=== PATIENT | female | born 1960 ===

== ENCOUNTER 2016-11-28 02:03 | Observation (INO) | payer BC ==
[2016-11-28 02:10] VITALS: BMI 22.6
[2016-11-28] MEDS ORDERED: Morphine 2 mg/ml ISec IVP STA ×2 (02:29→10:58)
[2016-11-28] MEDS ORDERED: Insulin Regular 1 UNITS/0.01 ML ML IVP STA ×2 (02:29→04:30)
[2016-11-28] MEDS ORDERED: Sodium Chloride 0.9% 1,000 ML IV SCH ×2 (02:30→15:00)
--- NOTE | 2016-11-28 02:46 | ED PDOC ---
Arrival/HPI - General Chief Complaint: High Blood Sugar Time Seen by Provider: 11/28/16 02:04 Historian: Patient - History of Present Illness Narrative History of Present Illness (Text): 11/28/16 02:47 A 55 year old female, whose past medical history includes diabetes and gastroparesis, brought in by EMS for abdominal pain with vomiting for one day. Patient also reports high blood sugar level. Patient notes epigastric pain but denies any other complaints at this time. Symptom Onset: Sudden Symptom Course: Unchanged Activities at Onset: Rest Context: Home Past Medical History - Provider Review Nursing Documentation Reviewed: Yes - Infectious Disease Hx of Infectious Diseases: None - Cardiac Hx Hypertension: Yes - Pulmonary Hx Respiratory Disorders: No - Neurological HX Cerebrovascular Accident: Yes (TIA) - HEENT Hx HEENT Disorder: (reading glasses) Hx Cataracts: Yes (bilateral sx) - Renal Hx Renal Disorder: No - Endocrine/Metabolic Hx Diabetes Mellitus Type 1: Yes - Hematological/Oncological Hx Blood Transfusions: Yes Hx Blood Transfusion Reaction: No - Integumentary Other/Comment: 10 wilbert to back of head - Musculoskeletal/Rheumatological Hx Musculoskeletal Disorders: Yes - Gastrointestinal Hx Gastroesophageal Reflux: Yes (had endo; lesions in the esophagus) Other/Comment: Diabetic Gastroparesis - Genitourinary/Gynecological Hx Genitourinary Disorders: No - Psychiatric Hx Psychophysiologic Disorder: Yes Hx Depression: Yes Hx Substance Use: No - Surgical History Other/Comment: Amputation of half the Rt. foot. - Anesthesia Hx Anesthesia: Yes Hx Anesthesia Reactions: No Hx Malignant Hyperthermia: No - Suicidal Assessment Feels Threatened In Home Enviroment: No Family/Social History - Physician Review Nursing Documentation Reviewed: Yes Family/Social History: No Known Family HX Smoking Status: Never Smoked Hx Alcohol Use: No Hx Substance Use: No Allergies/Home Meds Allergies/Adverse Reactions: Allergies No Known Allergies Allergy (Verified 07/13/16 08:06) Home Medications: Home Meds Medication Instructions Recorded Confirmed Lisinopril [Prinivil] 10 mg PO DAILY 09/23/15 11/28/16 Metoclopramide [Reglan] 5 mg PO BID 09/23/15 11/28/16 DULoxetine [Cymbalta] 60 mg PO DAILY 07/13/16 11/28/16 Insulin Lispro [humALOG] 0 units SC AC 07/13/16 11/28/16 Omeprazole 40 mg PO DAILY 07/13/16 11/28/16 chlordiazePOXIDE-Clinidium [Librax 1 cap PO BID 07/13/16 11/28/16 5 MG-2.5 MG] Amitriptyline [Elavil] 1 tab PO DAILY 11/28/16 11/28/16 Atorvastatin [Lipitor] 40 mg PO DAILY 11/28/16 11/28/16 Clopidogrel [Plavix] 75 mg PO DAILY 11/28/16 11/28/16 Furosemide [Lasix] 1 tab PO DAILY 11/28/16 11/28/16 Gabapentin [Neurontin] 100 mg PO TID 11/28/16 11/28/16 Isosorbide Mononitrate [Isosorbide 1 tab PO DAILY 11/28/16 11/28/16 Mononitrate ER] Labetalol [Trandate] 1 tab PO BID 11/28/16 11/28/16 Magnesium Oxide [Magox 400] 400 mg PO DAILY 11/28/16 11/28/16 Midodrine [Proamatine] 2.5 mg PO TID 11/28/16 11/28/16 Potassium Chloride [Klor-Con M10] 10 meq PO DAILY 11/28/16 11/28/16 traMADol [Ultram] 50 mg PO Q6H PRN 11/28/16 11/28/16 Review of Systems - Physician Review All systems were reviewed & negative as marked: Yes - Review of Systems Constitutional: Other (high blood sugar ) Respiratory: absent: SOB Gastrointestinal: Abdominal Pain, Vomiting Physical Exam Vital Signs Reviewed: Yes Vital Signs Temp Pulse Resp BP Pulse Ox 11/28/16 09:08 87 18 151/87 H 97 11/28/16 07:24 99 H 18 181/92 H 97 11/28/16 05:33 99 H 20 111/62 100 11/28/16 04:50 89 18 136/66 94 L 11/28/16 02:14 98.1 F 95 H 18 112/65 100 Temperature: Afebrile Blood Pressure: Normal Pulse: Regular Respiratory Rate: Normal Appearance: Positive for: Well-Appearing, Non-Toxic, Comfortable Pain Distress: None Mental Status: Positive for: Alert and Oriented X 3 Finger Stick Blood Glucose: 500 - Systems Exam Head: Present: Atraumatic, Normocephalic Pupils: Present: PERRL Extroacular Muscles: Present: EOMI Conjunctiva: Present: Normal Mouth: Present: Moist Mucous Membranes Neck: Present: Normal Range of Motion Respiratory/Chest: Present: Clear to Auscultation, Good Air Exchange. No: Respiratory Distress, Accessory Muscle Use Cardiovascular: Present: Regular Rate and Rhythm, Normal S1, S2. No: Murmurs Abdomen: Present: Normal Bowel Sounds. No: Tenderness, Distention, Peritoneal Signs Back: Present: Normal Inspection Upper Extremity: Present: Normal Inspection. No: Cyanosis, Edema Lower Extremity: Present: Normal Inspection. No: Edema Neurological: Present: GCS=15, CN II-XII Intact, Speech Normal Skin: Present: Warm, Dry, Normal Color. No: Rashes Psychiatric: Present: Alert, Oriented x 3, Normal Insight, Normal Concentration Medical Decision Making ED Course and Treatment: 11/28/16 02:42 Impression: A 55 year old female with abdominal pain and vomiting. Differential Diagnosis included but are not limited to: Plan: -- EKG -- chest xray -- labs -- Urinalysis -- Morphine, Protonix, Zofran, IV fluids, Humulin -- Reassess and disposition Prior Visits: Notes and results from previous visits were reviewed. Patient last reported to the emergency department on 08/03/16 for evaluation of possible stroke. Patient admitted to ICU under Dr. Gomez's service. Patient was discharged 08/05/16. Progress Notes:pt still complaining of if pain , medication administered pt became unresponsive , given narcan with improvement =case d/ w dr serna will admit to tele for intractable vomiting uncontrolled dm 12/02/16 20:15 - Lab Interpretations Microbiology Results: Microbiology Results 11/28/16 03:30 Blood-Venous Blood Culture - Preliminary NO GROWTH AFTER 4 DAYS 11/28/16 02:30 Blood-Venous Blood Culture - Preliminary NO GROWTH AFTER 4 DAYS Lab Results: 11/28/16 06:05 11/28/16 06:05 Lab Results 11/28/16 06:05: Sodium 136, Potassium 3.4 L, Chloride 93 L, Carbon Dioxide 29, Anion Gap 17, BUN 37 H, Creatinine 1.1, Est GFR ( Amer) > 60, Est GFR ( Non-Af Amer) 52, Random Glucose 411 H* D, Calcium 9.4 11/28/16 06:05: WBC 16.6 H, RBC 5.31, Hgb 13.9, Hct 40.3, MCV 75.9 L, MCH 26.2, MCHC 34.5, RDW 14.1, Plt Count 228, MPV 10.6, Gran % 85.2 H, Lymph % (Auto) 7.2 L, Ward % (Auto) 7.5 H, Eos % (Auto) 0.0 L, Baso % (Auto) 0.1, Gran # 14.11 H, Lymph # 1.2, Ward # 1.2 H, Eos # 0.0, Baso # 0.01 11/28/16 06:00: Serum Osmolality 330 H 11/28/16 06:00: Procalcitonin 0.17 L 11/28/16 05:40: POC Glucose (mg/dL) 394 H 11/28/16 05:28: pCO2 33 L, pO2 100.0, HCO3 30.2 H, ABG pH 7.57 H, ABG Total CO2 31.2 H, ABG O2 Saturation 95.6, ABG Base Excess 8.0 H, Glucose 410 H*, Lactate 1.6, Chloride 101.0 11/28/16 03:42: POC Glucose (mg/dL) 432 H* 11/28/16 02:55: Sodium 136, Potassium 3.5 L, Chloride 85 L, Carbon Dioxide 31, Anion Gap 24 H, BUN 36 H, Creatinine 1.0, Est GFR ( Amer) > 60, Est GFR ( Non-Af Amer) 58, Random Glucose 600 H*, Calcium 10.4, Total Bilirubin 0.7, AST 23, ALT 25, Alkaline Phosphatase 117, Troponin I 0.02 D, Total Protein 7.6, Albumin 4.6, Globulin 3.1, Albumin/Globulin Ratio 1.5, Lipase 47 11/28/16 02:55: WBC 15.1 H D, RBC 5.57, Hgb 15.3, Hct 43.1, MCV 77.4 L, MCH 27.5 , MCHC 35.5, RDW 13.9, Plt Count 254, MPV 10.5, Gran % 88.9 H, Lymph % (Auto) 7.4 L, Ward % (Auto) 3.6, Eos % (Auto) 0.0 L, Baso % (Auto) 0.1, Gran # 13.44 H , Lymph # 1.1 L, Ward # 0.5, Eos # 0.0, Baso # 0.01 11/28/16 02:06: POC Glucose (mg/dL) > 500 H* I have reviewed the lab results: Yes - RAD Interpretation Radiology Orders: 11/28/16 02:28 CHEST PORTABLE [RAD] Stat - EKG Interpretation Interpreted by ED Physician: Yes Type: 12 lead EKG - Medication Orders Current Medication Orders: Discontinued Medications Amitriptyline HCl (Elavil) 10 mg PO DAILY [facility] Last Admin: 11/28/16 11:26 Dose: Amitriptyline HCl (Elavil) 50 mg PO HS [facility] Last Admin: 11/28/16 22:52 Dose: 50 mg Dicyclomine HCl (Bentyl) 10 mg PO QID [facility] Last Admin: 11/29/16 14:12 Dose: 10 mg Gabapentin (Neurontin) 100 mg PO TID [facility] PRN Reason: Protocol Last Admin: 11/29/16 14:12 Dose: 100 mg Heparin Sodium (Porcine) (Heparin) 5,000 units SC Q8 [facility] PRN Reason: Protocol Last Admin: 11/29/16 14:12 Dose: 5,000 units Hydromorphone HCl (Dilaudid) 2 mg IVP STAT STA Stop: 11/28/16 04:23 Last Admin: 11/28/16 04:38 Dose: 2 mg Sodium Chloride (Sodium Chloride 0.9%) 1,000 mls @ 150 mls/hr IV .Q6H40M [facility] Last Admin: 11/28/16 02:43 Dose: 150 mls/hr Potassium Chloride (Potassium Chloride 20 Meq/100 Ml) 20 meq in 100 mls @ 50 mls/hr IVPB ONCE ONE Stop: 11/28/16 06:41 Last Admin: 11/28/16 06:02 Dose: 50 mls/hr Potassium Chloride 20 meq/ (Lactated Ringer's) 1,010 mls @ 200 mls/hr IV .Q5H3M [facility] Last Admin: 11/28/16 09:12 Dose: 200 mls/hr Sodium Chloride (Sodium Chloride 0.9%) 1,000 mls @ 125 mls/hr IV .Q8H [facility] Last Admin: 11/29/16 00:39 Dose: 125 mls/hr Ceftriaxone Sodium (Rocephin 1 Gram Ivpb) 1 gm in 100 mls @ 200 mls/hr IVPB STAT STA PRN Reason: Protocol Stop: 11/28/16 22:43 Last Admin: 11/29/16 00:39 Dose: 200 mls/hr Metronidazole (Flagyl) 500 mg in 100 mls @ 100 mls/hr IVPB STAT STA PRN Reason: Protocol Stop: 11/28/16 23:14 Last Admin: 11/28/16 22:51 Dose: 100 mls/hr Sodium Chloride (Sodium Chloride 0.9%) 1,000 mls @ 100 mls/hr IV .Q10H [facility] Last Admin: 11/29/16 09:28 Dose: 100 mls/hr Insulin Detemir (Levemir) [address] [facility] Last Admin: 11/29/16 00:34 Dose: Not Given Non-Admin Reason: Blood Sugar Parameter Insulin Human Lispro (Humalog Med) Confirm Administered Dose 3 units SC .STK- MED ONE Stop: 11/28/16 13:11 Insulin Human Lispro (Humalog Med) 0 units SC [facility] Last Admin: 11/29/16 12:31 Dose: 3 units Insulin Human Regular (Humulin R) 8 units IVP STAT STA Stop: 11/28/16 02:30 Last Admin: 11/28/16 02:41 Dose: 8 units Insulin Human Regular (Humulin R) 10 units IVP STAT STA Stop: 11/28/16 04:31 Last Admin: 11/28/16 04:59 Dose: 10 units Iohexol (Omnipaque 350 100 Ml) Confirm Administered Dose 350 mg .ROUTE .STK-MED ONE Stop: 11/28/16 07:32 Isosorbide Mononitrate (Imdur) 30 mg PO DAILY [facility] Last Admin: 11/29/16 09:27 Dose: 30 mg Metoclopramide HCl (Reglan) 5 mg PO BID [facility] Last Admin: 11/28/16 09:51 Dose: 5 mg Metoclopramide HCl (Reglan) 10 mg IVP ACHS [facility] Last Admin: 11/29/16 12:31 Dose: 10 mg Morphine Sulfate (Morphine) 2 mg IVP STAT STA Stop: 11/28/16 02:30 Last Admin: 11/28/16 02:42 Dose: 2 mg Morphine Sulfate (Morphine) 2 mg IM STAT STA Stop: 11/28/16 10:59 Morphine Sulfate (Morphine) 2 mg IVP Q4H PRN PRN Reason: moderate pain Last Admin: 11/29/16 06:10 Dose: 2 mg Morphine Sulfate (Morphine) 2 mg IVP STAT STA Stop: 11/28/16 10:59 Last Admin: 11/28/16 11:24 Dose: 2 mg Morphine Sulfate (Morphine) 1 mg IVP Q4H PRN PRN Reason: severe pain Last Admin: 11/29/16 12:31 Dose: 1 mg Re-Assess: [facility] Pain Assessment Document 11/29/16 13:31 MICHELLE (Rec: 11/29/16 14:05 MICHELLE [id number]) Pain Reassessment Is this a pain reassessment? Yes Sleep Is patient sleeping during reassessment? Yes Naloxone HCl (Narcan) Confirm Administered Dose 2 mg .ROUTE .STK-MED ONE Stop: 11/28/16 04:38 Last Admin: 11/28/16 04:59 Dose: 2 mg Naloxone HCl (Narcan) 0.4 mg IVP STAT STA Stop: 11/28/16 04:40 Last Admin: 11/28/16 04:59 Dose: Ondansetron HCl (Zofran Inj) 4 mg IVP STAT STA Stop: 11/28/16 02:29 Last Admin: 11/28/16 02:42 Dose: 4 mg Ondansetron HCl (Zofran Inj) 4 mg IVP STAT STA Stop: 11/28/16 04:23 Last Admin: 11/28/16 04:38 Dose: 4 mg Pantoprazole Sodium (Protonix Inj) 40 mg IVP ONCE STA Stop: 11/28/16 02:29 Last Admin: 11/28/16 02:41 Dose: 40 mg Pantoprazole Sodium (Protonix Inj) 40 mg IVP DAILY [facility] Last Admin: 11/29/16 11:11 Dose: 40 mg Tramadol HCl (Ultram) Confirm Administered Dose 50 mg .ROUTE .STK-MED ONE Stop: 11/28/16 18:43 Tramadol HCl (Ultram) 50 mg PO Q6H PRN PRN Reason: moderate pain Last Admin: 11/29/16 09:28 Dose: 50 mg Re-Assess: [facility] Pain Assessment Document 11/29/16 10:28 MICHELLE (Rec: 11/29/16 11:11 MICHELLE [id number]) Pain Reassessment Is this a pain reassessment? Yes Sleep Is patient sleeping during reassessment? Yes - Scribe Statement The provider has reviewed the documentation as recorded by the Scribe Charlene Khan Provider Scribe Attestation: All medical record entries made by the Scribe were at my direction and personally dictated by me. I have reviewed the chart and agree that the record accurately reflects my personal performance of the history, physical exam, medical decision making, and the department course for this patient. I have also personally directed, reviewed, and agree with the discharge instructions and disposition. Disposition/Present on Arrival - Present on Arrival Any Indicators Present on Arrival: No History of DVT/PE: No History of Uncontrolled Diabetes: No Urinary Catheter: No History of Decub. Ulcer: No History Surgical Site Infection Following: None - Disposition Have Diagnosis and Disposition been Completed?: Yes Diagnosis: Gastroparesis, Diabetes Disposition: HOSPITALIZED Disposition Time: 06:30 Condition: GOOD
[2016-11-28 03:19] LABS: BASO # 0.01 K/mm3 (0.0-2.0); BASO % 0.1 % (0.0-3.0); GRAN # 13.44 (1.4-6.5); GRAN % 88.9 % (50.0-68.0); HEMOGLOBIN 15.3 gm/dL (12.0-16.0); LYMPH # 1.1 (1.2-3.4); LYMPH % 7.4 % (22.0-35.0); MEAN CELL VOLUME 77.4 fL (80.0-105.0); MEAN CORPUSCULAR HEMOGLOBIN 27.5 pg (25.0-35.0); MEAN CORPUSCULAR HGB CONC 35.5 g/dl (31.0-37.0); MEAN PLATELET VOLUME 10.5 fl (7.0-11.0); MONO # 0.5 (0.1-0.6); MONO % 3.6 % (1.0-6.0); PLATELET COUNT 254 10^3/uL (120.0-450.0); RBC 5.57 10^6/uL (3.5-6.1); RED CELL DISTRIBUTION WIDTH 13.9 % (11.5-14.5); WHITE BLOOD COUNT 15.1 10^3/ul (4.5-11.0)
[2016-11-28 03:31] LABS: ALB/GLOB RATIO 1.5 (1.1-1.8); ALBUMIN 4.6 g/dL (3.0-4.8); ALT/SGPT 25 U/L (7-56); AST/SGOT 23 U/L (15-39); BLOOD UREA NITROGEN 36 mg/dL (7-21); CALCIUM 10.4 mg/dL (8.4-10.5); GFR AFRICAN-AMERICAN > 60; GFR NON-AFRICAN AMERICAN 58; LIPASE 47 U/L (23-300)
[2016-11-28 03:42] LABS: TROPONIN I 0.02 ng/mL
[2016-11-28] MEDS ORDERED: HYDROmorphone 2 mg/ml ISec IVP STA (04:22)
[2016-11-28] MEDS ORDERED: Naloxone 0.4 mg/ml Inj (Adult) ONE (04:37)
[2016-11-28] MEDS ORDERED: Naloxone 0.4 mg/ml Inj (Adult) IVP STA (04:39)
[2016-11-28 06:16] LABS: BASO # 0.01 K/mm3 (0.0-2.0); BASO % 0.1 % (0.0-3.0); GRAN # 14.11 (1.4-6.5); GRAN % 85.2 % (50.0-68.0); HEMOGLOBIN 13.9 gm/dL (12.0-16.0); LYMPH # 1.2 (1.2-3.4); LYMPH % 7.2 % (22.0-35.0); MEAN CELL VOLUME 75.9 fL (80.0-105.0); MEAN CORPUSCULAR HEMOGLOBIN 26.2 pg (25.0-35.0); MEAN CORPUSCULAR HGB CONC 34.5 g/dl (31.0-37.0); MEAN PLATELET VOLUME 10.6 fl (7.0-11.0); MONO # 1.2 (0.1-0.6); MONO % 7.5 % (1.0-6.0); PLATELET COUNT 228 10^3/uL (120.0-450.0); RBC 5.31 10^6/uL (3.5-6.1); RED CELL DISTRIBUTION WIDTH 14.1 % (11.5-14.5); WHITE BLOOD COUNT 16.6 10^3/ul (4.5-11.0)
[2016-11-28 06:24] LABS: BLOOD UREA NITROGEN 37 mg/dL (7-21); CALCIUM 9.4 mg/dL (8.4-10.5); GFR AFRICAN-AMERICAN > 60; GFR NON-AFRICAN AMERICAN 52
[2016-11-28] MEDS ORDERED: Lactated Ringer's 1,000 ML IV SCH (06:33)
[2016-11-28] MEDS ORDERED: Potassium Chloride 20 MEQ in Lactated Ringer's 1,000 ML IV SCH ×2 (06:43→07:15)
[2016-11-28] MEDS ORDERED: Iohexol 350 MG/100 ML VIAL ONE (07:31)
--- NOTE | 2016-11-28 08:02 | CP.PCM.PN ---
Subjective - Date & Time of Evaluation Date of Evaluation: 11/28/16 Time of Evaluation: 06:00 - Subjective Subjective: Assessment * Hyperglycemia * Contraction alkalosis, dehydration from hyperglycemia and possibly lasix, questionable syncope at home * h/o vomiting x1 day, with h/o gastroperisis * Chronic abd pain without acute worsening * Patient not tolerating high doses of opiods as needed in nor[place] in ER to reverse 2mg of iv dilaudid. * Prolong qtc from above Plan * IVF with potassium chloride currently LR with 20 of kcl, after initial bolus of 2 lit of NS and kcl 20meq * Continue levimir, received last dose around midnight * Q4 hr humolog coverage keep npo mean while for 12-24hrs * CT abd/pelvis * Repeat labs at noon. * GI/DVT prophylaxis * See orders for detail. Objective - Vital Signs/Intake and Output Vital Signs (last 24 hours): Temp Pulse Resp BP Pulse Ox 98.1 F 99 H 18 181/92 H 97 11/28/16 02:14 11/28/16 07:24 11/28/16 07:24 11/28/16 07:24 11/28/16 07:24 - Medications Medications: Current Medications Amitriptyline HCl (Elavil) 10 mg PO DAILY [facility] Gabapentin (Neurontin) 100 mg PO TID [facility] PRN Reason: Protocol Heparin Sodium (Porcine) (Heparin) 5,000 units SC Q8 [facility] PRN Reason: Protocol Potassium Chloride 20 meq/ (Lactated Ringer's) 1,010 mls @ 200 mls/hr IV .Q5H3M [facility] Insulin Detemir (Levemir) 32 unit SC HS [facility] Isosorbide Mononitrate (Imdur) 30 mg PO DAILY [facility] Metoclopramide HCl (Reglan) 5 mg PO BID [facility] Pantoprazole Sodium (Protonix Inj) 40 mg IVP DAILY [facility]
[2016-11-28 08:31] LABS: ARTERIAL BLOOD GAS HCO3 30.2 mmol/L (21-28); ARTERIAL BLOOD GAS O2 SAT 95.6 % (95-98); ARTERIAL BLOOD GAS PCO2 33 mm/Hg (35-45); ARTERIAL BLOOD GAS PH 7.57 (7.35-7.45); ARTERIAL BLOOD GAS TCO2 31.2 mmol.L (22-28)
--- NOTE | 2016-11-28 09:59 | CP.PCM.PN ---
Subjective - Date & Time of Evaluation Date of Evaluation: 11/28/16 Time of Evaluation: 08:30 - Subjective Subjective: Patient was in Cat scan,the corn lab technician called me to reinsert an iv line,as her line in the arm was infiltrated.She also had a hep lock in her neck which, according to the tech was not working. Pt was there to undergo a cat scan of the abdomen and pelvis with iv contrast. Objective - Vital Signs/Intake and Output Vital Signs (last 24 hours): Temp Pulse Resp BP Pulse Ox 98.1 F 87 18 151/87 H 97 11/28/16 02:14 11/28/16 09:08 11/28/16 09:08 11/28/16 09:08 11/28/16 09:08 - Medications Medications: Current Medications Amitriptyline HCl (Elavil) 10 mg PO DAILY [facility] Gabapentin (Neurontin) 100 mg PO TID [facility] PRN Reason: Protocol Heparin Sodium (Porcine) (Heparin) 5,000 units SC Q8 [facility] PRN Reason: Protocol Potassium Chloride 20 meq/ (Lactated Ringer's) 1,010 mls @ 200 mls/hr IV .Q5H3M [facility] Last Admin: 11/28/16 09:12 Dose: 200 mls/hr Insulin Detemir (Levemir) 32 unit SC HS [facility] Isosorbide Mononitrate (Imdur) 30 mg PO DAILY [facility] Metoclopramide HCl (Reglan) 5 mg PO BID [facility] Pantoprazole Sodium (Protonix Inj) 40 mg IVP DAILY [facility] - Constitutional Appears: No Acute Distress Assessment and Plan - Assessment and Plan (Free Text) Assessment: Poor venous access Plan: Two attempts made to insert hep lock in a peripheral vein were not successful. The line in her neck was checked,noted to be kinked.It was readjusted and found to be working Patient got her iv dye followed by Cat scan.
[2016-11-28] MEDS ORDERED: Morphine 2 mg/ml ISec IM STA (10:58)
--- NOTE | 2016-11-28 11:18 | RAD ---
HISTORY: hyperglycemia COMPARISON: 08/03/2016 FINDINGS: LUNGS: No active pulmonary disease. PLEURA: No significant pleural effusion identified, no pneumothorax apparent. CARDIOVASCULAR: Normal. OSSEOUS STRUCTURES: No significant abnormalities. VISUALIZED UPPER ABDOMEN: Normal. OTHER FINDINGS: None. IMPRESSION: No active disease. No significant interval change compared to the prior examination(s).
[2016-11-28 11:31] LABS: VENOUS BLOOD GAS BASE EXCESS 7.3 mmol/L (0.0-2.0); VENOUS BLOOD GAS PO2 43 mm/Hg (30-55); VENOUS BLOOD PH 7.38 (7.32-7.43)
[2016-11-28 11:34] LABS: ALB/GLOB RATIO 1.2 (1.1-1.8); ALBUMIN 3.6 g/dL (3.0-4.8); ALT/SGPT 26 U/L (7-56); AST/SGOT 20 U/L (15-39); BLOOD UREA NITROGEN 31 mg/dL (7-21); GFR AFRICAN-AMERICAN > 60; GFR NON-AFRICAN AMERICAN > 60; MAGNESIUM 1.5 mg/dL (1.7-2.2)
--- NOTE | 2016-11-28 11:37 | CT ---
PROCEDURE: CT Abdomen and Pelvis with contrast HISTORY: vomiting, hyperglycemia COMPARISON: 03/14/2016. CT abdomen and pelvis. TECHNIQUE: Contrast dose: 100 cc Omnipaque 350 Radiation dose: Total exam DLP = 343.02 mGy-cm. This CT exam was performed using one or more of the following dose reduction techniques: Automated exposure control, adjustment of the mA and/or kV according to patient size, and/or use of iterative reconstruction technique. FINDINGS: LOWER THORAX: Resolved infiltrates and atelectasis identified previously. Persistent distal esophageal thickening/ small hiatal hernia. LIVER: Unremarkable. No gross lesion or ductal dilatation. GALLBLADDER AND BILE DUCTS: Status post cholecystectomy. No abnormality is seen in the gallbladder fossa. L PANCREAS: Unremarkable. No gross lesion or ductal dilatation. SPLEEN: Unremarkable. ADRENALS: Unremarkable. No mass. KIDNEYS AND URETERS: Unremarkable. No hydronephrosis. No solid mass. Incidental finding(s): Bilateral renal cysts larger and more numerous cysts identified in the left kidney. VASCULATURE: Unremarkable. No aortic aneurysm. BOWEL: Findings consistent with partial colectomy. Remaining left hemicolon is within normal limits. No evidence of obstruction or free air. APPENDIX: Prior colonic resection includes appendectomy. PERITONEUM: Unremarkable. No free fluid. No free air. LYMPH NODES: Unremarkable. No enlarged lymph nodes. BLADDER: Unremarkable. REPRODUCTIVE: Unremarkable. BONES: No acute fracture. OTHER FINDINGS: None. IMPRESSION: No acute findings related to/accounting for the clinical presentation.
[2016-11-28 11:45] LABS: TROPONIN I 0.03 ng/mL
[2016-11-28] MEDS ORDERED: Insulin Lispro (humaLOG) MEDIUM Coverage SC ONE (13:10)
--- NOTE | 2016-11-28 20:15 | CARD ---
APPROVED REPORT EKG Measurement Heart [id number] <Conclusion> Sinus tachycardia Possible Left atrial enlargement Nonspecific ST and T wave abnormality Abnormal ECG
[2016-11-28] MEDS ORDERED: Insulin Detemir 100 units/ml Vial (Levemir) SC SCH (22:00)
[2016-11-28] MEDS ORDERED: cefTRIAXone 1 gm 1 GM/100 ML BAG IVPB STA (22:14)
[2016-11-28] MEDS ORDERED: metroNIDAZOLE IV 500 mg/100 ml 500 MG/100 ML BAG IVPB STA (22:15)
[2016-11-28] MEDS: Morphine 2 mg/ml ISec IVP PRN (22:52)
[2016-11-29] MEDS: Insulin Lispro (humaLOG) MEDIUM Coverage SC SCH ×3 (00:34→12:31)
[2016-11-29] MEDS: Morphine 2 mg/ml ISec IVP PRN (06:10)
[2016-11-29 06:51] VITALS: O2SAT 96
[2016-11-29 07:14] LABS: BASO # 0.01 K/mm3 (0.0-2.0); BASO % 0.1 % (0.0-3.0); EOS % 0.1 % (1.5-5.0); GRAN % 76.7 % (50.0-68.0); HEMOGLOBIN 11.7 gm/dL (12.0-16.0); LYMPH # 1.9 (1.2-3.4); LYMPH % 19.4 % (22.0-35.0); MEAN CELL VOLUME 79.1 fL (80.0-105.0); MEAN CORPUSCULAR HEMOGLOBIN 26.1 pg (25.0-35.0); MEAN PLATELET VOLUME 9.9 fl (7.0-11.0); MONO # 0.4 (0.1-0.6); MONO % 3.7 % (1.0-6.0); PLATELET COUNT 192 10^3/uL (120.0-450.0); RBC 4.49 10^6/uL (3.5-6.1); RED CELL DISTRIBUTION WIDTH 14.5 % (11.5-14.5); WHITE BLOOD COUNT 9.5 10^3/ul (4.5-11.0)
[2016-11-29] MEDS ORDERED: Morphine 2 mg/ml ISec IVP PRN (07:44)
[2016-11-29] MEDS ORDERED: Sodium Chloride 0.9% 1,000 ML IV SCH (09:06)
--- NOTE | 2016-11-29 11:57 | CP.PCM.CON ---
History of Present Illness - History of Present Illness History of Present Illness: Surgery for Dr. Blandon A 55 year old female, whose past medical history includes diabetes and gastroparesis, chronic abd pain brought in by EMS for abdominal pain with vomiting for since Wednesday. Patient also reports high blood sugar level. Glucose level at home was 500. It was 600 at the hospital. Pt reports that she is compliant with diabetic medications. Patient notes epigastric pain but denies any other complaints at this time. CT of abd shows bladder distension and ventral hernia. The patient denies F/C/CP, SOB, headache, or vision changes. PMH: HTN, DM, gastroparesis, orthostatic hypotension, esophageal ulcers PSH: R mid foot amputation in 2015, hysterectomy, L knee arthroscopy, , appendectomy and cholecystectomy Home meds: Gabapentin 100mg BID and 2 capsules at bedtime, Zofran 4mg PO QID, Bentyl 10mg a8h prn, Lisinopril 10mg BID, Cymbalta 60mg qd, Librax 5-25mg, Reglan 10mg TID before meals and prn at bedtime, Omeprazole 40mg daily, Arthrotec 50-0.2mg BID, Insulin sliding scale and Levemir 32U at bedtime. All: NKDA SH: Denies EtOH, drug or tobacco use, lives with family FH: Brother from [facility] PMD: Dr. Burnett in [place] GI: Dr. Brayan Andersen at [facility] Review of Systems - Review of Systems Review of Systems: See HPI Past Patient History - Infectious Disease Hx of Infectious Diseases: None - Past Social History Smoking Status: Never Smoked - CARDIAC Hx Hypertension: Yes - PULMONARY Hx Respiratory Disorders: No - NEUROLOGICAL HX Cerebrovascular Accident: Yes (TIA) - HEENT Hx HEENT Problems: (reading glasses) Hx Cataracts: Yes (bilateral sx) - RENAL Hx Chronic Kidney Disease: No - ENDOCRINE/METABOLIC Hx Diabetes Mellitus Type 1: Yes - HEMATOLOGICAL/ONCOLOGICAL Hx Blood Transfusions: Yes Hx Blood Transfusion Reaction: No - INTEGUMENTARY Other/Comment: 10 wilbert to back of head - MUSCULOSKELETAL/RHEUMATOLOGICAL Hx Musculoskeletal Disorders: Yes - GASTROINTESTINAL Hx Gastroesophageal Reflux: Yes (had endo; lesions in the esophagus) Other/Comment: Diabetic Gastroparesis - GENITOURINARY/GYNECOLOGICAL Hx Genitourinary Disorders: No - PSYCHIATRIC Hx Psychophysiologic Disorder: Yes Hx Depression: Yes Hx Substance Use: No - SURGICAL HISTORY Other/Comment: Amputation of half the Rt. foot. - ANESTHESIA Hx Anesthesia: Yes Hx Anesthesia Reactions: No Hx Malignant Hyperthermia: No Meds Allergies/Adverse Reactions: Allergies Allergy/AdvReac Type Severity Reaction Status Date / Time No Known Allergies Allergy Verified 07/13/16 08:06 - Medications Medications: Current Medications Amitriptyline HCl (Elavil) 50 mg PO [facility] Last Admin: 11/28/16 22:52 Dose: 50 mg Dicyclomine HCl (Bentyl) 10 mg PO QID [facility] Last Admin: 11/29/16 09:28 Dose: 10 mg Gabapentin (Neurontin) 100 mg PO TID [facility] PRN Reason: Protocol Last Admin: 11/29/16 09:27 Dose: 100 mg Heparin Sodium (Porcine) (Heparin) 5,000 units SC Q8 [facility] PRN Reason: Protocol Last Admin: 11/29/16 06:01 Dose: 5,000 units Sodium Chloride (Sodium Chloride 0.9%) 1,000 mls @ 100 mls/hr IV .Q10H [facility] Last Admin: 11/29/16 09:28 Dose: 100 mls/hr Insulin Detemir (Levemir) 32 unit SC [facility] Last Admin: 11/29/16 00:34 Dose: Not Given Insulin Human Lispro (Humalog Med) 0 units SC [facility] Last Admin: 11/29/16 09:30 Dose: Not Given Isosorbide Mononitrate (Imdur) 30 mg PO DAILY [facility] Last Admin: 11/29/16 09:27 Dose: 30 mg Metoclopramide HCl (Reglan) 10 mg IVP [facility] Last Admin: 11/29/16 09:30 Dose: 10 mg Morphine Sulfate (Morphine) 1 mg IVP Q4H PRN PRN Reason: severe pain Pantoprazole Sodium (Protonix Inj) 40 mg IVP DAILY [facility] Last Admin: 11/29/16 11:11 Dose: 40 mg Tramadol HCl (Ultram) 50 mg PO Q6H PRN PRN Reason: moderate pain Last Admin: 11/29/16 09:28 Dose: 50 mg Physical Exam - Constitutional Appears: Non-toxic, No Acute Distress - Head Exam Head Exam: ATRAUMATIC, NORMAL INSPECTION, NORMOCEPHALIC - Eye Exam Eye Exam: EOMI, Normal appearance, PERRL Pupil Exam: NORMAL ACCOMODATION, PERRL - ENT Exam ENT Exam: Mucous Membranes Moist, Normal Exam - Neck Exam Neck exam: Positive for: Normal Inspection - Respiratory Exam Respiratory Exam: Clear to Auscultation Bilateral, NORMAL BREATHING PATTERN - Cardiovascular Exam Cardiovascular Exam: REGULAR RHYTHM - GI/Abdominal Exam GI & Abdominal Exam: Normal Bowel Sounds, Soft, Tenderness. absent: Distended, Firm, Guarding, Rebound, Rigid Additional comments: Epigastric TTP - Exam Exam: NORMAL INSPECTION - Extremities Exam Extremities exam: Positive for: full ROM, normal inspection - Back Exam Back exam: NORMAL INSPECTION - Neurological Exam Neurological exam: Alert, CN II-XII Intact, Normal Gait, Oriented x3, Reflexes Normal - Psychiatric Exam Psychiatric exam: Normal Affect, Normal Mood - Skin Skin Exam: Dry, Intact, Normal Color, Warm Results - Vital Signs Recent Vital Signs: Last Vital Signs Temp 98.7 F 11/29/16 06:00 Pulse 80 11/29/16 06:00 Resp 20 11/29/16 06:00 BP 127/74 11/29/16 06:00 Pulse Ox 96 11/29/16 06:00 - Labs Result Diagrams: 11/29/16 06:30 11/28/16 11:15 Labs: Laboratory Results - last 24 hr 11/29/16 06:30 WBC 9.5 D RBC 4.49 Hgb 11.7 L Hct 35.5 L MCV 79.1 L MCH 26.1 MCHC 33.0 RDW 14.5 Plt Count 192 MPV 9.9 Gran % 76.7 H Lymph % (Auto) 19.[address] [place] % (Auto) 3.7 Eos % (Auto) 0.1 L Baso % (Auto) 0.1 Gran # 7.30 H Lymph # 1.9 [place] # 0.4 Eos # 0.0 Baso # 0.01 ESR 30 H Assessment & Plan - Assessment and Plan (Free Text) Assessment: Epigastric abd pain 2/[address] abd: bladder distension, ventral hernia -GI following -Nausea control: Zofran, Reglan, Bentyl -We will closely follow -Pain control: avoid opiats -Medical management : Glucose control -f/u Bladder scan: Savage Blandon
[2016-11-29 12:23] VITALS: BP 161/94; PULSE 98; RESP 18; TEMP 98.9
[2016-11-29 12:49] LABS: PH,URINE 6.5 (4.7-8.0); URINE BILIRUBIN NEGATIVE (NEGATIVE); URINE BLOOD SMALL (NEGATIVE); URINE GLUCOSE (UA) >=1000 mg/dL (NEGATIVE); URINE LEUKOCYTE ESTERASE NEGATIVE Leu/uL (NEGATIVE); URINE NITRATE NEGATIVE (NEGATIVE); URINE PROTEIN 100 mg/dL (<30 mg/dL); URINE UROBILINOGEN 0.2 E.U./dL (<1 E.U./dL)
[2016-11-29 12:52] LABS: URINE APPEARANCE CLEAR (CLEAR); URINE COLOR YELLOW (YELLOW)
[2016-11-29 12:53] LABS: URINE AMORPHOUS SEDIMENT TRACE
--- NOTE | 2016-11-29 15:13 | CP.PCM.DIS ---
<LiedaAl - Last Filed: 11/29/16 15:06> Provider - Provider Date of Admission: 11/28/16 06:28 Attending physician: Ani Gomez MD Primary care physician: Harry Burnett MD Consults: Dr. Burrows - GI Dr. Blandon - surgery Time Spent in preparation of Discharge (in minutes): 35 Diagnosis - Discharge Diagnosis (1) Diabetes Status: Chronic (2) Gastroparesis Status: Chronic Hospital Course - Lab Results Lab Results: Most Recent Lab Values WBC 9.5 10^3/ul (4.5-11.0) D 11/29/16 06:30 RBC 4.49 10^6/uL (3.5-6.1) 11/29/16 06:30 Hgb 11.7 gm/dL (12.0-16.0) L 11/29/16 06:30 Hct 35.5 % (36.0-48.0) L 11/29/16 06:30 MCV 79.1 fL (80.0-105.0) L 11/29/16 06:30 MCH 26.1 pg (25.0-35.0) 11/29/16 06:30 MCHC 33.0 g/dl (31.0-37.0) 11/29/16 06:30 RDW 14.5 % (11.5-14.5) 11/29/16 06:30 Plt Count 192 10^3/uL (120.0-450.0) 11/29/16 06:30 MPV 9.9 fl (7.0-11.0) 11/29/16 06:30 Gran % 76.7 % (50.0-68.0) H 11/29/16 06:30 Lymph % (Auto) 19.4 % (22.0-35.0) L 11/29/16 06:30 [place] % (Auto) 3.7 % (1.0-6.0) 11/29/16 06:30 Eos % (Auto) 0.1 % (1.5-5.0) L 11/29/16 06:30 Baso % (Auto) 0.1 % (0.0-3.0) 11/29/16 06:30 Gran # 7.30 (1.4-6.5) H 11/29/16 06:30 Lymph # 1.9 (1.2-3.4) 11/29/16 06:30 [place] # 0.4 (0.1-0.6) 11/29/16 06:30 Eos # 0.0 (0.0-0.7) 11/29/16 06:30 Baso # 0.01 K/mm3 (0.0-2.0) 11/29/16 06:30 ESR 30 mm/hr (0.0-20.0) H 11/29/16 06:30 pCO2 33 mm/Hg (35-45) L 11/28/16 05:28 pO2 43 mm/Hg (30-55) 11/28/16 11:20 HCO3 30.2 mmol/L (21-28) H 11/28/16 05:28 ABG pH 7.57 (7.35-7.45) H 11/28/16 05:28 ABG Total CO2 31.2 mmol.L (22-28) H 11/28/16 05:28 ABG O2 Saturation 95.6 % (95-98) 11/28/16 05:28 ABG Base Excess 8.0 mmol/L (-2.0-3.0) H 11/28/16 05:28 VBG pH 7.38 (7.32-7.43) 11/28/16 11:20 VBG pCO2 58.0 (40-60) 11/28/16 11:20 VBG HCO3 34.3 mmol/l (21-28) H 11/28/16 11:20 VBG Total CO2 36.1 mmol.L (22-28) H 11/28/16 11:20 VBG O2 Sat (Calc) 80.0 % (40-65) H 11/28/16 11:20 VBG Base Excess 7.3 mmol/L (0.0-2.0) H 11/28/16 11:20 VBG Potassium 4.0 mmol/L (3.6-5.2) 11/28/16 11:20 Sodium 137.0 mmol/L (132-148) 11/28/16 11:20 Chloride 98.0 mmol/L (98-107) 11/28/16 11:20 Glucose 273 mg/dl (65-105) H 11/28/16 11:20 Lactate 1.6 mmol/L (0.7-2.1) 11/28/16 11:20 FiO2 21.0 % 11/28/16 11:20 Sodium 136 mmol/L (132-148) 11/28/16 11:15 Potassium 4.0 mmol/L (3.6-5.0) 11/28/16 11:15 Chloride 95 mmol/L (98-107) L 11/28/16 11:15 Carbon Dioxide 31 mmol/L (21-33) 11/28/16 11:15 Anion Gap 14 (10-20) 11/28/16 11:15 BUN 31 mg/dL (7-21) H 11/28/16 11:15 Creatinine 0.9 mg/dL (0.5-1.4) 11/28/16 11:15 Est GFR ( Amer) > 60 11/28/16 11:15 Est GFR (Non-Af Amer) > 60 11/28/16 11:15 POC Glucose (mg/dL) 341 mg/dL (65-110) H 11/28/16 07:14 Random Glucose 261 mg/dL (70-110) H 11/28/16 11:15 Serum Osmolality 330 mosm/kg (271-296) H 11/28/16 06:00 Calcium 9.0 mg/dL (8.4-10.5) 11/28/16 11:15 Phosphorus 3.3 mg/dL (2.5-4.5) 11/28/16 11:15 Magnesium 1.5 mg/dL (1.7-2.2) L 11/28/16 11:15 Total Bilirubin 0.4 mg/dL (0.2-1.3) 11/28/16 11:15 AST 20 U/L (15-39) 11/28/16 11:15 ALT 26 U/L (7-56) 11/28/16 11:15 Alkaline Phosphatase 88 U/L (38-133) 11/28/16 11:15 Troponin I 0.03 ng/mL D 11/28/16 11:15 Total Protein 6.5 g/dL (5.8-8.3) 11/28/16 11:15 Albumin 3.6 g/dL (3.0-4.8) 11/28/16 11:15 Globulin 2.9 gm/dL 11/28/16 11:15 Albumin/Globulin Ratio 1.2 (1.1-1.8) 11/28/16 11:15 Lipase 47 U/L (23-300) 11/28/16 02:55 Procalcitonin 0.17 NG/ML (0.19-0.49) L 11/28/16 06:00 Venous Blood Potassium 4.0 mmol/L (3.6-5.2) 11/28/16 11:20 Urine Color Yellow (YELLOW) 11/29/16 12:40 Urine Appearance Clear (CLEAR) 11/29/16 12:40 Urine pH 6.5 (4.7-8.0) 11/29/16 12:40 Ur Specific [place] 1.020 (1.005-1.035) 11/29/16 12:40 Urine Protein 100 mg/dL (<30 mg/dL) H 11/29/16 12:40 Urine Glucose (UA) >=1000 mg/dL (NEGATIVE) 11/29/16 12:40 Urine Ketones Trace mg/dL (NEGATIVE) H 11/29/16 12:40 Urine Blood Small (NEGATIVE) H 11/29/16 12:40 Urine Nitrate Negative (NEGATIVE) 11/29/16 12:40 Urine Bilirubin Negative (NEGATIVE) 11/29/16 12:40 Urine Urobilinogen 0.2 E.U./dL (<1 E.U./dL) 11/29/16 12:40 Ur Leukocyte Esterase Negative Jennifer/uL (NEGATIVE) 11/29/16 12:40 Urine RBC 10 - 15 /hpf (0-2) 11/29/16 12:40 Urine WBC 5 - 10 /hpf (0-6) 11/29/16 12:40 Ur Epithelial Cells 10 - 12 /hpf (0-5) 11/29/16 12:40 Amorphous Sediment Trace 11/29/16 12:40 - Hospital Course Hospital Course: This is a 55 y/o female presenting with nausea and vomiting. Patient had elevated blood sugar on arrival - >500 with a small anion gap which improved with IVF. This was determined to be due to HHS which resolved. The patient has a history of diabetic gastroparesis with chronic abdominal pain. The patient was evaluated by GI who determined this was not an acute condition. CT abd did not reveal acute findings. Surgery evaluated the patient and determined the patient's presentation to be due to chronic gastroparesis. Patient's pain was controlled. She tolerated a soft diet. She is instructed that she will need to eat small meals. We attempted to reach her GI doctor - Dr. Andersen and spoke with a covering physician who will convey to Dr. Andersen that Ms. Monaco was seen here as an inpatient. She is instructed to see Dr. Andersen within 3 to 4 days of discharge. We will continue Bentyl, Reglan. Patient will go home with a rx for ciprofloxacin and flagyl. Discharge Exam - Head Exam Head Exam: ATRAUMATIC, NORMAL INSPECTION, NORMOCEPHALIC - Eye Exam Eye Exam: EOMI, PERRL - ENT Exam ENT Exam: Mucous Membranes Moist - Respiratory Exam Respiratory Exam: Clear to PA & Lateral. absent: Rales, Rhonchi, Wheezes - GI/Abdominal Exam GI & Abdominal Exam: absent: Distended, Firm, Guarding, Tenderness - Extremities Exam Extremities exam: full ROM, pedal pulses present - Neurological Exam Neurological exam: Alert, Oriented x3 - Psychiatric Exam Psychiatric exam: Normal Affect, Normal Mood - Skin Skin Exam: Dry, Warm Discharge Plan - Discharge Medications Prescriptions: Ciprofloxacin [Cipro] 500 mg PO BID #7 tab Dicyclomine [Bentyl] 10 mg PO QID #30 cap metroNIDAZOLE [Flagyl] 500 mg PO TID #10 tab - Follow Up Plan Condition: GOOD Disposition: HOME/ ROUTINE Instructions: Diabetic Gastroparesis (GEN), Diabetes Mellitus Type 2 in Adults (GEN) Additional Instructions: Please see Dr. Andersen on Wednesday. Please see your primary care physician within one week for further management of your chronic health problems. You will be discharged on two antibiotics. Please take these as prescribed for a total of 3 days. Referrals: Harry Burnett MD [Primary Care Provider] - <Marily Proctor - Last Filed: 11/29/16 18:39> Provider - Provider Date of Admission: 11/28/16 06:28 Attending physician: Ani Gomez MD Primary care physician: Harry Burnett MD Hospital Course - Lab Results Lab Results: Most Recent Lab Values WBC 9.5 10^3/ul (4.5-11.0) D 11/29/16 06:30 RBC 4.49 10^6/uL (3.5-6.1) 11/29/16 06:30 Hgb 11.7 gm/dL (12.0-16.0) L 11/29/16 06:30 Hct 35.5 % (36.0-48.0) L 11/29/16 06:30 MCV 79.1 fL (80.0-105.0) L 11/29/16 06:30 MCH 26.1 pg (25.0-35.0) 11/29/16 06:30 MCHC 33.0 g/dl (31.0-37.0) 11/29/16 06:30 RDW 14.5 % (11.5-14.5) 11/29/16 06:30 Plt Count 192 10^3/uL (120.0-450.0) 11/29/16 06:30 MPV 9.9 fl (7.0-11.0) 11/29/16 06:30 Gran % 76.7 % (50.0-68.0) H 11/29/16 06:30 Lymph % (Auto) 19.4 % (22.0-35.0) L 11/29/16 06:30 [place] % (Auto) 3.7 % (1.0-6.0) 11/29/16 06:30 Eos % (Auto) 0.1 % (1.5-5.0) L 11/29/16 06:30 Baso % (Auto) 0.1 % (0.0-3.0) 11/29/16 06:30 Gran # 7.30 (1.4-6.5) H 11/29/16 06:30 Lymph # 1.9 (1.2-3.4) 11/29/16 06:30 [place] # 0.4 (0.1-0.6) 11/29/16 06:30 Eos # 0.0 (0.0-0.7) 11/29/16 06:30 Baso # 0.01 K/mm3 (0.0-2.0) 11/29/16 06:30 ESR 30 mm/hr (0.0-20.0) H 11/29/16 06:30 pCO2 33 mm/Hg (35-45) L 11/28/16 05:28 pO2 43 mm/Hg (30-55) 11/28/16 11:20 HCO3 30.2 mmol/L (21-28) H 11/28/16 05:28 ABG pH 7.57 (7.35-7.45) H 11/28/16 05:28 ABG Total CO2 31.2 mmol.L (22-28) H 11/28/16 05:28 ABG O2 Saturation 95.6 % (95-98) 11/28/16 05:28 ABG Base Excess 8.0 mmol/L (-2.0-3.0) H 11/28/16 05:28 VBG pH 7.38 (7.32-7.43) 11/28/16 11:20 VBG pCO2 58.0 (40-60) 11/28/16 11:20 VBG HCO3 34.3 mmol/l (21-28) H 11/28/16 11:20 VBG Total CO2 36.1 mmol.L (22-28) H 11/28/16 11:20 VBG O2 Sat (Calc) 80.0 % (40-65) H 11/28/16 11:20 VBG Base Excess 7.3 mmol/L (0.0-2.0) H 11/28/16 11:20 VBG Potassium 4.0 mmol/L (3.6-5.2) 11/28/16 11:20 Sodium 137.0 mmol/L (132-148) 11/28/16 11:20 Chloride 98.0 mmol/L (98-107) 11/28/16 11:20 Glucose 273 mg/dl (65-105) H 11/28/16 11:20 Lactate 1.6 mmol/L (0.7-2.1) 11/28/16 11:20 FiO2 21.0 % 11/28/16 11:20 Sodium 136 mmol/L (132-148) 11/28/16 11:15 Potassium 4.0 mmol/L (3.6-5.0) 11/28/16 11:15 Chloride 95 mmol/L (98-107) L 11/28/16 11:15 Carbon Dioxide 31 mmol/L (21-33) 11/28/16 11:15 Anion Gap 14 (10-20) 11/28/16 11:15 BUN 31 mg/dL (7-21) H 11/28/16 11:15 Creatinine 0.9 mg/dL (0.5-1.4) 11/28/16 11:15 Est GFR ( Amer) > 60 11/28/16 11:15 Est GFR (Non-Af Amer) > 60 11/28/16 11:15 POC Glucose (mg/dL) 341 mg/dL (65-110) H 11/28/16 07:14 Random Glucose 261 mg/dL (70-110) H 11/28/16 11:15 Serum Osmolality 330 mosm/kg (271-296) H 11/28/16 06:00 Calcium 9.0 mg/dL (8.4-10.5) 11/28/16 11:15 Phosphorus 3.3 mg/dL (2.5-4.5) 11/28/16 11:15 Magnesium 1.5 mg/dL (1.7-2.2) L 11/28/16 11:15 Total Bilirubin 0.4 mg/dL (0.2-1.3) 11/28/16 11:15 AST 20 U/L (15-39) 11/28/16 11:15 ALT 26 U/L (7-56) 11/28/16 11:15 Alkaline Phosphatase 88 U/L (38-133) 11/28/16 11:15 Troponin I 0.03 ng/mL D 11/28/16 11:15 Total Protein 6.5 g/dL (5.8-8.3) 11/28/16 11:15 Albumin 3.6 g/dL (3.0-4.8) 11/28/16 11:15 Globulin 2.9 gm/dL 11/28/16 11:15 Albumin/Globulin Ratio 1.2 (1.1-1.8) 11/28/16 11:15 Lipase 47 U/L (23-300) 11/28/16 02:55 Procalcitonin 0.17 NG/ML (0.19-0.49) L 11/28/16 06:00 Venous Blood Potassium 4.0 mmol/L (3.6-5.2) 11/28/16 11:20 Urine Color Yellow (YELLOW) 11/29/16 12:40 Urine Appearance Clear (CLEAR) 11/29/16 12:40 Urine pH 6.5 (4.7-8.0) 11/29/16 12:40 Ur Specific [place] 1.020 (1.005-1.035) 11/29/16 12:40 Urine Protein 100 mg/dL (<30 mg/dL) H 11/29/16 12:40 Urine Glucose (UA) >=1000 mg/dL (NEGATIVE) 11/29/16 12:40 Urine Ketones Trace mg/dL (NEGATIVE) H 11/29/16 12:40 Urine Blood Small (NEGATIVE) H 11/29/16 12:40 Urine Nitrate Negative (NEGATIVE) 11/29/16 12:40 Urine Bilirubin Negative (NEGATIVE) 11/29/16 12:40 Urine Urobilinogen 0.2 E.U./dL (<1 E.U./dL) 11/29/16 12:40 Ur Leukocyte Esterase Negative Jennifer/uL (NEGATIVE) 11/29/16 12:40 Urine RBC 10 - 15 /hpf (0-2) 11/29/16 12:40 Urine WBC 5 - 10 /hpf (0-6) 11/29/16 12:40 Ur Epithelial Cells 10 - 12 /hpf (0-5) 11/29/16 12:40 Amorphous Sediment Trace 11/29/16 12:40 Attending/Attestation - Attestation I have personally seen and examined this patient.: Yes I have fully participated in the care of the patient.: Yes I have reviewed all pertinent clinical information, including history, physical exam and plan: Yes Notes (Text): 11/29/16 18:37 patient seen and examined at bedside. vitals, labs and overnight issues reviewed. She feels significantly better and reports improvement in her abdominal symptoms and nausea. Surgery and GI notes reviewed. Medications titrated to PO and diet advanced as tolerated. Agree with the remainder of the discharge plan outlined by the resident and explained to the patient in detail.
--- NOTE | 2016-12-01 22:59 | CP.PCM.HP ---
<MercedesShashi ordonez - Last Filed: 12/02/16 00:52> History of Present Illness - History of Present Illness History of Present Illness: H&P note for the date of 11/28/16 cc: Intractable nausea/vomiting HPI: Patient is a 55yo female with past medical history of IDDM, gastroparesis, esophageal ulcers and orthostatic hypotension that presents c/o nausea and vomiting for the past 2 days. Patient reported that she had been feeling unwell for approximately 3 days prior to presentation and had been unable to tolerate oral intake. She had been nauseous and experiencing nonbilious, nonbloody vomiting for 2 days associated with epigastric abdominal pain. She reported that the abdominal pain was exacerbated by the vomiting. Patient stated that she had not been entirely complaint with her diabetes medications, often missing doses. She denied chest pain, palpitations, SOB, focal weakness, numbness, tingling. 12point ROS as per HPI above, otherwise negative PMHx: HTN, DM, gastroparesis, orthostatic hypotension, esophageal ulcers PSHx: R mid foot amputation in 2014, hysterectomy, L knee arthroscopy, C- section and cholecystectomy Allergies: NKDA Social Hx: Denies alcohol, tobacco and illicit drug use; lives with her family who were present at bedside Family Hx: Brother from [place] Present on Admission - Present on Admission Any Indicators Present on Admission: Yes History of Uncontrolled Diabetes: Yes Past Patient History - Infectious Disease Hx of Infectious Diseases: None - Past Social History Smoking Status: Never Smoked - CARDIAC Hx Hypertension: Yes - PULMONARY Hx Respiratory Disorders: No - NEUROLOGICAL HX Cerebrovascular Accident: Yes (TIA) - HEENT Hx HEENT Problems: (reading glasses) Hx Cataracts: Yes (bilateral sx) - RENAL Hx Chronic Kidney Disease: No - ENDOCRINE/METABOLIC Hx Diabetes Mellitus Type 1: Yes - HEMATOLOGICAL/ONCOLOGICAL Hx Blood Transfusions: Yes Hx Blood Transfusion Reaction: No - INTEGUMENTARY Other/Comment: 10 wilbert to back of head - MUSCULOSKELETAL/RHEUMATOLOGICAL Hx Musculoskeletal Disorders: Yes - GASTROINTESTINAL Hx Gastroesophageal Reflux: Yes (had endo; lesions in the esophagus) Other/Comment: Diabetic Gastroparesis - GENITOURINARY/GYNECOLOGICAL Hx Genitourinary Disorders: No - PSYCHIATRIC Hx Psychophysiologic Disorder: Yes Hx Depression: Yes Hx Substance Use: No - SURGICAL HISTORY Other/Comment: Amputation of half the Rt. foot. - ANESTHESIA Hx Anesthesia: Yes Hx Anesthesia Reactions: No Hx Malignant Hyperthermia: No Meds Home Medications: Home Medication List Medication Instructions Recorded Confirmed Type Ciprofloxacin [Cipro] 500 mg PO BID #7 tab 11/29/16 Rx Dicyclomine [Bentyl] 10 mg PO QID #30 cap 11/29/16 Rx metroNIDAZOLE [Flagyl] 500 mg PO TID #10 tab 11/29/16 Rx traMADol [Ultram] 50 mg PO Q6H PRN tab 11/29/16 Rx Allergies/Adverse Reactions: Allergies Allergy/AdvReac Type Severity Reaction Status Date / Time No Known Allergies Allergy Verified 07/13/16 08:06 Physical Exam - Constitutional Appears: Non-toxic, No Acute Distress - Head Exam Head Exam: ATRAUMATIC, NORMAL INSPECTION, NORMOCEPHALIC - Eye Exam Eye Exam: EOMI, PERRL - ENT Exam ENT Exam: Mucous Membranes Dry - Neck Exam Neck exam: Positive for: Normal Inspection. Negative for: Lymphadenopathy, Thyromegaly - Respiratory Exam Respiratory Exam: Clear to Auscultation Bilateral. absent: Rales, Rhonchi, Wheezes - Cardiovascular Exam Cardiovascular Exam: +S1, +S2. absent: Gallop, Rubs, Systolic Murmur - GI/Abdominal Exam GI & Abdominal Exam: Soft, Tenderness. absent: Distended, Firm, Guarding, Rigid - Neurological Exam Neurological exam: Alert, Oriented x3 - Psychiatric Exam Psychiatric exam: Normal Affect, Normal Mood - Skin Skin Exam: Dry, Intact, Normal Color, Warm Results - Vital Signs Recent Vital Signs: Last Vital Signs Temp 98.9 F 11/29/16 12:00 Pulse 98 H 11/29/16 14:00 Resp 18 11/29/16 12:00 BP 161/94 H 11/29/16 12:00 Pulse Ox 96 11/29/16 06:00 - Labs Result Diagrams: 11/29/16 06:30 11/28/16 11:15 Assessment & Plan - Assessment and Plan (Free Text) Plan: 55yo female with history of IDDM, gastroparesis admitted for hyperosmolar hyperglycemic state 1. Hyperosmolar hyperglycemic state -Glucose of 600 on presentation with normal bicarb and anion gap of 20 -Contraction alkalosis with pH of 7.57 and serum osmolarity of 330 secondary to intravascular volume depletion -Patient vigorously hydrated with IVF with potassium repletion -Given 18u of insulin in the ED -Continue levemir 32u HS followed by addition of sliding scale when patient able to tolerate PO intake -Fingersticks q4h -Telemetry monitoring -Monitor and replete electrolytes as needed -CT abd/pelvis revealed no acute findings (see full report) -NPO 2. Gastroparesis -Continue home reglan -Zofran PRN for nausea/vomiting 3. Orthostatic hypotension -Continue home midodrine 4. GI/DVT Prophylaxis -Protonix/heparin SC Patient seen and case discussed with attending, Dr. Gonzalez - Date & Time Date: 11/28/16 Time: 06:00 <Anson Gonzalez P - Last Filed: 12/03/16 06:40> Results - Vital Signs Recent Vital Signs: Last Vital Signs Temp 98.9 F 11/29/16 12:00 Pulse 98 H 11/29/16 14:00 Resp 18 11/29/16 12:00 BP 161/94 H 11/29/16 12:00 Pulse Ox 96 11/29/16 06:00 - Labs Result Diagrams: 11/29/16 06:30 11/28/16 11:15 Attending/Attestation - Attestation I have personally seen and examined this patient.: Yes I have fully participated in the care of the patient.: Yes I have reviewed all pertinent clinical information: Yes
== END 2016-11-29 16:08 | disposition home or self-care (01) ==
LOC: ED 02:03 → ERH 06:28 → INTOOBSV 06:28 → ERH 06:58 → 2RNO 09:23
PROVIDERS: ADMIT Internal Medicine; ATTEND Internal Medicine
DX: E10.43 Type 1 diabetes mellitus with diabetic autonomic (poly)neuropathy (principal); E87.3 Alkalosis; E10.65 Type 1 diabetes mellitus with hyperglycemia; K31.84 Gastroparesis; E86.0 Dehydration; G89.29 Other chronic pain; R10.9 Unspecified abdominal pain; I10 Essential (primary) hypertension; K21.9 Gastro-esophageal reflux disease without esophagitis; K43.9 Ventral hernia without obstruction or gangrene; Z79.02 Long term (current) use of antithrombotics/antiplatelets; Z79.4 Long term (current) use of insulin; Z79.899 Other long term (current) drug therapy; Z82.3 Family history of stroke; Z86.73 Personal history of transient ischemic attack (TIA), and cerebral infarction without residual deficits; Z87.19 Personal history of other diseases of the digestive system; F32.89 Other specified depressive episodes; Z98.42 Cataract extraction status, left eye; Z98.41 Cataract extraction status, right eye; I95.1 Orthostatic hypotension
CPT/HCPCS: 36415; 71010; 74177; 80053; 81001; 82803; 82948; 83690; 83735; 83930; 84100; 84145; 84484; 85025; 85651; 87040; 87086; 93005; 96365; 96367; 96372; 96375; 96376; 99285; C9113; G0378; J0696; J1170; J1644; J2270; J2310; J2405; J2765; J3480; J7040; J7120; Q9967

== ENCOUNTER 2016-12-31 14:42 | Observation (INO) | payer BC ==
[2016-12-31 14:45] VITALS: BMI 27.4
--- NOTE | 2016-12-31 14:50 | ED PDOC ---
Arrival/HPI - General Time Seen by Provider: 12/31/16 14:44 Historian: Patient - Critical Care Critical Care Minutes: 30 minutes - History of Present Illness Narrative History of Present Illness (Text): 12/31/16 14:44 Ting Monaco is a 56 year old female brought in by EMS, whose past medical history includes multiple CVAs and TIAs, hypertension, diabetes, and partial right leg amputation, who presents to the Emergency department complaining of stroke with symptoms beginning around 14:20. Patient's daughter states that patient began to have AMS, slight left-sided facial droop and left arm weakness. Upon arrival, EMS confirmed symptoms and found patient's glucose level to be 180's.. Patient's daughters states that family gave patient glucose this morning after checking glucose levels. In Emergency department, EMS notes that patient is more alert and cooperative during exam in the ER. Patient's family also notes that patient had a TPA in [facility] last month. No other complaints were presented at this time. Time/Duration: Prior to Arrival Symptom Onset: Sudden Symptom Course: Unchanged Activities at Onset: Rest Context: Home Past Medical History - Provider Review Nursing Documentation Reviewed: Yes - Infectious Disease Hx of Infectious Diseases: None - Cardiac Hx Hypertension: Yes - Pulmonary Hx Respiratory Disorders: No - Neurological HX Cerebrovascular Accident: Yes (TIA) - HEENT Hx HEENT Disorder: (reading glasses) Hx Cataracts: Yes (bilateral sx) - Renal Hx Renal Disorder: No - Endocrine/Metabolic Hx Diabetes Mellitus Type 1: Yes - Hematological/Oncological Hx Blood Transfusions: Yes Hx Blood Transfusion Reaction: No - Integumentary Other/Comment: 10 wilbert to back of head - Musculoskeletal/Rheumatological Hx Musculoskeletal Disorders: Yes - Gastrointestinal Hx Gastroesophageal Reflux: Yes (had endo; lesions in the esophagus) Other/Comment: Diabetic Gastroparesis - Genitourinary/Gynecological Hx Genitourinary Disorders: No - Psychiatric Hx Psychophysiologic Disorder: Yes Hx Depression: Yes Hx Substance Use: No - Surgical History Other/Comment: Amputation of half the Rt. foot. - Anesthesia Hx Anesthesia: Yes Hx Anesthesia Reactions: No Hx Malignant Hyperthermia: No - Suicidal Assessment Feels Threatened In Home Enviroment: No Family/Social History - Physician Review Nursing Documentation Reviewed: Yes Family/Social History: No Known Family HX Smoking Status: Never Smoked Hx Alcohol Use: No Hx Substance Use: No Allergies/Home Meds Allergies/Adverse Reactions: Allergies No Known Allergies Allergy (Verified 12/31/16 15:14) Home Medications: Home Meds Medication Instructions Recorded Confirmed Lisinopril [Prinivil] 10 mg PO DAILY 09/23/15 11/28/16 Metoclopramide [Reglan] 5 mg PO BID 09/23/15 11/28/16 DULoxetine [Cymbalta] 60 mg PO DAILY 07/13/16 11/28/16 Insulin Lispro [humALOG] 0 units SC AC 07/13/16 11/28/16 Omeprazole 40 mg PO DAILY 07/13/16 11/28/16 chlordiazePOXIDE-Clinidium [Librax 1 cap PO BID 07/13/16 11/28/16 5 MG-2.5 MG] Amitriptyline [Elavil] 1 tab PO DAILY 11/28/16 11/28/16 Atorvastatin [Lipitor] 40 mg PO DAILY 11/28/16 11/28/16 Clopidogrel [Plavix] 75 mg PO DAILY 11/28/16 11/28/16 Furosemide [Lasix] 1 tab PO DAILY 11/28/16 11/28/16 Gabapentin [Neurontin] 100 mg PO TID 11/28/16 11/28/16 Isosorbide Mononitrate [Isosorbide 1 tab PO DAILY 11/28/16 11/28/16 Mononitrate ER] Labetalol [Trandate] 1 tab PO BID 11/28/16 11/28/16 Magnesium Oxide [Magox 400] 400 mg PO DAILY 11/28/16 11/28/16 Midodrine [Proamatine] 2.5 mg PO TID 11/28/16 11/28/16 Potassium Chloride [Klor-Con M10] 10 meq PO DAILY 11/28/16 11/28/16 traMADol [Ultram] 50 mg PO Q6H PRN 11/28/16 11/28/16 Review of Systems - Review of Systems Constitutional: Normal Eyes: Normal ENT: Normal Respiratory: Normal Cardiovascular: Normal Gastrointestinal: Normal Genitourinary Female: Normal Musculoskeletal: Normal Skin: Normal Neurological: Focal Weakness, Facial Droop Endocrine: Normal Hemo/Lymphatic: Normal Psychiatric: Normal Physical Exam Vital Signs Reviewed: Yes Vital Signs Temp Pulse Resp BP Pulse Ox 12/31/16 15:09 97.1 F L 97 H 16 154/89 H 99 12/31/16 14:50 97.7 F 90 18 154/89 H 98 Temperature: Afebrile Blood Pressure: Hypertensive Pulse: Regular Respiratory Rate: Normal Appearance: Positive for: Well-Appearing, Non-Toxic, Comfortable Pain Distress: None Mental Status: Positive for: Alert and Oriented X 3 - Systems Exam Head: Present: Other (Left-sided facial droop) Pupils: Present: PERRL Extroacular Muscles: Present: EOMI Conjunctiva: Present: Normal Mouth: Present: Moist Mucous Membranes Neck: Present: Normal Range of Motion Respiratory/Chest: Present: Clear to Auscultation, Good Air Exchange. No: Respiratory Distress, Accessory Muscle Use Cardiovascular: Present: Regular Rate and Rhythm, Normal S1, S2. No: Murmurs Abdomen: Present: Normal Bowel Sounds. No: Tenderness, Distention, Peritoneal Signs Back: Present: Normal Inspection Upper Extremity: Present: Other (Left arm weakness, left arm drift) Lower Extremity: Present: Normal Inspection. No: Edema Neurological: Present: GCS=15, CN II-XII Intact, Speech Normal, Other (Left arm weakness, left arm drift) Skin: Present: Warm, Dry, Normal Color. No: Rashes Psychiatric: Present: Alert, Normal Insight, Normal Concentration. No: Oriented x 3 (confused) Medical Decision Making ED Course and Treatment: 12/31/16 14:44 Impression: 56 year old female complaining of a stroke with symptoms beginning around 14:20. Differential Diagnosis included but are not limited to: r/o CVA Plan: -- EKG -- Chest X-ray -- CT Head and Neck -- Head CT w/o contrast -- Type and Screen -- Labs -- Reassess and disposition Prior Visits: Notes and results from previous visits were reviewed. Patient last seen in the ED on 11/28/16 for abdominal pain with associated vomiting for one day. Progress Notes: EKG: Ordered, reviewed, and independently interpreted the EKG. Rate : 95 BPM Rhythm : NSR Interpretation : ST changes. Inferior lateral leads. T wave inversions Comparison : T wave inversions changes from 11/28/16 12/31/16 14:44 Code Stroke called on patient. 12/31/16 14:[address] Knight, who is aware and states to conduct STAT CTA head and neck. Notes that creatinine levels were normal when patient was here in November. 12/31/16 15:33 Patient's symptoms completely resolved. Case discussed with Dr. Knight after CT results. NIHSS now zero. He agrees that there is no indication for TPA at this time due to spontaneous quick resolution of symptoms. Will admit for TIA. Dr. Rodney nor Dr. Chisholm will accept this case. Case will go to Hospitalist. In reviewing the chart, Dr. Knight and I agreed that patient needs a Psych consult as well. I placed a consult r/o Kelli[facility]. - Critical Care Critical Care Minutes: 30 minutes - Lab Interpretations Lab Results: 12/31/16 15:26 12/31/16 15:26 Lab Results 12/31/16 15:26: Sodium 137, Potassium 3.8, Chloride 93 L, Carbon Dioxide 36 H, Anion Gap 12, BUN 16, Creatinine 0.8, Est GFR ( Amer) > 60, Est GFR (Non- Af Amer) > 60, Random Glucose 109, Calcium 9.3, Total Bilirubin 0.5, AST 22, ALT 25, Alkaline Phosphatase 99, Troponin I < 0.01 D, Total Protein 6.4, Albumin 3.4, Globulin 3.0, Albumin/Globulin Ratio 1.1, Triglycerides 110, Cholesterol 207 H, LDL Cholesterol Direct 132 H, HDL Cholesterol 54 12/31/16 15:26: PT 10.8, INR 1.00, APTT 24.5 12/31/16 15:26: WBC 7.9, RBC 4.71, Hgb 12.9, Hct 37.0, MCV 78.6 L, MCH 27.4, MCHC 34.9, RDW 14.1, Plt Count 292, MPV 9.1, Gran % 75.5 H, Lymph % (Auto) 16.8 L, Jerome % (Auto) 5.6, Eos % (Auto) 1.8, Baso % (Auto) 0.3, Gran # 5.96, Lymph # 1.3, Jerome # 0.4, Eos # 0.1, Baso # 0.02 I have reviewed the lab results: Yes - RAD Interpretation Radiology Orders: 12/31/16 14:45 HEAD W/O (CODE STROKE) [CT] Stat 12/31/16 14:49 CTA HEAD & NECK BUNDLE [CT] Stat 12/31/16 14:50 CHEST PORTABLE [RAD] Stat - Medication Orders Current Medication Orders: Discontinued Medications Aspirin (Aspirin) 325 mg PO STAT STA Stop: 12/31/16 15:33 Last Admin: 12/31/16 15:42 Dose: 325 mg Iodixanol (Visipaque) Confirm Administered Dose 150 ml IV .STK-MED ONE Stop: 12/31/16 14:56 NIHSS Scale ([place]) Time Performed: 15:01 - How Severe is the Stoke Baseline Level of Consciousness: 0=Alert LOC to Questions: 0=Both comments correct LOC to commands: 0=Obeys both correctly Best Gaze: 0=Normal Visual: 1=Partial hemianopia Facial: 0=Normal Motor Arm - Left: 1=Drift noted before 10 sec Motor Arm - Right: 0=No drift Motor Leg - Left: 0=No drift Motor Leg - Right: 0=No drift Limb Ataxia: 1=Present Upper or Lower Sensory: 0=Normal Best Language: 0=No aphasia Dysarthia: 0=Normal articulation Extinction & Inattention (Neglect): 0=Normal, no object Score: 3 Risk Level: Minor Stroke Risk NIHSS Scale([place]) 2 Time Performed: 15:20 - How Severe is the Stoke Baseline Level of Consciousness: 0=Alert LOC to Questions: 0=Both comments correct LOC to commands: 0=Obeys both correctly Best Gaze: 0=Normal Visual: 0=No visual loss Facial: 0=Normal Motor Arm - Left: 0=No drift Motor Arm - Right: 0=No drift Motor Leg - Left: 0=No drift Motor Leg - Right: 0=No drift Limb Ataxia: 0=Absent Sensory: 0=Normal Best Language: 0=No aphasia Dysarthia: 0=Normal articulation Extinction & Inattention (Neglect): 0=Normal, no object Score: 0 Risk Level: No Stroke Risk - Scribe Statement The provider has reviewed the documentation as recorded by the Naa Olivas Provider Scribe Attestation: All medical record entries made by the Scribe were at my direction and personally dictated by me. I have reviewed the chart and agree that the record accurately reflects my personal performance of the history, physical exam, medical decision making, and the department course for this patient. I have also personally directed, reviewed, and agree with the discharge instructions and disposition. Disposition/Present on Arrival - Present on Arrival Any Indicators Present on Arrival: No History of DVT/PE: No History of Uncontrolled Diabetes: No Urinary Catheter: No History Surgical Site Infection Following: None - Disposition Have Diagnosis and Disposition been Completed?: Yes Diagnosis: TIA (transient ischemic attack) Disposition: HOSPITALIZED Disposition Time: 15:35 Patient Plan: Observation Patient Problems: Current Active Problems Problem Status Onset TIA (transient ischemic attack) Acute Condition: GUARDED
[2016-12-31] MEDS ORDERED: Iodixanol 320 mg/ml 150 ml Bottle IV ONE (14:55)
--- NOTE | 2016-12-31 15:00 | CT ---
PROCEDURE: CT HEAD WITHOUT CONTRAST. HISTORY: r/o cva COMPARISON: None available. TECHNIQUE: Axial computed tomography images were obtained through the head/brain without intravenous contrast. Radiation dose: Total exam DLP = 677.45 mGy-cm. This CT exam was performed using one or more of the following dose reduction techniques: Automated exposure control, adjustment of the mA and/or kV according to patient size, and/or use of iterative reconstruction technique. FINDINGS: HEMORRHAGE: No intracranial hemorrhage. BRAIN: No mass effect or edema. No atrophy or chronic microvascular ischemic changes. VENTRICLES: Unremarkable. No hydrocephalus. CALVARIUM: Unremarkable. PARANASAL SINUSES: Unremarkable as visualized. No significant inflammatory changes. MASTOID AIR CELLS: Unremarkable as visualized. No inflammatory changes. OTHER FINDINGS: None. IMPRESSION: Normal CT of the Head. No evidence of acute infarct. No intracranial mass or hemorrhage. These findings were discussed by telephone with Dr. Dean at 2:58 p.m. on 12/31/2016.
[2016-12-31 15:14] VITALS: TEMP 97.1
[2016-12-31 15:36] LABS: BASO # 0.02 K/mm3 (0.0-2.0); BASO % 0.3 % (0.0-3.0); EOS # 0.1 (0.0-0.7); EOS % 1.8 % (1.5-5.0); GRAN # 5.96 (1.4-6.5); GRAN % 75.5 % (50.0-68.0); HEMOGLOBIN 12.9 gm/dL (12.0-16.0); LYMPH # 1.3 (1.2-3.4); LYMPH % 16.8 % (22.0-35.0); MEAN CELL VOLUME 78.6 fL (80.0-105.0); MEAN CORPUSCULAR HEMOGLOBIN 27.4 pg (25.0-35.0); MEAN CORPUSCULAR HGB CONC 34.9 g/dl (31.0-37.0); MEAN PLATELET VOLUME 9.1 fl (7.0-11.0); MONO # 0.4 (0.1-0.6); MONO % 5.6 % (1.0-6.0); PLATELET COUNT 292 10^3/uL (120.0-450.0); RBC 4.71 10^6/uL (3.5-6.1); RED CELL DISTRIBUTION WIDTH 14.1 % (11.5-14.5); WHITE BLOOD COUNT 7.9 10^3/ul (4.5-11.0)
[2016-12-31 15:45] LABS: PARTIAL THROMBOPLASTIN TIME 24.5 Seconds (23.7-30.8); PROTHROMBIN TIME 10.8 Seconds (9.9-11.8)
[2016-12-31 15:54] LABS: ALB/GLOB RATIO 1.1 (1.1-1.8); ALBUMIN 3.4 g/dL (3.0-4.8); ALT/SGPT 25 U/L (7-56); AST/SGOT 22 U/L (15-39); BLOOD UREA NITROGEN 16 mg/dL (7-21); CALCIUM 9.3 mg/dL (8.4-10.5); GFR AFRICAN-AMERICAN > 60; GFR NON-AFRICAN AMERICAN > 60; HDL CHOLESTEROL 54 mg/dL (29-60)
[2016-12-31 16:05] LABS: LDL CHOLESTEROL 132 mg/dL (0-129)
[2016-12-31 16:11] LABS: TROPONIN I < 0.01 ng/mL
--- NOTE | 2016-12-31 16:30 | CT ---
PROCEDURE: CT Angiography of the Brain. HISTORY: r/o cva COMPARISON: None available. TECHNIQUE: CT angiography of the intracranial arteries was performed. Coronal and sagittal maximum intensity projection reformated images were generated. This CT exam was performed using one or more of the following dose reduction techniques: Automated exposure control, adjustment of the mA and/or kV according to patient size, and/or use of iterative reconstruction technique. FINDINGS: INTERNAL CEREBRAL ARTERIES: Unremarkable. The skull base, petrous, cavernous and supraclinoid segments are bilaterally widely patient. ANTERIOR CEREBRAL ARTERIES: Unremarkable. A1 and A2 segments are widely patent. Smaller distal branches unremarkable, as visualized. MIDDLE CEREBRAL ARTERIES: Unremarkable. M1 and M2 segments are widely patent. Perisylvian branches grossly symmetric. POSTERIOR CIRCULATION: Basilar Artery: Unremarkable. Distal Vertebral Arteries: Unremarkable. Posterior Cerebral Arteries: Unremarkable. Posterior Inferior Cerebellar Arteries: Unremarkable. ANEURYSM/ VASCULAR MALFORMATIONS: None. OTHER FINDINGS: None. IMPRESSION: Unremarkable CT Angiography of the Brain. PROCEDURE: CT Angiography of the neck with contrast HISTORY: r/o cva COMPARISON: None available. TECHNIQUE: Contiguous axial images of the neck were obtained from the level of the skull-base to the superior mediastinum in the arteriographic phase of enhancement. Coronal and sagittal reformats or also generated. IV contrast dose: 150 cc of Visipaque Radiation Dose - DLP: 492 mGy-cm This CT exam was performed using one or more of the following dose reduction techniques: Automated exposure control, adjustment of the mA and/or kV according to patient size, and/or use of iterative reconstruction technique. FINDINGS: RIGHT CAROTID ARTERIES: Common Carotid Artery: Normal. Carotid Bifurcation: Normal. Internal Carotid Artery:Normal. External Carotid Artery (proximal branches): Normal. LEFT CAROTID ARTERIES: Common Carotid Artery: Normal. Carotid Bifurcation: Normal. Internal Carotid Artery:Normal. External Carotid Artery (proximal branches): Normal. VERTEBRAL ARTERIES: Right Vertebral Artery: Normal. Left Vertebral Artery: Normal. OTHER FINDINGS: The findings were discussed with Dr. Dean at 4:20 p.m. IMPRESSION: Normal CT Angiography of the neck.
--- NOTE | 2016-12-31 16:43 | RAD ---
HISTORY: cva COMPARISON: 11/28/2016 FINDINGS: LUNGS: No active pulmonary disease. PLEURA: No significant pleural effusion identified, no pneumothorax apparent. CARDIOVASCULAR: Normal. OSSEOUS STRUCTURES: No significant abnormalities. VISUALIZED UPPER ABDOMEN: Normal. OTHER FINDINGS: None. IMPRESSION: No active disease.
[2016-12-31 18:16] VITALS: RESP 18; O2SAT 95
[2016-12-31 19:21] LABS: HEMOGLOBIN 12.7 gm/dL (12.0-16.0); MEAN CELL VOLUME 78.7 fL (80.0-105.0); MEAN CORPUSCULAR HEMOGLOBIN 27.4 pg (25.0-35.0); MEAN CORPUSCULAR HGB CONC 34.8 g/dl (31.0-37.0); RBC 4.64 10^6/uL (3.5-6.1); RED CELL DISTRIBUTION WIDTH 14.1 % (11.5-14.5); WHITE BLOOD COUNT 9.4 10^3/ul (4.5-11.0)
[2016-12-31 19:38] LABS: MAGNESIUM 1.6 mg/dL (1.7-2.2)
[2016-12-31 19:57] VITALS: BP 145/86
--- NOTE | 2016-12-31 21:48 | CP.PCM.HP ---
<Hemant Abarca - Last Filed: 12/31/16 21:49> History of Present Illness - History of Present Illness History of Present Illness: 56 F with past medical history includes multiple CVAs and TIAs (TPA 2-3 weeks ago) , hypertension, diabetes, and partial right leg amputation, who presents to the ED complaining of L sided facial droop and L sided weakness. Pt states that her symptoms began 2-3 hours prior to arrival. Patient's daughter at bedside states that She right away called the EMS. Upon arrival of the EMS pt became completely altered and unresponsive. Upon arrival, EMS confirmed symptoms and found patient's glucose level to be 180's. In the ED the pt symptoms have currently fully resolved. No weakness of ext or facial droop. No other complaints were presented at this time. Denies any mars, dizziness, f/c, sob, cp, abd pain, n/v/d. PMHx: DM, HTN,gastroparesis, orthostatic hypotn, esophageal ulcers PSHx: R mid foot amputation (2014) , hysterectomy, L knee arthroscopy, C- section and cholecystectomy Allergies: NKDA Social Hx: Denies alcohol, smoking and illicit drug use+ Family Hx: Brother from CVA Present on Admission - Present on Admission Any Indicators Present on Admission: No Review of Systems - Review of Systems All systems: reviewed and no additional remarkable complaints except (HPI) Past Patient History - Infectious Disease Hx of Infectious Diseases: None - Past Social History Smoking Status: Never Smoked - CARDIAC Hx Hypertension: Yes - PULMONARY Hx Respiratory Disorders: No - NEUROLOGICAL HX Cerebrovascular Accident: Yes (TIA) - HEENT Hx HEENT Problems: (reading glasses) Hx Cataracts: Yes (bilateral sx) - RENAL Hx Chronic Kidney Disease: No - ENDOCRINE/METABOLIC Hx Diabetes Mellitus Type 1: Yes - HEMATOLOGICAL/ONCOLOGICAL Hx Blood Transfusions: Yes Hx Blood Transfusion Reaction: No - INTEGUMENTARY Other/Comment: 10 wilbert to back of head - MUSCULOSKELETAL/RHEUMATOLOGICAL Hx Musculoskeletal Disorders: Yes - GASTROINTESTINAL Hx Gastroesophageal Reflux: Yes (had endo; lesions in the esophagus) Other/Comment: Diabetic Gastroparesis - GENITOURINARY/GYNECOLOGICAL Hx Genitourinary Disorders: No - PSYCHIATRIC Hx Psychophysiologic Disorder: Yes Hx Depression: Yes Hx Substance Use: No - SURGICAL HISTORY Other/Comment: Amputation of half the Rt. foot. - ANESTHESIA Hx Anesthesia: Yes Hx Anesthesia Reactions: No Hx Malignant Hyperthermia: No Meds Allergies/Adverse Reactions: Allergies Allergy/AdvReac Type Severity Reaction Status Date / Time No Known Allergies Allergy Verified 12/31/16 15:14 Physical Exam - Constitutional Appears: No Acute Distress - Head Exam Head Exam: ATRAUMATIC, NORMAL INSPECTION, NORMOCEPHALIC - Eye Exam Eye Exam: EOMI, Normal appearance, PERRL Pupil Exam: NORMAL ACCOMODATION, PERRL - ENT Exam ENT Exam: Mucous Membranes Moist, Normal Exam - Neck Exam Neck exam: Positive for: Normal Inspection - Respiratory Exam Respiratory Exam: Clear to Auscultation Bilateral, NORMAL BREATHING PATTERN. absent: Rales, Wheezes - Cardiovascular Exam Cardiovascular Exam: REGULAR RHYTHM, RRR, +S1, +S2 - GI/Abdominal Exam GI & Abdominal Exam: Normal Bowel Sounds, Soft. absent: Tenderness - Extremities Exam Extremities exam: Positive for: normal inspection. Negative for: calf tenderness - Back Exam Back exam: NORMAL INSPECTION - Neurological Exam Neurological exam: Alert, CN II-XII Intact, Oriented x3 - Psychiatric Exam Psychiatric exam: Normal Affect, Normal Mood - Skin Skin Exam: Dry, Intact, Normal Color, Warm Results - Vital Signs Recent Vital Signs: Last Vital Signs Temp 97.1 F L 12/31/16 15:09 Pulse 96 H 12/31/16 19:50 Resp 18 12/31/16 16:42 BP 145/86 12/31/16 19:50 Pulse Ox 95 12/31/16 16:42 - Labs Result Diagrams: 12/31/16 19:18 12/31/16 15:26 Labs: Laboratory Results - last 24 hr 12/31/16 12/31/16 12/31/16 19:18 19:18 19:18 WBC 9.4 RBC 4.64 Hgb 12.7 Hct 36.5 MCV 78.7 L MCH 27.4 MCHC 34.8 RDW 14.1 Plt Count 274 MPV 9.0 Phosphorus 4.1 Magnesium 1.6 L TSH 3rd Generation 0.38 L Assessment & Plan - Assessment and Plan (Free Text) Assessment: 56 F with past medical history includes multiple CVAs and TIAs (TPA 2-3 weeks ago) , hypertension, diabetes, and partial right leg amputation, who presents to the ED complaining of L sided facial droop and L sided weakness. 1. TIA - Head CT and CTA unremarkable for any acute intracranial abnormality - Aspirin 325mg stat given in the ED - Neurology consulted for recs - Aspirin 81mg daily - Lipitor 40 daily - F/u Carotid and vert a US - Daily labs 2. DM: - Cont home Levemir - ISS Humulin as protocol - ACHS 3. HTN - Cont lisinopril 4. Neuropathy - Cont home Neurontin 5. Psych hx - Cont Amitriptyline - psych consulted for recs 6. GI/DVT ppx - Protonix and SCds - Passed bedside swallow eval - HHD Case and plan was reviewed and discussed in detail with Dr Gordillo. <Jose Guadalupe Gordillo - Last Filed: 01/01/17 07:46> Results - Vital Signs Recent Vital Signs: Last Vital Signs Temp 97.1 F L 12/31/16 22:10 Pulse 79 01/01/17 06:00 Resp 18 12/31/16 22:10 BP 145/86 12/31/16 22:10 Pulse Ox 95 12/31/16 16:42 - Labs Result Diagrams: 12/31/16 19:18 12/31/16 15:26 Labs: Laboratory Results - last 24 hr 12/31/16 12/31/16 12/31/16 19:18 19:18 19:18 WBC 9.4 RBC 4.64 Hgb 12.7 Hct 36.5 MCV 78.7 L MCH 27.4 MCHC 34.8 RDW 14.1 Plt Count 274 MPV 9.0 POC Glucose (mg/dL) Phosphorus 4.1 Magnesium 1.6 L TSH 3rd Generation 0.38 L 12/31/16 21:38 WBC RBC Hgb Hct MCV MCH MCHC RDW Plt Count MPV POC Glucose (mg/dL) 152 H Phosphorus Magnesium TSH 3rd Generation Attending/Attestation - Attestation I have personally seen and examined this patient.: Yes I have fully participated in the care of the patient.: Yes I have reviewed all pertinent clinical information: Yes Notes (Text): 12/31/16 56 year old female with past medical history of TIA/CVA, hypertension, diabetes , and gastroparesis who presented with complaint of left sides facial droop and left sided weakness which have resolved. CT head and CT head and neck were negative for acute findings. She is on aspirin and statin. Neurology evaluation and PT evaluation were requested. Psychiatry evaluation is also requested. Continue with home medications for hypertension and diabetes. She reports chronic epigastric pain which she attributes to gastroparesis. Continue with diet as tolerated. Continue with protonix. Serial cardiac enzymes are ordered. Jose Guadalupe Gordillo MD Hospitalist.
[2016-12-31] MEDS: Insulin Reg-LOW-Coverage SC SCH (21:56)
[2016-12-31] MEDS ORDERED: Insulin Detemir 100 units/ml Vial (Levemir) SC SCH (22:00)
[2016-12-31] MEDS ORDERED: Pneumococcal 23-Valent Vaccine IM ONE (22:21)
--- NOTE | 2017-01-01 00:44 | CON ---
DATE: 12/31/2016 HISTORY OF PRESENT ILLNESS: This is a 56-year-old female who had a past medical history of hypertension, diabetes, partial right foot amputation and multiple CVAs. Came to the hospital with unable to move left upper extremity and left facial droop. On arrival, her glucose was found to be more than 180. Patient's daughter is at beside and called to evaluate the patient. PAST MEDICAL HISTORY: Multiple CVA, hypertension, diabetes, right foot amputation. ALLERGIES: No known drug allergies. HOME MEDICATIONS: Lisinopril, metoclopramide, Cymbalta, insulin, omeprazole, amitriptyline, atorvastatin, Plavix, Lasix, Neurontin. REVIEW OF SYSTEMS: 10-point review of system was negative. PHYSICAL EXAMINATION VITAL SIGNS: Blood pressure 154/89. HEENT: Normocephalic, atraumatic. NECK: Supple. NEURO EXAM: Alert, awake, oriented x3. Cranial nerves II through XII were tested. Pupils reactive. EOM intact. Visual field full. No facial asymmetry. Tongue midline. Motor examination; moves all the extremities equally. Tone normal. Deep tendon reflexes 1+. Both plantars are downgoing. Sensory appears intact. Gait deferred. IMPRESSION: This is a 56-year-old female with transient ischemic attacks. CAT scan of the head was negative and we will do carotid Dopplers, start aspirin. We will follow up. Juan Manuel Knight MD
[2017-01-01 07:19] VITALS: PULSE 79
[2017-01-01] MEDS ORDERED: Pantoprazole 40 mg EC Tab PO SCH (07:30)
[2017-01-01] MEDS: Insulin Reg-LOW-Coverage SC SCH ×3 (07:50→17:18)
[2017-01-01 08:18] LABS: BASO # 0.01 K/mm3 (0.0-2.0); BASO % 0.1 % (0.0-3.0); EOS # 0.1 (0.0-0.7); EOS % 1.3 % (1.5-5.0); GRAN # 4.98 (1.4-6.5); GRAN % 72.9 % (50.0-68.0); HEMOGLOBIN 13.2 gm/dL (12.0-16.0); LYMPH # 1.4 (1.2-3.4); LYMPH % 20.3 % (22.0-35.0); MEAN CELL VOLUME 79.6 fL (80.0-105.0); MEAN CORPUSCULAR HEMOGLOBIN 27.2 pg (25.0-35.0); MEAN CORPUSCULAR HGB CONC 34.1 g/dl (31.0-37.0); MEAN PLATELET VOLUME 9.1 fl (7.0-11.0); MONO # 0.4 (0.1-0.6); MONO % 5.4 % (1.0-6.0); PLATELET COUNT 271 10^3/uL (120.0-450.0); RBC 4.86 10^6/uL (3.5-6.1); RED CELL DISTRIBUTION WIDTH 14.3 % (11.5-14.5); WHITE BLOOD COUNT 6.8 10^3/ul (4.5-11.0)
[2017-01-01 08:27] LABS: ALB/GLOB RATIO 1.4 (1.1-1.8); ALBUMIN 3.6 g/dL (3.0-4.8); ALT/SGPT 28 U/L (7-56); AST/SGOT 21 U/L (15-39); BLOOD UREA NITROGEN 21 mg/dL (7-21); CALCIUM 9.3 mg/dL (8.4-10.5); GFR AFRICAN-AMERICAN > 60; GFR NON-AFRICAN AMERICAN 51
[2017-01-01 08:43] LABS: FREE T4 1.59 ng/dL (0.78-2.19)
--- NOTE | 2017-01-01 09:03 | CARD ---
APPROVED REPORT EKG Measurement Heart [id number] <Conclusion> Sinus rhythm with premature atrial complexes Possible Left atrial enlargement ST & T wave abnormality, consider inferolateral ischemia, increased since ECG 11/28/16 Prolonged QT
[2017-01-01] MEDS ORDERED: Magnesium Oxide 400 mg Tab UD PO SCH (10:00)
--- NOTE | 2017-01-01 10:33 | CP.PCM.PN ---
<Max Bach - Last Filed: 01/01/17 17:53> Subjective - Date & Time of Evaluation Date of Evaluation: 01/01/17 Time of Evaluation: 10:31 - Subjective Subjective: Neurology Progress Note Pt seen and examined at bedside. Pt doing well overnight with no acute events. Pt currently has no complaints, states all her symptoms from previous day are gone. Denies CP, SOB, N/V/D, fever, dizziness, headache, weakness. Objective - Vital Signs/Intake and Output Vital Signs (last 24 hours): Temp Pulse Resp BP Pulse Ox 97.1 F L 79 18 145/86 95 12/31/16 22:10 01/01/17 06:00 12/31/16 22:10 12/31/16 22:10 12/31/16 16:42 Intake and Output: 01/01/17 01/01/17 06:59 18:59 Intake Total 0 Balance 0 - Medications Medications: Current Medications Amitriptyline HCl (Elavil) 10 mg PO DAILY [facility] Last Admin: 01/01/17 09:55 Dose: 10 mg Aspirin (Aspirin Chewable) 81 mg PO DAILY [facility] Last Admin: 01/01/17 09:55 Dose: 81 mg Atorvastatin Calcium (Lipitor) 40 mg PO DAILY [facility] Last Admin: 01/01/17 09:54 Dose: 40 mg Gabapentin (Neurontin) 100 mg PO TID [facility] PRN Reason: Protocol Last Admin: 01/01/17 09:55 Dose: 100 mg Insulin Detemir (Levemir) 32 unit SC HS [facility] Last Admin: 12/31/16 22:00 Dose: 32 unit Insulin Human Regular (Humulin R Low) 0 units SC ACHS [facility] PRN Reason: Protocol Last Admin: 01/01/17 07:50 Dose: Not Given Magnesium Oxide (Mag-Ox) 400 mg PO DAILY [facility] Last Admin: 01/01/17 09:55 Dose: 400 mg Pantoprazole Sodium (Protonix Ec Tab) 40 mg PO ACB [facility] Last Admin: 01/01/17 08:10 Dose: 40 mg Tramadol HCl (Ultram) 50 mg PO Q6H PRN PRN Reason: Pain, Mild (1-3) Last Admin: 12/31/16 20:43 Dose: 50 mg - Labs Labs: 01/01/17 07:45 01/01/17 07:45 PT 10.8 Seconds (9.9-11.8) 12/31/16 15:26 INR 1.00 (0.93-1.08) 12/31/16 15:26 APTT 24.5 Seconds (23.7-30.8) 12/31/16 15:26 - Constitutional Appears: Well, No Acute Distress - Head Exam Head Exam: ATRAUMATIC, NORMAL INSPECTION, NORMOCEPHALIC - ENT Exam ENT Exam: Mucous Membranes Moist - Respiratory Exam Respiratory Exam: Clear to Ausculation Bilateral, NORMAL BREATHING PATTERN. absent: Rales, Rhonchi - Cardiovascular Exam Cardiovascular Exam: RRR, +S1, +S2 - GI/Abdominal Exam GI & Abdominal Exam: Soft, Normal Bowel Sounds. absent: Tenderness - Neurological Exam Neurological Exam: Alert, Awake, CN II-XII Intact, Oriented x3. absent: Motor Sensory Deficit Neuro motor strength exam: Left Upper Extremity: 5, Right Upper Extremity: 5, Left Lower Extremity: 5, Right Lower Extremity: 5 Additional comments: No facial droop - Psychiatric Exam Psychiatric exam: Normal Affect, Normal Mood - Skin Skin Exam: Intact, Normal Color, Warm Assessment and Plan - Assessment and Plan (Free Text) Plan: 56 y/o F with PMH of multiple CVAs and TIAs (TPA 2-3 weeks ago),DM, HTN, and partial right leg amputation presented initially with TIA. Pt now asymptomatic with complete resolution of symptoms. Previous HgA1c is 10.2, indicating poor control of diabetes. Pt will continue current medical mangement along with ASA and Lipitor for further stroke prevention. Pt will have carotid dopplers and Brain MRI ordered. Plan: - Carotid Dopplers and Brain MRI pending - Continue ASA and Lipitor - Strict glucose control, goal glucose between 140-180 Isreal, PGY-2 <Jose Knight - Last Filed: 01/02/17 11:39> Objective - Vital Signs/Intake and Output Vital Signs (last 24 hours): Temp Pulse Resp BP Pulse Ox 97.1 F L 79 18 145/86 95 12/31/16 22:10 01/01/17 06:00 12/31/16 22:10 12/31/16 22:10 12/31/16 16:42 - Labs Labs: 01/01/17 07:45 01/01/17 07:45 PT 10.8 Seconds (9.9-11.8) 12/31/16 15:26 INR 1.00 (0.93-1.08) 12/31/16 15:26 APTT 24.5 Seconds (23.7-30.8) 12/31/16 15:26 Attending/Attestation - Attestation I have personally seen and examined this patient.: Yes I have fully participated in the care of the patient.: Yes I have reviewed all pertinent clinical information, including history, physical exam and plan: Yes
[2017-01-01] MEDS ORDERED: Insulin Detemir 100 units/ml Vial (Levemir) SC SCH (10:57)
[2017-01-01] MEDS ORDERED: Potassium Chloride 20 mEq ER Tab PO STA (10:58)
--- NOTE | 2017-01-01 11:21 | MRI ---
PROCEDURE: MRI BRAIN WITHOUT CONTRAST HISTORY: tia COMPARISON: 08/04/2016 TECHNIQUE: Multiplanar, multisequence MR images of the brain were obtained without intravenous contrast enhancement. FINDINGS: HEMORRHAGE: None DWI: No evidence of an acute or early subacute infarction. BRAIN PARENCHYMA: No mass effect or edema. No atrophy or chronic microvascular ischemic changes. VENTRICLES: Unremarkable. No hydrocephalus. CRANIUM: Unremarkable. ORBITS: Grossly unremarkable. PARANASAL SINUSES/MASTOIDS: Clear VASCULAR SYSTEM: Skull base flow voids intact. OTHER FINDINGS: None. IMPRESSION: Unremarkable non contrast enhanced MRI of the brain.
[2017-01-01 12:37] LABS: TROPONIN I < 0.01 ng/mL
--- NOTE | 2017-01-01 13:58 | US ---
PROCEDURE: Bilateral carotid artery duplex ultrasound HISTORY: Carotid stenosis PHYSICIAN(S): Carter Cobian MD. TECHNIQUE: Duplex sonography and color-flow Doppler were used to evaluate the carotid bifurcations and limited segments of the vertebral arteries bilaterally. FINDINGS: There is mild smooth heterogeneous plaque noted at the carotid bifurcations bilaterally. The peak systolic velocity in the proximal right internal carotid artery is 79 cm/sec. This corresponds to a 20 to 39% proximal right ICA stenosis. Normal systolic velocities are noted in the proximal right external carotid artery. There is antegrade flow in the right vertebral artery. The peak systolic velocity in the proximal left internal carotid artery is 74 cm/sec. This corresponds to a 20 to 39% proximal left ICA stenosis. Normal systolic velocities are noted in the proximal left external carotid artery. There is antegrade flow in the left vertebral artery. IMPRESSION: 1. Bilateral 20-39% proximal ICA stenoses. 2. Antegrade flow in both vertebral arteries.
[2017-01-01 14:23] LABS: TROPONIN I < 0.01 ng/mL
--- NOTE | 2017-01-01 15:20 | CP.PCM.PCO ---
Physician Communication Note - Physician Communication Note Physician Communication Note: mri brain negative> TIA? c/w asa/plavix/diabetic mx. thx sign off
--- NOTE | 2017-01-01 16:02 | CP.PCM.DIS ---
<Mitch Mooney - Last Filed: 01/01/17 16:01> Provider - Provider Date of Admission: 12/31/16 16:42 Attending physician: Jose Guadalupe Gordillo MD Consults: Psych Dr. Napier Neurology Dr. Knight Time Spent in preparation of Discharge (in minutes): 39 Hospital Course - Lab Results Lab Results: Most Recent Lab Values WBC 6.8 10^3/ul (4.5-11.0) D 01/01/17 07:45 RBC 4.86 10^6/uL (3.5-6.1) 01/01/17 07:45 Hgb 13.2 gm/dL (12.0-16.0) 01/01/17 07:45 Hct 38.7 % (36.0-48.0) 01/01/17 07:45 MCV 79.6 fL (80.0-105.0) L 01/01/17 07:45 MCH 27.2 pg (25.0-35.0) 01/01/17 07:45 MCHC 34.1 g/dl (31.0-37.0) 01/01/17 07:45 RDW 14.3 % (11.5-14.5) 01/01/17 07:45 Plt Count 271 10^3/uL (120.0-450.0) 01/01/17 07:45 MPV 9.1 fl (7.0-11.0) 01/01/17 07:45 Gran % 72.9 % (50.0-68.0) H 01/01/17 07:45 Lymph % (Auto) 20.3 % (22.0-35.0) L 01/01/17 07:45 [place] % (Auto) 5.4 % (1.0-6.0) 01/01/17 07:45 Eos % (Auto) 1.3 % (1.5-5.0) L 01/01/17 07:45 Baso % (Auto) 0.1 % (0.0-3.0) 01/01/17 07:45 Gran # 4.98 (1.4-6.5) 01/01/17 07:45 Lymph # 1.4 (1.2-3.4) 01/01/17 07:45 [place] # 0.4 (0.1-0.6) 01/01/17 07:45 Eos # 0.1 (0.0-0.7) 01/01/17 07:45 Baso # 0.01 K/mm3 (0.0-2.0) 01/01/17 07:45 PT 10.8 Seconds (9.9-11.8) 12/31/16 15:26 INR 1.00 (0.93-1.08) 12/31/16 15:26 APTT 24.5 Seconds (23.7-30.8) 12/31/16 15:26 Sodium 141 mmol/L (132-148) 01/01/17 07:45 Potassium 3.3 mmol/L (3.6-5.0) L 01/01/17 07:45 Chloride 94 mmol/L (98-107) L 01/01/17 07:45 Carbon Dioxide 36 mmol/L (21-33) H 01/01/17 07:45 Anion Gap 14 (10-20) 01/01/17 07:45 BUN 21 mg/dL (7-21) 01/01/17 07:45 Creatinine 1.1 mg/dL (0.5-1.4) 01/01/17 07:45 Est GFR ( Amer) > 60 01/01/17 07:45 Est GFR (Non-Af Amer) 51 01/01/17 07:45 POC Glucose (mg/dL) 285 mg/dL (65-110) H 01/01/17 11:30 Random Glucose 53 mg/dL (70-110) L 01/01/17 07:45 Hemoglobin A1c 10.2 % (4.2-6.5) H 12/31/16 15:28 Calcium 9.3 mg/dL (8.4-10.5) 01/01/17 07:45 Phosphorus 4.1 mg/dL (2.5-4.5) 12/31/16 19:18 Magnesium 1.6 mg/dL (1.7-2.2) L 12/31/16 19:18 Total Bilirubin 0.5 mg/dL (0.2-1.3) 01/01/17 07:45 AST 21 U/L (15-39) 01/01/17 07:45 ALT 28 U/L (7-56) 01/01/17 07:45 Alkaline Phosphatase 89 U/L (38-133) 01/01/17 07:45 Lactate Dehydrogenase 553 U/L (333-699) 01/01/17 11:45 Total Creatine Kinase 31 U/L (35-230) L 01/01/17 11:45 Troponin I < 0.01 ng/mL 01/01/17 11:45 Total Protein 6.2 g/dL (5.8-8.3) 01/01/17 07:45 Albumin 3.6 g/dL (3.0-4.8) 01/01/17 07:45 Globulin 2.6 gm/dL 01/01/17 07:45 Albumin/Globulin Ratio 1.4 (1.1-1.8) 01/01/17 07:45 Triglycerides 110 mg/dL (35-160) 12/31/16 15:26 Cholesterol 207 mg/dL (130-200) H 12/31/16 15:26 LDL Cholesterol Direct 132 mg/dL (0-129) H 12/31/16 15:26 HDL Cholesterol 54 mg/dL (29-60) 12/31/16 15:26 Free T4 1.59 ng/dL (0.78-2.19) 01/01/17 07:45 TSH 3rd Generation 0.23 mIU/mL (0.46-4.68) L 01/01/17 07:45 Blood Type B POSITIVE 01/01/17 11:45 Antibody Screen Negative 01/01/17 11:45 BBK History Checked Patient has bt 01/01/17 11:45 - Hospital Course Hospital Course: Spent at least 15 minutes just in patient education and going over how the patient will be taking her glucometer readings Discharge Exam - Head Exam Head Exam: ATRAUMATIC, NORMAL INSPECTION, NORMOCEPHALIC Discharge Plan - Discharge Medications Prescriptions: Duloxetine HCl 20 mg PO 1600 #30 capsule. Gabapentin 300 mg PO TID #90 capsule - Follow Up Plan Condition: GUARDED Disposition: HOME/ ROUTINE Instructions: Transient Ischemic Attack (DC), Diabetes Mellitus Type 2 in Adults (DC) Additional Instructions: 1. Take new duloxetine at 4pm as written per psychiatry and also start new dose of gabapentin now at 300mg po TID. 2. Decrease levemir night time dosing from 32 units to 26 units. Take glucose readings 3 times a day before meals and titrate as needed. 3. Follow up with primary within 1 week. 4. Maintain hydration. 5. Maintain carbohydrate consistent diet and exercise. Referrals: Jose Knight MD [Staff Provider] - <Jose Guadalupe Gordillo - Last Filed: 01/04/17 08:28> Provider - Provider Date of Admission: 12/31/16 16:42 Attending physician: Jose Guadalupe Gordillo MD Hospital Course - Lab Results Lab Results: Most Recent Lab Values WBC 6.8 10^3/ul (4.5-11.0) D 01/01/17 07:45 RBC 4.86 10^6/uL (3.5-6.1) 01/01/17 07:45 Hgb 13.2 gm/dL (12.0-16.0) 01/01/17 07:45 Hct 38.7 % (36.0-48.0) 01/01/17 07:45 MCV 79.6 fL (80.0-105.0) L 01/01/17 07:45 MCH 27.2 pg (25.0-35.0) 01/01/17 07:45 MCHC 34.1 g/dl (31.0-37.0) 01/01/17 07:45 RDW 14.3 % (11.5-14.5) 01/01/17 07:45 Plt Count 271 10^3/uL (120.0-450.0) 01/01/17 07:45 MPV 9.1 fl (7.0-11.0) 01/01/17 07:45 Gran % 72.9 % (50.0-68.0) H 01/01/17 07:45 Lymph % (Auto) 20.3 % (22.0-35.0) L 01/01/17 07:45 [place] % (Auto) 5.4 % (1.0-6.0) 01/01/17 07:45 Eos % (Auto) 1.3 % (1.5-5.0) L 01/01/17 07:45 Baso % (Auto) 0.1 % (0.0-3.0) 01/01/17 07:45 Gran # 4.98 (1.4-6.5) 01/01/17 07:45 Lymph # 1.4 (1.2-3.4) 01/01/17 07:45 [place] # 0.4 (0.1-0.6) 01/01/17 07:45 Eos # 0.1 (0.0-0.7) 01/01/17 07:45 Baso # 0.01 K/mm3 (0.0-2.0) 01/01/17 07:45 PT 10.8 Seconds (9.9-11.8) 12/31/16 15:26 INR 1.00 (0.93-1.08) 12/31/16 15:26 APTT 24.5 Seconds (23.7-30.8) 12/31/16 15:26 Sodium 141 mmol/L (132-148) 01/01/17 07:45 Potassium 3.3 mmol/L (3.6-5.0) L 01/01/17 07:45 Chloride 94 mmol/L (98-107) L 01/01/17 07:45 Carbon Dioxide 36 mmol/L (21-33) H 01/01/17 07:45 Anion Gap 14 (10-20) 01/01/17 07:45 BUN 21 mg/dL (7-21) 01/01/17 07:45 Creatinine 1.1 mg/dL (0.5-1.4) 01/01/17 07:45 Est GFR ( Amer) > 60 01/01/17 07:45 Est GFR (Non-Af Amer) 51 01/01/17 07:45 POC Glucose (mg/dL) 130 mg/dL (65-110) H 01/01/17 16:20 Random Glucose 53 mg/dL (70-110) L 01/01/17 07:45 Hemoglobin A1c 10.2 % (4.2-6.5) H 12/31/16 15:28 Calcium 9.3 mg/dL (8.4-10.5) 01/01/17 07:45 Phosphorus 4.1 mg/dL (2.5-4.5) 12/31/16 19:18 Magnesium 1.6 mg/dL (1.7-2.2) L 12/31/16 19:18 Total Bilirubin 0.5 mg/dL (0.2-1.3) 01/01/17 07:45 AST 21 U/L (15-39) 01/01/17 07:45 ALT 28 U/L (7-56) 01/01/17 07:45 Alkaline Phosphatase 89 U/L (38-133) 01/01/17 07:45 Lactate Dehydrogenase 553 U/L (333-699) 01/01/17 11:45 Total Creatine Kinase 31 U/L (35-230) L 01/01/17 11:45 Troponin I < 0.01 ng/mL 01/01/17 11:45 Total Protein 6.2 g/dL (5.8-8.3) 01/01/17 07:45 Albumin 3.6 g/dL (3.0-4.8) 01/01/17 07:45 Globulin 2.6 gm/dL 01/01/17 07:45 Albumin/Globulin Ratio 1.4 (1.1-1.8) 01/01/17 07:45 Triglycerides 110 mg/dL (35-160) 12/31/16 15:26 Cholesterol 207 mg/dL (130-200) H 12/31/16 15:26 LDL Cholesterol Direct 132 mg/dL (0-129) H 12/31/16 15:26 HDL Cholesterol 54 mg/dL (29-60) 12/31/16 15:26 Free T4 1.59 ng/dL (0.78-2.19) 01/01/17 07:45 TSH 3rd Generation 0.23 mIU/mL (0.46-4.68) L 01/01/17 07:45 Blood Type B POSITIVE 01/01/17 11:45 Antibody Screen Negative 01/01/17 11:45 BBK History Checked Patient has bt 01/01/17 11:45 Discharge Exam - Head Exam Head Exam: NORMAL INSPECTION, NORMOCEPHALIC - Eye Exam Eye Exam: EOMI - ENT Exam ENT Exam: Normal Exam - Neck Exam Neck exam: Full Rom - Respiratory Exam Respiratory Exam: Clear to PA & Lateral. absent: Rhonchi, Wheezes - Cardiovascular Exam Cardiovascular Exam: REGULAR RHYTHM, +S1, +S2 - GI/Abdominal Exam GI & Abdominal Exam: Normal Bowel Sounds, Soft. absent: Organomegaly, Tenderness - Extremities Exam Extremities exam: normal inspection - Neurological Exam Neurological exam: Alert, Oriented x3 - Psychiatric Exam Psychiatric exam: Normal Affect, Normal Mood Discharge Plan - Follow Up Plan Patient education suggested?: Yes Attending/Attestation - Attestation I have personally seen and examined this patient.: Yes I have fully participated in the care of the patient.: Yes I have reviewed all pertinent clinical information, including history, physical exam and plan: Yes Notes (Text): 01/04/17 08:25 D/C Summary for 01/01/17 56 year old female with past medical history of TIA/CVA, hypertension, diabetes , and gastroparesis who presented with complaint of left sides facial droop and left sided weakness which have resolved. CT head and CT head and neck were negative for acute findings. MRI brain was also negative. She was seen by neurology who recommended to continue with aspirin, plavix and statin for possible TIA. Today her symptoms have completely resolved. She was seen by PT. She is ambulating without complaints. She was also seen by psychiatrist who has adjusted her medications. She was hypoglycemic this morning and we have recommended to decrease her levemir dose at night. Her abdominal pain has resolved and she is tolerating diet. Patient is discharged home to follow up with her pmd. Follow up with psychiatrist or with [facility] clinic. Jose Guadalupe Gordillo MD Hospitalist.
--- NOTE | 2017-01-02 00:34 | CON ---
HISTORY OF PRESENT ILLNESS: The patient is a 56-year-old female, multiple medical problems including CVA, TIAs, hypertension, diabetes, partial leg amputation. The patient also has history of depression and anxiety, that is why this service writer was involved into the patient's care. The patient also has multiple psychosomatic complaints, stomach pain, nonspecific chest pain, also generalized pain. This service writer is very familiar with this patient from the previous admission to the medical side and this service writer saw the patient as a application consultant. The patient was evaluated, discussed with the nursing staff, collateral information was obtained from the patient's daughter who is next to her. The patient gave permission to do so. The patient presented to be alert and oriented, pleasant and cooperative. The patient said that she is not feeling good. The patient says that her stomach is bothering her and even though that she had multiple passes, nothing was found for her. The patient also reported that she has pins and needles in her arms and legs. The patient has generalized pain all over her body. The patient reported that she is on Cymbalta and Neurontin as well as amitriptyline. The patient is on Elavil 10 mg daily. The patient reported that she is compliant with the medications, denies side effects. The patient reported that she stopped seeing her outpatient psychiatrist because she cannot keep her appointment because that psychiatrist is practicing far away. The patient was willing to start seeing psychiatrist in the community. The patient lives in [place]. The patient was willing to see Dr. Orlando at [place], information was provided. The patient reported that she has transient feeling of hopelessness, but denied feeling any helplessness. The patient denied thought of harming herself or others,denied intent or plan. The patient has future oriented plans to start feeling better and be independent again. The patient also denied hearing voices, denied seeing things, denied paranoid ideation. The patient does not present to be psychotic. The patient reported that she feels anxious about her health, about future, about financial situation. The patient reported that her family is very supportive and denies any abuse. PHYSICAL EXAMINATION: VITAL SIGNS: This service writer reviewed the vital signs. Vital signs seem to be stable, temperature 97.1, pulse is 79, respiration 18, and blood pressure 145/86. MEDICATIONS: Reviewed. The patient is on Elavil 10 mg daily, aspirin, Lipitor, Neurontin will be increased to 300 mg 3 times a day, Levemir, Humalog, magnesium oxide, Protonix, and Ultram 50 mg p.o. q. 6 hours as needed. LABORATORY DATA: Labs are reviewed, seem to be normal. Chemistry is reviewed. TSH is low. Potassium is low. PAST PSYCHIATRIC HISTORY: The patient denied history of being admitted to the psychiatric and patient denies history of suicidal attempts in the past. MENTAL STATUS EXAMINATION: The patient appears to be alert and oriented, pleasant,cooperative, fair eye contact. Speech was normal rate, tone, quality, and quantity. Thought process was coherent and goal directed. Mood described, "I have my moments, but I am feeling better now." Affect was constricted but reactive. Mood congruent. Thought content, the patient denied visual, auditory, or tactile hallucinations. Denied paranoid ideation. The patient does not present to be psychotic. The patient adamantly denied thoughts of harming herself or others,denied intent or plan. Insight and judgement are fair. Impulses are well controlled. IMPRESSION: Rule out mood disorder and anxiety disorder due to general medical condition. Rule out major depressive disorder. Rule out generalized anxiety disorder. Rule out adjustment disorder. The patient has multiple medical issues. Please see medical team notes for more detailed information. PLAN: Continue current management. Cymbalta was increased from 60 mg daily to 80 daily and split the dose to 60 mg in the morning time and 20 mg at afternoon. Neurontin could be increased to 300 mg 3 times a day. Also, amitriptyline will be continued. This service writer provided information about outpatient clinic at [facility], [facility], [facility] as well as Dr. Jj Orlando at [facility]. The patient was appreciative. The patient posed no threat to self or others, seems to be at her baseline of functioning. Discussed with nursing staff as well as with the patient's daughter as well as Dr. Gordillo. This service writer will sign off. Should you have any questions, give me a call back. Thank you very much for letting me participate in the care of your patient. Lidia Napier MD
== END 2017-01-01 17:39 | disposition home or self-care (01) ==
LOC: ED 14:42 → ERH 16:42 → 3RSO 18:35
PROVIDERS: ADMIT Internal Medicine; ATTEND Internal Medicine
DX: G45.9 Transient cerebral ischemic attack, unspecified (principal); E10.43 Type 1 diabetes mellitus with diabetic autonomic (poly)neuropathy; I10 Essential (primary) hypertension; K21.9 Gastro-esophageal reflux disease without esophagitis; K31.84 Gastroparesis; Z79.02 Long term (current) use of antithrombotics/antiplatelets; Z79.899 Other long term (current) drug therapy; Z82.3 Family history of stroke; Z86.73 Personal history of transient ischemic attack (TIA), and cerebral infarction without residual deficits; Z87.19 Personal history of other diseases of the digestive system; Z98.42 Cataract extraction status, left eye; Z98.41 Cataract extraction status, right eye; Z89.431 Acquired absence of right foot; R40.2412 Glasgow coma scale score 13-15, at arrival to emergency department; F39 Unspecified mood [affective] disorder; F43.20 Adjustment disorder, unspecified; F32.9 Major depressive disorder, single episode, unspecified; F41.1 Generalized anxiety disorder
CPT/HCPCS: 36415; 70450; 70496; 70498; 70551; 71010; 80053; 80061; 82550; 82948; 83036; 83615; 83735; 84100; 84439; 84443; 84484; 85025; 85027; 85610; 85730; 86850; 86900; 93005; 93880; 97110; 97116; 97162; 97530; 99285; G0378; G8978; G8979

== ENCOUNTER 2017-01-27 18:20 | Inpatient (IN) | payer BC ==
[2017-01-27] MEDS ORDERED: Sodium Chloride 0.9% 1,000 ML IV STA ×3 (18:40→20:38)
--- NOTE | 2017-01-27 18:47 | ED PDOC ---
Arrival/HPI - General Chief Complaint: High Blood Sugar Time Seen by Provider: 01/27/17 18:28 Historian: Patient, Family (Daughter), EMS - History of Present Illness Narrative History of Present Illness (Text): 01/27/17 18:35 A 56 year old female, whose past medical history includes diabetes, CVA, was brought into the emergency department by EMS after being found unresponsive. Daughter reports while at home there was a foul odor, when she went to check on her mother she found her unresponsive. Patient experienced bowel incontinence and some slurring of speech. Daughter reports patient was unable to move any of her extremities and she called EMS. As per EMS, patients blood sugar was over 500 and blood pressure was 70/40, IV fluids were started. On evaluation, patient is alert and oriented, she states she does not recall any details from event. Patient denies any fever, chills, nausea, vomiting, abdominal pain, chest pain, shortness of breath, cough, headache, dizziness, vision changes or any other complaints. Time/Duration: Prior to Arrival Context: Home Past Medical History - Provider Review Nursing Documentation Reviewed: Yes - Infectious Disease Hx of Infectious Diseases: None - Cardiac Hx Hypertension: Yes - Pulmonary Hx Respiratory Disorders: No - Neurological HX Cerebrovascular Accident: Yes (TIA) - HEENT Hx HEENT Disorder: (reading glasses) Hx Cataracts: Yes (bilateral sx) - Renal Hx Renal Disorder: No - Endocrine/Metabolic Hx Diabetes Mellitus Type 1: Yes - Hematological/Oncological Hx Blood Transfusions: Yes Hx Blood Transfusion Reaction: No - Integumentary Other/Comment: 10 wilbert to back of head - Musculoskeletal/Rheumatological Hx Falls: Yes (past) - Gastrointestinal Hx Gastroesophageal Reflux: Yes (had endo; lesions in the esophagus) Other/Comment: Diabetic Gastroparesis - Genitourinary/Gynecological Hx Genitourinary Disorders: No - Psychiatric Hx Psychophysiologic Disorder: Yes Hx Depression: Yes Hx Substance Use: No - Surgical History Other/Comment: Amputation of half the Rt. foot. - Anesthesia Hx Anesthesia: Yes Hx Anesthesia Reactions: No Hx Malignant Hyperthermia: No - Suicidal Assessment Feels Threatened In Home Enviroment: No Family/Social History - Physician Review Nursing Documentation Reviewed: Yes Family/Social History: No Known Family HX Smoking Status: Never Smoked Hx Alcohol Use: No Hx Substance Use: No Allergies/Home Meds Allergies/Adverse Reactions: Allergies No Known Allergies Allergy (Verified 01/27/17 18:33) Home Medications: Home Meds Medication Instructions Recorded Confirmed Lisinopril [Prinivil] 10 mg PO DAILY 09/23/15 01/27/17 Metoclopramide [Reglan] 5 mg PO BID 09/23/15 01/27/17 DULoxetine [Cymbalta] 60 mg PO DAILY 07/13/16 01/27/17 Insulin Lispro [humALOG] 0 units SC AC 07/13/16 01/27/17 Omeprazole 40 mg PO DAILY 07/13/16 01/27/17 Furosemide [Lasix] 20 tab PO DAILY 11/28/16 01/27/17 Isosorbide Mononitrate [Isosorbide 30 mg PO DAILY 11/28/16 01/27/17 Mononitrate ER] Labetalol [Trandate] 200 mg PO BID 11/28/16 01/27/17 Midodrine [Proamatine] 2.5 mg PO DAILY 11/28/16 01/27/17 Amitriptyline [Elavil] 10 mg PO DAILY 01/27/17 01/27/17 Gabapentin 100 mg PO TID 01/27/17 01/27/17 Insulin Detemir [Levemir] 32 units SUBCUT HS 01/27/17 01/27/17 chlordiazePOXIDE-Clinidium [Librax 1 tab PO BID 01/27/17 01/27/17 5 MG-2.5 MG] Review of Systems - Physician Review All systems were reviewed & negative as marked: Yes - Review of Systems Constitutional: Normal. absent: Fevers, Night Sweats Eyes: absent: Vision Changes Respiratory: absent: SOB, Cough Cardiovascular: absent: Chest Pain Gastrointestinal: absent: Abdominal Pain, Nausea, Vomiting Neurological: absent: Headache, Dizziness Physical Exam Vital Signs Reviewed: Yes Vital Signs Temp Pulse Resp BP Pulse Ox 01/27/17 21:37 92 H 12 132/66 99 01/27/17 21:30 97.8 F 01/27/17 21:00 90 15 97 01/27/17 20:51 92 H 20 102/59 L 98 01/27/17 20:36 89 14 117/56 L 97 01/27/17 20:20 89 14 91/39 L 96 01/27/17 20:07 89 16 103/64 97 01/27/17 20:04 89 14 102/75 97 01/27/17 19:51 83 20 103/43 L 95 01/27/17 19:36 91 H 14 99/55 L 94 L 01/27/17 19:15 90 14 85/38 L 96 01/27/17 19:11 92 H 25 H 85/32 L 95 01/27/17 18:35 95 H 19 94/59 L 94 L Temperature: Afebrile Blood Pressure: Hypotensive Pulse: Tachycardic Respiratory Rate: Normal Appearance: Positive for: Non-Toxic, Comfortable, Ill-Appearing Pain Distress: None Mental Status: Positive for: Alert and Oriented X 3 Finger Stick Blood Glucose: 488 - Systems Exam Head: Present: Atraumatic, Normocephalic Pupils: Present: PERRL Extroacular Muscles: Present: EOMI Conjunctiva: Present: Normal Mouth: Present: Dry Pharnyx: No: ERYTHEMA, EXUDATE, TONSILS ENLARGED Neck: Present: Normal Range of Motion Respiratory/Chest: Present: Clear to Auscultation, Good Air Exchange. No: Respiratory Distress, Accessory Muscle Use Cardiovascular: Present: Regular Rate and Rhythm, Normal S1, S2. No: Murmurs Abdomen: Present: Normal Bowel Sounds, Scars (mulitple abdominal scars). No: Tenderness, Distention, Peritoneal Signs Back: Present: Normal Inspection Upper Extremity: Present: Normal Inspection. No: Cyanosis, Edema Lower Extremity: Present: Normal Inspection, Other (Right transmetatarsal amputationof the right foot). No: Edema Neurological: Present: GCS=15, CN II-XII Intact, Speech Normal, Motor Func Grossly Intact, Normal Sensory Function, Normal Cerebellar Funct, Gait Normal, Memory Normal Skin: Present: Warm, Dry, Normal Color. No: Rashes Psychiatric: Present: Alert, Oriented x 3, Normal Insight, Normal Concentration Medical Decision Making ED Course and Treatment: 01/27/17 18:35 Impression: A 56 year old female brought in after being found unresponsive. In emergency room patient is alert and oriented with unremarkable neuro exam but noted to be hypotensive with elevated glucose. Plan: -- Head CT -- Chest xray -- EKG -- Labs -- Blood and Urine culture -- Urinalysis -- IV fluids -- Reassess and disposition Progress Notes: Report Date: 01/27/17 19:53 EXAM: CT Head Without Intravenous Contrast Dictated and Authenticated by: Lilian Barrera MD IMPRESSION: No acute findings seen within the brain. 01/27/17 22:19 Patient with noted history. Brain CT with no acute findings. Initial BP low, responding to IVF. Labs showing leukocytosis with lactic acid of 6.1 and hyperglycemia (w/ AG) - code sepsis called at 7:34 pm; case was discussed with Dr. Kirby. Patient received 2 liters of NS and broad spectrum iv abx coverage. Patient will possible DKA, though AG is just barely elevated at 17 but with ketones in urine. Bp has responded better to IVF - she has been accepted by ICU for admission. Case also discussed with Dr. Dent for admission to his service. - Critical Care Critical Care Minutes: 45 minutes - Lab Interpretations Lab Results: 01/27/17 18:34 01/27/17 18:34 Lab Results 01/27/17 19:13: POC Glucose (mg/dL) 442 H* 01/27/17 18:58: pO2 45, VBG pH 7.37, VBG pCO2 52.0, VBG HCO3 30.1 H, VBG Total CO2 31.7 H, VBG O2 Sat (Calc) 83.0 H, VBG Base Excess 3.6 H, VBG Potassium 3.9, Glucose 502 H* D, Lactate 6.1 H*, FiO2 21.0, Sodium 135.0, Chloride 89.0 L, Venous Blood Potassium 3.9 01/27/17 18:34: Serum Osmolality 313 H 01/27/17 18:34: Sodium 132, Potassium 3.9, Chloride 88 L, Carbon Dioxide 27, Anion Gap 21 H, BUN 30 H, Creatinine 0.9, Est GFR ( Amer) > 60, Est GFR ( Non-Af Amer) > 60, Random Glucose 513 H* D, Calcium 9.4, Phosphorus 5.1 H, Magnesium 1.7, Total Bilirubin 0.5, AST 31, ALT 27, Alkaline Phosphatase 100, Total Protein 6.5, Albumin 3.9, Globulin 2.6, Albumin/Globulin Ratio 1.5, Lipase 38 01/27/17 18:34: PT 10.7, INR 0.99, APTT 24.7 01/27/17 18:34: WBC 18.2 H D, RBC 4.65, Hgb 13.1, Hct 36.7, MCV 78.9 L, MCH 28.2 , MCHC 35.7, RDW 13.3, Plt Count 252, MPV 10.4, Gran % 90.2 H, Lymph % (Auto) 4.7 L, Parmer % (Auto) 5.0, Eos % (Auto) 0.0 L, Baso % (Auto) 0.1, Gran # 16.38 H , Lymph # 0.9 L, Parmer # 0.9 H, Eos # 0.0, Baso # 0.02, Neutrophils % (Manual) 88 H, Lymphocytes % (Manual) 7 L, Monocytes % (Manual) 5, Toxic Granulation 2+, Platelet Evaluation Normal, Hypochromasia 1+, Rouleaux 2+ 01/27/17 18:30: Lactate Dehydrogenase 631, Total Creatine Kinase 47, Troponin I 0.01 01/27/17 18:27: POC Glucose (mg/dL) 488 H* I have reviewed the lab results: Yes - RAD Interpretation Radiology Orders: 01/27/17 18:37 CHEST ONE VIEW [RAD] Stat 01/27/17 18:40 Brain [HEAD W/O CONTRAST] [CT] Stat - EKG Interpretation EKG Interpretation (Text): 01/27/17 22:26 NSR @ [address]/T changes; normal axis and QTc is 517; other intervals normal; unchanged from previous. - Medication Orders Current Medication Orders: Aspirin (Ecotrin) 81 mg PO DAILY PATTI Duloxetine HCl (Cymbalta) 60 mg PO DAILY [facility] Ceftriaxone Sodium (Rocephin 1 Gram Ivpb) 1 gm in 100 mls @ 100 mls/hr IVPB DAILY PATTI PRN Reason: Protocol Potassium Chloride 30 meq/ (Dextrose/Sodium Chloride) 1,015 mls @ 120 mls/hr IV .Q8H28M PATTI Insulin Human Regular 100 (units/ Sodium Chloride) 100 mls @ 5 mls/hr IV .Q20H PRN; Protocol; 5 UNITS/HR PRN Reason: TITRATE PER MD ORDER Piperacillin Sod/Tazobactam Sod (Zosyn 3.375 In Ns 100ml) 100 mls @ 200 mls/hr IVPB ONCE ONE PRN Reason: Protocol Stop: 01/28/17 04:29 Metoclopramide HCl (Reglan) 5 mg PO BID PATTI Pantoprazole Sodium (Protonix Ec Tab) 40 mg PO ACB PATTI Discontinued Medications Furosemide (Lasix) 20 mg PO DAILY PATTI Sodium Chloride (Sodium Chloride 0.9%) 1,000 mls @ 999 mls/hr IV .Q1H1M STA Stop: 01/27/17 19:40 Last Admin: 01/27/17 18:45 Dose: 999 mls/hr Sodium Chloride (Sodium Chloride 0.9%) 1,000 mls @ 999 mls/hr IV .Q1H1M STA Stop: 01/27/17 20:23 Last Admin: 01/27/17 19:54 Dose: 999 mls/hr Vancomycin HCl 1 gm/ Sodium (Chloride) 250 mls @ 133.333 mls/hr IV STAT STA PRN Reason: Protocol Stop: 01/27/17 21:28 Last Admin: 01/27/17 20:34 Dose: 133.333 mls/hr Piperacillin Sod/Tazobactam Sod (Zosyn 3.375 In Ns 100ml) 100 mls @ 200 mls/hr IVPB STAT STA PRN Reason: Protocol Stop: 01/27/17 20:06 Last Admin: 01/27/17 19:53 Dose: 200 mls/hr Isosorbide Mononitrate (Imdur) 30 mg PO DAILY PATTI Labetalol HCl (Trandate) 200 mg PO BID PATTI Lisinopril (Zestril) 10 mg PO DAILY [facility]TI Pantoprazole Sodium (Protonix Inj) 40 mg IVP DAILY PATTI - Scribe Statement The provider has reviewed the documentation as recorded by the Naa Goetz Provider Scribe Attestation: All medical record entries made by the Scribe were at my direction and personally dictated by me. I have reviewed the chart and agree that the record accurately reflects my personal performance of the history, physical exam, medical decision making, and the department course for this patient. I have also personally directed, reviewed, and agree with the discharge instructions and disposition. Disposition/Present on Arrival - Present on Arrival Any Indicators Present on Arrival: No History of DVT/PE: No History of Uncontrolled Diabetes: No Urinary Catheter: No History of Decub. Ulcer: No History Surgical Site Infection Following: None - Disposition Have Diagnosis and Disposition been Completed?: Yes Diagnosis: Sepsis, Uncontrolled diabetes mellitus Disposition: HOSPITALIZED Disposition Time: 19:40 Patient Plan: Admission, ICU Condition: CRITICAL
[2017-01-27 19:00] LABS: BASO # 0.02 K/mm3 (0.0-2.0); BASO % 0.1 % (0.0-3.0); GRAN # 16.38 (1.4-6.5); GRAN % 90.2 % (50.0-68.0); HEMATOCRIT 36.7 % (36.0-48.0); LYMPH # 0.9 (1.2-3.4); LYMPH % 4.7 % (22.0-35.0); MEAN CELL VOLUME 78.9 fl (80.0-105.0); MEAN CORPUSCULAR HEMOGLOBIN 28.2 pg (25.0-35.0); MEAN CORPUSCULAR HGB CONC 35.7 g/dl (31.0-37.0); MEAN PLATELET VOLUME 10.4 fl (7.0-11.0); MONO # 0.9 (0.1-0.6); PLATELET COUNT 252 10^3/uL (120.0-450.0); RED CELL DISTRIBUTION WIDTH 13.3 % (11.5-14.5); WHITE BLOOD COUNT 18.2 10^3/ul (4.5-11.0)
[2017-01-27 19:02] LABS: ALB/GLOB RATIO 1.5 (1.1-1.8); ALKALINE PHOSPHATASE 100 U/L (38-133); ALT/SGPT 27 U/L (7-56); AST/SGOT 31 U/L (15-39); BILIRUBIN,TOTAL 0.5 mg/dL (0.2-1.3); BLOOD UREA NITROGEN 30 mg/dL (7-21); CALCIUM 9.4 mg/dL (8.4-10.5); CARBON DIOXIDE 27 mmol/L (21-33); CHLORIDE 88 mmol/L (98-107); GFR AFRICAN-AMERICAN > 60; LIPASE 38 U/L (23-300); MAGNESIUM 1.7 mg/dL (1.7-2.2); PHOSPHOROUS 5.1 mg/dL (2.5-4.5); POTASSIUM 3.9 mmol/L (3.6-5.0); SODIUM 132 mmol/L (132-148); TOTAL PROTEIN 6.5 g/dL (5.8-8.3)
[2017-01-27 19:03] LABS: INR 0.99 (0.93-1.08); PARTIAL THROMBOPLASTIN TIME 24.7 Seconds (23.7-30.8)
[2017-01-27 19:32] LABS: VENOUS BLOOD GAS BASE EXCESS 3.6 mmol/L (0.0-2.0); VENOUS BLOOD PH 7.37 (7.32-7.43)
[2017-01-27] MEDS ORDERED: Piperacillin/Tazobact 3.375 gm 100 ML IVPB STA (19:37)
[2017-01-27 19:43] LABS: GLUCOSE,RANDOM 513 mg/dL (70-110)
--- NOTE | 2017-01-27 19:52 | PCM.SEPTIC ---
Sepsis Progress Note - Reassessment Type Date of Evaluation: 01/27/17 Time of Evaluation: 19:44 Reassessment Type: Non-invasive reassessment - Non Invasive Reassessment Were the most recent vital sign reviewed: Yes Vital Sign (Latest): Temp Pulse Resp BP Pulse Ox 95 H 19 94/59 L 94 L 01/27/17 18:35 01/27/17 18:35 01/27/17 18:35 01/27/17 18:35 Cardiovascular: Yes: Other (sinus arrhtymia 85 with QTc 518) Respiratory: Yes: Normal Breath Sounds Capillary Refill: Normal (Less than 2 sec) Pulses: Normal Radial, Normal Posterior Tibialis Skin: Dry, Other (Cool) <Katherine Prasad - Last Filed: 01/27/17 19:44> - Non Invasive Reassessment Vital Sign (Latest): Temp Pulse Resp BP Pulse Ox 97 F L 87 12 187/104 H 100 01/28/17 20:00 01/28/17 22:56 01/28/17 20:30 01/28/17 22:56 01/28/17 20:40 <Shady Lindo - Last Filed: 01/29/17 00:28> Attending/Attestation - Attestation I have personally seen and examined this patient.: Yes I have fully participated in the care of the patient.: Yes I have reviewed all pertinent clinical information, including history, physical exam and plan: Yes Notes (Text): 01/29/17 00:28 Agree with resident. <Shady Lindo - Last Filed: 01/29/17 00:28>
--- NOTE | 2017-01-27 19:53 | CT ---
EXAM: CT Head Without Intravenous Contrast EXAM DATE/TIME: 01/27/2017 6:57 PM CLINICAL HISTORY: 56 years old, female; Signs and symptoms; Altered mental status/memory loss; TECHNIQUE: Axial computed tomography images of the head/brain without intravenous contrast. All CT scans at this facility use one or more dose reduction techniques, viz.: automated exposure control; ma/kV adjustment per patient size (including targeted exams where dose is matched to indication; i.e. head); or iterative reconstruction technique. COMPARISON: Report from a prior study of 12/31/2016. The prior study itself is currently unavailable. FINDINGS: BRAIN: Diffuse, mild, age-related cortical atrophy and ventriculomegaly. No significant acute abnormality identified. No acute hemorrhage seen within the brain. No acute extra-axial fluid collections visualized. No evidence of significant mass effect within the brain. VENTRICLES: No evidence of significant hydrocephalus. BONES/JOINTS: No acute fractures or other acute bony abnormality noted. SOFT TISSUES: No acute abnormality of the visualized soft tissues is seen. SINUSES: Visualized paranasal sinuses appear clear. MASTOID AIR CELLS: Mastoid air cells appear clear. IMPRESSION: - No acute findings seen within the brain. - See above for remaining findings.
[2017-01-27 20:31] LABS: NEUTROPHIL 88 % (50.0-70.0)
[2017-01-27 20:32] LABS: HYPOCHROMIA 1+; PLATELET ESTIMATE NORMAL (NORMAL); TOXIC GRANULATION 2+
[2017-01-27] MEDS ORDERED: Insulin Regular 100 UNITS in Sodium Chloride 0.9% 99 ML IV PRN ×2 (20:45→21:57)
[2017-01-27 21:05] LABS: PH,URINE 6.5 (4.7-8.0); URINE BILIRUBIN NEGATIVE (NEGATIVE); URINE BLOOD MODERATE (NEGATIVE); URINE GLUCOSE (UA) >=1000 mg/dL (NEGATIVE); URINE KETONE 40 mg/dL (NEGATIVE); URINE LEUKOCYTE ESTERASE NEGATIVE Leu/uL (NEGATIVE); URINE PROTEIN >=300 mg/dL (<30 mg/dL); URINE UROBILINOGEN 0.2 E.U./dL (<1 E.U./dL)
[2017-01-27 21:08] LABS: URINE COLOR YELLOW (YELLOW)
[2017-01-27 21:09] LABS: URINE AMORPHOUS SEDIMENT TRACE; URINE APPEARANCE CLEAR (CLEAR); URINE BACTERIA TRACE (NEG); URINE RBC 15 - 20 /hpf (0-2)
[2017-01-27] MEDS ORDERED: Potassium Chloride 30 MEQ in Dextrose 5%/0.45% NS 1,000 ML IV SCH (21:30)
[2017-01-27 21:56] LABS: TROPONIN I 0.01 ng/mL
[2017-01-27] MEDS ORDERED: Insulin Reg-HIGH-Coverage SC SCH (22:00)
[2017-01-27] MEDS ORDERED: Insulin Detemir 100 units/ml Vial (Levemir) SC SCH (22:00)
--- NOTE | 2017-01-27 22:25 | CP.PCM.CON ---
<MARIA DOLORES DIAZ - Last Filed: 01/28/17 05:21> History of Present Illness - History of Present Illness History of Present Illness: Maria Dolores Diaz, PGY1, Consult Note for Dr. Kirby: CC: AMS/unresponsive HPI: 56F with PMH IDDM, TIA, gastroparesis, orthostatic hypotension, presents for AMS x 3 hours [employer]. Pt's daughter reports that she smelled a foul odor and found pt in bed, with fecal incontinence, unreponsive to touch/sensory and voice commands. No jerky body movements, urinary incontinence, tongue/lip biting noted by daughter. Pt only recalls being in bed and then waking up in ambulance, confused and disoriented. Pt has been having some constipation for the past 2-3 days, with epigastric pain, decreased appetite and intake, polyuria , polydipsia. Pt denies headache, neck pain, hematemesis, generalized or focal weakness, new numbness, tingling, urinary complaints, blurry vision, cp, sob, palpitations, diaphoresis, melena, hematochezia, leg swelling. Pt had 1 episode of nonbloody, nonbilious vomiting this AM, also c/o some dry cough. En route to ED, EMS noticed BS>500, BP 70/40, received IVF, still confused and drowsy. In ED , pt afebrile, hypotensive 94/59, leukocytosis 18.2, HCO2 27, elevated bun 30, cr 0.9, BS 513, lipase nrml, lactate 6.1, pH 7.37, Sosm 313, UA shows mod blood and ketones 40, neg for infxn. ICU consulted for management of DKA and AMS. 10 point ROS obtained and neg except as noted in HPI. PMHx: DM, TIA/CVA, HTN, gastroparesis, orthostatic hypotn, esophageal ulcers PSHx: R mid foot amputation (2015) , hysterectomy, L knee arthroscopy, C- section and cholecystectomy Allergies: NKDA Social Hx: Denies alcohol, smoking and illicit drug use. Lives with daughter at home, uses walker, needs assistance to bathe. Denies sick contacts, recent travel. Family Hx: Brother from [place] Review of Systems - Review of Systems All systems: reviewed and no additional remarkable complaints except Review of Systems: as per hpi Past Patient History - Infectious Disease Hx of Infectious Diseases: None - Past Social History Smoking Status: Never Smoked - CARDIAC Hx Hypertension: Yes - PULMONARY Hx Respiratory Disorders: No - NEUROLOGICAL HX Cerebrovascular Accident: Yes (TIA) - HEENT Hx HEENT Problems: (reading glasses) Hx Cataracts: Yes (bilateral sx) - RENAL Hx Chronic Kidney Disease: No - ENDOCRINE/METABOLIC Hx Diabetes Mellitus Type 1: Yes - HEMATOLOGICAL/ONCOLOGICAL Hx Blood Transfusions: Yes Hx Blood Transfusion Reaction: No - INTEGUMENTARY Other/Comment: 10 wilbert to back of head - MUSCULOSKELETAL/RHEUMATOLOGICAL Hx Falls: Yes (past) - GASTROINTESTINAL Hx Gastroesophageal Reflux: Yes (had endo; lesions in the esophagus) Other/Comment: Diabetic Gastroparesis - GENITOURINARY/GYNECOLOGICAL Hx Genitourinary Disorders: No - PSYCHIATRIC Hx Psychophysiologic Disorder: Yes Hx Depression: Yes Hx Substance Use: No - SURGICAL HISTORY Other/Comment: Amputation of half the Rt. foot. - ANESTHESIA Hx Anesthesia: Yes Hx Anesthesia Reactions: No Hx Malignant Hyperthermia: No Meds Allergies/Adverse Reactions: Allergies Allergy/AdvReac Type Severity Reaction Status Date / Time No Known Allergies Allergy Verified 01/27/17 18:33 - Medications Medications: Current Medications Aspirin (Ecotrin) 81 mg PO DAILY [facility] Duloxetine HCl (Cymbalta) 60 mg PO DAILY [facility] Ceftriaxone Sodium (Rocephin 1 Gram Ivpb) 1 gm in 100 mls @ 100 mls/hr IVPB DAILY [facility] PRN Reason: Protocol Potassium Chloride 30 meq/ (Dextrose/Sodium Chloride) 1,015 mls @ 120 mls/hr IV .Q8H28M [facility] Insulin Human Regular 100 (units/ Sodium Chloride) 100 mls @ 5 mls/hr IV .Q20H PRN; Protocol; 5 UNITS/HR PRN Reason: TITRATE PER MD ORDER Piperacillin Sod/Tazobactam Sod (Zosyn 3.375 In Ns 100ml) 100 mls @ 200 mls/hr IVPB ONCE ONE PRN Reason: Protocol Stop: 01/28/17 04:29 Metoclopramide HCl (Reglan) 5 mg PO BID [facility] Pantoprazole Sodium (Protonix Ec Tab) 40 mg PO ACB [facility] Physical Exam - Constitutional Appears: Non-toxic, Older Than Stated Age, Agitated, Chronically Ill - Head Exam Head Exam: ATRAUMATIC, NORMOCEPHALIC - Eye Exam Eye Exam: EOMI, PERRL. absent: Conjunctival injection, Scleral icterus Pupil Exam: NORMAL ACCOMODATION, PERRL. absent: Irregular, Unequal - ENT Exam ENT Exam: Mucous Membranes Dry - Respiratory Exam Respiratory Exam: Clear to Auscultation Bilateral, NORMAL BREATHING PATTERN. absent: Accessory Muscle Use, Chest Wall Tenderness, Rales, Rhonchi, Wheezes - Cardiovascular Exam Cardiovascular Exam: RRR, +S1, +S2. absent: Bradycardia, Tachycardia, Systolic Murmur - GI/Abdominal Exam GI & Abdominal Exam: Normal Bowel Sounds, Soft. absent: Distended, Firm, Guarding, Rebound, Rigid, Tenderness - Extremities Exam Extremities exam: Positive for: pedal pulses present. Negative for: calf tenderness, pedal edema Additional comments: R mid foot amputation. No ulcers or open lesions noted. + peripheral neuropathy/ unable to feel sensation ob b/l lower legs - Neurological Exam Neurological exam: Alert, CN II-XII Intact, Motor Sensory Deficit, Oriented x3, Reflexes Normal Additional comments: Dull/Sharp sensation intact except for b/l hands, lower extermity below knee ( pt states its from chronic DM neuropathy), unchanged from her baseline. Motor sensation 4/5 b/l. B/l hand tremors noted at rest. - Psychiatric Exam Psychiatric exam: Anxious, Normal Affect - Skin Skin Exam: Dry, Normal Color, Warm Results - Vital Signs Recent Vital Signs: Last Vital Signs Temp 97.8 F 01/27/17 21:30 Pulse 92 H 01/27/17 21:37 Resp 12 01/27/17 21:37 BP 132/66 01/27/17 21:37 Pulse Ox 99 01/27/17 21:37 - Labs Result Diagrams: 01/27/17 18:34 01/28/17 00:45 Labs: Laboratory Results - last 24 hr 01/27/17 01/27/17 01/27/17 18:27 18:30 18:34 WBC 18.2 H D RBC 4.65 Hgb 13.1 Hct 36.7 MCV 78.9 L MCH 28.2 MCHC 35.7 RDW 13.3 Plt Count 252 MPV 10.4 Gran % 90.2 H Lymph % (Auto) 4.7 L [place] % (Auto) 5.0 Eos % (Auto) 0.0 L Baso % (Auto) 0.1 Gran # 16.38 H Lymph # 0.9 L [place] # 0.9 H Eos # 0.0 Baso # 0.02 Neutrophils % (Manual) 88 H Lymphocytes % (Manual) 7 L Monocytes % (Manual) 5 Toxic Granulation 2+ Platelet Evaluation Normal Hypochromasia 1+ Rouleaux 2+ PT INR APTT pO2 VBG pH VBG pCO2 VBG HCO3 VBG Total CO2 VBG O2 Sat (Calc) VBG Base Excess VBG Potassium Glucose Lactate FiO2 Sodium Potassium Chloride Carbon Dioxide Anion Gap BUN Creatinine Est GFR ( Amer) Est GFR (Non-Af Amer) POC Glucose (mg/dL) 488 H* Random Glucose Serum Osmolality Calcium Phosphorus Magnesium Total Bilirubin AST ALT Alkaline Phosphatase Lactate Dehydrogenase 631 Total Creatine Kinase 47 Troponin I 0.01 Total Protein Albumin Globulin Albumin/Globulin Ratio Lipase Venous Blood Potassium Urine Color Urine Appearance Urine pH Ur Specific [place] Urine Protein Urine Glucose (UA) Urine Ketones Urine Blood Urine Nitrate Urine Bilirubin Urine Urobilinogen Ur Leukocyte Esterase Urine RBC Urine WBC Ur Epithelial Cells Amorphous Sediment Urine Bacteria Urine Osmolality Ur Random Creatinine Ur Random Sodium Ur Random Potassium Urine HCG, Qual Urine Opiates Screen Urine Methadone Screen Ur Barbiturates Screen Ur Phencyclidine Scrn Ur Amphetamines Screen U Benzodiazepines Scrn U Oth Cocaine Metabols U Cannabinoids Screen 01/27/17 01/27/17 01/27/17 18:34 18:34 18:34 WBC RBC Hgb Hct MCV MCH MCHC RDW Plt Count MPV Gran % Lymph % (Auto) [place] % (Auto) Eos % (Auto) Baso % (Auto) Gran # Lymph # [place] # Eos # Baso # Neutrophils % (Manual) Lymphocytes % (Manual) Monocytes % (Manual) Toxic Granulation Platelet Evaluation Hypochromasia Rouleaux PT 10.7 INR 0.99 APTT 24.7 pO2 VBG pH VBG pCO2 VBG HCO3 VBG Total CO2 VBG O2 Sat (Calc) VBG Base Excess VBG Potassium Glucose Lactate FiO2 Sodium 132 Potassium 3.9 Chloride 88 L Carbon Dioxide 27 Anion Gap 21 H BUN 30 H Creatinine 0.9 Est GFR ( Amer) > 60 Est GFR (Non-Af Amer) > 60 POC Glucose (mg/dL) Random Glucose 513 H* D Serum Osmolality 313 H Calcium 9.4 Phosphorus 5.1 H Magnesium 1.7 Total Bilirubin 0.5 AST 31 ALT 27 Alkaline Phosphatase 100 Lactate Dehydrogenase Total Creatine Kinase Troponin I Total Protein 6.5 Albumin 3.9 Globulin 2.6 Albumin/Globulin Ratio 1.5 Lipase 38 Venous Blood Potassium Urine Color Urine Appearance Urine pH Ur Specific [place] Urine Protein Urine Glucose (UA) Urine Ketones Urine Blood Urine Nitrate Urine Bilirubin Urine Urobilinogen Ur Leukocyte Esterase Urine RBC Urine WBC Ur Epithelial Cells Amorphous Sediment Urine Bacteria Urine Osmolality Ur Random Creatinine Ur Random Sodium Ur Random Potassium Urine HCG, Qual Urine Opiates Screen Urine Methadone Screen Ur Barbiturates Screen Ur Phencyclidine Scrn Ur Amphetamines Screen U Benzodiazepines Scrn U Oth Cocaine Metabols U Cannabinoids Screen 01/27/17 01/27/17 01/27/17 18:58 19:13 20:40 WBC RBC Hgb Hct MCV MCH MCHC RDW Plt Count MPV Gran % Lymph % (Auto) [place] % (Auto) Eos % (Auto) Baso % (Auto) Gran # Lymph # [place] # Eos # Baso # Neutrophils % (Manual) Lymphocytes % (Manual) Monocytes % (Manual) Toxic Granulation Platelet Evaluation Hypochromasia Rouleaux PT INR APTT pO2 45 VBG pH 7.37 VBG pCO2 52.0 VBG HCO3 30.1 H VBG Total CO2 31.7 H VBG O2 Sat (Calc) 83.0 H VBG Base Excess 3.6 H VBG Potassium 3.9 Glucose 502 H* D Lactate 6.1 H* FiO2 21.0 Sodium 135.0 Potassium Chloride 89.0 L Carbon Dioxide Anion Gap BUN Creatinine Est GFR ( Amer) Est GFR (Non-Af Amer) POC Glucose (mg/dL) 442 H* Random Glucose Serum Osmolality Calcium Phosphorus Magnesium Total Bilirubin AST ALT Alkaline Phosphatase Lactate Dehydrogenase Total Creatine Kinase Troponin I Total Protein Albumin Globulin Albumin/Globulin Ratio Lipase Venous Blood Potassium 3.9 Urine Color Yellow Urine Appearance Clear Urine pH 6.5 Ur Specific [place] 1.020 Urine Protein >=300 H Urine Glucose (UA) >=1000 Urine Ketones 40 H Urine Blood Moderate H Urine Nitrate Negative Urine Bilirubin Negative Urine Urobilinogen 0.2 Ur Leukocyte Esterase Negative Urine RBC 15 - 20 Urine WBC 2 - 5 Ur Epithelial Cells 6 - 8 Amorphous Sediment Trace Urine Bacteria Trace Urine Osmolality Ur Random Creatinine Ur Random Sodium Ur Random Potassium Urine HCG, Qual Negative Urine Opiates Screen Urine Methadone Screen Ur Barbiturates Screen Ur Phencyclidine Scrn Ur Amphetamines Screen U Benzodiazepines Scrn U Oth Cocaine Metabols U Cannabinoids Screen 01/27/17 01/27/17 01/27/17 20:40 20:40 21:22 WBC RBC Hgb Hct MCV MCH MCHC RDW Plt Count MPV Gran % Lymph % (Auto) [place] % (Auto) Eos % (Auto) Baso % (Auto) Gran # Lymph # [place] # Eos # Baso # Neutrophils % (Manual) Lymphocytes % (Manual) Monocytes % (Manual) Toxic Granulation Platelet Evaluation Hypochromasia Rouleaux PT INR APTT pO2 VBG pH VBG pCO2 VBG HCO3 VBG Total CO2 VBG O2 Sat (Calc) VBG Base Excess VBG Potassium Glucose Lactate FiO2 Sodium Potassium Chloride Carbon Dioxide Anion Gap BUN Creatinine Est GFR ( Amer) Est GFR (Non-Af Amer) POC Glucose (mg/dL) 295 H Random Glucose Serum Osmolality Calcium Phosphorus Magnesium Total Bilirubin AST ALT Alkaline Phosphatase Lactate Dehydrogenase Total Creatine Kinase Troponin I Total Protein Albumin Globulin Albumin/Globulin Ratio Lipase Venous Blood Potassium Urine Color Urine Appearance Urine pH Ur Specific [place] Urine Protein Urine Glucose (UA) Urine Ketones Urine Blood Urine Nitrate Urine Bilirubin Urine Urobilinogen Ur Leukocyte Esterase Urine RBC Urine WBC Ur Epithelial Cells Amorphous Sediment Urine Bacteria Urine Osmolality 597 Ur Random Creatinine 25 Ur Random Sodium 56 Ur Random Potassium 27.3 Urine HCG, Qual Urine Opiates Screen Negative Urine Methadone Screen Negative Ur Barbiturates Screen Negative Ur Phencyclidine Scrn Negative Ur Amphetamines Screen Negative U Benzodiazepines Scrn Positive H U Oth Cocaine Metabols Negative U Cannabinoids Screen Negative Assessment & Plan - Assessment and Plan (Free Text) Assessment: 56F with PMH significant for IDDM, TIA, HTN, orthostatic hypotension, gastroparesis, admitted to ICU for DKA management and workup for AMS. Plan: AMS likely 2/2 DKA vs sepsis (less likely) vs seizures vs home med benzo use: - IVF + 30mEQ Kcl @150/h, Regular insulin drip (DKA protocol) Algorithm 1 at 5 units/hr - BS q1h, neuro check q1h, bmp, mg and phosph q4h. - received 2l NS and 1 dose Vanc and Zosyn in ED (concern for meningitis - initial complaint of neck pain?) - Will give 1 additional dose of Zosyn. F/u ID c/s - Lactate elevated 6.1. Will trend. - CXR neg for infiltrates, UA neg for nitrite and leuk bebe, + 40 ketones, moderate blood, glucose >1000, protein 300 - Head CT neg for acute findings/edema. Consider repeat head CT in AM. - NPO with ice chips - f/u hgb a1c and stool c diff. High AG MA: - Likely 2/2 DKA vs uremia (less likely) - BUN 30, Cr 0.9, likely dehydrated - On admission, Agap 17. - Will follow DKA protocol, until agap closes. Lactic acidosis: - 2/2 likely DKA vs metformin usage vs infx etiology vs tissue hypoxia - f/u procal - Tx DKA - Hold metformin HTN: - BP on low side 94/59. hold home anti-HTN med. Hx of orthostatic hypotension: - C/w home med midodrine Hx of gastroparesis, peripheral neuropathy, chronic pain: - Hold home med tramadol, librax, Gabapentin due to recent AMS changes Prolonged QTc on EKG: - EKG showed HR 85, prolonged QTC 518 ms on home med Amitriptyline. will hold currently inpatient. cont to monitor QTc. Avoid QTc prolonging drugs. - pt on home med amitriptline. Will hold inpatient. Discussed with Dr. Kirby. Maria Dolores Diaz, PGY1 - Date & Time Date: 01/28/17 Time: 01:00 <Mirta KIMBALL,Noel - Last Filed: 01/28/17 10:21> Meds - Medications Medications: Current Medications Acetaminophen (Tylenol 325mg Tab) 650 mg PO Q6H PRN PRN Reason: Pain, moderate (4-7) Last Admin: 01/28/17 07:53 Dose: 650 mg Aspirin (Ecotrin) 81 mg PO DAILY [facility] Last Admin: 01/28/17 09:20 Dose: 81 mg Duloxetine HCl (Cymbalta) 60 mg PO DAILY [facility] Last Admin: 01/28/17 09:17 Dose: 60 mg Ceftriaxone Sodium (Rocephin 1 Gram Ivpb) 1 gm in 100 mls @ 100 mls/hr IVPB DAILY [facility] PRN Reason: Protocol Last Admin: 01/28/17 09:20 Dose: 100 mls/hr Potassium Chloride/Dextrose/Sod Cl (Potassium Chl 30 Meq In D5-1/2ns) 1,000 mls @ 200 mls/hr IV .Q5H [facility] Last Admin: 01/28/17 06:24 Dose: 200 mls/hr Vancomycin HCl (Vancomycin 1gm) 1 gm in 250 mls @ 167 mls/hr IVPB Q12H [facility] PRN Reason: Protocol Last Admin: 01/28/17 07:39 Dose: 167 mls/hr Insulin Detemir (Levemir) 10 unit SC Q12 [facility] Last Admin: 01/28/17 09:21 Dose: Not Given Insulin Human Regular (Humulin R Low) 0 units SC ACHS [facility] PRN Reason: Protocol Last Admin: 01/28/17 07:36 Dose: Not Given Metoclopramide HCl (Reglan) 5 mg PO BID [facility] Last Admin: 01/28/17 09:20 Dose: 5 mg Midodrine (Proamatine) 2.5 mg PO DAILY [facility] Last Admin: 01/28/17 09:17 Dose: 2.5 mg Pantoprazole Sodium (Protonix Ec Tab) 40 mg PO ACB [facility] Last Admin: 01/28/17 07:39 Dose: 40 mg Results - Vital Signs Recent Vital Signs: Last Vital Signs Temp 97.6 F 01/28/17 04:00 Pulse 92 H 01/28/17 08:40 Resp 20 01/28/17 08:40 BP 176/100 H 01/28/17 08:15 Pulse Ox 100 01/28/17 08:40 - Labs Result Diagrams: 01/28/17 06:05 01/28/17 09:30 Labs: Laboratory Results - last 24 hr 01/27/17 01/27/17 01/27/17 20:40 20:40 20:40 WBC RBC Hgb Hct MCV MCH MCHC RDW Plt Count MPV pO2 VBG pH VBG pCO2 VBG HCO3 VBG Total CO2 VBG O2 Sat (Calc) VBG Base Excess VBG Potassium Sodium Chloride Glucose Lactate FiO2 Potassium Carbon Dioxide Anion Gap BUN Creatinine Est GFR ( Amer) Est GFR (Non-Af Amer) POC Glucose (mg/dL) Random Glucose Calcium Phosphorus Magnesium Total Bilirubin AST ALT Alkaline Phosphatase Total Creatine Kinase Total Protein Albumin Globulin Albumin/Globulin Ratio Venous Blood Potassium Urine Color Yellow Urine Appearance Clear Urine pH 6.5 Ur Specific [place] 1.020 Urine Protein >=300 H Urine Glucose (UA) >=1000 Urine Ketones 40 H Urine Blood Moderate H Urine Nitrate Negative Urine Bilirubin Negative Urine Urobilinogen 0.2 Ur Leukocyte Esterase Negative Urine RBC 15 - 20 Urine WBC 2 - 5 Ur Epithelial Cells 6 - 8 Amorphous Sediment Trace Urine Bacteria Trace Urine Osmolality 597 Ur Random Creatinine 25 Ur Random Sodium 56 Ur Random Potassium 27.3 Urine HCG, Qual Negative Urine Opiates Screen Negative Urine Methadone Screen Negative Ur Barbiturates Screen Negative Ur Phencyclidine Scrn Negative Ur Amphetamines Screen Negative U Benzodiazepines Scrn Positive H U Oth Cocaine Metabols Negative U Cannabinoids Screen Negative 01/27/17 01/27/17 01/27/17 21:22 22:24 22:59 WBC RBC Hgb Hct MCV MCH MCHC RDW Plt Count MPV pO2 47 VBG pH 7.38 VBG pCO2 54.0 VBG HCO3 31.9 H VBG Total CO2 33.6 H VBG O2 Sat (Calc) 84.4 H VBG Base Excess 5.3 H VBG Potassium 3.5 L Sodium 138.0 Chloride 98.0 Glucose 248 H Lactate 3.9 H FiO2 21.0 Potassium Carbon Dioxide Anion Gap BUN Creatinine Est GFR ( Amer) Est GFR (Non-Af Amer) POC Glucose (mg/dL) 295 H 243 H Random Glucose Calcium Phosphorus Magnesium Total Bilirubin AST ALT Alkaline Phosphatase Total Creatine Kinase Total Protein Albumin Globulin Albumin/Globulin Ratio Venous Blood Potassium 3.5 L Urine Color Urine Appearance Urine pH Ur Specific [place] Urine Protein Urine Glucose (UA) Urine Ketones Urine Blood Urine Nitrate Urine Bilirubin Urine Urobilinogen Ur Leukocyte Esterase Urine RBC Urine WBC Ur Epithelial Cells Amorphous Sediment Urine Bacteria Urine Osmolality Ur Random Creatinine Ur Random Sodium Ur Random Potassium Urine HCG, Qual Urine Opiates Screen Urine Methadone Screen Ur Barbiturates Screen Ur Phencyclidine Scrn Ur Amphetamines Screen U Benzodiazepines Scrn U Oth Cocaine Metabols U Cannabinoids Screen 01/28/17 01/28/17 01/28/17 00:02 00:45 00:45 WBC RBC Hgb Hct MCV MCH MCHC RDW Plt Count MPV pO2 29 L VBG pH 7.35 VBG pCO2 61.0 H VBG HCO3 33.7 H VBG Total CO2 35.6 H VBG O2 Sat (Calc) 59.9 VBG Base Excess 6.1 H VBG Potassium 3.5 L Sodium 137 138.0 Chloride 94 L 98.0 Glucose 199 H Lactate 3.1 H FiO2 21.0 Potassium 3.6 Carbon Dioxide 32 Anion Gap 15 BUN 30 H Creatinine 1.0 Est GFR ( Amer) > 60 Est GFR (Non-Af Amer) 57 POC Glucose (mg/dL) 241 H Random Glucose 196 H Calcium 8.6 Phosphorus 3.7 Magnesium 1.5 L Total Bilirubin AST ALT Alkaline Phosphatase Total Creatine Kinase Total Protein Albumin Globulin Albumin/Globulin Ratio Venous Blood Potassium 3.5 L Urine Color Urine Appearance Urine pH Ur Specific [place] Urine Protein Urine Glucose (UA) Urine Ketones Urine Blood Urine Nitrate Urine Bilirubin Urine Urobilinogen Ur Leukocyte Esterase Urine RBC Urine WBC Ur Epithelial Cells Amorphous Sediment Urine Bacteria Urine Osmolality Ur Random Creatinine Ur Random Sodium Ur Random Potassium Urine HCG, Qual Urine Opiates Screen Urine Methadone Screen Ur Barbiturates Screen Ur Phencyclidine Scrn Ur Amphetamines Screen U Benzodiazepines Scrn U Oth Cocaine Metabols U Cannabinoids Screen 01/28/17 01/28/17 01/28/17 01:16 01:55 03:05 WBC RBC Hgb Hct MCV MCH MCHC RDW Plt Count MPV pO2 VBG pH VBG pCO2 VBG HCO3 VBG Total CO2 VBG O2 Sat (Calc) VBG Base Excess VBG Potassium Sodium Chloride Glucose Lactate FiO2 Potassium Carbon Dioxide Anion Gap BUN Creatinine Est GFR ( Amer) Est GFR (Non-Af Amer) POC Glucose (mg/dL) 171 H 137 H 94 Random Glucose Calcium Phosphorus Magnesium Total Bilirubin AST ALT Alkaline Phosphatase Total Creatine Kinase Total Protein Albumin Globulin Albumin/Globulin Ratio Venous Blood Potassium Urine Color Urine Appearance Urine pH Ur Specific [place] Urine Protein Urine Glucose (UA) Urine Ketones Urine Blood Urine Nitrate Urine Bilirubin Urine Urobilinogen Ur Leukocyte Esterase Urine RBC Urine WBC Ur Epithelial Cells Amorphous Sediment Urine Bacteria Urine Osmolality Ur Random Creatinine Ur Random Sodium Ur Random Potassium Urine HCG, Qual Urine Opiates Screen Urine Methadone Screen Ur Barbiturates Screen Ur Phencyclidine Scrn Ur Amphetamines Screen U Benzodiazepines Scrn U Oth Cocaine Metabols U Cannabinoids Screen 01/28/17 01/28/17 01/28/17 04:02 05:08 06:01 WBC RBC Hgb Hct MCV MCH MCHC RDW Plt Count MPV pO2 VBG pH VBG pCO2 VBG HCO3 VBG Total CO2 VBG O2 Sat (Calc) VBG Base Excess VBG Potassium Sodium Chloride Glucose Lactate FiO2 Potassium Carbon Dioxide Anion Gap BUN Creatinine Est GFR ( Amer) Est GFR (Non-Af Amer) POC Glucose (mg/dL) 107 114 H 127 H Random Glucose Calcium Phosphorus Magnesium Total Bilirubin AST ALT Alkaline Phosphatase Total Creatine Kinase Total Protein Albumin Globulin Albumin/Globulin Ratio Venous Blood Potassium Urine Color Urine Appearance Urine pH Ur Specific [place] Urine Protein Urine Glucose (UA) Urine Ketones Urine Blood Urine Nitrate Urine Bilirubin Urine Urobilinogen Ur Leukocyte Esterase Urine RBC Urine WBC Ur Epithelial Cells Amorphous Sediment Urine Bacteria Urine Osmolality Ur Random Creatinine Ur Random Sodium Ur Random Potassium Urine HCG, Qual Urine Opiates Screen Urine Methadone Screen Ur Barbiturates Screen Ur Phencyclidine Scrn Ur Amphetamines Screen U Benzodiazepines Scrn U Oth Cocaine Metabols U Cannabinoids Screen 01/28/17 01/28/17 01/28/17 06:05 06:05 06:05 WBC 13.2 H D RBC 4.22 Hgb 11.6 L Hct 33.8 L MCV 80.1 MCH 27.5 MCHC 34.3 RDW 13.7 Plt Count 249 MPV 10.1 pO2 94 H VBG pH 7.30 L VBG pCO2 66.0 H* VBG HCO3 32.5 H VBG Total CO2 34.5 H VBG O2 Sat (Calc) 95.6 H VBG Base Excess 4.3 H VBG Potassium 3.8 Sodium 139 138.0 Chloride 100 101.0 Glucose 106 H Lactate 2.2 H FiO2 21.0 Potassium 3.8 Carbon Dioxide 29 Anion Gap 14 BUN 31 H Creatinine 1.0 Est GFR ( Amer) > 60 Est GFR (Non-Af Amer) 57 POC Glucose (mg/dL) Random Glucose 103 Calcium 8.4 Phosphorus 3.6 Magnesium 1.8 Total Bilirubin 0.3 AST 26 ALT 24 Alkaline Phosphatase 84 Total Creatine Kinase 43 Total Protein 5.7 L Albumin 3.2 Globulin 2.5 Albumin/Globulin Ratio 1.3 Venous Blood Potassium 3.8 Urine Color Urine Appearance Urine pH Ur Specific [place] Urine Protein Urine Glucose (UA) Urine Ketones Urine Blood Urine Nitrate Urine Bilirubin Urine Urobilinogen Ur Leukocyte Esterase Urine RBC Urine WBC Ur Epithelial Cells Amorphous Sediment Urine Bacteria Urine Osmolality Ur Random Creatinine Ur Random Sodium Ur Random Potassium Urine HCG, Qual Urine Opiates Screen Urine Methadone Screen Ur Barbiturates Screen Ur Phencyclidine Scrn Ur Amphetamines Screen U Benzodiazepines Scrn U Oth Cocaine Metabols U Cannabinoids Screen 01/28/17 01/28/17 06:57 09:30 WBC RBC Hgb Hct MCV MCH MCHC RDW Plt Count MPV pO2 VBG pH VBG pCO2 VBG HCO3 VBG Total CO2 VBG O2 Sat (Calc) VBG Base Excess VBG Potassium Sodium 139 Chloride 101 Glucose Lactate FiO2 Potassium 4.0 Carbon Dioxide 29 Anion Gap 13 BUN 25 H Creatinine 0.9 Est GFR ( Amer) > 60 Est GFR (Non-Af Amer) > 60 POC Glucose (mg/dL) 111 H Random Glucose 98 Calcium 8.7 Phosphorus 3.1 Magnesium 1.8 Total Bilirubin AST ALT Alkaline Phosphatase Total Creatine Kinase Total Protein Albumin Globulin Albumin/Globulin Ratio Venous Blood Potassium Urine Color Urine Appearance Urine pH Ur Specific [place] Urine Protein Urine Glucose (UA) Urine Ketones Urine Blood Urine Nitrate Urine Bilirubin Urine Urobilinogen Ur Leukocyte Esterase Urine RBC Urine WBC Ur Epithelial Cells Amorphous Sediment Urine Bacteria Urine Osmolality Ur Random Creatinine Ur Random Sodium Ur Random Potassium Urine HCG, Qual Urine Opiates Screen Urine Methadone Screen Ur Barbiturates Screen Ur Phencyclidine Scrn Ur Amphetamines Screen U Benzodiazepines Scrn U Oth Cocaine Metabols U Cannabinoids Screen Attending/Attestation - Attestation I have personally seen and examined this patient.: Yes I have fully participated in the care of the patient.: Yes I have reviewed all pertinent clinical information: Yes Notes (Text): 01/28/17 10:11 -I agree with the above ICU consult H&P competed by the resident physician with the following additions and/or changes: The patient is a 56 year old woman with a history of CVA (s/p t-PA in 2017) and poorly controlled IDDM (with associated gastroparesis, orthostatic hypotension, right mid-foot amputation and neuropathy), who was found with altered mental status and fecal incontinence in her bed, approx 3 hrs prior to ED arrival. She is being admitted to the ICU for a likely mixed acid-base disorder due to DKA( vs HHS) and sepsis. She will be started on Insulin drip with aggressive hydration. She has been afebrile and has no signs or symptoms of meningitis. The ddx for her brief AMS includes: DKA vs Sepsis vs Syncope vs Seizure vs Medication side effects). She has been started on empiric IV antibiotics and an ID consult placed. Also, a neurology consult has been placed and serial neuro checks will be monitored. Because her ED EKG showed slight QTc prolongation, all of her home meds which can potentially prolong QTc (i.e- Amitrypline) will be held for now. If overnight, the pt develops fevers, worsening leukocytosis or deteriorating mentation, then ONLY will consider meningitis as possible etiology (but suspicion currently low given lack of characteristic physical exam findings and fevers).
[2017-01-27 22:48] LABS: VENOUS BLOOD GAS BASE EXCESS 5.3 mmol/L (0.0-2.0); VENOUS BLOOD PH 7.38 (7.32-7.43)
[2017-01-27] MEDS ORDERED: Morphine 2 mg/ml ISec IVP STA (23:35)
[2017-01-28 01:04] LABS: VENOUS BLOOD GAS BASE EXCESS 6.1 mmol/L (0.0-2.0); VENOUS BLOOD PH 7.35 (7.32-7.43)
[2017-01-28 01:11] LABS: BLOOD UREA NITROGEN 30 mg/dL (7-21); CALCIUM 8.6 mg/dL (8.4-10.5); CARBON DIOXIDE 32 mmol/L (21-33); CHLORIDE 94 mmol/L (95-110); GFR AFRICAN-AMERICAN > 60; GLUCOSE,RANDOM 196 mg/dL (70-110); MAGNESIUM 1.5 mg/dL (1.7-2.2); PHOSPHOROUS 3.7 mg/dL (2.5-4.5); POTASSIUM 3.6 mmol/L (3.6-5.0); SODIUM 137 mmol/L (132-148)
[2017-01-28] MEDS ORDERED: Sodium Chloride 0.9% 1,000 ML IV STA (01:55)
--- NOTE | 2017-01-28 02:10 | HP ---
HISTORY OF PRESENT ILLNESS: I was called down to the emergency room because someone called to the ER about the patient. She comes in with a very high blood sugar. She was also unresponsive. She is now responsive and talking. The daughter reports finding a foul odor from her and not doing well. She has slurred speech. She was unable to move her extremities; now, in the ER, she is doing much better. Her blood sugar was over 500 in the ER with a 70/40 blood pressure. PAST MEDICAL HISTORY: Hypertension, CVA, diabetes, TIA, bilateral cataracts, 10 wilbert on the back of her head from fall. 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 She has depression. 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 FAMILY HISTORY: Hypertension and diabetes in the family. SOCIAL HISTORY: Never smoked. No drugs. No alcohol. ALLERGIES: NO KNOWN DRUG ALLERGIES. MEDICATIONS: She takes Prinivil, Reglan, Cymbalta, Humalog, omeprazole, Lasix, Imdur, Trandate, ProAmatine, Elavil, gabapentin, Levemir and Librax. REVIEW OF SYSTEMS: She is definitely off a little bit. No acute vision changes or hearing changes, but she was unresponsive for a while. No chest pain or shortness of breath at this time. No abdominal pain. No nausea, vomiting or diarrhea. She was hypotensive when she came in. There was no headache or dizziness. No sweating. No anxiety or depression. PHYSICAL EXAMINATION VITAL SIGNS: She has 95 pulse, 19 respiratory rate, 94/59 blood pressure and 94% O2 sat. Temperature is not recorded yet. GENERAL: At this time, she is comfortable, nontoxic, coming out of the unresponsiveness. She is alert and oriented x3. Not sure what happened. Blood sugar is between 500 and 488. HEENT: Head is atraumatic and normocephalic, although there were 10 wilbert on the back of her head. Extraocular muscles are intact. Pupils are equal and reactive to light and accommodation. Throat is dry. NECK: Supple. HEART: Regular rate. Normal S1 and S2. LUNGS: Decreased breath sounds, but clear. ABDOMEN: Soft, nontender and positive bowel sounds. Multiple abdominal scars. EXTREMITIES: No edema of the extremities. NEUROLOGIC: GCS is 15. Cranial nerves II through XII grossly intact. Speech is normal at this time. She is weak. Alert and oriented x3. NODES: Thyroid midline. No palpable or appreciable lymphadenopathy. LABORATORY DATA: She had multiple tests. She has 132 sodium, potassium 3.9; BUN 30; creatinine 0.9; GFR is greater than 60; sugar are 448, 442, it was over 500 in the field; calcium 9.4; phosphorus 5.1; magnesium 1.7; total bili is 0.5; AST is 31; ALT is 27; alk phos is 100; total protein is 6.5; albumin is 3.9; globulin 2.6; lipase 38. INR 0.99. She has 18,200 white count, very elevated; hemoglobin 13.1; hematocrit 36.7; platelets are 252. She had a CAT scan of the head and chest x-ray which are pending. She might be going to the intensive care unit. She came in unresponsive with very low blood pressure. She is on IV fluids. She will have consults with cardiology, endocrinology and infectious disease. Given IV antibiotics. Possibly will go to the intensive care unit. She is quite sick. Josafat Dent DO
--- NOTE | 2017-01-28 02:15 | PCM.SEPTIC ---
<Katherine Prasad - Last Filed: 01/28/17 05:50> Sepsis Progress Note - Reassessment Type Date of Evaluation: 01/28/17 Time of Evaluation: 02:14 Reassessment Type: Non-invasive reassessment - Non Invasive Reassessment Were the most recent vital sign reviewed: Yes Vital Sign (Latest): Temp Pulse Resp BP Pulse Ox 97.8 F 90 16 134/70 99 01/27/17 21:30 01/27/17 22:20 01/27/17 22:20 01/27/17 22:20 01/27/17 22:20 Cardiovascular: Yes: Regular Rate, Rhythm Respiratory: Yes: Normal Breath Sounds Capillary Refill: Normal (Less than 2 sec) Pulses: Normal Radial, Normal Posterior Tibialis Skin: Normal Color, Warm, Dry (lactate trending down to 3.1) <Noel Kirby MD - Last Filed: 01/28/17 10:22> Sepsis Progress Note - Non Invasive Reassessment Vital Sign (Latest): Temp Pulse Resp BP Pulse Ox 97.6 F 92 H 20 176/100 H 100 01/28/17 04:00 01/28/17 08:40 01/28/17 08:40 01/28/17 08:15 01/28/17 08:40 Attending/Attestation - Attestation I have personally seen and examined this patient.: Yes I have fully participated in the care of the patient.: Yes I have reviewed all pertinent clinical information, including history, physical exam and plan: Yes Notes (Text): 01/28/17 10:22 -I agree with the above Sepsis note completed by the resident physician.
[2017-01-28] MEDS ORDERED: Piperacillin/Tazobact 3.375 gm 100 ML IVPB ONE (04:00)
[2017-01-28] MEDS ORDERED: Magnesium Sulfate 1 gm in D5W 1 GM/100 ML BAG IVPB ONE (04:25)
[2017-01-28] MEDS: Potassium Chl 30 mEq in D5-1/2 1,000 ML IV SCH ×3 (04:45→11:43)
[2017-01-28] MEDS ORDERED: Insulin Detemir 100 units/ml Vial (Levemir) SC SCH (05:15)
[2017-01-28] MEDS ORDERED: Insulin Detemir 100 units/ml Vial (Levemir) SC ONE (05:45)
[2017-01-28 06:02] VITALS: BMI 22.3
[2017-01-28 06:50] LABS: HEMATOCRIT 33.8 % (36.0-48.0); MEAN CELL VOLUME 80.1 fl (80.0-105.0); MEAN CORPUSCULAR HEMOGLOBIN 27.5 pg (25.0-35.0); MEAN CORPUSCULAR HGB CONC 34.3 g/dl (31.0-37.0); MEAN PLATELET VOLUME 10.1 fl (7.0-11.0); RED CELL DISTRIBUTION WIDTH 13.7 % (11.5-14.5); WHITE BLOOD COUNT 13.2 10^3/ul (4.5-11.0)
[2017-01-28 06:51] LABS: VENOUS BLOOD GAS BASE EXCESS 4.3 mmol/L (0.0-2.0)
[2017-01-28] MEDS ORDERED: Vancomycin 1gm in NS 250ml 1 GM/250 ML BAG IVPB SCH (07:00)
[2017-01-28 07:15] LABS: ALB/GLOB RATIO 1.3 (1.1-1.8); ALKALINE PHOSPHATASE 84 U/L (38-133); ALT/SGPT 24 U/L (7-56); AST/SGOT 26 U/L (15-39); BILIRUBIN,TOTAL 0.3 mg/dL (0.2-1.3); BLOOD UREA NITROGEN 31 mg/dL (7-21); CALCIUM 8.4 mg/dL (8.4-10.5); CARBON DIOXIDE 29 mmol/L (21-33); CHLORIDE 100 mmol/L (98-107); GFR AFRICAN-AMERICAN > 60; GLUCOSE,RANDOM 103 mg/dL (70-110); MAGNESIUM 1.8 mg/dL (1.7-2.2); PHOSPHOROUS 3.6 mg/dL (2.5-4.5); POTASSIUM 3.8 mmol/L (3.6-5.0); SODIUM 139 mmol/L (132-148); TOTAL PROTEIN 5.7 g/dL (5.8-8.3)
[2017-01-28] MEDS ORDERED: Pantoprazole 40 mg EC Tab PO SCH (07:30)
[2017-01-28] MEDS: Insulin Reg-LOW-Coverage SC SCH ×4 (07:36→22:50)
--- NOTE | 2017-01-28 08:38 | RAD ---
PROCEDURE: CHEST RADIOGRAPH, 1 VIEW HISTORY: Sepsis Patient COMPARISON: 12/31/2016 FINDINGS: LUNGS: Clear. PLEURA: No pneumothorax or pleural fluid seen. CARDIOVASCULAR: Normal. OSSEOUS STRUCTURES: No significant abnormalities. VISUALIZED UPPER ABDOMEN: Normal. OTHER FINDINGS: None. IMPRESSION: No active disease.
[2017-01-28] MEDS: Insulin Detemir 100 units/ml Vial (Levemir) SC SCH ×2 (09:21→22:57)
[2017-01-28 09:45] LABS: BLOOD UREA NITROGEN 25 mg/dL (7-21); CALCIUM 8.7 mg/dL (8.4-10.5); CARBON DIOXIDE 29 mmol/L (21-33); CHLORIDE 101 mmol/L (98-107); GFR AFRICAN-AMERICAN > 60; GLUCOSE,RANDOM 98 mg/dL (70-110); MAGNESIUM 1.8 mg/dL (1.7-2.2); PHOSPHOROUS 3.1 mg/dL (2.5-4.5); SODIUM 139 mmol/L (132-148)
[2017-01-28] MEDS ORDERED: Morphine 2 mg/ml ISec IVP STA (09:46)
--- NOTE | 2017-01-28 09:46 | CARD ---
APPROVED REPORT EKG Measurement Heart [id number] <Conclusion> Normal sinus rhythm with sinus arrhythmia Prolonged QT Abnormal ECG
--- NOTE | 2017-01-28 09:47 | CARD ---
APPROVED REPORT EKG Measurement Heart [id number] <Conclusion> Normal sinus rhythm with sinus arrhythmia Nonspecific ST abnormality Prolonged QT Abnormal ECG
[2017-01-28] MEDS ORDERED: CLIDINIUM PO SCH (10:00)
[2017-01-28] MEDS ORDERED: Non Formulary Medication (Omeprazole [Omeprazole] 40 MG) PO SCH (10:00)
[2017-01-28] MEDS ORDERED: CHLORDIAZEPOXIDE PO SCH (10:00)
[2017-01-28] MEDS ORDERED: cefTRIAXone 1 gm 1 GM/100 ML BAG IVPB SCH (10:00)
--- NOTE | 2017-01-28 10:57 | CARD ---
APPROVED REPORT EKG Measurement Heart [id number] <Conclusion> Sinus rhythm with marked sinus arrhythmia T wave abnormality, consider inferior ischemia Prolonged QT Abnormal ECG
[2017-01-28 11:04] LABS: ARTERIAL BLOOD GAS HCO3 26.5 mmol/L (21-28)
--- NOTE | 2017-01-28 12:26 | CP.PCM.CON ---
History of Present Illness - History of Present Illness History of Present Illness: 56 year old female with PMH of HTN, DM, gastroparesis, history of TIA, history of esophageal ulcers, S/P cholecystectomy, S/P , S/P hysterectomy, S/P right foot partial amputation was brought in to [facility] after she was noted by daughter to be unresponsive, with associated fecal incontinence. She was brought in to the ED hypotensive and lethargic but improved significantly with aggressive fluid resuscitation. Prior to the episode , she was having increased epigastric pain, with associated nausea and anorexia , polyuria, polydipsia. She denies fever or chills, no headache, no blurring of vision, no diarrhea, no dysuria, no flank pain. In the ED, she was also noted to have leukocytosis. Infectious diseases consult is requested to further evaluate and manage. Review of Systems - Review of Systems All systems: reviewed and no additional remarkable complaints except (as per HPI ) Past Patient History - Infectious Disease Hx of Infectious Diseases: None - Past Social History Smoking Status: Never Smoked - CARDIAC Hx Hypertension: Yes - PULMONARY Hx Respiratory Disorders: No - NEUROLOGICAL HX Cerebrovascular Accident: Yes (TIA) - HEENT Hx HEENT Problems: (reading glasses) Hx Cataracts: Yes (bilateral sx) - RENAL Hx Chronic Kidney Disease: No - ENDOCRINE/METABOLIC Hx Diabetes Mellitus Type 1: Yes - HEMATOLOGICAL/ONCOLOGICAL Hx Blood Transfusions: Yes Hx Blood Transfusion Reaction: No - INTEGUMENTARY Other/Comment: 10 wilbert to back of head - MUSCULOSKELETAL/RHEUMATOLOGICAL Hx Falls: Yes (past) - GASTROINTESTINAL Hx Gastroesophageal Reflux: Yes (had endo; lesions in the esophagus) Other/Comment: Diabetic Gastroparesis - GENITOURINARY/GYNECOLOGICAL Hx Genitourinary Disorders: No - PSYCHIATRIC Hx Psychophysiologic Disorder: Yes Hx Depression: Yes Hx Substance Use: No - SURGICAL HISTORY Other/Comment: Amputation of half the Rt. foot. - ANESTHESIA Hx Anesthesia: Yes Hx Anesthesia Reactions: No Hx Malignant Hyperthermia: No Meds Allergies/Adverse Reactions: Allergies Allergy/AdvReac Type Severity Reaction Status Date / Time No Known Allergies Allergy Verified 01/27/17 18:33 - Medications Medications: Current Medications Aspirin (Ecotrin) 81 mg PO DAILY PATTI Duloxetine HCl (Cymbalta) 60 mg PO DAILY PATTI Ceftriaxone Sodium (Rocephin 1 Gram Ivpb) 1 gm in 100 mls @ 100 mls/hr IVPB DAILY PATTI PRN Reason: Protocol Potassium Chloride 30 meq/ (Dextrose/Sodium Chloride) 1,015 mls @ 120 mls/hr IV .Q8H28M PATTI Insulin Human Regular 100 (units/ Sodium Chloride) 100 mls @ 5 mls/hr IV .Q20H PRN; Protocol; 5 UNITS/HR PRN Reason: TITRATE PER MD ORDER Piperacillin Sod/Tazobactam Sod (Zosyn 3.375 In Ns 100ml) 100 mls @ 200 mls/hr IVPB ONCE ONE PRN Reason: Protocol Stop: 01/28/17 04:29 Metoclopramide HCl (Reglan) 5 mg PO BID PATTI Pantoprazole Sodium (Protonix Ec Tab) 40 mg PO ACB PATTI Physical Exam - Constitutional Appears: Other (complaining of epigastric pain) - Head Exam Head Exam: NORMAL INSPECTION - ENT Exam ENT Exam: Mucous Membranes Moist - Neck Exam Neck exam: Negative for: Lymphadenopathy, Meningismus - Respiratory Exam Respiratory Exam: Decreased Breath Sounds - Cardiovascular Exam Cardiovascular Exam: +S1, +S2 - GI/Abdominal Exam GI & Abdominal Exam: Soft. absent: Tenderness Results - Vital Signs Recent Vital Signs: Last Vital Signs Temp 97.8 F 01/27/17 21:30 Pulse 90 01/27/17 22:20 Resp 16 01/27/17 22:20 BP 134/70 01/27/17 22:20 Pulse Ox 99 01/27/17 22:20 - Labs Result Diagrams: 01/28/17 06:05 01/28/17 09:30 Labs: Laboratory Results - last 24 hr 01/27/17 01/27/17 01/27/17 20:40 20:40 20:40 pO2 VBG pH VBG pCO2 VBG HCO3 VBG Total CO2 VBG O2 Sat (Calc) VBG Base Excess VBG Potassium Sodium Chloride Glucose Lactate FiO2 POC Glucose (mg/dL) Venous Blood Potassium Urine Color Yellow Urine Appearance Clear Urine pH 6.5 Ur Specific [place] 1.020 Urine Protein >=300 H Urine Glucose (UA) >=1000 Urine Ketones 40 H Urine Blood Moderate H Urine Nitrate Negative Urine Bilirubin Negative Urine Urobilinogen 0.2 Ur Leukocyte Esterase Negative Urine RBC 15 - 20 Urine WBC 2 - 5 Ur Epithelial Cells 6 - 8 Amorphous Sediment Trace Urine Bacteria Trace Urine Osmolality 597 Ur Random Creatinine 25 Ur Random Sodium 56 Ur Random Potassium 27.3 Urine HCG, Qual Negative Urine Opiates Screen Negative Urine Methadone Screen Negative Ur Barbiturates Screen Negative Ur Phencyclidine Scrn Negative Ur Amphetamines Screen Negative U Benzodiazepines Scrn Positive H U Oth Cocaine Metabols Negative U Cannabinoids Screen Negative 01/27/17 01/27/17 01/27/17 21:22 22:24 22:59 pO2 47 VBG pH 7.38 VBG pCO2 54.0 VBG HCO3 31.9 H VBG Total CO2 33.6 H VBG O2 Sat (Calc) 84.4 H VBG Base Excess 5.3 H VBG Potassium 3.5 L Sodium 138.0 Chloride 98.0 Glucose 248 H Lactate 3.9 H FiO2 21.0 POC Glucose (mg/dL) 295 H 243 H Venous Blood Potassium 3.5 L Urine Color Urine Appearance Urine pH Ur Specific [place] Urine Protein Urine Glucose (UA) Urine Ketones Urine Blood Urine Nitrate Urine Bilirubin Urine Urobilinogen Ur Leukocyte Esterase Urine RBC Urine WBC Ur Epithelial Cells Amorphous Sediment Urine Bacteria Urine Osmolality Ur Random Creatinine Ur Random Sodium Ur Random Potassium Urine HCG, Qual Urine Opiates Screen Urine Methadone Screen Ur Barbiturates Screen Ur Phencyclidine Scrn Ur Amphetamines Screen U Benzodiazepines Scrn U Oth Cocaine Metabols U Cannabinoids Screen Assessment & Plan - Assessment and Plan (Free Text) Plan: Assessment Systemic Inflammatory Response Syndrome, consider due to hyperosmolar, hyperglycemic state, so far no evidence of sepsis identified Gastroparesis with continued abdominal pain - needs further investigation HTN DM gastroparesis history of TIA history of esophageal ulcers S/P cholecystectomy S/P S/P hysterectomy S/P right foot partial amputation Plan Patient has been given a dose of IV Vancomycin, Zosyn and has been started on Rocephin - patient does not have urinary symptoms, CXR is negative - will monitor off antibiotics and follow up blood and urine cx, PCT; will also recommend CT scan of the abdomen and pelvis and GI evaluation will monitor clinically
--- NOTE | 2017-01-28 12:40 | CP.CCUPN ---
<MEG DELGADO - Last Filed: 01/28/17 12:34> CCU Subjective - Physician Review Subjective (Free Text): 01/28/17 12:35 Patient seen and assessed at bedside. Patient continues to complain of intractable epigastric abdominal pain that she reports is chronic and is well known to her PCP. Patient does report that she hasn't had any diarrhea or vomiting since her admission. Patient denies fever, chills, headache, changes in her vision, neck pain, dysphagia, chest pain, palpitations, shortness of breath, pleurisy, nausea, vomiting, diarrhea, constipation, or any burning/pain with urination. CCU Objective - Vital Signs / Intake & Output Vital Signs (Last 4 hours): Vital Signs Temp Pulse Resp BP Pulse Ox 01/28/17 12:20 86 7 L 99 01/28/17 12:10 85 19 100 01/28/17 12:00 98.3 F 85 20 167/91 H 100 01/28/17 11:50 87 20 100 01/28/17 11:40 92 H 19 100 01/28/17 11:30 88 41 H 100 01/28/17 11:20 90 14 100 01/28/17 11:10 88 12 100 01/28/17 11:00 90 21 171/104 H 100 01/28/17 10:50 90 100 01/28/17 10:40 92 H 97 H 100 01/28/17 10:30 92 H 99 01/28/17 10:20 92 H 18 100 01/28/17 10:10 98 H 53 H 100 01/28/17 10:00 92 H 17 177/90 H 100 01/28/17 09:50 93 H 61 H 100 01/28/17 09:40 93 H 35 H 100 01/28/17 09:30 94 H 20 100 01/28/17 09:20 96 H 100 01/28/17 09:10 96 H 43 H 100 01/28/17 09:01 90 68 H 173/77 H 100 01/28/17 09:00 90 15 99 01/28/17 08:50 91 H 15 99 01/28/17 08:40 92 H 20 100 Intake and Output (Last 8hrs): Intake & Output 01/27/17 01/28/17 01/28/17 22:59 06:59 14:59 Intake Total 2168 Output Total 350 700 Balance -350 1468 Weight 138 lb 3.2 oz 138 lb Intake: IV 1968 0.9NS IV Bolus 1000 Insulin 9 Right Antecubital 950 Oral 0 Tube Feeding 0 TPN/PPN 0 Blood Product 0 Lipid 0 Albumin 0 Other 200 Output: Urine 350 700 Urethral (Wan) 350 700 Stool 0 Urine/Stool Mix 0 Emesis 0 Oral Regurgitation 0 Other 0 Other: Voiding Method Indwelling Catheter Indwelling Catheter # Bowel Movements 0 - Physical Exam Head: Positive for: Atraumatic, Normocephalic Pupils: Positive for: PERRL Extroacular Muscles: Positive for: EOMI Conjunctiva: Positive for: Normal Mouth: Positive for: Dry Pharnyx: Negative for: ERYTHEMA, EXUDATE, TONSILS ENLARGED Neck: Positive for: Normal Range of Motion. Negative for: Meningeal Signs, Paraspinal Tenderness, JVD, Lymphadenopathy Respiratory/Chest: Positive for: Clear to Auscultation, Good Air Exchange. Negative for: Respiratory Distress, Accessory Muscle Use, Wheezes, Rales, Rhonchi, Tachypneic Cardiovascular: Positive for: Regular Rate and Rhythm, Normal S1, S2. Negative for: Murmurs, Irregular Rhythm, Tachycardic Abdomen: Positive for: Tenderness, Scars (mulitple abdominal scars), Other ( Decreased bowel sounds; epigastric tenderness). Negative for: Distention, Normal Bowel Sounds, Peritoneal Signs, Rebound, Guarding, McBurney's Point Tender Back: Positive for: Paraspinal Tenderness Upper Extremity: Positive for: Normal Inspection. 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 Negative for: Edema Neurological: Positive for: GCS=15, CN II-XII Intact, Speech Normal, Motor Func Grossly Intact Skin: Positive for: Warm, Dry, Normal Color. Negative for: Rashes Lymphatic: Negative for: Cervical Adenopathy Psychiatric: Positive for: Alert, Oriented x 3, Normal Insight, Normal Concentration - Medications Active Medications: Active Medications Generic Name Dose Route Start Last Admin Trade Name Freq PRN Reason Stop Dose Admin Acetaminophen 650 mg 01/28/17 07:46 01/28/17 07:53 Tylenol 325mg Tab PO 650 mg Q6H PRN Administration Pain, moderate (4-7) Aspirin 81 mg 01/28/17 10:00 01/28/17 09:20 Ecotrin PO 81 mg DAILY PATTI Administration Duloxetine HCl 60 mg 01/28/17 10:00 01/28/17 09:17 Cymbalta PO 60 mg DAILY PATTI Administration Potassium Chloride/Dextrose/Sod Cl 1,000 mls @ 200 mls/hr 01/28/17 04:25 11:43 Potassium Chl 30 Meq In D5-1/2ns IV 200 mls/hr .Q5H PATTI Administration Insulin Detemir 10 unit 01/28/17 05:23 01/28/17 09:21 Levemir SC Not Given Q12 PATTI Insulin Human Regular 0 units 01/28/17 07:30 01/28/17 11:46 Humulin R Low SC Not Given ACHS [facility] Protocol Lisinopril 5 mg 01/28/17 10:45 01/28/17 11:11 Zestril PO 5 mg DAILY PATTI Administration Metoclopramide HCl 5 mg 01/28/17 10:00 01/28/17 09:20 Reglan PO 5 mg BID PATTI Administration Pantoprazole Sodium 40 mg 01/28/17 11:00 01/28/17 11:12 Protonix Inj IVP 40 mg Q12 PATTI Administration Tramadol HCl 100 mg 01/28/17 11:17 01/28/17 11:44 Ultram PO 100 mg Q6H PRN Administration pain - Patient Studies Lab Studies: Lab Studies 01/28/17 01/28/17 01/28/17 Range/Units 10:58 09:30 06:57 WBC (4.5-11.0) 10^3/ul RBC (3.5-6.1) 10^6/uL Hgb (12.0-16.0) g/dL Hct (36.0-48.0) % MCV (80.0-105.0) fl MCH (25.0-35.0) pg MCHC (31.0-37.0) g/dl RDW (11.5-14.5) % Plt Count (120.0-450.0) 10^3/uL MPV (7.0-11.0) fl pCO2 34 L (35-45) mm/Hg pO2 128.0 H (30-55) mm/Hg HCO3 26.5 (21-28) mmol/L ABG pH 7.50 H (7.35-7.45) ABG Total CO2 27.5 (22-28) mmol.L ABG O2 Saturation 96.6 (95-98) % ABG Base Excess 3.6 H (-2.0-3.0) mmol/L ABG Potassium 3.7 (3.6-5.2) mmol/L VBG pH (7.32-7.43) VBG pCO2 (40-60) VBG HCO3 (21-28) mmol/l VBG Total CO2 (22-28) mmol.L VBG O2 Sat (Calc) (40-65) % VBG Base Excess (0.0-2.0) mmol/L VBG Potassium (3.6-5.2) mmol/L Sodium 138.0 139 (132-148) mmol/L Chloride 105.0 101 (98-107) mmol/L Glucose 91 (65-105) mg/dl Lactate 1.1 (0.7-2.1) mmol/L FiO2 28.0 % Potassium 4.0 (3.6-5.0) mmol/L Carbon Dioxide 29 (21-33) mmol/L Anion Gap 13 (10-20) BUN 25 H (7-21) mg/dL Creatinine 0.9 (0.5-1.4) mg/dL Est GFR ( Amer) > 60 Est GFR (Non-Af Amer) > 60 POC Glucose (mg/dL) 111 H (65-110) mg/dL Random Glucose 98 (70-110) mg/dL Hemoglobin A1c (4.2-6.5) % Calcium 8.7 (8.4-10.5) mg/dL Phosphorus 3.1 (2.5-4.5) mg/dL Magnesium 1.8 (1.7-2.2) mg/dL Total Bilirubin (0.2-1.3) mg/dL AST (15-39) U/L ALT (7-56) U/L Alkaline Phosphatase (38-133) U/L Total Creatine Kinase (35-230) U/L Total Protein (5.8-8.3) g/dL Albumin (3.0-4.8) g/dL Globulin gm/dL Albumin/Globulin Ratio (1.1-1.8) Arterial Blood Potassium 3.7 (3.6-5.2) mmol/L Venous Blood Potassium (3.6-5.2) mmol/L Urine Color (YELLOW) Urine Appearance (CLEAR) Urine pH (4.7-8.0) Ur Specific [place] (1.005-1.035) Urine Protein (<30 mg/dL) mg/dL Urine Glucose (UA) (NEGATIVE) mg/dL Urine Ketones (NEGATIVE) mg/dL Urine Blood (NEGATIVE) Urine Nitrate (NEGATIVE) Urine Bilirubin (NEGATIVE) Urine Urobilinogen (<1 E.U./dL) E.U./dL Ur Leukocyte Esterase (NEGATIVE) Jennfier/uL Urine RBC (0-2) /hpf Urine WBC (0-6) /hpf Ur Epithelial Cells (0-5) /hpf Amorphous Sediment Urine Bacteria (NEG) Urine Osmolality (50-645) mosm/kg Ur Random Creatinine mg/dL Ur Random Sodium meq/L Ur Random Potassium meq/L Urine HCG, Qual (NEGATIVE) Urine Opiates Screen (NEGATIVE) Urine Methadone Screen (NEGATIVE) Ur Barbiturates Screen (NEGATIVE) Ur Phencyclidine Scrn (NEGATIVE) Ur Amphetamines Screen (NEGATIVE) U Benzodiazepines Scrn (NEGATIVE) U Oth Cocaine Metabols (NEGATIVE) U Cannabinoids Screen (NEGATIVE) 01/28/17 01/28/17 01/28/17 Range/Units 06:05 06:05 06:05 WBC 13.2 H D (4.5-11.0) 10^3/ul RBC 4.22 (3.5-6.1) 10^6/uL Hgb 11.6 L (12.0-16.0) g/dL Hct 33.8 L (36.0-48.0) % MCV 80.1 (80.0-105.0) fl MCH 27.5 (25.0-35.0) pg MCHC 34.3 (31.0-37.0) g/dl RDW 13.7 (11.5-14.5) % Plt Count 249 (120.0-450.0) 10^3/uL MPV 10.1 (7.0-11.0) fl pCO2 (35-45) mm/Hg pO2 94 H (30-55) mm/Hg HCO3 (21-28) mmol/L ABG pH (7.35-7.45) ABG Total CO2 (22-28) mmol.L ABG O2 Saturation (95-98) % ABG Base Excess (-2.0-3.0) mmol/L ABG Potassium (3.6-5.2) mmol/L VBG pH 7.30 L (7.32-7.43) VBG pCO2 66.0 H* (40-60) VBG HCO3 32.5 H (21-28) mmol/l VBG Total CO2 34.5 H (22-28) mmol.L VBG O2 Sat (Calc) 95.6 H (40-65) % VBG Base Excess 4.3 H (0.0-2.0) mmol/L VBG Potassium 3.8 (3.6-5.2) mmol/L Sodium 138.0 (132-148) mmol/L Chloride 101.0 (98-107) mmol/L Glucose 106 H (65-105) mg/dl Lactate 2.2 H (0.7-2.1) mmol/L FiO2 21.0 % Potassium (3.6-5.0) mmol/L Carbon Dioxide (21-33) mmol/L Anion Gap (10-20) BUN (7-21) mg/dL Creatinine (0.5-1.4) mg/dL Est GFR ( Amer) Est GFR (Non-Af Amer) POC Glucose (mg/dL) (65-110) mg/dL Random Glucose (70-110) mg/dL Hemoglobin A1c 10.7 H (4.2-6.5) % Calcium (8.4-10.5) mg/dL Phosphorus (2.5-4.5) mg/dL Magnesium (1.7-2.2) mg/dL Total Bilirubin (0.2-1.3) mg/dL AST (15-39) U/L ALT (7-56) U/L Alkaline Phosphatase (38-133) U/L Total Creatine Kinase (35-230) U/L Total Protein (5.8-8.3) g/dL Albumin (3.0-4.8) g/dL Globulin gm/dL Albumin/Globulin Ratio (1.1-1.8) Arterial Blood Potassium (3.6-5.2) mmol/L Venous Blood Potassium 3.8 (3.6-5.2) mmol/L Urine Color (YELLOW) Urine Appearance (CLEAR) Urine pH (4.7-8.0) Ur Specific [place] (1.005-1.035) Urine Protein (<30 mg/dL) mg/dL Urine Glucose (UA) (NEGATIVE) mg/dL Urine Ketones (NEGATIVE) mg/dL Urine Blood (NEGATIVE) Urine Nitrate (NEGATIVE) Urine Bilirubin (NEGATIVE) Urine Urobilinogen (<1 E.U./dL) E.U./dL Ur Leukocyte Esterase (NEGATIVE) Jennifer/uL Urine RBC (0-2) /hpf Urine WBC (0-6) /hpf Ur Epithelial Cells (0-5) /hpf Amorphous Sediment Urine Bacteria (NEG) Urine Osmolality (50-645) mosm/kg Ur Random Creatinine mg/dL Ur Random Sodium meq/L Ur Random Potassium meq/L Urine HCG, Qual (NEGATIVE) Urine Opiates Screen (NEGATIVE) Urine Methadone Screen (NEGATIVE) Ur Barbiturates Screen (NEGATIVE) Ur Phencyclidine Scrn (NEGATIVE) Ur Amphetamines Screen (NEGATIVE) U Benzodiazepines Scrn (NEGATIVE) U Oth Cocaine Metabols (NEGATIVE) U Cannabinoids Screen (NEGATIVE) 01/28/17 01/28/17 01/28/17 Range/Units 06:05 06:01 05:08 WBC (4.5-11.0) 10^3/ul RBC (3.5-6.1) 10^6/uL Hgb (12.0-16.0) g/dL Hct (36.0-48.0) % MCV (80.0-105.0) fl MCH (25.0-35.0) pg MCHC (31.0-37.0) g/dl RDW (11.5-14.5) % Plt Count (120.0-450.0) 10^3/uL MPV (7.0-11.0) fl pCO2 (35-45) mm/Hg pO2 (30-55) mm/Hg HCO3 (21-28) mmol/L ABG pH (7.35-7.45) ABG Total CO2 (22-28) mmol.L ABG O2 Saturation (95-98) % ABG Base Excess (-2.0-3.0) mmol/L ABG Potassium (3.6-5.2) mmol/L VBG pH (7.32-7.43) VBG pCO2 (40-60) VBG HCO3 (21-28) mmol/l VBG Total CO2 (22-28) mmol.L VBG O2 Sat (Calc) (40-65) % VBG Base Excess (0.0-2.0) mmol/L VBG Potassium (3.6-5.2) mmol/L Sodium 139 (132-148) mmol/L Chloride 100 (98-107) mmol/L Glucose (65-105) mg/dl Lactate (0.7-2.1) mmol/L FiO2 % Potassium 3.8 (3.6-5.0) mmol/L Carbon Dioxide 29 (21-33) mmol/L Anion Gap 14 (10-20) BUN 31 H (7-21) mg/dL Creatinine 1.0 (0.5-1.4) mg/dL Est GFR ( Amer) > 60 Est GFR (Non-Af Amer) 57 POC Glucose (mg/dL) 127 H 114 H (65-110) mg/dL Random Glucose 103 (70-110) mg/dL Hemoglobin A1c (4.2-6.5) % Calcium 8.4 (8.4-10.5) mg/dL Phosphorus 3.6 (2.5-4.5) mg/dL Magnesium 1.8 (1.7-2.2) mg/dL Total Bilirubin 0.3 (0.2-1.3) mg/dL AST 26 (15-39) U/L ALT 24 (7-56) U/L Alkaline Phosphatase 84 (38-133) U/L Total Creatine Kinase 43 (35-230) U/L Total Protein 5.7 L (5.8-8.3) g/dL Albumin 3.2 (3.0-4.8) g/dL Globulin 2.5 gm/dL Albumin/Globulin Ratio 1.3 (1.1-1.8) Arterial Blood Potassium (3.6-5.2) mmol/L Venous Blood Potassium (3.6-5.2) mmol/L Urine Color (YELLOW) Urine Appearance (CLEAR) Urine pH (4.7-8.0) Ur Specific [place] (1.005-1.035) Urine Protein (<30 mg/dL) mg/dL Urine Glucose (UA) (NEGATIVE) mg/dL Urine Ketones (NEGATIVE) mg/dL Urine Blood (NEGATIVE) Urine Nitrate (NEGATIVE) Urine Bilirubin (NEGATIVE) Urine Urobilinogen (<1 E.U./dL) E.U./dL Ur Leukocyte Esterase (NEGATIVE) Jennifer/uL Urine RBC (0-2) /hpf Urine WBC (0-6) /hpf Ur Epithelial Cells (0-5) /hpf Amorphous Sediment Urine Bacteria (NEG) Urine Osmolality (50-645) mosm/kg Ur Random Creatinine mg/dL Ur Random Sodium meq/L Ur Random Potassium meq/L Urine HCG, Qual (NEGATIVE) Urine Opiates Screen (NEGATIVE) Urine Methadone Screen (NEGATIVE) Ur Barbiturates Screen (NEGATIVE) Ur Phencyclidine Scrn (NEGATIVE) Ur Amphetamines Screen (NEGATIVE) U Benzodiazepines Scrn (NEGATIVE) U Oth Cocaine Metabols (NEGATIVE) U Cannabinoids Screen (NEGATIVE) 01/28/17 01/28/17 01/28/17 Range/Units 04:02 03:05 01:55 WBC (4.5-11.0) 10^3/ul RBC (3.5-6.1) 10^6/uL Hgb (12.0-16.0) g/dL Hct (36.0-48.0) % MCV (80.0-105.0) fl MCH (25.0-35.0) pg MCHC (31.0-37.0) g/dl RDW (11.5-14.5) % Plt Count (120.0-450.0) 10^3/uL MPV (7.0-11.0) fl pCO2 (35-45) mm/Hg pO2 (30-55) mm/Hg HCO3 (21-28) mmol/L ABG pH (7.35-7.45) ABG Total CO2 (22-28) mmol.L ABG O2 Saturation (95-98) % ABG Base Excess (-2.0-3.0) mmol/L ABG Potassium (3.6-5.2) mmol/L VBG pH (7.32-7.43) VBG pCO2 (40-60) VBG HCO3 (21-28) mmol/l VBG Total CO2 (22-28) mmol.L VBG O2 Sat (Calc) (40-65) % VBG Base Excess (0.0-2.0) mmol/L VBG Potassium (3.6-5.2) mmol/L Sodium (132-148) mmol/L Chloride (98-107) mmol/L Glucose (65-105) mg/dl Lactate (0.7-2.1) mmol/L FiO2 % Potassium (3.6-5.0) mmol/L Carbon Dioxide (21-33) mmol/L Anion Gap (10-20) BUN (7-21) mg/dL Creatinine (0.5-1.4) mg/dL Est GFR ( Amer) Est GFR (Non-Af Amer) POC Glucose (mg/dL) 107 94 137 H (65-110) mg/dL Random Glucose (70-110) mg/dL Hemoglobin A1c (4.2-6.5) % Calcium (8.4-10.5) mg/dL Phosphorus (2.5-4.5) mg/dL Magnesium (1.7-2.2) mg/dL Total Bilirubin (0.2-1.3) mg/dL AST (15-39) U/L ALT (7-56) U/L Alkaline Phosphatase (38-133) U/L Total Creatine Kinase (35-230) U/L Total Protein (5.8-8.3) g/dL Albumin (3.0-4.8) g/dL Globulin gm/dL Albumin/Globulin Ratio (1.1-1.8) Arterial Blood Potassium (3.6-5.2) mmol/L Venous Blood Potassium (3.6-5.2) mmol/L Urine Color (YELLOW) Urine Appearance (CLEAR) Urine pH (4.7-8.0) Ur Specific [place] (1.005-1.035) Urine Protein (<30 mg/dL) mg/dL Urine Glucose (UA) (NEGATIVE) mg/dL Urine Ketones (NEGATIVE) mg/dL Urine Blood (NEGATIVE) Urine Nitrate (NEGATIVE) Urine Bilirubin (NEGATIVE) Urine Urobilinogen (<1 E.U./dL) E.U./dL Ur Leukocyte Esterase (NEGATIVE) Jennifer/uL Urine RBC (0-2) /hpf Urine WBC (0-6) /hpf Ur Epithelial Cells (0-5) /hpf Amorphous Sediment Urine Bacteria (NEG) Urine Osmolality (50-645) mosm/kg Ur Random Creatinine mg/dL Ur Random Sodium meq/L Ur Random Potassium meq/L Urine HCG, Qual (NEGATIVE) Urine Opiates Screen (NEGATIVE) Urine Methadone Screen (NEGATIVE) Ur Barbiturates Screen (NEGATIVE) Ur Phencyclidine Scrn (NEGATIVE) Ur Amphetamines Screen (NEGATIVE) U Benzodiazepines Scrn (NEGATIVE) U Oth Cocaine Metabols (NEGATIVE) U Cannabinoids Screen (NEGATIVE) 01/28/17 01/28/17 01/28/17 Range/Units 01:16 00:45 00:45 WBC (4.5-11.0) 10^3/ul RBC (3.5-6.1) 10^6/uL Hgb (12.0-16.0) g/dL Hct (36.0-48.0) % MCV (80.0-105.0) fl MCH (25.0-35.0) pg MCHC (31.0-37.0) g/dl RDW (11.5-14.5) % Plt Count (120.0-450.0) 10^3/uL MPV (7.0-11.0) fl pCO2 (35-45) mm/Hg pO2 29 L (30-55) mm/Hg HCO3 (21-28) mmol/L ABG pH (7.35-7.45) ABG Total CO2 (22-28) mmol.L ABG O2 Saturation (95-98) % ABG Base Excess (-2.0-3.0) mmol/L ABG Potassium (3.6-5.2) mmol/L VBG pH 7.35 (7.32-7.43) VBG pCO2 61.0 H (40-60) VBG HCO3 33.7 H (21-28) mmol/l VBG Total CO2 35.6 H (22-28) mmol.L VBG O2 Sat (Calc) 59.9 (40-65) % VBG Base Excess 6.1 H (0.0-2.0) mmol/L VBG Potassium 3.5 L (3.6-5.2) mmol/L Sodium 138.0 137 (132-148) mmol/L Chloride 98.0 94 L (98-107) mmol/L Glucose 199 H (65-105) mg/dl Lactate 3.1 H (0.7-2.1) mmol/L FiO2 21.0 % Potassium 3.6 (3.6-5.0) mmol/L Carbon Dioxide 32 (21-33) mmol/L Anion Gap 15 (10-20) BUN 30 H (7-21) mg/dL Creatinine 1.0 (0.5-1.4) mg/dL Est GFR ( Amer) > 60 Est GFR (Non-Af Amer) 57 POC Glucose (mg/dL) 171 H (65-110) mg/dL Random Glucose 196 H (70-110) mg/dL Hemoglobin A1c (4.2-6.5) % Calcium 8.6 (8.4-10.5) mg/dL Phosphorus 3.7 (2.5-4.5) mg/dL Magnesium 1.5 L (1.7-2.2) mg/dL Total Bilirubin (0.2-1.3) mg/dL AST (15-39) U/L ALT (7-56) U/L Alkaline Phosphatase (38-133) U/L Total Creatine Kinase (35-230) U/L Total Protein (5.8-8.3) g/dL Albumin (3.0-4.8) g/dL Globulin gm/dL Albumin/Globulin Ratio (1.1-1.8) Arterial Blood Potassium (3.6-5.2) mmol/L Venous Blood Potassium 3.5 L (3.6-5.2) mmol/L Urine Color (YELLOW) Urine Appearance (CLEAR) Urine pH (4.7-8.0) Ur Specific [place] (1.005-1.035) Urine Protein (<30 mg/dL) mg/dL Urine Glucose (UA) (NEGATIVE) mg/dL Urine Ketones (NEGATIVE) mg/dL Urine Blood (NEGATIVE) Urine Nitrate (NEGATIVE) Urine Bilirubin (NEGATIVE) Urine Urobilinogen (<1 E.U./dL) E.U./dL Ur Leukocyte Esterase (NEGATIVE) Jennifer/uL Urine RBC (0-2) /hpf Urine WBC (0-6) /hpf Ur Epithelial Cells (0-5) /hpf Amorphous Sediment Urine Bacteria (NEG) Urine Osmolality (50-645) mosm/kg Ur Random Creatinine mg/dL Ur Random Sodium meq/L Ur Random Potassium meq/L Urine HCG, Qual (NEGATIVE) Urine Opiates Screen (NEGATIVE) Urine Methadone Screen (NEGATIVE) Ur Barbiturates Screen (NEGATIVE) Ur Phencyclidine Scrn (NEGATIVE) Ur Amphetamines Screen (NEGATIVE) U Benzodiazepines Scrn (NEGATIVE) U Oth Cocaine Metabols (NEGATIVE) U Cannabinoids Screen (NEGATIVE) 01/28/17 01/27/17 01/27/17 Range/Units 00:02 22:59 22:24 WBC (4.5-11.0) 10^3/ul RBC (3.5-6.1) 10^6/uL Hgb (12.0-16.0) g/dL Hct (36.0-48.0) % MCV (80.0-105.0) fl MCH (25.0-35.0) pg MCHC (31.0-37.0) g/dl RDW (11.5-14.5) % Plt Count (120.0-450.0) 10^3/uL MPV (7.0-11.0) fl pCO2 (35-45) mm/Hg pO2 47 (30-55) mm/Hg HCO3 (21-28) mmol/L ABG pH (7.35-7.45) ABG Total CO2 (22-28) mmol.L ABG O2 Saturation (95-98) % ABG Base Excess (-2.0-3.0) mmol/L ABG Potassium (3.6-5.2) mmol/L VBG pH 7.38 (7.32-7.43) VBG pCO2 54.0 (40-60) VBG HCO3 31.9 H (21-28) mmol/l VBG Total CO2 33.6 H (22-28) mmol.L VBG O2 Sat (Calc) 84.4 H (40-65) % VBG Base Excess 5.3 H (0.0-2.0) mmol/L VBG Potassium 3.5 L (3.6-5.2) mmol/L Sodium 138.0 (132-148) mmol/L Chloride 98.0 (98-107) mmol/L Glucose 248 H (65-105) mg/dl Lactate 3.9 H (0.7-2.1) mmol/L FiO2 21.0 % Potassium (3.6-5.0) mmol/L Carbon Dioxide (21-33) mmol/L Anion Gap (10-20) BUN (7-21) mg/dL Creatinine (0.5-1.4) mg/dL Est GFR ( Amer) Est GFR (Non-Af Amer) POC Glucose (mg/dL) 241 H 243 H (65-110) mg/dL Random Glucose (70-110) mg/dL Hemoglobin A1c (4.2-6.5) % Calcium (8.4-10.5) mg/dL Phosphorus (2.5-4.5) mg/dL Magnesium (1.7-2.2) mg/dL Total Bilirubin (0.2-1.3) mg/dL AST (15-39) U/L ALT (7-56) U/L Alkaline Phosphatase (38-133) U/L Total Creatine Kinase (35-230) U/L Total Protein (5.8-8.3) g/dL Albumin (3.0-4.8) g/dL Globulin gm/dL Albumin/Globulin Ratio (1.1-1.8) Arterial Blood Potassium (3.6-5.2) mmol/L Venous Blood Potassium 3.5 L (3.6-5.2) mmol/L Urine Color (YELLOW) Urine Appearance (CLEAR) Urine pH (4.7-8.0) Ur Specific [place] (1.005-1.035) Urine Protein (<30 mg/dL) mg/dL Urine Glucose (UA) (NEGATIVE) mg/dL Urine Ketones (NEGATIVE) mg/dL Urine Blood (NEGATIVE) Urine Nitrate (NEGATIVE) Urine Bilirubin (NEGATIVE) Urine Urobilinogen (<1 E.U./dL) E.U./dL Ur Leukocyte Esterase (NEGATIVE) Jennifer/uL Urine RBC (0-2) /hpf Urine WBC (0-6) /hpf Ur Epithelial Cells (0-5) /hpf Amorphous Sediment Urine Bacteria (NEG) Urine Osmolality (50-645) mosm/kg Ur Random Creatinine mg/dL Ur Random Sodium meq/L Ur Random Potassium meq/L Urine HCG, Qual (NEGATIVE) Urine Opiates Screen (NEGATIVE) Urine Methadone Screen (NEGATIVE) Ur Barbiturates Screen (NEGATIVE) Ur Phencyclidine Scrn (NEGATIVE) Ur Amphetamines Screen (NEGATIVE) U Benzodiazepines Scrn (NEGATIVE) U Oth Cocaine Metabols (NEGATIVE) U Cannabinoids Screen (NEGATIVE) 01/27/17 01/27/17 01/27/17 Range/Units 21:22 20:40 20:40 WBC (4.5-11.0) 10^3/ul RBC (3.5-6.1) 10^6/uL Hgb (12.0-16.0) g/dL Hct (36.0-48.0) % MCV (80.0-105.0) fl MCH (25.0-35.0) pg MCHC (31.0-37.0) g/dl RDW (11.5-14.5) % Plt Count (120.0-450.0) 10^3/uL MPV (7.0-11.0) fl pCO2 (35-45) mm/Hg pO2 (30-55) mm/Hg HCO3 (21-28) mmol/L ABG pH (7.35-7.45) ABG Total CO2 (22-28) mmol.L ABG O2 Saturation (95-98) % ABG Base Excess (-2.0-3.0) mmol/L ABG Potassium (3.6-5.2) mmol/L VBG pH (7.32-7.43) VBG pCO2 (40-60) VBG HCO3 (21-28) mmol/l VBG Total CO2 (22-28) mmol.L VBG O2 Sat (Calc) (40-65) % VBG Base Excess (0.0-2.0) mmol/L VBG Potassium (3.6-5.2) mmol/L Sodium (132-148) mmol/L Chloride (98-107) mmol/L Glucose (65-105) mg/dl Lactate (0.7-2.1) mmol/L FiO2 % Potassium (3.6-5.0) mmol/L Carbon Dioxide (21-33) mmol/L Anion Gap (10-20) BUN (7-21) mg/dL Creatinine (0.5-1.4) mg/dL Est GFR ( Amer) Est GFR (Non-Af Amer) POC Glucose (mg/dL) 295 H (65-110) mg/dL Random Glucose (70-110) mg/dL Hemoglobin A1c (4.2-6.5) % Calcium (8.4-10.5) mg/dL Phosphorus (2.5-4.5) mg/dL Magnesium (1.7-2.2) mg/dL Total Bilirubin (0.2-1.3) mg/dL AST (15-39) U/L ALT (7-56) U/L Alkaline Phosphatase (38-133) U/L Total Creatine Kinase (35-230) U/L Total Protein (5.8-8.3) g/dL Albumin (3.0-4.8) g/dL Globulin gm/dL Albumin/Globulin Ratio (1.1-1.8) Arterial Blood Potassium (3.6-5.2) mmol/L Venous Blood Potassium (3.6-5.2) mmol/L Urine Color (YELLOW) Urine Appearance (CLEAR) Urine pH (4.7-8.0) Ur Specific [place] (1.005-1.035) Urine Protein (<30 mg/dL) mg/dL Urine Glucose (UA) (NEGATIVE) mg/dL Urine Ketones (NEGATIVE) mg/dL Urine Blood (NEGATIVE) Urine Nitrate (NEGATIVE) Urine Bilirubin (NEGATIVE) Urine Urobilinogen (<1 E.U./dL) E.U./dL Ur Leukocyte Esterase (NEGATIVE) Jennifer/uL Urine RBC (0-2) /hpf Urine WBC (0-6) /hpf Ur Epithelial Cells (0-5) /hpf Amorphous Sediment Urine Bacteria (NEG) Urine Osmolality 597 (50-645) mosm/kg Ur Random Creatinine 25 mg/dL Ur Random Sodium 56 meq/L Ur Random Potassium 27.3 meq/L Urine HCG, Qual (NEGATIVE) Urine Opiates Screen Negative (NEGATIVE) Urine Methadone Screen Negative (NEGATIVE) Ur Barbiturates Screen Negative (NEGATIVE) Ur Phencyclidine Scrn Negative (NEGATIVE) Ur Amphetamines Screen Negative (NEGATIVE) U Benzodiazepines Scrn Positive H (NEGATIVE) U Oth Cocaine Metabols Negative (NEGATIVE) U Cannabinoids Screen Negative (NEGATIVE) 01/27/17 Range/Units 20:40 WBC (4.5-11.0) 10^3/ul RBC (3.5-6.1) 10^6/uL Hgb (12.0-16.0) g/dL Hct (36.0-48.0) % MCV (80.0-105.0) fl MCH (25.0-35.0) pg MCHC (31.0-37.0) g/dl RDW (11.5-14.5) % Plt Count (120.0-450.0) 10^3/uL MPV (7.0-11.0) fl pCO2 (35-45) mm/Hg pO2 (30-55) mm/Hg HCO3 (21-28) mmol/L ABG pH (7.35-7.45) ABG Total CO2 (22-28) mmol.L ABG O2 Saturation (95-98) % ABG Base Excess (-2.0-3.0) mmol/L ABG Potassium (3.6-5.2) mmol/L VBG pH (7.32-7.43) VBG pCO2 (40-60) VBG HCO3 (21-28) mmol/l VBG Total CO2 (22-28) mmol.L VBG O2 Sat (Calc) (40-65) % VBG Base Excess (0.0-2.0) mmol/L VBG Potassium (3.6-5.2) mmol/L Sodium (132-148) mmol/L Chloride (98-107) mmol/L Glucose (65-105) mg/dl Lactate (0.7-2.1) mmol/L FiO2 % Potassium (3.6-5.0) mmol/L Carbon Dioxide (21-33) mmol/L Anion Gap (10-20) BUN (7-21) mg/dL Creatinine (0.5-1.4) mg/dL Est GFR ( Amer) Est GFR (Non-Af Amer) POC Glucose (mg/dL) (65-110) mg/dL Random Glucose (70-110) mg/dL Hemoglobin A1c (4.2-6.5) % Calcium (8.4-10.5) mg/dL Phosphorus (2.5-4.5) mg/dL Magnesium (1.7-2.2) mg/dL Total Bilirubin (0.2-1.3) mg/dL AST (15-39) U/L ALT (7-56) U/L Alkaline Phosphatase (38-133) U/L Total Creatine Kinase (35-230) U/L Total Protein (5.8-8.3) g/dL Albumin (3.0-4.8) g/dL Globulin gm/dL Albumin/Globulin Ratio (1.1-1.8) Arterial Blood Potassium (3.6-5.2) mmol/L Venous Blood Potassium (3.6-5.2) mmol/L Urine Color Yellow (YELLOW) Urine Appearance Clear (CLEAR) Urine pH 6.5 (4.7-8.0) Ur Specific [place] 1.020 (1.005-1.035) Urine Protein >=300 H (<30 mg/dL) mg/dL Urine Glucose (UA) >=1000 (NEGATIVE) mg/dL Urine Ketones 40 H (NEGATIVE) mg/dL Urine Blood Moderate H (NEGATIVE) Urine Nitrate Negative (NEGATIVE) Urine Bilirubin Negative (NEGATIVE) Urine Urobilinogen 0.2 (<1 E.U./dL) E.U./dL Ur Leukocyte Esterase Negative (NEGATIVE) Jennifer/uL Urine RBC 15 - 20 (0-2) /hpf Urine WBC 2 - 5 (0-6) /hpf Ur Epithelial Cells 6 - 8 (0-5) /hpf Amorphous Sediment Trace Urine Bacteria Trace (NEG) Urine Osmolality (50-645) mosm/kg Ur Random Creatinine mg/dL Ur Random Sodium meq/L Ur Random Potassium meq/L Urine HCG, Qual Negative (NEGATIVE) Urine Opiates Screen (NEGATIVE) Urine Methadone Screen (NEGATIVE) Ur Barbiturates Screen (NEGATIVE) Ur Phencyclidine Scrn (NEGATIVE) Ur Amphetamines Screen (NEGATIVE) U Benzodiazepines Scrn (NEGATIVE) U Oth Cocaine Metabols (NEGATIVE) U Cannabinoids Screen (NEGATIVE) Laboratory Results - last 24 hr 01/27/17 01/27/17 01/27/17 20:40 20:40 20:40 WBC RBC Hgb Hct MCV MCH MCHC RDW Plt Count MPV pCO2 pO2 HCO3 ABG pH ABG Total CO2 ABG O2 Saturation ABG Base Excess ABG Potassium VBG pH VBG pCO2 VBG HCO3 VBG Total CO2 VBG O2 Sat (Calc) VBG Base Excess VBG Potassium Sodium Chloride Glucose Lactate FiO2 Potassium Carbon Dioxide Anion Gap BUN Creatinine Est GFR ( Amer) Est GFR (Non-Af Amer) POC Glucose (mg/dL) Random Glucose Hemoglobin A1c Calcium Phosphorus Magnesium Total Bilirubin AST ALT Alkaline Phosphatase Total Creatine Kinase Total Protein Albumin Globulin Albumin/Globulin Ratio Arterial Blood Potassium Venous Blood Potassium Urine Color Yellow Urine Appearance Clear Urine pH 6.5 Ur Specific [place] 1.020 Urine Protein >=300 H Urine Glucose (UA) >=1000 Urine Ketones 40 H Urine Blood Moderate H Urine Nitrate Negative Urine Bilirubin Negative Urine Urobilinogen 0.2 Ur Leukocyte Esterase Negative Urine RBC 15 - 20 Urine WBC 2 - 5 Ur Epithelial Cells 6 - 8 Amorphous Sediment Trace Urine Bacteria Trace Urine Osmolality 597 Ur Random Creatinine 25 Ur Random Sodium 56 Ur Random Potassium 27.3 Urine HCG, Qual Negative Urine Opiates Screen Negative Urine Methadone Screen Negative Ur Barbiturates Screen Negative Ur Phencyclidine Scrn Negative Ur Amphetamines Screen Negative U Benzodiazepines Scrn Positive H U Oth Cocaine Metabols Negative U Cannabinoids Screen Negative 01/27/17 01/27/17 01/27/17 21:22 22:24 22:59 WBC RBC Hgb Hct MCV MCH MCHC RDW Plt Count MPV pCO2 pO2 47 HCO3 ABG pH ABG Total CO2 ABG O2 Saturation ABG Base Excess ABG Potassium VBG pH 7.38 VBG pCO2 54.0 VBG HCO3 31.9 H VBG Total CO2 33.6 H VBG O2 Sat (Calc) 84.4 H VBG Base Excess 5.3 H VBG Potassium 3.5 L Sodium 138.0 Chloride 98.0 Glucose 248 H Lactate 3.9 H FiO2 21.0 Potassium Carbon Dioxide Anion Gap BUN Creatinine Est GFR ( Amer) Est GFR (Non-Af Amer) POC Glucose (mg/dL) 295 H 243 H Random Glucose Hemoglobin A1c Calcium Phosphorus Magnesium Total Bilirubin AST ALT Alkaline Phosphatase Total Creatine Kinase Total Protein Albumin Globulin Albumin/Globulin Ratio Arterial Blood Potassium Venous Blood Potassium 3.5 L Urine Color Urine Appearance Urine pH Ur Specific [place] Urine Protein Urine Glucose (UA) Urine Ketones Urine Blood Urine Nitrate Urine Bilirubin Urine Urobilinogen Ur Leukocyte Esterase Urine RBC Urine WBC Ur Epithelial Cells Amorphous Sediment Urine Bacteria Urine Osmolality Ur Random Creatinine Ur Random Sodium Ur Random Potassium Urine HCG, Qual Urine Opiates Screen Urine Methadone Screen Ur Barbiturates Screen Ur Phencyclidine Scrn Ur Amphetamines Screen U Benzodiazepines Scrn U Oth Cocaine Metabols U Cannabinoids Screen 01/28/17 01/28/17 01/28/17 00:02 00:45 00:45 WBC RBC Hgb Hct MCV MCH MCHC RDW Plt Count MPV pCO2 pO2 29 L HCO3 ABG pH ABG Total CO2 ABG O2 Saturation ABG Base Excess ABG Potassium VBG pH 7.35 VBG pCO2 61.0 H VBG HCO3 33.7 H VBG Total CO2 35.6 H VBG O2 Sat (Calc) 59.9 VBG Base Excess 6.1 H VBG Potassium 3.5 L Sodium 137 138.0 Chloride 94 L 98.0 Glucose 199 H Lactate 3.1 H FiO2 21.0 Potassium 3.6 Carbon Dioxide 32 Anion Gap 15 BUN 30 H Creatinine 1.0 Est GFR ( Amer) > 60 Est GFR (Non-Af Amer) 57 POC Glucose (mg/dL) 241 H Random Glucose 196 H Hemoglobin A1c Calcium 8.6 Phosphorus 3.7 Magnesium 1.5 L Total Bilirubin AST ALT Alkaline Phosphatase Total Creatine Kinase Total Protein Albumin Globulin Albumin/Globulin Ratio Arterial Blood Potassium Venous Blood Potassium 3.5 L Urine Color Urine Appearance Urine pH Ur Specific [place] Urine Protein Urine Glucose (UA) Urine Ketones Urine Blood Urine Nitrate Urine Bilirubin Urine Urobilinogen Ur Leukocyte Esterase Urine RBC Urine WBC Ur Epithelial Cells Amorphous Sediment Urine Bacteria Urine Osmolality Ur Random Creatinine Ur Random Sodium Ur Random Potassium Urine HCG, Qual Urine Opiates Screen Urine Methadone Screen Ur Barbiturates Screen Ur Phencyclidine Scrn Ur Amphetamines Screen U Benzodiazepines Scrn U Oth Cocaine Metabols U Cannabinoids Screen 01/28/17 01/28/17 01/28/17 01:16 01:55 03:05 WBC RBC Hgb Hct MCV MCH MCHC RDW Plt Count MPV pCO2 pO2 HCO3 ABG pH ABG Total CO2 ABG O2 Saturation ABG Base Excess ABG Potassium VBG pH VBG pCO2 VBG HCO3 VBG Total CO2 VBG O2 Sat (Calc) VBG Base Excess VBG Potassium Sodium Chloride Glucose Lactate FiO2 Potassium Carbon Dioxide Anion Gap BUN Creatinine Est GFR ( Amer) Est GFR (Non-Af Amer) POC Glucose (mg/dL) 171 H 137 H 94 Random Glucose Hemoglobin A1c Calcium Phosphorus Magnesium Total Bilirubin AST ALT Alkaline Phosphatase Total Creatine Kinase Total Protein Albumin Globulin Albumin/Globulin Ratio Arterial Blood Potassium Venous Blood Potassium Urine Color Urine Appearance Urine pH Ur Specific [place] Urine Protein Urine Glucose (UA) Urine Ketones Urine Blood Urine Nitrate Urine Bilirubin Urine Urobilinogen Ur Leukocyte Esterase Urine RBC Urine WBC Ur Epithelial Cells Amorphous Sediment Urine Bacteria Urine Osmolality Ur Random Creatinine Ur Random Sodium Ur Random Potassium Urine HCG, Qual Urine Opiates Screen Urine Methadone Screen Ur Barbiturates Screen Ur Phencyclidine Scrn Ur Amphetamines Screen U Benzodiazepines Scrn U Oth Cocaine Metabols U Cannabinoids Screen 01/28/17 01/28/17 01/28/17 04:02 05:08 06:01 WBC RBC Hgb Hct MCV MCH MCHC RDW Plt Count MPV pCO2 pO2 HCO3 ABG pH ABG Total CO2 ABG O2 Saturation ABG Base Excess ABG Potassium VBG pH VBG pCO2 VBG HCO3 VBG Total CO2 VBG O2 Sat (Calc) VBG Base Excess VBG Potassium Sodium Chloride Glucose Lactate FiO2 Potassium Carbon Dioxide Anion Gap BUN Creatinine Est GFR ( Amer) Est GFR (Non-Af Amer) POC Glucose (mg/dL) 107 114 H 127 H Random Glucose Hemoglobin A1c Calcium Phosphorus Magnesium Total Bilirubin AST ALT Alkaline Phosphatase Total Creatine Kinase Total Protein Albumin Globulin Albumin/Globulin Ratio Arterial Blood Potassium Venous Blood Potassium Urine Color Urine Appearance Urine pH Ur Specific [place] Urine Protein Urine Glucose (UA) Urine Ketones Urine Blood Urine Nitrate Urine Bilirubin Urine Urobilinogen Ur Leukocyte Esterase Urine RBC Urine WBC Ur Epithelial Cells Amorphous Sediment Urine Bacteria Urine Osmolality Ur Random Creatinine Ur Random Sodium Ur Random Potassium Urine HCG, Qual Urine Opiates Screen Urine Methadone Screen Ur Barbiturates Screen Ur Phencyclidine Scrn Ur Amphetamines Screen U Benzodiazepines Scrn U Oth Cocaine Metabols U Cannabinoids Screen 01/28/17 01/28/17 01/28/17 06:05 06:05 06:05 WBC 13.2 H D RBC 4.22 Hgb 11.6 L Hct 33.8 L MCV 80.1 MCH 27.5 MCHC 34.3 RDW 13.7 Plt Count 249 MPV 10.1 pCO2 pO2 HCO3 ABG pH ABG Total CO2 ABG O2 Saturation ABG Base Excess ABG Potassium VBG pH VBG pCO2 VBG HCO3 VBG Total CO2 VBG O2 Sat (Calc) VBG Base Excess VBG Potassium Sodium 139 Chloride 100 Glucose Lactate FiO2 Potassium 3.8 Carbon Dioxide 29 Anion Gap 14 BUN 31 H Creatinine 1.0 Est GFR ( Amer) > 60 Est GFR (Non-Af Amer) 57 POC Glucose (mg/dL) Random Glucose 103 Hemoglobin A1c 10.7 H Calcium 8.4 Phosphorus 3.6 Magnesium 1.8 Total Bilirubin 0.3 AST 26 ALT 24 Alkaline Phosphatase 84 Total Creatine Kinase 43 Total Protein 5.7 L Albumin 3.2 Globulin 2.5 Albumin/Globulin Ratio 1.3 Arterial Blood Potassium Venous Blood Potassium Urine Color Urine Appearance Urine pH Ur Specific [place] Urine Protein Urine Glucose (UA) Urine Ketones Urine Blood Urine Nitrate Urine Bilirubin Urine Urobilinogen Ur Leukocyte Esterase Urine RBC Urine WBC Ur Epithelial Cells Amorphous Sediment Urine Bacteria Urine Osmolality Ur Random Creatinine Ur Random Sodium Ur Random Potassium Urine HCG, Qual Urine Opiates Screen Urine Methadone Screen Ur Barbiturates Screen Ur Phencyclidine Scrn Ur Amphetamines Screen U Benzodiazepines Scrn U Oth Cocaine Metabols U Cannabinoids Screen 01/28/17 01/28/17 01/28/17 06:05 06:57 09:30 WBC RBC Hgb Hct MCV MCH MCHC RDW Plt Count MPV pCO2 pO2 94 H HCO3 ABG pH ABG Total CO2 ABG O2 Saturation ABG Base Excess ABG Potassium VBG pH 7.30 L VBG pCO2 66.0 H* VBG HCO3 32.5 H VBG Total CO2 34.5 H VBG O2 Sat (Calc) 95.6 H VBG Base Excess 4.3 H VBG Potassium 3.8 Sodium 138.0 139 Chloride 101.0 101 Glucose 106 H Lactate 2.2 H FiO2 21.0 Potassium 4.0 Carbon Dioxide 29 Anion Gap 13 BUN 25 H Creatinine 0.9 Est GFR ( Amer) > 60 Est GFR (Non-Af Amer) > 60 POC Glucose (mg/dL) 111 H Random Glucose 98 Hemoglobin A1c Calcium 8.7 Phosphorus 3.1 Magnesium 1.8 Total Bilirubin AST ALT Alkaline Phosphatase Total Creatine Kinase Total Protein Albumin Globulin Albumin/Globulin Ratio Arterial Blood Potassium Venous Blood Potassium 3.8 Urine Color Urine Appearance Urine pH Ur Specific [place] Urine Protein Urine Glucose (UA) Urine Ketones Urine Blood Urine Nitrate Urine Bilirubin Urine Urobilinogen Ur Leukocyte Esterase Urine RBC Urine WBC Ur Epithelial Cells Amorphous Sediment Urine Bacteria Urine Osmolality Ur Random Creatinine Ur Random Sodium Ur Random Potassium Urine HCG, Qual Urine Opiates Screen Urine Methadone Screen Ur Barbiturates Screen Ur Phencyclidine Scrn Ur Amphetamines Screen U Benzodiazepines Scrn U Oth Cocaine Metabols U Cannabinoids Screen 01/28/17 10:58 WBC RBC Hgb Hct MCV MCH MCHC RDW Plt Count MPV pCO2 34 L pO2 128.0 H HCO3 26.5 ABG pH 7.50 H ABG Total CO2 27.5 ABG O2 Saturation 96.6 ABG Base Excess 3.6 H ABG Potassium 3.7 VBG pH VBG pCO2 VBG HCO3 VBG Total CO2 VBG O2 Sat (Calc) VBG Base Excess VBG Potassium Sodium 138.0 Chloride 105.0 Glucose 91 Lactate 1.1 FiO2 28.0 Potassium Carbon Dioxide Anion Gap BUN Creatinine Est GFR ( Amer) Est GFR (Non-Af Amer) POC Glucose (mg/dL) Random Glucose Hemoglobin A1c Calcium Phosphorus Magnesium Total Bilirubin AST ALT Alkaline Phosphatase Total Creatine Kinase Total Protein Albumin Globulin Albumin/Globulin Ratio Arterial Blood Potassium 3.7 Venous Blood Potassium Urine Color Urine Appearance Urine pH Ur Specific [place] Urine Protein Urine Glucose (UA) Urine Ketones Urine Blood Urine Nitrate Urine Bilirubin Urine Urobilinogen Ur Leukocyte Esterase Urine RBC Urine WBC Ur Epithelial Cells Amorphous Sediment Urine Bacteria Urine Osmolality Ur Random Creatinine Ur Random Sodium Ur Random Potassium Urine HCG, Qual Urine Opiates Screen Urine Methadone Screen Ur Barbiturates Screen Ur Phencyclidine Scrn Ur Amphetamines Screen U Benzodiazepines Scrn U Oth Cocaine Metabols U Cannabinoids Screen EKG/Cardiology Studies: Cardiology / EKG Studies 01/27/17 19:50 EKG [ELECTROCARDIOGRAM] Stat Comment: Reason For Exam: AMS 01/28/17 09:44 ELECTROCARDIOGRAM Routine Reason For Exam: AMS Fingerstick Blood Sugar Results: 79 Review of Systems - Review of Systems Review of Systems: Please refer to HPI Critical Care Progress Note - Ventilator Checklist PUD Prophalyxis: Yes DVT Prophylaxis: Yes - Nutrition Nutrition: Nutrition Category Date Time Status NPO Diet [DIET] Diets 01/27/17 Breakfast Ordered Assessment/Plan - Assessment and Plan (Free Text) Assessment: 56 year old woman with a history of CVA (s/p t-PA in 2017) and poorly controlled IDDM (with associated gastroparesis, orthostatic hypotension, right mid-foot amputation and neuropathy), who was found with altered mental status and fecal incontinence in her bed, approximately 3 hrs prior to ED arrival. She was admitted to the ICU for a likely mixed acid-base disorder due to DKA and sepsis. Plan: Neuro: -Patient with history of TIA/CVA and subjective tremor -CT head on 01/28 showed no acute findings -Continue ASA -Neurochecks Q1H -Neurology consulted, all recommendations appreciated Cardiology: -EKG on 01/28 showed sinus rhythm with marked sinus arrhythmia, T-wave abnormality (consider inferior ischemia), and a prolonged QT interval of 467 -Troponin was negative at 0.01 -Start Lisinopril 5mg PO daily -Orthostatic vital signs pending -Cardiology consulted, all recommendations appreciated GI: -Continue Reglan 5mg PO BID and Ultram 100mg Q6H PRN for abdominal pain -CT abdomen and pelvis pending -NPO diet -GI consulted, all recommendations appreciated Endocrine: -AG metabolic acidosis resolved, with metabolic alkalosis (urine chloride pending) -Continue Regular SSI-Low and Levemir 10u Q12H -Fingerstick blood glucose measurements Q1H -Continue potassium supplementation with KCl 30meq in 1L of NS running at 200mls /hr -Endocrinology consulted, all recommendations appreciated ID: -Code sepsis called in ED -Leukocytosis improving to 13.2 from 18.2, afebrile since admission, currently normotensive and with no tachycardia -Chest X-Ray showed no active disease and UA negative for LE, nitrates or bacteria with 2-5 WBC -Vanc and Rocephin discontinued -Blood, Urine and MRSA cultures negative -ID consulted, all recommendations appreciated GI Prophylaxis: Protonix DVT Prophylaxis: SCD's Disposition: Patient to be transferred to telemetry. Patient seen and case discussed with attending, Dr. Esqueda. - Date & Time Date: 01/28/17 Time: 12:46 <Delfin Esqueda - Last Filed: 01/28/17 15:04> CCU Objective - Vital Signs / Intake & Output Vital Signs (Last 4 hours): Vital Signs Temp Pulse Resp BP Pulse Ox 01/28/17 12:20 86 7 L 99 01/28/17 12:10 85 19 100 01/28/17 12:00 98.3 F 85 20 167/91 H 100 01/28/17 11:50 87 20 100 01/28/17 11:40 92 H 19 100 01/28/17 11:30 88 41 H 100 01/28/17 11:20 90 14 100 01/28/17 11:10 88 12 100 01/28/17 11:00 88 21 171/104 H 100 Intake and Output (Last 8hrs): Intake & Output 01/27/17 01/28/17 01/28/17 22:59 06:59 14:59 Intake Total 2168 Output Total 350 700 Balance -350 1468 Weight 138 lb 3.2 oz 138 lb Intake: IV 1968 0.9NS IV Bolus 1000 Insulin 9 Right Antecubital 950 Oral 0 Tube Feeding 0 TPN/PPN 0 Blood Product 0 Lipid 0 Albumin 0 Other 200 Output: Urine 350 700 Urethral (Wan) 350 700 Stool 0 Urine/Stool Mix 0 Emesis 0 Oral Regurgitation 0 Other 0 Other: Voiding Method Indwelling Catheter Indwelling Catheter # Bowel Movements 0 - Medications Active Medications: Active Medications Generic Name Dose Route Start Last Admin Trade Name Freq PRN Reason Stop Dose Admin Acetaminophen 650 mg 01/28/17 07:46 01/28/17 07:53 Tylenol 325mg Tab PO 650 mg Q6H PRN Administration Pain, moderate (4-7) Aspirin 81 mg 01/28/17 10:00 01/28/17 09:20 Ecotrin PO 81 mg DAILY PATTI Administration Duloxetine HCl 60 mg 01/28/17 10:00 01/28/17 09:17 Cymbalta PO 60 mg DAILY PATTI Administration Potassium Chloride/Dextrose/Sod Cl 1,000 mls @ 200 mls/hr 01/28/17 04:25 11:43 Potassium Chl 30 Meq In D5-1/2ns IV 200 mls/hr .Q5H PATTI Administration Insulin Detemir 10 unit 01/28/17 05:23 01/28/17 09:21 Levemir SC Not Given Q12 PATTI Insulin Human Regular 0 units 01/28/17 07:30 01/28/17 11:46 Humulin R Low SC Not Given ACHS [facility] Protocol Lisinopril 5 mg 01/28/17 10:45 01/28/17 11:11 Zestril PO 5 mg DAILY PATTI Administration Metoclopramide HCl 5 mg 01/28/17 10:00 01/28/17 09:20 Reglan PO 5 mg BID PATTI Administration Pantoprazole Sodium 40 mg 01/28/17 11:00 01/28/17 11:12 Protonix Inj IVP 40 mg Q12 PATTI Administration Tramadol HCl 100 mg 01/28/17 11:17 01/28/17 11:44 Ultram PO 100 mg Q6H PRN Administration pain - Patient Studies Lab Studies: Lab Studies 01/28/17 01/28/17 01/28/17 Range/Units 14:05 10:58 09:30 WBC (4.5-11.0) 10^3/ul RBC (3.5-6.1) 10^6/uL Hgb (12.0-16.0) g/dL Hct (36.0-48.0) % MCV (80.0-105.0) fl MCH (25.0-35.0) pg MCHC (31.0-37.0) g/dl RDW (11.5-14.5) % Plt Count (120.0-450.0) 10^3/uL MPV (7.0-11.0) fl pCO2 34 L (35-45) mm/Hg pO2 128.0 H (30-55) mm/Hg HCO3 26.5 (21-28) mmol/L ABG pH 7.50 H (7.35-7.45) ABG Total CO2 27.5 (22-28) mmol.L ABG O2 Saturation 96.6 (95-98) % ABG Base Excess 3.6 H (-2.0-3.0) mmol/L ABG Potassium 3.7 (3.6-5.2) mmol/L VBG pH (7.32-7.43) VBG pCO2 (40-60) VBG HCO3 (21-28) mmol/l VBG Total CO2 (22-28) mmol.L VBG O2 Sat (Calc) (40-65) % VBG Base Excess (0.0-2.0) mmol/L VBG Potassium (3.6-5.2) mmol/L Sodium 138 138.0 139 (132-148) mmol/L Chloride 103 105.0 101 (98-107) mmol/L Glucose 91 (65-105) mg/dl Lactate 1.1 (0.7-2.1) mmol/L FiO2 28.0 % Potassium 3.9 4.0 (3.6-5.0) mmol/L Carbon Dioxide 27 29 (21-33) mmol/L Anion Gap 12 13 (10-20) BUN 18 25 H (7-21) mg/dL Creatinine 0.7 0.9 (0.5-1.4) mg/dL Est GFR ( Amer) > 60 > 60 Est GFR (Non-Af Amer) > 60 > 60 POC Glucose (mg/dL) (65-110) mg/dL Random Glucose 91 98 (70-110) mg/dL Hemoglobin A1c (4.2-6.5) % Calcium 8.7 8.7 (8.4-10.5) mg/dL Phosphorus 2.5 3.1 (2.5-4.5) mg/dL Magnesium 1.8 1.8 (1.7-2.2) mg/dL Total Bilirubin (0.2-1.3) mg/dL AST (15-39) U/L ALT (7-56) U/L Alkaline Phosphatase (38-133) U/L Total Creatine Kinase (35-230) U/L Total Protein (5.8-8.3) g/dL Albumin (3.0-4.8) g/dL Globulin gm/dL Albumin/Globulin Ratio (1.1-1.8) Arterial Blood Potassium 3.7 (3.6-5.2) mmol/L Venous Blood Potassium (3.6-5.2) mmol/L Urine Color (YELLOW) Urine Appearance (CLEAR) Urine pH (4.7-8.0) Ur Specific [place] (1.005-1.035) Urine Protein (<30 mg/dL) mg/dL Urine Glucose (UA) (NEGATIVE) mg/dL Urine Ketones (NEGATIVE) mg/dL Urine Blood (NEGATIVE) Urine Nitrate (NEGATIVE) Urine Bilirubin (NEGATIVE) Urine Urobilinogen (<1 E.U./dL) E.U./dL Ur Leukocyte Esterase (NEGATIVE) Jennifer/uL Urine RBC (0-2) /hpf Urine WBC (0-6) /hpf Ur Epithelial Cells (0-5) /hpf Amorphous Sediment Urine Bacteria (NEG) Urine Osmolality (50-645) mosm/kg Ur Random Creatinine mg/dL Ur Random Sodium meq/L Ur Random Potassium meq/L Urine HCG, Qual (NEGATIVE) Urine Opiates Screen (NEGATIVE) Urine Methadone Screen (NEGATIVE) Ur Barbiturates Screen (NEGATIVE) Ur Phencyclidine Scrn (NEGATIVE) Ur Amphetamines Screen (NEGATIVE) U Benzodiazepines Scrn (NEGATIVE) U Oth Cocaine Metabols (NEGATIVE) U Cannabinoids Screen (NEGATIVE) 01/28/17 01/28/17 01/28/17 Range/Units 06:57 06:05 06:05 WBC (4.5-11.0) 10^3/ul RBC (3.5-6.1) 10^6/uL Hgb (12.0-16.0) g/dL Hct (36.0-48.0) % MCV (80.0-105.0) fl MCH (25.0-35.0) pg MCHC (31.0-37.0) g/dl RDW (11.5-14.5) % Plt Count (120.0-450.0) 10^3/uL MPV (7.0-11.0) fl pCO2 (35-45) mm/Hg pO2 94 H (30-55) mm/Hg HCO3 (21-28) mmol/L ABG pH (7.35-7.45) ABG Total CO2 (22-28) mmol.L ABG O2 Saturation (95-98) % ABG Base Excess (-2.0-3.0) mmol/L ABG Potassium (3.6-5.2) mmol/L VBG pH 7.30 L (7.32-7.43) VBG pCO2 66.0 H* (40-60) VBG HCO3 32.5 H (21-28) mmol/l VBG Total CO2 34.5 H (22-28) mmol.L VBG O2 Sat (Calc) 95.6 H (40-65) % VBG Base Excess 4.3 H (0.0-2.0) mmol/L VBG Potassium 3.8 (3.6-5.2) mmol/L Sodium 138.0 (132-148) mmol/L Chloride 101.0 (98-107) mmol/L Glucose 106 H (65-105) mg/dl Lactate 2.2 H (0.7-2.1) mmol/L FiO2 21.0 % Potassium (3.6-5.0) mmol/L Carbon Dioxide (21-33) mmol/L Anion Gap (10-20) BUN (7-21) mg/dL Creatinine (0.5-1.4) mg/dL Est GFR ( Amer) Est GFR (Non-Af Amer) POC Glucose (mg/dL) 111 H (65-110) mg/dL Random Glucose (70-110) mg/dL Hemoglobin A1c 10.7 H (4.2-6.5) % Calcium (8.4-10.5) mg/dL Phosphorus (2.5-4.5) mg/dL Magnesium (1.7-2.2) mg/dL Total Bilirubin (0.2-1.3) mg/dL AST (15-39) U/L ALT (7-56) U/L Alkaline Phosphatase (38-133) U/L Total Creatine Kinase (35-230) U/L Total Protein (5.8-8.3) g/dL Albumin (3.0-4.8) g/dL Globulin gm/dL Albumin/Globulin Ratio (1.1-1.8) Arterial Blood Potassium (3.6-5.2) mmol/L Venous Blood Potassium 3.8 (3.6-5.2) mmol/L Urine Color (YELLOW) Urine Appearance (CLEAR) Urine pH (4.7-8.0) Ur Specific [place] (1.005-1.035) Urine Protein (<30 mg/dL) mg/dL Urine Glucose (UA) (NEGATIVE) mg/dL Urine Ketones (NEGATIVE) mg/dL Urine Blood (NEGATIVE) Urine Nitrate (NEGATIVE) Urine Bilirubin (NEGATIVE) Urine Urobilinogen (<1 E.U./dL) E.U./dL Ur Leukocyte Esterase (NEGATIVE) Jennifer/uL Urine RBC (0-2) /hpf Urine WBC (0-6) /hpf Ur Epithelial Cells (0-5) /hpf Amorphous Sediment Urine Bacteria (NEG) Urine Osmolality (50-645) mosm/kg Ur Random Creatinine mg/dL Ur Random Sodium meq/L Ur Random Potassium meq/L Urine HCG, Qual (NEGATIVE) Urine Opiates Screen (NEGATIVE) Urine Methadone Screen (NEGATIVE) Ur Barbiturates Screen (NEGATIVE) Ur Phencyclidine Scrn (NEGATIVE) Ur Amphetamines Screen (NEGATIVE) U Benzodiazepines Scrn (NEGATIVE) U Oth Cocaine Metabols (NEGATIVE) U Cannabinoids Screen (NEGATIVE) 01/28/17 01/28/17 01/28/17 Range/Units 06:05 06:05 06:01 WBC 13.2 H D (4.5-11.0) 10^3/ul RBC 4.22 (3.5-6.1) 10^6/uL Hgb 11.6 L (12.0-16.0) g/dL Hct 33.8 L (36.0-48.0) % MCV 80.1 (80.0-105.0) fl MCH 27.5 (25.0-35.0) pg MCHC 34.3 (31.0-37.0) g/dl RDW 13.7 (11.5-14.5) % Plt Count 249 (120.0-450.0) 10^3/uL MPV 10.1 (7.0-11.0) fl pCO2 (35-45) mm/Hg pO2 (30-55) mm/Hg HCO3 (21-28) mmol/L ABG pH (7.35-7.45) ABG Total CO2 (22-28) mmol.L ABG O2 Saturation (95-98) % ABG Base Excess (-2.0-3.0) mmol/L ABG Potassium (3.6-5.2) mmol/L VBG pH (7.32-7.43) VBG pCO2 (40-60) VBG HCO3 (21-28) mmol/l VBG Total CO2 (22-28) mmol.L VBG O2 Sat (Calc) (40-65) % VBG Base Excess (0.0-2.0) mmol/L VBG Potassium (3.6-5.2) mmol/L Sodium 139 (132-148) mmol/L Chloride 100 (98-107) mmol/L Glucose (65-105) mg/dl Lactate (0.7-2.1) mmol/L FiO2 % Potassium 3.8 (3.6-5.0) mmol/L Carbon Dioxide 29 (21-33) mmol/L Anion Gap 14 (10-20) BUN 31 H (7-21) mg/dL Creatinine 1.0 (0.5-1.4) mg/dL Est GFR ( Amer) > 60 Est GFR (Non-Af Amer) 57 POC Glucose (mg/dL) 127 H (65-110) mg/dL Random Glucose 103 (70-110) mg/dL Hemoglobin A1c (4.2-6.5) % Calcium 8.4 (8.4-10.5) mg/dL Phosphorus 3.6 (2.5-4.5) mg/dL Magnesium 1.8 (1.7-2.2) mg/dL Total Bilirubin 0.3 (0.2-1.3) mg/dL AST 26 (15-39) U/L ALT 24 (7-56) U/L Alkaline Phosphatase 84 (38-133) U/L Total Creatine Kinase 43 (35-230) U/L Total Protein 5.7 L (5.8-8.3) g/dL Albumin 3.2 (3.0-4.8) g/dL Globulin 2.5 gm/dL Albumin/Globulin Ratio 1.3 (1.1-1.8) Arterial Blood Potassium (3.6-5.2) mmol/L Venous Blood Potassium (3.6-5.2) mmol/L Urine Color (YELLOW) Urine Appearance (CLEAR) Urine pH (4.7-8.0) Ur Specific [place] (1.005-1.035) Urine Protein (<30 mg/dL) mg/dL Urine Glucose (UA) (NEGATIVE) mg/dL Urine Ketones (NEGATIVE) mg/dL Urine Blood (NEGATIVE) Urine Nitrate (NEGATIVE) Urine Bilirubin (NEGATIVE) Urine Urobilinogen (<1 E.U./dL) E.U./dL Ur Leukocyte Esterase (NEGATIVE) Jennifer/uL Urine RBC (0-2) /hpf Urine WBC (0-6) /hpf Ur Epithelial Cells (0-5) /hpf Amorphous Sediment Urine Bacteria (NEG) Urine Osmolality (50-645) mosm/kg Ur Random Creatinine mg/dL Ur Random Sodium meq/L Ur Random Potassium meq/L Urine HCG, Qual (NEGATIVE) Urine Opiates Screen (NEGATIVE) Urine Methadone Screen (NEGATIVE) Ur Barbiturates Screen (NEGATIVE) Ur Phencyclidine Scrn (NEGATIVE) Ur Amphetamines Screen (NEGATIVE) U Benzodiazepines Scrn (NEGATIVE) U Oth Cocaine Metabols (NEGATIVE) U Cannabinoids Screen (NEGATIVE) 01/28/17 01/28/17 01/28/17 Range/Units 05:08 04:02 03:05 WBC (4.5-11.0) 10^3/ul RBC (3.5-6.1) 10^6/uL Hgb (12.0-16.0) g/dL Hct (36.0-48.0) % MCV (80.0-105.0) fl MCH (25.0-35.0) pg MCHC (31.0-37.0) g/dl RDW (11.5-14.5) % Plt Count (120.0-450.0) 10^3/uL MPV (7.0-11.0) fl pCO2 (35-45) mm/Hg pO2 (30-55) mm/Hg HCO3 (21-28) mmol/L ABG pH (7.35-7.45) ABG Total CO2 (22-28) mmol.L ABG O2 Saturation (95-98) % ABG Base Excess (-2.0-3.0) mmol/L ABG Potassium (3.6-5.2) mmol/L VBG pH (7.32-7.43) VBG pCO2 (40-60) VBG HCO3 (21-28) mmol/l VBG Total CO2 (22-28) mmol.L VBG O2 Sat (Calc) (40-65) % VBG Base Excess (0.0-2.0) mmol/L VBG Potassium (3.6-5.2) mmol/L Sodium (132-148) mmol/L Chloride (98-107) mmol/L Glucose (65-105) mg/dl Lactate (0.7-2.1) mmol/L FiO2 % Potassium (3.6-5.0) mmol/L Carbon Dioxide (21-33) mmol/L Anion Gap (10-20) BUN (7-21) mg/dL Creatinine (0.5-1.4) mg/dL Est GFR ( Amer) Est GFR (Non-Af Amer) POC Glucose (mg/dL) 114 H 107 94 (65-110) mg/dL Random Glucose (70-110) mg/dL Hemoglobin A1c (4.2-6.5) % Calcium (8.4-10.5) mg/dL Phosphorus (2.5-4.5) mg/dL Magnesium (1.7-2.2) mg/dL Total Bilirubin (0.2-1.3) mg/dL AST (15-39) U/L ALT (7-56) U/L Alkaline Phosphatase (38-133) U/L Total Creatine Kinase (35-230) U/L Total Protein (5.8-8.3) g/dL Albumin (3.0-4.8) g/dL Globulin gm/dL Albumin/Globulin Ratio (1.1-1.8) Arterial Blood Potassium (3.6-5.2) mmol/L Venous Blood Potassium (3.6-5.2) mmol/L Urine Color (YELLOW) Urine Appearance (CLEAR) Urine pH (4.7-8.0) Ur Specific [place] (1.005-1.035) Urine Protein (<30 mg/dL) mg/dL Urine Glucose (UA) (NEGATIVE) mg/dL Urine Ketones (NEGATIVE) mg/dL Urine Blood (NEGATIVE) Urine Nitrate (NEGATIVE) Urine Bilirubin (NEGATIVE) Urine Urobilinogen (<1 E.U./dL) E.U./dL Ur Leukocyte Esterase (NEGATIVE) Jennifer/uL Urine RBC (0-2) /hpf Urine WBC (0-6) /hpf Ur Epithelial Cells (0-5) /hpf Amorphous Sediment Urine Bacteria (NEG) Urine Osmolality (50-645) mosm/kg Ur Random Creatinine mg/dL Ur Random Sodium meq/L Ur Random Potassium meq/L Urine HCG, Qual (NEGATIVE) Urine Opiates Screen (NEGATIVE) Urine Methadone Screen (NEGATIVE) Ur Barbiturates Screen (NEGATIVE) Ur Phencyclidine Scrn (NEGATIVE) Ur Amphetamines Screen (NEGATIVE) U Benzodiazepines Scrn (NEGATIVE) U Oth Cocaine Metabols (NEGATIVE) U Cannabinoids Screen (NEGATIVE) 01/28/17 01/28/17 01/28/17 Range/Units 01:55 01:16 00:45 WBC (4.5-11.0) 10^3/ul RBC (3.5-6.1) 10^6/uL Hgb (12.0-16.0) g/dL Hct (36.0-48.0) % MCV (80.0-105.0) fl MCH (25.0-35.0) pg MCHC (31.0-37.0) g/dl RDW (11.5-14.5) % Plt Count (120.0-450.0) 10^3/uL MPV (7.0-11.0) fl pCO2 (35-45) mm/Hg pO2 29 L (30-55) mm/Hg HCO3 (21-28) mmol/L ABG pH (7.35-7.45) ABG Total CO2 (22-28) mmol.L ABG O2 Saturation (95-98) % ABG Base Excess (-2.0-3.0) mmol/L ABG Potassium (3.6-5.2) mmol/L VBG pH 7.35 (7.32-7.43) VBG pCO2 61.0 H (40-60) VBG HCO3 33.7 H (21-28) mmol/l VBG Total CO2 35.6 H (22-28) mmol.L VBG O2 Sat (Calc) 59.9 (40-65) % VBG Base Excess 6.1 H (0.0-2.0) mmol/L VBG Potassium 3.5 L (3.6-5.2) mmol/L Sodium 138.0 (132-148) mmol/L Chloride 98.0 (98-107) mmol/L Glucose 199 H (65-105) mg/dl Lactate 3.1 H (0.7-2.1) mmol/L FiO2 21.0 % Potassium (3.6-5.0) mmol/L Carbon Dioxide (21-33) mmol/L Anion Gap (10-20) BUN (7-21) mg/dL Creatinine (0.5-1.4) mg/dL Est GFR ( Amer) Est GFR (Non-Af Amer) POC Glucose (mg/dL) 137 H 171 H (65-110) mg/dL Random Glucose (70-110) mg/dL Hemoglobin A1c (4.2-6.5) % Calcium (8.4-10.5) mg/dL Phosphorus (2.5-4.5) mg/dL Magnesium (1.7-2.2) mg/dL Total Bilirubin (0.2-1.3) mg/dL AST (15-39) U/L ALT (7-56) U/L Alkaline Phosphatase (38-133) U/L Total Creatine Kinase (35-230) U/L Total Protein (5.8-8.3) g/dL Albumin (3.0-4.8) g/dL Globulin gm/dL Albumin/Globulin Ratio (1.1-1.8) Arterial Blood Potassium (3.6-5.2) mmol/L Venous Blood Potassium 3.5 L (3.6-5.2) mmol/L Urine Color (YELLOW) Urine Appearance (CLEAR) Urine pH (4.7-8.0) Ur Specific [place] (1.005-1.035) Urine Protein (<30 mg/dL) mg/dL Urine Glucose (UA) (NEGATIVE) mg/dL Urine Ketones (NEGATIVE) mg/dL Urine Blood (NEGATIVE) Urine Nitrate (NEGATIVE) Urine Bilirubin (NEGATIVE) Urine Urobilinogen (<1 E.U./dL) E.U./dL Ur Leukocyte Esterase (NEGATIVE) Jennifer/uL Urine RBC (0-2) /hpf Urine WBC (0-6) /hpf Ur Epithelial Cells (0-5) /hpf Amorphous Sediment Urine Bacteria (NEG) Urine Osmolality (50-645) mosm/kg Ur Random Creatinine mg/dL Ur Random Sodium meq/L Ur Random Potassium meq/L Urine HCG, Qual (NEGATIVE) Urine Opiates Screen (NEGATIVE) Urine Methadone Screen (NEGATIVE) Ur Barbiturates Screen (NEGATIVE) Ur Phencyclidine Scrn (NEGATIVE) Ur Amphetamines Screen (NEGATIVE) U Benzodiazepines Scrn (NEGATIVE) U Oth Cocaine Metabols (NEGATIVE) U Cannabinoids Screen (NEGATIVE) 01/28/17 01/28/17 01/27/17 Range/Units 00:45 00:02 22:59 WBC (4.5-11.0) 10^3/ul RBC (3.5-6.1) 10^6/uL Hgb (12.0-16.0) g/dL Hct (36.0-48.0) % MCV (80.0-105.0) fl MCH (25.0-35.0) pg MCHC (31.0-37.0) g/dl RDW (11.5-14.5) % Plt Count (120.0-450.0) 10^3/uL MPV (7.0-11.0) fl pCO2 (35-45) mm/Hg pO2 (30-55) mm/Hg HCO3 (21-28) mmol/L ABG pH (7.35-7.45) ABG Total CO2 (22-28) mmol.L ABG O2 Saturation (95-98) % ABG Base Excess (-2.0-3.0) mmol/L ABG Potassium (3.6-5.2) mmol/L VBG pH (7.32-7.43) VBG pCO2 (40-60) VBG HCO3 (21-28) mmol/l VBG Total CO2 (22-28) mmol.L VBG O2 Sat (Calc) (40-65) % VBG Base Excess (0.0-2.0) mmol/L VBG Potassium (3.6-5.2) mmol/L Sodium 137 (132-148) mmol/L Chloride 94 L (98-107) mmol/L Glucose (65-105) mg/dl Lactate (0.7-2.1) mmol/L FiO2 % Potassium 3.6 (3.6-5.0) mmol/L Carbon Dioxide 32 (21-33) mmol/L Anion Gap 15 (10-20) BUN 30 H (7-21) mg/dL Creatinine 1.0 (0.5-1.4) mg/dL Est GFR ( Amer) > 60 Est GFR (Non-Af Amer) 57 POC Glucose (mg/dL) 241 H 243 H (65-110) mg/dL Random Glucose 196 H (70-110) mg/dL Hemoglobin A1c (4.2-6.5) % Calcium 8.6 (8.4-10.5) mg/dL Phosphorus 3.7 (2.5-4.5) mg/dL Magnesium 1.5 L (1.7-2.2) mg/dL Total Bilirubin (0.2-1.3) mg/dL AST (15-39) U/L ALT (7-56) U/L Alkaline Phosphatase (38-133) U/L Total Creatine Kinase (35-230) U/L Total Protein (5.8-8.3) g/dL Albumin (3.0-4.8) g/dL Globulin gm/dL Albumin/Globulin Ratio (1.1-1.8) Arterial Blood Potassium (3.6-5.2) mmol/L Venous Blood Potassium (3.6-5.2) mmol/L Urine Color (YELLOW) Urine Appearance (CLEAR) Urine pH (4.7-8.0) Ur Specific [place] (1.005-1.035) Urine Protein (<30 mg/dL) mg/dL Urine Glucose (UA) (NEGATIVE) mg/dL Urine Ketones (NEGATIVE) mg/dL Urine Blood (NEGATIVE) Urine Nitrate (NEGATIVE) Urine Bilirubin (NEGATIVE) Urine Urobilinogen (<1 E.U./dL) E.U./dL Ur Leukocyte Esterase (NEGATIVE) Jennifer/uL Urine RBC (0-2) /hpf Urine WBC (0-6) /hpf Ur Epithelial Cells (0-5) /hpf Amorphous Sediment Urine Bacteria (NEG) Urine Osmolality (50-645) mosm/kg Ur Random Creatinine mg/dL Ur Random Sodium meq/L Ur Random Potassium meq/L Urine HCG, Qual (NEGATIVE) Urine Opiates Screen (NEGATIVE) Urine Methadone Screen (NEGATIVE) Ur Barbiturates Screen (NEGATIVE) Ur Phencyclidine Scrn (NEGATIVE) Ur Amphetamines Screen (NEGATIVE) U Benzodiazepines Scrn (NEGATIVE) U Oth Cocaine Metabols (NEGATIVE) U Cannabinoids Screen (NEGATIVE) 01/27/17 01/27/17 01/27/17 Range/Units 22:24 21:22 20:40 WBC (4.5-11.0) 10^3/ul RBC (3.5-6.1) 10^6/uL Hgb (12.0-16.0) g/dL Hct (36.0-48.0) % MCV (80.0-105.0) fl MCH (25.0-35.0) pg MCHC (31.0-37.0) g/dl RDW (11.5-14.5) % Plt Count (120.0-450.0) 10^3/uL MPV (7.0-11.0) fl pCO2 (35-45) mm/Hg pO2 47 (30-55) mm/Hg HCO3 (21-28) mmol/L ABG pH (7.35-7.45) ABG Total CO2 (22-28) mmol.L ABG O2 Saturation (95-98) % ABG Base Excess (-2.0-3.0) mmol/L ABG Potassium (3.6-5.2) mmol/L VBG pH 7.38 (7.32-7.43) VBG pCO2 54.0 (40-60) VBG HCO3 31.9 H (21-28) mmol/l VBG Total CO2 33.6 H (22-28) mmol.L VBG O2 Sat (Calc) 84.4 H (40-65) % VBG Base Excess 5.3 H (0.0-2.0) mmol/L VBG Potassium 3.5 L (3.6-5.2) mmol/L Sodium 138.0 (132-148) mmol/L Chloride 98.0 (98-107) mmol/L Glucose 248 H (65-105) mg/dl Lactate 3.9 H (0.7-2.1) mmol/L FiO2 21.0 % Potassium (3.6-5.0) mmol/L Carbon Dioxide (21-33) mmol/L Anion Gap (10-20) BUN (7-21) mg/dL Creatinine (0.5-1.4) mg/dL Est GFR ( Amer) Est GFR (Non-Af Amer) POC Glucose (mg/dL) 295 H (65-110) mg/dL Random Glucose (70-110) mg/dL Hemoglobin A1c (4.2-6.5) % Calcium (8.4-10.5) mg/dL Phosphorus (2.5-4.5) mg/dL Magnesium (1.7-2.2) mg/dL Total Bilirubin (0.2-1.3) mg/dL AST (15-39) U/L ALT (7-56) U/L Alkaline Phosphatase (38-133) U/L Total Creatine Kinase (35-230) U/L Total Protein (5.8-8.3) g/dL Albumin (3.0-4.8) g/dL Globulin gm/dL Albumin/Globulin Ratio (1.1-1.8) Arterial Blood Potassium (3.6-5.2) mmol/L Venous Blood Potassium 3.5 L (3.6-5.2) mmol/L Urine Color (YELLOW) Urine Appearance (CLEAR) Urine pH (4.7-8.0) Ur Specific [place] (1.005-1.035) Urine Protein (<30 mg/dL) mg/dL Urine Glucose (UA) (NEGATIVE) mg/dL Urine Ketones (NEGATIVE) mg/dL Urine Blood (NEGATIVE) Urine Nitrate (NEGATIVE) Urine Bilirubin (NEGATIVE) Urine Urobilinogen (<1 E.U./dL) E.U./dL Ur Leukocyte Esterase (NEGATIVE) Jennifer/uL Urine RBC (0-2) /hpf Urine WBC (0-6) /hpf Ur Epithelial Cells (0-5) /hpf Amorphous Sediment Urine Bacteria (NEG) Urine Osmolality (50-645) mosm/kg Ur Random Creatinine 25 mg/dL Ur Random Sodium 56 meq/L Ur Random Potassium 27.3 meq/L Urine HCG, Qual (NEGATIVE) Urine Opiates Screen (NEGATIVE) Urine Methadone Screen (NEGATIVE) Ur Barbiturates Screen (NEGATIVE) Ur Phencyclidine Scrn (NEGATIVE) Ur Amphetamines Screen (NEGATIVE) U Benzodiazepines Scrn (NEGATIVE) U Oth Cocaine Metabols (NEGATIVE) U Cannabinoids Screen (NEGATIVE) 01/27/17 01/27/17 Range/Units 20:40 20:40 WBC (4.5-11.0) 10^3/ul RBC (3.5-6.1) 10^6/uL Hgb (12.0-16.0) g/dL Hct (36.0-48.0) % MCV (80.0-105.0) fl MCH (25.0-35.0) pg MCHC (31.0-37.0) g/dl RDW (11.5-14.5) % Plt Count (120.0-450.0) 10^3/uL MPV (7.0-11.0) fl pCO2 (35-45) mm/Hg pO2 (30-55) mm/Hg HCO3 (21-28) mmol/L ABG pH (7.35-7.45) ABG Total CO2 (22-28) mmol.L ABG O2 Saturation (95-98) % ABG Base Excess (-2.0-3.0) mmol/L ABG Potassium (3.6-5.2) mmol/L VBG pH (7.32-7.43) VBG pCO2 (40-60) VBG HCO3 (21-28) mmol/l VBG Total CO2 (22-28) mmol.L VBG O2 Sat (Calc) (40-65) % VBG Base Excess (0.0-2.0) mmol/L VBG Potassium (3.6-5.2) mmol/L Sodium (132-148) mmol/L Chloride (98-107) mmol/L Glucose (65-105) mg/dl Lactate (0.7-2.1) mmol/L FiO2 % Potassium (3.6-5.0) mmol/L Carbon Dioxide (21-33) mmol/L Anion Gap (10-20) BUN (7-21) mg/dL Creatinine (0.5-1.4) mg/dL Est GFR ( Amer) Est GFR (Non-Af Amer) POC Glucose (mg/dL) (65-110) mg/dL Random Glucose (70-110) mg/dL Hemoglobin A1c (4.2-6.5) % Calcium (8.4-10.5) mg/dL Phosphorus (2.5-4.5) mg/dL Magnesium (1.7-2.2) mg/dL Total Bilirubin (0.2-1.3) mg/dL AST (15-39) U/L ALT (7-56) U/L Alkaline Phosphatase (38-133) U/L Total Creatine Kinase (35-230) U/L Total Protein (5.8-8.3) g/dL Albumin (3.0-4.8) g/dL Globulin gm/dL Albumin/Globulin Ratio (1.1-1.8) Arterial Blood Potassium (3.6-5.2) mmol/L Venous Blood Potassium (3.6-5.2) mmol/L Urine Color Yellow (YELLOW) Urine Appearance Clear (CLEAR) Urine pH 6.5 (4.7-8.0) Ur Specific [place] 1.020 (1.005-1.035) Urine Protein >=300 H (<30 mg/dL) mg/dL Urine Glucose (UA) >=1000 (NEGATIVE) mg/dL Urine Ketones 40 H (NEGATIVE) mg/dL Urine Blood Moderate H (NEGATIVE) Urine Nitrate Negative (NEGATIVE) Urine Bilirubin Negative (NEGATIVE) Urine Urobilinogen 0.2 (<1 E.U./dL) E.U./dL Ur Leukocyte Esterase Negative (NEGATIVE) Jennifer/uL Urine RBC 15 - 20 (0-2) /hpf Urine WBC 2 - 5 (0-6) /hpf Ur Epithelial Cells 6 - 8 (0-5) /hpf Amorphous Sediment Trace Urine Bacteria Trace (NEG) Urine Osmolality 597 (50-645) mosm/kg Ur Random Creatinine mg/dL Ur Random Sodium meq/L Ur Random Potassium meq/L Urine HCG, Qual Negative (NEGATIVE) Urine Opiates Screen Negative (NEGATIVE) Urine Methadone Screen Negative (NEGATIVE) Ur Barbiturates Screen Negative (NEGATIVE) Ur Phencyclidine Scrn Negative (NEGATIVE) Ur Amphetamines Screen Negative (NEGATIVE) U Benzodiazepines Scrn Positive H (NEGATIVE) U Oth Cocaine Metabols Negative (NEGATIVE) U Cannabinoids Screen Negative (NEGATIVE) Laboratory Results - last 24 hr 01/27/17 01/27/1701/27/17 20:40 20:40 20:40 WBC RBC Hgb Hct MCV MCH MCHC RDW Plt Count MPV pCO2 pO2 HCO3 ABG pH ABG Total CO2 ABG O2 Saturation ABG Base Excess ABG Potassium VBG pH VBG pCO2 VBG HCO3 VBG Total CO2 VBG O2 Sat (Calc) VBG Base Excess VBG Potassium Sodium Chloride Glucose Lactate FiO2 Potassium Carbon Dioxide Anion Gap BUN Creatinine Est GFR ( Amer) Est GFR (Non-Af Amer) POC Glucose (mg/dL) Random Glucose Hemoglobin A1c Calcium Phosphorus Magnesium Total Bilirubin AST ALT Alkaline Phosphatase Total Creatine Kinase Total Protein Albumin Globulin Albumin/Globulin Ratio Arterial Blood Potassium Venous Blood Potassium Urine Color Yellow Urine Appearance Clear Urine pH 6.5 Ur Specific [place] 1.020 Urine Protein >=300 H Urine Glucose (UA) >=1000 Urine Ketones 40 H Urine Blood Moderate H Urine Nitrate Negative Urine Bilirubin Negative Urine Urobilinogen 0.2 Ur Leukocyte Esterase Negative Urine RBC 15 - 20 Urine WBC 2 - 5 Ur Epithelial Cells 6 - 8 Amorphous Sediment Trace Urine Bacteria Trace Urine Osmolality 597 Ur Random Creatinine 25 Ur Random Sodium 56 Ur Random Potassium 27.3 Urine HCG, Qual Negative Urine Opiates Screen Negative Urine Methadone Screen Negative Ur Barbiturates Screen Negative Ur Phencyclidine Scrn Negative Ur Amphetamines Screen Negative U Benzodiazepines Scrn Positive H U Oth Cocaine Metabols Negative U Cannabinoids Screen Negative 01/27/17 01/27/17 01/27/17 21:22 22:24 22:59 WBC RBC Hgb Hct MCV MCH MCHC RDW Plt Count MPV pCO2 pO2 47 HCO3 ABG pH ABG Total CO2 ABG O2 Saturation ABG Base Excess ABG Potassium VBG pH 7.38 VBG pCO2 54.0 VBG HCO3 31.9 H VBG Total CO2 33.6 H VBG O2 Sat (Calc) 84.4 H VBG Base Excess 5.3 H VBG Potassium 3.5 L Sodium 138.0 Chloride 98.0 Glucose 248 H Lactate 3.9 H FiO2 21.0 Potassium Carbon Dioxide Anion Gap BUN Creatinine Est GFR ( Amer) Est GFR (Non-Af Amer) POC Glucose (mg/dL) 295 H 243 H Random Glucose Hemoglobin A1c Calcium Phosphorus Magnesium Total Bilirubin AST ALT Alkaline Phosphatase Total Creatine Kinase Total Protein Albumin Globulin Albumin/Globulin Ratio Arterial Blood Potassium Venous Blood Potassium 3.5 L Urine Color Urine Appearance Urine pH Ur Specific [place] Urine Protein Urine Glucose (UA) Urine Ketones Urine Blood Urine Nitrate Urine Bilirubin Urine Urobilinogen Ur Leukocyte Esterase Urine RBC Urine WBC Ur Epithelial Cells Amorphous Sediment Urine Bacteria Urine Osmolality Ur Random Creatinine Ur Random Sodium Ur Random Potassium Urine HCG, Qual Urine Opiates Screen Urine Methadone Screen Ur Barbiturates Screen Ur Phencyclidine Scrn Ur Amphetamines Screen U Benzodiazepines Scrn U Oth Cocaine Metabols U Cannabinoids Screen 01/28/17 01/28/17 01/28/17 00:02 00:45 00:45 WBC RBC Hgb Hct MCV MCH MCHC RDW Plt Count MPV pCO2 pO2 29 L HCO3 ABG pH ABG Total CO2 ABG O2 Saturation ABG Base Excess ABG Potassium VBG pH 7.35 VBG pCO2 61.0 H VBG HCO3 33.7 H VBG Total CO2 35.6 H VBG O2 Sat (Calc) 59.9 VBG Base Excess 6.1 H VBG Potassium 3.5 L Sodium 137 138.0 Chloride 94 L 98.0 Glucose 199 H Lactate 3.1 H FiO2 21.0 Potassium 3.6 Carbon Dioxide 32 Anion Gap 15 BUN 30 H Creatinine 1.0 Est GFR ( Amer) > 60 Est GFR (Non-Af Amer) 57 POC Glucose (mg/dL) 241 H Random Glucose 196 H Hemoglobin A1c Calcium 8.6 Phosphorus 3.7 Magnesium 1.5 L Total Bilirubin AST ALT Alkaline Phosphatase Total Creatine Kinase Total Protein Albumin Globulin Albumin/Globulin Ratio Arterial Blood Potassium Venous Blood Potassium 3.5 L Urine Color Urine Appearance Urine pH Ur Specific [place] Urine Protein Urine Glucose (UA) Urine Ketones Urine Blood Urine Nitrate Urine Bilirubin Urine Urobilinogen Ur Leukocyte Esterase Urine RBC Urine WBC Ur Epithelial Cells Amorphous Sediment Urine Bacteria Urine Osmolality Ur Random Creatinine Ur Random Sodium Ur Random Potassium Urine HCG, Qual Urine Opiates Screen Urine Methadone Screen Ur Barbiturates Screen Ur Phencyclidine Scrn Ur Amphetamines Screen U Benzodiazepines Scrn U Oth Cocaine Metabols U Cannabinoids Screen 01/28/17 01/28/17 01/28/17 01:16 01:55 03:05 WBC RBC Hgb Hct MCV MCH MCHC RDW Plt Count MPV pCO2 pO2 HCO3 ABG pH ABG Total CO2 ABG O2 Saturation ABG Base Excess ABG Potassium VBG pH VBG pCO2 VBG HCO3 VBG Total CO2 VBG O2 Sat (Calc) VBG Base Excess VBG Potassium Sodium Chloride Glucose Lactate FiO2 Potassium Carbon Dioxide Anion Gap BUN Creatinine Est GFR ( Amer) Est GFR (Non-Af Amer) POC Glucose (mg/dL) 171 H 137 H 94 Random Glucose Hemoglobin A1c Calcium Phosphorus Magnesium Total Bilirubin AST ALT Alkaline Phosphatase Total Creatine Kinase Total Protein Albumin Globulin Albumin/Globulin Ratio Arterial Blood Potassium Venous Blood Potassium Urine Color Urine Appearance Urine pH Ur Specific [place] Urine Protein Urine Glucose (UA) Urine Ketones Urine Blood Urine Nitrate Urine Bilirubin Urine Urobilinogen Ur Leukocyte Esterase Urine RBC Urine WBC Ur Epithelial Cells Amorphous Sediment Urine Bacteria Urine Osmolality Ur Random Creatinine Ur Random Sodium Ur Random Potassium Urine HCG, Qual Urine Opiates Screen Urine Methadone Screen Ur Barbiturates Screen Ur Phencyclidine Scrn Ur Amphetamines Screen U Benzodiazepines Scrn U Oth Cocaine Metabols U Cannabinoids Screen 01/28/17 01/28/17 01/28/17 04:02 05:08 06:01 WBC RBC Hgb Hct MCV MCH MCHC RDW Plt Count MPV pCO2 pO2 HCO3 ABG pH ABG Total CO2 ABG O2 Saturation ABG Base Excess ABG Potassium VBG pH VBG pCO2 VBG HCO3 VBG Total CO2 VBG O2 Sat (Calc) VBG Base Excess VBG Potassium Sodium Chloride Glucose Lactate FiO2 Potassium Carbon Dioxide Anion Gap BUN Creatinine Est GFR ( Amer) Est GFR (Non-Af Amer) POC Glucose (mg/dL) 107 114 H 127 H Random Glucose Hemoglobin A1c Calcium Phosphorus Magnesium Total Bilirubin AST ALT Alkaline Phosphatase Total Creatine Kinase Total Protein Albumin Globulin Albumin/Globulin Ratio Arterial Blood Potassium Venous Blood Potassium Urine Color Urine Appearance Urine pH Ur Specific [place] Urine Protein Urine Glucose (UA) Urine Ketones Urine Blood Urine Nitrate Urine Bilirubin Urine Urobilinogen Ur Leukocyte Esterase Urine RBC Urine WBC Ur Epithelial Cells Amorphous Sediment Urine Bacteria Urine Osmolality Ur Random Creatinine Ur Random Sodium Ur Random Potassium Urine HCG, Qual Urine Opiates Screen Urine Methadone Screen Ur Barbiturates Screen Ur Phencyclidine Scrn Ur Amphetamines Screen U Benzodiazepines Scrn U Oth Cocaine Metabols U Cannabinoids Screen 01/28/17 01/28/17 01/28/17 06:05 06:05 06:05 WBC 13.2 H D RBC 4.22 Hgb 11.6 L Hct 33.8 L MCV 80.1 MCH 27.5 MCHC 34.3 RDW 13.7 Plt Count 249 MPV 10.1 pCO2 pO2 HCO3 ABG pH ABG Total CO2 ABG O2 Saturation ABG Base Excess ABG Potassium VBG pH VBG pCO2 VBG HCO3 VBG Total CO2 VBG O2 Sat (Calc) VBG Base Excess VBG Potassium Sodium 139 Chloride 100 Glucose Lactate FiO2 Potassium 3.8 Carbon Dioxide 29 Anion Gap 14 BUN 31 H Creatinine 1.0 Est GFR ( Amer) > 60 Est GFR (Non-Af Amer) 57 POC Glucose (mg/dL) Random Glucose 103 Hemoglobin A1c 10.7 H Calcium 8.4 Phosphorus 3.6 Magnesium 1.8 Total Bilirubin 0.3 AST 26 ALT 24 Alkaline Phosphatase 84 Total Creatine Kinase 43 Total Protein 5.7 L Albumin 3.2 Globulin 2.5 Albumin/Globulin Ratio 1.3 Arterial Blood Potassium Venous Blood Potassium Urine Color Urine Appearance Urine pH Ur Specific [place] Urine Protein Urine Glucose (UA) Urine Ketones Urine Blood Urine Nitrate Urine Bilirubin Urine Urobilinogen Ur Leukocyte Esterase Urine RBC Urine WBC Ur Epithelial Cells Amorphous Sediment Urine Bacteria Urine Osmolality Ur Random Creatinine Ur Random Sodium Ur Random Potassium Urine HCG, Qual Urine Opiates Screen Urine Methadone Screen Ur Barbiturates Screen Ur Phencyclidine Scrn Ur Amphetamines Screen U Benzodiazepines Scrn U Oth Cocaine Metabols U Cannabinoids Screen 01/28/17 01/28/17 01/28/17 06:05 06:57 09:30 WBC RBC Hgb Hct MCV MCH MCHC RDW Plt Count MPV pCO2 pO2 94 H HCO3 ABG pH ABG Total CO2 ABG O2 Saturation ABG Base Excess ABG Potassium VBG pH 7.30 L VBG pCO2 66.0 H* VBG HCO3 32.5 H VBG Total CO2 34.5 H VBG O2 Sat (Calc) 95.6 H VBG Base Excess 4.3 H VBG Potassium 3.8 Sodium 138.0 139 Chloride 101.0 101 Glucose 106 H Lactate 2.2 H FiO2 21.0 Potassium 4.0 Carbon Dioxide 29 Anion Gap 13 BUN 25 H Creatinine 0.9 Est GFR ( Amer) > 60 Est GFR (Non-Af Amer) > 60 POC Glucose (mg/dL) 111 H Random Glucose 98 Hemoglobin A1c Calcium 8.7 Phosphorus 3.1 Magnesium 1.8 Total Bilirubin AST ALT Alkaline Phosphatase Total Creatine Kinase Total Protein Albumin Globulin Albumin/Globulin Ratio Arterial Blood Potassium Venous Blood Potassium 3.8 Urine Color Urine Appearance Urine pH Ur Specific [place] Urine Protein Urine Glucose (UA) Urine Ketones Urine Blood Urine Nitrate Urine Bilirubin Urine Urobilinogen Ur Leukocyte Esterase Urine RBC Urine WBC Ur Epithelial Cells Amorphous Sediment Urine Bacteria Urine Osmolality Ur Random Creatinine Ur Random Sodium Ur Random Potassium Urine HCG, Qual Urine Opiates Screen Urine Methadone Screen Ur Barbiturates Screen Ur Phencyclidine Scrn Ur Amphetamines Screen U Benzodiazepines Scrn U Oth Cocaine Metabols U Cannabinoids Screen 01/28/17 01/28/17 10:58 14:05 WBC RBC Hgb Hct MCV MCH MCHC RDW Plt Count MPV pCO2 34 L pO2 128.0 H HCO3 26.5 ABG pH 7.50 H ABG Total CO2 27.5 ABG O2 Saturation 96.6 ABG Base Excess 3.6 H ABG Potassium 3.7 VBG pH VBG pCO2 VBG HCO3 VBG Total CO2 VBG O2 Sat (Calc) VBG Base Excess VBG Potassium Sodium 138.0 138 Chloride 105.0 103 Glucose 91 Lactate 1.1 FiO2 28.0 Potassium 3.9 Carbon Dioxide 27 Anion Gap 12 BUN 18 Creatinine 0.7 Est GFR ( Amer) > 60 Est GFR (Non-Af Amer) > 60 POC Glucose (mg/dL) Random Glucose 91 Hemoglobin A1c Calcium 8.7 Phosphorus 2.5 Magnesium 1.8 Total Bilirubin AST ALT Alkaline Phosphatase Total Creatine Kinase Total Protein Albumin Globulin Albumin/Globulin Ratio Arterial Blood Potassium 3.7 Venous Blood Potassium Urine Color Urine Appearance Urine pH Ur Specific [place] Urine Protein Urine Glucose (UA) Urine Ketones Urine Blood Urine Nitrate Urine Bilirubin Urine Urobilinogen Ur Leukocyte Esterase Urine RBC Urine WBC Ur Epithelial Cells Amorphous Sediment Urine Bacteria Urine Osmolality Ur Random Creatinine Ur Random Sodium Ur Random Potassium Urine HCG, Qual Urine Opiates Screen Urine Methadone Screen Ur Barbiturates Screen Ur Phencyclidine Scrn Ur Amphetamines Screen U Benzodiazepines Scrn U Oth Cocaine Metabols U Cannabinoids Screen EKG/Cardiology Studies: Cardiology / EKG Studies 01/27/17 19:50 EKG [ELECTROCARDIOGRAM] Stat Comment: Reason For Exam: AMS 01/28/17 09:44 ELECTROCARDIOGRAM Routine Reason For Exam: [facility] Critical Care Progress Note - Nutrition Nutrition: Nutrition Category Date Time Status NPO Diet [DIET] Diets 01/27/17 Breakfast Ordered Attending/Attestation - Attestation I have personally seen and examined this patient.: Yes I have fully participated in the care of the patient.: Yes I have reviewed all pertinent clinical information: Yes Notes (Text): 01/28/17 14:57 56 yo female with long standing and poorly controlled DM and DM-neuropathy, PVD , gastroparesis, now admitted for DKA. As patient has chronic abdominal pain, she is on chronic ultram, which may or may not contributed to acute respiratory acidosis, which later today spontaneously resolved. AG closed, BG controlled, insulin drip overlapped and then switched to s/c longer acting insulin. QTc slightly prolonged will hold Reglan, Cimbalta. Will start Po nutrition and hydration. BPAP at night and as needed. Afebrile, leukocytosis improved. if septic workup wont reveal any etiology, will stop Abx in 24 hrs. ccm time 40 min
--- NOTE | 2017-01-28 13:04 | CP.PCM.CON ---
History of Present Illness - History of Present Illness History of Present Illness: GI Consult Note: 56F with pmh of noncompliance, IDDM, gastroparesis, multiple TIAs orthostatic hypotension, esophagitis presents to the ED for AMS. Pt daughter at bedside states that yesterday the pt was feeling weak and went to rest - few hours later she was found in bed by her daughter with fecal incontinence, unable to move b/l lower ext, and unresponsive. We are consulted for pt having severe epigastric abdominal pain that first started 2 years ago. Pt currently complains of epigastric abd pain that radiates to the back and is 9/10 in severity. She did have 4 episodes of nausea and NBNB vomiting yesterday morning. She also complains of constipation moving her bowels every 2-3 days. Pt underwent endoscopy last year which showed retained food products suspicious for gastroparesis.. Pt denies headache, dizziness, hematemesis, generalized or focal weakness, urinary complaints, cp, sob, palpitations, melena, and hematochezia. 12 point ROS obtained and neg except as noted above. PMHx: DM, TIA/CVA, gastroparesis, HTN, orthostatic hypotn, esophagitis PSHx: R mid foot amputation (2014) , hysterectomy, and cholecystectomy Allergies: NKA Social Hx: Denies alcohol, smoking and illicit drug use. Lives with daughter at home, uses walker to ambulate Family Hx: mother with stomach ca, Daughter with crohns Endo Hx: Endoscopy last year showed esophagitis and gastroparesis; Colonoscopy last year was negative Review of Systems - Review of Systems All systems: reviewed and no additional remarkable complaints except (HPI) Past Patient History - Infectious Disease Hx of Infectious Diseases: None - Past Social History Smoking Status: Never Smoked - CARDIAC Hx Hypertension: Yes - PULMONARY Hx Respiratory Disorders: No - NEUROLOGICAL HX Cerebrovascular Accident: Yes (TIA) - HEENT Hx HEENT Problems: (reading glasses) Hx Cataracts: Yes (bilateral sx) - RENAL Hx Chronic Kidney Disease: No - ENDOCRINE/METABOLIC Hx Diabetes Mellitus Type 1: Yes - HEMATOLOGICAL/ONCOLOGICAL Hx Blood Transfusions: Yes Hx Blood Transfusion Reaction: No - INTEGUMENTARY Other/Comment: 10 wilbert to back of head - MUSCULOSKELETAL/RHEUMATOLOGICAL Hx Falls: Yes (past) - GASTROINTESTINAL Hx Gastroesophageal Reflux: Yes (had endo; lesions in the esophagus) Other/Comment: Diabetic Gastroparesis - GENITOURINARY/GYNECOLOGICAL Hx Genitourinary Disorders: No - PSYCHIATRIC Hx Psychophysiologic Disorder: Yes Hx Depression: Yes Hx Substance Use: No - SURGICAL HISTORY Other/Comment: Amputation of half the Rt. foot. - ANESTHESIA Hx Anesthesia: Yes Hx Anesthesia Reactions: No Hx Malignant Hyperthermia: No Meds Allergies/Adverse Reactions: Allergies Allergy/AdvReac Type Severity Reaction Status Date / Time No Known Allergies Allergy Verified 01/27/17 18:33 - Medications Medications: Current Medications Acetaminophen (Tylenol 325mg Tab) 650 mg PO Q6H PRN PRN Reason: Pain, moderate (4-7) Last Admin: 01/28/17 07:53 Dose: 650 mg Aspirin (Ecotrin) 81 mg PO DAILY [facility] Last Admin: 01/28/17 09:20 Dose: 81 mg Duloxetine HCl (Cymbalta) 60 mg PO DAILY [facility] Last Admin: 01/28/17 09:17 Dose: 60 mg Potassium Chloride/Dextrose/Sod Cl (Potassium Chl 30 Meq In D5-1/2ns) 1,000 mls @ 200 mls/hr IV .Q5H [facility] Last Admin: 01/28/17 11:43 Dose: 200 mls/hr Insulin Detemir (Levemir) 10 unit SC Q12 [facility] Last Admin: 01/28/17 09:21 Dose: Not Given Insulin Human Regular (Humulin R Low) 0 units SC ACHS [facility] PRN Reason: Protocol Last Admin: 01/28/17 11:46 Dose: Not Given Lisinopril (Zestril) 5 mg PO DAILY [facility] Last Admin: 01/28/17 11:11 Dose: 5 mg Metoclopramide HCl (Reglan) 5 mg PO BID [facility] Last Admin: 01/28/17 09:20 Dose: 5 mg Pantoprazole Sodium (Protonix Inj) 40 mg IVP Q12 [facility] Last Admin: 01/28/17 11:12 Dose: 40 mg Tramadol HCl (Ultram) 100 mg PO Q6H PRN PRN Reason: pain Last Admin: 01/28/17 11:44 Dose: 100 mg Physical Exam - Constitutional Appears: Well - Head Exam Head Exam: ATRAUMATIC, NORMAL INSPECTION, NORMOCEPHALIC - Eye Exam Eye Exam: EOMI, Normal appearance, PERRL - ENT Exam ENT Exam: Mucous Membranes Moist - Respiratory Exam Respiratory Exam: Clear to Auscultation Bilateral. absent: Rales, Rhonchi, Wheezes - Cardiovascular Exam Cardiovascular Exam: REGULAR RHYTHM, RRR, +S1, +S2 - GI/Abdominal Exam GI & Abdominal Exam: Normal Bowel Sounds, Soft, Tenderness. absent: Distended, Guarding Additional comments: no guarding - Extremities Exam Extremities exam: Negative for: calf tenderness, pedal edema - Neurological Exam Neurological exam: Alert, CN II-XII Intact, Oriented x3 - Psychiatric Exam Psychiatric exam: Normal Affect, Normal Mood - Skin Skin Exam: Dry, Intact, Warm Results - Vital Signs Recent Vital Signs: Last Vital Signs Temp 98.3 F 01/28/17 12:00 Pulse 86 01/28/17 12:20 Resp 7 L 01/28/17 12:20 BP 167/91 H 01/28/17 12:00 Pulse Ox 99 01/28/17 12:20 - Labs Result Diagrams: 01/28/17 06:05 01/28/17 14:05 Labs: Laboratory Results - last 24 hr 01/27/17 01/27/17 01/27/17 20:40 20:40 20:40 WBC RBC Hgb Hct MCV MCH MCHC RDW Plt Count MPV pCO2 pO2 HCO3 ABG pH ABG Total CO2 ABG O2 Saturation ABG Base Excess ABG Potassium VBG pH VBG pCO2 VBG HCO3 VBG Total CO2 VBG O2 Sat (Calc) VBG Base Excess VBG Potassium Sodium Chloride Glucose Lactate FiO2 Potassium Carbon Dioxide Anion Gap BUN Creatinine Est GFR ( Amer) Est GFR (Non-Af Amer) POC Glucose (mg/dL) Random Glucose Hemoglobin A1c Calcium Phosphorus Magnesium Total Bilirubin AST ALT Alkaline Phosphatase Total Creatine Kinase Total Protein Albumin Globulin Albumin/Globulin Ratio Arterial Blood Potassium Venous Blood Potassium Urine Color Yellow Urine Appearance Clear Urine pH 6.5 Ur Specific [place] 1.020 Urine Protein >=300 H Urine Glucose (UA) >=1000 Urine Ketones 40 H Urine Blood Moderate H Urine Nitrate Negative Urine Bilirubin Negative Urine Urobilinogen 0.2 Ur Leukocyte Esterase Negative Urine RBC 15 - 20 Urine WBC 2 - 5 Ur Epithelial Cells 6 - 8 Amorphous Sediment Trace Urine Bacteria Trace Urine Osmolality 597 Ur Random Creatinine 25 Ur Random Sodium 56 Ur Random Potassium 27.3 Urine HCG, Qual Negative Urine Opiates Screen Negative Urine Methadone Screen Negative Ur Barbiturates Screen Negative Ur Phencyclidine Scrn Negative Ur Amphetamines Screen Negative U Benzodiazepines Scrn Positive H U Oth Cocaine Metabols Negative U Cannabinoids Screen Negative 01/27/17 01/27/17 01/27/17 21:22 22:24 22:59 WBC RBC Hgb Hct MCV MCH MCHC RDW Plt Count MPV pCO2 pO2 47 HCO3 ABG pH ABG Total CO2 ABG O2 Saturation ABG Base Excess ABG Potassium VBG pH 7.38 VBG pCO2 54.0 VBG HCO3 31.9 H VBG Total CO2 33.6 H VBG O2 Sat (Calc) 84.4 H VBG Base Excess 5.3 H VBG Potassium 3.5 L Sodium 138.0 Chloride 98.0 Glucose 248 H Lactate 3.9 H FiO2 21.0 Potassium Carbon Dioxide Anion Gap BUN Creatinine Est GFR ( Amer) Est GFR (Non-Af Amer) POC Glucose (mg/dL) 295 H 243 H Random Glucose Hemoglobin A1c Calcium Phosphorus Magnesium Total Bilirubin AST ALT Alkaline Phosphatase Total Creatine Kinase Total Protein Albumin Globulin Albumin/Globulin Ratio Arterial Blood Potassium Venous Blood Potassium 3.5 L Urine Color Urine Appearance Urine pH Ur Specific [place] Urine Protein Urine Glucose (UA) Urine Ketones Urine Blood Urine Nitrate Urine Bilirubin Urine Urobilinogen Ur Leukocyte Esterase Urine RBC Urine WBC Ur Epithelial Cells Amorphous Sediment Urine Bacteria Urine Osmolality Ur Random Creatinine Ur Random Sodium Ur Random Potassium Urine HCG, Qual Urine Opiates Screen Urine Methadone Screen Ur Barbiturates Screen Ur Phencyclidine Scrn Ur Amphetamines Screen U Benzodiazepines Scrn U Oth Cocaine Metabols U Cannabinoids Screen 01/28/17 01/28/17 01/28/17 00:02 00:45 00:45 WBC RBC Hgb Hct MCV MCH MCHC RDW Plt Count MPV pCO2 pO2 29 L HCO3 ABG pH ABG Total CO2 ABG O2 Saturation ABG Base Excess ABG Potassium VBG pH 7.35 VBG pCO2 61.0 H VBG HCO3 33.7 H VBG Total CO2 35.6 H VBG O2 Sat (Calc) 59.9 VBG Base Excess 6.1 H VBG Potassium 3.5 L Sodium 137 138.0 Chloride 94 L 98.0 Glucose 199 H Lactate 3.1 H FiO2 21.0 Potassium 3.6 Carbon Dioxide 32 Anion Gap 15 BUN 30 H Creatinine 1.0 Est GFR ( Amer) > 60 Est GFR (Non-Af Amer) 57 POC Glucose (mg/dL) 241 H Random Glucose 196 H Hemoglobin A1c Calcium 8.6 Phosphorus 3.7 Magnesium 1.5 L Total Bilirubin AST ALT Alkaline Phosphatase Total Creatine Kinase Total Protein Albumin Globulin Albumin/Globulin Ratio Arterial Blood Potassium Venous Blood Potassium 3.5 L Urine Color Urine Appearance Urine pH Ur Specific [place] Urine Protein Urine Glucose (UA) Urine Ketones Urine Blood Urine Nitrate Urine Bilirubin Urine Urobilinogen Ur Leukocyte Esterase Urine RBC Urine WBC Ur Epithelial Cells Amorphous Sediment Urine Bacteria Urine Osmolality Ur Random Creatinine Ur Random Sodium Ur Random Potassium Urine HCG, Qual Urine Opiates Screen Urine Methadone Screen Ur Barbiturates Screen Ur Phencyclidine Scrn Ur Amphetamines Screen U Benzodiazepines Scrn U Oth Cocaine Metabols U Cannabinoids Screen 01/28/17 01/28/17 01/28/17 01:16 01:55 03:05 WBC RBC Hgb Hct MCV MCH MCHC RDW Plt Count MPV pCO2 pO2 HCO3 ABG pH ABG Total CO2 ABG O2 Saturation ABG Base Excess ABG Potassium VBG pH VBG pCO2 VBG HCO3 VBG Total CO2 VBG O2 Sat (Calc) VBG Base Excess VBG Potassium Sodium Chloride Glucose Lactate FiO2 Potassium Carbon Dioxide Anion Gap BUN Creatinine Est GFR ( Amer) Est GFR (Non-Af Amer) POC Glucose (mg/dL) 171 H 137 H 94 Random Glucose Hemoglobin A1c Calcium Phosphorus Magnesium Total Bilirubin AST ALT Alkaline Phosphatase Total Creatine Kinase Total Protein Albumin Globulin Albumin/Globulin Ratio Arterial Blood Potassium Venous Blood Potassium Urine Color Urine Appearance Urine pH Ur Specific [place] Urine Protein Urine Glucose (UA) Urine Ketones Urine Blood Urine Nitrate Urine Bilirubin Urine Urobilinogen Ur Leukocyte Esterase Urine RBC Urine WBC Ur Epithelial Cells Amorphous Sediment Urine Bacteria Urine Osmolality Ur Random Creatinine Ur Random Sodium Ur Random Potassium Urine HCG, Qual Urine Opiates Screen Urine Methadone Screen Ur Barbiturates Screen Ur Phencyclidine Scrn Ur Amphetamines Screen U Benzodiazepines Scrn U Oth Cocaine Metabols U Cannabinoids Screen 01/28/17 01/28/17 01/28/17 04:02 05:08 06:01 WBC RBC Hgb Hct MCV MCH MCHC RDW Plt Count MPV pCO2 pO2 HCO3 ABG pH ABG Total CO2 ABG O2 Saturation ABG Base Excess ABG Potassium VBG pH VBG pCO2 VBG HCO3 VBG Total CO2 VBG O2 Sat (Calc) VBG Base Excess VBG Potassium Sodium Chloride Glucose Lactate FiO2 Potassium Carbon Dioxide Anion Gap BUN Creatinine Est GFR ( Amer) Est GFR (Non-Af Amer) POC Glucose (mg/dL) 107 114 H 127 H Random Glucose Hemoglobin A1c Calcium Phosphorus Magnesium Total Bilirubin AST ALT Alkaline Phosphatase Total Creatine Kinase Total Protein Albumin Globulin Albumin/Globulin Ratio Arterial Blood Potassium Venous Blood Potassium Urine Color Urine Appearance Urine pH Ur Specific [place] Urine Protein Urine Glucose (UA) Urine Ketones Urine Blood Urine Nitrate Urine Bilirubin Urine Urobilinogen Ur Leukocyte Esterase Urine RBC Urine WBC Ur Epithelial Cells Amorphous Sediment Urine Bacteria Urine Osmolality Ur Random Creatinine Ur Random Sodium Ur Random Potassium Urine HCG, Qual Urine Opiates Screen Urine Methadone Screen Ur Barbiturates Screen Ur Phencyclidine Scrn Ur Amphetamines Screen U Benzodiazepines Scrn U Oth Cocaine Metabols U Cannabinoids Screen 01/28/17 01/28/17 01/28/17 06:05 06:05 06:05 WBC 13.2 H D RBC 4.22 Hgb 11.6 L Hct 33.8 L MCV 80.1 MCH 27.5 MCHC 34.3 RDW 13.7 Plt Count 249 MPV 10.1 pCO2 pO2 HCO3 ABG pH ABG Total CO2 ABG O2 Saturation ABG Base Excess ABG Potassium VBG pH VBG pCO2 VBG HCO3 VBG Total CO2 VBG O2 Sat (Calc) VBG Base Excess VBG Potassium Sodium 139 Chloride 100 Glucose Lactate FiO2 Potassium 3.8 Carbon Dioxide 29 Anion Gap 14 BUN 31 H Creatinine 1.0 Est GFR ( Amer) > 60 Est GFR (Non-Af Amer) 57 POC Glucose (mg/dL) Random Glucose 103 Hemoglobin A1c 10.7 H Calcium 8.4 Phosphorus 3.6 Magnesium 1.8 Total Bilirubin 0.3 AST 26 ALT 24 Alkaline Phosphatase 84 Total Creatine Kinase 43 Total Protein 5.7 L Albumin 3.2 Globulin 2.5 Albumin/Globulin Ratio 1.3 Arterial Blood Potassium Venous Blood Potassium Urine Color Urine Appearance Urine pH Ur Specific [place] Urine Protein Urine Glucose (UA) Urine Ketones Urine Blood Urine Nitrate Urine Bilirubin Urine Urobilinogen Ur Leukocyte Esterase Urine RBC Urine WBC Ur Epithelial Cells Amorphous Sediment Urine Bacteria Urine Osmolality Ur Random Creatinine Ur Random Sodium Ur Random Potassium Urine HCG, Qual Urine Opiates Screen Urine Methadone Screen Ur Barbiturates Screen Ur Phencyclidine Scrn Ur Amphetamines Screen U Benzodiazepines Scrn U Oth Cocaine Metabols U Cannabinoids Screen 08/31/17 08/31/17 08/31/17 06:05 06:57 09:30 WBC RBC Hgb Hct MCV MCH MCHC RDW Plt Count MPV pCO2 pO2 94 H HCO3 ABG pH ABG Total CO2 ABG O2 Saturation ABG Base Excess ABG Potassium VBG pH 7.30 L VBG pCO2 66.0 H* VBG HCO3 32.5 H VBG Total CO2 34.5 H VBG O2 Sat (Calc) 95.6 H VBG Base Excess 4.3 H VBG Potassium 3.8 Sodium 138.0 139 Chloride 101.0 101 Glucose 106 H Lactate 2.2 H FiO2 21.0 Potassium 4.0 Carbon Dioxide 29 Anion Gap 13 BUN 25 H Creatinine 0.9 Est GFR ( Amer) > 60 Est GFR (Non-Af Amer) > 60 POC Glucose (mg/dL) 111 H Random Glucose 98 Hemoglobin A1c Calcium 8.7 Phosphorus 3.1 Magnesium 1.8 Total Bilirubin AST ALT Alkaline Phosphatase Total Creatine Kinase Total Protein Albumin Globulin Albumin/Globulin Ratio Arterial Blood Potassium Venous Blood Potassium 3.8 Urine Color Urine Appearance Urine pH Ur Specific [place] Urine Protein Urine Glucose (UA) Urine Ketones Urine Blood Urine Nitrate Urine Bilirubin Urine Urobilinogen Ur Leukocyte Esterase Urine RBC Urine WBC Ur Epithelial Cells Amorphous Sediment Urine Bacteria Urine Osmolality Ur Random Creatinine Ur Random Sodium Ur Random Potassium Urine HCG, Qual Urine Opiates Screen Urine Methadone Screen Ur Barbiturates Screen Ur Phencyclidine Scrn Ur Amphetamines Screen U Benzodiazepines Scrn U Oth Cocaine Metabols U Cannabinoids Screen 01/28/17 10:58 WBC RBC Hgb Hct MCV MCH MCHC RDW Plt Count MPV pCO2 34 L pO2 128.0 H HCO3 26.5 ABG pH 7.50 H ABG Total CO2 27.5 ABG O2 Saturation 96.6 ABG Base Excess 3.6 H ABG Potassium 3.7 VBG pH VBG pCO2 VBG HCO3 VBG Total CO2 VBG O2 Sat (Calc) VBG Base Excess VBG Potassium Sodium 138.0 Chloride 105.0 Glucose 91 Lactate 1.1 FiO2 28.0 Potassium Carbon Dioxide Anion Gap BUN Creatinine Est GFR ( Amer) Est GFR (Non-Af Amer) POC Glucose (mg/dL) Random Glucose Hemoglobin A1c Calcium Phosphorus Magnesium Total Bilirubin AST ALT Alkaline Phosphatase Total Creatine Kinase Total Protein Albumin Globulin Albumin/Globulin Ratio Arterial Blood Potassium 3.7 Venous Blood Potassium Urine Color Urine Appearance Urine pH Ur Specific [place] Urine Protein Urine Glucose (UA) Urine Ketones Urine Blood Urine Nitrate Urine Bilirubin Urine Urobilinogen Ur Leukocyte Esterase Urine RBC Urine WBC Ur Epithelial Cells Amorphous Sediment Urine Bacteria Urine Osmolality Ur Random Creatinine Ur Random Sodium Ur Random Potassium Urine HCG, Qual Urine Opiates Screen Urine Methadone Screen Ur Barbiturates Screen Ur Phencyclidine Scrn Ur Amphetamines Screen U Benzodiazepines Scrn U Oth Cocaine Metabols U Cannabinoids Screen Assessment & Plan - Assessment and Plan (Free Text) Assessment: 56F with pmh of DM, gastroparesis, multiple TIAs orthostatic hypotension, esophagitis presents to the ED and found to be in DKA now resolved. Severe epigastric abdominal pain likely 2/2 gastroparesis worsening in the setting of DKA. - Strongly consider discontinuing Reglan due to possible a/e and prolonged usage - Cont Protonix 40mg daily - Recommend starting Miralax 17g daily titrated to 1-2 BMs daily - Gastric Emptying study may be beneficial as outpt - Consistent carb diet and 6 small meals - Reinforce adherence to medical therapy for DM - Critical management as per ICU Case and plan was reviewed and discussed in detail with GI team
--- NOTE | 2017-01-28 13:43 | CP.PCM.CON ---
History of Present Illness - History of Present Illness History of Present Illness: Mrs. Monaco is a 56-year-old woman with a past medical history of uncontrolled DM , previous ischemic stroke (treated with tPA), TIAs, autonomic instability and multiple other medical co-morbidities who was found by her daughter incontinent and unconscious. EMS arrived and found her BP to be 70/30 mm Hg, and serum glucose was over 500. She was treated for DKA and resuscitated. Currently, she is back to baseline. Her daughter states that her mother seemed weaker on the left side and did not have any tongue biting or shaking movements. Review of Systems - Review of Systems All systems: reviewed and no additional remarkable complaints except Past Patient History - Infectious Disease Hx of Infectious Diseases: None - Past Social History Smoking Status: Never Smoked - CARDIAC Hx Hypertension: Yes - PULMONARY Hx Respiratory Disorders: No - NEUROLOGICAL HX Cerebrovascular Accident: Yes (TIA) - HEENT Hx HEENT Problems: (reading glasses) Hx Cataracts: Yes (bilateral sx) - RENAL Hx Chronic Kidney Disease: No - ENDOCRINE/METABOLIC Hx Diabetes Mellitus Type 1: Yes - HEMATOLOGICAL/ONCOLOGICAL Hx Blood Transfusions: Yes Hx Blood Transfusion Reaction: No - INTEGUMENTARY Other/Comment: 10 wilbert to back of head - MUSCULOSKELETAL/RHEUMATOLOGICAL Hx Falls: Yes (past) - GASTROINTESTINAL Hx Gastroesophageal Reflux: Yes (had endo; lesions in the esophagus) Other/Comment: Diabetic Gastroparesis - GENITOURINARY/GYNECOLOGICAL Hx Genitourinary Disorders: No - PSYCHIATRIC Hx Psychophysiologic Disorder: Yes Hx Depression: Yes Hx Substance Use: No - SURGICAL HISTORY Other/Comment: Amputation of half the Rt. foot. - ANESTHESIA Hx Anesthesia: Yes Hx Anesthesia Reactions: No Hx Malignant Hyperthermia: No Meds Allergies/Adverse Reactions: Allergies Allergy/AdvReac Type Severity Reaction Status Date / Time No Known Allergies Allergy Verified 01/27/17 18:33 - Medications Medications: Current Medications Acetaminophen (Tylenol 325mg Tab) 650 mg PO Q6H PRN PRN Reason: Pain, moderate (4-7) Last Admin: 01/28/17 07:53 Dose: 650 mg Aspirin (Ecotrin) 81 mg PO DAILY [facility] Last Admin: 01/28/17 09:20 Dose: 81 mg Duloxetine HCl (Cymbalta) 60 mg PO DAILY [facility] Last Admin: 01/28/17 09:17 Dose: 60 mg Potassium Chloride/Dextrose/Sod Cl (Potassium Chl 30 Meq In D5-1/2ns) 1,000 mls @ 200 mls/hr IV .Q5H [facility] Last Admin: 01/28/17 11:43 Dose: 200 mls/hr Insulin Detemir (Levemir) 10 unit SC Q12 [facility] Last Admin: 01/28/17 09:21 Dose: Not Given Insulin Human Regular (Humulin R Low) 0 units SC ACHS PATTI PRN Reason: Protocol Last Admin: 01/28/17 11:46 Dose: Not Given Lisinopril (Zestril) 5 mg PO DAILY [facility] Last Admin: 01/28/17 11:11 Dose: 5 mg Metoclopramide HCl (Reglan) 5 mg PO BID [facility] Last Admin: 01/28/17 09:20 Dose: 5 mg Pantoprazole Sodium (Protonix Inj) 40 mg IVP Q12 [facility] Last Admin: 01/28/17 11:12 Dose: 40 mg Tramadol HCl (Ultram) 100 mg PO Q6H PRN PRN Reason: pain Last Admin: 01/28/17 11:44 Dose: 100 mg Physical Exam - Constitutional Appears: Chronically Ill - Head Exam Head Exam: ATRAUMATIC, NORMAL INSPECTION, NORMOCEPHALIC - Eye Exam Eye Exam: EOMI, Normal appearance, PERRL - ENT Exam ENT Exam: Mucous Membranes Moist, Normal Exam - Neck Exam Neck exam: Positive for: Normal Inspection - Respiratory Exam Respiratory Exam: Clear to Auscultation Bilateral, NORMAL BREATHING PATTERN - Cardiovascular Exam Cardiovascular Exam: REGULAR RHYTHM, +S1, +S2 - GI/Abdominal Exam GI & Abdominal Exam: Normal Bowel Sounds, Soft. absent: Tenderness - Rectal Exam Rectal Exam: Deferred - Extremities Exam Extremities exam: Positive for: normal inspection - Back Exam Back exam: NORMAL INSPECTION - Neurological Exam Neurological exam: CN II-XII Intact, Oriented x3, Reflexes Normal - Expanded Neurological Exam Expanded Patient oriented to: person, place, time Cranial nerves: EOM's Intact: Normal, Facial Palsey w/Forehead Movement: Normal , Facial Sensation: Normal Ataxia: No Cerebellar Function: Finger to Nose: Normal, Heel to Champion: Normal Upper motor neuron: Babinski Sign: Normal Sensory exam: Lower Extremity Light Touch: Normal, Lower Extremity Pin Prick: Normal, Upper Extremity Light Touch: Normal, Upper Extremity Pin Prick: Normal Neuro motor strength exam: Left Upper Extremity: 4, Right Upper Extremity: 4, Left Lower Extremity: 4, Right Lower Extremity: 4 DTR: Achilles Tendon Left: 2+, Achilles Tendon Right: 2+, Bicep Left: 2+, Bicep Right: 2+, Brachioradialis Left: 2+, Brachioradialis Right: 2+, Patellar Left: 2 +, Patellar Right: 2+, Tricep Left: 2+, Tricep Right: 2+ - Psychiatric Exam Psychiatric exam: Normal Affect, Normal Mood - Skin Skin Exam: Dry, Intact, Normal Color, Warm Results - Vital Signs Recent Vital Signs: Last Vital Signs Temp 98.3 F 01/28/17 12:00 Pulse 86 01/28/17 12:20 Resp 7 L 01/28/17 12:20 BP 167/91 H 01/28/17 12:00 Pulse Ox 99 01/28/17 12:20 - Labs Result Diagrams: 01/28/17 06:05 01/28/17 09:30 Labs: Laboratory Results - last 24 hr 01/27/17 01/27/17 01/27/17 20:40 20:40 20:40 WBC RBC Hgb Hct MCV MCH MCHC RDW Plt Count MPV pCO2 pO2 HCO3 ABG pH ABG Total CO2 ABG O2 Saturation ABG Base Excess ABG Potassium VBG pH VBG pCO2 VBG HCO3 VBG Total CO2 VBG O2 Sat (Calc) VBG Base Excess VBG Potassium Sodium Chloride Glucose Lactate FiO2 Potassium Carbon Dioxide Anion Gap BUN Creatinine Est GFR ( Amer) Est GFR (Non-Af Amer) POC Glucose (mg/dL) Random Glucose Hemoglobin A1c Calcium Phosphorus Magnesium Total Bilirubin AST ALT Alkaline Phosphatase Total Creatine Kinase Total Protein Albumin Globulin Albumin/Globulin Ratio Arterial Blood Potassium Venous Blood Potassium Urine Color Yellow Urine Appearance Clear Urine pH 6.5 Ur Specific [place] 1.020 Urine Protein >=300 H Urine Glucose (UA) >=1000 Urine Ketones 40 H Urine Blood Moderate H Urine Nitrate Negative Urine Bilirubin Negative Urine Urobilinogen 0.2 Ur Leukocyte Esterase Negative Urine RBC 15 - 20 Urine WBC 2 - 5 Ur Epithelial Cells 6 - 8 Amorphous Sediment Trace Urine Bacteria Trace Urine Osmolality 597 Ur Random Creatinine 25 Ur Random Sodium 56 Ur Random Potassium 27.3 Urine HCG, Qual Negative Urine Opiates Screen Negative Urine Methadone Screen Negative Ur Barbiturates Screen Negative Ur Phencyclidine Scrn Negative Ur Amphetamines Screen Negative U Benzodiazepines Scrn Positive H U Oth Cocaine Metabols Negative U Cannabinoids Screen Negative 01/27/17 01/27/17 01/27/17 21:22 22:24 22:59 WBC RBC Hgb Hct MCV MCH MCHC RDW Plt Count MPV pCO2 pO2 47 HCO3 ABG pH ABG Total CO2 ABG O2 Saturation ABG Base Excess ABG Potassium VBG pH 7.38 VBG pCO2 54.0 VBG HCO3 31.9 H VBG Total CO2 33.6 H VBG O2 Sat (Calc) 84.4 H VBG Base Excess 5.3 H VBG Potassium 3.5 L Sodium 138.0 Chloride 98.0 Glucose 248 H Lactate 3.9 H FiO2 21.0 Potassium Carbon Dioxide Anion Gap BUN Creatinine Est GFR ( Amer) Est GFR (Non-Af Amer) POC Glucose (mg/dL) 295 H 243 H Random Glucose Hemoglobin A1c Calcium Phosphorus Magnesium Total Bilirubin AST ALT Alkaline Phosphatase Total Creatine Kinase Total Protein Albumin Globulin Albumin/Globulin Ratio Arterial Blood Potassium Venous Blood Potassium 3.5 L Urine Color Urine Appearance Urine pH Ur Specific [place] Urine Protein Urine Glucose (UA) Urine Ketones Urine Blood Urine Nitrate Urine Bilirubin Urine Urobilinogen Ur Leukocyte Esterase Urine RBC Urine WBC Ur Epithelial Cells Amorphous Sediment Urine Bacteria Urine Osmolality Ur Random Creatinine Ur Random Sodium Ur Random Potassium Urine HCG, Qual Urine Opiates Screen Urine Methadone Screen Ur Barbiturates Screen Ur Phencyclidine Scrn Ur Amphetamines Screen U Benzodiazepines Scrn U Oth Cocaine Metabols U Cannabinoids Screen 01/28/17 01/28/17 01/28/17 00:02 00:45 00:45 WBC RBC Hgb Hct MCV MCH MCHC RDW Plt Count MPV pCO2 pO2 29 L HCO3 ABG pH ABG Total CO2 ABG O2 Saturation ABG Base Excess ABG Potassium VBG pH 7.35 VBG pCO2 61.0 H VBG HCO3 33.7 H VBG Total CO2 35.6 H VBG O2 Sat (Calc) 59.9 VBG Base Excess 6.1 H VBG Potassium 3.5 L Sodium 137 138.0 Chloride 94 L 98.0 Glucose 199 H Lactate 3.1 H FiO2 21.0 Potassium 3.6 Carbon Dioxide 32 Anion Gap 15 BUN 30 H Creatinine 1.0 Est GFR ( Amer) > 60 Est GFR (Non-Af Amer) 57 POC Glucose (mg/dL) 241 H Random Glucose 196 H Hemoglobin A1c Calcium 8.6 Phosphorus 3.7 Magnesium 1.5 L Total Bilirubin AST ALT Alkaline Phosphatase Total Creatine Kinase Total Protein Albumin Globulin Albumin/Globulin Ratio Arterial Blood Potassium Venous Blood Potassium 3.5 L Urine Color Urine Appearance Urine pH Ur Specific [place] Urine Protein Urine Glucose (UA) Urine Ketones Urine Blood Urine Nitrate Urine Bilirubin Urine Urobilinogen Ur Leukocyte Esterase Urine RBC Urine WBC Ur Epithelial Cells Amorphous Sediment Urine Bacteria Urine Osmolality Ur Random Creatinine Ur Random Sodium Ur Random Potassium Urine HCG, Qual Urine Opiates Screen Urine Methadone Screen Ur Barbiturates Screen Ur Phencyclidine Scrn Ur Amphetamines Screen U Benzodiazepines Scrn U Oth Cocaine Metabols U Cannabinoids Screen 01/28/17 01/28/17 01/28/17 01:16 01:55 03:05 WBC RBC Hgb Hct MCV MCH MCHC RDW Plt Count MPV pCO2 pO2 HCO3 ABG pH ABG Total CO2 ABG O2 Saturation ABG Base Excess ABG Potassium VBG pH VBG pCO2 VBG HCO3 VBG Total CO2 VBG O2 Sat (Calc) VBG Base Excess VBG Potassium Sodium Chloride Glucose Lactate FiO2 Potassium Carbon Dioxide Anion Gap BUN Creatinine Est GFR ( Amer) Est GFR (Non-Af Amer) POC Glucose (mg/dL) 171 H 137 H 94 Random Glucose Hemoglobin A1c Calcium Phosphorus Magnesium Total Bilirubin AST ALT Alkaline Phosphatase Total Creatine Kinase Total Protein Albumin Globulin Albumin/Globulin Ratio Arterial Blood Potassium Venous Blood Potassium Urine Color Urine Appearance Urine pH Ur Specific [place] Urine Protein Urine Glucose (UA) Urine Ketones Urine Blood Urine Nitrate Urine Bilirubin Urine Urobilinogen Ur Leukocyte Esterase Urine RBC Urine WBC Ur Epithelial Cells Amorphous Sediment Urine Bacteria Urine Osmolality Ur Random Creatinine Ur Random Sodium Ur Random Potassium Urine HCG, Qual Urine Opiates Screen Urine Methadone Screen Ur Barbiturates Screen Ur Phencyclidine Scrn Ur Amphetamines Screen U Benzodiazepines Scrn U Oth Cocaine Metabols U Cannabinoids Screen 01/28/17 01/28/17 01/28/17 04:02 05:08 06:01 WBC RBC Hgb Hct MCV MCH MCHC RDW Plt Count MPV pCO2 pO2 HCO3 ABG pH ABG Total CO2 ABG O2 Saturation ABG Base Excess ABG Potassium VBG pH VBG pCO2 VBG HCO3 VBG Total CO2 VBG O2 Sat (Calc) VBG Base Excess VBG Potassium Sodium Chloride Glucose Lactate FiO2 Potassium Carbon Dioxide Anion Gap BUN Creatinine Est GFR ( Amer) Est GFR (Non-Af Amer) POC Glucose (mg/dL) 107 114 H 127 H Random Glucose Hemoglobin A1c Calcium Phosphorus Magnesium Total Bilirubin AST ALT Alkaline Phosphatase Total Creatine Kinase Total Protein Albumin Globulin Albumin/Globulin Ratio Arterial Blood Potassium Venous Blood Potassium Urine Color Urine Appearance Urine pH Ur Specific [place] Urine Protein Urine Glucose (UA) Urine Ketones Urine Blood Urine Nitrate Urine Bilirubin Urine Urobilinogen Ur Leukocyte Esterase Urine RBC Urine WBC Ur Epithelial Cells Amorphous Sediment Urine Bacteria Urine Osmolality Ur Random Creatinine Ur Random Sodium Ur Random Potassium Urine HCG, Qual Urine Opiates Screen Urine Methadone Screen Ur Barbiturates Screen Ur Phencyclidine Scrn Ur Amphetamines Screen U Benzodiazepines Scrn U Oth Cocaine Metabols U Cannabinoids Screen 01/28/17 01/28/17 01/28/17 06:05 06:05 06:05 WBC 13.2 H D RBC 4.22 Hgb 11.6 L Hct 33.8 L MCV 80.1 MCH 27.5 MCHC 34.3 RDW 13.7 Plt Count 249 MPV 10.1 pCO2 pO2 HCO3 ABG pH ABG Total CO2 ABG O2 Saturation ABG Base Excess ABG Potassium VBG pH VBG pCO2 VBG HCO3 VBG Total CO2 VBG O2 Sat (Calc) VBG Base Excess VBG Potassium Sodium 139 Chloride 100 Glucose Lactate FiO2 Potassium 3.8 Carbon Dioxide 29 Anion Gap 14 BUN 31 H Creatinine 1.0 Est GFR ( Amer) > 60 Est GFR (Non-Af Amer) 57 POC Glucose (mg/dL) Random Glucose 103 Hemoglobin A1c 10.7 H Calcium 8.4 Phosphorus 3.6 Magnesium 1.8 Total Bilirubin 0.3 AST 26 ALT 24 Alkaline Phosphatase 84 Total Creatine Kinase 43 Total Protein 5.7 L Albumin 3.2 Globulin 2.5 Albumin/Globulin Ratio 1.3 Arterial Blood Potassium Venous Blood Potassium Urine Color Urine Appearance Urine pH Ur Specific [place] Urine Protein Urine Glucose (UA) Urine Ketones Urine Blood Urine Nitrate Urine Bilirubin Urine Urobilinogen Ur Leukocyte Esterase Urine RBC Urine WBC Ur Epithelial Cells Amorphous Sediment Urine Bacteria Urine Osmolality Ur Random Creatinine Ur Random Sodium Ur Random Potassium Urine HCG, Qual Urine Opiates Screen Urine Methadone Screen Ur Barbiturates Screen Ur Phencyclidine Scrn Ur Amphetamines Screen U Benzodiazepines Scrn U Oth Cocaine Metabols U Cannabinoids Screen 01/28/17 01/28/17 01/28/17 06:05 06:57 09:30 WBC RBC Hgb Hct MCV MCH MCHC RDW Plt Count MPV pCO2 pO2 94 H HCO3 ABG pH ABG Total CO2 ABG O2 Saturation ABG Base Excess ABG Potassium VBG pH 7.30 L VBG pCO2 66.0 H* VBG HCO3 32.5 H VBG Total CO2 34.5 H VBG O2 Sat (Calc) 95.6 H VBG Base Excess 4.3 H VBG Potassium 3.8 Sodium 138.0 139 Chloride 101.0 101 Glucose 106 H Lactate 2.2 H FiO2 21.0 Potassium 4.0 Carbon Dioxide 29 Anion Gap 13 BUN 25 H Creatinine 0.9 Est GFR ( Amer) > 60 Est GFR (Non-Af Amer) > 60 POC Glucose (mg/dL) 111 H Random Glucose 98 Hemoglobin A1c Calcium 8.7 Phosphorus 3.1 Magnesium 1.8 Total Bilirubin AST ALT Alkaline Phosphatase Total Creatine Kinase Total Protein Albumin Globulin Albumin/Globulin Ratio Arterial Blood Potassium Venous Blood Potassium 3.8 Urine Color Urine Appearance Urine pH Ur Specific [place] Urine Protein Urine Glucose (UA) Urine Ketones Urine Blood Urine Nitrate Urine Bilirubin Urine Urobilinogen Ur Leukocyte Esterase Urine RBC Urine WBC Ur Epithelial Cells Amorphous Sediment Urine Bacteria Urine Osmolality Ur Random Creatinine Ur Random Sodium Ur Random Potassium Urine HCG, Qual Urine Opiates Screen Urine Methadone Screen Ur Barbiturates Screen Ur Phencyclidine Scrn Ur Amphetamines Screen U Benzodiazepines Scrn U Oth Cocaine Metabols U Cannabinoids Screen 01/28/17 10:58 WBC RBC Hgb Hct MCV MCH MCHC RDW Plt Count MPV pCO2 34 L pO2 128.0 H HCO3 26.5 ABG pH 7.50 H ABG Total CO2 27.5 ABG O2 Saturation 96.6 ABG Base Excess 3.6 H ABG Potassium 3.7 VBG pH VBG pCO2 VBG HCO3 VBG Total CO2 VBG O2 Sat (Calc) VBG Base Excess VBG Potassium Sodium 138.0 Chloride 105.0 Glucose 91 Lactate 1.1 FiO2 28.0 Potassium Carbon Dioxide Anion Gap BUN Creatinine Est GFR ( Amer) Est GFR (Non-Af Amer) POC Glucose (mg/dL) Random Glucose Hemoglobin A1c Calcium Phosphorus Magnesium Total Bilirubin AST ALT Alkaline Phosphatase Total Creatine Kinase Total Protein Albumin Globulin Albumin/Globulin Ratio Arterial Blood Potassium 3.7 Venous Blood Potassium Urine Color Urine Appearance Urine pH Ur Specific [place] Urine Protein Urine Glucose (UA) Urine Ketones Urine Blood Urine Nitrate Urine Bilirubin Urine Urobilinogen Ur Leukocyte Esterase Urine RBC Urine WBC Ur Epithelial Cells Amorphous Sediment Urine Bacteria Urine Osmolality Ur Random Creatinine Ur Random Sodium Ur Random Potassium Urine HCG, Qual Urine Opiates Screen Urine Methadone Screen Ur Barbiturates Screen Ur Phencyclidine Scrn Ur Amphetamines Screen U Benzodiazepines Scrn U Oth Cocaine Metabols U Cannabinoids Screen Assessment & Plan (1) Syncope Assessment and Plan: The patient had multiple metabolic abnormalities, and was hypotensive. This could be the cause of her syncope and bowel incontinence is not unexpected. However, the left side weakness that resolved along with the subsequent confusion should be further evaluated for possible cerebral ischemia or occult seizures. I recommend the followin. Continue telemetry 2. MRI of the brain and MRA of the head/neck without contrast. 3. Continue aspirin 81 mg daily 4. PT/OT eval 5. EEG awake and drowsy for one hour 6. DVT Px 7. Fluid resuscitation Thank you. Status: Acute Priority: High
[2017-01-28 14:31] LABS: BLOOD UREA NITROGEN 18 mg/dL (7-21); CALCIUM 8.7 mg/dL (8.4-10.5); CARBON DIOXIDE 27 mmol/L (21-33); CHLORIDE 103 mmol/L (98-107); GFR AFRICAN-AMERICAN > 60; GLUCOSE,RANDOM 91 mg/dL (70-110); MAGNESIUM 1.8 mg/dL (1.7-2.2); PHOSPHOROUS 2.5 mg/dL (2.5-4.5); POTASSIUM 3.9 mmol/L (3.6-5.0); SODIUM 138 mmol/L (132-148)
--- NOTE | 2017-01-28 15:26 | PN ---
DATE: 01/27/2017 SUBJECTIVE: I saw her in the intensive care unit. She was a Code Sepsis. She is resting comfortably in the intensive care unit. She slept fairly well. Feeling better than when she came in. She came in unresponsive. She is talking. She understands what is going on right now, but with a mild appetite. No chest pain, shortness of breath or abdominal pain. She tells me she is having some shaking in her extremities, we will see what the neurologist has to say. PHYSICAL EXAMINATION: VITAL SIGNS: She has a 97.6 temperature, 76 pulse , 97/46 blood pressure, 16 respiratory rate, 100% O2 saturation. HEENT: Head is atraumatic and normocephalic. HEART: Regular rate. LUNGS: Clear to auscultation with decreased breath sounds. ABDOMEN: Soft, nontender. Positive bowel sounds. EXTREMITIES: No edema. There is some mild tremor in hands and feet which she shows me, at rest it is not there. MEDICATIONS: She is currently on Cymbalta, Ecotrin, insulin coverage, Levemir at night, potassium, ProAmatine, Protonix, Reglan, Rocephin, Tylenol, vancomycin. LABORATORY DATA: She has a 13.2 white count, came down from 18, which is very good, 11.6 hemoglobin, 33.8 is hematocrit with 249 platelets. INR is 0.99. She has 139 sodium, potassium 3.8, BUN is 31, creatinine 1, GFR is 67, sugar is 111, calcium is 8.4, phosphorus is 3.6, magnesium 1.8. Total bilirubin is 0.3, AST is 26, ALT is 24, alkaline phosphatase is 84. Troponin was 0.01. Lipase is 38. Blood sugars are down to 241, 196 which is very good. Her lactate was 6.1, it is now down to 2.2. Urine was negative for . Toxicology was positive for benzodiazepines. ASSESSMENT AND PLAN: She is being seen by the fig caprifier. She has multiple consults, Cardiology, Endocrinology, Infectious Disease and Neurology. We will continue with aggressive treatment and care. Check her labs tomorrow. Josafat Dent DO [facility] # [id number] ANIVAL
--- NOTE | 2017-01-28 16:16 | CT ---
PROCEDURE: CT Abdomen and Pelvis without intravenous contrast HISTORY: rule out intra-abdominal infection COMPARISON: None. TECHNIQUE: Without contrast.. Contrast Dose: Radiation dose: Total exam DLP = 330 mGy-cm. This CT exam was performed using one or more of the following dose reduction techniques: Automated exposure control, adjustment of the mA and/or kV according to patient size, and/or use of iterative reconstruction technique. FINDINGS: LOWER THORAX: Unremarkable. LIVER: Unremarkable. No gross lesion or ductal dilatation. GALLBLADDER AND BILE DUCTS: Gallbladder removed PANCREAS: Unremarkable. No gross lesion or ductal dilatation. SPLEEN: Unremarkable. ADRENALS: Unremarkable. No mass. KIDNEYS AND URETERS: Unremarkable. No hydronephrosis. No solid mass. VASCULATURE: Unremarkable. No aortic aneurysm. BOWEL: Unremarkable. No obstruction. No gross mural thickening. APPENDIX: Unremarkable. Normal appendix. PERITONEUM: Unremarkable. No free fluid. No free air. There is a ventral outpouching of the abdominal wall without evidence of a complete defect. LYMPH NODES: Unremarkable. No enlarged lymph nodes. BLADDER: A Wan catheter is in the bladder. REPRODUCTIVE: Unremarkable. BONES: No acute fracture. OTHER FINDINGS: None. IMPRESSION: Unremarkable non contrast enhanced CT of the abdomen and pelvis.
[2017-01-28 18:43] LABS: BLOOD UREA NITROGEN 14 mg/dL (7-21); CALCIUM 8.9 mg/dL (8.4-10.5); CARBON DIOXIDE 29 mmol/L (21-33); CHLORIDE 101 mmol/L (98-107); GFR AFRICAN-AMERICAN > 60; GLUCOSE,RANDOM 165 mg/dL (70-110); MAGNESIUM 1.8 mg/dL (1.7-2.2); PHOSPHOROUS 2.6 mg/dL (2.5-4.5); POTASSIUM 3.7 mmol/L (3.6-5.0); SODIUM 138 mmol/L (132-148)
--- NOTE | 2017-01-28 19:47 | EEG ---
DATE: 01/28/2017 CONDITION OF THE RECORDING: Drowsy. DIAGNOSES: Seizure, syncope. MEDICATIONS: Reviewed by nurse per reconciliation sheet. INTERPRETATION: This is a 16-channel international recording. Background activity is composed of 5 to 7 cycles per second. There was limited amount of beta activity of 16 to 20 cycles per second seen in this recording. There was increased amount of theta activity of 5 to 7 cycles per second seen in this tracing. Drowsiness was characterized by mixed beta and theta activities. Sleep was characterized by vertex transient waves, sleep spindles, and bilateral slowing. Photic stimulation showed no change in the tracing. There were periods of paroxysmal activity, intermittent isolated sharp waves followed by slowing waves throughout the EEG. CONCLUSION: Abnormal EEG due to presence of diffuse slowing with intermittent isolated sharp waves followed by periods of slowing consistent with epileptogenic activity. Please clinically correlate. Jose Knight MD
--- NOTE | 2017-01-28 20:12 | CON ---
DATE: 01/28/2017 HISTORY OF PRESENT ILLNESS: The patient is a 56-year-old woman who presents with epigastric discomfort. She was found to have an elevated glucose of approximately 500 on admission. PAST MEDICAL HISTORY: The patient's past medical history includes an echocardiogram which shows a normal LV function with mild pulmonary hypertension. She denies cardiac history. She denies pulmonary history. She states she does not smoke. She does suffer from hypertension. SOCIAL HISTORY: She denies smoking. REVIEW OF SYSTEMS: Was not possible given the patient's emotional state. PHYSICAL EXAMINATION: VITAL SIGNS: The blood pressure is 177/90, the heart rate is in the 90s. NECK: Negative JVD. LUNGS: Without rales. HEART: S1, S2. EXTREMITIES: Without edema. ABDOMEN: Diffusely tender. DIAGNOSTIC/LABORATORY: EKG shows normal sinus rhythm with nonspecific ST-T changes. Review of her arterial blood gases, the patient presented with pH of 736 and got down to 730 with elevated pCO2 consistent with a respiratory acidosis. The glucose is 111, hemoglobin is 11 with troponins negative x1. IMPRESSION: 1. Epigastric discomfort. 2. Diabetes and a control. 3. Hypertension. 4. No evidence for acute coronary syndrome. 5. Mild respiratory acidosis. Given these findings, there is no evidence for acute cardiac issues at this time. We will give her a trial of IV Protonix. Pain medications adjustments will be necessary. I have discussed with the broadcast operations engineer about the possibility of abdominal CT scan. Carter Farmer MD
--- NOTE | 2017-01-28 22:36 | CP.PCM.PN ---
Subjective - Date & Time of Evaluation Date of Evaluation: 01/28/17 Time of Evaluation: 22:35 - Subjective Subjective: Patient was seen at bedside. Her blood pressure was 187/104. Denies head ache, dizziness, light headedness, chest pain ,sob. ROS: Negative except as mentioned above. Medical record was reviewed. This 56 year old white woman was admitted unresponsive with hyperglycemia. Has PMH of HTN, DM II, CVA, TIA,bilateral cataract , gastroparesis, depression, amputation of right half foot. Objective - Vital Signs/Intake and Output Vital Signs (last 24 hours): Temp Pulse Resp BP Pulse Ox 97 F L 101 H 12 132/73 100 01/28/17 20:00 01/28/17 20:40 01/28/17 20:30 01/28/17 20:00 01/28/17 20:40 Intake and Output: 01/28/17 01/29/17 18:59 06:59 Intake Total 2430 Output Total 2680 Balance -250 - Medications Medications: Current Medications Acetaminophen (Tylenol 325mg Tab) 650 mg PO Q6H PRN PRN Reason: Pain, moderate (4-7) Last Admin: 01/28/17 07:53 Dose: 650 mg Aspirin (Ecotrin) 81 mg PO DAILY [facility] Last Admin: 01/28/17 09:20 Dose: 81 mg Duloxetine HCl (Cymbalta) 60 mg PO DAILY [facility] Last Admin: 01/28/17 09:17 Dose: 60 mg Insulin Detemir (Levemir) 10 unit SC Q12 [facility] Last Admin: 01/28/17 09:21 Dose: Not Given Insulin Human Regular (Humulin R Low) 0 units SC ACHS [facility] PRN Reason: Protocol Last Admin: 01/28/17 17:23 Dose: Not Given Lisinopril (Zestril) 5 mg PO DAILY [facility] Last Admin: 01/28/17 11:11 Dose: 5 mg Metoclopramide HCl (Reglan) 5 mg PO BID [facility] Last Admin: 01/28/17 17:48 Dose: 5 mg Pantoprazole Sodium (Protonix Inj) 40 mg IVP Q12 [facility] Last Admin: 01/28/17 11:12 Dose: 40 mg Tramadol HCl (Ultram) 100 mg PO Q6H PRN PRN Reason: pain Last Admin: 01/28/17 20:43 Dose: 100 mg - Labs Labs: 01/28/17 06:05 01/28/17 18:27 PT 10.7 Seconds (9.9-11.8) 01/27/17 18:34 INR 0.99 (0.93-1.08) 01/27/17 18:34 APTT 24.7 Seconds (23.7-30.8) 01/27/17 18:34 Micro Results 01/27/17 18:53 Blood Blood Culture - Preliminary NO GROWTH AFTER 24 HOURS 01/27/17 18:25 Blood Blood Culture - Preliminary NO GROWTH AFTER 24 HOURS Most Recent Lab Values WBC 13.2 10^3/ul (4.5-11.0) H D 01/28/17 06:05 RBC 4.22 10^6/uL (3.5-6.1) 01/28/17 06:05 Hgb 11.6 g/dL (12.0-16.0) L 01/28/17 06:05 Hct 33.8 % (36.0-48.0) L 01/28/17 06:05 MCV 80.1 fl (80.0-105.0) 01/28/17 06:05 MCH 27.5 pg (25.0-35.0) 01/28/17 06:05 MCHC 34.3 g/dl (31.0-37.0) 01/28/17 06:05 RDW 13.7 % (11.5-14.5) 01/28/17 06:05 Plt Count 249 10^3/uL (120.0-450.0) 01/28/17 06:05 MPV 10.1 fl (7.0-11.0) 01/28/17 06:05 Gran % 90.2 % (50.0-68.0) H 01/27/17 18:34 Lymph % (Auto) 4.7 % (22.0-35.0) L 01/27/17 18:34 [place] % (Auto) 5.0 % (1.0-6.0) 01/27/17 18:34 Eos % (Auto) 0.0 % (1.5-5.0) L 01/27/17 18:34 Baso % (Auto) 0.1 % (0.0-3.0) 01/27/17 18:34 Gran # 16.38 (1.4-6.5) H 01/27/17 18:34 Lymph # 0.9 (1.2-3.4) L 01/27/17 18:34 [place] # 0.9 (0.1-0.6) H 01/27/17 18:34 Eos # 0.0 (0.0-0.7) 01/27/17 18:34 Baso # 0.02 K/mm3 (0.0-2.0) 01/27/17 18:34 Neutrophils % (Manual) 88 % (50.0-70.0) H 01/27/17 18:34 Lymphocytes % (Manual) 7 % (22.0-35.0) L 01/27/17 18:34 Monocytes % (Manual) 5 % (1.0-6.0) 01/27/17 18:34 Toxic Granulation 2+ 01/27/17 18:34 Platelet Evaluation Normal (NORMAL) 01/27/17 18:34 Hypochromasia 1+ 01/27/17 18:34 Rouleaux 2+ 01/27/17 18:34 PT 10.7 Seconds (9.9-11.8) 01/27/17 18:34 INR 0.99 (0.93-1.08) 01/27/17 18:34 APTT 24.7 Seconds (23.7-30.8) 01/27/17 18:34 pCO2 34 mm/Hg (35-45) L 01/28/17 10:58 pO2 128.0 mm/Hg (80-100) H 01/28/17 10:58 HCO3 26.5 mmol/L (21-28) 01/28/17 10:58 ABG pH 7.50 (7.35-7.45) H 01/28/17 10:58 ABG Total CO2 27.5 mmol.L (22-28) 01/28/17 10:58 ABG O2 Saturation 96.6 % (95-98) 01/28/17 10:58 ABG Base Excess 3.6 mmol/L (-2.0-3.0) H 01/28/17 10:58 ABG Potassium 3.7 mmol/L (3.6-5.2) 01/28/17 10:58 VBG pH 7.30 (7.32-7.43) L 01/28/17 06:05 VBG pCO2 66.0 (40-60) H* 01/28/17 06:05 VBG HCO3 32.5 mmol/l (21-28) H 01/28/17 06:05 VBG Total CO2 34.5 mmol.L (22-28) H 01/28/17 06:05 VBG O2 Sat (Calc) 95.6 % (40-65) H 01/28/17 06:05 VBG Base Excess 4.3 mmol/L (0.0-2.0) H 01/28/17 06:05 VBG Potassium 3.8 mmol/L (3.6-5.2) 01/28/17 06:05 Sodium 138.0 mmol/L (132-148) 01/28/17 10:58 Chloride 105.0 mmol/L (98-107) 01/28/17 10:58 Glucose 91 mg/dl (65-105) 01/28/17 10:58 Lactate 1.1 mmol/L (0.7-2.1) 01/28/17 10:58 FiO2 28.0 % 01/28/17 10:58 Sodium 138 mmol/L (132-148) 01/28/17 18:27 Potassium 3.7 mmol/L (3.6-5.0) 01/28/17 18:27 Chloride 101 mmol/L (98-107) 01/28/17 18:27 Carbon Dioxide 29 mmol/L (21-33) 01/28/17 18:27 Anion Gap 12 (10-20) 01/28/17 18:27 BUN 14 mg/dL (7-21) 01/28/17 18:27 Creatinine 0.7 mg/dL (0.5-1.4) 01/28/17 18:27 Est GFR ( Amer) > 60 01/28/17 18:27 Est GFR (Non-Af Amer) > 60 01/28/17 18:27 POC Glucose (mg/dL) 149 mg/dL (65-110) H 01/28/17 22:39 Random Glucose 165 mg/dL (70-110) H 01/28/17 18:27 Hemoglobin A1c 10.7 % (4.2-6.5) H 01/28/17 06:05 Serum Osmolality 313 mosm/kg (271-296) H 01/27/17 18:34 Calcium 8.9 mg/dL (8.4-10.5) 01/28/17 18:27 Phosphorus 2.6 mg/dL (2.5-4.5) 01/28/17 18:27 Magnesium 1.8 mg/dL (1.7-2.2) 01/28/17 18:27 Total Bilirubin 0.3 mg/dL (0.2-1.3) 01/28/17 06:05 AST 26 U/L (15-39) 01/28/17 06:05 ALT 24 U/L (7-56) 01/28/17 06:05 Alkaline Phosphatase 84 U/L (38-133) 01/28/17 06:05 Lactate Dehydrogenase 631 U/L (333-699) 01/27/17 18:30 Total Creatine Kinase 43 U/L (35-230) 01/28/17 06:05 Troponin I 0.01 ng/mL 01/27/17 18:30 Total Protein 5.7 g/dL (5.8-8.3) L 01/28/17 06:05 Albumin 3.2 g/dL (3.0-4.8) 01/28/17 06:05 Globulin 2.5 gm/dL 01/28/17 06:05 Albumin/Globulin Ratio 1.3 (1.1-1.8) 01/28/17 06:05 Lipase 38 U/L (23-300) 01/27/17 18:34 Procalcitonin 0.42 NG/ML (0.19-0.49) 01/28/17 00:45 Arterial Blood Potassium 3.7 mmol/L (3.6-5.2) 01/28/17 10:58 Venous Blood Potassium 3.8 mmol/L (3.6-5.2) 01/28/17 06:05 Urine Color Yellow (YELLOW) 01/27/17 20:40 Urine Appearance Clear (CLEAR) 01/27/17 20:40 Urine pH 6.5 (4.7-8.0) 01/27/17 20:40 Ur Specific [place] 1.020 (1.005-1.035) 01/27/17 20:40 Urine Protein >=300 mg/dL (<30 mg/dL) H 01/27/17 20:40 Urine Glucose (UA) >=1000 mg/dL (NEGATIVE) 01/27/17 20:40 Urine Ketones 40 mg/dL (NEGATIVE) H 01/27/17 20:40 Urine Blood Moderate (NEGATIVE) H 01/27/17 20:40 Urine Nitrate Negative (NEGATIVE) 01/27/17 20:40 Urine Bilirubin Negative (NEGATIVE) 01/27/17 20:40 Urine Urobilinogen 0.2 E.U./dL (<1 E.U./dL) 01/27/17 20:40 Ur Leukocyte Esterase Negative Jennifer/uL (NEGATIVE) 01/27/17 20:40 Urine RBC 15 - 20 /hpf (0-2) 01/27/17 20:40 Urine WBC 2 - 5 /hpf (0-6) 01/27/17 20:40 Ur Epithelial Cells 6 - 8 /hpf (0-5) 01/27/17 20:40 Amorphous Sediment Trace 01/27/17 20:40 Urine Bacteria Trace (NEG) 01/27/17 20:40 Urine Osmolality 597 mosm/kg (50-645) 01/27/17 20:40 Ur Random Creatinine 25 mg/dL 01/27/17 20:40 Ur Random Sodium 56 meq/L 01/27/17 20:40 Ur Random Potassium 27.3 meq/L 01/27/17 20:40 Urine HCG, Qual Negative (NEGATIVE) 01/27/17 20:40 Urine Opiates Screen Negative (NEGATIVE) 01/27/17 20:40 Urine Methadone Screen Negative (NEGATIVE) 01/27/17 20:40 Ur Barbiturates Screen Negative (NEGATIVE) 01/27/17 20:40 Ur Phencyclidine Scrn Negative (NEGATIVE) 01/27/17 20:40 Ur Amphetamines Screen Negative (NEGATIVE) 01/27/17 20:40 U Benzodiazepines Scrn Positive (NEGATIVE) H 01/27/17 20:40 U Oth Cocaine Metabols Negative (NEGATIVE) 01/27/17 20:40 U Cannabinoids Screen Negative (NEGATIVE) 01/27/17 20:40 - Constitutional Appears: Well, No Acute Distress - Head Exam Head Exam: ATRAUMATIC, NORMAL INSPECTION, NORMOCEPHALIC - Eye Exam Eye Exam: Normal appearance - ENT Exam ENT Exam: Normal External Ear Exam - Neck Exam Neck Exam: Normal Inspection - Cardiovascular Exam Cardiovascular Exam: absent: JVD - GI/Abdominal Exam GI & Abdominal Exam: absent: Distended - Rectal Exam Rectal Exam: Deferred - Exam Additional comments: Deferred. - Extremities Exam Extremities Exam: Normal Inspection - Back Exam Back Exam: NORMAL INSPECTION - Neurological Exam Neurological Exam: Alert, Awake - Psychiatric Exam Psychiatric exam: Normal Affect - Skin Skin Exam: Normal Color Assessment and Plan - Assessment and Plan (Free Text) Assessment: Elevated blood pressure reading. Hypertension. DM II . Gastroparesis. Depression. Hx CVA/TIA. Plan: Clonidine 0.1 mg PO stat. Recheck blood pressure in one hour. Continue present management.
--- NOTE | 2017-01-29 00:12 | CON ---
DATE: 01/28/2017 ENDOCRINOLOGY CONSULT LOCATION: Room 129, ICU HISTORY OF PRESENT ILLNESS: This is a 56-year-old female with known history of type 2 insulin requiring diabetes, presenting here with altered mental status and a brief bout of unresponsiveness as per the family with supervening hyperglycemic accelerations and glucose level over 500 as noted. More over, she also had significant hypotension with a blood pressure systolic level of 70/50 as noted prior to admission and is now being deferred for endocrine evaluation and management. PAST MEDICAL HISTORY: As mentioned above. History of type 2 insulin requiring diabetes, currently on a combination of Levemir given as 32 units subcu at bedtime daily with Humalog given p.r.n. before each meal as noted. History of hypertensive cardiovascular disease and dyslipidemia. History of diabetic gastroparesis as noted. History of previous transient ischemic event with no residual weakness as noted. History of orthostatic hypotension currently on ProAmatine therapy is given. History of diabetic retinopathy and diabetic polyneuropathy currently on Cymbalta. MEDICATIONS: As stated. FAMILY HISTORY: Positive for hypertension and diabetes. SOCIAL HISTORY: The patient has supportive family. No known substance use. REVIEW OF SYSTEMS: As mentioned above. Admits to generalized body weakness with easy fatigability, tiredness, and suboptimal energy level. Also admits to episodic bouts of dizziness and lightheadedness, worse on the day of the admission. No chest pains, palpitations or PND. Her oral intake is variable with nausea, dyspepsia and vague upper abdominal pain. Also admits to occasional constipation. PHYSICAL EXAMINATION: GENERAL: This is an average built female in no apparent distress. VITAL SIGNS: Blood pressure of 140/80, pulse of 70 beats per minute regular, temperature 98, respirations 20, height is 5 feet 6 inches and weight is 138 pounds. HEENT: Head is normocephalic. Eyes; anicteric with pink conjunctivae. Funduscopy not possible at this time. Ears, nose and throat otherwise normal. NECK: Supple. Thyroid gland is normal in size. No carotid bruits or cervical adenopathy. CARDIOPULMONARY: Adynamic precordium. S1 and S2 is rapid and regular. LUNGS: Clear to auscultation. ABDOMEN: Flat and soft with positive bowel sounds. EXTREMITIES: No peripheral edema. Pulses are +2 bilaterally. LABORATORY DATA: Her chemistry showed a BUN of 30, sodium 132, potassium 3.9, chloride 88, CO2 of 27, glucose 513 and creatinine 0.9. ASSESSMENT: This is a 56-year-old female with uncontrolled and decompensated type 2 insulin requiring diabetes presenting here with extremes of glycemic fluctuation and hyperglycemic accelerations as noted with concomitant altered mental status and an apparent brief bout of unresponsiveness and currently undergoing neurologic workup at this time. PLAN: Plan of management was discussed with the patient and staff. We will continue the low dose correction scale using regular insulin as ordered as she is also n.p.o. at this time and pending GI workup as noted. We will also continue the Levemir given as 10 units subcu every 12 hours given and we will titrate incrementally as indicated. We will optimize metabolic control. We will obtain a hemoglobin A1c to control her hyperglycemic control and baseline thyroid function studies will be ordered. We will also obtain serum chemistries and supplement accordingly as needed. We will follow with you. Tita Coe MD
[2017-01-29 00:50] LABS: BLOOD UREA NITROGEN 12 mg/dL (7-21); CARBON DIOXIDE 30 mmol/L (21-33); CHLORIDE 101 mmol/L (98-107); GFR AFRICAN-AMERICAN > 60; GLUCOSE,RANDOM 132 mg/dL (70-110); POTASSIUM 3.6 mmol/L (3.6-5.0); SODIUM 137 mmol/L (132-148)
[2017-01-29 04:27] LABS: HEMATOCRIT 36.5 % (36.0-48.0); MEAN CELL VOLUME 80.2 fl (80.0-105.0); MEAN CORPUSCULAR HEMOGLOBIN 27.9 pg (25.0-35.0); MEAN CORPUSCULAR HGB CONC 34.8 g/dl (31.0-37.0); MEAN PLATELET VOLUME 9.4 fl (7.0-11.0); RED CELL DISTRIBUTION WIDTH 13.6 % (11.5-14.5); WHITE BLOOD COUNT 10.1 10^3/ul (4.5-11.0)
[2017-01-29 04:49] LABS: ALB/GLOB RATIO 1.3 (1.1-1.8); ALKALINE PHOSPHATASE 87 U/L (38-126); ALT/SGPT 33 U/L (7-56); AST/SGOT 35 U/L (14-36); BILIRUBIN,TOTAL 0.3 mg/dL (0.2-1.3); BLOOD UREA NITROGEN 12 mg/dL (7-21); CALCIUM 9.3 mg/dL (8.4-10.5); CARBON DIOXIDE 30 mmol/L (21-33); CHLORIDE 101 mmol/L (98-107); GFR AFRICAN-AMERICAN > 60; GLUCOSE,RANDOM 97 mg/dL (70-110); POTASSIUM 3.6 mmol/L (3.6-5.0); SODIUM 138 mmol/L (132-148); TOTAL PROTEIN 6.3 g/dL (5.8-8.3)
--- NOTE | 2017-01-29 07:23 | CP.PCM.PN ---
<Hemant Abarca - Last Filed: 01/29/17 14:02> Subjective - Date & Time of Evaluation Date of Evaluation: 01/29/17 Time of Evaluation: 07:00 - Subjective Subjective: GI progress note. Pt seen and examined at bedside. No acute events overnight. Pt still complains of abdominal pain/ discomfort. Tolerating liquid diet but c/o nausea denies vomiting. She had 1 bm overnight. No other complaints. 12 Point ROS performed and negative other than stated above. Objective - Vital Signs/Intake and Output Vital Signs (last 24 hours): Temp Pulse Resp BP Pulse Ox 98.1 F 84 15 152/91 H 99 01/29/17 04:00 01/29/17 07:00 01/29/17 07:00 01/29/17 05:00 01/29/17 07:00 Intake and Output: 01/29/17 01/29/17 06:59 18:59 Intake Total 200 Output Total 1300 Balance -1100 - Medications Medications: Current Medications Acetaminophen (Tylenol 325mg Tab) 650 mg PO Q6H PRN PRN Reason: Pain, moderate (4-7) Last Admin: 01/28/17 07:53 Dose: 650 mg Aspirin (Ecotrin) 81 mg PO DAILY [facility] Last Admin: 01/28/17 09:20 Dose: 81 mg Duloxetine HCl (Cymbalta) 60 mg PO DAILY [facility] Last Admin: 01/28/17 09:17 Dose: 60 mg Insulin Detemir (Levemir) 10 unit SC Q12 [facility] Last Admin: 01/28/17 22:57 Dose: 10 unit Insulin Human Regular (Humulin R Low) 0 units SC ACHS [facility] PRN Reason: Protocol Last Admin: 01/28/17 22:50 Dose: Not Given Lisinopril (Zestril) 5 mg PO DAILY [facility] Last Admin: 01/28/17 11:11 Dose: 5 mg Metoclopramide HCl (Reglan) 5 mg PO BID [facility] Last Admin: 01/28/17 17:48 Dose: 5 mg Pantoprazole Sodium (Protonix Inj) 40 mg IVP Q12 [facility] Last Admin: 01/28/17 22:57 Dose: 40 mg Tramadol HCl (Ultram) 100 mg PO Q6H PRN PRN Reason: pain Last Admin: 01/29/17 04:20 Dose: 100 mg - Labs Labs: 01/29/17 04:00 01/29/17 04:00 PT 10.7 Seconds (9.9-11.8) 01/27/17 18:34 INR 0.99 (0.93-1.08) 01/27/17 18:34 APTT 24.7 Seconds (23.7-30.8) 01/27/17 18:34 - Constitutional Appears: No Acute Distress - Head Exam Head Exam: ATRAUMATIC, NORMOCEPHALIC - Eye Exam Eye Exam: EOMI, PERRL - ENT Exam ENT Exam: Mucous Membranes Moist - Respiratory Exam Respiratory Exam: Clear to Ausculation Bilateral. absent: Rales, Wheezes - Cardiovascular Exam Cardiovascular Exam: REGULAR RHYTHM, RRR, +S1, +S2 - GI/Abdominal Exam GI & Abdominal Exam: Soft. absent: Distended, Tenderness - Extremities Exam Extremities Exam: absent: Calf Tenderness, Pedal Edema - Neurological Exam Neurological Exam: Alert, Awake, Oriented x3 - Psychiatric Exam Psychiatric exam: Normal Affect, Normal Mood - Skin Skin Exam: Dry, Intact, Normal Color, Warm Assessment and Plan - Assessment and Plan (Free Text) Assessment: 56F with pmh of DM, suspected gastroparesis, multiple TIAs orthostatic hypotension, esophagitis presents to the ED and found to be in DKA now resolved. Epigastric abdominal pain likely 2/2 suspected gastroparesis vs DKA vs esophagitis. - Medical management as per primary team - Abd CT w/o contrast was unremarkable - Started Erythromycin 250mg Q8H for 3 months - Discontinued Reglan - Continue Protonix 40mg daily - Recommend starting Miralax 17g daily titrated to 1-2 BMs daily - Liquid Diet - advance to consistent carb 6 kevin meals as tolerated - Gastric Emptying study as outpt - Avoid narcotic medication - Avoid medications which will worsen gastric emptying such as TCA ( amitriptyline), clonidine, and CCB - EEG reviewed, appears to have seizure activity - Reinforce adherence to medical therapy for DM Case and plan was reviewed and discussed in detail with GI team. <Benton Abrams MD - Last Filed: 01/29/17 19:03> Objective - Vital Signs/Intake and Output Vital Signs (last 24 hours): Temp Pulse Resp BP Pulse Ox 98 F 76 22 110/57 L 96 01/29/17 16:00 01/29/17 18:00 01/29/17 18:00 01/29/17 16:00 01/29/17 18:00 Intake and Output: 01/29/17 01/29/17 06:59 18:59 Intake Total 200 480 Output Total 1300 250 Balance -1100 230 - Medications Medications: Current Medications Acetaminophen (Tylenol 325mg Tab) 650 mg PO Q6H PRN PRN Reason: Pain, moderate (4-7) Last Admin: 01/28/17 07:53 Dose: 650 mg Aspirin (Ecotrin) 81 mg PO DAILY [facility] Last Admin: 01/29/17 11:31 Dose: 81 mg Duloxetine HCl (Cymbalta) 60 mg PO DAILY [facility] Last Admin: 01/29/17 11:30 Dose: 60 mg Erythromycin (Erythromycin) 250 mg PO Q8 [facility] PRN Reason: Protocol Stop: 04/29/17 22:01 Insulin Detemir (Levemir) 10 unit SC Q12 [facility] Last Admin: 01/29/17 11:31 Dose: 10 unit Insulin Human Regular (Humulin R Low) 0 units SC ACHS [facility] PRN Reason: Protocol Last Admin: 01/29/17 17:00 Dose: Not Given Levetiracetam (Keppra) 500 mg PO BID [facility] Last Admin: 01/29/17 17:55 Dose: 500 mg Lisinopril (Zestril) 5 mg PO DAILY [facility] Last Admin: 01/29/17 11:31 Dose: 5 mg Ondansetron HCl (Zofran Inj) 4 mg IVP Q6H PRN PRN Reason: Nausea/Vomiting Last Admin: 01/29/17 17:00 Dose: 4 mg Pantoprazole Sodium (Protonix Ec Tab) 40 mg PO 0600 [facility] Polyethylene Glycol (Miralax) 17 gm PO DAILY [facility] Last Admin: 01/29/17 11:31 Dose: 17 gm Tramadol HCl (Ultram) 100 mg PO Q6H PRN PRN Reason: pain Last Admin: 01/29/17 17:35 Dose: 100 mg - Labs Labs: 01/29/17 04:00 01/29/17 07:20 PT 10.7 Seconds (9.9-11.8) 01/27/17 18:34 INR 0.99 (0.93-1.08) 01/27/17 18:34 APTT 24.7 Seconds (23.7-30.8) 01/27/17 18:34 Attending/Attestation - Attestation I have personally seen and examined this patient.: Yes I have fully participated in the care of the patient.: Yes I have reviewed all pertinent clinical information, including history, physical exam and plan: Yes Notes (Text): 01/29/17 18:57 This is a 56 yr old F with PMH of DM, suspected gastroparesis, multiple TIAs, esophagitis on her last EGD 6 months ago, presents to the ED and found to be in DKA now resolved. GI team consulted for epigastric abdominal pain likely suspected gastroparesis vs DKA. She has had multiple EGD in the past but no gastric emptying study done. She denies history of H pylori. CTAP reviewed by me was unremarkable for bowel ischemia. Has been on reglan for years but will discontinue due to high risk for tardive dyskinesia in setting of multiple neurological disorders. instead will transition to erythromycin for 3 months- will get tolerant after that. May benefit from off label domperidone although her insurance may not cover for it. Discussed in detail with the daughters and the patient at bedside regarding strict glycemic control, small frequent meals with low fat and low fiber and gastric emptying study as outpatient. Continue protonix once daily and follow with her GI as outpatient. Avoid narcotics and opioids. Strict bowel regimen. Avoid medications which will worsen gastric emptying such as TCA (amitriptyline), clonidine, and Calcium channel blockers. Thank you for letting us participate in the care of your patient
[2017-01-29 07:41] LABS: BLOOD UREA NITROGEN 13 mg/dL (7-21); CALCIUM 9.1 mg/dL (8.4-10.5); CARBON DIOXIDE 28 mmol/L (21-33); CHLORIDE 102 mmol/L (98-107); GFR AFRICAN-AMERICAN > 60; GLUCOSE,RANDOM 125 mg/dL (70-110); POTASSIUM 3.6 mmol/L (3.6-5.0); SODIUM 139 mmol/L (132-148)
[2017-01-29] MEDS: Insulin Reg-LOW-Coverage SC SCH ×3 (08:32→17:00)
--- NOTE | 2017-01-29 11:23 | MRI ---
PROCEDURE: MRI BRAIN WITHOUT CONTRAST HISTORY: tia COMPARISON: None. TECHNIQUE: Multiplanar, multisequence MR images of the brain were obtained without intravenous contrast enhancement. FINDINGS: HEMORRHAGE: None DWI: No evidence of an acute or early subacute infarction. BRAIN PARENCHYMA: No mass effect or edema. Limited age-related neuro degenerative changes are identified manifest by diffuse chronic microangiopathy and mild diffuse cerebral atrophy. No cortical edema is identified and there is no suspicious extra-axial collection identified either. Solitary punctate cavernomata or potential granulomata are identified at the deep white matter of the bilateral parietal lobes seen only in the gradient echo axial series. The midline brain and appears diffusely unremarkable including the corpus callosum and craniocervical junction. VENTRICLES: Unremarkable. No hydrocephalus. CRANIUM: Unremarkable. ORBITS: Grossly unremarkable. PARANASAL SINUSES/MASTOIDS: Minimal left mastoiditis. VASCULAR SYSTEM: Skull base flow voids intact. OTHER FINDINGS: None. IMPRESSION: 1. No definite acute intracranial findings. 2. Limited age-appropriate age related neuro degenerative changes. No overt significant interval change greater prior head CT 01/27/2017.
[2017-01-29] MEDS: POLYETHYLENE GLYCOL 3350 17 GM/Dose PACKET PO SCH (11:31)
[2017-01-29] MEDS: Insulin Detemir 100 units/ml Vial (Levemir) SC SCH ×2 (11:31→22:03)
--- NOTE | 2017-01-29 11:35 | MRI ---
PROCEDURE: Magnetic Resonance Angiography Brain HISTORY: tia COMPARISON: None available. TECHNIQUE: 3D time of flight MR angiography of the intracranial arteries was performed. Rotating maximum intensity projection images were generated. FINDINGS: INTERNAL CEREBRAL ARTERIES: Unremarkable. The skull base, petrous, cavernous and supraclinoid segments are bilaterally widely patient. ANTERIOR CEREBRAL ARTERIES: Unremarkable. A1 and A2 segments are widely patent. Smaller distal branches unremarkable, as visualized. MIDDLE CEREBRAL ARTERIES: Unremarkable. M1 and M2 segments are widely patent. Perisylvian branches grossly symmetric. POSTERIOR CIRCULATION: Basilar Artery: Persistent proximal segment within mid and distal segment primarily perfused by a persistent right primitive trigeminal artery. Further, the bilateral posterior communicators are widely patent. Distal Vertebral Arteries: Persistent right and possibly left distal vertebral arteries are identified. Posterior Cerebral Arteries: Unremarkable. Posterior Inferior Cerebellar Arteries: Unremarkable. ANEURYSM/ VASCULAR MALFORMATIONS: None. OTHER FINDINGS: None. IMPRESSION: 1. Persistent bilateral distal vertebral artery circulations appreciated with persistent proximal basilar artery. The mid and distal basilar artery are normal in caliber due to a robust persistent right primitive trigeminal artery communicating with the right internal carotid artery. Further, the bilateral posterior communicating arteries are widely patent. 2. The remainder the intracranial MR angiogram is unremarkable.
--- NOTE | 2017-01-29 11:39 | MRI ---
PROCEDURE: MR Angiography of the neck without contrast HISTORY: tia COMPARISON: None available. TECHNIQUE: 3D [id number] angiography of the neck was performed. Rotating maximum intensity projection images of the cervical carotid and vertebral arteries were generated. The origins of the common carotid arteries were not visualized, which is a limitation inherent to the non-contrast time of flight technique. FINDINGS: RIGHT CAROTID ARTERIES: Common Carotid Artery: Normal. Carotid Bifurcation: Mild atherosclerotic plaques identified at the bulb without significant stenosis. Internal Carotid Artery:Normal. External Carotid Artery (proximal branches): Normal. LEFT CAROTID ARTERIES: Common Carotid Artery: Normal. Carotid Bifurcation: Normal. Internal Carotid Artery:Normal. External Carotid Artery (proximal branches): Normal. VERTEBRAL ARTERIES: Right Vertebral Artery: Normal. Left Vertebral Artery: Normal. OTHER FINDINGS: None. IMPRESSION: Limited right carotid bulbar atherosclerosis without significant stenosis resulting. The bilateral common and internal carotid arteries are widely patent throughout the neck. Note, normal variation is seen at the distal most bilateral vertebral arteries as well as the proximal basilar artery in the intracranial MR angiogram. Please see separate report also 01/29/2017.
--- NOTE | 2017-01-29 12:40 | PN ---
DATE: SUBJECTIVE: The patient is seen earlier. She is in the ICU 128, bed 2. She has had no fevers. Her symptoms had improved. No chest pain. PHYSICAL EXAMINATION VITAL SIGNS: On exam, the patient's temperature is 98, blood pressure is 150/90 and respiratory rate of 13. HEENT: Examination of the HEENT are unremarkable. NECK: Supple. LUNGS: Have decreased breath sounds. HEART: Normal S1 and S2. ABDOMEN: Soft and nontender. No rebound or guarding. LABORATORY DATA: [place] [address], hemoglobin of 12, and platelets of 244. Coagulation is noted. Blood gases are reviewed. BUN of 13 and creatinine of 0.7. Glucose of 125 and LFTs are normal. Lipase is normal. Urinalysis is noted. Microbiology revealed that the patient's blood cultures are no growth. Review of orders reveals that the patient to be on Cymbalta, insulin, Zosyn was given. The patient had a CAT scan of the abdomen and pelvis, which is unremarkable; however, it was done without p.o. or IV contrast. note is reviewed. ASSESSMENT AND PLAN: A 56-year-old female with SIRS (systemic inflammatory response syndrome) due to hyperosmolar, hyperglycemic state, with negative cultures in a patient with hypertension, diabetic and has gastroparesis, history of transient ischemic attack, history of esophageal ulcers, has had a cholecystectomy, a section, hysterectomy, and a right foot partial amputation. The patient was given antibiotics initially, now off of antibiotics, afebrile, normal white count, negative CAT scan, negative cultures. We will follow closely with you. Marc Sales MD
[2017-01-29] MEDS ORDERED: Pantoprazole 20 mg EC Tab PO STA (13:32)
--- NOTE | 2017-01-29 13:35 | PN ---
DATE: 01/29/2017 SUBJECTIVE: The patient is without chest pain. OBJECTIVE: VITAL SIGNS: Blood pressure 147/65, heart rate is in the 80s. NECK: Negative JVD. LUNGS: Without rales. HEART: S1, S2. EXTREMITIES: Without change. LABORATORY DATA: The hemoglobin is 12.7. Chemistries, glucose is 125. IMPRESSION 1. Epigastric discomfort. 2. Diabetes mellitus. 3. Hypertension. 4. Mild respiratory acidosis. Given these findings, the patient is hemodynamically stable. Carter Farmer MD
--- NOTE | 2017-01-29 15:12 | PN ---
LOCATION: CCU 128, room 2. SUBJECTIVE: This is a 56-year-old female presenting here with extremes of glycemic fluctuation and a brief bout of unresponsiveness at home and was found to have glucose levels over 500 and has been admitted to ICU for closer hemodynamic monitoring. Her glycemic levels have remained near optimal at this time as she is still n.p.o. as noted. Her glucose levels have ranged from 97 to 125 and 132 mg/dL. Her latest chemistries showed a BUN of 13, sodium 139, potassium 3.6, chloride 102, CO2 of 28, glucose 125, and creatinine 0.7. So at this time, we will continue the same basal insulin given as Levemir at 10 units subcu every 12 hours at 10 a.m. and 10 p.m. daily as given. We will titrate incrementally as indicated to optimize metabolic control. She was actually taking a much higher dose at bedtime with 32 units given at home as noted. As her oral intake is advanced, then we will start her also on a low dose of Humalog to cover the meals as indicated. In the meantime, we will continue the low dose correction scale using regular insulin as ordered. We will titrate incrementally as indicated to optimize metabolic control. We will follow. Tita Coe MD
--- NOTE | 2017-01-29 17:57 | CP.PCM.PN ---
Subjective - Date & Time of Evaluation Date of Evaluation: 01/29/17 Time of Evaluation: 11:00 - Subjective Subjective: Mrs. Monaco was seen and examined today at bedside in the ICU. She found in NAD and there were no acute events overnight. I discussed the EEG findings with ICU team and agreed with starting Keppra. MRI of the brain was normal. MRA of the head/neck showed variant, but normal anatomy that could explain why she had asymmetrical findings during severe hypotension. Objective - Vital Signs/Intake and Output Vital Signs (last 24 hours): Temp Pulse Resp BP Pulse Ox 97.6 F 74 15 110/70 86 L 01/29/17 12:00 01/29/17 14:00 01/29/17 13:00 01/29/17 14:00 01/29/17 14:00 Intake and Output: 01/29/17 01/29/17 06:59 18:59 Intake Total 200 Output Total 1300 Balance -1100 - Medications Medications: Current Medications Acetaminophen (Tylenol 325mg Tab) 650 mg PO Q6H PRN PRN Reason: Pain, moderate (4-7) Last Admin: 01/28/17 07:53 Dose: 650 mg Aspirin (Ecotrin) 81 mg PO DAILY [facility] Last Admin: 01/29/17 11:31 Dose: 81 mg Duloxetine HCl (Cymbalta) 60 mg PO DAILY [facility] Last Admin: 01/29/17 11:30 Dose: 60 mg Erythromycin (Erythromycin) 250 mg PO Q8 [facility] PRN Reason: Protocol Stop: 04/29/17 22:01 Insulin Detemir (Levemir) 10 unit SC Q12 [facility] Last Admin: 01/29/17 11:31 Dose: 10 unit Insulin Human Regular (Humulin R Low) 0 units SC ACHS [facility] PRN Reason: Protocol Last Admin: 01/29/17 17:00 Dose: Not Given Levetiracetam (Keppra) 500 mg PO BID [facility] Last Admin: 01/29/17 11:31 Dose: 500 mg Lisinopril (Zestril) 5 mg PO DAILY [facility] Last Admin: 01/29/17 11:31 Dose: 5 mg Ondansetron HCl (Zofran Inj) 4 mg IVP Q6H PRN PRN Reason: Nausea/Vomiting Last Admin: 01/29/17 17:00 Dose: 4 mg Pantoprazole Sodium (Protonix Ec Tab) 40 mg PO 0600 [facility] Polyethylene Glycol (Miralax) 17 gm PO DAILY [facility] Last Admin: 01/29/17 11:31 Dose: 17 gm Tramadol HCl (Ultram) 100 mg PO Q6H PRN PRN Reason: pain Last Admin: 01/29/17 17:35 Dose: 100 mg - Labs Labs: 01/29/17 04:00 01/29/17 07:20 PT 10.7 Seconds (9.9-11.8) 01/27/17 18:34 INR 0.99 (0.93-1.08) 01/27/17 18:34 APTT 24.7 Seconds (23.7-30.8) 01/27/17 18:34 - Neurological Exam Additional comments: Neurologically unchanged compared with previous examination. Assessment and Plan (1) New onset seizure Assessment & Plan: I recommend continuing Keppra 500 mg BID and may re-evaluate the EEG at a later date (6 months) as an outpatient. Continue management of metabolic and autonomic disorders per the ICU team. Follow-up with outpatient neurology two weeks after discharge from hospital. Status: Acute
--- NOTE | 2017-01-29 19:20 | PN ---
SUBJECTIVE: I saw her in the intensive care unit today. She is resting comfortably, a little bit better, less tremors; overall, improving. She has not been out of bed much. She is being seen by Cardiology, Endocrinology, Infectious Disease, Neurology and GI. PHYSICAL EXAMINATION: VITAL SIGNS: Temperature 98.1, pulse 85, blood pressure 152/91, respiratory rate 15 and 99% O2 sat on room air. HEENT: Head is atraumatic and normocephalic. HEART: Regular rate. LUNGS: Decreased breath sounds, but clear. GENERAL: She is more alert and is talking better. ABDOMEN: Soft and nontender. Positive bowel sounds. EXTREMITIES: No edema and she has very little tremor today. She did have an EEG that showed epileptiform motion. I put her on some Keppra, wait for Neurology. LABORATORY DATA: She has sodium of 139, potassium 3.6, BUN is 30, creatinine 0.7. GFR is greater than 60, sugar 125, calcium 9.1. AST is 35, ALT is 33, alkaline phosphatase 87. White count 7.1, better; hemoglobin 12.7, hematocrit 36.5, platelets are 244. ASSESSMENT AND PLAN: Need to get her out of bed. Needs Physical Therapy to see her. I think she needs to go Subacute Rehab and we will plan to do that by tomorrow. I put a call in for case management to help me with that. She is on liquid diet and Gastroenterology will increase her diet. Get her out of bed to chair. MRI of the brain is pending. MRA is pending. She is currently on clonidine, Cymbalta, Ecotrin, Keppra now, Levemir, magnesium sulphate, morphine, Protonix, Reglan, Tylenol, Ultram, Zestril, Zofran and Zosyn. She is definitely improving since she got here. We will continue with aggressive treatment and care which physical therapy. She might be able to go to Subacute Rehab tomorrow. Josafat Dent DO [email or web address]
[2017-01-30 05:19] LABS: HEMATOCRIT 40.6 % (36.0-48.0); MEAN CELL VOLUME 82.2 fl (80.0-105.0); MEAN CORPUSCULAR HEMOGLOBIN 27.9 pg (25.0-35.0); MEAN PLATELET VOLUME 9.2 fl (7.0-11.0); RED CELL DISTRIBUTION WIDTH 13.5 % (11.5-14.5); WHITE BLOOD COUNT 8.3 10^3/ul (4.5-11.0)
[2017-01-30 05:27] LABS: ALB/GLOB RATIO 1.3 (1.1-1.8); ALKALINE PHOSPHATASE 85 U/L (38-126); ALT/SGPT 42 U/L (7-56); AST/SGOT 37 U/L (14-36); BILIRUBIN,TOTAL 0.3 mg/dL (0.2-1.3); BLOOD UREA NITROGEN 16 mg/dL (7-21); CALCIUM 9.3 mg/dL (8.4-10.5); CARBON DIOXIDE 31 mmol/L (21-33); CHLORIDE 100 mmol/L (98-107); GFR AFRICAN-AMERICAN > 60; POTASSIUM 3.4 mmol/L (3.6-5.0); SODIUM 139 mmol/L (132-148); TOTAL PROTEIN 6.5 g/dL (5.8-8.3)
[2017-01-30 05:34] LABS: GLUCOSE,RANDOM 44 mg/dL (70-110)
[2017-01-30] MEDS ORDERED: Dextrose 50% SYRINGE Inj (50 ml) IVP STA (05:38)
--- NOTE | 2017-01-30 05:38 | CP.PCM.PN ---
Subjective - Date & Time of Evaluation Date of Evaluation: 01/30/17 Time of Evaluation: 05:37 - Subjective Subjective: draft FSBS 44 mg %, asymptomatic, on liquid diet, received levemir 10 units last night. Rx, D 50 % , 50 CC IV stat. Objective - Vital Signs/Intake and Output Vital Signs (last 24 hours): Temp Pulse Resp BP Pulse Ox 98.0 F 69 22 110/57 L 96 01/30/17 00:00 01/29/17 19:00 01/29/17 18:00 01/29/17 16:00 01/29/17 18:00 Intake and Output: 01/29/17 01/30/17 18:59 06:59 Intake Total 480 Output Total 250 Balance 230 - Medications Medications: Current Medications Acetaminophen (Tylenol 325mg Tab) 650 mg PO Q6H PRN PRN Reason: Pain, moderate (4-7) Last Admin: 01/29/17 22:02 Dose: 650 mg Aspirin (Ecotrin) 81 mg PO DAILY [facility] Last Admin: 01/29/17 11:31 Dose: 81 mg Duloxetine HCl (Cymbalta) 60 mg PO DAILY [facility] Last Admin: 01/29/17 11:30 Dose: 60 mg Erythromycin (Erythromycin) 250 mg PO Q8 [facility] PRN Reason: Protocol Stop: 04/29/17 22:01 Last Admin: 01/29/17 21:52 Dose: 250 mg Insulin Detemir (Levemir) 10 unit SC Q12 [facility] Last Admin: 01/29/17 22:03 Dose: 10 unit Insulin Human Regular (Humulin R Low) 0 units SC ACHS [facility] PRN Reason: Protocol Last Admin: 01/29/17 17:00 Dose: Not Given Levetiracetam (Keppra) 500 mg PO BID [facility] Last Admin: 01/29/17 17:55 Dose: 500 mg Lisinopril (Zestril) 5 mg PO DAILY [facility] Last Admin: 01/29/17 11:31 Dose: 5 mg Ondansetron HCl (Zofran Inj) 4 mg IVP Q6H PRN PRN Reason: Nausea/Vomiting Last Admin: 01/29/17 17:00 Dose: 4 mg Pantoprazole Sodium (Protonix Ec Tab) 40 mg PO 0600 [facility] Polyethylene Glycol (Miralax) 17 gm PO DAILY [facility] Last Admin: 01/29/17 11:31 Dose: 17 gm Tramadol HCl (Ultram) 100 mg PO Q6H PRN PRN Reason: pain Last Admin: 01/29/17 23:39 Dose: 100 mg - Labs Labs: 01/30/17 05:12 01/30/17 05:12 PT 10.7 Seconds (9.9-11.8) 01/27/17 18:34 INR 0.99 (0.93-1.08) 01/27/17 18:34 APTT 24.7 Seconds (23.7-30.8) 01/27/17 18:34
[2017-01-30] MEDS: Pantoprazole 40 mg EC Tab PO SCH (05:51)
[2017-01-30] MEDS ORDERED: Pantoprazole 40 mg EC Tab PO SCH (06:00)
[2017-01-30] MEDS: Insulin Reg-LOW-Coverage SC SCH (07:43)
[2017-01-30] MEDS: POLYETHYLENE GLYCOL 3350 17 GM/Dose PACKET PO SCH (10:24)
--- NOTE | 2017-01-30 10:35 | PN ---
DATE: ENDO FOLLOWUP NOTE ICU room 129, room 1. SUBJECTIVE: This is a 56-year-old female with recent uncontrolled type 2 insulin requiring diabetes, presenting here with altered mental status and marked hyperglycemic acceleration and is now being followed closely for metabolic management. She is also undergoing a full neurological workup for a possible recent seizure event. Currently, on antiseizure medication at this time. Her glycemic levels are fluctuating as she is only on a liquid diet and then also a GI workup was noted. Her glucose level overnight was low, dropping to 44 mg/dL and received D50 bolus injection as noted. Her latest chemistry shows a BUN of 16, sodium 139, potassium 3.4, chloride 100, CO2 31, creatinine 0.9. Her glucose levels were 97-125 yesterday as noted. So at this time, we will modify her Levemir insulin and lower the dose down to 60 units subcutaneous at bedtime daily to start tonight. We will titrate incremental as indicated to optimize metabolic control. We will follow and advice accordingly. Tita Coe MD
[2017-01-30] MEDS: Insulin Lispro (humaLOG) LOW Coverage SC SCH ×3 (11:37→21:47)
--- NOTE | 2017-01-30 11:57 | CON ---
GI CONSULTATION DATE: 01/30/2017 CHIEF COMPLAINT: Incomplete emptying of the bladder. HISTORY OF PRESENT ILLNESS: The patient is a 56-year-old woman who came in with seizure disorder. She had a Wan catheter placed. The Wan catheter was removed. She voided 130 mL and the residual is 250 mL according to the patient's note, prior history of urinary issues. No stones. No urinary infection. She voids well. No incontinence. She had a bowel movement this morning. No history of constipation. No dysuria. PAST MEDICAL HISTORY: Significant for diabetes. She was diagnosed in the past with TIAs. She has hypertension, gastroparesis. PAST SURGICAL HISTORY: She has had , hysterectomy. ALLERGIES: SHE HAS NO ALLERGIES. SOCIAL HISTORY: She does not smoke or drink. FAMILY HISTORY: Noncontributory. REVIEW OF SYSTEMS: Currently, no symptoms referable to the head, eyes, ears, nose, or throat. No cardiorespiratory or GI or psychiatric symptoms. No dermatologic symptoms. PHYSICAL EXAMINATION: VITAL SIGNS: Shows her to be afebrile. Blood pressure is 123/66, respiration 17, pulse 68. HEENT: Normocephalic. Sclerae clear. Conjunctivae noninjected. NECK: No CVA pain. ABDOMEN: No hepatosplenomegaly, rebound, or guarding. No suprapubic fullness. NEUROLOGIC: Well oriented x3. SKIN: No purpura or edema. LABORATORY DATA: Shows white count 8300, hemoglobin 13.8. Her chemistry show a creatinine of 0.9 with a BUN of 16. A CAT scan of the abdomen and pelvis was done. It showed the kidneys to be unremarkable with no obstruction. No obvious masses. The CAT scan was reviewed by me as well. IMPRESSION AND PLAN: I would leave the Wan out. The patient will try to sit on a commode, the next time she has to void and will double void and the nurse will do a bladder scan on her to check her residual, if it is less than 100 or 150 mL, I would leave the Wan out. Delvis Unger MD
[2017-01-30] MEDS ORDERED: Potassium Chloride 20 mEq ER Tab PO ONE (12:38)
[2017-01-30] MEDS: Sodium Chloride 0.45% 1,000 ML IV SCH (13:09)
--- NOTE | 2017-01-30 13:32 | PN ---
DATE: 01/30/2017 SUBJECTIVE: Patient in bed in no acute distress, nontoxic, was seen earlier today in 128, bed 2. PHYSICAL EXAMINATION VITAL SIGNS: Temperature is 97, blood pressure is 120/60, respiratory rate of 18. HEENT: Unremarkable. NECK: Supple. LUNGS: Decreased breath sounds. HEART: Normal S1 and S2. ABDOMEN: Soft and nontender. LABORATORY DATA: Reveals a white count of 8.3, hemoglobin of 13, platelets of 235. Chemistry reveals BUN of 16, creatinine of 0.9, and procalcitonin is noted. Urinalysis is noted. HIV is negative. Microbiology reveals blood cultures are negative. Urine cultures are negative. Review of orders reveals the patient is on p.o. erythromycin started up by gastroenterology for gastroparesis. Patient had a neck MRA, which was read by Dr. Abraham Motley. Limited right carotid bulbar atherosclerotic without significant stenosis. The bilateral common internal carotid arteries are widely patent. Patient also had an head MRI, which is reviewed. Patient also had an MRI of the brain. ASSESSMENT AND PLAN: This is a 56-year-old female with (SIRS) Systemic inflammatory response syndrome due to Hyperosmolar hyperglycemic state with negative cultures and the patient is with hypertension, diabetes, and gastroparesis now on p.o. erythromycin for gastroparesis and no evidence of infection. Marc Sales MD
--- NOTE | 2017-01-30 15:06 | PN ---
DATE: 01/30/2017 SUBJECTIVE: She was in the intensive care unit. She was resting in bed. Family is present. She is having lots of upper abdominal pain. She is not eating her food. PHYSICAL EXAMINATION: VITAL SIGNS: She has 97.8 temperature, 73 pulse, 184/98 blood pressure, 12 respiratory rate. HEENT: Head is atraumatic, normocephalic. HEART: Regular rate. LUNGS: Decreased breath sounds. ABDOMEN: Mildly guarding. Mid upper abdominal discomfort. Decreased bowel sounds. EXTREMITIES: No edema. LABORATORY DATA: I am trying to get out of the chair. I am trying to get physical therapy. I gave her blood pressure pill because the blood pressure was high. We placed potassium on her. Potassium is low. She has a nonreactive HIV. She has 8.3 white count better, 13.8 hemoglobin, 40.6 hematocrit, 235 platelets. She has 139 sodium, 3.4 potassium, I replaced that. BUN of 16, creatinine 0.9, GFR is greater than 60, sugar is 117, calcium is 9.3. Total bilirubin is 0.3, AST is 37, ALT is 42, alkaline phosphatase is 85. Total protein 6.5, albumin is 3.7. PLAN: She is being seen by multiple physician, endocrinology, urology, neurology. She has seizures. She has cardiology on the case, infectious disease on the case. She is off the antibiotics. She is currently on clonidine, which was stopped. Cozaar, Cymbalta, aspirin, azithromycin, insulin coverage, one dose potassium, Keppra, Levemir, MiraLax, Protonix, Tylenol, Ultram, Zestril, Zofran. I am going to give her some IV fluid again because of her severe abdominal pain and she is not eating at this time. We will check her labs tomorrow. I am putting an order to go to TCU. Hopefully, this gastroparesis will light up certainly multiple issues. She is with septic seizures, urinary retention, hypertension, gastroparesis, and low potassium. Josafat Dent DO
--- NOTE | 2017-01-30 15:59 | CP.PCM.PN ---
Subjective - Date & Time of Evaluation Date of Evaluation: 01/30/17 Time of Evaluation: 15:58 - Subjective Subjective: Mrs. Monaco was seen an examined today at bedside. Her family was present. She did not have any complaints. There were no acute events overnight. Objective - Vital Signs/Intake and Output Vital Signs (last 24 hours): Temp Pulse Resp BP Pulse Ox 97.8 F 82 18 126/76 98 01/30/17 11:35 01/30/17 14:00 01/30/17 14:00 01/30/17 13:23 01/30/17 13:23 Intake and Output: 01/30/17 01/30/17 06:59 18:59 Intake Total 480 Balance 480 - Medications Medications: Current Medications Acetaminophen (Tylenol 325mg Tab) 650 mg PO Q6H PRN PRN Reason: Pain, moderate (4-7) Last Admin: 01/29/17 22:02 Dose: 650 mg Aspirin (Ecotrin) 81 mg PO DAILY [facility] Last Admin: 01/30/17 10:23 Dose: 81 mg Duloxetine HCl (Cymbalta) 60 mg PO DAILY [facility] Last Admin: 01/30/17 10:23 Dose: 60 mg Erythromycin (Erythromycin) 250 mg PO Q8 [facility] PRN Reason: Protocol Stop: 04/29/17 22:01 Last Admin: 01/30/17 13:07 Dose: 250 mg Sodium Chloride (Sodium Chloride 0.45%) 1,000 mls @ 40 mls/hr IV .Q24H [facility] Last Admin: 01/30/17 13:09 Dose: 40 mls/hr Insulin Detemir (Levemir) 6 unit SC HS [facility] Insulin Human Lispro (Humalog Low) 0 units SC ACHS [facility] PRN Reason: Protocol Last Admin: 01/30/17 11:37 Dose: Not Given Levetiracetam (Keppra) 500 mg PO BID [facility] Last Admin: 01/30/17 10:24 Dose: 500 mg Lisinopril (Zestril) 5 mg PO DAILY [facility] Last Admin: 01/30/17 10:24 Dose: 5 mg Losartan Potassium (Cozaar) 50 mg PO DAILY [facility] Ondansetron HCl (Zofran Inj) 4 mg IVP Q6H [facility] PRN Reason: Nausea/Vomiting Last Admin: 01/30/17 08:06 Dose: 4 mg Pantoprazole Sodium (Protonix Ec Tab) 40 mg PO 0600 [facility] Last Admin: 01/30/17 05:51 Dose: 40 mg Polyethylene Glycol (Miralax) 17 gm PO DAILY [facility] Last Admin: 01/30/17 10:24 Dose: Not Given Tramadol HCl (Ultram) 100 mg PO Q6H PRN PRN Reason: pain Last Admin: 01/30/17 14:44 Dose: 100 mg - Labs Labs: 01/30/17 05:12 01/30/17 05:12 PT 10.7 Seconds (9.9-11.8) 01/27/17 18:34 INR 0.99 (0.93-1.08) 01/27/17 18:34 APTT 24.7 Seconds (23.7-30.8) 01/27/17 18:34 - Neurological Exam Additional comments: Neurologically unchanged compared with previous examination. Assessment and Plan (1) New onset seizure Assessment & Plan: Continue [facility] and follow up for EEG in 6 months as outpatient with Dr. Jose Knight. Status: Acute
[2017-01-30] MEDS: Insulin Detemir 100 units/ml Vial (Levemir) SC SCH (21:51)
[2017-01-31] MEDS: Pantoprazole 40 mg EC Tab PO SCH (05:04)
[2017-01-31 07:09] LABS: ALB/GLOB RATIO 1.3 (1.1-1.8); ALKALINE PHOSPHATASE 76 U/L (38-126); ALT/SGPT 37 U/L (7-56); AST/SGOT 29 U/L (14-36); BILIRUBIN,TOTAL 0.3 mg/dL (0.2-1.3); BLOOD UREA NITROGEN 16 mg/dL (7-21); CALCIUM 8.9 mg/dL (8.4-10.5); CHLORIDE 98 mmol/L (98-107); GFR AFRICAN-AMERICAN > 60; GLUCOSE,RANDOM 70 mg/dL (70-110); POTASSIUM 4.1 mmol/L (3.6-5.0); SODIUM 137 mmol/L (132-148); TOTAL PROTEIN 5.9 g/dL (5.8-8.3)
[2017-01-31 07:50] LABS: CARBON DIOXIDE 31 mmol/L (21-33)
[2017-01-31] MEDS: Insulin Lispro (humaLOG) LOW Coverage SC SCH ×4 (08:06→21:43)
[2017-01-31] MEDS: POLYETHYLENE GLYCOL 3350 17 GM/Dose PACKET PO SCH (09:22)
--- NOTE | 2017-01-31 12:11 | PN ---
CARDIOLOGY FOLLOWUP DATE: 01/31/2017 SUBJECTIVE: The patient is on telemetry with complaints of nausea. PHYSICAL EXAMINATION: VITAL SIGNS: Blood pressure 138/85, heart rate in the 90s. NECK: Negative JVD. LUNGS: Without rales. HEART: S1, S2. EXTREMITIES: Without edema. LABORATORY DATA: Hemoglobin is 13.8. Chemistries, glucose 168. IMPRESSION 1. Gastroparesis. 2. Diabetes mellitus. 3. Hypertension. 4. Resolution of her acidosis. PLAN: Given these findings, we will obtain an echocardiogram to evaluate her LV function. GI has been recalled to reevaluate options for her gastroparesis. Carter Farmer MD
--- NOTE | 2017-01-31 12:21 | PN ---
DATE: LOCATION: Room 261. SUBJECTIVE: This is a 56-year-old female with recent uncontrolled type 2 insulin requiring diabetes who continues to have nausea, dyspepsia, and vague upper abdominal pains and still on a liquid diet as noted. Pending the GI clearance accordingly. Her glucose values have been on the low side of normal, because of very nil oral intake as noted. LABORATORY DATA: Her latest chemistry shows a BUN of 60, sodium 137, potassium 4.1, chloride 98, CO2 31, glucose 70, and creatinine is 0.8. Her glucose levels have ranged from 117 to 140 and 168 mg/dL. ASSESSMENT AND PLAN: So at this time, we would really consult with the GI specialist whether we can advance her to at least a soft diet. She really has suboptimal and variable oral intake with worsening under nutrition as noted. We will modify the basal insulin to a much lower dose of Levemir given at 6 units subcutaneous at bedtime daily as ordered. She was actually using 32 units of Levemir at bedtime at home prior to this admission. We will obtain serum chemistries and supplement accordingly as needed. We will follow up. Tita Coe MD
--- NOTE | 2017-01-31 15:18 | PN ---
SUBJECTIVE: I see her in room 2621. She is out of the intensive care unit. She has got a throw-up bucket next to her, she is throwing up, with nausea, vomiting and abdominal pain. She does have gastroparesis. The physician general internal medicine has signed off and I am trying to get the physician general internal medicine back on to look at her. She is currently on IV fluids. I have bumped up her Cozaar to 100 because her blood pressure is fanny-high. She is on Cymbalta, Ecotrin, erythromycin by the physician general internal medicine, which I am upset because it possibly could be bothering her stomach. Insulin coverage, potassium replacement as needed, Keppra for seizures, Levemir for diabetes and MiraLax to get the bowels moving, Protonix, Tylenol, Ultram for pain and Zofran which she is taking around the clock for nauseousness. PHYSICAL EXAMINATION: VITAL SIGNS: She has a 98.0 temperature, 97 pulse, her blood pressure is up to 172/103 and it was 138/85 and it bumped up closer to 100, respiratory rate 19 and 97% O2 sat on room air. GENERAL: When I see her, she looks ill. She looks uncomfortable in bed. She has a throw-up bucket next to her. She is very nauseous. She has thrown up a few times. She cannot eat. HEENT: Head is atraumatic, normocephalic. HEART: Regular rate. LUNGS: Decreased breath sounds, but clear. ABDOMEN: Mildly discomfort, no guarding, no rebound. Decreased bowel sounds. EXTREMITIES: No edema. LABORATORY DATA: She has a 137 sodium, potassium 4.1, BUN is 16, creatinine 0.8, GFR is greater than 60, sugar is 70, calcium is 8.9, total bilirubin is 0.3. AST is 29, ALT is 37, alkaline phosphatase 73, total protein 5.9, TSH is 0.49. White count is good at 8.3, better, 13.8 hemoglobin, 40.6 hematocrit with a 235 platelets. PLAN: I need help with her gastroparesis. She is throwing up. HIV was nonreactive. I need to call GI back in. Discuss with Cardiology. She is off antibiotics. I just cannot get her to eat and keep the food down. We will continue with the IV fluids and increase the blood pressure medication. I will call GI in. I also increased her blood pressure medications. I am hoping to discharge her tomorrow. She cannot be discharged now with throwing up and very uncomfortable. Josafat Dent DO
[2017-01-31] MEDS: Sodium Chloride 0.45% 1,000 ML IV SCH (15:21)
--- NOTE | 2017-01-31 20:51 | PN ---
DATE: 01/31/2017 SUBJECTIVE: The patient is in bed, in no acute distress, nontoxic, no fevers and chills. PHYSICAL EXAMINATION: VITAL SIGNS: Temperature is 98, blood pressure is 170/100, respiratory rate of 18. HEENT: Unremarkable. NECK: Supple. LUNGS: Decreased breath sounds. HEART: Normal S1 and S2. ABDOMEN: Soft. LABORATORY DATA: Reveals a white count of 8.3, hemoglobin of 13, platelets of 235. Chemistry reveals BUN of 16, creatinine of 0.8. Procalcitonin is noted and urinalysis is noted. HIV is negative. Review of orders reveals the patient to be on erythromycin, started by GI. ASSESSMENT AND PLAN: This is a 56-year-old female with (SIRS) systemic inflammatory response syndrome, admitted due to hyperosmolar hyperglycemic state with negative cultures, and the patient is with hypertension, diabetes, and gastroparesis; now on p.o. erythromycin for gastroparesis and no evidence of infection at this point. The patient is at risk for developing nosocomial. Marc Sales MD
[2017-01-31] MEDS: Insulin Detemir 100 units/ml Vial (Levemir) SC SCH (21:44)
[2017-02-01] MEDS: Pantoprazole 40 mg EC Tab PO SCH (06:12)
[2017-02-01 06:24] VITALS: O2SAT 98
[2017-02-01 06:24] LABS: HEMATOCRIT 36.9 % (36.0-48.0); MEAN CELL VOLUME 80.6 fl (80.0-105.0); MEAN CORPUSCULAR HEMOGLOBIN 27.9 pg (25.0-35.0); MEAN CORPUSCULAR HGB CONC 34.7 g/dl (31.0-37.0); MEAN PLATELET VOLUME 9.4 fl (7.0-11.0); RED CELL DISTRIBUTION WIDTH 13.2 % (11.5-14.5); WHITE BLOOD COUNT 7.8 10^3/ul (4.5-11.0)
[2017-02-01 07:02] LABS: ALB/GLOB RATIO 1.3 (1.1-1.8); ALKALINE PHOSPHATASE 74 U/L (38-126); ALT/SGPT 33 U/L (7-56); AMYLASE 45 U/L (35-125); AST/SGOT 27 U/L (14-36); BILIRUBIN,TOTAL 0.3 mg/dL (0.2-1.3); BLOOD UREA NITROGEN 12 mg/dL (7-21); CALCIUM 8.9 mg/dL (8.4-10.5); CARBON DIOXIDE 35 mmol/L (21-33); CHLORIDE 100 mmol/L (98-107); GFR AFRICAN-AMERICAN > 60; GLUCOSE,RANDOM 95 mg/dL (70-110); LIPASE 43 U/L (23-300); POTASSIUM 3.8 mmol/L (3.6-5.0); SODIUM 138 mmol/L (132-148); TOTAL PROTEIN 5.8 g/dL (5.8-8.3)
[2017-02-01] MEDS: Insulin Lispro (humaLOG) LOW Coverage SC SCH ×4 (08:36→22:03)
--- NOTE | 2017-02-01 09:19 | CP.PCM.PN ---
<Trixie Guzman - Last Filed: 02/01/17 11:05> Subjective - Date & Time of Evaluation Date of Evaluation: 02/01/17 Time of Evaluation: 08:50 - Subjective Subjective: GI Fellow PGY4 Progress Note Pt seen and examined at bedside, pt in distress and crying with complaints of abdominal pain and nausea. Pt reports taking only a small bite of her full liquid diet with acute onset of abdominal pain and nausea. Pt denies any vomiting just severe nausea and report that tramadol helps a little. Pt reports having a soft BM last night and regular BM daily. Pt does not think she will be able to eat regular food. ROS: A 12pt ROS was obtained and was negative except as above. Objective - Vital Signs/Intake and Output Vital Signs (last 24 hours): Temp Pulse Resp BP Pulse Ox 99.1 F 75 18 136/82 98 02/01/17 06:00 02/01/17 06:00 02/01/17 06:00 02/01/17 06:00 02/01/17 06:00 Intake and Output: 02/01/17 02/01/17 06:59 18:59 Intake Total 472 Output Total 500 Balance -28 - Medications Medications: Current Medications Acetaminophen (Tylenol 325mg Tab) 650 mg PO Q6H PRN PRN Reason: Pain, moderate (4-7) Last Admin: 01/31/17 08:33 Dose: 650 mg Aspirin (Ecotrin) 81 mg PO DAILY [facility] Last Admin: 01/31/17 09:20 Dose: 81 mg Duloxetine HCl (Cymbalta) 60 mg PO DAILY [facility] Last Admin: 01/31/17 09:20 Dose: 60 mg Erythromycin (Erythromycin) 250 mg PO Q8 [facility] PRN Reason: Protocol Stop: 04/29/17 22:01 Last Admin: 02/01/17 06:12 Dose: 250 mg Sodium Chloride (Sodium Chloride 0.45%) 1,000 mls @ 40 mls/hr IV .Q24H [facility] Last Admin: 01/31/17 15:21 Dose: 40 mls/hr Insulin Detemir (Levemir) 6 unit SC HS [facility] Last Admin: 01/31/17 21:44 Dose: 6 unit Insulin Human Lispro (Humalog Low) 0 units SC ACHS [facility] PRN Reason: Protocol Last Admin: 02/01/17 08:36 Dose: Not Given Levetiracetam (Keppra) 500 mg PO BID [facility] Last Admin: 01/31/17 18:02 Dose: 500 mg Losartan Potassium (Cozaar) 100 mg PO DAILY [facility] Last Admin: 01/31/17 10:35 Dose: Not Given Ondansetron HCl (Zofran Inj) 4 mg IVP Q4 PRN PRN Reason: Nausea/Vomiting Last Admin: 02/01/17 08:47 Dose: 4 mg Pantoprazole Sodium (Protonix Ec Tab) 40 mg PO 0600 [facility] Last Admin: 02/01/17 06:12 Dose: 40 mg Polyethylene Glycol (Miralax) 17 gm PO DAILY [facility] Last Admin: 01/31/17 09:22 Dose: Not Given Tramadol HCl (Ultram) 100 mg PO Q6H PRN PRN Reason: pain Last Admin: 02/01/17 08:32 Dose: 100 mg - Labs Labs: 02/01/17 05:30 02/01/17 05:30 PT 10.7 Seconds (9.9-11.8) 01/27/17 18:34 INR 0.99 (0.93-1.08) 01/27/17 18:34 APTT 24.7 Seconds (23.7-30.8) 01/27/17 18:34 - Constitutional Appears: In Acute Distress, Agitated - Head Exam Head Exam: ATRAUMATIC, NORMAL INSPECTION, NORMOCEPHALIC - Eye Exam Eye Exam: EOMI, Normal appearance, PERRL - ENT Exam ENT Exam: Mucous Membranes Moist - Neck Exam Neck Exam: Full ROM - Respiratory Exam Respiratory Exam: Clear to Ausculation Bilateral, NORMAL BREATHING PATTERN - Cardiovascular Exam Cardiovascular Exam: REGULAR RHYTHM, RRR, +S1, +S2 - GI/Abdominal Exam GI & Abdominal Exam: Soft, Tenderness, Normal Bowel Sounds. absent: Distended, Firm, Guarding, Rigid, Organomegaly - Rectal Exam Rectal Exam: Deferred - Extremities Exam Extremities Exam: Full ROM, Normal Inspection - Back Exam Back Exam: NORMAL INSPECTION - Neurological Exam Neurological Exam: Alert, Awake, Oriented x3 - Psychiatric Exam Psychiatric exam: Agitated - Skin Skin Exam: Dry, Intact, Normal Color, Warm Assessment and Plan - Assessment and Plan (Free Text) Assessment: This is a 56F with pmh of DM, suspected gastroparesis, multiple TIAs orthostatic hypotension, esophagitis presents to the ED and found to be in DKA now resolved. Epigastric abdominal pain likely 2/2 suspected gastroparesis vs DKA vs esophagitis. 1. Gastroparesis 2. Uncontrolled DM 3. Seizure Disorder 4. Chronic pain Plan: - Continue Erythromycin 250mg Q8H for 3 months, takes 2-3 weeks to work - Discontinued Reglan with concern for tardive dyskinesia with EEG reviewed, appears to have seizure activity - Continue Protonix 40mg daily - Continue bowel regimen - Liquid Diet - advance to consistent carb 6 kevin meals as tolerated - Gastric Emptying study as outpt - Avoid narcotic medication - Avoid medications which will worsen gastric emptying such as TCA ( amitriptyline), clonidine, and CCB - Reinforce adherence to medical therapy for DM - Discussed with pt about possible PEG for nutritional intake an dpt refused saying she will attempt to eat - Pt will need to follow up as an outpt and be referred for possible gastric pacemaker for severe gastroparesis - Pt okay for discharge from GI perspective, discussed with <Aliza KIMBALL,[place] - Last Filed: 02/01/17 11:21> Objective - Vital Signs/Intake and Output Vital Signs (last 24 hours): Temp Pulse Resp BP Pulse Ox 99.1 F 75 18 136/82 98 02/01/17 06:00 02/01/17 06:00 02/01/17 06:00 02/01/17 06:00 02/01/17 06:00 Intake and Output: 02/01/17 02/01/17 06:59 18:59 Intake Total 472 Output Total 500 Balance -28 - Medications Medications: Current Medications Acetaminophen (Tylenol 325mg Tab) 650 mg PO Q6H PRN PRN Reason: Pain, moderate (4-7) Last Admin: 01/31/17 08:33 Dose: 650 mg Aspirin (Ecotrin) 81 mg PO DAILY [facility] Last Admin: 02/01/17 10:54 Dose: 81 mg Duloxetine HCl (Cymbalta) 60 mg PO DAILY [facility] Last Admin: 02/01/17 10:54 Dose: 60 mg Erythromycin (Erythromycin) 250 mg PO Q8 [facility] PRN Reason: Protocol Stop: 04/29/17 22:01 Last Admin: 02/01/17 06:12 Dose: 250 mg Sodium Chloride (Sodium Chloride 0.45%) 1,000 mls @ 40 mls/hr IV .Q24H [facility] Last Admin: 01/31/17 15:21 Dose: 40 mls/hr Insulin Detemir (Levemir) 6 unit SC HS [facility] Last Admin: 01/31/17 21:44 Dose: 6 unit Insulin Human Lispro (Humalog Low) 0 units SC ACHS [facility] PRN Reason: Protocol Last Admin: 02/01/17 08:36 Dose: Not Given Levetiracetam (Keppra) 500 mg PO BID [facility] Last Admin: 02/01/17 10:54 Dose: 500 mg Losartan Potassium (Cozaar) 100 mg PO DAILY [facility] Last Admin: 02/01/17 10:53 Dose: 100 mg Ondansetron HCl (Zofran Inj) 4 mg IVP Q4 PRN PRN Reason: Nausea/Vomiting Last Admin: 02/01/17 08:47 Dose: 4 mg Pantoprazole Sodium (Protonix Ec Tab) 40 mg PO 0600 [facility] Last Admin: 02/01/17 06:12 Dose: 40 mg Polyethylene Glycol (Miralax) 17 gm PO DAILY [facility] Last Admin: 02/01/17 10:54 Dose: Not Given Tramadol HCl (Ultram) 100 mg PO Q6H PRN PRN Reason: pain Last Admin: 02/01/17 08:32 Dose: 100 mg - Labs Labs: 02/01/17 05:30 02/01/17 05:30 PT 10.7 Seconds (9.9-11.8) 01/27/17 18:34 INR 0.99 (0.93-1.08) 01/27/17 18:34 APTT 24.7 Seconds (23.7-30.8) 01/27/17 18:34 Attending/Attestation - Attestation I have personally seen and examined this patient.: Yes I have fully participated in the care of the patient.: Yes I have reviewed all pertinent clinical information, including history, physical exam and plan: Yes Notes (Text): 02/01/17 11:18 Patient seen at bedside with GI fellow on rounds.This is a 56 yr old F with PMH of DM Uncontrolled, suspected gastroparesis, multiple TIAs, esophagitis on her last EGD 6 months ago, presents to the ED and found to be in DKA now resolved. GI team consulted for epigastric abdominal pain likely suspected gastroparesis vs DKA. She has had multiple EGD in the past but no gastric emptying study done. She denies history of H pylori. CTAP reviewed by me was unremarkable for bowel ischemia. Has been on reglan for years but will discontinue due to high risk for tardive dyskinesia in setting of multiple neurological disorders. instead started erythromycin for 3 months- will get tolerant after that. May benefit from off label domperidone although her insurance may not cover for it. Discussed in detail with the patient at bedside regarding strict glycemic control, small frequent meals with low fat and low fiber and gastric emptying study as outpatient. Discussed if she is not tolerating orl feeds than may require short term PEG tube which patient refused vehemently. Continue protonix once daily and follow with her GI as outpatient. Avoid narcotics and opioids. Strict bowel regimen. Avoid medications which will worsen gastric emptying such as TCA (amitriptyline), clonidine, and Calcium channel blockers. Thank you for letting us participate in the care of your patient
[2017-02-01] MEDS: POLYETHYLENE GLYCOL 3350 17 GM/Dose PACKET PO SCH (10:54)
--- NOTE | 2017-02-01 11:49 | PN ---
DATE: ENDOCRINOLOGY FOLLOWUP NOTE LOCATION: Room 261. This is a 56-year-old female with recent uncontrolled type 2 insulin requiring diabetes presenting here with hyperglycemic accelerations and now because of the liquid diet being given at low normal glycemic profile as noted. She is also undergoing GI and neurological workup at this time. Her glucose levels have ranged from 82-97 and 237 mg/dL. Her latest chemistry showed a BUN of 12, sodium 138, potassium 3.8, chloride 100, CO2 35, glucose 95, and creatinine 0.8. So at this time, we will continue the low dose basal insulin given as Levemir at 6 units subcu at bedtime daily as given. We will continue also the low dose correction scale using Humalog insulin as ordered. She continues to be on the liquid diet and there will be evaluation by GI and they will determine whether to advance her to a soft diet accordingly. We will serial chemistries and supplement accordingly as needed. We will follow with you. Tita Coe MD
--- NOTE | 2017-02-01 13:59 | DS ---
SUBJECTIVE: I saw the patient resting fairly comfortably in bed. She has really not improved much. She has got this gastroparesis that GI cannot figure out. They have her on erythromycin, hopefully in the 3 weeks, will help her. She is getting to home on Cozaar, Cymbalta, Ecotrin, erythromycin, Keppra for seizures, MiraLax, Protonix, Ultram and Zofran. PHYSICAL EXAMINATION: VITAL SIGNS: 99.1 temperature, 75 pulse, 136/82 blood pressure, 18 respiratory rate, 98% saturation on room air. HEENT: Head is atraumatic, normocephalic. HEART: Regular rate. LUNGS: Clear to auscultation with decreased breath sounds. ABDOMEN: At this time is soft. Positive bowel sounds. Mild tenderness but no guarding, no rebound. EXTREMITIES: No edema. LABORATORY DATA: She has 7.8 white count, 12.8 hemoglobin, 36.9 hematocrit, 252 platelets. She has 138 sodium, potassium 3.8, BUN of 12, creatinine 0.8, GFR is greater than 60, sugar is 97, calcium is 8.9, total bilirubin is 0.38. AST is 27, ALT is 33, alkaline phosphatase 74. Total protein is 5.8. PLAN: She is going to follow with guidance secretary and her family practitioner in the next couple of days. She has been seen here by cardio, endo and infectious disease, neurology and GI. I am hoping that she improves. my worry is that she may act out and not leave Josafat Dent DO MTDD
[2017-02-01] MEDS: Sodium Chloride 0.45% 1,000 ML IV SCH (20:25)
[2017-02-01] MEDS: Insulin Detemir 100 units/ml Vial (Levemir) SC SCH (22:19)
[2017-02-02] MEDS: Pantoprazole 40 mg EC Tab PO SCH (05:44)
--- NOTE | 2017-02-02 07:21 | CP.PCM.PN ---
<Hemant Abarca - Last Filed: 02/02/17 09:45> Subjective - Date & Time of Evaluation Date of Evaluation: 02/02/17 Time of Evaluation: 07:00 - Subjective Subjective: GI Progress Note: Pt seen and examined at bedside. No acute events overnight. Pt states that her abdominal pain is better 4/10 in severity. She does c/o of some nausea following eating but denies any vomiting. Last BM yesterday. No other complaints. ROS: A 12pt ROS was obtained and was negative except as above. Objective - Vital Signs/Intake and Output Vital Signs (last 24 hours): Temp Pulse Resp BP Pulse Ox 97.8 F 78 20 130/81 98 02/02/17 06:00 02/02/17 06:00 02/02/17 06:00 02/02/17 06:00 02/01/17 06:00 Intake and Output: 02/02/17 02/02/17 06:59 18:59 Intake Total 120 Balance 120 - Medications Medications: Current Medications Acetaminophen (Tylenol 325mg Tab) 650 mg PO Q6H PRN PRN Reason: Pain, moderate (4-7) Last Admin: 01/31/17 08:33 Dose: 650 mg Aspirin (Ecotrin) 81 mg PO DAILY [facility] Last Admin: 02/01/17 10:54 Dose: 81 mg Duloxetine HCl (Cymbalta) 60 mg PO DAILY [facility] Last Admin: 02/01/17 10:54 Dose: 60 mg Erythromycin (Erythromycin) 250 mg PO Q8 [facility] PRN Reason: Protocol Stop: 04/29/17 22:01 Last Admin: 02/01/17 22:18 Dose: 250 mg Sodium Chloride (Sodium Chloride 0.45%) 1,000 mls @ 40 mls/hr IV .Q24H [facility] Last Admin: 02/01/17 20:25 Dose: Not Given Insulin Detemir (Levemir) 6 unit SC HS [facility] Last Admin: 02/01/17 22:19 Dose: 6 unit Insulin Human Lispro (Humalog Low) 0 units SC ACHS [facility] PRN Reason: Protocol Last Admin: 02/01/17 22:03 Dose: Not Given Levetiracetam (Keppra) 500 mg PO BID [facility] Last Admin: 02/01/17 18:13 Dose: 500 mg Losartan Potassium (Cozaar) 100 mg PO DAILY [facility] Last Admin: 02/01/17 10:53 Dose: 100 mg Ondansetron HCl (Zofran Inj) 4 mg IVP Q4 PRN PRN Reason: Nausea/Vomiting Last Admin: 02/01/17 14:58 Dose: 4 mg Pantoprazole Sodium (Protonix Ec Tab) 40 mg PO 0600 [facility] Last Admin: 02/02/17 05:44 Dose: 40 mg Polyethylene Glycol (Miralax) 17 gm PO DAILY [facility] Last Admin: 02/01/17 10:54 Dose: Not Given Tramadol HCl (Ultram) 100 mg PO Q6H PRN PRN Reason: pain Last Admin: 02/01/17 22:17 Dose: 100 mg - Labs Labs: 02/01/17 05:30 02/01/17 05:30 PT 10.7 Seconds (9.9-11.8) 01/27/17 18:34 INR 0.99 (0.93-1.08) 01/27/17 18:34 APTT 24.7 Seconds (23.7-30.8) 01/27/17 18:34 - Constitutional Appears: No Acute Distress - Head Exam Head Exam: ATRAUMATIC, NORMOCEPHALIC - Eye Exam Eye Exam: EOMI, PERRL - ENT Exam ENT Exam: Mucous Membranes Moist - Respiratory Exam Respiratory Exam: Clear to Ausculation Bilateral. absent: Rales, Wheezes - Cardiovascular Exam Cardiovascular Exam: REGULAR RHYTHM, +S1, +S2 - GI/Abdominal Exam GI & Abdominal Exam: Soft. absent: Distended, Tenderness - Extremities Exam Extremities Exam: absent: Calf Tenderness, Pedal Edema - Neurological Exam Neurological Exam: Alert, Awake, Oriented x3 - Skin Skin Exam: Dry, Intact, Normal Color Assessment and Plan - Assessment and Plan (Free Text) Assessment: 56F with pmh of DM, suspected gastroparesis, multiple TIAs orthostatic hypotension, esophagitis presents to the ED and found to be in DKA now resolved. Epigastric abdominal pain likely 2/2 suspected gastroparesis vs DKA vs esophagitis vs sepsis. Pt found to have seizure activity on EEG now placed on Keppra and is being followed by neurology. Pt is also being followed up by urology for urinary retention. 1. Gastroparesis 2. Uncontrolled DM 3. Seizure Disorder 4. Urinary retention 5. 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 She was advised on the importance of following up with one and will make an appointment in a week - Continue Erythromycin 250mg Q8H for 3 months, takes 2-3 weeks to work - Discontinued Reglan with concern for tardive dyskinesia with EEG reviewed, appears to have seizure activity - Continue Protonix 40mg daily - Strict bowel regimen - Soft diet - small frequent meals with low fat and low fiber - advance as tolerated - Gastric Emptying study as outpt - Avoid narcotics and medications that will worsen gastric emptying such as TCA (amitriptyline), clonidine, and Calcium channel blockers - It has been discussed to the pt about possible temporary PEG for nutritional intake but pt has strongly refused - Follow up as an outpt and be referred for possible gastric pacemaker for severe gastroparesis Case and plan was reviewed and discussed in detail with GI team. <Willie Jaime - Last Filed: 02/02/17 12:48> Objective - Vital Signs/Intake and Output Vital Signs (last 24 hours): Temp Pulse Resp BP Pulse Ox 98.2 F 81 18 183/94 H 98 02/02/17 12:00 02/02/17 12:00 02/02/17 12:00 02/02/17 12:00 02/01/17 06:00 Intake and Output: 02/02/17 02/02/17 06:59 18:59 Intake Total 120 Balance 120 - Medications Medications: Current Medications Acetaminophen (Tylenol 325mg Tab) 650 mg PO Q6H PRN PRN Reason: Pain, moderate (4-7) Last Admin: 01/31/17 08:33 Dose: 650 mg Aspirin (Ecotrin) 81 mg PO DAILY [facility] Last Admin: 02/02/17 09:03 Dose: 81 mg Duloxetine HCl (Cymbalta) 60 mg PO DAILY [facility] Last Admin: 02/02/17 09:03 Dose: 60 mg Erythromycin (Erythromycin) 250 mg PO Q8 [facility] PRN Reason: Protocol Stop: 04/29/17 22:01 Last Admin: 02/01/17 22:18 Dose: 250 mg Sodium Chloride (Sodium Chloride 0.45%) 1,000 mls @ 40 mls/hr IV .Q24H [facility] Last Admin: 02/01/17 20:25 Dose: Not Given Insulin Detemir (Levemir) 6 unit SC HS [facility] Last Admin: 02/01/17 22:19 Dose: 6 unit Insulin Human Lispro (Humalog Low) 0 units SC ACHS [facility] PRN Reason: Protocol Last Admin: 02/02/17 12:36 Dose: Not Given Levetiracetam (Keppra) 500 mg PO BID [facility] Last Admin: 02/02/17 09:03 Dose: 500 mg Losartan Potassium (Cozaar) 100 mg PO DAILY [facility] Last Admin: 02/02/17 09:03 Dose: 100 mg Ondansetron HCl (Zofran Inj) 4 mg IVP Q4 PRN PRN Reason: Nausea/Vomiting Last Admin: 02/01/17 14:58 Dose: 4 mg Pantoprazole Sodium (Protonix Ec Tab) 40 mg PO 0600 [facility] Last Admin: 02/02/17 05:44 Dose: 40 mg Polyethylene Glycol (Miralax) 17 gm PO DAILY [facility] Last Admin: 02/02/17 09:26 Dose: Not Given Tramadol HCl (Ultram) 100 mg PO Q6H PRN PRN Reason: pain Last Admin: 02/02/17 09:04 Dose: 100 mg - Labs Labs: 02/01/17 05:30 02/01/17 05:30 PT 10.7 Seconds (9.9-11.8) 01/27/17 18:34 INR 0.99 (0.93-1.08) 01/27/17 18:34 APTT 24.7 Seconds (23.7-30.8) 01/27/17 18:34 Attending/Attestation - Attestation I have personally seen and examined this patient.: Yes I have fully participated in the care of the patient.: Yes I have reviewed all pertinent clinical information, including history, physical exam and plan: Yes Notes (Text): 02/02/17 12:46 56 year old female with h/o poorly controlled DM, chronic opiate use, likely gastroparesis, h/o TIA admitted with DKA, chronic abdominal pain, and n/w. 1. Gastroparesis 2. Constipation Plan: -recommend supportive measures including low fat diet / small frequent meals - continue protonix daily - Reglan discontinued due to risk of neurological complications - continue erythromycin for now - may consider domperidone if possible as an outpatient - minimize narcotics - tight glycemic control - continue miralax for constipation
[2017-02-02] MEDS: Insulin Lispro (humaLOG) LOW Coverage SC SCH ×2 (08:20→12:36)
--- NOTE | 2017-02-02 09:14 | PN ---
SUBJECTIVE: The patient is in bed, seen earlier this morning in 261. She still feels she has nausea, but it is somewhat improved. She had her breakfast. PHYSICAL EXAMINATION: VITAL SIGNS: Temperature is 98, blood pressure is 130/80, respiratory rate of 16. HEENT: Unremarkable. NECK: Supple. LUNGS: Have decreased breath sounds. HEART: Normal S1, S2. ABDOMEN: Soft and nontender. LABORATORY DATA: Reveals a white count of 7.8, hemoglobin of 12, platelets of 252. BUN of 12, creatinine 0.8. Urinalysis is noted and HIV is negative. Microbiology reveals blood cultures are negative. Urine cultures are negative. ASSESSMENT AND PLAN: This is a 56-year-old female with SIRS, systemic inflammatory response syndrome, admitted with hypoosmolar hypoglycemic state, negative cultures, hypertension, diabetes, gastroparesis, currently on p.o. erythromycin for gastroparesis. No evidence of infection, however, the patient is at risk for developing nosocomial infections. Marc Sales MD
[2017-02-02] MEDS: POLYETHYLENE GLYCOL 3350 17 GM/Dose PACKET PO SCH (09:26)
--- NOTE | 2017-02-02 09:48 | DS ---
SUBJECTIVE: I saw her this morning resting in bed. She is not crying. She has no pain at this time, so Motrin helped her. Also the blood pressure is better. No nausea or vomiting at this time either. She has to go home. She refuses the feeding tube. She has chronic gastroparesis, uncontrolled diabetes which is better, seizure disorder, and chronic pain. MEDICATIONS: She is going home on her medications. All the prescriptions are written out for her. She has Cozaar, Cymbalta, Ecotrin, erythromycin for [facility] care. Keppra, Levemir 6 units at night time, MiraLax Protonix Tylenol, Motrin, which is ordered. LABORATORY DATA: With a 136 sugar, the less blood sugar was very good, 138 sodium, potassium 3.8, BUN 12, creatinine 0.8. GFR is greater than 60. Calcium is 8.9, total bilirubin is 0.3, AST is 27, ALT is 33, alkaline phosphatase is 74, total protein is 5.8. Albumin is 3.2, white count 7.8, hemoglobin 12.8, hematocrit 36.9, platelets 252. ASSESSMENT AND PLAN: She had multiple issues, severe gastroparesis, diabetes, abdominal pain. 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 She has seizure. She will be on Keppra. Prescriptions are given. Diet was given. Instructions were given once again. Hope that she will go home today. Discharge to be put in. Blood pressure was good. Josafat Dent DO
--- NOTE | 2017-02-02 11:52 | CP.PCM.PN ---
Subjective - Date & Time of Evaluation Date of Evaluation: 02/02/17 Time of Evaluation: 09:15 - Subjective Subjective: Comfortable in bed, not in distress, afebrile, no abdominal pain currently. Objective - Vital Signs/Intake and Output Vital Signs (last 24 hours): Temp Pulse Resp BP Pulse Ox 97.8 F 78 20 130/81 98 02/02/17 06:00 02/02/17 06:00 02/02/17 06:00 02/02/17 06:00 02/01/17 06:00 Intake and Output: 02/02/17 02/02/17 06:59 18:59 Intake Total 120 Balance 120 - Medications Medications: Current Medications Acetaminophen (Tylenol 325mg Tab) 650 mg PO Q6H PRN PRN Reason: Pain, moderate (4-7) Last Admin: 01/31/17 08:33 Dose: 650 mg Aspirin (Ecotrin) 81 mg PO DAILY [facility] Last Admin: 02/01/17 10:54 Dose: 81 mg Duloxetine HCl (Cymbalta) 60 mg PO DAILY [facility] Last Admin: 02/01/17 10:54 Dose: 60 mg Erythromycin (Erythromycin) 250 mg PO Q8 [facility] PRN Reason: Protocol Stop: 04/29/17 22:01 Last Admin: 02/01/17 22:18 Dose: 250 mg Sodium Chloride (Sodium Chloride 0.45%) 1,000 mls @ 40 mls/hr IV .Q24H [facility] Last Admin: 02/01/17 20:25 Dose: Not Given Insulin Detemir (Levemir) 6 unit SC HS [facility] Last Admin: 02/01/17 22:19 Dose: 6 unit Insulin Human Lispro (Humalog Low) 0 units SC ACHS [facility] PRN Reason: Protocol Last Admin: 02/02/17 08:20 Dose: Not Given Levetiracetam (Keppra) 500 mg PO BID [facility] Last Admin: 02/01/17 18:13 Dose: 500 mg Losartan Potassium (Cozaar) 100 mg PO DAILY [facility] Last Admin: 02/01/17 10:53 Dose: 100 mg Ondansetron HCl (Zofran Inj) 4 mg IVP Q4 PRN PRN Reason: Nausea/Vomiting Last Admin: 02/01/17 14:58 Dose: 4 mg Pantoprazole Sodium (Protonix Ec Tab) 40 mg PO 0600 [facility] Last Admin: 02/02/17 05:44 Dose: 40 mg Polyethylene Glycol (Miralax) 17 gm PO DAILY [facility] Last Admin: 02/01/17 10:54 Dose: Not Given Tramadol HCl (Ultram) 100 mg PO Q6H PRN PRN Reason: pain Last Admin: 02/01/17 22:17 Dose: 100 mg - Labs Labs: 02/01/17 05:30 02/01/17 05:30 PT 10.7 Seconds (9.9-11.8) 01/27/17 18:34 INR 0.99 (0.93-1.08) 01/27/17 18:34 APTT 24.7 Seconds (23.7-30.8) 01/27/17 18:34 - Constitutional Appears: Non-toxic, No Acute Distress - Head Exam Head Exam: NORMAL INSPECTION - ENT Exam ENT Exam: Mucous Membranes Moist - Neck Exam Neck Exam: absent: Meningismus - Respiratory Exam Respiratory Exam: Decreased Breath Sounds - Cardiovascular Exam Cardiovascular Exam: +S1, +S2 - GI/Abdominal Exam GI & Abdominal Exam: Soft. absent: Tenderness Assessment and Plan - Assessment and Plan (Free Text) Plan: Assessment S/P Systemic Inflammatory Response Syndrome, due to hyperosmolar, hyperglycemic state, with no evidence of sepsis identified Gastroparesis with continued abdominal pain - now on erythromycin HTN DM gastroparesis history of TIA history of esophageal ulcers S/P cholecystectomy S/P S/P hysterectomy S/P right foot partial amputation Plan continue erythromycin as per GI
[2017-02-02 12:13] VITALS: RESP 18; TEMP 98.2
--- NOTE | 2017-02-02 13:17 | PN ---
DATE: 02/02/2017 CARDIOLOGY FOLLOWUP NOTE SUBJECTIVE: The patient is in bed complaining of abdominal pain which is chronic. PHYSICAL EXAMINATION VITAL SIGNS: Blood pressure is 130/81 and heart rate in the 70s. NECK: Negative JVD. LUNGS: Without rales. HEART: Reveals S1 and S2. EXTREMITIES: Without edema. LABORATORY DATA: Were not done today, other than a glucose of 136. IMPRESSION 1. Abdominal pain. 2. Diabetes mellitus. 3. History of respiratory distress. 4. Gastroparesis. PLAN: Given these findings, there are no active cardiac issues right now, we will DC telemetry today. Carter Farmer MD
[2017-02-02 14:26] VITALS: BP 160/90; PULSE 80
[2017-02-02] MEDS: Sodium Chloride 0.45% 1,000 ML IV SCH (14:27)
--- NOTE | 2017-02-02 15:33 | PN ---
DATE: ENDOCRINOLOGY FOLLOWUP NOTE LOCATION: Room 261. SUBJECTIVE: This is a 56-year-old female with recent uncontrolled type 2 insulin requiring diabetes, now being followed closely for metabolic management. She has been advanced from a liquid diet to a solid food now at this time and tolerating slightly fairly well as noted. She continues to have dyspepsia and vague upper abdominal pain as noted. She is also undergoing a GI workup as noted. OBJECTIVE: The latest glucose levels have ranged from 136 to 150 and 195 mg/dL today. It was 257 to 304 last night as noted. Her latest chemistry showed a BUN of 12, sodium of 138, potassium of 3.8, chloride of 100, CO2 of 35, glucose of 95, and creatinine of 0.8. IMPRESSION AND PLAN: So at this time, we will continue the low-dose basal insulin given as Levemir at 6 units subcutaneously at bedtime daily as ordered. We will continue the low dose correction scale with a Humalog insulin as ordered. If her oral intake improved and hyperglycemic levels supervened, then we will start her back on a more physiologic basal and bolus insulin dose combination as ordered. We will obtain serum chemistry and supplement accordingly as needed. We will follow. Tita Coe MD
--- NOTE | 2017-02-02 20:02 | CON ---
DATE: 02/02/2017 HISTORY OF PRESENT ILLNESS: The patient is a 56-year-old female with multiple medical issues including diabetic neuropathy, also CVA, diabetes. The patient was brought to the emergency department initially after the patient was found unresponsive. Psychiatric consult was called for evaluation of possible major depressive disorder and most likely a psychiatric transfer and psychiatric admission. This communications writer is very familiar with the patient from the previous admission on the medical side when this communications writer was consulted on the case. Last interaction was on 01/01/2017. The patient used to be very independent and based on the history, the patient had partial amputation of her right toes. The patient also has history of depression and anxiety. The patient was given referral last admission to be followed up with Jj Orlando in [facility]. Back then, the patient was refusing psychiatric admission. The patient was seen and examined today. The patient presented to be depressed, hopeless, very tearful. The patient reported that she feels this way for months. The patient reported that she lost her independency because of the medical issues. 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 The patient sometimes had a feeling that she wants to be , but denied thoughts of killing herself or others. The patient reported that she cannot sleep at the nighttime, feeling constantly anxious. The patient had history of gastroparesis and she has a lot of pain in her stomach, that is why she does not want to eat. At the same time whenever she wants to eat, she feels anxious that she would have pain. The patient denied history of being abused. The patient denied hearing voices. Denied seeing things. Denied any substance abuse. Collateral information was obtained from the patient's daughter who is next to the patient. Medication list obtained from them. The patient's medication list is as; gabapentin 100 mg three times a day, lisinopril 10 mg daily, labetalol 200 mg daily, aspirin 81 mg a day, isosorbide mononitrate extended release 30 mg daily, furosemide 20 mg daily, Librax 5/2.5 mg, omeprazole 40 mg daily, Cymbalta 60 mg. The patient seems to be not improving on Cymbalta and will start to decrease the doses. The patient also is on Reglan 5 mg twice a day. The patient also is on Humalog as well as Levemir and amitriptyline 10 mg at the nighttime. The patient also said that she was not followed up with outpatient psychiatrist because she was feeling amotivated and depressed. PHYSICAL EXAMINATION: VITAL SIGNS: This communications writer reviewed vital signs that seem to be stable. Temperature 98.2, pulse is 80, blood pressure 160/90, respirations are 18, oxygen saturation is 98-100%. MEDICATIONS: As above, but the patient is on erythromycin and Keppra. LABORATORY DATA: Reviewed. Most recently WBC's of 7.8, hemoglobin is 12.8, hematocrit 36.9. Chemistry reviewed most recent was from yesterday. Urinalysis was done on 01/27/2017.. The patient was found with moderate blood, ketones, the rest within normal limits. Toxicology, benzodiazepines are positive. The gait was evaluated as the patient was taking some benzodiazepines, the patient denied. PAST PSYCHIATRIC HISTORY: The patient was seen by psychiatrist in the community, but it was a long time ago. Right now, the patient does not have psychiatrist and primary care physician was prescribing Cymbalta as well as amitriptyline and Neurontin. MENTAL STATUS EXAMINATION: The patient presented to be thin built, very depressed, tearful, poor personal hygiene. The patient looks much more older than her chronological age, was tearful during the interview. Flat affect. Mood described as hopeless. Affect was mood congruent. Thought process seems to be coherent and goal directed. Thought content, the patient denied visual, auditory or tactile hallucinations. The patient has passive wish to be , but denied thoughts of killing herself or others. Insight and judgment seem to be fair. Impulses are well-controlled. IMPRESSION: Rule out major depressive disorder, rule out mood disorder due to general medical condition, rule out anxiety disorder due to general medical condition. The patient had multiple medical issues including status post systemic inflammatory response syndrome due with no evidence of sepsis, gastroparesis, hypertension, diabetes, history of transient ischemic attacks, history of esophageal ulcers, right foot partial amputation. PLAN: The patient is willing to sign consent for treatment. Considering the fact that the patient was not improving on Cymbalta, this communications writer would discontinue that medication. Maybe Prozac or Paxil will be a good choice for the patient. Neurontin will be increased to 300 mg three times a day. The patient also will have medication for insomnia, Remeron. The patient signed consent for treatment and was transferred to the Psychiatric Inpatient unit today. Should you have any questions, give me a call back. Thank you very much for letting me participate in the care of your patient. At the present moment, the patient needs further evaluation and stabilization. The patient was not functioning well. Suicidal ideation, but no plan, needs medication to be adjusted. The patient meets the criteria for voluntary admission. Lidia Napier MD
== END 2017-02-02 15:26 | DRG 638 ==
LOC: ED 18:20 → ERH 19:41 → CCU 22:38 → 2RNO 01-30 14:35
PROVIDERS: ADMIT Family Medicine; ATTEND Family Medicine
PROC: 5A09357 Assistance with Respiratory Ventilation, Less than 24 Consecutive Hours, Continuous Positive Airway Pressure (ICD-10-PCS; principal; 2017-01-29)
DX: E13.10 Other specified diabetes mellitus with ketoacidosis without coma (principal); K31.84 Gastroparesis; G40.909 Epilepsy, unspecified, not intractable, without status epilepticus; E87.2 Acidosis; I11.9 Hypertensive heart disease without heart failure; I27.2 Other secondary pulmonary hypertension; E11.43 Type 2 diabetes mellitus with diabetic autonomic (poly)neuropathy; G89.29 Other chronic pain; K20.9 Esophagitis, unspecified; I95.1 Orthostatic hypotension; F32.9 Major depressive disorder, single episode, unspecified; E78.5 Hyperlipidemia, unspecified; E11.42 Type 2 diabetes mellitus with diabetic polyneuropathy; E11.319 Type 2 diabetes mellitus with unspecified diabetic retinopathy without macular edema; R33.9 Retention of urine, unspecified; K59.00 Constipation, unspecified; F41.9 Anxiety disorder, unspecified; Z91.19 Patient's noncompliance with other medical treatment and regimen; Z79.891 Long term (current) use of opiate analgesic; Z79.4 Long term (current) use of insulin; Z79.82 Long term (current) use of aspirin; Z86.73 Personal history of transient ischemic attack (TIA), and cerebral infarction without residual deficits; Z90.710 Acquired absence of both cervix and uterus; Z89.431 Acquired absence of right foot; Z87.19 Personal history of other diseases of the digestive system; Z90.49 Acquired absence of other specified parts of digestive tract; Z83.3 Family history of diabetes mellitus; Z82.49 Family history of ischemic heart disease and other diseases of the circulatory system; Z80.0 Family history of malignant neoplasm of digestive organs

== ENCOUNTER 2017-02-02 15:37 | Inpatient (IN) | payer BC ==
[2017-02-02 16:07] VITALS: BMI 22.8
[2017-02-02] MEDS ORDERED: Magnesium Hydroxide Susp 30 ml UD PO PRN (16:39)
[2017-02-02] MEDS: Insulin Reg-LOW-Coverage SC SCH ×2 (17:29→22:18)
--- NOTE | 2017-02-02 18:39 | PCM.BM ---
<Angelina Moss - Last Filed: 02/02/17 18:35> Treatment Plan Problems - Problems identified on initial assessmt ANXIETY Date Initiated: 02/02/17 Time Initiated: 18:00 Assessment reference: NA Status: Active Priority: 1 DEPRESSION Date Initiated: 02/02/17 Time Initiated: 18:00 Assessment reference: NA Priority: 2 Treatment assets and liabiliti Patient Assests: cooperative, good support system, negotiates basic needs, cognitively intact Patient Liabilities: physical pain, dietary restrictions - Milieu Protocol Maintain good personal hygiene: every shift Encourage regular showers, every shift Remind patient to perform daily oral care, every shift Assist patient to perform ADL's Maintain personal safety: every shift Educate patient to report safety concerns to staff, every shift Monitor environment for contraband/sharps Medication safety: Monitor for expected outcome, potential side effects: every shift, Assess barriers to learning: every shift, Assess readiness for medication education: every shift Discharge/Continuing Care - Education Needs Education Needs: Patient Medication, Patient Diagnosis/Disease Process, Patient Coping Skills, Patient Placement options, Patient Community resources, Patient Activities of Daily Living, Patient Pain, Patient Nutrition, Patient Uses of Medical Equipment, Patient Health Practices/Safety, Patient Personal Hygiene/ Grooming, Patient Aftercare Safety Plan - Discharge Discharge Criteria: Tolerates medication w/o severe side effects, Free of Suicidal thoughts, Normal sleep pattern, Ability to care for self, Reduction of target symptoms Discharge to:: Home - Treatment Team Participation Discussed with Family/SO: Yes <Jen Burden - Last Filed: 02/03/17 15:47> Family Contact Family involvement: Family/SO is involved Family contact: Patient agrees to contact <Lidia Napier - Last Filed: 02/03/17 17:47> - Diagnosis (1) MDD (major depressive disorder) Status: Acute Interventions: 02/03/17 17:46 Psychoeducation Psychopharmacology/adjustment of medications as needed/ monitoring possible side effects Evaluate pt on daily basis Compliance with medications and follow up appointments Suicide and homicide risk assessment and prevention Relapse prevention Reduction of symptoms Improve functional status Family intervention As outpatient: cognitive behavioral therapy/interpersonal psychotherapy/ psychodynamic psychotherapy/problem-solving therapy (2) LAUREN (generalized anxiety disorder) Status: Acute Interventions: 02/03/17 17:46 Psychoeducation Psychopharmacology/adjustment of medications as needed/ monitoring possible side effects Evaluate pt on daily basis Compliance with medications and follow up appointments Suicide and homicide risk assessment and prevention, coping strategies, safety plan Reduction of symptoms Relaxation techniques and breathing exercises Improve functional status Family intervention As outpatient: cognitive behavioral therapy (3) 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
[2017-02-02] MEDS: Insulin Detemir 100 units/ml Vial (Levemir) SC SCH (22:18)
[2017-02-03 07:52] LABS: CHOLESTEROL 142 mg/dL (130-200)
[2017-02-03] MEDS: Insulin Reg-LOW-Coverage SC SCH ×4 (08:00→22:23)
[2017-02-03] MEDS: Pantoprazole 40 mg EC Tab PO SCH (08:11)
[2017-02-03 08:13] LABS: FREE T4 1.3 ng/dL (0.78-2.19)
[2017-02-03 08:27] LABS: THYROID STIMULATING HORMONE 0.35 mIU/mL (0.46-4.68)
[2017-02-03] MEDS: POLYETHYLENE GLYCOL 3350 17 GM/Dose PACKET PO SCH (09:05)
--- NOTE | 2017-02-03 14:53 | PCM.PSYCH ---
Initial Psychiatric Evaluation - Initial Psychiatric Evaluation Type of Admission: Voluntary Legal Status: Capacity (patient has capacity to sign consent for treatment) Chief Complaint (in patient's own words): "been feeling very depressed, I thought it would be better off without me, my family will be not suffering, I am burden for my family" Patient's Reaction to Hospitalization: patient was transferred from the medical floor for evaluation of worsening of depression, hopelessness, passive wish to be , patient needs further evaluation and stabilization, does not have psychiatrist in the community, patient was not able to contract for safety needs to stay in the hospital psychiatric inpatient unit for further observation and stabilization. History of Present Illness and Precipitating Events: shortly patient is 56 year old female, reported history of depression and anxiety, multiple medical issues, patient was initially seen on the medical side , patient was found to be depressed, hopeless, had passive wish to be , was not able to contract for safety, needs further evaluation and stabilization, medication initiation and titration. Please see consultation note on the medical side. Patient was seen today at the treatment team meeting, presented with improved personal hygiene, acceptable ADLs. Patient reported that she has multiple medical issues that's why she feels very depressed, patient also feels depressed about losing her independence, patient had surgery for partial right foot amputation, patient has gastroparesis, severe diabetes, patient also has diabetes neuropathy. All of the medical issues making pt feel dependant on her family. as per patient she has severe abdominal pain, was not able to tolerate food, patient was feeling very anxious before eating, lost significant amount of weight. pt also reported that she was not able to sleep, was "crying all day long", difficulties to concentrate, memory problems. pt denied v/a/t hallucinations, denied paranoid ideation, pt does not appear to be psychotic. pt denied using drugs, denied alcohol consumption. no manic symptoms elicited. past psych h/o: pt reported that she was taking cymbalta, which was not helping her, denied previous psych admissions, denied suicidal attempts. medical h/o: see HPI medical note, DM, gastroparesis, right partial foot amputation, seizures social h/o: , two daughters, who are supportive, pt is on disability. family h/o: denied Lab Results 02/03/17 07:30: Free T4 1.30, TSH 3rd Generation 0.35 L 02/03/17 07:30: Triglycerides 111, Cholesterol 142, LDL Cholesterol Direct 63, HDL Cholesterol 56 Vital Signs Temp Pulse Resp BP 02/03/17 07:34 97.8 F 84 20 74/52 L 02/02/17 16:49 97.8 F 82 18 144/91 H Current Medications: Active Medications Generic Name Dose Route Start Last Admin Trade Name Freq PRN Reason Stop Dose Admin Acetaminophen 650 mg 02/02/17 16:39 Tylenol 325mg Tab PO Q4 PRN Pain, Mild (1-3) Al Hydrox/Mg Hydrox/Simethicone 30 ml 02/02/17 16:39 Maalox Plus 30 Ml PO DAILY PRN Upset Stomach Aspirin 81 mg 02/03/17 08:00 02/03/17 09:06 Ecotrin PO 81 mg DAILY PATTI Administration Duloxetine HCl 40 mg 02/03/17 08:00 02/03/17 09:06 Cymbalta PO 40 mg DAILY PATTI Administration Erythromycin 250 mg 02/03/17 06:00 02/03/17 09:07 Erythromycin PO 250 mg 0600,1400,2200 PATTI Administration Protocol Fluoxetine HCl 10 mg 02/03/17 08:00 02/03/17 09:07 Prozac PO 10 mg DAILY PATTI Administration Gabapentin 400 mg 02/02/17 18:00 02/03/17 12:00 Neurontin PO 400 mg TID PATTI Administration Protocol Insulin Detemir 6 unit 02/02/17 22:00 02/02/17 22:18 Levemir SC 6 unit HS PATTI Administration Insulin Human Regular 0 units 02/02/17 16:30 02/03/17 12:00 Humulin R Low SC 4 units ACHS PATTI Administration Protocol Levetiracetam 500 mg 02/02/17 16:15 02/03/17 09:06 Keppra PO 500 mg BID PATTI Administration Lorazepam 0.5 mg 02/02/17 22:00 02/03/17 09:07 Ativan PO 0.5 mg AMHS PATTI Administration Protocol Losartan Potassium 100 mg 02/03/17 08:00 02/03/17 09:05 Cozaar PO 100 mg DAILY PATTI Administration Magnesium Hydroxide 30 ml 02/02/17 16:39 Milk Of Magnesia PO DAILY PRN Constipation Mirtazapine 7.5 mg 02/02/17 22:00 02/02/17 22:19 Remeron PO 7.5 mg HS PATTI Administration Ondansetron HCl 4 mg 02/02/17 16:17 Zofran Inj IVP Q4H PRN Nausea/Vomiting Pantoprazole Sodium 40 mg 02/03/17 06:00 02/03/17 08:11 Protonix Ec Tab PO 40 mg 0600 PATTI Administration Polyethylene Glycol 17 gm 02/03/17 08:00 02/03/17 09:05 Miralax PO 17 gm DAILY PATTI Administration Tramadol HCl 100 mg 02/02/17 16:22 02/03/17 12:56 Ultram PO 100 mg Q6H PRN Administration Pain, moderate (4-7) Past Psychiatric History - Past Psychiatric History Previous Treatment History: None Prior Professional Help: see HPI Prior Psychiatric Treatment: see HPI At [facility]: see HPI Duration: see HPI Nature of Treatment: see HPI Explanation of prior treatment: see HPI History of Abuse: see HPI History of ETOH/Drug Use: see HPI History of Family Illness: see HPI Pertinent Medical Hx (Current Medical&Sleep Prob, Allergies): Allergies Allergy/AdvReac Type Severity Reaction Status Date / Time No Known Allergies Allergy Verified 02/03/17 03:11 Lisinopril [Prinivil] 10 mg PO DAILY 09/23/15 Metoclopramide [Reglan] 5 mg PO QID 09/23/15 DULoxetine [Cymbalta] 60 mg PO HS 07/13/16 Insulin Lispro [humALOG] 0 units SC AC 07/13/16 Omeprazole 40 mg PO DAILY 07/13/16 Aspirin [Ecotrin] 81 mg PO DAILY #30 tabec 08/05/16 Furosemide [Lasix] 20 tab PO DAILY 11/28/16 Isosorbide Mononitrate [Isosorbide Mononitrate ER] 30 mg PO DAILY 11/28/16 Labetalol [Trandate] 200 mg PO BID 11/28/16 Midodrine [Proamatine] 2.5 mg PO DAILY 11/28/16 Amitriptyline [Elavil] 10 mg PO DAILY 01/27/17 Gabapentin 100 mg PO TID 01/27/17 Insulin Detemir [Levemir] 32 units SUBCUT HS 01/27/17 chlordiazePOXIDE-Clinidium [Librax 5 MG-2.5 MG] 1 tab PO BID 01/27/17 DULoxetine [Cymbalta] 20 mg PO QAM 01/28/17 traMADol [Ultram] 100 mg PO Q6H PRN 01/28/17 Erythromycin [Erythocin] 250 mg PO Q8H #120 tab 02/02/17 Losartan Potassium [Cozaar] 100 mg PO DAILY #30 tablet 02/02/17 Ondansetron HCl [Zofran] 4 mg PO Q4H #120 tablet 02/02/17 Polyethylene Glycol 3350 [Miralax] 17 gm PO DAILY #1 ml 02/02/17 levETIRAcetam [Keppra] 500 mg PO BID #60 tab 02/02/17 Review of Systems - Review of Systems Systems not reviewed;Unavailable: Acuity of Condition - EENT Eyes: As Per HPI Ears: As Per HPI Nose/Mouth/Throat: As Per HPI - Breasts Breasts: As Per HPI - Cardiovascular Cardiovascular: As Per HPI - Respiratory Respiratory: As Per HPI - Gastrointestinal Gastrointestinal: As Per HPI - Genitourinary Genitourinary: As Per HPI - Reproductive: Female Reproductive:Female: As Per HPI - Menstruation Menstruation: As Per HPI - Musculoskeletal Musculoskeletal: As Par HPI - Integumentary Integumentary: As Per HPI - Neurological Neurological: As Per HPI - Psychiatric Psychiatric: As Per HPI - Endocrine Endocrine: As Per HPI - Hematologic/Lymphatic Hematologic: As Per HPI Mental Status Examination - Personal Presentation Personal Presentation: Looks older than stated age - Affect Affect: Flat (and tearful) - Motor Activity Motor Activity: Calm, Psychomotor Retardation - Reliability in Providing Information Reliability in Providing Information: Fair - Speech Speech: Organized - Mood Mood: Depressed, Anxious - Formal Thought Process Formal Thought Process: No Impairment - Obsessions/Compulsions Obsessions: None Compulsions: None - Cognitive Functions Orientation: Person, Place, Situation, Time Sensorium: Alert Attention/Concentration: Easily distracted Abstract Thinking: As evidence by abstract perception of proverbs Estimate of Intelligence: Average Judgement: Intact, as evidence by: Insight regarding need for hospitalization - Risk Risk: Diminished functioning - Strength & Assets Inventory Strength & Assets Inventory: Intelligence, Family support, Education, Employment history, Skills, Interests/hobbies, Spiritual affiliations, Cooperative - Limitations Limitations: Other (multiple medical issues) DSM 5 DX - DSM 5 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 Generalized anxiety disorder Panic disorder Rule out mood disorder and anxiety disorder due to general medical condition - Recommended/Plan of Treatment Treatment Recommendations and Plan of Treatment: milieu, structure, supportive therapy Cymbalta will be tapered down to the will be 40 mg a day, (pt was on 60mg d) We will increase Neurontin to 300 mg 3 times a day for diabetic neuropathy and most stabilization Prozac was started 10 mg a day for depression and anxiety Remeron will be started 7.5 mg at the nighttime for insomnia for depression patient is on Keppra for seizures Errythromycine for gastroparesis Medical evaluation will be called Family involvement pier worker evaluation Possible day treatment program after discharge Will monitor closely Projected ELOS: 7 days Prognosis: guarded Discharge Plan and Discharge Criteria: Pt will be not depressed or manic, will be more hopeful, will be not psychotic or anxious, will be not having thoughts of harming self or others, will be tolerating medications well, will not have major side effects, will be able to function, will not pose threat to self or others. - Smoking Cessation Smoking Cessation Initiated: No Reason for not providing: patient denied smoking
--- NOTE | 2017-02-03 15:27 | CP.PCM.PCO ---
Addendum Addendum: 02/03/17 15:16 Pee Daugherty D.O. PGY-2, D.O. On Duty (D.O.O.D.) Received page from organisational psychologist that patient was not very responsive. Patient was seen and evaluated at bedside. 56 year old female in the psych unit. Patient was resting comfortably in her bed in room 519-1. Patient easily arousable and bursts out "I'm fine, I'm fine, god I'm just sleepy!" Patient states that she feels "weak." Nursing staff reports that patient said she was dizzy. Discussed with RN, patient most recently had 100mg of Ultram for the first time about 2 hours ago for pain. Vitals: BP 122/77 HR 88 RR 16 Blood sugar at 1200 = 319, received 4 units of insulin per sliding scale - low Patient mentally coherent, moving all extremities, speaking clearly. Normocardic , normopneic, comfortably asleep and opening eyes on command. Appears well hydrated, well groomed. No signs of infection or distress or otherwise clearly notable. This episode of sleepiness appears secondary to ultram. Discussed with Dr. Dent PMD and RN, will discontinue ultram and they will get new vitals in 1 hour and call back for any other concerns. Dr. Dat Reddy.
--- NOTE | 2017-02-03 20:52 | CON ---
DATE: For Lidia Napier MD in psychiatric floor. HISTORY OF PRESENT ILLNESS: I know her very well from status post hospital stay. She is a 56-year-old female who had a history in the hospital side of sepsis, seizures, gastroparesis, abdominal pain, unable to eat, hypertension, and she got very anxious and very depressed and psychiatrist took her to the psych floor where she was crying upon discharge. The plan from GI was either to do a feeding tube or this is the best she can do until the medicines kick in and help her stomach. She got very depressed and now she is on 5th floor in the psych area. She is a 56-year-old female who is now in psychiatric floor, is more responsive and comfortable right now, smiling and in better spirits. PAST MEDICAL HISTORY: She has a past medical history of gastroparesis, sepsis, hypertension, CVA, diabetes, TIA, bilateral cataract and wilbert on the back of her head from a fall. She had a lesion in the esophagus. She has diabetic gastroparesis, depression, amputation here for the right foot. FAMILY HISTORY: There is hypertension and diabetes in the family members. SOCIAL HISTORY: Never smoke. No drugs. No alcohol. ALLERGIES: NO KNOWN DRUG ALLERGIES. PSYCHIATRIC MEDICATIONS: She is on Prinivil, Reglan, Cymbalta, insulin, omeprazole, Lasix, Imdur, Trandate, Primatene, Elavil, gabapentin, Levemir, Librax, erythromycin and psychiatric medications. REVIEW OF SYSTEMS: She was very depressed and crying. No acute vision or hearing changes. She was unresponsive for a while. She is much better now. No chest pain. No shortness of breath at this time. No abdominal pain. No nausea or vomiting at this time. She actually ate although a bit and kept it down, which is good for her. She was hypotensive, but now she is better. No headaches or dizziness. No sweating. She was depressed and anxious. PHYSICAL EXAMINATION: VITAL SIGNS: She has 97.8 temperature, 84 pulse, 74/52 blood pressure, 20 respiratory rate and 98% O2 sat on room air. HEENT: Her head is atraumatic, normocephalic. Extraocular muscles are intact. Pupils are equal and reactive to light and accommodation. Throat is moist. NECK: Supple. HEART: Regular rate. Normal S1 and S2. LUNGS: Decreased breath sounds, but clear to auscultation. ABDOMEN: Soft and nontender. Positive bowel sounds. At this time, she feels very good for belly, multiple abdominal scars. EXTREMITIES: No edema. She has surgery of the foot. NEUROLOGIC: GCS is 15. Cranial nerves II through XII grossly intact. Speech is normal at this time. She is weak. Alert, oriented x3. She is depressed. No palpable appreciated lymphadenopathy. Thyroid midline. LABORATORY DATA: She had a few tests done so far in the psych floor. She has 111 triglycerides, 142 cholesterol, TSH is 0.35. I ordered lab for tomorrow. I will repeat thyroid, could be just from stress. Continue to follow as per psychiatry. MEDICATIONS: She is currently on Zofran, Ultram, Tylenol, Remeron, Prozac, Protonix, Neurontin, MiraLAX, milk of magnesia, Levemir, Keppra, insulin, erythromycin, Ecotrin, Cymbalta, Cozaar, and Ativan. PLAN: Hopefully, she will do very well. We will follow closely. She might need GI again to follow. Josafat Dent DO MTDD
[2017-02-03] MEDS: Insulin Detemir 100 units/ml Vial (Levemir) SC SCH (22:23)
[2017-02-04 08:21] LABS: ALB/GLOB RATIO 1.4 (1.1-1.8); ALKALINE PHOSPHATASE 66 U/L (38-126); ALT/SGPT 20 U/L (7-56); AST/SGOT 24 U/L (14-36); BILIRUBIN,TOTAL 0.3 mg/dL (0.2-1.3); BLOOD UREA NITROGEN 33 mg/dL (7-21); CALCIUM 9.2 mg/dL (8.4-10.5); CARBON DIOXIDE 33 mmol/L (21-33); CHLORIDE 101 mmol/L (98-107); GFR AFRICAN-AMERICAN > 60; GLUCOSE,RANDOM 83 mg/dL (70-110); POTASSIUM 4.1 mmol/L (3.6-5.0); SODIUM 141 mmol/L (132-148); TOTAL PROTEIN 5.9 g/dL (5.8-8.3)
[2017-02-04 08:34] LABS: HEMATOCRIT 37.5 % (36.0-48.0); MEAN CELL VOLUME 81.5 fl (80.0-105.0); MEAN CORPUSCULAR HGB CONC 34.4 g/dl (31.0-37.0); MEAN PLATELET VOLUME 9.7 fl (7.0-11.0); RED CELL DISTRIBUTION WIDTH 13.1 % (11.5-14.5); WHITE BLOOD COUNT 6.9 10^3/ul (4.5-11.0)
[2017-02-04] MEDS: POLYETHYLENE GLYCOL 3350 17 GM/Dose PACKET PO SCH (09:24)
[2017-02-04] MEDS: Pantoprazole 40 mg EC Tab PO SCH (09:25)
[2017-02-04] MEDS: Insulin Reg-LOW-Coverage SC SCH ×4 (09:33→21:53)
--- NOTE | 2017-02-04 12:41 | PN ---
SUBJECTIVE: I saw the patient resting comfortably in bed. She was slept fairly well last night. She tells me she is eating better. No abdominal pain. No nausea or vomiting and may be better with her mood. She is comfortable at this time. She is on Ativan, Cozaar, Cymbalta, Ecotrin, erythromycin for the abdomen, insulin coverage, Keppra, Levemir, magnesium, milk of magnesia, MiraLax, Neurontin, Protonix, Prozac, Remeron, Tylenol, and Zofran. She tells me no more nauseousness and she is eating. PHYSICAL EXAMINATION: VITAL SIGNS: 97.6 temperature, pulse, 87/44 blood pressure, 20 respiratory rate. HEENT: Head is atraumatic, normocephalic. HEART: Regular rate. LUNGS: Clear to auscultation. ABDOMEN: Soft. Positive bowel sounds. Nontender. EXTREMITIES: No edema. LABORATORY DATA: Pending. Last blood sugar was 306. TSH is 0.35 the other day. nonreactive. Labs are ordered for today, they are pending. PLAN: I will make adjustments according to the labs. Continue aggressive treatment and care as per psychiatry. She was in the hospital for sepsis, seizures, gastroparesis, abdominal pain and she seems to be doing much better. Josafat Dent DO MTDSumi
--- NOTE | 2017-02-04 17:43 | PCM.PYCHPN ---
Psychiatric Progress Note - Psychiatric Progress Note Patient seen today, length of contact: 30 minutes Patient Chief Complaint: "been feeling very depressed, but now I want to feel better" Problems Identified/Issues Discussed: Suicide/ homicide prevention, past psychiatric h/o, current psychiatric symptoms , medical problems, risk/benefits and alternatives of medications, medications compliance, coping strategies, substance abuse h/o, relapse prevention, importance of follow up with psychiatrist and therapist, discharge plan. Medical Problems: see HPI Diagnostic Results: 02/04/17 07:45 02/04/17 07:45 Lab Results 02/04/17 16:28: POC Glucose (mg/dL) 240 H 02/04/17 11:34: POC Glucose (mg/dL) 193 H 02/04/17 07:45: TSH 3rd Generation 0.24 L 02/04/17 07:45: Sodium 141, Potassium 4.1, Chloride 101, Carbon Dioxide 33, Anion Gap 11, BUN 33 H, Creatinine 0.9, Est GFR ( Amer) > 60, Est GFR ( Non-Af Amer) > 60, Random Glucose 83, Calcium 9.2, Total Bilirubin 0.3, AST 24, ALT 20, Alkaline Phosphatase 66, Total Protein 5.9, Albumin 3.4, Globulin 2.5, Albumin/Globulin Ratio 1.4 02/04/17 07:45: WBC 6.9, RBC 4.60, Hgb 12.9, Hct 37.5, MCV 81.5, MCH 28.0, MCHC 34.4, RDW 13.1, Plt Count 232, MPV 9.7 02/03/17 21:46: POC Glucose (mg/dL) 306 H 02/03/17 07:30: Free T4 1.30, TSH 3rd Generation 0.35 L 02/03/17 07:30: Triglycerides 111, Cholesterol 142, LDL Cholesterol Direct 63, HDL Cholesterol 56 02/03/17 07:30: RPR Nonreactive Vital Signs Temp Pulse Resp BP 02/04/17 07:48 97.6 F 59 L 20 87/44 L 02/03/17 07:34 97.8 F 84 20 74/52 L 02/02/17 16:49 97.8 F 82 18 144/91 H DSM 5 Symptoms Update: shortly patient is 56 year old female, reported history of depression and anxiety, multiple medical issues, patient was initially seen on the medical side , patient was found to be depressed, hopeless, had passive wish to be , was not able to contract for safety, needs further evaluation and stabilization, medication initiation and titration. Please see consultation note on the medical side. Patient was seen today at the TV area, personal hygiene improved, affect is brighter. Patient reported that she still has episodes of feeling depressed, but she has future oriented plans, patient wants to get better, patient complained that she feels drowsy, other than that patient tolerates medications well. pt denied v/a/t hallucinations, denied paranoid ideation, pt does not appear to be psychotic. no manic symptoms elicited. as per nursing report, patient is compliant with the medications, no behavioral issues, but at times tearful. 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 Generalized anxiety disorder Panic disorder Rule out mood disorder and anxiety disorder due to general medical condition Medication Change: Yes Medical Record Reviewed: Yes Consults ordered or reviewed: mmedical consult appreciated Mental Status Examination - Cognitive Function Orientation: Person, Place, Situation, Time Memory: Intact Attention: Poor Concentration: Poor Association: WNL Fund of Knowledge: WNL - Mood Mood: Depressed, Anxious - Affect Affect: Flat (and tearful) - Formal Thought Process Formal Thought Process: No Impairment - Suicidal Ideation Suicidal Ideation: No - Homicidal Ideation Homicidal Ideation: No Goal/Treatment Plan - Goal/Treatment Plan Need for Continued Stay: Remain at risks for inpatient hospitalization, Severe depression anxiety, Discharge may exacerbated symptoms, Severe functional impairment Progress Toward Problem(s) and Goals/Treatment Plan: milieu, structure, supportive therapy Cymbalta will be tapered down will be 20 mg a day, (pt was on 60mg d) We will increase Neurontin to 300 mg 3 times a day for diabetic neuropathy and most stabilization Prozac 20 mg a day for depression and anxiety Remeron will be started 7.5 mg at the nighttime for insomnia for depression patient is on Keppra for seizures Errythromycine for gastroparesis Medical evaluation will be called Family involvement wardrobe specialty worker evaluation Possible day treatment program after discharge Will monitor closely Estimated Date of D/C: 02/11/17 - Smoking Cessation Smoking Cessation Initiated: No
[2017-02-04] MEDS: Insulin Detemir 100 units/ml Vial (Levemir) SC SCH (21:53)
[2017-02-05] MEDS: Pantoprazole 40 mg EC Tab PO SCH (08:45)
[2017-02-05] MEDS: Insulin Reg-LOW-Coverage SC SCH ×2 (08:54→11:49)
[2017-02-05] MEDS: POLYETHYLENE GLYCOL 3350 17 GM/Dose PACKET PO SCH (08:55)
[2017-02-05] MEDS: Alum-Mag Hydrox-Simethicone Susp (30 mL) PO PRN (11:23)
--- NOTE | 2017-02-05 14:57 | PCM.PYCHPN ---
Psychiatric Progress Note - Psychiatric Progress Note Patient seen today, length of contact: 30 minutes Patient Chief Complaint: "been feeling very depressed, but now I want to feel better, do you have hope for me? because I don't have hope for myself" Problems Identified/Issues Discussed: Suicide/ homicide prevention, past psychiatric h/o, current psychiatric symptoms , medical problems, risk/benefits and alternatives of medications, medications compliance, coping strategies, substance abuse h/o, relapse prevention, importance of follow up with psychiatrist and therapist, discharge plan. Medical Problems: see HPI Diagnostic Results: 02/04/17 07:45 02/04/17 07:45 Lab Results 02/04/17 16:28: POC Glucose (mg/dL) 240 H 02/04/17 11:34: POC Glucose (mg/dL) 193 H 02/04/17 07:45: TSH 3rd Generation 0.24 L 02/04/17 07:45: Sodium 141, Potassium 4.1, Chloride 101, Carbon Dioxide 33, Anion Gap 11, BUN 33 H, Creatinine 0.9, Est GFR ( Amer) > 60, Est GFR ( Non-Af Amer) > 60, Random Glucose 83, Calcium 9.2, Total Bilirubin 0.3, AST 24, ALT 20, Alkaline Phosphatase 66, Total Protein 5.9, Albumin 3.4, Globulin 2.5, Albumin/Globulin Ratio 1.4 02/04/17 07:45: WBC 6.9, RBC 4.60, Hgb 12.9, Hct 37.5, MCV 81.5, MCH 28.0, MCHC 34.4, RDW 13.1, Plt Count 232, MPV 9.7 02/03/17 21:46: POC Glucose (mg/dL) 306 H 02/03/17 07:30: Free T4 1.30, TSH 3rd Generation 0.35 L 02/03/17 07:30: Triglycerides 111, Cholesterol 142, LDL Cholesterol Direct 63, HDL Cholesterol 56 02/03/17 07:30: RPR Nonreactive Vital Signs Temp Pulse Resp BP 02/04/17 07:48 97.6 F 59 L 20 87/44 L 02/03/17 07:34 97.8 F 84 20 74/52 L 02/02/17 16:49 97.8 F 82 18 144/91 H Temp Pulse Resp BP Pulse Ox 97.5 F L 74 20 116/70 02/05/17 07:32 02/05/17 07:32 02/05/17 07:32 02/05/17 07:32 DSM 5 Symptoms Update: shortly patient is 56 year old female, reported history of depression and anxiety, multiple medical issues, patient was initially seen on the medical side , patient was found to be depressed, hopeless, had passive wish to be , was not able to contract for safety, needs further evaluation and stabilization, medication initiation and titration. Please see consultation note on the medical side. 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 Patient has episodes of hopelessness which related mostly to the sever stomach pain (pt has gastroparesis), pt said "I want to be pain free, I want to be happy again". pt then started to cry hysterically, pt was provided with emotional support and empathic listening. pt denied v/a/t hallucinations, denied paranoid ideation, pt does not appear to be psychotic. no manic symptoms elicited. as per nursing report, patient is compliant with the medications, no behavioral issues, but at times tearful. tolerates meds well, no side effects observed or reported, AIMS 0, no eps pt's family visiting pt on daily basis. 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 Generalized anxiety disorder Panic disorder Rule out mood disorder and anxiety disorder due to general medical condition Medication Change: Yes (cymbalta d/c, prozac increased, neurontin increased) Medical Record Reviewed: Yes Consults ordered or reviewed: medical consult appreciated Mental Status Examination - Cognitive Function Orientation: Person, Place, Situation, Time Memory: Intact Attention: Poor Concentration: Poor Association: WNL Fund of Knowledge: WNL - Mood Mood: Depressed, Anxious - Affect Affect: Flat (and tearful) - Speech Speech: Appropriate - Formal Thought Process Formal Thought Process: No Impairment - Suicidal Ideation Suicidal Ideation: No - Homicidal Ideation Homicidal Ideation: No Goal/Treatment Plan - Goal/Treatment Plan Need for Continued Stay: Remain at risks for inpatient hospitalization, Severe depression anxiety, Discharge may exacerbated symptoms, Severe functional impairment Progress Toward Problem(s) and Goals/Treatment Plan: milieu, structure, supportive therapy Cymbalta d/c We will increase Neurontin to 400 mg 3 times a day for diabetic neuropathy and most stabilization Prozac 30 mg a day for depression and anxiety Remeron 7.5 mg at the nighttime for insomnia for depression patient is on Keppra for seizures Errythromycine for gastroparesis Medical evaluation will be called Family involvement scrap metal processing worker evaluation Possible day treatment program after discharge Will monitor closely Estimated Date of D/C: 02/11/17
[2017-02-05] MEDS: Insulin Lispro 1 UNITS/0.01 ML SC SCH (17:39)
[2017-02-05] MEDS: Insulin Lispro (humaLOG) LOW Coverage SC SCH ×2 (17:40→22:29)
--- NOTE | 2017-02-05 17:56 | PN ---
DATE: SUBJECTIVE: I saw her in the bed on the fifth floor in psychiatric unit. She was resting comfortably in bed. She slept well. She is feeling better. No pain. Also, she is eating and moved her bowels. MEDICATIONS: She is on Ativan, Cozaar, Cymbalta, Ecotrin, erythromycin, insulin, Keppra, Levemir, Maalox, milk of magnesia, Miralax, Neurontin, Protonix, Prozac, Remeron, Tylenol and Zofran. PHYSICAL EXAMINATION: VITAL SIGNS: Temperature 97.5, pulse 74, blood pressure 116/70, respiratory rate 20. HEENT: Head is atraumatic and normocephalic. Throat is moist. NECK: Supple. HEART: Regular rate. LUNGS: Clear to auscultation. ABDOMEN: Soft, nontender, positive bowel sounds. No guarding, no rebound, no CVA tenderness. Much better. EXTREMITIES: Have no edema. Very difficult for a walk due to surgeries of her foot. She is mostly on the wheelchair. LABORATORY DATA: She has 6.9 white count, 12.9 hemoglobin, 232 platelets. Sodium 141, potassium is 4.1, BUN 33, creatinine 0.9, GFR is greater than 60, sugar is 83, calcium is 9.2. Total bilirubin is 0.3, AST is 24, ALT is 20, alkaline phosphatase 66. Total protein is 5.9. TSH is 0.24, worse to I will consult endocrinology, also she needs physical therapy. Continue with aggressive treatment and care for her depression and anxiety. Josafat Dent DO MTDSumi
[2017-02-05] MEDS ORDERED: Insulin Detemir 100 units/ml Vial (Levemir) SC SCH (22:00)
--- NOTE | 2017-02-06 04:31 | CON ---
ENDOCRINOLOGY CONSULT DATE: LOCATION: In the room 519, psychiatry. HISTORY OF PRESENT ILLNESS: This is a 56-year-old female with known history of type 2 insulin-requiring diabetes, now being referred for endocrine evaluation and management. She has been admitted to the psychiatric unit, because of progressively worsening anxiety and depression as noted thereof. PAST MEDICAL HISTORY: As mentioned above, history of type 2 insulin-requiring diabetes on a combination of a basal and bolus insulin regimen at home, using Levemir a dividable dose of 10 to 20 units at bedtime and Humalog also dividable dose of 5 to 10 units before meals as ordered. History of hypertensive cardiovascular disease and dyslipidemia. History of diabetic retinopathy and polyneuropathy. 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 History of diabetic gastroparesis as noted. History of generalized anxiety and depression with previous admissions for major depression as noted. History of prior orthostatic hypotension and was previously on medications as noted. FAMILY HISTORY: Positive for diabetes, and hypertension. SOCIAL HISTORY: The patient has supportive family. No known substance use. REVIEW OF SYSTEMS: As mentioned above. Admits to generalized body weakness with easy fatigability and tiredness, and suboptimal energy level. Also, admits to episodic bouts of dizziness and lightheadedness, worse on the day of admission. No chest pains or palpitations or PND, admits to occasional bouts of shortness of breath especially on exertion. Her oral intake is variable with nausea, dyspepsia, and vague upper abdominal pain. Also admits to lower extremity paresthesia especially nocturnally. PHYSICAL EXAMINATION: GENERAL: This is an average built female in no apparent distress. VITAL SIGNS: Blood pressure 150/90, pulse of 70 beats per minute, regular temperature 98 and respirations 20. HEENT: Head is normocephalic. Eyes; anicteric with pink conjunctivae. Funduscopy not possible at this time. Ears, nose and throat otherwise normal. NECK: Supple. Thyroid gland is normal in size. No carotid bruits or cervical adenopathy. CARDIOPULMONARY: Adynamic precordium, S1 and S2 is rapid and regular. LUNGS: Clear to auscultation. ABDOMEN: Flat and soft with positive bowel sounds. EXTREMITIES: No peripheral edema. Pulses are +2 bilaterally. LABORATORY DATA: Her chemistries showed a BUN of 33, sodium 141, potassium 4.1, chloride 101, CO2 is 33, glucose 83, and creatinine 0.9. Her thyroid studies with a free T4 of 1.30 with a TSH of 0.24 and a repeat level of 0.35. ASSESSMENT: This is a 56-year-old female with uncontrolled and decompensated type 2 insulin requiring diabetes, now being referred for endocrine evaluation and metabolic management. Moreover, she also has abnormal thyroid studies with normal T4 levels on a suppressed TSH level indicative of a so called acute sick euthyroid syndrome, which is temporary and transient and should resolve after clinical condition improve accordingly. PLAN: Plan of management to obtain a comprehensive thyroid hormonal profile to confirm and indicate the presence of underlying thyroid autoimmunity. We will also obtain serial thyroid studies and determine the need for levothyroxine replacement as indicated. We will restart on the much lower dose of basal and bolus insulin regimen with Levemir to be started at 12 unit subcutaneous at bedtime daily to start to night. We will also add Humalog given as 4 units subcutaneous t.i.d. before meals as given. Will titrate incrementally as indicated to optimize metabolic control. We will follow and advise accordingly. Tita Coe MD
[2017-02-06] MEDS: Pantoprazole 40 mg EC Tab PO SCH (06:39)
[2017-02-06 07:57] LABS: ALB/GLOB RATIO 1.5 (1.1-1.8); ALKALINE PHOSPHATASE 80 U/L (38-126); ALT/SGPT 45 U/L (7-56); AST/SGOT 33 U/L (14-36); BILIRUBIN,TOTAL 0.5 mg/dL (0.2-1.3); BLOOD UREA NITROGEN 35 mg/dL (7-21); CALCIUM 10.1 mg/dL (8.4-10.5); CARBON DIOXIDE 37 mmol/L (21-33); CHLORIDE 97 mmol/L (98-107); GFR AFRICAN-AMERICAN > 60; GLUCOSE,RANDOM 206 mg/dL (70-110); POTASSIUM 4.9 mmol/L (3.6-5.0); SODIUM 141 mmol/L (132-148)
[2017-02-06 08:26] LABS: THYROID STIMULATING HORMONE 0.27 mIU/mL (0.46-4.68)
[2017-02-06] MEDS: POLYETHYLENE GLYCOL 3350 17 GM/Dose PACKET PO SCH ×2 (08:51→09:10)
[2017-02-06] MEDS: Insulin Lispro (humaLOG) LOW Coverage SC SCH ×4 (08:54→21:37)
[2017-02-06] MEDS: Insulin Lispro 1 UNITS/0.01 ML SC SCH ×3 (08:56→17:18)
--- NOTE | 2017-02-06 09:02 | PCM.PYCHPN ---
Psychiatric Progress Note - Psychiatric Progress Note Patient seen today, length of contact: 25 minutes Patient Chief Complaint: "doing okay" Problems Identified/Issues Discussed: I reviewed assessment and recent notes. Patient was interviewed at bedside. She is calm, groomed and oriented to month, location and year. Reports that she is "doing okay" and she denies any new concerns. Responses are brief and relevant to questioning. Affect is constricted. Patient denies hallucinations or paranoia. She isn't responding to internal stimuli. Presently she denies any current side effects, pain or discomfort except for some sedation associated with her medications. Nursing notes indicate that patient has been in control. She is quiet and attending groups. Appears depressed. 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 Generalized anxiety disorder Panic disorder Rule out mood disorder and anxiety disorder due to general medical condition Medication Change: No ( ) Medical Record Reviewed: Yes Mental Status Examination - Cognitive Function Orientation: Person, Place, Situation, Time Memory: Intact Attention: WNL Concentration: Poor Association: WNL Fund of Knowledge: WNL - Mood Mood: Depressed ("doing okay"), Anxious - Affect Affect: Constricted, Flat (and tearful) - Speech Speech: Appropriate - Formal Thought Process Formal Thought Process: No Impairment - Suicidal Ideation Suicidal Ideation: No - Homicidal Ideation Homicidal Ideation: No Goal/Treatment Plan - Goal/Treatment Plan Need for Continued Stay: Remain at risks for inpatient hospitalization, Severe depression anxiety, Discharge may exacerbated symptoms, Severe functional impairment Progress Toward Problem(s) and Goals/Treatment Plan: * c/w current tx and plan * No new weekend labs thus far * Vitals reviewed and noted below: Selected Entries 02/04/17 02/05/17 02/05/17 07:48 07:28 07:32 Temperature 97.6 F 97.5 F L 97.5 F L Pulse Rate 59 L 74 74 Respiratory 20 20 20 Rate Blood Pressure 87/44 L 116/70 02/05/17 16:00 Temperature Pulse Rate 85 Respiratory Rate Blood Pressure 133/83 Estimated Date of D/C: 02/11/17
--- NOTE | 2017-02-06 10:09 | PN ---
SUBJECTIVE: I saw her in her wheelchair today. She is doing well. She is watching TV. She is in good spirits. She is smiling. She is eating. She actually moved her bowels. She did have some abdominal pain for the most part but she is improving. MEDICATIONS: She is on Ativan, Cozaar, Ecotrin, erythromycin, insulin, Keppra, Levemir, Maalox, milk of magnesia, MiraLax, Neurontin, Protonix, Prozac, Remeron, Tylenol and Zofran. PHYSICAL EXAMINATION: VITAL SIGNS: Temperature 97.5, pulse 81, blood pressure 126/53, respiratory rate 19. HEENT: Head is atraumatic and normocephalic. Throat is moist. NECK: Supple. HEART: Regular rate. LUNGS: Clear to auscultation. ABDOMEN: Soft, nontender, positive bowel sounds. No guarding, no rebound, no CVA tenderness. EXTREMITIES: Have no edema. There was a transmetatarsal on her foot. NEUROLOGIC: Overall, I think she is improving mentally. Her bowels are better. She is eating better. She is improving. LABORATORY DATA: She has 6.9 white count, CBC was good on the 7th. Chemistry was good on the 9th. She has 206 blood sugar, 10.1 calcium, TSH was 0.27. There was a consult with Dr. Tita Coe, the endocrinology due to her hyperthyroid. She is adjusting her medication. We will continue with aggressive treatment and care. As per psychiatry, I think GI-salazar she is improving. Continue with aggressive treatment and care on Ting [place] who is very depressed status post gastroparesis. Josafat Dent DO
[2017-02-06 11:31] VITALS: RESP 20
--- NOTE | 2017-02-06 16:24 | PN ---
LOCATION: Room 519. SUBJECTIVE: The is a 56-year-old female with recent uncontrolled type 2 insulin requiring diabetes, presenting here with hyperglycemic accelerations and is now being followed closely for metabolic management. She had a previous admission to the medical floor and now readmitted to the psychiatric unit because of increasing major depression and generalized anxiety and insomnia and is being followed closely here for closer management. Her glycemic levels are fluctuating and have ranged from 158 to 183 mg/dL. It was 289 to 325 at bedtime last night as noted. Her latest chemistry showed a BUN of 35, sodium 141, potassium 4.9, chloride 97, CO2 of 37, glucose 206 and creatinine 0.9. Her latest thyroid studies showed a T4 of 9 with a TSH of 0.27 and this is indicative of so called sick euthyroid syndrome, which should be transient and should improve accordingly as her clinical status improves thereof. So, at this time, we will modify her basal and bolus insulin regimen and increase the Levemir to 14 units subcu at bedtime daily to start tonight. We will continue the Humalog given but at a low dose of 4 units subcu t.i.d. before meals as ordered. We will titrate incrementally as indicated to optimize metabolic control. We will follow and advise accordingly. Tita Coe MD
[2017-02-06] MEDS ORDERED: Insulin Detemir 100 units/ml Vial (Levemir) SC SCH (22:00)
[2017-02-07] MEDS: Insulin Lispro (humaLOG) LOW Coverage SC SCH ×4 (08:57→21:34)
[2017-02-07] MEDS: Pantoprazole 40 mg EC Tab PO SCH (09:01)
[2017-02-07] MEDS: Insulin Lispro 1 UNITS/0.01 ML SC SCH ×3 (09:01→17:04)
[2017-02-07] MEDS: POLYETHYLENE GLYCOL 3350 17 GM/Dose PACKET PO SCH (09:02)
--- NOTE | 2017-02-07 09:04 | PCM.PYCHPN ---
Psychiatric Progress Note - Psychiatric Progress Note Patient seen today, length of contact: 25 minutes Patient Chief Complaint: "doing okay" Problems Identified/Issues Discussed: I reviewed recent notes and patient was interviewed at bedside. She remains calm, groomed and oriented to month, location and year. Reports that she is "doing okay" except for some dizziness. She is more hopeful than hopeless. Responses are brief and relevant to questioning. Affect is constricted. Patient denies hallucinations or paranoia. She isn't responding to internal stimuli. Presently she denies any new pain or discomfort (though complained of nausea to nursing later in the morning) Nursing notes indicate that patient has been in control. She is quiet and attending groups. Appears depressed and anxious. There were no behavioral issues over the weekend. 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 Generalized anxiety disorder Panic disorder Rule out mood disorder and anxiety disorder due to general medical condition Medication Change: No ( ) Medical Record Reviewed: Yes Mental Status Examination - Cognitive Function Orientation: Person, Place, Situation, Time Memory: Intact Attention: WNL Concentration: Poor Association: WNL Fund of Knowledge: WNL - Mood Mood: Depressed ("doing okay"), Anxious - Affect Affect: Constricted, Flat (and tearful) - Speech Speech: Appropriate - Formal Thought Process Formal Thought Process: No Impairment - Suicidal Ideation Suicidal Ideation: No - Homicidal Ideation Homicidal Ideation: No Goal/Treatment Plan - Goal/Treatment Plan Need for Continued Stay: Remain at risks for inpatient hospitalization, Severe depression anxiety, Discharge may exacerbated symptoms, Severe functional impairment Progress Toward Problem(s) and Goals/Treatment Plan: * c/w current tx and plan * Appreciate f/u by Dr. Dent and Dr. Coe on 02/06/17~continues to modify patient 's diabetic regimen * Vitals reviewed and noted below: Selected Entries 02/06/17 02/06/17 02/06/17 06:57 11:00 14:00 Temperature 97.5 F L 97.5 F L Pulse Rate 81 81 84 Respiratory 19 20 Rate Blood Pressure 126/53 L 126/53 L 107/74 * Weekend labs noted below: Laboratory Results - last 24 hr 02/06/17 02/06/17 02/06/17 07:27 07:30 07:30 Sodium 141 Potassium 4.9 Chloride 97 L Carbon Dioxide 37 H Anion Gap 12 BUN 35 H Creatinine 0.9 Est GFR ( Amer) > 60 Est GFR (Non-Af Amer) > 60 POC Glucose (mg/dL) 183 H Random Glucose 206 H Calcium 10.1 Total Bilirubin 0.5 AST 33 ALT 45 Alkaline Phosphatase 80 Total Protein 7.0 Albumin 4.2 Globulin 2.8 Albumin/Globulin Ratio 1.5 Thyroxine (T4) 9.0 TSH 3rd Generation 0.27 L 02/06/17 11:33 Sodium Potassium Chloride Carbon Dioxide Anion Gap BUN Creatinine Est GFR ( Amer) Est GFR (Non-Af Amer) POC Glucose (mg/dL) 158 H Random Glucose Calcium Total Bilirubin AST ALT Alkaline Phosphatase Total Protein Albumin Globulin Albumin/Globulin Ratio Thyroxine (T4) TSH 3rd Generation Estimated Date of D/C: 02/11/17
--- NOTE | 2017-02-07 11:45 | PN ---
SUBJECTIVE: I saw her in the psychiatric floor, resting in bed. I discussed with the nurse that she has been having some abdominal pain again. She had that about a week ago on the hospital side. She did eat this morning and she had a bowel movement yesterday, but now, her belly is starting to hurt. She does have a history of gastroparesis. She is on Ativan, Cozaar, Ecotrin, erythromycin, insulin, Keppra, Levemir, Maalox, milk of magnesia, MiraLax, Neurontin, Protonix, Prozac, Remeron, Tylenol and Zofran. PHYSICAL EXAMINATION: VITAL SIGNS: 97.5 temperature, 65 pulse, 81/64 blood pressure, 20 respiratory rate. HEENT: Head is atraumatic and normocephalic. HEART: Regular rate. LUNGS: Clear to auscultation. ABDOMEN: Soft, maybe gently mildly distended, but no guarding, no rebound, no CVA tenderness. EXTREMITIES: Have no edema. LABORATORY DATA: She has a 6.9 white count and a 141 sodium that was on the 9th, last blood sugar was 270. I am going to order labs, flat plate of the abdomen. I believe she was given some Toradol to help her with her abdomen pain. I will order flat plate of the abdomen and GI reeval. We will continue with aggressive treatment and care, see what happens with her x-ray of the abdomen is and with the blood testing. I discussed at length with the nurse and the patient at length. Josafat Dent DO
--- NOTE | 2017-02-07 12:31 | RAD ---
HISTORY: abdominal pain COMPARISON: No prior. FINDINGS: BOWEL: Normal. No obstruction. No free air. There is a moderate amount of fecal retention BONES: Normal. OTHER FINDINGS: None. IMPRESSION: Moderate constipation
--- NOTE | 2017-02-07 15:09 | PN ---
ENDO FOLLOWUP NOTE LOCATION: In room #519, psychiatry. SUBJECTIVE: This is a 56-year-old female with recent major depressive disorder, generalized anxiety and insomnia and is now followed closely for psychiatric evaluation and management and is also being followed closely for metabolic management because of recent hyperglycemic accelerations as noted thereof. Her glycemic levels are fluctuating, but much improved at this time and the latest glucose levels have ranged from 158 to 270 mg/dL. Her latest chemistry show the BUN of 35, sodium 141, potassium 4.9, chloride 97, CO2 of 37, glucose 206 and creatinine 0.9. So at this time we will modify once again her basal and bolus insulin regimen and increase the Levemir to 20 units subQ at bedtime daily to start tonight. We will also increased the Humalog to 6 units subQ t.i.d. before meals to start at the lunch time today as ordered. We titrate incrementally as indicated to optimize metabolic control. We will also obtain serum chemistries and supplement accordingly as needed. We will follow with you. Tita Coe MD
[2017-02-07] MEDS ORDERED: Insulin Detemir 100 units/ml Vial (Levemir) SC SCH (22:00)
[2017-02-07] MEDS: Alum-Mag Hydrox-Simethicone Susp (30 mL) PO PRN (23:17)
[2017-02-08] MEDS ORDERED: Pantoprazole 40 mg EC Tab PO STA (00:11)
--- NOTE | 2017-02-08 00:11 | CP.PCM.PN ---
Subjective - Date & Time of Evaluation Date of Evaluation: 02/08/17 Time of Evaluation: 00:10 - Subjective Subjective: Patient was seen at bedside. She complains of diffuse abdominal pain. Has no other complaints. Denies chest pain, has nausea, vomited little. No other complaints. Patient was seen in the room in presence of her primary nurse. Medical record was reviewed. 56 year old white woman was admitted unresponsive with hyperglycemia. PMH of DM II, HTN, CVA, TIA,bilateral cataract , gastroparesis, depression, amputation of right half foot. Objective - Vital Signs/Intake and Output Vital Signs (last 24 hours): Temp Pulse Resp BP Pulse Ox 97.5 F L 78 20 170/97 H 02/07/17 07:30 02/07/17 16:52 02/07/17 07:30 02/07/17 16:52 - Medications Medications: Current Medications Acetaminophen (Tylenol 325mg Tab) 650 mg PO Q4 PRN PRN Reason: Pain, Mild (1-3) Last Admin: 02/07/17 17:04 Dose: 650 mg Al Hydrox/Mg Hydrox/Simethicone (Maalox Plus 30 Ml) 30 ml PO DAILY PRN PRN Reason: Upset Stomach Last Admin: 02/07/17 23:17 Dose: 30 ml Aspirin (Ecotrin) 81 mg PO DAILY [facility] Last Admin: 02/07/17 09:01 Dose: 81 mg Erythromycin (Erythromycin) 250 mg PO 0600,1400,2200 [facility] PRN Reason: Protocol Last Admin: 02/07/17 21:27 Dose: 250 mg Fluoxetine HCl (Prozac) 30 mg PO DAILY [facility] Last Admin: 02/07/17 09:01 Dose: 30 mg Gabapentin (Neurontin) 400 mg PO TID [facility] PRN Reason: Protocol Last Admin: 02/07/17 17:58 Dose: 400 mg Insulin Detemir (Levemir) 20 unit SC HS [facility] Last Admin: 02/07/17 21:33 Dose: Not Given Insulin Human Lispro (Humalog Low) 0 units SC ACHS [facility] PRN Reason: Protocol Last Admin: 02/07/17 21:34 Dose: Not Given Insulin Human Lispro (Humalog) 6 units SC AC [facility] Last Admin: 02/07/17 17:04 Dose: 6 units Levetiracetam (Keppra) 500 mg PO BID [facility] Last Admin: 02/07/17 17:04 Dose: 500 mg Lorazepam (Ativan) 0.5 mg PO AMHS [facility] PRN Reason: Protocol Last Admin: 02/07/17 21:27 Dose: 0.5 mg Losartan Potassium (Cozaar) 100 mg PO DAILY [facility] Last Admin: 02/07/17 09:00 Dose: 100 mg Magnesium Hydroxide (Milk Of Magnesia) 30 ml PO DAILY PRN PRN Reason: Constipation Mirtazapine (Remeron) 7.5 mg PO HS [facility] Last Admin: 02/07/17 21:26 Dose: 7.5 mg Ondansetron HCl (Zofran Inj) 4 mg IVP Q4H PRN PRN Reason: Nausea/Vomiting Last Admin: 02/07/17 21:43 Dose: 4 mg Pantoprazole Sodium (Protonix Ec Tab) 40 mg PO 0600 [facility] Last Admin: 02/07/17 09:01 Dose: 40 mg Polyethylene Glycol (Miralax) 17 gm PO DAILY [facility] Last Admin: 02/07/17 09:02 Dose: 17 gm - Labs Labs: 02/04/17 07:45 02/06/17 07:30 - Constitutional Appears: Well, No Acute Distress - Head Exam Head Exam: ATRAUMATIC, NORMAL INSPECTION, NORMOCEPHALIC - Eye Exam Eye Exam: Normal appearance - ENT Exam ENT Exam: Normal External Ear Exam - Neck Exam Neck Exam: Normal Inspection - Respiratory Exam Respiratory Exam: NORMAL BREATHING PATTERN - Cardiovascular Exam Cardiovascular Exam: absent: JVD - GI/Abdominal Exam GI & Abdominal Exam: absent: Distended - Rectal Exam Rectal Exam: Deferred - Exam Additional comments: Deferred. - Extremities Exam Extremities Exam: Normal Inspection - Back Exam Back Exam: NORMAL INSPECTION - Neurological Exam Neurological Exam: Alert, Oriented x3 - Psychiatric Exam Psychiatric exam: Normal Affect, Normal Mood - Skin Skin Exam: Normal Color Assessment and Plan - Assessment and Plan (Free Text) Assessment: Diffuse abdominal pain. Nausea. Gastroparesis. DM II. HTN. Depresssion. Plan: Toradol 60 mg IM stat. Protonix 40 mg PO stat. Continue present management.
[2017-02-08] MEDS: Pantoprazole 40 mg EC Tab PO SCH (05:33)
[2017-02-08 06:08] LABS: BASO # 0.03 K/mm3 (0.0-2.0); BASO % 0.2 % (0.0-3.0); EOS % 0.2 % (1.5-5.0); GRAN # 18.06 (1.4-6.5); GRAN % 90.2 % (50.0-68.0); LYMPH # 1.1 (1.2-3.4); LYMPH % 5.7 % (22.0-35.0); MEAN CELL VOLUME 82.5 fl (80.0-105.0); MEAN CORPUSCULAR HEMOGLOBIN 28.4 pg (25.0-35.0); MEAN CORPUSCULAR HGB CONC 34.4 g/dl (31.0-37.0); MEAN PLATELET VOLUME 9.7 fl (7.0-11.0); MONO # 0.7 (0.1-0.6); MONO % 3.7 % (1.0-6.0); PLATELET COUNT 261 10^3/uL (120.0-450.0); RED CELL DISTRIBUTION WIDTH 12.8 % (11.5-14.5)
[2017-02-08 06:14] LABS: ALB/GLOB RATIO 1.5 (1.1-1.8); ALKALINE PHOSPHATASE 91 U/L (38-126); ALT/SGPT 48 U/L (7-56); AMYLASE 114 U/L (35-125); AST/SGOT 41 U/L (14-36); BILIRUBIN,TOTAL 0.6 mg/dL (0.2-1.3); BLOOD UREA NITROGEN 38 mg/dL (7-21); CALCIUM 9.5 mg/dL (8.4-10.5); CARBON DIOXIDE 34 mmol/L (21-33); CHLORIDE 96 mmol/L (98-107); GFR AFRICAN-AMERICAN > 60; GLUCOSE,RANDOM 255 mg/dL (70-110); LIPASE 158 U/L (23-300); SODIUM 139 mmol/L (132-148); TOTAL PROTEIN 6.9 g/dL (5.8-8.3)
[2017-02-08 06:57] LABS: TROPONIN I < 0.01 ng/mL
[2017-02-08 06:58] LABS: POTASSIUM 5.7 mmol/L (3.6-5.0)
[2017-02-08 07:00] LABS: BAND 5 % (0-2); EOSINOPHIL 1 % (0.0-3.0); NEUTROPHIL 83 % (50.0-70.0)
[2017-02-08 07:01] LABS: MYELOCYTE 2 %; PLATELET ESTIMATE NORMAL (NORMAL)
[2017-02-08] MEDS ORDERED: Sod Polystyrene Sulf 15 gm/60 ml Oral Susp PO ONE ×2 (07:08→08:31)
[2017-02-08] MEDS: Insulin Lispro (humaLOG) LOW Coverage SC SCH (07:18)
[2017-02-08 07:39] VITALS: BP 130/77; PULSE 90; TEMP 97.9
--- NOTE | 2017-02-08 08:09 | RAD ---
HISTORY: abdominal pain. COMPARISON: 02/07/2017 FINDINGS: BOWEL: No bowel obstruction. Moderate retained feces. Numerous surgical clips throughout the abdomen. BONES: Normal. OTHER FINDINGS: None. IMPRESSION: No bowel obstruction.
[2017-02-08] MEDS: Insulin Lispro 1 UNITS/0.01 ML SC SCH (09:12)
--- NOTE | 2017-02-08 12:14 | CP.PCM.CON ---
<Ruthann Cleveland - Last Filed: 02/08/17 12:42> History of Present Illness - History of Present Illness History of Present Illness: Gastroenterology Fellow/PGY5 Consult Note 56 year old female with history of Hypertension, Diabetes, gastroparesis, MDD, LAUREN, TIA/CVA, and recently diagnosed seizures presenting as transfer from transferred from Psychiatry today due to leukocytosis, hyperkalemia, and renal insufficiency. Patient was being treated on medical floor for exacerbated gastroparesis and newly diagnosed seizure activity. Patient notes worsened epigastric pain from chronic baseline that started this morning associated with new symptom of mid-back pain. Admits to no bowel movement for last two days. Patient has been tolerating diet. Patient endorses vomiting in ER but nursing confirms no episodes of vomiting and one episode of soft brown stool in ER. Denies fever, chills, sweats, hematemesis, diarrhea, unintentional weight loss, hematochezia, or melena. Prior EDG and colonoscopy 6 months ago endorsed to show esophagitis, gastroparesis, and denies polyps. Family- Mother-stomach cancer, sister- Crohn's disease Social-denies tobacco, alcohol, illicit drug use Surgery-cholecystectomy, appendectomy, hysterectomy, Review of Systems - Review of Systems Review of Systems: 12-point review of systems negative except for as above Past Patient History - Infectious Disease Hx of Infectious Diseases: None - Past Social History Smoking Status: Never Smoked - CARDIAC Hx Hypertension: Yes - PULMONARY Hx Respiratory Disorders: No - NEUROLOGICAL HX Cerebrovascular Accident: Yes (TIA's) - HEENT Hx HEENT Problems: (reading glasses) Hx Cataracts: Yes (bilateral sx) - RENAL Hx Chronic Kidney Disease: No - ENDOCRINE/METABOLIC Hx Diabetes Mellitus Type 1: Yes - HEMATOLOGICAL/ONCOLOGICAL Hx Blood Transfusions: Yes Hx Blood Transfusion Reaction: No - INTEGUMENTARY Hx Dermatological Problems: No Other/Comment: 10 wilbert to back of head - MUSCULOSKELETAL/RHEUMATOLOGICAL Hx Falls: Yes (past) Hx Unsteady Gait: Yes - GASTROINTESTINAL Hx Gastrointestinal Disorders: Yes Hx Gastroesophageal Reflux: Yes (had endo; lesions in the esophagus) Other/Comment: Diabetic Gastroparesis - GENITOURINARY/GYNECOLOGICAL Hx Genitourinary Disorders: No - PSYCHIATRIC Hx Anxiety: Yes Hx Depression: Yes Hx Physical Abuse: No Hx Sexual Abuse: No Hx Substance Use: No - SURGICAL HISTORY Hx Surgeries: No Other/Comment: Amputation of half the Rt. foot. - ANESTHESIA Hx Anesthesia: Yes Hx Anesthesia Reactions: No Hx Malignant Hyperthermia: No Meds Allergies/Adverse Reactions: Allergies Allergy/AdvReac Type Severity Reaction Status Date / Time No Known Allergies Allergy Verified 02/08/17 09:59 - Medications Medications: Current Medications Acetaminophen (Tylenol 325mg Tab) 650 mg PO Q4 PRN PRN Reason: Pain, Mild (1-3) Last Admin: 02/07/17 17:04 Dose: 650 mg Al Hydrox/Mg Hydrox/Simethicone (Maalox Plus 30 Ml) 30 ml PO DAILY PRN PRN Reason: Upset Stomach Last Admin: 02/07/17 23:17 Dose: 30 ml Aspirin (Ecotrin) 81 mg PO DAILY [facility] Last Admin: 02/07/17 09:01 Dose: 81 mg Erythromycin (Erythromycin) 250 mg PO 0600,1400,2200 [facility] PRN Reason: Protocol Last Admin: 02/08/17 05:33 Dose: 250 mg Fluoxetine HCl (Prozac) 30 mg PO DAILY [facility] Last Admin: 02/07/17 09:01 Dose: 30 mg Gabapentin (Neurontin) 400 mg PO TID [facility] PRN Reason: Protocol Last Admin: 02/07/17 17:58 Dose: 400 mg Insulin Detemir (Levemir) 20 unit SC [facility] Last Admin: 02/07/17 21:33 Dose: Not Given Insulin Human Lispro (Humalog Low) 0 units SC ACHS [facility] PRN Reason: Protocol Last Admin: 02/08/17 07:18 Dose: Not Given Insulin Human Lispro (Humalog) 6 units SC AC [facility] Last Admin: 02/08/17 09:12 Dose: Not Given Levetiracetam (Keppra) 500 mg PO BID [facility] Last Admin: 02/07/17 17:04 Dose: 500 mg Lorazepam (Ativan) 0.5 mg PO AMHS [facility] PRN Reason: Protocol Last Admin: 02/07/17 21:27 Dose: 0.5 mg Losartan Potassium (Cozaar) 100 mg PO DAILY [facility] Last Admin: 02/07/17 09:00 Dose: 100 mg Magnesium Hydroxide (Milk Of Magnesia) 30 ml PO DAILY PRN PRN Reason: Constipation Mirtazapine (Remeron) 7.5 mg PO [facility] Last Admin: 02/07/17 21:26 Dose: 7.5 mg Ondansetron HCl (Zofran Inj) 4 mg IVP Q4H PRN PRN Reason: Nausea/Vomiting Last Admin: 02/07/17 21:43 Dose: 4 mg Pantoprazole Sodium (Protonix Ec Tab) 40 mg PO 0600 [facility] Last Admin: 02/08/17 05:33 Dose: 40 mg Polyethylene Glycol (Miralax) 17 gm PO DAILY [facility] Last Admin: 02/07/17 09:02 Dose: 17 gm Physical Exam - Constitutional Appears: Non-toxic, No Acute Distress - Head Exam Head Exam: ATRAUMATIC, NORMOCEPHALIC - Eye Exam Eye Exam: EOMI, PERRL Pupil Exam: PERRL. absent: Miosis, Mydriatic - ENT Exam ENT Exam: Mucous Membranes Moist, Normal Oropharynx - Neck Exam Neck exam: Positive for: Full Rom, Normal Inspection - Respiratory Exam Respiratory Exam: Clear to Auscultation Bilateral. absent: Rales, Rhonchi, Wheezes - Cardiovascular Exam Cardiovascular Exam: RRR, +S1, +S2. absent: Gallop, Rubs - GI/Abdominal Exam GI & Abdominal Exam: Normal Bowel Sounds, Soft, Tenderness. absent: Distended, Firm, Guarding, Organomegaly, Rigid Additional comments: epigastric tenderness to palpation - Extremities Exam Extremities exam: Positive for: normal inspection. Negative for: pedal edema - Neurological Exam Neurological exam: Alert - Psychiatric Exam Psychiatric exam: Anxious - Skin Skin Exam: Dry, Intact, Normal Color, Warm Results - Vital Signs Recent Vital Signs: Last Vital Signs Temp 97.9 F 02/08/17 07:38 Pulse 90 02/08/17 07:38 Resp 20 02/08/17 07:38 BP 130/77 02/08/17 07:38 Pulse Ox - Labs Result Diagrams: 02/08/17 05:50 02/08/17 05:50 Labs: Laboratory Results - last 24 hr 02/08/17 02/08/17 02/08/17 02:05 05:50 05:50 WBC 20.0 H D RBC 4.97 Hgb 14.1 Hct 41.0 MCV 82.5 MCH 28.4 MCHC 34.4 RDW 12.8 Plt Count 261 MPV 9.7 Gran % 90.2 H Lymph % (Auto) 5.7 L [place] % (Auto) 3.7 Eos % (Auto) 0.2 L Baso % (Auto) 0.2 Gran # 18.06 H Lymph # 1.1 L [place] # 0.7 H Eos # 0.0 Baso # 0.03 Neutrophils % (Manual) 83 H Band Neutrophils % 5 H Lymphocytes % (Manual) 7 L Monocytes % (Manual) 2 Eosinophils % (Manual) 1 Myelocytes % 2 Platelet Evaluation Normal Sodium 139 Potassium 5.7 H* Chloride 96 L Carbon Dioxide 34 H Anion Gap 15 BUN 38 H Creatinine 1.0 Est GFR ( Amer) > 60 Est GFR (Non-Af Amer) 57 POC Glucose (mg/dL) 210 H Random Glucose 255 H Calcium 9.5 Total Bilirubin 0.6 AST 41 H D ALT 48 Alkaline Phosphatase 91 Troponin I < 0.01 Total Protein 6.9 Albumin 4.1 Globulin 2.7 Albumin/Globulin Ratio 1.5 Amylase 114 Lipase 158 Assessment & Plan - Assessment and Plan (Free Text) Assessment: 56 year old female with history of Hypertension, Diabetes, gastroparesis, MDD, LAUREN, TIA/CVA, and recently diagnosed seizures presenting as transfer from transferred from Psychiatry today due to leukocytosis, hyperkalemia, and renal insufficiency. Active treatment of metabolic derangements and abdominal pain. Prior EDG and colonoscopy 6 months ago endorsed to show esophagitis, gastroparesis, and denies polyps. Plan: >ordered CT A/P PO contrast to rule out acute intra-abdominal pathology >will obtain EGD/colonoscopy reports to review results >ordered Urinalysis to rule out genitourinary infectious source >uncontrolled hyperglycemia- possible gastroparesis exacerbation >nursing documentation of insulin sliding scale and Levemir held due to parameter instructions >follow up endocrinology recommendation of insulin management >continue Miralax daily >further recommendations based on imaging, labs, and clinical course <Dagoberto Zambrano - Last Filed: 02/08/17 17:04> Results - Vital Signs Recent Vital Signs: Last Vital Signs Temp 97.9 F 02/08/17 07:38 Pulse 90 02/08/17 07:38 Resp 20 02/08/17 07:38 BP 130/77 02/08/17 07:38 Pulse Ox - Labs Result Diagrams: 02/08/17 05:50 02/08/17 05:50 Labs: Laboratory Results - last 24 hr 02/08/17 02/08/17 02/08/17 02:05 05:50 05:50 WBC 20.0 H D RBC 4.97 Hgb 14.1 Hct 41.0 MCV 82.5 MCH 28.4 MCHC 34.4 RDW 12.8 Plt Count 261 MPV 9.7 Gran % 90.2 H Lymph % (Auto) 5.7 L [place] % (Auto) 3.7 Eos % (Auto) 0.2 L Baso % (Auto) 0.2 Gran # 18.06 H Lymph # 1.1 L [place] # 0.7 H Eos # 0.0 Baso # 0.03 Neutrophils % (Manual) 83 H Band Neutrophils % 5 H Lymphocytes % (Manual) 7 L Monocytes % (Manual) 2 Eosinophils % (Manual) 1 Myelocytes % 2 Platelet Evaluation Normal Sodium 139 Potassium 5.7 H* Chloride 96 L Carbon Dioxide 34 H Anion Gap 15 BUN 38 H Creatinine 1.0 Est GFR ( Amer) > 60 Est GFR (Non-Af Amer) 57 POC Glucose (mg/dL) 210 H Random Glucose 255 H Calcium 9.5 Total Bilirubin 0.6 AST 41 H D ALT 48 Alkaline Phosphatase 91 Troponin I < 0.01 Total Protein 6.9 Albumin 4.1 Globulin 2.7 Albumin/Globulin Ratio 1.5 Amylase 114 Lipase 158 Attending/Attestation - Attestation I have personally seen and examined this patient.: Yes I have fully participated in the care of the patient.: Yes I have reviewed all pertinent clinical information: Yes Notes (Text): 02/08/17 16:57 I have seen and examined patient with GI fellow. Agree with above documentation with the following additions. In brief, this is a 56 year old female with history of HTN, DM, gastroparesis, CVA, depression, seizure disorder who is currently in psychiatric unit undergoing treatment of ongoing depression. GI called for evaluation of sudden onset severe abdominal pain. She describes 10/10 severe epigastric abdominal pain that is radiating to back and began earlier this morning. She was previously being managed for uncontrolled DM with secondary gastroparesis and for past few days was doing well. She suddenly developed abdominal pain along with associated nausea but denies vomiting, fever/chills, weight loss, or rectal bleeding. She had one soft normal colored bowel movement today. She had an EGD/colonoscopy 6 months ago at outside facility with findings suggestive of gastroparesis (as per patient). DM HTN CVA Gastroparesis Depression Seizure disorder Progressive abdominal pain, leukocytosis - Obtain CT abdomen/pelvis to rule out intraabdominal process given sudden change in clinical condition along with development of leukocytosis - Obtain urinalysis, culture - Obtain results of recently performed EGD/colonoscopy - Continue with bowel regimen for management of constipation - Liquid diet as tolerated, maintain tight glycemic control - Follow up neurology recommendations regarding recently noted seizure activity - Will continue to monitor patient clinical course
--- NOTE | 2017-02-08 14:01 | PCM.PYCHDC ---
Mental Status Examination - Mental Status Examination Orientation: Person, Place, Situation, Time Memory: Intact Mood: Depressed Affect: Constricted Attention: WNL Concentration: WNL Association: WNL Fund of Knowledge: WNL Formal Thought Process: No Impairment Description of patient's judgement and insight: improving Psychotic Thoughts and Behaviors: improving Suicidal Ideation: No Current Homicidal Ideation?: No Plan: denied Discharge Summary - Discharge Note Reason for Hospitalization: patient was transferred from the medical floor for evaluation of worsening of depression, hopelessness, passive wish to be , see initial note Psychiatric History (includes Medical, Family, Personal Hx): see HPI Laboratory Data: Abnormal Lab Results 02/08/17 02/08/17 02/08/17 02:05 05:50 05:50 WBC 20.0 H D RBC 4.97 Hgb 14.1 Hct 41.0 MCV 82.5 MCH 28.4 MCHC 34.4 RDW 12.8 Plt Count 261 MPV 9.7 Gran % 90.2 H Lymph % (Auto) 5.7 L [place] % (Auto) 3.7 Eos % (Auto) 0.2 L Baso % (Auto) 0.2 Gran # 18.06 H Lymph # 1.1 L [place] # 0.7 H Eos # 0.0 Baso # 0.03 Neutrophils % (Manual) 83 H Band Neutrophils % 5 H Lymphocytes % (Manual) 7 L Monocytes % (Manual) 2 Eosinophils % (Manual) 1 Myelocytes % 2 Platelet Evaluation Normal Sodium 139 Potassium 5.7 H* Chloride 96 L Carbon Dioxide 34 H Anion Gap 15 BUN 38 H Creatinine 1.0 Est GFR ( Amer) > 60 Est GFR (Non-Af Amer) 57 POC Glucose (mg/dL) 210 H Random Glucose 255 H Calcium 9.5 Total Bilirubin 0.6 AST 41 H D ALT 48 Alkaline Phosphatase 91 Troponin I < 0.01 Total Protein 6.9 Albumin 4.1 Globulin 2.7 Albumin/Globulin Ratio 1.5 Amylase 114 Lipase 158 Consultations:: List each consultation separately and include: 1. Reason for request. 2. Findings. 3. Follow-up Consultations: medical consult appreciated pt was transferred to the medical floor for evaluation of leukocytosis and electrolyte disbalance Summary of Hospital Course include:: 1. Description of specific treatment plan utilized for patients during their course of treatmen. 2. Summarize the time- course for resolution of acute symptoms and/or regressed behaviors. 3. Describe issues identified and worked on during hospitalization. 4. Describe medication utilized. 5. Describe medical problems identified and treated. 6. Reassessment of suicide risk Summary of Hospital Course: shortly patient is 56 year old female, reported history of depression and anxiety, multiple medical issues, patient was initially seen on the medical side , patient was found to be depressed, hopeless, had passive wish to be , was not able to contract for safety, needs further evaluation and stabilization, medication initiation and titration. Please see consultation note on the medical side. At the time of admission presented with improved personal hygiene, acceptable ADLs. Patient reported that she has multiple medical issues that's why she feels very depressed, patient also feels depressed about losing her independence, patient had surgery for partial right foot amputation, patient has gastroparesis, severe diabetes, patient also has diabetes neuropathy. All of the medical issues making pt feel dependant on her family. as per patient she has severe abdominal pain, was not able to tolerate food, patient was feeling very anxious before eating, lost significant amount of weight. pt also reported that she was not able to sleep, was "crying all day long", difficulties to concentrate, memory problems. pt denied v/a/t hallucinations, denied paranoid ideation, pt does not appear to be psychotic. pt denied using drugs, denied alcohol consumption. no manic symptoms elicited. past psych h/o: pt reported that she was taking cymbalta, which was not helping her, denied previous psych admissions, denied suicidal attempts. medical h/o: see HPI medical note, DM, gastroparesis, right partial foot amputation, seizures social h/o: , two daughters, who are supportive, pt is on disability. family h/o: denied Lab Results 02/03/17 07:30: Free T4 1.30, TSH 3rd Generation 0.35 L 02/03/17 07:30: Triglycerides 111, Cholesterol 142, LDL Cholesterol Direct 63, HDL Cholesterol 56 Vital Signs Temp Pulse Resp BP 02/03/17 07:34 97.8 F 84 20 74/52 L 02/02/17 16:49 97.8 F 82 18 144/91 H patient was started on Prozac, neurontin was increased, Remeron was started. over the weekend patient was found to have elevated WBCs cells as well as electrolytes disbalance to the patient needed to be transferred to the emergency room most likely after that patient will be admitted on the medical side. This automobile service writer will follow-up on the patient on the medical side. 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 In case pt will need to obtain results of studies pending at discharge pt was provided with contact information of Psychiatric Inpatient unit [phone] as well as Medical Record Department [phone]. Counseling about smoking and alcohol cessation provided AA meetings as well as [facility] [place] [place] smoking cessation treatment program information was provided by the pt was provided with prescriptions for all of medications (please see medication reconciliation form) Pt was educated about safety plan in case of worsening of symptoms or in case of suicidal or homicidal ideation call 911 or go to the nearest ER, also was educated to take meds as prescribed and stay away from drugs, pt verbalized understanding. - Smoking Cessation Smoking Cessation Medication prescribed: No Reason for not providing: denied smoking - Antipsychotic Medications Pt discharged on 2 or more routine antipsychotic medications: No
--- NOTE | 2017-02-08 14:12 | CT ---
PROCEDURE: CT Abdomen and Pelvis without intravenous contrast HISTORY: abdominal pain COMPARISON: None. TECHNIQUE: Without contrast. Contrast Dose: Radiation dose: Total exam DLP = 420 mGy-cm. This CT exam was performed using one or more of the following dose reduction techniques: Automated exposure control, adjustment of the mA and/or kV according to patient size, and/or use of iterative reconstruction technique. FINDINGS: LOWER THORAX: Unremarkable. LIVER: Unremarkable. No gross lesion or ductal dilatation. GALLBLADDER AND BILE DUCTS: Unremarkable. PANCREAS: Unremarkable. No gross lesion or ductal dilatation. SPLEEN: Unremarkable. ADRENALS: Unremarkable. No mass. KIDNEYS AND URETERS: Unremarkable. No hydronephrosis. No solid mass. VASCULATURE: Unremarkable. No aortic aneurysm. BOWEL: Severe constipation APPENDIX: Unremarkable. Normal appendix. PERITONEUM: Unremarkable. No free fluid. No free air. LYMPH NODES: Unremarkable. No enlarged lymph nodes. BLADDER: There is distention of the bladder which extends up to the level of the iliac crests. REPRODUCTIVE: Unremarkable. BONES: No acute fracture. OTHER FINDINGS: None. IMPRESSION: Severe constipation. Distention of the bladder. No acute findings
--- NOTE | 2017-02-08 16:01 | HP ---
HISTORY OF PRESENT ILLNESS: I saw Ting in the psychiatric floor where she has been for the past few days, status post hospital stay where she was unresponsive and she was doing well at all low blood pressure with gastroparesis. She was seen this morning in the psychiatric floor, very uncomfortable massive abdominal pain. She was actually seen last night by the house doctor for abdominal pain. I also ordered abdominal x-ray and I showed no obstruction, but she does have a history of gastroparesis. She is being seen by endocrinology, was being seen by GI, also the psychiatrist and she is very comfortable this morning in the psychiatric floor. Trying to go to the bathroom, was brought to my attention to send her down to the emergency room from the psychiatric floor with routine blood test, which showed 20,000 white count. She had sepsis in the past. The white count on the 04 of February was 6.9 and that was up to 20,000, hemoglobin 14.1, hematocrit 41, platelets 261. She has 139 sodium, potassium is 5.7. She was given Kayexalate this morning, but why did it pop up so much when the last one was 4.9. She did not order any potassium. BUN is 38, creatinine is 1, GFR is 57, blood sugar has been high at 210 and 255 being seen by an yeast cake cutter. Calcium is 9.5, total bilirubin is 0.6, AST is 41, ALT is 48, alkaline phosphatase is 91, troponin is less than 0.01, total protein 6.9, amylase 114, lipase 158, TSH was low at 0.27 for hyperthyroidism. PAST MEDICAL HISTORY: She also history of hypertension, CVA, diabetes, she was septic. She has gastroparesis, TIA, bilateral cataract and wilbert on the back of her head from a fall. She had a lesion in the esophagus with a diabetic gastroparesis. She has amputation of the right foot transmetatarsal. FAMILY HISTORY: Hypertension, diabetes. SOCIAL HISTORY: She never smoked. No drugs. No alcohol. ALLERGIES: NO KNOWN DRUG ALLERGIES. MEDICATIONS: She is on Ativan, Cozaar, Ecotrin, erythromycin for the stomach, Humalog, Keppra, Levemir, Maalox, milk of magnesia, MiraLax, Neurontin, Protonix, Prozac, Remeron, Tylenol, and Zofran. REVIEW OF SYSTEMS: She is a little bit nervus. No acute vision or hearing changes. Not feeling well at all, very uncomfortable, no chest pain, no shortness of breath, but there is abdominal pain again. Trying to go the bathroom is uncomfortable, some diarrhea. No sweating. She is anxious. PHYSICAL EXAMINATION: VITAL SIGNS: She has 97.9 temperature, 90 pulse, 130/77 blood pressure, 20 respiratory rate. HEENT: Head is atraumatic and normocephalic. Throat is dry. NECK: Supple. HEART: Regular rate. LUNGS: Decreased breath sounds, but clear. ABDOMEN: Mildly distended. There Were bowel sounds, but distant. Mildly discomfort, but no guarding, no rebound. EXTREMITIES: No edema. LABORATORY DATA: She has 139 sodium, potassium 5.7, BUN 78, creatinine 1, GFR is 57, sugars 55, calcium 9.5, AST is 41, ALT is 40, alkaline phosphatase 91. Troponin is less than 0.01. Total protein 6.9, albumin is 4.1, globulin is 2.7, albumin is 1.5, amylase is 114, and lipase is 158, TSH is 0.27. White count up to 20,000, hemoglobin 14.1, hematocrit is 41 and platelets 261. The abdomen with obstruction. PLAN: I sent her to the emergency room. I spoke to the emergency doctor about the acute changes in her labs. She is probably septic again with gastroparesis probably starting and she will need to be put in the hospital side out of the psychiatric unit. I already discussed this with infectious disease, they are aware of her being here, and we will get blood cultures and urine cultures. We will get psych, GI, endocrinology, and infectious disease and should be admitted with a leukocytosis, abdominal pain, probable sepsis. Josafat Dent DO
--- NOTE | 2017-02-08 16:16 | CARD ---
APPROVED REPORT EKG Measurement Heart [id number] <Conclusion> Normal sinus rhythm Normal ECG
--- NOTE | 2017-02-08 19:09 | PN ---
ENDOCRINOLOGY FOLLOWUP NOTE LOCATION: Room #519, psychiatry. This is a 56-year-old female with recent uncontrolled type 2 insulin-requiring diabetes now being followed closely for metabolic management. She is also undergoing close psychiatric evaluation and management because of recent major depression and marked insomnia as noted above. Her glucose values are fluctuating but improved and the latest chemistry showed BUN of 38, sodium 139, potassium 5.7, chloride 96, CO2 of 34, glucose 255 and creatinine 1.0. Her glucose levels have ranged from 210 to 258 mg/dL. So at this time, we will modify once again her basal and bolus insulin regimen and increase the Levemir to 24 units subcu at bedtime daily to start tonight. We will also increase the Humalog to 6 units subcu t.i.d. before meals as ordered. We will titrate incrementally as indicated to optimize metabolic control. We will follow and advise accordingly. Tita Coe MD
--- NOTE | 2017-02-09 23:35 | PN ---
ENDOCRINOLOGY FOLLOWUP NOTE LOCATION: Room #575. This is a 56-year-old female with recent uncontrolled type 2 insulin-requiring diabetes and transferred from the psychiatric unit to the medical floor because of supervening diffuse abdominal pain and is now being referred for endocrine evaluation and management. Her oral intake is quite variable at this time with supervening glycemic fluctuations as noted thereof. Her latest glucose values have ranged from 54 to 152 and 126 mg/dL. It was quite low early this morning at 31 mg/dL. Apparently, the medical doctors ordered her home insulin regimen which was quite high level, Levemir given at 32 units at bedtime daily with supervening early childhood hypoglycemia. Her latest chemistry showed the BUN of 27, sodium 143, potassium 3.6, chloride 102, CO2 of 33, glucose 41 and creatinine 1.0, so at this time because of the variability of her oral intake, we will actually modify her current insulin regimen and lower the Levemir to 20 units subQ at bedtime daily to start tonight. We will also lower the Humalog to 40 units subQ t.i.d. before meals to start at dinner time today as ordered. We will titrate incrementally as indicated to optimize metabolic control. We will follow and advise accordingly. Tita Coe MD
== END 2017-02-08 09:53 | disposition short-term general hospital (02) | DRG 885 ==
LOC: PSYC 15:37
PROVIDERS: ADMIT Psychiatry & Neurology Psychiatry; ATTEND Psychiatry & Neurology Psychiatry
PROC: GZ3ZZZZ Medication Management (ICD-10-PCS; principal; 2017-02-03)
DX: F32.2 Major depressive disorder, single episode, severe without psychotic features (principal); F06.30 Mood disorder due to known physiological condition, unspecified; F41.1 Generalized anxiety disorder; F41.0 Panic disorder [episodic paroxysmal anxiety]; E11.51 Type 2 diabetes mellitus with diabetic peripheral angiopathy without gangrene; K31.84 Gastroparesis; I11.9 Hypertensive heart disease without heart failure; E11.43 Type 2 diabetes mellitus with diabetic autonomic (poly)neuropathy; E11.65 Type 2 diabetes mellitus with hyperglycemia; E87.5 Hyperkalemia; E78.5 Hyperlipidemia, unspecified; I25.10 Atherosclerotic heart disease of native coronary artery without angina pectoris; G40.909 Epilepsy, unspecified, not intractable, without status epilepticus; E07.81 Sick-euthyroid syndrome; E11.319 Type 2 diabetes mellitus with unspecified diabetic retinopathy without macular edema; K59.00 Constipation, unspecified; D72.829 Elevated white blood cell count, unspecified; G47.00 Insomnia, unspecified; Z79.4 Long term (current) use of insulin; Z86.73 Personal history of transient ischemic attack (TIA), and cerebral infarction without residual deficits; Z89.431 Acquired absence of right foot; Z83.3 Family history of diabetes mellitus; Z82.49 Family history of ischemic heart disease and other diseases of the circulatory system

== ENCOUNTER 2017-02-08 09:48 | Inpatient (IN) | payer BC ==
[2017-02-08 10:00] VITALS: BMI 20.9
[2017-02-08] MEDS ORDERED: Iohexol 240 (50 ml) ONE (10:42)
--- NOTE | 2017-02-08 10:45 | ED PDOC ---
Arrival/HPI - General Chief Complaint: Abnormal Labs Time Seen by Provider: 02/08/17 09:50 Historian: Patient - History of Present Illness Narrative History of Present Illness (Text): 02/08/17 10:41 Ting Monaco is a 56 year old female, whose PMH includes diabetes and CVA, who was sent in by psych unit for elevated potassium level. Patient is complaining of epigastric pain and states it is worse when eating. Patient's review of systems is limited due to being uncooperative. Patient denies hematuria and hematochezia. PMD: Dr. Burnett Time/Duration: Other (sent by psych unit ) Symptom Onset: Sudden Symptom Course: Unchanged Modifying Factors (Text): pain is worse when eating Past Medical History - Provider Review Nursing Documentation Reviewed: Yes - Infectious Disease Hx of Infectious Diseases: None - Reproductive Menopause: Yes - Cardiac Other/Comment: polyneuropahy - Pulmonary Hx Respiratory Disorders: No - Neurological HX Cerebrovascular Accident: Yes (TIA's) - HEENT Hx HEENT Disorder: (reading glasses) Hx Cataracts: Yes (bilateral sx) Other/Comment: diabetic retinopathy,pad - Renal Hx Renal Disorder: No - Endocrine/Metabolic Hx Diabetes Mellitus Type 1: Yes - Hematological/Oncological Hx Blood Transfusions: Yes Hx Blood Transfusion Reaction: No - Integumentary Hx Dermatological Disorder: No Other/Comment: 10 wilbert to back of head - Musculoskeletal/Rheumatological Hx Falls: Yes (past) Hx Unsteady Gait: Yes - Gastrointestinal Hx Gastrointestinal Disorders: Yes Hx Gastroesophageal Reflux: Yes (had endo; lesions in the esophagus) Other/Comment: Diabetic Gastroparesis - Genitourinary/Gynecological Hx Genitourinary Disorders: No - Psychiatric Hx Anxiety: Yes Hx Depression: Yes Hx Physical Abuse: No Hx Sexual Abuse: No Hx Substance Use: No - Surgical History Other/Comment: Amputation of half the Rt. foot. - Anesthesia Hx Anesthesia: Yes Hx Anesthesia Reactions: No Hx Malignant Hyperthermia: No - Suicidal Assessment Feels Threatened In Home Enviroment: No Family/Social History - Physician Review Nursing Documentation Reviewed: Yes Family/Social History: Unknown Family HX Smoking Status: Never Smoked Hx Alcohol Use: No Hx Substance Use: No Allergies/Home Meds Allergies/Adverse Reactions: Allergies No Known Allergies Allergy (Verified 02/08/17 09:59) Home Medications: Home Meds Medication Instructions Recorded Confirmed Lisinopril [Prinivil] 10 mg PO DAILY 09/23/15 01/27/17 Metoclopramide [Reglan] 5 mg PO QID 09/23/15 02/08/17 DULoxetine [Cymbalta] 60 mg PO HS 07/13/16 01/28/17 Insulin Lispro [humALOG] 0 units SC AC 07/13/16 02/08/17 Omeprazole 40 mg PO DAILY 07/13/16 01/27/17 Furosemide [Lasix] 20 tab PO DAILY 11/28/16 01/27/17 Isosorbide Mononitrate [Isosorbide 30 mg PO DAILY 11/28/16 01/27/17 Mononitrate ER] Labetalol [Trandate] 200 mg PO BID 11/28/16 01/27/17 Midodrine [Proamatine] 2.5 mg PO DAILY 11/28/16 02/08/17 Amitriptyline [Elavil] 10 mg PO DAILY 01/27/17 02/08/17 Gabapentin 400 mg PO TID 01/27/17 02/08/17 Insulin Detemir [Levemir] 0 units SUBCUT 01/27/17 02/08/17 chlordiazePOXIDE-Clinidium [Librax 1 tab PO BID 01/27/17 01/27/17 5 MG-2.5 MG] DULoxetine [Cymbalta] 20 mg PO QAM 01/28/17 01/28/17 traMADol [Ultram] 100 mg PO Q6H PRN 01/28/17 02/08/17 Aluminum Hydroxide/Magnesium 30 ml PO PRN PRN 02/08/17 02/08/17 [Maalox Plus 30 ml] FLUoxetine Elix [Prozac] 30 mg PO DAILY 02/08/17 02/08/17 LORazepam [Ativan] 0.5 mg PO PRN PRN 02/08/17 02/08/17 Mirtazapine [Remeron] 7.5 mg PO HS 02/08/17 02/08/17 Pantoprazole [Protonix] 40 mg PO DAILY 02/08/17 02/08/17 Review of Systems - Review of Systems Systems not reviewed;Unavailable: Uncooperative Respiratory: absent: SOB Gastrointestinal: Abdominal Pain (epigastric pain ) Genitourinary Female: absent: Dysuria, Hematuria Physical Exam Vital Signs Reviewed: Yes Vital Signs Temp Pulse Resp BP Pulse Ox 02/08/17 15:57 74 18 120/61 97 02/08/17 14:57 123 H 20 143/46 L 97 02/08/17 13:57 75 20 134/79 97 02/08/17 13:15 76 20 144/91 H 98 02/08/17 12:11 78 18 142/71 97 02/08/17 11:11 80 20 158/77 H 96 02/08/17 09:53 98.4 F 84 16 163/99 H 95 Temperature: Afebrile Blood Pressure: Hypertensive Pulse: Regular Respiratory Rate: Normal Appearance: Positive for: Well-Appearing, Non-Toxic, Comfortable Pain Distress: None Mental Status: Positive for: Alert and Oriented X 3 - Systems Exam Head: Present: Atraumatic, Normocephalic Pupils: Present: PERRL Extroacular Muscles: Present: EOMI Conjunctiva: Present: Normal Neck: Present: Normal Range of Motion Respiratory/Chest: Present: Clear to Auscultation, Good Air Exchange. No: Respiratory Distress, Accessory Muscle Use Cardiovascular: Present: Regular Rate and Rhythm, Normal S1, S2. No: Murmurs Abdomen: Present: Normal Bowel Sounds. No: Tenderness, Distention, Peritoneal Signs Upper Extremity: Present: Normal ROM. No: Cyanosis, Edema Lower Extremity: Present: Normal ROM. No: Edema Neurological: Present: GCS=15, CN II-XII Intact, Speech Normal Skin: Present: Warm, Dry, Normal Color. No: Rashes Psychiatric: Present: Alert, Oriented x 3, Normal Insight, Normal Concentration Medical Decision Making ED Course and Treatment: 02/08/17 Impression: 56 year old female sent by psych unit B5 due to elevated potassium levels and complaining of epigastric abdominal pain. Poor historian & uncooperative. Plan: -- EKG -- CT abdomen and pelvis -- Chest X-ray -- Urinalysis -- Labs -- Sodium Chloride -- Reassess and disposition Progress Notes: EKG: Ordered, reviewed, and independently interpreted the EKG. Rate : 89 BPM Rhythm : NSR Interpretation : No ST-segment elevations or depressions, no T-wave inversions, normal intervals. 02/08/17 13:05 Chest X-ray: Creator : ANTWAN AGUIRRE MD COMPARISON:01/27/2017 FINDINGS: LUNGS: No active pulmonary disease. PLEURA: No significant pleural effusion identified, no pneumothorax apparent. CARDIOVASCULAR: Normal. OSSEOUS STRUCTURES: No significant abnormalities. VISUALIZED UPPER ABDOMEN: Normal. OTHER FINDINGS: None. IMPRESSION: No active disease. - Lab Interpretations Lab Results: 02/08/17 10:45 02/08/17 10:45 Lab Results 02/08/17 12:17: POC Glucose (mg/dL) 259 H 02/08/17 11:11: pO2 116 H, VBG pH 7.42, VBG pCO2 52.0, VBG HCO3 33.7 H, VBG Total CO2 35.3 H, VBG O2 Sat (Calc) 97.2 H, VBG Base Excess 7.6 H, VBG Potassium 5.5 H, Glucose 366 H, Lactate 1.6, FiO2 21.0, Sodium 137.0, Chloride 99.0, Venous Blood Potassium 5.5 H 02/08/17 11:11: PT 10.7, INR 0.99, APTT 24.9 02/08/17 10:45: Sodium 136, Potassium 5.2 H, Chloride 96, Carbon Dioxide 29, Anion Gap 16, BUN 40 H, Creatinine 1.0, Est GFR ( Amer) > 60, Est GFR ( Non-Af Amer) 57, Random Glucose 349 H* D, Calcium 9.7, Phosphorus 6.2 H, Magnesium 2.1, Total Bilirubin 0.8, AST 75 H D, ALT 59 H, Alkaline Phosphatase 95, Total Protein 6.9, Albumin 4.1, Globulin 2.8, Albumin/Globulin Ratio 1.5, Lipase 161 02/08/17 10:45: WBC 19.3 H, RBC 4.85, Hgb 13.7, Hct 40.0, MCV 82.5, MCH 28.2, MCHC 34.3, RDW 12.9, Plt Count 243, MPV 10.2, Gran % 89.8 H, Lymph % (Auto) 7.1 L, Ida % (Auto) 2.8, Eos % (Auto) 0.1 L, Baso % (Auto) 0.2, Gran # 17.38 H, Lymph # 1.4, Ida # 0.5, Eos # 0.0, Baso # 0.03 I have reviewed the lab results: Yes - RAD Interpretation Radiology Orders: 02/08/17 09:56 CHEST PORTABLE [RAD] Stat Warp Knit Operator: Radiologist - EKG Interpretation Interpreted by ED Physician: Yes Type: 12 lead EKG - Medication Orders Current Medication Orders: Discontinued Medications Sodium Chloride 1,769.01 ml/ (IV SUPPLIES) 1,769.01 mls @ 3,538.02 mls/hr IV STAT STA PRN Reason: 60 ML/KG/HR Stop: 02/08/17 09:57 Last Admin: 02/08/17 10:43 Dose: 3,538.02 mls/hr Ciprofloxacin (Cipro 400mg/200ml Dsw) 400 mg in 200 mls @ 133.3 mls/hr IVPB STAT STA PRN Reason: Protocol Stop: 02/08/17 12:54 Last Admin: 02/08/17 12:21 Dose: 133.3 mls/hr Metronidazole (Flagyl) 250 mg in 50 mls @ 100 mls/hr IVPB STAT STA PRN Reason: Protocol Stop: 02/08/17 11:53 Last Admin: 02/08/17 11:52 Dose: 100 mls/hr Iohexol (Omnipaque 240 (50 Ml)) Confirm Administered Dose 50 ml .ROUTE .STK-MED ONE Stop: 02/08/17 10:43 - Scribe Statement The provider has reviewed the documentation as recorded by the Scribe 02/08/2017 Briseida Alvarengaa Provider Scribe Attestation: All medical record entries made by the Scribe were at my direction and personally dictated by me. I have reviewed the chart and agree that the record accurately reflects my personal performance of the history, physical exam, medical decision making, and the department course for this patient. I have also personally directed, reviewed, and agree with the discharge instructions and disposition. Disposition/Present on Arrival - Present on Arrival Any Indicators Present on Arrival: No History of DVT/PE: No History of Uncontrolled Diabetes: No Urinary Catheter: No History of Decub. Ulcer: No History Surgical Site Infection Following: None - Disposition Have Diagnosis and Disposition been Completed?: Yes Diagnosis: Abdominal pain, Hyperkalemia Disposition: HOSPITALIZED Disposition Time: 14:00 Patient Plan: Admission Patient Problems: Current Active Problems Problem Status Onset Abdominal pain Acute Hyperkalemia Acute Condition: STABLE
[2017-02-08 10:50] LABS: BASO # 0.03 K/mm3 (0.0-2.0); BASO % 0.2 % (0.0-3.0); EOS % 0.1 % (1.5-5.0); GRAN # 17.38 (1.4-6.5); GRAN % 89.8 % (50.0-68.0); LYMPH # 1.4 (1.2-3.4); LYMPH % 7.1 % (22.0-35.0); MEAN CELL VOLUME 82.5 fl (80.0-105.0); MEAN CORPUSCULAR HEMOGLOBIN 28.2 pg (25.0-35.0); MEAN CORPUSCULAR HGB CONC 34.3 g/dl (31.0-37.0); MEAN PLATELET VOLUME 10.2 fl (7.0-11.0); MONO # 0.5 (0.1-0.6); MONO % 2.8 % (1.0-6.0); RED CELL DISTRIBUTION WIDTH 12.9 % (11.5-14.5); WHITE BLOOD COUNT 19.3 10^3/ul (4.5-11.0)
[2017-02-08 10:59] LABS: ALB/GLOB RATIO 1.5 (1.1-1.8); ALKALINE PHOSPHATASE 95 U/L (38-126); ALT/SGPT 59 U/L (7-56); AST/SGOT 75 U/L (14-36); BILIRUBIN,TOTAL 0.8 mg/dL (0.2-1.3); BLOOD UREA NITROGEN 40 mg/dL (7-21); CALCIUM 9.7 mg/dL (8.4-10.5); CARBON DIOXIDE 29 mmol/L (21-33); CHLORIDE 96 mmol/L (95-110); GFR AFRICAN-AMERICAN > 60; LIPASE 161 U/L (23-300); MAGNESIUM 2.1 mg/dL (1.7-2.2); PHOSPHOROUS 6.2 mg/dL (2.5-4.5); POTASSIUM 5.2 mmol/L (3.6-5.0); SODIUM 136 mmol/L (132-148); TOTAL PROTEIN 6.9 g/dL (5.8-8.3)
[2017-02-08 11:03] LABS: GLUCOSE,RANDOM 349 mg/dL (70-110)
[2017-02-08 11:15] LABS: VENOUS BLOOD GAS BASE EXCESS 7.6 mmol/L (0.0-2.0); VENOUS BLOOD PH 7.42 (7.32-7.43)
[2017-02-08] MEDS ORDERED: Ciprofloxacin 400mg/200ml D5W 400 MG/200 ML BAG IVPB STA (11:24)
[2017-02-08] MEDS ORDERED: metroNIDAZOLE IV 250mg/50 ml 250 MG/50 ML BAG IVPB STA (11:24)
[2017-02-08 11:25] LABS: INR 0.99 (0.93-1.08); PARTIAL THROMBOPLASTIN TIME 24.9 Seconds (23.7-30.8)
--- NOTE | 2017-02-08 13:06 | RAD ---
HISTORY: Sepsis Patient COMPARISON: 01/27/2017 FINDINGS: LUNGS: No active pulmonary disease. PLEURA: No significant pleural effusion identified, no pneumothorax apparent. CARDIOVASCULAR: Normal. OSSEOUS STRUCTURES: No significant abnormalities. VISUALIZED UPPER ABDOMEN: Normal. OTHER FINDINGS: None. IMPRESSION: No active disease.
[2017-02-08] MEDS ORDERED: Pneumococcal 23-Valent Vaccine IM ONE (19:16)
[2017-02-08] MEDS: metroNIDAZOLE IV 500 mg/100 ml 500 MG/100 ML BAG IVPB SCH ×2 (21:27→21:31)
[2017-02-08] MEDS: Cefepime 1gm in NS 100ml 1 GM/100 ML BAG IVPB SCH ×2 (21:27→21:32)
[2017-02-08] MEDS ORDERED: Insulin Detemir 100 units/ml Vial (Levemir) SC SCH (22:00)
[2017-02-08] MEDS ORDERED: Sod Polystyrene Sulf 15 gm/60 ml Oral Susp PO ONE (22:00)
[2017-02-09] MEDS: Pantoprazole 40 mg EC Tab PO SCH (05:50)
[2017-02-09] MEDS: Cefepime 1gm in NS 100ml 1 GM/100 ML BAG IVPB SCH ×3 (05:50→21:54)
[2017-02-09] MEDS: metroNIDAZOLE IV 500 mg/100 ml 500 MG/100 ML BAG IVPB SCH ×3 (05:50→21:55)
[2017-02-09 07:26] LABS: BASO # 0.03 K/mm3 (0.0-2.0); BASO % 0.4 % (0.0-3.0); EOS # 0.1 (0.0-0.7); EOS % 1.3 % (1.5-5.0); GRAN # 5.45 (1.4-6.5); GRAN % 64.3 % (50.0-68.0); HEMATOCRIT 35.1 % (36.0-48.0); LYMPH # 2.5 (1.2-3.4); LYMPH % 29.2 % (22.0-35.0); MEAN CELL VOLUME 83.6 fl (80.0-105.0); MEAN CORPUSCULAR HEMOGLOBIN 27.6 pg (25.0-35.0); MEAN PLATELET VOLUME 9.7 fl (7.0-11.0); MONO # 0.4 (0.1-0.6); MONO % 4.8 % (1.0-6.0); RED CELL DISTRIBUTION WIDTH 13.1 % (11.5-14.5); WHITE BLOOD COUNT 8.5 10^3/ul (4.5-11.0)
[2017-02-09] MEDS ORDERED: Insulin Lispro 1 UNITS/0.01 ML SC SCH (07:30)
[2017-02-09] MEDS ORDERED: Dextrose 50% SYRINGE Inj (50 ml) IVP ONE (07:31)
[2017-02-09 07:45] LABS: ALB/GLOB RATIO 1.3 (1.1-1.8); ALKALINE PHOSPHATASE 69 U/L (38-126); ALT/SGPT 41 U/L (7-56); AST/SGOT 35 U/L (14-36); BILIRUBIN,TOTAL 0.5 mg/dL (0.2-1.3); BLOOD UREA NITROGEN 27 mg/dL (7-21); CALCIUM 8.6 mg/dL (8.4-10.5); CARBON DIOXIDE 33 mmol/L (21-33); CHLORIDE 102 mmol/L (95-110); GFR AFRICAN-AMERICAN > 60; POTASSIUM 3.6 mmol/L (3.6-5.0); SODIUM 143 mmol/L (132-148); TOTAL PROTEIN 5.9 g/dL (5.8-8.3)
[2017-02-09 07:56] LABS: GLUCOSE,RANDOM 41 mg/dL (70-110)
--- NOTE | 2017-02-09 10:35 | PN ---
DATE: SUBJECTIVE: She was transferred from the psychiatric floor to the ER with a 20,000 white count on routine check. She was not feeling well, some abdominal pain. The ER lab with a 19,000 white count. ID was called in. She was put on Maxipime. She is also on aspirin, Cymbalta, Elavil, Flagyl IV, insulin, Levemir, Maxipime, Neurontin, Protonix, Reglan, Trandate, and Zestril. She is comfortable in bed, doing better this morning. Good spirits. Less pain. PHYSICAL EXAMINATION: VITAL SIGNS: She has a 97.4 temperature, 69 pulse, 136/80 blood pressure, 20 respiratory rate, and 97% O2 sat on room air. HEENT: Head is atraumatic and normocephalic. Throat is moist. NECK: Supple. HEART: Regular rate. LUNGS: Decreased breath sounds, but clear. ABDOMEN: Soft and nontender. No guarding. No rebound, better than yesterday. EXTREMITIES: Have no edema. LABORATORY DATA: Her white count drop to 8.5 this morning from 19.3 yesterday, 11.6 hemoglobin, 35.1 hematocrit with 217 platelets. Sodium 143, potassium is 3.6, BUN is 27, creatinine 1 better, GFR is 57, last blood sugar was 41, 105, 336, and calcium is 8.6. Total bilirubin is 0.5, AST is better at 35, ALT is 41, and alkaline phosphatase 69. Total protein is 5.9. She has been seen by . Chest x-ray showed no active disease. ASSESSMENT AND PLAN: She has consults with infectious disease, psychiatry, and endocrinology. Antibiotics were written by infectious disease and orders were given for insulin by the relations mgr. Continue physical therapy, get out of bed to chair, continue with aggressive treatment and care on Ting Monaco who is here with a leukocytosis, probably sepsis she has had it before. Josafat Dent DO [facility]
--- NOTE | 2017-02-09 10:51 | PN ---
DATE: SUBJECTIVE: The patient is a 56-year-old female with history of depression, multiple medical issues including CVA, diabetes. The patient was transferred from the psychiatric inpatient unit to the emergency room for evaluation of epigastric pain as well as high potassium level as well as WBC cell elevation and rule out sepsis. The patient was followed up by this medical writer at the day of the morning time. The patient seemed to be very sedated and drowsy. The patient was not able to participate in interview, was falling asleep during the interview. Collaterals were obtained from the patient's primary care physician, Dr. Dent. As of now, the patient was staying on the medical side. This medical writer reviewed the medications. The patient was weaned off Cymbalta in the psychiatric inpatient unit and right now, she is on Prozac 30 mg but the dose will be decreased. The patient will be continued on Remeron 7.5 mg at the nighttime as needed. Neurontin was increased to 300 mg 3 times a day. MEDICATIONS: Reviewed. PHYSICAL EXAMINATION: VITAL SIGNS: Reviewed. LABS: Reviewed. REPORTS: Reviewed. MENTAL STATUS EXAMINATION: This medical writer was not able to assess because the patient was falling asleep. IMPRESSION: Rule out major depressive disorder. Rule out mood disorder due to general medical condition. Rule out anxiety disorder due to general medical condition. Rule out adjustment disorder with depressed and anxious mood. PLAN: Continue current management. Continue current medication. Case was discussed with the nursing staff as well as Dr. Dent. We will followup and advice accordingly. Should you have any questions give me a call back. Lidia Napier MD
--- NOTE | 2017-02-09 11:00 | US ---
HISTORY: rule out biliary tract disease COMPARISON: None. TECHNIQUE: Sonographic evaluation of the abdomen. FINDINGS: LIVER: Measures 16.0 cm. Normal echogenicity of the liver parenchyma. No mass. No intrahepatic bile duct dilatation. GALLBLADDER: Status post cholecystectomy COMMON BILE DUCT: Measures 8 mm. Consistent with prior cholecystectomy PANCREAS: Unremarkable as visualized. No mass. No ductal dilatation. RIGHT KIDNEY: Measures 11.6cm. Normal echogenicity. No calculus, mass, or hydronephrosis. LEFT KIDNEY: Measures 12.8cm. Normal echogenicity. No calculus or hydronephrosis. Mid to upper pole simple cortical cyst, 1.2 x 1.4 x 1.8 cm. SPLEEN: Normal in size and contour. No mass. AORTA: No aneurysmal dilatation. IVC: Unremarkable. OTHER FINDINGS: None. IMPRESSION: 1.8 cm left renal cortical cyst. Status post cholecystectomy. Mild dilatation of common bile duct to 8 mm diameter consistent with prior cholecystectomy. Otherwise unremarkable.
--- NOTE | 2017-02-09 12:36 | CP.PCM.PN ---
<CristoferRuthann - Last Filed: 02/09/17 12:32> Subjective - Date & Time of Evaluation Date of Evaluation: 02/09/17 Time of Evaluation: 12:32 - Subjective Subjective: Gastroenterology Fellow/PGY5 Progress Note Patient denies abdominal pain, nausea, or vomiting. Tolerating clear liquids. One bowel movement yesterday. A 12-point review of systems negative except for as above. Objective - Vital Signs/Intake and Output Vital Signs (last 24 hours): Temp Pulse Resp BP Pulse Ox 97.4 F L 69 20 136/80 97 02/09/17 08:00 02/09/17 08:00 02/09/17 08:00 02/09/17 08:00 02/09/17 08:00 Intake and Output: 02/09/17 02/09/17 06:59 18:59 Intake Total 120 Balance 120 - Medications Medications: Current Medications Aspirin (Aspirin Chewable) 81 mg PO DAILY [facility] Last Admin: 02/09/17 11:53 Dose: 81 mg Fluoxetine HCl (Prozac) 20 mg PO DAILY [facility] Last Admin: 02/09/17 11:52 Dose: 20 mg Gabapentin (Neurontin) 300 mg PO TID [facility] PRN Reason: Protocol Last Admin: 02/09/17 11:46 Dose: 300 mg Cefepime HCl (Maxipime 1gm) 1 gm in 100 mls @ 100 mls/hr IVPB Q8 [facility] PRN Reason: Protocol Stop: 02/15/17 22:01 Last Admin: 02/09/17 05:50 Dose: 100 mls/hr Metronidazole (Flagyl) 500 mg in 100 mls @ 100 mls/hr IVPB Q8 [facility] PRN Reason: Protocol Last Admin: 02/09/17 05:50 Dose: 100 mls/hr Insulin Detemir (Levemir) 32 unit SC HS [facility] Last Admin: 02/08/17 21:28 Dose: 32 unit Insulin Human Lispro (Humalog) 10 units SC AC [facility] Insulin Human Lispro (Humalog Low) 0 units SC ACHS [facility] PRN Reason: Protocol Labetalol HCl (Trandate) 200 mg PO BID [facility] Last Admin: 02/09/17 11:53 Dose: 200 mg Lisinopril (Zestril) 10 mg PO DAILY [facility] Last Admin: 09/12/17 11:52 Dose: 10 mg Metoclopramide HCl (Reglan) 5 mg PO BID [facility] Last Admin: 02/09/17 11:53 Dose: 5 mg Mirtazapine (Remeron) 7.5 mg PO HS PRN PRN Reason: Insomnia Pantoprazole Sodium (Protonix Ec Tab) 40 mg PO 0600 [facility] Last Admin: 02/09/17 05:50 Dose: 40 mg - Labs Labs: 02/09/17 07:21 02/09/17 07:21 PT 10.7 Seconds (9.9-11.8) 02/08/17 11:11 INR 0.99 (0.93-1.08) 02/08/17 11:11 APTT 24.9 Seconds (23.7-30.8) 02/08/17 11:11 - Constitutional Appears: Non-toxic, No Acute Distress - Head Exam Head Exam: ATRAUMATIC, NORMOCEPHALIC - Eye Exam Eye Exam: EOMI, PERRL Pupil Exam: PERRL. absent: Miosis, Mydriatic - ENT Exam ENT Exam: Mucous Membranes Moist, Normal Oropharynx - Neck Exam Neck Exam: Full ROM, Normal Inspection - Respiratory Exam Respiratory Exam: Clear to Ausculation Bilateral. absent: Rales, Rhonchi, Wheezes - Cardiovascular Exam Cardiovascular Exam: RRR, +S1, +S2. absent: Gallop, Rubs - GI/Abdominal Exam GI & Abdominal Exam: Soft, Normal Bowel Sounds. absent: Distended, Firm, Guarding, Rigid, Tenderness, Organomegaly, Rebound - Extremities Exam Extremities Exam: Normal Inspection. absent: Pedal Edema - Neurological Exam Neurological Exam: Alert, Awake - Psychiatric Exam Psychiatric exam: Normal Affect, Normal Mood - Skin Skin Exam: Dry, Intact, Normal Color, Warm Assessment and Plan - Assessment and Plan (Free Text) Assessment: 56 year old female with history of Hypertension, Diabetes, gastroparesis, MDD, LAUREN, TIA/CVA, and recently diagnosed seizures presenting from Psychiatry for depression to ER due to abdominal pain, leukocytosis, hyperkalemia, and renal insufficiency. Active treatment of hyperglycemia, resolved hyperkalemia, and improved abdominal pain. Last EGD 03/2016 showed distal esophagus superficial ulcers and gastritis. Last colonoscopy 02/2014 to evaluate diarrhea showed 8mm splenic flexure tubular adenoma and negative for microscopic colitis. Plan: >improve glycemic control >endocrinology managing >CT A/P PO contrast- severe constipation >continue Miralax daily >Abdominal U/S- no acute pathology >normal LFTs >ID managing antibiotics >caution Reglan prokinetic with extrapyramidal side effects -history of TIA/CVA and diagnosis of new onset seizure >advance to low fat/diabetic small frequent meals as tolerated >will follow clinical course <Willie Jaime - Last Filed: 02/09/17 12:57> Objective - Vital Signs/Intake and Output Vital Signs (last 24 hours): Temp Pulse Resp BP Pulse Ox 97.4 F L 69 20 136/80 97 02/09/17 08:00 02/09/17 08:00 02/09/17 08:00 02/09/17 08:00 02/09/17 08:00 Intake and Output: 02/09/17 02/09/17 06:59 18:59 Intake Total 120 Balance 120 - Medications Medications: Current Medications Aspirin (Aspirin Chewable) 81 mg PO DAILY [facility] Last Admin: 02/09/17 11:53 Dose: 81 mg Fluoxetine HCl (Prozac) 20 mg PO DAILY [facility] Last Admin: 02/09/17 11:52 Dose: 20 mg Gabapentin (Neurontin) 300 mg PO TID [facility] PRN Reason: Protocol Last Admin: 02/09/17 11:46 Dose: 300 mg Cefepime HCl (Maxipime 1gm) 1 gm in 100 mls @ 100 mls/hr IVPB Q8 [facility] PRN Reason: Protocol Stop: 02/15/17 22:01 Last Admin: 02/09/17 05:50 Dose: 100 mls/hr Metronidazole (Flagyl) 500 mg in 100 mls @ 100 mls/hr IVPB Q8 [facility] PRN Reason: Protocol Last Admin: 02/09/17 05:50 Dose: 100 mls/hr Insulin Detemir (Levemir) 32 unit SC HS [facility] Last Admin: 02/08/17 21:28 Dose: 32 unit Insulin Human Lispro (Humalog) 10 units SC AC [facility] Insulin Human Lispro (Humalog Low) 0 units SC ACHS [facility] PRN Reason: Protocol Ketorolac Tromethamine (Toradol) 30 mg IVP Q8H PRN PRN Reason: Pain, moderate (4-7) Labetalol HCl (Trandate) 200 mg PO BID [facility] Last Admin: 02/09/17 11:53 Dose: 200 mg Lisinopril (Zestril) 10 mg PO DAILY [facility] Last Admin: 02/09/17 11:52 Dose: 10 mg Metoclopramide HCl (Reglan) 5 mg PO BID [facility] Last Admin: 02/09/17 11:53 Dose: 5 mg Mirtazapine (Remeron) 7.5 mg PO HS PRN PRN Reason: Insomnia Pantoprazole Sodium (Protonix Ec Tab) 40 mg PO 0600 [facility] Last Admin: 02/09/17 05:50 Dose: 40 mg Polyethylene Glycol (Miralax) 17 gm PO DAILY [facility] - Labs Labs: 02/09/17 07:21 02/09/17 07:21 PT 10.7 Seconds (9.9-11.8) 02/08/17 11:11 INR 0.99 (0.93-1.08) 02/08/17 11:11 APTT 24.9 Seconds (23.7-30.8) 02/08/17 11:11 Attending/Attestation - Attestation I have personally seen and examined this patient.: Yes I have fully participated in the care of the patient.: Yes I have reviewed all pertinent clinical information, including history, physical exam and plan: Yes Notes (Text): 02/09/17 12:54 56 year old female h/o HTN, DM, Gastroparesis, Depression, CVA a/w hyperglycemia again. 1. Gastroparesis Plan: -glycemic control continues to be a problem for her which results in exacerbations of gastroparesis -appreciate endocrinology evaluation and treatment -continue bowel regimen -advance diet as tolerated / liquids first / small freq meals
[2017-02-09] MEDS: POLYETHYLENE GLYCOL 3350 17 GM/Dose PACKET PO SCH ×2 (12:59→13:04)
--- NOTE | 2017-02-09 13:09 | CARD ---
APPROVED REPORT EKG Measurement Heart [id number] <Conclusion> Normal sinus rhythm with sinus arrhythmia Normal ECG
[2017-02-09] MEDS: Insulin Lispro (humaLOG) LOW Coverage SC SCH ×3 (16:49→21:44)
[2017-02-09] MEDS: Insulin Lispro 1 UNITS/0.01 ML SC SCH (17:37)
[2017-02-09] MEDS: Insulin Detemir 100 units/ml Vial (Levemir) SC SCH (21:56)
--- NOTE | 2017-02-10 01:35 | CON ---
DATE: 02/09/2017 LOCATION: The patient is seen earlier today in #575, bed 1. CHIEF COMPLAINT: Epigastric pain for several days. HISTORY OF PRESENT ILLNESS: This is a 56-year-old female known to me from previous admission with a history of diabetes mellitus and diabetic gastroparesis, hypertension, TIA, esophageal ulcers, who was recently discharged from the hospital. The patient had received macrolides for her diabetic gastroparesis, and now returns with epigastric pain and discomfort with nausea, and she denies any fevers, any chills. No chest pain, shortness of breath, and no dysuria or frequency. No headaches or blurred vision. PAST MEDICAL HISTORY: Significant for hypertension, diabetes, diabetic gastroparesis, esophageal ulcers, and TIA. PAST SURGICAL HISTORY: Significant for , cholecystectomy, hysterectomy and a right foot partial amputation. MEDICATIONS AT HOME: Include the patient to be on Keppra, on Protonix, Reglan, Cozaar, Cymbalta, Elavil, tramadol, and Trandate. PHYSICAL EXAMINATION VITAL SIGNS: The patient is in bed. The patient is watched out and with a temperature of 97.4, blood pressure is 136/80, pulse of 74, and respiratory rate of 18. HEENT: Unremarkable. NECK: Supple. LUNGS: Decreased breath sounds. HEART: Normal S1 and S2. ABDOMEN: Soft. No rebound, no guarding, no masses. LABORATORY DATA: There is a white count of 19,300, hemoglobin of 13, platelets of 243, and 89% granulocytosis and repeat white count from today is 8.5. Coagulation with INR of 0.99 and PT 10.7 with APTT is noted and ABGs are reviewed. BUN is 27, creatinine of 1.0. LFTs are noted. Hepatitis profile is pending. Blood cultures of no growth. Chest x-ray is no active disease. Abdominal ultrasound is noted. Dr. Josafat Dent's note is reviewed. ASSESSMENT AND PLAN: This is a 56-year-old female admitted with leukocytosis and did have a heart rate of 123 yesterday which serves systemic inflammatory response syndrome with epigastric discomfort, currently on Flagyl and cefepime. We will check on the blood, urine culture. May require repeat CAT scan, most likely from her gastroparesis. We will make further recommendations upon availability of initial results. Marc Sales MD [facility] # [id number]
[2017-02-10] MEDS: metroNIDAZOLE IV 500 mg/100 ml 500 MG/100 ML BAG IVPB SCH (05:34)
[2017-02-10] MEDS: Cefepime 1gm in NS 100ml 1 GM/100 ML BAG IVPB SCH (05:34)
[2017-02-10] MEDS: Pantoprazole 40 mg EC Tab PO SCH (05:35)
[2017-02-10 07:31] LABS: HEMATOCRIT 32.5 % (36.0-48.0); MEAN CELL VOLUME 83.5 fl (80.0-105.0); MEAN CORPUSCULAR HEMOGLOBIN 27.2 pg (25.0-35.0); MEAN CORPUSCULAR HGB CONC 32.6 g/dl (31.0-37.0); MEAN PLATELET VOLUME 9.7 fl (7.0-11.0); RED CELL DISTRIBUTION WIDTH 12.9 % (11.5-14.5); WHITE BLOOD COUNT 9.1 10^3/ul (4.5-11.0)
[2017-02-10 07:59] LABS: ALB/GLOB RATIO 1.5 (1.1-1.8); ALKALINE PHOSPHATASE 69 U/L (38-126); ALT/SGPT 42 U/L (7-56); AST/SGOT 26 U/L (14-36); BILIRUBIN,TOTAL 0.3 mg/dL (0.2-1.3); BLOOD UREA NITROGEN 23 mg/dL (7-21); CALCIUM 8.5 mg/dL (8.4-10.5); CARBON DIOXIDE 32 mmol/L (21-33); CHLORIDE 101 mmol/L (98-107); GFR AFRICAN-AMERICAN > 60; GLUCOSE,RANDOM 152 mg/dL (70-110); POTASSIUM 3.9 mmol/L (3.6-5.0); SODIUM 142 mmol/L (132-148); TOTAL PROTEIN 5.7 g/dL (5.8-8.3)
--- NOTE | 2017-02-10 08:16 | CP.PCM.PN ---
<Max Bach - Last Filed: 02/10/17 12:31> Subjective - Date & Time of Evaluation Date of Evaluation: 02/10/17 Time of Evaluation: 08:11 - Subjective Subjective: GI Progress Note for Dr. Abrams Pt seen and examined at bedside. Pt doing well overnight with no acute complaints. Pt reports having nausea overnight with no episodes of vomiting. Her abdominal pain is tolerable at this time. She is tolerating her diet as well. 12 point ROS performed, negative unless otherwise stated. Objective - Vital Signs/Intake and Output Vital Signs (last 24 hours): Temp Pulse Resp BP Pulse Ox 98 F 70 18 122/76 99 02/09/17 16:00 02/09/17 22:00 02/09/17 16:00 02/09/17 16:00 02/09/17 16:00 - Medications Medications: Current Medications Aspirin (Aspirin Chewable) 81 mg PO DAILY [facility] Last Admin: 02/09/17 11:53 Dose: 81 mg Fluoxetine HCl (Prozac) 20 mg PO DAILY [facility] Last Admin: 02/09/17 11:52 Dose: 20 mg Gabapentin (Neurontin) 300 mg PO TID [facility] PRN Reason: Protocol Last Admin: 02/09/17 18:09 Dose: 300 mg Cefepime HCl (Maxipime 1gm) 1 gm in 100 mls @ 100 mls/hr IVPB Q8 [facility] PRN Reason: Protocol Stop: 02/15/17 22:01 Last Admin: 02/10/17 05:34 Dose: 100 mls/hr Metronidazole (Flagyl) 500 mg in 100 mls @ 100 mls/hr IVPB Q8 [facility] PRN Reason: Protocol Last Admin: 02/10/17 05:34 Dose: 100 mls/hr Insulin Detemir (Levemir) 20 unit SC HS [facility] Last Admin: 02/09/17 21:56 Dose: 20 unit Insulin Human Lispro (Humalog Low) 0 units SC ACHS [facility] PRN Reason: Protocol Last Admin: 02/09/17 21:44 Dose: 3 units Insulin Human Lispro (Humalog) 4 units SC AC [facility] Last Admin: 02/09/17 17:37 Dose: 4 units Ketorolac Tromethamine (Toradol) 30 mg IVP Q8H PRN PRN Reason: Pain, moderate (4-7) Stop: 02/14/17 12:53 Last Admin: 02/10/17 04:03 Dose: 30 mg Labetalol HCl (Trandate) 200 mg PO BID [facility] Last Admin: 02/09/17 18:09 Dose: 200 mg Lisinopril (Zestril) 10 mg PO DAILY [facility] Last Admin: 02/09/17 11:52 Dose: 10 mg Metoclopramide HCl (Reglan) 5 mg PO BID [facility] Last Admin: 02/09/17 18:09 Dose: 5 mg Mirtazapine (Remeron) 7.5 mg PO HS PRN PRN Reason: Insomnia Last Admin: 02/09/17 21:55 Dose: 7.5 mg Pantoprazole Sodium (Protonix Ec Tab) 40 mg PO 0600 [facility] Last Admin: 02/10/17 05:35 Dose: 40 mg Polyethylene Glycol (Miralax) 17 gm PO DAILY [facility] Last Admin: 02/09/17 13:04 Dose: Not Given - Labs Labs: 02/10/17 07:25 02/09/17 07:21 PT 10.7 Seconds (9.9-11.8) 02/08/17 11:11 INR 0.99 (0.93-1.08) 02/08/17 11:11 APTT 24.9 Seconds (23.7-30.8) 02/08/17 11:11 - Constitutional Appears: Non-toxic, No Acute Distress - Head Exam Head Exam: ATRAUMATIC, NORMAL INSPECTION, NORMOCEPHALIC - ENT Exam ENT Exam: Mucous Membranes Moist, Normal Exam - Respiratory Exam Respiratory Exam: Clear to Ausculation Bilateral, NORMAL BREATHING PATTERN. absent: Rales, Rhonchi, Wheezes - Cardiovascular Exam Cardiovascular Exam: RRR, +S1, +S2 - GI/Abdominal Exam GI & Abdominal Exam: Soft, Tenderness (Epigastric), Normal Bowel Sounds. absent : Distended, Guarding, Rebound - Extremities Exam Extremities Exam: absent: Calf Tenderness, Pedal Edema - Neurological Exam Neurological Exam: Alert, Awake, Oriented x3 - Psychiatric Exam Psychiatric exam: Normal Affect, Normal Mood - Skin Skin Exam: Intact, Normal Color, Warm Assessment and Plan - Assessment and Plan (Free Text) Plan: 56 y/o F with PMH of HTN, DM, gastroparesis, major depressive disorder, generalized anxiety disorder, TIA, CVA, and seizure disorder presents with abdominal pain secondary to gastroparesis in the setting of uncontrolled DM. Plan: EGD tomorrow NPO after midnight Strict Glycemic control, Endocrinology managing Continue small, low fat/diabetic meals Continue Miralax daily, titrating to 1-2 BM's per day Caution with continued Reglan use due to neurological side effect in patient with extensive neuro hx [place], PGY-2 <Benton Abrams MD - Last Filed: 02/10/17 15:33> Objective - Vital Signs/Intake and Output Vital Signs (last 24 hours): Temp Pulse Resp BP Pulse Ox 98.9 F 86 20 155/84 H 93 L 02/10/17 07:30 02/10/17 07:30 02/10/17 07:30 02/10/17 07:30 02/10/17 07:30 - Medications Medications: Current Medications Aspirin (Aspirin Chewable) 81 mg PO DAILY [facility] Last Admin: 02/10/17 09:23 Dose: 81 mg Fluoxetine HCl (Prozac) 20 mg PO DAILY [facility] Last Admin: 02/10/17 09:23 Dose: 20 mg Gabapentin (Neurontin) 300 mg PO TID [facility] PRN Reason: Protocol Last Admin: 02/10/17 14:19 Dose: 300 mg Insulin Detemir (Levemir) 20 unit SC HS [facility] Last Admin: 02/09/17 21:56 Dose: 20 unit Insulin Human Lispro (Humalog Low) 0 units SC [facility] PRN Reason: Protocol Last Admin: 02/10/17 12:20 Dose: Not Given Insulin Human Lispro (Humalog) 4 units SC AC [facility] Last Admin: 02/10/17 12:19 Dose: Not Given Ketorolac Tromethamine (Toradol) 30 mg IVP Q8H PRN PRN Reason: Pain, moderate (4-7) Stop: 02/14/17 12:53 Last Admin: 02/10/17 12:19 Dose: 30 mg Labetalol HCl (Trandate) 200 mg PO BID [facility] Last Admin: 02/10/17 09:23 Dose: 200 mg Lisinopril (Zestril) 10 mg PO DAILY [facility] Last Admin: 02/10/17 09:23 Dose: 10 mg Lorazepam (Ativan) 0.5 mg IVP BID PRN; Protocol PRN Reason: Anxiety Last Admin: 02/10/17 14:17 Dose: 0.5 mg Metoclopramide HCl (Reglan) 5 mg PO BID [facility] Last Admin: 02/10/17 09:23 Dose: 5 mg Mirtazapine (Remeron) 7.5 mg PO HS PRN PRN Reason: Insomnia Last Admin: 02/09/17 21:55 Dose: 7.5 mg Pantoprazole Sodium (Protonix Ec Tab) 40 mg PO 0600 [facility] Last Admin: 02/10/17 05:35 Dose: 40 mg Polyethylene Glycol (Miralax) 17 gm PO DAILY [facility] Last Admin: 02/10/17 09:23 Dose: 17 gm - Labs Labs: 02/10/17 07:25 02/10/17 07:25 PT 10.7 Seconds (9.9-11.8) 02/08/17 11:11 INR 0.99 (0.93-1.08) 02/08/17 11:11 APTT 24.9 Seconds (23.7-30.8) 02/08/17 11:11 Attending/Attestation - Attestation I have personally seen and examined this patient.: Yes I have fully participated in the care of the patient.: Yes I have reviewed all pertinent clinical information, including history, physical exam and plan: Yes Notes (Text): 02/10/17 15:30 Patient seen and examined at bedside with GI fellow and residents. This is a 56 y/o F with PMH of HTN, DM, gastroparesis, major depressive disorder, generalized anxiety disorder, TIA, CVA, and seizure disorder presents with abdominal pain secondary to gastroparesis in the setting of uncontrolled DM. Patient has had no relief on her symptoms on pro motility medications. EGD in Mar 2016 showed distal esophageal ulcers. In setting of relapsing remitting epigatsric pain will consider EGD tomorrow. NPO past midnight. Strict Glycemic control. Continue small, low fat, low fiber/diabetic meals. Continue Miralax daily, titrating to 1-2 BM's per day
[2017-02-10] MEDS: Insulin Lispro (humaLOG) LOW Coverage SC SCH ×4 (08:20→22:20)
[2017-02-10] MEDS: Insulin Lispro 1 UNITS/0.01 ML SC SCH ×3 (08:20→17:04)
[2017-02-10] MEDS: POLYETHYLENE GLYCOL 3350 17 GM/Dose PACKET PO SCH (09:23)
--- NOTE | 2017-02-10 12:44 | PN ---
DATE: SUBJECTIVE: I saw her resting comfortably in bed this morning. She slept fairly well last night. She is doing a little bit better. She is eating some and going to the bathroom, less belly pain. She is little nervous. I discussed that she was improving and within 5 minutes, the nurse called me back stating she is crying. She is scared she is going to be discharged. She is on aspirin, dextrose, Flagyl IV, insulin, Levemir, Maxipime, MiraLax, Neurontin, Protonix, Prozac, Reglan, Remeron, Toradol, Trandate and Zestril. She is also asking for pain medications, so we gave her an extra dose of pain medication this morning. I think once we get her stabilized with infectious disease and IV antibiotics, she should go back up to psych. I do not think she is done with her emotional, psychological, and depression problems. PHYSICAL EXAMINATION: VITAL SIGNS: She has a 98.9 temperature, 86 pulse, 165/84 blood pressure, 20 respiratory rate, and 99% O2 sat on room air. HEENT: Head is atraumatic and normocephalic. Throat is moist. NECK: Supple. HEART: Regular rate. LUNGS: Decreased breath sounds, but clear. ABDOMEN: Soft, mildly distended. No guarding. No rebound. EXTREMITIES: No edema. LABORATORY DATA: She has a 142 sodium, potassium 3.9, BUN 22, creatinine 0.9, GFR greater than 60, sugar is 152, calcium is 8.5. Total bilirubin is 0.3, AST is 26, ALT is 42, alkaline phosphatase is 69. Total protein is 5.7, albumin is 3.4. White count is down to 9.1, hemoglobin 10.6, hematocrit 32.5, platelets 185. ASSESSMENT AND PLAN: She is being seen by GI, Infectious Disease and Psychiatry. I do think we need to get her back to psychiatry when we are done with her infection. Emotional outbursts of crying when you think about her going home and she hears the word improvement. For some reason, she is scared about going home. I think she needs more psychiatric care hopefully in the next day or two. Stop the antibiotics and get her back up to psychiatry about that. In the meantime, she is here for sepsis, gastroparesis, depression, seizure history. Josafat Dent DO
--- NOTE | 2017-02-10 18:37 | PN ---
SUBJECTIVE: The patient is a 56-year-old female. Initially, the patient was admitted on the medical site. The patient was found to be depressed, was transferred to the psychiatric conditions unit. Unfortunately, the patient was not doing well from the medical standpoint, the patient was transferred back to the medical site and this typewriter assembly and parts inspector is following the patient as a client consultant. The patient was seen today. The patient presented to be tearful. The patient said that she is in a lot of pain at the present moment. The patient said that she has a lot of pain in the stomach. The patient was tearful. The patient reported that she is bothering everybody. At the same time, the patient presented to be very anxious. The patient said that she is not good company today and refused to talk to this typewriter assembly and parts inspector further. The patient is on Toradol, which the patient said it is not helpful. In regard of psychiatric complaints, medical issues, and from this typewriter assembly and parts inspector's perspective, if she would be pain free, most likely, she could be presenting better. PHYSICAL EXAMINATION: VITAL SIGNS: Stable. Temperature 98.9, pulse 86, blood pressure 155/84, respirations 20, oxygen saturation is 93. MEDICATIONS: Reviewed. The patient is on aspirin, cefepime, Prozac, Neurontin, Levemir, Humalog, Toradol, labetalol, lisinopril, Reglan, Flagyl. The patient also is on Remeron 7.5 mg for the nighttime, Protonix and MiraLax. LABORATORY DATA: Reviewed. MENTAL STATUS EXAMINATION: The patient appears to be tearful, restless, moving back and forth, intermittent eye contact. Speech was minimal, underproductive. Thought process coherent and goal directed. Thought content, the patient denied visual, auditory or tactile hallucinations. The patient does not present to be psychotic. The patient denied thoughts of harming herself or others. Denied intent or plan. But reports feeling of hopelessness. Insight and judgment fair. Impulses are well controlled. IMPRESSION: Rule out major depressive disorder, rule out mood disorder due to general medical condition, rule out anxiety due to general medical condition. PLAN: Continue current management. Adequate pain management. This typewriter assembly and parts inspector will consider to change Prozac either with Wellbutrin or amitriptyline. The patient denied thoughts of harming herself or others. The patient said that she did not sleep last night because of the pain. Emotional support and empathic listening was provided to the patient. This typewriter assembly and parts inspector will add Ativan 0.5 mg twice a day as needed for anxiety. We will follow up and advise accordingly. Should they have questions give me a call back. Thank you very much for letting me participate in care of your patient. Lidia Napier MD
--- NOTE | 2017-02-10 19:27 | CP.PCM.PN ---
Subjective - Date & Time of Evaluation Date of Evaluation: 02/10/17 Time of Evaluation: 18:50 - Subjective Subjective: Still complaining of occasional abdominal pain, no nausea or vomiting, no fevers , no diarrhea. Objective - Vital Signs/Intake and Output Vital Signs (last 24 hours): Temp Pulse Resp BP Pulse Ox 98 F 70 18 122/76 99 02/09/17 16:00 02/09/17 22:00 02/09/17 16:00 02/09/17 16:00 02/09/17 16:00 - Medications Medications: Current Medications Aspirin (Aspirin Chewable) 81 mg PO DAILY [facility] Last Admin: 02/09/17 11:53 Dose: 81 mg Fluoxetine HCl (Prozac) 20 mg PO DAILY [facility] Last Admin: 02/09/17 11:52 Dose: 20 mg Gabapentin (Neurontin) 300 mg PO TID [facility] PRN Reason: Protocol Last Admin: 02/09/17 18:09 Dose: 300 mg Cefepime HCl (Maxipime 1gm) 1 gm in 100 mls @ 100 mls/hr IVPB Q8 [facility] PRN Reason: Protocol Stop: 02/15/17 22:01 Last Admin: 02/10/17 05:34 Dose: 100 mls/hr Metronidazole (Flagyl) 500 mg in 100 mls @ 100 mls/hr IVPB Q8 [facility] PRN Reason: Protocol Last Admin: 02/10/17 05:34 Dose: 100 mls/hr Insulin Detemir (Levemir) 20 unit SC HS [facility] Last Admin: 02/09/17 21:56 Dose: 20 unit Insulin Human Lispro (Humalog Low) 0 units SC ACHS [facility] PRN Reason: Protocol Last Admin: 02/09/17 21:44 Dose: 3 units Insulin Human Lispro (Humalog) 4 units SC AC [facility] Last Admin: 02/09/17 17:37 Dose: 4 units Ketorolac Tromethamine (Toradol) 30 mg IVP Q8H PRN PRN Reason: Pain, moderate (4-7) Stop: 02/14/17 12:53 Last Admin: 02/10/17 04:03 Dose: 30 mg Labetalol HCl (Trandate) 200 mg PO BID [facility] Last Admin: 02/09/17 18:09 Dose: 200 mg Lisinopril (Zestril) 10 mg PO DAILY [facility] Last Admin: 02/09/17 11:52 Dose: 10 mg Metoclopramide HCl (Reglan) 5 mg PO BID [facility] Last Admin: 02/09/17 18:09 Dose: 5 mg Mirtazapine (Remeron) 7.5 mg PO HS PRN PRN Reason: Insomnia Last Admin: 02/09/17 21:55 Dose: 7.5 mg Pantoprazole Sodium (Protonix Ec Tab) 40 mg PO 0600 [facility] Last Admin: 02/10/17 05:35 Dose: 40 mg Polyethylene Glycol (Miralax) 17 gm PO DAILY [facility] Last Admin: 02/09/17 13:04 Dose: Not Given - Labs Labs: 02/10/17 07:25 02/09/17 07:21 PT 10.7 Seconds (9.9-11.8) 02/08/17 11:11 INR 0.99 (0.93-1.08) 02/08/17 11:11 APTT 24.9 Seconds (23.7-30.8) 02/08/17 11:11 - Constitutional Appears: Non-toxic, No Acute Distress - Head Exam Head Exam: NORMAL INSPECTION - ENT Exam ENT Exam: Mucous Membranes Moist - Neck Exam Neck Exam: absent: Meningismus - Respiratory Exam Respiratory Exam: Decreased Breath Sounds - Cardiovascular Exam Cardiovascular Exam: +S1, +S2 - GI/Abdominal Exam GI & Abdominal Exam: Soft. absent: Tenderness Assessment and Plan - Assessment and Plan (Free Text) Plan: Assessment Systemic Inflammatory Response Syndrome, now resolved, probably due to gastroparesis - so far no evidence of sepsis identified HTN DM history of TIA history of esophageal ulcers S/P cholecystectomy S/P S/P hysterectomy S/P right foot partial amputation Plan has been on Cefepime and Flagyl (Day 3); leukocytosis immediately resolved the day following admission; blood cx are negative; CXR is negative; abdominal ultrasound does not show acute pathology - will d/c antibiotics and observe GI following and managing gastroparesis
[2017-02-10] MEDS: Insulin Detemir 100 units/ml Vial (Levemir) SC SCH (22:18)
--- NOTE | 2017-02-10 22:52 | PN ---
ENDO FOLLOWUP NOTE DATE: LOCATION: Room 575. SUBJECTIVE: This is a 56-year-old female with recent uncontrolled type II insulin requiring diabetes now being followed closely for metabolic management. LABORATORY DATA: Her glycemic levels are fluctuating, but much improved at this time and the latest glucose levels today have ranged from 181 to 200 and 209 mg/dL. Her latest chemistries include a BUN of 23, sodium 142, potassium 3.9, chloride 101, CO2 of 32, glucose 152 and creatinine 0.9. PLAN: So at this time, we will modify once again her bolus insulin with Humalog to be given at higher dose of 6 units subcu t.i.d. before meals to start at dinner time today as ordered. We will continue the Levemir given as a basal insulin at 20 units subcu at bedtime daily as given. We will titrate incremental as indicated to optimize metabolic control. We will also continue the low dose correction scale using Humalog insulin as given. We will obtain serial chemistries and supplement accordingly as needed. We will follow. Tita Coe MD
[2017-02-11 07:29] LABS: HEMATOCRIT 32.6 % (36.0-48.0); MEAN CELL VOLUME 83.4 fl (80.0-105.0); MEAN CORPUSCULAR HEMOGLOBIN 27.4 pg (25.0-35.0); MEAN CORPUSCULAR HGB CONC 32.8 g/dl (31.0-37.0); MEAN PLATELET VOLUME 9.7 fl (7.0-11.0); WHITE BLOOD COUNT 5.8 10^3/ul (4.5-11.0)
[2017-02-11 07:55] LABS: ALB/GLOB RATIO 1.5 (1.1-1.8); ALKALINE PHOSPHATASE 59 U/L (38-126); ALT/SGPT 38 U/L (7-56); AST/SGOT 23 U/L (14-36); BILIRUBIN,TOTAL 0.3 mg/dL (0.2-1.3); BLOOD UREA NITROGEN 16 mg/dL (7-21); CARBON DIOXIDE 33 mmol/L (21-33); CHLORIDE 102 mmol/L (98-107); GFR AFRICAN-AMERICAN > 60; GLUCOSE,RANDOM 177 mg/dL (70-110); POTASSIUM 4.2 mmol/L (3.6-5.0); SODIUM 142 mmol/L (132-148); TOTAL PROTEIN 5.4 g/dL (5.8-8.3)
[2017-02-11] MEDS: Pantoprazole 40 mg EC Tab PO SCH (08:14)
[2017-02-11] MEDS: Insulin Lispro (humaLOG) LOW Coverage SC SCH ×3 (08:21→16:50)
[2017-02-11] MEDS: Insulin Lispro 1 UNITS/0.01 ML SC SCH ×3 (08:21→16:30)
[2017-02-11 08:50] LABS: INR 1.04 (0.93-1.08)
[2017-02-11] MEDS: POLYETHYLENE GLYCOL 3350 17 GM/Dose PACKET PO SCH (10:00)
--- NOTE | 2017-02-11 11:07 | PN ---
SUBJECTIVE: She is resting comfortably in bed this morning. She had some pain last night, did not sleep much, but little bit better this morning emotionally, smiling, not crying. She is going for an EGD this morning by GI. She is up and down with her emotions. PHYSICAL EXAMINATION VITAL SIGNS: She has 98.4 temp, 80 pulse, 142/77 blood pressure, 18 respiratory rate and 100% O2 sat on room air. HEENT: Head is atraumatic and normocephalic. Throat is moist. NECK: Supple. HEART: Regular rate. LUNGS: Decreased breath sounds, but clear. ABDOMEN: Soft, mildly distended. Positive bowel sounds. No guarding. No rebound. EXTREMITIES: Have no edema. MEDICATIONS: She is on aspirin, Ativan, insulin, Levemir, MiraLax, Neurontin, Protonix, Prozac, Reglan, Remeron, Trandate, Zestril. LABORATORY DATA: She has 142 sodium, potassium 4.2, BUN is 16, creatinine 0.8, GFR is greater than 60, sugar is 177, calcium is 9.0. Total bilirubin is 0.3, AST is 23, ALT is 38, alkaline phosphatase is 69. Albumin is 3.2. White count is 5.8, hemoglobin 10.7, hematocrit 32.6, platelets 195. She is going to go for an endoscopy today. She was here for SIRS, abdominal pain. I will talk with psychiatry again to see if they will take her back up to 5B once she is medically stable for further psychological care and then do an upper endoscopy to look at the gastroparesis she has been having and look at the esophageal ulcers. We will check her labs tomorrow. Josafat Dent DO
[2017-02-11 12:22] VITALS: O2SAT 99
[2017-02-11] MEDS ORDERED: Sodium Chloride 0.9% 1,000 ML IV SCH (12:30)
[2017-02-11] MEDS ORDERED: Propofol 10 mg/ml Inj (20 ML) ONE (12:33)
[2017-02-11 13:32] VITALS: RESP 14; TEMP 98.8
[2017-02-11 13:53] VITALS: BP 139/71; PULSE 69
[2017-02-11] MEDS ORDERED: Pantoprazole 40 mg EC Tab PO SCH (16:00)
--- NOTE | 2017-02-11 16:01 | PN ---
DATE: 02/11/2017 SUBJECTIVE: The patient is in bed, in no acute distress. PHYSICAL EXAMINATION: VITAL SIGNS: Temperature is 98, blood pressure is 150/90, respiratory rate of 18, heart rate of 71. HEENT: Unremarkable. NECK: Supple. LUNGS: Decreased breath sounds. HEART: Normal S1 and S2. ABDOMEN: Soft. LABORATORY EXAMINATION: Reveals a white count of 5.8, hemoglobin of 10, platelets of 195. BUN of 16, creatinine of 0.8. Hepatitis profile was negative. Microbiology reveals the blood cultures no growth. Review of orders reveals the patient to be off of antibiotics. ASSESSMENT AND PLAN: A 56-year-old female with SIRS (systemic inflammatory response syndrome), diabetic gastroparesis, hypertension, transient ischemic attack, history of esophageal ulcer, cholecystectomy and off of antibiotics. At this point, the patient for possible upper endoscopy today. We will follow with you. Marc Sales MD
--- NOTE | 2017-02-11 16:53 | CP.PCM.PCO ---
Physician Communication Note - Physician Communication Note Physician Communication Note: pt was on OR during this appeals writer round
--- NOTE | 2017-02-12 08:31 | PN ---
ENDOCRINOLOGY FOLLOWUP NOTE LOCATION: Room #575. This is a 56-year-old female with recent uncontrolled type 2 insulin-requiring diabetes, now being followed closely for metabolic management. Her glycemic levels are fluctuating, but much improved at this time and the latest chemistry shows a BUN of 16, sodium 142, potassium 4.2, chloride 102, CO2 of 33, glucose 177 and creatinine 0.8. Her glucose values have raised from 85 to 162 and 179 mg/dL, so at this time, we will continue the basal and bolus insulin regimen as ordered with Levemir given at 20 units at bedtime and Humalog given at 6 units subQ t.i.d. before meals as ordered. We will continue the low-dose correction scale using Humalog insulin as given. She is scheduled for possible discharge today as noted. We will follow. Tita Coe MD
== END 2017-02-11 18:23 | disposition home or self-care (01) | DRG 74 ==
LOC: ED 09:48 → ERH 13:45 → 5RSO 16:42
PROVIDERS: ADMIT Family Medicine; ATTEND Family Medicine
PROC: 0DJ08ZZ Inspection of Upper Intestinal Tract, Via Natural or Artificial Opening Endoscopic (ICD-10-PCS; principal; 2017-02-11 15:30)
DX: E11.43 Type 2 diabetes mellitus with diabetic autonomic (poly)neuropathy (principal); K31.84 Gastroparesis; E11.65 Type 2 diabetes mellitus with hyperglycemia; I10 Essential (primary) hypertension; K22.10 Ulcer of esophagus without bleeding; E87.5 Hyperkalemia; F32.9 Major depressive disorder, single episode, unspecified; F41.1 Generalized anxiety disorder; G40.909 Epilepsy, unspecified, not intractable, without status epilepticus; K29.70 Gastritis, unspecified, without bleeding; Z86.73 Personal history of transient ischemic attack (TIA), and cerebral infarction without residual deficits; Z79.4 Long term (current) use of insulin; Z79.82 Long term (current) use of aspirin; Z90.49 Acquired absence of other specified parts of digestive tract; Z90.710 Acquired absence of both cervix and uterus

== ENCOUNTER 2017-07-31 21:38 | Observation (INO) | payer BC, MEDICARE ==
[2017-07-31] MEDS ORDERED: Morphine 2 mg/ml ISec IVP STA (22:11)
[2017-07-31] MEDS ORDERED: Sodium Chloride 0.9% 1,000 ML IV STA (22:11)
--- NOTE | 2017-07-31 22:21 | ED PDOC ---
Arrival/HPI - General Chief Complaint: GI Problem Time Seen by Provider: 07/31/17 21:43 Historian: Patient, Spouse - History of Present Illness Narrative History of Present Illness (Text): you were treated in the ED today for hx of cholecystectomy, hysterectomy, TIAs, PAD, diabetic neuropathy and now gastroparesis with worsening epigastric pain/ discomfort with nausea/vomiting without bile or blood and passing gas with bowel movement 2 days, but otherwise without any new foods/travel/sick contacts/ headache/dizziness/difficulty breathing/chest pain/numbness/tingling/loss of limb function/pain with urination. 07/31/17 22:17 07/31/17 22:23 Time/Duration: 1 week Symptom Onset: Gradual Symptom Course: Unchanged Quality: Aching Severity Level: 3 Activities at Onset: Rest Context: Sitting Past Medical History - Provider Review Nursing Documentation Reviewed: Yes - Travel History Have you recently traveled outside [place] w/in the past 3 mons?: No - Infectious Disease Hx of Infectious Diseases: None - Reproductive Menopause: Yes - Cardiac Hx Pacemaker: No - Pulmonary Hx Chronic Obstructive Pulmonary Disease (COPD): Yes - Neurological HX Cerebrovascular Accident: Yes (TIA's, 01/2015 and 07/2016) - HEENT Hx HEENT Disorder: (reading glasses) Hx Cataracts: Yes (bilateral sx) Other/Comment: diabetic retinopathy,pad - Renal Hx Renal Disorder: No - Endocrine/Metabolic Hx Diabetes Mellitus Type 1: Yes - Hematological/Oncological Hx Blood Transfusions: Yes Hx Blood Transfusion Reaction: No - Integumentary Hx Dermatological Disorder: No Other/Comment: hx 10 staple to back of head, left elbow abrasion, multiple skin discolorations both arms,skin discolorations ble and scrape to rle - Musculoskeletal/Rheumatological Hx Musculoskeletal Disorders: Yes - Gastrointestinal Hx Gastrointestinal Disorders: Yes Hx Gastroesophageal Reflux: Yes (had endo; lesions in the esophagus) Other/Comment: Diabetic Gastroparesis - Genitourinary/Gynecological Hx Genitourinary Disorders: No - Psychiatric Hx Physical Abuse: No Hx Substance Use: No - Surgical History Hx Cholecystectomy: Yes Hx Hysterectomy: Yes Other/Comment: Amputation of half the Rt. foot. - Anesthesia Hx Anesthesia Reactions: No Hx Malignant Hyperthermia: No - Suicidal Assessment Feels Threatened In Home Enviroment: No Family/Social History - Physician Review Nursing Documentation Reviewed: Yes Family/Social History: No Known Family HX Smoking Status: Never Smoked Hx Alcohol Use: No Hx Substance Use: No Allergies/Home Meds Allergies/Adverse Reactions: Allergies No Known Allergies Allergy (Verified 02/08/17 09:59) Home Medications: Home Meds Medication Instructions Recorded Confirmed Aspirin [Aspirin Chewable] 81 mg PO DAILY 07/31/17 07/31/17 Dicyclomine [Dicyclomine HCl] 10 mg PO TID 07/31/17 07/31/17 Fluoxetine HCl [Prozac] 40 mg PO DAILY 07/31/17 07/31/17 Gabapentin [Neurontin] 300 mg PO TID 07/31/17 07/31/17 LORazepam [Ativan] 1 mg PO Q6 07/31/17 07/31/17 Metoclopramide [Reglan] 10 mg PO QID 07/31/17 07/31/17 Omeprazole 40 mg PO DAILY 07/31/17 07/31/17 Sucralfate [Carafate] 1 gm PO QID 07/31/17 07/31/17 amLODIPine [Norvasc] 2.5 mg PO DAILY 07/31/17 07/31/17 traMADol [Ultram] 100 mg PO Q8 PRN 07/31/17 07/31/17 Review of Systems - Physician Review All systems were reviewed & negative as marked: Yes - Review of Systems Constitutional: Normal Eyes: Normal ENT: Normal Respiratory: Normal Cardiovascular: Normal Gastrointestinal: Abdominal Pain, Nausea, Vomiting Genitourinary Female: Normal Musculoskeletal: Normal Skin: Normal Neurological: Normal Endocrine: Normal Hemo/Lymphatic: Normal Psychiatric: Normal Physical Exam Vital Signs Reviewed: Yes Vital Signs Temp Pulse Resp BP Pulse Ox 08/01/17 00:33 84 19 158/86 H 100 07/31/17 21:50 98.0 F 99 H 18 137/66 100 Temperature: Afebrile Blood Pressure: Hypertensive Pulse: Regular Respiratory Rate: Normal Appearance: Positive for: Uncomfortable Pain Distress: None Mental Status: Positive for: Alert and Oriented X 3 - Systems Exam Head: Present: Atraumatic, Normocephalic Pupils: Present: PERRL Extroacular Muscles: Present: EOMI Conjunctiva: Present: Normal Ears: Present: Normal Mouth: Present: Moist Mucous Membranes Pharnyx: Present: Normal Nose (External): Present: Atraumatic Nose (Internal): Present: Normal Inspection Neck: Present: Normal Range of Motion Respiratory/Chest: Present: Clear to Auscultation, Good Air Exchange Cardiovascular: Present: Regular Rate and Rhythm Abdomen: Present: Tenderness, Other (epigastric discomfort but otherwise soft wo any other tenderness) Back: Present: Normal Inspection Upper Extremity: Present: Normal Inspection Lower Extremity: Present: Normal Inspection Neurological: Present: GCS=15, CN II-XII Intact, Speech Normal, Motor Func Grossly Intact Skin: Present: Warm, Normal Color Psychiatric: Present: Alert, Oriented x 3, Normal Insight, Normal Concentration Medical Decision Making ED Course and Treatment: you were treated in the ED today for hx of cholecystectomy, hysterectomy, TIAs, PAD, diabetic neuropathy and now gastroparesis with worsening epigastric pain/ discomfort with nausea/vomiting without bile or blood and passing gas with bowel movement 2 days, but otherwise without any new foods/travel/sick contacts/ headache/dizziness/difficulty breathing/chest pain/numbness/tingling/loss of limb function/pain with urination. You were otherwise breathing easily, pink moist lips, talking with your easily, good strength/sensation, alert/ oriented, walking easily, clear lungs, mild epigastric abdomen tenderness, no fever temp 98.0, stable heart rate 99, stable breathing rate 18, excellent oxygen level 100% room air, elevated blood pressure 137/66 which we recommend repeat in 2-3 days primary care office to determine further treatment, you have blood tests no infection count 8.8, stable blood level hemoglobin 14/platelets 248, stable chemistry, mildly low chloride 91, bun elevated 33, elevated glucose 444, lipase normal 72, heart blood test indeterminate 0.05, normal anion gap 15, ECG normal sinus rhythm, zofran, intravenous fluids, morphine x2 doses, observation done in the ED without improvemen, d/w Dr. Dent who stated admit to med-surg, consult GI Dr. Jaime, NPO, D5 1/2 NS w 20meq K, insulin sliding scale. 07/31/17 22:22 EXAM:CT Abdomen and Pelvis With Intravenous Contrast Dictated and Authenticated by: Marvin Murray MD 08/01/2017 2:03 AM IMPRESSION: 1. Mild colitis versus underdistention. Clinical correlation is needed. 2. Incidental/non-acute findings are described above. Kidneys and ureters: Small calculus within RIGHT kidney. Few probable renal cysts. Few too small to characterize lesions within kidneys. No hydronephrosis. Stomach and bowel: Postsurgical changes of large bowel. Few segmental areas of mild mural thickening vs underdistention of large bowel. No associated inflammatory stranding. Few minimally distended loops of small bowel, likely ileus. 08/01/17 02:38 Reassessment Condition: Unchanged - Lab Interpretations Lab Results: 07/31/17 22:20 07/31/17 22:20 Lab Results 08/01/17 00:05: POC Glucose (mg/dL) 350 H 07/31/17 22:20: Sodium 135, Potassium 4.6, Chloride 91 L, Carbon Dioxide 33, Anion Gap 15, BUN 33 H, Creatinine 1.0, Est GFR ( Amer) > 60, Est GFR ( Non-Af Amer) 57, Random Glucose 444 H* D, Calcium 10.4, Total Bilirubin 0.6, AST 32, ALT 35, Alkaline Phosphatase 96, Troponin I 0.05 D, Total Protein 6.9, Albumin 4.0, Globulin 2.9, Albumin/Globulin Ratio 1.4, Lipase 74 07/31/17 22:20: PT 10.9, INR 0.96, APTT 27.6 07/31/17 22:20: WBC 8.8 D, RBC 5.22, Hgb 14.7 D, Hct 42.0, MCV 80.5, MCH 28.2 , MCHC 35.0, RDW 12.7, Plt Count 248, MPV 10.1, Gran % 75.3 H, Lymph % (Auto) 18.1 L, [place] % (Auto) 5.7, Eos % (Auto) 0.7 L, Baso % (Auto) 0.2, Gran # 6.65 H , Lymph # (Auto) 1.6, [place] # (Auto) 0.5, Eos # (Auto) 0.1, Baso # (Auto) 0.02 I have reviewed the lab results: Yes - RAD Interpretation Radiology Orders: 08/01/17 00:11 ABD & PELVIS IV CONTRAST ONLY [CT] Stat Outsole Scheduler: Radiologist (see mdm for ct a/p) - EKG Interpretation Interpreted by ED Physician: Yes (NSR) Type: 12 lead EKG Comparison: Similar to previous EKG (02/08/17) - Medication Orders Current Medication Orders: Potassium Chloride/Dextrose/Sod Cl 10 ml/ Dextrose/Sodium Chloride 1,010 mls @ 100 mls/hr IV .Q10H6M [facility] Insulin Human Regular (Humulin R Low) 0 units SC ACHS PATTI PRN Reason: Protocol Discontinued Medications Sodium Chloride (Sodium Chloride 0.9%) 1,000 mls @ 1,000 mls/hr IV .Q1H STA Stop: 07/31/17 23:10 Last Admin: 07/31/17 22:20 Dose: 1,000 mls/hr eMAR Start Stop Document 07/31/17 22:20 RD (Rec: 07/31/17 22:29 RD [id number]) Intravenous Solution Start Date 07/31/17 Start Time 22:20 End Date 07/31/17 End time 23:20 Total Infusion Time 60 Morphine Sulfate (Morphine) 2 mg IVP STAT STA Stop: 07/31/17 22:12 Last Admin: 07/31/17 22:30 Dose: 2 mg FABIO Pain Assessment Document 07/31/17 22:30 RD (Rec: 07/31/17 22:30 RD [id number]) Pain Reassessment Is this a pain reassessment? No Sleep Is patient sleeping during reassessment? No Presence of Pain Presence of Pain Yes IVP Administration Document 07/31/17 22:30 RD (Rec: 07/31/17 22:30 RD [id number]) Charges for Administration # of IVP Administrations 1 Re-Assess: FABIO Pain Assessment Document 07/31/17 23:30 RD (Rec: 08/01/17 00:58 RD [id number]) Pain Reassessment Is this a pain reassessment? Yes Sleep Is patient sleeping during reassessment? No Presence of Pain Presence of Pain Yes Morphine Sulfate (Morphine) 4 mg IVP STAT ONE Stop: 08/01/17 01:21 Last Admin: 08/01/17 01:41 Dose: 4 mg MAR Pain Assessment Document 08/01/17 01:41 RD (Rec: 08/01/17 01:41 RD [id number]) Pain Reassessment Is this a pain reassessment? No Sleep Is patient sleeping during reassessment? No Presence of Pain Presence of Pain Yes IVP Administration Document 08/01/17 01:41 RD (Rec: 08/01/17 01:41 RD [id number]) Charges for Administration # of IVP Administrations 1 Ondansetron HCl (Zofran Inj) 4 mg IVP STAT STA Stop: 07/31/17 22:12 Last Admin: 07/31/17 22:25 Dose: 4 mg IVP Administration Document 07/31/17 22:25 RD (Rec: 07/31/17 22:29 RD [id number]) Charges for Administration # of IVP Administrations 2 Pantoprazole Sodium (Protonix Inj) 40 mg IVP STAT STA Stop: 07/31/17 22:12 Last Admin: 07/31/17 22:27 Dose: 40 mg IVP Administration Document 07/31/17 22:27 RD (Rec: 07/31/17 22:30 RD [id number]) Charges for Administration # of IVP Administrations 1 Disposition/Present on Arrival - Present on Arrival Any Indicators Present on Arrival: No History of DVT/PE: No History of Uncontrolled Diabetes: No Urinary Catheter: No History of Decub. Ulcer: No History Surgical Site Infection Following: None - Disposition Have Diagnosis and Disposition been Completed?: Yes Diagnosis: Gastroparesis, IBS (irritable bowel syndrome) Disposition: HOSPITALIZED Disposition Time: 02:39 Patient Plan: Admission Condition: STABLE Referrals: Josafat Dent DO [Primary Care Provider] - Follow up with primary Forms: [email or web address] ([place])
[2017-07-31 22:29] LABS: BASO # 0.02 K/mm3 (0.0-2.0); BASO % 0.2 % (0.0-3.0); EOS # 0.1 (0.0-0.7); EOS % 0.7 % (1.5-5.0); GRAN # 6.65 (1.4-6.5); GRAN % 75.3 % (50.0-68.0); HEMOGLOBIN 14.7 g/dL (12.0-16.0); LYMPH # 1.6 (1.2-3.4); LYMPH % 18.1 % (22.0-35.0); MEAN CELL VOLUME 80.5 fl (80.0-105.0); MEAN CORPUSCULAR HEMOGLOBIN 28.2 pg (25.0-35.0); MEAN PLATELET VOLUME 10.1 fl (7.0-11.0); MONO # 0.5 (0.1-0.6); MONO % 5.7 % (1.0-6.0); RBC 5.22 10^6/uL (3.5-6.1); RED CELL DISTRIBUTION WIDTH 12.7 % (11.5-14.5); WHITE BLOOD COUNT 8.8 10^3/ul (4.5-11.0)
[2017-07-31 22:49] LABS: ALB/GLOB RATIO 1.4 (1.1-1.8); ALT/SGPT 35 U/L (7-56); AST/SGOT 32 U/L (14-36); BLOOD UREA NITROGEN 33 mg/dL (7-21); CALCIUM 10.4 mg/dL (8.4-10.5); GFR AFRICAN-AMERICAN > 60; GFR NON-AFRICAN AMERICAN 57; LIPASE 74 U/L (23-300)
[2017-07-31 22:50] LABS: TROPONIN I 0.05 ng/mL
[2017-07-31 23:13] LABS: INR 0.96 (0.93-1.08); PARTIAL THROMBOPLASTIN TIME 27.6 Seconds (25.1-36.5); PROTHROMBIN TIME 10.9 SECONDS (9.4-12.5)
[2017-08-01] MEDS ORDERED: Iohexol 350 MG/100 ML VIAL ONE (00:48)
[2017-08-01] MEDS ORDERED: Morphine 4 mg/ml ISec IVP ONE (01:20)
--- NOTE | 2017-08-01 02:03 | CT ---
EXAM: CT Abdomen and Pelvis With Intravenous Contrast CLINICAL HISTORY: 56 years old, female; Pain; Abdominal pain; Generalized; Prior surgery; Surgery type: Gb removed, , hysterectomy; Additional info: 56yof, abdomen pain TECHNIQUE: Axial computed tomography images of the abdomen and pelvis with intravenous contrast. All CT scans at this facility use one or more dose reduction techniques, viz.: automated exposure control; ma/kV adjustment per patient size (including targeted exams where dose is matched to indication; i.e. head); or iterative reconstruction technique. Coronal and sagittal reformatted images were created and reviewed. CONTRAST: 100 mL of omni 350 administered intravenously. COMPARISON: CT - 02/08/2017, 03/14/2016 FINDINGS: Lower thorax: Minimal atelectasis/scarring. Few subcentimeter subpleural pulmonary nodules, stable. ABDOMEN: Liver: Mild prominence of intrahepatic ducts, stable. Gallbladder and bile ducts: Cholecystectomy. Mild prominence of common bile duct, stable. Pancreas: No ductal dilation. No mass. Spleen: No splenomegaly. Adrenals: Stable appearance of LEFT adrenal gland. Kidneys and ureters: Small calculus within RIGHT kidney. Few probable renal cysts. Few too small to characterize lesions within kidneys. No hydronephrosis. Stomach and bowel: Postsurgical changes of large bowel. Few segmental areas of mild mural thickening vs underdistention of large bowel. No associated inflammatory stranding. Few minimally distended loops of small bowel, likely ileus. Appendix: Appendectomy. PELVIS: Bladder: Unremarkable. Reproductive: Hysterectomy. ABDOMEN and PELVIS: Intraperitoneal space: No significant fluid collection. No free air. Bones/joints: Schmorl's nodes at T12 level. No acute fracture. Soft tissues: Mild focal eventration midline anterior abdominal wall. Vasculature: Mild atherosclerotic disease. No aneurysm. Lymph nodes: No pathologically enlarged lymph nodes. IMPRESSION: 1. Mild colitis versus underdistention. Clinical correlation is needed. 2. Incidental/non-acute findings are described above.
[2017-08-01] MEDS ORDERED: Morphine 4 mg/ml ISec IVP PRN (02:36)
[2017-08-01] MEDS ORDERED: Potassium Chl 10 mEq in D5-1/2 1,000 ML IV SCH (02:45)
[2017-08-01 03:05] LABS: PH,URINE 6.5 (4.7-8.0); URINE BILIRUBIN NEGATIVE (NEGATIVE); URINE BLOOD SMALL (NEGATIVE); URINE GLUCOSE (UA) >=1000 mg/dL (NEGATIVE); URINE LEUKOCYTE ESTERASE NEGATIVE Leu/uL (NEGATIVE); URINE NITRATE NEGATIVE (NEGATIVE); URINE PROTEIN 100 mg/dL (<30 mg/dL); URINE UROBILINOGEN 0.2 E.U./dL (<1 E.U./dL)
[2017-08-01 03:31] LABS: URINE APPEARANCE SL CLOUDY (CLEAR); URINE COLOR YELLOW (YELLOW)
[2017-08-01 03:59] LABS: URINE EPITHELIAL CELLS 0 - 2 /hpf (0-5)
[2017-08-01 04:00] LABS: URINE BACTERIA FEW (NEG)
[2017-08-01] MEDS ORDERED: Morphine 5 MG/ML SYRINGE IVP PRN ×2 (04:32→08:10)
[2017-08-01] MEDS ORDERED: Influenza Vaccine 60 mcg/0.5 mL SYR (4YR UP) IM ONE (05:32)
[2017-08-01] MEDS ORDERED: Pneumococcal 23-Valent Vaccine IM ONE (05:32)
[2017-08-01 05:33] VITALS: BMI 20.9
[2017-08-01] MEDS: Insulin Reg-LOW-Coverage SC SCH ×4 (08:17→22:08)
[2017-08-01 08:39] LABS: BASO # 0.02 K/mm3 (0.0-2.0); BASO % 0.3 % (0.0-3.0); EOS # 0.2 (0.0-0.7); EOS % 2.5 % (1.5-5.0); GRAN # 4.34 (1.4-6.5); GRAN % 64.8 % (50.0-68.0); HEMOGLOBIN 14.5 g/dL (12.0-16.0); LYMPH # 1.6 (1.2-3.4); LYMPH % 24.5 % (22.0-35.0); MEAN CELL VOLUME 80.4 fl (80.0-105.0); MEAN CORPUSCULAR HEMOGLOBIN 27.9 pg (25.0-35.0); MEAN CORPUSCULAR HGB CONC 34.7 g/dl (31.0-37.0); MEAN PLATELET VOLUME 10.3 fl (7.0-11.0); MONO # 0.5 (0.1-0.6); MONO % 7.9 % (1.0-6.0); RBC 5.2 10^6/uL (3.5-6.1); RED CELL DISTRIBUTION WIDTH 12.8 % (11.5-14.5); WHITE BLOOD COUNT 6.7 10^3/ul (4.5-11.0)
[2017-08-01 09:28] LABS: ALB/GLOB RATIO 1.2 (1.1-1.8); ALBUMIN 3.5 g/dL (3.0-4.8); ALT/SGPT 26 U/L (7-56); AST/SGOT 33 U/L (14-36); BLOOD UREA NITROGEN 25 mg/dL (7-21); CALCIUM 9.7 mg/dL (8.4-10.5); GFR AFRICAN-AMERICAN > 60; GFR NON-AFRICAN AMERICAN > 60
[2017-08-01] MEDS ORDERED: Non Formulary Medication (Fluoxetine Hcl [Prozac] 40 MG) PO SCH (10:00)
[2017-08-01] MEDS: Sodium Chloride 0.45% 1,000 ML IV SCH (11:05)
--- NOTE | 2017-08-01 11:50 | CARD ---
APPROVED REPORT EKG Measurement Heart [id number] <Conclusion> Normal sinus rhythm with sinus arrhythmia Normal ECG
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
[2017-08-01 18:20] VITALS: RESP 20
--- NOTE | 2017-08-01 19:24 | HP ---
HISTORY OF PRESENT ILLNESS: She had multiple calls to me in the past 24 hours and eventually got to the emergency room at [facility]. She is having a lot of abdominal pain from diabetic gastroparesis. She has had that before. She is a 56-year-old female who is very anxious, also has a severe abdominal pain, comes in with worsening epigastric pain, discomfort, nausea, vomiting. No blood. No passing gas. No bowel movement for 2 days, and she comes to the hospital not feeling well. PAST MEDICAL HISTORY: She has a past medical history of gastroparesis in the past. She has had TIAs, COPD. She has reading glasses. She had bilateral cataracts. She is a diabetic with diabetic neuropathy and peripheral artery disease. She did have a fall with the wilbert in the back of her head with left elbow abrasion, multiple skin discolorations in the past. She has gastrointestinal disorders. She has lesions in the esophagus, diabetic gastroparesis history. She has cholecystectomy. She had amputation of the half of the right foot. She had a hysterectomy. FAMILY HISTORY: Diabetes and hypertension in the family. SOCIAL HISTORY: No smoker. No drinking. No drugs. ALLERGIES: NO KNOWN DRUG ALLERGIES. MEDICATIONS: She takes aspirin, Bentyl, Prozac for depression, Neurontin for peripheral neuropathy, Ativan for anxiety, Reglan, omeprazole, Carafate for her gastric issues, Norvasc for blood pressure, and Ultram for pain. REVIEW OF SYSTEMS: No acute vision or hearing changes. No sore throat. No chest pain or palpitations. No shortness of breath or coughing. She has severe abdominal pain, cramping, nauseousness, vomiting. No bowel movements for 2 days. No gas. No skin issues. No leg issues. She is very nervous, that is her baseline. PHYSICAL EXAMINATION: VITAL SIGNS: She has a 98 temperature, 99 pulse, 18 respiratory rate, 137/66 blood pressure, 100% O2 sat. HEENT: Head is atraumatic, normocephalic. Extraocular muscles are intact. She is alert and oriented, uncomfortable, in pain. She is getting morphine. Pupils are equal and reactive to light. Throat is moist. NECK: Supple. HEART: Regular rate. LUNGS: Decreased breath sounds, but clear to auscultation. ABDOMEN: Soft. There is tenderness all over, but no guarding or rebound. No palpable masses. EXTREMITIES: No edema. NEUROLOGIC: GCS is 15. Cranial nerves II through XII grossly intact. Alert and oriented x3. She is LABORATORY DATA: She had a CT scan, which showed mild colitis, small kidney stones, renal cyst. No hydro. She has had multiple blood tests. Urine is negative, few bacteria. 135 sodium, potassium 4.6, BUN 33, creatinine 1, GFR is greater than 60. She had a 444 blood sugar. They did put her on dextrose. I took out the dextrose. Last blood sugar was 354. They also gave her Januvia. I changed IV fluids to half-normal to cut the sugar. Calcium is 10.4, total bili is 0.6, AST is 32, ALT is 35, alk phos Troponin I is indeterminate at 0.05. Total protein 6.9. INR is 0.96. White count is 8.8, hemoglobin 14.7, hematocrit 42, platelets are 248. She has a consult with GI. She will be here for observation, IV fluids, pain meds, meds to the abdomen and pelvis. Hopefully she will do well and we will watch her closely. Check her labs tomorrow, watch her blood sugars. Hopefully we could start feeding her tomorrow morning. Ting Schwartz is here for gastroparesis, diabetes, ileus, mild colitis. Josafat Dent DO MTDD
[2017-08-02] MEDS: Sodium Chloride 0.45% 1,000 ML IV SCH ×2 (01:05→10:00)
[2017-08-02 06:58] LABS: HEMOGLOBIN 13.2 g/dL (12.0-16.0); MEAN CELL VOLUME 82.3 fl (80.0-105.0); MEAN CORPUSCULAR HEMOGLOBIN 28.1 pg (25.0-35.0); MEAN CORPUSCULAR HGB CONC 34.1 g/dl (31.0-37.0); MEAN PLATELET VOLUME 10.2 fl (7.0-11.0); RBC 4.7 10^6/uL (3.5-6.1); RED CELL DISTRIBUTION WIDTH 12.8 % (11.5-14.5); WHITE BLOOD COUNT 6.1 10^3/ul (4.5-11.0)
[2017-08-02 07:24] LABS: ALB/GLOB RATIO 1.1 (1.1-1.8); ALBUMIN 3.1 g/dL (3.0-4.8); ALT/SGPT 35 U/L (7-56); AST/SGOT 35 U/L (14-36); BLOOD UREA NITROGEN 28 mg/dL (7-21); CALCIUM 9.3 mg/dL (8.4-10.5); GFR AFRICAN-AMERICAN > 60; GFR NON-AFRICAN AMERICAN 57
[2017-08-02 08:02] VITALS: BP 127/84; PULSE 81; TEMP 97.8; O2SAT 97
[2017-08-02] MEDS: Insulin Reg-LOW-Coverage SC SCH ×2 (08:30→13:52)
--- NOTE | 2017-08-02 10:49 | CP.PCM.PN ---
<Trixie Guzman - Last Filed: 08/02/17 14:18> Subjective - Date & Time of Evaluation Date of Evaluation: 08/02/17 Time of Evaluation: 08:00 - Subjective Subjective: GI Fellow PGY 4 Progress Note Pt seen and evaluated at bedside, pt says she feels a little better today after pain medication. On liquid diet for breakfast will try to eat regular diet later for lunch A little nausea but no vomiting. Denies BM in 2 days. ROS: A 12pt ROS was negative except as above. Objective - Vital Signs/Intake and Output Vital Signs (last 24 hours): Temp Pulse Resp BP Pulse Ox 97.8 F 81 20 127/84 97 08/02/17 07:30 08/02/17 07:30 08/02/17 07:30 08/02/17 09:58 08/02/17 07:30 Intake and Output: 08/02/17 08/02/17 06:59 18:59 Intake Total 1920 Balance 1920 - Medications Medications: Current Medications Amlodipine Besylate (Norvasc) 2.5 mg PO DAILY [facility] Last Admin: 08/02/17 09:58 Dose: 2.5 mg Aspirin (Aspirin Chewable) 81 mg PO DAILY [facility] Last Admin: 08/02/17 09:58 Dose: 81 mg Dicyclomine HCl (Bentyl) 10 mg PO TID [facility] Last Admin: 08/02/17 09:58 Dose: 10 mg Fluoxetine HCl (Prozac) 40 mg PO DAILY [facility] Last Admin: 08/02/17 09:58 Dose: 40 mg Gabapentin (Neurontin) 300 mg PO TID [facility] PRN Reason: Protocol Last Admin: 08/02/17 09:57 Dose: 300 mg Sodium Chloride (Sodium Chloride 0.45%) 1,000 mls @ 80 mls/hr IV .[id number] [facility] Last Admin: 08/02/17 10:00 Dose: 80 mls/hr Insulin Human Regular (Humulin R Low) 0 units SC ACHS [facility] PRN Reason: Protocol Last Admin: 08/02/17 08:30 Dose: Not Given Lorazepam (Ativan) 1 mg PO Q6 PRN; Protocol PRN Reason: Anxiety Metoclopramide HCl (Reglan) 10 mg IVP ACHS [facility] Last Admin: 08/02/17 08:30 Dose: 10 mg Morphine Sulfate (Morphine) 4 mg IVP Q4 PRN PRN Reason: Pain, severe (8-10) Last Admin: 08/01/17 08:24 Dose: 4 mg Ondansetron HCl (Zofran Inj) 4 mg IVP Q6H PRN PRN Reason: Nausea/Vomiting Pantoprazole Sodium (Protonix Inj) 40 mg IVP Q12 [facility] Last Admin: 08/02/17 09:58 Dose: 40 mg Sitagliptin Phosphate (Januvia) 25 mg PO DAILY [facility] Last Admin: 08/02/17 09:58 Dose: 25 mg Sucralfate (Carafate Tab) 1 gm PO QID [facility] Last Admin: 08/02/17 09:58 Dose: 1 gm Tramadol HCl (Ultram) 100 mg PO Q8 PRN PRN Reason: Pain, moderate (4-7) Last Admin: 08/02/17 10:10 Dose: 100 mg - Labs Labs: 08/02/17 06:15 08/02/17 06:15 PT 10.9 SECONDS (9.4-12.5) 07/31/17 22:20 INR 0.96 (0.93-1.08) 07/31/17 22:20 APTT 27.6 Seconds (25.1-36.5) 07/31/17 22:20 - Constitutional Appears: Non-toxic, No Acute Distress - Head Exam Head Exam: ATRAUMATIC, NORMAL INSPECTION, NORMOCEPHALIC - Eye Exam Eye Exam: EOMI, Normal appearance, PERRL - ENT Exam ENT Exam: Mucous Membranes Moist - Respiratory Exam Respiratory Exam: Clear to Ausculation Bilateral, NORMAL BREATHING PATTERN - Cardiovascular Exam Cardiovascular Exam: REGULAR RHYTHM - GI/Abdominal Exam GI & Abdominal Exam: Soft, Tenderness, Normal Bowel Sounds. absent: Distended, Guarding, Rigid - Extremities Exam Extremities Exam: Full ROM, Normal Inspection - Back Exam Back Exam: NORMAL INSPECTION - Neurological Exam Neurological Exam: Alert, Awake, Oriented x3 - Psychiatric Exam Psychiatric exam: Normal Affect, Normal Mood - Skin Skin Exam: Dry, Intact, Normal Color, Warm Assessment and Plan - Assessment and Plan (Free Text) Assessment: This is a 56 year old female with history of Hypertension, Diabetes, gastroparesis, MDD, LAUREN, TIA/CVA, presenting as epigastric abd pain, nausea, vomiting. Prior EDG and colonoscopy 1 year ago endorsed to show esophagitis, gastroparesis, and denies polyps. EGD 01/2017 revealed gastroparesis and Grade b esophagitis 1. Epigastric pain 2. Gastroparesis 2/2 uncontrolled BS 3. DM, insulin dependent 4. Constipation Plan: -Continue supportive care and avoid narcotics -Advance diet to low fat, small frequent meals -Continue Zofran for anti-emetic -Continue Reglan for pro kinetic -Pt will need tight glycemic control for gastroparesis -PPI and carafate -Bowel regimen with miralax -Pt clinically better today <Willie Jaime - Last Filed: 08/02/17 19:00> Objective - Vital Signs/Intake and Output Vital Signs (last 24 hours): Temp Pulse Resp BP Pulse Ox 97.8 F 81 20 127/84 97 08/02/17 07:30 08/02/17 07:30 08/02/17 07:30 08/02/17 09:58 08/02/17 07:30 - Labs Labs: 08/02/17 06:15 08/02/17 06:15 PT 10.9 SECONDS (9.4-12.5) 07/31/17 22:20 INR 0.96 (0.93-1.08) 07/31/17 22:20 APTT 27.6 Seconds (25.1-36.5) 07/31/17 22:20 Attending/Attestation - Attestation I have personally seen and examined this patient.: Yes I have fully participated in the care of the patient.: Yes I have reviewed all pertinent clinical information, including history, physical exam and plan: Yes Notes (Text): 08/02/17 19:00 56 year old female with h/o poorly controlled dm and gastroparesis admitted with exacerbation of chronic symptoms. Recommend supportive measures including improving glycemic control, bowel regimen, acid suppression and prokinetic therapy.
[2017-08-02] MEDS ORDERED: POLYETHYLENE GLYCOL 3350 17 GM/Dose PACKET PO SCH (11:00)
--- NOTE | 2017-08-03 00:17 | DS ---
HISTORY: She is here for diabetes, gastroparesis, ileus, mild colitis. She is doing much better this morning, feeling well. She is taking some liquids and keeping it down. She hopefully will do well for lunch and eat regularly and then if okay will be discharged this afternoon. She is on IV fluid, aspirin, Ativan, Bentyl, Carafate, insulin, Januvia, morphine, Neurontin, Norvasc, Protonix, Prozac, Reglan, Ultram, and Zofran. PHYSICAL EXAMINATION: VITAL SIGNS: 97.8 temperature, 81 pulse, 127/84 blood pressure, 20 respiratory rate, 97% saturation on room air. HEENT: Head is atraumatic, normocephalic. Throat is moist. NECK: Supple. HEART: Regular rate. LUNGS: Decreased breath sounds, but clear. ABDOMEN: Soft. Positive bowel sounds. No guarding or rebound. No CVA tenderness. EXTREMITIES: No edema, but there is old surgery. LABORATORY DATA: She has 137 sodium, potassium 4.7, BUN 28, creatinine is 1, GFR , last blood sugar is 145, calcium is 9.3. Total bilirubin is 0.3. AST is 35, ALT 35, alkaline phosphatase 54, total protein is 5.7. White count 6.1, hemoglobin 13.2, hematocrit 38.7, platelets are 204. ASSESSMENT AND PLAN: She is being seen by GI. I increased her diet. Hopefully, she will do well and will get discharged this afternoon. She was here for gastroparesis, ileus, mild colitis, and diabetes with abdominal pain. Josafat Dent DO MTDSumi
== END 2017-08-02 13:52 | disposition home or self-care (01) ==
LOC: ED 21:38 → ERH 08-01 02:36 → 5RNO 08-01 03:44
PROVIDERS: ADMIT Family Medicine; ATTEND Family Medicine
DX: E10.43 Type 1 diabetes mellitus with diabetic autonomic (poly)neuropathy (principal); K31.84 Gastroparesis; E10.319 Type 1 diabetes mellitus with unspecified diabetic retinopathy without macular edema; E10.51 Type 1 diabetes mellitus with diabetic peripheral angiopathy without gangrene; E78.00 Pure hypercholesterolemia, unspecified; G89.29 Other chronic pain; I10 Essential (primary) hypertension; J44.9 Chronic obstructive pulmonary disease, unspecified; Z86.73 Personal history of transient ischemic attack (TIA), and cerebral infarction without residual deficits; K21.9 Gastro-esophageal reflux disease without esophagitis; K52.9 Noninfective gastroenteritis and colitis, unspecified; K56.7 Ileus, unspecified; Z79.4 Long term (current) use of insulin; Z80.0 Family history of malignant neoplasm of digestive organs; Z82.49 Family history of ischemic heart disease and other diseases of the circulatory system; Z83.3 Family history of diabetes mellitus; Z90.49 Acquired absence of other specified parts of digestive tract; Z90.710 Acquired absence of both cervix and uterus; Z98.42 Cataract extraction status, left eye; Z98.41 Cataract extraction status, right eye; R40.2412 Glasgow coma scale score 13-15, at arrival to emergency department; E10.65 Type 1 diabetes mellitus with hyperglycemia
CPT/HCPCS: 36415; 74177; 80053; 81001; 82948; 83690; 84484; 85025; 85027; 85610; 85730; 87086; 93005; 96361; 96374; 96375; 96376; 99285; C9113; G0378; J2270; J2405; J2765; J7030; J7040; Q9967

== ENCOUNTER 2017-08-24 12:28 | Inpatient (IN) | payer BC, MEDICARE ==
[2017-08-24 12:28] VITALS: BMI 20.9
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
[2017-08-24] MEDS ORDERED: Sodium Chloride 0.9% 1,000 ML IV STA ×2 (12:58→14:30)
[2017-08-24] MEDS ORDERED: Morphine 4 mg/ml ISec IVP STA (12:58)
[2017-08-24] MEDS ORDERED: Atrop/Hyosc/Scopal/PB Elixir (120 ml) PO STA (13:00)
[2017-08-24] MEDS ORDERED: Alum-Mag Hydrox-Simethicone Susp (30 mL) PO STA (13:01)
[2017-08-24 13:30] LABS: BASO # 0.01 K/mm3 (0.0-2.0); BASO % 0.1 % (0.0-3.0); GRAN # 14.79 (1.4-6.5); GRAN % 90.7 % (50.0-68.0); LYMPH # 0.9 (1.2-3.4); LYMPH % 5.6 % (22.0-35.0); MEAN CORPUSCULAR HEMOGLOBIN 27.9 pg (25.0-35.0); MEAN CORPUSCULAR HGB CONC 34.9 g/dl (31.0-37.0); MEAN PLATELET VOLUME 9.9 fl (7.0-11.0); MONO # 0.6 (0.1-0.6); MONO % 3.6 % (1.0-6.0); PLATELET COUNT 274 10^3/uL (120.0-450.0); RBC 5.01 10^6/uL (3.5-6.1); RED CELL DISTRIBUTION WIDTH 13.1 % (11.5-14.5); WHITE BLOOD COUNT 16.3 10^3/ul (4.5-11.0)
[2017-08-24 13:37] LABS: URINE BILIRUBIN NEGATIVE (NEGATIVE); URINE BLOOD MODERATE (NEGATIVE); URINE GLUCOSE (UA) >=1000 mg/dL (NEGATIVE); URINE LEUKOCYTE ESTERASE NEGATIVE Leu/uL (NEGATIVE); URINE PROTEIN >=300 mg/dL (<30 mg/dL); URINE UROBILINOGEN 0.2 E.U./dL (<1 E.U./dL)
[2017-08-24 13:42] LABS: INR 0.94 (0.93-1.08); PARTIAL THROMBOPLASTIN TIME 27.6 Seconds (25.1-36.5); PROTHROMBIN TIME 10.8 SECONDS (9.4-12.5)
[2017-08-24 13:44] LABS: URINE APPEARANCE CLEAR (CLEAR); URINE COLOR YELLOW (YELLOW)
[2017-08-24 13:46] LABS: ALB/GLOB RATIO 1.3 (1.1-1.8); ALBUMIN 4.1 g/dL (3.0-4.8); ALT/SGPT 33 U/L (7-56); AST/SGOT 23 U/L (14-36); BLOOD UREA NITROGEN 32 mg/dL (7-21); CALCIUM 10.3 mg/dL (8.4-10.5); GFR AFRICAN-AMERICAN > 60; GFR NON-AFRICAN AMERICAN > 60; LIPASE 37 U/L (23-300)
[2017-08-24 14:10] LABS: URINE EPITHELIAL CELLS 0 - 2 /hpf (0-5)
[2017-08-24 14:11] LABS: URINE BACTERIA MANY (NEG); URINE CALCIUM OXALATE CRYSTALS OCC /hpf
[2017-08-24] MEDS ORDERED: Insulin Regular 1 UNITS/0.01 ML ML IVP ONE (14:30)
[2017-08-24 14:35] LABS: NEUTROPHIL 93 % (50.0-70.0)
[2017-08-24 14:36] LABS: ATYPICAL LYMPHOCYTE 2 % (0.0-0.0); LYMPHOCYTE 2 % (22.0-35.0); MONOCYTE 3 % (1.0-6.0)
--- NOTE | 2017-08-24 15:02 | RAD ---
HISTORY: epigastric pain COMPARISON: No prior. TECHNIQUE: Chest PA and lateral FINDINGS: LUNGS: No active pulmonary disease. PLEURA: No significant pleural effusion identified. No pneumothorax apparent. CARDIOVASCULAR: Normal. OSSEOUS STRUCTURES: No significant abnormalities. VISUALIZED UPPER ABDOMEN: Normal. OTHER FINDINGS: None. IMPRESSION: No active disease.
[2017-08-24] MEDS ORDERED: Morphine 2 mg/ml ISec IVP PRN (17:48)
[2017-08-24] MEDS ORDERED: Sodium Chloride 0.45% 1,000 ML IV SCH (18:00)
[2017-08-24] MEDS ORDERED: cefTRIAXone 1 gm 1 GM/100 ML BAG IVPB SCH (18:00)
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
[2017-08-24] MEDS ORDERED: Insulin Detemir 100 units/ml Vial (Levemir) SC SCH (22:00)
[2017-08-24] MEDS ORDERED: Insulin Reg-HIGH-Coverage SC SCH (22:00)
[2017-08-24] MEDS: Azithromycin 250 MG in Sodium Chloride 0.9% 250 ML IVPB SCH (23:20)
[2017-08-25] MEDS: Pantoprazole 40mg/100mL NS 40 MG/100 ML BAG IVPB SCH (05:37)
[2017-08-25] MEDS: Morphine 4 mg/ml ISec IVP PRN ×3 (05:43→19:57)
[2017-08-25] MEDS: Piperacillin/Tazobact 3.375 gm 100 ML IVPB SCH ×5 (05:45→23:34)
[2017-08-25 07:15] LABS: MEAN CELL VOLUME 81.4 fl (80.0-105.0); MEAN CORPUSCULAR HEMOGLOBIN 26.9 pg (25.0-35.0); MEAN PLATELET VOLUME 9.8 fl (7.0-11.0); RBC 4.09 10^6/uL (3.5-6.1); RED CELL DISTRIBUTION WIDTH 13.7 % (11.5-14.5); WHITE BLOOD COUNT 9.2 10^3/ul (4.5-11.0)
[2017-08-25 07:26] LABS: ALB/GLOB RATIO 1.2 (1.1-1.8); ALBUMIN 2.9 g/dL (3.0-4.8); CALCIUM 8.7 mg/dL (8.4-10.5)
[2017-08-25] MEDS: Insulin Lispro 1 UNITS/0.01 ML SC SCH ×3 (07:54→18:37)
[2017-08-25] MEDS: Insulin Lispro (humaLOG) LOW Coverage SC SCH ×3 (07:54→18:37)
--- NOTE | 2017-08-25 08:23 | CON ---
DATE: 08/24/2017 ENDOCRINOLOGY CONSULTATION LOCATION: Room 577. HISTORY OF PRESENT ILLNESS: This is a 56-year-old female with known history of type 2 insulin-requiring diabetes, presenting here with intractable diffuse abdominal pain with underlying diabetic gastroparesis and supervening nausea, dyspepsia and vomiting and is being referred now for diabetic evaluation and management. PAST MEDICAL HISTORY: As mentioned above. History of type 2 insulin-requiring diabetes, on a combination of Levemir given as 40 units subcu at bedtime daily and Humalog given at the variable dose following a sliding scale use because of the variability of her oral intake as noted, history of significant diabetic gastroparesis with multiple admissions for exacerbations of intractable vomiting and diffuse abdominal pain as noted, history of diabetic retinopathy, polyneuropathy and nephropathy with microalbuminuria. There is also significant history of coronary artery disease with peripheral arterial disease and vasculopathy. She also has cerebrovascular disease with multiple admissions for transient ischemic attack in the last few years prior to admission, history of chronic obstructive lung disease. There is also significant history of peripheral arterial disease and vasculopathy and underwent a right foot transmetatarsal amputation ( noted). Moreover she has fall and abrasion and traumatic injuries related to the fall in the last 3 months prior to admission. PAST SURGICAL HISTORY: She also has prior hysterectomy and cholecystectomy in the past. FAMILY HISTORY: Positive for hypertension and heart disease. SOCIAL HISTORY: Patient has supportive family. No known substance use. REVIEW OF SYSTEMS: As mentioned above. Admits to generalized body weakness with easy fatigability and tiredness and suboptimal energy level. Also admits to recent bouts of dizziness and lightheadedness, worse on the day of admission. No chest pains or palpitations, but admits to progressive shortness of breath, especially on exertion. Her oral intake has been extremely variable and suboptimal with supervening nausea, dyspepsia and intractable vomiting episodes with diffuse upper abdominal pain as noted. Also admits to marked polyuria, nocturia, polydipsia and recent weight loss as noted. Also admits to lower extremity painful paresthesia, especially nocturnally. PHYSICAL EXAMINATION: GENERAL: Average-built female, in no apparent distress. VITAL SIGNS: Blood pressure of 150/90; pulse of 100 beats per minute, regular; temperature 98, respirations 20. Height is 5 feet 6 inches, weight is 130 pounds. HEENT: Head normocephalic. Eyes with pink conjunctivae. Funduscopy not possible at this time. Ears, nose, and throat are otherwise normal. NECK: Supple. Thyroid gland is normal in size. No carotid bruits or cervical adenopathy. CARDIOPULMONARY: Some adynamic precordium. S1 and S2 are rapid and regular. LUNGS: Clear to auscultation. ABDOMEN: Flat, soft with positive bowel sounds. EXTREMITIES: No peripheral edema. Pulses are diminished peripherally. The distal lower extremity shows hyperpigmentation. She also has healed excoriations thereof. Moreover, she has injuries in both occipital area and upper and lower extremities from recent falls as noted. LABORATORY DATA: Chemistry showed a BUN of 32, sodium 138, potassium 4.8, chloride 93, CO2 of 28, glucose 510 mg/dL, creatinine 0.9. Her latest glucose is 324, lipase is 37. WBC 16.3, hemoglobin of 14, hematocrit of 40, MCV 80 and platelets 274. ASSESSMENT: This is a 56-year-old female with uncontrolled and decompensated type 2 insulin-requiring diabetes, presenting here with acute exacerbation of gastroparesis and supervening nausea, dyspepsia and diffuse abdominal pain with intractable vomiting episodes as noted. She also has diabetic microvascular complications of retinopathy, polyneuropathy and early nephropathy with microalbuminuria. Moreover, she also has diabetic cerebrovascular disease with multiple transient ischemic events and coronary artery disease and also underlying peripheral arterial disease and vasculopathy with previous right transmetatarsal amputation as mentioned. She also has diabetic autonomic neuropathy with severe diabetic gastroparesis and also lower extremity evidence of hyperpigmentation and excoriations typical of lower extremity autonomic polyneuropathy. PLAN OF MANAGEMENT: As the patient's diet has been advanced to a diabetic moderate carb consistency diet, we will also modify her insulin regimen to a more basal and bolus insulin drug combination with Humalog to be given as 12 units subcu t.i.d. before meals as ordered. We will also modify the coverage scale to a very low dose algorithm. Will receive Humalog insulin to obviate hypoglycemia and detailed orders have been given. Moreover, we will also continue her basal insulin with Levemir ordered as 20 units subcu at bedtime daily and if her oral intake improves, we will titrate her insulin regimen to optimize metabolic control. We will also obtain serial chemistries and supplement accordingly as needed and continue the IV hydration as given. We will obtain baseline thyroid function studies and lipid panel, and also serum cortisol and ACTH level to exclude any underlying endocrinopathy. We will follow and advice accordingly. Tita Coe MD
[2017-08-25 09:14] LABS: T4 8.6 ug/dL (5.5-11.0)
[2017-08-25] MEDS: Azithromycin 250 MG in Sodium Chloride 0.9% 250 ML IVPB SCH (09:39)
[2017-08-25] MEDS: Sodium Chloride 0.45% 1,000 ML IV SCH ×2 (09:43→23:23)
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
--- NOTE | 2017-08-25 14:10 | PN ---
DATE: SUBJECTIVE: I saw her resting comfortably in bed this morning. She told me that the morphine is helping and the Ativan is helping her. She slept fairly well and she is comfortable. She is on aspirin, Ativan, azithromycin, Bentyl, Carafate, insulin, Levemir, morphine, Neurontin, Norvasc, Protonix, Prozac, Reglan, IV fluids and Zosyn. PHYSICAL EXAMINATION GENERAL: She is smiling at me. VITAL SIGNS: She has 97.7 temperature, 76 pulse, 116/69 blood pressure, 18 respiratory rate, 95% O2 saturation on room air. HEENT: Head is atraumatic, normocephalic. Throat is moist. NECK: Supple. HEART: Regular rate. LUNGS: Decreased breath sounds, but clear. ABDOMEN: Soft. EXTREMITIES: No edema. LABORATORY DATA: She has 9.2 white count, came down nicely; 11 hemoglobin, hematocrit with 223,000 platelets. She has 139 sodium, potassium of 3.8, BUN 34, creatinine 1.3. Blood sugar a little bit worse, I am going to give her some IV fluids. GFR is 42, sugar is 61, calcium is 8.7, total bilirubin is 0.2. AST is 18, ALT is 26, alkaline phosphatase is 63. ASSESSMENT AND PLAN: She is being seen by Endocrinology for the diabetes. There is a consult for Infectious Disease. She is needed to be out of bed to chair, on physical therapy. She has multiple issues. Blood sugars were higher than 500. She had gastroparesis, waiting for GI to see her. [employer] is on the case with the elevated blood sugar of greater than 500. Urinary tract infection, she is on IV antibiotics as per Infectious Disease. We will continue aggressive treatment and care on Ting Monaco who is here for numerous reasons from gastroparesis, abdominal pain, elevated blood sugars, urinary tract infection. Josafat Dent DO [email or web address]
[2017-08-25] MEDS ORDERED: Insulin Detemir 100 units/ml Vial (Levemir) SC SCH (22:00)
--- NOTE | 2017-08-26 00:53 | CON ---
DATE: HISTORY OF PRESENT ILLNESS: The patient is a 56-year-old female with multiple medical issues including uncontrolled diabetes. 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 The patient has history of gastroparesis. The patient was admitted on the medical side for evaluation of abdominal pain, poor appetite, nausea, vomiting. Psych consult was called because the patient has history of depression and anxiety. The patient was seen and examined today. The patient presented to be alert, pleasant, but obviously depressed. 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 The patient reported that she feels depressed as usual which is related to the medical problems what she has right now. The patient denied any thoughts of harming herself or others. The patient said that her psychotropic medications are prescribed by primary care physician and she has only therapist in the community. Denied hearing voices, denied seeing things. LABORATORY DATA: Labs reviewed yesterday. WBCs were 16.3, today 9.2. Coagulation reviewed. Chemistry reviewed. AST and ALT were within normal limits. Protein is low. Globulin low. BUN and creatinine of 34 and 1.3 respectively. Urinalysis showed blood, moderate high. Endocrinology saw the patient as well. Adjustments of insulin were taken place. MENTAL STATUS EXAMINATION: The patient appeared to be alert and oriented, pleasant, cooperative, intermittent eye contact. Speech was under productive, low volume. Mood described as depressed. Affect was tearful and constricted. Mood congruent. Thought process seems to be coherent and goal directed. Thought content, the patient denied visual, auditory, or tactile hallucinations. Denied paranoid ideation. The patient denied thoughts of harming herself or others. Denied intent or plan. Insight and judgment seemed to be fair. Impulses were well controlled. IMPRESSION: Rule out mood disorder and anxiety disorder due to general medical condition. PLAN: Medications reviewed. The patient needs to continue Neurontin and Prozac from the psychiatric standpoint, Ativan 1 mg twice a day as needed. The patient is on pain medication and antibiotics. Physical Therapy works with the patient's family involvement. I will follow up and advise accordingly. Thank you very much for letting me participate in care of your patient. Lidia Napier MD [facility] # [id number] ANIVAL
--- NOTE | 2017-08-26 02:44 | CON ---
DATE: 08/25/2017 LOCATION: The patient is seen early this morning in 577, bed 2. CHIEF COMPLAINT: Abdominal discomfort times several days. HISTORY OF PRESENT ILLNESS: This is a 56-year-old female with diabetes mellitus, diabetic gastroparesis, hypertension, esophageal ulcers, and chronic obstructive lung disease, who is admitted through the Emergency Room with abdominal pain. Infectious consultation requested. REVIEW OF SYSTEMS: Reveals the patient has low grade fevers, no chills. There is a diffuse abdominal pain she states dull in nature with radiation throughout the abdomen. There is nausea, but no vomiting and there is no dysuria or frequency. No headaches. PAST MEDICAL HISTORY: Significant for diabetes mellitus, diabetic gastroparesis, hypertension, esophageal ulcers, chronic obstructive lung disease, history of anxiety and cerebrovascular accident and TIA. PAST SURGICAL HISTORY: Significant for hysterectomy, cholecystectomy, , right foot partial amputation. ALLERGIES: THE PATIENT HAS NO KNOWN ALLERGIES. MEDICATIONS AT HOME: Include insulin, tramadol, Reglan, Ativan, and amlodipine. PHYSICAL EXAMINATION: GENERAL: The patient is in bed. VITAL SIGNS: Temperature of 98, blood pressure is 116/69, heart rate of 76, it was up to 100, respiratory rate of 20. HEENT: Unremarkable. NECK: Supple. LUNGS: Have decreased breath sounds. HEART: Normal S1 and S2. ABDOMEN: Soft. There is mild tenderness. No rebound or guarding. No masses. LABORATORY EXAMINATION: Reveals the patient's white count is 16,300, hemoglobin of 14, platelets of 294. Coagulation is noted. Chemistries reveals a BUN of 34, creatinine of 1.3. Urinalysis is noted, 1 to 3 wbc's. Microbiology is pending. Blood cultures and urine cultures are pending. ASSESSMENT AND PLAN: This is a 56-year-old female with diabetes and diabetic gastroparesis, hypertension, esophageal ulcer, transient ischemic attack, and chronic obstructive pulmonary disease, presenting with systemic inflammatory response syndrome, mostly likely secondary to gastroparesis. We must rule out intra-abdominal pathology. Consider a CAT scan of the abdomen and pelvis. We will check on the culture results and treat the patient with Zosyn and azithromycin. Chest x-ray is reported to be negative. We will follow closely with you. Marc Sales MD [facility] # [id number]
--- NOTE | 2017-08-26 03:05 | CON ---
DATE: HISTORY OF PRESENT ILLNESS: This is a 56-year-old female with past medical history of hypertension, diabetes, gastroparesis, and TIA, came to the emergency room with the complaint of epigastric pain and constipation with nausea and vomiting. Family at bedside. Patient had epigastric pain and patient could eat the food and denies any fever or chills. PAST MEDICAL HISTORY: As above, hypertension, diabetes, gastroparesis, TIA. PHYSICAL EXAMINATION: VITAL SIGNS: Blood pressure 97/62. HEENT: Normocephalic, atraumatic. NECK: Supple. NEUROLOGIC: Alert, awake, oriented x3. No aphasia. Cranial nerves II through XII were tested. Pupils equal, reactive to light. EOM intact. Visual aburto full. No facial asymmetry. Tongue midline. Motor examination, moves all the extremities equally. Deep tendon reflexes 1+. Both plantars are downgoing. Sensory appears intact. Cerebellar, gait deferred. IMPRESSION: Patient has peripheral neuropathy secondary to diabetes and also status post amputation of the right metatarsal joint secondary to neuropathy and workup in progress, continue present management. We will follow up. Juan Manuel Knight MD
[2017-08-26] MEDS: Insulin Lispro (humaLOG) LOW Coverage SC SCH ×5 (03:46→22:35)
[2017-08-26] MEDS: Pantoprazole 40mg/100mL NS 40 MG/100 ML BAG IVPB SCH (05:47)
[2017-08-26] MEDS: Piperacillin/Tazobact 3.375 gm 100 ML IVPB SCH ×4 (06:31→23:35)
[2017-08-26 07:40] LABS: ALB/GLOB RATIO 1.2 (1.1-1.8); ALBUMIN 3.1 g/dL (3.0-4.8); ALT/SGPT 30 U/L (7-56); AST/SGOT 22 U/L (14-36); BLOOD UREA NITROGEN 26 mg/dL (7-21); CALCIUM 9.1 mg/dL (8.4-10.5); GFR AFRICAN-AMERICAN > 60; GFR NON-AFRICAN AMERICAN 51
[2017-08-26 07:49] LABS: HEMOGLOBIN 11.6 g/dL (12.0-16.0); MEAN CELL VOLUME 81.7 fl (80.0-105.0); MEAN CORPUSCULAR HEMOGLOBIN 27.6 pg (25.0-35.0); MEAN CORPUSCULAR HGB CONC 33.8 g/dl (31.0-37.0); MEAN PLATELET VOLUME 9.9 fl (7.0-11.0); RBC 4.2 10^6/uL (3.5-6.1); RED CELL DISTRIBUTION WIDTH 13.6 % (11.5-14.5); WHITE BLOOD COUNT 7.8 10^3/ul (4.5-11.0)
[2017-08-26] MEDS: Insulin Lispro 1 UNITS/0.01 ML SC SCH ×2 (08:02→17:08)
--- NOTE | 2017-08-26 08:18 | CP.PCM.PN ---
<DarlinebhargaviolgaYaya - Last Filed: 08/26/17 09:00> Subjective - Date & Time of Evaluation Date of Evaluation: 08/26/17 Time of Evaluation: 07:45 - Subjective Subjective: PGY5 GI Fellow Progress Note Patient seen and examined bedside this morning. The patient continues to complain of epigastric abdominal pain with nausea. Admits that at home she had poorly controlled diabetes and was not eating small meals as had been previously recommended. No BM for several days now. 12 system ROS performed and negative except where stated. Objective - Vital Signs/Intake and Output Vital Signs (last 24 hours): Temp Pulse Resp BP Pulse Ox 98.8 F 69 18 152/85 H 98 08/25/17 22:00 08/25/17 22:00 08/25/17 22:00 08/25/17 22:00 08/25/17 22:00 Intake and Output: 08/26/17 08/26/17 06:59 18:59 Intake Total 1500 Output Total 3 Balance 1497 - Medications Medications: Current Medications Amlodipine Besylate (Norvasc) 2.5 mg PO DAILY [facility] Last Admin: 08/25/17 09:41 Dose: 2.5 mg Aspirin (Aspirin Chewable) 81 mg PO DAILY [facility] Last Admin: 08/25/17 09:41 Dose: 81 mg Dicyclomine HCl (Bentyl) 10 mg PO TID [facility] Last Admin: 08/25/17 18:35 Dose: 10 mg Fluoxetine HCl (Prozac) 40 mg PO DAILY [facility] Last Admin: 08/25/17 09:40 Dose: 40 mg Gabapentin (Neurontin) 300 mg PO TID [facility] PRN Reason: Protocol Last Admin: 08/25/17 18:35 Dose: 300 mg Pantoprazole Sodium (Protonix 40mg Ivpb) 40 mg in 100 mls @ 200 mls/hr IVPB 0600 [facility] Last Admin: 08/26/17 05:47 Dose: 200 mls/hr Azithromycin 250 mg/ Sodium (Chloride) 250 mls @ 167 mls/hr IVPB DAILY [facility] PRN Reason: Protocol Stop: 09/02/17 23:16 Last Admin: 08/25/17 09:39 Dose: 167 mls/hr Piperacillin Sod/Tazobactam Sod (Zosyn 3.375 In Ns 100ml) 100 mls @ 200 mls/hr IVPB Q6 [facility] PRN Reason: Protocol Stop: 09/02/17 23:09 Last Admin: 08/26/17 06:31 Dose: 200 mls/hr Sodium Chloride (Sodium Chloride 0.45%) 1,000 mls @ 80 mls/hr IV .[id number] [facility] Last Admin: 08/25/17 23:23 Dose: 80 mls/hr Insulin Detemir (Levemir) 14 unit SC HS [facility] Last Admin: 08/25/17 22:22 Dose: 14 unit Insulin Human Lispro (Humalog Low) [address] [facility] PRN Reason: Protocol Last Admin: 08/26/17 08:02 Dose: Not Given Insulin Human Lispro (Humalog) 6 units SC [facility] Last Admin: 08/26/17 08:02 Dose: Not Given Lorazepam (Ativan) 1 mg PO BID PRN; Protocol PRN Reason: Anxiety Metoclopramide HCl (Reglan) 10 mg IVP [facility] Last Admin: 08/25/17 22:21 Dose: 10 mg Morphine Sulfate (Morphine) 2 mg IVP Q4H PRN PRN Reason: Pain, moderate (4-7) Last Admin: 08/25/17 19:57 Dose: 2 mg Sucralfate (Carafate Tab) 1 gm PO QID [facility] Last Admin: 08/25/17 22:21 Dose: 1 gm - Labs Labs: 08/26/17 07:00 08/26/17 07:00 PT 10.8 SECONDS (9.4-12.5) 08/24/17 13:20 INR 0.94 (0.93-1.08) 08/24/17 13:20 APTT 27.6 Seconds (25.1-36.5) 08/24/17 13:20 - Constitutional Appears: Non-toxic, No Acute Distress - Eye Exam Eye Exam: EOMI, PERRL - ENT Exam ENT Exam: Mucous Membranes Moist - Respiratory Exam Respiratory Exam: Clear to Ausculation Bilateral. absent: Rales, Rhonchi, Wheezes - Cardiovascular Exam Cardiovascular Exam: RRR, +S1, +S2 - GI/Abdominal Exam GI & Abdominal Exam: Guarding, Soft, Tenderness (epigastric), Normal Bowel Sounds. absent: Distended, Firm, Rigid, Mass, Organomegaly - Extremities Exam Extremities Exam: Normal Inspection. absent: Pedal Edema - Neurological Exam Neurological Exam: Alert, Awake, Oriented x3 - Psychiatric Exam Psychiatric exam: Normal Affect, Normal Mood - Skin Skin Exam: Dry, Warm Assessment and Plan - Assessment and Plan (Free Text) Assessment: Patient is a 56yo female with PMHx significant for uncontrolled DM2 with diabetic retinopathy, gastroparesis and chronic abdominal pain who presented with nausea, vomiting and abdominal pain. -Gastroparesis -Constipation -Uncontrolled DM2 -UTI Plan: -Antiemetic therapy as ordered -Education given on 6 small meals per day with low fiber/fat content -Tight glycemic control - improved -Continue PPI as ordered -Aggressive bowel regimen -Avoid opiate narcotics when possible Discussed with Dr Jaime <Willie Jaime - Last Filed: 08/26/17 09:43> Objective - Vital Signs/Intake and Output Vital Signs (last 24 hours): Temp Pulse Resp BP Pulse Ox 98.8 F 69 18 152/85 H 98 08/25/17 22:00 08/25/17 22:00 08/25/17 22:00 08/25/17 22:00 08/25/17 22:00 Intake and Output: 08/26/17 08/26/17 06:59 18:59 Intake Total 1500 Output Total 3 Balance 1497 - Medications Medications: Current Medications Amlodipine Besylate (Norvasc) 2.5 mg PO DAILY [facility] Last Admin: 08/25/17 09:41 Dose: 2.5 mg Aspirin (Aspirin Chewable) 81 mg PO DAILY [facility] Last Admin: 08/25/17 09:41 Dose: 81 mg Dicyclomine HCl (Bentyl) 10 mg PO TID [facility] Last Admin: 08/25/17 18:35 Dose: 10 mg Fluoxetine HCl (Prozac) 40 mg PO DAILY [facility] Last Admin: 08/25/17 09:40 Dose: 40 mg Gabapentin (Neurontin) 300 mg PO TID [facility] PRN Reason: Protocol Last Admin: 08/25/17 18:35 Dose: 300 mg Pantoprazole Sodium (Protonix 40mg Ivpb) 40 mg in 100 mls @ 200 mls/hr IVPB 0600 [facility] Last Admin: 08/26/17 05:47 Dose: 200 mls/hr Azithromycin 250 mg/ Sodium (Chloride) 250 mls @ 167 mls/hr IVPB DAILY [facility] PRN Reason: Protocol Stop: 09/02/17 23:16 Last Admin: 08/25/17 09:39 Dose: 167 mls/hr Piperacillin Sod/Tazobactam Sod (Zosyn 3.375 In Ns 100ml) 100 mls @ 200 mls/hr IVPB Q6 [facility] PRN Reason: Protocol Stop: 09/02/17 23:09 Last Admin: 08/26/17 06:31 Dose: 200 mls/hr Sodium Chloride (Sodium Chloride 0.45%) 1,000 mls @ 80 mls/hr IV .[id number] [facility] Last Admin: 08/25/17 23:23 Dose: 80 mls/hr Insulin Detemir (Levemir) 14 unit SC HS [facility] Last Admin: 08/25/17 22:22 Dose: 14 unit Insulin Human Lispro (Humalog Low) [address] [facility] PRN Reason: Protocol Last Admin: 08/26/17 08:02 Dose: Not Given Insulin Human Lispro (Humalog) 6 units SC AC [facility] Last Admin: 08/26/17 08:02 Dose: Not Given Lorazepam (Ativan) 1 mg PO BID PRN; Protocol PRN Reason: Anxiety Metoclopramide HCl (Reglan) 10 mg IVP ACHS [facility] Last Admin: 08/26/17 08:25 Dose: 10 mg Morphine Sulfate (Morphine) 2 mg IVP Q4H PRN PRN Reason: Pain, moderate (4-7) Last Admin: 08/26/17 08:25 Dose: 2 mg Sucralfate (Carafate Tab) 1 gm PO QID [facility] Last Admin: 08/25/17 22:21 Dose: 1 gm - Labs Labs: 08/26/17 07:00 08/26/17 07:00 PT 10.8 SECONDS (9.4-12.5) 08/24/17 13:20 INR 0.94 (0.93-1.08) 08/24/17 13:20 APTT 27.6 Seconds (25.1-36.5) 08/24/17 13:20 Attending/Attestation - Attestation I have personally seen and examined this patient.: Yes I have fully participated in the care of the patient.: Yes I have reviewed all pertinent clinical information, including history, physical exam and plan: Yes Notes (Text): 08/26/17 09:42 56 year old female with diabetic gastroparesis admitted with exacerbation. Improving. Would recommend supportive measures with prokinetics, glycemic control, bowel regimen, and dietary modification.
[2017-08-26] MEDS ORDERED: Bisacodyl 5mg EC Tab PO ONE (08:25)
[2017-08-26] MEDS: Morphine 4 mg/ml ISec IVP PRN ×3 (08:25→17:09)
--- NOTE | 2017-08-26 08:31 | PN ---
DATE: 08/25/2017 ENDOCRINOLOGY FOLLOWUP NOTE LOCATION: Room 577. SUBJECTIVE: This is a 56-year-old female with recent uncontrolled type 2 insulin-requiring diabetes, presenting here with intractable upper abdominal pain and has now been advanced to a diabetic carb consistent diet and is tolerating the meals fairly well at this time. Her glycemic levels are low normal as noted overnight with glucose levels range from 67-74 mg/dL. Her latest chemistry showed a BUN of 34, sodium 139, potassium 3.8, chloride 103, CO2 of 31, glucose 61, and creatinine 1.3. Her bedtime glucose was 263 mg/dL. The glucose at dinner time was 446 mg/dL. So, at this time, we will modify once again her basal and bolus insulin regimen because of the variability of her oral intake with suboptimal meal portions as noted. We will lower the Humalog to 6 units subcu t.i.d. before meals to start at dinner time today as ordered. We will also continue the low-dose correction scale using Humalog insulin as given. We will obtain serial chemistries and supplement accordingly as needed. We will also lower the basal insulin down to Levemir given as 14 units subcu at bedtime daily to start tonight. We will obtain serial chemistries and supplement accordingly as needed. We will follow. Tita Coe MD
[2017-08-26] MEDS ORDERED: Barium Sulfate Susp 2.1% w/v, 2.0% w/w 450 mL Bottle PO ONE (10:13)
[2017-08-26] MEDS: Azithromycin 250 MG in Sodium Chloride 0.9% 250 ML IVPB SCH (10:59)
--- NOTE | 2017-08-26 15:27 | CT ---
PROCEDURE: CT Abdomen and Pelvis with contrast HISTORY: abd pain COMPARISON: Contrast chest CT 08/01/2017. TECHNIQUE: Contrast dose: None Radiation dose: Total exam DLP = 356.68 mGy-cm. This CT exam was performed using one or more of the following dose reduction techniques: Automated exposure control, adjustment of the mA and/or kV according to patient size, and/or use of iterative reconstruction technique. FINDINGS: LOWER THORAX: Tiny, noncalcified subpleural nodule is stable at the right lower lobe base seen laterally in image 10 series, 5 3.5 mm greatest dimension. Limited atelectasis seen in the bilateral lung bases once again. LIVER: Unremarkable. No gross lesion or ductal dilatation. GALLBLADDER AND BILE DUCTS: Prior cholecystectomy reiterated. CBD not clearly identified but not grossly dilated. PANCREAS: Unremarkable. No gross lesion or ductal dilatation. SPLEEN: Unremarkable. ADRENALS: Unremarkable. No mass. KIDNEYS AND URETERS: Nonspecific streaky perinephric changes seen related to the bilateral kidneys, slightly greater the left and right sides with left renal cyst less well identified currently in its peripheral extent than previously shown. Small parenchymal calcification of the lower pole right kidney. No definite obstructive uropathy bilaterally. Clinically correlate nevertheless. VASCULATURE: Unremarkable. No aortic aneurysm. BOWEL: Unremarkable. No obstruction. Prior clinically questioned mural thickening at the sigmoid colon is not clearly apparent currently. Prior left lower quadrant herniorrhaphy changes again are again seen related to the anterior abdominal wall. . Questionable prior right hemicolectomy with the appendix not identified currently. No suspicious right lower quadrant findings grossly evident at this time. APPENDIX: Normal appendix. PERITONEUM: No free fluid or free intrarenal gas. Perineum is remarkable only for tiny umbilical hernia containing only a minimal amount of mesenteric fat at this time. LYMPH NODES: Unremarkable. No enlarged lymph nodes. BLADDER: Unremarkable. REPRODUCTIVE: Prior hysterectomy again evident. BONES: No acute fracture. OTHER FINDINGS: None. IMPRESSION: 1. No definite pattern of segmental colitis is appreciated although prior right hemicolectomy changes are questioned versus complete collapse small-bowel simulating small-bowel the right flank/lower quadrant. 2. Bilateral streaky perinephric changes are appreciated somewhat more apparent currently than on the prior CT exam which may indicate nephritis as no obstructive uropathy is appreciated at either side. Faint left renal cystic lesion poorly characterized due lack of intravenous contrast at this time. 3. Prior cholecystectomy again evident. 4. Prior left internal wall herniorrhaphy again evident.
--- NOTE | 2017-08-26 15:29 | PN ---
DATE: SUBJECTIVE: I saw her resting comfortably in bed this morning. She is feeling a bit better, less pain. The morphine is helping her. She is being seen by GI, Endocrinology, Neurology, Infectious Disease, Psychiatry. She is on IV fluids, aspirin, Ativan, Bentyl, Carafate, Dulcolax, Fleet enema. We are trying to clean out the stool. She has gastroparesis. She is on insulin, Levemir, morphine, Neurontin, Norvasc, Protonix, Prozac, Reglan, Zithromax, and Zosyn. OBJECTIVE: VITAL SIGNS: She has 98.2 temperature, 60 pulse, 134/80 blood pressure, 18 respiratory rate, 97% O2 sat on room air. HEENT: Head is atraumatic, normocephalic. HEART: Regular rate. LUNGS Clear to auscultation with decreased breath sounds. ABDOMEN: Soft. Decreased bowel sounds are present. No guarding. No rebound. No discomfort. EXTREMITIES: No edema, just has a LABORATORY DATA: She has a 7.8 white count, 11.6 hemoglobin, 34.3 hematocrit with 227 platelets. She has a 139 sodium, potassium 3.9. BUN is 26, creatinine 1.1. GFR is 51. Sugar is 64. Calcium is 9.1. Total bili is 0.2, AST is 22, ALT is 38, alk phos 65, total protein is 5.7. TSH is 1.95 and cortisol a.m. sample is high. The urine has many bacteria. She had urinary tract infection. She has multiple issues, gastroparesis, elevated blood sugar, UTI, sepsis, depression, diabetes. I discussed this with Infectious Disease. They want to get a CT scan of the abdomen and pelvis. I will order it. We will continue aggressive treatment and care and IV antibiotics. Josafat Dent DO MTDD
[2017-08-26] MEDS: Sodium Chloride 0.45% 1,000 ML IV SCH (16:08)
--- NOTE | 2017-08-26 18:13 | PN ---
DATE: ENDOCRINOLOGY FOLLOWUP NOTE LOCATION: Room 577. SUBJECTIVE: This is a 56-year-old female with recent uncontrolled type 2 insulin-requiring diabetes, presenting here with intractable upper abdominal pain with underlying diabetic gastroparesis and is now being followed closely for metabolic management. Her oral intake remains quite variable and suboptimal as per the staff and the glucose values today have ranged from 74-62 and 198 mg/dL. Her latest chemistry showed a BUN of 26, sodium 139, potassium 3.9, chloride 104, CO2 of 31, glucose 64, and creatinine 1.1. Her serum cortisol level is 27.4. The thyroid studies showed a T4 of 8.6 with a TSH of 1.95. So, at this time, we will modify her basal and bolus insulin regimen and lower the Humalog to 4 units subcu t.i.d. before meals to start at dinner time today as ordered. We will also lower the basal insulin with Levemir to be given as 12 units subcu at bedtime daily to start tonight. We will titrate incrementally as indicated to optimize metabolic control. We will hold off the change of her insulin to regular insulin because of the variability of her oral intake and a very high possibility of overlapping of the regular insulin in the body because of a prolonged half life of the insulin type and this may cause a high predilection for hypoglycemia. We will obtain serial chemistries and supplement accordingly as needed. We will follow. Tita Coe MD
[2017-08-26] MEDS ORDERED: Insulin Detemir 100 units/ml Vial (Levemir) SC SCH (22:00)
--- NOTE | 2017-08-26 23:13 | PN ---
DATE: FOLLOWUP NOTE SUBJECTIVE: The patient is a 56-year-old female, long debilitating history of poorly controlled diabetes. The patient lost her toes on both lower extremities because of that. The patient has gastroparesis which gives the patient severe pain in her abdominal area. The patient also has mood disorder due to general medical condition. The patient has one psychiatric admission in the past at [facility] under this va underwriter. The patient is very familiar to this va underwriter from the previous admission and consultation services on the medical side. Initially, the patient was seen yesterday. Please see consultation for more detailed information. The patient was followed up today. The patient presented to be alert, oriented, pleasant. At the same time, the patient was tearful when she was talking about her medical condition. The patient seems to be depressed, but the patient adamantly denied thoughts of harming herself or others. The patient said that if her abdominal pain will be under control. She will be much better. The patient said since the last admission to the psychiatric inpatient unit, she did not follow up with psychiatrist and does not have therapist and primary care physician was prescribing her psychotropic medications. The patient overall said that she tolerates medications well. Denied any side effects. The patient reported that she has poor sleep, but it is due to her pain. Vital signs reviewed. Labs reviewed. Medications reviewed. MENTAL STATUS EXAM: The patient was pleasant and cooperative, at times tearful, fair eye contact. Speech was normal rate, but low volume, seems to be under productive. Mood described as I am depressed because of the medical issues. Affect was tearful, mood congruent. Thought process seems to be goal directed. Thought content: The patient denied visual, auditory, tactile hallucinations. Denied paranoid ideation. The patient denied thoughts of harming herself or others. Denied intent or plan. Insight and judgment seem to be fair. Impulses are well controlled. IMPRESSION Rule out mood disorder due to general medical condition, rule out anxiety disorder due to general medical condition. PLAN Continue current management. Continue current medication empathic listening and supportive therapy provided. The patient adamantly denied thoughts of harming herself or others. The patient reported that her family is very supportive. Patient is , has two grown daughters. Patient reported that she has good support from her family. Patient was advised to follow up with outpatient psychiatry. Patient verbalized understanding, but this is up to the patient if she is willing to do so or not. Patient does not appear to be in any imminent danger to self or others. This va underwriter will sign off. Should you have any questions, give me a call back. Thank you very much for letting me participate in the care of your patient. Lidia Napier MD MTDD
[2017-08-27] MEDS: Morphine 4 mg/ml ISec IVP PRN ×2 (01:18→07:49)
--- NOTE | 2017-08-27 01:47 | PN ---
DATE: 08/26/2017 SUBJECTIVE: The patient is in bed, in no acute distress, nontoxic. PHYSICAL EXAMINATION: VITAL SIGNS: Temperature is 98, blood pressure is 194/100, respiratory rate of 18. HEENT: Unremarkable. NECK: Supple. LUNGS: Have decreased breath sounds. HEART: Normal S1 and S2. ABDOMEN: Soft, nontender. LABORATORY DATA: Reveals the patient's white count is 7.8, hemoglobin of 11, platelets of 227. Chemistries are noted. Urinalysis is noted. Microbiology reveals gram-negative radha in the urine. Also urinalysis shows only 1 to 3 wbc's. Patient had a CAT scan of the abdomen and pelvis. It shows no definite pattern of segmental colitis, status post a right hemicolectomy, collapse of the small bowel, bilateral streaky perinephric changes associated somewhat. ASSESSMENT AND PLAN: A 56-year-old female seen earlier this morning with diabetes, diabetic gastroparesis, hypertension, esophageal ulcer, transient ischemic attack, chronic obstructive lung disease, presenting with systemic inflammatory response syndrome, sepsis with gastroparesis and gram-negative rods in urine, questionable pyelonephritis on CAT scan, and currently on Zosyn for the gram-negative radha. Awaiting for identification of gram-negative radha. Patient is also on IV azithromycin for the gastroparesis. We will follow closely with you. Marc Sales MD
[2017-08-27] MEDS: Sodium Chloride 0.45% 1,000 ML IV SCH (05:44)
[2017-08-27] MEDS: Pantoprazole 40mg/100mL NS 40 MG/100 ML BAG IVPB SCH (05:45)
[2017-08-27] MEDS: Piperacillin/Tazobact 3.375 gm 100 ML IVPB SCH (05:49)
[2017-08-27 07:25] LABS: MEAN CELL VOLUME 79.9 fl (80.0-105.0); MEAN CORPUSCULAR HGB CONC 33.8 g/dl (31.0-37.0); MEAN PLATELET VOLUME 9.4 fl (7.0-11.0); RBC 4.07 10^6/uL (3.5-6.1); RED CELL DISTRIBUTION WIDTH 13.2 % (11.5-14.5); WHITE BLOOD COUNT 6.5 10^3/ul (4.5-11.0)
[2017-08-27 07:43] LABS: ALB/GLOB RATIO 1.1 (1.1-1.8); ALBUMIN 2.8 g/dL (3.0-4.8); ALT/SGPT 32 U/L (7-56); AST/SGOT 25 U/L (14-36); BLOOD UREA NITROGEN 15 mg/dL (7-21); CALCIUM 8.5 mg/dL (8.4-10.5); GFR AFRICAN-AMERICAN > 60; GFR NON-AFRICAN AMERICAN > 60
[2017-08-27] MEDS: Insulin Lispro 1 UNITS/0.01 ML SC SCH ×2 (07:44→11:30)
[2017-08-27] MEDS: Insulin Lispro (humaLOG) LOW Coverage SC SCH ×2 (07:45→11:31)
[2017-08-27 08:16] VITALS: BP 159/84; PULSE 74; RESP 16; TEMP 97.4; O2SAT 97
[2017-08-27] MEDS ORDERED: cefTRIAXone 2 GM IN NS 2 GM/100 ML BAG IVPB SCH (10:00)
[2017-08-27] MEDS: Azithromycin 250 MG in Sodium Chloride 0.9% 250 ML IVPB SCH (10:36)
--- NOTE | 2017-08-27 14:09 | PN ---
DATE: ENDOCRINOLOGY FOLLOWUP NOTE LOCATION: In room 577. SUBJECTIVE: This is a 56-year-old female with recent intractable upper abdominal pain from underlying diabetic gastroparesis with concomitant dyspepsia and vomiting episodes and has since then improved clinically and metabolically as noted thereof. Her oral intake still remains variable as noted and the latest glucose values overnight showed lower glycemic fluctuations early in the morning with a glucose level of 58 mg/dL. The latest glucose now is 110 mg/dL and the latest chemistries showed a BUN of 15, sodium 138, potassium of 3.6, chloride 104, CO2 of 30, glucose 59 and creatinine 0.7. So at this time, we will modify once again her basal and bolus insulin regimen and lower the Levemir to 8 units subcu at bedtime daily to start tonight. We will titrate incrementally as indicated to optimize metabolic control. We will also continue the low-dose correction scale using Humalog insulin as given. We will continue also the very low-dose Humalog given as 4 units subcu t.i.d. before meals as given. We will obtain serial chemistries and supplement accordingly as needed. We will follow. Tita Coe MD
--- NOTE | 2017-08-27 15:13 | CP.PCM.PN ---
Subjective - Date & Time of Evaluation Date of Evaluation: 08/27/17 Time of Evaluation: 11:25 - Subjective Subjective: Comfortable, feeling better, no fevers, not in distress, no dysuria currently. Objective - Vital Signs/Intake and Output Vital Signs (last 24 hours): Temp Pulse Resp BP Pulse Ox 97.4 F L 74 16 159/84 H 97 08/27/17 08:15 08/27/17 08:15 08/27/17 08:15 08/27/17 08:15 08/27/17 08:15 Intake and Output: 08/27/17 08/27/17 06:59 18:59 Intake Total 1800 Balance 1800 - Medications Medications: Current Medications Amlodipine Besylate (Norvasc) 2.5 mg PO DAILY [facility] Last Admin: 08/26/17 10:56 Dose: 2.5 mg Aspirin (Aspirin Chewable) 81 mg PO DAILY [facility] Last Admin: 08/26/17 10:56 Dose: 81 mg Dicyclomine HCl (Bentyl) 10 mg PO TID [facility] Last Admin: 08/26/17 17:34 Dose: 10 mg Fluoxetine HCl (Prozac) 40 mg PO DAILY [facility] Last Admin: 08/26/17 10:56 Dose: 40 mg Gabapentin (Neurontin) 300 mg PO TID [facility] PRN Reason: Protocol Last Admin: 08/26/17 17:33 Dose: 300 mg Pantoprazole Sodium (Protonix 40mg Ivpb) 40 mg in 100 mls @ 200 mls/hr IVPB 0600 [facility] Last Admin: 08/27/17 05:45 Dose: 200 mls/hr Azithromycin 250 mg/ Sodium (Chloride) 250 mls @ 167 mls/hr IVPB DAILY [facility] PRN Reason: Protocol Stop: 09/02/17 23:16 Last Admin: 08/26/17 10:59 Dose: 167 mls/hr Sodium Chloride (Sodium Chloride 0.45%) 1,000 mls @ 80 mls/hr IV .[id number] [facility] Last Admin: 08/27/17 05:44 Dose: 80 mls/hr Ceftriaxone Sodium (Rocephin 2 Gm Ivpb) 2 gm in 100 mls @ 100 mls/hr IVPB DAILY [facility] PRN Reason: Protocol Insulin Detemir (Levemir) 12 unit SC [facility] Last Admin: 03/29/18 22:36 Dose: 12 unit Insulin Human Lispro (Humalog Low) 0 units SC [facility] PRN Reason: Protocol Last Admin: 08/27/17 07:45 Dose: Not Given Insulin Human Lispro (Humalog) 4 units SC [facility] Last Admin: 08/27/17 07:44 Dose: Not Given Lorazepam (Ativan) 1 mg PO BID PRN; Protocol PRN Reason: Anxiety Metoclopramide HCl (Reglan) 10 mg IVP [facility] Last Admin: 08/27/17 07:50 Dose: 10 mg Morphine Sulfate (Morphine) 2 mg IVP Q4H PRN PRN Reason: Pain, moderate (4-7) Last Admin: 08/27/17 07:49 Dose: 2 mg Sucralfate (Carafate Tab) 1 gm PO QID [facility] Last Admin: 08/26/17 21:28 Dose: 1 gm - Labs Labs: 08/27/17 07:00 08/27/17 07:00 PT 10.8 SECONDS (9.4-12.5) 08/24/17 13:20 INR 0.94 (0.93-1.08) 08/24/17 13:20 APTT 27.6 Seconds (25.1-36.5) 08/24/17 13:20 - Constitutional Appears: Non-toxic, Chronically Ill - Head Exam Head Exam: NORMAL INSPECTION - ENT Exam ENT Exam: Mucous Membranes Moist - Neck Exam Neck Exam: absent: Meningismus - Respiratory Exam Respiratory Exam: Decreased Breath Sounds - Cardiovascular Exam Cardiovascular Exam: +S1, +S2 - GI/Abdominal Exam GI & Abdominal Exam: Soft. absent: Tenderness Assessment and Plan - Assessment and Plan (Free Text) Plan: Assessment UTI with Klebsiella oxytoca gastroparesis HTN DM history of TIA history of esophageal ulcers S/P cholecystectomy S/P S/P hysterectomy S/P right foot partial amputation Plan on Zosyn and Zithromax - patient can be switched to PO Cefpodoxime for the UTI to complete 7-10 days; zithromax being used for gastroparesis - GI following and managing gastroparesis discussed with Dr. Dent
[2017-08-27] MEDS ORDERED: Insulin Detemir 100 units/ml Vial (Levemir) SC SCH (22:00)
--- NOTE | 2017-08-28 06:34 | DS ---
HOSPITAL COURSE: I saw her resting comfortably in bed. She had multiple bowel movements, so she is feeling better she is eating, with some mild epigastric tenderness, but I discussed this with GI and also Infectious Disease and she could be discharged today. She will go home with the same home medications plus Vantin 200 mg twice a day for 10 days. PHYSICAL EXAMINATION: GENERAL: She is alert and smiling. She is eating. VITAL SIGNS: Are good at 97.4 temp, 74 pulse, 159/84 blood pressure, 16 respiratory rate, 97% O2 sat on room air. HEENT: Head is atraumatic, normocephalic. HEART: Regular rate. LUNGS: Clear to auscultation. ABDOMEN: Soft. Positive bowel sounds. Nontender. EXTREMITIES: No edema. MEDICATIONS: She is on aspirin, Ativan, Bentyl, Carafate, Levemir, Neurontin, Norvasc, Protonix, Prozac, Reglan and she will be back on her tramadol when she goes home. LABORATORY DATA: She has a 138 sodium, potassium is 3.6, BUN , creatinine 0.7, GFR is greater than 60, sugar is 110. Calcium is 8.5. AST is 25, ALT is 32, alk phos 46, total protein is 5.4. White count 6.5, hemoglobin 11, hematocrit 32.5 and platelets of 204. ASSESSMENT AND PLAN: She had urinary tract infection. She had gastroparesis, elevated blood sugars greater than 400, hypertension, nauseousness, depression. She is being discharged today. Discuss with Infectious Disease. Discuss with GI. I will follow the patient on a house call. Josafat Dent DO [facility]
== END 2017-08-27 14:53 | disposition home or self-care (01) | DRG 74 ==
LOC: ED 12:28 → ERH 14:59 → 5RSO 17:23
PROVIDERS: ADMIT Family Medicine; ATTEND Family Medicine
DX: E11.43 Type 2 diabetes mellitus with diabetic autonomic (poly)neuropathy (principal); K31.84 Gastroparesis; R65.10 Systemic inflammatory response syndrome (SIRS) of non-infectious origin without acute organ dysfunction; N39.0 Urinary tract infection, site not specified; K22.10 Ulcer of esophagus without bleeding; I10 Essential (primary) hypertension; F32.9 Major depressive disorder, single episode, unspecified; E11.65 Type 2 diabetes mellitus with hyperglycemia; E11.319 Type 2 diabetes mellitus with unspecified diabetic retinopathy without macular edema; E11.42 Type 2 diabetes mellitus with diabetic polyneuropathy; J44.9 Chronic obstructive pulmonary disease, unspecified; B96.89 Other specified bacterial agents as the cause of diseases classified elsewhere; F06.30 Mood disorder due to known physiological condition, unspecified; K59.00 Constipation, unspecified; Z79.82 Long term (current) use of aspirin; Z79.4 Long term (current) use of insulin; Z89.431 Acquired absence of right foot; Z86.73 Personal history of transient ischemic attack (TIA), and cerebral infarction without residual deficits

== ENCOUNTER 2017-10-02 15:37 | Observation (INO) | payer BC, MEDICARE ==
[2017-10-02 15:54] VITALS: BMI 19.3
[2017-10-02] MEDS ORDERED: Morphine 4 mg/ml ISec IVP STA (16:11)
[2017-10-02] MEDS ORDERED: Sodium Chloride 0.9% 1,000 ML IV STA ×2 (16:11→17:05)
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
[2017-10-02 16:22] LABS: BASO # 0.01 K/mm3 (0.0-2.0); BASO % 0.1 % (0.0-3.0); EOS % 0.1 % (1.5-5.0); GRAN # 9.98 (1.4-6.5); GRAN % 87.5 % (50.0-68.0); HEMOGLOBIN 15.9 g/dL (12.0-16.0); LYMPH % 9.1 % (22.0-35.0); MEAN CELL VOLUME 80.3 fl (80.0-105.0); MEAN CORPUSCULAR HEMOGLOBIN 28.8 pg (25.0-35.0); MEAN CORPUSCULAR HGB CONC 35.9 g/dl (31.0-37.0); MEAN PLATELET VOLUME 10.4 fl (7.0-11.0); MONO # 0.4 (0.1-0.6); MONO % 3.2 % (1.0-6.0); RBC 5.52 10^6/uL (3.5-6.1); RED CELL DISTRIBUTION WIDTH 13.7 % (11.5-14.5); WHITE BLOOD COUNT 11.4 10^3/ul (4.5-11.0)
[2017-10-02 16:28] LABS: VENOUS BLOOD GAS BASE EXCESS 6.9 mmol/L (0.0-2.0); VENOUS BLOOD GAS PO2 53 mm/Hg (30-55); VENOUS BLOOD PH 7.37 (7.32-7.43)
[2017-10-02 16:36] LABS: INR 0.9 (0.93-1.08); PARTIAL THROMBOPLASTIN TIME 32.6 Seconds (25.1-36.5); PROTHROMBIN TIME 10.2 SECONDS (9.4-12.5)
[2017-10-02] MEDS ORDERED: HYDROmorphone 1 mg/ml ISec IVP STA (16:38)
[2017-10-02 17:31] LABS: BLOOD UREA NITROGEN 29 mg/dL (7-21); GFR AFRICAN-AMERICAN > 60; GFR NON-AFRICAN AMERICAN > 60
[2017-10-02 17:32] LABS: ALB/GLOB RATIO 1.4 (1.1-1.8); ALBUMIN 4.1 g/dL (3.0-4.8); ALT/SGPT 26 U/L (7-56); AST/SGOT 31 U/L (14-36); CALCIUM 9.7 mg/dL (8.4-10.5)
--- NOTE | 2017-10-02 17:32 | RAD ---
HISTORY: admission COMPARISON: 08/24/2017 FINDINGS: LUNGS: No active pulmonary disease. PLEURA: No significant pleural effusion identified, no pneumothorax apparent. CARDIOVASCULAR: Normal. OSSEOUS STRUCTURES: No significant abnormalities. VISUALIZED UPPER ABDOMEN: Normal. OTHER FINDINGS: None. IMPRESSION: No active disease.
[2017-10-02 17:33] LABS: LIPASE 39 U/L (23-300)
[2017-10-02] MEDS ORDERED: Insulin Regular 1 UNITS/0.01 ML ML SC STA (17:33)
[2017-10-02] MEDS ORDERED: Iohexol 350 MG/100 ML VIAL ONE (18:36)
[2017-10-02] MEDS ORDERED: Erythromycin 500 mg Inj IVPB STA (20:01)
[2017-10-02] MEDS ORDERED: DiphenhydrAMINE 50 mg/ml Inj IVP STA (20:08)
[2017-10-02 20:12] LABS: PH,URINE 6.5 (4.7-8.0); URINE BILIRUBIN NEGATIVE (NEGATIVE); URINE BLOOD LARGE (NEGATIVE); URINE GLUCOSE (UA) >=1000 mg/dL (NEGATIVE); URINE LEUKOCYTE ESTERASE NEGATIVE Leu/uL (NEGATIVE); URINE PROTEIN >=300 mg/dL (<30 mg/dL); URINE UROBILINOGEN 0.2 E.U./dL (<1 E.U./dL)
[2017-10-02 20:26] LABS: URINE APPEARANCE CLEAR (CLEAR); URINE COLOR YELLOW (YELLOW)
[2017-10-02 20:28] LABS: URINE BACTERIA NEG (NEG)
[2017-10-02] MEDS ORDERED: Sodium Chloride 0.9% 1,000 ML IV SCH (20:30)
--- NOTE | 2017-10-02 21:07 | CT ---
EXAM: CT Abdomen and Pelvis With Intravenous Contrast EXAM DATE/TIME: 10/02/2017 5:41 PM CLINICAL HISTORY: 56 years old, female; Pain; Abdominal pain; Epigastric; Prior surgery; Surgery date: 6+ months; Additional info: Epigastric pain TECHNIQUE: Axial computed tomography images of the abdomen and pelvis with intravenous contrast. All CT scans at this facility use one or more dose reduction techniques, viz.: automated exposure control; ma/kV adjustment per patient size (including targeted exams where dose is matched to indication; i.e. head); or iterative reconstruction technique. Coronal and sagittal reformatted images were created and reviewed. CONTRAST: 100 mL of [id number] administered intravenously. COMPARISON: CT - ABD PELVIS PO CONTRAST ONLY 2017-08-26 14:25. CT abdomen pelvis with contrast 08/01/17 FINDINGS: Lung bases: Heart size is normal. There is atelectasis at the lung bases. ABDOMEN: Liver: There is fatty infiltration of the liver. Gallbladder and bile ducts: Gallbladder is absent. Common duct is prominent. Pancreas: Pancreas is mildly atrophic. Spleen: unremarkable Adrenals: Right adrenal is unremarkable. There is a small left adrenal nodule, unchanged. Kidneys and ureters: There are bilateral low-attenuation renal lesions most likely cysts, unchanged. There is a tiny nonobstructing right lower pole renal stone. There is no pelvocaliectasis or ureterectasis. Stomach and bowel: Stomach is incompletely distended which accentuates the gastric wall. There is rotational anomaly of the small bowel. Duodenal jejunal junction is in the right upper quadrant. Small bowel is primarily in the right abdomen. There is no small bowel obstruction. There is been right hemicolectomy. There is ileocolic anastomosis in the midline.Colon is incompletely distended which limits evaluation. There is mild descending sigmoid and rectal wall thickening. PELVIS: Appendix: Surgically absent Bladder: Bladder is distended. Reproductive: Uterus is absent. There are no adnexal masses. ABDOMEN and PELVIS: Intraperitoneal space: There is no free air or free fluid. There surgical clips in midabdomen. There are multiple surgical clips in the left lower abdomen. There are surgical clips along the right iliac vessels. Bones/joints: Bony structures are mildly osteopenic. There degenerative changes. There is mild compression deformity T12. Soft tissues: There is mild rectus diastases. Vasculature: There are vascular calcifications. Lymph nodes: There is no pathologic adenopathy. IMPRESSION: Colitis; right hemicolectomy; mildly prominent common duct status post cholecystectomy; hysterectomy; no acute solid visceral abnormality Additional nonemergent findings as described above.
[2017-10-02] MEDS: Morphine 4 mg/ml ISec IVP PRN (22:50)
[2017-10-03] MEDS: Morphine 4 mg/ml ISec IVP PRN ×3 (02:41→09:16)
[2017-10-03 07:18] LABS: ALB/GLOB RATIO 1.3 (1.1-1.8); ALBUMIN 3.4 g/dL (3.0-4.8); ALT/SGPT 31 U/L (7-56); AST/SGOT 28 U/L (14-36); BLOOD UREA NITROGEN 23 mg/dL (7-21); CALCIUM 8.6 mg/dL (8.4-10.5); GFR AFRICAN-AMERICAN > 60; GFR NON-AFRICAN AMERICAN > 60
[2017-10-03 07:34] LABS: BASO # 0.02 K/mm3 (0.0-2.0); BASO % 0.2 % (0.0-3.0); EOS # 0.1 (0.0-0.7); EOS % 0.5 % (1.5-5.0); GRAN # 7.46 (1.4-6.5); GRAN % 73.4 % (50.0-68.0); LYMPH % 19.9 % (22.0-35.0); MEAN CELL VOLUME 81.3 fl (80.0-105.0); MEAN CORPUSCULAR HGB CONC 34.4 g/dl (31.0-37.0); MONO # 0.6 (0.1-0.6); RBC 4.82 10^6/uL (3.5-6.1); RED CELL DISTRIBUTION WIDTH 13.8 % (11.5-14.5); WHITE BLOOD COUNT 10.2 10^3/ul (4.5-11.0)
[2017-10-03 07:42] LABS: HEMOGLOBIN 13.5 g/dL (12.0-16.0)
[2017-10-03] MEDS ORDERED: Sodium Chloride 0.45% 1,000 ML IV SCH (08:00)
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
[2017-10-03] MEDS: HYDROmorphone 2 mg/ml ISec IVP PRN ×2 (12:40→18:58)
[2017-10-03] MEDS: Insulin Reg-HIGH-Coverage SC SCH ×3 (12:42→21:30)
--- NOTE | 2017-10-03 15:21 | CARD ---
APPROVED REPORT EKG Measurement Heart [id number] HI [id number] <Conclusion> Sinus rhythm with premature atrial complexes with aberrant conduction Possible Left atrial enlargement ST & T wave abnormality, consider lateral ischemia Prolonged QT Abnormal ECG
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
[2017-10-04] MEDS: HYDROmorphone 2 mg/ml ISec IVP PRN ×2 (01:58→07:43)
[2017-10-04] MEDS ORDERED: Pantoprazole 40mg/100mL NS 40 MG/100 ML BAG IVPB SCH (06:00)
[2017-10-04 06:45] LABS: HEMOGLOBIN 12.7 g/dL (12.0-16.0); MEAN CELL VOLUME 81.8 fl (80.0-105.0); MEAN CORPUSCULAR HEMOGLOBIN 27.9 pg (25.0-35.0); MEAN CORPUSCULAR HGB CONC 34.1 g/dl (31.0-37.0); MEAN PLATELET VOLUME 9.8 fl (7.0-11.0); RBC 4.55 10^6/uL (3.5-6.1); RED CELL DISTRIBUTION WIDTH 13.9 % (11.5-14.5); WHITE BLOOD COUNT 9.1 10^3/ul (4.5-11.0)
[2017-10-04 06:57] LABS: ALB/GLOB RATIO 1.1 (1.1-1.8); ALBUMIN 2.9 g/dL (3.0-4.8); ALT/SGPT 25 U/L (7-56); AST/SGOT 30 U/L (14-36); BLOOD UREA NITROGEN 22 mg/dL (7-21); CALCIUM 8.2 mg/dL (8.4-10.5); GFR AFRICAN-AMERICAN > 60; GFR NON-AFRICAN AMERICAN > 60
[2017-10-04 08:09] VITALS: BP 150/83; PULSE 104; RESP 20; TEMP 98.3; O2SAT 97
[2017-10-04] MEDS: Insulin Reg-HIGH-Coverage SC SCH ×2 (09:36→12:32)
--- NOTE | 2017-10-04 10:01 | CP.PCM.PN ---
<Joao Carter - Last Filed: 10/04/17 13:17> Subjective - Date & Time of Evaluation Date of Evaluation: 10/04/17 Time of Evaluation: 11:00 - Subjective Subjective: Patient seen and examined at bedside. No acute events overnight. Admits to baseline abdominal pain. Tolerating diet despite baseline nausea. Denies fever, chills, chest pain. Objective - Vital Signs/Intake and Output Vital Signs (last 24 hours): Temp Pulse Resp BP Pulse Ox 98.3 F 104 H 20 150/83 97 10/04/17 08:08 10/04/17 08:08 10/04/17 08:08 10/04/17 09:35 10/04/17 08:08 Intake and Output: 10/04/17 10/04/17 06:59 18:59 Intake Total 660 Balance 660 - Medications Medications: Current Medications Amlodipine Besylate (Norvasc) 2.5 mg PO DAILY [facility] Last Admin: 10/04/17 09:35 Dose: 2.5 mg Famotidine (Pepcid) 20 mg IVP DAILY [facility] Last Admin: 10/04/17 09:36 Dose: 20 mg Fluoxetine HCl (Prozac) 40 mg PO DAILY [facility] Last Admin: 10/04/17 09:35 Dose: 40 mg Sodium Chloride (Sodium Chloride 0.45%) 1,000 mls @ 60 mls/hr IV .[id number] [facility] Last Admin: 10/03/17 12:59 Dose: 60 mls/hr Insulin Human Regular (Humulin R High) 0 units SC ACHS [facility] PRN Reason: Protocol Last Admin: 10/04/17 09:36 Dose: 2 units Lorazepam (Ativan) 1 mg PO BID PRN; Protocol PRN Reason: Anxiety Last Admin: 10/03/17 08:59 Dose: 1 mg Ondansetron HCl (Zofran Inj) 4 mg IVP Q6H PRN PRN Reason: Nausea/Vomiting Pantoprazole Sodium (Protonix Inj) 40 mg IVP 0600 [facility] Last Admin: 10/04/17 05:13 Dose: 40 mg Tramadol HCl (Ultram) 50 mg PO TID [facility] Last Admin: 10/04/17 09:35 Dose: 50 mg - Labs Labs: 10/04/17 05:30 10/04/17 05:30 PT 10.2 SECONDS (9.4-12.5) 10/02/17 16:05 INR 0.90 (0.93-1.08) L 10/02/17 16:05 APTT 32.6 Seconds (25.1-36.5) 10/02/17 16:05 - Constitutional Appears: Well, Non-toxic - Head Exam Head Exam: NORMAL INSPECTION - Eye Exam Eye Exam: EOMI - ENT Exam ENT Exam: Mucous Membranes Moist - Respiratory Exam Respiratory Exam: NORMAL BREATHING PATTERN - Cardiovascular Exam Cardiovascular Exam: +S1, +S2 - GI/Abdominal Exam GI & Abdominal Exam: Soft. absent: Guarding, Organomegaly, Rebound - Extremities Exam Extremities Exam: Normal Inspection - Neurological Exam Neurological Exam: Alert, Awake - Skin Skin Exam: Dry, Intact Assessment and Plan - Assessment and Plan (Free Text) Assessment: Patient is a 56 year old female with PMH of HTN, uncontrolled T2DM, retinopathy /gastroparesis, MDD, LAUREN, and TIA/CVA who was admitted for evaluation and treatment of vomiting and epigastric pain. EGD from 01/2017 showed LAGB esophagitis, H/ pylori negative gastritis, retained gastric contents, and aperistalsis. Colonoscopy from 07/2016 endorsed to be normal. EGD 07/2017 with established plastering supervisor, Dr. Brayan Andersen in [place] endorsed to be normal. Epigastric Pain, N/V - likely secondary to gastroparesis - 10/02/17 CT A/P - colitis; right hemicolectomy; mildly prominent common duct status post cholecystectomy; hysterectomy; no acute solid visceral abnormality - HBA1c 10.5- requires better glucose control- follow up with outpatient food counter attendant - diet- carb consistent with small, frequent low fat meals - recommend Reglan ACHS and jame PRN Thank you for the opportunity to participate in the care of this patient. GI team will sign off at this time. Patient seen with, case reviewed by, and plan approved by attending physician, Dr. Zambrano. <Dagoberto Zambrano - Last Filed: 10/04/17 13:26> Objective - Vital Signs/Intake and Output Vital Signs (last 24 hours): Temp Pulse Resp BP Pulse Ox 98.3 F 104 H 20 150/83 97 10/04/17 08:08 10/04/17 08:08 10/04/17 08:08 10/04/17 09:35 10/04/17 08:08 Intake and Output: 10/04/17 10/04/17 06:59 18:59 Intake Total 660 Balance 660 - Medications Medications: Current Medications Amlodipine Besylate (Norvasc) 2.5 mg PO DAILY [facility] Last Admin: 10/04/17 09:35 Dose: 2.5 mg Famotidine (Pepcid) 20 mg PO HS [facility] Fluoxetine HCl (Prozac) 40 mg PO DAILY [facility] Last Admin: 10/04/17 09:35 Dose: 40 mg Sodium Chloride (Sodium Chloride 0.45%) 1,000 mls @ 60 mls/hr IV .[id number] [facility] Last Admin: 10/03/17 12:59 Dose: 60 mls/hr Insulin Human Regular (Humulin R High) 0 units SC ACHS [facility] PRN Reason: Protocol Last Admin: 10/04/17 12:32 Dose: 2 units Lorazepam (Ativan) 1 mg PO BID PRN; Protocol PRN Reason: Anxiety Last Admin: 10/03/17 08:59 Dose: 1 mg Ondansetron HCl (Zofran Inj) 4 mg IVP Q6H PRN PRN Reason: Nausea/Vomiting Pantoprazole Sodium (Protonix Inj) 40 mg IVP 0600 [facility] Last Admin: 10/04/17 05:13 Dose: 40 mg Tramadol HCl (Ultram) 50 mg PO TID [facility] Last Admin: 10/04/17 13:12 Dose: 50 mg - Labs Labs: 10/04/17 05:30 10/04/17 05:30 PT 10.2 SECONDS (9.4-12.5) 10/02/17 16:05 INR 0.90 (0.93-1.08) L 10/02/17 16:05 APTT 32.6 Seconds (25.1-36.5) 10/02/17 16:05 Attending/Attestation - Attestation I have personally seen and examined this patient.: Yes I have fully participated in the care of the patient.: Yes I have reviewed all pertinent clinical information, including history, physical exam and plan: Yes Notes (Text): 10/04/17 13:23 I have seen and examined patient with GI fellow and medical insurance coder. No acute events overnight, she continues to endorse LUQ/epigastric abdominal pain which is worse following meal consumption along with ongoing nausea. She denies vomiting, diarrhea, fever/chills. She was able to tolerate PO liquids this morning without difficulty. Review of vitals from today shows tachycardia. HTN DM - uncontrolled Abdominal pain, gastroparesis CVA - Advance diet to diabetic, small frequent meals throughout the day - Patient counseled regarding importance of strict blood glucose control - Anti-emetic therapy PRN - Patient with recent EGD in July 2017 with private GI physician, apparently normal findings. Obtain prior endoscopic report. - Suggest outpatient close endocrine follow up after hospital discharge - No further planned GI intervention, will sign off case, please reconsult as necessary thank you.
--- NOTE | 2017-10-05 09:08 | DS ---
HISTORY OF PRESENT ILLNESS: She is now eating better, still having some pain, changeover operator to tramadol at home, but is better than when she came in, no more nausea or vomiting. She is passing gas, just not happy overall from her colitis. PHYSICAL EXAMINATION: VITAL SIGNS: She has 98.3 temp, 104 pulse, 150/83 blood pressure, 20 respiratory rate, 97% O2 sat on 2 liters. HEAD: Atraumatic, normocephalic. HEART: Regular rate with decreased breath sounds, but clear. ABDOMEN: Soft. Positive bowel sounds. Nontender at this time. EXTREMITIES: No edema. MEDICATIONS: She is going to go home on her Ativan, Norvasc, Pepcid, Protonix, Prozac, Zofran and tramadol. LABORATORY DATA: She has a 9.1 white count, 12.7 hemoglobin, 37.2 hematocrit, 253 platelets. Sodium 139, potassium 3.6, BUN 22, creatinine 0.8, GFR is greater than 60, blood sugar is 137, calcium is 8.2. Total bilirubin is 0.4. AST is 30, ALT is 25, alk phos 60. Total protein is 5.5. ASSESSMENT AND PLAN: I discussed the importance of not eating sugars, candies, cakes and careful with the fruits, pastas, potatoes, rice, breads, so that we can keep her blood sugars under control. I do not know she will listen, but she had low sugar diet again. I will see she does her lunch. Josafat Dent DO MTDD
== END 2017-10-04 14:30 | disposition home or self-care (01) ==
LOC: ED 15:37 → ERH 20:17 → 3RSO 21:43
PROVIDERS: ADMIT Family Medicine; ATTEND Family Medicine
DX: E11.43 Type 2 diabetes mellitus with diabetic autonomic (poly)neuropathy (principal); K31.84 Gastroparesis; E11.65 Type 2 diabetes mellitus with hyperglycemia; K52.9 Noninfective gastroenteritis and colitis, unspecified; I10 Essential (primary) hypertension; J44.9 Chronic obstructive pulmonary disease, unspecified; E11.319 Type 2 diabetes mellitus with unspecified diabetic retinopathy without macular edema; F32.9 Major depressive disorder, single episode, unspecified; F41.1 Generalized anxiety disorder; K20.9 Esophagitis, unspecified; Z86.73 Personal history of transient ischemic attack (TIA), and cerebral infarction without residual deficits; Z90.49 Acquired absence of other specified parts of digestive tract; Z90.710 Acquired absence of both cervix and uterus
CPT/HCPCS: 36415; 71045; 74177; 80053; 81001; 82803; 82948; 83036; 83690; 83735; 85025; 85027; 85610; 85730; 87086; 93005; 96361; 96365; 96375; 96376; 97116; 97162; 99284; C9113; G0378; G8978; G8979; J1170; J1200; J1364; J2270; J2405; J2765; J3480; J7030; J7040; Q9967

== ENCOUNTER 2017-10-17 20:47 | Inpatient (IN) | payer BC, MEDICARE ==
[2017-10-17 21:13] VITALS: BMI 20.9
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
[2017-10-17] MEDS ORDERED: Sodium Chloride 0.9% 1,000 ML IV STA (21:43)
[2017-10-17] MEDS ORDERED: Morphine 4 mg/ml ISec IVP STA (21:43)
[2017-10-17 22:12] LABS: BASO # 0.02 K/mm3 (0.0-2.0); BASO % 0.1 % (0.0-3.0); EOS % 0.1 % (1.5-5.0); GRAN # 16.1 (1.4-6.5); HEMOGLOBIN 14.1 g/dL (12.0-16.0); LYMPH # 0.9 (1.2-3.4); LYMPH % 5.1 % (22.0-35.0); MEAN CELL VOLUME 80.1 fl (80.0-105.0); MEAN CORPUSCULAR HGB CONC 36.2 g/dl (31.0-37.0); MEAN PLATELET VOLUME 10.1 fl (7.0-11.0); MONO # 0.9 (0.1-0.6); MONO % 4.7 % (1.0-6.0); RBC 4.87 10^6/uL (3.5-6.1); WHITE BLOOD COUNT 17.9 10^3/ul (4.5-11.0)
[2017-10-17] MEDS ORDERED: HYDROmorphone 1 mg/ml ISec IVP STA (22:35)
[2017-10-17 22:47] LABS: INR 0.91 (0.93-1.08); PARTIAL THROMBOPLASTIN TIME 22.9 Seconds (25.1-36.5); PROTHROMBIN TIME 10.3 SECONDS (9.4-12.5)
[2017-10-17 22:56] LABS: TROPONIN I < 0.01 ng/mL
[2017-10-17] MEDS ORDERED: Naloxone 0.4 mg/ml Inj (Adult) ONE (23:09)
[2017-10-17 23:12] LABS: ALB/GLOB RATIO 1.5 (1.1-1.8); ALBUMIN 3.9 g/dL (3.0-4.8); ALT/SGPT 33 U/L (7-56); AMYLASE 252 U/L (35-125); AST/SGOT 28 U/L (14-36); BLOOD UREA NITROGEN 22 mg/dL (7-21); CALCIUM 9.9 mg/dL (8.4-10.5); GFR AFRICAN-AMERICAN > 60; GFR NON-AFRICAN AMERICAN > 60; LIPASE 33 U/L (23-300)
[2017-10-17] MEDS ORDERED: Naloxone 0.4 mg/ml Inj (Adult) IVP STA ×2 (23:13)
[2017-10-18 00:54] LABS: PH,URINE 7.5 (4.7-8.0); URINE BILIRUBIN NEGATIVE (NEGATIVE); URINE BLOOD SMALL (NEGATIVE); URINE GLUCOSE (UA) >=1000 mg/dL (NEGATIVE); URINE LEUKOCYTE ESTERASE NEGATIVE Leu/uL (NEGATIVE); URINE PROTEIN >=300 mg/dL (<30 mg/dL); URINE UROBILINOGEN 0.2 E.U./dL (<1 E.U./dL)
[2017-10-18 00:57] LABS: URINE APPEARANCE CLEAR (CLEAR); URINE COLOR YELLOW (YELLOW)
[2017-10-18 01:14] LABS: URINE WBC 0 - 2 /hpf (0-6)
[2017-10-18 01:15] LABS: URINE BACTERIA OCC (NEG)
--- NOTE | 2017-10-18 01:22 | CT ---
EXAM: CT Abdomen and Pelvis Without Intravenous Contrast CLINICAL HISTORY: 56 years old, female; Pain; Abdominal pain; Additional info: Abd pain TECHNIQUE: Axial computed tomography images of the abdomen and pelvis without intravenous contrast. All CT scans at this facility use one or more dose reduction techniques, viz.: automated exposure control; ma/kV adjustment per patient size (including targeted exams where dose is matched to indication; i.e. head); or iterative reconstruction technique. Coronal and sagittal reformatted images were created and reviewed. COMPARISON: CT - ABD PELVIS IV CONTRAST ONLY 2017-10-02 18:53 FINDINGS: Lung bases: Unremarkable. No mass. No consolidation. ABDOMEN: Liver: Unremarkable. Gallbladder and bile ducts: There has been a cholecystectomy. No ductal dilation. Pancreas: Unremarkable. No ductal dilation. Spleen: Unremarkable. No splenomegaly. Adrenals: Unremarkable. No mass. Kidneys and ureters: There is a simple cyst in the left kidney. 1 mm right renal calcification. No hydronephrosis. Stomach and bowel: Malrotation of the bowel is noted. The small bowel loops are predominantly in the right-sided the abdomen. The large bowel as on the left side. There are mildly loops of proximal small bowel in the right upper abdomen with mild stranding of the adjacent small bowel mesentery. Image 43 series 2. Findings could be secondary to an acute enteritis. There is no wall thickening or pericolonic stranding to suggest colitis. PELVIS: Bladder: Unremarkable. No stones. Reproductive: Unremarkable as visualized. ABDOMEN and PELVIS: Intraperitoneal space: There are surgical clips in the abdomen consistent with previous surgery. No free air. No significant fluid collection. Bones/joints: No acute fracture. No dislocation. Soft tissues: Unremarkable. Vasculature: The vasculature demonstrates diffuse moderate atherosclerotic calcification. No abdominal aortic aneurysm. Lymph nodes: Unremarkable. No enlarged lymph nodes. IMPRESSION: Intestinal malrotation. Thick walled proximal small bowel with mild adjacent stranding of the mesenteric fat. Findings could be secondary to an acute enteritis. Clinical correlation recommended. Right renal stone. Cholecystectomy.
[2017-10-18] MEDS ORDERED: metroNIDAZOLE IV 500 mg/100 ml 500 MG/100 ML BAG IVPB STA (01:38)
[2017-10-18] MEDS ORDERED: Sodium Chloride 0.9% 1,000 ML IV STA (03:00)
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
[2017-10-18] MEDS ORDERED: Insulin Reg-LOW-Coverage SC SCH (07:30)
[2017-10-18] MEDS: HYDROmorphone 2 mg/ml ISec IVP PRN ×2 (07:56→15:13)
[2017-10-18] MEDS: Insulin Reg-HIGH-Coverage SC SCH ×2 (07:57→11:55)
[2017-10-18] MEDS ORDERED: metroNIDAZOLE IV 500 mg/100 ml 500 MG/100 ML BAG IVPB SCH (08:00)
[2017-10-18] MEDS ORDERED: Ciprofloxacin 400mg/200ml D5W 400 MG/200 ML BAG IVPB SCH (10:00)
[2017-10-18] MEDS: Piperacillin/Tazobact 3.375 gm 100 ML IVPB SCH ×3 (10:18→18:58)
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
--- NOTE | 2017-10-18 17:35 | CON ---
DATE: 10/18/2017 ENDOCRINOLOGY CONSULT LOCATION: In room 369. HISTORY OF PRESENT ILLNESS: This is a 56-year-old female with known history of type 1 insulin-dependent diabetes, presenting here with diffuse upper abdominal pain and supervening intractable vomiting episodes with underlying history of diabetic gastroparesis and is now being admitted for further GI workup and management, and also referred now for diabetic evaluation and management because of supervening hyperglycemic accelerations as noted thereof. PAST MEDICAL HISTORY: As mentioned above, history of type 1 insulin-dependent diabetes, on a combination of Levemir given as 34 units subcu at bedtime daily with Humalog given as 4 units subcu t.i.d. before meals as ordered. History of hypertensive cardiovascular disease and dyslipidemia, history of diabetic retinopathy with prior laser treatments, diabetic painful polyneuropathy as noted. She also has diabetic macrovascular complications of coronary artery disease and also previous cerebrovascular disease with recurrent TIAs, one of which was in 2014 and the last one in 2016, with no residual focal neurologic deficits at this time. She also has underlying diabetic peripheral arterial disease and vasculopathy with the previous transmetatarsal amputation in the right foot as noted. PLAN OF MANAGEMENT: As discussed with the patient and staff, we will modify her current insulin regimen to obviate hypoglycemia because she is only on a liquid diet as noted. We will switch her over to a very low-dose correction scale using Humalog insulin as given and observe her glycemic accelerations as noted thereof. We will await the GI and surgical evaluation and workup at this time. Once she is cleared by the aforementioned specialists, then we advance her diet slowly from liquid to a soft diet moderate consistent carb and heart healthy diet as ordered. Moreover, as her glycemic levels remain more steady, then we can switch her over from the low-dose correction scale to a more physiologic basal and bolus insulin drug combination as ordered. We will obtain serial chemistries and supplement accordingly as needed. We will follow up. Tita Coe MD
--- NOTE | 2017-10-18 17:57 | CARD ---
APPROVED REPORT EKG Measurement Heart [id number] CT 124P50 [id number] <Conclusion> Normal sinus rhythm with sinus arrhythmia Normal ECG
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
[2017-10-19] MEDS: Insulin Lispro (humaLOG) LOW Coverage SC SCH ×5 (00:19→21:54)
[2017-10-19] MEDS: Piperacillin/Tazobact 3.375 gm 100 ML IVPB SCH ×5 (00:28→23:10)
[2017-10-19] MEDS: Pantoprazole 40mg/100mL NS 40 MG/100 ML BAG IVPB SCH (05:39)
[2017-10-19] MEDS: HYDROmorphone 1 mg/ml ISec IVP PRN ×2 (05:51→12:34)
[2017-10-19 06:49] LABS: MEAN CELL VOLUME 82.9 fl (80.0-105.0); MEAN CORPUSCULAR HEMOGLOBIN 28.1 pg (25.0-35.0); MEAN PLATELET VOLUME 9.9 fl (7.0-11.0); RBC 3.91 10^6/uL (3.5-6.1); RED CELL DISTRIBUTION WIDTH 13.8 % (11.5-14.5); WHITE BLOOD COUNT 11.4 10^3/ul (4.5-11.0)
--- NOTE | 2017-10-19 07:03 | CP.PCM.PN ---
<Joao Carter - Last Filed: 10/19/17 12:23> Subjective - Date & Time of Evaluation Date of Evaluation: 10/19/17 Time of Evaluation: 06:45 - Subjective Subjective: Subjective: Patient seen and examined at bedside. No acute events overnight. States abdominal pain, N/V have resolved. Tolerating diet. Offers no new complaints. No BM since 10/17/17. Denies fever, chills, chest pain, SOB, abdominal pain, N/V , diarrhea, constipation. Physical Examination: - Constitutional Appears: Non-toxic, No Acute Distress - Head Exam Head Exam: ATRAUMATIC, NORMOCEPHALIC - Eye Exam Eye Exam: EOMI - ENT Exam ENT Exam: Mucous Membranes Moist, Normal Oropharynx - Neck Exam Neck exam: Positive for: Full Rom, Normal Inspection - Respiratory Exam Respiratory Exam: Clear to Auscultation Bilateral. absent: Rales, Rhonchi, Wheezes - Cardiovascular Exam Cardiovascular Exam: RRR, +S1, +S2. absent: Gallop, Rubs - GI/Abdominal Exam GI & Abdominal Exam: Soft, absent: Distended, Firm, Guarding, Rebound, Rigid, Tenderness, Organomegaly - Extremities Exam Extremities exam: Positive for: normal inspection. Negative for: pedal edema - Neurological Exam Neurological exam: Alert, Oriented x3 - Psychiatric Exam Psychiatric exam: Normal Affect, Normal Mood - Skin Skin Exam: Dry, Intact, Normal Color, Warm Assessment and Plan: Patient is a 56 year old female with PMHx of HTN, uncontrolled T2DM complicated by retinopathy/gastroparesis, MDD, LAUREN, and TIA/CVA who was admitted for evaluation and treatment of abdominal pain, nausea, vomiting, and diarrhea. Prior EGD 01/2017 showed LAGB esophagitis, H/ pylori negative gastritis, retained gastric contents, and aperistalsis. Prior colonoscopy 07/2016 endorsed to be normal. EGD 07/2017 with established real estate account executive, Dr. Brayan Andersen in [place] endorsed to be normal. CT abdomen/pelvis without contrast from 10/17/17 showed intestinal malrotation, thick walled proximal small bowel with mild adjacent stranding of the mesenteric fat potentially secondary to an acute enteritis, and right renal stone. Abdominal Pain likely 2/2 gastroparesis 2/2 poor blood glucose control Leukocytosis likely reactive in nature vs gastroenteritis Hx of HTN Hx of Type 2 DM Hx of TIA/CVA - advance diet as tolerated - blood cultures- no growth after 24 hours - C. diff assay ordered and pending - antibiotics as per ID - Continue Reglan for pro kinetic effect as n/v can be 2/2 gastroparesis - Continue Zofran for antiemetic effects - Continue ppi as GI ppx - pain control - strict blood glucose control Thank you for the opportunity in participating in the care of this patient. Objective - Vital Signs/Intake and Output Vital Signs (last 24 hours): Temp Pulse Resp BP Pulse Ox 97.6 F 62 18 143/65 98 10/18/17 17:48 10/18/17 17:48 10/18/17 17:48 10/18/17 17:48 10/18/17 17:48 Intake and Output: 10/18/17 10/19/17 18:59 06:59 Intake Total 540 Balance 540 - Medications Medications: Current Medications Aspirin (Aspirin Chewable) 81 mg PO DAILY REPLACED BY [facility] Last Admin: 10/18/17 09:54 Dose: 81 mg Dicyclomine HCl (Bentyl) 10 mg PO TID REPLACED BY [facility] Last Admin: 10/18/17 18:57 Dose: 10 mg Fluoxetine HCl (Prozac) 40 mg PO DAILY REPLACED BY [facility] Last Admin: 10/18/17 09:54 Dose: 40 mg Gabapentin (Neurontin) 300 mg PO TID REPLACED BY [facility] PRN Reason: Protocol Last Admin: 10/18/17 18:57 Dose: 300 mg Hydromorphone HCl (Dilaudid) 1 mg IVP Q4H PRN PRN Reason: Pain, moderate (4-7) Last Admin: 10/19/17 05:51 Dose: 1 mg Pantoprazole Sodium (Protonix 40mg Ivpb) 40 mg in 100 mls @ 200 mls/hr IVPB 0600 REPLACED BY [facility] Last Admin: 10/19/17 05:39 Dose: 200 mls/hr Piperacillin Sod/Tazobactam Sod (Zosyn 3.375 In Ns 100ml) 100 mls @ 200 mls/hr IVPB Q6 REPLACED BY [facility] PRN Reason: Protocol Stop: 10/25/17 08:52 Last Admin: 10/19/17 05:39 Dose: 200 mls/hr Insulin Human Lispro (Humalog Low) 0 units SC ACHS REPLACED BY [facility] PRN Reason: Protocol Last Admin: 10/19/17 00:19 Dose: Not Given Lorazepam (Ativan) 1 mg PO BID PRN; Protocol PRN Reason: Anxiety Metoclopramide HCl (Reglan) 10 mg IVP ACHS REPLACED BY [facility] Last Admin: 10/18/17 22:38 Dose: 10 mg Ondansetron HCl (Zofran Inj) 4 mg IVP Q4H PRN PRN Reason: Nausea/Vomiting Sucralfate (Carafate Tab) 1 gm PO QID REPLACED BY [facility] Last Admin: 10/18/17 22:38 Dose: 1 gm - Labs Labs: PT 10.3 SECONDS (9.4-12.5) 10/17/17 22:00 INR 0.91 (0.93-1.08) L 10/17/17 22:00 APTT 22.9 Seconds (25.1-36.5) L 10/17/17 22:00 <Willie Jaime - Last Filed: 10/19/17 13:30> Objective - Vital Signs/Intake and Output Vital Signs (last 24 hours): Temp Pulse Resp BP Pulse Ox 96.9 F L 70 18 150/90 98 10/19/17 08:03 10/19/17 09:12 10/19/17 08:03 10/19/17 09:12 10/19/17 08:03 - Medications Medications: Current Medications Aspirin (Aspirin Chewable) 81 mg PO DAILY REPLACED BY [facility] Last Admin: 10/19/17 09:13 Dose: 81 mg Dicyclomine HCl (Bentyl) 10 mg PO TID REPLACED BY [facility] Last Admin: 10/19/17 09:13 Dose: 10 mg Fluoxetine HCl (Prozac) 40 mg PO DAILY REPLACED BY [facility] Last Admin: 10/19/17 09:13 Dose: 40 mg Gabapentin (Neurontin) 300 mg PO TID REPLACED BY [facility] PRN Reason: Protocol Last Admin: 10/19/17 09:12 Dose: 300 mg Hydromorphone HCl (Dilaudid) 1 mg IVP Q4H PRN PRN Reason: Pain, moderate (4-7) Last Admin: 10/19/17 12:34 Dose: 1 mg Pantoprazole Sodium (Protonix 40mg Ivpb) 40 mg in 100 mls @ 200 mls/hr IVPB 0600 REPLACED BY [facility] Last Admin: 10/19/17 05:39 Dose: 200 mls/hr Piperacillin Sod/Tazobactam Sod (Zosyn 3.375 In Ns 100ml) 100 mls @ 200 mls/hr IVPB Q6 [facility] PRN Reason: Protocol Stop: 10/25/17 08:52 Last Admin: 10/19/17 12:20 Dose: 200 mls/hr Sodium Chloride (Sodium Chloride 0.45%) 1,000 mls @ 40 mls/hr IV .Q24H REPLACED BY [facility] Last Admin: 10/19/17 09:16 Dose: 40 mls/hr Insulin Human Lispro (Humalog Low) 0 units SC ACHS REPLACED BY [facility] PRN Reason: Protocol Last Admin: 10/19/17 12:21 Dose: Not Given Lisinopril (Zestril) 2.5 mg PO DAILY REPLACED BY [facility] Last Admin: 10/19/17 09:12 Dose: 2.5 mg Lorazepam (Ativan) 1 mg PO BID PRN; Protocol PRN Reason: Anxiety Metoclopramide HCl (Reglan) 5 mg IVP ACHS REPLACED BY [facility] Last Admin: 10/19/17 12:20 Dose: 5 mg Ondansetron HCl (Zofran Inj) 4 mg IVP Q4H PRN PRN Reason: Nausea/Vomiting Sucralfate (Carafate Tab) 1 gm PO QID REPLACED BY [facility] Last Admin: 10/19/17 09:12 Dose: 1 gm - Labs Labs: PT 10.3 SECONDS (9.4-12.5) 10/17/17 22:00 INR 0.91 (0.93-1.08) L 10/17/17 22:00 APTT 22.9 Seconds (25.1-36.5) L 10/17/17 22:00 Attending/Attestation - Attestation I have personally seen and examined this patient.: Yes I have fully participated in the care of the patient.: Yes I have reviewed all pertinent clinical information, including history, physical exam and plan: Yes Notes (Text): 10/19/17 13:29 56 year old female with h/o gastroparesis admitted with abdominal pain and nausea. Recommend reglan, bowel regimen, PPI, and glycemic control. Minimize narcotics. Recent endoscopy unremarkable. Will sign off. Advance diet as tolerated.
[2017-10-19 07:23] LABS: ALB/GLOB RATIO 1.2 (1.1-1.8); CALCIUM 8.2 mg/dL (8.4-10.5)
[2017-10-19] MEDS ORDERED: Potassium Chloride 20 mEq ER Tab PO ONE (08:54)
[2017-10-19] MEDS ORDERED: Sodium Chloride 0.45% 1,000 ML IV SCH (09:00)
--- NOTE | 2017-10-19 12:14 | PN ---
DATE: 10/19/2017 SUBJECTIVE: She is resting comfortably in bed. She is actually doing a bit better today than yesterday. The pain is better with the pain medications and she has a smidgen of an appetite. She is on aspirin, Ativan, Bentyl, Carafate, Dilaudid as needed, metronidazole IV, insulin coverage, Neurontin, pantoprazole, Prozac, Reglan, Zofran and Zosyn. OBJECTIVE: VITAL SIGNS: She has a 96.9 temperature; 70 pulse; 158/91 blood pressure and it is a little bit high, we will keep an eye on it; 18 respiratory rate, 98% O2 saturation on 2 liters nasal cannula. HEENT: Head is atraumatic, normocephalic. HEART: Regular rate. LUNGS: Decreased breath sounds. ABDOMEN: Softer, nontender today. Positive bowel sounds. EXTREMITIES: No edema. LABORATORY DATA: starting to improve. She has 136 sodium; potassium 3.2, I am going to give her potassium today. BUN 28, creatinine is 1.8 which is a little bit worse, going to give her some IV fluids. Blood sugar is down to 138, much better. AST is 18, ALT is 30, alkaline phosphatase 55, total protein is 5.6, albumin is 3. Urine was small. She is being seen by GI, Infectious Disease and Endocrinology. She is here for a few issues. She has severe abdominal pain; gastroparesis; diabetes; neuropathy; SIRS; enterocolitis, acute. We will continue with aggressive treatment and care as per Infectious Disease and GI. Hopefully, it will improve her, I just told to increase the diet. check her tomorrow. Josafat Dent DO MTDD
--- NOTE | 2017-10-19 16:05 | PN ---
DATE: 10/19/2017 SUBJECTIVE: The patient is seen earlier today in 369, bed 2. She states her nausea is resolved. She is doing much better and she has tolerated her diet. PHYSICAL EXAMINATION: VITAL SIGNS: Temperature is 96.9, blood pressure 150/90, respiratory rate of 18. HEENT: Examination of HEENT is unremarkable. NECK: Supple. LUNGS: Have decreased breath sounds. HEART: Normal S1, S2. ABDOMINAL: Soft, nontender. LABORATORY DATA: Laboratory examination reveals a white count of 11,400 and the chemistries revealed the patient has a BUN of 28, creatinine of 1.8. Urinalysis is noted and microbiology reveals the blood cultures are negative. MEDICATIONS: Review of medications revealed the patient to be off of antibiotics. ASSESSMENT AND PLAN: A 56-year-old with diabetes, hypertension, gastroparesis, history of transient ischemic attack, history of esophageal ulcer, history of cholecystectomy and status post and hysterectomy, history of right foot partial amputation, who is admitted now complaining of abdominal discomfort, nausea and vomiting. 1. Systemic inflammatory response syndrome, probably for an acute enteritis on top of acute exacerbation of gastroparesis and the patient currently off of antibiotics, afebrile and with normal white count. Cultures negative. Currently on Zosyn actually. The patient continues to do well. We will discontinue the Zosyn with gastroparesis. The patient's CAT scan of the abdomen and pelvis with acute enteritis. Intestinal malrotation. Dr. Carter's note is reviewed. Marc Sales MD
--- NOTE | 2017-10-19 16:07 | PN ---
DATE: 10/19/2017 ENDOCRINOLOGY FOLLOWUP NOTE LOCATION: Room 369. SUBJECTIVE: This is a 56-year-old female with known history of type 1 insulin-dependent diabetes, presenting here with diffuse abdominal pain and concomitant intractable vomiting episodes with possible exacerbation of diabetic gastroparesis and is now being followed closely for metabolic management. She is currently only on a liquid diet as given and the glucose values are fluctuating, but improved and the levels today have ranged from 138-208 mg/dL. Her latest chemistry showed a BUN of 28, sodium 136, potassium 3.2, chloride 97, CO2 of 30, glucose 131, and creatinine 1.8. ASSESSMENT: This is a 56-year-old female with uncontrolled and decompensated type 1 insulin-dependent diabetes, presenting here with abdominal pain and intractable vomiting episodes and is now being followed closely for metabolic management. She also has diabetic microvascular complications of diabetic retinopathy, polyneuropathy and diabetic macrovascular complications of coronary artery disease and previous cerebrovascular disease with prior transient ischemic events and also underlying peripheral arterial disease and vasculopathy with a previous transmetatarsal amputation in the right foot as noted. PLAN OF MANAGEMENT: As the patient is only on a liquid diet, we will continue the low-dose correction scale using Humalog insulin as given and as her diet is advanced, then we can switch over to a more physiologic basal and bolus insulin drug combination as given. At home, she was on a combination of Levemir given as 34 units at bedtime with Humalog given as 4 units t.i.d. before meals as ordered. We will await whether she can tolerate solid foods as the diet is advanced thereof. She is undergoing GI workup also at this time. We will obtain serial chemistries and supplement accordingly as needed. We will follow. Tita Coe MD
[2017-10-19] MEDS: POLYETHYLENE GLYCOL 3350 17 GM/Dose PACKET PO SCH ×2 (17:18→17:19)
[2017-10-19 20:02] VITALS: RESP 18
[2017-10-20] MEDS: HYDROmorphone 1 mg/ml ISec IVP PRN (04:31)
[2017-10-20] MEDS: Pantoprazole 40mg/100mL NS 40 MG/100 ML BAG IVPB SCH (05:29)
[2017-10-20] MEDS: Piperacillin/Tazobact 3.375 gm 100 ML IVPB SCH (06:03)
[2017-10-20 06:18] LABS: HEMOGLOBIN 10.7 g/dL (12.0-16.0); MEAN CELL VOLUME 82.5 fl (80.0-105.0); MEAN CORPUSCULAR HEMOGLOBIN 28.4 pg (25.0-35.0); MEAN CORPUSCULAR HGB CONC 34.4 g/dl (31.0-37.0); MEAN PLATELET VOLUME 9.8 fl (7.0-11.0); RBC 3.77 10^6/uL (3.5-6.1); RED CELL DISTRIBUTION WIDTH 13.3 % (11.5-14.5); WHITE BLOOD COUNT 8.2 10^3/ul (4.5-11.0)
[2017-10-20 06:39] LABS: ALB/GLOB RATIO 1.1 (1.1-1.8); ALBUMIN 2.9 g/dL (3.0-4.8); CALCIUM 7.8 mg/dL (8.4-10.5)
[2017-10-20] MEDS ORDERED: Insulin Lispro 1 UNITS/0.01 ML SC SCH ×2 (07:30→16:30)
[2017-10-20 07:50] VITALS: BP 106/60; PULSE 73; TEMP 98.5; O2SAT 97
[2017-10-20] MEDS ORDERED: Potassium Chloride 20 mEq ER Tab PO ONE (08:08)
[2017-10-20] MEDS: POLYETHYLENE GLYCOL 3350 17 GM/Dose PACKET PO SCH (09:11)
[2017-10-20] MEDS: Insulin Lispro (humaLOG) LOW Coverage SC SCH ×3 (09:11→16:38)
--- NOTE | 2017-10-20 13:38 | DS ---
HISTORY OF PRESENT ILLNESS: I saw her resting comfortably in bed this morning. She is feeling well. No chest pain or shortness of breath. No abdominal pain. MEDICATIONS: She is on aspirin, Ativan, Bentyl, Carafate, Cozaar, Dilaudid, which I am going to stop and change to tramadol, insulin Levemir, MiraLax, Neurontin, Norvasc, Protonix, Prozac, Reglan, IV fluids, Zofran and Zosyn. PHYSICAL EXAMINATION: VITAL SIGNS: Temperature 98.5, 73 pulse, 106/60 blood pressure, 18 respiratory rate, 97% O2 sat on room air. HEENT: Head: Atraumatic, normocephalic. HEART: Regular rate. LUNGS: Decreased breath sounds, but clear. ABDOMEN: Soft, nontender. Positive bowel sounds. EXTREMITIES: No edema. LABORATORY DATA: She has a 8.2 white count normal, 10.7 hemoglobin, 31.1 hematocrit with 196 platelets. Sodium 134, potassium is 3.4, I gave her potassium replacement. BUN 27, creatinine 1.8. Last blood sugar is 252, calcium 7.8, total bili is 0.3, AST is 22, ALT is 28, alkaline phosphatase 62, total protein is 5.4. She was here for abdominal pain, constipation, enterocolitis, acute colitis, low potassium. I plan to discharge her home today after she had a lunch this afternoon. I gave her potassium replacement also today and I will see her on a house-call. Josafat Dent DO
--- NOTE | 2017-10-20 16:20 | PN ---
DATE: 10/20/2017 SUBJECTIVE: The patient is seen in bed, in no acute distress, nontoxic. She is still nauseated. She states however no vomiting. She has tolerated liquid diet well. PHYSICAL EXAMINATION: VITAL SIGNS: Temperature is 98, blood pressure is 106/60, respiratory rate of 18. HEENT: Unremarkable. NECK: Supple. LUNGS: Have decreased breath sounds. HEART: Normal S1 and S2. ABDOMEN: Soft. LABORATORY DATA: Reveals a white count of 8.2, hemoglobin of 10, platelets of 196. Chemistry revealed a BUN of 27, creatinine of 1.8. Urinalysis is noted. Microbiology; blood cultures are negative. ASSESSMENT AND PLAN: A 56-year-old with diabetes mellitus, hypertension, gastroparesis, transient ischemic attack, history of esophageal ulcers, post cholecystectomy and systemic inflammatory response syndrome with acute enteritis on top of acute exacerbation of gastroparesis. Currently, off of antibiotics. Actually, the patient has received her Zosyn initially. Cultures negative. Currently, we discontinued the Zosyn. No further antibiotics needed. The patient's CAT scan of the abdomen is reviewed. Dr. Jaime's progress note is also reviewed. Recommended advanced diet. Marc Sales MD
--- NOTE | 2017-10-20 18:24 | CON ---
DATE: 10/20/2017 CARDIOLOGY CONSULTATION HISTORY: The patient is a 56-year-old woman with a history of gastroparesis, who presents with abdominal pain. PAST MEDICAL HISTORY: Includes diabetes mellitus, hypertension. No previous cardiac history is noted. Currently, the patient is feeling better. She is on chronic pain medications at home. SOCIAL HISTORY: She denies smoking. REVIEW OF SYSTEMS: Fourteen-point review of systems was reviewed in detail. No angina, no shortness of breath. No edema in lower extremities. No previous myocardial infarction. PHYSICAL EXAMINATION: VITAL SIGNS: Blood pressure 106/60, the heart rate is in the 70s. NECK: Negative JVD. LUNGS: Without rales. HEART: S1, S2. EXTREMITIES: Without edema. LABORATORY DATA: Hemoglobin is 10.7. Chemistries: BUN and creatinine are 27 and 1.8. Glucose is 254. IMPRESSION: 1. Gastroparesis. 2. Hypertension which is stable. 3. Diabetes mellitus. 4. Anemia. 5. Renal insufficiency. Given these findings, the patient's blood pressure is well-controlled. Her previous echo reveals good LV function. There are no active cardiac issues at this time. Carter Farmer MD
--- NOTE | 2017-10-20 18:43 | PN ---
DATE: 08/20/2017 ENDOCRINOLOGY FOLLOWUP NOTE LOCATION: Room 369. SUBJECTIVE: This is a 56-year-old female with recent uncontrolled type 1 insulin-dependent diabetes, now being followed closely for metabolic management. Her glycemic levels are fluctuating but much improved at this time. However, her oral intake still remains variable as per the nursing staff. No further vomiting episodes have been noted at this time. Her glucose levels have ranged from 171-252 mg/dL. Her latest chemistry showed a BUN of 27, sodium 134, potassium 3.4, chloride 97, CO2 of 27, glucose 254, and creatinine 1.8. The bedtime glucose was still elevated at 406 mg/dL. So, at this time, because of the variability of her oral intake and since she was just advanced with her diet regimen, we will continue the same basal insulin given as Levemir at 24 units subcu at bedtime daily as given. We will increase the Humalog to 10 units subcu t.i.d. before meals to start at dinner time today as ordered. We will continue the low-dose correction scale using NovoLog insulin as given. We will also obtain serial chemistries and supplement accordingly as needed. We will follow and advise accordingly. Tita Coe MD
[2017-10-20] MEDS ORDERED: Insulin Detemir 100 units/ml Vial (Levemir) SC SCH (22:00)
== END 2017-10-20 17:07 | disposition home or self-care (01) | DRG 392 ==
LOC: ED 20:47 → ERH 10-18 02:59 → 3RNO 10-18 03:55 → OBSVTOIN 10-19 08:49
PROVIDERS: ADMIT Family Medicine; ATTEND Family Medicine
DX: K52.9 Noninfective gastroenteritis and colitis, unspecified (principal); Q43.3 Congenital malformations of intestinal fixation; R65.10 Systemic inflammatory response syndrome (SIRS) of non-infectious origin without acute organ dysfunction; D64.9 Anemia, unspecified; E10.319 Type 1 diabetes mellitus with unspecified diabetic retinopathy without macular edema; E10.43 Type 1 diabetes mellitus with diabetic autonomic (poly)neuropathy; E10.51 Type 1 diabetes mellitus with diabetic peripheral angiopathy without gangrene; E10.65 Type 1 diabetes mellitus with hyperglycemia; E78.5 Hyperlipidemia, unspecified; I11.9 Hypertensive heart disease without heart failure; I25.10 Atherosclerotic heart disease of native coronary artery without angina pectoris; J44.9 Chronic obstructive pulmonary disease, unspecified; K21.9 Gastro-esophageal reflux disease without esophagitis; K31.84 Gastroparesis; N20.0 Calculus of kidney; Z79.4 Long term (current) use of insulin; Z86.73 Personal history of transient ischemic attack (TIA), and cerebral infarction without residual deficits; Z87.19 Personal history of other diseases of the digestive system; Z87.440 Personal history of urinary (tract) infections; M21.961 Unspecified acquired deformity of right lower leg; Z90.49 Acquired absence of other specified parts of digestive tract; Z90.710 Acquired absence of both cervix and uterus; Z83.3 Family history of diabetes mellitus; Z82.49 Family history of ischemic heart disease and other diseases of the circulatory system; R40.2412 Glasgow coma scale score 13-15, at arrival to emergency department; Z98.42 Cataract extraction status, left eye; Z98.41 Cataract extraction status, right eye

== ENCOUNTER 2017-11-13 13:13 | Observation (INO) | payer BC, MEDICARE ==
[2017-11-13 13:36] VITALS: BMI 20.1
[2017-11-13] MEDS ORDERED: Sodium Chloride 0.9% 1,000 ML IV STA ×2 (13:47→16:33)
[2017-11-13] MEDS ORDERED: HYDROmorphone 0.5 mg/0.5 ml ISec IVP STA (13:49)
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
[2017-11-13 14:50] LABS: BASO # 0.01 K/mm3 (0.0-2.0); BASO % 0.1 % (0.0-3.0); EOS % 0.4 % (1.5-5.0); GRAN # 9.24 (1.4-6.5); GRAN % 88.1 % (50.0-68.0); HEMOGLOBIN 13.7 g/dL (12.0-16.0); LYMPH # 0.8 (1.2-3.4); LYMPH % 7.3 % (22.0-35.0); MEAN CELL VOLUME 80.1 fl (80.0-105.0); MEAN CORPUSCULAR HGB CONC 36.1 g/dl (31.0-37.0); MEAN PLATELET VOLUME 9.5 fl (7.0-11.0); MONO # 0.4 (0.1-0.6); MONO % 4.1 % (1.0-6.0); RBC 4.73 10^6/uL (3.5-6.1); RED CELL DISTRIBUTION WIDTH 12.6 % (11.5-14.5); WHITE BLOOD COUNT 10.5 10^3/ul (4.5-11.0)
[2017-11-13 15:17] LABS: VENOUS BLOOD GAS PO2 89 mm/Hg (30-55)
[2017-11-13 16:06] LABS: ALB/GLOB RATIO 1.4 (1.1-1.8); ALBUMIN 3.9 g/dL (3.0-4.8); ALT/SGPT 25 U/L (7-56); AST/SGOT 23 U/L (14-36); BLOOD UREA NITROGEN 13 mg/dL (7-21); CALCIUM 9.1 mg/dL (8.4-10.5); GFR AFRICAN-AMERICAN > 60; GFR NON-AFRICAN AMERICAN > 60
[2017-11-13] MEDS ORDERED: Magnesium Sulfate 2 gm/50 ml 2 GM/50 ML BAG IVPB ONE (16:08)
--- NOTE | 2017-11-13 16:52 | RAD ---
HISTORY: Severe abdominal pain, assess for dilated loops bowel COMPARISON: Comparison made CT scan of the abdomen and pelvis dated 10/18/2017. The FINDINGS: BOWEL: No evidence of acute mechanical bowel obstruction. No evidence of dilated/ distended loops of large or small bowel. . Moderate amount of stool seen within the distal descending and sigmoid colon as well as rectum consistent with mild fecal retention/constipation. Metallic surgical clips again seen within the mid to lower abdomen as well as right upper quadrant of the abdomen the latter of which are consistent with prior cholecystectomy. BONES: Normal. OTHER FINDINGS: None. IMPRESSION: Findings suggest mild constipation. No evidence of acute mechanical bowel obstruction as above.
[2017-11-13] MEDS ORDERED: Sodium Chloride 0.9% 1,000 ML IV SCH (17:15)
[2017-11-13] MEDS: Sodium Chloride 0.45% 1,000 ML IV SCH (20:19)
[2017-11-13] MEDS ORDERED: Pneumococcal 23-Valent Vaccine IM ONE (21:12)
--- NOTE | 2017-11-13 21:39 | CP.PCM.PN ---
Subjective - Date & Time of Evaluation Date of Evaluation: 11/13/17 Time of Evaluation: 21:39 - Subjective Subjective: Nurse calls that patient's BP is 181/104. Norvasc 10 mg PO x 1 ordered. She was having abdominal pain. Received Toradol 30 mg IV was ordered. After which , BP was 198/111. When I went to see her , repeat BP was 186/111. She complains of epigastric pain. No other complaints. Denies chest pain, sob, nausea, sweating. Medical record was reviewed. This 56 year old woman was admitted for abdominal pain, vomiting, gastroparesis. Has PMH of HTN, DM II, COPD, TIA/CVA, anxiety, depression, multiple surgeries. Objective - Vital Signs/Intake and Output Vital Signs (last 24 hours): Temp Pulse Resp BP Pulse Ox 97.7 F 72 18 163/97 H 98 11/13/17 20:39 11/13/17 20:39 11/13/17 20:39 11/13/17 20:39 11/13/17 17:56 - Medications Medications: Current Medications Aspirin (Aspirin Chewable) 81 mg PO DAILY PATTI Clonidine HCl (Catapres Tts1 0.1 Mg/24 Hr) 1 patch TD Q7D@1000 PATTI Dicyclomine HCl (Bentyl) 10 mg PO TID PATTI Fluoxetine HCl (Prozac) 40 mg PO DAILY PATTI Gabapentin (Neurontin) 300 mg PO TID PATTI PRN Reason: Protocol Sodium Chloride (Sodium Chloride 0.45%) 1,000 mls @ 100 mls/hr IV .Q10H PATTI Last Admin: 11/13/17 20:19 Dose: 100 mls/hr Potassium Chloride (Potassium Chloride 10 Meq/100 Ml) 10 meq in 100 mls @ 50 mls/hr IVPB Q2H PATTI Stop: 11/13/17 22:44 Last Admin: 11/13/17 19:12 Dose: 50 mls/hr Insulin Human Regular (Humulin R High) 0 units SC ACHS PATTI PRN Reason: Protocol Ketorolac Tromethamine (Toradol) 30 mg IVP Q6H PRN PRN Reason: Pain, moderate (4-7) Last Admin: 11/13/17 20:07 Dose: 30 mg Lorazepam (Ativan) 1 mg PO BID PRN; Protocol PRN Reason: Anxiety Metoclopramide HCl (Reglan) 10 mg IVP ACHS PATTI Ondansetron HCl (Zofran Inj) 4 mg IVP Q4H PRN PRN Reason: Nausea/Vomiting Pantoprazole Sodium (Protonix Inj) 40 mg IVP Q12 PATTI - Labs Labs: Most Recent Lab Values WBC 10.5 10^3/ul (4.5-11.0) D 11/13/17 14:41 RBC 4.73 10^6/uL (3.5-6.1) 11/13/17 14:41 Hgb 13.7 g/dL (12.0-16.0) D 11/13/17 14:41 Hct 37.9 % (36.0-48.0) 11/13/17 14:41 MCV 80.1 fl (80.0-105.0) 11/13/17 14:41 MCH 29.0 pg (25.0-35.0) 11/13/17 14:41 MCHC 36.1 g/dl (31.0-37.0) 11/13/17 14:41 RDW 12.6 % (11.5-14.5) 11/13/17 14:41 Plt Count 281 10^3/uL (120.0-450.0) 11/13/17 14:41 MPV 9.5 fl (7.0-11.0) 11/13/17 14:41 Gran % 88.1 % (50.0-68.0) H 11/13/17 14:41 Lymph % (Auto) 7.3 % (22.0-35.0) L 11/13/17 14:41 Jenkins % (Auto) 4.1 % (1.0-6.0) 11/13/17 14:41 Eos % (Auto) 0.4 % (1.5-5.0) L 11/13/17 14:41 Baso % (Auto) 0.1 % (0.0-3.0) 11/13/17 14:41 Gran # 9.24 (1.4-6.5) H 11/13/17 14:41 Lymph # (Auto) 0.8 (1.2-3.4) L 11/13/17 14:41 Jenkins # (Auto) 0.4 (0.1-0.6) 11/13/17 14:41 Eos # (Auto) 0.0 (0.0-0.7) 11/13/17 14:41 Baso # (Auto) 0.01 K/mm3 (0.0-2.0) 11/13/17 14:41 pO2 89 mm/Hg (30-55) H 11/13/17 15:01 VBG pH 7.40 (7.32-7.43) 11/13/17 15:01 VBG pCO2 64.0 (40-60) H 11/13/17 15:01 VBG HCO3 39.6 mmol/l (21-28) H 11/13/17 15:01 VBG Total CO2 41.6 mmol.L (22-28) H 11/13/17 15:01 VBG O2 Sat (Calc) 97.4 % (40-65) H 11/13/17 15:01 VBG Base Excess 12.0 mmol/L (0.0-2.0) H 11/13/17 15:01 VBG Potassium 3.1 mmol/L (3.6-5.2) L 11/13/17 15:01 Sodium 137.0 mmol/L (132-148) 11/13/17 15:01 Chloride 95.0 mmol/L (98-107) L 11/13/17 15:01 Glucose 363 mg/dl (65-105) H 11/13/17 15:01 Lactate 1.1 mmol/L (0.7-2.1) 11/13/17 15:01 FiO2 21.0 % 11/13/17 15:01 Sodium 139 mmol/L (132-148) 11/13/17 15:01 Potassium 3.1 mmol/L (3.6-5.0) L 11/13/17 15:01 Chloride 89 mmol/L (98-107) L 11/13/17 15:01 Carbon Dioxide 38 mmol/L (21-33) H 11/13/17 15:01 Anion Gap 15 (10-20) 11/13/17 15:01 BUN 13 mg/dL (7-21) 11/13/17 15:01 Creatinine 0.7 mg/dl (0.7-1.2) 11/13/17 15:01 Est GFR ( Amer) > 60 11/13/17 15:01 Est GFR (Non-Af Amer) > 60 11/13/17 15:01 POC Glucose (mg/dL) 245 mg/dL (65-110) H 11/13/17 21:19 Random Glucose 338 mg/dL (70-110) H* D 11/13/17 15:01 Calcium 9.1 mg/dL (8.4-10.5) 11/13/17 15:01 Phosphorus 3.7 mg/dL (2.5-4.5) 11/13/17 15:01 Magnesium 1.5 mg/dL (1.7-2.2) L 11/13/17 15:01 Total Bilirubin 0.3 mg/dL (0.2-1.3) 11/13/17 15:01 AST 23 U/L (14-36) 11/13/17 15:01 ALT 25 U/L (7-56) 11/13/17 15:01 Alkaline Phosphatase 81 U/L (38-126) 11/13/17 15:01 Total Protein 6.7 g/dL (5.8-8.3) 11/13/17 15:01 Albumin 3.9 g/dL (3.0-4.8) 11/13/17 15:01 Globulin 2.8 gm/dL 11/13/17 15:01 Albumin/Globulin Ratio 1.4 (1.1-1.8) 11/13/17 15:01 Venous Blood Potassium 3.1 mmol/L (3.6-5.2) L 11/13/17 15:01 - Constitutional Appears: Well, No Acute Distress - Head Exam Head Exam: ATRAUMATIC, NORMAL INSPECTION, NORMOCEPHALIC - Eye Exam Eye Exam: Normal appearance - ENT Exam ENT Exam: Normal External Ear Exam - Neck Exam Neck Exam: Normal Inspection - Respiratory Exam Respiratory Exam: NORMAL BREATHING PATTERN - Cardiovascular Exam Cardiovascular Exam: absent: JVD - GI/Abdominal Exam GI & Abdominal Exam: Tenderness. absent: Distended Additional comments: Mild epigastric. - Rectal Exam Rectal Exam: Deferred - Exam Additional comments: Deferred. - Extremities Exam Extremities Exam: Normal Inspection - Back Exam Back Exam: NORMAL INSPECTION - Neurological Exam Neurological Exam: Alert, Awake, Oriented x3 - Psychiatric Exam Psychiatric exam: Normal Affect, Normal Mood - Skin Skin Exam: Normal Color Assessment and Plan - Assessment and Plan (Free Text) Assessment: Epigastric pain. Elevated blood pressure reading. Gastroparesis. Hypokalemia. DM II. HTN. Anxiety. Depression. Plan: Norvasc 10 gm PO x 1. Toradol 30 mg IV x 1. Continue present management.
[2017-11-13] MEDS ORDERED: Insulin Reg-HIGH-Coverage SC SCH (22:00)
--- NOTE | 2017-11-14 04:22 | CON ---
DATE: 11/13/2017 LOCATION: Room 564. HISTORY OF PRESENT ILLNESS: This is a 56-year-old female with known history of type 1 insulin-dependent diabetes, presenting here with intractable vomiting episodes and supervening severe upper abdominal pain, with a significant history of diabetic gastroparesis, and is now being referred for diabetic evaluation and management. PAST MEDICAL HISTORY: As mentioned above, history of type 1 insulin-dependent diabetes, currently on a combination of Levemir given as 34 units subcu at bedtime daily with Humalog given as per sliding scale at home, her glucose levels have been elevated over the past 3-4 days with glucose levels over 300 mg/dL as noted thereof, history of hypertension and dyslipidemia, history of diabetic retinopathy and polyneuropathy, history of cerebrovascular disease with two previous TIA events in the past, history of peripheral arterial disease and vasculopathy with a previous right transmetatarsal amputation. She also has a history of coronary artery disease on medical therapy. She had a prior right hemicolectomy for a colonic tumor over 20 years ago with subsequent cholecystectomy and appendectomy undertaken. She also had a prior and subsequent hysterectomy. FAMILY HISTORY: Positive for hypertension, diabetes and stomach cancer. SOCIAL HISTORY: The patient has supportive family. No known substance use. REVIEW OF SYSTEMS: As mentioned above. Admits to generalized body weakness with easy fatigability and tiredness and suboptimal energy level. Also admits to dizziness and lightheadedness, worse on the day of admission with bifrontal headaches and visual blurring as noted. No chest pains, but admits to episodic palpitations and shortness of breath, especially on exertion. Her oral intake has been nil and suboptimal with severe intractable vomiting episodes overnight till the day of admission with supervening diffuse upper abdominal pain. Also admits to marked polyuria, nocturia and polydipsia. Moreover, admits to lower extremity paresthesias, especially nocturnally. PHYSICAL EXAMINATION: GENERAL: This is an average built female, in no apparent distress. VITAL SIGNS: Blood pressure of 140/80, pulse of 100 beats per minute regular, temperature 98, respirations 20, height is 5 feet 6 inches, weight is 125 pounds. HEENT: Head normocephalic. Eyes anicteric with pink conjunctivae. Funduscopy not possible at this time. Ears, nose and throat otherwise normal. NECK: Supple. Thyroid gland is normal in size. No carotid bruits or cervical adenopathy. CARDIOPULMONARY: Some adynamic precordium. S1, S2 is rapid and regular. LUNGS: Clear to auscultation. ABDOMEN: Flat, soft with positive bowel sounds. EXTREMITIES: No peripheral edema. Pulses are diminished peripherally. The stump in the right foot has healed with no active dermatosis. LABORATORY DATA: Initial chemistries; BUN of 13, sodium 139, potassium 3.1, chloride 89, CO2 of 38, glucose 338, and creatinine 0.7. Her glucose levels have ranged from 245-270 mg/dL. ASSESSMENT: This is a 56-year-old female with uncontrolled and decompensated type 1 insulin-dependent diabetes, presenting here with severe exacerbation of diabetic gastroparesis with supervening hyperglycemic accelerations as noted thereof. She also has diabetic microvascular complications of retinopathy and polyneuropathy as noted. Moreover, she also has diabetic macrovascular complications of cerebrovascular disease with two prior TIA events and coronary artery disease with also severe peripheral arterial disease and vasculopathy with a prior right transmetatarsal amputation as noted. PLAN: Plan of management discussed with the patient and the staff. We will modify her current insulin regimen, and since she is currently n.p.o., we will give her basal insulin at the low dose of Levemir given as 12 units subcu every 12 hours at 10:00 a.m. and 10:00 p.m. daily as ordered. This will be given even if she is n.p.o., as there is ongoing hepatic gluconeogenesis especially when the patient is n.p.o. We will modify the coverage scale to a low-dose algorithm using Humalog insulin as given, and detailed orders have been written. We will also obtain a serum cortisol and ACTH level as ordered to exclude any underlying autoimmune endocrinopathy. We will also obtain a hemoglobin A1c to confirm her poor glycemic control, and baseline thyroid function studies have also been ordered. As her oral intake improves and as the diet is advanced to a moderate consistency carb diet, then we will switch over to a more physiologic basal and bolus insulin regimen to optimize metabolic control. We will obtain serial chemistries and supplement accordingly needed. We will follow. Tita Coe MD
--- NOTE | 2017-11-14 05:21 | HP ---
HISTORY OF PRESENT ILLNESS: I was called to the emergency room because she has been having a very rough time at home with throwing up overnight, several episodes of upper abdominal pain, severe. She has had this before when she had gastroparesis, some gas that is waking her out of sleep. She has been seeing the chocolate packer and hod carrier on the outpatient after she was discharged for gastroparesis. Her blood sugars are in the 300s. No shortness of breath, no chest pain, but tons of abdominal pain, severe, and throwing up. PAST MEDICAL HISTORY: Hypertension; uncontrolled diabetes; complicated retinopathy, neuropathy, gastroparesis. She is depressed, she is anxious. COPD, TIAs, CVAs. She has had a right hemicolectomy with ileocolic anastomosis, benign colonic tumor, cholecystectomy, appendectomy, hysterectomy, , left-sided hernia repair, right metatarsal amputation, stomach cancer. She has had this for 2 days; it is gradual; it is worsening, severe, levels of 10 abdominal pain, nausea, vomiting. Also hypertension, COPD. She had bilateral cataracts, type 1 diabetic. She has had transfusions in the past. Ten wilbert in the back of her head, left elbow abrasion, multiple skin discolorations on both arms from falls. She had lesions in the esophagus, gastroparesis. Neuropathy, bilateral lower extremity and upper extremity. Anxiety. Amputation of the half of the right foot. FAMILY HISTORY: Mother and sister with Crohn's disease. SOCIAL HISTORY: No smoking. No drinking. No drugs. ALLERGIES: NO KNOWN DRUG ALLERGIES. MEDICATIONS: Aspirin, Bentyl, Prozac, Neurontin, Ativan, Reglan, omeprazole, Carafate, Norvasc, Levemir, Humalog, and Ultram. REVIEW OF SYSTEMS: No acute vision or hearing changes. No sore throat. No shortness of breath or cough. She has a little bit of chest pain, but it is mostly from throwing up and reflux. There is abdominal pain, severe; there is nausea; vomiting; cannot eat; some gas. No problems urinating. No apparent skin issues that she knows of. PHYSICAL EXAMINATION: VITAL SIGNS: Temperature 98.3, pulse 88, respiratory rate 20, blood pressure 199/98, and 99% O2 sat on room air. HEENT: Head is atraumatic, normocephalic. Throat is dry. Throat is erythematous from throwing up. NECK: Supple. Thyroid midline. No palpable appreciable lymphadenopathy. LUNGS: Decreased breath sounds, but clear to auscultation. HEART: Regular rate. Normal S1, S2. ABDOMEN: Diffuse tenderness, acutely tender over mid abdominal section. No guarding, no rebound, with lots of discomfort. Decreased bowel sounds. EXTREMITIES: No edema. Right TMA present. NEUROLOGICAL: GCS is 15. Cranial nerves II through XII grossly intact. Speech is normal. SKIN: For what I can tell is warm and dry. Normal turgor. No skin rashes or ulcers. Alert and oriented x3. LABORATORY DATA: She had multiple tests done, 89 PO2, 7.4 pH. 10.5 white count, 13.7 hemoglobin, 37.9 hematocrit; 281 platelets. 139 sodium; potassium 3.1, replacing the potassium; BUN 13, creatinine 0.7, GFR is greater than 60. Last blood sugar was 270, it was as high as 338. 9.1 calcium, 3.7 phosphorus, magnesium 1.5. Total bili is 0.3, AST is 23, ALT is 25, alk phos 81, total protein 6.7, albumin is 3.9. Abdominal x-ray showed mild constipation. IMPRESSION AND PLAN: She is going to have a Dulcolax suppository, IV fluids, Toradol, Bentyl, K-riders, Protonix, Reglan, Zofran, oxygen. She is going to have a consult with Endocrinology, GI, and Cardiology. She has also been put on a TTS patch for the blood pressure being so high. Severe abdominal pain, gastroparesis, nausea, vomiting; diabetes very high; constipation. Josafat Dent DO
[2017-11-14 06:55] LABS: HEMOGLOBIN 12.6 g/dL (12.0-16.0); MEAN CELL VOLUME 80.6 fl (80.0-105.0); MEAN CORPUSCULAR HEMOGLOBIN 28.1 pg (25.0-35.0); MEAN CORPUSCULAR HGB CONC 34.9 g/dl (31.0-37.0); MEAN PLATELET VOLUME 9.3 fl (7.0-11.0); RBC 4.48 10^6/uL (3.5-6.1); RED CELL DISTRIBUTION WIDTH 12.6 % (11.5-14.5)
[2017-11-14 06:57] LABS: ALB/GLOB RATIO 1.4 (1.1-1.8); ALBUMIN 3.8 g/dL (3.0-4.8); ALT/SGPT 25 U/L (7-56); AST/SGOT 20 U/L (14-36); BLOOD UREA NITROGEN 11 mg/dL (7-21); CALCIUM 8.9 mg/dL (8.4-10.5); GFR AFRICAN-AMERICAN > 60; GFR NON-AFRICAN AMERICAN > 60
[2017-11-14] MEDS: Insulin Lispro 1 UNITS/0.01 ML SC SCH ×4 (07:54→21:02)
[2017-11-14] MEDS ORDERED: Morphine 2 mg/ml ISec IVP PRN (09:57)
[2017-11-14] MEDS ORDERED: Non Formulary Medication (Fluoxetine Hcl [Prozac] 40 MG) PO SCH (10:00)
[2017-11-14] MEDS: Insulin Detemir 100 units/ml Vial (Levemir) SC SCH ×2 (11:47→21:01)
[2017-11-14] MEDS: HYDROmorphone 0.5 mg/0.5 ml ISec IVP PRN ×2 (13:07→18:00)
--- NOTE | 2017-11-14 13:15 | CARD ---
APPROVED REPORT EKG Measurement Heart [id number] <Conclusion> Normal sinus rhythm with sinus arrhythmia ST & T wave abnormality, consider inferolateral ischemia Prolonged QT Abnormal ECG
[2017-11-14 16:06] VITALS: RESP 20
--- NOTE | 2017-11-14 17:25 | PN ---
DATE: 11/14/2017 SUBJECTIVE: She is in severe pain when I am seeing her now, cramping in the abdomen. Not passing any bowels or gas. Nauseousness, cannot keep anything down. She is on IV fluids, aspirin, Ativan, Bentyl, clonidine for the blood pressure which is fanny high. She finally agrees to get some Dilaudid. She refused Dilaudid and morphine. Insulin coverage, Levemir, magnesium replacement, Neurontin, Norvasc, Prozac, Reglan, IV fluids. She also has Toradol, Ultram and Zofran. She eat. She is in pain. PHYSICAL EXAMINATION: VITAL SIGNS: She has a 97.6 temp, 79 pulse, 156/81 blood pressure, 16 respiratory rate and 100% O2 sat on nasal cannula. HEENT: Head is atraumatic, normocephalic. GENERAL: She is definitely uncomfortable, in pain, difficult to talk with, family is present. HEART: Regular rate. LUNGS: Decreased breath sounds, but clear. ABDOMEN: Mildly distended. Decreased bowel sounds. Discomfort everywhere, difficult to get an exam as she is writhing and on the side. EXTREMITIES: Have no edema. She finally agrees me to go to Dilaudid. She has been refusing and just on Toradol. LABORATORY DATA: She has a 9 white count, 12.6 hemoglobin, 36.1 hematocrit with a 264 platelets. She has a 140 sodium, potassium 3.2, I will replace the potassium. BUN 11, creatinine 0.3, GFR is greater than 60, sugar is 192, calcium is 8.9, total bili is 0.2, AST is 20, ALT is 25, alk phos 81, total protein 6.6. TSH is 0.82. ASSESSMENT AND PLAN: She is having gastroparesis; constipation; abdominal pain, severe; intractable nausea and vomiting, intractable abdominal pain. Holding the Dilaudid helps her a little bit. She is still on observation. Hoping that maybe by tomorrow we can discharge her. We will see how she does. Josafat Dent DO [facility] # [id number] MTDD
--- NOTE | 2017-11-14 22:58 | CON ---
DATE: 11/14/2017 CARDIOLOGY CONSULTATION HISTORY OF PRESENT ILLNESS: The patient is a 56-year-old woman who presents with nausea and vomiting consistent with gastroparesis. The patient has had gastroparesis in the past. She was found to be while admitted to the hospital. The patient denies chest pain, denies previous cardiac history. Her past medical history includes an echocardiogram which revealed good LV function. SOCIAL HISTORY: Denies smoking. REVIEW OF SYSTEMS: A14 point review of systems reviewed in detail. No cardiac symptomatology is noted. PHYSICAL EXAMINATION: VITAL SIGNS: Blood pressure is 156/81, the heart rates in 80. NECK: Negative JVD. LUNGS: Without rales. HEART: With S1, S2. EXTREMITIES: Without edema. EKG shows normal sinus rhythm with diffuse ST-T changes. LABORATORY DATA: Reveal hemoglobin of 12.6. Glucose is 197, BUN and creatinine unremarkable. IMPRESSION: 1. Hypertension secondary to being off her medications secondary to . 2. Nausea and vomiting. 3. Gastroparesis. 4. Diabetes mellitus. PLAN: Given these findings, the patient's cardiac status is stable. Her pressure is acceptable given her acute nausea at this time. We will continue with the clonidine patch. Carter Farmer MD
[2017-11-15] MEDS: Sodium Chloride 0.45% 1,000 ML IV SCH (00:16)
[2017-11-15 07:00] LABS: HEMOGLOBIN 11.4 g/dL (12.0-16.0); MEAN CORPUSCULAR HEMOGLOBIN 28.4 pg (25.0-35.0); MEAN CORPUSCULAR HGB CONC 34.7 g/dl (31.0-37.0); MEAN PLATELET VOLUME 9.2 fl (7.0-11.0); RBC 4.01 10^6/uL (3.5-6.1); RED CELL DISTRIBUTION WIDTH 12.9 % (11.5-14.5); WHITE BLOOD COUNT 7.8 10^3/ul (4.5-11.0)
[2017-11-15 07:12] LABS: ALB/GLOB RATIO 1.2 (1.1-1.8); ALT/SGPT 26 U/L (7-56); AST/SGOT 30 U/L (14-36); BLOOD UREA NITROGEN 13 mg/dL (7-21); CALCIUM 8.2 mg/dL (8.4-10.5); GFR AFRICAN-AMERICAN 56; GFR NON-AFRICAN AMERICAN 46
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
[2017-11-15] MEDS: Insulin Lispro 1 UNITS/0.01 ML SC SCH ×2 (08:00→11:21)
[2017-11-15 08:14] VITALS: BP 122/74; PULSE 69; TEMP 97.6; O2SAT 98
[2017-11-15] MEDS ORDERED: Potassium Chloride 20 mEq ER Tab PO ONE (08:29)
--- NOTE | 2017-11-15 08:42 | PN ---
DATE: 11/14/2017 ENDO FOLLOWUP NOTE LOCATION: In room 564. SUBJECTIVE: This is a 56-year-old female with recent uncontrolled type 1 insulin-dependent diabetes, presenting here with acute exacerbation of diabetic gastroparesis with intractable nausea, dyspepsia and vomiting with diffuse upper abdominal pain and is now being followed closely for metabolic management. She is still n.p.o. at this time and has been given only basal insulin with the low-dose correction scale of Humalog insulin as given. Her glucose values are fluctuating, but improved and the latest glucose levels have ranged from 197-245 mg/dL. Her latest chemistry showed a BUN of 11, sodium 140, potassium 3.2, chloride 95, CO2 of 34, glucose 197 and creatinine 0.6. ASSESSMENT: This is a 56-year-old female with uncontrolled and decompensated type 1 insulin-dependent diabetes, presenting here with acute onset of diffuse abdominal pain with intractable vomiting episodes from underlying diabetic gastroparesis and is now being followed closely for metabolic management. She also has diabetic microvascular complications of retinopathy and polyneuropathy with diabetic macrovascular complications of cerebrovascular disease, coronary artery disease and peripheral arterial disease and vasculopathy. PLAN OF MANAGEMENT: As discussed with the patient and the staff, we will continue her basal insulin for now so long as she is n.p.o. with Levemir given as 12 units every 12 hours as ordered. We will continue the low-dose correction scale using Humalog insulin as given. As her oral intake is advanced and tolerated, then we will switch her over to a more physiologic basal and bolus insulin drug combination as indicated. We will obtain serial chemistries and supplement accordingly as needed. We will continue also the IV hydration as given. We will follow. Tita Coe MD
[2017-11-15] MEDS: Insulin Detemir 100 units/ml Vial (Levemir) SC SCH (10:02)
--- NOTE | 2017-11-15 14:14 | PN ---
DATE: 11/15/2017 ENDO FOLLOWUP NOTE LOCATION: In room 564. SUBJECTIVE: This is a 56-year-old female with recent uncontrolled type 1 insulin-requiring diabetes, now being followed closely for metabolic management. She also has severe diabetic gastroparesis and presented here with exacerbation of the same and diffuse abdominal pain with intractable vomiting episodes as noted thereof. Her oral intake has been variable with suboptimal meal portions as noted. Her latest glucose levels today have been in the low side of normal ranging from 72-83 and 154 mg/dL. Her latest chemistry showed a BUN of 13, sodium 138, potassium 3.5, chloride 94, CO2 of 39, glucose 76 and creatinine 1.2. ASSESSMENT: This is a 56-year-old female with uncontrolled and decompensated type 1 insulin-dependent diabetes, presenting here with acute exacerbation of diabetic gastroparesis with diffuse abdominal pain and intractable vomiting episodes and was initially n.p.o. and today has been switched over to a diabetic carbohydrate-consistent diet as noted and given. She also has diabetic microvascular complications of retinopathy, polyneuropathy and early nephropathy with macrovascular complications of coronary artery disease, cerebrovascular disease and peripheral arterial disease and vasculopathy. PLAN OF MANAGEMENT: As discussed with the patient and the staff, we will modify her current basal insulin and lower the Levemir to 8 units subcu at bedtime daily to start tonight. We will modify the coverage scale to obviate hypoglycemia and detailed orders have been given. We will discontinue the morning basal insulin as ordered. We will obtain serial chemistries and supplement accordingly as needed. We will also continue the IV hydration as given to replenish the lost fluid and electrolytes as noted. We will follow. Tita Coe MD
--- NOTE | 2017-11-15 16:15 | PN ---
DATE: 11/15/2017 SUBJECTIVE: She is going to be discharged home today. I discussed this with GI. She is doing much better. She ate her breakfast and the pain is minimal and discharged after lunch. She is on aspirin, Ativan, Bentyl, Catapres, Levemir, Neurontin, Protonix, Prozac, Reglan, she will be on tramadol and Zofran. PHYSICAL EXAMINATION: VITAL SIGNS: She has a 97.6 temperature, 69 pulse, 122/74 blood pressure, 20 respiratory rate, 98% O2 sat on room air. HEENT: Head is atraumatic, normocephalic. HEART: Regular rate. LUNGS: Decreased breath sounds, but clear. ABDOMEN: Soft. Positive bowel sounds. Nontender. EXTREMITIES: No edema. LABORATORY DATA: She has a 7.8 white count, 11.4 hemoglobin, 32.9 hematocrit with 248 platelets. Sodium 138, potassium 3.5, we will give her potassium before she leaves, BUN 30, creatinine 1.2, GFR is 46, sugar is 76, calcium is 8.2, AST is 30, ALT is 26, alkaline phosphatase is 55. I am going to discharge her after lunch today, go over the same medications. Discussed with GI. Give her potassium till today, will see her in a house call. Josafat Dent DO
[2017-11-15] MEDS ORDERED: Insulin Detemir 100 units/ml Vial (Levemir) SC SCH (22:00)
== END 2017-11-15 12:57 | disposition home or self-care (01) ==
LOC: ED 13:13 → ERH 17:00 → 5RNO 17:58
PROVIDERS: ADMIT Family Medicine; ATTEND Family Medicine
DX: E10.43 Type 1 diabetes mellitus with diabetic autonomic (poly)neuropathy (principal); E10.319 Type 1 diabetes mellitus with unspecified diabetic retinopathy without macular edema; E10.21 Type 1 diabetes mellitus with diabetic nephropathy; E10.42 Type 1 diabetes mellitus with diabetic polyneuropathy; E10.51 Type 1 diabetes mellitus with diabetic peripheral angiopathy without gangrene; E10.65 Type 1 diabetes mellitus with hyperglycemia; D72.829 Elevated white blood cell count, unspecified; E78.00 Pure hypercholesterolemia, unspecified; E78.5 Hyperlipidemia, unspecified; E87.6 Hypokalemia; F32.9 Major depressive disorder, single episode, unspecified; F41.9 Anxiety disorder, unspecified; K31.84 Gastroparesis; I10 Essential (primary) hypertension; I25.10 Atherosclerotic heart disease of native coronary artery without angina pectoris; J44.9 Chronic obstructive pulmonary disease, unspecified; K21.9 Gastro-esophageal reflux disease without esophagitis; K58.9 Irritable bowel syndrome, unspecified; Z79.4 Long term (current) use of insulin; Z79.82 Long term (current) use of aspirin; Z79.899 Other long term (current) drug therapy; Z80.0 Family history of malignant neoplasm of digestive organs; Z85.028 Personal history of other malignant neoplasm of stomach; Z86.14 Personal history of Methicillin resistant Staphylococcus aureus infection; Z86.73 Personal history of transient ischemic attack (TIA), and cerebral infarction without residual deficits; Z90.49 Acquired absence of other specified parts of digestive tract; Z90.710 Acquired absence of both cervix and uterus
CPT/HCPCS: 36415; 74018; 80053; 82024; 82533; 82803; 82948; 83036; 83735; 84100; 84443; 85025; 85027; 93005; 96361; 96365; 96375; 96376; 99283; C9113; G0378; J1170; J1885; J2405; J2765; J3480; J7030

== ENCOUNTER 2017-11-21 14:03 | Inpatient (IN) | payer BC, MEDICARE ==
[2017-11-21] MEDS ORDERED: Sodium Chloride 0.9% 500 ML IV STA (14:26)
--- NOTE | 2017-11-21 14:45 | ED PDOC ---
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 Pt's PMD is Dr Josafat Dent who did a house visit on and aware of vomiting issue. Pt was last admitted for emesis at the beginning of October. Pt reports ability to eat very small amounts of food and is passing gas and has diarrhea. Pt also c/o right side chest pain x 4 days. She reports taking prescribed medications including insulin. Also complains of back pain, intrascapular pain, general abdominal pain, but denies fever, shortness of breath, or any other complaint. [place] [facility] [place] 11/21/17 14:47 (Luma Zhang) Past Medical History - Provider Review Nursing Documentation Reviewed: Yes - Travel History Have you recently traveled outside [place] w/in the past 3 mons?: No - Past History Past History: No Previous - Infectious Disease Hx of Infectious Diseases: None - Tetanus Immunization Tetanus Immunization: Unknown - Cardiac Hx Cardiac Disorders: Yes (orthostatic hypotension) Hx Hypertension: Yes Hx Peripheral Vascular Disease: Yes - Pulmonary Hx Respiratory Disorders: Yes Hx Chronic Obstructive Pulmonary Disease (COPD): Yes - Neurological Hx Neurological Disorder: Yes HX Cerebrovascular Accident: Yes Hx Dizziness: Yes Hx Syncope: Yes Other/Comment: diabetic neuropathy - HEENT Hx HEENT Disorder: Yes Hx Cataracts: Yes (bilateral sx) - Renal Hx Renal Disorder: No - Endocrine/Metabolic Hx Endocrine Disorders: Yes (hyperglycemia) Hx Diabetes Mellitus Type 1: Yes - Hematological/Oncological Hx Blood Disorders: Yes Hx Anemia: Yes Hx Blood Transfusions: Yes - Integumentary Hx Dermatological Disorder: Yes Other/Comment: abcess - Musculoskeletal/Rheumatological Hx Musculoskeletal Disorders: Yes Hx Falls: Yes Hx Unsteady Gait: Yes Other/Comment: AMPUTEE - Gastrointestinal Hx Gastrointestinal Disorders: Yes Hx Gastroesophageal Reflux: Yes Hx Irritable Bowel: Yes Other/Comment: Diabetic Gastroparesis - Genitourinary/Gynecological Hx Genitourinary Disorders: No - Psychiatric Hx Psychophysiologic Disorder: Yes Hx Anxiety: Yes Hx Depression: Yes Hx Emotional Abuse: Yes Hx Substance Use: No - Surgical History Hx Amputation: Yes (r metarsal) Hx Cholecystectomy: Yes Hx Hysterectomy: Yes Other/Comment: Amputation of half the Rt. foot - Anesthesia Hx Anesthesia Reactions: No Hx Malignant Hyperthermia: No - Suicidal Assessment Feels Threatened In Home Enviroment: No <Luma Zhang - Last Filed: 11/21/17 21:17> Family/Social History - Physician Review Nursing Documentation Reviewed: Yes Family/Social History: Unknown Family HX Smoking Status: Never Smoked Hx Alcohol Use: No Hx Substance Use: No Hx Substance Use Treatment: No <Luma Zhang - Last Filed: 11/21/17 21:17> Allergies/Home Meds <Luma Zhang - Last Filed: 11/21/17 21:17> <Cheko Winslow - Last Filed: 11/22/17 10:21> Allergies/Adverse Reactions: Allergies No Known Allergies Allergy (Verified 11/21/17 14:11) Home Medications: Home Meds Medication Instructions Recorded Confirmed Aspirin [Aspirin Chewable] 81 mg PO DAILY 07/31/17 11/13/17 Dicyclomine [Bentyl] 10 mg PO TID 07/31/17 11/13/17 Fluoxetine HCl [Prozac] 40 mg PO DAILY 07/31/17 11/13/17 Gabapentin [Neurontin] 300 mg PO TID 07/31/17 11/13/17 LORazepam [Ativan] 1 mg PO BID PRN 07/31/17 11/13/17 Metoclopramide [Reglan] 5 mg PO QID 07/31/17 11/13/17 Omeprazole 40 mg PO DAILY 07/31/17 11/13/17 Sucralfate [Carafate Tab] 1 gm PO QID 07/31/17 11/13/17 amLODIPine [Norvasc] 2.5 mg PO DAILY 07/31/17 11/13/17 Insulin Detemir [Levemir] 34 units SC HS 08/24/17 11/13/17 Insulin Lispro [humALOG] 0 units SC AC 11/13/17 11/13/17 traMADol [Ultram] 50 mg PO QID 11/13/17 11/13/17 Review of Systems - Review of Systems Systems not reviewed;Unavailable: Acuity of Condition Constitutional: Normal, Fatigue. absent: Weight Change Eyes: Normal. absent: Vision Changes ENT: Normal Respiratory: Normal. absent: SOB, Cough Cardiovascular: Normal, Chest Pain. absent: Palpitations Gastrointestinal: Normal, Abdominal Pain, Diarrhea, Nausea, Vomiting, Appetite Changes, Food Intolerance. absent: Stool Changes, Constipation, Hematochezia, Hematemesis Genitourinary Female: Normal. absent: Dysuria Musculoskeletal: Normal, Arthralgias Skin: Normal Neurological: Normal, Headache Endocrine: Normal. absent: Diaphoresis Hemo/Lymphatic: Normal Psychiatric: Normal, Anxiety, Depression <Luma Zhang L - Last Filed: 11/21/17 21:17> Physical Exam Vital Signs Reviewed: Yes Temperature: Afebrile Blood Pressure: Hypertensive Pulse: Tachycardic Respiratory Rate: Normal Appearance: Positive for: Well-Appearing, Non-Toxic, Comfortable Pain Distress: Severe Mental Status: Positive for: Alert and Oriented X 3 - Systems Exam Head: Present: Atraumatic, Normocephalic Pupils: Present: PERRL Extroacular Muscles: Present: EOMI Conjunctiva: Present: Normal Mouth: Present: Moist Mucous Membranes, Dry. No: Drooling, Trismus Neck: Present: Normal Range of Motion Respiratory/Chest: Present: Clear to Auscultation, Good Air Exchange. No: Respiratory Distress, Accessory Muscle Use, Wheezes, Decreased Breath Sounds Cardiovascular: Present: Regular Rate and Rhythm, Normal S1, S2. No: Murmurs Abdomen: Present: Normal Bowel Sounds. No: Tenderness, Distention, Peritoneal Signs Back: Present: Normal Inspection Upper Extremity: Present: Normal Inspection. No: Cyanosis, Edema Lower Extremity: Present: Normal Inspection. No: Edema Neurological: Present: GCS=15, CN II-XII Intact, Speech Normal Skin: Present: Warm, Dry, Normal Color. 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 Plan Workup for GI Fluids imaging pain management assess and dispo Prgress note 11/21/17 16:53 CXR unremarkable for active dz EK11/21/17 17:00 substernal chest pain continues Ativan given Dialaudid 1mg STAT 11/21/17 18:[address] w/o contrast: Bilateral nephrolithiasis. Perinephric stranding is present. Ascending urinary tract infection should be considered. Significant distention of the urinary bladder. Subsequent prominence of the renal pelvis bilaterally but no evidence of hydronephrosis. Post surgical changes in the abdomen status post right hemicolectomy. There is a mild umbilical hernia without complication. Slight bowel wall thickening is questioned in the anorectal region. It is unknown if the patient has a history of inflammatory bowel disease. Nonspecific colitis should be considered. Case discussed with Dr Dent for admission of intractable pain and vomiting; will be admitted to Telemetry given the abnormal EKG 11/21/17 18:49 Pt has not voided since receiving 2.5L NS; will attempt to void in chahal Pt successfully voided into bedpan 250cc Bridge orders placed for pt; bed located 11/21/17 21:17 (VicenteLuma Vergara) 11/22/17 10:18 Patient seen and evaluated with PA. Family at bedside. Prior admissions reviewed. Patient reports abdominal pain, vomiting, pain radiating to chest. She states pain is typical of past episodes and chest pain is typical of when she has had vomiting. Patient however is noted to have st t wave change in anterolateral leads that appear more prominent when compared to previous EKGs. She denies shortness of breath or exertional chest pain. Cannot exclude possible component of ischemia although at this time chest pain appears related to eating and nausea. I have reviewed recent cardiology consultations with DR. Farmer. Daughter updated with treatment plan, and I have reviewed EKG changes and currents current symptoms and ct results with DR. Dent. Patient to be admitted to telemetry bed for monitoring and serial exams. Initial troponin unremarkable. (Cheko Winslow) - Lab Interpretations Lab Results: 11/21/17 15:30 11/21/17 15:30 Lab Results 11/21/17 15:30: pO2 62 H, VBG pH 7.40, VBG pCO2 59.0, VBG HCO3 36.5 H, VBG Total CO2 38.3 H, VBG O2 Sat (Calc) 93.9 H, VBG Base Excess 9.5 H, VBG Potassium 2.9 L, Sodium 136.0, Chloride 94.0 L, Glucose 335 H, Lactate 1.3, FiO2 21.0, Venous Blood Potassium 2.9 L 11/21/17 15:30: Sodium 140, Chloride 89 L, Potassium 3.1 L, Carbon Dioxide 36 H , Anion Gap 18, BUN 13, Creatinine 0.7, Est GFR ( Amer) > 60, Est GFR ( Non-Af Amer) > 60, Random Glucose 310 H* D, Calcium 9.2, Total Bilirubin 0.4, AST 23, ALT 28, Alkaline Phosphatase 85, Lactate Dehydrogenase 682, Total Creatine Kinase 57, Troponin I 0.02 D, Total Protein 6.5, Albumin 3.9, Globulin 2.6, Albumin/Globulin Ratio 1.5 11/21/17 15:30: WBC 8.7, RBC 4.73, Hgb 13.4 D, Hct 37.3, MCV 78.9 L D, MCH 28.3 , MCHC 35.9, RDW 12.6, Plt Count 266, MPV 9.3, Gran % 84.7 H, Lymph % (Auto) 11.1 L, [place] % (Auto) 3.4, Eos % (Auto) 0.6 L, Baso % (Auto) 0.2, Gran # 7.33 H , Lymph # (Auto) 1.0 L, [place] # (Auto) 0.3, Eos # (Auto) 0.1, Baso # (Auto) 0.02 - RAD Interpretation Narrative RAD Interpretations (Text): 11/21/17 16:52 HISTORY: chest pain COMPARISON: Chest 10/02/2017 FINDINGS: LUNGS: No active pulmonary disease. PLEURA: No significant pleural effusion identified, no pneumothorax apparent. CARDIOVASCULAR: Normal. OSSEOUS STRUCTURES: No significant abnormalities. VISUALIZED UPPER ABDOMEN: Normal. OTHER FINDINGS: None. IMPRESSION: No active disease. 11/21/17 18:32 EXAM: CT Abdomen and Pelvis Without Intravenous Contrast EXAM DATE/TIME: 11/21/2017 2:45 PM CLINICAL HISTORY: 56 years old, female; Pain; Abdominal pain; Prior surgery; <1 month; Patient HX : Severe diffuse abdomnal pain S/P colectomy TECHNIQUE: Axial images of the abdomen and pelvis without intravenous contrast. Sagittal and coronal reformatted images are provided. All CT scans at this facility use at least one of these dose optimization techniques: automated exposure control; mA and/or kV adjustment per patient size (includes targeted exams where dose is matched to clinical indication); or iterative reconstruction. COMPARISON: CT - ABD PELVIS W/O PO OR IV CONT 2017-10-18 00:16 COMPARISON MORE: CT - ABD PELVIS PO CONTRAST ONLY 02/08/2017 1:27:04 PM FINDINGS: Lower thorax: Lung bases demonstrate no consolidative lung disease. Mild bibasilar atelectatic opacities. Focal 5 mm subpleural pulmonary nodule in the left lower lobe, unchanged from prior study. There is no pleural effusion. ABDOMEN: Liver: Normal. No mass. Gallbladder and bile ducts: The gallbladder is surgically absent with clips in the gallbladder fossa. Pancreas: Normal. No ductal dilation. Spleen: Normal. No splenomegaly. Adrenals: Normal. No mass. Kidneys and ureters: A few tiny stones in the right and left kidney, measuring up to 3 mm. Both kidneys demonstrate some mild swelling and perinephric stranding without hydronephrosis Stomach and bowel: Broad-based umbilical hernia. Focal loop of colon extends into the defect. There is no evidence of strangulation or bowel obstruction. Multiple surgical clips in the right pelvis. Probable previous right hemicolectomy. Stomach appears normal. There is no small bowel dilatation or air-fluid levels. No small bowel wall thickening. Question of some mild wall thickening in the rectal region. Appendix: Surgically absent. PELVIS: Bladder: Urinary bladder is significantly distended to the level of the umbilicus. No bladder stones are identified. No definite wall thickening. Reproductive: Prior hysterectomy. No pelvic masses. ABDOMEN and PELVIS: Intraperitoneal space: No free air. No significant fluid collection. Bones/joints: No acute fracture. No dislocation. Soft tissues: Unremarkable. Vasculature: Minimal aortic atherosclerosis however there is extensive branch vessel atherosclerotic calcifications. Lymph nodes: Normal. No enlarged lymph nodes. IMPRESSION: Bilateral nephrolithiasis. Perinephric stranding is present. Ascending urinary tract infection should be considered. Significant distention of the urinary bladder. Subsequent prominence of the renal pelvis bilaterally but no evidence of hydronephrosis. Post surgical changes in the abdomen status post right hemicolectomy. There is a mild umbilical hernia without complication. Slight bowel wall thickening is questioned in the anorectal region. It is unknown if the patient has a history of inflammatory bowel disease. Nonspecific colitis should be considered. (Luma Zhang) Radiology Orders: 11/21/17 14:43 CHEST PORTABLE [RAD] Stat 11/21/17 14:45 ABD & PELVIS W/O PO OR IV CONT [CT] Stat - Medication Orders Current Medication Orders: Amlodipine Besylate (Norvasc) 5 mg PO DAILY [facility] Last Admin: 11/22/17 09:49 Dose: 5 mg MAR Pulse and Blood Pressure Document 11/22/17 09:49 (Rec: 11/22/17 09:49 [id number]) Pulse Pulse Rate (60-90 beats/min) 68 Blood Pressure Blood Pressure (100/60-150/90 mm Hg) 182/95 Aspirin (Aspirin Chewable) 81 mg PO DAILY [facility] Last Admin: 11/22/17 09:49 Dose: 81 mg Clonidine HCl (Catapres-Tts2 0.2 Mg/24 Hr) 1 patch TD Q7D@1000 [facility] Fluoxetine HCl (Prozac) 40 mg PO DAILY [facility] Last Admin: 11/22/17 09:49 Dose: 40 mg Gabapentin (Neurontin) 300 mg PO TID [facility] PRN Reason: Protocol Last Admin: 11/22/17 09:49 Dose: 300 mg Behavioural Document 11/22/17 09:49 CD (Rec: 11/22/17 09:49 CD [id number]) Maintenance Maintenance Dose Yes Sodium Chloride (Sodium Chloride 0.9%) 1,000 mls @ 100 mls/hr IV .Q10H [facility] Last Admin: 11/22/17 09:50 Dose: 100 mls/hr eMAR Start Stop Document 11/22/17 09:50 CD (Rec: 11/22/17 09:50 CD [id number]) Intravenous Solution Start Date 11/22/17 Start Time 09:50 Insulin Human Regular (Humulin R High) 0 units SC ACHS PATTI PRN Reason: Protocol Lorazepam (Ativan) 1 mg PO BID PRN; Protocol PRN Reason: Anxiety Morphine Sulfate (Morphine) 1 mg IVP Q3H PRN PRN Reason: Pain, moderate (4-7) Ondansetron HCl (Zofran Inj) 4 mg IVP Q6H PRN PRN Reason: Nausea/Vomiting Last Admin: 11/22/17 06:32 Dose: 4 mg IVP Administration Document 11/22/17 06:32 GC (Rec: 11/22/17 06:32 GC [id number]) Charges for Administration # of IVP Administrations 1 Pantoprazole Sodium (Protonix Inj) 40 mg IVP DAILY [facility] Last Admin: 11/22/17 09:49 Dose: 40 mg IVP Administration Document 11/22/17 09:49 CD (Rec: 11/22/17 09:49 CD [id number]) Charges for Administration # of IVP Administrations 1 Sucralfate (Carafate Tab) 1 gm PO QID [facility] Last Admin: 11/22/17 09:49 Dose: 1 gm Discontinued Medications Amlodipine Besylate (Norvasc) 5 mg PO DAILY [facility] Clonidine HCl (Catapres) 0.2 mg PO STAT STA Stop: 11/21/17 23:22 Last Admin: 11/21/17 23:38 Dose: 0.2 mg MAR Pulse and Blood Pressure Document 11/21/17 23:38 LVC (Rec: 11/21/17 23:39 LVC [id number]) Pulse Pulse Rate (60-90 beats/min) 92 Blood Pressure Blood Pressure (100/60-150/90 mm Hg) 197/112 Clonidine HCl (Catapres) 0.1 mg PO STAT STA Stop: 11/22/17 06:00 Last Admin: 11/22/17 06:08 Dose: 0.1 mg MAR Pulse and Blood Pressure Document 11/22/17 06:08 LVC (Rec: 11/22/17 06:09 LVC [id number]) Pulse Pulse Rate (60-90 beats/min) 68 Blood Pressure Blood Pressure (100/60-150/90 mm Hg) 182/95 Famotidine (Pepcid) 20 mg IVP STAT STA Stop: 11/21/17 14:45 Last Admin: 11/21/17 15:20 Dose: 20 mg IVP Administration Document 11/21/17 15:20 OSIEL (Rec: 11/21/17 15:20 OSIEL [place] [id number]) Charges for Administration # of IVP Administrations 1 Hydromorphone HCl (Dilaudid) 1 mg IVP STAT STA Stop: 11/21/17 17:04 Last Admin: 11/21/17 17:13 Dose: 1 mg MAR Pain Assessment Document 11/21/17 17:13 OSIEL (Rec: 11/21/17 17:15 OSIEL [place] [id number]) Pain Reassessment Is this a pain reassessment? Yes Presence of Pain Presence of Pain Yes Pain Scale Used Pain Scale Used Numeric Location Pain Location Body Site Abdomen Description Description Sharp Intensity of Pain at present 10 IVP Administration Document 11/21/17 17:13 OSIEL (Rec: 11/21/17 17:15 OSIEL [place] [id number]) Charges for Administration # of IVP Administrations 1 Sodium Chloride (Sodium Chloride 0.9%) 500 mls @ 999 mls/hr IV .Q31M STA Stop: 11/21/17 14:56 Last Admin: 11/21/17 15:21 Dose: 999 mls/hr eMAR Start Stop Document 11/21/17 15:21 OSIEL (Rec: 11/21/17 15:21 OSIEL [place] [id number]) Intravenous Solution Start Date 11/21/17 Start Time 15:21 End Date 11/21/17 End time 15:51 Total Infusion Time 30 Potassium Chloride (Potassium Chloride 10 Meq/100 Ml) 10 meq in 100 mls @ 50 mls/hr IVPB ONCE ONE Stop: 11/21/17 18:20 Last Admin: 11/21/17 17:01 Dose: 50 mls/hr eMAR Start Stop Document 11/21/17 17:01 OSIEL (Rec: 11/21/17 17:02 OSIEL [id number]) Intravenous Solution Start Date 11/21/17 Start Time 17:01 End Date 11/21/17 End time 19:01 Total Infusion Time 120 Lorazepam (Ativan) 1 mg IVP ONCE ONE Stop: 11/21/17 15:37 Last Admin: 11/21/17 15:53 Dose: 1 mg IVP Administration Document 11/21/17 15:53 OSIEL (Rec: 11/21/17 15:54 OSIEL [id number]) Charges for Administration # of IVP Administrations 1 Non-Formulary Medication (Fluoxetine Hcl [Prozac]) 40 mg PO DAILY PATTI Tramadol HCl (Ultram) 50 mg PO STAT STA Stop: 11/21/17 23:23 Last Admin: 11/21/17 23:39 Dose: 50 mg [facility] Pain Assessment Document 11/21/17 23:[address] [facility] (Rec: 11/21/17 23:40 [id number] Pain Reassessment Is this a pain reassessment? No Sleep Is patient sleeping during reassessment? No Presence of Pain Presence of Pain Yes Pain Scale Used Pain Scale Used Numeric Location Upper or Lower Lower Pain Location Body Site Abdomen Description Description Constant Intensity of Pain at present 5 Pain Behavior Irritability Facial Grimacing Aggravating Factors Contant Alleviating Factors/Management Medication Techniques Alleviating Factors Position Change Re-Assess: [facility] Pain Assessment Document 11/22/17 00:[address] [facility] (Rec: 11/22/17 05:25 [id number] Pain Reassessment Is this a pain reassessment? Yes Sleep Is patient sleeping during reassessment? Yes Tramadol HCl (Ultram) 50 mg PO STAT STA Stop: 11/22/17 06:53 Last Admin: 11/22/17 07:04 Dose: 50 mg [facility] Pain Assessment Document 11/22/17 07:[address] [facility] (Rec: 11/22/17 07:05 [id number] Pain Reassessment Is this a pain reassessment? No Sleep Is patient sleeping during reassessment? No Presence of Pain Presence of Pain Yes Pain Scale Used Pain Scale Used Numeric Location Left, Right or Bilateral Right Pain Location Body Site Abdomen Description Description Constant Intensity of Pain at present 9 Pain Behavior Moaning Crying Irritability Alleviating Factors/Management Medication Techniques Alleviating Factors Medication Re-Assess: [facility] Pain Assessment Document 11/22/17 08:[address] [facility] (Rec: 11/22/17 08:[address] [facility] [id number]) Pain Reassessment Is this a pain reassessment? Yes Sleep Is patient sleeping during reassessment? No Presence of Pain Presence of Pain No Pain Scale Used Pain Scale Used Numeric Location Upper or Lower Lower Pain Location Body Site Abdomen Description Description Constant Intensity of Pain at present 5 Pain Behavior Irritability Alleviating Factors/Management Medication Techniques Alleviating Factors Medication Pain not relieved and LIP/MD was No notified Disposition/Present on Arrival - Present on Arrival Any Indicators Present on Arrival: Yes History of DVT/PE: No History of Uncontrolled Diabetes: Yes Urinary Catheter: No History of Decub. Ulcer: No History Surgical Site Infection Following: None - Disposition Have Diagnosis and Disposition been Completed?: Yes Disposition Time: 05:45 Patient Plan: Admission <Luma Zhang - Last Filed: 11/21/17 21:17> - Disposition Disposition Time: 17:45 Patient Plan: Telemetry <Cheko Winslow - Last Filed: 11/22/17 10:21> - Disposition Diagnosis: Intractable abdominal pain, Uncontrolled diabetes mellitus, Diabetic gastroparesis, Hypokalemia, Abnormal EKG, Chest pain, Anxiety Disposition: HOSPITALIZED Patient Problems: Current Active Problems Problem Status Onset Diabetic gastroparesis Acute Intractable abdominal pain Acute Uncontrolled diabetes mellitus Acute Condition: STABLE
[2017-11-21 15:48] LABS: VENOUS BLOOD GAS BASE EXCESS 9.5 mmol/L (0.0-2.0); VENOUS BLOOD GAS PO2 62 mm/Hg (30-55)
[2017-11-21 15:49] LABS: BASO # 0.02 K/mm3 (0.0-2.0); BASO % 0.2 % (0.0-3.0); EOS # 0.1 (0.0-0.7); EOS % 0.6 % (1.5-5.0); GRAN # 7.33 (1.4-6.5); GRAN % 84.7 % (50.0-68.0); HEMOGLOBIN 13.4 g/dL (12.0-16.0); LYMPH % 11.1 % (22.0-35.0); MEAN CELL VOLUME 78.9 fl (80.0-105.0); MEAN CORPUSCULAR HEMOGLOBIN 28.3 pg (25.0-35.0); MEAN CORPUSCULAR HGB CONC 35.9 g/dl (31.0-37.0); MEAN PLATELET VOLUME 9.3 fl (7.0-11.0); MONO # 0.3 (0.1-0.6); MONO % 3.4 % (1.0-6.0); RBC 4.73 10^6/uL (3.5-6.1); RED CELL DISTRIBUTION WIDTH 12.6 % (11.5-14.5); WHITE BLOOD COUNT 8.7 10^3/ul (4.5-11.0)
[2017-11-21] MEDS: Sodium Chloride 0.9% 1,000 ML IV SCH (15:50)
--- NOTE | 2017-11-21 15:54 | RAD ---
HISTORY: chest pain COMPARISON: Chest 10/02/2017 FINDINGS: LUNGS: No active pulmonary disease. PLEURA: No significant pleural effusion identified, no pneumothorax apparent. CARDIOVASCULAR: Normal. OSSEOUS STRUCTURES: No significant abnormalities. VISUALIZED UPPER ABDOMEN: Normal. OTHER FINDINGS: None. IMPRESSION: No active disease.
[2017-11-21 16:10] LABS: ALB/GLOB RATIO 1.5 (1.1-1.8); ALBUMIN 3.9 g/dL (3.0-4.8); ALT/SGPT 28 U/L (7-56); AST/SGOT 23 U/L (14-36); BLOOD UREA NITROGEN 13 mg/dL (7-21); CALCIUM 9.2 mg/dL (8.4-10.5); GFR AFRICAN-AMERICAN > 60; GFR NON-AFRICAN AMERICAN > 60
[2017-11-21 16:19] LABS: TROPONIN I 0.02 ng/mL
[2017-11-21] MEDS ORDERED: HYDROmorphone 1 mg/ml ISec IVP STA (17:00)
[2017-11-21] MEDS ORDERED: HYDROmorphone 0.5 mg/0.5 ml ISec IVP STA (17:03)
[2017-11-21 19:14] LABS: URINE BILIRUBIN NEGATIVE (NEGATIVE); URINE BLOOD SMALL (NEGATIVE); URINE COLOR YELLOW (YELLOW); URINE GLUCOSE (UA) >=1000 mg/dL (NEGATIVE); URINE LEUKOCYTE ESTERASE NEGATIVE Leu/uL (NEGATIVE); URINE PROTEIN >=300 mg/dL (<30 mg/dL); URINE UROBILINOGEN 0.2 E.U./dL (<1 E.U./dL)
[2017-11-21 19:15] LABS: URINE APPEARANCE SL CLOUDY (CLEAR)
[2017-11-21 19:46] LABS: URINE BACTERIA FEW (NEG)
[2017-11-21 22:03] VITALS: BMI 19.3
--- NOTE | 2017-11-21 23:42 | CP.PCM.PN ---
Subjective - Date & Time of Evaluation Date of Evaluation: 11/21/17 Time of Evaluation: 23:08 - Subjective Subjective: Nurse calls and tells that her blood pressure in left arm is 197/112. Blood pressure in right arm is 197/101. Receives norvasc 2.5 mg PO daily at home and has had her today's dose at home. Received dilaudid 1 mg IV and Ativan in ER about 4-5 PM for pain. Has been here with abdominal pain. Medical record was reviewed. This 56 year old woman was admitted with intractable abdominal pain, uncontrolled DM, gastroparesis. Has PMH of insulin dependent DM, HTN, gastroparesis, retinopathy, vasculopathy , anxiety, depression, TIA, right hemicolectomy, cholecystectomy, appendectomy, hystrectomy, herniorrhaphy, . Objective - Vital Signs/Intake and Output Vital Signs (last 24 hours): Temp Pulse Resp BP Pulse Ox 98.1 F 78 16 138/79 97 11/21/17 14:12 11/21/17 21:56 11/21/17 21:56 11/21/17 21:56 11/21/17 20:56 - Medications Medications: Current Medications Sodium Chloride (Sodium Chloride 0.9%) 1,000 mls @ 100 mls/hr IV .Q10H PATTI Last Admin: 11/21/17 15:50 Dose: 100 mls/hr Ondansetron HCl (Zofran Inj) 4 mg IVP Q6H PRN PRN Reason: Nausea/Vomiting Last Admin: 11/21/17 22:15 Dose: 4 mg - Constitutional Appears: Well, No Acute Distress - Head Exam Head Exam: ATRAUMATIC, NORMAL INSPECTION, NORMOCEPHALIC - Eye Exam Eye Exam: Normal appearance - ENT Exam ENT Exam: Normal External Ear Exam - Neck Exam Neck Exam: Normal Inspection - Respiratory Exam Respiratory Exam: NORMAL BREATHING PATTERN - Cardiovascular Exam Cardiovascular Exam: absent: JVD - GI/Abdominal Exam GI & Abdominal Exam: absent: Distended - Rectal Exam Rectal Exam: Deferred - Exam Additional comments: Deferred. - Extremities Exam Extremities Exam: Normal Inspection - Back Exam Back Exam: NORMAL INSPECTION - Neurological Exam Neurological Exam: Alert, Awake, Oriented x3 - Psychiatric Exam Psychiatric exam: Normal Affect, Normal Mood - Skin Skin Exam: Normal Color Assessment and Plan - Assessment and Plan (Free Text) Assessment: Elevated blood pressure reading. Abdominal pain. Gastroparesis. IDDM. HTN. Anxiety. Depression. Plan: Clonidine 0.2 mg PO stat. Ultram 50 mg PO stat. BP was 142/78 at 1 AM. Continue present management.
[2017-11-22] MEDS ORDERED: Morphine 2 mg/ml ISec IVP PRN (07:49)
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
--- NOTE | 2017-11-22 09:30 | CARD ---
APPROVED REPORT EKG Measurement Heart [id number] <Conclusion> Normal sinus rhythm with sinus arrhythmia ST & T wave abnormality, consider inferior ischemia ST & T wave abnormality, consider anterolateral ischemia Prolonged QT Abnormal ECG
[2017-11-22] MEDS: Sodium Chloride 0.9% 1,000 ML IV SCH ×3 (09:50→20:18)
[2017-11-22] MEDS ORDERED: Non Formulary Medication (Fluoxetine Hcl [Prozac] 40 MG) PO SCH (10:00)
--- NOTE | 2017-11-22 10:35 | CT ---
PROCEDURE: CT Abdomen and Pelvis without intravenous contrast HISTORY: severe diffuse abdomnal pain s/p colectomy COMPARISON: None. TECHNIQUE: Technique. Contrast dose: Radiation dose: Total exam DLP = mGy-cm. This CT exam was performed using one or more of the following dose reduction techniques: Automated exposure control, adjustment of the mA and/or kV according to patient size, and/or use of iterative reconstruction technique. FINDINGS: LOWER THORAX: Unremarkable. LIVER: Unremarkable. No gross lesion or ductal dilatation. GALLBLADDER AND BILE DUCTS: Cholecystectomy. PANCREAS: Unremarkable. No gross lesion or ductal dilatation. SPLEEN: Unremarkable. ADRENALS: Unremarkable. No mass. KIDNEYS AND URETERS: Bilateral nephrolithiasis and perinephric stranding. Ascending urinary tract infection is not excluded. VASCULATURE: Unremarkable. No aortic aneurysm. BOWEL: Postoperative changes status post right hemicolectomy with mild umbilical hernia. APPENDIX: Unremarkable. Normal appendix. PERITONEUM: Unremarkable. No free fluid. No free air. LYMPH NODES: Unremarkable. No enlarged lymph nodes. BLADDER: Significant bladder distention. REPRODUCTIVE: Hysterectomy. BONES: No acute fracture. OTHER FINDINGS: None. IMPRESSION: Bilateral nephrolithiasis and perinephric stranding. Ascending urinary tract infection is not excluded.Significant bladder distention. Postoperative changes status post right hemicolectomy with mild umbilical hernia.
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
[2017-11-22] MEDS: Insulin Reg-HIGH-Coverage SC SCH ×3 (12:26→22:49)
[2017-11-22] MEDS ORDERED: Morphine 2 mg/2 mL syringe IVP PRN (17:14)
--- NOTE | 2017-11-22 20:02 | CON ---
DATE: 11/22/2017 CARDIOLOGY CONSULTATION HISTORY OF PRESENT ILLNESS: The patient is a 56-year-old woman who presents with recurrence of nausea and vomiting. She has documented gastroparesis in the past and has had multiple admissions for the same. She suffers from hypertension, diabetes mellitus as well as frequent APCs. Her EKG in the past has been chronically abnormal. Her workup has included an echocardiogram, which revealed normal LV function and mild pulmonary hypertension. She was advised to have a stress test and was scheduled, but never showed up for the test. REVIEW OF SYSTEMS: A 14-point review of systems reviewed in detail. Other than mentioned above, no additional cardiac symptoms are noted. PHYSICAL EXAMINATION VITAL SIGNS: Blood pressure is 182/95, the heart rate is in the 60s, normal sinus rhythm with frequent APCs. NECK: Negative JVD. LUNGS: Without rales. HEART: Reveals S1 and S2. EXTREMITIES: Without edema. LABORATORY DATA: Revealed hemoglobin of 13.4. Glucose is 310. Troponin is negative x1. IMPRESSION: 1. Nausea and vomiting secondary to gastroparesis. 2. Hypertension. 3. Diabetes mellitus. 4. Abnormal EKG. PLAN: Given these findings, we will add Catapres patch to help control her blood pressure while the patient is nauseous and vomiting. Once her gastroparesis episode is over, we will re-advised the patient to undergo a stress test. Carter Farmer MD
[2017-11-23 06:28] LABS: HEMOGLOBIN 12.1 g/dL (12.0-16.0); MEAN CELL VOLUME 79.5 fl (80.0-105.0); MEAN CORPUSCULAR HEMOGLOBIN 27.9 pg (25.0-35.0); MEAN CORPUSCULAR HGB CONC 35.1 g/dl (31.0-37.0); MEAN PLATELET VOLUME 9.4 fl (7.0-11.0); RBC 4.34 10^6/uL (3.5-6.1); RED CELL DISTRIBUTION WIDTH 12.8 % (11.5-14.5); WHITE BLOOD COUNT 7.3 10^3/ul (4.5-11.0)
[2017-11-23 06:48] LABS: ALB/GLOB RATIO 1.2 (1.1-1.8); ALBUMIN 2.9 g/dL (3.0-4.8); ALT/SGPT 24 U/L (7-56); AST/SGOT 22 U/L (14-36); BLOOD UREA NITROGEN 7 mg/dL (7-21); CALCIUM 7.9 mg/dL (8.4-10.5); GFR AFRICAN-AMERICAN > 60; GFR NON-AFRICAN AMERICAN > 60
[2017-11-23] MEDS ORDERED: Potassium Chloride 20 mEq ER Tab PO ONE ×2 (06:57→08:55)
[2017-11-23] MEDS: Insulin Reg-HIGH-Coverage SC SCH ×4 (08:20→21:44)
[2017-11-23] MEDS: Sodium Chloride 0.9% 1,000 ML IV SCH (08:24)
--- NOTE | 2017-11-23 09:18 | CP.PCM.PN ---
<Yaya Noriega - Last Filed: 11/23/17 09:14> Subjective - Date & Time of Evaluation Date of Evaluation: 11/23/17 Time of Evaluation: 07:00 - Subjective Subjective: PGY5 GI Fellow Progress Note Patient seen and examined bedside this morning. The patient was comfortable earlier but on reevaluation is crying, stating that she has severe abdominal pain. She did not eat breakfast today. No nausea, vomiting. Asking for narcotic pain medication. 12 system ROS performed and negative except where stated. Objective - Vital Signs/Intake and Output Vital Signs (last 24 hours): Temp Pulse Resp BP Pulse Ox 97.7 F 68 18 160/80 H 99 11/23/17 06:00 11/23/17 06:00 11/23/17 06:00 11/23/17 06:00 11/23/17 06:00 Intake and Output: 11/23/17 11/23/17 06:59 18:59 Intake Total 1560 Output Total 1000 Balance 560 - Medications Medications: Current Medications Amlodipine Besylate (Norvasc) 5 mg PO DAILY [facility] Last Admin: 11/22/17 09:49 Dose: 5 mg Aspirin (Aspirin Chewable) 81 mg PO DAILY [facility] Last Admin: 11/22/17 09:49 Dose: 81 mg Clonidine HCl (Catapres-Tts2 0.2 Mg/24 Hr) 1 patch TD Q7D@1000 [facility] Fluoxetine HCl (Prozac) 40 mg PO DAILY [facility] Last Admin: 11/22/17 09:49 Dose: 40 mg Gabapentin (Neurontin) 300 mg PO TID [facility] PRN Reason: Protocol Last Admin: 11/22/17 18:23 Dose: 300 mg Sodium Chloride (Sodium Chloride 0.9%) 1,000 mls @ 100 mls/hr IV .Q10H [facility] Last Admin: 11/23/17 08:24 Dose: 100 mls/hr Potassium Chloride (Potassium Chloride 10 Meq/100 Ml) 10 meq in 100 mls @ 50 mls/hr IVPB Q2H [facility] Stop: 11/23/17 12:59 Potassium Chloride (Potassium Chloride 20 Meq/100 Ml) 20 meq in 100 mls @ 50 mls/hr IVPB ONCE ONE Stop: 11/23/17 11:59 Insulin Human Regular (Humulin R High) 0 units SC ACHS [facility] PRN Reason: Protocol Last Admin: 11/23/17 08:20 Dose: Not Given Lorazepam (Ativan) 1 mg PO BID PRN; Protocol PRN Reason: Anxiety Last Admin: 11/23/17 08:16 Dose: 1 mg Metoclopramide HCl (Reglan) 10 mg PO 0600,1130,1630,2200 [facility] Morphine Sulfate (Morphine) 1 mg IVP Q3H PRN PRN Reason: Pain, moderate (4-7) Ondansetron HCl (Zofran Inj) 4 mg IVP Q6H PRN PRN Reason: Nausea/Vomiting Last Admin: 11/22/17 06:32 Dose: 4 mg Pantoprazole Sodium (Protonix Inj) 40 mg IVP DAILY [facility] Last Admin: 11/22/17 09:49 Dose: 40 mg Sucralfate (Carafate Tab) 1 gm PO QID [facility] Last Admin: 11/22/17 22:46 Dose: 1 gm Tramadol HCl (Ultram) 50 mg PO TID [facility] Last Admin: 11/23/17 08:23 Dose: 50 mg - Labs Labs: 11/23/17 06:10 11/23/17 06:10 - Constitutional Appears: Non-toxic, No Acute Distress - Eye Exam Eye Exam: EOMI, PERRL - ENT Exam ENT Exam: Mucous Membranes Moist - Respiratory Exam Respiratory Exam: Clear to Ausculation Bilateral. absent: Rales, Rhonchi, Wheezes - Cardiovascular Exam Cardiovascular Exam: RRR, +S1, +S2 - GI/Abdominal Exam GI & Abdominal Exam: Soft, Tenderness (mild epigastric), Normal Bowel Sounds. absent: Distended, Firm, Guarding, Rigid, Organomegaly - Extremities Exam Extremities Exam: Normal Inspection. absent: Pedal Edema - Neurological Exam Neurological Exam: Alert, Awake, Oriented x3 - Psychiatric Exam Psychiatric exam: Anxious - Skin Skin Exam: Dry, Warm Assessment and Plan - Assessment and Plan (Free Text) Assessment: Patient is a 56yo female with PMHx significant for HTN, uncontrolled type 1 DM ( a1c 10.4) complicated by retinopathy, polyneuropathy, vasculopathy, gastroparesis, prior TIA, depression/anxiety who presented to the hospital with abdominal pain, nausea and vomiting. -Diabetic gastroparesis -Uncontrolled DM with complications Plan: -Tight glycemic control, pt non-adherent outpatient -Strongly encourage outpatient endo evaluation/treatment for uncontrolled DM -Not tolerating diet presently, continue with liquids -Daily bowel regimen with Miralax 17g PO QD as tolerated -Start Reglan 5mg PO QACHS - would D/C prior to discharge - consider outpt use of Domperidone if possible -Erythromycin unavailable in house <Willie Jaime - Last Filed: 11/23/17 09:30> Objective - Vital Signs/Intake and Output Vital Signs (last 24 hours): Temp Pulse Resp BP Pulse Ox 97.7 F 75 18 186/92 H 99 11/23/17 06:00 11/23/17 09:19 11/23/17 06:00 11/23/17 09:19 11/23/17 06:00 Intake and Output: 11/23/17 11/23/17 06:59 18:59 Intake Total 1560 Output Total 1000 Balance 560 - Medications Medications: Current Medications Amlodipine Besylate (Norvasc) 5 mg PO DAILY [facility] Last Admin: 11/23/17 09:19 Dose: 5 mg Aspirin (Aspirin Chewable) 81 mg PO DAILY [facility] Last Admin: 11/23/17 09:19 Dose: 81 mg Clonidine HCl (Catapres-Tts2 0.2 Mg/24 Hr) 1 patch TD Q7D@1000 [facility] Fluoxetine HCl (Prozac) 40 mg PO DAILY [facility] Last Admin: 11/23/17 09:19 Dose: 40 mg Gabapentin (Neurontin) 300 mg PO TID [facility] PRN Reason: Protocol Last Admin: 11/23/17 09:19 Dose: 300 mg Sodium Chloride (Sodium Chloride 0.9%) 1,000 mls @ 100 mls/hr IV .Q10H [facility] Last Admin: 11/23/17 08:24 Dose: 100 mls/hr Potassium Chloride (Potassium Chloride 10 Meq/100 Ml) 10 meq in 100 mls @ 50 mls/hr IVPB Q2H [facility] Stop: 11/23/17 12:59 Potassium Chloride (Potassium Chloride 20 Meq/100 Ml) 20 meq in 100 mls @ 50 mls/hr IVPB ONCE ONE Stop: 11/23/17 11:59 Insulin Human Regular (Humulin R High) 0 units SC ACHS [facility] PRN Reason: Protocol Last Admin: 11/23/17 08:20 Dose: Not Given Lorazepam (Ativan) 1 mg PO BID PRN; Protocol PRN Reason: Anxiety Last Admin: 11/23/17 08:16 Dose: 1 mg Metoclopramide HCl (Reglan) 10 mg PO 0600,1130,1630,2200 [facility] Morphine Sulfate (Morphine) 1 mg IVP Q3H PRN PRN Reason: Pain, moderate (4-7) Ondansetron HCl (Zofran Inj) 4 mg IVP Q6H PRN PRN Reason: Nausea/Vomiting Last Admin: 11/22/17 06:32 Dose: 4 mg Pantoprazole Sodium (Protonix Inj) 40 mg IVP DAILY [facility] Last Admin: 11/23/17 09:19 Dose: 40 mg Polyethylene Glycol (Miralax) 17 gm PO DAILY [facility] Sucralfate (Carafate Tab) 1 gm PO QID [facility] Last Admin: 11/23/17 09:19 Dose: 1 gm Tramadol HCl (Ultram) 50 mg PO TID [facility] Last Admin: 11/23/17 08:23 Dose: 50 mg - Labs Labs: 11/23/17 06:10 11/23/17 06:10 Attending/Attestation - Attestation I have personally seen and examined this patient.: Yes I have fully participated in the care of the patient.: Yes I have reviewed all pertinent clinical information, including history, physical exam and plan: Yes Notes (Text): 11/23/17 09:28 56 year old female with h/o poorly controlled diabetes with gastroparesis a/w abdominal pain. Recommend optimizing glycemic control, starting reglan, and minimizing opiates. Suspect there is a component of opiate dependency and drug seeking behavior. Advance diet as tolerated from clear liquids to low fat / small freq meals eventually. Will sign off.
--- NOTE | 2017-11-23 09:19 | PN ---
DATE: 11/23/2017 CARDIOLOGY FOLLOWUP SUBJECTIVE: The patient's blood pressure is better on topical Catapres. PHYSICAL EXAMINATION: VITAL SIGNS: Blood pressure is 160/80, heart rate is in the 60s. NECK: Negative JVD. LUNGS: Without rales. HEART: Reveals S1, S2. EXTREMITIES: Without edema. LABORATORY DATA: The potassium is 2.4 with the creatinine is 0.6, hemoglobin is 12. IMPRESSION: We will discuss with Dr. Dent about replacing potassium before discharge. We will arrange for an outpatient stress test. The patient is scheduled for discharge. Carter Farmer MD
[2017-11-23] MEDS: POLYETHYLENE GLYCOL 3350 17 GM/Dose PACKET PO SCH (10:05)
[2017-11-23] MEDS: HYDROmorphone 0.5 mg/0.5 ml ISec IVP PRN ×2 (11:39→16:46)
--- NOTE | 2017-11-23 13:59 | PN ---
DATE: 11/23/2017 SUBJECTIVE: I saw her resting comfortably in bed. When she saw me, she started getting very emotional and crying, but before that she was resting comfortable in bed, watching TV. She is on aspirin, Ativan, Carafate, Catapres, insulin, morphine which she is not taking. She wants tramadol. I put her on tramadol. Neurontin, Norvasc, potassium replacement, Protonix, Prozac, IV fluid, Zofran. I added Reglan. She has been seen by the prototype engineer manager who said that she was eating well and she is not, she is on n.p.o. and they did not offer anything. PHYSICAL EXAMINATION: VITAL SIGNS: 97.7 temp, 68 pulse, 160/80 blood pressure, 18 respiratory rate, 99% O2 sat on room air. HEENT: Head is atraumatic, normocephalic. HEART: Regular rate. LUNGS: Decreased breath sounds, but clear. ABDOMEN: Soft. Decreased bowel sounds are present. EXTREMITIES: No edema. LABORATORY DATA: She has a 7.3 white count, 12.1 hemoglobin, 34.5 hematocrit with 249 platelets. She has a 139 sodium; potassium is down to 2.4, I gave her K rider, I gave her potassium p.o. to take, she is also going to be on potassium when she gets out of here on a regular basis; BUN is 12; creatinine is GFR is greater than 60; sugar is 120; calcium 7.9; total bili is 0.2; AST is 22; ALT is 24; alk phos 37. Micro is negative. ASSESSMENT AND PLAN: My plan is to increase her diet to full for breakfast, regular for lunch, then discharge if she does well. Put her back on her Reglan and her tramadol. She is on Zofran, IV fluids and hopefully she will improve. The nurse will call me after lunch to see how she did with the lunch. If she does well, then discharge her home. As far as GI is concerned, not much else we can do for her. Josafat Dent DO [facility] # [phone] MTDD
[2017-11-23] MEDS ORDERED: Magnesium Sulfate 2 gm/50 ml 2 GM/50 ML BAG IVPB ONE (17:27)
[2017-11-23 17:32] LABS: ARTERIAL BLOOD GAS HCO3 28.5 mmol/L (21-28); ARTERIAL BLOOD GAS HEMOGLOBIN 11.7 g/dL (11.7-17.4); ARTERIAL BLOOD GAS O2 CAPACITY 17.3 mL/dl (16-24); ARTERIAL BLOOD GAS O2 CONTENT 17.1 ML/dl (15-23); ARTERIAL BLOOD GAS PCO2 46 mm/Hg (35-45); ARTERIAL BLOOD GAS TCO2 29.9 mmol.L (22-28)
[2017-11-23 17:37] LABS: HEMOGLOBIN 12.2 g/dL (12.0-16.0); MEAN CELL VOLUME 79.1 fl (80.0-105.0); MEAN CORPUSCULAR HEMOGLOBIN 28.3 pg (25.0-35.0); MEAN CORPUSCULAR HGB CONC 35.8 g/dl (31.0-37.0); MEAN PLATELET VOLUME 9.2 fl (7.0-11.0); RBC 4.31 10^6/uL (3.5-6.1); RED CELL DISTRIBUTION WIDTH 12.8 % (11.5-14.5); WHITE BLOOD COUNT 10.4 10^3/ul (4.5-11.0)
[2017-11-23 17:58] LABS: ALB/GLOB RATIO 1.3 (1.1-1.8); ALBUMIN 3.2 g/dL (3.0-4.8); ALT/SGPT 28 U/L (7-56); AST/SGOT 26 U/L (14-36); BLOOD UREA NITROGEN 7 mg/dL (7-21); CALCIUM 8.1 mg/dL (8.4-10.5); GFR AFRICAN-AMERICAN > 60; GFR NON-AFRICAN AMERICAN > 60
[2017-11-23 17:59] LABS: TROPONIN I 0.02 ng/mL
--- NOTE | 2017-11-23 18:23 | PCM.RRT ---
<Naomi James - Last Filed: 11/23/17 18:32> [employer] Nurse Assessment - Situation Date: 11/23/17 Time [employer] was called: 17:02 [employer] Responder Arrival Time: 17:03 [employer] Location:: [address] [place] [address] Room Number: [id number] [employer] Reason for Call: Hypertension, Change in Mental Status [employer] Called By: RN - IV IV Inserted during [employer]?: No - Respiratory Oxygen Delivery Method: Non Rebreather @% Oxygen Flow Rate: 15 Received Nebulizer Treatments:: No Was the Patient Ventilated with Bag/Mask 100% O2?: No Secretions Suctioned?: No Was the Patient Intubated?: No Was the Patient Placed on a Ventilator?: No - Medication Medications Administered During [employer]: lopressor 5mg IVP - Diagnostic Test Ordered EKG: Yes Chest X-Ray: No CT Scan: No - Stat Labs Ordered [employer] Stat Labs Ordered: CBC, BMP, TROPONIN, ABG CPR started during [employer]?: No - Vital Signs Vital Sign: Rapid Response Vital Sign Blood Pressure 180/90 Pulse Rate 74 Respiratory Rate 22 Temperature 99.1 F Oxygen Saturation 100 - Finger Stick Blood Glucose Finger Stick Blood Glucose: 206 - Vital Signs at end of [employer] Vital Signs at end of [employer]: Rapid Response End Vital Sign Blood Pressure 153/93 Pulse Rate 72 Respiratory Rate 20 Temperature 99 F O2 Sat by Pulse Oximetry 100 - Recommendations Notifications: Attending Physician I.Reason for [employer] - A) Acute Change in Patient: (Select all that apply): Acute change in mental status - Respiratory Oxygen Delivery Method: Non Rebreather @% Oxygen Flow Rate: 15 - Constitutional Appears: Chronically Ill, Other (lethargic) - Head Head Exam: ATRAUMATIC, NORMOCEPHALIC - Eyes Eye Exam: EOMI Additional Comments: contracted pupils - Respiratory Exam Respiratory Exam: Clear to Ausculation Bilateral, NORMAL BREATHING PATTERN (on non rebreather). absent: Rhonchi, Wheezes - Cardiovascular Exam Cardiovascular Exam: Tachycardia, REGULAR RHYTHM, +S1, +S2. absent: Diastolic murmur, Murmur - GI/Abdominal Exam GI & Abdominal Exam: Soft. absent: Distended, Firm, Guarding, Tenderness - Neurological Exam Additional exam: alert and awake, following simple commends - Extremities Exam Extremities Exam: Normal Inspection Plan - Assessment of Findings&Treatment Plan 56 yo female with PMH of CVA, COPD, diabetic neuropathy, anemia, diabetes, irritable bowel initially presented to hospital for abd pain, had [employer] called for AMS, non responsiveness, shallow breathing. Patient was placed on non rebreather mask and placed on cardiac monitoring. Patient became responsive was able to move all extremities and follow simple commends. Patient was given dilaudid 1 mg abot 15 mins before [employer] was called. Per family at bedside patient has had similar reactions to dilaudid in the past. Patient was to have elevated BP and tachycardic. She was given 5mg IVP of lopressor once. Patient was saturating 100% non re breather and rectal temperature of 99.1. Blood work was reviewed including ABG, cbc, cmp, troponin. Patient was found to have hypomagnesemia, magnesium was replaced. Primary care was notified recommended ICU consult, cardiology consult and neurology consult. Neurologist recommended MRI of head. <Danae Meredith - Last Filed: 11/23/17 19:18> [employer] Nurse Assessment - Vital Signs Vital Sign: Rapid Response Vital Sign Blood Pressure 180/90 Pulse Rate 74 Respiratory Rate 22 Temperature 99.1 F Oxygen Saturation 100 - Vital Signs at end of [employer] Vital Signs at end of [employer]: Rapid Response End Vital Sign Blood Pressure 153/93 Pulse Rate 72 Respiratory Rate 20 Temperature 99 F O2 Sat by Pulse Oximetry 100 Attending/Attestation - Attestation I have personally seen and examined this patient.: Yes I have fully participated in the care of the patient.: Yes I have reviewed all pertinent clinical information, including history, physical exam and plan: Yes Notes (Text): 11/23/17 19:15 attending note; Patient seen and examined with the resident during [employer]. Rapid response was called for lethargy. Patient got a dose of IV Dilaudid. Patient was placed on an non rebreather briefly. Patient is alert and awake. Able to move extremities. But lethargic. ABG without significant hypoxia. Lab work ordered. Hypertension treated with IV Lopressor. Case discussed with PMD and asphalt coater in detail by treating nurse. Case discussed with neurologist in detail. MRI ordered. Avoid narcotics. Possible interaction/added effect with other sedatives and anti -psychotic medication. monitor patient closely in telemetry. ICU evaluation requested. Case discussed with plastic mixer in detail. Further plan as per primary care. Patient's daughter by the bedside.
[2017-11-23] MEDS ORDERED: Potassium Chloride 40 mEq/30 ml LIQ UD PO ONE ×2 (18:33→22:15)
--- NOTE | 2017-11-23 18:37 | MRI ---
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 TECHNIQUE: Multiplanar, multisequence MR images of the brain were obtained without intravenous contrast enhancement. FINDINGS: HEMORRHAGE: None DWI: No evidence of an acute or early subacute infarction. BRAIN PARENCHYMA: Good corticomedullary differentiation is seen. Proportional, diffuse expansion of the ventriculosulcal and cisternal spaces is appreciated with limited periventricular and left greater than right parietal deep white matter white matter signal changes compatible with diffuse cerebral atrophy and chronic microangiopathy. No suspicious extra-axial fluid collection is identified and the midline brain anatomy appears grossly nonfocal as imaged. There is no mass effect throughout. Gradient echo axial images reflect a tiny cavernoma in the bilateral parietal lobes once again. No significant interval change overall. VENTRICLES: Unremarkable. No hydrocephalus. CRANIUM: Unremarkable. ORBITS: Grossly unremarkable. PARANASAL SINUSES/MASTOIDS: Trace bilateral mastoid effusions. VASCULAR SYSTEM: Skull base flow voids intact. OTHER FINDINGS: None. IMPRESSION: No acute interval findings. Trace chronic microangiopathy and diffuse cerebral atrophy are reiterated as well as solitary bilateral parietal cavernoma.
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
[2017-11-23] MEDS: Sodium Chloride 0.45% 1,000 ML IV SCH (20:46)
--- NOTE | 2017-11-23 22:26 | CARD ---
APPROVED REPORT EKG Measurement Heart [id number] <Conclusion> Normal sinus rhythm with sinus arrhythmia T wave abnormality, consider inferior ischemia T wave abnormality, consider anterolateral ischemia Prolonged QT Abnormal ECG
[2017-11-24] MEDS: Insulin Reg-HIGH-Coverage SC SCH ×4 (08:22→21:49)
[2017-11-24] MEDS: POLYETHYLENE GLYCOL 3350 17 GM/Dose PACKET PO SCH (09:37)
--- NOTE | 2017-11-24 10:01 | PN ---
DATE: 11/24/2017 CARDIOLOGY FOLLOWUP SUBJECTIVE: The above events were noted. The patient's discharge was canceled. The patient is currently awake. PHYSICAL EXAMINATION: VITAL SIGNS: Blood pressure is 166/91, heart rates in the 70s. NECK: Negative JVD. LUNGS: Without rales. HEART: Reveals S1, S2. EXTREMITIES: Without edema. LABORATORY DATA: Hemoglobin is 12, BUN and creatinine unremarkable. Glucose is 212. IMPRESSION: 1. Transient altered mental status. 2. Chronic abdominal pain. 3. Hypertension. PLAN: Given these findings, we will increase her Norvasc to 10 mg daily for better blood pressure control. No evidence for acute cardiac issues at this time. Carter Farmer MD
[2017-11-24 10:16] LABS: BLOOD UREA NITROGEN 7 mg/dL (7-21); CALCIUM 8.7 mg/dL (8.4-10.5); GFR AFRICAN-AMERICAN > 60; GFR NON-AFRICAN AMERICAN > 60
--- NOTE | 2017-11-24 10:18 | CP.PCM.PN ---
<Yaya Noriega - Last Filed: 11/24/17 10:15> Subjective - Date & Time of Evaluation Date of Evaluation: 11/24/17 Time of Evaluation: 09:20 - Subjective Subjective: PGY5 GI Fellow Progress Note Patient seen and examined bedside this morning. The patient is emotional, crying and stating she continues to have epigastric abdominal pain, palpitations , chest pain. She is requesting narcotic pain medication. Last night, with administration of Dilaudid, had INSTRUCTOR LOOPING which improved as medication effect wore off. ICU, neurologic evaluations noted. Cardiology has evaluated and states no acute cardiac issues at this time. 12 system ROS performed and negative except where stated. Objective - Vital Signs/Intake and Output Vital Signs (last 24 hours): Temp Pulse Resp BP Pulse Ox 98.3 F 72 20 180/100 H 98 11/24/17 06:00 11/24/17 06:00 11/24/17 06:00 11/24/17 09:33 11/24/17 06:00 Intake and Output: 11/24/17 11/24/17 06:59 18:59 Intake Total 300 Output Total 450 Balance -450 300 - Medications Medications: Current Medications Amlodipine Besylate (Norvasc) 10 mg PO DAILY [facility] Last Admin: 11/24/17 09:33 Dose: 10 mg Aspirin (Aspirin Chewable) 81 mg PO DAILY [facility] Last Admin: 11/24/17 09:32 Dose: 81 mg Clonidine HCl (Catapres-Tts2 0.2 Mg/24 Hr) 1 patch TD Q7D@1000 [facility] Fluoxetine HCl (Prozac) 40 mg PO DAILY [facility] Last Admin: 11/24/17 09:33 Dose: 40 mg Gabapentin (Neurontin) 300 mg PO TID [facility] PRN Reason: Protocol Last Admin: 11/24/17 09:32 Dose: 300 mg Sodium Chloride (Sodium Chloride 0.45%) 1,000 mls @ 30 mls/hr IV .Q24H [facility] Last Admin: 11/23/17 20:46 Dose: 30 mls/hr Insulin Human Regular (Humulin R High) 0 units SC ACHS [facility] PRN Reason: Protocol Last Admin: 11/24/17 08:22 Dose: Not Given Lorazepam (Ativan) 1 mg PO BID PRN; Protocol PRN Reason: Anxiety Last Admin: 11/23/17 08:16 Dose: 1 mg Metoclopramide HCl (Reglan) 10 mg IVP ACHS [facility] Last Admin: 11/24/17 08:27 Dose: 10 mg Ondansetron HCl (Zofran Inj) 4 mg IVP Q6H PRN PRN Reason: Nausea/Vomiting Last Admin: 11/24/17 02:43 Dose: 4 mg Pantoprazole Sodium (Protonix Inj) 40 mg IVP DAILY [facility] Last Admin: 11/24/17 09:33 Dose: 40 mg Polyethylene Glycol (Miralax) 17 gm PO DAILY [facility] Last Admin: 11/24/17 09:37 Dose: Not Given Sucralfate (Carafate Tab) 1 gm PO QID [facility] Last Admin: 11/24/17 09:32 Dose: 1 gm - Labs Labs: 11/23/17 17:25 11/23/17 17:25 - Constitutional Appears: In Acute Distress (emotional, stating significant pain) - Eye Exam Eye Exam: EOMI, PERRL - ENT Exam ENT Exam: Mucous Membranes Dry - Respiratory Exam Respiratory Exam: Clear to Ausculation Bilateral. absent: Rales, Rhonchi, Wheezes - Cardiovascular Exam Cardiovascular Exam: RRR, +S1, +S2 - GI/Abdominal Exam GI & Abdominal Exam: Soft, Tenderness (diffusely), Normal Bowel Sounds. absent : Distended, Firm, Guarding, Rigid, Organomegaly - Extremities Exam Extremities Exam: Normal Inspection. absent: Pedal Edema - Neurological Exam Neurological Exam: Alert, Awake, Oriented x3 - Psychiatric Exam Psychiatric exam: Agitated, Anxious - Skin Skin Exam: Dry, Warm Assessment and Plan - Assessment and Plan (Free Text) Assessment: Patient is a 56yo female with PMHx significant for HTN, uncontrolled type 1 DM ( a1c 10.4) complicated by retinopathy, polyneuropathy, vasculopathy, gastroparesis, prior TIA, depression/anxiety who presented to the hospital with abdominal pain, nausea and vomiting. -Diabetic gastroparesis -Uncontrolled DM with complications Plan: -Given persistence of epigastric pain, will arrange for EGD this afternoon -Maintain NPO -Cardiac clearance noted - no active issues stated by cardiology in their note today -Tight glycemic control, pt non-adherent outpatient -Strongly encourage outpatient endo evaluation/treatment for uncontrolled DM -Daily bowel regimen with Miralax 17g PO QD as tolerated -Reglan 5mg PO QACHS -Avoid opiate narcotics if possible -Bladder dramatically distended on CT A/P - recommend bladder scan and catheterization if necessary -Plan per findings <AbramsEzio mocklogan - Last Filed: 11/24/17 13:44> Objective - Vital Signs/Intake and Output Vital Signs (last 24 hours): Temp Pulse Resp BP Pulse Ox 98.3 F 75 20 172/90 H 98 11/24/17 06:00 11/24/17 11:28 11/24/17 06:00 11/24/17 11:28 11/24/17 06:00 Intake and Output: 11/24/17 11/24/17 06:59 18:59 Intake Total 300 Output Total 450 Balance -450 300 - Medications Medications: Current Medications Amlodipine Besylate (Norvasc) 10 mg PO DAILY [facility] Last Admin: 11/24/17 09:33 Dose: 10 mg Aspirin (Aspirin Chewable) 81 mg PO DAILY [facility] Last Admin: 11/24/17 09:32 Dose: 81 mg Clonidine HCl (Catapres-Tts2 0.2 Mg/24 Hr) 1 patch TD Q7D@1000 [facility] Last Admin: 11/24/17 11:28 Dose: 1 patch Fluoxetine HCl (Prozac) 40 mg PO DAILY [facility] Last Admin: 11/24/17 09:33 Dose: 40 mg Gabapentin (Neurontin) 300 mg PO TID [facility] PRN Reason: Protocol Last Admin: 11/24/17 09:32 Dose: 300 mg Sodium Chloride (Sodium Chloride 0.45%) 1,000 mls @ 30 mls/hr IV .Q24H [facility] Last Admin: 11/23/17 20:46 Dose: 30 mls/hr Insulin Human Regular (Humulin R High) 0 units SC ACHS [facility] PRN Reason: Protocol Last Admin: 11/24/17 13:09 Dose: Not Given Lorazepam (Ativan) 1 mg PO BID PRN; Protocol PRN Reason: Anxiety Last Admin: 11/23/17 08:16 Dose: 1 mg Metoclopramide HCl (Reglan) 10 mg IVP ACHS [facility] Last Admin: 11/24/17 12:25 Dose: 10 mg Ondansetron HCl (Zofran Inj) 4 mg IVP Q6H PRN PRN Reason: Nausea/Vomiting Last Admin: 06/27/18 12:25 Dose: 4 mg Pantoprazole Sodium (Protonix Inj) 40 mg IVP DAILY [facility] Last Admin: 11/24/17 09:33 Dose: 40 mg Polyethylene Glycol (Miralax) 17 gm PO DAILY [facility] Last Admin: 11/24/17 09:37 Dose: Not Given Sucralfate (Carafate Tab) 1 gm PO QID [facility] Last Admin: 11/24/17 09:32 Dose: 1 gm - Labs Labs: 11/23/17 17:25 11/24/17 09:45 Attending/Attestation - Attestation I have personally seen and examined this patient.: Yes I have fully participated in the care of the patient.: Yes I have reviewed all pertinent clinical information, including history, physical exam and plan: Yes Notes (Text): 11/24/17 13:40 56 year old female with h/o poorly controlled diabetes with gastroparesis admitted with abdominal pain. She was scheduled for EGD for today but she complained of chest pain and palpitations this morning when I evaluated her. Elective procedure was with held for cardiology evaluation. Recommend optimizing glycemic control, starting reglan, and minimizing opiates. Suspect there is a component of opiate dependency and drug seeking behavior. Advance diet as tolerated from clear liquids to low fat / small frequent meals eventually. Discussed with Dr Dent to get cardiology re evaluation for new onset chest pain and palpitations this morning after having rapid response last night. Will schedule for EGD later this week once patient has been cleared after cardiology re evaluation.
[2017-11-24 10:26] LABS: TROPONIN I 0.02 ng/mL
[2017-11-24] MEDS ORDERED: Magnesium 2 gm/50 ml NS 2 GM/50 ML BAG IVPB ONE (10:27)
--- NOTE | 2017-11-24 12:59 | CARD ---
APPROVED REPORT EKG Measurement Heart [id number] <Conclusion> Normal sinus rhythm with sinus arrhythmia T wave abnormality, consider inferolateral ischemia Prolonged QT Abnormal ECG
--- NOTE | 2017-11-24 13:36 | PN ---
DATE: 11/24/2017 SUBJECTIVE: She had a very rough day yesterday. She was on Tramadol and she was on morphine, but she refused to take them and she was in very bad pain. She states it did not work. She asked for Dilaudid and gave 1 mg of Dilaudid and then she went unresponsive. She is still breathing, we did a rapid response, and now she is off all pain meds. The MRI of the brain showed chronic stuff, nothing new. The next thing I looked at the GI note yesterday and they signed off the case. She is still having a lot of abdominal pain, not eating, crying with gastroparesis. She is n.p.o. I was told by the nurse she was having an endoscopy today, which would I think she needs. I called down to endoscopy she is not on the list. Last note from GI that they signed off on the case or off the case. PHYSICAL EXAMINATION GENERAL: She is very uncomfortable. VITAL SIGNS: She has 98.3 temperature, 72 pulse, 166/91 blood pressure. She is on the Catapres patch now. Respiratory rate 20 and 98% O2 on nasal cannula. HEENT: Head is atraumatic and normocephalic. HEART: Regular rate. LUNGS: Decreased breath sounds. ABDOMEN: Soft. Decreased bowel sounds, but present. EXTREMITIES: No edema. LABORATORY DATA: She has a 139 sodium, potassium 3.6. BUN is 7, creatinine is 0.7. GFR is greater than 60. Sugar is 212. Calcium is 8.1, phosphorus 2.7, magnesium of 1.2. AST is 26, ALT is 28. Alkaline phosphatase is 78. Troponin I is 0.02. White count 7.4, hemoglobin 12.2, hematocrit 34.1, and platelets are 242. She is n.p.o. medications for the stomach, Ativan, Catapres, Carafate, Miralax, Neurontin, Norvasc, Protonix IV, Prozac, Reglan IV, IV fluids, and Zofran. I will recheck the GI and see if they can do anything or they still off the case. If they are, get somebody else. Continue with aggressive treatment and care. Ting Monaco is with severe abdominal pain and I cannot use pain meds because she went unresponsive. Josafat Dent DO [facility] # [phone] [id number]
--- NOTE | 2017-11-24 14:30 | CP.PCM.PCO ---
Physician Communication Note - Physician Communication Note Physician Communication Note: ams sec to opiates overuse and htn urgency. mri brain neg for acute abnorma
[2017-11-24] MEDS: Sodium Chloride 0.45% 1,000 ML IV SCH (21:30)
--- NOTE | 2017-11-25 00:58 | CON ---
DATE: 11/24/2017HISTORY OF PRESENT ILLNESS: This is a 56-year-old female with past medical history of hypertension, diabetes, peripheral neuropathy with right foot amputation, gastroparesis, depression, anxiety; came to the hospital with the complaint of abdominal pain and patient was unresponsive because of too much sedative medications were given, benzos and Dilaudid, and called for altered mental status. Patient had hypertension, blood pressure was 220/120 in the ER and this morning, I saw she is more responsive, able to answer all my questions and still has abdominal discomfort. PAST MEDICAL HISTORY: Hypertension, diabetes, retinopathy, polyneuropathy, gastroparesis, TIA, depression and anxiety. PAST SURGICAL HISTORY: The patient also had a past surgical history of hemicolectomy and cholecystectomy, appendectomy, hysterectomy, , hernia repair. SOCIAL HISTORY: Does not smoke. Does not drink. ALLERGIES: NARCOTIC DILAUDID, MORPHINE. REVIEW OF SYSTEMS: Ten-point review of systems was negative except abdominal pain and sedated medications. PHYSICAL EXAMINATION: HEENT: Normocephalic, atraumatic. VITAL SIGNS: Blood pressure 196/102. NECK: Supple. NEUROLOGIC: Alert, awake, oriented to self and place. Cranial nerve II through XII were tested. Pupils reactive. Left eye cataract surgery and no facial asymmetry. Tongue in the midline. Motor examination: Spontaneous movement of the extremities noted. Deep tendon reflexes 1+. Both plantars are downgoing. Sensory appears intact. Cerebellar and gait deferred. IMPRESSION: Altered mental status secondary to possibly sedation and MRI of the head was done, which shows bilateral parietal cavernomas. Continue present workup in progress. We will follow up. Juan Manuel Knight MD
[2017-11-25 06:36] LABS: HEMOGLOBIN 11.3 g/dL (12.0-16.0); MEAN CELL VOLUME 79.7 fl (80.0-105.0); MEAN CORPUSCULAR HGB CONC 35.1 g/dl (31.0-37.0); MEAN PLATELET VOLUME 9.7 fl (7.0-11.0); RBC 4.04 10^6/uL (3.5-6.1); RED CELL DISTRIBUTION WIDTH 12.9 % (11.5-14.5); WHITE BLOOD COUNT 11.7 10^3/ul (4.5-11.0)
[2017-11-25 07:17] LABS: ALB/GLOB RATIO 1.1 (1.1-1.8); ALBUMIN 2.6 g/dL (3.0-4.8); ALT/SGPT 16 U/L (7-56); AST/SGOT 14 U/L (14-36); BLOOD UREA NITROGEN 8 mg/dL (7-21); CALCIUM 8.1 mg/dL (8.4-10.5); GFR AFRICAN-AMERICAN > 60; GFR NON-AFRICAN AMERICAN > 60
[2017-11-25] MEDS: Insulin Reg-HIGH-Coverage SC SCH ×4 (08:00→21:34)
[2017-11-25] MEDS: POLYETHYLENE GLYCOL 3350 17 GM/Dose PACKET PO SCH ×2 (09:52→09:55)
--- NOTE | 2017-11-25 11:04 | PN ---
DATE: 11/25/2017 SUBJECTIVE: I was hoping that she would have gone for an endoscopy yesterday, but Cardiology could not clear her on time and Anesthesia will not take her cleared her, even though the EKG was fine and the troponin was negative. MEDICATIONS: She is on aspirin, Ativan, Carafate, Catapres, insulin, MiraLax, Neurontin, Norvasc, potassium replacement, Protonix, Prozac, Reglan, IV fluids, Zofran and occasional Ultram. PHYSICAL EXAMINATION: VITAL SIGNS: Temperature 98.3, 80 pulse, 134/79 blood pressure, 20 respiratory rate, 99% O2 sat on nasal cannula. HEENT: Head is atraumatic, normocephalic. HEART: Regular rate. LUNGS: Decreased breath sounds. ABDOMEN: Soft, nontender. Positive bowel sounds today. EXTREMITIES: No edema. At this time, the pain is less. LABORATORY DATA: She has an 11.7 white count, 11.3 hemoglobin, 32.2 hematocrit with 234 platelets. Sodium 137; potassium 3, I will replace the potassium again; BUN 8; creatinine 0.7, GFR is greater than 60, sugar is 224, calcium is 8.1, total bili is less than 0.01, AST is 14, ALT is 16, alkaline phosphatase is 84, total protein is 5. I will adjust her diabetes medication. The plan right now is for her to have an endoscopy tomorrow, checking her blood pressure, getting her out of bed to chair, adjusting her medications. The patient is here for diabetes, gastroparesis, severe abdominal pain, low potassium, anxiety. Josafat Dent DO MTDD
--- NOTE | 2017-11-25 12:23 | PN ---
DATE: 11/25/2017 CARDIOLOGY FOLLOWUP SUBJECTIVE: The patient is without chest pain, without abdominal pain. PHYSICAL EXAMINATION: VITAL SIGNS: Blood pressure is 161/94, heart rate is in the 90s. NECK: Negative JVD. LUNGS: Without rales. HEART: Reveals S1, S2. EXTREMITIES: Without edema. LABORATORY DATA: Hemoglobin is 11.3. Chemistries: BUN and creatinine are normal. Glucose is 224. IMPRESSION: 1. Resolution of chest pain. 2. Recurrent abdominal pain. 3. Diabetes mellitus. 4. Sinus tachycardia, which is now resolved now that her abdominal pain is better. PLAN: Given these findings, the patient's cardiac status is stable. There is no evidence for active cardiac issues. We will continue her clonidine for her hypertension. Carter Farmer MD
--- NOTE | 2017-11-25 15:27 | CP.PCM.PN ---
<DarlinebhargaviolgaYaya - Last Filed: 11/25/17 15:20> Subjective - Date & Time of Evaluation Date of Evaluation: 11/25/17 Time of Evaluation: 13:20 - Subjective Subjective: PGY5 GI Fellow Progress Note Patient seen and examined bedside this morning. Currently out of bed, in bedside chair with family. The patient states that she is feeling better today. Abdominal pain has lessened and she has no nausea, vomiting. Tolerating liquid diet. Passing bowel movements presently. No events last night. 12 system ROS performed and negative except where stated. Objective - Vital Signs/Intake and Output Vital Signs (last 24 hours): Temp Pulse Resp BP Pulse Ox 97.8 F 41 L 18 106/61 99 11/25/17 11:48 11/25/17 11:48 11/25/17 11:48 11/25/17 11:48 11/25/17 06:29 Intake and Output: 11/25/17 11/25/17 06:59 18:59 Intake Total 342 720 Output Total 300 Balance 42 720 - Medications Medications: Current Medications Amlodipine Besylate (Norvasc) 10 mg PO DAILY [facility] Last Admin: 11/25/17 09:52 Dose: 10 mg Aspirin (Aspirin Chewable) 81 mg PO DAILY [facility] Last Admin: 11/25/17 09:53 Dose: 81 mg Clonidine HCl (Catapres-Tts2 0.2 Mg/24 Hr) 1 patch TD Q7D@1000 [facility] Last Admin: 11/25/17 09:53 Dose: 1 patch Fluoxetine HCl (Prozac) 40 mg PO DAILY [facility] Last Admin: 11/25/17 09:53 Dose: 40 mg Gabapentin (Neurontin) 300 mg PO TID [facility] PRN Reason: Protocol Last Admin: 11/25/17 14:18 Dose: 300 mg Sodium Chloride (Sodium Chloride 0.45%) 1,000 mls @ 30 mls/hr IV .Q24H [facility] Last Admin: 11/24/17 21:30 Dose: 30 mls/hr Insulin Human Regular (Humulin R High) 0 units SC ACHS [facility] PRN Reason: Protocol Last Admin: 11/25/17 11:55 Dose: 4 units Lorazepam (Ativan) 1 mg PO BID PRN; Protocol PRN Reason: Anxiety Last Admin: 11/23/17 08:16 Dose: 1 mg Metoclopramide HCl (Reglan) 10 mg IVP ACHS [facility] Last Admin: 11/25/17 11:55 Dose: 10 mg Ondansetron HCl (Zofran Inj) 4 mg IVP Q6H PRN PRN Reason: Nausea/Vomiting Last Admin: 11/24/17 12:25 Dose: 4 mg Pantoprazole Sodium (Protonix Inj) 40 mg IVP DAILY [facility] Last Admin: 11/25/17 09:52 Dose: 40 mg Polyethylene Glycol (Miralax) 17 gm PO DAILY [facility] Last Admin: 11/25/17 09:55 Dose: Not Given Sucralfate (Carafate Tab) 1 gm PO QID [facility] Last Admin: 11/25/17 14:18 Dose: 1 gm Tramadol HCl (Ultram) 50 mg PO TID PRN PRN Reason: Pain, severe (8-10) Last Admin: 11/25/17 08:00 Dose: 50 mg - Labs Labs: 11/25/17 06:00 11/25/17 06:00 - Constitutional Appears: Non-toxic, No Acute Distress - Eye Exam Eye Exam: EOMI, PERRL - ENT Exam ENT Exam: Mucous Membranes Moist - Respiratory Exam Respiratory Exam: Clear to Ausculation Bilateral. absent: Rales, Rhonchi, Wheezes - Cardiovascular Exam Cardiovascular Exam: RRR, +S1, +S2 - GI/Abdominal Exam GI & Abdominal Exam: Soft, Tenderness (minimal, epigastric), Normal Bowel Sounds. absent: Distended, Firm, Guarding, Rigid, Organomegaly - Extremities Exam Additional comments: prior transmetatarsal amputation - Neurological Exam Neurological Exam: Alert, Awake, Oriented x3 - Psychiatric Exam Psychiatric exam: Normal Affect, Normal Mood - Skin Skin Exam: Dry, Warm Assessment and Plan - Assessment and Plan (Free Text) Assessment: Patient is a 56yo female with PMHx significant for HTN, uncontrolled type 1 DM ( a1c 10.4) complicated by retinopathy, polyneuropathy, vasculopathy, gastroparesis, prior TIA, depression/anxiety who presented to the hospital with abdominal pain, nausea and vomiting. -Diabetic gastroparesis -Uncontrolled DM with complications Plan: -Symptomatically improved today -Continue with current therapy -Maintain liquid diet -Stressed importance of daily BM and avoiding constipation - education of daily Miralax -Plan for EGD tomorrow; NPO past midnight -Patient needs endocrinology follow up - previously nonadherent -Maintain tight glycemic control, pt non-adherent outpatient -Reglan 5mg PO QACHS -Avoid opiate narcotics if possible -Bladder dramatically distended on CT A/P - voiding without issue and bladder scan with 125cc yesterday <Benton Abrams - Last Filed: 11/25/17 16:44> Objective - Vital Signs/Intake and Output Vital Signs (last 24 hours): Temp Pulse Resp BP Pulse Ox 97.8 F 41 L 18 106/61 99 11/25/17 11:48 11/25/17 11:48 11/25/17 11:48 11/25/17 11:48 11/25/17 06:29 Intake and Output: 11/25/17 11/25/17 06:59 18:59 Intake Total 342 720 Output Total 300 Balance 42 720 - Medications Medications: Current Medications Amlodipine Besylate (Norvasc) 10 mg PO DAILY [facility] Last Admin: 11/25/17 09:52 Dose: 10 mg Aspirin (Aspirin Chewable) 81 mg PO DAILY [facility] Last Admin: 11/25/17 09:53 Dose: 81 mg Clonidine HCl (Catapres-Tts2 0.2 Mg/24 Hr) 1 patch TD Q7D@1000 [facility] Last Admin: 11/25/17 09:53 Dose: 1 patch Fluoxetine HCl (Prozac) 40 mg PO DAILY [facility] Last Admin: 11/25/17 09:53 Dose: 40 mg Gabapentin (Neurontin) 300 mg PO TID [facility] PRN Reason: Protocol Last Admin: 11/25/17 14:18 Dose: 300 mg Sodium Chloride (Sodium Chloride 0.45%) 1,000 mls @ 30 mls/hr IV .Q24H [facility] Last Admin: 11/24/17 21:30 Dose: 30 mls/hr Insulin Human Regular (Humulin R High) 0 units SC ACHS [facility] PRN Reason: Protocol Last Admin: 11/25/17 16:13 Dose: Not Given Lorazepam (Ativan) 1 mg PO BID PRN; Protocol PRN Reason: Anxiety Last Admin: 11/23/17 08:16 Dose: 1 mg Metoclopramide HCl (Reglan) 10 mg IVP ACHS [facility] Last Admin: 11/25/17 11:55 Dose: 10 mg Ondansetron HCl (Zofran Inj) 4 mg IVP Q6H PRN PRN Reason: Nausea/Vomiting Last Admin: 11/24/17 12:25 Dose: 4 mg Pantoprazole Sodium (Protonix Inj) 40 mg IVP DAILY [facility] Last Admin: 11/25/17 09:52 Dose: 40 mg Polyethylene Glycol (Miralax) 17 gm PO DAILY [facility] Last Admin: 11/25/17 09:55 Dose: Not Given Sucralfate (Carafate Tab) 1 gm PO QID [facility] Last Admin: 11/25/17 14:18 Dose: 1 gm Tramadol HCl (Ultram) 50 mg PO TID PRN PRN Reason: Pain, severe (8-10) Last Admin: 11/25/17 08:00 Dose: 50 mg - Labs Labs: 11/25/17 06:00 11/25/17 06:00 Attending/Attestation - Attestation I have personally seen and examined this patient.: Yes I have fully participated in the care of the patient.: Yes I have reviewed all pertinent clinical information, including history, physical exam and plan: Yes Notes (Text): 11/25/17 16:43 56 year old female with h/o poorly controlled diabetes with gastroparesis admitted with abdominal pain. She is scheduled for EGD for tomorrow am. Recommend optimizing glycemic control, starting reglan, and minimizing opiates. Suspect there is a component of opiate dependency and drug seeking behavior. Advance diet as tolerated from clear liquids to low fat / small frequent meals eventually. Discussed with Dr Dent
[2017-11-26 06:59] LABS: HEMOGLOBIN 10.9 g/dL (12.0-16.0); MEAN CELL VOLUME 80.8 fl (80.0-105.0); MEAN CORPUSCULAR HEMOGLOBIN 28.2 pg (25.0-35.0); MEAN CORPUSCULAR HGB CONC 34.9 g/dl (31.0-37.0); MEAN PLATELET VOLUME 9.9 fl (7.0-11.0); RBC 3.86 10^6/uL (3.5-6.1); RED CELL DISTRIBUTION WIDTH 13.2 % (11.5-14.5); WHITE BLOOD COUNT 14.5 10^3/ul (4.5-11.0)
[2017-11-26 07:05] LABS: ALB/GLOB RATIO 1.1 (1.1-1.8); ALBUMIN 2.4 g/dL (3.0-4.8); ALT/SGPT 22 U/L (7-56); AST/SGOT 15 U/L (14-36); BLOOD UREA NITROGEN 11 mg/dL (7-21); CALCIUM 7.8 mg/dL (8.4-10.5); GFR AFRICAN-AMERICAN > 60; GFR NON-AFRICAN AMERICAN > 60
[2017-11-26] MEDS: Insulin Reg-HIGH-Coverage SC SCH ×2 (07:59→15:08)
[2017-11-26] MEDS ORDERED: levoFLOXacin 500 mg in D5W 500 MG/100 ML BAG IVPB STA (08:16)
--- NOTE | 2017-11-26 08:18 | PN ---
DATE: 11/26/2017 SUBJECTIVE: Patient is without shortness of breath. PHYSICAL EXAMINATION: VITAL SIGNS: Blood pressure 114/52, heart rate in the 80s. NECK: Negative JVD. LUNGS: Without rales. HEART: S1, S2. EXTREMITIES: Without edema. LABORATORY DATA: Hemoglobin is 10.9. Chemistries, BUN and creatinine unremarkable. IMPRESSION: 1. Recurrent abdominal pain. 2. Sinus tachycardia associated with abdominal pain. 3. Diabetes mellitus. 4. No chest pain. Given these findings, the patient's cardiac status is stable. The patient is for endoscopy today. Carter Farmer MD
--- NOTE | 2017-11-26 08:56 | DS ---
I saw her this morning. She is starting to finally feel better in the abdomen. She is still not able to eat. She is going for endoscopy this morning. I am hoping to discharge her this afternoon after she starts to eat again. She is on aspirin, Ativan, Carafate, Catapres patch, insulin coverage, MiraLax, Neurontin, Norvasc, Protonix, Prozac, Reglan, IV fluids, Ultram and Zofran. PHYSICAL EXAMINATION: VITAL SIGNS: Temperature 98.1, 89 pulse, 114/52 blood pressure, 20 respiratory rate, 93% O2 sat on room air. HEENT: Head is atraumatic, normocephalic. HEART: Regular rate. LUNGS: Decreased breath sounds, but clear. ABDOMEN: Soft, nontender. Positive bowel sounds. EXTREMITIES: She has got right but no edema. DATA: She has a 14.5 white count, 10.9 hemoglobin, 31.2 hematocrit with 219 platelets. Sodium 134; potassium 3.5, we will give her some potassium. BUN 11, creatinine 0.9. GFR is greater than 60. Sugar is 197. Calcium is 7.8, total bili is 0.2, AST is 15, ALT is 22, alkaline phosphatase 61, total protein is 4.6. I am not sure why the white count is elevated. I will start her on antibiotics. I will watch her closely. If she goes home later on today, I will do blood test on the outpatient, do house calls on her. This is a patient who had gastroparesis, diabetes, anxiety. She had urine, which was with multiple species contamination. Blood cultures were negative. Josafat Dent DO ANIVAL
[2017-11-26] MEDS ORDERED: Propofol 10 mg/ml Inj (20 ML) ONE (09:39)
--- NOTE | 2017-11-26 10:05 | CP.PCM.PN ---
Subjective - Date & Time of Evaluation Date of Evaluation: 11/26/17 Time of Evaluation: 10:03 - Subjective Subjective: Patient seen and examined. No acute events overnight, she is seen resting in bed comfortably. s/p EGD today showing bile gastritis, fundic polyps. Objective - Vital Signs/Intake and Output Vital Signs (last 24 hours): Temp Pulse Resp BP Pulse Ox 99.3 F 93 H 13 137/69 95 11/26/17 09:00 11/26/17 09:00 11/26/17 09:00 11/26/17 09:00 11/26/17 09:40 Intake and Output: 11/26/17 11/26/17 06:59 18:59 Intake Total 360 Balance 360 - Medications Medications: Current Medications Amlodipine Besylate (Norvasc) 10 mg PO DAILY [facility] Last Admin: 11/25/17 09:52 Dose: 10 mg Aspirin (Aspirin Chewable) 81 mg PO DAILY [facility] Last Admin: 11/25/17 09:53 Dose: 81 mg Clonidine HCl (Catapres-Tts2 0.2 Mg/24 Hr) 1 patch TD Q7D@1000 [facility] Last Admin: 11/25/17 09:53 Dose: 1 patch Fluoxetine HCl (Prozac) 40 mg PO DAILY [facility] Last Admin: 11/25/17 09:53 Dose: 40 mg Gabapentin (Neurontin) 300 mg PO TID [facility] PRN Reason: Protocol Last Admin: 11/25/17 17:30 Dose: 300 mg Sodium Chloride (Sodium Chloride 0.45%) 1,000 mls @ 30 mls/hr IV .Q24H [facility] Last Admin: 11/24/17 21:30 Dose: 30 mls/hr Potassium Chloride (Potassium Chloride 10 Meq/100 Ml) 10 meq in 100 mls @ 50 mls/hr IVPB ONCE ONE Stop: 11/26/17 10:16 Last Admin: 11/26/17 08:47 Dose: 50 mls/hr Insulin Human Regular (Humulin R High) 0 units SC ACHS [facility] PRN Reason: Protocol Last Admin: 11/26/17 07:59 Dose: Not Given Lorazepam (Ativan) 1 mg PO BID PRN; Protocol PRN Reason: Anxiety Last Admin: 11/23/17 08:16 Dose: 1 mg Metoclopramide HCl (Reglan) 10 mg IVP ACHS [facility] Last Admin: 11/26/17 08:30 Dose: 10 mg Ondansetron HCl (Zofran Inj) 4 mg IVP Q6H PRN PRN Reason: Nausea/Vomiting Last Admin: 11/24/17 12:25 Dose: 4 mg Pantoprazole Sodium (Protonix Inj) 40 mg IVP DAILY [facility] Last Admin: 11/25/17 09:52 Dose: 40 mg Polyethylene Glycol (Miralax) 17 gm PO DAILY [facility] Last Admin: 11/25/17 09:55 Dose: Not Given Sucralfate (Carafate Tab) 1 gm PO QID [facility] Last Admin: 11/25/17 21:34 Dose: 1 gm Tramadol HCl (Ultram) 50 mg PO TID PRN PRN Reason: Pain, severe (8-10) Last Admin: 11/25/17 21:40 Dose: 50 mg - Labs Labs: 11/26/17 06:00 11/26/17 06:00 Assessment and Plan - Assessment and Plan (Free Text) Assessment: Diabetes, uncontrolled Abdominal pain - gastroparesis s/p EGD today showing bile gastritis, fundic polyps Plan: - Advance diet to diabetic, small frequent meals throughout the day - Follow up EGD biopsy results - Continue with PPI therapy - Pro-motility therapy as per medical team - Consider use of questran if symptoms persist - No further planned GI intervention, will sign off case. Patient planned for hospital discharge today, will require outpatient endocrine follow up. Discussed with Dr. Dent.
[2017-11-26] MEDS ORDERED: Sodium Chloride 0.9% 1,000 ML IV SCH (10:15)
[2017-11-26 10:18] VITALS: O2SAT 98
[2017-11-26] MEDS: POLYETHYLENE GLYCOL 3350 17 GM/Dose PACKET PO SCH (11:05)
[2017-11-26 11:37] VITALS: BP 172/91
[2017-11-26 12:13] VITALS: PULSE 77; RESP 19; TEMP 98.7
== END 2017-11-26 16:53 | disposition home or self-care (01) | DRG 74 ==
LOC: ED 14:03 → ERH 18:26 → 2RNO 21:53 → OBSVTOIN 11-23 11:30
PROVIDERS: ADMIT Family Medicine; ATTEND Family Medicine
PROC: 0DB78ZX Excision of Stomach, Pylorus, Via Natural or Artificial Opening Endoscopic, Diagnostic (ICD-10-PCS; 2017-11-26)
PROC: 0DB68ZX Excision of Stomach, Via Natural or Artificial Opening Endoscopic, Diagnostic (ICD-10-PCS; principal; 2017-11-26 09:30)
PROC: 0DB98ZX Excision of Duodenum, Via Natural or Artificial Opening Endoscopic, Diagnostic (ICD-10-PCS; 2017-11-26 09:30)
DX: E10.43 Type 1 diabetes mellitus with diabetic autonomic (poly)neuropathy (principal); K31.84 Gastroparesis; J44.9 Chronic obstructive pulmonary disease, unspecified; E10.319 Type 1 diabetes mellitus with unspecified diabetic retinopathy without macular edema; I10 Essential (primary) hypertension; E10.51 Type 1 diabetes mellitus with diabetic peripheral angiopathy without gangrene; K21.9 Gastro-esophageal reflux disease without esophagitis; F41.9 Anxiety disorder, unspecified; E10.42 Type 1 diabetes mellitus with diabetic polyneuropathy; E10.65 Type 1 diabetes mellitus with hyperglycemia; I27.20 Pulmonary hypertension, unspecified; F32.9 Major depressive disorder, single episode, unspecified; K31.7 Polyp of stomach and duodenum; K29.60 Other gastritis without bleeding; E87.6 Hypokalemia; G89.29 Other chronic pain; I16.0 Hypertensive urgency; Z91.19 Patient's noncompliance with other medical treatment and regimen; Z86.73 Personal history of transient ischemic attack (TIA), and cerebral infarction without residual deficits; Z79.4 Long term (current) use of insulin; Z90.710 Acquired absence of both cervix and uterus; Z90.49 Acquired absence of other specified parts of digestive tract

== ENCOUNTER 2017-12-15 11:14 | Inpatient (IN) | payer BC, MEDICARE ==
[2017-12-15] MEDS ORDERED: Sodium Chloride 0.9% 1,000 ML IV STA (11:45)
[2017-12-15 11:53] LABS: BASO # 0.01 K/mm3 (0.0-2.0); BASO % 0.1 % (0.0-3.0); EOS % 0.1 % (1.5-5.0); GRAN # 15.77 (1.4-6.5); GRAN % 90.8 % (50.0-68.0); HEMOGLOBIN 13.9 g/dL (12.0-16.0); LYMPH # 0.8 (1.2-3.4); LYMPH % 4.4 % (22.0-35.0); MEAN CELL VOLUME 79.4 fl (80.0-105.0); MEAN CORPUSCULAR HEMOGLOBIN 28.7 pg (25.0-35.0); MEAN CORPUSCULAR HGB CONC 36.1 g/dl (31.0-37.0); MONO # 0.8 (0.1-0.6); MONO % 4.6 % (1.0-6.0); PLATELET COUNT 271 10^3/uL (120.0-450.0); RBC 4.85 10^6/uL (3.5-6.1); RED CELL DISTRIBUTION WIDTH 13.2 % (11.5-14.5); VENOUS BLOOD GAS BASE EXCESS 6.9 mmol/L (0.0-2.0); VENOUS BLOOD GAS PO2 154 mm/Hg (30-55); VENOUS BLOOD PH 7.43 (7.32-7.43); WHITE BLOOD COUNT 17.4 10^3/ul (4.5-11.0)
[2017-12-15] MEDS ORDERED: Iohexol 350 MG/100 ML VIAL ONE (11:59)
--- NOTE | 2017-12-15 12:07 | ED PDOC ---
Arrival/HPI <Abraham Delvalle DO - Last Filed: 12/15/17 15:29> - General Historian: Patient - History of Present Illness Time/Duration: 24 hours Symptom Course: Intermittent Activities at Onset: Light Context: Home <Luis Trimble - Last Filed: 12/15/17 21:48> - General Chief Complaint: Abdominal Pain Time Seen by Provider: 12/15/17 11:38 - History of Present Illness Narrative History of Present Illness (Text): 12/15/17 12:01 This is a 56 year old female with PMH of uncontrolled diabetes, diabetic neuropathy, diabetic gastroparesis, IBS and TIA presenting to the ER today for one day history of epigastric abdominal pain, vomiting and diarrhea. Patient states pain is a 10/10, non radiating and located in the epigastric region. Pain is aggravated when eating and is not relieved by anything. She has also NBNB vomit x7 and has associated nonbloody diarrhea. She admits to frequent episodes with similar pain symptoms. She has a history of cholecystectomy, hysterectomy and . She denies CP, SOB, fevers, headaches, urinary complaints, hematemisis, hematochezia, recent travel sick contacts at home and recent sickness. She is compliant with her medications. PMD is Dr. Dent (Luis Trimble) Past Medical History - Provider Review Nursing Documentation Reviewed: Yes - Past History Past History: No Previous - Infectious Disease Hx of Infectious Diseases: None - Tetanus Immunization Tetanus Immunization: Unknown - Reproductive Menopause: Yes - Cardiac Hx Pacemaker: No - Pulmonary Hx Chronic Obstructive Pulmonary Disease (COPD): Yes - Neurological HX Cerebrovascular Accident: Yes - HEENT Hx HEENT Disorder: Yes Hx Cataracts: Yes (bilateral sx) - Renal Hx Renal Disorder: No - Endocrine/Metabolic Hx Diabetes Mellitus Type 1: Yes - Hematological/Oncological Hx Blood Transfusions: Yes Hx Blood Transfusion Reaction: No - Integumentary Hx Dermatological Disorder: Yes Other/Comment: abcess - Musculoskeletal/Rheumatological Hx Musculoskeletal Disorders: Yes (neuropathy) - Gastrointestinal Hx Gastrointestinal Disorders: Yes Hx Gastroesophageal Reflux: Yes Other/Comment: Diabetic Gastroparesis - Genitourinary/Gynecological Hx Genitourinary Disorders: No - Psychiatric Hx Emotional Abuse: No Hx Substance Use: No - Surgical History Other/Comment: toes amputated from right foot - Anesthesia Hx Anesthesia Reactions: No Hx Malignant Hyperthermia: No - Suicidal Assessment Feels Threatened In Home Enviroment: No <Luis Trimble - Last Filed: 12/15/17 21:48> Family/Social History - Physician Review Nursing Documentation Reviewed: Yes Family/Social History: Unknown Family HX Smoking Status: Never Smoked Hx Alcohol Use: No Hx Substance Use: No Hx Substance Use Treatment: No <Luis Trimble - Last Filed: 12/15/17 21:48> Allergies/Home Meds <Abraham Delvalle DO - Last Filed: 12/15/17 15:29> <Luis Trimble - Last Filed: 12/15/17 21:48> Allergies/Adverse Reactions: Allergies Narcotic/Dilaudid/Morphine Adverse Reaction (Uncoded 11/23/17 18:09) SHORTNESS OF BREATH Home Medications: Home Meds Medication Instructions Recorded Confirmed Aspirin [Aspirin Chewable] 81 mg PO DAILY 07/31/17 12/15/17 Dicyclomine [Bentyl] 10 mg PO TID 07/31/17 12/15/17 Fluoxetine HCl [Prozac] 40 mg PO DAILY 07/31/17 12/15/17 Gabapentin [Neurontin] 300 mg PO TID 07/31/17 12/15/17 LORazepam [Ativan] 1 mg PO BID PRN 07/31/17 12/15/17 Metoclopramide [Reglan] 5 mg PO QID 07/31/17 12/15/17 Omeprazole 40 mg PO DAILY 07/31/17 12/15/17 Sucralfate [Carafate Tab] 1 gm PO QID 07/31/17 12/15/17 amLODIPine [Norvasc] 2.5 mg PO DAILY 07/31/17 12/15/17 Insulin Detemir [Levemir] 34 units SC HS 08/24/17 12/15/17 Insulin Lispro [humALOG] 0 units SC AC 11/13/17 12/15/17 traMADol [Ultram] 50 mg PO QID 11/13/17 12/15/17 Review of Systems - Physician Review All systems were reviewed & negative as marked: Yes - Review of Systems Constitutional: Normal. absent: Fevers Eyes: Normal. absent: Vision Changes ENT: Normal. absent: Hearing Changes Respiratory: Normal. absent: SOB, Cough Cardiovascular: Normal. absent: Chest Pain, Palpitations Gastrointestinal: Abdominal Pain, Nausea, Vomiting. absent: Constipation, Diarrhea, Hematochezia, Hematemesis Genitourinary Female: Normal. absent: Dysuria Musculoskeletal: Normal Skin: Normal Neurological: Normal. absent: Headache Hemo/Lymphatic: Normal <Luis Trimble - Last Filed: 12/15/17 21:48> Physical Exam Vital Signs Reviewed: Yes Temperature: Afebrile Blood Pressure: Hypertensive Pulse: Regular Respiratory Rate: Normal Appearance: Positive for: Well-Appearing, Non-Toxic, Comfortable Pain Distress: None Mental Status: Positive for: Alert and Oriented X 3 Finger Stick Blood Glucose: 382 - Systems Exam Head: Present: Atraumatic, Normocephalic Pupils: Present: PERRL Extroacular Muscles: Present: EOMI Conjunctiva: Present: Normal Mouth: Present: Moist Mucous Membranes Neck: Present: Normal Range of Motion Respiratory/Chest: Present: Clear to Auscultation, Good Air Exchange. No: Respiratory Distress, Accessory Muscle Use Cardiovascular: Present: Regular Rate and Rhythm, Normal S1, S2. No: Murmurs Abdomen: Present: Tenderness, Normal Bowel Sounds, Other (epigastric tenderness) . No: Distention, Peritoneal Signs, Rebound, Guarding, McBurney's Point Tender Back: Present: Normal Inspection Upper Extremity: Present: Normal Inspection. No: Cyanosis, Edema Lower Extremity: Present: Normal Inspection. No: Edema Neurological: Present: Speech Normal, Motor Func Grossly Intact, Normal Sensory Function Skin: Present: Warm, Dry, Normal Color. No: Rashes Psychiatric: Present: Alert, Normal Insight, Normal Concentration <Cristel Trimblekyree - Last Filed: 12/15/17 21:48> Vital Signs Temp Pulse Resp BP Pulse Ox 12/15/17 16:10 75 18 148/74 100 12/15/17 14:50 79 18 152/78 H 100 12/15/17 13:28 85 18 154/83 H 100 12/15/17 11:41 98.2 F 89 18 187/106 H 100 12/15/17 11:34 98.2 F 89 18 187/106 H 100 Medical Decision Making - Lab Interpretations I have reviewed the lab results: Yes <Abraham Delvalle DO - Last Filed: 12/15/17 15:29> <Luis Trimble - Last Filed: 12/15/17 21:48> ED Course and Treatment: 12/15/17 Patient Seen With Resident: In agreement with resident note which contains more details about the patient. Patient was seen and evaluated with resident. Came up with plan and treatment together. 12/15/17 13:55 Discussed case with , who is aware and agrees to admit patient to his service. (Abraham Delvalle DO) 12/15/17 12:10 Impression: This is a 56 year old female with PMH of uncontrolled diabetes, diabetic neuropathy, diabetic gastroparesis, IBS and TIA presenting to the ER today for one day history of epigastric abdominal pain, vomiting and diarrhea. Differential not limited to: Diabetic gastroparesis vs gastritis vs gastroenteritis Plan: Blood work, CT abdomen and VBG is pending. Toradol for pain. Progress: 12/15/17 14:20 Patient resting comfortably, vitals are stable and afebrile. Nausea and vomiting are improved. Potassium is low, will give K+. 12/15/17 15:11 CT abdomen: patchy infiltrates are seen in both lung bases, left greater than right. No acute intra abdominal findings. (Luis Trimble) - Lab Interpretations Lab Results: 12/15/17 11:35 12/15/17 13:00 Lab Results 12/15/17 13:00: Sodium 141, Chloride 95 L, Potassium 2.8 L*, Carbon Dioxide 31, Anion Gap 18, BUN 16, Creatinine 0.6 L, Est GFR ( Amer) > 60, Est GFR ( Non-Af Amer) > 60, Random Glucose 390 H* D, Calcium 8.7, Magnesium 1.5 L, Total Bilirubin 0.5, AST 21, ALT 24, Alkaline Phosphatase 79, Lactate Dehydrogenase 789 H, Total Creatine Kinase 144, Troponin I 0.03 D, Total Protein 6.0, Albumin 3.5, Globulin 2.4, Albumin/Globulin Ratio 1.5, Lipase 11 L 12/15/17 11:35: pO2 154 H, VBG pH 7.43, VBG pCO2 49.0, VBG HCO3 32.5 H, VBG Total CO2 34.0 H, VBG O2 Sat (Calc) 98.2 H, VBG Base Excess 6.9 H, VBG Potassium 3.7, Sodium 138.0, Chloride 96.0 L, Glucose 469 H* D, Lactate 1.7, FiO2 21.0, Venous Blood Potassium 3.7 12/15/17 11:35: WBC 17.4 H, RBC 4.85, Hgb 13.9 D, Hct 38.5, MCV 79.4 L, MCH 28.7, MCHC 36.1, RDW 13.2, Plt Count 271, MPV 10.0, Gran % 90.8 H, Lymph % (Auto ) 4.4 L, [place] % (Auto) 4.6, Eos % (Auto) 0.1 L, Baso % (Auto) 0.1, Gran # 15.77 H, Lymph # (Auto) 0.8 L, [place] # (Auto) 0.8 H, Eos # (Auto) 0.0, Baso # (Auto) 0.01, Neutrophils % (Manual) 87 H, Band Neutrophils % 1, Lymphocytes % (Manual) 10 L, Atypical Lymphs % 1 H, Monocytes % (Manual) 1, Platelet Evaluation Normal - RAD Interpretation Radiology Orders: 12/15/17 11:46 ABD & PELVIS IV CONTRAST ONLY [CT] Stat - Medication Orders Current Medication Orders: Acetaminophen (Tylenol 650 Mg Supp) 650 mg RC Q4H PRN PRN Reason: Fever >100.4 F Acetaminophen (Tylenol 650 Mg Supp) 650 mg RC Q4H PRN PRN Reason: Pain, moderate (4-7) Albuterol/Ipratropium (Duoneb 3 Mg/0.5 Mg (3 Ml) Ud) 3 ml IH [id number] [facility] Last Admin: 12/15/17 20:10 Dose: 3 ml Amlodipine Besylate (Norvasc) 2.5 mg PO DAILY [facility] Aspirin (Aspirin Chewable) 81 mg PO DAILY [facility] Dicyclomine HCl (Bentyl) 10 mg PO TID [facility] Last Admin: 12/15/17 18:25 Dose: 10 mg Fluoxetine HCl (Prozac) 40 mg PO DAILY [facility] Gabapentin (Neurontin) 300 mg PO TID [facility] PRN Reason: Protocol Last Admin: 12/15/17 18:24 Dose: 300 mg Behavioural Document 12/15/17 18:24 RV (Rec: 12/15/17 18:25 RV [facility] Maintenance Maintenance Dose Yes Nonmedicinal Nonmedicinal Interventions Redirect Therapeutic Communication Behavior Behavior for Medication: Anxiety Sodium Chloride (Sodium Chloride 0.45%) 1,000 mls @ 60 mls/hr IV .[id number] PATTI Last Admin: 12/15/17 18:52 Dose: 60 mls/hr eMAR Start Stop Document 12/15/17 18:52 RV (Rec: 12/15/17 18:52 RV [id number]) Intravenous Solution Start Date 12/15/17 Start Time 18:52 Ciprofloxacin (Cipro 400mg/200ml Dsw) 400 mg in 200 mls @ 133.3 mls/hr IVPB Q12 PATTI PRN Reason: Protocol Stop: 12/15/17 23:31 Metronidazole (Flagyl) 500 mg in 100 mls @ 100 mls/hr IVPB Q8 PATTI PRN Reason: Protocol Insulin Human Regular (Humulin R Med) 0 units SC ACHS PATTI PRN Reason: Protocol Ketorolac Tromethamine (Toradol) 30 mg IVP Q6 PRN PRN Reason: Pain, severe (8-10) Last Admin: 12/15/17 16:50 Dose: 30 mg [facility] Pain Assessment Document 12/15/17 16:50 RV (Rec: 12/15/17 16:50 RV [email or web address] Pain Reassessment Is this a pain reassessment? No Sleep Is patient sleeping during reassessment? No Presence of Pain Presence of Pain Yes Pain Scale Used Pain Scale Used Numeric Location Left, Right or Bilateral Bilateral Pain Location Body Site Abdomen Description Description Constant Intensity of Pain at present 10 Pain Behavior Moaning Irritability Aggravating Factors ADL's Changing Position Alleviating Factors/Management Medication Techniques Alleviating Factors Medication IVP Administration Document 12/15/17 16:50 RV (Rec: 12/15/17 16:50 RV [email or web address]) Charges for Administration # of IVP Administrations 1 Re-Assess: FABIO Pain Assessment Document 12/15/17 17:50 RV (Rec: 12/15/17 18:53 RV [id number]) Pain Reassessment Is this a pain reassessment? Yes Sleep Is patient sleeping during reassessment? Yes Lorazepam (Ativan) 1 mg PO BID PRN; Protocol PRN Reason: Anxiety Metoclopramide HCl (Reglan) 10 mg IVP ACHS PATTI Ondansetron HCl (Zofran Inj) 4 mg IVP Q6H PRN PRN Reason: Nausea/Vomiting Last Admin: 12/15/17 17:30 Dose: 4 mg IVP Administration Document 12/15/17 17:30 RV (Rec: 12/15/17 18:24 RV [facility] Charges for Administration # of IVP Administrations 1 Pantoprazole Sodium (Protonix Inj) 40 mg IVP Q12 [facility] Sucralfate (Carafate Tab) 1 gm PO QID PATTI Last Admin: 12/15/17 18:24 Dose: 1 gm Discontinued Medications Famotidine (Pepcid) 20 mg IVP STAT STA Stop: 12/15/17 11:46 Last Admin: 12/15/17 12:18 Dose: 20 mg IVP Administration Document 12/15/17 12:18 EQ (Rec: 12/15/17 12:18 EQ [email or web address] Charges for Administration # of IVP Administrations 1 Sodium Chloride (Sodium Chloride 0.9%) 1,000 mls @ 1,000 mls/hr IV .Q1H STA Stop: 12/15/17 12:44 Last Admin: 12/15/17 12:17 Dose: 1,000 mls/hr eMAR Start Stop Document 12/15/17 12:17 EQ (Rec: 12/15/17 12:18 EQ [email or web address] Intravenous Solution Start Date 12/15/17 Start Time 12:17 Potassium Chloride (Potassium Chloride 10 Meq/100 Ml) 10 meq in 100 mls @ 50 mls/hr IVPB Q2H PATTI Stop: 12/15/17 17:59 Last Admin: 12/15/17 16:59 Dose: 50 mls/hr eMAR Start Stop Document 12/15/17 16:59 RV (Rec: 12/15/17 17:12 RV [facility] Intravenous Solution Start Date 12/15/17 Start Time 17:12 End Date 12/15/17 End time 19:12 Total Infusion Time 120 Ciprofloxacin (Cipro 400mg/200ml Dsw) 400 mg in 200 mls @ 133.3 mls/hr IVPB STAT STA PRN Reason: Protocol Stop: 12/15/17 16:45 Last Admin: 12/15/17 15:33 Dose: 133.3 mls/hr eMAR Start Stop Document 12/15/17 15:33 EQ (Rec: 12/15/17 15:34 EQ [email or web address]) Intravenous Solution Start Date 12/15/17 Start Time 15:34 Metronidazole (Flagyl) 500 mg in 100 mls @ 100 mls/hr IVPB STAT STA PRN Reason: Protocol Stop: 12/15/17 16:14 Last Admin: 12/15/17 16:51 Dose: 100 mls/hr eMAR Start Stop Document 12/15/17 16:51 RV (Rec: 12/15/17 16:51 RV [email or web address] Intravenous Solution Start Date 12/15/17 Start Time 16:51 End Date 12/15/17 End time 17:51 Total Infusion Time 60 Insulin Human Regular (Humulin R) 6 units IVP STAT STA Stop: 12/15/17 14:18 Last Admin: 12/15/17 15:33 Dose: 6 unit MAR Blood Glucose Document 12/15/17 15:33 EQ (Rec: 12/15/17 15:33 EQ [email or web address]) Blood Glucose Finger Stick Blood Glucose (70-120) 344 IVP Administration Document 12/15/17 15:33 EQ (Rec: 12/15/17 15:33 EQ [email or web address]) Charges for Administration # of IVP Administrations 1 Ketorolac Tromethamine (Toradol) 15 mg IVP STAT STA Stop: 12/15/17 12:00 Last Admin: 12/15/17 12:18 Dose: 15 mg MAR Pain Assessment Document 12/15/17 12:18 EQ (Rec: 12/15/17 12:18 EQ [email or web address] Pain Reassessment Is this a pain reassessment? No Sleep Is patient sleeping during reassessment? No Presence of Pain Presence of Pain Yes IVP Administration Document 12/15/17 12:18 EQ (Rec: 12/15/17 12:18 EQ [email or web address]) Charges for Administration # of IVP Administrations 1 Ondansetron HCl (Zofran Inj) 8 mg IVP STAT STA Stop: 12/15/17 11:46 Last Admin: 12/15/17 12:18 Dose: 8 mg IVP Administration Document 12/15/17 12:18 EQ (Rec: 12/15/17 12:18 EQ [email or web address]) Charges for Administration # of IVP Administrations 1 Ondansetron HCl (Zofran Inj) 4 mg IVP Q4H PRN PRN Reason: Nausea/Vomiting Pneumococcal Polyvalent Vaccine (Pneumovax 23 Vaccine) 0.5 ml IM .ONCE ONE Stop: 12/15/17 19:41 Potassium Chloride (K-Dur 20 Meq Er Tab) 40 meq PO STAT STA Stop: 12/15/17 13:56 Last Admin: 12/15/17 14:45 Dose: 40 meq - PA / [employer] ROOM SUPERVISOR / Resident Statement / has reviewed & agrees with the documentation as recorded. / has examined the patient and agrees with the treatment plan. <Luis Trimble - Last Filed: 12/15/17 21:48> Disposition/Present on Arrival <Abraham Delvalle DO - Last Filed: 12/15/17 15:29> - Present on Arrival Any Indicators Present on Arrival: Yes History of DVT/PE: No History of Uncontrolled Diabetes: Yes Urinary Catheter: No History of Decub. Ulcer: No History Surgical Site Infection Following: None - Disposition Have Diagnosis and Disposition been Completed?: Yes Disposition Time: 16:00 <Luis Trimble - Last Filed: 12/15/17 21:48> - Disposition Diagnosis: Diabetes, Diabetic gastroparesis Disposition: HOSPITALIZED Patient Problems: Current Active Problems Problem Status Onset Diabetic gastroparesis Acute Diabetes Chronic Condition: FAIR
[2017-12-15 12:10] LABS: ATYPICAL LYMPHOCYTE 1 % (0.0-0.0); BAND 1 % (0-2); LYMPHOCYTE 10 % (22.0-35.0); MONOCYTE 1 % (1.0-6.0); NEUTROPHIL 87 % (50.0-70.0)
[2017-12-15 12:11] LABS: PLATELET ESTIMATE NORMAL (NORMAL)
[2017-12-15 13:48] LABS: BLOOD UREA NITROGEN 16 mg/dL (7-21); GFR AFRICAN-AMERICAN > 60; GFR NON-AFRICAN AMERICAN > 60
[2017-12-15 13:49] LABS: ALB/GLOB RATIO 1.5 (1.1-1.8); ALBUMIN 3.5 g/dL (3.0-4.8); ALT/SGPT 24 U/L (7-56); AST/SGOT 21 U/L (14-36); CALCIUM 8.7 mg/dL (8.4-10.5); LIPASE 11 U/L (23-300)
[2017-12-15 13:50] LABS: TROPONIN I 0.03 ng/mL
[2017-12-15] MEDS ORDERED: Potassium Chloride 20 mEq ER Tab PO STA (13:55)
[2017-12-15] MEDS ORDERED: Insulin Regular 1 UNITS/0.01 ML ML IVP STA (14:17)
--- NOTE | 2017-12-15 14:33 | CT ---
Date of service: 12/15/2017 PROCEDURE: CT Abdomen and Pelvis with contrast HISTORY: diffuse abdominal pain/tenderness COMPARISON: None. TECHNIQUE: Contrast dose: 100 cc of Omni 350 Radiation dose: Total exam DLP = 235 mGy-cm. This CT exam was performed using one or more of the following dose reduction techniques: Automated exposure control, adjustment of the mA and/or kV according to patient size, and/or use of iterative reconstruction technique. FINDINGS: LOWER THORAX: Patchy infiltrates are seen in both lung bases left greater than right LIVER: Unremarkable. No gross lesion or ductal dilatation. GALLBLADDER AND BILE DUCTS: Unremarkable. PANCREAS: Unremarkable. No gross lesion or ductal dilatation. SPLEEN: Unremarkable. ADRENALS: Unremarkable. No mass. KIDNEYS AND URETERS: Unremarkable. No hydronephrosis. No solid mass. VASCULATURE: Unremarkable. No aortic aneurysm. BOWEL: Unremarkable. No obstruction. No gross mural thickening. There is a small defect in the anterior abdominal wall without herniation of bowel loops. APPENDIX: Normal appendix. PERITONEUM: Unremarkable. No free fluid. No free air. LYMPH NODES: Unremarkable. No enlarged lymph nodes. BLADDER: The bladder is distended extending up to the level of the iliac crests REPRODUCTIVE: Unremarkable. BONES: No acute fracture. OTHER FINDINGS: None. IMPRESSION: No acute intra-abdominal findings Patchy infiltrates are seen in both lung bases left greater than right
[2017-12-15] MEDS ORDERED: metroNIDAZOLE IV 500 mg/100 ml 500 MG/100 ML BAG IVPB STA (15:15)
[2017-12-15] MEDS ORDERED: Ciprofloxacin 400mg/200ml D5W 400 MG/200 ML BAG IVPB STA (15:15)
--- NOTE | 2017-12-15 16:59 | CARD ---
APPROVED REPORT Date of service: 12/15/2017 EKG Measurement Heart [id number] <Conclusion> Sinus rhythm with premature atrial complexes Left ventricular hypertrophy with repolarization abnormality Prolonged QT Abnormal ECG
[2017-12-15 17:25] LABS: URINE BILIRUBIN NEGATIVE (NEGATIVE); URINE BLOOD MODERATE (NEGATIVE); URINE GLUCOSE (UA) >=1000 mg/dL (NEGATIVE); URINE LEUKOCYTE ESTERASE NEGATIVE Leu/uL (NEGATIVE); URINE PROTEIN >=300 mg/dL (<30 mg/dL); URINE UROBILINOGEN 0.2 E.U./dL (<1 E.U./dL)
[2017-12-15 17:26] LABS: URINE APPEARANCE SL CLOUDY (CLEAR); URINE COLOR YELLOW (YELLOW)
[2017-12-15 17:36] LABS: URINE BACTERIA MOD (NEG); URINE RBC 15 - 20 /hpf (0-2)
[2017-12-15] MEDS: Sodium Chloride 0.45% 1,000 ML IV SCH (18:52)
[2017-12-15] MEDS ORDERED: Pneumococcal 23-Valent Vaccine IM ONE (19:40)
[2017-12-15] MEDS: Albuterol-Ipratrop 3 mg / 0.5 (3 ml) UD IH SCH (20:10)
[2017-12-15] MEDS: Insulin Reg-MEDIUM-Coverage SC SCH (21:43)
[2017-12-15] MEDS ORDERED: Ciprofloxacin 400mg/200ml D5W 400 MG/200 ML BAG IVPB SCH (22:00)
[2017-12-15] MEDS ORDERED: metroNIDAZOLE IV 500 mg/100 ml 500 MG/100 ML BAG IVPB SCH (22:00)
[2017-12-16] MEDS: Albuterol-Ipratrop 3 mg / 0.5 (3 ml) UD IH SCH ×4 (01:56→19:32)
--- NOTE | 2017-12-16 02:28 | HP ---
HISTORY OF PRESENT ILLNESS: I was called to see her. She is a house call patient of [facility]. She is 56-year-old female, who has had multiple admissions for gastroparesis and diabetic neuropathy and uncontrolled diabetes and she is back again. A 56-year-old with epigastric abdominal pain, vomiting, diarrhea, nauseousness, severe cramping abdominal pain, cannot keep anything down. She has been doing this for a long time now and it has gotten worse over the past week despite what she did at home and now she is back in the hospital. PAST MEDICAL HISTORY: She has a past medical history of uncontrolled diabetes, diabetic neuropathy, diabetic gastroparesis, irritable bowel syndrome, TIA. She has had nausea and vomiting issues, epigastric pain. She has had a cholecystectomy, hysterectomy, a . She had a transmet of her foot. She has COPD, CVA, history of bilateral cataracts, diabetes. She has had transfusions in the past. She has had abscesses, neuropathy, GERD, ulcers. She has had toes amputated from the right foot. She had a transmet. FAMILY HISTORY: Diabetes in the family. SOCIAL HISTORY: She never smoked. No alcohol. No drugs. ALLERGIES: SHE HAS ALLERGIES TO DILAUDID AND MORPHINE. MEDICATIONS: She is on aspirin, Bentyl, Prozac, Neurontin, Ativan, Reglan, omeprazole, Carafate, Norvasc, Levemir, Humalog and Ultram. REVIEW OF SYSTEMS: No fevers. No acute vision or hearing changes. No shortness of breath or cough. No chest pain or palpitations. Severe abdominal pain, cramping, nausea, vomiting, diarrhea. Cannot get comfortable. No problems urinating. No leg pains. No skin issues that she knows of. No headache. She is very stressed out, very anxious about the situation. PHYSICAL EXAMINATION: VITAL SIGNS: She has 98.2 temperature, 89 pulse, 18 respiratory rate, 187/106 blood pressure, 100% O2 sat on room air. HEENT: Head is atraumatic, normocephalic. Extraocular muscles are intact. Pupils reactive to light. Throat is moist. NECK: Supple. Thyroid midline. No palpable appreciable lymphadenopathy. HEART: Regular rate. Normal S1, S2. LUNGS: Decreased breath sounds but clear to auscultation. ABDOMEN: Got tenderness diffusely throughout the abdomen. Epigastric tenderness, mild discomfort, but no guarding or rebound. Decreased bowel sounds. EXTREMITIES: No edema, right transmet. No back pain. SKIN: For the most part is intact. No apparent rashes or ulcers. NEUROLOGIC: Alert and oriented x3. She had a chest x-ray and patchy infiltrates in both lungs, so a CAT scan of the abdomen and pelvis which showed patchy infiltrates in both lungs, which is sort of new for her. LABORATORY DATA: She has a 17.4 white count, 30.9 hemoglobin, 13.5 hematocrit with 271 platelets. Her sodium is 141, chloride 95, potassium is 2.8. We are going to replace the potassium. Creatinine 0.6, BUN 16, GFR is greater than 60, sugar is 390. She will be on coverage. She has AST of 21, total bili is 0.5, alk phos is 79, lactate dehydrogenase is 789, total creatinine kinase 144. Troponin I is 0.03. ASSESSMENT AND PLAN: She is very uncomfortable, not feeling well. She will be put on Cipro IV, Toradol IV, Flagyl IV, DuoNebs, Reglan IV, Protonix IV, Zofran IV, oxygen nebulizers, potassium replacements. To have labs tomorrow. She is n.p.o. Hopefully, she will improve. Multiple consults with Pulmonary, Infectious Disease, GI and Endocrinology. She is with bilateral pneumonia, abdominal pain, gastroparesis, leukocytosis and blood sugars out of control. Josafat Dent DO
--- NOTE | 2017-12-16 04:13 | CON ---
DATE: 12/15/2017 ENDOCRINOLOGY CONSULTATION LOCATION: Room 368. HISTORY OF PRESENT ILLNESS: This is a 56-year-old female with known history of type 1 insulin-dependent diabetes, presenting here with intractable vomiting episodes and supervening nausea, dyspepsia, severe epigastric pain with subsequent loose watery diarrhea, and is now being referred for diabetic evaluation and management. PAST MEDICAL HISTORY: As mentioned above, history of type 1 insulin-dependent diabetes, currently on a combination of Levemir taken as 34 units subcu at bedtime daily with Humalog given as sliding scale coverage per meals. History of hypertension and dyslipidemia, history of diabetic retinopathy and polyneuropathy. History of diabetic gastroparesis and recurrent admissions for exacerbations of the same, history of a previous TIA and cerebrovascular disease with no residual weakness at this time. History of chronic obstructive lung disease. 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 FAMILY HISTORY: Positive for diabetes and hypertension. SOCIAL HISTORY: Patient has a supportive family. No known substance use. REVIEW OF SYSTEMS: As mentioned above, admits to generalized body weakness with progressive bouts of dizziness and lightheadedness, worse on the day of admission. Also admits to bifrontal headaches with visual blurring. Moreover, admits to generalized body weakness with increasing somnolence and suboptimal energy level. No chest pains or palpitations, but admits to occasional shortness of breath, especially on exertion. Her oral intake has been variable and suboptimal with sudden onset of nausea, dyspepsia, and supervening intractable vomiting episodes and loose watery diarrhea. She also has severe epigastric pain, worse in the last few hours prior to admission as noted. She also admits to marked polyuria, nocturia, and polydipsia with lower extremity painful paresthesias. PHYSICAL EXAMINATION: GENERAL: This is an average-built female in no apparent distress. VITAL SIGNS: With a blood pressure of 140/80, pulse of 100 beats per minute, regular, temperature 98, respirations 20, height is 5 feet 2 inches, weight is 140 pounds. HEENT: Head: Normocephalic. Eyes: Anicteric with pink conjunctivae. Funduscopy is not possible at this time. Ears, nose and throat: Otherwise normal. NECK: Supple. Thyroid gland is normal in size. No carotid bruits or cervical adenopathy. CARDIOPULMONARY: Some adynamic precordium. S1, S2 is rapid and regular. LUNGS: Clear to auscultation. ABDOMEN: Flat, soft with positive bowel sounds. EXTREMITIES: No peripheral edema. Pulses are +2 bilaterally. LABORATORY DATA: Hematology: WBC 17.4, hemoglobin of 13.9, hematocrit of 38.5, MCV 79.4, platelets 271. Her chemistries showed a BUN of 15, sodium 141, potassium 2.8, chloride 95, CO2 of 31, glucose 390, and creatinine 0.6. Her lipase level is 11, albumin is 3.5. LDH is 789. ASSESSMENT This is a 56-year-old female with uncontrolled and decompensated type 1 insulin-dependent diabetes, presenting here with severe epigastric pain and supervening nausea, dyspepsia, and intractable vomiting episodes with subsequent loose watery diarrhea and is now being referred for diabetic evaluation and management. The patient at this time is n.p.o. PLAN OF MANAGEMENT: The patient at this time has been kept n.p.o., so we will continue the current regular insulin coverage scale as ordered. We will also add basal insulin if hyperglycemic levels persist as indicated. We will continue her IV hydration and potassium supplementation as given at this time. We will obtain serial chemistries and supplement accordingly needed. As her oral intake is advanced, then we will switch her over to a more physiologic basal and bolus insulin drug combination with Levemir given at bedtime and Humalog given t.i.d. before each meal as indicated. We will obtain a hemoglobin A1c to confirm her prior glycemic control and baseline thyroid function studies and a serum cortisol level will be obtained. We will obtain serial chemistries and supplement accordingly as needed. We will follow this. Tita Coe MD
[2017-12-16] MEDS: Piperacillin/Tazobact 2.25gm 2.25 GM/100 ML BAG IVPB SCH ×3 (05:21→21:50)
[2017-12-16 06:38] LABS: BASO # 0.01 K/mm3 (0.0-2.0); BASO % 0.1 % (0.0-3.0); GRAN # 9.18 (1.4-6.5); GRAN % 84.9 % (50.0-68.0); HEMOGLOBIN 9.3 g/dL (12.0-16.0); LYMPH # 1.2 (1.2-3.4); MEAN CELL VOLUME 82.1 fl (80.0-105.0); MEAN CORPUSCULAR HEMOGLOBIN 27.8 pg (25.0-35.0); MEAN CORPUSCULAR HGB CONC 33.8 g/dl (31.0-37.0); MONO # 0.4 (0.1-0.6); RBC 3.35 10^6/uL (3.5-6.1); RED CELL DISTRIBUTION WIDTH 13.8 % (11.5-14.5); WHITE BLOOD COUNT 10.8 10^3/ul (4.5-11.0)
[2017-12-16 06:48] LABS: ALB/GLOB RATIO 1.2 (1.1-1.8); ALBUMIN 2.6 g/dL (3.0-4.8); CALCIUM 7.9 mg/dL (8.4-10.5)
[2017-12-16] MEDS: Insulin Reg-MEDIUM-Coverage SC SCH ×4 (07:59→23:57)
[2017-12-16 09:08] LABS: BASO # 0.01 K/mm3 (0.0-2.0); BASO % 0.1 % (0.0-3.0); GRAN # 10.33 (1.4-6.5); GRAN % 88.3 % (50.0-68.0); HEMOGLOBIN 10.2 g/dL (12.0-16.0); LYMPH # 1.1 (1.2-3.4); MEAN CELL VOLUME 81.7 fl (80.0-105.0); MEAN CORPUSCULAR HEMOGLOBIN 27.9 pg (25.0-35.0); MEAN CORPUSCULAR HGB CONC 34.1 g/dl (31.0-37.0); MEAN PLATELET VOLUME 9.1 fl (7.0-11.0); MONO # 0.3 (0.1-0.6); MONO % 2.6 % (1.0-6.0); RBC 3.66 10^6/uL (3.5-6.1); RED CELL DISTRIBUTION WIDTH 13.7 % (11.5-14.5); WHITE BLOOD COUNT 11.7 10^3/ul (4.5-11.0)
[2017-12-16] MEDS: Sodium Chloride 0.45% 1,000 ML IV SCH (09:22)
[2017-12-16] MEDS ORDERED: Non Formulary Medication (Fluoxetine Hcl [Prozac] 40 MG) PO SCH (10:00)
--- NOTE | 2017-12-16 10:07 | CON ---
DATE: 12/16/2017 PULMONARY CONSULTATION HISTORY: The patient is lying in bed, complaining of horrible abdominal pain. She is writhing. She has received analgesics, but due to allergies, she has not received sufficient medication. We will discuss this problem with her attending and the nurse at the bedside. The patient was admitted with epigastric abdominal pain, vomiting, diarrhea and nausea. She denies any respiratory distress, cough or expectoration, but she does carry a diagnosis of chronic obstructive pulmonary disease. Her outpatient medications do not include any inhaled bronchodilators or corticosteroids. PAST MEDICAL HISTORY: Includes COPD, CVA, cataracts and severe diabetes mellitus. She had a cholecystectomy in the past and a hysterectomy. She has uncontrolled diabetes with diabetic retinopathy and diabetic gastroparesis. She also has a history of GERD and amputations of toes from her right foot. FAMILY HISTORY: Diabetes, coronary artery disease, chronic obstructive pulmonary disease. SOCIAL HISTORY: No history of smoking. No occupational exposure. No travel history. No illicit drugs. ALLERGIES: DILAUDID AND MORPHINE. MEDICATIONS AT HOME: Include Bentyl, Prozac, Neurontin, Reglan, omeprazole, Carafate, Norvasc, Levemir, Humalog and Ultram. REVIEW OF SYSTEMS: Have been gleaned from the chart is the patient is in no condition to discuss further history with me. There are no new findings other than that described above. All other systems negative. PHYSICAL EXAMINATION: GENERAL: The patient is writhing in pain, holding her abdomen. There is no respiratory distress, however. VITAL SIGNS: Show that she is afebrile, pulse is 100, respiratory rate 20, blood pressure 180/90, her oxygenation is 100% on room air. HEENT: Normocephalic, atraumatic. PERRLA, EOMs full. Conjunctivae pink. NECK: Supple. No JVD. No lymphadenopathy. HEART: Regular rhythm. S1, S2 without murmur, gallop or rub. CHEST: Essentially clear to percussion and auscultation. Minimal rales and rhonchi are heard intermittently. ABDOMEN: Extremely tender, diffuse. The patient is holding her belly, crying out for help. EXTREMITIES: Reveal no clubbing, cyanosis or edema. There is no Homans' sign. SKIN: Moist. No rash or excoriation. NEUROLOGIC: Awake and alert. Unable to do a complete neurologic exam due to the patient's pain. Chest x-ray shows patchy infiltrates in both lungs. LABORATORY STUDY: Shows a white count of 17,000, hemoglobin 13, hematocrit 27. Sodium 141, creatinine 0.6, blood sugar 390. EKG: Sinus rhythm, nonspecific ST-T wave changes. ASSESSMENT: 1. Pulmonary infiltrates. 2. Questionable chronic obstructive pulmonary disease. 3. Abdominal pain. 4. Rule out aspiration from nausea and vomiting. 5. Uncontrolled diabetes mellitus. 6. Abdominal problems that need further GI evaluation. PLAN: Treatment with antibiotics for bilateral pneumonia. Initiate bronchodilator therapy. Await GI evaluation. The patient should have further analgesics. Should be discussed with PMD and GI/Surgery. In the end, aspiration must be considered at a workup for this when the patient is more stable is in order. Thank you for the opportunity to evaluate this young lady. Armando Freeman MD MTDD
--- NOTE | 2017-12-16 10:15 | CP.PCM.CON ---
<GeronimoikeRoselynrobert - Last Filed: 12/16/17 10:24> History of Present Illness - History of Present Illness History of Present Illness: PGY-4 GI Fellow Consult Note 56 yo WF with DM (uncontrolled, c/b gastroparesis, neuropathy), IBS, GERD (LA-B Esophagitis), COPD, CVA presenting with abd pain, N/V. She states that she struggles with chronic abd pain and N/V but states that symptoms have been worse over the last week of so. Pain described as crampy, non-radiating associated with NB/NB emesis. State she does has some loose stools recently but attributes that to not taking much PO. Prior to this recent exacerbation, she reports normal, formed, brown stools. She denies any fevers, chills, CP, SOB, LE edema. 12 point ROS negative other than stated above PMHx: See HPI PSHx: Right hemicolectomy with ileocolonic anastamosis for benign tumor (~20 years ago), cholecystectomy, appendectomy, hysterectomy, , hernia repair, right transmetatarsal amputation, I&D right thigh abscess FHx: Mother - gastric cancer; Sister - Crohn's disease Social: Denies tobacco, EtOH or illicit drug use Endo: States outpatient Colon in July 2016, outpatient EGD in July 2017 with outside GI physician - unremarkable 01/2017 - EGD - LA Class B esophagitis, erosive gastritis, retained fluid in gastric body suggestive of gastroparesis 10/2017 - EGD - Gastric Polyps (fundic gland polyp w/benign small bowel mucosa), Diffuse Mod Gastritis (H pylori negative) Past Patient History - Infectious Disease Hx of Infectious Diseases: None - Tetanus Immunizations Tetanus Immunization: Unknown - Past Social History Smoking Status: Never Smoked - CARDIAC Hx Pacemaker: No - PULMONARY Hx Chronic Obstructive Pulmonary Disease (COPD): Yes - NEUROLOGICAL HX Cerebrovascular Accident: Yes - HEENT Hx HEENT Problems: Yes Hx Cataracts: Yes (bilateral sx) - RENAL Hx Chronic Kidney Disease: No - ENDOCRINE/METABOLIC Hx Diabetes Mellitus Type 1: Yes - HEMATOLOGICAL/ONCOLOGICAL Hx Blood Transfusions: Yes Hx Blood Transfusion Reaction: No - INTEGUMENTARY Hx Dermatological Problems: Yes Other/Comment: abcess - MUSCULOSKELETAL/RHEUMATOLOGICAL Hx Musculoskeletal Disorders: Yes (neuropathy) - GASTROINTESTINAL Hx Gastrointestinal Disorders: Yes Hx Gastroesophageal Reflux: Yes Other/Comment: Diabetic Gastroparesis - GENITOURINARY/GYNECOLOGICAL Hx Genitourinary Disorders: No - PSYCHIATRIC Hx Emotional Abuse: No Hx Substance Use: No - SURGICAL HISTORY Other/Comment: toes amputated from right foot - ANESTHESIA Hx Anesthesia Reactions: No Hx Malignant Hyperthermia: No Meds Allergies/Adverse Reactions: Allergies Allergy/AdvReac Type Severity Reaction Status Date / Time Narcotic/Dilaudid/Morphine AdvReac SHORTNESS Uncoded 11/23/17 18:09 OF BREATH - Medications Medications: Current Medications Acetaminophen (Tylenol 650 Mg Supp) 650 mg RC Q4H PRN PRN Reason: Fever >100.4 F Acetaminophen (Tylenol 650 Mg Supp) 650 mg RC Q4H PRN PRN Reason: Pain, moderate (4-7) Albuterol/Ipratropium (Duoneb 3 Mg/0.5 Mg (3 Ml) Ud) 3 ml IH [id number] [facility] Last Admin: 12/16/17 08:07 Dose: 3 ml Amlodipine Besylate (Norvasc) 2.5 mg PO DAILY [facility] Last Admin: 12/16/17 09:19 Dose: 2.5 mg Aspirin (Aspirin Chewable) 81 mg PO DAILY [facility] Last Admin: 12/16/17 09:18 Dose: 81 mg Dicyclomine HCl (Bentyl) 10 mg PO TID [facility] Last Admin: 12/16/17 09:18 Dose: 10 mg Fluoxetine HCl (Prozac) 40 mg PO DAILY [facility] Last Admin: 12/16/17 09:20 Dose: 40 mg Gabapentin (Neurontin) 300 mg PO TID [facility] PRN Reason: Protocol Last Admin: 12/16/17 09:18 Dose: 300 mg Sodium Chloride (Sodium Chloride 0.45%) 1,000 mls @ 60 mls/hr IV .[id number] [facility] Last Admin: 12/16/17 09:22 Dose: 60 mls/hr Piperacillin Sod/Tazobactam Sod (Zosyn 2.25 Gm In 0.9% 100 Ml) 2.25 gm in 100 mls @ 100 mls/hr IVPB Q8 [facility] PRN Reason: Protocol Stop: 12/23/17 06:01 Last Admin: 12/16/17 05:21 Dose: 100 mls/hr Insulin Human Regular (Humulin R Med) 0 units SC ACHS [facility] PRN Reason: Protocol Last Admin: 12/16/17 07:59 Dose: 7 units Ketorolac Tromethamine (Toradol) 30 mg IVP Q6 PRN PRN Reason: Pain, severe (8-10) Last Admin: 12/16/17 07:54 Dose: 30 mg Lorazepam (Ativan) 1 mg PO BID PRN; Protocol PRN Reason: Anxiety Last Admin: 12/16/17 08:50 Dose: 1 mg Metoclopramide HCl (Reglan) 10 mg IVP ACHS [facility] Last Admin: 12/16/17 09:21 Dose: 10 mg Ondansetron HCl (Zofran Inj) 4 mg IVP Q6H PRN PRN Reason: Nausea/Vomiting Last Admin: 12/15/17 17:30 Dose: 4 mg Pantoprazole Sodium (Protonix Inj) 40 mg IVP Q12 [facility] Last Admin: 12/16/17 09:20 Dose: 40 mg Sucralfate (Carafate Tab) 1 gm PO QID [facility] Last Admin: 12/16/17 09:18 Dose: 1 gm Physical Exam - Constitutional Appears: Unkempt, Older Than Stated Age, Chronically Ill - Head Exam Head Exam: ATRAUMATIC, NORMAL INSPECTION - Eye Exam Eye Exam: EOMI. absent: Conjunctival injection, Scleral icterus - ENT Exam ENT Exam: Mucous Membranes Dry, Normal External Ear Exam - Respiratory Exam Respiratory Exam: Clear to Auscultation Bilateral, NORMAL BREATHING PATTERN. absent: Accessory Muscle Use, Wheezes - Cardiovascular Exam Cardiovascular Exam: REGULAR RHYTHM. absent: Bradycardia, Tachycardia, Systolic Murmur - GI/Abdominal Exam GI & Abdominal Exam: Normal Bowel Sounds, Soft, Tenderness (in epigastrum w/o guarding, +midline abd scar). absent: Distended, Firm, Rigid - Rectal Exam Rectal Exam: Deferred - Neurological Exam Neurological exam: Alert, CN II-XII Intact, Oriented x3 - Psychiatric Exam Psychiatric exam: Flat Affect, Normal Mood - Skin Skin Exam: Intact, Normal Color Results - Vital Signs Recent Vital Signs: Last Vital Signs Temp 97.8 F 12/16/17 06:00 Pulse 86 12/16/17 06:00 Resp 20 12/16/17 06:00 BP 94/50 L 12/16/17 06:00 Pulse Ox 96 12/16/17 06:00 - Labs Result Diagrams: 12/16/17 09:00 12/16/17 06:00 Labs: Laboratory Results - last 24 hr 12/15/17 12/16/17 12/16/17 16:00 06:00 06:00 WBC 10.8 D RBC 3.35 L Hgb 9.3 L D Hct 27.5 L MCV 82.1 MCH 27.8 MCHC 33.8 RDW 13.8 Plt Count 206 MPV 10.0 Gran % 84.9 H Lymph % (Auto) 11.0 L [place] % (Auto) 4.0 Eos % (Auto) 0.0 L Baso % (Auto) 0.1 Gran # 9.18 H Lymph # (Auto) 1.2 [place] # (Auto) 0.4 Eos # (Auto) 0.0 Baso # (Auto) 0.01 Sodium 139 Potassium 3.2 L Chloride 99 Carbon Dioxide 31 Anion Gap 12 BUN 20 Creatinine 1.5 H Est GFR ( Amer) 43 Est GFR (Non-Af Amer) 36 Random Glucose 278 H Calcium 7.9 L Total Bilirubin 0.7 AST 18 ALT 27 Alkaline Phosphatase 56 Total Protein 4.9 L Albumin 2.6 L Globulin 2.3 Albumin/Globulin Ratio 1.2 Triglycerides 80 Cholesterol 169 LDL Cholesterol Direct 74 HDL Cholesterol 63 H TSH 3rd Generation Urine Color Yellow Urine Appearance Sl cloudy Urine pH 7.0 Ur Specific [place] 1.020 Urine Protein >=300 H Urine Glucose (UA) >=1000 Urine Ketones 40 H Urine Blood Moderate H Urine Nitrate Negative Urine Bilirubin Negative Urine Urobilinogen 0.2 Ur Leukocyte Esterase Negative Urine RBC 15 - 20 Urine WBC 5 - 10 Ur Epithelial Cells 6 - 8 Urine Bacteria Mod 12/16/17 12/16/17 06:00 09:00 WBC 11.7 H RBC 3.66 Hgb 10.2 L Hct 29.9 L MCV 81.7 MCH 27.9 MCHC 34.1 RDW 13.7 Plt Count 196 MPV 9.1 Gran % 88.3 H Lymph % (Auto) 9.0 L [place] % (Auto) 2.6 Eos % (Auto) 0.0 L Baso % (Auto) 0.1 Gran # 10.33 H Lymph # (Auto) 1.1 L [place] # (Auto) 0.3 Eos # (Auto) 0.0 Baso # (Auto) 0.01 Sodium Potassium Chloride Carbon Dioxide Anion Gap BUN Creatinine Est GFR ( Amer) Est GFR (Non-Af Amer) Random Glucose Calcium Total Bilirubin AST ALT Alkaline Phosphatase Total Protein Albumin Globulin Albumin/Globulin Ratio Triglycerides Cholesterol LDL Cholesterol Direct HDL Cholesterol TSH 3rd Generation 0.61 Urine Color Urine Appearance Urine pH Ur Specific [place] Urine Protein Urine Glucose (UA) Urine Ketones Urine Blood Urine Nitrate Urine Bilirubin Urine Urobilinogen Ur Leukocyte Esterase Urine RBC Urine WBC Ur Epithelial Cells Urine Bacteria Assessment & Plan - Assessment and Plan (Free Text) Assessment: 56yo female with PMHx significant for HTN, uncontrolled type 1 DM (a1c 10.4) complicated by retinopathy, polyneuropathy, vasculopathy, gastroparesis, prior TIA, depression/anxiety who presented to the hospital with abdominal pain, nausea and vomiting. -Diabetic gastroparesis -Uncontrolled DM with complications Plan: -Aggressive glycemic control both inpatient and outpatient -ADAT with small frequent meals -Avoid narcotics as able -Cont Ondansetron, if getting multiple doses would monitor QT from time to time -Cautious use of metoclopramide <Benton Abrams - Last Filed: 12/16/17 10:57> Meds - Medications Medications: Current Medications Acetaminophen (Tylenol 650 Mg Supp) 650 mg RC Q4H PRN PRN Reason: Fever >100.4 F Acetaminophen (Tylenol 650 Mg Supp) 650 mg RC Q4H PRN PRN Reason: Pain, moderate (4-7) Albuterol/Ipratropium (Duoneb 3 Mg/0.5 Mg (3 Ml) Ud) 3 ml IH [id number] [facility] Last Admin: 12/16/17 08:07 Dose: 3 ml Amlodipine Besylate (Norvasc) 2.5 mg PO DAILY [facility] Last Admin: 12/16/17 09:19 Dose: 2.5 mg Aspirin (Aspirin Chewable) 81 mg PO DAILY [facility] Last Admin: 12/16/17 09:18 Dose: 81 mg Dicyclomine HCl (Bentyl) 10 mg PO TID [facility] Last Admin: 12/16/17 09:18 Dose: 10 mg Fluoxetine HCl (Prozac) 40 mg PO DAILY [facility] Last Admin: 12/16/17 09:20 Dose: 40 mg Gabapentin (Neurontin) 300 mg PO TID [facility] PRN Reason: Protocol Last Admin: 12/16/17 09:18 Dose: 300 mg Sodium Chloride (Sodium Chloride 0.45%) 1,000 mls @ 60 mls/hr IV .[id number] [facility] Last Admin: 12/16/17 09:22 Dose: 60 mls/hr Piperacillin Sod/Tazobactam Sod (Zosyn 2.25 Gm In 0.9% 100 Ml) 2.25 gm in 100 mls @ 100 mls/hr IVPB Q8 [facility] PRN Reason: Protocol Stop: 12/23/17 06:01 Last Admin: 12/16/17 05:21 Dose: 100 mls/hr Potassium Chloride (Potassium Chloride 10 Meq/100 Ml) 10 meq in 100 mls @ 50 mls/hr IVPB ONCE ONE Stop: 12/16/17 12:12 Insulin Human Regular (Humulin R Med) 0 units SC ACHS [facility] PRN Reason: Protocol Last Admin: 12/16/17 07:59 Dose: 7 units Ketorolac Tromethamine (Toradol) 30 mg IVP Q6 PRN PRN Reason: Pain, severe (8-10) Last Admin: 12/16/17 07:54 Dose: 30 mg Lorazepam (Ativan) 1 mg PO BID PRN; Protocol PRN Reason: Anxiety Last Admin: 12/16/17 08:50 Dose: 1 mg Metoclopramide HCl (Reglan) 10 mg IVP ACHS [facility] Last Admin: 12/16/17 09:21 Dose: 10 mg Ondansetron HCl (Zofran Inj) 4 mg IVP Q6H PRN PRN Reason: Nausea/Vomiting Last Admin: 12/15/17 17:30 Dose: 4 mg Pantoprazole Sodium (Protonix Inj) 40 mg IVP Q12 [facility] Last Admin: 12/16/17 09:20 Dose: 40 mg Sucralfate (Carafate Tab) 1 gm PO QID [facility] Last Admin: 12/16/17 09:18 Dose: 1 gm Results - Vital Signs Recent Vital Signs: Last Vital Signs Temp 97.8 F 12/16/17 06:00 Pulse 86 12/16/17 06:00 Resp 20 12/16/17 06:00 BP 94/50 L 12/16/17 06:00 Pulse Ox 96 12/16/17 06:00 - Labs Result Diagrams: 12/16/17 09:00 12/16/17 06:00 Labs: Laboratory Results - last 24 hr 12/15/17 12/16/17 12/16/17 16:00 06:00 06:00 WBC 10.8 D RBC 3.35 L Hgb 9.3 L D Hct 27.5 L MCV 82.1 MCH 27.8 MCHC 33.8 RDW 13.8 Plt Count 206 MPV 10.0 Gran % 84.9 H Lymph % (Auto) 11.0 L [place] % (Auto) 4.0 Eos % (Auto) 0.0 L Baso % (Auto) 0.1 Gran # 9.18 H Lymph # (Auto) 1.2 [place] # (Auto) 0.4 Eos # (Auto) 0.0 Baso # (Auto) 0.01 Sodium 139 Potassium 3.2 L Chloride 99 Carbon Dioxide 31 Anion Gap 12 BUN 20 Creatinine 1.5 H Est GFR ( Amer) 43 Est GFR (Non-Af Amer) 36 Random Glucose 278 H Calcium 7.9 L Total Bilirubin 0.7 AST 18 ALT 27 Alkaline Phosphatase 56 Total Protein 4.9 L Albumin 2.6 L Globulin 2.3 Albumin/Globulin Ratio 1.2 Triglycerides 80 Cholesterol 169 LDL Cholesterol Direct 74 HDL Cholesterol 63 H TSH 3rd Generation Urine Color Yellow Urine Appearance Sl cloudy Urine pH 7.0 Ur Specific [place] 1.020 Urine Protein >=300 H Urine Glucose (UA) >=1000 Urine Ketones 40 H Urine Blood Moderate H Urine Nitrate Negative Urine Bilirubin Negative Urine Urobilinogen 0.2 Ur Leukocyte Esterase Negative Urine RBC 15 - 20 Urine WBC 5 - 10 Ur Epithelial Cells 6 - 8 Urine Bacteria Mod 12/16/17 12/16/17 06:00 09:00 WBC 11.7 H RBC 3.66 Hgb 10.2 L Hct 29.9 L MCV 81.7 MCH 27.9 MCHC 34.1 RDW 13.7 Plt Count 196 MPV 9.1 Gran % 88.3 H Lymph % (Auto) 9.0 L [place] % (Auto) 2.6 Eos % (Auto) 0.0 L Baso % (Auto) 0.1 Gran # 10.33 H Lymph # (Auto) 1.1 L [place] # (Auto) 0.3 Eos # (Auto) 0.0 Baso # (Auto) 0.01 Sodium Potassium Chloride Carbon Dioxide Anion Gap BUN Creatinine Est GFR ( Amer) Est GFR (Non-Af Amer) Random Glucose Calcium Total Bilirubin AST ALT Alkaline Phosphatase Total Protein Albumin Globulin Albumin/Globulin Ratio Triglycerides Cholesterol LDL Cholesterol Direct HDL Cholesterol TSH 3rd Generation 0.61 Urine Color Urine Appearance Urine pH Ur Specific [place] Urine Protein Urine Glucose (UA) Urine Ketones Urine Blood Urine Nitrate Urine Bilirubin Urine Urobilinogen Ur Leukocyte Esterase Urine RBC Urine WBC Ur Epithelial Cells Urine Bacteria Attending/Attestation - Attestation I have personally seen and examined this patient.: Yes I have fully participated in the care of the patient.: Yes I have reviewed all pertinent clinical information: Yes Notes (Text): 12/16/17 10:55 Patient seen with GI fellow this am. In a nutshell this is a 56 yr old F with uncontrolled Diabetes admitted for unremitting gastroparesis s/p EGD two weeks ago showing bile gastritis, fundic polyps with H pylori negtaive. Strict glycemic control and continue PPI daily. Clear liquid diet. Pain control as per pain management team. Discussed with Dr Dent
--- NOTE | 2017-12-16 11:16 | CP.PCM.CON ---
History of Present Illness - History of Present Illness History of Present Illness: 56 yo female with gastroparesis, nausea, vomiting, and abdominal pain. PMH includes uncontrolled diabetes, diabetic neuropathy, diabetic gastroparesis, irritable bowel syndrome, and TIA. Patient has a history of oversedation with dilaudid and morphine. Patient received ativan 1 mg IVP several hours ago (she is on ativan PO at home) and is currently very lethargic. When aroused, she says that she is comfortable and that her pain level is 3-4/10. Past Patient History - Infectious Disease Hx of Infectious Diseases: None - Tetanus Immunizations Tetanus Immunization: Unknown - Past Social History Smoking Status: Never Smoked - CARDIAC Hx Pacemaker: No - PULMONARY Hx Chronic Obstructive Pulmonary Disease (COPD): Yes - NEUROLOGICAL HX Cerebrovascular Accident: Yes - HEENT Hx HEENT Problems: Yes Hx Cataracts: Yes (bilateral sx) - RENAL Hx Chronic Kidney Disease: No - ENDOCRINE/METABOLIC Hx Diabetes Mellitus Type 1: Yes - HEMATOLOGICAL/ONCOLOGICAL Hx Blood Transfusions: Yes Hx Blood Transfusion Reaction: No - INTEGUMENTARY Hx Dermatological Problems: Yes Other/Comment: abcess - MUSCULOSKELETAL/RHEUMATOLOGICAL Hx Musculoskeletal Disorders: Yes (neuropathy) - GASTROINTESTINAL Hx Gastrointestinal Disorders: Yes Hx Gastroesophageal Reflux: Yes Other/Comment: Diabetic Gastroparesis - GENITOURINARY/GYNECOLOGICAL Hx Genitourinary Disorders: No - PSYCHIATRIC Hx Emotional Abuse: No Hx Substance Use: No - SURGICAL HISTORY Other/Comment: toes amputated from right foot - ANESTHESIA Hx Anesthesia Reactions: No Hx Malignant Hyperthermia: No Meds Allergies/Adverse Reactions: Allergies Allergy/AdvReac Type Severity Reaction Status Date / Time Narcotic/Dilaudid/Morphine AdvReac SHORTNESS Uncoded 11/23/17 18:09 OF BREATH - Medications Medications: Current Medications Acetaminophen (Tylenol 650 Mg Supp) 650 mg RC Q4H PRN PRN Reason: Fever >100.4 F Acetaminophen (Tylenol 650 Mg Supp) 650 mg RC Q4H PRN PRN Reason: Pain, moderate (4-7) Albuterol/Ipratropium (Duoneb 3 Mg/0.5 Mg (3 Ml) Ud) 3 ml IH [id number] [facility] Last Admin: 12/16/17 08:07 Dose: 3 ml Amlodipine Besylate (Norvasc) 2.5 mg PO DAILY [facility] Last Admin: 12/16/17 09:19 Dose: 2.5 mg Aspirin (Aspirin Chewable) 81 mg PO DAILY [facility] Last Admin: 12/16/17 09:18 Dose: 81 mg Dicyclomine HCl (Bentyl) 10 mg PO TID [facility] Last Admin: 12/16/17 09:18 Dose: 10 mg Fluoxetine HCl (Prozac) 40 mg PO DAILY [facility] Last Admin: 12/16/17 09:20 Dose: 40 mg Gabapentin (Neurontin) 300 mg PO TID [facility] PRN Reason: Protocol Last Admin: 12/16/17 09:18 Dose: 300 mg Sodium Chloride (Sodium Chloride 0.45%) 1,000 mls @ 60 mls/hr IV .[id number] [facility] Last Admin: 12/16/17 09:22 Dose: 60 mls/hr Piperacillin Sod/Tazobactam Sod (Zosyn 2.25 Gm In 0.9% 100 Ml) 2.25 gm in 100 mls @ 100 mls/hr IVPB Q8 [facility] PRN Reason: Protocol Stop: 12/23/17 06:01 Last Admin: 12/16/17 05:21 Dose: 100 mls/hr Potassium Chloride (Potassium Chloride 10 Meq/100 Ml) 10 meq in 100 mls @ 50 mls/hr IVPB ONCE ONE Stop: 12/16/17 12:12 Insulin Human Regular (Humulin R Med) 0 units SC [facility] PRN Reason: Protocol Last Admin: 12/16/17 07:59 Dose: 7 units Ketorolac Tromethamine (Toradol) 30 mg IVP Q6 PRN PRN Reason: Pain, severe (8-10) Last Admin: 12/16/17 07:54 Dose: 30 mg Lorazepam (Ativan) 1 mg PO BID PRN; Protocol PRN Reason: Anxiety Last Admin: 12/16/17 08:50 Dose: 1 mg Metoclopramide HCl (Reglan) 10 mg IVP ACHS [facility] Last Admin: 12/16/17 09:21 Dose: 10 mg Ondansetron HCl (Zofran Inj) 4 mg IVP Q6H PRN PRN Reason: Nausea/Vomiting Last Admin: 12/15/17 17:30 Dose: 4 mg Pantoprazole Sodium (Protonix Inj) 40 mg IVP Q12 [facility] Last Admin: 12/16/17 09:20 Dose: 40 mg Sucralfate (Carafate Tab) 1 gm PO QID [facility] Last Admin: 12/16/17 09:18 Dose: 1 gm Physical Exam - Constitutional Appears: No Acute Distress, Other (lethargic) - Respiratory Exam Respiratory Exam: NORMAL BREATHING PATTERN - Cardiovascular Exam Cardiovascular Exam: +S1, +S2 - GI/Abdominal Exam GI & Abdominal Exam: Tenderness Results - Vital Signs Recent Vital Signs: Last Vital Signs Temp 97.8 F 12/16/17 06:00 Pulse 86 12/16/17 06:00 Resp 20 12/16/17 06:00 BP 94/50 L 12/16/17 06:00 Pulse Ox 96 12/16/17 06:00 - Labs Result Diagrams: 12/16/17 09:00 12/16/17 06:00 Labs: Laboratory Results - last 24 hr 12/15/17 12/16/17 12/16/17 16:00 06:00 06:00 WBC 10.8 D RBC 3.35 L Hgb 9.3 L D Hct 27.5 L MCV 82.1 MCH 27.8 MCHC 33.8 RDW 13.8 Plt Count 206 MPV 10.0 Gran % 84.9 H Lymph % (Auto) 11.0 L [place] % (Auto) 4.0 Eos % (Auto) 0.0 L Baso % (Auto) 0.1 Gran # 9.18 H Lymph # (Auto) 1.2 [place] # (Auto) 0.4 Eos # (Auto) 0.0 Baso # (Auto) 0.01 Sodium 139 Potassium 3.2 L Chloride 99 Carbon Dioxide 31 Anion Gap 12 BUN 20 Creatinine 1.5 H Est GFR ( Amer) 43 Est GFR (Non-Af Amer) 36 Random Glucose 278 H Calcium 7.9 L Total Bilirubin 0.7 AST 18 ALT 27 Alkaline Phosphatase 56 Total Protein 4.9 L Albumin 2.6 L Globulin 2.3 Albumin/Globulin Ratio 1.2 Triglycerides 80 Cholesterol 169 LDL Cholesterol Direct 74 HDL Cholesterol 63 H TSH 3rd Generation Urine Color Yellow Urine Appearance Sl cloudy Urine pH 7.0 Ur Specific [place] 1.020 Urine Protein >=300 H Urine Glucose (UA) >=1000 Urine Ketones 40 H Urine Blood Moderate H Urine Nitrate Negative Urine Bilirubin Negative Urine Urobilinogen 0.2 Ur Leukocyte Esterase Negative Urine RBC 15 - 20 Urine WBC 5 - 10 Ur Epithelial Cells 6 - 8 Urine Bacteria Mod 12/16/17 12/16/17 06:00 09:00 WBC 11.7 H RBC 3.66 Hgb 10.2 L Hct 29.9 L MCV 81.7 MCH 27.9 MCHC 34.1 RDW 13.7 Plt Count 196 MPV 9.1 Gran % 88.3 H Lymph % (Auto) 9.0 L [place] % (Auto) 2.6 Eos % (Auto) 0.0 L Baso % (Auto) 0.1 Gran # 10.33 H Lymph # (Auto) 1.1 L [place] # (Auto) 0.3 Eos # (Auto) 0.0 Baso # (Auto) 0.01 Sodium Potassium Chloride Carbon Dioxide Anion Gap BUN Creatinine Est GFR ( Amer) Est GFR (Non-Af Amer) Random Glucose Calcium Total Bilirubin AST ALT Alkaline Phosphatase Total Protein Albumin Globulin Albumin/Globulin Ratio Triglycerides Cholesterol LDL Cholesterol Direct HDL Cholesterol TSH 3rd Generation 0.61 Urine Color Urine Appearance Urine pH Ur Specific [place] Urine Protein Urine Glucose (UA) Urine Ketones Urine Blood Urine Nitrate Urine Bilirubin Urine Urobilinogen Ur Leukocyte Esterase Urine RBC Urine WBC Ur Epithelial Cells Urine Bacteria Assessment & Plan - Assessment and Plan (Free Text) Assessment: 56 yo female with gastroparesis and abdominal pain. Patient is currently lethargic but reports that her pain is well controlled. If needed, can add tylenol 1000 mg IVPB q6h as patient unable to tolerate PO.
--- NOTE | 2017-12-16 13:33 | PN ---
DATE: 12/16/2017 SUBJECTIVE: I saw Ting resting in bed. She is uncomfortable. She is getting her Toradol IV, Tylenol, Zofran, Zosyn, aspirin, Ativan, Bentyl, Carafate, DuoNeb, Neurontin, Norvasc, Protonix, Prozac. SHE IS ALLERGIC TO DILAUDID AND MORPHINE. She is in pain. PHYSICAL EXAMINATION: VITAL SIGNS: She has a 97.8 temp, 86 pulse, 94/50 blood pressure, 20 respiratory rate, 96% O2 sat on room air. HEENT: Head is atraumatic, normocephalic. HEART: Regular rate and rhythm. LUNGS: Decreased breath sounds, but clear. ABDOMEN: Soft. Positive bowel sounds. There was tenderness, but at this time, it is nontender, she is comfortable at this time. EXTREMITIES: No edema. LABORATORY DATA: She has an 11.7 white count, better than when she came in; 10.2 hemoglobin, 29.9 hematocrit, with a 196 platelets. Sugars were high at 469 when she came in; now it is down to 278. She has a 139 sodium; potassium is 3.2, I will replace the potassium; BUN 20; creatinine 1.5; GFR is 36; calcium is 7.9. Total bilirubin is 0.7, AST 18, ALT is 27, alkaline phosphatase is 56, total protein is 4.9. Triglycerides are 80, cholesterol is 169. TSH is 0.61. Urine had moderate blood, moderate bacteria. ASSESSMENT AND PLAN: She is on consult with Dr. Coe, who is an sports medicine specialist. She had patchy infiltrates, that is why Pulmonary is called in. She is aspirin, Ativan, Bentyl, Carafate, Neurontin, Norvasc, Protonix and Zosyn. We also called in pain management for her pain; of course, we do not know what they give her, as she cannot take narcotics at this time. We will continue with aggressive treatment and care as per GI, Infectious Disease, Pulmonary and now Pain Management. We will check her labs tomorrow. Josafat Dent DO [facility] # [id number]
--- NOTE | 2017-12-16 14:41 | CP.PCM.CON ---
History of Present Illness - History of Present Illness History of Present Illness: 56 year old female with PMH of HTN, DM, gastroparesis, history of TIA, history of esophageal ulcers, S/P cholecystectomy, S/P , S/P hysterectomy, S/P right foot partial amputation came in to [facility] complaining of abdominal pain associated with nausea and vomiting for the past 1-2 days, associated with some loose bowel movement. She denies fever or chills, vomiting is not associated with food intake, no headache or dizziness, feels weak, no dysphagia, no sore throat, no cough or colds, no SOB. She states that she has had similar episodes before. In the ED, the patient is noted to have leukocytosis and Infectious Diseases consult is requested to further evaluate and manage. Review of Systems - Review of Systems All systems: reviewed and no additional remarkable complaints except (as per HPI ) Past Patient History - Infectious Disease Hx of Infectious Diseases: None - Tetanus Immunizations Tetanus Immunization: Unknown - Past Social History Smoking Status: Never Smoked - CARDIAC Hx Pacemaker: No - PULMONARY Hx Chronic Obstructive Pulmonary Disease (COPD): Yes - NEUROLOGICAL HX Cerebrovascular Accident: Yes - HEENT Hx HEENT Problems: Yes Hx Cataracts: Yes (bilateral sx) - RENAL Hx Chronic Kidney Disease: No - ENDOCRINE/METABOLIC Hx Diabetes Mellitus Type 1: Yes - HEMATOLOGICAL/ONCOLOGICAL Hx Blood Transfusions: Yes Hx Blood Transfusion Reaction: No - INTEGUMENTARY Hx Dermatological Problems: Yes Other/Comment: abcess - MUSCULOSKELETAL/RHEUMATOLOGICAL Hx Musculoskeletal Disorders: Yes (neuropathy) - GASTROINTESTINAL Hx Gastrointestinal Disorders: Yes Hx Gastroesophageal Reflux: Yes Other/Comment: Diabetic Gastroparesis - GENITOURINARY/GYNECOLOGICAL Hx Genitourinary Disorders: No - PSYCHIATRIC Hx Emotional Abuse: No Hx Substance Use: No - SURGICAL HISTORY Other/Comment: toes amputated from right foot - ANESTHESIA Hx Anesthesia Reactions: No Hx Malignant Hyperthermia: No Meds Allergies/Adverse Reactions: Allergies Allergy/AdvReac Type Severity Reaction Status Date / Time Narcotic/Dilaudid/Morphine AdvReac SHORTNESS Uncoded 11/23/17 18:09 OF BREATH - Medications Medications: Current Medications Acetaminophen (Tylenol 650 Mg Supp) 650 mg RC Q4H PRN PRN Reason: Fever >100.4 F Acetaminophen (Tylenol 650 Mg Supp) 650 mg RC Q4H PRN PRN Reason: Pain, moderate (4-7) Albuterol/Ipratropium (Duoneb 3 Mg/0.5 Mg (3 Ml) Ud) 3 ml IH [id number] [facility] Last Admin: 12/15/17 20:10 Dose: 3 ml Amlodipine Besylate (Norvasc) 2.5 mg PO DAILY [facility] Aspirin (Aspirin Chewable) 81 mg PO DAILY [facility] Dicyclomine HCl (Bentyl) 10 mg PO TID [facility] Last Admin: 12/15/17 18:25 Dose: 10 mg Fluoxetine HCl (Prozac) 40 mg PO DAILY [facility] Gabapentin (Neurontin) 300 mg PO TID [facility] PRN Reason: Protocol Last Admin: 12/15/17 18:24 Dose: 300 mg Sodium Chloride (Sodium Chloride 0.45%) 1,000 mls @ 60 mls/hr IV .[id number] [facility] Last Admin: 12/15/17 18:52 Dose: 60 mls/hr Metronidazole (Flagyl) 500 mg in 100 mls @ 100 mls/hr IVPB Q8 [facility] PRN Reason: Protocol Stop: 12/16/17 00:01 Last Admin: 12/15/17 21:39 Dose: 100 mls/hr Piperacillin Sod/Tazobactam Sod (Zosyn 3.375 In Ns 100ml) 100 mls @ 200 mls/hr IVPB Q6 [facility] PRN Reason: Protocol Stop: 12/23/17 06:01 Insulin Human Regular (Humulin R Med) 0 units SC ACHS [facility] PRN Reason: Protocol Last Admin: 12/15/17 21:43 Dose: 2 units Ketorolac Tromethamine (Toradol) 30 mg IVP Q6 PRN PRN Reason: Pain, severe (8-10) Last Admin: 12/15/17 16:50 Dose: 30 mg Lorazepam (Ativan) 1 mg PO BID PRN; Protocol PRN Reason: Anxiety Metoclopramide HCl (Reglan) 10 mg IVP ACHS [facility] Last Admin: 12/15/17 21:39 Dose: 10 mg Ondansetron HCl (Zofran Inj) 4 mg IVP Q6H PRN PRN Reason: Nausea/Vomiting Last Admin: 12/15/17 17:30 Dose: 4 mg Pantoprazole Sodium (Protonix Inj) 40 mg IVP Q12 [facility] Last Admin: 12/15/17 21:39 Dose: 40 mg Sucralfate (Carafate Tab) 1 gm PO QID [facility] Last Admin: 12/15/17 21:39 Dose: 1 gm Physical Exam - Constitutional Appears: Chronically Ill - Head Exam Head Exam: NORMAL INSPECTION - Respiratory Exam Respiratory Exam: Decreased Breath Sounds - Cardiovascular Exam Cardiovascular Exam: +S1, +S2 - GI/Abdominal Exam GI & Abdominal Exam: Soft. absent: Tenderness Results - Vital Signs Recent Vital Signs: Last Vital Signs Temp 97.7 F 12/15/17 19:21 Pulse 94 H 12/15/17 22:00 Resp 20 12/15/17 19:21 BP 100/65 12/15/17 19:21 Pulse Ox 95 12/15/17 18:00 - Labs Result Diagrams: 12/16/17 09:00 12/16/17 06:00 Labs: Laboratory Results - last 24 hr 12/15/17 16:00 Urine Color Yellow Urine Appearance Sl cloudy Urine pH 7.0 Ur Specific [place] 1.020 Urine Protein >=300 H Urine Glucose (UA) >=1000 Urine Ketones 40 H Urine Blood Moderate H Urine Nitrate Negative Urine Bilirubin Negative Urine Urobilinogen 0.2 Ur Leukocyte Esterase Negative Urine RBC 15 - 20 Urine WBC 5 - 10 Ur Epithelial Cells 6 - 8 Urine Bacteria Mod Assessment & Plan - Assessment and Plan (Free Text) Plan: Assessment systemic inflammatory response syndrome, consider due to acute exacerbation of gastroparesis R/O intra-abdominal infection history of UTI with Klebsiella oxytoca gastroparesis HTN DM history of TIA history of esophageal ulcers S/P cholecystectomy S/P S/P hysterectomy S/P right foot partial amputation Plan started Zosyn pending blood cx; reviewed CT A/P; follow up GI evaluation and recommendations will monitor clinically
--- NOTE | 2017-12-16 20:32 | CP.PCM.PN ---
Subjective - Date & Time of Evaluation Date of Evaluation: 12/16/17 Time of Evaluation: 07:00 - Subjective Subjective: CC: lethargy 56 F history of severeal TIAs, new onset seizure for gastroparesis, diabetic neuropathy, COPD, CVA,uncontrolled DM presenting with complaints of epigastric abdominal pain, nausea, vomiting, and diarrhea. Patient was found to be lethargic as per nurse throughout the day. Patient's daughter saw patient tonight and was concerned for the lethargy which as per daughter was not present the night prior when she was with patient. Daughter states concern for another TIA as patient has had similar presentations for past TIAs. Patient was evaluated; unable to sit herself upward which she apparently was able to do the night prior as per daughter. Nurse from previous night states patient's baseline seems to be very fatigued and mildly lethargic however capable of mobilizing herself without help of others. Patient was speaking fluently in [place] and [place]. Oriented to person, time and place. CN II-XII in tact, motor strength 4/4. Blood glucose at time was 141. Vitals stable. Discussed case with Dr. Lindo; CT head ordered, EKG, and Troponin: Will follow up. Dr. Knight consulted for neurology. Objective - Vital Signs/Intake and Output Vital Signs (last 24 hours): Temp Pulse Resp BP Pulse Ox 98.1 F 87 19 102/57 L 96 12/16/17 16:37 12/16/17 18:00 12/16/17 16:37 12/16/17 16:37 12/16/17 16:37 - Medications Medications: Current Medications Acetaminophen (Tylenol 650 Mg Supp) 650 mg RC Q4H PRN PRN Reason: Fever >100.4 F Acetaminophen (Tylenol 650 Mg Supp) 650 mg RC Q4H PRN PRN Reason: Pain, moderate (4-7) Albuterol/Ipratropium (Duoneb 3 Mg/0.5 Mg (3 Ml) Ud) 3 ml IH [id number] [facility] Last Admin: 12/16/17 19:32 Dose: 3 ml Amlodipine Besylate (Norvasc) 2.5 mg PO DAILY [facility] Last Admin: 12/16/17 09:19 Dose: 2.5 mg Aspirin (Aspirin Chewable) 81 mg PO DAILY [facility] Last Admin: 12/16/17 09:18 Dose: 81 mg Dicyclomine HCl (Bentyl) 10 mg PO TID [facility] Last Admin: 12/16/17 17:13 Dose: 10 mg Fluoxetine HCl (Prozac) 40 mg PO DAILY [facility] Last Admin: 12/16/17 09:20 Dose: 40 mg Gabapentin (Neurontin) 300 mg PO TID [facility] PRN Reason: Protocol Last Admin: 12/16/17 17:14 Dose: 300 mg Sodium Chloride (Sodium Chloride 0.45%) 1,000 mls @ 60 mls/hr IV .[id number] [facility] Last Admin: 12/16/17 09:22 Dose: 60 mls/hr Piperacillin Sod/Tazobactam Sod (Zosyn 2.25 Gm In 0.9% 100 Ml) 2.25 gm in 100 mls @ 100 mls/hr IVPB Q8 [facility] PRN Reason: Protocol Stop: 12/23/17 06:01 Last Admin: 12/16/17 13:21 Dose: 100 mls/hr Insulin Detemir (Levemir) 20 unit SC [facility] Insulin Human Regular (Humulin R Med) 0 units SC [facility] PRN Reason: Protocol Last Admin: 12/16/17 17:13 Dose: Not Given Ketorolac Tromethamine (Toradol) 30 mg IVP Q6 PRN PRN Reason: Pain, severe (8-10) Last Admin: 12/16/17 07:54 Dose: 30 mg Lorazepam (Ativan) 1 mg PO BID PRN; Protocol PRN Reason: Anxiety Last Admin: 12/16/17 08:50 Dose: 1 mg Metoclopramide HCl (Reglan) 10 mg IVP ACHS [facility] Last Admin: 12/16/17 17:14 Dose: 10 mg Ondansetron HCl (Zofran Inj) 4 mg IVP Q6H PRN PRN Reason: Nausea/Vomiting Last Admin: 12/15/17 17:30 Dose: 4 mg Pantoprazole Sodium (Protonix Inj) 40 mg IVP Q12 [facility] Last Admin: 12/16/17 09:20 Dose: 40 mg Sucralfate (Carafate Tab) 1 gm PO QID [facility] Last Admin: 12/16/17 17:13 Dose: 1 gm - Labs Labs: 12/16/17 09:00 12/16/17 06:00
[2017-12-16] MEDS ORDERED: Insulin Detemir 100 units/ml Vial (Levemir) SC SCH (22:00)
[2017-12-17] MEDS: Albuterol-Ipratrop 3 mg / 0.5 (3 ml) UD IH SCH ×4 (00:59→20:15)
[2017-12-17] MEDS: Piperacillin/Tazobact 2.25gm 2.25 GM/100 ML BAG IVPB SCH (05:42)
[2017-12-17 06:32] LABS: HEMOGLOBIN 10.2 g/dL (12.0-16.0); MEAN CORPUSCULAR HEMOGLOBIN 27.8 pg (25.0-35.0); MEAN CORPUSCULAR HGB CONC 33.9 g/dl (31.0-37.0); MEAN PLATELET VOLUME 9.9 fl (7.0-11.0); RBC 3.67 10^6/uL (3.5-6.1); RED CELL DISTRIBUTION WIDTH 13.9 % (11.5-14.5); WHITE BLOOD COUNT 8.8 10^3/ul (4.5-11.0)
--- NOTE | 2017-12-17 06:58 | CP.PCM.PN ---
<Wayne Rawls - Last Filed: 12/17/17 09:22> Subjective - Date & Time of Evaluation Date of Evaluation: 12/17/17 Time of Evaluation: 07:00 - Subjective Subjective: PGY-4 GI Fellow Progress Note Pt lying in bed sleeping when seen around 0700, stating abd pain improved and tolerating liquid diet. However, seen later around 0900 and patient was complaining of recurrence of abdominal pain though still tolerating diet w/o n/ v. 5 point ROS negative other than stated above. Objective - Vital Signs/Intake and Output Vital Signs (last 24 hours): Temp Pulse Resp BP Pulse Ox 98.1 F 88 19 102/57 L 96 12/16/17 16:37 12/17/17 05:27 12/16/17 16:37 12/16/17 16:37 12/16/17 16:37 Intake and Output: 12/16/17 12/17/17 18:59 06:59 Intake Total 0 Balance 0 - Medications Medications: Current Medications Acetaminophen (Tylenol 650 Mg Supp) 650 mg RC Q4H PRN PRN Reason: Fever >100.4 F Acetaminophen (Tylenol 650 Mg Supp) 650 mg RC Q4H PRN PRN Reason: Pain, moderate (4-7) Albuterol/Ipratropium (Duoneb 3 Mg/0.5 Mg (3 Ml) Ud) 3 ml IH [id number] [facility] Last Admin: 12/17/17 00:59 Dose: 3 ml Amlodipine Besylate (Norvasc) 2.5 mg PO DAILY [facility] Last Admin: 12/16/17 09:19 Dose: 2.5 mg Aspirin (Aspirin Chewable) 81 mg PO DAILY [facility] Last Admin: 12/16/17 09:18 Dose: 81 mg Dicyclomine HCl (Bentyl) 10 mg PO TID [facility] Last Admin: 12/16/17 17:13 Dose: 10 mg Fluoxetine HCl (Prozac) 40 mg PO DAILY [facility] Last Admin: 12/16/17 09:20 Dose: 40 mg Gabapentin (Neurontin) 300 mg PO TID [facility] PRN Reason: Protocol Last Admin: 12/16/17 17:14 Dose: 300 mg Sodium Chloride (Sodium Chloride 0.45%) 1,000 mls @ 60 mls/hr IV .[id number] [facility] Last Admin: 12/16/17 09:22 Dose: 60 mls/hr Piperacillin Sod/Tazobactam Sod (Zosyn 2.25 Gm In 0.9% 100 Ml) 2.25 gm in 100 mls @ 100 mls/hr IVPB Q8 [facility] PRN Reason: Protocol Stop: 12/23/17 06:01 Last Admin: 12/17/17 05:42 Dose: 100 mls/hr Insulin Detemir (Levemir) 20 unit SC [facility] Last Admin: 12/16/17 23:56 Dose: Not Given Insulin Human Lispro (Humalog Low) 0 units SC [facility] PRN Reason: Protocol Ketorolac Tromethamine (Toradol) 30 mg IVP Q6 PRN PRN Reason: Pain, severe (8-10) Last Admin: 12/16/17 21:49 Dose: 30 mg Lorazepam (Ativan) 1 mg PO BID PRN; Protocol PRN Reason: Anxiety Last Admin: 12/16/17 22:03 Dose: 1 mg Metoclopramide HCl (Reglan) 10 mg IVP ACHS [facility] Last Admin: 12/16/17 21:49 Dose: 10 mg Ondansetron HCl (Zofran Inj) 4 mg IVP Q6H PRN PRN Reason: Nausea/Vomiting Last Admin: 12/15/17 17:30 Dose: 4 mg Pantoprazole Sodium (Protonix Inj) 40 mg IVP Q12 [facility] Last Admin: 12/16/17 21:49 Dose: 40 mg Sucralfate (Carafate Tab) 1 gm PO QID [facility] Last Admin: 12/16/17 21:50 Dose: 1 gm - Labs Labs: 12/17/17 05:45 12/16/17 06:00 - Constitutional Appears: In Acute Distress (mild, uncomfortable), Chronically Ill - Head Exam Head Exam: ATRAUMATIC, NORMAL INSPECTION - ENT Exam ENT Exam: Mucous Membranes Dry, Normal External Ear Exam - Respiratory Exam Respiratory Exam: NORMAL BREATHING PATTERN. absent: Accessory Muscle Use - Cardiovascular Exam Cardiovascular Exam: REGULAR RHYTHM. absent: Bradycardia, Tachycardia - GI/Abdominal Exam GI & Abdominal Exam: Soft, Tenderness (mildly in epigastrum w/o guarding). absent: Distended, Firm, Guarding, Rigid Assessment and Plan - Assessment and Plan (Free Text) Assessment: 56yo female with PMHx significant for HTN, uncontrolled type 1 DM (a1c 10.4) complicated by retinopathy, polyneuropathy, vasculopathy, gastroparesis, prior TIA, depression/anxiety who presented to the hospital with abdominal pain, nausea and vomiting. -Diabetic gastroparesis -Uncontrolled DM with complications Plan: -Aggressive glycemic control both inpatient and outpatient -ADAT with small frequent meals -Avoid narcotics as able -Cont Ondansetron, if getting multiple doses would monitor QT from time to time --- Can inc dose if need be -Cautious use of metoclopramide -Pain medicine consult <Dagoberto Zambrano - Last Filed: 12/17/17 09:59> Objective - Vital Signs/Intake and Output Vital Signs (last 24 hours): Temp Pulse Resp BP Pulse Ox 97.1 F L 89 20 159/84 H 95 12/17/17 07:53 12/17/17 07:53 12/17/17 07:53 12/17/17 09:07 12/17/17 07:53 Intake and Output: 12/17/17 12/17/17 06:59 18:59 Intake Total 0 Balance 0 - Medications Medications: Current Medications Acetaminophen (Tylenol 650 Mg Supp) 650 mg RC Q4H PRN PRN Reason: Fever >100.4 F Acetaminophen (Tylenol 650 Mg Supp) 650 mg RC Q4H PRN PRN Reason: Pain, moderate (4-7) Albuterol/Ipratropium (Duoneb 3 Mg/0.5 Mg (3 Ml) Ud) 3 ml IH [id number] [facility] Last Admin: 12/17/17 07:38 Dose: 3 ml Amlodipine Besylate (Norvasc) 2.5 mg PO DAILY [facility] Last Admin: 12/17/17 09:07 Dose: 2.5 mg Aspirin (Aspirin Chewable) 81 mg PO DAILY [facility] Last Admin: 12/17/17 09:06 Dose: 81 mg Dicyclomine HCl (Bentyl) 10 mg PO TID [facility] Last Admin: 12/17/17 09:06 Dose: 10 mg Fluoxetine HCl (Prozac) 40 mg PO DAILY [facility] Last Admin: 12/17/17 09:09 Dose: 40 mg Gabapentin (Neurontin) 300 mg PO TID [facility] PRN Reason: Protocol Last Admin: 12/17/17 09:07 Dose: 300 mg Piperacillin Sod/Tazobactam Sod (Zosyn 2.25 Gm In 0.9% 100 Ml) 2.25 gm in 100 mls @ 100 mls/hr IVPB Q8 [facility] PRN Reason: Protocol Stop: 12/23/17 06:01 Last Admin: 12/17/17 05:42 Dose: 100 mls/hr Sodium Chloride (Sodium Chloride 0.45%) 1,000 mls @ 100 mls/hr IV .Q10H [facility] Last Admin: 12/17/17 08:51 Dose: 100 mls/hr Insulin Detemir (Levemir) 20 unit SC HS [facility] Last Admin: 12/16/17 23:56 Dose: Not Given Insulin Human Lispro (Humalog Low) 0 units SC [facility] PRN Reason: Protocol Last Admin: 12/17/17 08:44 Dose: Not Given Ketorolac Tromethamine (Toradol) 30 mg IVP Q6 PRN PRN Reason: Pain, severe (8-10) Last Admin: 12/17/17 07:50 Dose: 30 mg Lorazepam (Ativan) 1 mg PO BID PRN; Protocol PRN Reason: Anxiety Last Admin: 12/17/17 09:53 Dose: 1 mg Metoclopramide HCl (Reglan) 10 mg IVP ACHS [facility] Last Admin: 12/17/17 08:45 Dose: 10 mg Ondansetron HCl (Zofran Inj) 4 mg IVP Q6H PRN PRN Reason: Nausea/Vomiting Last Admin: 12/15/17 17:30 Dose: 4 mg Pantoprazole Sodium (Protonix Inj) 40 mg IVP Q12 [facility] Last Admin: 12/17/17 09:08 Dose: 40 mg Sucralfate (Carafate Tab) 1 gm PO QID [facility] Last Admin: 12/17/17 09:07 Dose: 1 gm - Labs Labs: 12/17/17 05:45 12/17/17 05:45 Attending/Attestation - Attestation I have personally seen and examined this patient.: Yes I have fully participated in the care of the patient.: Yes I have reviewed all pertinent clinical information, including history, physical exam and plan: Yes Notes (Text): 12/17/17 09:56 I have seen and examined patient with GI fellow. No acute events overnight, however patient complains of severe diffuse abdominal pain today during examination, appears quite uncomfortable. Her pain became much worse following clear liquid consumption today for breakfast. She denies nausea, vomiting, fever/chills. HTN DM, uncontrolled Abdominal pain - gastroparesis Depression - Liquid diet as tolerated - Continue with supportive care, IVF hydration - Anti-emetic therapy PRN - Promotility agent as per medical team - Patient requires strict glycemic control and endocrine follow up (apparently has an outpatient appointment in the week of December) - Pain control - Will continue to monitor patient clinical course
[2017-12-17 07:16] LABS: ALB/GLOB RATIO 1.2 (1.1-1.8); ALBUMIN 2.9 g/dL (3.0-4.8)
[2017-12-17] MEDS ORDERED: Potassium Chloride 20 mEq ER Tab PO ONE (07:49)
--- NOTE | 2017-12-17 08:15 | PN ---
DATE: 12/16/2017 ENDOCRINOLOGY FOLLOWUP NOTE LOCATION: In room 368. This is a 56-year-old female with known history of type 1 insulin-dependent diabetes, presenting here with intractable vomiting episodes and currently n.p.o. at this time with underlying abdominal pain and is also undergoing GI workup at this time. Moreover, she also has a bilateral pneumonitis and is receiving IV antibiotic management as noted. Hyperglycemic levels have supervened and the glucose values today have ranged from 344 to 372 mg/dL. Her latest chemistry showed a BUN of 20, sodium 139, potassium 3.2, chloride 99, CO2 of 31, glucose 278 and creatinine 1.5. Her cortisol level is 15.8, TSH is 0.61, this excludes . Tita Coe MD
--- NOTE | 2017-12-17 08:18 | PN ---
DATE: 12/17/2017 SUBJECTIVE: I saw Ting resting comfortably in bed; actually she is the best I have seen her since she has been here. She slept well last night, maybe a slight appetite. She has been n.p.o. I will put her on some clear liquids and see how she does and we will increase her diet to full or soft at lunchtime; we will see how she does. She is on IV fluids, aspirin, Ativan, Bentyl, Carafate, DuoNebs, insulin coverage, Levemir, Neurontin, Norvasc, potassium replacement, Protonix, Prozac, Reglan, Toradol, Tylenol and Zofran. OBJECTIVE: VITAL SIGNS: She has a 98.1 temperature, 74 pulse, 102/57 blood pressure, 19 respiratory rate, 96% O2 saturation on room air. HEENT: Head is atraumatic, normocephalic. She is very alert, eyes wide open. No signs of pain. She is comfortable. She is smiling at me. Throat is dry. NECK: Supple. HEART: Regular rate. LUNGS: Decreased breath sounds, but clear. ABDOMEN: Soft, nontender. Positive bowel sounds. EXTREMITIES: No edema. Told her it is the best I have seen her. She has a 137 sodium; potassium is low at 3.2, I replaced the potassium. BUN is 23, creatinine is 2 and that went up. When she came in, the creatinine was 0.6 so we will call in Renal, increase her IV fluids as a new change. Her blood sugar is 203, calcium is 8, total bili is 0.4, AST is 24, ALT is 29, alkaline phosphatase 58, total protein is 5.3. We are going to increase her IV fluids. Get Renal in, continue with aggressive treatment and care and increase her diet to Clears. She actually progresses with her diet and appetite and the pain, replace the potassium and IV fluids and we will evaluate. Josafat Dent DO
[2017-12-17] MEDS: Insulin Lispro (humaLOG) LOW Coverage SC SCH ×3 (08:44→17:21)
--- NOTE | 2017-12-17 08:48 | CT ---
Date of service: 12/16/2017 PROCEDURE: CT HEAD WITHOUT CONTRAST. HISTORY: history of TIA COMPARISON: 01/27/2017 TECHNIQUE: Axial computed tomography images were obtained through the head/brain without intravenous contrast. Radiation dose: Total exam DLP = 915 mGy-cm. This CT exam was performed using one or more of the following dose reduction techniques: Automated exposure control, adjustment of the mA and/or kV according to patient size, and/or use of iterative reconstruction technique. FINDINGS: HEMORRHAGE: No intracranial hemorrhage. BRAIN: No mass effect or edema. No atrophy or chronic microvascular ischemic changes. VENTRICLES: Unremarkable. No hydrocephalus. CALVARIUM: Unremarkable. PARANASAL SINUSES: Unremarkable as visualized. No significant inflammatory changes. MASTOID AIR CELLS: Unremarkable as visualized. No inflammatory changes. OTHER FINDINGS: None. IMPRESSION: No acute findings
[2017-12-17] MEDS: Sodium Chloride 0.45% 1,000 ML IV SCH (08:51)
--- NOTE | 2017-12-17 08:55 | PN ---
DATE: 12/17/2017 PULMONARY PROGRESS NOTE SUBJECTIVE: The patient was seen and examined at the bedside. She appears uncomfortable due to abdominal pain. She is not complaining of shortness of breath and she states that her breathing is actually good. She is on intravenous antibiotics, Zosyn and she is receiving inhalation treatments with DuoNeb. PHYSICAL EXAMINATION: VITAL SIGNS: Her temperature is 97, pulse 88, respirations 20, pulse oximetry is 95 on room air, blood pressure 150/80. HEENT: Head normocephalic and atraumatic. NECK: Supple with no jugular vein distentions. CARDIOVASCULAR: S1, S2. No S3. Regular. PULMONARY: The lungs are actually clear. There are no rhonchi, rales or wheezing. GASTROINTESTINAL: Soft, diffusely tender. Bowel sounds are hyperactive. EXTREMITIES: No pedal edema. No cyanosis. SKIN: No acute skin rash. NEUROLOGIC: Limited at the present time. LABORATORY DATA: Reviewed. WBCs are 8.8, hemoglobin of 10.2, platelet count is 210,000. ASSESSMENT: The patient is being worked up for severe abdominal pain. One of the findings on the CT scan of abdomen is fluffy infiltrates versus atelectasis in the lower lobe of both lungs. I personally reviewed the CT scan and agreed that the findings are suspicious for pneumonia. This is not atelectasis. Aspiration is one of the possibilities with vomiting and abdominal pain. The workup of her abdominal pain is in progress. Repeat chest x-ray will be ordered in 24-48 hours to follow up on those fluffy nondense infiltrates in the lower lobe, but overall her pulmonary status is stable and improved. Jose G Ibrahim MD
--- NOTE | 2017-12-17 11:07 | CP.PCM.CON ---
History of Present Illness - History of Present Illness History of Present Illness: Nephrology Consultation Note: Assessment: Stable Acute Kidney Injury (N17.9) likely multi-factorial due to recent IV contrast, pre-renal state, hemodynamic injury due to BP fluctuations urine retention r/o neurogenic bladder microscopic hematuria 3+ proteinuria with hypoalbuniemia ? nephrotic syndrome Anemia , hypokalemia Diabetic chronic Kidney Disease (E11.22) Hypertensive Chronic Kidney Disease (I12.9) Chronic Kidney Disease (N18.1) Stage with ? mg proteinuria (R80.9) likely due to DM Type 1 diabetes Mellitus (>20 years) complicated by neuropathy, retinopathy and gastroparesis TIA, GERD, kidney stones, hx of hemicolectomy Plan No acute need for renal replacement therapy at this time. Hypertension control with meds as ordered. Patient not on ACEI/ARB due to ANTONIO, will consider once ANTONIO resolves continue with IVF as ordered. supplement lytes as needed. Monitor Input/Output, daily weights and renal function with basic metabolic panel asked RN to check pre-void (650 mL) and post-void bladder scan consider urology eval for possible neurogenic bladder and microscopic hematuria (to eval for possible cystoscopy) GI, endocrine following Check urine spot protein/creatinine and albumin/creatinine ratio Check for 25-OH vitamin D, iPTH, phosphorus level Check GN work up as C3, C4, HOLLY, Anti dsDNA Anemia work up with serum protein electrophoresis with immunofixation, iron studies and b12/folate level Dose meds/antibiotics for reduced GFR. Avoid fleets enema/magnesium based laxatives. Avoid nephrotoxins/NSAIDs/ iodinated contrast (unless needed emergently) Glycemic control Further work up/management as per primary team Thanks for allowing me to participate in care of your patient. Will follow patient with you. Please call if any Qs. had d/w team Dr Onesimo Guerra Office: [phone] Chief Complaint; stomach pain, I was dehydrated reason for consult: ANTONIO HPI: Pt is a 56 F with hx of Type 1 diabetes Mellitus (>20 years) complicated by neuropathy, retinopathy, gastroparesis, hypertension (years), TIA, GERD, kidney stones, hx of hemicolectomy presented with complaints of recurrent abdomen pain with nausea/vomiting for last few days. renal consult for ANTONIO evaluation and management. pt feels sick with pain abdomen and nausea/vomiting which is better now Denies OTC/herbal meds or NSAIDs Noted recent iodinated contrast exposure on 12/15/17. Noted obvious episodes of low BP (94/50), high BP (187/106) pt not aware about kidney disease in past. reports foamy urine often. reports decreased sensation/urge to urinate ROS: Cardiovascular: No chest pain. Pulmonary: No shortness of breath Gastrointestinal: c/o abdominal pain c/o nausea. c/o vomiting but better. Genitourinary: No pain while urinating. Denies blood in urine. All other negative except as mentioned in HPI Physical Examination: General Appearance: uncomfortable, in no acute respiratory distress, co- operative . Vitals reviewed and noted as below Head; Atraumatic, normocephalic ENT: no ulcers no thrush. Tongue is midline. Oropharynx: no rash or ulcers. EYES: Pupils are equal, round and reactive to light accommodation. Eye muscles and extraocular movement intact. Sclera is anicteric. Neck; supple no lymphadenopathy, no thyromegaly or bruit Lungs: Normal respiratory rate/effort. Breath sounds bilateral equal and clear Heart: Normal rate. s1s2 normal. No rub or gallop. Extremities: no edema. No varicose veins Neurological: Patient is alert, awake and oriented to person, place and time. No focal deficit. Strength bilateral appropriate and equal Skin: Warm and dry. Normal turgor. No rash. Palpitation: Normal elasticity for age Abdomen: Abdomen is soft. Bowel sounds +. There is no abdominal tenderness, no guarding/rigidity no organomegaly Psych: normal insight and normal affect/mood MSK: no joint tenderness or swelling. Digits and nails normal, no deformity : kidney not palpable but bladder appeared to be distended Labs/imaging reviewed. Past medical history, past surgical history, family history, social history, allergy reviewed and noted as below Family hx: no hx of CKD. Rest non-contributory work up: UA 3+ protein with moderate blood a1c 10.2% CT abdomen: normal adrenal. hx of b/l nephrolithiasis. distended urinary bladder Past Patient History - Infectious Disease Hx of Infectious Diseases: None - Tetanus Immunizations Tetanus Immunization: Unknown - Past Social History Smoking Status: Never Smoked - CARDIAC Hx Pacemaker: No - PULMONARY Hx Chronic Obstructive Pulmonary Disease (COPD): Yes - NEUROLOGICAL HX Cerebrovascular Accident: Yes - HEENT Hx HEENT Problems: Yes Hx Cataracts: Yes (bilateral sx) - RENAL Hx Chronic Kidney Disease: No - ENDOCRINE/METABOLIC Hx Diabetes Mellitus Type 1: Yes - HEMATOLOGICAL/ONCOLOGICAL Hx Blood Transfusions: Yes Hx Blood Transfusion Reaction: No - INTEGUMENTARY Hx Dermatological Problems: Yes Other/Comment: abcess - MUSCULOSKELETAL/RHEUMATOLOGICAL Hx Musculoskeletal Disorders: Yes (neuropathy) - GASTROINTESTINAL Hx Gastrointestinal Disorders: Yes Hx Gastroesophageal Reflux: Yes Other/Comment: Diabetic Gastroparesis - GENITOURINARY/GYNECOLOGICAL Hx Genitourinary Disorders: No - PSYCHIATRIC Hx Emotional Abuse: No Hx Substance Use: No - SURGICAL HISTORY Other/Comment: toes amputated from right foot - ANESTHESIA Hx Anesthesia Reactions: No Hx Malignant Hyperthermia: No Meds Allergies/Adverse Reactions: Allergies Allergy/AdvReac Type Severity Reaction Status Date / Time Narcotic/Dilaudid/Morphine AdvReac SHORTNESS Uncoded 11/23/17 18:09 OF BREATH - Medications Medications: Current Medications Acetaminophen (Tylenol 650 Mg Supp) 650 mg RC Q4H PRN PRN Reason: Fever >100.4 F Acetaminophen (Tylenol 650 Mg Supp) 650 mg RC Q4H PRN PRN Reason: Pain, moderate (4-7) Albuterol/Ipratropium (Duoneb 3 Mg/0.5 Mg (3 Ml) Ud) 3 ml IH [id number] [facility] Last Admin: 12/17/17 07:38 Dose: 3 ml Amlodipine Besylate (Norvasc) 2.5 mg PO DAILY [facility] Last Admin: 12/17/17 09:07 Dose: 2.5 mg Aspirin (Aspirin Chewable) 81 mg PO DAILY [facility] Last Admin: 12/17/17 09:06 Dose: 81 mg Dicyclomine HCl (Bentyl) 10 mg PO TID [facility] Last Admin: 12/17/17 09:06 Dose: 10 mg Fluoxetine HCl (Prozac) 40 mg PO DAILY [facility] Last Admin: 12/17/17 09:09 Dose: 40 mg Gabapentin (Neurontin) 300 mg PO TID [facility] PRN Reason: Protocol Last Admin: 12/17/17 09:07 Dose: 300 mg Sodium Chloride (Sodium Chloride 0.45%) 1,000 mls @ 100 mls/hr IV .Q10H [facility] Last Admin: 12/17/17 08:51 Dose: 100 mls/hr Insulin Detemir (Levemir) 20 unit SC [facility] Last Admin: 12/16/17 23:56 Dose: Not Given Insulin Human Lispro (Humalog Low) 0 units SC [facility] PRN Reason: Protocol Last Admin: 12/17/17 08:44 Dose: Not Given Lorazepam (Ativan) 1 mg PO BID PRN; Protocol PRN Reason: Anxiety Last Admin: 12/17/17 09:53 Dose: 1 mg Metoclopramide HCl (Reglan) 10 mg IVP [facility] Last Admin: 12/17/17 08:45 Dose: 10 mg Ondansetron HCl (Zofran Inj) 4 mg IVP Q6H PRN PRN Reason: Nausea/Vomiting Last Admin: 12/15/17 17:30 Dose: 4 mg Pantoprazole Sodium (Protonix Inj) 40 mg IVP Q12 [facility] Last Admin: 12/17/17 09:08 Dose: 40 mg Sucralfate (Carafate Tab) 1 gm PO QID [facility] Last Admin: 12/17/17 09:07 Dose: 1 gm Results - Vital Signs Recent Vital Signs: Last Vital Signs Temp 97.1 F L 12/17/17 07:53 Pulse 89 12/17/17 07:53 Resp 20 12/17/17 07:53 BP 159/84 H 12/17/17 09:07 Pulse Ox 95 12/17/17 07:53 - Labs Result Diagrams: 12/17/17 05:45 12/17/17 05:45 Labs: Laboratory Results - last 24 hr 12/15/17 12/15/17 12/16/17 16:21 21:24 00:20 WBC RBC Hgb Hct MCV MCH MCHC RDW Plt Count MPV Sodium Potassium Chloride Carbon Dioxide Anion Gap BUN Creatinine Est GFR ( Amer) Est GFR (Non-Af Amer) POC Glucose (mg/dL) 339 H 308 H Random Glucose Hemoglobin A1c Calcium Total Bilirubin AST ALT Alkaline Phosphatase Total Protein Albumin Globulin Albumin/Globulin Ratio Procalcitonin 2.23 H Cortisol AM Sample 12/16/17 12/16/17 12/16/17 06:00 06:00 07:09 WBC RBC Hgb Hct MCV MCH MCHC RDW Plt Count MPV Sodium Potassium Chloride Carbon Dioxide Anion Gap BUN Creatinine Est GFR ( Amer) Est GFR (Non-Af Amer) POC Glucose (mg/dL) 306 H Random Glucose Hemoglobin A1c 10.2 H Calcium Total Bilirubin AST ALT Alkaline Phosphatase Total Protein Albumin Globulin Albumin/Globulin Ratio Procalcitonin Cortisol AM Sample 15.8 12/16/17 12/16/17 12/16/17 11:04 16:08 18:55 WBC RBC Hgb Hct MCV MCH MCHC RDW Plt Count MPV Sodium Potassium Chloride Carbon Dioxide Anion Gap BUN Creatinine Est GFR ( Amer) Est GFR (Non-Af Amer) POC Glucose (mg/dL) 239 H 112 H 141 H Random Glucose Hemoglobin A1c Calcium Total Bilirubin AST ALT Alkaline Phosphatase Total Protein Albumin Globulin Albumin/Globulin Ratio Procalcitonin Cortisol AM Sample 12/16/17 12/17/17 12/17/17 21:31 05:45 05:45 WBC 8.8 D RBC 3.67 Hgb 10.2 L Hct 30.1 L MCV 82.0 MCH 27.8 MCHC 33.9 RDW 13.9 Plt Count 210 MPV 9.9 Sodium 137 Potassium 3.2 L Chloride 98 Carbon Dioxide 29 Anion Gap 13 BUN 23 H Creatinine 2.0 H Est GFR ( Amer) 31 Est GFR (Non-Af Amer) 26 POC Glucose (mg/dL) 174 H Random Glucose 199 H Hemoglobin A1c Calcium 8.0 L Total Bilirubin 0.4 AST 24 ALT 29 Alkaline Phosphatase 58 Total Protein 5.3 L Albumin 2.9 L Globulin 2.4 Albumin/Globulin Ratio 1.2 Procalcitonin Cortisol AM Sample 12/17/17 07:23 WBC RBC Hgb Hct MCV MCH MCHC RDW Plt Count MPV Sodium Potassium Chloride Carbon Dioxide Anion Gap BUN Creatinine Est GFR ( Amer) Est GFR (Non-Af Amer) POC Glucose (mg/dL) 203 H Random Glucose Hemoglobin A1c Calcium Total Bilirubin AST ALT Alkaline Phosphatase Total Protein Albumin Globulin Albumin/Globulin Ratio Procalcitonin Cortisol AM Sample
[2017-12-17 11:53] LABS: IRON 40 ug/dL (45-180)
[2017-12-17 12:10] LABS: % IRON SATURATION 12 % (20-55); TOTAL IRON BINDING CAPACITY 318 ug/dL (265-497)
--- NOTE | 2017-12-17 13:12 | PN ---
DATE: 12/17/2017 ENDOCRINOLOGY FOLLOWUP NOTE LOCATION: Room 368. SUBJECTIVE: This is a 56-year-old female with recent uncontrolled type 1 insulin-dependent diabetes presenting here with intractable vomiting and upper abdominal pain with possible exacerbation of diabetic gastroparesis and is now being followed closely for metabolic management. Her vomiting has subsided overnight and has been started today on a liquid diet as ordered. Her glucose levels are fluctuating and are ranging from 203-250 mg/dL. It was 174 at bedtime last night. The chemistries today showed a BUN of 23, sodium 137, potassium 3.2, chloride 98, CO2 of 29, glucose 199 and creatinine 2. Her hemoglobin A1c is 10.2% which is extremely elevated and indicative of suboptimal metabolic control of her diabetic condition even prior to this admission. Would recommend higher IV infusion rate because of apparent increased dehydration as noted there of. Would also continue the basal insulin given as Levemir at 20 units subcu at bedtime daily as given. We will continue also the very low-dose correction scale using Humalog insulin as ordered. As her oral intake is advanced to at least a soft solid diet, then may start her back on a very low dose of Humalog given before each meal as indicated. We will obtain serial chemistries and supplement accordingly as needed. We will follow. Tita Coe MD
--- NOTE | 2017-12-17 14:39 | CP.PCM.PN ---
Subjective - Date & Time of Evaluation Date of Evaluation: 12/17/17 Time of Evaluation: 10:35 - Subjective Subjective: Abdominal pain is better, nausea is better, no fevers. No more diarrhea. Objective - Vital Signs/Intake and Output Vital Signs (last 24 hours): Temp Pulse Resp BP Pulse Ox 97.1 F L 89 20 159/84 H 95 12/17/17 07:53 12/17/17 07:53 12/17/17 07:53 12/17/17 09:07 12/17/17 07:53 Intake and Output: 12/17/17 12/17/17 06:59 18:59 Intake Total 0 Balance 0 - Medications Medications: Current Medications Acetaminophen (Tylenol 650 Mg Supp) 650 mg RC Q4H PRN PRN Reason: Fever >100.4 F Acetaminophen (Tylenol 650 Mg Supp) 650 mg RC Q4H PRN PRN Reason: Pain, moderate (4-7) Albuterol/Ipratropium (Duoneb 3 Mg/0.5 Mg (3 Ml) Ud) 3 ml IH [id number] [facility] Last Admin: 12/17/17 07:38 Dose: 3 ml Amlodipine Besylate (Norvasc) 2.5 mg PO DAILY [facility] Last Admin: 12/17/17 09:07 Dose: 2.5 mg Aspirin (Aspirin Chewable) 81 mg PO DAILY [facility] Last Admin: 12/17/17 09:06 Dose: 81 mg Dicyclomine HCl (Bentyl) 10 mg PO TID [facility] Last Admin: 12/17/17 09:06 Dose: 10 mg Fluoxetine HCl (Prozac) 40 mg PO DAILY [facility] Last Admin: 12/17/17 09:09 Dose: 40 mg Gabapentin (Neurontin) 300 mg PO TID [facility] PRN Reason: Protocol Last Admin: 12/17/17 09:07 Dose: 300 mg Sodium Chloride (Sodium Chloride 0.45%) 1,000 mls @ 100 mls/hr IV .Q10H [facility] Last Admin: 12/17/17 08:51 Dose: 100 mls/hr Insulin Detemir (Levemir) 20 unit SC HS [facility] Last Admin: 12/16/17 23:56 Dose: Not Given Insulin Human Lispro (Humalog Low) 0 units SC ACHS [facility] PRN Reason: Protocol Last Admin: 07/20/18 08:44 Dose: Not Given Lorazepam (Ativan) 1 mg PO BID PRN; Protocol PRN Reason: Anxiety Last Admin: 12/17/17 09:53 Dose: 1 mg Metoclopramide HCl (Reglan) 10 mg IVP ACHS [facility] Last Admin: 12/17/17 08:45 Dose: 10 mg Ondansetron HCl (Zofran Inj) 4 mg IVP Q6H PRN PRN Reason: Nausea/Vomiting Last Admin: 12/15/17 17:30 Dose: 4 mg Pantoprazole Sodium (Protonix Inj) 40 mg IVP Q12 [facility] Last Admin: 12/17/17 09:08 Dose: 40 mg Sucralfate (Carafate Tab) 1 gm PO QID [facility] Last Admin: 12/17/17 09:07 Dose: 1 gm - Labs Labs: 12/17/17 05:45 12/17/17 05:45 - Constitutional Appears: Chronically Ill - Head Exam Head Exam: NORMAL INSPECTION - Respiratory Exam Respiratory Exam: Decreased Breath Sounds - Cardiovascular Exam Cardiovascular Exam: +S1, +S2 - GI/Abdominal Exam GI & Abdominal Exam: Soft. absent: Tenderness Assessment and Plan - Assessment and Plan (Free Text) Plan: Assessment systemic inflammatory response syndrome, consider due to acute exacerbation of gastroparesis, less likely intra-abdominal infection history of UTI with Klebsiella oxytoca gastroparesis HTN DM history of TIA history of esophageal ulcers S/P cholecystectomy S/P S/P hysterectomy S/P right foot partial amputation Plan on Zosyn day 2 - blood cx are negative and WBC count has normalized; reviewed CT A/P which does not show acute findings - will d/c antibiotics and observe; follow up further GI evaluation and recommendations will continue to monitor clinically
[2017-12-17 15:43] LABS: COMPLEMENT C4 41.7 mg/dL (14.0-44.0)
[2017-12-17 16:12] LABS: FERRITIN 49.6 ng/mL
[2017-12-17 16:42] LABS: FOLATE 12.3 ng/mL
[2017-12-17] MEDS ORDERED: Insulin Detemir 100 units/ml Vial (Levemir) SC SCH (22:00)
[2017-12-18] MEDS: Albuterol-Ipratrop 3 mg / 0.5 (3 ml) UD IH SCH ×5 (01:57→19:00)
--- NOTE | 2017-12-18 04:41 | CON ---
DATE: 12/17/2017 HISTORY OF PRESENT ILLNESS: This is a 56-year-old white female with past medical history of diabetes, GERD, status post gastroparesis, COPD, came here with abdominal pain, nausea, vomiting, and patient was dehydrated and also having tremors on both the hands. The patient also described the pain as crampy, non-radiating, and also had some loose stools. Daughter is at the bedside. PAST MEDICAL HISTORY: As above. PAST SURGICAL HISTORY: Hemicolectomy, , hernia repair, and right metatarsal amputation. SOCIAL HISTORY: Does not smoke, does not drink. PHYSICAL EXAMINATION: VITAL SIGNS: Blood pressure 94/50. HEENT: Normocephalic, atraumatic. NECK: Supple. NEUROLOGIC: Awake, oriented to self and place. Cranial nerves II through XII were tested. Pupils reactive. EOM intact. Visual aburto full. No facial asymmetry. Tongue in the midline. Motor examination: Spontaneous movement of the extremities noted, except bilateral hand tremors, which appears to be metabolic. LABORATORY DATA: WBC 11.7, hemoglobin 10.2, hematocrit 29.9, and platelets 196. Sodium 139, potassium 3.2, chloride 99, CO2 of 31, BUN 20 and creatinine 1.5. Glucose 278. IMPRESSION AND PLAN: This is a 56-year-old with past medical history of hypertension, uncontrolled diabetes, retinopathy, neuropathy, gastroparesis, and presented to the hospital with nausea, vomiting and dehydration, and uncontrolled diabetes. Tremors basically looks like more from metabolic, and CAT scan of the head was done, which was reported negative. Continue present management. We will follow up. Juan Manuel Knight MD
[2017-12-18] MEDS ORDERED: Dextrose 50% SYRINGE Inj (50 ml) ONE (07:52)
[2017-12-18 08:11] LABS: HEMOGLOBIN 10.8 g/dL (12.0-16.0); MEAN CELL VOLUME 82.4 fl (80.0-105.0); MEAN CORPUSCULAR HEMOGLOBIN 27.9 pg (25.0-35.0); MEAN CORPUSCULAR HGB CONC 33.9 g/dl (31.0-37.0); MEAN PLATELET VOLUME 10.3 fl (7.0-11.0); RBC 3.87 10^6/uL (3.5-6.1); RED CELL DISTRIBUTION WIDTH 13.5 % (11.5-14.5); WHITE BLOOD COUNT 9.6 10^3/ul (4.5-11.0)
[2017-12-18] MEDS: Insulin Lispro 1 UNITS/0.01 ML SC SCH ×3 (08:16→17:15)
[2017-12-18] MEDS: Insulin Lispro (humaLOG) LOW Coverage SC SCH ×4 (08:16→21:42)
[2017-12-18 08:35] LABS: ALB/GLOB RATIO 1.1 (1.1-1.8); ALBUMIN 2.9 g/dL (3.0-4.8)
[2017-12-18 09:42] LABS: ALB/GLOB RATIO 1.2 (1.1-1.8); ALBUMIN 2.9 g/dL (3.0-4.8); CALCIUM 8.1 mg/dL (8.4-10.5)
--- NOTE | 2017-12-18 10:03 | PN ---
DATE: 12/18/2017 SUBJECTIVE: The patient is in bed, in no acute distress, nontoxic. No fevers. PHYSICAL EXAMINATION: VITAL SIGNS: Temperature is 98, blood pressure is 120/60, respiratory rate of 18. HEENT: Examination of HEENT is unremarkable. NECK: Supple. LUNGS: Have decreased breath sounds. HEART: Normal S1 and S2. ABDOMEN: Soft. LABORATORY DATA: Laboratory examination reveals the white count is 9.6, hemoglobin of 10. BUN of 22, creatinine of 1.7, potassium of 2.7. Blood cultures are negative. Urine cultures are negative. The patient had a CAT scan of the head. No acute findings. Dr. Juan Manuel Knight's note is reviewed. ASSESSMENT AND PLAN: This is a 56-year-old with systemic inflammatory response syndrome, probably exacerbation of gastroparesis, less likely to be intraabdominal infection and hypertensive, diabetic. Day #3 of cultures are negative. CAT scan is negative. Now, off of antibiotics. We will follow with you. Marc Sales MD
--- NOTE | 2017-12-18 10:09 | PN ---
DATE: 12/18/2017 PULMONARY PROGRESS NOTE SUBJECTIVE: The patient was seen and examined at the bedside. She is sleepy, but not in any respiratory distress. She is receiving DuoNeb inhalation on as needed basis. PHYSICAL EXAMINATION: VITAL SIGNS: Her temperature is 97.9, pulse 65, respirations 18, pulse oximetry is 94 on room air, blood pressure is 120/70. HEENT: Head, ears, nose and throat are within normal limits. NECK: Supple with no jugular vein distentions. CARDIOVASCULAR: S1, S2. No S3. Regular. PULMONARY: Good bilateral breath sounds. No rhonchi, rales or wheezing. GASTROINTESTINAL: Soft. Still slightly tender bilaterally. EXTREMITIES: No pedal edema. No cyanosis. SKIN: No acute skin rash. NEUROLOGIC: No focal deficits. LABORATORY DATA: I reviewed today's blood work. Her potassium is low at 2.7, which will be corrected. WBCs are 9.6, the hemoglobin of 10.8. ASSESSMENT: A 56-year-old patient, admitted with diffuse abdominal pain, nausea and abnormal findings on the CT scan of abdomen with fluffy infiltrates in both lower lobe, ? aspiration pneumonia. Clinically, she is improving. She has been diagnosed with systemic inflammatory response, possible gastroparesis. She is also hypertensive, diabetic with history of transient ischemic attack. Clinically, her pulmonary status is stable. It does not appear to be a clinical presentation of aspiration pneumonia. Antibiotics per attending and Infectious Disease. Jose G Ibrahim MD
--- NOTE | 2017-12-18 12:11 | CARD ---
APPROVED REPORT Date of service: 12/18/2017 EKG Measurement Heart [id number] <Conclusion> Sinus rhythm with premature atrial complexes T wave abnormality, consider lateral ischemia Prolonged QT Abnormal ECG
--- NOTE | 2017-12-18 13:12 | CP.PCM.PN ---
Subjective - Date & Time of Evaluation Date of Evaluation: 12/18/17 Time of Evaluation: 10:00 - Subjective Subjective: Patient got ativan last night and was sleeping this am. As per nurse no nausea, vomiting. No change in bowel habits Objective - Vital Signs/Intake and Output Vital Signs (last 24 hours): Temp Pulse Resp BP Pulse Ox 97.9 F 75 19 127/69 94 L 12/18/17 06:00 12/18/17 10:00 12/18/17 06:00 12/18/17 06:00 12/18/17 06:00 Intake and Output: 12/18/17 12/18/17 06:59 18:59 Intake Total 420 120 Balance 420 120 - Medications Medications: Current Medications Acetaminophen (Tylenol 650 Mg Supp) 650 mg RC Q4H PRN PRN Reason: Fever >100.4 F Acetaminophen (Tylenol 650 Mg Supp) 650 mg RC Q4H PRN PRN Reason: Pain, moderate (4-7) Albuterol/Ipratropium (Duoneb 3 Mg/0.5 Mg (3 Ml) Ud) 3 ml IH [id number] [facility] Last Admin: 12/18/17 07:28 Dose: 3 ml Amlodipine Besylate (Norvasc) 5 mg PO QPM [facility] Last Admin: 12/17/17 17:22 Dose: 5 mg Aspirin (Aspirin Chewable) 81 mg PO DAILY [facility] Last Admin: 12/18/17 09:40 Dose: 81 mg Dicyclomine HCl (Bentyl) 10 mg PO TID [facility] Last Admin: 12/18/17 09:41 Dose: 10 mg Fluoxetine HCl (Prozac) 40 mg PO DAILY [facility] Last Admin: 12/18/17 09:45 Dose: 40 mg Gabapentin (Neurontin) 300 mg PO TID [facility] PRN Reason: Protocol Last Admin: 12/18/17 09:44 Dose: 300 mg Sodium Chloride (Sodium Chloride 0.45%) 1,000 mls @ 100 mls/hr IV .Q10H [facility] Last Admin: 12/17/17 08:51 Dose: 100 mls/hr Potassium Chloride (Potassium Chloride 10 Meq/100 Ml) 10 meq in 100 mls @ 50 mls/hr IVPB Q2H [facility] Stop: 12/18/17 13:14 Last Admin: 12/18/17 09:44 Dose: 50 mls/hr Insulin Detemir (Levemir) 14 unit SC [facility] Insulin Human Lispro (Humalog Low) 0 units SC [facility] PRN Reason: Protocol Last Admin: 12/18/17 08:16 Dose: Not Given Insulin Human Lispro (Humalog) 4 units SC AC [facility] Last Admin: 12/18/17 08:16 Dose: Not Given Ketorolac Tromethamine (Toradol) 25 mg IVP Q8H PRN PRN Reason: Pain, moderate (4-7) Lorazepam (Ativan) 1 mg PO BID PRN; Protocol PRN Reason: Anxiety Last Admin: 12/17/17 22:35 Dose: 1 mg Metoclopramide HCl (Reglan) 5 mg IVP [facility] Last Admin: 12/18/17 09:46 Dose: 5 mg Ondansetron HCl (Zofran Inj) 4 mg IVP Q6H PRN PRN Reason: Nausea/Vomiting Last Admin: 12/15/17 17:30 Dose: 4 mg Pantoprazole Sodium (Protonix Inj) 40 mg IVP Q12 [facility] Last Admin: 12/18/17 09:45 Dose: 40 mg Sucralfate (Carafate Tab) 1 gm PO [facility] Last Admin: 12/18/17 09:41 Dose: 1 gm - Labs Labs: 12/18/17 07:00 12/18/17 09:00 - Constitutional Appears: Well, Non-toxic - Head Exam Head Exam: ATRAUMATIC, NORMAL INSPECTION, NORMOCEPHALIC - Respiratory Exam Respiratory Exam: Clear to Ausculation Bilateral, NORMAL BREATHING PATTERN - Cardiovascular Exam Cardiovascular Exam: REGULAR RHYTHM, +S1, +S2. absent: Murmur - GI/Abdominal Exam GI & Abdominal Exam: Soft, Normal Bowel Sounds. absent: Tenderness - Extremities Exam Extremities Exam: Full ROM, Normal Capillary Refill, Normal Inspection. absent : Joint Swelling, Pedal Edema - Neurological Exam Neurological Exam: Alert, CN II-XII Intact, Oriented x3 Assessment and Plan - Assessment and Plan (Free Text) Assessment: 56 yr old with HTN, DM, uncontrolled admitted with abdominal pain due to gastroparesis. Continue supportive care. Low fat and low fiber samll meals. Electrolytes repletion. Will sign off.
[2017-12-18] MEDS ORDERED: Potassium Chloride 20 mEq ER Tab PO SCH (13:30)
--- NOTE | 2017-12-18 13:34 | RAD ---
Date of service: 12/18/2017 HISTORY: CHF COMPARISON: 11/21/2017. FINDINGS: LUNGS: The lungs are well inflated. There is ill-defined airspace in the left lower lobe. PLEURA: No significant pleural effusion identified, no pneumothorax apparent. CARDIOVASCULAR: Normal. OSSEOUS STRUCTURES: No significant abnormalities. VISUALIZED UPPER ABDOMEN: Normal. OTHER FINDINGS: None. IMPRESSION: No radiographic evidence for congestive heart failure. Disease ill-defined airspace disease in the left lower lobe may represent subsegmental atelectasis however superimposed pneumonia cannot be excluded. Follow-up is advised.
--- NOTE | 2017-12-18 14:21 | PN ---
DATE: 12/18/2017 ENDOCRINOLOGY FOLLOWUP NOTE LOCATION: Room 368. SUBJECTIVE: This is a 56-year-old female with recent uncontrolled type 1 insulin-dependent diabetes and is now being followed closely for metabolic management. She presented here with acute exacerbation of diabetic gastroparesis with upper abdominal pain and intractable dyspepsia and vomiting episodes and continues to have very poor and suboptimal oral intake as noted yesterday and overnight. Her glucose levels were very low overnight and continues to only be on a liquid diet which will still be continued even for today's diet or meal plan as suggested by the GI specialist, Dr. Zambrano. The glucose levels dropped to 32 mg/dL early this morning with a repeat level of 123 mg/dL. It was 273-289 at bedtime last night. Her chemistry showed a BUN of 23, sodium 136, potassium 2.7, chloride 98, CO2 of 31, glucose 41 and creatinine 1.7. She is receiving potassium supplementation at this time as ordered. This is expected because of the recent intractable vomiting episodes with electrolyte losses as expected. We will modify her current basal and bolus insulin regimen and lower the Levemir given as basal insulin overnight down to 14 units subcu at bedtime daily as ordered. We will continue the Humalog given as 4 units three times a day before meals as tolerated because of the very nil and suboptimal meal portions as taken. We will obtain serial chemistries and supplement accordingly as needed. We will follow this. Tita Coe MD
--- NOTE | 2017-12-18 14:31 | PN ---
DATE: 12/18/2017 SUBJECTIVE: I saw her now resting comfortably in bed. Family present. She ate her lunch. She is having no pain. I was called earlier by nursing about low potassium. I gave verbal orders. I do not see them in the chart yet. I will talk to the nursing, but she is feeling a little bit better. PHYSICAL EXAMINATION: VITAL SIGNS: She has 97.9 temp, 65 pulse, 127/69 blood pressure, 19 respiratory rate, 94% O2 sat on room air. HEENT: Head is atraumatic, normocephalic. She is actually smiling. HEART: Regular rate. LUNGS: Clear to auscultation. ABDOMEN: Soft, nontender. Positive bowel sounds. EXTREMITIES: No edema. MEDICATIONS: She is on aspirin, Ativan, Bentyl, Carafate, DuoNebs, insulin, Levemir, Neurontin, Norvasc, Protonix, Prozac, Reglan, IV fluids, Toradol, Tylenol and Zofran. LABORATORY DATA: She has a 136 sodium; potassium is 2.7, I am going to give her K-riders today; BUN 22; creatinine 1.7; GFR is 31; calcium is 8.1; sugar is 95; total bili is 0.4; AST is 16; ALT is 27; alk phos is 54; total protein is 5.3. Vitamin D is very low at 12.8, I will add vitamin D and potassium. Her white count is 9.6, hemoglobin 10.8, hematocrit 31.9, platelets of 253. ASSESSMENT AND PLAN: She is being seen by GI, Pulmonary and Infectious Disease. There is a chest x-ray pending. Also, Neurology saw her. I will replace potassium. I am going to give her vitamin D and I will check her labs tomorrow. She is doing well. I will try and discharge her tomorrow. We will continue with aggressive treatment and care on [place]. Josafat Dent DO
--- NOTE | 2017-12-18 16:03 | CP.PCM.PN ---
Subjective - Date & Time of Evaluation Date of Evaluation: 12/18/17 Time of Evaluation: 16:03 - Subjective Subjective: Nephrology Consultation Note: Assessment: Stable Acute Kidney Injury (N17.9) likely multi-factorial due to recent IV contrast, pre-renal state, hemodynamic injury due to BP fluctuations urine retention r/o neurogenic bladder microscopic hematuria 3+ proteinuria with hypoalbuniemia ? nephrotic syndrome Anemia , hypokalemia Diabetic chronic Kidney Disease (E11.22) Hypertensive Chronic Kidney Disease (I12.9) Chronic Kidney Disease (N18.1) Stage with ? mg proteinuria (R80.9) likely due to DM Type 1 diabetes Mellitus (>20 years) complicated by neuropathy, retinopathy and gastroparesis TIA, GERD, kidney stones, hx of hemicolectomy Plan No acute need for renal replacement therapy at this time. Hypertension control with meds as ordered. continue with IVF as ordered. supplement lytes as needed. hypokalemia: replace, check a magnesium levels Monitor Input/Output consider urology eval for possible neurogenic bladder and microscopic hematuria (to eval for possible cystoscopy) GI, endocrine following Physical Examination: General Appearance: uncomfortable, in no acute respiratory distress, co- operative . Vitals reviewed and noted as below Head; Atraumatic, normocephalic ENT: no ulcers no thrush EYES: Eye muscles and extraocular movement intact. Sclera is anicteric. Neck; supple Lungs: Normal respiratory rate/effort. Breath sounds bilateral equal and clear Heart: Normal rate. s1s2 normal. No rub or gallop. Extremities: no edema. No varicose veins Neurological: Patient is alert, awake and oriented to person, place and time. No focal deficit. Strength bilateral appropriate and equal Skin: Warm and dry. Normal turgor. No rash. Abdomen: Abdomen is soft. Bowel sounds +. There is no abdominal tenderness, no guarding/rigidity no organomegaly Psych: normal insight and normal affect/mood MSK: no joint tenderness or swelling. Objective - Vital Signs/Intake and Output Vital Signs (last 24 hours): Temp Pulse Resp BP Pulse Ox 97.9 F 83 19 127/69 94 L 12/18/17 06:00 12/18/17 14:00 12/18/17 06:00 12/18/17 06:00 12/18/17 06:00 Intake and Output: 12/18/17 12/18/17 06:59 18:59 Intake Total 420 120 Balance 420 120 - Medications Medications: Current Medications Acetaminophen (Tylenol 650 Mg Supp) 650 mg RC Q4H PRN PRN Reason: Fever >100.4 F Acetaminophen (Tylenol 650 Mg Supp) 650 mg RC Q4H PRN PRN Reason: Pain, moderate (4-7) Albuterol/Ipratropium (Duoneb 3 Mg/0.5 Mg (3 Ml) Ud) 3 ml IH [id number] [facility] Last Admin: 12/18/17 13:32 Dose: 3 ml Amlodipine Besylate (Norvasc) 5 mg PO QPM [facility] Last Admin: 12/17/17 17:22 Dose: 5 mg Aspirin (Aspirin Chewable) 81 mg PO DAILY [facility] Last Admin: 12/18/17 09:40 Dose: 81 mg Dicyclomine HCl (Bentyl) 10 mg PO TID [facility] Last Admin: 12/18/17 14:43 Dose: 10 mg Fluoxetine HCl (Prozac) 40 mg PO DAILY [facility] Last Admin: 12/18/17 09:45 Dose: 40 mg Gabapentin (Neurontin) 300 mg PO TID [facility] PRN Reason: Protocol Last Admin: 12/18/17 14:44 Dose: 300 mg Sodium Chloride (Sodium Chloride 0.45%) 1,000 mls @ 100 mls/hr IV .Q10H [facility] Last Admin: 12/17/17 08:51 Dose: 100 mls/hr Insulin Detemir (Levemir) 14 unit SC [facility] Insulin Human Lispro (Humalog Low) [address] [facility] PRN Reason: Protocol Last Admin: 12/18/17 13:15 Dose: Not Given Insulin Human Lispro (Humalog) 4 units SC AC [facility] Last Admin: 12/18/17 13:14 Dose: Not Given Ketorolac Tromethamine (Toradol) 25 mg IVP Q8H PRN PRN Reason: Pain, moderate (4-7) Last Admin: 12/18/17 13:17 Dose: 25 mg Lorazepam (Ativan) 1 mg PO BID PRN; Protocol PRN Reason: Anxiety Last Admin: 12/17/17 22:35 Dose: 1 mg Metoclopramide HCl (Reglan) [address] [facility] Last Admin: 07/21/18 13:17 Dose: 5 mg Ondansetron HCl (Zofran Inj) 4 mg IVP Q6H PRN PRN Reason: Nausea/Vomiting Last Admin: 12/15/17 17:30 Dose: 4 mg Pantoprazole Sodium (Protonix Inj) 40 mg IVP Q12 [facility] Last Admin: 12/18/17 09:45 Dose: 40 mg Potassium Chloride (K-Dur 20 Meq Er Tab) 20 meq PO BRK [facility] Sucralfate (Carafate Tab) 1 gm PO ACHS [facility] Last Admin: 12/18/17 13:14 Dose: Not Given - Labs Labs: 12/18/17 07:00 12/18/17 09:00
[2017-12-18] MEDS: Potassium Chloride 20 mEq ER Tab PO SCH (17:17)
[2017-12-18 18:25] LABS: ALB/GLOB RATIO 1.2 (1.1-1.8)
[2017-12-18 19:03] LABS: ALBUMIN 3.1 g/dL (3.0-4.8); CALCIUM 8.2 mg/dL (8.4-10.5)
[2017-12-18] MEDS: Sodium Chloride 0.45% 1,000 ML IV SCH (21:55)
[2017-12-18] MEDS ORDERED: Insulin Detemir 100 units/ml Vial (Levemir) SC SCH (22:00)
[2017-12-19] MEDS: Albuterol-Ipratrop 3 mg / 0.5 (3 ml) UD IH SCH ×3 (01:11→13:35)
[2017-12-19] MEDS: Sodium Chloride 0.45% 1,000 ML IV SCH (05:39)
[2017-12-19 06:20] VITALS: BP 126/73; PULSE 95; TEMP 97.7; O2SAT 95
[2017-12-19 07:46] LABS: ALB/GLOB RATIO 1.2 (1.1-1.8); ALBUMIN 2.9 g/dL (3.0-4.8)
[2017-12-19 07:48] LABS: HEMOGLOBIN 10.3 g/dL (12.0-16.0); MEAN CELL VOLUME 80.3 fl (80.0-105.0); MEAN CORPUSCULAR HEMOGLOBIN 27.8 pg (25.0-35.0); MEAN CORPUSCULAR HGB CONC 34.7 g/dl (31.0-37.0); MEAN PLATELET VOLUME 9.7 fl (7.0-11.0); RBC 3.7 10^6/uL (3.5-6.1); RED CELL DISTRIBUTION WIDTH 13.4 % (11.5-14.5); WHITE BLOOD COUNT 7.1 10^3/ul (4.5-11.0)
[2017-12-19] MEDS: Insulin Lispro 1 UNITS/0.01 ML SC SCH ×2 (08:24→12:47)
[2017-12-19] MEDS: Insulin Lispro (humaLOG) LOW Coverage SC SCH ×2 (08:24→12:12)
[2017-12-19] MEDS: Potassium Chloride 20 mEq ER Tab PO SCH (08:31)
[2017-12-19] MEDS ORDERED: Potassium Chloride 20 mEq ER Tab PO SCH (08:45)
[2017-12-19 09:47] VITALS: RESP 16
--- NOTE | 2017-12-19 11:17 | PN ---
DATE: 12/19/2017 ENDOCRINOLOGY FOLLOWUP NOTE LOCATION: Room 368. SUBJECTIVE: This is a 56-year-old female admitted with intractable vomiting and upper abdominal pain and dyspepsia, who continues to have variable and suboptimal meal portions and is now being followed closely also for metabolic management. Her glycemic levels are improved, but on the low side of normal because of the variable and nil oral intake at this time. Her glucose levels have ranged from 61-99 and 239 mg/dL. Her latest chemistry showed a BUN of 18, sodium 138, potassium 3.1, chloride 101, CO2 of 29, glucose 71 and creatinine 1.5. She has received potassium supplementation as given for the last 48 hours with improved electrolytes and serum sodium with serum sodium and potassium improving as noted. ASSESSMENT: This is a 56-year-old female with recent uncontrolled type 1 insulin-dependent diabetes presenting here with acute exacerbation of diabetic gastroparesis with continued variable and suboptimal meal portions at this time. She also has diabetic microvascular complications of retinopathy and polyneuropathy and early nephropathy. She also has diabetic macrovascular complications of coronary artery disease and peripheral arterial disease and vasculopathy. Moreover, she also had recurrent transient ischemic attacks with underlying cerebrovascular disease as noted. PLAN OF MANAGEMENT: We will continue the very low-dose correction scale using Humalog insulin as ordered. We will also continue the low-dose mealtime Humalog given as 4 units subcu t.i.d. before meals as ordered. We will lower the basal insulin with Levemir given as 10 units subcu at bedtime daily to start tonight. We will titrate incrementally as indicated and also as her oral intake is improved and advanced accordingly. We will obtain serial chemistries and supplement accordingly as needed. We will follow. Tita Coe MD
[2017-12-19 12:57] LABS: CALCIUM 8.2 mg/dL (8.4-10.5)
[2017-12-19] MEDS ORDERED: Potassium Chloride 20 mEq ER Tab PO ONE (13:01)
--- NOTE | 2017-12-19 14:26 | PN ---
DATE: 12/19/2017 SUBJECTIVE: The patient is seen earlier today in room 368, bed 1. PHYSICAL EXAMINATION: VITAL SIGNS: Temperature is 97, blood pressure is 120/70, respiratory rate of 18. HEENT: Examination of HEENT is unremarkable. NECK: Supple. LUNGS: Have decreased breath sounds. HEART: Normal S1, S2. ABDOMEN: Soft, nontender. LABORATORY DATA: Laboratory examination reveals a white count of 7.1, hemoglobin of 10, platelets of 239. Chemistries reveals a BUN of 15, creatinine of 1.2. Urinalysis is noted and microbiology reveals the blood cultures are negative, urine cultures are negative. Review of orders reveals the patient to be off of antibiotics. ASSESSMENT AND PLAN: A 56-year-old female with systemic inflammatory response syndrome, probably exacerbation of a gastroparesis, infectious etiology less common in a patient who has diabetes and hypertension and cultures negative. CAT scan is negative. Off of antibiotics. We will follow closely with you. Marc Sales MD
[2017-12-19] MEDS ORDERED: Magnesium Oxide 400 mg Tab UD PO SCH (18:00)
[2017-12-19] MEDS ORDERED: Insulin Detemir 100 units/ml Vial (Levemir) SC SCH (22:00)
--- NOTE | 2017-12-20 00:07 | CON ---
DATE: 12/19/2017 CONSULT SERVICE: Cardiology. REASON FOR THE CONSULTATION: Arrhythmia, APCs, and PVCs. REASON FOR DICTATION: Covering Dr. Carter Farmer. BRIEF CLINICAL HISTORY: This is a 56-year-old female with past medical history significant for diabetes, hypertension, hyperlipidemia, peripheral arterial disease status post right foot toe amputation admitted with diarrhea, electrolyte imbalance found to be APCs. Cardiology consult called. The patient denies any chest pain, shortness of breath or any palpitations. PAST MEDICAL HISTORY: Significant for diabetes, hypertension, hyperlipidemia, diabetic neuropathy, gastroparesis, irritable bowel syndrome, TIA, nausea, vomiting, history of COPD, history of CVA, history of bilateral cataract, history of right PAD status post right toe amputation. PAST SURGICAL HISTORY: Significant for right foot toe amputation, hernia and gallbladder removal surgery. FAMILY HISTORY: Significant for coronary artery disease and diabetes. SOCIAL HISTORY: Denies smoking. Denies any history of alcohol abuse. ALLERGIES: ALLERGIES TO DILAUDID AND MORPHINE. CURRENT MEDICATIONS: The patient is on aspirin, Bentyl, Prozac, Neurontin, Ativan, Reglan, omeprazole, Carafate, Norvasc, Levemir, Humalog and Ultram. REVIEW OF SYSTEMS: As per HPI. PREVIOUS CARDIAC WORKUP: The patient has a stress test and echo an year ago by primary tobacco grader essentially negative. PHYSICAL EXAMINATION: VITAL SIGNS: Height of the patient is 5 feet 2 inches, weight of the patient 125 pounds, body mass index kg/m2. Temperature afebrile, heart rate 97, blood pressure 126/73. HEENT: PERRLA. Extraocular muscles are intact. NECK: Supple. No carotid bruit. No thyromegaly. CHEST: Clear to auscultation. HEART: S1 and S2 regular. ABDOMEN: Soft. EXTREMITIES: Clubbing and cyanosis negative. LABORATORY DATA: Blood workup as follows; WBC ____, hemoglobin 10, hematocrit 29.7 and platelet count 239. Chemistry shows sodium 138, potassium 3.1, chloride 101, carbon dioxide 29, anion gap of 11, BUN 18, creatinine 1.5. IMPRESSION: Acute kidney injury, dehydration, severe hypokalemia, on admission potassium is 2.8 and multiple atrial premature complexes noted. After supplementation of electrolyte, hemodynamically stable, history of diabetes, hyperlipidemia, history of gastroparesis, history of irritable bowel syndrome, history of diabetes, history of peripheral artery disease status post right foot toe amputation, history of stress test an year ago. RECOMMENDATIONS: Aggressive electrolytes management, and supplementation, continue IV fluids, suggest the patient to have a stress test as outpatient. The patient follow with PMD and had a stress test year ago and follow up later. I will supplement electrolyte, I discussed with Dr. Dent. We will transfer care tomorrow to Dr. Dent. Thank you Dr. Dent for providing us the opportunity in taking of the patient, Ting Monaco. Ani Kinsey MD
--- NOTE | 2017-12-20 01:57 | DS ---
I saw Jacinda Maguire resting comfortably in bed. She is in a little bit of pain. She ate everything for breakfast. She will get a shot of some Toradol this morning. She has not had it in 7 to 8 hours. The plan is to discharge her today. Her potassium is low, I will replace the potassium and hopefully at 11 o'clock a.m., potassium will be better. MEDICATIONS: She is currently on IV fluids, aspirin, Ativan, Bentyl, Carafate, DuoNebs, insulin, Levemir, potassium replacement, Neurontin, Norvasc, Protonix, Prozac, Reglan, Toradol, Tylenol, tramadol, Zofran. PHYSICAL EXAMINATION: VITAL SIGNS: She has a 97.7 temperature, 95 pulse, 126/70 blood pressure, 16 respiratory rate and 95% O2 sat on room air. HEENT: Head is atraumatic, normocephalic. Throat is moist. NECK: Supple. HEART: Regular rate. LUNGS: Clear to auscultation. ABDOMEN: Soft. EXTREMITIES: No edema. LABORATORY DATA: She has a 7.1 white count, 10.3 hemoglobin, 29.7 hematocrit with 239 platelets. She has a 138 sodium; potassium 3.2, I gave her 40 mEq of potassium chloride. BUN is 18; creatinine 1.5, the best it has been. GFR is up to 36, sugar is 71, calcium is 8, total bili is 0.2, AST is 20, ALT is 30, alk phos is 52, total protein is 5.3. The urine came back no growth; so, she would not any antibiotics. PLAN: To discharge her today. She was seen by GI and Pulmonary and Infectious Disease. After recheck of the potassium, my plan is to discharge her today who was here for gastroparesis, severe abdominal pain. Josafat Dent DO MTDD
[2017-12-21 06:47] LABS: ALPHA-1-GLOBULIN (PEP) 0.4 g/dL (0.2-0.3)
== END 2017-12-19 15:11 | disposition home or self-care (01) | DRG 74 ==
LOC: ED 11:14 → ERH 15:40 → 3RNO 16:35
PROVIDERS: ADMIT Family Medicine; ATTEND Family Medicine
DX: E10.43 Type 1 diabetes mellitus with diabetic autonomic (poly)neuropathy (principal); N17.9 Acute kidney failure, unspecified; N04.9 Nephrotic syndrome with unspecified morphologic changes; R65.10 Systemic inflammatory response syndrome (SIRS) of non-infectious origin without acute organ dysfunction; K31.84 Gastroparesis; E86.0 Dehydration; E10.42 Type 1 diabetes mellitus with diabetic polyneuropathy; E10.65 Type 1 diabetes mellitus with hyperglycemia; E10.21 Type 1 diabetes mellitus with diabetic nephropathy; E10.22 Type 1 diabetes mellitus with diabetic chronic kidney disease; E10.319 Type 1 diabetes mellitus with unspecified diabetic retinopathy without macular edema; E10.51 Type 1 diabetes mellitus with diabetic peripheral angiopathy without gangrene; I12.9 Hypertensive chronic kidney disease with stage 1 through stage 4 chronic kidney disease, or unspecified chronic kidney disease; N18.9 Chronic kidney disease, unspecified; J44.9 Chronic obstructive pulmonary disease, unspecified; E87.6 Hypokalemia; D64.9 Anemia, unspecified; F32.9 Major depressive disorder, single episode, unspecified; K21.0 Gastro-esophageal reflux disease with esophagitis; E78.5 Hyperlipidemia, unspecified; K29.60 Other gastritis without bleeding; K31.7 Polyp of stomach and duodenum; K58.0 Irritable bowel syndrome with diarrhea; R31.29 Other microscopic hematuria; I49.1 Atrial premature depolarization; F41.9 Anxiety disorder, unspecified; Z89.421 Acquired absence of other right toe(s); Z86.73 Personal history of transient ischemic attack (TIA), and cerebral infarction without residual deficits; Z79.4 Long term (current) use of insulin; Z87.440 Personal history of urinary (tract) infections; Z82.49 Family history of ischemic heart disease and other diseases of the circulatory system; Z83.3 Family history of diabetes mellitus; Z88.5 Allergy status to narcotic agent

== ENCOUNTER 2018-02-05 21:32 | Inpatient (IN) | payer BC, MEDICARE ==
[2018-02-05 21:37] VITALS: BMI 17.7
[2018-02-05] MEDS ORDERED: Sodium Chloride 0.9% 1,000 ML IV STA (21:58)
[2018-02-05] MEDS ORDERED: Naloxone 0.4 mg/ml Inj (Adult) IV STA (22:00)
[2018-02-05] MEDS ORDERED: Naloxone 0.4 mg/ml Inj (Adult) ONE (22:02)
[2018-02-05] MEDS ORDERED: Insulin Regular 1 UNITS/0.01 ML ML SC STA (22:04)
--- NOTE | 2018-02-05 22:04 | ED PDOC ---
Arrival/HPI <Natan Faust - Last Filed: 02/06/18 01:19> - General Historian: Patient, Family (daughter) - History of Present Illness Time/Duration: Prior to Arrival Symptom Onset: Sudden Symptom Course: Improving Quality: Unable to Describe Severity Level: 6 Activities at Onset: Sleeping Context: Home <Jose Isidro - Last Filed: 02/06/18 04:11> - General Chief Complaint: Weakness/Neurological Deficit Time Seen by Provider: 02/05/18 21:40 - History of Present Illness Narrative History of Present Illness (Text): 02/05/18 22:03 CC: Altered Mental Status HPI: Ms. Monaco is a 57 year old female with a past medical history of Gastroparesis, DM, CVA, HTN, COPD, PAD, Anxiety who presents with loss of consciousness. Patient's daughter reports that family has been urging patient to come to be evaluated for poor oral intake but patient refused. Daughter found patient at home in bed this afternoon and upon asking her to get out of bed, patient fell into the grandmother's arms and lost consciousness. Daughter reports smelling feces but denies witnessing mother hitting head. Daughter also reports mother has had episodes of low blood pressure as she is monitored at home. Patient's daughter reports poor oral intake, stating that patient last had any solid food 5 days ago. Due to history of gastroparesis, patient finds it difficult to eat. Patient last received long acting insulin last night but has not received any insulin today. Patient reports nausea but no vomiting and denies changes in urinary and bowel habits. Denies dysuria, hematuria, hematochezia and hematemesis. PMHx: Gastroparesis, IDDM, CVA, HTN, COPD, PAD, Anxiety PSHx: bilateral cataracts, R foot TMA, guera, hysterectomy All: dilaudid and morphine Social: denies etoh, tobacco and substance abuse Meds: ativan 1 mg q6, gabapentin 300 mg TID, librax 5-3.5 mg TID, Tramadol 50 mg TID, Fentanyl patch, Prozac 40 mg, ASA, Humalog, Levemir 32 units, carafate 1 gm, (barbiturate-containing) PCP: Dr. Dent (Jose Isidro) Past Medical History - Provider Review Nursing Documentation Reviewed: Yes - Travel History Have you recently traveled outside [place] w/in the past 3 mons?: No - Past History Past History: No Previous - Infectious Disease Hx of Infectious Diseases: None - Tetanus Immunization Tetanus Immunization: Unknown - Cardiac Hx Pacemaker: No - Pulmonary Hx Chronic Obstructive Pulmonary Disease (COPD): Yes - Neurological HX Cerebrovascular Accident: Yes - HEENT Hx HEENT Disorder: Yes Hx Cataracts: Yes (bilateral sx) - Renal Hx Renal Disorder: No - Endocrine/Metabolic Hx Diabetes Mellitus Type 1: Yes - Hematological/Oncological Hx Blood Transfusions: Yes Hx Blood Transfusion Reaction: No - Integumentary Hx Dermatological Disorder: Yes Other/Comment: abcess - Musculoskeletal/Rheumatological Hx Musculoskeletal Disorders: Yes (neuropathy) - Gastrointestinal Hx Gastrointestinal Disorders: Yes Hx Gastroesophageal Reflux: Yes Other/Comment: Diabetic Gastroparesis - Genitourinary/Gynecological Hx Genitourinary Disorders: No - Psychiatric Hx Emotional Abuse: No Hx Substance Use: No - Surgical History Other/Comment: toes amputated from right foot - Anesthesia Hx Anesthesia Reactions: No Hx Malignant Hyperthermia: No - Suicidal Assessment Feels Threatened In Home Enviroment: No <Jose Isidro - Last Filed: 02/06/18 04:11> Family/Social History - Physician Review Nursing Documentation Reviewed: Yes Family/Social History: No Known Family HX Smoking Status: Never Smoked Hx Alcohol Use: No Hx Substance Use: No Hx Substance Use Treatment: No <Jose Isidro - Last Filed: 02/06/18 04:11> Allergies/Home Meds <Natan Faust - Last Filed: 02/06/18 01:19> <Jose Isidro - Last Filed: 02/06/18 04:11> Allergies/Adverse Reactions: Allergies Narcotic/Dilaudid/Morphine Adverse Reaction (Uncoded 02/06/18 01:33) SHORTNESS OF BREATH Home Medications: Home Meds Medication Instructions Recorded Confirmed Aspirin [Aspirin Chewable] 81 mg PO DAILY 07/31/17 02/05/18 Dicyclomine [Bentyl] 10 mg PO TID 07/31/17 02/05/18 Gabapentin [Neurontin] 300 mg PO TID 07/31/17 02/05/18 LORazepam [Ativan] 1 mg PO BID PRN 07/31/17 02/05/18 amLODIPine [Norvasc] 2.5 mg PO DAILY 07/31/17 02/05/18 Review of Systems - Physician Review All systems were reviewed & negative as marked: Yes - Review of Systems Constitutional: Normal Eyes: Normal ENT: Normal Respiratory: Normal Cardiovascular: Normal Gastrointestinal: Abdominal Pain, Nausea Genitourinary Female: Normal Musculoskeletal: Normal Skin: Normal Neurological: absent: Headache Endocrine: Normal Hemo/Lymphatic: Normal Psychiatric: Anxiety <Jose Isidro - Last Filed: 02/06/18 04:11> Physical Exam Vital Signs Reviewed: Yes Temperature: Afebrile Blood Pressure: Normal Pulse: Regular Respiratory Rate: Normal Appearance: Positive for: Well-Appearing, Non-Toxic, Uncomfortable Pain Distress: Mild Mental Status: No: Alert and Oriented X 3 (AAOx1) Finger Stick Blood Glucose: 492 - Systems Exam Head: Present: Atraumatic, Normocephalic. No: Tenderness, Contusion Pupils: Present: PERRL Extroacular Muscles: Present: EOMI (hard to evaluate due to patient unable to cooperate) Conjunctiva: Present: Normal Neck: Present: Normal Range of Motion Respiratory/Chest: Present: Clear to Auscultation, Decreased Breath Sounds. No : Good Air Exchange, Respiratory Distress, Accessory Muscle Use, Wheezes Abdomen: Present: Normal Bowel Sounds. No: Tenderness, Distention, Peritoneal Signs, Rebound, Guarding Back: No: CVA Tenderness, Midline Tenderness Upper Extremity: Present: Normal Inspection Lower Extremity: Present: Normal Inspection Neurological: Present: CN II-XII Intact, Speech Normal, Normal Sensory Function Skin: Present: Warm, Dry, Normal Color Psychiatric: Present: Alert, Normal Insight, Lethargic. No: Normal Concentration <Jose Isidro - Last Filed: 02/06/18 04:11> Vital Signs Temp Pulse Resp BP Pulse Ox 02/06/18 03:33 86 16 136/56 L 100 02/06/18 02:57 97.6 F 89 18 133/84 100 02/06/18 02:11 80 16 118/71 100 02/06/18 01:35 68 18 105/63 97 02/06/18 01:16 84 18 113/64 98 02/06/18 00:20 97.8 F 68 18 132/76 96 02/05/18 22:43 73 16 149/81 100 02/05/18 22:05 67 18 127/73 100 02/05/18 21:32 97.2 F L 70 18 89/57 L 100 Medical Decision Making - Lab Interpretations I have reviewed the lab results: Yes <GovindNatan - Last Filed: 02/06/18 01:19> <Cbjuan manuelJose - Last Filed: 02/06/18 04:11> ED Course and Treatment: Patient Seen with Resident: In agreement with resident note which contains more details about the patient. Patient seen and evaluated with resident. Came up with plan and treatment together. 57 year old female presents s/p syncopal epsiode after trying to get out of bed. Plan: -- VBG -- Labs -- CT Head w.o contrast -- Humulin R, Narcan, IV Fluids -- Urinalysis w/ micro -- ER Insertion straight cath -- Reassess and disposition (Natan Faust) 02/05/18 22:00 Impression: 57 year old female on chronic opioids who presents s/p syncopal episode 2/2 dehydration vs uncontrolled DM Plan: CT head without contrast EKG Cardiac isoenzymes CBC CMP Serum ETOH UA, UDS Mg Phos NS bolus Insulin regular 10 units Naloxone 0.4 mg IV 02/05/18 22:10 EKG: Sinus rhythm at 68 bpm with PACs and bigeminy. QTc prolonged 491. POC glucose 492 COMPARISON: CT - HEAD W/O CONTRAST 12/16/2017 7:56 PM FINDINGS: Brain: Unremarkable. No hemorrhage. No significant white matter disease. No edema. Ventricles: Unremarkable. No ventriculomegaly. Bones/joints: Unremarkable. No acute fracture. Soft tissues: Unremarkable. Sinuses: Unremarkable as visualized. No acute sinusitis. Mastoid air cells: Unremarkable as visualized. No mastoid effusion. IMPRESSION: No evidence of acute intracranial hemorrhage. No midline shift or hydrocephalus. 02/05/18 23:52 Leukocytosis 17.1. Half liter bolus NS given. CXR ordered for ? source of infection other than reactive 2/2 vomiting 02/06/18 00:09 Glucose 361 Phos 5.8 likely 2/2 cellular shifts of phosphate out of the cells due to severe hyperglycemia. Patient reports difficulty urinating - straight cath order placed. 02/06/18 01:44 CXR- no active disease on prelim read, no consolidation appreciated, follow up final read. Orthostatic vital signs ordered. VBG ordered. Blood and urine cultures ordered. Cipro Flagyl antibiotic coverage started. 02/06/18 02:02 Lactate 2.[address] Dent regarding admission of patient. Dr. Dent accepts patient into service. Patient will be admitted on telemetry. Dr. Dent requests consults with Dr. Zambrano for GI, Dr. Jose moreira for neuro , Dr. Farmer for cardio and Dr. Coe for endo. NS @ 100 cc/hr 02/06/18 02:39 Positive Orthostatics likely 2/2 dehydration and poor oral intake. UDS + for barbs due to patient home medication . (Jose Isidro) - Lab Interpretations Lab Results: 02/05/18 22:56 02/05/18 22:56 Lab Results 02/06/18 01:40: POC Glucose (mg/dL) 334 H 02/06/18 01:30: pO2 66 H, VBG pH 7.36, VBG pCO2 57.0, VBG HCO3 32.2 H, VBG Total CO2 33.9 H, VBG O2 Sat (Calc) 94.0 H, VBG Base Excess 5.1 H, VBG Potassium 3.2 L, Glucose 306 H, Lactate 2.4 H, FiO2 21.0, Sodium 138.0, Chloride 102.0, Venous Blood Potassium 3.2 L 02/06/18 01:30: pO2 49, ABG Carboxyhemoglobin 2.5 H, POC ABG HHb (Measured) 14.2 H, ABG Methemoglobin 1.0, VBG pH 7.35, VBG pCO2 60.0, VBG HCO3 33.1 H, VBG O2 Sat (Calc) 85.3 H, VBG Base Excess 6.0 H, VBG Hgb O2 Saturation 82.3 L, Hemoglobin 11.3 L 02/06/18 00:11: Urine Opiates Screen Negative, Urine Methadone Screen Negative, Ur Barbiturates Screen Positive H, Ur Phencyclidine Scrn Negative, Ur Amphetamines Screen Negative, U Benzodiazepines Scrn Positive H, U Oth Cocaine Metabols Negative, U Cannabinoids Screen Negative 02/06/18 00:11: Urine Color Yellow, Urine Appearance Sl cloudy, Urine pH 7.0, Ur Specific [place] 1.020, Urine Protein >=300 H, Urine Glucose (UA) >=1000, Urine Ketones 15 H, Urine Blood Small H, Urine Nitrate Negative, Urine Bilirubin Negative, Urine Urobilinogen 0.2, Ur Leukocyte Esterase Negative, Urine RBC 2 - 5, Urine WBC 1 - 3, Ur Epithelial Cells 0 - 2, Urine Bacteria Mod 02/06/18 00:07: POC Glucose (mg/dL) 361 H 02/05/18 22:56: Alcohol, Quantitative < 10 02/05/18 22:56: Sodium 135, Potassium 3.7, Chloride 96 L, Carbon Dioxide 29, Anion Gap 14, BUN 35 H, Creatinine 1.0, Est GFR ( Amer) > 60, Est GFR ( Non-Af Amer) 57, Random Glucose 486 H* D, Calcium 8.8, Phosphorus 5.8 H, Magnesium 1.7, Total Bilirubin 0.2, AST 28, ALT 19, Alkaline Phosphatase 81, Lactate Dehydrogenase 531, Total Creatine Kinase 40, Troponin I < 0.01 D, Total Protein 5.7 L, Albumin 3.2, Globulin 2.5, Albumin/Globulin Ratio 1.3 02/05/18 22:56: WBC 17.1 H D, RBC 4.51, Hgb 12.4 D, Hct 36.1, MCV 80.0, MCH 27.5, MCHC 34.3, RDW 12.8, Plt Count 324, MPV 10.1, Gran % 87.7 H, Lymph % (Auto ) 6.1 L, [place] % (Auto) 6.1 H, Eos % (Auto) 0.0 L, Baso % (Auto) 0.1, Gran # 15.02 H, Lymph # (Auto) 1.1 L, [place] # (Auto) 1.1 H, Eos # (Auto) 0.0, Baso # ( Auto) 0.01 02/05/18 21:41: POC Glucose (mg/dL) 492 H* - RAD Interpretation Radiology Orders: 02/05/18 21:58 HEAD W/O CONTRAST [CT] Stat 02/06/18 01:06 CHEST PORTABLE [RAD] Stat - Medication Orders Current Medication Orders: Sodium Chloride (Sodium Chloride 0.9%) 1,000 mls @ 100 mls/hr IV .Q10H PATTI Last Admin: 02/06/18 03:04 Dose: 100 mls/hr eMAR Start Stop Document 02/06/18 03:04 RG (Rec: 02/06/18 03:04 [id number]ven[facility] Solution Start Date 02/06/18 Start Time 03:04 Discontinued Medications Sodium Chloride (Sodium Chloride 0.9%) 1,000 mls @ 999 mls/hr IV .Q1H1M STA Stop: 02/05/18 22:58 Last Admin: 02/05/18 22:01 Dose: 999 mls/hr eMAR Start Stop Document 02/05/18 22:01 RG (Rec: 02/05/18 22:02 [id number] Intravenous Solution Start Date 02/05/18 Start Time 22:01 End Date 02/05/18 End time 23:02 Total Infusion Time 61 Sodium Chloride (Sodium Chloride 0.9%) 500 mls @ 999 mls/hr IV .Q31M STA Stop: 02/06/18 00:54 Last Admin: 02/06/18 00:36 Dose: 999 mls/hr eMAR Start Stop Document 02/06/18 00:36 RG (Rec: 02/06/18 00:37 [id number] Intravenous Solution Start Date 02/06/18 Start Time 00:36 Ciprofloxacin (Cipro 400mg/200ml Dsw) 400 mg in 200 mls @ 133.3 mls/hr IVPB STAT STA PRN Reason: Protocol Stop: 02/06/18 03:26 Last Admin: 02/06/18 03:03 Dose: 133.3 mls/hr eMAR Start Stop Document 02/06/18 03:03 RG (Rec: 02/06/18 03:03 [id number] Intraven[facility] Solution Start Date 02/06/18 Start Time 03:03 Metronidazole (Flagyl) 500 mg in 100 mls @ 100 mls/hr IVPB STAT STA PRN Reason: Protocol Stop: 02/06/18 02:55 Last Admin: 02/06/18 02:10 Dose: 100 mls/hr eMAR Start Stop Document 02/06/18 02:10 RG (Rec: 02/06/18 02:10 [id number] Intravenous Solution Start Date 02/06/18 Start Time 02:10 Sodium Chloride (Sodium Chloride 0.9%) 1,000 mls @ 999 mls/hr IV .Q1H1M STA Stop: 02/06/18 03:00 Last Admin: 02/06/18 02:01 Dose: 999 mls/hr eMAR Start Stop Document 02/06/18 02:01 RG (Rec: 02/06/18 03:05 [id number]) Intravenous Solution Start Date 02/06/18 Start Time 02:01 Insulin Human Regular (Humulin R) 10 units SC STAT STA Stop: 02/05/18 22:05 Last Admin: 02/05/18 22:11 Dose: 10 u MAR Blood Glucose Document 02/05/18 22:11 RG (Rec: 02/05/18 22:12 [id number] Blood Glucose Finger Stick Blood Glucose (70-120) 492 Subcutaneous Administrations Document 02/05/18 22:11 (Rec: 02/05/18 22:12 [id number]) Injection Site MAR Injection Site Right Abdomen Charges for Administration # of Subcutaneous Administrations 1 Naloxone HCl (Narcan) 0.4 mg IV STAT STA Stop: 02/05/18 22:01 Last Admin: 02/05/18 22:04 Dose: 0.4 mg eMAR Start Stop Document 02/05/18 22:04 (Rec: 02/05/18 22:04 [id number][facility] Intravenous Solution Start Date 02/05/18 Start Time 22:04 End Date 02/05/18 End time 22:04 Total Infusion Time 0 - PA / WEED CONTROL INSPECTOR / Resident Statement / has reviewed & agrees with the documentation as recorded. / has examined the patient and agrees with the treatment plan. - Scribe Statement The provider has reviewed the documentation as recorded by the Scribe <Natan Faust - Last Filed: 02/06/18 01:19> <Jose Isidro - Last Filed: 02/06/18 04:11> - Scribe Statement Josef Treadwell Provider Scribe Attestation: All medical record entries made by the Scribe were at my direction and personally dictated by me. I have reviewed the chart and agree that the record accurately reflects my personal performance of the history, physical exam, medical decision making, and the department course for this patient. I have also personally directed, reviewed, and agree with the discharge instructions and disposition. (Natan Faust) Disposition/Present on Arrival <Natan Faust - Last Filed: 02/06/18 01:19> - Present on Arrival Any Indicators Present on Arrival: Yes History of DVT/PE: No History of Uncontrolled Diabetes: Yes Urinary Catheter: No History of Decub. Ulcer: No History Surgical Site Infection Following: None - Disposition Have Diagnosis and Disposition been Completed?: Yes Disposition Time: 02:00 Patient Plan: Admission <Jose Isidro - Last Filed: 02/06/18 04:11> - Disposition Diagnosis: Dehydration, Syncope and collapse Disposition: HOSPITALIZED Patient Problems: Current Active Problems Problem Status Onset Dehydration Acute Syncope and collapse Acute Condition: FAIR
[2018-02-05 23:22] LABS: BASO # 0.01 K/mm3 (0.0-2.0); BASO % 0.1 % (0.0-3.0); GRAN # 15.02 (1.4-6.5); GRAN % 87.7 % (50.0-68.0); HEMOGLOBIN 12.4 g/dL (12.0-16.0); LYMPH # 1.1 (1.2-3.4); LYMPH % 6.1 % (22.0-35.0); MEAN CORPUSCULAR HEMOGLOBIN 27.5 pg (25.0-35.0); MEAN CORPUSCULAR HGB CONC 34.3 g/dl (31.0-37.0); MEAN PLATELET VOLUME 10.1 fl (7.0-11.0); MONO # 1.1 (0.1-0.6); MONO % 6.1 % (1.0-6.0); RBC 4.51 10^6/uL (3.5-6.1); RED CELL DISTRIBUTION WIDTH 12.8 % (11.5-14.5); WHITE BLOOD COUNT 17.1 10^3/ul (4.5-11.0)
[2018-02-05 23:52] LABS: TROPONIN I < 0.01 ng/mL
[2018-02-06 00:10] LABS: ALB/GLOB RATIO 1.3 (1.1-1.8); ALBUMIN 3.2 g/dL (3.0-4.8); ALT/SGPT 19 U/L (7-56); AST/SGOT 28 U/L (14-36); BLOOD UREA NITROGEN 35 mg/dL (7-21); CALCIUM 8.8 mg/dL (8.4-10.5); GFR NON-AFRICAN AMERICAN 57
[2018-02-06] MEDS ORDERED: Sodium Chloride 0.9% 500 ML IV STA (00:24)
[2018-02-06 00:57] LABS: URINE BILIRUBIN NEGATIVE (NEGATIVE); URINE BLOOD SMALL (NEGATIVE); URINE GLUCOSE (UA) >=1000 mg/dL (NEGATIVE); URINE LEUKOCYTE ESTERASE NEGATIVE Leu/uL (NEGATIVE); URINE PROTEIN >=300 mg/dL (<30 mg/dL); URINE UROBILINOGEN 0.2 E.U./dL (<1 E.U./dL)
[2018-02-06 01:11] LABS: URINE COLOR YELLOW (YELLOW)
[2018-02-06 01:12] LABS: URINE APPEARANCE SL CLOUDY (CLEAR)
[2018-02-06 01:16] LABS: URINE BACTERIA MOD (NEG); URINE EPITHELIAL CELLS 0 - 2 /hpf (0-5)
[2018-02-06 01:38] LABS: VENOUS BLOOD GAS PO2 49 mm/Hg (30-55); VENOUS BLOOD PH 7.35 (7.32-7.43)
[2018-02-06 01:39] LABS: BARBITURATES, UR POSITIVE (NEGATIVE); BENZODIAZEPINES, UR POSITIVE (NEGATIVE); OPIATES, UR NEGATIVE (NEGATIVE); PHENCYCLIDINE, UR NEGATIVE (NEGATIVE)
[2018-02-06 01:49] LABS: VENOUS BLOOD GAS BASE EXCESS 5.1 mmol/L (0.0-2.0); VENOUS BLOOD GAS PO2 66 mm/Hg (30-55); VENOUS BLOOD PH 7.36 (7.32-7.43)
[2018-02-06] MEDS ORDERED: Ciprofloxacin 400mg/200ml D5W 400 MG/200 ML BAG IVPB STA (01:56)
[2018-02-06] MEDS ORDERED: metroNIDAZOLE IV 500 mg/100 ml 500 MG/100 ML BAG IVPB STA (01:56)
[2018-02-06] MEDS ORDERED: Sodium Chloride 0.9% 1,000 ML IV STA (02:00)
[2018-02-06] MEDS: Sodium Chloride 0.9% 1,000 ML IV SCH ×2 (03:04→17:47)
[2018-02-06 05:18] LABS: VENOUS BLOOD GAS BASE EXCESS 4.6 mmol/L (0.0-2.0); VENOUS BLOOD GAS PO2 54 mm/Hg (30-55); VENOUS BLOOD PH 7.36 (7.32-7.43)
--- NOTE | 2018-02-06 07:46 | CP.PCM.CON ---
History of Present Illness - History of Present Illness History of Present Illness: PGY6 GI Fellow Consult Note Patient is a 56yo female with PMHx significant for HTN, uncontrolled type 1 DM ( a1c 10.4) complicated by retinopathy, polyneuropathy, vasculopathy, gastroparesis, prior TIA, depression/anxiety who presented to the hospital for loss of consciousness. Patient has had poor oral intake for the last week with no significant intake for 5 days. Admits to epigastric pain with oral intake and nausea/vomiting episodes. Yesterday, upon standing from laying in bed, she fainted in to a family member's arms and was brought to the hospital. Patient had CT head which is unremarkable and was actually given Narcan in the ED for concern of opiate overdose (pt uses Ultram at home). She remains rather somnolent and falls asleep during interview/examination. Patient has had numerous admissions for exacerbations of gastroparesis and poorly controlled diabetes. Despite educating patient and family on importance of following up with an arm rest builder, she still has not done so and her DM remains poorly controlled with glucose reading of 492 on admission. 12 system ROS performed and negative except where stated PMHx: See HPI PSHx: Right hemicolectomy with ileocolonic anastamosis for benign tumor (~20 years ago), cholecystectomy, appendectomy, hysterectomy, , hernia repair, right foot transmetatarsal amputation, I&D right thigh abscess FHx: Mother - gastric cancer; Sister - Crohn's disease Social: Denies tobacco, EtOH or illicit drug use Endo: 11/15 - EGD - bile gastritis, gastric polyps Past Patient History - Infectious Disease Hx of Infectious Diseases: None - Tetanus Immunizations Tetanus Immunization: Unknown - Past Social History Smoking Status: Smoker Currrent Status Unknown - CARDIAC Hx Cardiac Disorders: Yes Hx Hypercholesterolemia: Yes Hx Hypertension: Yes Hx Peripheral Vascular Disease: Yes - PULMONARY Hx Respiratory Disorders: Yes Hx Bronchitis: Yes Hx Chronic Obstructive Pulmonary Disease (COPD): Yes - NEUROLOGICAL Hx Neurological Disorder: Yes HX Cerebrovascular Accident: Yes Hx Seizures: Yes Hx Transient Ischemic Attacks (TIA): Yes (x3) - HEENT Hx HEENT Problems: Yes Hx Cataracts: Yes (bilateral sx) - RENAL Hx Chronic Kidney Disease: No - ENDOCRINE/METABOLIC Hx Endocrine Disorders: Yes Hx Diabetes Mellitus Type 2: Yes - HEMATOLOGICAL/ONCOLOGICAL Hx Blood Disorders: Yes Hx Anemia: Yes (blood transfusion) - INTEGUMENTARY Hx Dermatological Problems: Yes Other/Comment: abcess - MUSCULOSKELETAL/RHEUMATOLOGICAL Hx Musculoskeletal Disorders: Yes (neuropathy) Hx Falls: Yes Hx Unsteady Gait: Yes (cane) Other/Comment: right metatarsal amputation - GASTROINTESTINAL Hx Gastrointestinal Disorders: Yes Hx Gall Bladder Disease: Yes (cholecystectomy) Hx Gastroesophageal Reflux: Yes Other/Comment: irritable bowel, Diabetic Gastroparesis - GENITOURINARY/GYNECOLOGICAL Hx Genitourinary Disorders: No - PSYCHIATRIC Hx Psychophysiologic Disorder: Yes Hx Anxiety: Yes Hx Depression: Yes Hx Panic Symptoms: Yes Hx Substance Use: No (patient denies) Other/Comment: panic disorder - SURGICAL HISTORY Hx Surgeries: Yes Other/Comment: toes amputated from right foot - ANESTHESIA Hx Anesthesia Reactions: No Hx Malignant Hyperthermia: No Meds Allergies/Adverse Reactions: Allergies Allergy/AdvReac Type Severity Reaction Status Date / Time Narcotic/Dilaudid/Morphine AdvReac SHORTNESS Uncoded 02/06/18 01:33 OF BREATH - Medications Medications: Current Medications Sodium Chloride (Sodium Chloride 0.9%) 1,000 mls @ 100 mls/hr IV .Q10H PATTI Last Admin: 02/06/18 03:04 Dose: 100 mls/hr Physical Exam - Constitutional Appears: Non-toxic, No Acute Distress - Eye Exam Eye Exam: EOMI, PERRL - ENT Exam ENT Exam: Mucous Membranes Moist - Respiratory Exam Respiratory Exam: Clear to Auscultation Bilateral. absent: Rales, Rhonchi, Wheezes - Cardiovascular Exam Cardiovascular Exam: RRR, +S1, +S2 - GI/Abdominal Exam GI & Abdominal Exam: Normal Bowel Sounds, Soft. absent: Distended, Firm, Guarding, Organomegaly, Rigid, Tenderness - Extremities Exam Extremities exam: Negative for: pedal edema Additional comments: right transmetatarsal amputation noted - Neurological Exam Neurological exam: Altered, Oriented x3 Additional comments: drowsy but arousable - Psychiatric Exam Psychiatric exam: Flat Affect - Skin Skin Exam: Dry, Warm Results - Vital Signs Recent Vital Signs: Last Vital Signs Temp 97.6 F 02/06/18 06:00 Pulse 107 H 02/06/18 06:00 Resp 19 02/06/18 06:00 BP 140/79 02/06/18 06:00 Pulse Ox 100 02/06/18 06:00 - Labs Result Diagrams: 02/05/18 22:56 02/05/18 22:56 Labs: Laboratory Results - last 24 hr 02/06/18 02/06/18 02/06/18 03:32 05:00 07:25 pO2 54 VBG pH 7.36 VBG pCO2 56.0 VBG HCO3 31.6 H VBG Total CO2 33.3 H VBG O2 Sat (Calc) 89.2 H VBG Base Excess 4.6 H VBG Potassium 3.2 L Sodium 137.0 Chloride 103.0 Glucose 276 H Lactate 1.2 FiO2 21.0 POC Glucose (mg/dL) 328 H 278 H Venous Blood Potassium 3.2 L Assessment & Plan - Assessment and Plan (Free Text) Assessment: Patient is a 56yo female with PMHx significant for HTN, uncontrolled type 1 DM ( a1c 10.4) complicated by retinopathy, polyneuropathy, vasculopathy, gastroparesis, prior TIA, depression/anxiety who presented to the hospital for loss of consciousness -Syncope prior to arrival -Altered mental status -Poorly controlled diabetes mellitus, hyperglycemia presently -Gastroparesis as a result of above Plan: -Patient with altered mentation, leukocytosis presently; neurology consultation has been placed - awaiting recommendations -S/P Narcan administration in ED -Avoid any further sedating agents or analgesics -Start liquid diet when patient can tolerate and advance as tolerated with goal of 6 small meals, low fat/low fiber diet -If persistent vomiting, would consider use of Erythromycin (IV favored over PO ) as short-term promotility agent; Reglan can be used for promotility, but would avoid given potential for neurologic side effects in a patient with AMS -Will require outpatient follow up with arm rest builder as advised numerous times - Date & Time Date: 02/06/18 Time: 07:45
--- NOTE | 2018-02-06 08:29 | RAD ---
Date of service: 02/06/2018 HISTORY: sputum production, vomiting COMPARISON: Portable chest 12/09/2017. FINDINGS: LUNGS: Limited patchy density at the medial right base may reflect trace infiltrate. No definite left basilar airspace disease. Linear atelectasis in the left base. PLEURA: No significant pleural effusion identified, no pneumothorax apparent. CARDIOVASCULAR: Normal. OSSEOUS STRUCTURES: No significant abnormalities. VISUALIZED UPPER ABDOMEN: Normal. OTHER FINDINGS: None. IMPRESSION: Limited medial basilar airspace disease suspected at the right base. Linear atelectasis left base.
--- NOTE | 2018-02-06 09:12 | CT ---
Date of service: 02/05/2018 PROCEDURE: CT HEAD WITHOUT CONTRAST. HISTORY: fall COMPARISON: Noncontrast head CT 12/16/2017. TECHNIQUE: Axial computed tomography images were obtained through the head/brain without intravenous contrast. Radiation dose: Total exam DLP = 2251.65 mGy-cm. This CT exam was performed using one or more of the following dose reduction techniques: Automated exposure control, adjustment of the mA and/or kV according to patient size, and/or use of iterative reconstruction technique. FINDINGS: Limitations: Significant motion artifacts. Multiple series repeated to attempt to overcome this issue. HEMORRHAGE: No intracranial hemorrhage. BRAIN: Normal corticomedullary differentiation is appreciated with stable appearing parenchyma above and below the tentorium including the brainstem. Trace chronic microangiopathy pattern is not as well seen on the current exam as in the prior brain MRI 11/23/2017 given higher soft tissue resolution provided by MRI in general. No mass effect or parenchymal edema appreciable grossly. VENTRICLES: Unremarkable. No hydrocephalus. CALVARIUM: No destructive bony lesion or displaced fracture identified including through the skullbase. PARANASAL SINUSES: Unremarkable as visualized. No significant inflammatory changes. MASTOID AIR CELLS: Unremarkable as visualized. No inflammatory changes. OTHER FINDINGS: None. IMPRESSION: Stable unremarkable noncontrast head CT. No fracture identified. Concordant preliminary report from [facility], 12/16/2017.
[2018-02-06] MEDS ORDERED: Ciprofloxacin 400mg/200ml D5W 400 MG/200 ML BAG IVPB SCH (10:00)
[2018-02-06 10:13] LABS: ALB/GLOB RATIO 1.1 (1.1-1.8); ALBUMIN 2.8 g/dL (3.0-4.8); ALT/SGPT 20 U/L (7-56); AST/SGOT 15 U/L (14-36); BLOOD UREA NITROGEN 31 mg/dL (7-21); CALCIUM 8.3 mg/dL (8.4-10.5); GFR NON-AFRICAN AMERICAN > 60
[2018-02-06] MEDS: metroNIDAZOLE IV 500 mg/100 ml 500 MG/100 ML BAG IVPB SCH ×3 (10:17→22:09)
[2018-02-06] MEDS ORDERED: Insulin Reg-HIGH-Coverage SC SCH (11:30)
[2018-02-06] MEDS: Insulin Lispro (humaLOG) LOW Coverage SC SCH ×3 (12:23→22:10)
[2018-02-06] MEDS: Insulin Lispro 1 UNITS/0.01 ML SC SCH ×2 (12:23→16:36)
[2018-02-06] MEDS: Labetalol 5 mg/ml Inj 20ML IV PRN (12:24)
--- NOTE | 2018-02-06 12:37 | CARD ---
APPROVED REPORT Date of service: 02/05/2018 EKG Measurement Heart [id number] <Conclusion> Sinus rhythm with premature atrial complexes in a pattern of bigeminy Prolonged QT Abnormal ECG
--- NOTE | 2018-02-06 14:11 | CON ---
DATE: 02/06/2018 HISTORY OF PRESENT ILLNESS: This is a 56-year-old woman with history of right leg amputation due to poorly-controlled diabetes, history of hypertension, uncontrolled diabetes type 1, A1c of 10.4, complicated by retinopathy, polyneuropathy, vasculopathy, gastroparesis, prior TIA and depression, anxiety, who presented to the hospital with loss of consciousness. Apparently, the patient had poor oral intake for the last week and with no significant intake for the past 5 days with epigastric pain and GI is on board. She had initially elevated blood glucose of 492, today is above 300. She is on multiple opiates and NSAIDs at home. Currently, she is following commands, moving all extremities. REVIEW OF SYSTEMS: Fourteen-point review of systems is negative except as per the HPI. PAST MEDICAL HISTORY: As above. SOCIAL HISTORY: No illicit drug use, smoking or EtOH abuse. MEDICATIONS: Reviewed by nurses' reconciliation sheet. FAMILY HISTORY: Noncontributory. LABORATORY DATA: Sodium is 137, potassium 3, chloride 99, carbon dioxide 30, BUN of 31, creatinine 0.9, random glucose of 369. UA is positive for barbiturates. PHYSICAL EXAMINATION: VITAL SIGNS: Temperature 98, pulse rate of 80, blood pressure 140/79, respiratory rate of 19, oxygen saturation 100% by room air. GENERAL: The patient is sitting up in bed, in no acute distress. Has some mild abdominal pain. HEENT: Atraumatic, normocephalic. PERRLA. Extraocular muscles intact. NECK: Supple. No JVD. No adenopathy noted. LUNGS: Clear to auscultation. No adventitious sounds. HEART: S1, S2. Normal rate and rhythm. No murmurs, rubs or gallops. ABDOMEN: Soft, nontender and nondistended. Bowel sounds are present. EXTREMITIES: Right transmetatarsal amputation noted. NEUROLOGIC: The patient is alert and oriented to person, place, month and year. Speech is fluent without any errors. Cranial nerves II through XII are intact. Motor exam: Moves all extremities equally. No pronator drift seen. Sensory exam: Decreased light touch and pinprick up to the calves bilaterally. Decreased vibration of the toes. DTRs are 2+ throughout and 1 at both knees. Coordination: [id number] intact. No dysmetria noted. Gait is deferred for now. ASSESSMENT AND PLAN: This is a 57-year-old woman with past medical history of hypertension, uncontrolled type 1 diabetes with an A1c of 10.4. Complicated by retinopathy, polyneuropathy, vasculopathy, gastroparesis, prior transient ischemic attack, depression, anxiety, who presented for loss of consciousness and poor p.o. intake for the past few days. The syncope is most likely vasovagal due to poor p.o. intake and generalized fatigue and poorly-controlled diabetes. She has poorly-controlled diabetes with hyperglycemia presently and gastroparesis as a result of poorly-controlled diabetes. At this time, I recommend, 1. IV hydration. 2. Avoid any sedating agents or analgesics. 3. Start liquid diet when tolerated and advance with a goal of 6 small meals throughout the day with low fat as per GI. 4. Follow up with Endocrinology to get blood sugar between 140-180 and continue with current present medical management. Thank you for this consult. I will follow with you. Jose Knight MD
--- NOTE | 2018-02-06 16:25 | CON ---
DATE: 02/06/2018 HISTORY OF PRESENT ILLNESS: This is a 57-year-old female with known history of type 2 insulin-requiring diabetes, presenting here with a brief bout of loss of consciousness with also concomitant acute exacerbation of diabetic gastroparesis and is now being referred for diabetic evaluation because of persistent hyperglycemic accelerations as noted thereof. PAST MEDICAL HISTORY: As mentioned above, history of type 2 insulin-requiring diabetes, currently on a combination of Humalog given as 4 units t.i.d. before meals and Levemir given as 10 units subcu at bedtime daily as given; history of hypertension and dyslipidemia; history of diabetic retinopathy; severe painful polyneuropathy as noted. She also has had previous cerebrovascular events presenting as transient ischemic attacks no residual weakness at this time, history of coronary artery disease and peripheral arterial disease and vasculopathy with a previous right foot transmetatarsal amputation, history of generalized anxiety and depression, on psychotropic medications. She has a prior right hemicolectomy with an ileocolonic anastomosis for some kind of GI tumor over 20 years ago. She also has a prior cholecystectomy for underlying cholelithiasis. She had a prior appendectomy and hysterectomy. FAMILY HISTORY: Positive for hypertension and diabetes. SOCIAL HISTORY: The patient has supportive family. No known substance use. REVIEW OF SYSTEMS: As mentioned above. Her oral intake has been variable with nausea, dyspepsia and vague upper abdominal pain. Admits to generalized body weakness with easy fatigability and tiredness and suboptimal energy level. Also admits to progressive bouts of dizziness and lightheadedness, worse on the day of admission with episodic bouts of near syncopal episodes. No chest pains or palpitations, but admits to progressive shortness of breath especially on exertion. Her oral intake has been variable with nausea, dyspepsia and marked anorexia and suboptimal meal portions at home. She admits also lower extremity weakness with painful paresthesias especially nocturnally. PHYSICAL EXAMINATION: GENERAL: This is an aesthetic and average-built female, in no apparent distress. VITAL SIGNS: Blood pressure of 144/80; pulse of 70 beats per minute, regular; temperature 98; respirations 20; height is 5 feet 6 inches, weight is 113 pounds. HEENT: Head normocephalic. Eyes anicteric with pink conjunctivae. Funduscopy not possible at this time. Ears, nose and throat otherwise normal. NECK: Supple. Thyroid gland is normal in size. No carotid bruits or cervical adenopathy. CARDIOPULMONARY: Some adynamic precordium. S1, S2 are rapid and regular. LUNGS: Clear to auscultation. ABDOMEN: Flat, soft with positive bowel sounds. EXTREMITIES: No peripheral edema. Pulses are +2 bilaterally. LABORATORY DATA: Laboratories showed her chemistries showed a BUN of 31, sodium 137, potassium 3, chloride 99, CO2 of 30, glucose 232 and creatinine 0.9. ASSESSMENT: This is a 57-year-old female with uncontrolled and decompensated type 2 insulin-requiring diabetes, presenting here with marked hyperglycemic accelerations and very erratic usage of her insulin medications because of the variability and suboptimal meal portions related to frequent exacerbations of diabetic gastroparesis as noted. She also has diabetic microvascular complications of retinopathy and painful polyneuropathy with diabetic macrovascular complications of cerebrovascular disease with the previous transient ischemic event and coronary artery disease with a recent peripheral arterial disease and vasculopathy. PLAN OF MANAGEMENT: As discussed with the patient lengthily at bedside, the imperative need for closer adherence to her insulin regimen no matter how small the dose be given to match her suboptimal meal portions. We will also continue the vigorous IV hydration with normal saline infusion as given. We will repeat the chemistries and supplement accordingly as needed. We will also switch her over to a more physiologic basal and bolus insulin drug combination to optimize metabolic control. We will start her with Humalog given as 6 units subcu t.i.d. before meals to start at lunchtime today as ordered. We will also add basal insulin with Levemir to be given as 16 units subcu at bedtime daily to start tonight. We will titrate incrementally as indicated to optimize metabolic control. A hemoglobin A1c will be done to confirm her prior glycemic control and baseline thyroid function studies will be ordered. We will also obtain a cortisol and ACTH level to screen for any underlying autoimmune endocrinopathy. We will follow. Tita Coe MD
--- NOTE | 2018-02-06 17:03 | HP ---
HISTORY OF PRESENT ILLNESS: I saw Ting resting comfortably in bed. She has been back and forth to the hospital many times over the past couple of years. I am doing house calls on her. She is a very noncompliant diabetic at home. She is 57-year-old white female, who presents with loss of consciousness. She has poor oral intake. She found her at home with a loss of consciousness, also smelling feces. There is no head trauma they saw. She had low blood pressures at home. She has not eaten in the past few days due to her gastroparesis. She did not get any insulin this day. Also nauseousness. PAST MEDICAL HISTORY: She has a past medical history that includes gastroparesis, diabetes, CVA, hypertension, COPD, PAD, anxiety. PAST SURGICAL HISTORY: She had bilateral cataract surgery, right foot surgery. She TMA, cholecystectomy, hysterectomy. ALLERGIES: SHE IS ALLERGIC TO DILAUDID AND MORPHINE. SOCIAL HISTORY: She does not smoke. No alcohol. No substance abuse. MEDICATIONS: She takes Ativan, gabapentin, Librax, tramadol, fentanyl patch, Protonix, Humalog, Carafate and . She has lots of issues with pain. She has had an abscess on her skin before. She has neuropathy, diabetic gastroparesis, right foot transmet. REVIEW OF SYSTEMS: Ss very emotional. She is crying. No acute vision or hearing loss. No sore throat. No shortness of breath or cough or wheeze. No chest pain or palpitations. She has abdominal pain. There is nauseousness. No problems urinating. There is arthralgia pain. Skin for what she could tell is okay. No headache. She is very anxious and crying at her baseline. PHYSICAL EXAMINATION: VITAL SIGNS: She has a 97.6 temp, 89 pulse, 18 respiratory rate, 133/84 blood pressure, 100% O2 sat on room air. GENERAL: She is crying. She is in pain. Mild toxic. Alert and oriented x3. Blood sugar was 492 when she came in. HEENT: Head is atraumatic, normocephalic. Extraocular muscles are intact. Throat is dry. NECK: Supple. HEART: Regular rate. LUNGS: Decreased breath sounds bilaterally, but no wheezes. No rhonchi. No rales. ABDOMEN: Mildly distended. Decreased bowel sounds. Diffuse tenderness allover. No guarding. No rebound. EXTREMITIES: No edema. NEUROLOGIC: Cranial nerves II through XII grossly intact. Speech is normal. Alert and oriented x3, lethargic. She was given Narcan when she came in to wake her up. She had syncope, unresponsiveness, a little dehydration, uncontrolled diabetes. LABORATORY DATA: They did multiple tests. Chest x-ray showed limited medial bibasilar airspace disease, right base, linear atelectasis in the left base. She has a 17.1 white count, which is high for her; 12.4 hemoglobin; 36.1 hematocrit with a 324 platelets. Blood gas she came in, lactate was 2.4. She has a 137 sodium; potassium is 3, it was 3.7 when she came in; blood sugar was 492 when she came in. I will replace the potassium. BUN 31, creatinine 0.9, GFR is greater than 60, sugar is down to 278, calcium is 8.3, total bili is 0.2, AST is 15, ALT is 20, alk phos 73, total protein is 5.3. Urine with moderate bacteria. IMPRESSION: She has a little bit of a urinary tract infection , but she also had barbiturates and benzos that is where the Narcan came in to play. She will be on IV fluids. She will be on Cipro, Flagyl. She will be n.p.o. She will have multiple consults, Endocrinology, Cardiology, GI, Neurology, Physical Therapy. Out of bed to chair. We will see if we could tune her up, get her improved, get her back to her baseline. She is here with loss of consciousness, syncope, urinary tract infection, diabetes out of control, gastroparesis and barbiturates and benzodiazepines in her bloodstream. Josafat Dent DO [facility]
[2018-02-06] MEDS ORDERED: Insulin Detemir 100 units/ml Vial (Levemir) SC SCH (22:00)
[2018-02-07] MEDS: metroNIDAZOLE IV 500 mg/100 ml 500 MG/100 ML BAG IVPB SCH (05:40)
--- NOTE | 2018-02-07 06:15 | CP.PCM.PN ---
<Ramos Armenta - Last Filed: 02/07/18 13:31> Subjective - Date & Time of Evaluation Date of Evaluation: 02/07/18 Time of Evaluation: 06:12 - Subjective Subjective: GI Fellow PGY4 Patient crying when I entered the room, stating that she feels "so weak". She denies eating anything lastnight or today. When asked, she does not know why. She denies nausea, vomiting, passing flatus, having BMs. Afeb, HDS, no acute distress. She is willing to have some broth. 5pt ROS neg except for above. Objective - Vital Signs/Intake and Output Vital Signs (last 24 hours): Temp Pulse Resp BP Pulse Ox 98 F 79 22 159/109 H 98 02/07/18 00:00 02/07/18 02:00 02/07/18 00:00 02/07/18 00:00 02/07/18 00:00 Intake and Output: 02/06/18 02/07/18 18:59 06:59 Intake Total 1200 480 Output Total 650 Balance 1200 -170 - Medications Medications: Current Medications Amlodipine Besylate (Norvasc) 2.5 mg PO DAILY [facility] Last Admin: 02/06/18 10:16 Dose: 2.5 mg Aspirin (Aspirin Chewable) 81 mg PO DAILY [facility] Last Admin: 02/06/18 10:16 Dose: 81 mg Dicyclomine HCl (Bentyl) 10 mg PO TID [facility] Last Admin: 02/06/18 17:46 Dose: 10 mg Fluoxetine HCl (Prozac) 40 mg PO DAILY [facility] Last Admin: 02/06/18 10:16 Dose: 40 mg Sodium Chloride (Sodium Chloride 0.9%) 1,000 mls @ 100 mls/hr IV .Q10H [facility] Last Admin: 02/06/18 17:47 Dose: Not Given Metronidazole (Flagyl) 500 mg in 100 mls @ 100 mls/hr IVPB Q8 [facility] PRN Reason: Protocol Last Admin: 02/07/18 05:40 Dose: 100 mls/hr Insulin Detemir (Levemir) 16 unit SC HS [facility] Last Admin: 02/06/18 22:10 Dose: 16 units Insulin Human Lispro (Humalog Low) 0 units SC ACHS [facility] PRN Reason: Protocol Last Admin: 02/06/18 22:10 Dose: Not Given Insulin Human Lispro (Humalog) 6 units SC AC [facility] Last Admin: 02/06/18 16:36 Dose: 6 units Ketorolac Tromethamine (Toradol) 30 mg IVP Q6 PRN PRN Reason: Pain, severe (8-10) Last Admin: 02/07/18 04:41 Dose: 30 mg Labetalol HCl (Trandate) 10 mg IV Q6 PRN PRN Reason: Systolic Blood Pressure Last Admin: 02/06/18 12:24 Dose: 2 ml Ondansetron HCl (Zofran Inj) 4 mg IVP Q6H PRN PRN Reason: Nausea/Vomiting Last Admin: 02/06/18 10:18 Dose: 4 mg Pantoprazole Sodium (Protonix Inj) 40 mg IVP DAILY [facility] Last Admin: 02/06/18 10:15 Dose: 40 mg - Labs Labs: 02/06/18 05:00 - Constitutional Appears: Non-toxic, No Acute Distress, Chronically Ill - Head Exam Head Exam: NORMAL INSPECTION - Eye Exam Eye Exam: Normal appearance - ENT Exam ENT Exam: Mucous Membranes Moist - Respiratory Exam Respiratory Exam: Clear to Ausculation Bilateral, NORMAL BREATHING PATTERN - Cardiovascular Exam Cardiovascular Exam: REGULAR RHYTHM, +S1, +S2 - GI/Abdominal Exam GI & Abdominal Exam: Soft, Hypoactive Bowel Sounds. absent: Tenderness - Extremities Exam Extremities Exam: absent: Normal Inspection Additional comments: partial foot amputation. - Neurological Exam Neurological Exam: Alert, Awake, Oriented x3 - Psychiatric Exam Psychiatric exam: Agitated, Anxious, Depressed. absent: Normal Affect, Normal Mood - Skin Skin Exam: Dry, Normal Color Assessment and Plan - Assessment and Plan (Free Text) Assessment: Patient is a 56yo female with PMHx significant for HTN, uncontrolled type 1 DM ( a1c 10.4) complicated by retinopathy, polyneuropathy, vasculopathy, gastroparesis, prior TIA, depression/anxiety who presented to the hospital for loss of consciousness #Syncope prior to arrival #Metabolic encephalopathy #Diabetic Gastroparesis #T1DM, uncontrolled #Medication non-compliance #Substance use Plan: -Avoid any further sedating agents or analgesics -Start liquid diet when patient can tolerate and advance as tolerated with goal of 6 small meals, low fat/low fiber diet -If persistent vomiting, would consider use of Erythromycin (IV favored over PO ) as short-term promotility agent; Reglan can be used for promotility, but would avoid given potential for neurologic side effects in a patient with AMS -Must reduce BS below 200 to promote peristalsis -Will require outpatient follow up with business banker as advised numerous times -Recommend pain management and psych for polysubstance use. -Avoid significant pain meds as this can worsen constipation, nausea, vomiting. <AbramsEziologan - Last Filed: 02/07/18 15:35> Objective - Vital Signs/Intake and Output Vital Signs (last 24 hours): Temp Pulse Resp BP Pulse Ox 97.5 F L 96 H 20 135/55 L 100 02/07/18 12:00 02/07/18 14:00 02/07/18 12:00 02/07/18 12:00 02/07/18 06:00 Intake and Output: 02/07/18 02/07/18 06:59 18:59 Intake Total 2160 Output Total 2240 Balance -80 - Medications Medications: Current Medications Amlodipine Besylate (Norvasc) 2.5 mg PO DAILY [facility] Last Admin: 02/07/18 09:53 Dose: 2.5 mg Aspirin (Aspirin Chewable) 81 mg PO DAILY [facility] Last Admin: 02/07/18 09:50 Dose: 81 mg Cyclobenzaprine HCl (Flexeril) 10 mg PO ONCE ONE Stop: 02/07/18 15:31 Dicyclomine HCl (Bentyl) 10 mg PO TID [facility] Last Admin: 02/07/18 09:51 Dose: 10 mg Doxycycline Hyclate (Doryx) 100 mg PO Q12 [facility] PRN Reason: Protocol Last Admin: 02/07/18 09:50 Dose: 100 mg Fluoxetine HCl (Prozac) 40 mg PO DAILY [facility] Last Admin: 02/07/18 09:51 Dose: 40 mg Sodium Chloride (Sodium Chloride 0.9%) 1,000 mls @ 100 mls/hr IV .Q10H [facility] Last Admin: 02/06/18 17:47 Dose: Not Given Vancomycin HCl (Vancomycin 1gm) 1 gm in 250 mls @ 167 mls/hr IVPB Q12H [facility] PRN Reason: Protocol Last Admin: 02/07/18 09:52 Dose: 167 mls/hr Piperacillin Sod/Tazobactam Sod (Zosyn 3.375 In Ns 100ml) 100 mls @ 200 mls/hr IVPB Q6 [facility] PRN Reason: Protocol Stop: 02/14/18 09:31 Last Admin: 02/07/18 10:13 Dose: 200 mls/hr Insulin Human Lispro (Humalog Low) 0 units SC ACHS [facility] PRN Reason: Protocol Last Admin: 02/07/18 11:40 Dose: Not Given Insulin Human Lispro (Humalog) 4 units SC AC [facility] Last Admin: 02/07/18 11:41 Dose: Not Given Ketorolac Tromethamine (Toradol) 30 mg IVP Q6 PRN PRN Reason: Pain, severe (8-10) Last Admin: 02/07/18 11:47 Dose: 30 mg Labetalol HCl (Trandate) 10 mg IV Q6 PRN PRN Reason: Systolic Blood Pressure Last Admin: 02/06/18 12:24 Dose: 2 ml Ondansetron HCl (Zofran Inj) 4 mg IVP Q6H PRN PRN Reason: Nausea/Vomiting Last Admin: 02/07/18 12:31 Dose: 4 mg Pantoprazole Sodium (Protonix Inj) 40 mg IVP DAILY [facility] Last Admin: 02/07/18 09:51 Dose: 40 mg - Labs Labs: 02/07/18 07:00 02/07/18 07:15 Attending/Attestation - Attestation I have personally seen and examined this patient.: Yes I have fully participated in the care of the patient.: Yes I have reviewed all pertinent clinical information, including history, physical exam and plan: Yes Notes (Text): 02/07/18 15:30 This is a 56yo female with PMHx significant for HTN, uncontrolled type 1 DM ( a1c 10.4) complicated by retinopathy, polyneuropathy, vasculopathy, gastroparesis, prior TIA, depression/anxiety who presented to the hospital for syncope with non compliance outpatient visits. GI consulted for gatsroparesis. EGD done two months ago was unremarkable except poor motility due to high blood sugars. Can try erythromycin for pro motility for 3 months. Supportive care. Low fat/ low faiber diet. Pain management. Stool softeners. Will sign off.
[2018-02-07] MEDS: Insulin Lispro 1 UNITS/0.01 ML SC SCH ×3 (07:30→17:05)
[2018-02-07] MEDS: Insulin Lispro (humaLOG) LOW Coverage SC SCH ×4 (07:30→23:06)
[2018-02-07 07:44] LABS: HEMOGLOBIN 13.9 g/dL (12.0-16.0); MEAN CELL VOLUME 78.2 fl (80.0-105.0); MEAN CORPUSCULAR HEMOGLOBIN 27.3 pg (25.0-35.0); MEAN CORPUSCULAR HGB CONC 34.9 g/dl (31.0-37.0); MEAN PLATELET VOLUME 9.8 fl (7.0-11.0); RBC 5.09 10^6/uL (3.5-6.1); RED CELL DISTRIBUTION WIDTH 12.9 % (11.5-14.5); WHITE BLOOD COUNT 11.4 10^3/ul (4.5-11.0)
[2018-02-07 08:02] LABS: ALB/GLOB RATIO 1.2 (1.1-1.8); ALBUMIN 3.4 g/dL (3.0-4.8); ALT/SGPT 20 U/L (7-56); AST/SGOT 30 U/L (14-36); BLOOD UREA NITROGEN 18 mg/dL (7-21); CALCIUM 9.1 mg/dL (8.4-10.5); GFR NON-AFRICAN AMERICAN > 60
--- NOTE | 2018-02-07 09:18 | CON ---
DATE: 02/07/2018 PULMONARY CONSULTATION REASON FOR THIS CONSULTATION: Pneumonia. REFERRING PHYSICIAN: Josafat Dent DO. HISTORY OF PRESENT ILLNESS: History is obtained via extensive discussion with the nurse. I have also reviewed the chart at length, and discussed the case with the patient at length. The patient is a chronically ill 56-year-old female, with past medical history significant for severe peripheral vascular disease, status post partial right foot amputation, poorly-controlled diabetes, noncompliance with medication at home, hypertension, questionable chronic obstructive pulmonary disease(on no medications), depression, anxiety, who presents to [facility] after a syncopal episode at home. Apparently, the patient has been "sick" for the past 4 days. She has also had poor oral intake. As per the emergency room notes, the daughter did find the patient at home-- lethargic The patient then syncopized--which prompted the daughter to call Emergency Medical Services - who then transferred the patient to the emergency room. Again, I did discuss the case with the nurse at length. There is no history of shortness of breath at rest, dyspnea on exertion, cough, or sputum production. There is no history of chest pain, coughing up of blood, or chest pain - made worse with deep respirations. There is no history of temperatures, chills or infectious exposure. There is no history of night sweats. The family does state to a poor oral intake with weight loss over the past 4-5 days. No history of calf pains. No history of diaphoresis. No history of recent travel or trauma. ROS:The patient does have chronic abdominal complaints secondary to her gastroparesis. No history of acute urinary symptoms. No new musculoskeletal complaints. Rest of the review of systems is negative. ALLERGIES: TO MORPHINE AND DILAUDID. SOCIAL HISTORY: Positive for tobacco. Negative for alcohol. FAMILY HISTORY: No inheritable diseases. HOME MEDICATIONS: Include Ultram, Norvasc, Protonix, Zofran, Reglan, Ativan, Levemir, Neurontin, Prozac, Bentyl, aspirin. PHYSICAL EXAMINATION: GENERAL: The patient appears very weak. She is not short of breath at rest. VITAL SIGNS: Temperature is 98.1, pulse 65, respirations 18/20, blood pressure 119/69. Oxygen saturation on room air--100% HEENT: Normocephalic, atraumatic. No JVD. CARDIOVASCULAR: Positive S1, S2. No S3 gallop. LUNGS: Decreased breath sounds at the bases. No rhonchi. No wheezing. 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 There is no edema in her legs. There is no cyanosis or clubbing. Calves are nontender to palpation. GI: Abdomen is soft, nontender and nondistended. Bowel sounds are positive. SKIN: No acute rash. NEUROLOGIC: Limited at the present time. PERTINENT LABORATORY DATA: Chest x-ray was done and reviewed. There is a small, new infiltrate noted at the medial right lung base. CBC: White count 11.4K, hemoglobin 13.9, hematocrit 39.8, platelets of 290,000. Complete metabolic profile: Potassium 2.3, glucose 43, phosphorus 2.4, magnesium 1.5. Rest of the metabolic profile is within normal limits. Initial white count--17.1K IMPRESSION: 1. Syncope. 2. Right lower lobe pneumonia, possible aspiration. 3. Questionable chronic obstructive pulmonary disease. 4. Diabetes mellitus. 5. Severe peripheral vascular disease. PLAN: Again, I did discuss the case with the nurse at length. I have also reviewed the chart at length, and discussed the case with the patient at length. The patient presents to [facility] after a syncopal episode at home. Apparently, she has been "sick" for the past 4-5 days. When the daughter arrived at the patient's home, she was extremely weak, and then syncopized. Emergency Medical Services were then called to bring the patient to the hospital for additional evaluation ans treatment. I did review the chest x-ray as above. The chest x-ray shows a new patchy infiltrate at the medial right lung base - consistent with pneumonia. Given the above setting, aspiration is certainly possible. I will order aspiration precautions. Dr. Sales will also be called on the case for antibiotic usage. Cultures are pending. The white count is decreased this morning. The patient also has a history of questionable chronic obstructive pulmonary disease. She is a former smoker. When able, I would certainly like to proceed with a pulmonary function test for closer evaluation. Inputs by Neurology, Endocrine, GI, and Internal Medicine are noted. Again, the leukocytosis is resolving. On physical exam, there is no significant bronchospasm noted. In addition, the oxygen saturation is currently 100% on room air. Again, I will continue with the aspiration cautions for now. I would also like to repeat the x-ray in a few days - for comparison. Clinical status of the patient does appear improved - compared to the initial presentation. She does appear guarded overall. I did discuss the above with Dr. Dent at length. Thank you very much for this pulmonary consultation. Cesar Enriquez MD [facility]
--- NOTE | 2018-02-07 09:24 | PN ---
DATE: 02/07/2018 SUBJECTIVE: I saw her this morning, still not doing well, still kind of out of it, not has a throw-up bucket in the bed with her. She is uncomfortable. She is on aspirin, Bentyl, Cipro, metronidazole, insulin, Levemir, Norvasc, potassium replacement, Prozac, IV fluids, Toradol, Trandate and Zofran. OBJECTIVE: VITAL SIGNS: She has a 98.1 temperature, 65 pulse, 119/69 blood pressure and better, 100% O2 sat on room air. HEENT: Head is atraumatic, normocephalic. HEART: Regular rate. LUNGS: Decreased breath sounds, but clear. ABDOMEN: Soft. EXTREMITIES: No edema. She is having nauseousness, vomiting, not doing well. DATA: She has a white count that is now down to 11.4 with the antibiotics. Hemoglobin 13.9, hematocrit 39.8, platelets of 290, that is improving. Sodium 138, potassium is 2.3, it dropped from 3, I gave her two IV riders. BUN is 18, creatinine 0.7. GFR is greater than 60. Sugar is 43 and 40, calcium is 9.1, phosphorus 2.4, magnesium 1.5. Total bili is 0.2, AST is 30, ALT is 20, alk phos 89, total protein 6.3. Urine was with moderate bacteria. I am going to put on hold her insulin at nighttime, too much at this time so I will put the insulin on hold, see if we can get the blood sugars back up. I called in Pulmonary, she has a little bit of pneumonia now and Infectious Disease. Continue with aggressive treatment and care on Ting Schwartz who had UTI, pneumonia, diabetes, abdominal pain, gastroparesis, intractable nausea, vomiting. She had syncopal change of mentation, may be a smidgen better today. Josafat Dent DO [facility]
[2018-02-07] MEDS: Vancomycin 1gm in NS 250ml 1 GM/250 ML BAG IVPB SCH ×2 (09:52→23:09)
[2018-02-07] MEDS: Piperacillin/Tazobact 3.375 gm 100 ML IVPB SCH ×2 (10:13→17:11)
--- NOTE | 2018-02-07 11:36 | CP.PCM.PN ---
Subjective - Date & Time of Evaluation Date of Evaluation: 02/07/18 Time of Evaluation: 11:31 - Subjective Subjective: PGY 1 Progress Note for: Dr. Coe, Pt was seen and examined this morning at bedside. Pt was arousable, but was somnolent through questioning. She admitted to not feeling hungry, poor appetite , but no other acute complaints. Objective - Vital Signs/Intake and Output Vital Signs (last 24 hours): Temp Pulse Resp BP Pulse Ox 98.1 F 65 20 164/90 H 100 02/07/18 06:00 02/07/18 06:00 02/07/18 06:00 02/07/18 09:53 02/07/18 06:00 Intake and Output: 02/07/18 02/07/18 06:59 18:59 Intake Total 2160 Output Total 2240 Balance -80 - Medications Medications: Current Medications Amlodipine Besylate (Norvasc) 2.5 mg PO DAILY [facility] Last Admin: 02/07/18 09:53 Dose: 2.5 mg Aspirin (Aspirin Chewable) 81 mg PO DAILY [facility] Last Admin: 02/07/18 09:50 Dose: 81 mg Dicyclomine HCl (Bentyl) 10 mg PO TID [facility] Last Admin: 02/07/18 09:51 Dose: 10 mg Doxycycline Hyclate (Doryx) 100 mg PO Q12 [facility] PRN Reason: Protocol Last Admin: 02/07/18 09:50 Dose: 100 mg Fluoxetine HCl (Prozac) 40 mg PO DAILY [facility] Last Admin: 02/07/18 09:51 Dose: 40 mg Sodium Chloride (Sodium Chloride 0.9%) 1,000 mls @ 100 mls/hr IV .Q10H [facility] Last Admin: 02/06/18 17:47 Dose: Not Given Potassium Chloride (Potassium Chloride 10 Meq/100 Ml) 10 meq in 100 mls @ 50 mls/hr IVPB Q2H [facility] Stop: 02/07/18 12:59 Last Admin: 02/07/18 09:51 Dose: 50 mls/hr Vancomycin HCl (Vancomycin 1gm) 1 gm in 250 mls @ 167 mls/hr IVPB Q12H [facility] PRN Reason: Protocol Last Admin: 02/07/18 09:52 Dose: 167 mls/hr Piperacillin Sod/Tazobactam Sod (Zosyn 3.375 In Ns 100ml) 100 mls @ 200 mls/hr IVPB Q6 [facility] PRN Reason: Protocol Stop: 02/14/18 09:31 Last Admin: 02/07/18 10:13 Dose: 200 mls/hr Insulin Human Lispro (Humalog Low) 0 units SC ACHS [facility] PRN Reason: Protocol Last Admin: 02/07/18 07:30 Dose: Not Given Insulin Human Lispro (Humalog) 4 units SC AC [facility] Ketorolac Tromethamine (Toradol) 30 mg IVP Q6 PRN PRN Reason: Pain, severe (8-10) Last Admin: 02/07/18 04:41 Dose: 30 mg Labetalol HCl (Trandate) 10 mg IV Q6 PRN PRN Reason: Systolic Blood Pressure Last Admin: 02/06/18 12:24 Dose: 2 ml Ondansetron HCl (Zofran Inj) 4 mg IVP Q6H PRN PRN Reason: Nausea/Vomiting Last Admin: 02/06/18 10:18 Dose: 4 mg Pantoprazole Sodium (Protonix Inj) 40 mg IVP DAILY [facility] Last Admin: 02/07/18 09:51 Dose: 40 mg - Labs Labs: 02/07/18 07:00 02/07/18 07:15 - Constitutional Appears: Non-toxic, No Acute Distress - Head Exam Head Exam: ATRAUMATIC, NORMAL INSPECTION, NORMOCEPHALIC - Eye Exam Eye Exam: EOMI, Normal appearance - ENT Exam ENT Exam: Mucous Membranes Moist - Respiratory Exam Respiratory Exam: Clear to Ausculation Bilateral, NORMAL BREATHING PATTERN. absent: Accessory Muscle Use, Rales, Rhonchi, Wheezes - Cardiovascular Exam Cardiovascular Exam: REGULAR RHYTHM, +S1, +S2. absent: Gallop, Rubs - GI/Abdominal Exam GI & Abdominal Exam: Soft, Normal Bowel Sounds. absent: Firm, Guarding, Rigid, Tenderness - Extremities Exam Extremities Exam: absent: Calf Tenderness, Pedal Edema Additional comments: R foot shows transmetetarsal amputation - Psychiatric Exam Additional comments: somnolent - Skin Skin Exam: Dry, Intact, Normal Color, Warm Assessment and Plan - Assessment and Plan (Free Text) Assessment: Pt is a 57 yo F with PMHx of diabetic induced gastropariesis, IDDM, HTN, CVA, COPD, PAD, Anxiety who we are consulted on due to uncontrolled DM. Pt was noted to have BS in the 40s in the AM, and after some juice was up to the 130s. - We will be adjusting her dosage of Humalog from 6 units to 4 units sc AC, and levemir from 16 units down to 10 units QHS. - Will continue to monitor and adjust based on pts oral intake status, currently having fluctuating blood sugars due to poor PO intake.
[2018-02-07 13:55] LABS: AMYLASE 57 U/L (35-125); LIPASE 31 U/L (23-300)
--- NOTE | 2018-02-07 15:00 | PN ---
DATE: 02/07/2018 ENDO FOLLOWUP NOTE LOCATION: In room 276. SUBJECTIVE: This is a 57-year-old female with recent uncontrolled type 2 insulin-requiring diabetes, presenting here with acute exacerbation of diabetic gastroparesis and persistent nausea, dyspepsia and episodic vomiting episodes, although she denied having any recurrent episodes overnight as noted. However, her oral intake remains very poor and suboptimal with almost very nil intake of her liquid diet as ordered. Her glucose values have ranged from 40 early this morning to repeat level of 134 and 156 mg/dL today as noted. Her chemistries showed a BUN of 18, sodium 138, potassium 2.3, chloride 102, CO2 of 28, glucose 43 and creatinine 0.7. Her hemoglobin A1c is 9.9%, which is elevated and indicative of suboptimal metabolic control of her diabetic condition, also because of the erratic meal portions and variable insulin dosing given even on the outpatient because of very poor and suboptimal oral intake. Her cortisol level is 31.1 with a TSH of 0.64. ASSESSMENT: This is a 57-year-old female with uncontrolled and decompensated type 2 insulin-requiring diabetes with recurrent diabetic gastroparesis and also with concomitant microvascular complications of retinopathy and polyneuropathy with macrovascular complications of cerebrovascular disease with a previous TIA and coronary artery disease and also underlying peripheral arterial disease and vasculopathy with a right transmetatarsal amputation done a year or so ago. PLAN OF MANAGEMENT: We will continue the same low-dose correction scale with Humalog insulin to be given only about 300 mg/dL. We will lower her Humalog to 4 units subcu t.i.d. before meals to start today. We will also lower her Levemir given as basal insulin to 10 units subcu at bedtime daily to start tonight. We will titrate incrementally as indicated to optimize metabolic control. We will also advance her diet to a soft mechanical carb-consistent diet if no further vomiting episodes noted today and overnight. We will continue the IV hydration as given and obtain serial chemistries and supplement accordingly as needed. We will follow. Tita Coe MD
--- NOTE | 2018-02-07 17:37 | CP.PCM.CON ---
History of Present Illness - History of Present Illness History of Present Illness: 56 year old female with PMH of HTN, DM, gastroparesis, history of TIA, history of esophageal ulcers, S/P cholecystectomy, S/P , S/P hysterectomy, S/P right foot partial amputation was brought in to [facility] because of poor oral intake and generalized weakness for the past 4-5 days. The patient denies headache or dizziness, no nausea or vomiting, no abdominal pain, has occasional chills, no diarrhea, no dysuria, no dysphagia, no bleeding. CXR was done and it showing infiltrates in the right lower lobe. Infectious Diseases consult is requested to further evaluate and manage. Review of Systems - Review of Systems All systems: reviewed and no additional remarkable complaints except (as per HPI ) Past Patient History - Infectious Disease Hx of Infectious Diseases: None - Tetanus Immunizations Tetanus Immunization: Unknown - Past Social History Smoking Status: Smoker Currrent Status Unknown - CARDIAC Hx Cardiac Disorders: Yes Hx Hypercholesterolemia: Yes Hx Hypertension: Yes Hx Peripheral Vascular Disease: Yes - PULMONARY Hx Respiratory Disorders: Yes Hx Bronchitis: Yes Hx Chronic Obstructive Pulmonary Disease (COPD): Yes - NEUROLOGICAL Hx Neurological Disorder: Yes HX Cerebrovascular Accident: Yes Hx Seizures: Yes Hx Transient Ischemic Attacks (TIA): Yes (x3) - HEENT Hx HEENT Problems: Yes Hx Cataracts: Yes (bilateral sx) - RENAL Hx Chronic Kidney Disease: No - ENDOCRINE/METABOLIC Hx Endocrine Disorders: Yes Hx Diabetes Mellitus Type 2: Yes - HEMATOLOGICAL/ONCOLOGICAL Hx Blood Disorders: Yes Hx Anemia: Yes (blood transfusion) - INTEGUMENTARY Hx Dermatological Problems: Yes Other/Comment: abcess - MUSCULOSKELETAL/RHEUMATOLOGICAL Hx Musculoskeletal Disorders: Yes (neuropathy) Hx Falls: Yes Hx Unsteady Gait: Yes (cane) Other/Comment: right metatarsal amputation - GASTROINTESTINAL Hx Gastrointestinal Disorders: Yes Hx Gall Bladder Disease: Yes (cholecystectomy) Hx Gastroesophageal Reflux: Yes Other/Comment: irritable bowel, Diabetic Gastroparesis - GENITOURINARY/GYNECOLOGICAL Hx Genitourinary Disorders: No - PSYCHIATRIC Hx Psychophysiologic Disorder: Yes Hx Anxiety: Yes Hx Depression: Yes Hx Panic Symptoms: Yes Hx Substance Use: No (patient denies) Other/Comment: panic disorder - SURGICAL HISTORY Hx Surgeries: Yes Other/Comment: toes amputated from right foot - ANESTHESIA Hx Anesthesia Reactions: No Hx Malignant Hyperthermia: No Meds Allergies/Adverse Reactions: Allergies Allergy/AdvReac Type Severity Reaction Status Date / Time Narcotic/Dilaudid/Morphine AdvReac SHORTNESS Uncoded 02/06/18 01:33 OF BREATH - Medications Medications: Current Medications Amlodipine Besylate (Norvasc) 2.5 mg PO DAILY [facility] Last Admin: 02/06/18 10:16 Dose: 2.5 mg Aspirin (Aspirin Chewable) 81 mg PO DAILY [facility] Last Admin: 02/06/18 10:16 Dose: 81 mg Dicyclomine HCl (Bentyl) 10 mg PO TID [facility] Last Admin: 02/06/18 17:46 Dose: 10 mg Doxycycline Hyclate (Doryx) 100 mg PO Q12 [facility] PRN Reason: Protocol Fluoxetine HCl (Prozac) 40 mg PO DAILY [facility] Last Admin: 02/06/18 10:16 Dose: 40 mg Sodium Chloride (Sodium Chloride 0.9%) 1,000 mls @ 100 mls/hr IV .Q10H [facility] Last Admin: 02/06/18 17:47 Dose: Not Given Potassium Chloride (Potassium Chloride 10 Meq/100 Ml) 10 meq in 100 mls @ 50 mls/hr IVPB Q2H [facility] Stop: 02/07/18 12:59 Vancomycin HCl (Vancomycin 1gm) 1 gm in 250 mls @ 167 mls/hr IVPB Q12H [facility] PRN Reason: Protocol Piperacillin Sod/Tazobactam Sod (Zosyn 3.375 In Ns 100ml) 100 mls @ 200 mls/hr IVPB Q6 [facility] PRN Reason: Protocol Stop: 02/14/18 09:31 Insulin Human Lispro (Humalog Low) 0 units SC ACHS [facility] PRN Reason: Protocol Last Admin: 02/07/18 07:30 Dose: Not Given Insulin Human Lispro (Humalog) 6 units SC AC [facility] Last Admin: 02/07/18 07:30 Dose: Not Given Ketorolac Tromethamine (Toradol) 30 mg IVP Q6 PRN PRN Reason: Pain, severe (8-10) Last Admin: 02/07/18 04:41 Dose: 30 mg Labetalol HCl (Trandate) 10 mg IV Q6 PRN PRN Reason: Systolic Blood Pressure Last Admin: 02/06/18 12:24 Dose: 2 ml Ondansetron HCl (Zofran Inj) 4 mg IVP Q6H PRN PRN Reason: Nausea/Vomiting Last Admin: 02/06/18 10:18 Dose: 4 mg Pantoprazole Sodium (Protonix Inj) 40 mg IVP DAILY [facility] Last Admin: 02/06/18 10:15 Dose: 40 mg Physical Exam - Constitutional Appears: Chronically Ill, Other (has chills) - Head Exam Head Exam: NORMAL INSPECTION - ENT Exam ENT Exam: Mucous Membranes Moist - Neck Exam Neck exam: Negative for: Meningismus - Respiratory Exam Respiratory Exam: Decreased Breath Sounds - Cardiovascular Exam Cardiovascular Exam: +S1, +S2 - GI/Abdominal Exam GI & Abdominal Exam: Soft. absent: Tenderness Results - Vital Signs Recent Vital Signs: Last Vital Signs Temp 98.1 F 02/07/18 06:00 Pulse 65 02/07/18 06:00 Resp 20 02/07/18 06:00 BP 119/69 02/07/18 06:00 Pulse Ox 100 02/07/18 06:00 - Labs Result Diagrams: 02/07/18 07:00 02/07/18 07:15 Labs: Laboratory Results - last 24 hr 02/06/18 02/06/18 02/06/18 05:00 12:14 16:12 WBC RBC Hgb Hct MCV MCH MCHC RDW Plt Count MPV Sodium 137 Potassium 3.0 L Chloride 99 Carbon Dioxide 30 Anion Gap 11 BUN 31 H Creatinine 0.9 Est GFR ( Amer) > 60 Est GFR (Non-Af Amer) > 60 POC Glucose (mg/dL) 369 H 113 H Random Glucose 232 H Calcium 8.3 L Phosphorus Magnesium Total Bilirubin 0.2 AST 15 ALT 20 Alkaline Phosphatase 73 Total Protein 5.3 L Albumin 2.8 L Globulin 2.5 Albumin/Globulin Ratio 1.1 TSH 3rd Generation 02/06/18 02/07/18 02/07/18 21:23 07:00 07:15 WBC 11.4 H D RBC 5.09 Hgb 13.9 Hct 39.8 MCV 78.2 L MCH 27.3 MCHC 34.9 RDW 12.9 Plt Count 290 MPV 9.8 Sodium 138 Potassium 2.3 L* D Chloride 102 Carbon Dioxide 28 Anion Gap 10 BUN 18 Creatinine 0.7 Est GFR ( Amer) > 60 Est GFR (Non-Af Amer) > 60 POC Glucose (mg/dL) 183 H Random Glucose 43 L* D Calcium 9.1 Phosphorus 2.4 L Magnesium 1.5 L Total Bilirubin 0.2 AST 30 ALT 20 Alkaline Phosphatase 89 Total Protein 6.3 Albumin 3.4 Globulin 2.9 Albumin/Globulin Ratio 1.2 TSH 3rd Generation 02/07/18 02/07/18 07:15 07:18 WBC RBC Hgb Hct MCV MCH MCHC RDW Plt Count MPV Sodium Potassium Chloride Carbon Dioxide Anion Gap BUN Creatinine Est GFR ( Amer) Est GFR (Non-Af Amer) POC Glucose (mg/dL) 40 L Random Glucose Calcium Phosphorus Magnesium Total Bilirubin AST ALT Alkaline Phosphatase Total Protein Albumin Globulin Albumin/Globulin Ratio TSH 3rd Generation 0.64 Assessment & Plan - Assessment and Plan (Free Text) Plan: Assessment consider sepsis due to right lower lobe HCAP history of UTI with Klebsiella oxytoca gastroparesis HTN DM history of TIA history of esophageal ulcers S/P cholecystectomy S/P S/P hysterectomy S/P right foot partial amputation Plan reviewed CXR and reviewed it with Dr. Enriquez - infiltrates noted in the right lower lobe - started Vancomycin, Zosyn and Doxycycline pending blood cx, sputum cx, PCT will monitor clinically
[2018-02-07] MEDS: Sodium Chloride 0.9% 1,000 ML IV SCH (23:10)
[2018-02-08] MEDS: Piperacillin/Tazobact 3.375 gm 100 ML IVPB SCH ×4 (00:39→18:38)
--- NOTE | 2018-02-08 01:20 | CON ---
DATE: 02/07/2018 HISTORY OF PRESENT ILLNESS: The patient is a 57-year-old female who has a history of diabetes mellitus, gastroparesis, CVA, peripheral vascular disease status post right forefoot amputation in the past who was admitted because of syncopal episode. According to the daughter as the patient wanted to be helped to be moved in bed. While in the bed, patient passed out in bed. Subsequently the patient was experiencing epigastric discomfort related to her gastroparesis. There was no reported seizure by the patient's daughter. According to the daughter, patient had multiple similar episodes in the past and the patient has been followed by real estate agent/broker in [place]. There is no reported history of coronary artery disease or coronary intervention in the past. At this time, the patient denies any substernal chest pain. SOCIAL HISTORY: Patient is a nonsmoker, nondrinker. MEDICATIONS: Aspirin 81 mg once a day, Bentyl 10 mg t.i.d., doxycycline 100 mg p.o. twice a day, Norvasc 2.5 mg once a day, Prozac 40 mg once a day, Protonix 40 mg intravenously once a day, normal saline at 100 mL an hour, every 6 hours p.r.n., vancomycin 1 g intravenously every 12 hours, Zosyn 3.375 g intravenously every 6 hours. REVIEW OF SYSTEMS: Patient has very poor appetite. She denies any substernal chest pain or dizziness at this time. PHYSICAL EXAMINATION GENERAL: The patient is a middle-aged female who is uncomfortable and restless because of her epigastric discomfort. VITAL SIGNS: Blood pressure 135/55, heart rate 68, temperature 97.5, respirations 20. HEENT: Normocephalic. NECK: No JVD. CHEST: Clear. HEART: S1, S2 regular. ABDOMEN: Soft. EXTREMITIES: Significant muscle wasting and patient has right forefoot amputation. LABORATORY DATA: Hemoglobin and hematocrit 13.9 and 39.8, white count 11.4, platelet count 190,000. The most recent SMA-7 today: Sodium 138, potassium 2.3, chloride 102, CO2 28, glucose 43, BUN 18, creatinine 0.7, phosphorus is below normal 2.4, magnesium below normal at 1.5. Admission blood sugar was 492. Drug screen is positive for barbiturates and benzodiazepines, most likely related to patient's medications. EKG revealed sinus rhythm with atrial bigeminy, prolonged QT interval. Chest x-ray was unremarkable except for prominent hilar markings. Head CT scan without contrast. Stable and unremarkable noncontrast head CT scan. Echocardiographic study in July of last year revealed mild concentric LVH with normal ejection fraction and mild pulmonary hypertension. ASSESSMENT: 1. Syncopal episode. 2. Uncontrolled diabetes mellitus on admission, currently patient is hypoglycemic. 3. Hypokalemia, hypomagnesemia and hypophosphatemia. 4. History of gastroparesis. RECOMMENDATIONS: Continue current medications including IV vancomycin and IV Zosyn as well as p.r.n. IV Zofran. Patient did receive 20 mEq of IV potassium chloride replacement. I will order magnesium sulfate as well as K-Phos replacement. We will also request amylase and lipase levels. The patient will be evaluated by social media assistant as well as neurologist and fountain manager today. Harpreet Espinoza MD
[2018-02-08 07:32] LABS: HEMOGLOBIN 13.4 g/dL (12.0-16.0); MEAN CELL VOLUME 79.5 fl (80.0-105.0); MEAN CORPUSCULAR HEMOGLOBIN 27.5 pg (25.0-35.0); MEAN CORPUSCULAR HGB CONC 34.5 g/dl (31.0-37.0); MEAN PLATELET VOLUME 10.2 fl (7.0-11.0); RBC 4.88 10^6/uL (3.5-6.1); RED CELL DISTRIBUTION WIDTH 13.2 % (11.5-14.5); WHITE BLOOD COUNT 9.5 10^3/ul (4.5-11.0)
[2018-02-08 07:55] LABS: ALB/GLOB RATIO 1.2 (1.1-1.8); ALBUMIN 3.2 g/dL (3.0-4.8); ALT/SGPT 24 U/L (7-56); AST/SGOT 33 U/L (14-36); BLOOD UREA NITROGEN 11 mg/dL (7-21); CALCIUM 8.4 mg/dL (8.4-10.5); GFR NON-AFRICAN AMERICAN > 60
--- NOTE | 2018-02-08 08:02 | PN ---
DATE: 02/08/2018 PULMONARY NOTE SUBJECTIVE: The patient appears uncomfortable this morning. She is not short of breath at rest. She does complain of abdominal pain. PHYSICAL EXAMINATION: VITAL SIGNS: Temperature is 98.9, pulse is 96, respirations 18-20, blood pressure 155/91. Oxygen saturation on nasal cannula is 100%. HEENT: Normocephalic, atraumatic. No JVD. CARDIOVASCULAR: Positive S1, S2. No S3 gallop. LUNGS: Decreased breath sounds at the bases. No rhonchi. No wheezing. 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 There is no edema in her legs. There is no cyanosis or clubbing. Calves are nontender to palpation. GASTROINTESTINAL: Abdomen is soft. It is mildly tender to palpation. It is nondistended. Bowel sounds are positive. SKIN: No acute rash. NEUROLOGIC: Limited at the present time. IMPRESSION: 1. Syncope. 2. Right lower lobe pneumonia, possible aspiration. 3. Questionable chronic obstructive pulmonary disease. 4. Diabetes mellitus. 5. Severe peripheral vascular disease. PLAN: The patient appears uncomfortable this morning. She is not short of breath at rest. However, she does complain of abdominal pain. I did discuss the case with a night nurse at length. The night nurse confirms that the patient has been experiencing abdominal pain throughout her shift. GI evaluation is noted. They will see the patient again this morning. On physical exam, there is no significant bronchospasm noted. In addition, there is no significant alveolar-arterial gradient. Oxygen saturation on nasal cannula is 100% this morning. The patient remains on antibiotic therapy - as per Infectious Disease. I did discuss the case with Dr. Bryan yesterday. There are no temperatures noted. The leukocytosis is resolving. Inputs by Endocrine and Cardiology are also noted. The clinical status of the patient does appear improved overall- compared to the initial presentation. The patient does have a long history of sporadic abdominal pain, and gastroparesis. I will discuss the above with Dr. Dent. Cesar Enriquez MD [facility]
[2018-02-08] MEDS: Insulin Lispro (humaLOG) LOW Coverage SC SCH ×4 (08:12→22:33)
[2018-02-08] MEDS: Insulin Lispro 1 UNITS/0.01 ML SC SCH ×3 (08:28→18:36)
[2018-02-08] MEDS: Labetalol 5 mg/ml Inj 20ML IV PRN ×2 (08:29→22:41)
[2018-02-08] MEDS ORDERED: Sodium Chloride 0.9% 1,000 ML IV SCH (09:15)
[2018-02-08] MEDS: Vancomycin 1gm in NS 250ml 1 GM/250 ML BAG IVPB SCH ×2 (09:33→21:45)
[2018-02-08] MEDS ORDERED: Potassium Chloride 20 mEq ER Tab PO ONE (12:27)
[2018-02-08] MEDS ORDERED: Magnesium Sulfate 1 gm in D5W 1 GM/100 ML BAG IVPB ONE (13:12)
--- NOTE | 2018-02-08 14:05 | PN ---
DATE: 02/08/2018 CARDIOLOGY FOLLOWUP SUBJECTIVE: The patient is complaining of her epigastric pain which has been attributed to gastric paresis. PHYSICAL EXAMINATION: VITAL SIGNS: During her pain, her blood pressure has gone up 154/93, heart rates in the 90s. NECK: Negative JVD. LUNGS: Without rales. HEART: Reveals S1 and S2. EXTREMITIES: Without edema. LABORATORY DATA: Potassium is 3, magnesium is low, hemoglobin is 13.4. Troponin is negative x1. Telemetry reveals 5-beat wide complex tachycardia consistent with ventricular tachycardia. IMPRESSION: 1. Nonsustained ventricular tachycardia likely due to hypomagnesemia as well as hypokalemia. 2. History of gastric paresis. 3. Diabetes mellitus. 4. Syncope, which is chronic, which has been worked up extensively according to the patient at [place] with questionable results. 5. No history of coronary artery disease. PLAN: Given these findings, we will obtain an echocardiogram to evaluate LV function. We will replace the potassium and magnesium. We will discuss with Dr. Dent about getting a GI consult for the patient's gastroparesis. Carter Farmer MD
--- NOTE | 2018-02-08 14:22 | PN ---
DATE: 02/08/2018 SUBJECTIVE: I saw her resting comfortably in bed earlier. She was screaming in pain. I discussed with the air conditioning sheet metal installer. She is on IV antibiotics. She is very depressed. I will call in Psychiatry to take a look at her. She is upset with her life of chronic pain and diabetes. Blood pressure also went fanny high today. PHYSICAL EXAMINATION: VITAL SIGNS: Temperature 98.9, pulse 92; blood pressure 205/110,after it was 155/91; respiratory rate 20; 100% O2 saturation on room air. I increased the Norvasc from 2.5 to 10. HEENT: Head atraumatic, normocephalic. HEART: Regular rate. LUNGS: Decreased breath sounds, but clear. ABDOMEN: Soft. No guarding or rebound. Mild discomfort all over. Decreased bowel sounds. EXTREMITIES: No edema. MEDICATIONS: She is on aspirin; Bentyl; Doryx; insulin; Norvasc up to 10 mg now; potassium replacement; Protonix; Prozac, which might need to be increased; IVs fluids; Toradol, Trandate; vancomycin, Zofran and Zosyn. She is being seen by Pulmonary, Infectious Disease, Endocrinology. Has a consult for Cardiology, did not see her yet for elevated blood pressure, but I did increase her blood pressure medication. DATA: She has a white count of 9.5 and better, 13.4 hemoglobin, 38.8 hematocrit with platelets 275. Sodium 138; potassium 3, I replaced the potassium with two K-riders; BUN 11, creatinine 0.6. GFR is greater than 60. Sugar is 184, calcium 8.4, total bili is 0.4, AST 33, ALT 24, alk phos 83, total protein is 6, amylase 57, lipase 31. Urine was with moderate bacteria, she is on three antibiotics. Still not eating well yet, is on clears, but not eating it at all. She is here with gastroparesis, severe abdominal pain, UTI, possible pneumonia, syncope, unresponsiveness. Josafat Dent DO [facility]
--- NOTE | 2018-02-08 20:27 | PN ---
DATE: 02/08/2018 ENDOCRINOLOGY FOLLOWUP NOTE LOCATION: Room 276. SUBJECTIVE: This is a 57-year-old female with recent uncontrolled type 2 insulin-requiring diabetes, who was admitted here with acute exacerbation of diabetic gastroparesis with persistent nausea, dyspepsia, and episodic vomiting until the present time. She is currently only on a liquid diet as given. Her glucose values are fluctuating but improved and the glucose levels have ranged from 149-184 mg/dL. It was 95 at bedtime last night. The chemistry showed a BUN of 11, sodium 138, potassium 3, chloride 103, CO2 of 28, glucose 181, and creatinine 0.6. So, at this time, we will continue the low-dose Humalog given as 4 units subcu t.i.d. before meals as given with same very low-dose coverage scale for glucose values above 300 as ordered. She has been taken off the Levemir given as basal insulin overnight at this time. We will continue the IV hydration as given and even recommend addition of potassium supplementation to the IV steroids as ordered. We will obtain serial chemistries and supplement accordingly as needed. We will also restart her basal insulin once the oral intake is advanced to at least a soft diet as indicated. We will obtain serial chemistries and supplement accordingly as needed. We will follow. Tita Coe MD
--- NOTE | 2018-02-08 22:30 | PN ---
DATE: 02/08/2018 SUBJECTIVE: Patient is in bed, in no acute distress, nontoxic. PHYSICAL EXAMINATION: VITAL SIGNS: Temperature is 98, blood pressure is 150/90, respiratory rate of 21, heart rate of 94. HEENT: Unremarkable. NECK: Supple. LUNGS: Have decreased breath sounds. HEART: Normal S1, S2. ABDOMEN: Soft. LABORATORY EXAMINATION: Reveals a white count is down to 9.5, hemoglobin of 13. Chemistries reveals a BUN of 11, creatinine of 0.6. Procalcitonin is less than 0.05. Urinalysis is noted. Microbiology reveals the patient's blood cultures are negative. Urine cultures are negative. Review of orders reveals the patient to be on doxycycline and Zosyn. Dr. Carter Famrer's note is reviewed and states the patient has nonsustained ventricular tachycardia due to hypomagnesemia as well as hypokalemia, history of gastroparesis, diabetes. Dr. Josafat Dent's progress note from today is reviewed. Dr. Enriquez's note from this morning is also reviewed that states the patient has possible right lower lobe pneumonia, possible aspiration, questionable chronic obstructive lung disease, diabetes. ASSESSMENT AND PLAN: A 57-year-old female, who was seen earlier this morning with history of hypertension, diabetes, gastroparesis, transient ischemic attack, esophageal ulcers, cholecystectomy, status post , who was admitted with sepsis, right lower lobe healthcare-associated pneumonia and gastroparesis with right lower lobe infiltrate, on doxycycline and Zosyn with negative blood cultures and negative procalcitonin, negative urine cultures. White count is normalized. We will complete a short course of antibiotics, day #2 of doxycycline and Zosyn. The patient is also on IV vancomycin. We will request methicillin-resistant Staphylococcus aureus screen. We will check on the pancultures, final culture results and we will make further recommendations. Marc Sales MD
[2018-02-09] MEDS: Piperacillin/Tazobact 3.375 gm 100 ML IVPB SCH ×5 (00:16→23:41)
[2018-02-09] MEDS: Labetalol 5 mg/ml Inj 20ML IV PRN (05:16)
[2018-02-09 06:23] LABS: HEMOGLOBIN 11.9 g/dL (12.0-16.0); MEAN CELL VOLUME 79.7 fl (80.0-105.0); MEAN CORPUSCULAR HEMOGLOBIN 26.8 pg (25.0-35.0); MEAN CORPUSCULAR HGB CONC 33.6 g/dl (31.0-37.0); MEAN PLATELET VOLUME 9.6 fl (7.0-11.0); RBC 4.44 10^6/uL (3.5-6.1); WHITE BLOOD COUNT 7.7 10^3/ul (4.5-11.0)
[2018-02-09 06:48] LABS: ALB/GLOB RATIO 1.1 (1.1-1.8); ALBUMIN 2.7 g/dL (3.0-4.8); ALT/SGPT 25 U/L (7-56); AST/SGOT 27 U/L (14-36); BLOOD UREA NITROGEN 9 mg/dL (7-21); CALCIUM 8.2 mg/dL (8.4-10.5); GFR NON-AFRICAN AMERICAN > 60
--- NOTE | 2018-02-09 07:47 | PN ---
DATE: 02/09/2018 PULMONARY NOTE SUBJECTIVE: The patient appears much more comfortable this morning. She is not short of breath at rest. She has no specific complaints. PHYSICAL EXAMINATION: VITAL SIGNS: Temperature is 98.4, pulse 98, respirations 18/20, blood pressure 185/100. Oxygen saturation on room air is 98-100%. HEENT: Normocephalic, atraumatic. No JVD. CARDIOVASCULAR: Positive S1, S2. No S3 gallop. LUNGS: Decreased breath sounds at the bases. No rhonchi. No wheezing. 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 There is no edema in her legs. There is no cyanosis or clubbing. Calves are nontender to palpation. GI: Abdomen is soft. It is less tender to palpation. It is nondistended. Bowel sounds are positive. SKIN: No acute rash. NEUROLOGIC: Limited at the present time. IMPRESSION: 1. Syncope. 2. Right lower lobe pneumonia, possible aspiration. 3. Questionable chronic obstructive pulmonary disease. 4. Diabetes mellitus. 5. Severe peripheral vascular disease. PLAN: The patient appears much more comfortable this morning. She is not short of breath at rest. She has no specific complaints. She does state to feeling better this morning. On physical exam, there is no significant bronchospasm noted. In addition, the oxygen saturation on room air is 98-100%. I would continue with the antibiotic coverage as per Infectious Disease. Input by Dr. Sales is noted. The temperatures have now fully resolved. The leukocytosis has also fully resolved. I will check a repeat chest x-ray tomorrow - for comparison. Inputs by Endocrine and Cardiology are also noted. Clinical status of the patient is certainly improved - compared to the initial hospital status. I will discuss the above with Dr. Dent. Cesar Enriquez MD [facility]
[2018-02-09] MEDS ORDERED: Magnesium Sulfate 1 gm in D5W 1 GM/100 ML BAG IVPB ONE (08:01)
[2018-02-09] MEDS ORDERED: Potassium Chloride 20 mEq/15 ml LIQ UD PO STA (08:02)
[2018-02-09] MEDS: Insulin Lispro (humaLOG) LOW Coverage SC SCH ×4 (08:05→21:24)
[2018-02-09] MEDS: Insulin Lispro 1 UNITS/0.01 ML SC SCH ×3 (08:17→17:28)
--- NOTE | 2018-02-09 08:28 | CON ---
DATE: 02/08/2018 HISTORY OF PRESENT ILLNESS: In short, the patient is a 57-year-old female, long history of hypertension, diabetes, gastroparesis, history of TIA, history of esophageal ulcers, status post cholecystectomy. The patient had right foot partial amputation. The patient was brought in for evaluation of generalized weakness and the patient also had syncopal episode. The patient has history of depression which is related to the medical issues. Psych consult was called for evaluation of depression and possible medication adjustment. This designer/writer is very familiar with this patient from the previous encounter on the medical site as well as psych admission which took place here in [facility] on 01/2017. The patient is on Prozac and Ativan. The patient was seen and examined today. The patient reported that she feels constant pain in her abdomen. The patient reported that she was not able to eat, most likely, that is why she had episodes of syncopal episode. The patient reported that she feels depressed. The patient reported that at times, she feels hopeless and helpless and tearful, but denied any thoughts of killing herself or others. The patient is having supportive family. The patient's daughter is next to the patient. Vital signs reviewed. Temperature 99.3, pulse is 94, blood pressure 154/93, respiration 21. Medications reviewed. The patient is on Norvasc, aspirin, Bentyl, doxycycline, Prozac, which will be decreased, Humulin, Humalog, Toradol, labetalol, Zofran, Protonix, Zosyn, sodium chloride, vancomycin and this designer/writer would like to switch Prozac to Effexor. Risks, benefits and alternatives discussed with the patient. The patient said that Prozac was not helpful to her and the patient is willing to try new medication. Labs reviewed. WBC is trending down, today is 9.5. Chemistry reviewed. Urinalysis reviewed. Toxicology positive for benzodiazepines, barbiturates. Medications reviewed. MENTAL STATUS EXAMINATION: The patient appears to be alert, tearful, intermittent eye contact. Speech was normal rate, tone, quality and quantity. Mood described as depressed and hopeless. Affect was tearful, mood congruent. Thought process coherent and goal directed. Thought content, the patient denied visual, auditory or tactile hallucinations. Denied paranoid ideation. The patient denied thoughts of harming herself or others. Denied intents or plan. Insight and judgment seems to be fair. Impulses are well controlled. IMPRESSION: Rule out major depressive disorder, rule out mood disorder due to general medical condition, rule out anxiety disorder due to general medical condition. PLAN: This designer/writer will wean off Prozac because the patient reported Prozac is not beneficial for her. Effexor was started. Risks, benefits and alternatives were discussed with the patient. The patient does not want to stay into the Psychiatric Inpatient Unit, but the patient might benefit from that. We will follow up and advise accordingly. Thank you very much for letting me participate in the care of your patient. Lidia Napier MD
--- NOTE | 2018-02-09 08:30 | PN ---
DATE: 02/09/2018 CARDIOLOGY FOLLOWUP SUBJECTIVE: No recurrent VT noted. PHYSICAL EXAMINATION: VITAL SIGNS: Blood pressure is 185/100, heart rate is in the 90s. NECK: Negative JVD. LUNGS: Without rales. HEART: Reveals S1 and S2. EXTREMITIES: Without edema. LABORATORY DATA: Potassium is 2.7. IMPRESSION: 1. Nonsustained ventricular tachycardia, likely due to metabolic abnormalities. 2. Hypertension. 3. Gastroparesis. 4. History of syncope. 5. Questionable pneumonia. PLAN: Given these findings, we will give IV magnesium. We will replace the potassium. We will add clonidine for better blood pressure control. Carter Farmer MD
--- NOTE | 2018-02-09 08:55 | PN ---
DATE: 02/09/2018 SUBJECTIVE: I saw her resting in bed. She is in a lot of pain. She still has not eaten anything yet. She will not eat. She did pass her bowels. She is on aspirin, Bentyl, Catapres, Doryx, Duragesic, Effexor, insulin, potassium, magnesium replacement, Norvasc, potassium replacement, Protonix, Prozac, Reglan, IV fluids. She is on Toradol, but she said there is nothing for her. She gets Trandate every now and then IV for blood pressure, vancomycin IV, Zofran and Zosyn IV. PHYSICAL EXAMINATION: VITAL SIGNS: 98.4 temp, 95 pulse, 185/100 blood pressure, 20 respiratory rate, 98% O2 sat on room air. HEENT: Head is atraumatic, normocephalic. She is crying. HEART: Regular rate. LUNGS: Decreased breath sounds, but clear. ABDOMEN: Soft. Positive bowel sound. She had abdominal mass. EXTREMITIES: Have no edema. She is on tremendous amount of pain she tells me and she cannot eat. LABORATORY DATA: 7.7 white count, 11.9 hemoglobin, 35.4 hematocrit with 255 platelets. She has a 136 sodium; I replaced the potassium, she is up to 2.7, I gave her two more K-riders; BUN 9; creatinine 0.7; GFR is greater than 60; sugar is 176; calcium is 8.2; total bili is 0.3; AST is 27; ALT is 25; alk phos 69; total protein is 5.1. ASSESSMENT AND PLAN: She had a UTI. She is being seen by numerous physicians. She is being seen by Cardiology, Pulmonology, Infectious Disease, Psychiatry, Endocrinology. She had a syncopal episode. She was unresponsive. She had change in mentation, intractable nausea, vomiting, pneumonia, gastroparesis, urinary tract infection, diabetes, severe abdominal pain. She had nonsustained ventricular tachycardia due to metabolic abnormalities and we are trying to get her blood pressure down and get the pain down. I added fentanyl patch to her medication. I will increase the clonidine to t.i.d. since her blood pressure is still high. Hopefully, the pain will go away with fentanyl patch and she could start to eat a little bit, I hope. She has not eaten anything in 3 days. Continue aggressive treatment and care, also as per Gastroenterology. Josafat Dent DO
[2018-02-09] MEDS: Vancomycin 1gm in NS 250ml 1 GM/250 ML BAG IVPB SCH (09:23)
--- NOTE | 2018-02-09 11:01 | CP.PCM.PN ---
Subjective - Date & Time of Evaluation Date of Evaluation: 02/09/18 Time of Evaluation: 10:57 - Subjective Subjective: PGY 1 Progress Note for: Dr. Coe Pt was seen and examined this morning at bedside. Pt was resting, easy to rouse but somnolent. She did admit to abdominal pain and that she does not have an appetite due to pain and discomfort. She has no other acute complaints at this time. Objective - Vital Signs/Intake and Output Vital Signs (last 24 hours): Temp Pulse Resp BP Pulse Ox 98.4 F 100 H 20 168/76 H 98 02/09/18 06:00 02/09/18 09:33 02/09/18 06:00 02/09/18 09:33 02/09/18 06:00 Intake and Output: 02/09/18 02/09/18 06:59 18:59 Intake Total 2147 Output Total 900 Balance 1247 - Medications Medications: Current Medications Amlodipine Besylate (Norvasc) 10 mg PO DAILY [facility] Last Admin: 02/09/18 09:33 Dose: 10 mg Aspirin (Aspirin Chewable) 81 mg PO DAILY [facility] Last Admin: 02/09/18 09:33 Dose: 81 mg Clonidine HCl (Catapres) 0.1 mg PO TID [facility] Last Admin: 02/09/18 09:33 Dose: 0.1 mg Dicyclomine HCl (Bentyl) 10 mg PO TID [facility] Last Admin: 02/09/18 09:33 Dose: 10 mg Doxycycline Hyclate (Doryx) 100 mg PO Q12 [facility] PRN Reason: Protocol Last Admin: 02/09/18 09:33 Dose: 100 mg Fentanyl (Duragesic) 1 patch TD Q72H [facility] Last Admin: 02/09/18 09:24 Dose: 1 patch Fluoxetine HCl (Prozac) 20 mg PO DAILY [facility] Last Admin: 02/09/18 09:33 Dose: 20 mg Vancomycin HCl (Vancomycin 1gm) 1 gm in 250 mls @ 167 mls/hr IVPB Q12H [facility] PRN Reason: Protocol Last Admin: 02/09/18 09:23 Dose: 167 mls/hr Piperacillin Sod/Tazobactam Sod (Zosyn 3.375 In Ns 100ml) 100 mls @ 200 mls/hr IVPB Q6 [facility] PRN Reason: Protocol Stop: 02/14/18 09:31 Last Admin: 02/09/18 05:06 Dose: 200 mls/hr Potassium Chloride 20 meq/ (Sodium Chloride) 1,010 mls @ 100 mls/hr IV .Q10H6M [facility] Insulin Human Lispro (Humalog Low) 0 units SC ACHS [facility] PRN Reason: Protocol Last Admin: 02/09/18 08:05 Dose: Not Given Insulin Human Lispro (Humalog) 4 units SC AC [facility] Last Admin: 02/09/18 08:17 Dose: 4 units Ketorolac Tromethamine (Toradol) 30 mg IVP Q6 PRN PRN Reason: Pain, severe (8-10) Last Admin: 02/09/18 08:21 Dose: 30 mg Labetalol HCl (Trandate) 10 mg IV Q6 PRN PRN Reason: Systolic Blood Pressure Last Admin: 02/09/18 05:16 Dose: 2 ml Ondansetron HCl (Zofran Inj) 4 mg IVP Q6H PRN PRN Reason: Nausea/Vomiting Last Admin: 02/09/18 08:21 Dose: 4 mg Pantoprazole Sodium (Protonix Inj) 40 mg IVP DAILY [facility] Last Admin: 02/09/18 09:31 Dose: 40 mg Venlafaxine HCl (Effexor) 37.5 mg PO DAILY [facility] Last Admin: 02/09/18 09:34 Dose: 37.5 mg - Labs Labs: 02/09/18 05:15 02/09/18 05:40 - Constitutional Appears: Well, Non-toxic - Head Exam Head Exam: ATRAUMATIC, NORMAL INSPECTION, NORMOCEPHALIC - Eye Exam Eye Exam: EOMI, Normal appearance - ENT Exam ENT Exam: Mucous Membranes Dry - Respiratory Exam Respiratory Exam: Decreased Breath Sounds, Clear to Ausculation Bilateral, NORMAL BREATHING PATTERN. absent: Accessory Muscle Use, Wheezes, Respiratory Distress - Cardiovascular Exam Cardiovascular Exam: REGULAR RHYTHM, +S1, +S2. absent: Gallop, Rubs - GI/Abdominal Exam GI & Abdominal Exam: Soft, Tenderness, Normal Bowel Sounds - Extremities Exam Extremities Exam: Normal Capillary Refill. absent: Calf Tenderness, Pedal Edema - Psychiatric Exam Additional comments: somnolent, but rousable. In pain and agitated when woken. - Skin Skin Exam: Dry, Intact, Normal Color, Warm Assessment and Plan - Assessment and Plan (Free Text) Assessment: Pt is a 57 yo F with pmhx of diabetic induced gastropariesis, IDDM, HTN, CVA, COPD, PAD, Anxiety who we are consulted on due to uncontrolled DM. Pts BS were elevated this AM noted to be 197. Pt was also noted to have low K+. - Will increase IVF rate to 100 with 20 meq supplemental K - Will continue to monitor and add on a basal insulin once pt feels well enough to tolerate soft diet. - Will continue to follow with serial chem studies and adjust dosing of insulin as needed as pt advances diet. Discussed with Dr. Cam. Blessing Summers PGY1
--- NOTE | 2018-02-09 16:14 | CP.PCM.PN ---
Subjective - Date & Time of Evaluation Date of Evaluation: 02/09/18 Time of Evaluation: 10:30 - Subjective Subjective: No fevers, still feels weak, no nausea. Objective - Vital Signs/Intake and Output Vital Signs (last 24 hours): Temp Pulse Resp BP Pulse Ox 98.4 F 98 H 20 185/100 H 98 02/09/18 06:00 02/09/18 06:00 02/09/18 06:00 02/09/18 06:00 02/09/18 06:00 Intake and Output: 02/09/18 02/09/18 06:59 18:59 Intake Total 2147 Output Total 900 Balance 1247 - Medications Medications: Current Medications Amlodipine Besylate (Norvasc) 10 mg PO DAILY [facility] Last Admin: 02/08/18 09:48 Dose: 10 mg Aspirin (Aspirin Chewable) 81 mg PO DAILY [facility] Last Admin: 02/08/18 09:35 Dose: 81 mg Dicyclomine HCl (Bentyl) 10 mg PO TID [facility] Last Admin: 02/08/18 18:36 Dose: 10 mg Doxycycline Hyclate (Doryx) 100 mg PO Q12 [facility] PRN Reason: Protocol Last Admin: 02/08/18 21:45 Dose: 100 mg Fluoxetine HCl (Prozac) 20 mg PO DAILY [facility] Vancomycin HCl (Vancomycin 1gm) 1 gm in 250 mls @ 167 mls/hr IVPB Q12H [facility] PRN Reason: Protocol Last Admin: 02/08/18 21:45 Dose: 167 mls/hr Piperacillin Sod/Tazobactam Sod (Zosyn 3.375 In Ns 100ml) 100 mls @ 200 mls/hr IVPB Q6 [facility] PRN Reason: Protocol Stop: 02/14/18 09:31 Last Admin: 02/09/18 05:06 Dose: 200 mls/hr Sodium Chloride (Sodium Chloride 0.9%) 1,000 mls @ 30 mls/hr IV .Q24H [facility] Last Admin: 02/08/18 09:07 Dose: 30 mls/hr Insulin Human Lispro (Humalog Low) 0 units SC ACHS [facility] PRN Reason: Protocol Last Admin: 02/08/18 22:33 Dose: Not Given Insulin Human Lispro (Humalog) 4 units SC AC [facility] Last Admin: 02/08/18 18:36 Dose: 4 units Ketorolac Tromethamine (Toradol) 30 mg IVP Q6 PRN PRN Reason: Pain, severe (8-10) Last Admin: 02/09/18 00:16 Dose: 30 mg Labetalol HCl (Trandate) 10 mg IV Q6 PRN PRN Reason: Systolic Blood Pressure Last Admin: 02/09/18 05:16 Dose: 2 ml Ondansetron HCl (Zofran Inj) 4 mg IVP Q6H PRN PRN Reason: Nausea/Vomiting Last Admin: 02/09/18 00:17 Dose: 4 mg Pantoprazole Sodium (Protonix Inj) 40 mg IVP DAILY [facility] Last Admin: 02/08/18 09:35 Dose: 40 mg Venlafaxine HCl (Effexor) 37.5 mg PO DAILY [facility] - Labs Labs: 02/09/18 05:15 02/09/18 05:40 - Constitutional Appears: Chronically Ill - Head Exam Head Exam: NORMAL INSPECTION - Respiratory Exam Respiratory Exam: Decreased Breath Sounds - Cardiovascular Exam Cardiovascular Exam: +S1, +S2 - GI/Abdominal Exam GI & Abdominal Exam: Soft. absent: Tenderness Assessment and Plan - Assessment and Plan (Free Text) Assessment: Assessment consider sepsis due to right lower lobe HCAP history of UTI with Klebsiella oxytoca gastroparesis HTN DM history of TIA history of esophageal ulcers S/P cholecystectomy S/P S/P hysterectomy S/P right foot partial amputation Plan reviewed CXR and reviewed it with Dr. Enriquez - infiltrates noted in the right lower lobe - continue Zosyn and Doxycycline day 3 ; will d/c Vancomycin since blood cx are negative; PCT is low - will opt for a short course (i.e. 4-5 days as long as patient get clinically better) will continue to monitor clinically
--- NOTE | 2018-02-09 17:34 | PN ---
DATE: 02/09/2018 ENDO FOLLOWUP NOTE LOCATION: In room 276. SUBJECTIVE: This is a 57-year-old female with recent uncontrolled type 2 insulin-requiring diabetes, who continues to have persistent nausea, dyspepsia and extremely poor suboptimal oral intake and is now being followed closely for metabolic management. Her glucose values overnight have improved and have ranged from 119-161 and 197 mg/dL. Her chemistries today showed a BUN of 9, sodium 136, potassium 2.7, chloride 102, CO2 of 25, glucose 176 and creatinine 0.7. So at this time, we will change her IV hydration to normal saline with potassium chloride at 28 mEq per bag to run at 100 mL/hour as ordered. We will obtain serial chemistries and supplement accordingly as needed and we will adjust her IV hydration and potassium supplementation accordingly. We will also continue the low-dose bolus or prandial insulin given as Humalog at 4 units subcu t.i.d. before meals as ordered. We will also continue the low-dose correction scale using Humalog insulin as given. The basal insulin has been held at this time because of the suboptimal meal portions by the patient as noted. We will obtain serial chemistries and supplement accordingly as needed. We will follow. Tita Coe MD
--- NOTE | 2018-02-09 17:56 | PN ---
DATE: 02/09/2018 FOLLOWUP APPOINTMENT SUBJECTIVE: In short, the patient is a 57-year-old female. Multiple medical issues. Please see medical team note for more detailed information. The patient was admitted on the medical site status post syncopal episode. The patient was diagnosed with possible sepsis due to right lower lobe HCAP, history of a UTI. The patient also has gastroparesis, hypertension and diabetes. The patient was started on antibiotics. The patient is on vancomycin, Zosyn, doxycycline. Psych consult was called for evaluation of depressive symptoms. This typewriter assembly and parts inspector is very familiar with this patient from the previous encounter on the medical site as a consultation and short hospitalization to the psychiatric inpatient unit. The patient was on Prozac 40 mg daily. The patient did not find the Prozac to be effective. Effexor was started, small dose. The patient was started on tapering dose of Prozac. The patient was seen today. The patient presented to be tearful, depressed, hopeless. The patient reported that she had insomnia. Sonata will be started as needed. The patient denied hearing voices, denied seeing things. The patient denied thoughts of harming herself or others. The patient seems to be overwhelmed with her medical issues. As per staff, the patient is not agitated, but seems to be severely depressed and hopeless. Vital signs seems to be stable, temperature 98.6, the patient is tachycardic 102, blood pressure 160/96, respirations 19. Medications reviewed. Norvasc, aspirin, Catapres, Bentyl, doxycycline, fentanyl, Prozac is 20 mg with a plan to decrease that further. The patient is on insulin, Toradol, labetalol, Zofran, Protonix, Zosyn, potassium chloride, vancomycin. Effexor was started at 37.5 yesterday and Sonata will be initiated as needed for insomnia. WBC cells trending down. Chemistry reviewed. Potassium was low. MENTAL STATUS EXAMINATION: The patient appears to be alert. Intermittent eye contact. Speech was underproductive, low volume. Mood is described as depressed and hopeless. Affect was tearful. Mood congruent. Thought process was coherent, goal directed. Thought content, the patient reported feeling of hopelessness. Denied thoughts of her harming herself or others. The patient is not psychotic, does not exhibit any agitation or aggression. Insight and judgment seems to be improving. Impulses are well controlled. IMPRESSION: Rule out major depressive disorder, rule out mood disorder due to general medical condition. Most likely, it is combination of factors. PLAN: Effexor was started 37.5 daily with a plan to titrate it up. The patient is on tapering dose of Prozac. Sonata was started. The patient initially did not want to stay in the hospital for further evaluation and stabilization to the psychiatric inpatient unit, but the patient is thinking that it might be beneficial. We will follow up and advise accordingly. Tomorrow, Dr. Castanon will cover for this typewriter assembly and parts inspector. Thank you very much for letting me participate in the care of your patient. Lidia Napier MD
[2018-02-10] MEDS: Piperacillin/Tazobact 3.375 gm 100 ML IVPB SCH ×4 (05:25→23:06)
[2018-02-10 07:18] LABS: HEMOGLOBIN 12.8 g/dL (12.0-16.0); MEAN CELL VOLUME 80.4 fl (80.0-105.0); MEAN CORPUSCULAR HEMOGLOBIN 26.7 pg (25.0-35.0); MEAN CORPUSCULAR HGB CONC 33.2 g/dl (31.0-37.0); MEAN PLATELET VOLUME 9.5 fl (7.0-11.0); RBC 4.8 10^6/uL (3.5-6.1); WHITE BLOOD COUNT 7.1 10^3/ul (4.5-11.0)
--- NOTE | 2018-02-10 07:33 | PN ---
DATE: 02/10/2018 PULMONARY NOTE SUBJECTIVE: The patient appears comfortable this morning. She is not short of breath at rest. PHYSICAL EXAMINATION: VITAL SIGNS: (Last noted in the computer): Temperature is 98, pulse 89, respirations 18/20, blood pressure 137/73. Oxygen saturation on room air is 96%. HEENT: Normocephalic, atraumatic. No JVD. CARDIOVASCULAR: Positive S1, S2. No S3 gallop. LUNGS: Decreased breath sounds at the bases. Otherwise clear. 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 There is no edema in her legs. There is no cyanosis or clubbing. Calves are nontender to palpation. GI: Abdomen is soft, nontender to palpation and nondistended. Bowel sounds are positive. SKIN: No acute rash. NEUROLOGIC: Limited at the present time. IMPRESSION: 1. Syncope. 2. Right lower lobe pneumonia, possible aspiration. 3. Questionable chronic obstructive pulmonary disease. 4. Diabetes mellitus. 5. Severe peripheral vascular disease. PLAN: The patient appears much more comfortable this morning. She is not short of breath at rest. She does state to feeling much better overall. On physical exam, there is no significant bronchospasm. In addition, there is no significant alveolar-arterial gradient.. The patient remains on antibiotic therapy - as per Infectious Disease. Input by Dr. Bryan is noted. There is a repeat chest x-ray ordered for today - for comparison. I will check that when feasible. Inputs by Endocrine and Cardiology are also noted. Clinical status of the patient is definitely improved - compared to the initial presentation. I will discuss the above with Dr. Dent. Cesar Enriquez MD [facility]
[2018-02-10] MEDS: Insulin Lispro (humaLOG) LOW Coverage SC SCH ×4 (08:07→21:46)
[2018-02-10] MEDS: Insulin Lispro 1 UNITS/0.01 ML SC SCH ×3 (08:30→17:29)
[2018-02-10 09:30] LABS: ALB/GLOB RATIO 1.1 (1.1-1.8); ALBUMIN 2.8 g/dL (3.0-4.8); ALT/SGPT 24 U/L (7-56); AST/SGOT 30 U/L (14-36); BLOOD UREA NITROGEN 10 mg/dL (7-21); CALCIUM 7.9 mg/dL (8.4-10.5); GFR NON-AFRICAN AMERICAN 57
--- NOTE | 2018-02-10 10:39 | RAD ---
Date of service: 02/10/2018 HISTORY: follow up COMPARISON: 02/06/2018 TECHNIQUE: Chest PA and lateral FINDINGS: LUNGS: No active pulmonary disease. PLEURA: No significant pleural effusion identified. No pneumothorax apparent. CARDIOVASCULAR: Normal. OSSEOUS STRUCTURES: No significant abnormalities. VISUALIZED UPPER ABDOMEN: Normal. OTHER FINDINGS: None. IMPRESSION: No active disease.
--- NOTE | 2018-02-10 10:48 | PN ---
DATE: 02/10/2018 SUBJECTIVE: I saw her resting comfortably in bed. She is still not eating, still having abdominal pain. I put her on the fentanyl patch. She says this is helping some. She is also on aspirin, Bentyl, Catapres, Doryx, Effexor, insulin, magnesium replacement, Norvasc, potassium replacement, Protonix, Prozac, IV fluids, Sonata, Toradol for pain, Trandate, Zofran and Zosyn. She is looking at me, may be little more comfortable with the fentanyl patch today, still not eating, no appetite. PHYSICAL EXAMINATION: VITAL SIGNS: 97.7 temperature, 65 pulse, 149/90 blood pressure, 20 respiratory rate, 96% O2 sat on room air. HEENT: Head is atraumatic, normocephalic. HEART: Regular rate. LUNGS: Decreased breath sounds but clear. ABDOMEN: Soft. Positive bowel sounds. No guarding. EXTREMITIES: No edema. She is having numerous issues while she is here. She is having a syncopal episode. She was unresponsive. Urinary tract infection, gastroparesis, pneumonia. We are trying get her to Transitional Care Unit today to give her IV antibiotics, also give her physical therapy, also get her to start eating again and pain control hopefully that will happen. LABORATORY DATA: She has a 7.1 white count, 12.8 hemoglobin, 38.6 hematocrit with 259 platelets. She has a 137 sodium, potassium is pending, BUN 10, creatinine 1, GFR is 57, sugar is 198, calcium is 7.9, total bili is 0.3. AST is 30, ALT is 24, alk phos 72. ASSESSMENT AND PLAN: She is being seen by numerous physicians. She has numerous problems. She has got Pulmonary, there is a chest x-ray pending; Infectious Disease; Psychiatry for depression, Endocrinology, Cardiology. I am hoping to get her to Transitional Care Unit today to finish treatment and get her physical therapy. She had right lower lobe pneumonia, history of urinary tract infection with Klebsiella, gastroparesis, hypertension, abdominal pain. She has infiltrates in the right lower lobe. Continue Zosyn and doxycycline. She is off the vancomycin and hopefully to get her to Transitional Care Unit today. Josafat Dent DO [facility] # [id number]
[2018-02-10] MEDS ORDERED: Potassium Chloride 20 mEq/15 ml LIQ UD PO STA (13:51)
[2018-02-10] MEDS ORDERED: Magnesium Sulfate 2 gm/50 ml 2 GM/50 ML BAG IVPB ONE (13:52)
--- NOTE | 2018-02-10 18:16 | PN ---
DATE: 02/10/2018 SUBJECTIVE: The patient is in bed, in no acute distress, nontoxic, seen earlier today. PHYSICAL EXAMINATION VITAL SIGNS: Temperature is 98, blood pressure is 120/70, respiratory rate of 16. HEENT: Unremarkable. NECK: Supple. LUNGS: Have decreased breath sounds. HEART: Normal S1 and S2. ABDOMEN: Soft, nontender. LABORATORY DATA: Reveals a white count of 7.1, hemoglobin of 12, platelets of 259. BUN of 10, creatinine of 1 and procalcitonin is less than 0.05. Urinalysis is noted and microbiology reveals the cultures are negative. Review of orders reveals the patient to be on Zosyn. ASSESSMENT AND PLAN: A 57-year-old female who was admitted with sepsis, right lower lobe healthcare-associated pneumonia with Klebsiella urinary tract history gastroparesis, hypertension, diabetes and today is day #4 of doxycycline and Zosyn, we would complete 4-7 days of antibiotics, today is day #4 of 4-7 days, the doxycycline is p.o. and the Zosyn is obviously IV. Marc Sales MD
--- NOTE | 2018-02-10 19:44 | PN ---
DATE: 02/09/2018 CARDIOLOGY FOLLOWUP SUBJECTIVE: The patient is without distress. PHYSICAL EXAMINATION VITAL SIGNS: Blood pressure is 122/92, the heart rate is in the 80s. NECK: Negative JVD. LUNGS: Without rales. HEART: Reveals S1 and S2. EXTREMITIES: Without edema. LABORATORY DATA: The potassium is 3.5, the magnesium last measured was 1.5. IMPRESSION: 1. Nonsustained ventricular tachycardia, likely due to metabolic abnormalities. 2. Gastroparesis. 3. Hypertension. 4. History of syncope. 5. Hypomagnesemia and hypokalemia. PLAN: Given these findings, we will replace potassium again and give another IV soluset of magnesium. We will measure the potassium and magnesium in the morning. Carter Farmer MD
--- NOTE | 2018-02-10 19:54 | PN ---
DATE: 02/10/2018 ENDOCRINOLOGY FOLLOWUP NOTE LOCATION: Room 270. SUBJECTIVE: This is a 57-year-old female with recent uncontrolled type 2 insulin-requiring diabetes, now with slowly improving GI related symptoms with less nausea, dyspepsia and subsidence of the vomiting episodes as noted. Her glycemic profile is fluctuating, but improved and the glucose values have ranged from 210-224 mg/dL. Her latest chemistry showed a BUN of 10, sodium 137, potassium 3.5, chloride 103, CO2 of 28, glucose 198 and creatinine 1. So, at this time, we will continue the Humalog given as 4 units t.i.d. before meals and observe her oral intake today as noted. If her oral intake improves and she can be advanced to solid food, then we will start her back on her more physiologic basal and bolus insulin drug combination as ordered. We will obtain serial chemistries and supplement accordingly as needed. We will follow. Tita Coe MD
[2018-02-11] MEDS: Piperacillin/Tazobact 3.375 gm 100 ML IVPB SCH ×3 (05:05→17:22)
[2018-02-11] MEDS: Labetalol 5 mg/ml Inj 20ML IV PRN (06:00)
[2018-02-11 06:46] VITALS: O2SAT 97
[2018-02-11 07:13] LABS: HEMOGLOBIN 11.7 g/dL (12.0-16.0); MEAN CORPUSCULAR HGB CONC 34.2 g/dl (31.0-37.0); MEAN PLATELET VOLUME 9.7 fl (7.0-11.0); RBC 4.33 10^6/uL (3.5-6.1); RED CELL DISTRIBUTION WIDTH 12.9 % (11.5-14.5); WHITE BLOOD COUNT 7.6 10^3/ul (4.5-11.0)
[2018-02-11 07:41] LABS: ALBUMIN 2.3 g/dL (3.0-4.8); ALT/SGPT 26 U/L (7-56); AST/SGOT 22 U/L (14-36); BLOOD UREA NITROGEN 12 mg/dL (7-21); CALCIUM 7.9 mg/dL (8.4-10.5); GFR NON-AFRICAN AMERICAN 57
--- NOTE | 2018-02-11 07:54 | PN ---
DATE: 02/11/2018 PULMONARY NOTE SUBJECTIVE: The patient appears very comfortable this morning. She is not short of breath at rest. PHYSICAL EXAMINATION: VITAL SIGNS: Temperature is 98.3, pulse 84, respirations 18/20, blood pressure 161/98. Oxygen saturation on room air is 97%. HEENT: Normocephalic, atraumatic. No JVD. CARDIOVASCULAR: Positive S1, S2. No S3 gallop. LUNGS: Decreased breath sounds at the bases. Otherwise clear. 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 There is no edema in her legs. There is no cyanosis or clubbing. Calves are nontender to palpation. GI: Abdomen is soft, nontender and nondistended. Bowel sounds are positive. SKIN: No acute rash. NEUROLOGIC: Limited at the present time. PERTINENT LABORATORY DATA: Chest x-ray was repeated yesterday and reviewed. The chest x-ray is significantly improved - with almost complete resolution of the right basilar infiltrate. IMPRESSION: 1. Syncope. 2. Right lower lobe pneumonia, possible aspiration. 3. Questionable chronic obstructive pulmonary disease. 4. Diabetes mellitus. 5. Severe peripheral vascular disease. PLAN: The patient appears very comfortable this morning. She is not short of breath at rest. She does state to feeling much, much better overall. On physical exam, there is no bronchospasm noted. In addition, the oxygen saturation on room air is now 97%. I will continue with the current aspiration precautions for now. The patient remains on antibiotic therapy - as per Infectious Disease. Temperatures have now fully resolved. The leukocytosis has also fully resolved. In addition, chest x-ray done yesterday was significantly improved. Inputs by Endocrine, Cardiology and Infectious Disease are also noted. Clinical status of the patient is significantly improved overall. I will discuss the above with Dr. Dent. Cesar Enriquez MD MTDD
[2018-02-11] MEDS: Insulin Lispro (humaLOG) LOW Coverage SC SCH ×3 (08:46→17:02)
[2018-02-11] MEDS: Insulin Lispro 1 UNITS/0.01 ML SC SCH ×2 (08:53→11:55)
[2018-02-11] MEDS ORDERED: Magnesium Sulfate 2 gm/50 ml 2 GM/50 ML BAG IVPB ONE (10:14)
[2018-02-11 11:58] VITALS: RESP 19
--- NOTE | 2018-02-11 11:59 | PN ---
DATE: 02/11/2018 CARDIOLOGY FOLLOWUP SUBJECTIVE: The patient is without shortness of breath, without chest pain. PHYSICAL EXAMINATION: VITAL SIGNS: Blood pressure 144/88, the heart rate is in the 70s. NECK: Negative JVD. LUNGS: Without rales. HEART: Reveal S1, S2. EXTREMITIES: Without edema. DATA: Hemoglobin is 11.7. Chemistries: The potassium is up to 3.7. The magnesium is still 1.4. IMPRESSION: 1. Status post nonsustained ventricular tachycardia secondary to metabolic abnormalities. 2. Gastroparesis. 3. Hypertension. 4. History of syncope. Given these findings, we will order an echocardiogram to evaluate her left ventricular function. In addition, we will replace her magnesium again. Carter Farmer MD
--- NOTE | 2018-02-11 12:10 | PN ---
DATE: 02/11/2018 SUBJECTIVE: Shortly, the patient is a 57-year-old female with long debilitating history of diabetes, multiple medical admissions in the past. This admission, the patient was brought for evaluation of near syncopal episode. Psych consult was called for evaluation of depressive symptoms and medication management. The patient was offered to switch her Prozac from what she did not have any improvement and initiated Effexor. The patient is on tapering dose of Prozac. Effexor was started 2 days ago. Sonata also was started for insomnia as needed. The patient was followed up today. The patient presented to be sleepy, easily arousable. The patient reported that she feels "little better". The patient reported that she likes Effexor. Denied any side effects. The patient reported that her mood today "is not bad". The patient reported that she slept through the night. Today, this chief writer discussed case with Dr. Dent. Plan is Transitional Care Unit if it is possible and if it will be improved. As per nursing report, the patient is compliant with the medication, has transient crying spells, but no agitation, no aggression. Vital signs reviewed. Labs reviewed. Medications reviewed. MENTAL STATUS EXAMINATION: Patient presented to be sleepy but easily arousable. Fair eye contact. Speech was underproductive, low volume. Mood described "not bad". Affect was constricted. The patient was able to smile at this chief writer. Thought process, coherent and goal directed. Thought content, the patient denied visual, auditory, or tactile hallucinations. Denied paranoid ideation. The patient denied thoughts of harming herself or others. Denied intent or plan, transient symptoms of hopelessness. Insight and judgment seems to be improving. Impulses are well controlled. IMPRESSION: Rule out major depressive disorder, rule out mood disorder due to general medical condition. PLAN: The patient is on tapering dose of Prozac. Effexor was started with a plan to increase the dose depending on the symptoms. Sonata as needed for insomnia. Discussed with Dr. Dent with the nursing staff over the weekend, Dr. Recio will follow up on this patient. The patient also might benefit from the psychiatric admission, but this chief writer cannot exclude that after stabilization of medical issues, patient's mood will be improving. We will follow up and advise accordingly. Thank you very much for letting me participate in care of your patient. Should you have any questions, give me a call back. Lidia Napier MD
--- NOTE | 2018-02-11 13:44 | CP.PCM.PN ---
Subjective - Date & Time of Evaluation Date of Evaluation: 02/11/18 Time of Evaluation: 11:05 - Subjective Subjective: Patient is feeling a little better, cough and breathing are better, no fevers. Objective - Vital Signs/Intake and Output Vital Signs (last 24 hours): Temp Pulse Resp BP Pulse Ox 98.3 F 97 H 20 161/98 H 97 02/11/18 06:00 02/11/18 06:00 02/11/18 06:00 02/11/18 06:00 02/11/18 06:00 Intake and Output: 02/11/18 02/11/18 06:59 18:59 Intake Total 1520 Balance 1520 - Medications Medications: Current Medications Amlodipine Besylate (Norvasc) 10 mg PO DAILY [facility] Last Admin: 02/10/18 09:06 Dose: 10 mg Aspirin (Aspirin Chewable) 81 mg PO DAILY [facility] Last Admin: 02/10/18 09:06 Dose: 81 mg Clonidine HCl (Catapres) 0.1 mg PO TID [facility] Last Admin: 02/10/18 18:30 Dose: 0.1 mg Dicyclomine HCl (Bentyl) 10 mg PO TID [facility] Last Admin: 02/10/18 18:31 Dose: 10 mg Doxycycline Hyclate (Doryx) 100 mg PO Q12 [facility] PRN Reason: Protocol Last Admin: 02/10/18 21:46 Dose: 100 mg Fentanyl (Duragesic) 1 patch TD Q72H [facility] Last Admin: 02/09/18 09:24 Dose: 1 patch Fluoxetine HCl (Prozac) 20 mg PO DAILY [facility] Last Admin: 02/10/18 09:07 Dose: 20 mg Piperacillin Sod/Tazobactam Sod (Zosyn 3.375 In Ns 100ml) 100 mls @ 200 mls/hr IVPB Q6 [facility] PRN Reason: Protocol Stop: 02/14/18 09:31 Last Admin: 02/11/18 05:05 Dose: 200 mls/hr Potassium Chloride 20 meq/ (Sodium Chloride) 1,010 mls @ 100 mls/hr IV .Q10H6M [facility] Last Admin: 02/10/18 23:09 Dose: 100 mls/hr Insulin Human Lispro (Humalog Low) 0 units SC ACHS [facility] PRN Reason: Protocol Last Admin: 02/10/18 21:46 Dose: Not Given Insulin Human Lispro (Humalog) 4 units SC AC [facility] Last Admin: 02/10/18 17:29 Dose: Not Given Ketorolac Tromethamine (Toradol) 30 mg IVP Q6 PRN PRN Reason: Pain, severe (8-10) Last Admin: 02/11/18 06:22 Dose: 30 mg Labetalol HCl (Trandate) 10 mg IV Q6 PRN PRN Reason: Systolic Blood Pressure Last Admin: 02/11/18 06:00 Dose: 10 mg Ondansetron HCl (Zofran Inj) 4 mg IVP Q6H PRN PRN Reason: Nausea/Vomiting Last Admin: 02/11/18 06:30 Dose: 4 mg Pantoprazole Sodium (Protonix Inj) 40 mg IVP DAILY [facility] Last Admin: 02/10/18 09:07 Dose: 40 mg Venlafaxine HCl (Effexor) 37.5 mg PO DAILY [facility] Last Admin: 02/10/18 09:06 Dose: 37.5 mg Zaleplon (Sonata) 5 mg PO HS PRN PRN Reason: Insomnia Last Admin: 02/10/18 21:50 Dose: 5 mg - Labs Labs: 02/10/18 06:30 02/10/18 06:30 - Constitutional Appears: No Acute Distress, Chronically Ill - Head Exam Head Exam: NORMAL INSPECTION - Respiratory Exam Respiratory Exam: Decreased Breath Sounds - Cardiovascular Exam Cardiovascular Exam: +S1, +S2 - GI/Abdominal Exam GI & Abdominal Exam: Soft. absent: Tenderness Assessment and Plan - Assessment and Plan (Free Text) Plan: Assessment consider sepsis due to right lower lobe HCAP, clinically improving history of UTI with Klebsiella oxytoca gastroparesis HTN DM history of TIA history of esophageal ulcers S/P cholecystectomy S/P S/P hysterectomy S/P right foot partial amputation Plan reviewed CXR and reviewed it with Dr. Enriquez - infiltrates noted in the right lower lobe - continue Zosyn and Doxycycline day 5 to complete 4-7 days will continue to monitor clinically
--- NOTE | 2018-02-11 16:13 | PN ---
DATE: 02/11/2018 This consultation was performed on 02/10/2018, but due to technical difficulties, could not be dictated until 02/11/2018. The patient was interviewed in the presence of medical students. Her case was reviewed. The patient is alert, oriented. Her difficulty with her chronic abdominal pain was reviewed. Her history of depression was reviewed. 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 She is alert, oriented, depressed, but not suicidal or homicidal. She had seen a psychiatrist who had started her on the medication but the patient had been unable to continue seeing that woman. Presently, she is being maintained on Effexor 37.5 mg having been started here by Dr. Napier (psychiatric regional sales consultant) in addition to her Prozac that she had been on prior to that. The rationale for that is that the patient had previously been on Cymbalta with a positive response. The patient's CBC and differential has been within normal limits. Her blood glucose was elevated at 262 (the patient has diabetes which has been the precipitant for her medical difficulties). Her vital signs and graphics have been reviewed. Presently, psychotropically, she is on Prozac 20, Effexor 37.5 mg. Ezekiel Castanon MD/ PhD
[2018-02-11] MEDS ORDERED: Insulin Lispro 1 UNITS/0.01 ML SC SCH (16:30)
--- NOTE | 2018-02-11 17:13 | PN ---
DATE: 02/11/2018 ENDOCRINOLOGY FOLLOWUP NOTE LOCATION: Room 276. SUBJECTIVE: This is a 57-year-old female with recent uncontrolled type 2 insulin-requiring diabetes, presenting here with exacerbation of diabetic gastroparesis with initially suboptimal metabolic control because of being n.p.o. and advanced only to a liquid diet with supervening marked hyperglycemic accelerations as noted thereof. Her glucose values today have ranged from 262-271 mg/dL. Her latest chemistry showed a BUN of 12, sodium 134, potassium 3.7, chloride 105, CO2 of 24, glucose 252, and creatinine 1. So, at this time, we will restart her more physiologic basal and bolus insulin regimen to optimize metabolic control as ordered. We will increase her Humalog to 6 units subcu t.i.d. before meals to start today. We will also add basal insulin with Levemir given as 10 units subcu at bedtime daily as given. We will titrate incrementally as indicated to optimize metabolic control. We will obtain serial chemistries and supplement accordingly as needed. We will follow. Tita Coe MD
[2018-02-11 17:28] VITALS: BP 154/92
[2018-02-11 18:40] VITALS: TEMP 98.1
[2018-02-11 20:27] VITALS: PULSE 86
--- NOTE | 2018-02-12 01:15 | DS ---
HISTORY OF PRESENT ILLNESS: I ordered a TCU eval yesterday. It was not done. I ordered again today. I am trying to get her to TCU for pain management, IV fluids, abdominal pain issues, her intractable nausea and vomiting, making sure she can eat. She is on IV antibiotics. She has multiple issues going on. She has gastroparesis, diabetes, pneumonia, abdominal pain. She had unresponsiveness, change in mentation and a UTI, so I am hoping that we can get her there to finish up her treatment. PHYSICAL EXAMINATION: VITAL SIGNS: She has a vital signs of 98.3 temp; 84 pulse; 161/98 blood pressure, I will increase the blood pressure med; 20 respiratory rate; 97% O2 sat on room air. HEENT: Head is atraumatic, normocephalic. HEART: Regular rate. LUNGS: Decreased breath sounds, but clear. ABDOMEN: Softer. Positive bowel sounds. EXTREMITIES: No edema. She has less pain. I put her on a fentanyl patch. There is no nausea at this moment and we might be able to increase her diet if she eats her liquids. MEDICATIONS: She is currently on aspirin, Bentyl, Catapres, Doryx, Duragesic, Effexor, insulin, Norvasc at 10 mg, potassium replacement, pantoprazole, fluoxetine, Sonata, Toradol, Trandate, Zofran and Zosyn IV. I will add another blood pressure pill to her meds. LABORATORY DATA: She has a white count of 7.6, hemoglobin 11.7, hematocrit 34.2, platelets of 240. She has a 137 sodium, potassium 3.5, BUN 10, creatinine 1, GFR is greater than 60, sugars is 198, calcium 7.9, AST is 30, ALT is 24, alk phos 72, total protein is 5.4. ASSESSMENT AND PLAN: I am hoping we can get her over to Transitional Care Unit today for antibiotics. We increased the diet slowly. Insulin adjustments, blood pressure care and the chest x-ray done on 02/10/2018, which was yesterday showed no active disease. We will continue with the aggressive treatment and care on [place]. Josafat Dent DO
--- NOTE | 2018-02-12 15:02 | CARD ---
APPROVED REPORT Date of service: 02/11/2018 EXAM: Two-dimensional and M-mode echocardiogram with Doppler and color Doppler. INDICATION V-TACH 2D DIMENSIONS Left Atrium (2D)4.7 (1.6-4.0cm)IVSd1.4 (0.7-1.1cm) LVDd3.8 (3.9-5.9cm)PWd1.4 (0.7-1.1cm) LVDs2.7 (2.5-4.0cm)FS (%) 28.3 % LVEF (%)55.4 (>50%) M-Mode DIMENSIONS Aortic Root3.20 (2.2-3.7cm)Aortic Cusp Exc.1.70 (1.5-2.0cm) Aortic Valve AoV Peak Muxaiouq228.0cm/Ian Peak GR.6mmHg Mitral Valve MV E Ddcsmygt32.5cm/sMV A Mgwxwosn41.8cm/sE/A ratio0.9 TDI Lateral E' Peak V7.60cm/sMedial E' Peak V4.19cm/sE/Lateral E'10.3 E/Medial E'18.7 Pulmonary Valve PV Peak Pwlkmbte93.5cm/sPV Peak Grad.2mmHg Tricuspid Valve TR Peak Ifyuhpje424ho/sRAP [id number] Peak Gr.22mmHg [id number] LEFT VENTRICLE The left ventricle is normal size. There is mild concentric left ventricular hypertrophy. The left ventricular function is normal. The left ventricular ejection fraction is within the normal range. There is normal LV segmental wall motion. Transmitral Doppler flow pattern is Grade I-abnormal relaxation pattern. RIGHT VENTRICLE The right ventricle is normal size. There is normal right ventricular wall thickness. The right ventricular systolic function is normal. ATRIA The left atrium is mildly dilated. The right atrium size is normal. AORTIC VALVE The aortic valve is mildly thickened. There is trace to mild aortic regurgitation. There is no aortic valvular stenosis. MITRAL VALVE The mitral valve is mildly thickened. Mitral regurgitation is mild. There is no mitral valve stenosis. TRICUSPID VALVE The tricuspid valve is normal in structure. There is mild tricuspid regurgitation. PULMONIC VALVE The pulmonary valve is normal in structure. There is no pulmonic valvular regurgitation. GREAT VESSELS The aortic root is normal in size. The IVC is normal in size and collapses >50% with inspiration. PERICARDIAL EFFUSION There is no pericardial effusion. <Conclusion> The left ventricle is normal size. There is mild concentric left ventricular hypertrophy. The left ventricular function is normal. The left ventricular ejection fraction is within the normal range. There is normal LV segmental wall motion. Transmitral Doppler flow pattern is Grade I-abnormal relaxation pattern. There is trace to mild aortic regurgitation. Mitral regurgitation is mild. There is mild tricuspid regurgitation.
== END 2018-02-11 21:17 | DRG 73 ==
LOC: ED 21:32 → ERH 02-06 02:06 → 2RSO 02-06 04:08
PROVIDERS: ADMIT Family Medicine; ATTEND Family Medicine
DX: E11.43 Type 2 diabetes mellitus with diabetic autonomic (poly)neuropathy (principal); K31.84 Gastroparesis; J69.0 Pneumonitis due to inhalation of food and vomit; I47.2 Ventricular tachycardia; N39.0 Urinary tract infection, site not specified; E11.65 Type 2 diabetes mellitus with hyperglycemia; E11.42 Type 2 diabetes mellitus with diabetic polyneuropathy; E11.319 Type 2 diabetes mellitus with unspecified diabetic retinopathy without macular edema; E11.51 Type 2 diabetes mellitus with diabetic peripheral angiopathy without gangrene; I10 Essential (primary) hypertension; I25.10 Atherosclerotic heart disease of native coronary artery without angina pectoris; I67.9 Cerebrovascular disease, unspecified; E83.42 Hypomagnesemia; E87.6 Hypokalemia; J44.9 Chronic obstructive pulmonary disease, unspecified; F32.9 Major depressive disorder, single episode, unspecified; E78.5 Hyperlipidemia, unspecified; E83.39 Other disorders of phosphorus metabolism; K21.9 Gastro-esophageal reflux disease without esophagitis; Z79.4 Long term (current) use of insulin; Z86.73 Personal history of transient ischemic attack (TIA), and cerebral infarction without residual deficits; Z79.82 Long term (current) use of aspirin; Z91.14 Patient's other noncompliance with medication regimen; Z91.19 Patient's noncompliance with other medical treatment and regimen; Z87.440 Personal history of urinary (tract) infections; Z89.431 Acquired absence of right foot; Z90.49 Acquired absence of other specified parts of digestive tract; Z90.710 Acquired absence of both cervix and uterus

== ENCOUNTER 2018-03-01 18:03 | Inpatient (IN) | payer BC, MEDICARE ==
[2018-03-01 18:26] VITALS: BMI 25.9
[2018-03-01] MEDS ORDERED: Ketamine 10 mg/ml Inj (20 ml) IVPB STA ×2 (18:50→19:54)
--- NOTE | 2018-03-01 19:35 | ED PDOC ---
Arrival/HPI - History of Present Illness Narrative History of Present Illness (Text): 03/01/18 20:31 Pt is a 57 yo F with pmhx of CVA, HTN, HLD, DM, seizures, depression, anxiety and gastroparesis who presents for LUQ abdominal. Pt states that she is very familiar with this pain and that she knows she is having an episode of gastroparesis. She states that it started this AM, and it has gotten worse since. She states that yesterday all she ate was some salad and had some vegetable juice. She admits to nausea, and non-bloody vomitus x 4. She states that the pain is 10/10 non-radiating and that she took her tramadol which did not touch the pain. She states that it a cramping pain which does not improve in any position or after vomiting. She denies any headache, chest pain, SOB, abd pain, constipation or diarrhea. Pmhx: CVA, HTN, HLD, DM, seizures, depression, anxiety and gastroparesis Pshx: Denies All: Dilaudid, morphine Social: Denies any tobacco use, etoh use or illicit drug use Fam Hx: Denies Time/Duration: 24 hours Symptom Onset: Sudden Symptom Course: Worsening Severity Level: 10 Activities at Onset: Rest Context: Sitting <Blessing Summers - Last Filed: 03/01/18 20:46> <Mehrdad Tariq - Last Filed: 03/01/18 22:04> - General Chief Complaint: Abdominal Pain Time Seen by Provider: 03/01/18 18:37 Past Medical History - Provider Review Nursing Documentation Reviewed: Yes - Past History Past History: No Previous - Infectious Disease Hx of Infectious Diseases: None - Tetanus Immunization Tetanus Immunization: Unknown - Cardiac Hx Cardiac Disorders: Yes Hx Hypertension: Yes - Pulmonary Hx Chronic Obstructive Pulmonary Disease (COPD): Yes - Neurological HX Cerebrovascular Accident: Yes - HEENT Hx HEENT Disorder: Yes Hx Cataracts: Yes (bilateral sx) - Renal Hx Renal Disorder: No - Endocrine/Metabolic Hx Diabetes Mellitus Type 2: Yes (Diabetic neuropathy) - Hematological/Oncological Hx Blood Disorders: Yes Hx Anemia: Yes (blood transfusion) - Integumentary Hx Dermatological Disorder: Yes Other/Comment: abcess - Musculoskeletal/Rheumatological Hx Falls: Yes - Gastrointestinal Hx Gastrointestinal Disorders: Yes - Genitourinary/Gynecological Hx Genitourinary Disorders: No - Psychiatric Hx Psychophysiologic Disorder: Yes Hx Anxiety: Yes Hx Depression: Yes Hx Panic Disorder: Yes Hx Substance Use: No (patient denies) Other/Comment: panic disorder - Surgical History Other/Comment: toes amputated from right foot - Anesthesia Hx Anesthesia Reactions: No Hx Malignant Hyperthermia: No - Suicidal Assessment Feels Threatened In Home Enviroment: No <Blessing Summers - Last Filed: 03/01/18 20:46> Family/Social History - Physician Review Nursing Documentation Reviewed: Yes Smoking Status: Smoker Currrent Status Unknown Hx Alcohol Use: No (patient denies) Hx Substance Use: No (patient denies) Hx Substance Use Treatment: No <Blessing Summers - Last Filed: 03/01/18 20:46> Family/Social History: No Known Family HX <Mehrdad Tariq - Last Filed: 03/01/18 22:04> Allergies/Home Meds <Blessing Summers - Last Filed: 03/01/18 20:46> <Mehrdad Tariq - Last Filed: 03/01/18 22:04> Allergies/Adverse Reactions: Allergies Narcotic/Dilaudid/Morphine Adverse Reaction (Uncoded 02/11/18 21:35) SHORTNESS OF BREATH Home Medications: Home Meds Medication Instructions Recorded Confirmed RX: Aspirin [Aspirin Chewable] 81 mg PO DAILY 07/31/17 02/11/18 RX: Dicyclomine [Bentyl] 10 mg PO TID 07/31/17 02/11/18 Review of Systems - Physician Review All systems were reviewed & negative as marked: Yes - Review of Systems Cardiovascular: absent: Chest Pain, Palpitations Gastrointestinal: Abdominal Pain, Nausea, Vomiting Neurological: absent: Headache <Blessing Summers - Last Filed: 03/01/18 20:46> Physical Exam Vital Signs Reviewed: Yes Vital Signs Temp Pulse Resp BP Pulse Ox 03/01/18 18:22 98.1 F 86 18 218/128 H 96 Temperature: Afebrile Blood Pressure: Hypertensive Pulse: Regular Respiratory Rate: Normal Appearance: Positive for: Non-Toxic, Uncomfortable Pain Distress: Severe Mental Status: Positive for: Alert and Oriented X 3 - Systems Exam Head: Present: Atraumatic, Normocephalic Pupils: Present: PERRL Extroacular Muscles: Present: EOMI Mouth: Present: Moist Mucous Membranes Respiratory/Chest: Present: Clear to Auscultation, Good Air Exchange. No: Respiratory Distress, Accessory Muscle Use, Wheezes, Rales Cardiovascular: Present: Regular Rate and Rhythm, Normal S1, S2. No: Murmurs Abdomen: Present: Tenderness (in the LUQ, tender to palpation), Normal Bowel Sounds. No: Distention, Peritoneal Signs, Rebound, Guarding Lower Extremity: Present: Normal Inspection, Neurovascularly Intact. No: Edema, CALF TENDERNESS Neurological: Present: GCS=15, Speech Normal Skin: Present: Warm, Dry, Normal Color. No: Rashes Psychiatric: Present: Alert, Oriented x 3, Normal Insight, Normal Concentration <Blessing Summers - Last Filed: 03/01/18 20:46> Vital Signs Temp Pulse Resp BP Pulse Ox 03/01/18 20:19 76 18 200/126 H 96 03/01/18 18:22 98.1 F 86 18 218/128 H 96 <Mehrdad Tariq - Last Filed: 03/01/18 22:04> Medical Decision Making ED Course and Treatment: 03/01/18 20:47 Pt is a 57 yo F with pmhx detailed above who presents for LUQ abdominal pain and n/v. She states that she has a hx of gastroparesis and is familiar with this pain and is gastroparesis pain. - CBC - CMP - Trops - Ketamine - RAD Interpretation Radiology Orders: 03/01/18 18:53 obstructive series [ABD 2 VIEWS (FLAT/UP OR DECUB)] [RAD] Stat - Medication Orders Current Medication Orders: Sodium Chloride (Sodium Chloride 0.9%) 1,000 mls @ 150 mls/hr IV .Q6H40M PATTI Discontinued Medications Ketamine HCl (Ketalar) 15 mg IVPB STAT STA Stop: 03/01/18 18:51 Ondansetron HCl (Zofran Inj) 4 mg IVP STAT STA Stop: 03/01/18 18:50 <Blessing Summers - Last Filed: 03/01/18 20:46> ED Course and Treatment: Impression: In agreement with resident note, which includes further HPI details. Patient was seen and evaluated with resident, came up with plan and treatment together. Pt, whose past medical history includes CVA, hypertension, hyperlipidemia, diabetes, seizures, depression, anxiety, and gastroparesis, presented for LUQ pain. Plan: -- EKG -- Labs, lipase, troponin -- UA -- Reassess 03/01/18 21:54 blood improved after antihypertensives. patient still reports only marginal improvement of abdominal pain and still feels nauseous. will admit for intractable pain. 03/01/18 21:59 admit accepted by [facility] for dr. dent, patient to be admitted for intractable adbominal pain, hx of diabetic gastroeparesis. - Lab Interpretations Lab Results: 03/01/18 20:09 Lab Results 03/01/18 20:09: WBC 7.6, RBC 4.06, Hgb 10.9 L, Hct 31.9 L, MCV 78.6 L, MCH 26.8, MCHC 34.2, RDW 13.0, Plt Count 262, MPV 9.7, Gran % 84.3 H, Lymph % (Auto) 11.4 L, [place] % (Auto) 3.4, Eos % (Auto) 0.8 L, Baso % (Auto) 0.1, Gran # 6.41, Lymph # (Auto) 0.9 L, [place] # (Auto) 0.3, Eos # (Auto) 0.1, Baso # (Auto) 0.01 - RAD Interpretation Narrative RAD Interpretations (Text): 03/01/18 21:5abd xr my read: nonspecific bowel gas pattern Radiology Orders: 03/01/18 18:53 obstructive series [ABD 2 VIEWS (FLAT/UP OR DECUB)] [RAD] Stat Career And Transition Teacher: ED Physician - EKG Interpretation EKG Interpretation (Text): 03/01/18 22:04 1832: sinus rhtythm at 96 bpm, nml qrs, nml axis, nonspecific t wave abn Interpreted by ED Physician: Yes Type: 12 lead EKG - Medication Orders Current Medication Orders: Sodium Chloride (Sodium Chloride 0.9%) 1,000 mls @ 150 mls/hr IV .Q6H40M PATTI Last Admin: 03/01/18 20:19 Dose: 150 mls/hr eMAR Start Stop Document 03/01/18 20:19 HI (Rec: 03/01/18 20:19 HI [id number]) Intravenous Solution Start Date 03/01/18 Start Time 20:19 Discontinued Medications Hydralazine HCl (Apresoline) 10 mg IVP STAT STA Stop: 03/01/18 20:48 Ketamine HCl (Ketalar) 15 mg IVPB STAT STA Stop: 03/01/18 18:51 Last Admin: 03/01/18 20:18 Dose: 15 mg eMAR Start Stop Document 03/01/18 20:18 HI (Rec: 03/01/18 20:18 NJ [id number]) Intravenous Solution Start Date 03/01/18 Start Time 20:18 Ketamine HCl (Ketalar) 5 mg IVPB STAT STA Stop: 03/01/18 19:55 Ondansetron HCl (Zofran Inj) 4 mg IVP STAT STA Stop: 03/01/18 18:50 Last Admin: 03/01/18 20:18 Dose: 4 mg IVP Administration Document 03/01/18 20:18 HI (Rec: 03/01/18 20:18 [place] [id number]) Charges for Administration # of IVP Administrations 1 <Mehrdad Tariq - Last Filed: 03/01/18 22:04> - Scribe Statement The provider has reviewed the documentation as recorded by the Scribe Shelbi Carcamo All medical record entries made by the Scribe were at my direction and personally dictated by me. I have reviewed the chart and agree that the record a ccurately reflects my personal performance of the history, physical exam, medical decision making, and the department course for this patient. I have also personally directed, reviewed, and agree with the discharge instructions and disposition. <Mehrdad Tariq - Last Filed: 03/01/18 22:04> Disposition/Present on Arrival - Present on Arrival History of DVT/PE: No History of Uncontrolled Diabetes: No Urinary Catheter: No History of Decub. Ulcer: No History Surgical Site Infection Following: None <Blessing Summers - Last Filed: 03/01/18 20:46> - Present on Arrival Any Indicators Present on Arrival: No - Disposition Have Diagnosis and Disposition been Completed?: Yes Disposition Time: 21:55 Patient Plan: Admission, Observation <Mehrdad Tariq - Last Filed: 10/02/18 22:04> - Disposition Diagnosis: Intractable abdominal pain, Diabetic gastroparesis Disposition: HOSPITALIZED Patient Problems: Current Active Problems Problem Status Onset Intractable abdominal pain Acute Diabetic gastroparesis Acute Condition: STABLE Referrals: Josafat Dent DO [Primary Care Provider] - Follow up with primary Forms: [employer] (Bel[place]ian)
[2018-03-01] MEDS: Sodium Chloride 0.9% 1,000 ML IV SCH (20:19)
[2018-03-01 20:23] LABS: BASO # 0.01 K/mm3 (0.0-2.0); BASO % 0.1 % (0.0-3.0); EOS # 0.1 (0.0-0.7); EOS % 0.8 % (1.5-5.0); GRAN # 6.41 (1.4-6.5); GRAN % 84.3 % (50.0-68.0); HEMOGLOBIN 10.9 g/dL (12.0-16.0); LYMPH # 0.9 (1.2-3.4); LYMPH % 11.4 % (22.0-35.0); MEAN CELL VOLUME 78.6 fl (80.0-105.0); MEAN CORPUSCULAR HEMOGLOBIN 26.8 pg (25.0-35.0); MEAN CORPUSCULAR HGB CONC 34.2 g/dl (31.0-37.0); MEAN PLATELET VOLUME 9.7 fl (7.0-11.0); MONO # 0.3 (0.1-0.6); MONO % 3.4 % (1.0-6.0); RBC 4.06 10^6/uL (3.5-6.1); WHITE BLOOD COUNT 7.6 10^3/ul (4.5-11.0)
[2018-03-01 21:02] LABS: ALB/GLOB RATIO 1.1 (1.1-1.8); ALBUMIN 3.3 g/dL (3.0-4.8); ALT/SGPT 34 U/L (7-56); AST/SGOT 32 U/L (14-36); BLOOD UREA NITROGEN 15 mg/dL (7-21); GFR NON-AFRICAN AMERICAN > 60; LIPASE 37 U/L (23-300)
[2018-03-01 21:07] LABS: TROPONIN I < 0.01 ng/mL
[2018-03-01] MEDS ORDERED: Insulin Regular 1 UNITS/0.01 ML ML IV STA (21:29)
--- NOTE | 2018-03-02 06:35 | CP.PCM.CON ---
<Wayne Rawls - Last Filed: 03/02/18 09:37> History of Present Illness - History of Present Illness History of Present Illness: PGY-4 GI Fellow Consult Note Pt is a 57 yo WF with DM 1 (A1c >10, c/b gastroparesis, retinopathy, neuropathy and vasculopathy) HTN, prior TIA, depression/anxiety presenting with abdominal pain. She states early on 03/01/18 she began to experience crampy, /, non- radiating, LUQ abdominal pain. She states she took her tramadol without relief. Eventually, she began to feel nauseous with multiple episodes of NB/NB emesis. As a result of her symptoms, she has decreased appetite. She states that she has been moving her bowels normally without dark tarry stools or any BRBPR. She reports compliance with her medications. 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 (~20 years ago), cholecystectomy, appendectomy, hysterectomy, , hernia repair, right foot transmetatarsal amputation, I&D right thigh abscess Endo: 11/15 - EGD - bile gastritis, gastric polyps FamHx: Mother - gastric cancer; Sister - Crohn's disease SocHx: Denies tobacco, EtOH or illicit drug use All: Narcotics Past Patient History - Infectious Disease Hx of Infectious Diseases: None - Tetanus Immunizations Tetanus Immunization: Unknown - Past Social History Smoking Status: Never Smoked - CARDIAC Hx Cardiac Disorders: Yes Hx Hypertension: Yes - PULMONARY Hx Chronic Obstructive Pulmonary Disease (COPD): Yes - NEUROLOGICAL HX Cerebrovascular Accident: Yes - HEENT Hx HEENT Problems: Yes Hx Cataracts: Yes (bilateral sx) - RENAL Hx Chronic Kidney Disease: No - ENDOCRINE/METABOLIC Hx Diabetes Mellitus Type 2: Yes (Diabetic neuropathy) - HEMATOLOGICAL/ONCOLOGICAL Hx Blood Disorders: Yes Hx Anemia: Yes (blood transfusion) - INTEGUMENTARY Hx Dermatological Problems: Yes Other/Comment: abcess - MUSCULOSKELETAL/RHEUMATOLOGICAL Hx Falls: Yes (Frequent falls last fall 02/28/18) - GASTROINTESTINAL Hx Gastrointestinal Disorders: Yes - GENITOURINARY/GYNECOLOGICAL Hx Genitourinary Disorders: No - PSYCHIATRIC Hx Psychophysiologic Disorder: Yes Hx Anxiety: Yes Hx Depression: Yes Hx Panic Symptoms: Yes Other/Comment: panic disorder - SURGICAL HISTORY Other/Comment: toes amputated from right foot - ANESTHESIA Hx Anesthesia Reactions: No Hx Malignant Hyperthermia: No Meds Allergies/Adverse Reactions: Allergies Allergy/AdvReac Type Severity Reaction Status Date / Time Narcotic/Dilaudid/Morphine AdvReac SHORTNESS Uncoded 02/11/18 21:35 OF BREATH - Medications Medications: Current Medications Hydralazine HCl (Apresoline) 10 mg IVP STAT [facility] Last Admin: 03/01/18 22:09 Dose: 10 mg Sodium Chloride (Sodium Chloride 0.9%) 1,000 mls @ 50 mls/hr IV .Q20H [facility] Ketorolac Tromethamine (Toradol) 30 mg IVP Q6H PRN PRN Reason: Pain, moderate (4-7) Metoclopramide HCl (Reglan) 5 mg IVP Q6 [facility] Last Admin: 03/02/18 01:00 Dose: Not Given Ondansetron HCl (Zofran Inj) 4 mg IVP Q4 PRN PRN Reason: Nausea/Vomiting Physical Exam - Constitutional Appears: No Acute Distress, Chronically Ill - Head Exam Head Exam: ATRAUMATIC, NORMAL INSPECTION - Eye Exam Eye Exam: EOMI. absent: Conjunctival injection, Scleral icterus - ENT Exam ENT Exam: Mucous Membranes Dry, Normal External Ear Exam. absent: Mucous Membranes Moist - Respiratory Exam Respiratory Exam: Clear to Auscultation Bilateral, NORMAL BREATHING PATTERN. absent: Accessory Muscle Use, Wheezes - Cardiovascular Exam Cardiovascular Exam: Tachycardia, REGULAR RHYTHM - GI/Abdominal Exam GI & Abdominal Exam: Normal Bowel Sounds, Soft, Tenderness (mildly ttp in LUQ without guarding). absent: Bruit, Diminished Bowel Sounds, Distended, Firm, Hernia, Organomegaly, Pulsatile Mass, Rebound, Rigid - Rectal Exam Rectal Exam: Deferred - Extremities Exam Extremities exam: Positive for: normal inspection. Negative for: pedal edema - Neurological Exam Neurological exam: CN II-XII Intact (tired) - Psychiatric Exam Psychiatric exam: Flat Affect, Normal Mood - Skin Skin Exam: Dry, Normal Color, Warm Results - Vital Signs Recent Vital Signs: Last Vital Signs Temp 97.6 F 03/02/18 00:01 Pulse 76 03/02/18 02:00 Resp 20 03/02/18 00:01 BP 162/89 H 03/02/18 00:01 Pulse Ox 94 L 03/02/18 00:01 - Labs Result Diagrams: 03/02/18 07:50 03/02/18 07:50 Labs: Laboratory Results - last 24 hr 03/01/18 03/01/18 20:09 20:09 WBC 7.6 RBC 4.06 Hgb 10.9 L Hct 31.9 L MCV 78.6 L MCH 26.8 MCHC 34.2 RDW 13.0 Plt Count 262 MPV 9.7 Gran % 84.3 H Lymph % (Auto) 11.4 L [place] % (Auto) 3.4 Eos % (Auto) 0.8 L Baso % (Auto) 0.1 Gran # 6.41 Lymph # (Auto) 0.9 L [place] # (Auto) 0.3 Eos # (Auto) 0.1 Baso # (Auto) 0.01 Sodium 137 Potassium 3.6 Chloride 97 L Carbon Dioxide 33 Anion Gap 11 BUN 15 Creatinine 0.7 Est GFR ( Amer) > 60 Est GFR (Non-Af Amer) > 60 Random Glucose 375 H* D Calcium 9.0 Total Bilirubin 0.4 AST 32 ALT 34 Alkaline Phosphatase 127 H D Troponin I < 0.01 Total Protein 6.2 Albumin 3.3 Globulin 2.9 Albumin/Globulin Ratio 1.1 Lipase 37 Assessment & Plan - Assessment and Plan (Free Text) Assessment: 56 yo female with PMHx significant for HTN, uncontrolled type 1 DM (a1c 10.4) complicated by retinopathy, polyneuropathy, vasculopathy, gastroparesis, prior TIA, depression/anxiety who presented to the hospital with abdominal pain, nausea and vomiting. -Diabetic gastroparesis -Uncontrolled DM with complications Plan: -Strict glycemic control both inpatient and outpatient -ADAT with small frequent meals, Liquid diet -Avoid narcotics as able -Cont Ondansetron, if getting multiple doses would monitor QT from time to time -Cautious use of metoclopramide -Made meds PO and PRN metoclopramide Thank you for the consult, will sign off. Please page if questions. Pt seen and examined with Dr. Abrams. Please see attestation for further recs/changes. <Benton Abrams - Last Filed: 03/02/18 12:07> Meds - Medications Medications: Current Medications Amlodipine Besylate (Norvasc) 10 mg PO DAILY [facility] Last Admin: 03/02/18 10:25 Dose: 10 mg Aspirin (Aspirin Chewable) 81 mg PO DAILY [facility] Fentanyl (Duragesic) 1 patch TD Q72H [facility] Last Admin: 03/02/18 09:13 Dose: 1 patch Hydralazine HCl (Apresoline) 10 mg IVP STAT [facility] Last Admin: 03/01/18 22:09 Dose: 10 mg Sodium Chloride (Sodium Chloride 0.9%) 1,000 mls @ 50 mls/hr IV .Q20H [facility] Insulin Detemir (Levemir) 4 unit SC HS [facility] Insulin Human Lispro (Humalog) 3 units SC AC [facility] Insulin Human Lispro (Humalog Low) 0 units SC ACHS [facility]; Protocol Ketorolac Tromethamine (Toradol) 30 mg IVP Q6H PRN PRN Reason: Pain, moderate (4-7) Last Admin: 03/02/18 09:26 Dose: 30 mg Lorazepam (Ativan) 0.5 mg PO TID PRN; Protocol PRN Reason: Anxiety Metoclopramide HCl (Reglan) 5 mg PO Q6H PRN PRN Reason: Nausea/Vomiting Metoprolol Tartrate (Lopressor) 25 mg PO 0800,1800 [facility] Last Admin: 03/02/18 09:12 Dose: 25 mg Ondansetron HCl (Zofran Tab) 4 mg PO Q6H PRN PRN Reason: Nausea/Vomiting Pantoprazole Sodium (Protonix Ec Tab) 40 mg PO 0600 [facility] Venlafaxine HCl (Effexor) 75 mg PO DAILY [facility] Results - Vital Signs Recent Vital Signs: Last Vital Signs Temp 97.9 F 03/02/18 06:00 Pulse 90 03/02/18 10:00 Resp 20 03/02/18 06:00 BP 142/69 03/02/18 10:25 Pulse Ox 94 L 03/02/18 06:00 - Labs Result Diagrams: 03/02/18 07:50 03/02/18 07:50 Labs: Laboratory Results - last 24 hr 03/01/18 03/01/18 03/01/18 20:09 20:09 23:25 WBC 7.6 RBC 4.06 Hgb 10.9 L Hct 31.9 L MCV 78.6 L MCH 26.8 MCHC 34.2 RDW 13.0 Plt Count 262 MPV 9.7 Gran % 84.3 H Lymph % (Auto) 11.4 L [place] % (Auto) 3.4 Eos % (Auto) 0.8 L Baso % (Auto) 0.1 Gran # 6.41 Lymph # (Auto) 0.9 L [place] # (Auto) 0.3 Eos # (Auto) 0.1 Baso # (Auto) 0.01 Sodium 137 Potassium 3.6 Chloride 97 L Carbon Dioxide 33 Anion Gap 11 BUN 15 Creatinine 0.7 Est GFR ( Amer) > 60 Est GFR (Non-Af Amer) > 60 POC Glucose (mg/dL) 317 H Random Glucose 375 H* D Calcium 9.0 Total Bilirubin 0.4 AST 32 ALT 34 Alkaline Phosphatase 127 H D Troponin I < 0.01 Total Protein 6.2 Albumin 3.3 Globulin 2.9 Albumin/Globulin Ratio 1.1 Lipase 37 03/02/18 03/02/18 03/02/18 07:33 07:50 07:50 WBC 7.2 RBC 3.70 Hgb 9.8 L Hct 29.3 L MCV 79.2 L MCH 26.5 MCHC 33.4 RDW 13.4 Plt Count 242 MPV 8.9 Gran % Lymph % (Auto) [place] % (Auto) Eos % (Auto) Baso % (Auto) Gran # Lymph # (Auto) [place] # (Auto) Eos # (Auto) Baso # (Auto) Sodium 138 Potassium 3.0 L Chloride 102 Carbon Dioxide 31 Anion Gap 8 L BUN 16 Creatinine 0.9 Est GFR ( Amer) > 60 Est GFR (Non-Af Amer) > 60 POC Glucose (mg/dL) 124 H Random Glucose 132 H Calcium 8.4 Total Bilirubin 0.2 AST 18 ALT 32 Alkaline Phosphatase 97 Troponin I Total Protein 5.2 L Albumin 2.7 L Globulin 2.5 Albumin/Globulin Ratio 1.1 Lipase Attending/Attestation - Attestation I have personally seen and examined this patient.: Yes I have fully participated in the care of the patient.: Yes I have reviewed all pertinent clinical information: Yes Notes (Text): 03/02/18 12:06 I have seen and examined patient with GI fellow. Tolerating PO liquids, on duragesic patch and toradol. Tight glycemic control. Will change all IV meds to po and zofram prn. No further planned GI intervention, will sign off case. Please reconsult as necessary
[2018-03-02 08:01] LABS: HEMOGLOBIN 9.8 g/dL (12.0-16.0); MEAN CELL VOLUME 79.2 fl (80.0-105.0); MEAN CORPUSCULAR HEMOGLOBIN 26.5 pg (25.0-35.0); MEAN CORPUSCULAR HGB CONC 33.4 g/dl (31.0-37.0); MEAN PLATELET VOLUME 8.9 fl (7.0-11.0); RBC 3.7 10^6/uL (3.5-6.1); RED CELL DISTRIBUTION WIDTH 13.4 % (11.5-14.5); WHITE BLOOD COUNT 7.2 10^3/ul (4.5-11.0)
[2018-03-02 08:21] LABS: ALB/GLOB RATIO 1.1 (1.1-1.8); ALBUMIN 2.7 g/dL (3.0-4.8); ALT/SGPT 32 U/L (7-56); AST/SGOT 18 U/L (14-36); BLOOD UREA NITROGEN 16 mg/dL (7-21); CALCIUM 8.4 mg/dL (8.4-10.5); GFR NON-AFRICAN AMERICAN > 60
--- NOTE | 2018-03-02 08:39 | HP ---
HISTORY OF PRESENT ILLNESS: I saw Ting last night in the emergency room when they called me to come to see her on Wednesday night before 6 o'clock and I did H and P dictated on my cell phone. I guess, it did not translate into the system, I will do it again. She is a 57-year-old white female who I know very well from multiple admissions for gastroparesis, elevated blood sugars, severe abdominal pain with nausea, vomiting. She comes in being a 57-year-old white female with severe abdominal pain, nausea, vomiting. She did have a bowel movement. She did take her medications at home. She is on a Duragesic patch and the pain is 10/10. PAST MEDICAL HISTORY: She has a past medical history of a CVA, hypertension, high cholesterol, diabetes, seizures, depression, anxiety, gastroparesis. She does have a transmet surgery of the right foot. The toes are amputated. ALLERGIES: SHE HAS ALLERGIES TO DILAUDID AND MORPHINE. SOCIAL HISTORY: No smoking. No drinking. No drugs. FAMILY HISTORY: Hypertension, diabetes in the family. This is a sudden change in pain over 24 hours. She was doing well up until then. She has COPD, hypertension, she has a CVA, bilateral cataract surgery, diabetic neuropathy. She has had blood transfusions. She has abscesses in the past. She has had falls. She has anxiety, depression. She has panic disorder. She had toes amputated from the right foot. She does smoke, not anymore. No alcohol. No drugs. Hypertension and diabetes in the family. She is allergic to Dilaudid and morphine narcotics. She takes a whole bunch of medications at home. She is on a Duragesic patch. Takes aspirin, Bentyl, Protonix. No acute vision or hearing changes. No sore throat. No chest pain or palpitations. No shortness of breath or cough. There is severe abdominal pain with cramping. She is rolled up in a ball. She has some nauseousness and vomiting. She had a bowel movement. No constipation, diarrhea. The extremities, she tells me they are swollen, but that looks fine. PHYSICAL EXAMINATION: VITAL SIGNS: She has a 98.1 temp; 86 pulse; 18 respiratory rate; 218/128 blood pressure, we will have to deal with the hypertension too, which is probably from the abdominal pain and 96% O2 sat. GENERAL: She is very much in pain in bed. Alert and oriented x3. HEENT: Head is atraumatic, normocephalic. Extraocular muscles are intact. Throat is moist. NECK: Supple. HEART: Regular rate. Normal S1 and S2. LUNGS: Decreased breath sounds, but clear to auscultation. ABDOMEN: She has left upper quadrant tenderness. Actually, the whole belly has tenderness. Decreased bowel sounds. No guarding or rebound, but lots of discomfort everywhere in the belly. No CVA tenderness. GCS is 15. Speech is normal. SKIN: Warm and dry. Alert and oriented x3. EXTREMITIES: She has a right transmet amputation. LABORATORY DATA: She had multiple tests. CAT scan of the abdomen and pelvis is pending. She has a 137 sodium, potassium 3.6, BUN 15, creatinine 0.7, GFR is greater than 60, sugar is 375, calcium is 9, total bili is 0.4, AST is 32, ALT is 34, alk phos 127, troponin I is less than 0.01, total protein is 6.2, albumin is 3.3, globulin is 2.9, lipase is 37. White count is 7.6, hemoglobin 10.9, hematocrit 31.9, platelets of 262. IMPRESSION: She does have a consult with Endocrinology and GI. She is currently on Apresoline, Reglan, IV fluids, Toradol and Zofran. We will change the IV fluids to half-normal from normal. We will check her labs this morning. We will continue with her medications and her insulin. She is here for gastroparesis, severe abdominal pain. She is on observation and she does improve. We will try and discharge her later today. Josafat Dent DO
[2018-03-02] MEDS ORDERED: Potassium Chloride 20 mEq ER Tab PO ONE ×2 (08:52→12:00)
--- NOTE | 2018-03-02 09:01 | RAD ---
Date of service: 03/01/2018 HISTORY: Diffuse abdominal pain, vomiting COMPARISON: No prior. FINDINGS: BOWEL: Normal. No obstruction. No free air. Surgical clips, by history related to prior colectomy. BONES: Normal. OTHER FINDINGS: None. IMPRESSION: No acute findings related to/accounting for the clinical presentation.
--- NOTE | 2018-03-02 10:22 | CON ---
DATE: 03/02/2018 ENDOCRINOLOGY CONSULT LOCATION: Room 262. HISTORY OF PRESENT ILLNESS: This is a 57-year-old female with known history of type 2 insulin-requiring diabetes presenting here with severe left lower quadrant pain and evaluated to have exacerbation of diabetic gastroparesis and is being referred now for diabetic evaluation and management. PAST MEDICAL HISTORY: As mentioned above, history of type 2 insulin-requiring diabetes, on a combination of a very low dose of Levemir given as 5 units at bedtime with Levemir given as 4 units at bedtime and NovoLog given as 5 units t.i.d. before meals, history of hypertension and dyslipidemia, history of diabetic retinopathy and polyneuropathy, history of a previous CVA with transient ischemic events with no residual weakness, history of coronary artery disease and peripheral arterial disease and vasculopathy with previous toe amputations in the right foot, history of chronic obstructive lung disease with ongoing nicotine dependence, history of generalized anxiety and depression with occasional panic attack. FAMILY HISTORY: Positive for diabetes and hypertension. SOCIAL HISTORY: The patient has supportive family. Admits to actively smoking at this time, close to a pack a day for many years. REVIEW OF SYSTEMS: As mentioned above, admits to generalized body weakness with episodic bouts of dizziness and lightheadedness, worse on the day of admission. Also, admits to bifrontal headaches and visual blurring. No chest pains or palpitations, but admits to occasional bouts of shortness of breath, especially on exertion. Her oral intake is variable with nausea, dyspepsia and vague upper abdominal pains with severe left lower quadrant pain of about 10/10 in intensity as noted with no relief from tramadol being given on the outpatient. PHYSICAL EXAMINATION: GENERAL: This is an average-built female in no apparent distress. VITAL SIGNS: Blood pressure of 150/90, pulse of 70 beats per minute and regular, temperature 98, respirations 20, height is 4 feet 9 inches, weight is 128 pounds. HEENT: Head normocephalic. Eyes anicteric with pink conjunctivae. Funduscopy is at this time. Ears, nose and throat are, otherwise, normal. NECK: Supple. Thyroid gland is normal in size. No carotid bruits or cervical adenopathy. CARDIOPULMONARY: Some adynamic precordium. S1, S2 is rapid and regular. LUNGS: Clear to auscultation. ABDOMEN: Flat, soft with positive bowel sounds. EXTREMITIES: No peripheral edema. Pulses are +2 bilaterally. LABORATORY DATA: Her chemistry showed a sodium 137, potassium 3.6, chloride 97, CO2 33, glucose 375 and creatinine 0.7. ASSESSMENT: This is a 57-year-old female with uncontrolled and decompensated type 2 insulin-requiring diabetes presenting here with acute exacerbation of diabetic gastroparesis with multiple hospital readmissions for the same and also has uncontrolled type 2 insulin-requiring diabetes with a subtherapeutic insulin regimen as given. She also has diabetic microvascular complications of retinopathy and polyneuropathy with diabetic macrovascular complications of coronary artery disease, cerebrovascular disease with a previous transient ischemic attack and peripheral arterial disease and vasculopathy with previous toe amputations in the right foot. PLAN OF MANAGEMENT: We will modify her current insulin regimen as her oral intake has been advanced to solid food, starting at lunchtime today as ordered. We will also continue the basal insulin given as Levemir at 4 units subcu at bedtime daily as given. We will titrate incrementally as indicated to optimize metabolic control. A hemoglobin A1c will be done to confirm her prior glycemic control and baseline thyroid function studies will be ordered. We will follow and advise accordingly. Tita Coe MD
[2018-03-02] MEDS ORDERED: Insulin Reg-MEDIUM-Coverage SC SCH (11:30)
[2018-03-02] MEDS: Sodium Chloride 0.9% 1,000 ML IV SCH ×3 (12:29→22:21)
[2018-03-02] MEDS: Insulin Lispro (humaLOG) LOW Coverage SC SCH ×3 (12:30→22:09)
--- NOTE | 2018-03-02 14:12 | DS ---
HISTORY OF PRESENT ILLNESS: She came in last night with severe abdominal pain, crying, nauseousness. This morning, she is a different person. She slept well. She is comfortable. No abdominal pain. No nausea or vomiting. She is little bit hungry. I gave her clear fluids for breakfast. She does well, increase her diet for lunch for regular. If she does well, I will discharge her home this afternoon. She is here for severe abdominal pain, nausea, vomiting, gastroparesis. She is better this morning. PHYSICAL EXAMINATION: VITAL SIGNS: Temperature 97.9, 70 pulse, 142/89 blood pressure, 20 respiratory rate, 94% O2 sat on room air. HEENT: Head: Atraumatic, normocephalic. She is actually smiling this morning. HEART: Regular rate. LUNGS: Decreased breath sounds, but clear. ABDOMEN: Soft. Positive bowel sounds. Nontender. No guarding. No rebound. No CVA tenderness. EXTREMITIES: No edema. MEDICATIONS: She is currently on Apresoline, aspirin, Ativan, Duragesic patch, Effexor, Levemir, Lopressor, Norvasc, Protonix, Reglan, IV fluids, Toradol and Zofran. LABORATORY DATA: She has a 7.6 white count, 10.9 hemoglobin, 262 platelets. She has a 137 sodium, potassium 3.6, BUN 15, creatinine 8.7, GFR is greater than 60, sugar is 375, AST is 32, ALT is 34, alk phos 127. Troponin I is less than 0.01, total protein 6.2. She will also be on insulin coverage. We will keep an eye on those blood sugars and I had the feeling she might fail to be discharged later today. She is here with severe abdominal pain, intractable nausea or vomiting and gastroparesis. I am hoping that it settled down and we can possibly discharge her later this afternoon if she eats well. I discussed with the nurse and the patient. Otherwise, we will make her an inpatient and we will keep her for few more days. Josafat Dent DO
[2018-03-02] MEDS: Insulin Lispro 1 UNITS/0.01 ML SC SCH ×2 (15:31→19:13)
--- NOTE | 2018-03-02 16:41 | CARD ---
APPROVED REPORT Date of service: 03/01/2018 EKG Measurement Heart [id number] <Conclusion> Sinus rhythm with marked sinus arrhythmia T wave abnormality, consider inferior ischemia Prolonged QT Abnormal ECG
[2018-03-02] MEDS: Insulin Detemir 100 units/ml Vial (Levemir) SC SCH (22:09)
[2018-03-03] MEDS: Pantoprazole 40 mg EC Tab PO SCH (05:13)
[2018-03-03 06:59] LABS: ALB/GLOB RATIO 1.1 (1.1-1.8); ALBUMIN 2.8 g/dL (3.0-4.8); ALT/SGPT 36 U/L (7-56); AST/SGOT 31 U/L (14-36); BLOOD UREA NITROGEN 19 mg/dL (7-21); CALCIUM 8.3 mg/dL (8.4-10.5); GFR NON-AFRICAN AMERICAN 51
[2018-03-03] MEDS: Insulin Lispro 1 UNITS/0.01 ML SC SCH ×3 (08:16→17:13)
[2018-03-03] MEDS: Insulin Lispro (humaLOG) LOW Coverage SC SCH ×4 (08:17→22:09)
--- NOTE | 2018-03-03 08:44 | PN ---
DATE: 03/03/2018 SUBJECTIVE: I was hoping to do a discharge on Ting the other day, but she could not eat or tolerate the clears, nor the regular foods, so I made her an inpatient and backed down to clears. We have consulted with Triage Technician and GI. She is in bed this morning in pain, not as nauseous, but in pain. PHYSICAL EXAMINATION: VITAL SIGNS: 97.7 temp, 74 pulse, 155/74 blood pressure, 20 respiratory rate, 97% O2 sat. GENERAL: She is not hungry at all. HEENT: Head is atraumatic, normocephalic. HEART: Regular rate. LUNGS: Decreased breath sounds, but clear. ABDOMEN: Decreased bowel sounds were present. No guarding or rebound. Soft, discomfort. EXTREMITIES: No edema. MEDICATIONS: She is currently on Apresoline, aspirin, Ativan, Catapres, Duragesic patch, Effexor, Humalog, Levemir, Lopressor, amlodipine, Protonix, Reglan, IV fluids, Toradol and Zofran. LABORATORY DATA: She has a 7.2 white count, 9.8 hemoglobin, 29.3 hematocrit with 242 platelets. 135 sodium; potassium 3.6; BUN 19; creatinine 1.1; GFR is 51; sugar is 130, better; calcium is 8.3; total bili is 0.2; AST is 31; ALT is 36; alk phos 107. ASSESSMENT AND PLAN: As per GI and Endocrinology, when she can eat and the pain and the throwing up goes, I will discharge her. I am waiting for that to happen. When it happens, we will do it. She is on clears now. We will see how she does clears, we will increase it to regular. Josafat Dent DO [email or web address]
[2018-03-03] MEDS: Sodium Chloride 0.9% 1,000 ML IV SCH ×2 (12:22→15:48)
--- NOTE | 2018-03-03 12:30 | PN ---
DATE: 03/03/2018 ENDOCRINOLOGY FOLLOWUP NOTE LOCATION: Room 262. SUBJECTIVE: This is a 57-year-old female with recent uncontrolled type 2 insulin-requiring diabetes presenting here with exacerbation of abdominal pain with underlying diabetic gastroparesis and is now being followed closely for metabolic management. Her oral intake remains variable at this time with persistent nausea and dyspepsia and vague upper abdominal pains. Her glycemic levels are fluctuating, but much improved overnight as noted with glucose levels have ranged from 115-135 mg/dL. Her chemistry showed a BUN of 19, sodium 135, potassium 3.6, chloride 100, CO2 29, glucose 130 and creatinine 1.1. So at this time, we will continue the same basal and bolus insulin regimen as given with Levemir given as 4 units subcu at bedtime daily as ordered. We will continue the Humalog given at a very minimal dose of 3 units subcu t.i.d. before meals to start today as ordered. We will observe her metabolic response and glycemic fluctuations especially with the variability of her oral intake and keep the same dose regimen until her solid food intake really improved accordingly. We will obtain serial chemistries and supplement accordingly as needed. We will continue the normal saline infusion as ordered. We will follow. Tita Coe MD
[2018-03-03] MEDS: Insulin Detemir 100 units/ml Vial (Levemir) SC SCH (22:09)
[2018-03-04] MEDS: Sodium Chloride 0.9% 1,000 ML IV SCH ×2 (00:30→12:21)
[2018-03-04] MEDS: Pantoprazole 40 mg EC Tab PO SCH (05:18)
[2018-03-04 06:35] LABS: HEMOGLOBIN 9.7 g/dL (12.0-16.0); MEAN CELL VOLUME 80.5 fl (80.0-105.0); MEAN CORPUSCULAR HEMOGLOBIN 26.6 pg (25.0-35.0); MEAN CORPUSCULAR HGB CONC 33.1 g/dl (31.0-37.0); MEAN PLATELET VOLUME 9.6 fl (7.0-11.0); RBC 3.64 10^6/uL (3.5-6.1); RED CELL DISTRIBUTION WIDTH 13.4 % (11.5-14.5); WHITE BLOOD COUNT 6.8 10^3/ul (4.5-11.0)
[2018-03-04 07:41] LABS: ALB/GLOB RATIO 1.1 (1.1-1.8); ALBUMIN 2.7 g/dL (3.0-4.8); ALT/SGPT 35 U/L (7-56); AST/SGOT 21 U/L (14-36); BLOOD UREA NITROGEN 22 mg/dL (7-21); CALCIUM 7.9 mg/dL (8.4-10.5); GFR NON-AFRICAN AMERICAN 51
[2018-03-04] MEDS: Insulin Lispro (humaLOG) LOW Coverage SC SCH ×2 (07:50→12:00)
--- NOTE | 2018-03-04 07:57 | CP.PCM.PN ---
<MerrexRoselynrobert - Last Filed: 03/04/18 10:28> Subjective - Date & Time of Evaluation Date of Evaluation: 03/04/18 Time of Evaluation: 07:10 - Subjective Subjective: PGY-4 GI Fellow Prog Note Pt sleeping in bed when seen this AM. State abd pain about the same since last eval. States she is eating but "not much." Reports BM yesterday that for formed brown. Denied any n/v, f/c. 5 point ROS negative other than stated above Objective - Vital Signs/Intake and Output Vital Signs (last 24 hours): Temp Pulse Resp BP Pulse Ox 98 F 58 L 19 126/70 95 03/04/18 06:00 03/04/18 06:00 03/04/18 06:00 03/04/18 06:00 03/04/18 06:00 Intake and Output: 03/04/18 03/04/18 06:59 18:59 Intake Total 1440 Output Total 500 Balance 940 - Medications Medications: Current Medications Amlodipine Besylate (Norvasc) 10 mg PO DAILY [facility] Last Admin: 03/03/18 09:47 Dose: 10 mg Aspirin (Aspirin Chewable) 81 mg PO DAILY [facility] Last Admin: 03/03/18 09:47 Dose: 81 mg Clonidine HCl (Catapres Tts1 0.1 Mg/24 Hr) 1 patch TD Q7D@1000 [facility] Last Admin: 03/02/18 13:09 Dose: 1 patch Fentanyl (Duragesic) 1 patch TD Q72H [facility] Last Admin: 03/02/18 09:13 Dose: 1 patch Sodium Chloride (Sodium Chloride 0.9%) 1,000 mls @ 50 mls/hr IV .Q20H [facility] Last Admin: 03/04/18 00:30 Dose: 50 mls/hr Insulin Detemir (Levemir) 4 unit SC HS [facility] Last Admin: 03/03/18 22:09 Dose: Not Given Insulin Human Lispro (Humalog) 3 units SC AC [facility] Last Admin: 03/03/18 17:13 Dose: Not Given Insulin Human Lispro (Humalog Low) 0 units SC ACHS [facility]; Protocol Last Admin: 03/04/18 07:50 Dose: Not Given Ketorolac Tromethamine (Toradol) 30 mg IVP Q6H PRN PRN Reason: Pain, moderate (4-7) Last Admin: 03/04/18 05:18 Dose: 30 mg Lorazepam (Ativan) 0.5 mg PO TID PRN; Protocol PRN Reason: Anxiety Last Admin: 03/04/18 05:23 Dose: 0.5 mg Metoclopramide HCl (Reglan) 5 mg PO Q6H PRN PRN Reason: Nausea/Vomiting Last Admin: 03/02/18 22:26 Dose: 5 mg Metoprolol Tartrate (Lopressor) 25 mg PO 0800,1800 [facility] Last Admin: 03/03/18 18:02 Dose: 25 mg Ondansetron HCl (Zofran Tab) 4 mg PO Q6H PRN PRN Reason: Nausea/Vomiting Last Admin: 03/03/18 09:53 Dose: 4 mg Pantoprazole Sodium (Protonix Ec Tab) 40 mg PO 0600 [facility] Last Admin: 03/04/18 05:18 Dose: 40 mg Venlafaxine HCl (Effexor) 75 mg PO DAILY [facility] Last Admin: 03/03/18 09:47 Dose: 75 mg - Labs Labs: 03/04/18 06:00 03/04/18 06:00 - Constitutional Appears: No Acute Distress, Chronically Ill - Head Exam Head Exam: ATRAUMATIC, NORMAL INSPECTION - Eye Exam Eye Exam: EOMI. absent: Conjunctival injection, Scleral icterus - ENT Exam ENT Exam: Mucous Membranes Moist. absent: Mucous Membranes Dry, Normal External Ear Exam - Respiratory Exam Respiratory Exam: NORMAL BREATHING PATTERN. absent: Accessory Muscle Use - GI/Abdominal Exam GI & Abdominal Exam: Soft, Normal Bowel Sounds. absent: Bruit, Distended, Firm, Guarding, Rigid, Tenderness, Diminished Bowel Sounds, Mass, Organomegaly, Pulsatile Mass, Rebound Assessment and Plan - Assessment and Plan (Free Text) Assessment: 56 yo female with PMHx significant for HTN, uncontrolled type 1 DM (a1c 10.4) complicated by retinopathy, polyneuropathy, vasculopathy, gastroparesis, prior TIA, depression/anxiety who presented to the hospital with abdominal pain, nause a and vomiting. -Diabetic gastroparesis -Uncontrolled DM with complications Plan: -Strict glycemic control both inpatient and outpatient -Small frequent meals -Avoid narcotics as able -Cont Ondansetron, if getting multiple doses would monitor QT from time to time -Cautious use of metoclopramide -Encouraged patient to f/u with Dr. Palma at [facility] - Also informed pt about domperidone use Thank you for the consult, will sign off. Please page if questions. Pt seen and examined with Dr. Zambrano. Please see attestation for further recs/changes. <Dagoberto Zambrano - Last Filed: 03/04/18 11:05> Objective - Vital Signs/Intake and Output Vital Signs (last 24 hours): Temp Pulse Resp BP Pulse Ox 98 F 89 19 145/95 H 95 03/04/18 06:00 03/04/18 08:12 03/04/18 06:00 03/04/18 10:43 03/04/18 06:00 Intake and Output: 03/04/18 03/04/18 06:59 18:59 Intake Total 1440 Output Total 500 Balance 940 - Medications Medications: Current Medications Amlodipine Besylate (Norvasc) 10 mg PO DAILY [facility] Last Admin: 03/04/18 10:43 Dose: 10 mg Aspirin (Aspirin Chewable) 81 mg PO DAILY [facility] Last Admin: 03/04/18 10:44 Dose: 81 mg Clonidine HCl (Catapres Tts1 0.1 Mg/24 Hr) 1 patch TD Q7D@1000 [facility] Last Admin: 03/02/18 13:09 Dose: 1 patch Fentanyl (Duragesic) 1 patch TD Q72H [facility] Last Admin: 03/02/18 09:13 Dose: 1 patch Sodium Chloride (Sodium Chloride 0.9%) 1,000 mls @ 50 mls/hr IV .Q20H [facility] Last Admin: 03/04/18 00:30 Dose: 50 mls/hr Insulin Detemir (Levemir) 4 unit SC HS [facility] Last Admin: 03/03/18 22:09 Dose: Not Given Insulin Human Lispro (Humalog) 3 units SC AC [facility] Last Admin: 03/04/18 08:12 Dose: 3 units Insulin Human Lispro (Humalog Low) 0 units SC ACHS [facility]; Protocol Last Admin: 03/04/18 07:50 Dose: Not Given Ketorolac Tromethamine (Toradol) 30 mg IVP Q6H PRN PRN Reason: Pain, moderate (4-7) Last Admin: 03/04/18 05:18 Dose: 30 mg Lorazepam (Ativan) 0.5 mg PO TID PRN; Protocol PRN Reason: Anxiety Last Admin: 03/04/18 05:23 Dose: 0.5 mg Metoclopramide HCl (Reglan) 5 mg PO Q6H PRN PRN Reason: Nausea/Vomiting Last Admin: 03/02/18 22:26 Dose: 5 mg Metoprolol Tartrate (Lopressor) 25 mg PO 0800,1800 [facility] Last Admin: 03/04/18 08:12 Dose: 25 mg Ondansetron HCl (Zofran Tab) 4 mg PO Q6H PRN PRN Reason: Nausea/Vomiting Last Admin: 03/03/18 09:53 Dose: 4 mg Pantoprazole Sodium (Protonix Ec Tab) 40 mg PO 0600 [facility] Last Admin: 03/04/18 05:18 Dose: 40 mg Venlafaxine HCl (Effexor) 75 mg PO DAILY [facility] Last Admin: 03/04/18 10:44 Dose: 75 mg - Labs Labs: 03/04/18 06:00 03/04/18 06:00 Attending/Attestation - Attestation I have personally seen and examined this patient.: Yes I have fully participated in the care of the patient.: Yes I have reviewed all pertinent clinical information, including history, physical exam and plan: Yes Notes (Text): 03/04/18 11:03 I have seen and examined patient with GI fellow. Seen ambulating in hallway, appears comfortable. Still reports ongoing mild left sided abdominal pain, though improved. Was able to eat oatmeal and juice this morning without associated nausea or vomiting. Review of vitals from today are normal. HTN DM - gastroparesis TIA Depression - Advance diet as tolerated - Anti-emetic and prokinetic therapy PRN - Maintain strict glycemic control - Patient planned for hospital discharge today, will provide patient with follow up physician information at [facility] for potential inclusion in refractory gastroparesis trials. Will sign off case, please reconsult as necessary, thank you.
[2018-03-04] MEDS: Insulin Lispro 1 UNITS/0.01 ML SC SCH ×2 (08:12→12:00)
--- NOTE | 2018-03-04 08:35 | PN ---
DATE: 03/03/2018 She had about 24 hours of abdominal pain, but she is on an increased meal, soft, maybe pureed diet that she is tolerating fairly well. No nausea or vomiting. Hoping to discharge her today after lunch. She will go home on her aspirin, Ativan, Catapres patch, Duragesic patch, Effexor, insulin, Levemir, Lopressor, Norvasc, Protonix, no Reglan and Zofran if needed. OBJECTIVE: VITAL SIGNS: She has a 98 temperature, 54 pulse, 126/70 blood pressure, 19 respiratory rate, 95% O2 sat on room air. HEENT: Head is atraumatic, normocephalic. GENERAL: She is alert. She is looking at me much better overall. She did smile. HEART: Regular rate. LUNGS: Decreased breath sounds, but clear. ABDOMEN: Soft. Positive bowel sounds. No guarding. No rebound. No CVA tenderness, but a little discomfort. EXTREMITIES: No edema. DATA: She had lab. She has a 6.8 white count, 9.7 hemoglobin, 29.3 hematocrit with 258 platelets. Sodium 132, potassium 3.6, BUN 22, creatinine 1.1, GFR is 51, sugar is 253. Calcium 7.9, total bili is 0.1, AST is 21, ALT 35, alkaline phosphatase 99, total protein is 5. We are going to try to get her out today and discharge her. I will see her on a house call hopefully next week. That is the plan. Hopefully, she will stay without nausea and vomiting. Josafat Dent DO [email or web address]
[2018-03-04 12:08] VITALS: BP 150/88; PULSE 60; RESP 18; TEMP 98.4
[2018-03-04 12:40] VITALS: O2SAT 92
[2018-03-04] MEDS ORDERED: Insulin Lispro 1 UNITS/0.01 ML SC SCH (12:55)
[2018-03-04] MEDS ORDERED: Insulin Detemir 100 units/ml Vial (Levemir) SC SCH (22:00)
--- NOTE | 2018-03-05 03:59 | PN ---
DATE: 03/04/2018 ENDOCRINOLOGY FOLLOWUP NOTE LOCATIONS: In room 262. SUBJECTIVE: This is a 57-year-old female with recent uncontrolled type 2 insulin-requiring diabetes presenting here with severe and diffuse abdominal pain with underlying diabetic gastroparesis and is now being followed closely for metabolic management. Her glycemic levels are fluctuating, but improved and the glucose values have ranged from 151 to 239 mg/dL. Her latest chemistry showed a BUN of 22, sodium 132, potassium 3.6, chloride 100, CO2 of 28, glucose 253 and creatinine 1.1. So at this time, we will modify her basal and bolus insulin regimen and increase the Humalog to 4 units subcu three times a day before meals to start today. We will also increase the basal insulin with Levemir to be given as 6 units subcu at bedtime daily to start tonight. We will titrate incrementally as indicated to optimize metabolic control. We will continue the low-dose correction scale using Humalog insulin as given. We will follow this. Tita Coe MD
== END 2018-03-04 14:05 | disposition home or self-care (01) | DRG 74 ==
LOC: ED 18:03 → ERH 22:01 → 2RNO 23:29 → OBSVTOIN 03-02 12:44
PROVIDERS: ADMIT Family Medicine; ATTEND Family Medicine
DX: E11.43 Type 2 diabetes mellitus with diabetic autonomic (poly)neuropathy (principal); K31.84 Gastroparesis; E11.51 Type 2 diabetes mellitus with diabetic peripheral angiopathy without gangrene; E11.319 Type 2 diabetes mellitus with unspecified diabetic retinopathy without macular edema; E11.42 Type 2 diabetes mellitus with diabetic polyneuropathy; J44.9 Chronic obstructive pulmonary disease, unspecified; I10 Essential (primary) hypertension; E78.00 Pure hypercholesterolemia, unspecified; K29.70 Gastritis, unspecified, without bleeding; E78.5 Hyperlipidemia, unspecified; F32.9 Major depressive disorder, single episode, unspecified; Z79.4 Long term (current) use of insulin; Z86.73 Personal history of transient ischemic attack (TIA), and cerebral infarction without residual deficits; Z89.421 Acquired absence of other right toe(s); Z79.82 Long term (current) use of aspirin

== ENCOUNTER 2018-03-10 10:49 | Emergency (ER) | payer BC ==
[2018-03-10 11:02] VITALS: RESP 18; TEMP 98.5; BMI 20.5
--- NOTE | 2018-03-10 11:44 | ED PDOC ---
Arrival/HPI - General Chief Complaint: High Blood Pressure Time Seen by Provider: 03/10/18 11:12 Historian: Patient - History of Present Illness Narrative History of Present Illness (Text): 03/10/18 11:25 57 year old female, well-known to the ER, with past medical history of CVA, labile HTN, HLD, right foot amputation secondary to DM, seizures, depression, anxiety and gastroparesis, referred to the Emergency Department by a visiting nurse for evaluation of elevated blood pressure today. Patient states she woke up with a frontal headache this morning, rated 6/10 in severity, and was informed by her visiting nurse an elevated systolic blood pressure of 200 and was subsequently referred to the Emergency room for evaluation. Patient denies any associated chest pain, shortness of breath, vision changes, neck pain or back pain. Patient informs 1 episode of diarrhea yesterday secondary to chronic abdominal pain. Patient informs compliance with her medications and good diet intake. Patient denies any other associated somatic complaints. Patient denies any fever, chills, nausea, vomiting, dizziness, numbness/tingling, weakness, dysuria, hematuria, vaginal bleeding or discharge or any other complaints. PMD: Dr. Dent Time/Duration: Prior to Arrival Symptom Onset: Gradual Symptom Course: Unchanged Quality: Aching Activities at Onset: Light Context: Home Past Medical History - Provider Review Nursing Documentation Reviewed: Yes - Past History Past History: No Previous - Infectious Disease Hx of Infectious Diseases: None - Tetanus Immunization Tetanus Immunization: Unknown - Reproductive Menopause: No - Cardiac Hx Hypertension: Yes - Pulmonary Hx Chronic Obstructive Pulmonary Disease (COPD): Yes - Neurological HX Cerebrovascular Accident: Yes - HEENT Hx HEENT Disorder: Yes Hx Cataracts: Yes (bilateral sx) - Renal Hx Renal Disorder: No - Endocrine/Metabolic Hx Diabetes Mellitus Type 2: Yes - Hematological/Oncological Hx Blood Disorders: Yes Hx Anemia: Yes (blood transfusion) - Integumentary Hx Dermatological Disorder: Yes Other/Comment: abcess - Musculoskeletal/Rheumatological Hx Falls: Yes (Frequent falls last fall 02/28/18) - Gastrointestinal Hx Gastrointestinal Disorders: Yes - Genitourinary/Gynecological Hx Genitourinary Disorders: No - Psychiatric Hx Psychophysiologic Disorder: Yes Hx Anxiety: Yes Hx Depression: Yes Hx Panic Disorder: Yes Hx Substance Use: No (patient denies) Other/Comment: panic disorder - Surgical History Other/Comment: toes amputated from right foot - Anesthesia Hx Anesthesia Reactions: No Hx Malignant Hyperthermia: No - Suicidal Assessment Feels Threatened In Home Enviroment: No Family/Social History - Physician Review Nursing Documentation Reviewed: Yes Family/Social History: No Known Family HX Smoking Status: Never Smoked Hx Alcohol Use: No (patient denies) Hx Substance Use: No (patient denies) Hx Substance Use Treatment: No Allergies/Home Meds Allergies/Adverse Reactions: Allergies Narcotic/Dilaudid/Morphine Adverse Reaction (Uncoded 02/11/18 21:35) SHORTNESS OF BREATH Home Medications: Home Meds Medication Instructions Recorded Confirmed Aspirin [Aspirin Chewable] 81 mg PO DAILY 07/31/17 03/01/18 Dicyclomine [Bentyl] 10 mg PO TID 07/31/17 03/01/18 Review of Systems - Physician Review All systems were reviewed & negative as marked: Yes - Review of Systems Constitutional: absent: Fevers Respiratory: absent: SOB, Cough Cardiovascular: absent: Chest Pain, PETERSON Gastrointestinal: Abdominal Pain, Diarrhea. absent: Nausea, Vomiting Musculoskeletal: absent: Back Pain, Neck Pain Neurological: Headache. absent: Dizziness Physical Exam Vital Signs Reviewed: Yes Vital Signs Temp Pulse Resp BP Pulse Ox 03/10/18 11:02 98.5 F 118 H 18 200/125 H 95 Temperature: Afebrile Blood Pressure: Hypertensive Pulse: Tachycardic Respiratory Rate: Normal Appearance: Positive for: Well-Appearing, Non-Toxic, Comfortable Pain Distress: None Mental Status: Positive for: Alert and Oriented X 3 - Systems Exam Head: Present: Atraumatic, Normocephalic Pupils: Present: PERRL Extroacular Muscles: Present: EOMI Conjunctiva: Present: Normal Mouth: Present: Moist Mucous Membranes Neck: Present: Normal Range of Motion, Meningeal Signs Respiratory/Chest: Present: Clear to Auscultation, Good Air Exchange. No: Respiratory Distress, Accessory Muscle Use Cardiovascular: Present: Normal S1, S2, Tachycardic. No: Murmurs Abdomen: Present: Tenderness (diffused mild tenderness). No: Distention, Peritoneal Signs Back: Present: Normal Inspection Upper Extremity: Present: Normal Inspection. No: Cyanosis, Edema Lower Extremity: Present: Other (Right mid foot amputation noted. ). No: Edema Neurological: Present: GCS=15, CN II-XII Intact, Speech Normal, Motor Func Grossly Intact, Normal Sensory Function Skin: Present: Warm, Dry, Normal Color. No: Rashes Psychiatric: Present: Alert, Oriented x 3, Normal Insight, Normal Concentration Medical Decision Making ED Course and Treatment: 03/10/18 11:48 Impression: 57 year old female presents to the Emergency Department for evaluation of elevated blood pressure. Differential Diagnosis included but are not limited to: Labile hypertension Plan: -- Clonidine -- Reassess and disposition Prior Visits: Notes and results from previous visits were reviewed. Progress Notes: 03/10/18 11:25 EKG: Ordered, reviewed, and independently interpreted the EKG. Rate :110 BPM Rhythm : Sinus Tachycardia Interpretation : Normal axis, normal interval, no ST elevation. Poor R wave progression. Non-specific T wave changes. 03/10/18 11:48 Dr. Dent at bedside evaluated patient. As per Dr. Dent, patient is well known to himself and to the Emergency room for similar complaints of labile hypertension and gastroparesis. Dr. Dent suggests administration of Clonidine and to discharge patient home with outpatient follow-up instructions after improvement of symptoms. 03/10/18 13:33 Upon reassessment, patient informs improved symptoms with no new medical complaints and is resting comfortably in bed. Patient's repeat blood pressure is 145/82 after .1 mg of Clonidine. Patient's blood sugar is 372. As per patient's daughter, patient has not taken her insulin today since she did not eat.Daughter states that she will make sure her mother takes her insulin at home after food intake. Patient is stable to be discharged home with follow-up instructions with PMD. Patient is aware and agrees with plan. - Scribe Statement The provider has reviewed the documentation as recorded by the Wilfredoibe Cliff Castellanos. All medical record entries made by the Wilfredoibaldo were at my direction and personally dictated by me. I have reviewed the chart and agree that the record accurately reflects my personal performance of the history, physical exam, medical decision making, and the department course for this patient. I have also personally directed, reviewed, and agree with the discharge instructions and disposition. Disposition/Present on Arrival - Present on Arrival Any Indicators Present on Arrival: No History of DVT/PE: No History of Uncontrolled Diabetes: Yes Urinary Catheter: No History of Decub. Ulcer: No History Surgical Site Infection Following: None - Disposition Have Diagnosis and Disposition been Completed?: Yes Diagnosis: Hypertension, Hyperglycemia, Diabetic gastroparesis Disposition: HOME/ ROUTINE Disposition Time: 13:32 Condition: IMPROVED Discharge Instructions (ExitCare): Hyperglycemia, Adult, High Blood Pressure (DC), Gastroparesis (Delayed Gastric Emptying) Additional Instructions: SHIRLEY EUBANKS, thank you for letting us take care of you today. Your provider was Perla Hubbard MD and you were treated for HYPERTENSION. The emergency medical care you received today was directed at your acute symptoms. If you were prescribed any medication, please fill it and take as directed. It may take several days for your symptoms to resolve. Return to the Emergency Department if your symptoms worsen, do not improve, or if you have any other problems. Please contact your doctor in 1 day for follow up. Bring any paperwork you were given at discharge with you along with any medications you are taking to your follow up visit. Our treatment cannot replace ongoing medical care by a primary care provider outside of the emergency department. Thank you for allowing the [facility] team to be part of your care today. Referrals: Josafat Dent DO [Family Provider] - Follow up with primary Forms: [employer] (Chadian)
[2018-03-10 13:19] VITALS: BP 145/82; PULSE 110
[2018-03-10 14:00] VITALS: O2SAT 95
--- NOTE | 2018-03-10 14:58 | CARD ---
APPROVED REPORT Date of service: 03/10/2018 EKG Measurement Heart [id number] <Conclusion> Sinus tachycardia Possible Anterior infarct, age undetermined Abnormal ECG
== END 2018-03-10 13:50 | disposition home or self-care (01) ==
LOC: ED 10:49
DX: I10 Essential (primary) hypertension (principal); E11.65 Type 2 diabetes mellitus with hyperglycemia; E11.43 Type 2 diabetes mellitus with diabetic autonomic (poly)neuropathy; K31.84 Gastroparesis; Z86.73 Personal history of transient ischemic attack (TIA), and cerebral infarction without residual deficits

== ENCOUNTER 2018-03-31 19:06 | Inpatient (IN) | payer MEDICARE, BC ==
[2018-03-31 19:15] VITALS: BMI 22.6
--- NOTE | 2018-03-31 19:40 | ED PDOC ---
Arrival/HPI - General Chief Complaint: Abdominal Pain Time Seen by Provider: 03/31/18 19:19 - History of Present Illness Narrative History of Present Illness (Text): 03/31/18 19:37 57 f with hx diabetes and gastroparesis presents to the ED with chief complaint of constant epigastric pain for the past week. Patient states the pain is persistent, localized, no relieving factors, no exacerbating factors, similair to prior experienced pains with the patient;s known gastroparesis. Patient reports intermittent vomiting however has "not eaten in one week". No diarrhea, denies chest pain, no dyspnea, no syncope, no diaphoresis, no lightheadedness. Past Medical History - Provider Review Nursing Documentation Reviewed: Yes - Past History Past History: No Previous - Infectious Disease Hx of Infectious Diseases: None - Tetanus Immunization Tetanus Immunization: Unknown - Cardiac Hx Hypertension: Yes - Pulmonary Hx Chronic Obstructive Pulmonary Disease (COPD): Yes - Neurological HX Cerebrovascular Accident: Yes - HEENT Hx HEENT Disorder: Yes Hx Cataracts: Yes (bilateral sx) - Renal Hx Renal Disorder: No - Endocrine/Metabolic Hx Diabetes Mellitus Type 2: Yes - Hematological/Oncological Hx Blood Disorders: Yes Hx Anemia: Yes (blood transfusion) - Integumentary Hx Dermatological Disorder: Yes Other/Comment: abcess - Musculoskeletal/Rheumatological Hx Falls: Yes (Frequent falls last fall 02/28/18) - Gastrointestinal Hx Gastrointestinal Disorders: Yes - Genitourinary/Gynecological Hx Genitourinary Disorders: No - Psychiatric Hx Psychophysiologic Disorder: Yes Hx Anxiety: Yes Hx Depression: Yes Hx Panic Disorder: Yes Hx Substance Use: No (patient denies) Other/Comment: panic disorder - Surgical History Other/Comment: toes amputated from right foot - Anesthesia Hx Anesthesia: Yes Hx Anesthesia Reactions: No Hx Malignant Hyperthermia: No - Suicidal Assessment Feels Threatened In Home Enviroment: No Family/Social History - Physician Review Nursing Documentation Reviewed: Yes Family/Social History: No Known Family HX Smoking Status: Never Smoked Hx Alcohol Use: No (patient denies) Hx Substance Use: No (patient denies) Hx Substance Use Treatment: No Allergies/Home Meds Allergies/Adverse Reactions: Allergies Narcotic/Dilaudid/Morphine Adverse Reaction (Uncoded 02/11/18 21:35) SHORTNESS OF BREATH Home Medications: Home Meds Medication Instructions Recorded Confirmed RX: Unobtainable 04/01/18 04/01/18 Review of Systems - Physician Review All systems were reviewed & negative as marked: Yes - Review of Systems Cardiovascular: absent: Chest Pain, Edema, PETERSON, Syncope Gastrointestinal: Abdominal Pain, Nausea, Vomiting, Anorexia. absent: Diarrhea, Hematochezia, Hematemesis Physical Exam - Physical Exam Narrative Physical Exam (Text): 03/31/18 19:48 Gen: VS reviewed, alert, well developed, well nourished, nontoxic, mild to moderate distress second to pain Eye: EOMI, PERRL Neck: no JVD, supple, no adenopathy CV: regular rate, regular rhythm, no rubs,no murmur, S1, S2 Pulm: no distress, clear to auscultation, no wheeze, no rhonchi, breath sounds equal, no rales Abd: soft, mild to moderate tenderness in the epigastrum, no guarding, no marcelino ound, no rigidity Ext: no edema Skin: good color, no rash, no cyanosis Psych: responds appropriately to questions, normal affect Neuro: oriented x3, CN2-12 intact grossly, motor intact, sensation intact Vital Signs Reviewed: Yes Vital Signs Temp Pulse Resp BP Pulse Ox 03/31/18 19:14 98.6 F 134 H 18 175/106 H 96 Temperature: Afebrile Blood Pressure: Hypertensive Pulse: Tachycardic Respiratory Rate: Normal Appearance: Positive for: Well-Appearing, Non-Toxic, Comfortable Pain Distress: None Mental Status: Positive for: Alert and Oriented X 3 Medical Decision Making ED Course and Treatment: 03/31/18 19:40 Impression: 57 year old female presents with epigastric pain. Plan: -- Labs -- EKG -- Chest X-ray -- Zofran -- Tylenol -- Apresoline -- Urinalysis -- Reassess and disposition Prior Visits: Notes and results from previous visits were reviewed. Progress Notes: Patient seen for persistent epigastric pain similair experienced to past spells of gastroparesis. patient initial ekg consistent with ischemia which appears to be new when compared to old ekg. will initial cardiac workup. will review old CT's. abdominal exam is not consistent with acute abdomen and I do not feel emergent surgical consultation is warranted at this time. 03/31/18 22:00 Re-eval, patient still in pain but resting, will re-dose analgesic now 03/31/18 22:09 admit accepted by LATA Schwab covering with Dr. Dent. Patient to be admitted for intractable abdominal pain, hypokelamia, abnormal ekg consistent with ischemia, rule out ACS, consult to Dr. Farmer for cardiology. Analgesic options were nearly exhausted in the ED based on patient;s allergy profile and current medical illness. - RAD Interpretation Narrative RAD Interpretations (Text): 03/31/18 20:32 cxr my read: no focal infiltrate, no ptx, no cardiomegaly Radiology Orders: 03/31/18 19:23 CHEST PORTABLE [RAD] [employer] Associate: ED Physician - EKG Interpretation EKG Interpretation (Text): 03/31/18 19:42 1913: sinus tachycardia at 134 bpm, nml qrs, nml axis, artifact, lateral st depressions, new when compared to old ekg on 03.10.2018 Interpreted by ED Physician: Yes - Medication Orders Current Medication Orders: Hydralazine HCl (Apresoline) 10 mg IVP ONCE ONE Stop: 03/31/18 19:34 Ondansetron HCl (Zofran Inj) 4 mg IVP STAT STA Stop: 03/31/18 19:34 - Scribe Statement The provider has reviewed the documentation as recorded by the Naa Vega Provider Scribe Attestation: All medical record entries made by the Scribe were at my direction and personally dictated by me. I have reviewed the chart and agree that the record accurately reflects my personal performance of the history, physical exam, medical decision making, and the department course for this patient. I have also personally directed, reviewed, and agree with the discharge instructions and disposition. Disposition/Present on Arrival - Present on Arrival Any Indicators Present on Arrival: No History of DVT/PE: No History of Uncontrolled Diabetes: Yes Urinary Catheter: No History of Decub. Ulcer: No History Surgical Site Infection Following: None - Disposition Have Diagnosis and Disposition been Completed?: Yes Diagnosis: Intractable abdominal pain, Hypokalemia Disposition: HOSPITALIZED Disposition Time: 22:09 Patient Plan: Admission Condition: STABLE
[2018-03-31] MEDS ORDERED: Sodium Chloride 0.9% 1,000 ML IV STA (19:49)
[2018-03-31 20:46] LABS: BASO # 0.02 K/mm3 (0.0-2.0); BASO % 0.2 % (0.0-3.0); EOS # 0.1 (0.0-0.7); EOS % 1.4 % (1.5-5.0); GRAN # 7.11 (1.4-6.5); GRAN % 76.5 % (50.0-68.0); HEMOGLOBIN 13.1 g/dL (12.0-16.0); LYMPH # 1.5 (1.2-3.4); LYMPH % 15.6 % (22.0-35.0); MEAN CELL VOLUME 77.7 fl (80.0-105.0); MEAN CORPUSCULAR HGB CONC 33.5 g/dl (31.0-37.0); MEAN PLATELET VOLUME 9.9 fl (7.0-11.0); MONO # 0.6 (0.1-0.6); MONO % 6.3 % (1.0-6.0); RBC 5.03 10^6/uL (3.5-6.1); RED CELL DISTRIBUTION WIDTH 13.2 % (11.5-14.5); WHITE BLOOD COUNT 9.3 10^3/uL (4.5-11.0)
[2018-03-31 20:52] LABS: INR 0.94; PARTIAL THROMBOPLASTIN TIME 26.3 Seconds (25.1-36.5); PROTHROMBIN TIME 10.7 SECONDS (9.4-12.5)
[2018-03-31 21:06] LABS: TROPONIN I 0.03 ng/mL
[2018-03-31 21:32] LABS: ALB/GLOB RATIO 1.1 (1.1-1.8); ALBUMIN 2.9 g/dL (3.0-4.8); ALT/SGPT 32 U/L (7-56); AST/SGOT 34 U/L (14-36); BLOOD UREA NITROGEN 20 mg/dL (7-21); CALCIUM 8.1 mg/dL (8.4-10.5); GFR NON-AFRICAN AMERICAN > 60; HDL CHOLESTEROL 53 mg/dL (29-60); LIPASE 42 U/L (23-300)
[2018-03-31 22:22] LABS: LDL CHOLESTEROL 137 mg/dL (0-129)
--- NOTE | 2018-04-01 07:32 | RAD ---
Date of service: 03/31/2018 HISTORY: chest pain COMPARISON: 02/10/2018 FINDINGS: LUNGS: No active pulmonary disease. PLEURA: No significant pleural effusion identified, no pneumothorax apparent. CARDIOVASCULAR: No aortic atherosclerotic calcification present. Normal cardiac size. No pulmonary vascular congestion. OSSEOUS STRUCTURES: No significant abnormalities. VISUALIZED UPPER ABDOMEN: Normal. OTHER FINDINGS: None. IMPRESSION: No active disease.
[2018-04-01] MEDS: Sodium Chloride 0.45% 1,000 ML IV SCH (09:12)
[2018-04-01 09:26] LABS: HEMOGLOBIN 12.5 g/dL (12.0-16.0); MEAN CELL VOLUME 77.7 fl (80.0-105.0); MEAN CORPUSCULAR HEMOGLOBIN 25.8 pg (25.0-35.0); MEAN CORPUSCULAR HGB CONC 33.2 g/dl (31.0-37.0); MEAN PLATELET VOLUME 9.2 fl (7.0-11.0); RBC 4.84 10^6/uL (3.5-6.1); RED CELL DISTRIBUTION WIDTH 13.3 % (11.5-14.5); WHITE BLOOD COUNT 7.5 10^3/uL (4.5-11.0)
--- NOTE | 2018-04-01 09:38 | CP.PCM.CON ---
<GeronimoikeRoselynrobert - Last Filed: 04/01/18 11:44> History of Present Illness - History of Present Illness History of Present Illness: PGY-4 GI Fellow Consult Note Pt is a 57 yo WF with DM 1 (A1c >10, c/b gastroparesis, retinopathy, neuropathy and vasculopathy) HTN, prior TIA, depression/anxiety presenting with abdominal pain. She states over the last 3 days she began to experience sharp non- radiating, epipgastric+LUQ abdominal pain. Pain is associated with nausea and multiple episodes of NB/NB emesis. As a result of her symptoms, she has decreased appetite stating hasn't eaten in a week.. She states that she has been moving her bowels normally without dark tarry stools or any BRBPR, last BM this AM was brown. She reports compliance with her medications, but has not followed up with Endocrinology nor [facility] for alternative treatment options. 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 (~20 years ago), cholecystectomy, appendectomy, hysterectomy, , hernia repair, right foot transmetatarsal amputation, I&D right thigh abscess Endo: 11/15 - EGD - bile gastritis, gastric polyps FamHx: Mother - gastric cancer; Sister - Crohn's disease SocHx: Denies tobacco, EtOH or illicit drug use All: Narcotics Past Patient History - Infectious Disease Hx of Infectious Diseases: None - Tetanus Immunizations Tetanus Immunization: Unknown - Past Social History Smoking Status: Never Smoked - CARDIAC Hx Cardiac Disorders: Yes Hx Hypercholesterolemia: Yes Hx Hypertension: Yes - PULMONARY Hx Respiratory Disorders: Yes Hx Chronic Obstructive Pulmonary Disease (COPD): Yes - NEUROLOGICAL Hx Neurological Disorder: Yes HX Cerebrovascular Accident: Yes - HEENT Hx HEENT Problems: Yes Hx Cataracts: Yes (bilateral sx) - RENAL Hx Chronic Kidney Disease: No - ENDOCRINE/METABOLIC Hx Endocrine Disorders: Yes Hx Diabetes Mellitus Type 2: Yes - HEMATOLOGICAL/ONCOLOGICAL Hx Blood Disorders: Yes Hx Anemia: Yes (blood transfusion) - INTEGUMENTARY Hx Dermatological Problems: No - MUSCULOSKELETAL/RHEUMATOLOGICAL Hx Musculoskeletal Disorders: Yes Hx Falls: Yes Hx Unsteady Gait: Yes - GASTROINTESTINAL Hx Gastrointestinal Disorders: Yes Hx Gastroesophageal Reflux: Yes Other/Comment: Irritable bowel syndrome. Gastroperesis - GENITOURINARY/GYNECOLOGICAL Hx Genitourinary Disorders: No - PSYCHIATRIC Hx Psychophysiologic Disorder: Yes Hx Anxiety: Yes Hx Depression: Yes Hx Panic Symptoms: Yes Hx Substance Use: No - SURGICAL HISTORY Hx Surgeries: Yes (Right foot toes amputation) Hx Hysterectomy: Yes - ANESTHESIA Hx Anesthesia: Yes Hx Anesthesia Reactions: No Hx Malignant Hyperthermia: No Meds Allergies/Adverse Reactions: Allergies Allergy/AdvReac Type Severity Reaction Status Date / Time Narcotic/Dilaudid/Morphine AdvReac SHORTNESS Uncoded 02/11/18 21:35 OF BREATH - Medications Medications: Current Medications Sodium Chloride (Sodium Chloride 0.45%) 1,000 mls @ 80 mls/hr IV .[id number] [facility] Last Admin: 04/01/18 09:12 Dose: 80 mls/hr Potassium Chloride (Potassium Chloride 10 Meq/100 Ml) 10 meq in 100 mls @ 50 mls/hr IVPB Q2H [facility] Stop: 04/01/18 12:59 Insulin Human Regular (Humulin R Med) 0 units [facility]; Protocol Ketorolac Tromethamine (Toradol) 30 mg IVP Q6H PRN PRN Reason: Pain, moderate (4-7) Lorazepam (Ativan) 0.5 mg IVP Q6H PRN; Protocol PRN Reason: Anxiety Metoclopramide HCl (Reglan) 10 mg IVP ACHS [facility] Ondansetron HCl (Zofran Inj) 4 mg IVP Q4H PRN PRN Reason: Nausea/Vomiting Pantoprazole Sodium (Protonix Inj) 40 mg IVP Q12 [facility] Last Admin: 04/01/18 09:11 Dose: 40 mg Physical Exam - Constitutional Appears: In Acute Distress, Unkempt, Chronically Ill - Head Exam Head Exam: ATRAUMATIC, NORMAL INSPECTION - Eye Exam Eye Exam: EOMI. absent: Conjunctival injection, Scleral icterus - ENT Exam ENT Exam: Mucous Membranes Dry. absent: Mucous Membranes Moist - Respiratory Exam Respiratory Exam: Clear to Auscultation Bilateral, NORMAL BREATHING PATTERN. absent: Accessory Muscle Use, Respiratory Distress - Cardiovascular Exam Cardiovascular Exam: REGULAR RHYTHM, RRR - GI/Abdominal Exam GI & Abdominal Exam: Normal Bowel Sounds, Soft, Tenderness. absent: Bruit, Diminished Bowel Sounds, Distended, Firm, Guarding, Hernia, Mass, Organomegaly, Pulsatile Mass, Rebound, Rigid - Rectal Exam Rectal Exam: Deferred - Extremities Exam Extremities exam: Positive for: normal inspection. Negative for: pedal edema - Neurological Exam Neurological exam: CN II-XII Intact Additional comments: tired, awoke to voice - Psychiatric Exam Psychiatric exam: Flat Affect, Normal Mood - Skin Skin Exam: Normal Color, Warm Results - Vital Signs Recent Vital Signs: Last Vital Signs Temp 98.9 F 04/01/18 05:53 Pulse 85 04/01/18 08:00 Resp 19 04/01/18 05:53 BP 116/69 04/01/18 05:53 Pulse Ox 98 04/01/18 08:00 - Labs Result Diagrams: 04/01/18 09:00 04/01/18 09:00 Labs: Laboratory Results - last 24 hr 03/31/18 03/31/18 03/31/18 20:15 20:15 20:15 WBC 9.3 RBC 5.03 Hgb 13.1 D Hct 39.1 MCV 77.7 L MCH 26.0 MCHC 33.5 RDW 13.2 Plt Count 328 MPV 9.9 Gran % 76.5 H Lymph % (Auto) 15.6 L Otero % (Auto) 6.3 H Eos % (Auto) 1.4 L Baso % (Auto) 0.2 Gran # 7.11 H Lymph # (Auto) 1.5 Otero # (Auto) 0.6 Eos # (Auto) 0.1 Baso # (Auto) 0.02 PT 10.7 INR 0.94 APTT 26.3 Sodium 132 Potassium 2.9 L* Chloride 89 L Carbon Dioxide 35 H Anion Gap 10 BUN 20 Creatinine 0.8 Est GFR ( Amer) > 60 Est GFR (Non-Af Amer) > 60 POC Glucose (mg/dL) Random Glucose 243 H Calcium 8.1 L Magnesium Total Bilirubin 0.5 AST 34 ALT 32 Alkaline Phosphatase 175 H D Troponin I 0.03 D Total Protein 5.6 L Albumin 2.9 L Globulin 2.7 Albumin/Globulin Ratio 1.1 Triglycerides 205 H Cholesterol 222 H LDL Cholesterol Direct 137 H HDL Cholesterol 53 Lipase 42 TSH 3rd Generation 03/31/18 03/31/18 04/01/18 20:15 21:00 07:34 WBC RBC Hgb Hct MCV MCH MCHC RDW Plt Count MPV Gran % Lymph % (Auto) Otero % (Auto) Eos % (Auto) Baso % (Auto) Gran # Lymph # (Auto) Otero # (Auto) Eos # (Auto) Baso # (Auto) PT INR APTT Sodium Potassium Chloride Carbon Dioxide Anion Gap BUN Creatinine Est GFR ( Amer) Est GFR (Non-Af Amer) POC Glucose (mg/dL) 181 H Random Glucose Calcium Magnesium 1.9 Total Bilirubin AST ALT Alkaline Phosphatase Troponin I Total Protein Albumin Globulin Albumin/Globulin Ratio Triglycerides Cholesterol LDL Cholesterol Direct HDL Cholesterol Lipase TSH 3rd Generation 0.41 L Assessment & Plan - Assessment and Plan (Free Text) Assessment: 56 yo female with PMHx significant for HTN, uncontrolled type 1 DM (a1c 10.4) complicated by retinopathy, polyneuropathy, vasculopathy, gastroparesis, prior TIA, depression/anxiety who presented to the hospital with abdominal pain, nausea and vomiting. -Diabetic gastroparesis -Uncontrolled DM with complications Plan: -Strict glycemic control both inpatient and outpatient -NPO for now -Avoid narcotics as able -Cont Ondansetron, if getting multiple doses would monitor QT from time to time -Cautious use of metoclopramide if needed Thank you for the consult, will follow along. Please call if questions. Pt seen and examined with Dr. Zambrano. Please see attestation for further recs /changes. <Dagoberto Zambrano - Last Filed: 04/01/18 12:29> Meds - Medications Medications: Current Medications Amlodipine Besylate (Norvasc) 10 mg PO DAILY [facility] Clonidine HCl (Catapres) 0.1 mg PO BID [facility] Fentanyl (Duragesic) 1 patch TD Q72H [facility] Last Admin: 04/01/18 11:53 Dose: 1 patch Sodium Chloride (Sodium Chloride 0.45%) 1,000 mls @ 80 mls/hr IV .[id number] [facility] Last Admin: 04/01/18 09:12 Dose: 80 mls/hr Potassium Chloride (Potassium Chloride 10 Meq/100 Ml) 10 meq in 100 mls @ 50 mls/hr IVPB Q2H [facility] Stop: 04/01/18 12:59 Last Admin: 04/01/18 11:54 Dose: 50 mls/hr Insulin Human Regular (Humulin R Med) 0 units SC ACHS [facility]; Protocol Ketorolac Tromethamine (Toradol) 30 mg IVP Q6H PRN PRN Reason: Pain, moderate (4-7) Last Admin: 04/01/18 09:59 Dose: 30 mg Lorazepam (Ativan) 0.5 mg IVP Q6H PRN; Protocol PRN Reason: Anxiety Last Admin: 04/01/18 12:07 Dose: 0.5 mg Metoclopramide HCl (Reglan) 10 mg IVP ACHS [facility] Last Admin: 04/01/18 11:54 Dose: 10 mg Ondansetron HCl (Zofran Inj) 4 mg IVP Q4H PRN PRN Reason: Nausea/Vomiting Last Admin: 04/01/18 09:59 Dose: 4 mg Pantoprazole Sodium (Protonix Inj) 40 mg IVP Q12 [facility] Last Admin: 04/01/18 09:11 Dose: 40 mg Results - Vital Signs Recent Vital Signs: Last Vital Signs Temp 98.9 F 04/01/18 05:53 Pulse 85 04/01/18 09:00 Resp 18 04/01/18 09:00 BP 142/96 H 04/01/18 09:00 Pulse Ox 98 04/01/18 09:00 - Labs Result Diagrams: 04/01/18 09:00 04/01/18 09:00 Labs: Laboratory Results - last 24 hr 03/31/18 03/31/18 03/31/18 20:15 20:15 20:15 WBC 9.3 RBC 5.03 Hgb 13.1 D Hct 39.1 MCV 77.7 L MCH 26.0 MCHC 33.5 RDW 13.2 Plt Count 328 MPV 9.9 Gran % 76.5 H Lymph % (Auto) 15.6 L Otero % (Auto) 6.3 H Eos % (Auto) 1.4 L Baso % (Auto) 0.2 Gran # 7.11 H Lymph # (Auto) 1.5 Otero # (Auto) 0.6 Eos # (Auto) 0.1 Baso # (Auto) 0.02 PT 10.7 INR 0.94 APTT 26.3 Sodium 132 Potassium 2.9 L* Chloride 89 L Carbon Dioxide 35 H Anion Gap 10 BUN 20 Creatinine 0.8 Est GFR ( Amer) > 60 Est GFR (Non-Af Amer) > 60 POC Glucose (mg/dL) Random Glucose 243 H Calcium 8.1 L Magnesium Total Bilirubin 0.5 AST 34 ALT 32 Alkaline Phosphatase 175 H D Troponin I 0.03 D Total Protein 5.6 L Albumin 2.9 L Globulin 2.7 Albumin/Globulin Ratio 1.1 Triglycerides 205 H Cholesterol 222 H LDL Cholesterol Direct 137 H HDL Cholesterol 53 Lipase 42 TSH 3rd Generation 03/31/18 03/31/18 04/01/18 20:15 21:00 07:34 WBC RBC Hgb Hct MCV MCH MCHC RDW Plt Count MPV Gran % Lymph % (Auto) Otero % (Auto) Eos % (Auto) Baso % (Auto) Gran # Lymph # (Auto) Otero # (Auto) Eos # (Auto) Baso # (Auto) PT INR APTT Sodium Potassium Chloride Carbon Dioxide Anion Gap BUN Creatinine Est GFR ( Amer) Est GFR (Non-Af Amer) POC Glucose (mg/dL) 181 H Random Glucose Calcium Magnesium 1.9 Total Bilirubin AST ALT Alkaline Phosphatase Troponin I Total Protein Albumin Globulin Albumin/Globulin Ratio Triglycerides Cholesterol LDL Cholesterol Direct HDL Cholesterol Lipase TSH 3rd Generation 0.41 L 04/01/18 04/01/18 09:00 09:00 WBC 7.5 RBC 4.84 Hgb 12.5 Hct 37.6 MCV 77.7 L MCH 25.8 MCHC 33.2 RDW 13.3 Plt Count 277 MPV 9.2 Gran % Lymph % (Auto) Otero % (Auto) Eos % (Auto) Baso % (Auto) Gran # Lymph # (Auto) Otero # (Auto) Eos # (Auto) Baso # (Auto) PT INR APTT Sodium 134 Potassium 3.0 L Chloride 96 L Carbon Dioxide 33 Anion Gap 8 L BUN 19 Creatinine 0.8 Est GFR ( Amer) > 60 Est GFR (Non-Af Amer) > 60 POC Glucose (mg/dL) Random Glucose 155 H Calcium 7.6 L Magnesium Total Bilirubin 0.4 AST 23 ALT 30 Alkaline Phosphatase 139 H D Troponin I 0.03 Total Protein 5.0 L Albumin 2.6 L Globulin 2.4 Albumin/Globulin Ratio 1.1 Triglycerides Cholesterol LDL Cholesterol Direct HDL Cholesterol Lipase TSH 3rd Generation Attending/Attestation - Attestation I have personally seen and examined this patient.: Yes I have fully participated in the care of the patient.: Yes I have reviewed all pertinent clinical information: Yes Notes (Text): 04/01/18 12:25 I have seen and examined patient with GI fellow. Agree with above documentation with the following additions. In brief, this is a 57 year old female with history of uncontrolled DM, gastroparesis, HTN, anxiety, who presents to hospital with complaint of progressively worse abdominal pain for the past 3 days. She has had numerous recurrent hospital admissions for the same complaint attributed to refractory gastroparesis. She describes a sharp, 8/10 intensity epigastric pain that radiates to back and is worse after meal consumption. She also reports associated nausea and non-bloody emesis. She has not had an opportunity to follow up with endocrinology as an outpatient. HTN DM - uncontrolled Abdominal pain - gastroparesis Anxiety - NPO - Continue with IVF hydration, supportive care - Anti-emetic therapy PRN - Pro-motility therapy as per medical team - Maintain strict glycemic control - Following hospital discharge, patient should be referred to [facility] for treatment of medication refractory gastroparesis
[2018-04-01 09:41] LABS: ALB/GLOB RATIO 1.1 (1.1-1.8); ALBUMIN 2.6 g/dL (3.0-4.8); ALT/SGPT 30 U/L (7-56); AST/SGOT 23 U/L (14-36); BLOOD UREA NITROGEN 19 mg/dL (7-21); CALCIUM 7.6 mg/dL (8.4-10.5); GFR NON-AFRICAN AMERICAN > 60
[2018-04-01 09:42] LABS: TROPONIN I 0.03 ng/mL
--- NOTE | 2018-04-01 10:38 | HP ---
HISTORY OF PRESENT ILLNESS: She came back to the hospital, again she had been here multiple times. 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 She has been back and forth to the hospital a few times. In the past 2-3 months, she has severe gastroparesis, diabetes. She has epigastric and abdominal pain. She is here again with intractable nausea, vomiting, abdominal pain and gastroparesis. PAST MEDICAL HISTORY: She has a past medical history of hypertension, COPD, CVA, bilateral cataract surgery, diabetes, blood transfusions for anemia in the past, had abscesses in the past, frequent falls, has anxiety, depression, panic attacks, panic disorder. She has amputated toes on the right foot. REVIEW OF SYSTEMS: No acute vision or hearing changes. No sore throat. No chest pain or syncope or dyspnea on exertion. No shortness of breath or cough. There is abdominal pain with nausea, vomiting. There is anorexia. She is in her bed with abdominal pain. I will give her some medications. EXTREMITIES: No edema. SKIN: Intact. PHYSICAL EXAMINATION: VITAL SIGNS: She has vital signs of 98.6 temperature, 134 pulse, 18 respiratory rate, 175/106 blood pressure, 96% O2 sat. HEENT: Head is atraumatic and normocephalic. Extraocular muscles are intact. Pupils are equal and reactive to light. Throat is moist. NECK: Supple. HEART: Regular rate. LUNGS: Decreased breath sounds but clear. ABDOMEN: Tangible allover. No bowel sounds. Mild guarding. No rebound. EXTREMITIES: No edema. She has left foot amputation of the toes. NEUROLOGIC: She is not well appearing. She is toxic. She is uncomfortable. She is upset. She is alert and oriented x3, miserable, very anxious. LABORATORY DATA: She had tests done. She has a 9.3 white count, 13.1 hemoglobin, 39.1 hematocrit with 328 platelets. INR is 0.94. She has 132 sodium, potassium is 2.9, I will replace the potassium. In the ER, BUN 20, creatinine 0.8, GFR is greater than 60, sugar is 243 and 181, calcium is 8.1, magnesium 1.9, total bili is 0.5, AST is 30, ALT is 32, alk phos is 175. Troponin I is 0.03, I have ordered two more. Total protein is 5.6, albumin is 2.9, globulin 2.7, triglycerides are 205, cholesterol is 222, LDL is 137. TSH is 0.41. I will repeat her TSH. PLAN: She will have consults with GI, Cardio and Endocrinology. She will have Reglan, Protonix, Zofran, IV fluids, IV Ativan, Toradol. She will be n.p.o. Check her labs tomorrow and hopefully she will slowly improve. Josafat Dent DO [email or web address]
[2018-04-01] MEDS ORDERED: Insulin Reg-MEDIUM-Coverage SC SCH (11:30)
--- NOTE | 2018-04-01 13:00 | CARD ---
APPROVED REPORT Date of service: 03/31/2018 EKG Measurement Heart [id number] <Conclusion> Sinus tachycardia ST & T wave abnormality, consider lateral ischemia Abnormal ECG
[2018-04-01] MEDS ORDERED: Metoprolol 1 mg/ml Inj IVP ONE (14:40)
[2018-04-01 14:59] LABS: TROPONIN I 0.03 ng/mL
[2018-04-01] MEDS: Insulin Lispro (humaLOG) LOW Coverage SC SCH ×2 (17:20→21:50)
[2018-04-01] MEDS: Nitroglycerin 2% Ointment Foilpak UD TOP SCH (17:33)
[2018-04-01 17:59] LABS: BARBITURATES, UR NEGATIVE (NEGATIVE)
[2018-04-01 18:05] LABS: BENZODIAZEPINES, UR POSITIVE (NEGATIVE); OPIATES, UR NEGATIVE (NEGATIVE); PHENCYCLIDINE, UR NEGATIVE (NEGATIVE)
[2018-04-01] MEDS: Insulin Detemir 100 units/ml Vial (Levemir) SC SCH (21:57)
--- NOTE | 2018-04-01 22:11 | CON ---
DATE OF CONSULTATION: 04/01/2018 REASON FOR CONSULTATION: Abnormal EKG. HISTORY OF PRESENT ILLNESS: The patient is a 57-year-old female who has a history of diabetes mellitus and gastroparesis, presents because of epigastric discomfort, nausea, and vomiting. The patient denies retrosternal chest pain and is unaware of any prior history of coronary artery disease. The patient denies any associated diaphoresis. The patient has a history of allergy to narcotics and is requesting IV Tylenol. PAST MEDICAL HISTORY: Hypertension, COPD, CVA, bilateral cataract surgery, anemia, history of depression and anxiety attacks, and history of toe amputation on right foot. SOCIAL HISTORY: Nonsmoker, nondrinker. CURRENT MEDICATIONS: Hydralazine 10 mg intravenously every 6 hours p.r.n., Ativan 0.5 mg every 6 hours p.r.n., clonidine 0.1 mg twice a day, Duragesic patch one patch every 72 hours, Norvasc 10 mg orally once a day, which is to be on hold because the patient is n.p.o., Protonix 40 mg intravenously once a day, Reglan 10 mg intravenously twice a day, half-normal saline 80 mL an hour, Toradol 30 mg IV push every 6 hours p.r.n., and Zofran 4 mg intravenously every 4 hours p.r.n. for nausea and vomiting. The patient did receive intravenous potassium replacement infusion. PHYSICAL EXAMINATION: GENERAL: The patient is a middle-aged female who is very uncomfortable because of her epigastric discomfort and nauseated. VITAL SIGNS: Blood pressure 184/110, temperature 98.4, respirations 22, and heart rate 98. HEENT: Head normocephalic. CHEST: Clear. HEART: S1 and S2 regular. ABDOMEN: Exquisite epigastric tenderness. EXTREMITIES: No edema. LABORATORY DATA: CBC: Hemoglobin and hematocrit 12.5 and 37.6. White count and platelet count are within normal limits. PT/INR and PTT are within normal limits. Today's SMA-7: Sodium 134, potassium 3.0, chloride 96, CO2 of 33, glucose 155, BUN 19, and creatinine 0.8. Two sets of troponins were 0.03. TSH level is 0.41. Triglycerides 105, total cholesterol 222, LDL cholesterol 137, and lipase is within normal limit at 42. Echocardiographic study performed in 01/2018 revealed normal left ventricular size with mild concentric LVH, normal systolic function and [id number] aortic insufficiency with mild mitral insufficiency and mild tricuspid insufficiency. EKG revealed sinus rhythm, prolonged QT interval, and inferolateral ischemic ST-T wave changes, which have been noticed on prior EKGs. Chest x-ray was reviewed and revealed no active disease. Abdomen x-ray was also reviewed and no acute findings were noted. Head CT scan in 01/2018 was unremarkable, noncontrast study. Abdomen and pelvis CT scan performed in 11/2017, no acute intra-abdominal finding. Patchy infiltrates seen in both lung bases. Brain MRI performed in 10/2017, no acute interval change, trace chronic microangiopathy and diffuse cerebral atrophy. ASSESSMENT: 1. Epigastric discomfort and history of gastroparesis. 2. Ischemic inferolateral EKG changes. 3. Hypokalemia and prolonged QT interval. 4. Uncontrolled hypertension. 5. History of depression. RECOMMENDATIONS: Continue IV hydralazine 10 mg every 6 hours p.r.n. I will administer one dose of Lopressor 5 mg intravenously now and start nitro paste at 1 inch every 6 hours. Oral medications are being on hold because of the patient's abdominal epigastric discomfort, nausea, and vomiting. Continue IV Protonix, IV Reglan, and p.r.n. IV Toradol. The patient was evaluated by the Gastroenterology team earlier. I did order a stat D-dimer as well as urine drug screen. The patient is not a suitable candidate for aspirin therapy at this time or oral statin because of her continued abdominal discomfort, nausea, and vomiting. I will start subcutaneous heparin at 5000 units every 12 hours. Harpreet Espinoza MD
--- NOTE | 2018-04-01 23:54 | CON ---
DATE: ENDOCRINOLOGY CONSULTATION LOCATION: In room 272. HISTORY OF PRESENT ILLNESS: This is a 57-year-old female with known history of type 1 insulin-dependent diabetes, presenting here with recurrent severe upper abdominal pain with intractable nausea, dyspepsia and vomiting with underlying diabetic gastroparesis and is now being referred for diabetic evaluation and management. She is currently n.p.o. at this time as noted. PAST MEDICAL HISTORY: As mentioned above, history of recurrent admissions for exacerbations of diabetic gastroparesis with multiple GI workup as noted thereof. She also had a prior right hemicolectomy with ileocolic anastomosis some years ago for a benign colonic tumor, history of a prior appendectomy and cholecystectomy also for underlying cholelithiasis, history of type 1 insulin-dependent diabetes with poor and suboptimal metabolic control and A1c above 9 to 10%, history of diabetic retinopathy, polyneuropathy and peripheral arterial vasculopathy with a previous right transmetatarsal amputation as noted and history of previous TIA with no residual weakness at this time. FAMILY HISTORY: Positive for diabetes and hypertension. SOCIAL HISTORY: The patient has a supportive family. No known substance use. REVIEW OF SYSTEMS: As mentioned above. Admits to generalized body weakness with episodic bouts of dizziness and lightheadedness, worse on the day of admission. Also admits to bifrontal headaches with occasional visual blurring. No chest pains or palpitations, but admits to episodic shortness of breath especially on exertion. Her oral intake has been variable and suboptimal with marked anorexia and supervening nausea, dyspepsia, and intractable vomiting episodes with concomitant upper abdominal pain as noted. Also admits to marked polyuria, nocturia and polydipsia. PHYSICAL EXAMINATION: GENERAL: This is an average built female in no apparent distress. VITAL SIGNS: Blood pressure of 140/80, pulse of 70 beats per minute and regular, temperature 98, respirations 20, height is 5 feet 1 inches, and weight is 120 pounds. HEENT: Head normocephalic. Eyes anicteric with pink conjunctivae. Funduscopy not possible at this time. Ears, nose and throat otherwise normal. NECK: Supple. Thyroid gland is normal in size. No carotid bruits or cervical adenopathy. CARDIOPULMONARY: Some adynamic precordium. S1 and S2 is rapid and regular. LUNGS: Clear to auscultation. ABDOMEN: Flat and soft with positive bowel sounds. EXTREMITIES: No peripheral edema. Pulses are +2 bilaterally. LABORATORY DATA: Her chemistries showed a BUN of 19, sodium 134, potassium 3, chloride 96, CO2 of 33, glucose 155, and creatinine 0.8. Her LDH level is 1221 and a TSH is 0.41. Triglycerides are 205 and cholesterol is 222. ASSESSMENT: This is a 57-year-old female with uncontrolled and decompensated type 1 insulin-dependent diabetes with extremes of glycemic fluctuations and suboptimal metabolic control in general presenting here with acute exacerbation of diabetic gastroparesis as mentioned above. She also has diabetic microvascular complications of retinopathy and polyneuropathy with macrovascular complications of coronary artery disease and peripheral arterial disease and vasculopathy with a previous right transmetatarsal amputation as noted. PLAN OF MANAGEMENT: We will modify her coverage scale as the patient is currently n.p.o. to obviate hypoglycemia and detailed orders have been given for Humalog coverage scale as ordered. We will also add a basal dose of Levemir at 4 units subcutaneously at bedtime daily to start tonight. As her oral intake is advanced, then we can switch her over to a more physiologic basal and bolus insulin drug combination as indicated. We will obtain serial chemistries and supplement accordingly as needed. We will continue this IV hydration and potassium supplementation as given. We will obtain repeat thyroid studies as the initial TSH is 0.41 possibly indicative of the so-called acute sick euthyroid syndrome. We will follow and advise accordingly. Tita Coe MD
[2018-04-02] MEDS: Nitroglycerin 2% Ointment Foilpak UD TOP SCH ×4 (00:22→17:33)
[2018-04-02] MEDS: Sodium Chloride 0.45% 1,000 ML IV SCH ×2 (04:25→10:02)
[2018-04-02 07:15] LABS: HEMOGLOBIN 12.5 g/dL (12.0-16.0); MEAN CELL VOLUME 78.5 fl (80.0-105.0); MEAN CORPUSCULAR HEMOGLOBIN 25.6 pg (25.0-35.0); MEAN CORPUSCULAR HGB CONC 32.6 g/dl (31.0-37.0); MEAN PLATELET VOLUME 9.5 fl (7.0-11.0); RBC 4.89 10^6/uL (3.5-6.1); RED CELL DISTRIBUTION WIDTH 13.4 % (11.5-14.5); WHITE BLOOD COUNT 7.3 10^3/uL (4.5-11.0)
[2018-04-02 07:18] LABS: ALBUMIN 2.8 g/dL (3.0-4.8); ALT/SGPT 32 U/L (7-56); AST/SGOT 29 U/L (14-36); BLOOD UREA NITROGEN 21 mg/dL (7-21); CALCIUM 7.8 mg/dL (8.4-10.5); GFR NON-AFRICAN AMERICAN > 60; HDL CHOLESTEROL 56 mg/dL (29-60)
[2018-04-02 07:29] LABS: LDL CHOLESTEROL 116 mg/dL (0-129)
[2018-04-02 07:40] LABS: T4 10.1 ug/dL (5.5-11.0)
[2018-04-02] MEDS: Insulin Lispro (humaLOG) LOW Coverage SC SCH ×4 (08:08→23:38)
--- NOTE | 2018-04-02 08:09 | CARD ---
APPROVED REPORT Date of service: 04/01/2018 EKG Measurement Heart [id number] <Conclusion> Normal sinus rhythm with sinus arrhythmia Possible Left atrial enlargement ST & T wave abnormality, consider inferolateral ischemia Prolonged QT Abnormal ECG
--- NOTE | 2018-04-02 11:11 | PN ---
DATE: 04/02/2018 SUBJECTIVE: I saw her resting comfortably in bed this morning. She slept fairly well last night she told me. She has also had a little bit of an appetite this morning. She came in with aggressive abdominal pain, nausea, vomiting, intractable. She has done this before from gastroparesis and now she is telling me that she feels a little bit hungry. I wanted to give her some clear fluids this afternoon and if she does well, we will increase it to a diet for lunch and I am hoping if she does well tonight, we have a chance of discharging her tomorrow if things go well. She is on Apresoline, Ativan, Duragesic patch, heparin, insulin, Levemir, Nitro-Bid, Norvasc, potassium, Protonix, Reglan, IV fluids, Toradol and Zofran. PHYSICAL EXAMINATION: VITAL SIGNS: She has a 97.7 temp, 87 pulse, 151/89 blood pressure, 18 respiratory rate, 100% O2 sat on room air. HEENT: Head is atraumatic, normocephalic. She is more alert, smiling, comfortable. HEART: Regular rate. LUNGS: Decreased breath sounds but clear. ABDOMEN: Soft. Positive bowel sounds. Nontender, no guarding, no rebound. No CVA tenderness. EXTREMITIES: Have no edema, better than yesterday. LABORATORY DATA: White count 7.3, hemoglobin 12.5, hematocrit 38.4, platelets of 319. She has 133 sodium, potassium 3.3. She was low as 2.9, I am going to replace more potassium and get her above 3.5. BUN is 21, creatinine 0.9, GFR is greater than 60, sugar is 134, calcium is 7.8, magnesium is 1.8, total bili is 0.3, AST is 29, ALT is 32, alk phos 140, troponin is 0.03 and 0.03, total protein 5.6. TSH is 1.64. She is positive for benzos. ASSESSMENT AND PLAN: She is being seen by Endocrinology, Cardiology and GI. I am hoping to increase her diet today and tonight and if she does well, possibly discharge tomorrow that is my plan. She has got intractable nausea, vomiting, abdominal pain, gastroparesis, diabetes. Josafat Dent DO
--- NOTE | 2018-04-02 13:41 | PN ---
DATE: 04/02/2018 SUBJECTIVE: The patient is comfortable today. She has no pain. No nausea or vomiting and no retrosternal chest pain or leg pain. She will be allowed to have clear liquid diet. PHYSICAL EXAMINATION: VITAL SIGNS: Blood pressure 151/89, heart rate 87, temperature 97.7, respiration 18. HEENT: Normocephalic. CHEST: Clear. HEART: S1 and S2 regular. EXTREMITIES: No edema and no calf tenderness. LABORATORY DATA: Today's hemoglobin, hematocrit, white count and platelet count are within normal limits. Today's SMA-7: Sodium 133, potassium 3.3, chloride 96, CO2 28, glucose 154, BUN 21, creatinine 0.9. Yesterday's D-dimer was 314. ASSESSMENT: 1. Gastroparesis. 2. Ischemic inferolateral EKG changes. 3. Hypokalemia. 4. History of depression. 5. Systemic hypertension. RECOMMENDATIONS: Continue hydralazine 10 mg intravenously every 6 hours p.r.n., Ativan 0.5 mg intravenously every 6 hours for anxiety, Norvasc 10 mg once a day. The patient is currently receiving intravenous potassium chloride replacement. Continue Protonix 40 mg intravenously every 12 hours. I will hold any oral antiplatelet agents or statins until the patient starts to tolerate dietary intake. In view of elevated troponin, the patient reports no chest pain or leg pains and it is unlikely the patient will have an acute DVT or acute pulmonary embolism. Harpreet Espinoza MD
--- NOTE | 2018-04-02 15:00 | PN ---
DATE: 04/02/2018 LOCATION: Room 272. SUBJECTIVE: This is a 57-year-old female with recent uncontrolled type 1 insulin-dependent diabetes presenting here with diffuse upper abdominal pain with intractable nausea, dyspepsia and vomiting and is now being followed closely for metabolic management. She is currently advanced to a liquid diet today as noted. Her glucose values overnight have ranged from 189-200 mg/dL. Her chemistry showed a BUN of 21, sodium 133, potassium 3.3, chloride 96, CO2 of 28, glucose 154, creatinine 0.9. Her thyroid study showed a T4 of 10.1 with a TSH of 1.64. So at this time, we will continue the basal insulin given as Levemir at 4 units subcu at bedtime daily as given. We will continue the low-dose correction scale using Humalog insulin as ordered. As her oral intake is advanced, then we will switch her over to a more physiologic basal and bolus insulin drug combination as indicated. We will continue the IV hydration as ordered and obtain serial chemistries and supplement accordingly as needed. We will continue the potassium supplementation as given. We will follow this patient. Tita Coe MD
[2018-04-02] MEDS: Insulin Detemir 100 units/ml Vial (Levemir) SC SCH (21:56)
[2018-04-03] MEDS: Nitroglycerin 2% Ointment Foilpak UD TOP SCH ×4 (01:00→19:55)
[2018-04-03] MEDS: Sodium Chloride 0.45% 1,000 ML IV SCH ×2 (01:02→16:45)
[2018-04-03] MEDS: Insulin Lispro (humaLOG) LOW Coverage SC SCH ×4 (08:06→22:00)
[2018-04-03 08:09] LABS: HEMOGLOBIN 11.2 g/dL (12.0-16.0); MEAN CELL VOLUME 77.9 fl (80.0-105.0); MEAN CORPUSCULAR HGB CONC 32.1 g/dl (31.0-37.0); RBC 4.48 10^6/uL (3.5-6.1); RED CELL DISTRIBUTION WIDTH 13.5 % (11.5-14.5); WHITE BLOOD COUNT 13.2 10^3/uL (4.5-11.0)
[2018-04-03 08:29] LABS: ALBUMIN 2.1 g/dL (3.0-4.8); ALT/SGPT 30 U/L (7-56); AST/SGOT 17 U/L (14-36); BLOOD UREA NITROGEN 21 mg/dL (7-21); CALCIUM 7.6 mg/dL (8.4-10.5); GFR NON-AFRICAN AMERICAN 57
--- NOTE | 2018-04-03 08:35 | CP.PCM.PN ---
Subjective - Date & Time of Evaluation Date of Evaluation: 04/03/18 Time of Evaluation: 08:31 - Subjective Subjective: I have seen and examined patient. No acute events overnight, she is seen resting in bed comfortably. She does continue to endorse significant epigastric pain, only mildly improved compared to prior. She denies vomiting, fever/chills, has been able to tolerate PO liquids without difficulty. Review of vitals from today shows tachycardia. 12 point review of systems performed, negative aside from mentioned above. Objective - Vital Signs/Intake and Output Vital Signs (last 24 hours): Temp Pulse Resp BP Pulse Ox 97.9 F 126 H 19 125/79 95 04/03/18 06:00 04/03/18 06:00 04/03/18 06:00 04/03/18 06:00 04/03/18 06:00 Intake and Output: 04/03/18 04/03/18 06:59 18:59 Intake Total Output Total Balance - Medications Medications: Current Medications Amlodipine Besylate (Norvasc) 10 mg PO DAILY [facility] Last Admin: 04/02/18 10:03 Dose: 10 mg Fentanyl (Duragesic) 1 patch TD Q72H [facility] Last Admin: 04/01/18 11:53 Dose: 1 patch Heparin Sodium (Porcine) (Heparin) 5,000 units SC Q12 [facility]; Protocol Last Admin: 04/02/18 21:38 Dose: 5,000 units Hydralazine HCl (Apresoline) 10 mg IVP Q6 PRN PRN Reason: Systolic Blood Pressure Sodium Chloride (Sodium Chloride 0.45%) 1,000 mls @ 80 mls/hr IV .[id number] [facility] Last Admin: 04/03/18 01:02 EDT Dose: 80 mls/hr Insulin Detemir (Levemir) 4 unit SC HS [facility] Last Admin: 04/02/18 21:56 Dose: 4 applic Insulin Human Lispro (Humalog Low) 0 units SC ACHS [facility]; Protocol Last Admin: 04/03/18 08:06 Dose: Not Given Ketorolac Tromethamine (Toradol) 30 mg IVP Q6H PRN PRN Reason: Pain, moderate (4-7) Last Admin: 04/03/18 08:16 Dose: 30 mg Lorazepam (Ativan) 0.5 mg IVP Q6H PRN; Protocol PRN Reason: Anxiety Last Admin: 04/02/18 21:48 Dose: 0.5 mg Metoclopramide HCl (Reglan) 10 mg IVP ACHS [facility] Last Admin: 04/03/18 08:11 Dose: 10 mg Nitroglycerin (Nitro-Bid 2% Oint) 1 ea TOP Q6 [facility] Last Admin: 04/03/18 06:05 Dose: 1 ea Ondansetron HCl (Zofran Inj) 4 mg IVP Q4H PRN PRN Reason: Nausea/Vomiting Last Admin: 04/02/18 22:20 Dose: 4 mg Pantoprazole Sodium (Protonix Inj) 40 mg IVP Q12 [facility] Last Admin: 04/02/18 21:38 Dose: 40 mg - Labs Labs: 04/03/18 07:30 04/03/18 07:30 PT 10.7 SECONDS (9.4-12.5) 03/31/18 20:15 INR 0.94 03/31/18 20:15 APTT 28.2 Seconds (25.1-36.5) 04/02/18 06:00 - Constitutional Appears: Non-toxic, No Acute Distress - Head Exam Head Exam: NORMAL INSPECTION - Eye Exam Eye Exam: EOMI, Normal appearance - ENT Exam ENT Exam: Mucous Membranes Moist - Respiratory Exam Respiratory Exam: Clear to Ausculation Bilateral - Cardiovascular Exam Cardiovascular Exam: +S1, +S2 - GI/Abdominal Exam GI & Abdominal Exam: Soft, Tenderness, Normal Bowel Sounds Additional comments: epigastric tenderness to palpation, no rebound/guarding - Extremities Exam Extremities Exam: Normal Inspection - Skin Skin Exam: Dry, Intact, Normal Color, Warm Assessment and Plan - Assessment and Plan (Free Text) Assessment: HTN Anxiety DM - uncontrolled, labile Abdominal pain - gastroparesis Plan: - Liquid diet as tolerated - Continue with anti-emetic therapy PRN - Continue with PPI therapy, supportive care - Pro-motility therapy as per medical team - Maintain strict glycemic control, follow up endocrinology recommendations
[2018-04-03] MEDS ORDERED: Ciprofloxacin 400mg/200ml D5W 400 MG/200 ML BAG IVPB SCH (10:00)
[2018-04-03] MEDS: metroNIDAZOLE IV 500 mg/100 ml 500 MG/100 ML BAG IVPB SCH ×3 (10:22→21:32)
--- NOTE | 2018-04-03 10:37 | PN ---
DATE: 04/03/2018 ENDO FOLLOWUP NOTE LOCATION: In room 272. SUBJECTIVE: This is a 57-year-old female, presenting here with acute exacerbation of diabetic gastroparesis and severe upper abdominal pain, currently on a fentanyl patch given every 72 hours as noted. She is still on the liquid diet with persistent nausea and dyspepsia, but no further vomiting episodes as noted overnight. Her glycemic profile is fluctuating with glucose levels ranging from 209-253 and 375 mg/dL. Her chemistry showed a BUN of 21, sodium 132, potassium 3.5, chloride 98, CO2 of 31, glucose 203 and creatinine 1. So at this time, we will modify her current basal and bolus insulin regimen and add Humalog given as 3 units subcu t.i.d. before meals to start today as ordered. We will also increase the basal insulin with Levemir to be given as 6 units subcu at bedtime daily to start tonight as ordered. We will continue the modified coverage scale using a very low dose of Humalog given four times a day as indicated. We will obtain serial chemistries and supplement accordingly as needed. We will continue the IV hydration as given. We will follow. Tita Coe MD
[2018-04-03] MEDS: Insulin Lispro 1 UNITS/0.01 ML SC SCH ×2 (12:37→17:39)
[2018-04-03] MEDS ORDERED: Sodium Chloride 0.45% 1,000 ML IV SCH (14:45)
--- NOTE | 2018-04-03 16:53 | RAD ---
Date of service: 04/03/2018 PROCEDURE: CHEST RADIOGRAPH, 1 VIEW HISTORY: wbc of 13k COMPARISON: 03/31/2018 FINDINGS: LUNGS: Patchy infiltrate right lower lobe which is a new finding and is suspicious for pneumonia PLEURA: No pneumothorax or pleural fluid seen. CARDIOVASCULAR: Normal. OSSEOUS STRUCTURES: No significant abnormalities. VISUALIZED UPPER ABDOMEN: Normal. OTHER FINDINGS: None. IMPRESSION: Patchy infiltrate right lower lobe which is a new finding and is suspicious for pneumonia
[2018-04-03] MEDS ORDERED: Insulin Detemir 100 units/ml Vial (Levemir) SC SCH (22:00)
[2018-04-03 23:19] VITALS: RESP 20
--- NOTE | 2018-04-03 23:41 | CON ---
DATE: 04/03/2018 SUBJECTIVE: The patient is seen earlier today. CHIEF COMPLAINT: Abdominal pain times several days. HISTORY OF PRESENT ILLNESS: This is a 57-year-old female with past medical history significant for gastroparesis, chronic obstructive lung disease, hypertension, depression, anxiety, panic disorder who is admitted through the emergency room with abdominal pain. The patient has been in the hospital now since , and Infectious Disease consultation requested because of increased WBCs on admission on. On 03/31/2018, the patient's WBCs were normal. At this point, they have been up to 13,200, and Infectious Disease consultation requested. The patient states that she has had no fevers, no chills. There is epigastric pain, and there is mild shortness of breath. No headaches or blurred vision. There is nausea, but no vomiting. No dysuria or frequency. No new headaches. No new back pain. REVIEW OF SYSTEMS: A 14-point review of systems is performed. PAST MEDICAL HISTORY: Significant for gastroparesis, esophageal ulcers, TIA, hypertensive, diabetic, cerebrovascular accident, COPD. PAST SURGICAL HISTORY: Significant for , hysterectomy, right foot partial amputation, and cholecystectomy. ALLERGIES: THE PATIENT HAS ALLERGY TO NARCOTICS, DILAUDID, MORPHINE. PHYSICAL EXAMINATION: GENERAL: She is in bed, appearing chronically ill, debilitated. VITAL SIGNS: Temperature of 98.6, respiratory rate of 22, heart rate of 113, blood pressure is 120/60. HEENT: Unremarkable. NECK: Supple. LUNGS: Have decreased breath sounds. HEART: Normal S1, S2. ABDOMEN: Mild tenderness. No rebound, no guarding, no masses. MEDICATIONS AT HOME: Reveals that the patient's medications are reviewed and the hospital medications are also reviewed. LABORATORY DATA: Laboratories revealed the patient has a white count of 13,200, BUN of 21, creatinine of 1.0. LFTs are normal. Triglyceride is normal. Cholesterol is high. Albumin is low. Alk phos is 140. Glucose is elevated. Hemoglobin A1c is 12.4. Urine toxicology reveals benzodiazepines are positive. There is no microbiology available. DIAGNOSTIC DATA: The patient had a chest x-ray which reveals to be negative, and Dr. Zambrano's progress note is reviewed together and appreciated. ASSESSMENT AND PLAN: This is a 57-year-old female with tachycardia, leukocytosis, does not appeared to be heavily septic. 1. Systemic inflammatory response syndrome. No obvious site of infection at this point and must rule out new nosocomial infections, such as lung, urine, versus the abdomen and versus deep venous thrombosis. The patient is in bed. We will order blood cultures, urine cultures, urinalysis, sputum cultures, Dopplers of the lower extremities, and chest x-ray. The patient is on Flagyl intravenous. I doubt any Clostridium diff since the patient has no diarrhea. We will hold off on antibiotics at this time pending blood, urine, sputum, urinalysis, chest x-ray, Dopplers of the lower extremities, procalcitonin, MRSA screen. The patient had a human immunodeficiency virus test last year which was negative, and we will make further recommendations in this patient with systemic inflammatory response syndrome, most likely leukocytosis secondary to gastroparesis; however, we will look for an infection and a deep venous thrombosis pending panculture, x-ray, imaging, ultrasound, and we will continue the Flagyl at this time pending for initial workup. We will follow closely with you. Marc Sales MD
[2018-04-04] MEDS: Sodium Chloride 0.45% 1,000 ML IV SCH ×2 (00:30→12:54)
[2018-04-04] MEDS: Nitroglycerin 2% Ointment Foilpak UD TOP SCH ×3 (01:27→12:54)
[2018-04-04] MEDS: metroNIDAZOLE IV 500 mg/100 ml 500 MG/100 ML BAG IVPB SCH (05:42)
[2018-04-04 06:51] VITALS: O2SAT 98
[2018-04-04 07:26] LABS: HEMOGLOBIN 11.5 g/dL (12.0-16.0); MEAN CELL VOLUME 78.1 fl (80.0-105.0); MEAN CORPUSCULAR HEMOGLOBIN 25.2 pg (25.0-35.0); MEAN CORPUSCULAR HGB CONC 32.2 g/dl (31.0-37.0); MEAN PLATELET VOLUME 10.2 fl (7.0-11.0); RBC 4.57 10^6/uL (3.5-6.1); RED CELL DISTRIBUTION WIDTH 13.7 % (11.5-14.5); WHITE BLOOD COUNT 11.5 10^3/uL (4.5-11.0)
[2018-04-04 08:01] LABS: ALBUMIN 2.5 g/dL (3.0-4.8); CALCIUM 7.9 mg/dL (8.4-10.5)
[2018-04-04] MEDS: Insulin Lispro (humaLOG) LOW Coverage SC SCH ×2 (08:10→11:36)
[2018-04-04] MEDS ORDERED: Potassium Chloride 20 mEq ER Tab PO ONE (08:15)
[2018-04-04] MEDS: Insulin Lispro 1 UNITS/0.01 ML SC SCH ×2 (08:24→11:19)
--- NOTE | 2018-04-04 08:51 | PN ---
DATE: 04/03/2018 SUBJECTIVE: I have increased her diet yesterday, but she could not handle it. She is still on clears. She is in a lot of abdominal pain, feeling nauseous, threw up lot of food overnight. She is not doing well at all. So, we will keep her on the clears for now. Also, continue with pain medication for the abdominal pain. PHYSICAL EXAMINATION VITAL SIGNS: She has 97.9 temperature, pulse 113, blood pressure 125/79, respiratory rate 19, and saturation 95% on BiPAP last night. HEENT: Head is atraumatic and normocephalic. HEART: Regular rate. LUNGS: Decreased breath sounds. ABDOMEN: Decreased bowel sounds, and tender all over. No guarding, no rebound, but lots of tenderness. She is uncomfortable. EXTREMITIES: No edema. MEDICATIONS: She is currently on Apresoline, Ativan, Cipro, Duragesic patch, Flagyl, heparin, insulin coverage, Levemir, Nitro-Bid, Norvasc, Protonix IV, Reglan IV, IV fluids, Toradol, and Zofran. She also has Flagyl added IV. LABORATORY DATA: Her white count went up to 13.2 from 7, hemoglobin 11.2, hematocrit 34.9, and platelets 305. PTT 28.2. Sodium 132, potassium 3.5. BUN 21, creatinine, sugars 203, calcium is 7.6, total bilirubin is 0.18, CO2 17, alkaline phosphatase 112, total protein is 4.1, and also consult Infectious Disease to add to GI and Endocrinology plus replace potassium. I put her on Cipro and Flagyl and we will see how she does tomorrow. Hopefully, she will improve, put back her down to clear fluids and hopefully she will improve. ASSESSMENT: Intractable abdominal pain, nausea, vomiting, and gastroparesis. Josafat Dent DO [facility]
--- NOTE | 2018-04-04 10:00 | CP.PCM.PN ---
<Ruthann Cleveland - Last Filed: 04/04/18 10:02> Subjective - Date & Time of Evaluation Date of Evaluation: 04/04/18 Time of Evaluation: 09:56 - Subjective Subjective: Gastroenterology Fellow/PGY6 Progress Note Patient resting comfortably. Denies abdominal pain. Tolerating liquid diet. No bowel movement yesterday. 12-point review of systems negative except for as above. Objective - Vital Signs/Intake and Output Vital Signs (last 24 hours): Temp Pulse Resp BP Pulse Ox 98.1 F 87 20 170/85 H 98 04/04/18 06:00 04/04/18 06:00 04/04/18 06:00 04/04/18 06:00 04/04/18 06:00 Intake and Output: 04/04/18 04/04/18 06:59 18:59 Intake Total 2320 Output Total 800 Balance 1520 - Medications Medications: Current Medications Amlodipine Besylate (Norvasc) 10 mg PO DAILY [facility] Last Admin: 04/03/18 10:21 Dose: 10 mg Fentanyl (Duragesic) 1 patch TD Q72H [facility] Last Admin: 04/01/18 11:53 Dose: 1 patch Heparin Sodium (Porcine) (Heparin) 5,000 units SC Q12 PATTI; Protocol Last Admin: 04/03/18 21:33 Dose: 5,000 units Hydralazine HCl (Apresoline) 10 mg IVP Q6 PRN PRN Reason: Systolic Blood Pressure Last Admin: 04/03/18 12:37 Dose: 10 mg Sodium Chloride (Sodium Chloride 0.45%) 1,000 mls @ 80 mls/hr IV .[id number] [facility] Last Admin: 04/04/18 00:30 Dose: Not Given Metronidazole (Flagyl) 500 mg in 100 mls @ 100 mls/hr IVPB Q8 [facility]TI; Protocol Last Admin: 04/04/18 05:42 Dose: 100 mls/hr Insulin Detemir (Levemir) 6 unit SC HS [facility] Last Admin: 04/03/18 22:05 Dose: 6 units Insulin Human Lispro (Humalog Low) 0 units SC ACHS [facility]; Protocol Last Admin: 04/04/18 08:10 Dose: Not Given Insulin Human Lispro (Humalog) 3 units SC AC [facility] Last Admin: 04/04/18 08:24 Dose: 3 u Ketorolac Tromethamine (Toradol) 30 mg IVP Q6H PRN PRN Reason: Pain, moderate (4-7) Last Admin: 04/04/18 05:40 Dose: 30 mg Lorazepam (Ativan) 0.5 mg IVP Q6H PRN; Protocol PRN Reason: Anxiety Last Admin: 04/04/18 06:01 Dose: 0.5 mg Metoclopramide HCl (Reglan) 10 mg IVP ACHS [facility] Last Admin: 04/04/18 08:24 Dose: 10 mg Nitroglycerin (Nitro-Bid 2% Oint) 1 ea TOP Q6 PATTI Last Admin: 04/04/18 05:40 Dose: 1 ea Ondansetron HCl (Zofran Inj) 4 mg IVP Q4H PRN PRN Reason: Nausea/Vomiting Last Admin: 04/02/18 22:20 Dose: 4 mg Pantoprazole Sodium (Protonix Inj) 40 mg IVP Q12 [facility] Last Admin: 04/04/18 09:15 Dose: 40 mg - Labs Labs: 04/04/18 07:15 04/04/18 07:15 PT 10.7 SECONDS (9.4-12.5) 03/31/18 20:15 INR 0.94 03/31/18 20:15 APTT 28.2 Seconds (25.1-36.5) 04/02/18 06:00 - Constitutional Appears: Non-toxic, No Acute Distress - Head Exam Head Exam: ATRAUMATIC, NORMOCEPHALIC - Eye Exam Eye Exam: EOMI, PERRL. absent: Scleral icterus Pupil Exam: PERRL. absent: Miosis, Mydriatic - ENT Exam ENT Exam: Mucous Membranes Moist, Normal Oropharynx - Neck Exam Neck Exam: Full ROM, Normal Inspection - Respiratory Exam Respiratory Exam: Clear to Ausculation Bilateral. absent: Rales, Rhonchi, Wheezes - Cardiovascular Exam Cardiovascular Exam: RRR, +S1, +S2. absent: Gallop, Rubs - GI/Abdominal Exam GI & Abdominal Exam: Soft, Tenderness, Normal Bowel Sounds. absent: Distended, Firm, Guarding, Rigid, Mass, Organomegaly, Rebound Additional comments: mild epigastric discomfort to palpation - Extremities Exam Extremities Exam: Full ROM, Normal Inspection. absent: Pedal Edema - Neurological Exam Neurological Exam: Alert, Awake - Psychiatric Exam Psychiatric exam: Normal Affect, Normal Mood - Skin Skin Exam: Dry, Intact, Normal Color, Warm Assessment and Plan - Assessment and Plan (Free Text) Assessment: 57 year old female with PMH of HTN, uncontrolled T2DM complicated by retinopathy/gastroparesis, MDD, LAUREN, and TIA/CVA presenting vomiting and abdominal pain. Active treatment of gastroparesis due to uncontrolled diabetes. EGD 10/2017 showed Bile reflux gastritis, negative H. pylori and fundic gland polyps. Plan: -A1c 12.3 -improve glycemic control -agree with advancement to heart healthy diabetic diabetic diet with small, frequent meals -on Reglan 10mg ACHS and zofran PRN -avoid NSAIDs -recommend endocrinology outpatient management and referral to [facility] for refractory gastroparesis -will follow clinical course <Dagoberto Zambrano - Last Filed: 04/04/18 10:36> Objective - Vital Signs/Intake and Output Vital Signs (last 24 hours): Temp Pulse Resp BP Pulse Ox 98.1 F 87 20 170/85 H 98 04/04/18 06:00 04/04/18 06:00 04/04/18 06:00 04/04/18 06:00 04/04/18 06:00 Intake and Output: 04/04/18 04/04/18 06:59 18:59 Intake Total 2320 Output Total 800 Balance 1520 - Medications Medications: Current Medications Amlodipine Besylate (Norvasc) 10 mg PO DAILY [facility] Last Admin: 04/03/18 10:21 Dose: 10 mg Fentanyl (Duragesic) 1 patch TD Q72H PATTI Last Admin: 04/01/18 11:53 Dose: 1 patch Heparin Sodium (Porcine) (Heparin) 5,000 units SC Q12 PATTI; Protocol Last Admin: 04/03/18 21:33 Dose: 5,000 units Hydralazine HCl (Apresoline) 10 mg IVP Q6 PRN PRN Reason: Systolic Blood Pressure Last Admin: 04/03/18 12:37 Dose: 10 mg Sodium Chloride (Sodium Chloride 0.45%) 1,000 mls @ 80 mls/hr IV .[id number] [facility] Last Admin: 04/04/18 00:30 Dose: Not Given Metronidazole (Flagyl) 500 mg in 100 mls @ 100 mls/hr IVPB Q8 [facility]TI; Protocol Last Admin: 04/04/18 05:42 Dose: 100 mls/hr Insulin Detemir (Levemir) 6 unit SC HS [facility] Last Admin: 04/03/18 22:05 Dose: 6 units Insulin Human Lispro (Humalog Low) 0 units SC [facility]; Protocol Last Admin: 04/04/18 08:10 Dose: Not Given Insulin Human Lispro (Humalog) 3 units SC AC [facility] Last Admin: 04/04/18 08:24 Dose: 3 u Ketorolac Tromethamine (Toradol) 30 mg IVP Q6H PRN PRN Reason: Pain, moderate (4-7) Last Admin: 04/04/18 05:40 Dose: 30 mg Lorazepam (Ativan) 0.5 mg IVP Q6H PRN; Protocol PRN Reason: Anxiety Last Admin: 04/04/18 06:01 Dose: 0.5 mg Metoclopramide HCl (Reglan) 10 mg IVP [facility] Last Admin: 04/04/18 08:24 Dose: 10 mg Nitroglycerin (Nitro-Bid 2% Oint) 1 ea TOP Q6 [facility] Last Admin: 04/04/18 05:40 Dose: 1 ea Ondansetron HCl (Zofran Inj) 4 mg IVP Q4H PRN PRN Reason: Nausea/Vomiting Last Admin: 04/02/18 22:20 Dose: 4 mg Pantoprazole Sodium (Protonix Inj) 40 mg IVP Q12 [facility] Last Admin: 04/04/18 09:15 Dose: 40 mg - Labs Labs: 04/04/18 07:15 04/04/18 07:15 PT 10.7 SECONDS (9.4-12.5) 03/31/18 20:15 INR 0.94 03/31/18 20:15 APTT 28.2 Seconds (25.1-36.5) 04/02/18 06:00 Attending/Attestation - Attestation I have personally seen and examined this patient.: Yes I have fully participated in the care of the patient.: Yes I have reviewed all pertinent clinical information, including history, physical exam and plan: Yes Notes (Text): 04/04/18 10:27 I have seen and examined patient with GI fellow. No acute events overnight, she reports ongoing abdominal pain but slightly improved compared to yesterday. She denies vomiting, fever/chills. Tolerating PO liquids without difficulty. HTN DM - uncontrolled Abdominal pain - gastroparesis Anxiety - Diet has been advanced by medical team, continue to monitor - Continue with supportive care, anti-emetic therapy PRN - Pro-motility therapy as per medical team - Patient requires outpatient close endocrine follow up with consideration of tertiary care referral for medically refractory gastroparesis
--- NOTE | 2018-04-04 11:31 | PN ---
DATE: 04/04/2018 CARDIOLOGY FOLLOWUP SUBJECTIVE: The patient continues to complain of nausea. The patient has had suffered from gastroparesis in the past. PHYSICAL EXAMINATION: VITAL SIGNS: The patient denies chest pain. Blood pressure is 138/84, heart rate is in the 90s. NECK: Negative JVD. LUNGS: Without rales. HEART: S1 and S2. EXTREMITIES: Without edema. LABORATORY DATA: BUN and creatinine are unremarkable. Glucose is 141, hemoglobin is 11.5. IMPRESSION: 1. Gastroparesis. 2. Nausea and vomiting. 3. Diabetes mellitus. 4. Hypertension. 5. Abnormal EKG. 6. History of depression. PLAN: Given these findings, the patient is currently on antihypertensive medications, awaiting for GI to finish therapies and help with the nausea. The patient has been scheduled for outpatient stress test multiple times and has been noncompliant with the appointments. At this time, there are no acute cardiac issues. Carter Farmer MD
[2018-04-04 13:01] VITALS: BP 134/68; PULSE 45; TEMP 98
--- NOTE | 2018-04-04 14:20 | US ---
HISTORY: Leg pain and swelling. Evaluate for DVT PHYSICIAN(S): Carter Cobian MD. TECHNIQUE: Duplex sonography and color-flow Doppler with graded compression were used to evaluate the deep venous systems of both lower extremities. The exam is limited by edema FINDINGS: The visualized deep venous systems of both lower extremities are sonographically normal and compressible. Normal wave forms and augmentation are seen. There is no sonographic evidence for deep venous thrombosis in the visualized segments of both lower extremities. IMPRESSION: No sonographic evidence for deep venous thrombosis in the visualized segments of both lower extremities.
--- NOTE | 2018-04-04 15:06 | CP.PCM.PN ---
Subjective - Date & Time of Evaluation Date of Evaluation: 04/04/18 Time of Evaluation: 08:55 - Subjective Subjective: Patient ate her breakfast and is having some abdominal pain, mild nausea but no vomiting, no fevers or chills. The patient denies chest pain, no cough, no sore throat, no rhinorrhea. Objective - Vital Signs/Intake and Output Vital Signs (last 24 hours): Temp Pulse Resp BP Pulse Ox 98.2 F 91 H 18 108/66 98 04/03/18 17:00 04/03/18 18:00 04/03/18 17:00 04/03/18 17:00 04/03/18 17:00 Intake and Output: 04/03/18 04/04/18 18:59 06:59 Intake Total 1340 1080 Output Total 800 Balance 1340 280 - Medications Medications: Current Medications Amlodipine Besylate (Norvasc) 10 mg PO DAILY [facility] Last Admin: 04/03/18 10:21 Dose: 10 mg Fentanyl (Duragesic) 1 patch TD Q72H [facility] Last Admin: 04/01/18 11:53 Dose: 1 patch Heparin Sodium (Porcine) (Heparin) 5,000 units SC Q12 [facility]; Protocol Last Admin: 04/03/18 21:33 Dose: 5,000 units Hydralazine HCl (Apresoline) 10 mg IVP Q6 PRN PRN Reason: Systolic Blood Pressure Last Admin: 04/03/18 12:37 Dose: 10 mg Sodium Chloride (Sodium Chloride 0.45%) 1,000 mls @ 80 mls/hr IV .[id number] [facility] Last Admin: 04/03/18 16:45 Dose: 80 mls/hr Metronidazole (Flagyl) 500 mg in 100 mls @ 100 mls/hr IVPB Q8 [facility]; Protocol Last Admin: 04/03/18 21:32 Dose: 100 mls/hr Insulin Detemir (Levemir) 6 unit SC HS [facility]TI Insulin Human Lispro (Humalog Low) 0 units SC ACHS [facility]; Protocol Last Admin: 04/03/18 17:30 Dose: Not Given Insulin Human Lispro (Humalog) 3 units SC AC [facility] Last Admin: 04/03/18 17:39 Dose: 3 u Ketorolac Tromethamine (Toradol) 30 mg IVP Q6H PRN PRN Reason: Pain, moderate (4-7) Last Admin: 04/03/18 17:37 Dose: 30 mg Lorazepam (Ativan) 0.5 mg IVP Q6H PRN; Protocol PRN Reason: Anxiety Last Admin: 04/03/18 17:38 Dose: 0.5 mg Metoclopramide HCl (Reglan) 10 mg IVP ACHS [facility] Last Admin: 04/03/18 21:33 Dose: 10 mg Nitroglycerin (Nitro-Bid 2% Oint) 1 ea TOP Q6 [facility] Last Admin: 04/03/18 19:55 Dose: 1 ea Ondansetron HCl (Zofran Inj) 4 mg IVP Q4H PRN PRN Reason: Nausea/Vomiting Last Admin: 04/02/18 22:20 Dose: 4 mg Pantoprazole Sodium (Protonix Inj) 40 mg IVP Q12 [facility] Last Admin: 04/03/18 21:33 Dose: 40 mg - Labs Labs: 04/03/18 07:30 04/03/18 07:30 PT 10.7 SECONDS (9.4-12.5) 03/31/18 20:15 INR 0.94 03/31/18 20:15 APTT 28.2 Seconds (25.1-36.5) 04/02/18 06:00 - Constitutional Appears: No Acute Distress, Chronically Ill - Head Exam Head Exam: NORMAL INSPECTION - ENT Exam ENT Exam: Mucous Membranes Moist - Respiratory Exam Respiratory Exam: absent: Rales, Rhonchi - Cardiovascular Exam Cardiovascular Exam: +S1, +S2 - GI/Abdominal Exam GI & Abdominal Exam: Soft, Tenderness (mild, vauge). absent: Distended, Firm, Guarding, Rigid, Rebound Assessment and Plan - Assessment and Plan (Free Text) Plan: Assessment systemic inflammatory response syndrome probably related to gastroparesis - no obvious source of infection - CXR is showing right lower lobe patchy infiltrate, but this is a portable film and the PCT is only 0.06, and the patient does not have respiratory symptoms making bacterial pneumonia unlikely (also the patient does not have fevers) history of sepsis due to right lower lobe HCAP, clinically improved and S/P treatment history of UTI with Klebsiella oxytoca gastroparesis HTN DM history of TIA history of esophageal ulcers S/P cholecystectomy S/P S/P hysterectomy S/P right foot partial amputation Plan awaiting blood, urine cx to give further recommendations - will continue to hold off on antibiotics discussed with Dr. Dent
--- NOTE | 2018-04-04 16:35 | PN ---
DATE: 04/04/2018 ENDO FOLLOWUP NOTE LOCATION: In room 272. SUBJECTIVE: This is a 57-year-old female with recent uncontrolled type 1 insulin-dependent diabetes, now being followed closely for metabolic management. Her glycemic levels are fluctuating, but improved overnight and glucose levels have ranged from 74-122 and 242 mg/dL. Her chemistry showed a BUN of 21, sodium 134, potassium 3.5, chloride 101, CO2 of 29, glucose 141, creatinine 1.2. So at this time, we will continue the present basal and bolus insulin regimen as given. She is still on the liquid diet as noted. I will continue the Levemir given as 6 units subcu at bedtime daily as given. We will continue the Humalog given as 3 units subcu t.i.d. before meals as ordered. If her oral intake is advanced to solid food, then we will switch her to a much higher dose regimen as indicated. We will follow and advise accordingly. Tita Coe MD
--- NOTE | 2018-04-05 01:48 | DS ---
She is resting in bed this morning. She slept fairly well. She tells me that she is nauseous and is okay this morning. The pain is tolerable with medication. I am hoping to increase her diet this morning to regular. She has done well for breakfast and we will try and discharge her home today. She was here for intractable nausea, vomiting, abdominal pain, gastroparesis, diabetes, low potassium, and hopefully, she will do well eat and discharge her later this morning. Josafat Dent DO
== END 2018-04-04 13:15 | disposition home or self-care (01) | DRG 74 ==
LOC: ED 19:06 → ERH 22:08 → 2RSO 04-01 01:10
PROVIDERS: ADMIT Family Medicine; ATTEND Family Medicine
DX: E11.43 Type 2 diabetes mellitus with diabetic autonomic (poly)neuropathy (principal); L02.415 Cutaneous abscess of right lower limb; R65.10 Systemic inflammatory response syndrome (SIRS) of non-infectious origin without acute organ dysfunction; K31.84 Gastroparesis; E11.65 Type 2 diabetes mellitus with hyperglycemia; I10 Essential (primary) hypertension; J44.9 Chronic obstructive pulmonary disease, unspecified; F41.0 Panic disorder [episodic paroxysmal anxiety]; E11.319 Type 2 diabetes mellitus with unspecified diabetic retinopathy without macular edema; K58.9 Irritable bowel syndrome, unspecified; R29.6 Repeated falls; Z86.73 Personal history of transient ischemic attack (TIA), and cerebral infarction without residual deficits; K21.9 Gastro-esophageal reflux disease without esophagitis; E87.6 Hypokalemia; D72.829 Elevated white blood cell count, unspecified; E11.51 Type 2 diabetes mellitus with diabetic peripheral angiopathy without gangrene; E78.00 Pure hypercholesterolemia, unspecified; F41.1 Generalized anxiety disorder; I25.10 Atherosclerotic heart disease of native coronary artery without angina pectoris; K29.70 Gastritis, unspecified, without bleeding; Z79.4 Long term (current) use of insulin; Z80.0 Family history of malignant neoplasm of digestive organs; Z87.19 Personal history of other diseases of the digestive system; Z87.440 Personal history of urinary (tract) infections; Z88.5 Allergy status to narcotic agent; Z89.421 Acquired absence of other right toe(s); Z90.49 Acquired absence of other specified parts of digestive tract; Z90.710 Acquired absence of both cervix and uterus

== ENCOUNTER 2018-04-27 02:41 | Inpatient (IN) | payer BC, MEDICARE ==
[2018-04-27] MEDS ORDERED: Sodium Chloride 0.9% 1,000 ML IV SCH (03:00)
[2018-04-27 03:42] LABS: HEMOGLOBIN 12.1 g/dL (12.0-16.0); MEAN CELL VOLUME 77.2 fl (80.0-105.0); MEAN CORPUSCULAR HEMOGLOBIN 25.5 pg (25.0-35.0); MEAN CORPUSCULAR HGB CONC 33.1 g/dl (31.0-37.0); MEAN PLATELET VOLUME 10.2 fl (7.0-11.0); RBC 4.74 10^6/uL (3.5-6.1); RED CELL DISTRIBUTION WIDTH 13.6 % (11.5-14.5); WHITE BLOOD COUNT 10.4 10^3/uL (4.5-11.0)
--- NOTE | 2018-04-27 03:52 | ED PDOC ---
Arrival/HPI - General Chief Complaint: Altered Mental Status Time Seen by Provider: 04/27/18 02:43 Historian: Patient, Spouse - Critical Care Critical Care Minutes: 45 minutes - History of Present Illness Narrative History of Present Illness (Text): 04/27/18 02:40 57 year old female, whose past medical history includes gastroparesis, TIA, COPD, Hypertension for evaluation of episodes of unresponsiveness at home. According to patient apparently with complaint of vomiting and epig astric discomfort. Patient has a history of recurrent visits in multiple occasions for similar complaints. Patient currently complaining of stomach discomfort. The patient denies any fever, chills, chest pain, shortness of breath, diarrhea, urinary symptoms, back pain, neck pain, headache, dizziness, or any other complaints. PMD: Dr. Dent Symptom Onset: Gradual Symptom Course: Unchanged Activities at Onset: Light Context: Home Past Medical History - Provider Review Nursing Documentation Reviewed: Yes - Past History Past History: No Previous - Infectious Disease Hx of Infectious Diseases: None - Tetanus Immunization Tetanus Immunization: Unknown - Reproductive Menopause: Yes - Cardiac Hx Hypertension: Yes - Pulmonary Hx Chronic Obstructive Pulmonary Disease (COPD): Yes - Neurological HX Cerebrovascular Accident: Yes - HEENT Hx HEENT Disorder: Yes Hx Cataracts: Yes (bilateral sx) - Renal Hx Renal Disorder: No - Endocrine/Metabolic Hx Diabetes Mellitus Type 2: Yes - Hematological/Oncological Hx Blood Disorders: Yes Hx Anemia: Yes (blood transfusion) - Integumentary Hx Dermatological Disorder: Yes Other/Comment: abcess - Musculoskeletal/Rheumatological Hx Falls: Yes (Frequent falls last fall 02/28/18) - Gastrointestinal Hx Gastrointestinal Disorders: Yes - Genitourinary/Gynecological Hx Genitourinary Disorders: No - Psychiatric Hx Psychophysiologic Disorder: Yes Hx Anxiety: Yes Hx Depression: Yes Hx Panic Disorder: Yes Hx Substance Use: No (patient denies) Other/Comment: panic disorder - Surgical History Other/Comment: toes amputated from right foot - Anesthesia Hx Anesthesia: Yes Hx Anesthesia Reactions: No Hx Malignant Hyperthermia: No - Suicidal Assessment Feels Threatened In Home Enviroment: No Family/Social History - Physician Review Nursing Documentation Reviewed: Yes Family/Social History: No Known Family HX Smoking Status: Never Smoked Hx Alcohol Use: No (patient denies) Hx Substance Use: No (patient denies) Hx Substance Use Treatment: No Allergies/Home Meds Allergies/Adverse Reactions: Allergies Narcotic/Dilaudid/Morphine Adverse Reaction (Uncoded 04/27/18 02:46) SHORTNESS OF BREATH Home Medications: Home Meds Medication Instructions Recorded Confirmed Unobtainable 04/01/18 04/01/18 Review of Systems - Physician Review All systems were reviewed & negative as marked: Yes - Review of Systems Constitutional: absent: Fevers, Other (Chills) Respiratory: absent: SOB Cardiovascular: absent: Chest Pain Gastrointestinal: Abdominal Pain, Nausea, Vomiting. absent: Diarrhea Genitourinary Female: absent: Dysuria, Frequency, Hematuria Musculoskeletal: absent: Back Pain, Neck Pain Neurological: absent: Headache, Dizziness Physical Exam Vital Signs Reviewed: Yes Vital Signs Temp Pulse Resp BP Pulse Ox 04/27/18 03:15 97.4 F L 04/27/18 02:51 121 H 18 182/111 H 96 Temperature: Afebrile Blood Pressure: Hypertensive Pulse: Tachycardic Respiratory Rate: Normal Appearance: Positive for: Well-Appearing, Non-Toxic, Comfortable Pain Distress: None Mental Status: Positive for: Alert and Oriented X 3 Finger Stick Blood Glucose: 403 - Systems Exam Head: Present: Atraumatic, Normocephalic Pupils: Present: PERRL Extroacular Muscles: Present: EOMI Conjunctiva: Present: Normal Mouth: Present: Moist Mucous Membranes Neck: Present: Normal Range of Motion Respiratory/Chest: Present: Good Air Exchange, Rhonchi. No: Respiratory Distress, Accessory Muscle Use Cardiovascular: Present: Regular Rate and Rhythm, Normal S1, S2. No: Murmurs Abdomen: Present: Tenderness (palpable tenderness to epigastric area ), Normal Bowel Sounds. No: Distention, Peritoneal Signs Back: Present: Normal Inspection Upper Extremity: Present: Normal Inspection. No: Cyanosis, Edema Lower Extremity: Present: Normal Inspection. No: Edema Neurological: Present: GCS=15, CN II-XII Intact, Speech Normal Skin: Present: Warm, Dry, Normal Color. No: Rashes Psychiatric: Present: Alert, Oriented x 3, Normal Insight, Normal Concentration Medical Decision Making ED Course and Treatment: 04/27/18 02:40 Impression: 57 year old female presents for evaluation of episode of unresponsiveness at home. According to , patient complaining of vomiting and epigastric discomfort. Plan: -- CT Head w/o contrast -- CT Abd & Pelvis w/o contrast -- EKG -- Labs -- CXR -- Protonix Inj, IV Fluids, Toradol, Zofran -- Urinalysis -- Reassess and disposition Prior Visits: Notes and results from previous visits were reviewed. Progress Notes: EKG shows NSR at 98 BPM with sinus arrhythmia, non-specific ST changes. Interpreted by me CT SCAN OF THE ABDOMEN AND PELVIS WITHOUT ORAL OR IV CONTRAST. Electronically signed on Apr 27, 2018 5:15:16 AM EST by: Bharath Lopez M.D. IMPRESSION: Bilateral basilar groundglass density/airspace consolidations more on the right side. Probably multifocal bronchopneumonia, increased. Fluid-filled distended stomach. Gastroparesis. Recurrent finding. Small sliding hiatal hernia, unchanged. Significantly distended bladder. Retention. Recurrent finding. Fluid filled colon. Ileus. Scattered fluid filled small bowel loops. 04/27/18 05:19 CXR Impression: As read by me, right-sided infiltrate 04/27/18 06:13 Case was discussed with .Accepts to his service.Request ICU consult prior to final disposition.Case was discussed with production team member and emergency medical service manager both of which to evaluate the patient. 04/27/18 06:54 Patient was seen and evaluated by the videographer who concurrs with ICU admission - Lab Interpretations Lab Results: 04/27/18 03:11 Lab Results 04/27/18 03:11: WBC 10.4, RBC 4.74, Hgb 12.1, Hct 36.6, MCV 77.2 L, MCH 25.5, MC HC 33.1, RDW 13.6, Plt Count 366, MPV 10.2 I have reviewed the lab results: Yes - RAD Interpretation Radiology Orders: 04/27/18 02:47 HEAD W/O CONTRAST [CT] Stat CHEST ONE VIEW [RAD] Stat Radio Equipment Repairer: ED Physician - EKG Interpretation Interpreted by ED Physician: Yes Type: 12 lead EKG - Medication Orders Current Medication Orders: Sodium Chloride (Sodium Chloride 0.9%) 1,000 mls @ 100 mls/hr IV .Q10H [facility] - Scribe Statement The provider has reviewed the documentation as recorded by the Scribe Alaa Mile Provider Scribe Attestation: All medical record entries made by the Scribe were at my direction and personally dictated by me. I have reviewed the chart and agree that the record accurately reflects my personal performance of the history, physical exam, medical decision making, and the department course for this patient. I have also personally directed, reviewed, and agree with the discharge instructions and disposition. Disposition/Present on Arrival - Present on Arrival Any Indicators Present on Arrival: No History of DVT/PE: No History of Uncontrolled Diabetes: Yes Urinary Catheter: No History of Decub. Ulcer: No History Surgical Site Infection Following: None - Disposition Have Diagnosis and Disposition been Completed?: Yes Diagnosis: Pneumonia, Diabetes, Syncope and collapse, Diabetic gastroparesis, Hypoxia, Intractable vomiting Disposition: HOSPITALIZED Disposition Time: 06:53 Patient Problems: Current Active Problems Problem Status Onset Diabetic gastroparesis Acute Hypoxia Acute Intractable vomiting Acute Pneumonia Acute Syncope and collapse Acute Diabetes Chronic Condition: GUARDED Discharge Instructions (ExitCare): Syncope (ED) Forms: [employer] (Indonesian)
[2018-04-27] MEDS ORDERED: Sodium Chloride 0.9% 1,000 ML IV STA (04:08)
[2018-04-27 04:14] LABS: INR 0.92; PARTIAL THROMBOPLASTIN TIME 27.5 Seconds (25.1-36.5); PROTHROMBIN TIME 10.5 SECONDS (9.4-12.5)
[2018-04-27 04:22] LABS: ALBUMIN 3.1 g/dL (3.0-4.8); ALT/SGPT 36 U/L (7-56); AST/SGOT 29 U/L (14-36); BLOOD UREA NITROGEN 22 mg/dL (7-21); GFR NON-AFRICAN AMERICAN > 60
[2018-04-27 04:26] LABS: TROPONIN I < 0.01 ng/mL
[2018-04-27] MEDS ORDERED: Piperacillin/Tazobact 3.375 gm 100 ML IV STA (05:24)
[2018-04-27] MEDS ORDERED: Albuterol-Ipratrop 3 mg / 0.5 (3 ml) UD IH STA (05:24)
[2018-04-27] MEDS ORDERED: Azithromycin 500MG/NS 250ml 500 MG/250 ML BAG IV STA (05:26)
[2018-04-27 05:45] LABS: ARTERIAL BLOOD GAS HCO3 29.2 mmol/L (21-28); ARTERIAL BLOOD GAS HEMOGLOBIN 10.8 g/dL (11.7-17.4); ARTERIAL BLOOD GAS O2 CONTENT 13.9 ML/dl (15-23); ARTERIAL BLOOD GAS O2 SAT 92.8 % (95-98); ARTERIAL BLOOD GAS PCO2 45 mm/Hg (35-45); ARTERIAL BLOOD GAS PH 7.42 (7.35-7.45); ARTERIAL BLOOD GAS TCO2 30.6 mmol.L (22-28)
[2018-04-27] MEDS ORDERED: Insulin Regular 1 UNITS/0.01 ML ML SC STA (06:07)
[2018-04-27 06:09] LABS: PH,URINE 7.5 (4.7-8.0); URINE BILIRUBIN NEGATIVE (NEGATIVE); URINE BLOOD SMALL (NEGATIVE); URINE GLUCOSE (UA) >=1000 mg/dL (NEGATIVE); URINE LEUKOCYTE ESTERASE NEGATIVE Leu/uL (NEGATIVE); URINE PROTEIN >=300 mg/dL (<30 mg/dL); URINE UROBILINOGEN 0.2 E.U./dL (<1 E.U./dL)
[2018-04-27 06:11] LABS: URINE APPEARANCE CLEAR (CLEAR); URINE COLOR YELLOW (YELLOW)
[2018-04-27] MEDS ORDERED: Insulin Regular 1 UNITS/0.01 ML ML ONE (06:16)
[2018-04-27 06:28] LABS: URINE BACTERIA RARE (NEG); URINE EPITHELIAL CELLS 0 - 2 /hpf (0-5); URINE WBC 0 - 2 /hpf (0-6)
[2018-04-27 06:55] LABS: BARBITURATES, UR NEGATIVE (NEGATIVE); BENZODIAZEPINES, UR POSITIVE (NEGATIVE); OPIATES, UR NEGATIVE (NEGATIVE); PHENCYCLIDINE, UR NEGATIVE (NEGATIVE)
--- NOTE | 2018-04-27 07:14 | CP.PCM.CON ---
Past Patient History - Infectious Disease Hx of Infectious Diseases: None - Tetanus Immunizations Tetanus Immunization: Unknown - Past Social History Smoking Status: Never Smoked - CARDIAC Hx Hypertension: Yes - PULMONARY Hx Chronic Obstructive Pulmonary Disease (COPD): Yes - NEUROLOGICAL HX Cerebrovascular Accident: Yes - HEENT Hx HEENT Problems: Yes Hx Cataracts: Yes (bilateral sx) - RENAL Hx Chronic Kidney Disease: No - ENDOCRINE/METABOLIC Hx Diabetes Mellitus Type 2: Yes - HEMATOLOGICAL/ONCOLOGICAL Hx Blood Disorders: Yes Hx Anemia: Yes (blood transfusion) - INTEGUMENTARY Hx Dermatological Problems: Yes Other/Comment: abcess - MUSCULOSKELETAL/RHEUMATOLOGICAL Hx Falls: Yes (Frequent falls last fall 02/28/18) - GASTROINTESTINAL Hx Gastrointestinal Disorders: Yes - GENITOURINARY/GYNECOLOGICAL Hx Genitourinary Disorders: No - PSYCHIATRIC Hx Psychophysiologic Disorder: Yes Hx Anxiety: Yes Hx Depression: Yes Hx Panic Symptoms: Yes Hx Substance Use: No (patient denies) Other/Comment: panic disorder - SURGICAL HISTORY Other/Comment: toes amputated from right foot - ANESTHESIA Hx Anesthesia: Yes Hx Anesthesia Reactions: No Hx Malignant Hyperthermia: No Meds Allergies/Adverse Reactions: Allergies Allergy/AdvReac Type Severity Reaction Status Date / Time Narcotic/Dilaudid/Morphine AdvReac SHORTNESS Uncoded 04/27/18 02:46 OF BREATH - Medications Medications: Current Medications Sodium Chloride (Sodium Chloride 0.9%) 1,000 mls @ 100 mls/hr IV .Q10H PATTI Levalbuterol HCl (Xopenex) 1.25 mg IH [id number] PATTI Results - Vital Signs Recent Vital Signs: Last Vital Signs Temp 97.4 F L 04/27/18 03:15 Pulse 98 H 04/27/18 05:43 Resp 18 04/27/18 05:43 BP 150/94 H 04/27/18 05:43 Pulse Ox 93 L 04/27/18 05:43 - Labs Result Diagrams: 04/27/18 03:11 04/27/18 03:50 Labs: Laboratory Results - last 24 hr 04/27/18 04/27/18 04/27/18 02:55 03:11 03:50 WBC 10.4 RBC 4.74 Hgb 12.1 Hct 36.6 MCV 77.2 L MCH 25.5 MCHC 33.1 RDW 13.6 Plt Count 366 MPV 10.2 PT 10.5 INR 0.92 APTT 27.5 pCO2 pO2 HCO3 ABG pH ABG Total CO2 ABG O2 Saturation ABG O2 Content ABG Base Excess ABG Hemoglobin ABG Carboxyhemoglobin POC ABG HHb (Measured) ABG Methemoglobin ABG O2 Capacity Hgb O2 Saturation FiO2 Sodium Potassium Chloride Carbon Dioxide Anion Gap BUN Creatinine Est GFR ( Amer) Est GFR (Non-Af Amer) POC Glucose (mg/dL) 403 H* Random Glucose Calcium Total Bilirubin AST ALT Alkaline Phosphatase Lactate Dehydrogenase Total Creatine Kinase Troponin I Total Protein Albumin Globulin Albumin/Globulin Ratio Urine Color Urine Appearance Urine pH Ur Specific [place] Urine Protein Urine Glucose (UA) Urine Ketones Urine Blood Urine Nitrate Urine Bilirubin Urine Urobilinogen Ur Leukocyte Esterase Urine RBC Urine WBC Ur Epithelial Cells Urine Bacteria Urine Opiates Screen Urine Methadone Screen Ur Barbiturates Screen Ur Phencyclidine Scrn Ur Amphetamines Screen U Benzodiazepines Scrn U Oth Cocaine Metabols U Cannabinoids Screen 04/27/18 04/27/18 04/27/18 03:50 05:13 05:35 WBC RBC Hgb Hct MCV MCH MCHC RDW Plt Count MPV PT INR APTT pCO2 45 pO2 62.0 L HCO3 29.2 H ABG pH 7.42 ABG Total CO2 30.6 H ABG O2 Saturation 92.8 L ABG O2 Content 13.9 L ABG Base Excess 4.1 H ABG Hemoglobin 10.8 L ABG Carboxyhemoglobin 1.3 POC ABG HHb (Measured) 7.1 H ABG Methemoglobin 0.0 ABG O2 Capacity 15.0 L Hgb O2 Saturation 91.6 L FiO2 100.0 Sodium 136 Potassium 3.8 Chloride 97 L Carbon Dioxide 31 Anion Gap 11 BUN 22 H Creatinine 0.7 Est GFR ( Amer) > 60 Est GFR (Non-Af Amer) > 60 POC Glucose (mg/dL) Random Glucose 491 H* D Calcium 9.0 Total Bilirubin 0.4 AST 29 ALT 36 Alkaline Phosphatase 133 H Lactate Dehydrogenase 788 H Total Creatine Kinase 150 Troponin I < 0.01 D Total Protein 6.0 Albumin 3.1 Globulin 2.9 Albumin/Globulin Ratio 1.0 L Urine Color Urine Appearance Urine pH Ur Specific [place] Urine Protein Urine Glucose (UA) Urine Ketones Urine Blood Urine Nitrate Urine Bilirubin Urine Urobilinogen Ur Leukocyte Esterase Urine RBC Urine WBC Ur Epithelial Cells Urine Bacteria Urine Opiates Screen Negative Urine Methadone Screen Negative Ur Barbiturates Screen Negative Ur Phencyclidine Scrn Negative Ur Amphetamines Screen Negative U Benzodiazepines Scrn Positive H U Oth Cocaine Metabols Negative U Cannabinoids Screen Negative 04/27/18 05:55 WBC RBC Hgb Hct MCV MCH MCHC RDW Plt Count MPV PT INR APTT pCO2 pO2 HCO3 ABG pH ABG Total CO2 ABG O2 Saturation ABG O2 Content ABG Base Excess ABG Hemoglobin ABG Carboxyhemoglobin POC ABG HHb (Measured) ABG Methemoglobin ABG O2 Capacity Hgb O2 Saturation FiO2 Sodium Potassium Chloride Carbon Dioxide Anion Gap BUN Creatinine Est GFR ( Amer) Est GFR (Non-Af Amer) POC Glucose (mg/dL) Random Glucose Calcium Total Bilirubin AST ALT Alkaline Phosphatase Lactate Dehydrogenase Total Creatine Kinase Troponin I Total Protein Albumin Globulin Albumin/Globulin Ratio Urine Color Yellow Urine Appearance Clear Urine pH 7.5 Ur Specific [place] 1.020 Urine Protein >=300 H Urine Glucose (UA) >=1000 Urine Ketones 15 H Urine Blood Small H Urine Nitrate Negative Urine Bilirubin Negative Urine Urobilinogen 0.2 Ur Leukocyte Esterase Negative Urine RBC 2 - 5 Urine WBC 0 - 2 Ur Epithelial Cells 0 - 2 Urine Bacteria Rare Urine Opiates Screen Urine Methadone Screen Ur Barbiturates Screen Ur Phencyclidine Scrn Ur Amphetamines Screen U Benzodiazepines Scrn U Oth Cocaine Metabols U Cannabinoids Screen
[2018-04-27] MEDS ORDERED: Insulin Regular 100 UNITS in Sodium Chloride 0.9% 99 ML IV PRN (07:34)
[2018-04-27] MEDS ORDERED: Lactated Ringer's 1,000 ML IV SCH ×2 (07:45)
[2018-04-27 08:05] LABS: BASO # 0.01 K/mm3 (0.0-2.0); BASO % 0.1 % (0.0-3.0); GRAN # 10.03 (1.4-6.5); GRAN % 91.5 % (50.0-68.0); HEMOGLOBIN 10.6 g/dL (12.0-16.0); LYMPH # 0.7 (1.2-3.4); LYMPH % 6.1 % (22.0-35.0); MEAN CELL VOLUME 79.1 fl (80.0-105.0); MEAN CORPUSCULAR HEMOGLOBIN 25.2 pg (25.0-35.0); MEAN CORPUSCULAR HGB CONC 31.8 g/dl (31.0-37.0); MEAN PLATELET VOLUME 9.8 fl (7.0-11.0); MONO # 0.3 (0.1-0.6); MONO % 2.3 % (1.0-6.0); PLATELET COUNT 318 10^3/uL (120.0-450.0); RBC 4.21 10^6/uL (3.5-6.1); RED CELL DISTRIBUTION WIDTH 13.8 % (11.5-14.5)
[2018-04-27 08:24] LABS: ALB/GLOB RATIO 1.1 (1.1-1.8); ALBUMIN 2.8 g/dL (3.0-4.8); ALT/SGPT 35 U/L (7-56); AST/SGOT 33 U/L (14-36); BLOOD UREA NITROGEN 27 mg/dL (7-21); CALCIUM 8.5 mg/dL (8.4-10.5); GFR NON-AFRICAN AMERICAN > 60
[2018-04-27 08:26] LABS: VENOUS BLOOD GAS BASE EXCESS -2.7 mmol/L (0.0-2.0); VENOUS BLOOD GAS PO2 88 mm/Hg (30-55); VENOUS BLOOD PH 7.29 (7.32-7.43)
[2018-04-27 08:40] LABS: BAND 5 % (0-2); LYMPHOCYTE 6 % (22.0-35.0); MONOCYTE 2 % (1.0-6.0); NEUTROPHIL 87 % (50.0-70.0)
[2018-04-27 08:41] LABS: PLATELET ESTIMATE NORMAL (NORMAL)
[2018-04-27] MEDS ORDERED: Cefepime IV 2 gm in NS 2 GM/100 ML BAG IVPB SCH (08:45)
--- NOTE | 2018-04-27 08:52 | CT ---
Date of service: 04/27/2018 PROCEDURE: CT HEAD WITHOUT CONTRAST. HISTORY: syncope COMPARISON: None available. TECHNIQUE: Axial computed tomography images were obtained through the head/brain without intravenous contrast. Radiation dose: Total exam DLP = 951.39 mGy-cm. This CT exam was performed using one or more of the following dose reduction techniques: Automated exposure control, adjustment of the mA and/or kV according to patient size, and/or use of iterative reconstruction technique. FINDINGS: HEMORRHAGE: No intracranial hemorrhage. BRAIN: No mass effect or edema. No atrophy or chronic microvascular ischemic changes. VENTRICLES: Unremarkable. No hydrocephalus. CALVARIUM: Unremarkable. PARANASAL SINUSES: Unremarkable as visualized. No significant inflammatory changes. MASTOID AIR CELLS: Unremarkable as visualized. No inflammatory changes. OTHER FINDINGS: None. IMPRESSION: Normal CT of the Head.
[2018-04-27] MEDS: Levalbuterol 1.25 MG/3 ML Inhal Soln UD IH SCH ×2 (08:54→19:47)
[2018-04-27] MEDS: Vancomycin 1gm in NS 250ml 1 GM/250 ML BAG IVPB SCH ×2 (08:54→21:00)
--- NOTE | 2018-04-27 08:54 | CON ---
DATE: 04/27/2018 PULMONARY CONSULTATION REASON FOR PULMONARY CONSULTATION: Pneumonia. REFERRING PHYSICIAN FOR THIS PULMONARY CONSULTATION: Dr. Dent. History is obtained via extensive discussion with the . I have also discussed the case with the emergency room physician and nurse at length. The patient is a chronically ill 57-year-old female, with past medical history significant for chronic gastroparesis, multiple episodes of nausea and vomiting, diabetes mellitus, noncompliance with medication at home, severe peripheral vascular disease, partial right foot amputation, questionable chronic obstructive pulmonary disease, depression, anxiety, who presents to [facility] ([facility] with lethargy. Apparently, the patient was found by the to be very lethargic. When he awoke her, she complained of abdominal pain and had multiple episodes of nausea and vomiting. She was then taken to [facility] ([facility] for additional evaluation and treatment. The patient was noted to be mildly short of breath at home. There is no history of significant cough or sputum production. There is no history of chest pain, coughing up of blood, or chest pain - made worse with deep respirations. There is no history of temperatures, chills or infectious exposure. There is no history of night sweats, weight loss or appetite change prior to the above events. No history of leg or calf pains. No history of syncope or diaphoresis. No history of recent travel or trauma. REVIEW OF SYSTEMS: No acute urinary symptoms. No new musculoskeletal complaints. Rest of the review of systems is negative. ALLERGIES: TO MORPHINE AND DILAUDID. SOCIAL HISTORY: Positive for tobacco, negative for alcohol. FAMILY HISTORY: No inheritable diseases. HOME MEDICATIONS: Are not listed in the computer at the present time. PHYSICAL EXAMINATION: GENERAL: The patient is uncomfortable this morning. She is complaining of severe abdominal pain. She is not short of breath at rest. VITALS: Temperature is 97.4, pulse 98, respiratory rate 18, blood pressure 150/94. Oxygen saturation on face mask is 93%. HEENT: Normocephalic, atraumatic. No JVD. CARDIOVASCULAR: Positive S1, S2. No S3 gallop. LUNGS: Crackles at both bases (right worse than left). Minimal rhonchi. No wheezing. 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 There is no edema in the legs. There is no cyanosis or clubbing. Calves are nontender to palpation. GASTROINTESTINAL: Abdomen is soft. It is mildly distended and tender to palpation. Bowel sounds are somewhat diminished. SKIN: No acute rash. NEUROLOGIC: Exam limited at the present time. PERTINENT LABORATORY DATA: Chest x-ray was done early this morning and reviewed. There is a dense right lower lobe pneumonia noted. There is also some minimal scarring at the left lung base. Abdominal and pelvic CAT scan was also done. Again noted is a dense right lower lobe infiltrate - with air bronchograms - consistent with pneumonia. The left lower lobe reveals only minimal scarring. Arterial blood gas was done on 100% non-rebreather. Results are: pH 7.42, pCO2 of 45, pO2 of 62. CBC: White count 10.4K, hemoglobin 12.1, hematocrit 36.6, platelets of 366,000. Complete metabolic profile: Chloride 97, BUN 22, glucose 491, alkaline phosphatase 133, LDH 788. Rest of the metabolic profile is within normal limits. IMPRESSION: 1. Right lower lobe pneumonia - rule out aspiration. 2. Chronic obstructive pulmonary disease. 3. Hypoxemia. 4. Chronic gastroparesis. 5. Uncontrolled diabetes mellitus. PLAN: Again, I did discuss the case with her at length. I have also discussed the case with Dr. Faust (emergency room) and the nurse at length. I have also reviewed the chart at length. The patient presents to [facility] after being found very lethargic by her . After the tried to wake her up, the patient then complained of severe abdominal discomfort and started with multiple episodes of nausea and vomiting. The patient was then transported to [facility] for additional evaluation. I did review the chest x-ray and abdominal CAT scan. Both studies are consistent with a right lower lobe pneumonia. Given the above history, aspiration pneumonia is most likely. Dr. Sales has been called on the case for antibiotic usage. I have also reviewed the arterial blood gas. There is a significant alveolar-arterial gradient noted. ICU evaluation has been requested. On physical exam, there is only mild bronchospasm noted. I will start the patient on Xopenex nebulizer treatments for the time being. I will also order aspiration precautions. Neurologic and gastrointestinal consults have also been ordered. I will also order a repeat chest x-ray - for tomorrow - for comparison. The patient appears critically ill at this point in time. Again, the ICU team will evaluate the patient this morning. I will discuss the above with Dr. Dent. Thank you very much for this pulmonary consultation. Cesar Enriquez MD [facility]
--- NOTE | 2018-04-27 08:56 | CT ---
Date of service: 04/27/2018 PROCEDURE: CT Abdomen and Pelvis without intravenous contrast HISTORY: pain COMPARISON: None. TECHNIQUE: Technique. Contrast dose: Radiation dose: Total exam DLP = 570.96 mGy-cm. This CT exam was performed using one or more of the following dose reduction techniques: Automated exposure control, adjustment of the mA and/or kV according to patient size, and/or use of iterative reconstruction technique. FINDINGS: LOWER THORAX: Large right lower lobe region of consolidation for which short-term interval follow-up is recommended. LIVER: Unremarkable. No gross lesion or ductal dilatation. GALLBLADDER AND BILE DUCTS: Cholecystectomy.. PANCREAS: Unremarkable. No gross lesion or ductal dilatation. SPLEEN: Unremarkable. ADRENALS: Unremarkable. No mass. KIDNEYS AND URETERS: 17 millimeter left upper pole renal cyst.. No hydronephrosis. No solid mass. VASCULATURE: Unremarkable. No aortic aneurysm. No aortic atherosclerotic calcification or mural plaque present. BOWEL: Fluid in the rectum.. No obstruction. No gross mural thickening. APPENDIX: Unremarkable. Normal appendix. PERITONEUM: Unremarkable. No free fluid. No free air. LYMPH NODES: Unremarkable. No enlarged lymph nodes. BLADDER: Marked bladder distension.. REPRODUCTIVE: Unremarkable. BONES: No acute fracture. OTHER FINDINGS: None. IMPRESSION: Large right lower lobe region of consolidation, nonspecific but probably representing pneumonia. Recommend short-term interval follow-up. Marked bladder distension. Fluid in the rectum. Status post cholecystectomy.
--- NOTE | 2018-04-27 09:18 | CON ---
DATE: 04/27/2018 HISTORY OF PRESENT ILLNESS: The patient is a 57-year-old lady with longstanding diabetes mellitus type 2, insulin dependent, history of gastroparesis, who presented this time with nausea, vomiting for several days. She was also found to be unresponsive at home today and was emergently brought into ER for further management and monitoring. At the time of ICU evaluation, the patient is alert, awake, and able to provide limited history which concurred the nausea, vomiting, symptoms duration of 3-4 days and substantial stomach discomfort. The patient denies, however, fever, chills, sweats, diarrhea, back pain, neck pain, headache. PAST MEDICAL HISTORY: COPD, hypertension, diabetes mellitus type 2 complicated by gastroparesis, TIA, COPD. SOCIAL HISTORY: The patient has never smoked. No alcohol or illicit drug abuse. ALLERGIES: DILAUDID, MORPHINE. FAMILY HISTORY: Noncontributory. MEDICATION AT HOME: Unavailable. REVIEW OF SYSTEMS: Review of 12-organ systems other than mentioned in history of present illness is negative. CAT scan of the abdomen and pelvis revealed right lower lobe consolidation with air bronchograms. Also bilateral basilar ground-glass densities. Stomach is distended and fluid filled consistent with diagnosis of gastroparesis. Significantly distended bladder (Wan catheter will be placed). Fluid-filled colon. EKG showed QTc 503 (Zofran was held). Chest x-ray showed right lower lobe infiltrate. PHYSICAL EXAMINATION: VITAL SIGNS: Heart rate 103, blood pressure 95/51, oxygen saturation 94% on nasal cannula, respiratory rate 20. ENT, HEAD AND NECK: Atraumatic. Mucosal membranes are dry. LUNGS: Clear to auscultation bilaterally. HEART: Regular rate and rhythm. S1, S2 normal. ABDOMEN: Soft. Mildly tender in epigastric area. NEUROLOGIC: The patient moves all extremities spontaneously. SKIN: Moist. PSYCHIATRIC: The patient is alert and awake, following commands. MUSCULOSKELETAL: No C/C/E. LABORATORY DATA: Sodium 136, potassium 3.8, chloride 97, carbon dioxide 31, BUN 22, creatinine 0.7, glucose 491; however, last Accu-Chek more than 500. AST 29, ALT 36, total bilirubin 0.4, alkaline phosphatase 133. Troponin less than 0.01. WBC 10.4, hemoglobin 12.1, platelet count 366. Toxicology screen positive for benzodiazepines. Urine negative for leukocyte esterase and nitrites; however, ketones present, glucose present, and proteinuria present. ASSESSMENT AND PLAN: This is a 57-year-old lady who presented with diabetic ketoacidosis, severe dehydration, complex acid base disturbance including metabolic acidosis combined with contraction alkalosis in the setting of community-acquired pneumonia which may or may not be secondary to aspiration versus aspiration pneumonitis. At present time, we will proceed with aggressive fluid resuscitation. We will choose balanced crystalloids. The patient will receive 2 liters of lactated Ringer as a bolus and then we will continue with lactated Ringer at 200 mL/hour, we will proceed with insulin drip, Accu-Chek every 1 hour, BMP every 4 hours. I agree with broad-spectrum antibiotics. The patient received Zosyn and azithromycin already here in emergency room. ID consult was requested by primary medical doctor. Blood culture, urine culture, urine for Legionella and streptococcal antigen, procalcitonin were ordered. The patient will be going to Intensive Care Unit for further management and monitoring. Wan catheter will be placed. We will maintain mean arterial pressure more than 65 and avoid hyperchloremia. Hopefully, better control of glucose and treating DKA will improve gastroparesis symptoms as well. GI consult was also requested by PMD to address gastroparesis issue. I, myself, will hold off on reglan or zofran as both of them prolong Qtc which is already prolonged and patient received azithromycin in ER. We will continue with DVT, GI prophylaxis. Addendum: AG closed, insulin drip switched to levemir, will cont D5 cont IV solution as patient has gastroparesis and thus may have issue with absorption. mental status and abdominal pain improved. Vanco/Zosyn/Doxy started by ID service. Will repeat EKG in am ccm time 40 min Delfin Esqueda MD [facility]
--- NOTE | 2018-04-27 09:36 | RAD ---
Date of service: 04/27/2018 PROCEDURE: CHEST RADIOGRAPH, 1 VIEW HISTORY: syncope COMPARISON: 04/03/2018 FINDINGS: LUNGS: There is an increasing infiltrate at the right lung base. PLEURA: No pneumothorax or pleural fluid seen. CARDIOVASCULAR: No aortic atherosclerotic calcification present. Normal. OSSEOUS STRUCTURES: No significant abnormalities. VISUALIZED UPPER ABDOMEN: Normal. OTHER FINDINGS: None. IMPRESSION: Increasing pneumonia right lung base involving the right middle lobe and lower lobe
--- NOTE | 2018-04-27 10:13 | HP ---
DATE OF EXAM: 04/27/2018 HISTORY OF PRESENT ILLNESS: I know Ting for many years now. She has multiple hospital admissions and also multiple house calls. She is a 57-year-old female who I know very well presents according to the with vomiting again, epigastric discomfort, associated gastroparesis that she gets from time to time. She has had stomach discomfort, she is throwing up, lots of pain. She has done this numerous times in the past. PAST MEDICAL HISTORY: She has a past medical history of gastroparesis, TIA, COPD, hypertension, diabetes usually fanny high, CVA in the past, bilateral cataract surgeries. She has had transfusions for anemia. She had abscesses, multiple falls. She has anxiety. She has depression. She has panic disorder. She had toes amputated from the right foot, hypertension. FAMILY HISTORY: Diabetes in the family. SOCIAL HISTORY: No smoking. No drinking. No drugs. ALLERGIES: SHE IS ALLERGIC TO NARCOTICS, DILAUDID, MORPHINE. REVIEW OF SYSTEMS: No acute vision or hearing changes. No shortness of breath. No chest pain. She has abdominal pain, nausea, vomiting. No problems urinating. No back pain, no neck pain, no headache, no dizziness, no skin issues. PHYSICAL EXAMINATION: VITAL SIGNS: She has a 97.4 temperature, 121 pulse, 18 respiratory rate, 182/111 blood pressure, 96% O2 sat. GENERAL: She is uncomfortable, toxic in bed, very uncomfortable from throwing up. Alert and oriented x3. Sugar was between 400 and 500. HEENT: Head is atraumatic, normocephalic. Extraocular muscles are intact. Pupils react to light and accommodation. Throat is dry. NECK: Supple. HEART: Regular rate. Normal S1, S2. LUNGS: Decreased breath sounds but clear to auscultation. ABDOMEN: Tender all over the place. No guarding, no rebound. No CVA tenderness, but lateral abdominal cramping and throwing up. EXTREMITIES: Have no edema. GCS is 15. Cranial nerves II through XII grossly intact. SKIN: Has fair turgor. No apparent rashes or ulcers appreciated, alert and oriented x3. LYMPHS: Thyroid midline. No palpable appreciable lymphadenopathy. She had scattered fluid-filled small bowel loops on CT scan. probable multifocal bronchopneumonia, gastroparesis, sliding hiatal hernia. She has a right-sided infiltrate as per the emergency room doctor on chest x-ray. She has a negative for the flu. LABORATORY DATA: She has a 11 white count, 10.6 hemoglobin, 33.3 hematocrit with 318 platelets. Her lactate was 4.2, quite high. She has a 139 sodium, potassium 3.5, we will give her some potassium. BUN is 27, creatinine 0.8, GFR is greater than 60, sugar is 510, 491. She will have Endocrinology on board, phosphorous is 4.9, magnesium 1.7, total bili is 0.3, AST is 33, ALT is 35, alk phos 106, came down from 133. Lactate dehydrogenase is 788. Troponin I was less than 0.01, total protein is 5.4. Urine is clean. Toxicology showed benzodiazepines. So far, she has been seen by Infectious Disease. She had CT scan of the abdomen and pelvis, CT scan of the head. She will have consults with Pulmonary, Neurology, GI, Infectious Disease and Endocrinology. Put her on sliding scale coverage. She is back again for gastroparesis, high blood sugars, bilateral pneumonia. Josafat Dent DO MTDD
[2018-04-27 10:57] VITALS: BMI 22.4
[2018-04-27 10:57] LABS: ARTERIAL BLOOD GAS O2 SAT 96.7 % (95-98); ARTERIAL BLOOD GAS PCO2 43 mm/Hg (35-45); ARTERIAL BLOOD GAS PH 7.39 (7.35-7.45); ARTERIAL BLOOD GAS TCO2 27.3 mmol.L (22-28)
[2018-04-27] MEDS ORDERED: Pneumococcal 23-Valent Vaccine IM ONE (10:57)
[2018-04-27] MEDS ORDERED: Influenza Vaccine 60 mcg/0.5 mL SYR (4YR UP) IM ONE (10:57)
--- NOTE | 2018-04-27 11:12 | CON ---
DATE OF CONSULTATION: 04/27/2018 NEUROLOGY CONSULTATION CHIEF COMPLAINT: AMS/unresponsiveness. HISTORY OF PRESENT ILLNESS: This is a 57-year-old woman with a history of longstanding type 2 diabetes mellitus, noncompliant with medications, insulin dependent; history of gastroparesis; COPD; TIA, who presented with nausea and vomiting for several days. She was found to be unresponsive at home today, brought to the ER, and found to be hypoxemic upon her ABG, in addition has some questionable underlying right lower lobe pneumonia likely from aspiration, in addition, was found to be hyperglycemic with a blood sugar of 510, making lethargic. She follows simple commands, moving all extremities. No pronator drift is seen. PAST MEDICAL HISTORY: COPD, type 2 diabetes mellitus, complicated by gastroparesis, TIA, COPD. SOCIAL HISTORY: No illicit drug use, smoking, or EtOH abuse. ALLERGIES: DILAUDID AND MORPHINE. FAMILY HISTORY: Noncontributory. MEDICATIONS: Reviewed by nurses' reconciliation sheet. REVIEW OF SYSTEMS: A 14-point review of systems is negative except as per the HPI. PHYSICAL EXAMINATION VITAL SIGNS: Heart rate is 102, blood pressure 95/51, respiratory rate of 18, oxygen saturation of 94% on nasal cannula. HEENT: Atraumatic, normocephalic. PERRLA. Extraocular muscles intact. LUNGS: Decreased breath sounds bilaterally. HEART: S1 and S2. Normal rate and rhythm. No murmurs, rubs, or gallops. ABDOMEN: Mildly distended epigastric area, otherwise bowel sounds present. EXTREMITIES: No clubbing. No cyanosis. Peripheral pulses 2+ felt bilaterally. NEUROLOGICAL: The patient is alert and oriented to person, place, and year, and lethargic. Recall after 5 minutes is 0/3. Poor attention span. Slow thought process. Cranial nerves II through XII intact. Motor exam: Normal tone. Moves all extremities equally. No pronator drift seen. Sensory: Decreased light touch and pinprick up to the calves bilaterally. Decreased vibration of the toes. DTRs are 2+ throughout, 1 at both knees and ankles. Toes are downgoing bilaterally. Coordination: [id number] is intact. No dysmetria noted. Gait deferred for now. LABORATORY DATA: CAT scan of the abdomen and pelvis showed right lower lobe consolidation . EKG showed prolonged QTC interval. Chest x-ray showed right lower lobe infiltrate. Sodium is 139, potassium 3.5, chloride 104, carbon dioxide 24, BUN of 27, creatinine 1.8, random glucose 510. ASSESSMENT AND PLAN: This is a 57-year-old woman with past medical history of longstanding type 2 diabetes mellitus, insulin dependent; noncompliant with medications; history of gastroparesis; chronic obstructive pulmonary disease; transient ischemic attack, who came to hospital with nausea and vomiting for several days and found to be unresponsive. She is currently in diabetic ketoacidosis, severe dehydration, complicated by complex acid-base disturbances including metabolic acidosis in the setting of community-acquired pneumonia, which could have been secondary to likely aspiration and transient hypoxemia and transient cerebral hypoperfusion to brain causing unresponsiveness. At this time, we recommend: 1. Intravenous fluids, bolus of Ringer's lactate receive with insulin drip. 2. Accu-Chek every 1 hour and be placed in the ICU. 3. Broad-spectrum antibiotics. 4. Get blood cultures, urine cultures, legionella and streptococcal antigens, and Prolactin was ordered. 5. Monitor in the ICU to prevent from further worsening hypoxemia. 6. Keep blood sugars in 140 to 180. 7. Monitor metabolic rate and correct accordingly. 8. Continue to keep her blood pressure between 120s and 130s systolic and diastolic in 80s. 9. Delirium precautions and continue current present medical management. No further neurological workup. Continue ICU management. Jose Knight MD
--- NOTE | 2018-04-27 11:15 | CARD ---
APPROVED REPORT Date of service: 04/27/2018 EKG Measurement Heart [id number] <Conclusion> Sinus rhythm with premature atrial complexes Nonspecific ST and T wave abnormality Prolonged QT Abnormal ECG
[2018-04-27] MEDS ORDERED: Bacitracin 500 Units/gm Oint Foilpak UD ONE (11:26)
[2018-04-27] MEDS ORDERED: Insulin Reg-MEDIUM-Coverage SC SCH (11:30)
[2018-04-27 12:11] LABS: VENOUS BLOOD GAS BASE EXCESS 2.8 mmol/L (0.0-2.0); VENOUS BLOOD GAS PO2 81 mm/Hg (30-55); VENOUS BLOOD PH 7.39 (7.32-7.43)
[2018-04-27] MEDS: Piperacillin/Tazobact 3.375 gm 100 ML IVPB SCH ×2 (14:15→22:08)
--- NOTE | 2018-04-27 14:17 | CP.PCM.CON ---
<Shashi Portillo - Last Filed: 04/27/18 14:11> History of Present Illness - History of Present Illness History of Present Illness: Infectious disease consult note for Dr. Bryan/Dr. Sales service - Trang Portillo PGY3 HPI: Patient is a 57yo female with past medical history of TIA, insulin-depen dent diabetes mellitus type 2, gastroparesis and COPD who presented to [facility] [place] with report of epigastric abdominal pain associated with nausea and non-bilious, non- bloody vomiting for approximately 2 days prior to presentation. She reportedly has had poor oral intake due to feeling ill and was subsequently brought to the ER after having been unresponsive at home. On arrival to the ED, she was noted to have a lactate of 4.2, glucose of 531 with glucosuria and ketonuria. CXR was notable for a right-sided infiltrate. She was subsequently admitted to the ICU for treatment of hyperglycemic state in the setting of right-sided pneumonia. She denied chest pain, palpitations, SOB, fever, chills, cough. 12point ROS as per above otherwise negative PMH: as stated above PSH: toe amputations Allergies: narcotic/dilaudid/morphine Social Hx: Denies tobacco, alcohol and illicit drug use Family Hx: notable for diabetes Past Patient History - Infectious Disease Hx of Infectious Diseases: None - Tetanus Immunizations Tetanus Immunization: Unknown - Past Social History Smoking Status: Never Smoked - CARDIAC Hx Hypertension: Yes - PULMONARY Hx Chronic Obstructive Pulmonary Disease (COPD): Yes - NEUROLOGICAL Hx Transient Ischemic Attacks (TIA): Yes - HEENT Hx HEENT Problems: Yes Hx Cataracts: Yes (bilateral sx) - RENAL Hx Chronic Kidney Disease: No - ENDOCRINE/METABOLIC Hx Diabetes Mellitus Type 2: Yes - HEMATOLOGICAL/ONCOLOGICAL Hx Anemia: Yes (Blood Transfusion) - INTEGUMENTARY Hx Dermatological Problems: Yes Other/Comment: abcess - MUSCULOSKELETAL/RHEUMATOLOGICAL Hx Falls: Yes - GASTROINTESTINAL Other/Comment: gastroparesis. chronic abdominal pain - GENITOURINARY/GYNECOLOGICAL Hx Genitourinary Disorders: No - PSYCHIATRIC Hx Substance Use: No - SURGICAL HISTORY Hx Cholecystectomy: Yes Hx Musculoskeletal Surgery: Yes (right transmetatarsal amputation) - ANESTHESIA Hx Anesthesia: Yes Hx Anesthesia Reactions: No Hx Malignant Hyperthermia: No Meds Allergies/Adverse Reactions: Allergies Allergy/AdvReac Type Severity Reaction Status Date / Time Narcotic/Dilaudid/Morphine AdvReac SHORTNESS Uncoded 04/27/18 02:46 OF BREATH - Medications Medications: Current Medications Lactated Ringer's (Lactated Ringer's) 1,000 mls @ 200 mls/hr IV .Q5H PATTI Last Admin: 04/27/18 09:02 Dose: 200 mls/hr Insulin Human Regular 100 (units/ Sodium Chloride) 100 mls @ 7 mls/hr IV .[id number] PRN; Protocol PRN Reason: TITRATE PER MD ORDER Last Titration: 04/27/18 14:05 Dose: 3 units/hr, 3 mls/hr Vancomycin HCl (Vancomycin 1gm) 1 gm in 250 mls @ 167 mls/hr IVPB Q12H PATTI; Protocol Last Admin: 04/27/18 08:54 Dose: 167 mls/hr Piperacillin Sod/Tazobactam Sod (Zosyn 3.375 In Ns 100ml) 100 mls @ 25 mls/hr IVPB Q8 PATTI; Protocol Stop: 05/04/18 14:01 Doxycycline Hyclate 100 mg/ (Sodium Chloride) 100 mls @ 100 mls/hr IVPB Q12 PATTI; Protocol Potassium Chloride (Potassium Chloride 20 Meq/100 Ml) 20 meq in 100 mls @ 50 mls/hr IVPB Q2H PATTI Stop: 04/27/18 15:14 Last Admin: 04/27/18 12:16 Dose: 50 mls/hr Ketorolac Tromethamine (Toradol) 30 mg IVP Q6H PRN PRN Reason: Pain, moderate (4-7) Levalbuterol HCl (Xopenex) 1.25 mg IH [id number] PATTI Last Admin: 04/27/18 08:54 Dose: 1.25 mg Metoclopramide HCl (Reglan) 10 mg IVP ACHS PATTI Last Admin: 04/27/18 12:20 Dose: 10 mg Ondansetron HCl (Zofran Inj) 4 mg IVP Q4H PRN PRN Reason: Nausea/Vomiting Pantoprazole Sodium (Protonix Inj) 40 mg IVP Q12 PATTI Last Admin: 04/27/18 12:16 Dose: 40 mg Physical Exam - Constitutional Appears: No Acute Distress - Head Exam Head Exam: ATRAUMATIC, NORMAL INSPECTION, NORMOCEPHALIC - Eye Exam Eye Exam: EOMI, PERRL - ENT Exam ENT Exam: Mucous Membranes Dry - Respiratory Exam Respiratory Exam: Clear to Auscultation Bilateral. absent: Rales, Rhonchi, Wheezes - Cardiovascular Exam Cardiovascular Exam: RRR, +S1, +S2. absent: Clicks, Gallop, JVD, Rubs - GI/Abdominal Exam GI & Abdominal Exam: Soft, Tenderness (epigastric). absent: Distended, Firm, Guarding, Rigid - Extremities Exam Extremities exam: Negative for: pedal edema - Neurological Exam Neurological exam: Alert, CN II-XII Intact, Oriented x3 - Skin Skin Exam: Dry, Intact, Normal Color, Warm Results - Vital Signs Recent Vital Signs: Last Vital Signs Temp 98.5 F 04/27/18 12:00 Pulse 87 04/27/18 14:00 Resp 15 04/27/18 14:00 BP 119/60 04/27/18 14:00 Pulse Ox 99 04/27/18 14:00 - Labs Result Diagrams: 04/27/18 07:50 04/27/18 07:50 Labs: Laboratory Results - last 24 hr 04/27/18 04/27/18 04/27/18 02:55 03:11 03:50 WBC 10.4 RBC 4.74 Hgb 12.1 Hct 36.6 MCV 77.2 L MCH 25.5 MCHC 33.1 RDW 13.6 Plt Count 366 MPV 10.2 Gran % Lymph % (Auto) Sampson % (Auto) Eos % (Auto) Baso % (Auto) Gran # Lymph # (Auto) Sampson # (Auto) Eos # (Auto) Baso # (Auto) Neutrophils % (Manual) Band Neutrophils % Lymphocytes % (Manual) Monocytes % (Manual) Platelet Evaluation PT 10.5 INR 0.92 APTT 27.5 pCO2 pO2 HCO3 ABG pH ABG Total CO2 ABG O2 Saturation ABG O2 Content ABG Base Excess ABG Hemoglobin ABG Carboxyhemoglobin POC ABG HHb (Measured) ABG Methemoglobin ABG O2 Capacity ABG Potassium VBG pH VBG pCO2 VBG HCO3 VBG Total CO2 VBG O2 Sat (Calc) VBG Base Excess VBG Potassium Hgb O2 Saturation Glucose Lactate FiO2 Sodium Potassium Chloride Carbon Dioxide Anion Gap BUN Creatinine Est GFR ( Amer) Est GFR (Non-Af Amer) POC Glucose (mg/dL) 403 H* Random Glucose Calcium Phosphorus Magnesium Total Bilirubin AST ALT Alkaline Phosphatase Lactate Dehydrogenase Total Creatine Kinase Troponin I Total Protein Albumin Globulin Albumin/Globulin Ratio Procalcitonin Arterial Blood Potassium Venous Blood Potassium Urine Color Urine Appearance Urine pH Ur Specific [place] Urine Protein Urine Glucose (UA) Urine Ketones Urine Blood Urine Nitrate Urine Bilirubin Urine Urobilinogen Ur Leukocyte Esterase Urine RBC Urine WBC Ur Epithelial Cells Urine Bacteria Urine Opiates Screen Urine Methadone Screen Ur Barbiturates Screen Ur Phencyclidine Scrn Ur Amphetamines Screen U Benzodiazepines Scrn U Oth Cocaine Metabols U Cannabinoids Screen Influenza Typ A,B (EIA) Ur L.pneumophila Ag 04/27/18 04/27/18 04/27/18 03:50 03:50 05:13 WBC RBC Hgb Hct MCV MCH MCHC RDW Plt Count MPV Gran % Lymph % (Auto) Sampson % (Auto) Eos % (Auto) Baso % (Auto) Gran # Lymph # (Auto) Sampson # (Auto) Eos # (Auto) Baso # (Auto) Neutrophils % (Manual) Band Neutrophils % Lymphocytes % (Manual) Monocytes % (Manual) Platelet Evaluation PT INR APTT pCO2 pO2 HCO3 ABG pH ABG Total CO2 ABG O2 Saturation ABG O2 Content ABG Base Excess ABG Hemoglobin ABG Carboxyhemoglobin POC ABG HHb (Measured) ABG Methemoglobin ABG O2 Capacity ABG Potassium VBG pH VBG pCO2 VBG HCO3 VBG Total CO2 VBG O2 Sat (Calc) VBG Base Excess VBG Potassium Hgb O2 Saturation Glucose Lactate FiO2 Sodium 136 Potassium 3.8 Chloride 97 L Carbon Dioxide 31 Anion Gap 11 BUN 22 H Creatinine 0.7 Est GFR ( Amer) > 60 Est GFR (Non-Af Amer) > 60 POC Glucose (mg/dL) Random Glucose 491 H* D Calcium 9.0 Phosphorus Magnesium Total Bilirubin 0.4 AST 29 ALT 36 Alkaline Phosphatase 133 H Lactate Dehydrogenase 788 H Total Creatine Kinase 150 Troponin I < 0.01 D Total Protein 6.0 Albumin 3.1 Globulin 2.9 Albumin/Globulin Ratio 1.0 L Procalcitonin < 0.05 L Arterial Blood Potassium Venous Blood Potassium Urine Color Urine Appearance Urine pH Ur Specific [place] Urine Protein Urine Glucose (UA) Urine Ketones Urine Blood Urine Nitrate Urine Bilirubin Urine Urobilinogen Ur Leukocyte Esterase Urine RBC Urine WBC Ur Epithelial Cells Urine Bacteria Urine Opiates Screen Negative Urine Methadone Screen Negative Ur Barbiturates Screen Negative Ur Phencyclidine Scrn Negative Ur Amphetamines Screen Negative U Benzodiazepines Scrn Positive H U Oth Cocaine Metabols Negative U Cannabinoids Screen Negative Influenza Typ A,B (EIA) Ur L.pneumophila Ag 04/27/18 04/27/18 04/27/18 05:35 05:55 07:50 WBC 11.0 RBC 4.21 Hgb 10.6 L Hct 33.3 L MCV 79.1 L MCH 25.2 MCHC 31.8 RDW 13.8 Plt Count 318 MPV 9.8 Gran % 91.5 H Lymph % (Auto) 6.1 L Sampson % (Auto) 2.3 Eos % (Auto) 0.0 L Baso % (Auto) 0.1 Gran # 10.03 H Lymph # (Auto) 0.7 L Sampson # (Auto) 0.3 Eos # (Auto) 0.0 Baso # (Auto) 0.01 Neutrophils % (Manual) 87 H Band Neutrophils % 5 H Lymphocytes % (Manual) 6 L Monocytes % (Manual) 2 Platelet Evaluation Normal PT INR APTT pCO2 45 pO2 62.0 L HCO3 29.2 H ABG pH 7.42 ABG Total CO2 30.6 H ABG O2 Saturation 92.8 L ABG O2 Content 13.9 L ABG Base Excess 4.1 H ABG Hemoglobin 10.8 L ABG Carboxyhemoglobin 1.3 POC ABG HHb (Measured) 7.1 H ABG Methemoglobin 0.0 ABG O2 Capacity 15.0 L ABG Potassium VBG pH VBG pCO2 VBG HCO3 VBG Total CO2 VBG O2 Sat (Calc) VBG Base Excess VBG Potassium Hgb O2 Saturation 91.6 L Glucose Lactate FiO2 100.0 Sodium Potassium Chloride Carbon Dioxide Anion Gap BUN Creatinine Est GFR ( Amer) Est GFR (Non-Af Amer) POC Glucose (mg/dL) Random Glucose Calcium Phosphorus Magnesium Total Bilirubin AST ALT Alkaline Phosphatase Lactate Dehydrogenase Total Creatine Kinase Troponin I Total Protein Albumin Globulin Albumin/Globulin Ratio Procalcitonin Arterial Blood Potassium Venous Blood Potassium Urine Color Yellow Urine Appearance Clear Urine pH 7.5 Ur Specific [place] 1.020 Urine Protein >=300 H Urine Glucose (UA) >=1000 Urine Ketones 15 H Urine Blood Small H Urine Nitrate Negative Urine Bilirubin Negative Urine Urobilinogen 0.2 Ur Leukocyte Esterase Negative Urine RBC 2 - 5 Urine WBC 0 - 2 Ur Epithelial Cells 0 - 2 Urine Bacteria Rare Urine Opiates Screen Urine Methadone Screen Ur Barbiturates Screen Ur Phencyclidine Scrn Ur Amphetamines Screen U Benzodiazepines Scrn U Oth Cocaine Metabols U Cannabinoids Screen Influenza Typ A,B (EIA) Ur L.pneumophila Ag 04/27/18 04/27/18 04/27/18 07:50 08:10 08:10 WBC RBC Hgb Hct MCV MCH MCHC RDW Plt Count MPV Gran % Lymph % (Auto) Sampson % (Auto) Eos % (Auto) Baso % (Auto) Gran # Lymph # (Auto) Sampson # (Auto) Eos # (Auto) Baso # (Auto) Neutrophils % (Manual) Band Neutrophils % Lymphocytes % (Manual) Monocytes % (Manual) Platelet Evaluation PT INR APTT pCO2 pO2 88 H HCO3 ABG pH ABG Total CO2 ABG O2 Saturation ABG O2 Content ABG Base Excess ABG Hemoglobin ABG Carboxyhemoglobin POC ABG HHb (Measured) ABG Methemoglobin ABG O2 Capacity ABG Potassium VBG pH 7.29 L VBG pCO2 51.0 VBG HCO3 24.5 VBG Total CO2 26.1 VBG O2 Sat (Calc) 95.9 H VBG Base Excess -2.7 L VBG Potassium 3.1 L Hgb O2 Saturation Glucose 534 H* D Lactate 4.2 H* FiO2 21.0 Sodium 139 140.0 Potassium 3.5 L Chloride 104 102.0 Carbon Dioxide 24 Anion Gap 15 BUN 27 H Creatinine 0.8 Est GFR ( Amer) > 60 Est GFR (Non-Af Amer) > 60 POC Glucose (mg/dL) Random Glucose 510 H* Calcium 8.5 Phosphorus 4.9 H Magnesium 1.7 Total Bilirubin 0.3 AST 33 ALT 35 Alkaline Phosphatase 106 Lactate Dehydrogenase Total Creatine Kinase Troponin I Total Protein 5.4 L Albumin 2.8 L Globulin 2.6 Albumin/Globulin Ratio 1.1 Procalcitonin Arterial Blood Potassium Venous Blood Potassium 3.1 L Urine Color Urine Appearance Urine pH Ur Specific [place] Urine Protein Urine Glucose (UA) Urine Ketones Urine Blood Urine Nitrate Urine Bilirubin Urine Urobilinogen Ur Leukocyte Esterase Urine RBC Urine WBC Ur Epithelial Cells Urine Bacteria Urine Opiates Screen Urine Methadone Screen Ur Barbiturates Screen Ur Phencyclidine Scrn Ur Amphetamines Screen U Benzodiazepines Scrn U Oth Cocaine Metabols U Cannabinoids Screen Influenza Typ A,B (EIA) Negative for flu a/b Ur L.pneumophila Ag 04/27/18 04/27/18 04/27/18 08:30 09:27 10:05 WBC RBC Hgb Hct MCV MCH MCHC RDW Plt Count MPV Gran % Lymph % (Auto) Sampson % (Auto) Eos % (Auto) Baso % (Auto) Gran # Lymph # (Auto) Sampson # (Auto) Eos # (Auto) Baso # (Auto) Neutrophils % (Manual) Band Neutrophils % Lymphocytes % (Manual) Monocytes % (Manual) Platelet Evaluation PT INR APTT pCO2 pO2 HCO3 ABG pH ABG Total CO2 ABG O2 Saturation ABG O2 Content ABG Base Excess ABG Hemoglobin ABG Carboxyhemoglobin POC ABG HHb (Measured) ABG Methemoglobin ABG O2 Capacity ABG Potassium VBG pH VBG pCO2 VBG HCO3 VBG Total CO2 VBG O2 Sat (Calc) VBG Base Excess VBG Potassium Hgb O2 Saturation Glucose Lactate FiO2 Sodium Potassium Chloride Carbon Dioxide Anion Gap BUN Creatinine Est GFR ( Amer) Est GFR (Non-Af Amer) POC Glucose (mg/dL) 471 H* 332 H Random Glucose Calcium Phosphorus Magnesium Total Bilirubin AST ALT Alkaline Phosphatase Lactate Dehydrogenase Total Creatine Kinase Troponin I Total Protein Albumin Globulin Albumin/Globulin Ratio Procalcitonin Arterial Blood Potassium Venous Blood Potassium Urine Color Urine Appearance Urine pH Ur Specific [place] Urine Protein Urine Glucose (UA) Urine Ketones Urine Blood Urine Nitrate Urine Bilirubin Urine Urobilinogen Ur Leukocyte Esterase Urine RBC Urine WBC Ur Epithelial Cells Urine Bacteria Urine Opiates Screen Urine Methadone Screen Ur Barbiturates Screen Ur Phencyclidine Scrn Ur Amphetamines Screen U Benzodiazepines Scrn U Oth Cocaine Metabols U Cannabinoids Screen Influenza Typ A,B (EIA) Ur L.pneumophila Ag Negative 04/27/18 04/27/18 04/27/18 10:50 11:05 12:03 WBC RBC Hgb Hct MCV MCH MCHC RDW Plt Count MPV Gran % Lymph % (Auto) Sampson % (Auto) Eos % (Auto) Baso % (Auto) Gran # Lymph # (Auto) Sampson # (Auto) Eos # (Auto) Baso # (Auto) Neutrophils % (Manual) Band Neutrophils % Lymphocytes % (Manual) Monocytes % (Manual) Platelet Evaluation PT INR APTT pCO2 43 pO2 87.0 HCO3 26.0 ABG pH 7.39 ABG Total CO2 27.3 ABG O2 Saturation 96.7 ABG O2 Content ABG Base Excess 0.8 ABG Hemoglobin ABG Carboxyhemoglobin POC ABG HHb (Measured) ABG Methemoglobin ABG O2 Capacity ABG Potassium 2.7 L VBG pH VBG pCO2 VBG HCO3 VBG Total CO2 VBG O2 Sat (Calc) VBG Base Excess VBG Potassium Hgb O2 Saturation Glucose 313 H Lactate 3.7 H FiO2 28.0 Sodium 141.0 Potassium Chloride 108.0 H Carbon Dioxide Anion Gap BUN Creatinine Est GFR ( Amer) Est GFR (Non-Af Amer) POC Glucose (mg/dL) 300 H 252 H Random Glucose Calcium Phosphorus Magnesium Total Bilirubin AST ALT Alkaline Phosphatase Lactate Dehydrogenase Total Creatine Kinase Troponin I Total Protein Albumin Globulin Albumin/Globulin Ratio Procalcitonin Arterial Blood Potassium 2.7 L Venous Blood Potassium Urine Color Urine Appearance Urine pH Ur Specific [place] Urine Protein Urine Glucose (UA) Urine Ketones Urine Blood Urine Nitrate Urine Bilirubin Urine Urobilinogen Ur Leukocyte Esterase Urine RBC Urine WBC Ur Epithelial Cells Urine Bacteria Urine Opiates Screen Urine Methadone Screen Ur Barbiturates Screen Ur Phencyclidine Scrn Ur Amphetamines Screen U Benzodiazepines Scrn U Oth Cocaine Metabols U Cannabinoids Screen Influenza Typ A,B (EIA) Ur L.pneumophila Ag 04/27/18 04/27/18 12:05 14:04 WBC RBC Hgb Hct MCV MCH MCHC RDW Plt Count MPV Gran % Lymph % (Auto) Sampson % (Auto) Eos % (Auto) Baso % (Auto) Gran # Lymph # (Auto) Sampson # (Auto) Eos # (Auto) Baso # (Auto) Neutrophils % (Manual) Band Neutrophils % Lymphocytes % (Manual) Monocytes % (Manual) Platelet Evaluation PT INR APTT pCO2 pO2 81 H HCO3 ABG pH ABG Total CO2 ABG O2 Saturation ABG O2 Content ABG Base Excess ABG Hemoglobin ABG Carboxyhemoglobin POC ABG HHb (Measured) ABG Methemoglobin ABG O2 Capacity ABG Potassium VBG pH 7.39 VBG pCO2 47.0 VBG HCO3 28.5 H VBG Total CO2 29.9 H VBG O2 Sat (Calc) 96.3 H VBG Base Excess 2.8 H VBG Potassium 2.8 L Hgb O2 Saturation Glucose 262 H Lactate 3.7 H FiO2 21.0 Sodium 141.0 Potassium Chloride 106.0 Carbon Dioxide Anion Gap BUN Creatinine Est GFR ( Amer) Est GFR (Non-Af Amer) POC Glucose (mg/dL) 131 H Random Glucose Calcium Phosphorus Magnesium Total Bilirubin AST ALT Alkaline Phosphatase Lactate Dehydrogenase Total Creatine Kinase Troponin I Total Protein Albumin Globulin Albumin/Globulin Ratio Procalcitonin Arterial Blood Potassium Venous Blood Potassium 2.8 L Urine Color Urine Appearance Urine pH Ur Specific [place] Urine Protein Urine Glucose (UA) Urine Ketones Urine Blood Urine Nitrate Urine Bilirubin Urine Urobilinogen Ur Leukocyte Esterase Urine RBC Urine WBC Ur Epithelial Cells Urine Bacteria Urine Opiates Screen Urine Methadone Screen Ur Barbiturates Screen Ur Phencyclidine Scrn Ur Amphetamines Screen U Benzodiazepines Scrn U Oth Cocaine Metabols U Cannabinoids Screen Influenza Typ A,B (EIA) Ur L.pneumophila Ag Assessment & Plan - Assessment and Plan (Free Text) Plan: 57yo female with history of DM type 2, COPD, TIA, gastroparesis presents with epigastric abdominal pain associated with nausea/vomiting secondary to hyperglycemic hyperosmolar state in the setting of likely aspiration pneumonia 1. Hyperglycemic hyperosmolar state 2. right-sided PNA likely secondary to aspiration 3. Hx of gastroparesis 4. Hx of insulin dependent DM type 2 , noncompliant with medications 5. COPD 6. TIA -Patient started on vancomycin, zosyn and doxycyline for broad-spectrum coverage -Pending pancultures including influenza, MRSA screen, strep pneumo antigen and legionella urine antigen -Procalcitonin pending -Continue present ICU management for HHS including aggressive IVF and insulin drip -HIV and RPR previously negative -CXR was reviewed and notable for Right-sided infiltrate -CT abd/pelvis reviewed -Further recommendations per clinical course and results of testing Patient seen and case discussed/reviewed with attending, Dr. Bryan <Ollie Bryan - Last Filed: 04/27/18 16:55> Meds - Medications Medications: Current Medications Dextrose (Dextrose 50% Inj) 0 ml IV STAT PRN; Protocol PRN Reason: Hypoglycemia Protocol Last Admin: 04/27/18 16:09 Dose: 50 ml Lactated Ringer's (Lactated Ringer's) 1,000 mls @ 200 mls/hr IV .Q5H PATTI Last Admin: 04/27/18 09:02 Dose: 200 mls/hr Vancomycin HCl (Vancomycin 1gm) 1 gm in 250 mls @ 167 mls/hr IVPB Q12H PATTI; Pr otocol Last Admin: 04/27/18 08:54 Dose: 167 mls/hr Piperacillin Sod/Tazobactam Sod (Zosyn 3.375 In Ns 100ml) 100 mls @ 25 mls/hr IVPB Q8 PATTI; Protocol Stop: 05/04/18 14:01 Last Admin: 04/27/18 14:15 Dose: 25 mls/hr Doxycycline Hyclate 100 mg/ (Sodium Chloride) 100 mls @ 100 mls/hr IVPB Q12 SC H; Protocol Dextrose (Dextrose 5% In Water 1000 Ml) 1,000 mls @ 0 mls/hr IV .Q0M PRN; Protocol PRN Reason: Hypoglycemia Protocol Dextrose (Dextrose 5% In Water 1000 Ml) 1,000 mls @ 75 mls/hr IV .[id number] PATTI Potassium Chloride (Potassium Chloride 20 Meq/100 Ml) 20 meq in 100 mls @ 50 mls/hr IVPB ONCE ONE Stop: 04/27/18 18:51 Insulin Human Lispro (Humalog Med) 0 units SC Q4H PATTI; Protocol Last Admin: 04/27/18 16:00 Dose: Not Given Ketorolac Tromethamine (Toradol) 30 mg IVP Q6H PRN PRN Reason: Pain, moderate (4-7) Last Admin: 04/27/18 16:10 Dose: 30 mg Levalbuterol HCl (Xopenex) 1.25 mg IH [id number] PATTI Last Admin: 04/27/18 08:54 Dose: 1.25 mg Metoclopramide HCl (Reglan) 10 mg IVP ACHS PATTI Last Admin: 04/27/18 12:20 Dose: 10 mg Ondansetron HCl (Zofran Inj) 4 mg IVP Q4H PRN PRN Reason: Nausea/Vomiting Pantoprazole Sodium (Protonix Inj) 40 mg IVP Q12 PATTI Last Admin: 04/27/18 12:16 Dose: 40 mg Results - Vital Signs Recent Vital Signs: Last Vital Signs Temp 99.2 F 04/27/18 16:00 Pulse 109 H 04/27/18 16:20 Resp 29 H 04/27/18 16:20 BP 135/96 H 04/27/18 16:00 Pulse Ox 97 04/27/18 16:20 - Labs Result Diagrams: 04/27/18 07:50 04/27/18 13:50 Labs: Laboratory Results - last 24 hr 04/27/18 04/27/18 04/27/18 02:55 03:11 03:50 WBC 10.4 RBC 4.74 Hgb 12.1 Hct 36.6 MCV 77.2 L MCH 25.5 MCHC 33.1 RDW 13.6 Plt Count 366 MPV 10.2 Gran % Lymph % (Auto) Sampson % (Auto) Eos % (Auto) Baso % (Auto) Gran # Lymph # (Auto) Sampson # (Auto) Eos # (Auto) Baso # (Auto) Neutrophils % (Manual) Band Neutrophils % Lymphocytes % (Manual) Monocytes % (Manual) Platelet Evaluation PT 10.5 INR 0.92 APTT 27.5 pCO2 pO2 HCO3 ABG pH ABG Total CO2 ABG O2 Saturation ABG O2 Content ABG Base Excess ABG Hemoglobin ABG Carboxyhemoglobin POC ABG HHb (Measured) ABG Methemoglobin ABG O2 Capacity ABG Potassium VBG pH VBG pCO2 VBG HCO3 VBG Total CO2 VBG O2 Sat (Calc) VBG Base Excess VBG Potassium Hgb O2 Saturation Glucose Lactate FiO2 Sodium Potassium Chloride Carbon Dioxide Anion Gap BUN Creatinine Est GFR ( Amer) Est GFR (Non-Af Amer) POC Glucose (mg/dL) 403 H* Random Glucose Calcium Phosphorus Magnesium Total Bilirubin AST ALT Alkaline Phosphatase Lactate Dehydrogenase Total Creatine Kinase Troponin I Total Protein Albumin Globulin Albumin/Globulin Ratio Procalcitonin Arterial Blood Potassium Venous Blood Potassium Urine Color Urine Appearance Urine pH Ur Specific [place] Urine Protein Urine Glucose (UA) Urine Ketones Urine Blood Urine Nitrate Urine Bilirubin Urine Urobilinogen Ur Leukocyte Esterase Urine RBC Urine WBC Ur Epithelial Cells Urine Bacteria Urine Opiates Screen Urine Methadone Screen Ur Barbiturates Screen Ur Phencyclidine Scrn Ur Amphetamines Screen U Benzodiazepines Scrn U Oth Cocaine Metabols U Cannabinoids Screen Influenza Typ A,B (EIA) Ur L.pneumophila Ag 04/27/18 04/27/18 04/27/18 03:50 03:50 05:13 WBC RBC Hgb Hct MCV MCH MCHC RDW Plt Count MPV Gran % Lymph % (Auto) Sampson % (Auto) Eos % (Auto) Baso % (Auto) Gran # Lymph # (Auto) Sampson # (Auto) Eos # (Auto) Baso # (Auto) Neutrophils % (Manual) Band Neutrophils % Lymphocytes % (Manual) Monocytes % (Manual) Platelet Evaluation PT INR APTT pCO2 pO2 HCO3 ABG pH ABG Total CO2 ABG O2 Saturation ABG O2 Content ABG Base Excess ABG Hemoglobin ABG Carboxyhemoglobin POC ABG HHb (Measured) ABG Methemoglobin ABG O2 Capacity ABG Potassium VBG pH VBG pCO2 VBG HCO3 VBG Total CO2 VBG O2 Sat (Calc) VBG Base Excess VBG Potassium Hgb O2 Saturation Glucose Lactate FiO2 Sodium 136 Potassium 3.8 Chloride 97 L Carbon Dioxide 31 Anion Gap 11 BUN 22 H Creatinine 0.7 Est GFR ( Amer) > 60 Est GFR (Non-Af Amer) > 60 POC Glucose (mg/dL) Random Glucose 491 H* D Calcium 9.0 Phosphorus Magnesium Total Bilirubin 0.4 AST 29 ALT 36 Alkaline Phosphatase 133 H Lactate Dehydrogenase 788 H Total Creatine Kinase 150 Troponin I < 0.01 D Total Protein 6.0 Albumin 3.1 Globulin 2.9 Albumin/Globulin Ratio 1.0 L Procalcitonin < 0.05 L Arterial Blood Potassium Venous Blood Potassium Urine Color Urine Appearance Urine pH Ur Specific [place] Urine Protein Urine Glucose (UA) Urine Ketones Urine Blood Urine Nitrate Urine Bilirubin Urine Urobilinogen Ur Leukocyte Esterase Urine RBC Urine WBC Ur Epithelial Cells Urine Bacteria Urine Opiates Screen Negative Urine Methadone Screen Negative Ur Barbiturates Screen Negative Ur Phencyclidine Scrn Negative Ur Amphetamines Screen Negative U Benzodiazepines Scrn Positive H U Oth Cocaine Metabols Negative U Cannabinoids Screen Negative Influenza Typ A,B (EIA) Ur L.pneumophila Ag 04/27/18 04/27/18 04/27/18 05:35 05:55 07:50 WBC 11.0 RBC 4.21 Hgb 10.6 L Hct 33.3 L MCV 79.1 L MCH 25.2 MCHC 31.8 RDW 13.8 Plt Count 318 MPV 9.8 Gran % 91.5 H Lymph % (Auto) 6.1 L Sampson % (Auto) 2.3 Eos % (Auto) 0.0 L Baso % (Auto) 0.1 Gran # 10.03 H Lymph # (Auto) 0.7 L Sampson # (Auto) 0.3 Eos # (Auto) 0.0 Baso # (Auto) 0.01 Neutrophils % (Manual) 87 H Band Neutrophils % 5 H Lymphocytes % (Manual) 6 L Monocytes % (Manual) 2 Platelet Evaluation Normal PT INR APTT pCO2 45 pO2 62.0 L HCO3 29.2 H ABG pH 7.42 ABG Total CO2 30.6 H ABG O2 Saturation 92.8 L ABG O2 Content 13.9 L ABG Base Excess 4.1 H ABG Hemoglobin 10.8 L ABG Carboxyhemoglobin 1.3 POC ABG HHb (Measured) 7.1 H ABG Methemoglobin 0.0 ABG O2 Capacity 15.0 L ABG Potassium VBG pH VBG pCO2 VBG HCO3 VBG Total CO2 VBG O2 Sat (Calc) VBG Base Excess VBG Potassium Hgb O2 Saturation 91.6 L Glucose Lactate FiO2 100.0 Sodium Potassium Chloride Carbon Dioxide Anion Gap BUN Creatinine Est GFR ( Amer) Est GFR (Non-Af Amer) POC Glucose (mg/dL) Random Glucose Calcium Phosphorus Magnesium Total Bilirubin AST ALT Alkaline Phosphatase Lactate Dehydrogenase Total Creatine Kinase Troponin I Total Protein Albumin Globulin Albumin/Globulin Ratio Procalcitonin Arterial Blood Potassium Venous Blood Potassium Urine Color Yellow Urine Appearance Clear Urine pH 7.5 Ur Specific [place] 1.020 Urine Protein >=300 H Urine Glucose (UA) >=1000 Urine Ketones 15 H Urine Blood Small H Urine Nitrate Negative Urine Bilirubin Negative Urine Urobilinogen 0.2 Ur Leukocyte Esterase Negative Urine RBC 2 - 5 Urine WBC 0 - 2 Ur Epithelial Cells 0 - 2 Urine Bacteria Rare Urine Opiates Screen Urine Methadone Screen Ur Barbiturates Screen Ur Phencyclidine Scrn Ur Amphetamines Screen U Benzodiazepines Scrn U Oth Cocaine Metabols U Cannabinoids Screen Influenza Typ A,B (EIA) Ur L.pneumophila Ag 04/27/18 04/27/18 04/27/18 07:50 08:10 08:10 WBC RBC Hgb Hct MCV MCH MCHC RDW Plt Count MPV Gran % Lymph % (Auto) Sampson % (Auto) Eos % (Auto) Baso % (Auto) Gran # Lymph # (Auto) Sampson # (Auto) Eos # (Auto) Baso # (Auto) Neutrophils % (Manual) Band Neutrophils % Lymphocytes % (Manual) Monocytes % (Manual) Platelet Evaluation PT INR APTT pCO2 pO2 88 H HCO3 ABG pH ABG Total CO2 ABG O2 Saturation ABG O2 Content ABG Base Excess ABG Hemoglobin ABG Carboxyhemoglobin POC ABG HHb (Measured) ABG Methemoglobin ABG O2 Capacity ABG Potassium VBG pH 7.29 L VBG pCO2 51.0 VBG HCO3 24.5 VBG Total CO2 26.1 VBG O2 Sat (Calc) 95.9 H VBG Base Excess -2.7 L VBG Potassium 3.1 L Hgb O2 Saturation Glucose 534 H* D Lactate 4.2 H* FiO2 21.0 Sodium 139 140.0 Potassium 3.5 L Chloride 104 102.0 Carbon Dioxide 24 Anion Gap 15 BUN 27 H Creatinine 0.8 Est GFR ( Amer) > 60 Est GFR (Non-Af Amer) > 60 POC Glucose (mg/dL) Random Glucose 510 H* Calcium 8.5 Phosphorus 4.9 H Magnesium 1.7 Total Bilirubin 0.3 AST 33 ALT 35 Alkaline Phosphatase 106 Lactate Dehydrogenase Total Creatine Kinase Troponin I Total Protein 5.4 L Albumin 2.8 L Globulin 2.6 Albumin/Globulin Ratio 1.1 Procalcitonin Arterial Blood Potassium Venous Blood Potassium 3.1 L Urine Color Urine Appearance Urine pH Ur Specific [place] Urine Protein Urine Glucose (UA) Urine Ketones Urine Blood Urine Nitrate Urine Bilirubin Urine Urobilinogen Ur Leukocyte Esterase Urine RBC Urine WBC Ur Epithelial Cells Urine Bacteria Urine Opiates Screen Urine Methadone Screen Ur Barbiturates Screen Ur Phencyclidine Scrn Ur Amphetamines Screen U Benzodiazepines Scrn U Oth Cocaine Metabols U Cannabinoids Screen Influenza Typ A,B (EIA) Negative for flu a/b Ur L.pneumophila Ag 04/27/18 04/27/18 04/27/18 08:30 09:27 10:05 WBC RBC Hgb Hct MCV MCH MCHC RDW Plt Count MPV Gran % Lymph % (Auto) Sampson % (Auto) Eos % (Auto) Baso % (Auto) Gran # Lymph # (Auto) Sampson # (Auto) Eos # (Auto) Baso # (Auto) Neutrophils % (Manual) Band Neutrophils % Lymphocytes % (Manual) Monocytes % (Manual) Platelet Evaluation PT INR APTT pCO2 pO2 HCO3 ABG pH ABG Total CO2 ABG O2 Saturation ABG O2 Content ABG Base Excess ABG Hemoglobin ABG Carboxyhemoglobin POC ABG HHb (Measured) ABG Methemoglobin ABG O2 Capacity ABG Potassium VBG pH VBG pCO2 VBG HCO3 VBG Total CO2 VBG O2 Sat (Calc) VBG Base Excess VBG Potassium Hgb O2 Saturation Glucose Lactate FiO2 Sodium Potassium Chloride Carbon Dioxide Anion Gap BUN Creatinine Est GFR ( Amer) Est GFR (Non-Af Amer) POC Glucose (mg/dL) 471 H* 332 H Random Glucose Calcium Phosphorus Magnesium Total Bilirubin AST ALT Alkaline Phosphatase Lactate Dehydrogenase Total Creatine Kinase Troponin I Total Protein Albumin Globulin Albumin/Globulin Ratio Procalcitonin Arterial Blood Potassium Venous Blood Potassium Urine Color Urine Appearance Urine pH Ur Specific [place] Urine Protein Urine Glucose (UA) Urine Ketones Urine Blood Urine Nitrate Urine Bilirubin Urine Urobilinogen Ur Leukocyte Esterase Urine RBC Urine WBC Ur Epithelial Cells Urine Bacteria Urine Opiates Screen Urine Methadone Screen Ur Barbiturates Screen Ur Phencyclidine Scrn Ur Amphetamines Screen U Benzodiazepines Scrn U Oth Cocaine Metabols U Cannabinoids Screen Influenza Typ A,B (EIA) Ur L.pneumophila Ag Negative 04/27/18 04/27/18 04/27/18 10:50 11:05 12:03 WBC RBC Hgb Hct MCV MCH MCHC RDW Plt Count MPV Gran % Lymph % (Auto) Sampson % (Auto) Eos % (Auto) Baso % (Auto) Gran # Lymph # (Auto) Sampson # (Auto) Eos # (Auto) Baso # (Auto) Neutrophils % (Manual) Band Neutrophils % Lymphocytes % (Manual) Monocytes % (Manual) Platelet Evaluation PT INR APTT pCO2 43 pO2 87.0 HCO3 26.0 ABG pH 7.39 ABG Total CO2 27.3 ABG O2 Saturation 96.7 ABG O2 Content ABG Base Excess 0.8 ABG Hemoglobin ABG Carboxyhemoglobin POC ABG HHb (Measured) ABG Methemoglobin ABG O2 Capacity ABG Potassium 2.7 L VBG pH VBG pCO2 VBG HCO3 VBG Total CO2 VBG O2 Sat (Calc) VBG Base Excess VBG Potassium Hgb O2 Saturation Glucose 313 H Lactate 3.7 H FiO2 28.0 Sodium 141.0 Potassium Chloride 108.0 H Carbon Dioxide Anion Gap BUN Creatinine Est GFR ( Amer) Est GFR (Non-Af Amer) POC Glucose (mg/dL) 300 H 252 H Random Glucose Calcium Phosphorus Magnesium Total Bilirubin AST ALT Alkaline Phosphatase Lactate Dehydrogenase Total Creatine Kinase Troponin I Total Protein Albumin Globulin Albumin/Globulin Ratio Procalcitonin Arterial Blood Potassium 2.7 L Venous Blood Potassium Urine Color Urine Appearance Urine pH Ur Specific [place] Urine Protein Urine Glucose (UA) Urine Ketones Urine Blood Urine Nitrate Urine Bilirubin Urine Urobilinogen Ur Leukocyte Esterase Urine RBC Urine WBC Ur Epithelial Cells Urine Bacteria Urine Opiates Screen Urine Methadone Screen Ur Barbiturates Screen Ur Phencyclidine Scrn Ur Amphetamines Screen U Benzodiazepines Scrn U Oth Cocaine Metabols U Cannabinoids Screen Influenza Typ A,B (EIA) Ur L.pneumophila Ag 04/27/18 04/27/18 04/27/18 12:05 13:50 14:04 WBC RBC Hgb Hct MCV MCH MCHC RDW Plt Count MPV Gran % Lymph % (Auto) Sampson % (Auto) Eos % (Auto) Baso % (Auto) Gran # Lymph # (Auto) Sampson # (Auto) Eos # (Auto) Baso # (Auto) Neutrophils % (Manual) Band Neutrophils % Lymphocytes % (Manual) Monocytes % (Manual) Platelet Evaluation PT INR APTT pCO2 pO2 81 H HCO3 ABG pH ABG Total CO2 ABG O2 Saturation ABG O2 Content ABG Base Excess ABG Hemoglobin ABG Carboxyhemoglobin POC ABG HHb (Measured) ABG Methemoglobin ABG O2 Capacity ABG Potassium VBG pH 7.39 VBG pCO2 47.0 VBG HCO3 28.5 H VBG Total CO2 29.9 H VBG O2 Sat (Calc) 96.3 H VBG Base Excess 2.8 H VBG Potassium 2.8 L Hgb O2 Saturation Glucose 262 H Lactate 3.7 H FiO2 21.0 Sodium 141.0 138 Potassium 3.6 Chloride 106.0 108 H Carbon Dioxide 28 Anion Gap 5 L BUN 30 H Creatinine 0.9 Est GFR ( Amer) > 60 Est GFR (Non-Af Amer) > 60 POC Glucose (mg/dL) 131 H Random Glucose 127 H Calcium 8.1 L Phosphorus Magnesium Total Bilirubin 0.2 AST 22 ALT 29 Alkaline Phosphatase 77 Lactate Dehydrogenase Total Creatine Kinase Troponin I Total Protein 4.9 L Albumin 2.4 L Globulin 2.5 Albumin/Globulin Ratio 1.0 L Procalcitonin Arterial Blood Potassium Venous Blood Potassium 2.8 L Urine Color Urine Appearance Urine pH Ur Specific [place] Urine Protein Urine Glucose (UA) Urine Ketones Urine Blood Urine Nitrate Urine Bilirubin Urine Urobilinogen Ur Leukocyte Esterase Urine RBC Urine WBC Ur Epithelial Cells Urine Bacteria Urine Opiates Screen Urine Methadone Screen Ur Barbiturates Screen Ur Phencyclidine Scrn Ur Amphetamines Screen U Benzodiazepines Scrn U Oth Cocaine Metabols U Cannabinoids Screen Influenza Typ A,B (EIA) Ur L.pneumophila Ag 04/27/18 04/27/18 04/27/18 14:57 16:04 16:43 WBC RBC Hgb Hct MCV MCH MCHC RDW Plt Count MPV Gran % Lymph % (Auto) Sampson % (Auto) Eos % (Auto) Baso % (Auto) Gran # Lymph # (Auto) Sampson # (Auto) Eos # (Auto) Baso # (Auto) Neutrophils % (Manual) Band Neutrophils % Lymphocytes % (Manual) Monocytes % (Manual) Platelet Evaluation PT INR APTT pCO2 pO2 HCO3 ABG pH ABG Total CO2 ABG O2 Saturation ABG O2 Content ABG Base Excess ABG Hemoglobin ABG Carboxyhemoglobin POC ABG HHb (Measured) ABG Methemoglobin ABG O2 Capacity ABG Potassium VBG pH VBG pCO2 VBG HCO3 VBG Total CO2 VBG O2 Sat (Calc) VBG Base Excess VBG Potassium Hgb O2 Saturation Glucose Lactate FiO2 Sodium Potassium Chloride Carbon Dioxide Anion Gap BUN Creatinine Est GFR ( Amer) Est GFR (Non-Af Amer) POC Glucose (mg/dL) 94 85 143 H Random Glucose Calcium Phosphorus Magnesium Total Bilirubin AST ALT Alkaline Phosphatase Lactate Dehydrogenase Total Creatine Kinase Troponin I Total Protein Albumin Globulin Albumin/Globulin Ratio Procalcitonin Arterial Blood Potassium Venous Blood Potassium Urine Color Urine Appearance Urine pH Ur Specific [place] Urine Protein Urine Glucose (UA) Urine Ketones Urine Blood Urine Nitrate Urine Bilirubin Urine Urobilinogen Ur Leukocyte Esterase Urine RBC Urine WBC Ur Epithelial Cells Urine Bacteria Urine Opiates Screen Urine Methadone Screen Ur Barbiturates Screen Ur Phencyclidine Scrn Ur Amphetamines Screen U Benzodiazepines Scrn U Oth Cocaine Metabols U Cannabinoids Screen Influenza Typ A,B (EIA) Ur L.pneumophila Ag Assessment & Plan - Assessment and Plan (Free Text) Plan: Infectious diseases Attending Physician Attestation Patient seen and examined, discussed with medical screener. I have reviewed the patient's history of present illness, past medical, social, personal and family histories, pertinent physical exam findings, course so far in this hospital admission, pertinent laboratory and imaging results. I agree with the above findings, assessment and plan. In addition, we have started Vancomycin, Zosyn a nd Doxycycline for sepsis due to right lower lobe HCAP. Follow up blood cx, sputum cx, PCT, urine Legionella Ag, PCT. Will monitor clinically.
[2018-04-27 14:18] LABS: ALBUMIN 2.4 g/dL (3.0-4.8); ALT/SGPT 29 U/L (7-56); AST/SGOT 22 U/L (14-36); BLOOD UREA NITROGEN 30 mg/dL (7-21); CALCIUM 8.1 mg/dL (8.4-10.5); GFR NON-AFRICAN AMERICAN > 60
--- NOTE | 2018-04-27 14:43 | CP.PCM.CON ---
<Ruthann Cleveland - Last Filed: 04/27/18 14:43> History of Present Illness - History of Present Illness History of Present Illness: Gastroenterology Fellow/PGY6 Consult Note 57 year old female with PMH of HTN, uncontrolled T2DM complicated by retinopathy/gastroparesis, MDD, LAUREN, and TIA/CVA presenting with vomiting and epigastric pain. On evaluation, patient is somnolent and minimally responsive to verbal/tactile stimuli. Opens eyes on reptitive command and nods in agreeance that she came to the hospital with vomiting and abdominal pain. Discussion with ICU team, reveals that patient was more alert on initial ER evaluation but remains somnolent since transfer to ICU with nursing staff. EGD 10/2017 showed H. pylori negative bile gastritis and fundic gland polyps. 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, cholecystectomy, appendectomy, hysterectomy, , left sided hernia repair Review of Systems - Review of Systems Review of Systems: 12-point review of systems negative except for as above Past Patient History - Infectious Disease Hx of Infectious Diseases: None - Tetanus Immunizations Tetanus Immunization: Unknown - Past Social History Smoking Status: Never Smoked - CARDIAC Hx Hypertension: Yes - PULMONARY Hx Chronic Obstructive Pulmonary Disease (COPD): Yes - NEUROLOGICAL Hx Transient Ischemic Attacks (TIA): Yes - HEENT Hx HEENT Problems: Yes Hx Cataracts: Yes (bilateral sx) - RENAL Hx Chronic Kidney Disease: No - ENDOCRINE/METABOLIC Hx Diabetes Mellitus Type 2: Yes - HEMATOLOGICAL/ONCOLOGICAL Hx Anemia: Yes (Blood Transfusion) - INTEGUMENTARY Hx Dermatological Problems: Yes Other/Comment: abcess - MUSCULOSKELETAL/RHEUMATOLOGICAL Hx Falls: Yes - GASTROINTESTINAL Other/Comment: gastroparesis. chronic abdominal pain - GENITOURINARY/GYNECOLOGICAL Hx Genitourinary Disorders: No - PSYCHIATRIC Hx Substance Use: No - SURGICAL HISTORY Hx Cholecystectomy: Yes Hx Musculoskeletal Surgery: Yes (right transmetatarsal amputation) - ANESTHESIA Hx Anesthesia: Yes Hx Anesthesia Reactions: No Hx Malignant Hyperthermia: No Meds Allergies/Adverse Reactions: Allergies Allergy/AdvReac Type Severity Reaction Status Date / Time Narcotic/Dilaudid/Morphine AdvReac SHORTNESS Uncoded 04/27/18 02:46 OF BREATH - Medications Medications: Current Medications Lactated Ringer's (Lactated Ringer's) 1,000 mls @ 200 mls/hr IV .Q5H PATTI Last Admin: 04/27/18 09:02 Dose: 200 mls/hr Insulin Human Regular 100 (units/ Sodium Chloride) 100 mls @ 7 mls/hr IV .[id number] PRN; Protocol PRN Reason: TITRATE PER MD ORDER Last Titration: 04/27/18 14:05 Dose: 3 units/hr, 3 mls/hr Vancomycin HCl (Vancomycin 1gm) 1 gm in 250 mls @ 167 mls/hr IVPB Q12H PATTI; Protocol Last Admin: 04/27/18 08:54 Dose: 167 mls/hr Piperacillin Sod/Tazobactam Sod (Zosyn 3.375 In Ns 100ml) 100 mls @ 25 mls/hr IVPB Q8 PATTI; Protocol Stop: 05/04/18 14:01 Last Admin: 04/27/18 14:15 Dose: 25 mls/hr Doxycycline Hyclate 100 mg/ (Sodium Chloride) 100 mls @ 100 mls/hr IVPB Q12 PATTI; Protocol Potassium Chloride (Potassium Chloride 20 Meq/100 Ml) 20 meq in 100 mls @ 50 mls/hr IVPB Q2H PATTI Stop: 04/27/18 15:14 Last Admin: 04/27/18 14:18 Dose: 50 mls/hr Ketorolac Tromethamine (Toradol) 30 mg IVP Q6H PRN PRN Reason: Pain, moderate (4-7) Levalbuterol HCl (Xopenex) 1.25 mg IH [id number] PATTI Last Admin: 04/27/18 08:54 Dose: 1.25 mg Metoclopramide HCl (Reglan) 10 mg IVP ACHS PATTI Last Admin: 04/27/18 12:20 Dose: 10 mg Ondansetron HCl (Zofran Inj) 4 mg IVP Q4H PRN PRN Reason: Nausea/Vomiting Pantoprazole Sodium (Protonix Inj) 40 mg IVP Q12 PTATI Last Admin: 04/27/18 12:16 Dose: 40 mg Physical Exam - Constitutional Appears: Chronically Ill, Other - Head Exam Head Exam: ATRAUMATIC, NORMOCEPHALIC - Eye Exam Eye Exam: PERRL. absent: Scleral icterus Pupil Exam: PERRL - ENT Exam ENT Exam: Mucous Membranes Dry - Neck Exam Neck exam: Positive for: Normal Inspection - Respiratory Exam Respiratory Exam: Decreased Breath Sounds. absent: Rales, Respiratory Distress Additional comments: R>L - Cardiovascular Exam Cardiovascular Exam: RRR, +S1, +S2. absent: Gallop, Rubs - GI/Abdominal Exam GI & Abdominal Exam: Normal Bowel Sounds, Soft, Tenderness. absent: Distended, Firm, Guarding, Organomegaly, Rebound, Rigid Additional comments: LUQ tenderness to palpation - Extremities Exam Extremities exam: Positive for: normal inspection. Negative for: pedal edema - Neurological Exam Additional comments: limited exam, minimally responsive to questioning, PERRL - Psychiatric Exam Additional comments: unable to assess, minimally responsive to questioning - Skin Skin Exam: Dry, Intact, Normal Color, Warm Results - Vital Signs Recent Vital Signs: Last Vital Signs Temp 98.5 F 04/27/18 12:00 Pulse 87 04/27/18 14:00 Resp 15 04/27/18 14:00 BP 119/60 04/27/18 14:00 Pulse Ox 99 04/27/18 14:00 - Labs Result Diagrams: 04/27/18 07:50 04/27/18 13:50 Labs: Laboratory Results - last 24 hr 04/27/18 04/27/18 04/27/18 02:55 03:11 03:50 WBC 10.4 RBC 4.74 Hgb 12.1 Hct 36.6 MCV 77.2 L MCH 25.5 MCHC 33.1 RDW 13.6 Plt Count 366 MPV 10.2 Gran % Lymph % (Auto) [place] % (Auto) Eos % (Auto) Baso % (Auto) Gran # Lymph # (Auto) [place] # (Auto) Eos # (Auto) Baso # (Auto) Neutrophils % (Manual) Band Neutrophils % Lymphocytes % (Manual) Monocytes % (Manual) Platelet Evaluation PT 10.5 INR 0.92 APTT 27.5 pCO2 pO2 HCO3 ABG pH ABG Total CO2 ABG O2 Saturation ABG O2 Content ABG Base Excess ABG Hemoglobin ABG Carboxyhemoglobin POC ABG HHb (Measured) ABG Methemoglobin ABG O2 Capacity ABG Potassium VBG pH VBG pCO2 VBG HCO3 VBG Total CO2 VBG O2 Sat (Calc) VBG Base Excess VBG Potassium Hgb O2 Saturation Glucose Lactate FiO2 Sodium Potassium Chloride Carbon Dioxide Anion Gap BUN Creatinine Est GFR ( Amer) Est GFR (Non-Af Amer) POC Glucose (mg/dL) 403 H* Random Glucose Calcium Phosphorus Magnesium Total Bilirubin AST ALT Alkaline Phosphatase Lactate Dehydrogenase Total Creatine Kinase Troponin I Total Protein Albumin Globulin Albumin/Globulin Ratio Procalcitonin Arterial Blood Potassium Venous Blood Potassium Urine Color Urine Appearance Urine pH Ur Specific [place] Urine Protein Urine Glucose (UA) Urine Ketones Urine Blood Urine Nitrate Urine Bilirubin Urine Urobilinogen Ur Leukocyte Esterase Urine RBC Urine WBC Ur Epithelial Cells Urine Bacteria Urine Opiates Screen Urine Methadone Screen Ur Barbiturates Screen Ur Phencyclidine Scrn Ur Amphetamines Screen U Benzodiazepines Scrn U Oth Cocaine Metabols U Cannabinoids Screen Influenza Typ A,B (EIA) Ur L.pneumophila Ag 04/27/18 04/27/18 04/27/18 03:50 03:50 05:13 WBC RBC Hgb Hct MCV MCH MCHC RDW Plt Count MPV Gran % Lymph % (Auto) [place] % (Auto) Eos % (Auto) Baso % (Auto) Gran # Lymph # (Auto) [place] # (Auto) Eos # (Auto) Baso # (Auto) Neutrophils % (Manual) Band Neutrophils % Lymphocytes % (Manual) Monocytes % (Manual) Platelet Evaluation PT INR APTT pCO2 pO2 HCO3 ABG pH ABG Total CO2 ABG O2 Saturation ABG O2 Content ABG Base Excess ABG Hemoglobin ABG Carboxyhemoglobin POC ABG HHb (Measured) ABG Methemoglobin ABG O2 Capacity ABG Potassium VBG pH VBG pCO2 VBG HCO3 VBG Total CO2 VBG O2 Sat (Calc) VBG Base Excess VBG Potassium Hgb O2 Saturation Glucose Lactate FiO2 Sodium 136 Potassium 3.8 Chloride 97 L Carbon Dioxide 31 Anion Gap 11 BUN 22 H Creatinine 0.7 Est GFR ( Amer) > 60 Est GFR (Non-Af Amer) > 60 POC Glucose (mg/dL) Random Glucose 491 H* D Calcium 9.0 Phosphorus Magnesium Total Bilirubin 0.4 AST 29 ALT 36 Alkaline Phosphatase 133 H Lactate Dehydrogenase 788 H Total Creatine Kinase 150 Troponin I < 0.01 D Total Protein 6.0 Albumin 3.1 Globulin 2.9 Albumin/Globulin Ratio 1.0 L Procalcitonin < 0.05 L Arterial Blood Potassium Venous Blood Potassium Urine Color Urine Appearance Urine pH Ur Specific [place] Urine Protein Urine Glucose (UA) Urine Ketones Urine Blood Urine Nitrate Urine Bilirubin Urine Urobilinogen Ur Leukocyte Esterase Urine RBC Urine WBC Ur Epithelial Cells Urine Bacteria Urine Opiates Screen Negative Urine Methadone Screen Negative Ur Barbiturates Screen Negative Ur Phencyclidine Scrn Negative Ur Amphetamines Screen Negative U Benzodiazepines Scrn Positive H U Oth Cocaine Metabols Negative U Cannabinoids Screen Negative Influenza Typ A,B (EIA) Ur L.pneumophila Ag 04/27/18 04/27/18 04/27/18 05:35 05:55 07:50 WBC 11.0 RBC 4.21 Hgb 10.6 L Hct 33.3 L MCV 79.1 L MCH 25.2 MCHC 31.8 RDW 13.8 Plt Count 318 MPV 9.8 Gran % 91.5 H Lymph % (Auto) 6.1 L [place] % (Auto) 2.3 Eos % (Auto) 0.0 L Baso % (Auto) 0.1 Gran # 10.03 H Lymph # (Auto) 0.7 L [place] # (Auto) 0.3 Eos # (Auto) 0.0 Baso # (Auto) 0.01 Neutrophils % (Manual) 87 H Band Neutrophils % 5 H Lymphocytes % (Manual) 6 L Monocytes % (Manual) 2 Platelet Evaluation Normal PT INR APTT pCO2 45 pO2 62.0 L HCO3 29.2 H ABG pH 7.42 ABG Total CO2 30.6 H ABG O2 Saturation 92.8 L ABG O2 Content 13.9 L ABG Base Excess 4.1 H ABG Hemoglobin 10.8 L ABG Carboxyhemoglobin 1.3 POC ABG HHb (Measured) 7.1 H ABG Methemoglobin 0.0 ABG O2 Capacity 15.0 L ABG Potassium VBG pH VBG pCO2 VBG HCO3 VBG Total CO2 VBG O2 Sat (Calc) VBG Base Excess VBG Potassium Hgb O2 Saturation 91.6 L Glucose Lactate FiO2 100.0 Sodium Potassium Chloride Carbon Dioxide Anion Gap BUN Creatinine Est GFR ( Amer) Est GFR (Non-Af Amer) POC Glucose (mg/dL) Random Glucose Calcium Phosphorus Magnesium Total Bilirubin AST ALT Alkaline Phosphatase Lactate Dehydrogenase Total Creatine Kinase Troponin I Total Protein Albumin Globulin Albumin/Globulin Ratio Procalcitonin Arterial Blood Potassium Venous Blood Potassium Urine Color Yellow Urine Appearance Clear Urine pH 7.5 Ur Specific [place] 1.020 Urine Protein >=300 H Urine Glucose (UA) >=1000 Urine Ketones 15 H Urine Blood Small H Urine Nitrate Negative Urine Bilirubin Negative Urine Urobilinogen 0.2 Ur Leukocyte Esterase Negative Urine RBC 2 - 5 Urine WBC 0 - 2 Ur Epithelial Cells 0 - 2 Urine Bacteria Rare Urine Opiates Screen Urine Methadone Screen Ur Barbiturates Screen Ur Phencyclidine Scrn Ur Amphetamines Screen U Benzodiazepines Scrn U Oth Cocaine Metabols U Cannabinoids Screen Influenza Typ A,B (EIA) Ur L.pneumophila Ag 04/27/18 04/27/18 04/27/18 07:50 08:10 08:10 WBC RBC Hgb Hct MCV MCH MCHC RDW Plt Count MPV Gran % Lymph % (Auto) [place] % (Auto) Eos % (Auto) Baso % (Auto) Gran # Lymph # (Auto) [place] # (Auto) Eos # (Auto) Baso # (Auto) Neutrophils % (Manual) Band Neutrophils % Lymphocytes % (Manual) Monocytes % (Manual) Platelet Evaluation PT INR APTT pCO2 pO2 88 H HCO3 ABG pH ABG Total CO2 ABG O2 Saturation ABG O2 Content ABG Base Excess ABG Hemoglobin ABG Carboxyhemoglobin POC ABG HHb (Measured) ABG Methemoglobin ABG O2 Capacity ABG Potassium VBG pH 7.29 L VBG pCO2 51.0 VBG HCO3 24.5 VBG Total CO2 26.1 VBG O2 Sat (Calc) 95.9 H VBG Base Excess -2.7 L VBG Potassium 3.1 L Hgb O2 Saturation Glucose 534 H* D Lactate 4.2 H* FiO2 21.0 Sodium 139 140.0 Potassium 3.5 L Chloride 104 102.0 Carbon Dioxide 24 Anion Gap 15 BUN 27 H Creatinine 0.8 Est GFR ( Amer) > 60 Est GFR (Non-Af Amer) > 60 POC Glucose (mg/dL) Random Glucose 510 H* Calcium 8.5 Phosphorus 4.9 H Magnesium 1.7 Total Bilirubin 0.3 AST 33 ALT 35 Alkaline Phosphatase 106 Lactate Dehydrogenase Total Creatine Kinase Troponin I Total Protein 5.4 L Albumin 2.8 L Globulin 2.6 Albumin/Globulin Ratio 1.1 Procalcitonin Arterial Blood Potassium Venous Blood Potassium 3.1 L Urine Color Urine Appearance Urine pH Ur Specific [place] Urine Protein Urine Glucose (UA) Urine Ketones Urine Blood Urine Nitrate Urine Bilirubin Urine Urobilinogen Ur Leukocyte Esterase Urine RBC Urine WBC Ur Epithelial Cells Urine Bacteria Urine Opiates Screen Urine Methadone Screen Ur Barbiturates Screen Ur Phencyclidine Scrn Ur Amphetamines Screen U Benzodiazepines Scrn U Oth Cocaine Metabols U Cannabinoids Screen Influenza Typ A,B (EIA) Negative for flu a/b Ur L.pneumophila Ag 04/27/18 04/27/18 04/27/18 08:30 09:27 10:05 WBC RBC Hgb Hct MCV MCH MCHC RDW Plt Count MPV Gran % Lymph % (Auto) [place] % (Auto) Eos % (Auto) Baso % (Auto) Gran # Lymph # (Auto) [place] # (Auto) Eos # (Auto) Baso # (Auto) Neutrophils % (Manual) Band Neutrophils % Lymphocytes % (Manual) Monocytes % (Manual) Platelet Evaluation PT INR APTT pCO2 pO2 HCO3 ABG pH ABG Total CO2 ABG O2 Saturation ABG O2 Content ABG Base Excess ABG Hemoglobin ABG Carboxyhemoglobin POC ABG HHb (Measured) ABG Methemoglobin ABG O2 Capacity ABG Potassium VBG pH VBG pCO2 VBG HCO3 VBG Total CO2 VBG O2 Sat (Calc) VBG Base Excess VBG Potassium Hgb O2 Saturation Glucose Lactate FiO2 Sodium Potassium Chloride Carbon Dioxide Anion Gap BUN Creatinine Est GFR ( Amer) Est GFR (Non-Af Amer) POC Glucose (mg/dL) 471 H* 332 H Random Glucose Calcium Phosphorus Magnesium Total Bilirubin AST ALT Alkaline Phosphatase Lactate Dehydrogenase Total Creatine Kinase Troponin I Total Protein Albumin Globulin Albumin/Globulin Ratio Procalcitonin Arterial Blood Potassium Venous Blood Potassium Urine Color Urine Appearance Urine pH Ur Specific [place] Urine Protein Urine Glucose (UA) Urine Ketones Urine Blood Urine Nitrate Urine Bilirubin Urine Urobilinogen Ur Leukocyte Esterase Urine RBC Urine WBC Ur Epithelial Cells Urine Bacteria Urine Opiates Screen Urine Methadone Screen Ur Barbiturates Screen Ur Phencyclidine Scrn Ur Amphetamines Screen U Benzodiazepines Scrn U Oth Cocaine Metabols U Cannabinoids Screen Influenza Typ A,B (EIA) Ur L.pneumophila Ag Negative 04/27/18 04/27/18 04/27/18 10:50 11:05 12:03 WBC RBC Hgb Hct MCV MCH MCHC RDW Plt Count MPV Gran % Lymph % (Auto) [place] % (Auto) Eos % (Auto) Baso % (Auto) Gran # Lymph # (Auto) [place] # (Auto) Eos # (Auto) Baso # (Auto) Neutrophils % (Manual) Band Neutrophils % Lymphocytes % (Manual) Monocytes % (Manual) Platelet Evaluation PT INR APTT pCO2 43 pO2 87.0 HCO3 26.0 ABG pH 7.39 ABG Total CO2 27.3 ABG O2 Saturation 96.7 ABG O2 Content ABG Base Excess 0.8 ABG Hemoglobin ABG Carboxyhemoglobin POC ABG HHb (Measured) ABG Methemoglobin ABG O2 Capacity ABG Potassium 2.7 L VBG pH VBG pCO2 VBG HCO3 VBG Total CO2 VBG O2 Sat (Calc) VBG Base Excess VBG Potassium Hgb O2 Saturation Glucose 313 H Lactate 3.7 H FiO2 28.0 Sodium 141.0 Potassium Chloride 108.0 H Carbon Dioxide Anion Gap BUN Creatinine Est GFR ( Amer) Est GFR (Non-Af Amer) POC Glucose (mg/dL) 300 H 252 H Random Glucose Calcium Phosphorus Magnesium Total Bilirubin AST ALT Alkaline Phosphatase Lactate Dehydrogenase Total Creatine Kinase Troponin I Total Protein Albumin Globulin Albumin/Globulin Ratio Procalcitonin Arterial Blood Potassium 2.7 L Venous Blood Potassium Urine Color Urine Appearance Urine pH Ur Specific [place] Urine Protein Urine Glucose (UA) Urine Ketones Urine Blood Urine Nitrate Urine Bilirubin Urine Urobilinogen Ur Leukocyte Esterase Urine RBC Urine WBC Ur Epithelial Cells Urine Bacteria Urine Opiates Screen Urine Methadone Screen Ur Barbiturates Screen Ur Phencyclidine Scrn Ur Amphetamines Screen U Benzodiazepines Scrn U Oth Cocaine Metabols U Cannabinoids Screen Influenza Typ A,B (EIA) Ur L.pneumophila Ag 04/27/18 04/27/18 04/27/18 12:05 13:50 14:04 WBC RBC Hgb Hct MCV MCH MCHC RDW Plt Count MPV Gran % Lymph % (Auto) [place] % (Auto) Eos % (Auto) Baso % (Auto) Gran # Lymph # (Auto) [place] # (Auto) Eos # (Auto) Baso # (Auto) Neutrophils % (Manual) Band Neutrophils % Lymphocytes % (Manual) Monocytes % (Manual) Platelet Evaluation PT INR APTT pCO2 pO2 81 H HCO3 ABG pH ABG Total CO2 ABG O2 Saturation ABG O2 Content ABG Base Excess ABG Hemoglobin ABG Carboxyhemoglobin POC ABG HHb (Measured) ABG Methemoglobin ABG O2 Capacity ABG Potassium VBG pH 7.39 VBG pCO2 47.0 VBG HCO3 28.5 H VBG Total CO2 29.9 H VBG O2 Sat (Calc) 96.3 H VBG Base Excess 2.8 H VBG Potassium 2.8 L Hgb O2 Saturation Glucose 262 H Lactate 3.7 H FiO2 21.0 Sodium 141.0 138 Potassium 3.6 Chloride 106.0 108 H Carbon Dioxide 28 Anion Gap 5 L BUN 30 H Creatinine 0.9 Est GFR ( Amer) > 60 Est GFR (Non-Af Amer) > 60 POC Glucose (mg/dL) 131 H Random Glucose 127 H Calcium 8.1 L Phosphorus Magnesium Total Bilirubin 0.2 AST 22 ALT 29 Alkaline Phosphatase 77 Lactate Dehydrogenase Total Creatine Kinase Troponin I Total Protein 4.9 L Albumin 2.4 L Globulin 2.5 Albumin/Globulin Ratio 1.0 L Procalcitonin Arterial Blood Potassium Venous Blood Potassium 2.8 L Urine Color Urine Appearance Urine pH Ur Specific [place] Urine Protein Urine Glucose (UA) Urine Ketones Urine Blood Urine Nitrate Urine Bilirubin Urine Urobilinogen Ur Leukocyte Esterase Urine RBC Urine WBC Ur Epithelial Cells Urine Bacteria Urine Opiates Screen Urine Methadone Screen Ur Barbiturates Screen Ur Phencyclidine Scrn Ur Amphetamines Screen U Benzodiazepines Scrn U Oth Cocaine Metabols U Cannabinoids Screen Influenza Typ A,B (EIA) Ur L.pneumophila Ag Assessment & Plan - Assessment and Plan (Free Text) Assessment: 57 year old female with PMH of HTN, uncontrolled T2DM complicated by retinopathy/gastroparesis, MDD, LAUREN, and TIA/CVA presenting with vomiting and epigastric pain. Active treatment of severe sepsis 2/2 multifocal bronchopneumonia complicated by hypoxic respiratory insufficiency. GI consulta tion for vomiting with gastroparesis. EGD 10/2017 showed H. pylori negative bile gastritis and fundic gland polyps. Plan: -change in mentation since ER presentation without anxiolytic medication administration -consider CT head -consider CT chest to evaluate pneumonia -CT A/P- fluid filled stomach and colon- gastroparesis and possible ileus in setting of poorly controlled diabetes -NPO until further evaluation after mentation improves -supportive care- antiemetics, Reglan -aspiration precautions -poor glycemic control, 03/2018 A1c 12.4 -endocrinology and pulmonology consults- follow up recommendations -panculture pending -on broad spectrum antibiotics -will follow clinical course <Dagoberto Zambrano - Last Filed: 04/27/18 15:21> Meds - Medications Medications: Current Medications Lactated Ringer's (Lactated Ringer's) 1,000 mls @ 200 mls/hr IV .Q5H PATTI Last Admin: 04/27/18 09:02 Dose: 200 mls/hr Insulin Human Regular 100 (units/ Sodium Chloride) 100 mls @ 7 mls/hr IV .[id number] PRN; Protocol PRN Reason: TITRATE PER MD ORDER Last Titration: 04/27/18 14:59 Dose: 1 units/hr, 1 mls/hr Vancomycin HCl (Vancomycin 1gm) 1 gm in 250 mls @ 167 mls/hr IVPB Q12H PATTI; P rotocol Last Admin: 04/27/18 08:54 Dose: 167 mls/hr Piperacillin Sod/Tazobactam Sod (Zosyn 3.375 In Ns 100ml) 100 mls @ 25 mls/hr IVPB Q8 PATTI; Protocol Stop: 05/04/18 14:01 Last Admin: 04/27/18 14:15 Dose: 25 mls/hr Doxycycline Hyclate 100 mg/ (Sodium Chloride) 100 mls @ 100 mls/hr IVPB Q12 S CH; Protocol Ketorolac Tromethamine (Toradol) 30 mg IVP Q6H PRN PRN Reason: Pain, moderate (4-7) Levalbuterol HCl (Xopenex) 1.25 mg IH [id number] PATTI Last Admin: 04/27/18 08:54 Dose: 1.25 mg Metoclopramide HCl (Reglan) 10 mg IVP ACHS [facility] Last Admin: 04/27/18 12:20 Dose: 10 mg Ondansetron HCl (Zofran Inj) 4 mg IVP Q4H PRN PRN Reason: Nausea/Vomiting Pantoprazole Sodium (Protonix Inj) 40 mg IVP Q12 PATTI Last Admin: 04/27/18 12:16 Dose: 40 mg Results - Vital Signs Recent Vital Signs: Last Vital Signs Temp 98.5 F 04/27/18 12:00 Pulse 87 04/27/18 14:00 Resp 15 04/27/18 14:00 BP 119/60 04/27/18 14:00 Pulse Ox 99 04/27/18 14:00 - Labs Result Diagrams: 04/27/18 07:50 04/27/18 13:50 Labs: Laboratory Results - last 24 hr 04/27/18 04/27/18 04/27/18 02:55 03:11 03:50 WBC 10.4 RBC 4.74 Hgb 12.1 Hct 36.6 MCV 77.2 L MCH 25.5 MCHC 33.1 RDW 13.6 Plt Count 366 MPV 10.2 Gran % Lymph % (Auto) [place] % (Auto) Eos % (Auto) Baso % (Auto) Gran # Lymph # (Auto) [place] # (Auto) Eos # (Auto) Baso # (Auto) Neutrophils % (Manual) Band Neutrophils % Lymphocytes % (Manual) Monocytes % (Manual) Platelet Evaluation PT 10.5 INR 0.92 APTT 27.5 pCO2 pO2 HCO3 ABG pH ABG Total CO2 ABG O2 Saturation ABG O2 Content ABG Base Excess ABG Hemoglobin ABG Carboxyhemoglobin POC ABG HHb (Measured) ABG Methemoglobin ABG O2 Capacity ABG Potassium VBG pH VBG pCO2 VBG HCO3 VBG Total CO2 VBG O2 Sat (Calc) VBG Base Excess VBG Potassium Hgb O2 Saturation Glucose Lactate FiO2 Sodium Potassium Chloride Carbon Dioxide Anion Gap BUN Creatinine Est GFR ( Amer) Est GFR (Non-Af Amer) POC Glucose (mg/dL) 403 H* Random Glucose Calcium Phosphorus Magnesium Total Bilirubin AST ALT Alkaline Phosphatase Lactate Dehydrogenase Total Creatine Kinase Troponin I Total Protein Albumin Globulin Albumin/Globulin Ratio Procalcitonin Arterial Blood Potassium Venous Blood Potassium Urine Color Urine Appearance Urine pH Ur Specific [place] Urine Protein Urine Glucose (UA) Urine Ketones Urine Blood Urine Nitrate Urine Bilirubin Urine Urobilinogen Ur Leukocyte Esterase Urine RBC Urine WBC Ur Epithelial Cells Urine Bacteria Urine Opiates Screen Urine Methadone Screen Ur Barbiturates Screen Ur Phencyclidine Scrn Ur Amphetamines Screen U Benzodiazepines Scrn U Oth Cocaine Metabols U Cannabinoids Screen Influenza Typ A,B (EIA) Ur L.pneumophila Ag 04/27/18 04/27/18 04/27/18 03:50 03:50 05:13 WBC RBC Hgb Hct MCV MCH MCHC RDW Plt Count MPV Gran % Lymph % (Auto) [place] % (Auto) Eos % (Auto) Baso % (Auto) Gran # Lymph # (Auto) [place] # (Auto) Eos # (Auto) Baso # (Auto) Neutrophils % (Manual) Band Neutrophils % Lymphocytes % (Manual) Monocytes % (Manual) Platelet Evaluation PT INR APTT pCO2 pO2 HCO3 ABG pH ABG Total CO2 ABG O2 Saturation ABG O2 Content ABG Base Excess ABG Hemoglobin ABG Carboxyhemoglobin POC ABG HHb (Measured) ABG Methemoglobin ABG O2 Capacity ABG Potassium VBG pH VBG pCO2 VBG HCO3 VBG Total CO2 VBG O2 Sat (Calc) VBG Base Excess VBG Potassium Hgb O2 Saturation Glucose Lactate FiO2 Sodium 136 Potassium 3.8 Chloride 97 L Carbon Dioxide 31 Anion Gap 11 BUN 22 H Creatinine 0.7 Est GFR ( Amer) > 60 Est GFR (Non-Af Amer) > 60 POC Glucose (mg/dL) Random Glucose 491 H* D Calcium 9.0 Phosphorus Magnesium Total Bilirubin 0.4 AST 29 ALT 36 Alkaline Phosphatase 133 H Lactate Dehydrogenase 788 H Total Creatine Kinase 150 Troponin I < 0.01 D Total Protein 6.0 Albumin 3.1 Globulin 2.9 Albumin/Globulin Ratio 1.0 L Procalcitonin < 0.05 L Arterial Blood Potassium Venous Blood Potassium Urine Color Urine Appearance Urine pH Ur Specific [place] Urine Protein Urine Glucose (UA) Urine Ketones Urine Blood Urine Nitrate Urine Bilirubin Urine Urobilinogen Ur Leukocyte Esterase Urine RBC Urine WBC Ur Epithelial Cells Urine Bacteria Urine Opiates Screen Negative Urine Methadone Screen Negative Ur Barbiturates Screen Negative Ur Phencyclidine Scrn Negative Ur Amphetamines Screen Negative U Benzodiazepines Scrn Positive H U Oth Cocaine Metabols Negative U Cannabinoids Screen Negative Influenza Typ A,B (EIA) Ur L.pneumophila Ag 04/27/18 04/27/18 04/27/18 05:35 05:55 07:50 WBC 11.0 RBC 4.21 Hgb 10.6 L Hct 33.3 L MCV 79.1 L MCH 25.2 MCHC 31.8 RDW 13.8 Plt Count 318 MPV 9.8 Gran % 91.5 H Lymph % (Auto) 6.1 L [place] % (Auto) 2.3 Eos % (Auto) 0.0 L Baso % (Auto) 0.1 Gran # 10.03 H Lymph # (Auto) 0.7 L [place] # (Auto) 0.3 Eos # (Auto) 0.0 Baso # (Auto) 0.01 Neutrophils % (Manual) 87 H Band Neutrophils % 5 H Lymphocytes % (Manual) 6 L Monocytes % (Manual) 2 Platelet Evaluation Normal PT INR APTT pCO2 45 pO2 62.0 L HCO3 29.2 H ABG pH 7.42 ABG Total CO2 30.6 H ABG O2 Saturation 92.8 L ABG O2 Content 13.9 L ABG Base Excess 4.1 H ABG Hemoglobin 10.8 L ABG Carboxyhemoglobin 1.3 POC ABG HHb (Measured) 7.1 H ABG Methemoglobin 0.0 ABG O2 Capacity 15.0 L ABG Potassium VBG pH VBG pCO2 VBG HCO3 VBG Total CO2 VBG O2 Sat (Calc) VBG Base Excess VBG Potassium Hgb O2 Saturation 91.6 L Glucose Lactate FiO2 100.0 Sodium Potassium Chloride Carbon Dioxide Anion Gap BUN Creatinine Est GFR ( Amer) Est GFR (Non-Af Amer) POC Glucose (mg/dL) Random Glucose Calcium Phosphorus Magnesium Total Bilirubin AST ALT Alkaline Phosphatase Lactate Dehydrogenase Total Creatine Kinase Troponin I Total Protein Albumin Globulin Albumin/Globulin Ratio Procalcitonin Arterial Blood Potassium Venous Blood Potassium Urine Color Yellow Urine Appearance Clear Urine pH 7.5 Ur Specific [place] 1.020 Urine Protein >=300 H Urine Glucose (UA) >=1000 Urine Ketones 15 H Urine Blood Small H Urine Nitrate Negative Urine Bilirubin Negative Urine Urobilinogen 0.2 Ur Leukocyte Esterase Negative Urine RBC 2 - 5 Urine WBC 0 - 2 Ur Epithelial Cells 0 - 2 Urine Bacteria Rare Urine Opiates Screen Urine Methadone Screen Ur Barbiturates Screen Ur Phencyclidine Scrn Ur Amphetamines Screen U Benzodiazepines Scrn U Oth Cocaine Metabols U Cannabinoids Screen Influenza Typ A,B (EIA) Ur L.pneumophila Ag 04/27/18 04/27/18 04/27/18 07:50 08:10 08:10 WBC RBC Hgb Hct MCV MCH MCHC RDW Plt Count MPV Gran % Lymph % (Auto) [place] % (Auto) Eos % (Auto) Baso % (Auto) Gran # Lymph # (Auto) [place] # (Auto) Eos # (Auto) Baso # (Auto) Neutrophils % (Manual) Band Neutrophils % Lymphocytes % (Manual) Monocytes % (Manual) Platelet Evaluation PT INR APTT pCO2 pO2 88 H HCO3 ABG pH ABG Total CO2 ABG O2 Saturation ABG O2 Content ABG Base Excess ABG Hemoglobin ABG Carboxyhemoglobin POC ABG HHb (Measured) ABG Methemoglobin ABG O2 Capacity ABG Potassium VBG pH 7.29 L VBG pCO2 51.0 VBG HCO3 24.5 VBG Total CO2 26.1 VBG O2 Sat (Calc) 95.9 H VBG Base Excess -2.7 L VBG Potassium 3.1 L Hgb O2 Saturation Glucose 534 H* D Lactate 4.2 H* FiO2 21.0 Sodium 139 140.0 Potassium 3.5 L Chloride 104 102.0 Carbon Dioxide 24 Anion Gap 15 BUN 27 H Creatinine 0.8 Est GFR ( Amer) > 60 Est GFR (Non-Af Amer) > 60 POC Glucose (mg/dL) Random Glucose 510 H* Calcium 8.5 Phosphorus 4.9 H Magnesium 1.7 Total Bilirubin 0.3 AST 33 ALT 35 Alkaline Phosphatase 106 Lactate Dehydrogenase Total Creatine Kinase Troponin I Total Protein 5.4 L Albumin 2.8 L Globulin 2.6 Albumin/Globulin Ratio 1.1 Procalcitonin Arterial Blood Potassium Venous Blood Potassium 3.1 L Urine Color Urine Appearance Urine pH Ur Specific [place] Urine Protein Urine Glucose (UA) Urine Ketones Urine Blood Urine Nitrate Urine Bilirubin Urine Urobilinogen Ur Leukocyte Esterase Urine RBC Urine WBC Ur Epithelial Cells Urine Bacteria Urine Opiates Screen Urine Methadone Screen Ur Barbiturates Screen Ur Phencyclidine Scrn Ur Amphetamines Screen U Benzodiazepines Scrn U Oth Cocaine Metabols U Cannabinoids Screen Influenza Typ A,B (EIA) Negative for flu a/b Ur L.pneumophila Ag 04/27/18 04/27/18 04/27/18 08:30 09:27 10:05 WBC RBC Hgb Hct MCV MCH MCHC RDW Plt Count MPV Gran % Lymph % (Auto) [place] % (Auto) Eos % (Auto) Baso % (Auto) Gran # Lymph # (Auto) [place] # (Auto) Eos # (Auto) Baso # (Auto) Neutrophils % (Manual) Band Neutrophils % Lymphocytes % (Manual) Monocytes % (Manual) Platelet Evaluation PT INR APTT pCO2 pO2 HCO3 ABG pH ABG Total CO2 ABG O2 Saturation ABG O2 Content ABG Base Excess ABG Hemoglobin ABG Carboxyhemoglobin POC ABG HHb (Measured) ABG Methemoglobin ABG O2 Capacity ABG Potassium VBG pH VBG pCO2 VBG HCO3 VBG Total CO2 VBG O2 Sat (Calc) VBG Base Excess VBG Potassium Hgb O2 Saturation Glucose Lactate FiO2 Sodium Potassium Chloride Carbon Dioxide Anion Gap BUN Creatinine Est GFR ( Amer) Est GFR (Non-Af Amer) POC Glucose (mg/dL) 471 H* 332 H Random Glucose Calcium Phosphorus Magnesium Total Bilirubin AST ALT Alkaline Phosphatase Lactate Dehydrogenase Total Creatine Kinase Troponin I Total Protein Albumin Globulin Albumin/Globulin Ratio Procalcitonin Arterial Blood Potassium Venous Blood Potassium Urine Color Urine Appearance Urine pH Ur Specific [place] Urine Protein Urine Glucose (UA) Urine Ketones Urine Blood Urine Nitrate Urine Bilirubin Urine Urobilinogen Ur Leukocyte Esterase Urine RBC Urine WBC Ur Epithelial Cells Urine Bacteria Urine Opiates Screen Urine Methadone Screen Ur Barbiturates Screen Ur Phencyclidine Scrn Ur Amphetamines Screen U Benzodiazepines Scrn U Oth Cocaine Metabols U Cannabinoids Screen Influenza Typ A,B (EIA) Ur L.pneumophila Ag Negative 04/27/18 04/27/18 04/27/18 10:50 11:05 12:03 WBC RBC Hgb Hct MCV MCH MCHC RDW Plt Count MPV Gran % Lymph % (Auto) [place] % (Auto) Eos % (Auto) Baso % (Auto) Gran # Lymph # (Auto) [place] # (Auto) Eos # (Auto) Baso # (Auto) Neutrophils % (Manual) Band Neutrophils % Lymphocytes % (Manual) Monocytes % (Manual) Platelet Evaluation PT INR APTT pCO2 43 pO2 87.0 HCO3 26.0 ABG pH 7.39 ABG Total CO2 27.3 ABG O2 Saturation 96.7 ABG O2 Content ABG Base Excess 0.8 ABG Hemoglobin ABG Carboxyhemoglobin POC ABG HHb (Measured) ABG Methemoglobin ABG O2 Capacity ABG Potassium 2.7 L VBG pH VBG pCO2 VBG HCO3 VBG Total CO2 VBG O2 Sat (Calc) VBG Base Excess VBG Potassium Hgb O2 Saturation Glucose 313 H Lactate 3.7 H FiO2 28.0 Sodium 141.0 Potassium Chloride 108.0 H Carbon Dioxide Anion Gap BUN Creatinine Est GFR ( Amer) Est GFR (Non-Af Amer) POC Glucose (mg/dL) 300 H 252 H Random Glucose Calcium Phosphorus Magnesium Total Bilirubin AST ALT Alkaline Phosphatase Lactate Dehydrogenase Total Creatine Kinase Troponin I Total Protein Albumin Globulin Albumin/Globulin Ratio Procalcitonin Arterial Blood Potassium 2.7 L Venous Blood Potassium Urine Color Urine Appearance Urine pH Ur Specific [place] Urine Protein Urine Glucose (UA) Urine Ketones Urine Blood Urine Nitrate Urine Bilirubin Urine Urobilinogen Ur Leukocyte Esterase Urine RBC Urine WBC Ur Epithelial Cells Urine Bacteria Urine Opiates Screen Urine Methadone Screen Ur Barbiturates Screen Ur Phencyclidine Scrn Ur Amphetamines Screen U Benzodiazepines Scrn U Oth Cocaine Metabols U Cannabinoids Screen Influenza Typ A,B (EIA) Ur L.pneumophila Ag 04/27/18 04/27/18 04/27/18 12:05 13:50 14:04 WBC RBC Hgb Hct MCV MCH MCHC RDW Plt Count MPV Gran % Lymph % (Auto) [place] % (Auto) Eos % (Auto) Baso % (Auto) Gran # Lymph # (Auto) [place] # (Auto) Eos # (Auto) Baso # (Auto) Neutrophils % (Manual) Band Neutrophils % Lymphocytes % (Manual) Monocytes % (Manual) Platelet Evaluation PT INR APTT pCO2 pO2 81 H HCO3 ABG pH ABG Total CO2 ABG O2 Saturation ABG O2 Content ABG Base Excess ABG Hemoglobin ABG Carboxyhemoglobin POC ABG HHb (Measured) ABG Methemoglobin ABG O2 Capacity ABG Potassium VBG pH 7.39 VBG pCO2 47.0 VBG HCO3 28.5 H VBG Total CO2 29.9 H VBG O2 Sat (Calc) 96.3 H VBG Base Excess 2.8 H VBG Potassium 2.8 L Hgb O2 Saturation Glucose 262 H Lactate 3.7 H FiO2 21.0 Sodium 141.0 138 Potassium 3.6 Chloride 106.0 108 H Carbon Dioxide 28 Anion Gap 5 L BUN 30 H Creatinine 0.9 Est GFR ( Amer) > 60 Est GFR (Non-Af Amer) > 60 POC Glucose (mg/dL) 131 H Random Glucose 127 H Calcium 8.1 L Phosphorus Magnesium Total Bilirubin 0.2 AST 22 ALT 29 Alkaline Phosphatase 77 Lactate Dehydrogenase Total Creatine Kinase Troponin I Total Protein 4.9 L Albumin 2.4 L Globulin 2.5 Albumin/Globulin Ratio 1.0 L Procalcitonin Arterial Blood Potassium Venous Blood Potassium 2.8 L Urine Color Urine Appearance Urine pH Ur Specific [place] Urine Protein Urine Glucose (UA) Urine Ketones Urine Blood Urine Nitrate Urine Bilirubin Urine Urobilinogen Ur Leukocyte Esterase Urine RBC Urine WBC Ur Epithelial Cells Urine Bacteria Urine Opiates Screen Urine Methadone Screen Ur Barbiturates Screen Ur Phencyclidine Scrn Ur Amphetamines Screen U Benzodiazepines Scrn U Oth Cocaine Metabols U Cannabinoids Screen Influenza Typ A,B (EIA) Ur L.pneumophila Ag Attending/Attestation - Attestation I have fully participated in the care of the patient.: Yes I have reviewed all pertinent clinical information: Yes Notes (Text): 04/27/18 15:19 HTN DM - uncontrolled Gastroparesis Depression Respiratory distress - multifocal pneumonia, ?aspiration - NPO - Continue with antibiotic therapy as per ID - Maintain strict glycemic control, follow up endocrinology recommendations - Anti-emetic therapy PRN - Will continue to monitor patient clinical course
[2018-04-27] MEDS ORDERED: Insulin Detemir 100 units/ml Vial (Levemir) SC STA (15:23)
[2018-04-27] MEDS ORDERED: Dextrose 50% SYRINGE Inj (50 ml) IV PRN (15:23)
[2018-04-27] MEDS ORDERED: Insulin Lispro (humaLOG) MEDIUM Coverage SC SCH (15:30)
[2018-04-27] MEDS ORDERED: Dextrose 50% SYRINGE Inj (50 ml) IVP STA (16:09)
[2018-04-27] MEDS ORDERED: Insulin Detemir 100 units/ml Vial (Levemir) SC ONE (16:54)
[2018-04-27] MEDS: Insulin Lispro 1 UNITS/0.01 ML SC SCH (20:10)
--- NOTE | 2018-04-27 22:32 | CON ---
DATE OF CONSULTATION: 04/27/2018 LOCATION: ICU 129, Room 2. HISTORY OF PRESENT ILLNESS: This is a 57-year-old female with known history of type 2 insulin-requiring diabetes, presenting here with severe upper abdominal pain and supervening nausea, dyspepsia and intractable vomiting with underlying history of diabetic gastroparesis and is now being referred for diabetic evaluation because of extremes of glycemic fluctuations as noted thereof. She was apparently found unresponsive at home by her and was brought into the emergency room with a glucose level of 531 and a lactate level of 4.2. Subsequent x-ray showed a right-sided pneumonitis with underlying hypoxemia and was thus admitted to the ICU for close hemodynamic monitoring. PAST MEDICAL HISTORY: As mentioned above, history of type 2 insulin-requiring diabetes on a combination of Levemir given as 10 units at bedtime with Humalog given as 4 units t.i.d. before meals. History of hypertension and dyslipidemia. History of diabetic retinopathy and polyneuropathy. History of coronary artery disease with underlying peripheral arterial disease and vasculopathy. History of multiple admissions for diabetic gastroparesis as noted thereof. History of a previous TIA with no residual neurologic deficits as noted. FAMILY HISTORY: Positive for hypertension and heart disease. SOCIAL HISTORY: The patient has supportive family. No known substance use. REVIEW OF SYSTEMS: Admits to generalized body weakness with easy fatigability and tiredness and suboptimal energy level with supervening dizziness and lightheadedness and an apparent brief bout of unresponsiveness at home. No chest pains or palpitations or PND. Her oral intake has been variable with nausea, dyspepsia and diffuse upper abdominal pain with supervening intractable vomiting episodes. Also admits to marked polyuria, nocturia, polydipsia. PHYSICAL EXAMINATION: GENERAL: This is an average-built female in no apparent distress. VITAL SIGNS: Blood pressure of 140/80, pulse of 100 beats per minute and regular, temperature 98, respirations 20, height is 5'1", weight is 119 pounds. HEENT: Head normocephalic. Eyes anicteric with pink conjunctivae. Funduscopy not possible at this time. Ears, nose and throat otherwise normal. NECK: Supple. Thyroid gland is normal in size. No carotid bruits or cervical adenopathy. CARDIOPULMONARY: Adynamic precordium. S1 is split, rapid and regular. LUNGS: Scattered rhonchi. ABDOMEN: Flat, soft with positive bowel sounds. EXTREMITIES: No peripheral edema. Pulses are +2 bilaterally. She also has a toe amputation in the right foot with a previous transmetatarsal amputation some years ago. LABORATORY DATA: Her initial chemistries, BUN of 22, sodium 136, potassium 3.8, chloride 97, CO2 of 31, glucose 491, and creatinine 0.7. Subsequent glucose levels ranged from 471-510 mg/dL. The latest glucose values tonight have ranged from 85-143 mg/dL. ASSESSMENT: This is a 57-year-old female with uncontrolled and decompensated type 2 insulin-requiring diabetes, presenting here with acute exacerbation of diabetic gastroparesis with supervening right-sided pneumonia and constitutional symptoms thereof. She also has diabetic microvascular complications of retinopathy and polyneuropathy with diabetic microvascular complications of a previous cerebrovascular event with a transient ischemic attack with no residual weakness and concomitant historical data consistent with coronary artery disease and peripheral arterial disease and vasculopathy with a previous right transmetatarsal amputation as noted. PLAN OF MANAGEMENT: As the patient has been placed n.p.o. at this time, we will modify her current insulin regimen, especially with the coverage scale to obviate hypoglycemia and detailed orders will be given. We will hold off any more basal insulin as she was given a high dose of 40 units twice today as noted. Once her oral intake has been resumed, we may restart her back on her basal and bolus insulin regimen to optimize metabolic control as indicated. We will obtain serial chemistries and supplement accordingly as needed. We will follow. Tita Coe MD
[2018-04-28] MEDS ORDERED: Dextrose 50% SYRINGE Inj (50 ml) IVP ONE ×3 (01:03→05:03)
[2018-04-28] MEDS: Levalbuterol 1.25 MG/3 ML Inhal Soln UD IH SCH ×4 (01:25→19:27)
[2018-04-28] MEDS: Insulin Lispro 1 UNITS/0.01 ML SC SCH ×6 (04:10→20:15)
[2018-04-28] MEDS ORDERED: Sodium Chloride 0.9% 250 ML IV STA (04:54)
[2018-04-28] MEDS ORDERED: Sodium Chloride 0.9% 1,000 ML IV SCH (05:15)
[2018-04-28] MEDS ORDERED: Dextrose 50% SYRINGE Inj (50 ml) ONE (05:16)
--- NOTE | 2018-04-28 05:19 | CP.PCM.PCO ---
<Ayesha Koch - Last Filed: 04/28/18 05:12> Assessment & Plan - Assessment and Plan (Free Text) Plan: Pt was hypoglycemic at 20, given D50 10 and glucose increased to 85. At 2am pt was hypoglycemic at 32, and given D50 10. Repeat glucose was 107. Pt was hypotensive at 80/50, given a bolus of 250cc. BP increased to 83/39. NS @100cc/hr was started. Fentanyl patch was stopped. EKG was obtained that showed NSR and and T wave inversions stable to prior EKG. QtC was prolonged at 537. Reglan and zosyn were stopped. Cardiology, Dr. Farmer was consulted. Dr. Dent was notified, aware of plan and agrees. <Shady Lindo - Last Filed: 04/28/18 06:07> Attending/Attestation - Attestation I have personally seen and examined this patient.: Yes I have fully participated in the care of the patient.: Yes I have reviewed all pertinent clinical information: Yes
[2018-04-28 05:26] LABS: MEAN CELL VOLUME 79.9 fl (80.0-105.0); MEAN CORPUSCULAR HEMOGLOBIN 25.4 pg (25.0-35.0); MEAN CORPUSCULAR HGB CONC 31.8 g/dl (31.0-37.0); MEAN PLATELET VOLUME 9.4 fl (7.0-11.0); RBC 3.54 10^6/uL (3.5-6.1); RED CELL DISTRIBUTION WIDTH 14.3 % (11.5-14.5); WHITE BLOOD COUNT 7.7 10^3/uL (4.5-11.0)
[2018-04-28] MEDS ORDERED: Dextrose 5%/0.9% NS 1,000 ML IV SCH (05:30)
[2018-04-28] MEDS: Piperacillin/Tazobact 3.375 gm 100 ML IVPB SCH ×3 (05:43→21:20)
[2018-04-28 05:47] LABS: ALB/GLOB RATIO 0.9 (1.1-1.8); ALBUMIN 2.1 g/dL (3.0-4.8); CALCIUM 7.8 mg/dL (8.4-10.5)
[2018-04-28 05:57] LABS: TROPONIN I 0.02 ng/mL
--- NOTE | 2018-04-28 07:23 | RAD ---
Date of service: 04/28/2018 HISTORY: follow up COMPARISON: Frontal chest radiograph 04/27/2018. FINDINGS: LUNGS: Diminishing right basilar infiltrate with limited linear atelectasis remaining at the inferior left lung zone. PLEURA: No significant pleural effusion identified, no pneumothorax apparent. CARDIOVASCULAR: No aortic atherosclerotic calcification present. Normal cardiac size. No pulmonary vascular congestion. OSSEOUS STRUCTURES: No significant abnormalities. VISUALIZED UPPER ABDOMEN: Normal. OTHER FINDINGS: None. IMPRESSION: Diminishing right basilar infiltrate. Persistent left basilar linear atelectasis.
--- NOTE | 2018-04-28 07:43 | CP.CCUPN ---
<Chapo Roman - Last Filed: 04/28/18 13:02> CCU Subjective - Physician Review Subjective (Free Text): Chapo Roman DO, PGY1. ICU progress note for Dr Chris Patient seen and examined at bedside. She is feeling better now. Overnight, she had 2 episodes of hypoglycemia of 20 and 32, was given D50. She was hypoglycemic at 80/50 and NS was given. She has no complaints now. Denied chest pain, palpitations, headache, diaphoresis, abdominal pain CCU Objective - Vital Signs / Intake & Output Vital Signs (Last 4 hours): Vital Signs Temp Pulse Resp BP Pulse Ox 04/28/18 06:50 76 13 99 04/28/18 06:40 76 14 83 L 04/28/18 06:30 76 14 97 04/28/18 06:20 75 100 04/28/18 06:10 66 11 L 100 04/28/18 06:00 59 L 13 109/63 97 04/28/18 05:50 54 L 14 100 04/28/18 05:40 54 L 11 L 100 04/28/18 05:30 55 L 14 99 04/28/18 05:20 56 L 13 99 04/28/18 05:16 56 L 11 L 04/28/18 05:15 55 L 11 L 04/28/18 05:14 56 L 12 04/28/18 05:10 56 L 12 100 04/28/18 05:00 93/46 L 04/28/18 04:59 58 L 13 100 04/28/18 04:50 57 L 12 100 04/28/18 04:40 59 L 14 99 04/28/18 04:30 59 L 16 98 04/28/18 04:28 58 L 15 83/39 L 98 04/28/18 04:20 58 L 13 99 04/28/18 04:10 60 14 99 04/28/18 04:01 60 14 76/45 L 99 04/28/18 04:00 98.2 F 60 13 04/28/18 03:50 61 14 98 04/28/18 03:40 62 16 98 Intake and Output (Last 8hrs): Intake & Output 04/27/18 04/28/18 04/28/18 22:59 06:59 14:59 Intake Total 1362 1450 Output Total 1400 300 Balance -38 1150 Weight 130 lb 130 lb Intake: IV 1362 1450 IVF 1200 1450 IVPB 100 Insulin drip 62 Oral 0 Output: Urine 1400 300 Urethral (Wan) 1400 300 Other: # Bowel Movements 0 - Physical Exam Head: Positive for: Atraumatic, Normocephalic Pupils: Positive for: PERRL Extroacular Muscles: Positive for: EOMI Conjunctiva: Positive for: Normal Mouth: Positive for: Moist Mucous Membranes Neck: Positive for: Normal Range of Motion Respiratory/Chest: Positive for: Good Air Exchange, Rhonchi. Negative for: Respiratory Distress, Accessory Muscle Use Cardiovascular: Positive for: Regular Rate and Rhythm, Normal S1, S2. Negative for: Murmurs Abdomen: Positive for: Tenderness (palpable tenderness to epigastric area ), Normal Bowel Sounds. Negative for: Distention, Peritoneal Signs Back: Positive for: Normal Inspection Upper Extremity: Positive for: Normal Inspection. Negative for: Cyanosis, Edema Lower Extremity: Positive for: Normal Inspection. Negative for: Edema Neurological: Positive for: GCS=15, CN II-XII Intact, Speech Normal Skin: Positive for: Warm, Dry, Normal Color. Negative for: Rashes Psychiatric: Positive for: Alert, Oriented x 3, Normal Insight, Normal Concentration - Medications Active Medications: Active Medications Generic Name Dose Route Start Last Admin Trade Name Freq PRN Reason Stop Dose Admin Dextrose 0 ml 04/27/18 15:23 04/27/18 16:09 Dextrose 50% Inj IV 50 ml STAT PRN Administration Hypoglycemia Protocol Protocol Piperacillin Sod/Tazobactam Sod 100 mls @ 25 mls/hr 04/27/18 14:00 04/28/18 05:43 Zosyn 3.375 In Ns 100ml IVPB 05/04/18 14:01 25 mls/hr Q8 PATTI Administration Protocol Doxycycline Hyclate 100 mg/ 100 mls @ 100 mls/hr 04/27/18 22:00 04/27/18 22:00 Sodium Chloride IVPB 100 mls/hr Q12 PATTI Administration Protocol Dextrose 1,000 mls @ 0 mls/hr 04/27/18 15:23 Dextrose 5% In Water 1000 Ml IV .Q0M PRN Hypoglycemia Protocol Protocol Per Protocol Dextrose/Sodium Chloride 1,000 mls @ 100 mls/hr 04/28/18 05:30 04/28/18 05:39 Dextrose 5%/0.9% Ns 1000 Ml IV 100 mls/hr .Q10H PATTI Administration Insulin Human Lispro 0 units 04/27/18 20:00 04/28/18 04:10 Humalog SC Not Given Q4H PATTI Ketorolac Tromethamine 30 mg 04/27/18 09:10 04/27/18 22:04 Toradol IVP 30 mg Q6H PRN Administration Pain, moderate (4-7) Levalbuterol HCl 1.25 mg 04/27/18 08:00 04/28/18 07:09 Xopenex IH 1.25 mg [id number] PATTI Administration Pantoprazole Sodium 40 mg 04/27/18 10:00 04/27/18 21:49 Protonix Inj IVP 40 mg Q12 PATTI Administration - Patient Studies Lab Studies: Microbiology Studies 04/27/18 05:35 Blood Culture - Preliminary Blood NO GROWTH AFTER 24 HOURS 04/27/18 05:20 Blood Culture - Preliminary Blood NO GROWTH AFTER 24 HOURS Lab Studies 04/28/18 04/28/18 04/28/18 Range/Units 05:00 04:59 04:59 WBC (4.5-11.0) 10^3/uL RBC (3.5-6.1) 10^6/uL Hgb (12.0-16.0) g/dL Hct (36.0-48.0) % MCV (80.0-105.0) fl MCH (25.0-35.0) pg MCHC (31.0-37.0) g/dl RDW (11.5-14.5) % Plt Count (120.0-450.0) 10^3/uL MPV (7.0-11.0) fl Gran % (50.0-68.0) % Lymph % (Auto) (22.0-35.0) % [place] % (Auto) (1.0-6.0) % Eos % (Auto) (1.5-5.0) % Baso % (Auto) (0.0-3.0) % Gran # (1.4-6.5) Lymph # (Auto) (1.2-3.4) [place] # (Auto) (0.1-0.6) Eos # (Auto) (0.0-0.7) Baso # (Auto) (0.0-2.0) K/mm3 Neutrophils % (Manual) (50.0-70.0) % Band Neutrophils % (0-2) % Lymphocytes % (Manual) (22.0-35.0) % Monocytes % (Manual) (1.0-6.0) % Platelet Evaluation (NORMAL) pCO2 (35-45) mm/Hg pO2 (30-55) mm/Hg HCO3 (21-28) mmol/L ABG pH (7.35-7.45) ABG Total CO2 (22-28) mmol.L ABG O2 Saturation (95-98) % ABG Base Excess (-2.0-3.0) mmol/L ABG Potassium (3.6-5.2) mmol/L VBG pH (7.32-7.43) VBG pCO2 (40-60) VBG HCO3 (21-28) mmol/l VBG Total CO2 (22-28) mmol.L VBG O2 Sat (Calc) (40-65) % VBG Base Excess (0.0-2.0) mmol/L VBG Potassium (3.6-5.2) mmol/L Glucose (65-105) mg/dl Lactate (0.7-2.1) mmol/L FiO2 % Sodium 140 (132-148) mmol/L Potassium 3.7 (3.6-5.0) mmol/L Chloride 108 H (98-107) mmol/L Carbon Dioxide 30 (21-33) mmol/L Anion Gap 5 L (10-20) BUN 32 H (7-21) mg/dL Creatinine 1.4 H (0.7-1.2) mg/dl Est GFR ( Amer) 47 Est GFR (Non-Af Amer) 39 POC Glucose (mg/dL) 66 (65-110) mg/dL Random Glucose 73 (70-110) mg/dL Calcium 7.8 L (8.4-10.5) mg/dL Phosphorus 4.4 (2.5-4.5) mg/dL Magnesium 1.7 (1.7-2.2) mg/dL Total Bilirubin 0.1 L (0.2-1.3) mg/dL AST 21 (14-36) U/L ALT 32 (7-56) U/L Alkaline Phosphatase 69 (38-126) U/L Troponin I 0.02 D ng/mL Total Protein 4.5 L (5.8-8.3) g/dL Albumin 2.1 L (3.0-4.8) g/dL Globulin 2.4 gm/dL Albumin/Globulin Ratio 0.9 L (1.1-1.8) Triglycerides 35 (35-160) mg/dL Cholesterol 157 (130-200) mg/dL LDL Cholesterol Direct 59 (0-129) mg/dL HDL Cholesterol 84 H (29-60) mg/dL Procalcitonin (0.19-0.49) NG/ML TSH 3rd Generation 0.67 (0.46-4.68) mIU/mL Arterial Blood Potassium (3.6-5.2) mmol/L Venous Blood Potassium (3.6-5.2) mmol/L Influenza Typ A,B (EIA) (NEGATIVE) Ur L.pneumophila Ag (NEGATIVE) 04/28/18 04/28/18 04/28/18 Range/Units 04:59 03:04 02:07 WBC 7.7 D (4.5-11.0) 10^3/uL RBC 3.54 (3.5-6.1) 10^6/uL Hgb 9.0 L (12.0-16.0) g/dL Hct 28.3 L (36.0-48.0) % MCV 79.9 L (80.0-105.0) fl MCH 25.4 (25.0-35.0) pg MCHC 31.8 (31.0-37.0) g/dl RDW 14.3 (11.5-14.5) % Plt Count 242 (120.0-450.0) 10^3/uL MPV 9.4 (7.0-11.0) fl Gran % (50.0-68.0) % Lymph % (Auto) (22.0-35.0) % [place] % (Auto) (1.0-6.0) % Eos % (Auto) (1.5-5.0) % Baso % (Auto) (0.0-3.0) % Gran # (1.4-6.5) Lymph # (Auto) (1.2-3.4) [place] # (Auto) (0.1-0.6) Eos # (Auto) (0.0-0.7) Baso # (Auto) (0.0-2.0) K/mm3 Neutrophils % (Manual) (50.0-70.0) % Band Neutrophils % (0-2) % Lymphocytes % (Manual) (22.0-35.0) % Monocytes % (Manual) (1.0-6.0) % Platelet Evaluation (NORMAL) pCO2 (35-45) mm/Hg pO2 (30-55) mm/Hg HCO3 (21-28) mmol/L ABG pH (7.35-7.45) ABG Total CO2 (22-28) mmol.L ABG O2 Saturation (95-98) % ABG Base Excess (-2.0-3.0) mmol/L ABG Potassium (3.6-5.2) mmol/L VBG pH (7.32-7.43) VBG pCO2 (40-60) VBG HCO3 (21-28) mmol/l VBG Total CO2 (22-28) mmol.L VBG O2 Sat (Calc) (40-65) % VBG Base Excess (0.0-2.0) mmol/L VBG Potassium (3.6-5.2) mmol/L Glucose (65-105) mg/dl Lactate (0.7-2.1) mmol/L FiO2 % Sodium (132-148) mmol/L Potassium (3.6-5.0) mmol/L Chloride (98-107) mmol/L Carbon Dioxide (21-33) mmol/L Anion Gap (10-20) BUN (7-21) mg/dL Creatinine (0.7-1.2) mg/dl Est GFR ( Amer) Est GFR (Non-Af Amer) POC Glucose (mg/dL) 107 32 L* (65-110) mg/dL Random Glucose (70-110) mg/dL Calcium (8.4-10.5) mg/dL Phosphorus (2.5-4.5) mg/dL Magnesium (1.7-2.2) mg/dL Total Bilirubin (0.2-1.3) mg/dL AST (14-36) U/L ALT (7-56) U/L Alkaline Phosphatase (38-126) U/L Troponin I ng/mL Total Protein (5.8-8.3) g/dL Albumin (3.0-4.8) g/dL Globulin gm/dL Albumin/Globulin Ratio (1.1-1.8) Triglycerides (35-160) mg/dL Cholesterol (130-200) mg/dL LDL Cholesterol Direct (0-129) mg/dL HDL Cholesterol (29-60) mg/dL Procalcitonin (0.19-0.49) NG/ML TSH 3rd Generation (0.46-4.68) mIU/mL Arterial Blood Potassium (3.6-5.2) mmol/L Venous Blood Potassium (3.6-5.2) mmol/L Influenza Typ A,B (EIA) (NEGATIVE) Ur L.pneumophila Ag (NEGATIVE) 04/28/18 04/28/18 04/27/18 Range/Units 00:38 00:20 20:24 WBC (4.5-11.0) 10^3/uL RBC (3.5-6.1) 10^6/uL Hgb (12.0-16.0) g/dL Hct (36.0-48.0) % MCV (80.0-105.0) fl MCH (25.0-35.0) pg MCHC (31.0-37.0) g/dl RDW (11.5-14.5) % Plt Count (120.0-450.0) 10^3/uL MPV (7.0-11.0) fl Gran % (50.0-68.0) % Lymph % (Auto) (22.0-35.0) % [place] % (Auto) (1.0-6.0) % Eos % (Auto) (1.5-5.0) % Baso % (Auto) (0.0-3.0) % Gran # (1.4-6.5) Lymph # (Auto) (1.2-3.4) [place] # (Auto) (0.1-0.6) Eos # (Auto) (0.0-0.7) Baso # (Auto) (0.0-2.0) K/mm3 Neutrophils % (Manual) (50.0-70.0) % Band Neutrophils % (0-2) % Lymphocytes % (Manual) (22.0-35.0) % Monocytes % (Manual) (1.0-6.0) % Platelet Evaluation (NORMAL) pCO2 (35-45) mm/Hg pO2 (30-55) mm/Hg HCO3 (21-28) mmol/L ABG pH (7.35-7.45) ABG Total CO2 (22-28) mmol.L ABG O2 Saturation (95-98) % ABG Base Excess (-2.0-3.0) mmol/L ABG Potassium (3.6-5.2) mmol/L VBG pH (7.32-7.43) VBG pCO2 (40-60) VBG HCO3 (21-28) mmol/l VBG Total CO2 (22-28) mmol.L VBG O2 Sat (Calc) (40-65) % VBG Base Excess (0.0-2.0) mmol/L VBG Potassium (3.6-5.2) mmol/L Glucose (65-105) mg/dl Lactate (0.7-2.1) mmol/L FiO2 % Sodium (132-148) mmol/L Potassium (3.6-5.0) mmol/L Chloride (98-107) mmol/L Carbon Dioxide (21-33) mmol/L Anion Gap (10-20) BUN (7-21) mg/dL Creatinine (0.7-1.2) mg/dl Est GFR ( Amer) Est GFR (Non-Af Amer) POC Glucose (mg/dL) 85 < 20 L* 118 H (65-110) mg/dL Random Glucose (70-110) mg/dL Calcium (8.4-10.5) mg/dL Phosphorus (2.5-4.5) mg/dL Magnesium (1.7-2.2) mg/dL Total Bilirubin (0.2-1.3) mg/dL AST (14-36) U/L ALT (7-56) U/L Alkaline Phosphatase (38-126) U/L Troponin I ng/mL Total Protein (5.8-8.3) g/dL Albumin (3.0-4.8) g/dL Globulin gm/dL Albumin/Globulin Ratio (1.1-1.8) Triglycerides (35-160) mg/dL Cholesterol (130-200) mg/dL LDL Cholesterol Direct (0-129) mg/dL HDL Cholesterol (29-60) mg/dL Procalcitonin (0.19-0.49) NG/ML TSH 3rd Generation (0.46-4.68) mIU/mL Arterial Blood Potassium (3.6-5.2) mmol/L Venous Blood Potassium (3.6-5.2) mmol/L Influenza Typ A,B (EIA) (NEGATIVE) Ur L.pneumophila Ag (NEGATIVE) 04/27/18 04/27/18 04/27/18 Range/Units 18:31 16:43 16:04 WBC (4.5-11.0) 10^3/uL RBC (3.5-6.1) 10^6/uL Hgb (12.0-16.0) g/dL Hct (36.0-48.0) % MCV (80.0-105.0) fl MCH (25.0-35.0) pg MCHC (31.0-37.0) g/dl RDW (11.5-14.5) % Plt Count (120.0-450.0) 10^3/uL MPV (7.0-11.0) fl Gran % (50.0-68.0) % Lymph % (Auto) (22.0-35.0) % [place] % (Auto) (1.0-6.0) % Eos % (Auto) (1.5-5.0) % Baso % (Auto) (0.0-3.0) % Gran # (1.4-6.5) Lymph # (Auto) (1.2-3.4) [place] # (Auto) (0.1-0.6) Eos # (Auto) (0.0-0.7) Baso # (Auto) (0.0-2.0) K/mm3 Neutrophils % (Manual) (50.0-70.0) % Band Neutrophils % (0-2) % Lymphocytes % (Manual) (22.0-35.0) % Monocytes % (Manual) (1.0-6.0) % Platelet Evaluation (NORMAL) pCO2 (35-45) mm/Hg pO2 (30-55) mm/Hg HCO3 (21-28) mmol/L ABG pH (7.35-7.45) ABG Total CO2 (22-28) mmol.L ABG O2 Saturation (95-98) % ABG Base Excess (-2.0-3.0) mmol/L ABG Potassium (3.6-5.2) mmol/L VBG pH (7.32-7.43) VBG pCO2 (40-60) VBG HCO3 (21-28) mmol/l VBG Total CO2 (22-28) mmol.L VBG O2 Sat (Calc) (40-65) % VBG Base Excess (0.0-2.0) mmol/L VBG Potassium (3.6-5.2) mmol/L Glucose (65-105) mg/dl Lactate (0.7-2.1) mmol/L FiO2 % Sodium (132-148) mmol/L Potassium (3.6-5.0) mmol/L Chloride (98-107) mmol/L Carbon Dioxide (21-33) mmol/L Anion Gap (10-20) BUN (7-21) mg/dL Creatinine (0.7-1.2) mg/dl Est GFR ( Amer) Est GFR (Non-Af Amer) POC Glucose (mg/dL) 143 H 143 H 85 (65-110) mg/dL Random Glucose (70-110) mg/dL Calcium (8.4-10.5) mg/dL Phosphorus (2.5-4.5) mg/dL Magnesium (1.7-2.2) mg/dL Total Bilirubin (0.2-1.3) mg/dL AST (14-36) U/L ALT (7-56) U/L Alkaline Phosphatase (38-126) U/L Troponin I ng/mL Total Protein (5.8-8.3) g/dL Albumin (3.0-4.8) g/dL Globulin gm/dL Albumin/Globulin Ratio (1.1-1.8) Triglycerides (35-160) mg/dL Cholesterol (130-200) mg/dL LDL Cholesterol Direct (0-129) mg/dL HDL Cholesterol (29-60) mg/dL Procalcitonin (0.19-0.49) NG/ML TSH 3rd Generation (0.46-4.68) mIU/mL Arterial Blood Potassium (3.6-5.2) mmol/L Venous Blood Potassium (3.6-5.2) mmol/L Influenza Typ A,B (EIA) (NEGATIVE) Ur L.pneumophila Ag (NEGATIVE) 04/27/18 04/27/18 04/27/18 Range/Units 14:57 14:04 13:50 WBC (4.5-11.0) 10^3/uL RBC (3.5-6.1) 10^6/uL Hgb (12.0-16.0) g/dL Hct (36.0-48.0) % MCV (80.0-105.0) fl MCH (25.0-35.0) pg MCHC (31.0-37.0) g/dl RDW (11.5-14.5) % Plt Count (120.0-450.0) 10^3/uL MPV (7.0-11.0) fl Gran % (50.0-68.0) % Lymph % (Auto) (22.0-35.0) % [place] % (Auto) (1.0-6.0) % Eos % (Auto) (1.5-5.0) % Baso % (Auto) (0.0-3.0) % Gran # (1.4-6.5) Lymph # (Auto) (1.2-3.4) [place] # (Auto) (0.1-0.6) Eos # (Auto) (0.0-0.7) Baso # (Auto) (0.0-2.0) K/mm3 Neutrophils % (Manual) (50.0-70.0) % Band Neutrophils % (0-2) % Lymphocytes % (Manual) (22.0-35.0) % Monocytes % (Manual) (1.0-6.0) % Platelet Evaluation (NORMAL) pCO2 (35-45) mm/Hg pO2 (30-55) mm/Hg HCO3 (21-28) mmol/L ABG pH (7.35-7.45) ABG Total CO2 (22-28) mmol.L ABG O2 Saturation (95-98) % ABG Base Excess (-2.0-3.0) mmol/L ABG Potassium (3.6-5.2) mmol/L VBG pH (7.32-7.43) VBG pCO2 (40-60) VBG HCO3 (21-28) mmol/l VBG Total CO2 (22-28) mmol.L VBG O2 Sat (Calc) (40-65) % VBG Base Excess (0.0-2.0) mmol/L VBG Potassium (3.6-5.2) mmol/L Glucose (65-105) mg/dl Lactate (0.7-2.1) mmol/L FiO2 % Sodium 138 (132-148) mmol/L Potassium 3.6 (3.6-5.0) mmol/L Chloride 108 H (98-107) mmol/L Carbon Dioxide 28 (21-33) mmol/L Anion Gap 5 L (10-20) BUN 30 H (7-21) mg/dL Creatinine 0.9 (0.7-1.2) mg/dl Est GFR ( Amer) > 60 Est GFR (Non-Af Amer) > 60 POC Glucose (mg/dL) 94 131 H (65-110) mg/dL Random Glucose 127 H (70-110) mg/dL Calcium 8.1 L (8.4-10.5) mg/dL Phosphorus (2.5-4.5) mg/dL Magnesium (1.7-2.2) mg/dL Total Bilirubin 0.2 (0.2-1.3) mg/dL AST 22 (14-36) U/L ALT 29 (7-56) U/L Alkaline Phosphatase 77 (38-126) U/L Troponin I ng/mL Total Protein 4.9 L (5.8-8.3) g/dL Albumin 2.4 L (3.0-4.8) g/dL Globulin 2.5 gm/dL Albumin/Globulin Ratio 1.0 L (1.1-1.8) Triglycerides (35-160) mg/dL Cholesterol (130-200) mg/dL LDL Cholesterol Direct (0-129) mg/dL HDL Cholesterol (29-60) mg/dL Procalcitonin (0.19-0.49) NG/ML TSH 3rd Generation (0.46-4.68) mIU/mL Arterial Blood Potassium (3.6-5.2) mmol/L Venous Blood Potassium (3.6-5.2) mmol/L Influenza Typ A,B (EIA) (NEGATIVE) Ur L.pneumophila Ag (NEGATIVE) 04/27/18 04/27/18 04/27/18 Range/Units 12:05 12:03 11:05 WBC (4.5-11.0) 10^3/uL RBC (3.5-6.1) 10^6/uL Hgb (12.0-16.0) g/dL Hct (36.0-48.0) % MCV (80.0-105.0) fl MCH (25.0-35.0) pg MCHC (31.0-37.0) g/dl RDW (11.5-14.5) % Plt Count (120.0-450.0) 10^3/uL MPV (7.0-11.0) fl Gran % (50.0-68.0) % Lymph % (Auto) (22.0-35.0) % [place] % (Auto) (1.0-6.0) % Eos % (Auto) (1.5-5.0) % Baso % (Auto) (0.0-3.0) % Gran # (1.4-6.5) Lymph # (Auto) (1.2-3.4) [place] # (Auto) (0.1-0.6) Eos # (Auto) (0.0-0.7) Baso # (Auto) (0.0-2.0) K/mm3 Neutrophils % (Manual) (50.0-70.0) % Band Neutrophils % (0-2) % Lymphocytes % (Manual) (22.0-35.0) % Monocytes % (Manual) (1.0-6.0) % Platelet Evaluation (NORMAL) pCO2 (35-45) mm/Hg pO2 81 H (30-55) mm/Hg HCO3 (21-28) mmol/L ABG pH (7.35-7.45) ABG Total CO2 (22-28) mmol.L ABG O2 Saturation (95-98) % ABG Base Excess (-2.0-3.0) mmol/L ABG Potassium (3.6-5.2) mmol/L VBG pH 7.39 (7.32-7.43) VBG pCO2 47.0 (40-60) VBG HCO3 28.5 H (21-28) mmol/l VBG Total CO2 29.9 H (22-28) mmol.L VBG O2 Sat (Calc) 96.3 H (40-65) % VBG Base Excess 2.8 H (0.0-2.0) mmol/L VBG Potassium 2.8 L (3.6-5.2) mmol/L Glucose 262 H (65-105) mg/dl Lactate 3.7 H (0.7-2.1) mmol/L FiO2 21.0 % Sodium 141.0 (132-148) mmol/L Potassium (3.6-5.0) mmol/L Chloride 106.0 (98-107) mmol/L Carbon Dioxide (21-33) mmol/L Anion Gap (10-20) BUN (7-21) mg/dL Creatinine (0.7-1.2) mg/dl Est GFR ( Amer) Est GFR (Non-Af Amer) POC Glucose (mg/dL) 252 H 300 H (65-110) mg/dL Random Glucose (70-110) mg/dL Calcium (8.4-10.5) mg/dL Phosphorus (2.5-4.5) mg/dL Magnesium (1.7-2.2) mg/dL Total Bilirubin (0.2-1.3) mg/dL AST (14-36) U/L ALT (7-56) U/L Alkaline Phosphatase (38-126) U/L Troponin I ng/mL Total Protein (5.8-8.3) g/dL Albumin (3.0-4.8) g/dL Globulin gm/dL Albumin/Globulin Ratio (1.1-1.8) Triglycerides (35-160) mg/dL Cholesterol (130-200) mg/dL LDL Cholesterol Direct (0-129) mg/dL HDL Cholesterol (29-60) mg/dL Procalcitonin (0.19-0.49) NG/ML TSH 3rd Generation (0.46-4.68) mIU/mL Arterial Blood Potassium (3.6-5.2) mmol/L Venous Blood Potassium 2.8 L (3.6-5.2) mmol/L Influenza Typ A,B (EIA) (NEGATIVE) Ur L.pneumophila Ag (NEGATIVE) 04/27/18 04/27/18 04/27/18 Range/Units 10:50 10:05 09:27 WBC (4.5-11.0) 10^3/uL RBC (3.5-6.1) 10^6/uL Hgb (12.0-16.0) g/dL Hct (36.0-48.0) % MCV (80.0-105.0) fl MCH (25.0-35.0) pg MCHC (31.0-37.0) g/dl RDW (11.5-14.5) % Plt Count (120.0-450.0) 10^3/uL MPV (7.0-11.0) fl Gran % (50.0-68.0) % Lymph % (Auto) (22.0-35.0) % [place] % (Auto) (1.0-6.0) % Eos % (Auto) (1.5-5.0) % Baso % (Auto) (0.0-3.0) % Gran # (1.4-6.5) Lymph # (Auto) (1.2-3.4) [place] # (Auto) (0.1-0.6) Eos # (Auto) (0.0-0.7) Baso # (Auto) (0.0-2.0) K/mm3 Neutrophils % (Manual) (50.0-70.0) % Band Neutrophils % (0-2) % Lymphocytes % (Manual) (22.0-35.0) % Monocytes % (Manual) (1.0-6.0) % Platelet Evaluation (NORMAL) pCO2 43 (35-45) mm/Hg pO2 87.0 (30-55) mm/Hg HCO3 26.0 (21-28) mmol/L ABG pH 7.39 (7.35-7.45) ABG Total CO2 27.3 (22-28) mmol.L ABG O2 Saturation 96.7 (95-98) % ABG Base Excess 0.8 (-2.0-3.0) mmol/L ABG Potassium 2.7 L (3.6-5.2) mmol/L VBG pH (7.32-7.43) VBG pCO2 (40-60) VBG HCO3 (21-28) mmol/l VBG Total CO2 (22-28) mmol.L VBG O2 Sat (Calc) (40-65) % VBG Base Excess (0.0-2.0) mmol/L VBG Potassium (3.6-5.2) mmol/L Glucose 313 H (65-105) mg/dl Lactate 3.7 H (0.7-2.1) mmol/L FiO2 28.0 % Sodium 141.0 (132-148) mmol/L Potassium (3.6-5.0) mmol/L Chloride 108.0 H (98-107) mmol/L Carbon Dioxide (21-33) mmol/L Anion Gap (10-20) BUN (7-21) mg/dL Creatinine (0.7-1.2) mg/dl Est GFR ( Amer) Est GFR (Non-Af Amer) POC Glucose (mg/dL) 332 H 471 H* (65-110) mg/dL Random Glucose (70-110) mg/dL Calcium (8.4-10.5) mg/dL Phosphorus (2.5-4.5) mg/dL Magnesium (1.7-2.2) mg/dL Total Bilirubin (0.2-1.3) mg/dL AST (14-36) U/L ALT (7-56) U/L Alkaline Phosphatase (38-126) U/L Troponin I ng/mL Total Protein (5.8-8.3) g/dL Albumin (3.0-4.8) g/dL Globulin gm/dL Albumin/Globulin Ratio (1.1-1.8) Triglycerides (35-160) mg/dL Cholesterol (130-200) mg/dL LDL Cholesterol Direct (0-129) mg/dL HDL Cholesterol (29-60) mg/dL Procalcitonin (0.19-0.49) NG/ML TSH 3rd Generation (0.46-4.68) mIU/mL Arterial Blood Potassium 2.7 L (3.6-5.2) mmol/L Venous Blood Potassium (3.6-5.2) mmol/L Influenza Typ A,B (EIA) (NEGATIVE) Ur L.pneumophila Ag (NEGATIVE) 04/27/18 04/27/18 04/27/18 Range/Units 08:30 08:10 08:10 WBC (4.5-11.0) 10^3/uL RBC (3.5-6.1) 10^6/uL Hgb (12.0-16.0) g/dL Hct (36.0-48.0) % MCV (80.0-105.0) fl MCH (25.0-35.0) pg MCHC (31.0-37.0) g/dl RDW (11.5-14.5) % Plt Count (120.0-450.0) 10^3/uL MPV (7.0-11.0) fl Gran % (50.0-68.0) % Lymph % (Auto) (22.0-35.0) % [place] % (Auto) (1.0-6.0) % Eos % (Auto) (1.5-5.0) % Baso % (Auto) (0.0-3.0) % Gran # (1.4-6.5) Lymph # (Auto) (1.2-3.4) [place] # (Auto) (0.1-0.6) Eos # (Auto) (0.0-0.7) Baso # (Auto) (0.0-2.0) K/mm3 Neutrophils % (Manual) (50.0-70.0) % Band Neutrophils % (0-2) % Lymphocytes % (Manual) (22.0-35.0) % Monocytes % (Manual) (1.0-6.0) % Platelet Evaluation (NORMAL) pCO2 (35-45) mm/Hg pO2 88 H (30-55) mm/Hg HCO3 (21-28) mmol/L ABG pH (7.35-7.45) ABG Total CO2 (22-28) mmol.L ABG O2 Saturation (95-98) % ABG Base Excess (-2.0-3.0) mmol/L ABG Potassium (3.6-5.2) mmol/L VBG pH 7.29 L (7.32-7.43) VBG pCO2 51.0 (40-60) VBG HCO3 24.5 (21-28) mmol/l VBG Total CO2 26.1 (22-28) mmol.L VBG O2 Sat (Calc) 95.9 H (40-65) % VBG Base Excess -2.7 L (0.0-2.0) mmol/L VBG Potassium 3.1 L (3.6-5.2) mmol/L Glucose 534 H* D (65-105) mg/dl Lactate 4.2 H* (0.7-2.1) mmol/L FiO2 21.0 % Sodium 140.0 (132-148) mmol/L Potassium (3.6-5.0) mmol/L Chloride 102.0 (98-107) mmol/L Carbon Dioxide (21-33) mmol/L Anion Gap (10-20) BUN (7-21) mg/dL Creatinine (0.7-1.2) mg/dl Est GFR ( Amer) Est GFR (Non-Af Amer) POC Glucose (mg/dL) (65-110) mg/dL Random Glucose (70-110) mg/dL Calcium (8.4-10.5) mg/dL Phosphorus (2.5-4.5) mg/dL Magnesium (1.7-2.2) mg/dL Total Bilirubin (0.2-1.3) mg/dL AST (14-36) U/L ALT (7-56) U/L Alkaline Phosphatase (38-126) U/L Troponin I ng/mL Total Protein (5.8-8.3) g/dL Albumin (3.0-4.8) g/dL Globulin gm/dL Albumin/Globulin Ratio (1.1-1.8) Triglycerides (35-160) mg/dL Cholesterol (130-200) mg/dL LDL Cholesterol Direct (0-129) mg/dL HDL Cholesterol (29-60) mg/dL Procalcitonin (0.19-0.49) NG/ML TSH 3rd Generation (0.46-4.68) mIU/mL Arterial Blood Potassium (3.6-5.2) mmol/L Venous Blood Potassium 3.1 L (3.6-5.2) mmol/L Influenza Typ A,B (EIA) Negative for flu a/b (NEGATIVE) Ur L.pneumophila Ag Negative (NEGATIVE) 04/27/18 04/27/18 04/27/18 Range/Units 07:50 07:50 03:50 WBC 11.0 (4.5-11.0) 10^3/uL RBC 4.21 (3.5-6.1) 10^6/uL Hgb 10.6 L (12.0-16.0) g/dL Hct 33.3 L (36.0-48.0) % MCV 79.1 L (80.0-105.0) fl MCH 25.2 (25.0-35.0) pg MCHC 31.8 (31.0-37.0) g/dl RDW 13.8 (11.5-14.5) % Plt Count 318 (120.0-450.0) 10^3/uL MPV 9.8 (7.0-11.0) fl Gran % 91.5 H (50.0-68.0) % Lymph % (Auto) 6.1 L (22.0-35.0) % [place] % (Auto) 2.3 (1.0-6.0) % Eos % (Auto) 0.0 L (1.5-5.0) % Baso % (Auto) 0.1 (0.0-3.0) % Gran # 10.03 H (1.4-6.5) Lymph # (Auto) 0.7 L (1.2-3.4) [place] # (Auto) 0.3 (0.1-0.6) Eos # (Auto) 0.0 (0.0-0.7) Baso # (Auto) 0.01 (0.0-2.0) K/mm3 Neutrophils % (Manual) 87 H (50.0-70.0) % Band Neutrophils % 5 H (0-2) % Lymphocytes % (Manual) 6 L (22.0-35.0) % Monocytes % (Manual) 2 (1.0-6.0) % Platelet Evaluation Normal (NORMAL) pCO2 (35-45) mm/Hg pO2 (30-55) mm/Hg HCO3 (21-28) mmol/L ABG pH (7.35-7.45) ABG Total CO2 (22-28) mmol.L ABG O2 Saturation (95-98) % ABG Base Excess (-2.0-3.0) mmol/L ABG Potassium (3.6-5.2) mmol/L VBG pH (7.32-7.43) VBG pCO2 (40-60) VBG HCO3 (21-28) mmol/l VBG Total CO2 (22-28) mmol.L VBG O2 Sat (Calc) (40-65) % VBG Base Excess (0.0-2.0) mmol/L VBG Potassium (3.6-5.2) mmol/L Glucose (65-105) mg/dl Lactate (0.7-2.1) mmol/L FiO2 % Sodium 139 (132-148) mmol/L Potassium 3.5 L (3.6-5.0) mmol/L Chloride 104 (98-107) mmol/L Carbon Dioxide 24 (21-33) mmol/L Anion Gap 15 (10-20) BUN 27 H (7-21) mg/dL Creatinine 0.8 (0.7-1.2) mg/dl Est GFR ( Amer) > 60 Est GFR (Non-Af Amer) > 60 POC Glucose (mg/dL) (65-110) mg/dL Random Glucose 510 H* (70-110) mg/dL Calcium 8.5 (8.4-10.5) mg/dL Phosphorus 4.9 H (2.5-4.5) mg/dL Magnesium 1.7 (1.7-2.2) mg/dL Total Bilirubin 0.3 (0.2-1.3) mg/dL AST 33 (14-36) U/L ALT 35 (7-56) U/L Alkaline Phosphatase 106 (38-126) U/L Troponin I ng/mL Total Protein 5.4 L (5.8-8.3) g/dL Albumin 2.8 L (3.0-4.8) g/dL Globulin 2.6 gm/dL Albumin/Globulin Ratio 1.1 (1.1-1.8) Triglycerides (35-160) mg/dL Cholesterol (130-200) mg/dL LDL Cholesterol Direct (0-129) mg/dL HDL Cholesterol (29-60) mg/dL Procalcitonin < 0.05 L (0.19-0.49) NG/ML TSH 3rd Generation (0.46-4.68) mIU/mL Arterial Blood Potassium (3.6-5.2) mmol/L Venous Blood Potassium (3.6-5.2) mmol/L Influenza Typ A,B (EIA) (NEGATIVE) Ur L.pneumophila Ag (NEGATIVE) Laboratory Results - last 24 hr 11/28/18 11/28/18 11/28/18 03:50 07:50 07:50 WBC 11.0 RBC 4.21 Hgb 10.6 L Hct 33.3 L MCV 79.1 L MCH 25.2 MCHC 31.8 RDW 13.8 Plt Count 318 MPV 9.8 Gran % 91.5 H Lymph % (Auto) 6.1 L [place] % (Auto) 2.3 Eos % (Auto) 0.0 L Baso % (Auto) 0.1 Gran # 10.03 H Lymph # (Auto) 0.7 L [place] # (Auto) 0.3 Eos # (Auto) 0.0 Baso # (Auto) 0.01 Neutrophils % (Manual) 87 H Band Neutrophils % 5 H Lymphocytes % (Manual) 6 L Monocytes % (Manual) 2 Platelet Evaluation Normal pCO2 pO2 HCO3 ABG pH ABG Total CO2 ABG O2 Saturation ABG Base Excess ABG Potassium VBG pH VBG pCO2 VBG HCO3 VBG Total CO2 VBG O2 Sat (Calc) VBG Base Excess VBG Potassium Glucose Lactate FiO2 Sodium 139 Potassium 3.5 L Chloride 104 Carbon Dioxide 24 Anion Gap 15 BUN 27 H Creatinine 0.8 Est GFR ( Amer) > 60 Est GFR (Non-Af Amer) > 60 POC Glucose (mg/dL) Random Glucose 510 H* Calcium 8.5 Phosphorus 4.9 H Magnesium 1.7 Total Bilirubin 0.3 AST 33 ALT 35 Alkaline Phosphatase 106 Troponin I Total Protein 5.4 L Albumin 2.8 L Globulin 2.6 Albumin/Globulin Ratio 1.1 Triglycerides Cholesterol LDL Cholesterol Direct HDL Cholesterol Procalcitonin < 0.05 L TSH 3rd Generation Arterial Blood Potassium Venous Blood Potassium Influenza Typ A,B (EIA) Ur L.pneumophila Ag 04/27/18 04/27/18 04/27/18 08:10 08:10 08:30 WBC RBC Hgb Hct MCV MCH MCHC RDW Plt Count MPV Gran % Lymph % (Auto) [place] % (Auto) Eos % (Auto) Baso % (Auto) Gran # Lymph # (Auto) [place] # (Auto) Eos # (Auto) Baso # (Auto) Neutrophils % (Manual) Band Neutrophils % Lymphocytes % (Manual) Monocytes % (Manual) Platelet Evaluation pCO2 pO2 88 H HCO3 ABG pH ABG Total CO2 ABG O2 Saturation ABG Base Excess ABG Potassium VBG pH 7.29 L VBG pCO2 51.0 VBG HCO3 24.5 VBG Total CO2 26.1 VBG O2 Sat (Calc) 95.9 H VBG Base Excess -2.7 L VBG Potassium 3.1 L Glucose 534 H* D Lactate 4.2 H* FiO2 21.0 Sodium 140.0 Potassium Chloride 102.0 Carbon Dioxide Anion Gap BUN Creatinine Est GFR ( Amer) Est GFR (Non-Af Amer) POC Glucose (mg/dL) Random Glucose Calcium Phosphorus Magnesium Total Bilirubin AST ALT Alkaline Phosphatase Troponin I Total Protein Albumin Globulin Albumin/Globulin Ratio Triglycerides Cholesterol LDL Cholesterol Direct HDL Cholesterol Procalcitonin TSH 3rd Generation Arterial Blood Potassium Venous Blood Potassium 3.1 L Influenza Typ A,B (EIA) Negative for flu a/b Ur L.pneumophila Ag Negative 04/27/18 04/27/18 04/27/18 09:27 10:05 10:50 WBC RBC Hgb Hct MCV MCH MCHC RDW Plt Count MPV Gran % Lymph % (Auto) [place] % (Auto) Eos % (Auto) Baso % (Auto) Gran # Lymph # (Auto) [place] # (Auto) Eos # (Auto) Baso # (Auto) Neutrophils % (Manual) Band Neutrophils % Lymphocytes % (Manual) Monocytes % (Manual) Platelet Evaluation pCO2 43 pO2 87.0 HCO3 26.0 ABG pH 7.39 ABG Total CO2 27.3 ABG O2 Saturation 96.7 ABG Base Excess 0.8 ABG Potassium 2.7 L VBG pH VBG pCO2 VBG HCO3 VBG Total CO2 VBG O2 Sat (Calc) VBG Base Excess VBG Potassium Glucose 313 H Lactate 3.7 H FiO2 28.0 Sodium 141.0 Potassium Chloride 108.0 H Carbon Dioxide Anion Gap BUN Creatinine Est GFR ( Amer) Est GFR (Non-Af Amer) POC Glucose (mg/dL) 471 H* 332 H Random Glucose Calcium Phosphorus Magnesium Total Bilirubin AST ALT Alkaline Phosphatase Troponin I Total Protein Albumin Globulin Albumin/Globulin Ratio Triglycerides Cholesterol LDL Cholesterol Direct HDL Cholesterol Procalcitonin TSH 3rd Generation Arterial Blood Potassium 2.7 L Venous Blood Potassium Influenza Typ A,B (EIA) Ur L.pneumophila Ag 04/27/18 04/27/18 04/27/18 11:05 12:03 12:05 WBC RBC Hgb Hct MCV MCH MCHC RDW Plt Count MPV Gran % Lymph % (Auto) [place] % (Auto) Eos % (Auto) Baso % (Auto) Gran # Lymph # (Auto) [place] # (Auto) Eos # (Auto) Baso # (Auto) Neutrophils % (Manual) Band Neutrophils % Lymphocytes % (Manual) Monocytes % (Manual) Platelet Evaluation pCO2 pO2 81 H HCO3 ABG pH ABG Total CO2 ABG O2 Saturation ABG Base Excess ABG Potassium VBG pH 7.39 VBG pCO2 47.0 VBG HCO3 28.5 H VBG Total CO2 29.9 H VBG O2 Sat (Calc) 96.3 H VBG Base Excess 2.8 H VBG Potassium 2.8 L Glucose 262 H Lactate 3.7 H FiO2 21.0 Sodium 141.0 Potassium Chloride 106.0 Carbon Dioxide Anion Gap BUN Creatinine Est GFR ( Amer) Est GFR (Non-Af Amer) POC Glucose (mg/dL) 300 H 252 H Random Glucose Calcium Phosphorus Magnesium Total Bilirubin AST ALT Alkaline Phosphatase Troponin I Total Protein Albumin Globulin Albumin/Globulin Ratio Triglycerides Cholesterol LDL Cholesterol Direct HDL Cholesterol Procalcitonin TSH 3rd Generation Arterial Blood Potassium Venous Blood Potassium 2.8 L Influenza Typ A,B (EIA) Ur L.pneumophila Ag 04/27/18 04/27/18 04/27/18 13:50 14:04 14:57 WBC RBC Hgb Hct MCV MCH MCHC RDW Plt Count MPV Gran % Lymph % (Auto) [place] % (Auto) Eos % (Auto) Baso % (Auto) Gran # Lymph # (Auto) [place] # (Auto) Eos # (Auto) Baso # (Auto) Neutrophils % (Manual) Band Neutrophils % Lymphocytes % (Manual) Monocytes % (Manual) Platelet Evaluation pCO2 pO2 HCO3 ABG pH ABG Total CO2 ABG O2 Saturation ABG Base Excess ABG Potassium VBG pH VBG pCO2 VBG HCO3 VBG Total CO2 VBG O2 Sat (Calc) VBG Base Excess VBG Potassium Glucose Lactate FiO2 Sodium 138 Potassium 3.6 Chloride 108 H Carbon Dioxide 28 Anion Gap 5 L BUN 30 H Creatinine 0.9 Est GFR ( Amer) > 60 Est GFR (Non-Af Amer) > 60 POC Glucose (mg/dL) 131 H 94 Random Glucose 127 H Calcium 8.1 L Phosphorus Magnesium Total Bilirubin 0.2 AST 22 ALT 29 Alkaline Phosphatase 77 Troponin I Total Protein 4.9 L Albumin 2.4 L Globulin 2.5 Albumin/Globulin Ratio 1.0 L Triglycerides Cholesterol LDL Cholesterol Direct HDL Cholesterol Procalcitonin TSH 3rd Generation Arterial Blood Potassium Venous Blood Potassium Influenza Typ A,B (EIA) Ur L.pneumophila Ag 04/27/18 04/27/18 04/27/18 16:04 16:43 18:31 WBC RBC Hgb Hct MCV MCH MCHC RDW Plt Count MPV Gran % Lymph % (Auto) [place] % (Auto) Eos % (Auto) Baso % (Auto) Gran # Lymph # (Auto) [place] # (Auto) Eos # (Auto) Baso # (Auto) Neutrophils % (Manual) Band Neutrophils % Lymphocytes % (Manual) Monocytes % (Manual) Platelet Evaluation pCO2 pO2 HCO3 ABG pH ABG Total CO2 ABG O2 Saturation ABG Base Excess ABG Potassium VBG pH VBG pCO2 VBG HCO3 VBG Total CO2 VBG O2 Sat (Calc) VBG Base Excess VBG Potassium Glucose Lactate FiO2 Sodium Potassium Chloride Carbon Dioxide Anion Gap BUN Creatinine Est GFR ( Amer) Est GFR (Non-Af Amer) POC Glucose (mg/dL) 85 143 H 143 H Random Glucose Calcium Phosphorus Magnesium Total Bilirubin AST ALT Alkaline Phosphatase Troponin I Total Protein Albumin Globulin Albumin/Globulin Ratio Triglycerides Cholesterol LDL Cholesterol Direct HDL Cholesterol Procalcitonin TSH 3rd Generation Arterial Blood Potassium Venous Blood Potassium Influenza Typ A,B (EIA) Ur L.pneumophila Ag 04/27/18 04/28/18 04/28/18 20:24 00:20 00:38 WBC RBC Hgb Hct MCV MCH MCHC RDW Plt Count MPV Gran % Lymph % (Auto) [place] % (Auto) Eos % (Auto) Baso % (Auto) Gran # Lymph # (Auto) [place] # (Auto) Eos # (Auto) Baso # (Auto) Neutrophils % (Manual) Band Neutrophils % Lymphocytes % (Manual) Monocytes % (Manual) Platelet Evaluation pCO2 pO2 HCO3 ABG pH ABG Total CO2 ABG O2 Saturation ABG Base Excess ABG Potassium VBG pH VBG pCO2 VBG HCO3 VBG Total CO2 VBG O2 Sat (Calc) VBG Base Excess VBG Potassium Glucose Lactate FiO2 Sodium Potassium Chloride Carbon Dioxide Anion Gap BUN Creatinine Est GFR ( Amer) Est GFR (Non-Af Amer) POC Glucose (mg/dL) 118 H < 20 L* 85 Random Glucose Calcium Phosphorus Magnesium Total Bilirubin AST ALT Alkaline Phosphatase Troponin I Total Protein Albumin Globulin Albumin/Globulin Ratio Triglycerides Cholesterol LDL Cholesterol Direct HDL Cholesterol Procalcitonin TSH 3rd Generation Arterial Blood Potassium Venous Blood Potassium Influenza Typ A,B (EIA) Ur L.pneumophila Ag 04/28/18 04/28/18 04/28/18 02:07 03:04 04:59 WBC 7.7 D RBC 3.54 Hgb 9.0 L Hct 28.3 L MCV 79.9 L MCH 25.4 MCHC 31.8 RDW 14.3 Plt Count 242 MPV 9.4 Gran % Lymph % (Auto) [place] % (Auto) Eos % (Auto) Baso % (Auto) Gran # Lymph # (Auto) [place] # (Auto) Eos # (Auto) Baso # (Auto) Neutrophils % (Manual) Band Neutrophils % Lymphocytes % (Manual) Monocytes % (Manual) Platelet Evaluation pCO2 pO2 HCO3 ABG pH ABG Total CO2 ABG O2 Saturation ABG Base Excess ABG Potassium VBG pH VBG pCO2 VBG HCO3 VBG Total CO2 VBG O2 Sat (Calc) VBG Base Excess VBG Potassium Glucose Lactate FiO2 Sodium Potassium Chloride Carbon Dioxide Anion Gap BUN Creatinine Est GFR ( Amer) Est GFR (Non-Af Amer) POC Glucose (mg/dL) 32 L* 107 Random Glucose Calcium Phosphorus Magnesium Total Bilirubin AST ALT Alkaline Phosphatase Troponin I Total Protein Albumin Globulin Albumin/Globulin Ratio Triglycerides Cholesterol LDL Cholesterol Direct HDL Cholesterol Procalcitonin TSH 3rd Generation Arterial Blood Potassium Venous Blood Potassium Influenza Typ A,B (EIA) Ur L.pneumophila Ag 04/28/18 04/28/18 04/28/18 04:59 04:59 05:00 WBC RBC Hgb Hct MCV MCH MCHC RDW Plt Count MPV Gran % Lymph % (Auto) [place] % (Auto) Eos % (Auto) Baso % (Auto) Gran # Lymph # (Auto) [place] # (Auto) Eos # (Auto) Baso # (Auto) Neutrophils % (Manual) Band Neutrophils % Lymphocytes % (Manual) Monocytes % (Manual) Platelet Evaluation pCO2 pO2 HCO3 ABG pH ABG Total CO2 ABG O2 Saturation ABG Base Excess ABG Potassium VBG pH VBG pCO2 VBG HCO3 VBG Total CO2 VBG O2 Sat (Calc) VBG Base Excess VBG Potassium Glucose Lactate FiO2 Sodium 140 Potassium 3.7 Chloride 108 H Carbon Dioxide 30 Anion Gap 5 L BUN 32 H Creatinine 1.4 H Est GFR ( Amer) 47 Est GFR (Non-Af Amer) 39 POC Glucose (mg/dL) 66 Random Glucose 73 Calcium 7.8 L Phosphorus 4.4 Magnesium 1.7 Total Bilirubin 0.1 L AST 21 ALT 32 Alkaline Phosphatase 69 Troponin I 0.02 D Total Protein 4.5 L Albumin 2.1 L Globulin 2.4 Albumin/Globulin Ratio 0.9 L Triglycerides 35 Cholesterol 157 LDL Cholesterol Direct 59 HDL Cholesterol 84 H Procalcitonin TSH 3rd Generation 0.67 Arterial Blood Potassium Venous Blood Potassium Influenza Typ A,B (EIA) Ur L.pneumophila Ag EKG/Cardiology Studies: Cardiology / EKG Studies 04/28/18 04:40 EKG [ELECTROCARDIOGRAM] Stat Comment: Reason For Exam: chest pain PRE OP:: N Does Patient Have a Pacemaker?: No Fingerstick Blood Sugar Results: 137 Critical Care Progress Note - Nutrition Nutrition: Nutrition Category Date Time Status NPO Diet [DIET] Diets 04/27/18 Lunch Ordered Assessment/Plan - Assessment and Plan (Free Text) Assessment: 57 year old female with PMH of HTN, uncontrolled DM2 complicated by retinopathy/gastroparesis, MDD, LAUREN, and TIA/CVA admitted to ICU for treatment of DKA and AMS Plan: neuro: -AAOx3. -maintain normothermia CVS: -EKG: QTc 537 (prolonged likely due to reglan use) -started norvasc 5mg daily Pulm: -CT chest :Bilateral basilar ground glass density/airspace consolidations more on the right side. Probably multifocal bronchopneumonia -xopenex q6h prn -aspiration precautions -pulmonology following GI: -chronic gastroparesis in the setting of DM2 -CT A/P- fluid filled stomach and colon- gastroparesis and possible ileus in setting of poorly controlled diabetes -EGD 10/2017 showed H. pylori negative bile gastritis and fundic gland polyps. -continue Maloox, dicyclomine, carafate -d/c reglan, zofran due to QTc prolongation ID: -sepsis due to right lower lobe HCAP -CXR:right-sided infiltrate -blood cx negative to date -f/u sputum cx, PCT, urine Legionella Ag, PCT -continue Vancomycin, Zosyn and Doxycycline Endo: -DKA:AG closed, D/C insulin drip, started on D5@100ml/hr, levemir, ISS-low -developed hypoglycemia overnight. will adjust levemir dose -uncontrolled DM2 with retinopathy/gastroparesis -endocrinology consult Renal: -BUN/Cr elevation from 30/0.9 to 32/1.4 today -d/c toradol due to impaired kidney function -I/O:3072/1700 in the last 24 hr -maintain euvolemia -avoid nephrotoxic drugs Prophylaxis: -GI ppx: protonix 40 -DVT ppx: SCD -Diet advancd to carb consistent Dipo: Patient is tolerating diet. vitals stable. Transfer to med/surg today Case reviewed and plan discussed with attending Dr Esqueda <Delfin Esqueda - Last Filed: 04/28/18 13:37> CCU Objective - Vital Signs / Intake & Output Vital Signs (Last 4 hours): Vital Signs Pulse Resp BP 04/28/18 11:13 84 20 04/28/18 11:12 83 13 04/28/18 11:11 84 16 04/28/18 11:10 82 16 04/28/18 11:09 84 14 04/28/18 11:08 84 12 04/28/18 11:07 83 13 04/28/18 11:06 84 32 H 04/28/18 11:05 83 24 04/28/18 11:04 80 42 H 04/28/18 11:03 119 H 17 04/28/18 11:02 120 H 8 L 04/28/18 11:01 120 H 18 04/28/18 11:00 166/96 H 04/28/18 10:59 119 H 13 04/28/18 10:58 119 H 19 04/28/18 10:57 119 H 27 H 04/28/18 10:56 119 H 23 04/28/18 10:55 119 H 22 04/28/18 10:54 118 H 20 04/28/18 10:53 119 H 18 04/28/18 10:52 119 H 13 04/28/18 10:51 118 H 27 H 04/28/18 10:50 119 H 21 04/28/18 10:49 119 H 26 H 04/28/18 10:48 118 H 25 H 04/28/18 10:47 119 H 04/28/18 10:46 119 H 18 04/28/18 10:45 119 H 20 04/28/18 10:44 119 H 26 H 04/28/18 10:43 119 H 04/28/18 10:42 119 H 35 H 04/28/18 10:00 76 Intake and Output (Last 8hrs): Intake & Output 04/27/18 04/28/18 04/28/18 22:59 06:59 14:59 Intake Total 1362 1450 Output Total 1400 300 Balance -38 1150 Weight 130 lb 130 lb Intake: IV 1362 1450 IVF 1200 1450 IVPB 100 Insulin drip 62 Oral 0 Output: Urine 1400 300 Urethral (Wan) 1400 300 Other: # Bowel Movements 0 - Medications Active Medications: Active Medications Generic Name Dose Route Start Last Admin Trade Name Freq PRN Reason Stop Dose Admin Amlodipine Besylate 5 mg 04/28/18 10:00 04/28/18 09:17 Norvasc PO 5 mg DAILY PATTI Administration Dextrose 0 ml 04/27/18 15:23 04/27/18 16:09 Dextrose 50% Inj IV 50 ml STAT PRN Administration Hypoglycemia Protocol Protocol Dicyclomine HCl 10 mg 04/28/18 09:15 04/28/18 09:32 Bentyl PO 10 mg BID PRN Administration abdominal pain Piperacillin Sod/Tazobactam Sod 100 mls @ 25 mls/hr 04/27/18 14:00 04/28/18 13:32 Zosyn 3.375 In Ns 100ml IVPB 05/04/18 14:01 25 mls/hr Q8 PATTI Administration Protocol Doxycycline Hyclate 100 mg/ 100 mls @ 100 mls/hr 04/27/18 22:00 04/28/18 09:12 Sodium Chloride IVPB 100 mls/hr Q12 PATTI Administration Protocol Dextrose 1,000 mls @ 0 mls/hr 04/27/18 15:23 Dextrose 5% In Water 1000 Ml IV .Q0M PRN Hypoglycemia Protocol Protocol Per Protocol Dextrose 1,000 mls @ 100 mls/hr 04/28/18 08:00 04/28/18 08:00 Dextrose 5% In Water 1000 Ml IV 100 mls/hr .Q10H PATTI Administration Insulin Human Lispro 0 units 04/27/18 20:00 04/28/18 04:10 Humalog SC Not Given Q4H PATTI Levalbuterol HCl 1.25 mg 04/27/18 08:00 04/28/18 13:11 Xopenex IH 1.25 mg [id number] PATTI Administration Lorazepam 0.5 mg 04/28/18 13:30 Ativan PO BID [facility] Protocol Pantoprazole Sodium 40 mg 04/28/18 09:14 Protonix Inj IVP ACBD [facility] Sucralfate 1 gm 04/28/18 16:00 Carafate Oral Susp PO 0600,1600 [facility] - Patient Studies Lab Studies: Microbiology Studies 04/27/18 05:35 Blood Culture - Preliminary Blood NO GROWTH AFTER 24 HOURS 04/27/18 05:20 Blood Culture - Preliminary Blood NO GROWTH AFTER 24 HOURS Lab Studies 04/28/18 04/28/18 04/28/18 Range/Units 06:56 05:00 05:00 WBC (4.5-11.0) 10^3/uL RBC (3.5-6.1) 10^6/uL Hgb (12.0-16.0) g/dL Hct (36.0-48.0) % MCV (80.0-105.0) fl MCH (25.0-35.0) pg MCHC (31.0-37.0) g/dl RDW (11.5-14.5) % Plt Count (120.0-450.0) 10^3/uL MPV (7.0-11.0) fl Sodium (132-148) mmol/L Potassium (3.6-5.0) mmol/L Chloride (98-107) mmol/L Carbon Dioxide (21-33) mmol/L Anion Gap (10-20) BUN (7-21) mg/dL Creatinine (0.7-1.2) mg/dl Est GFR ( Amer) Est GFR (Non-Af Amer) POC Glucose (mg/dL) 137 H 66 (65-110) mg/dL Random Glucose (70-110) mg/dL Hemoglobin A1c (4.2-6.5) % Calcium (8.4-10.5) mg/dL Phosphorus (2.5-4.5) mg/dL Magnesium (1.7-2.2) mg/dL Total Bilirubin (0.2-1.3) mg/dL AST (14-36) U/L ALT (7-56) U/L Alkaline Phosphatase (38-126) U/L Troponin I ng/mL Total Protein (5.8-8.3) g/dL Albumin (3.0-4.8) g/dL Globulin gm/dL Albumin/Globulin Ratio (1.1-1.8) Triglycerides (35-160) mg/dL Cholesterol (130-200) mg/dL LDL Cholesterol Direct (0-129) mg/dL HDL Cholesterol (29-60) mg/dL TSH 3rd Generation (0.46-4.68) mIU/mL Random Vancomycin 18.4 L (20-40) ug/mL 04/28/18 04/28/18 04/28/18 Range/Units 04:59 04:59 04:59 WBC (4.5-11.0) 10^3/uL RBC (3.5-6.1) 10^6/uL Hgb (12.0-16.0) g/dL Hct (36.0-48.0) % MCV (80.0-105.0) fl MCH (25.0-35.0) pg MCHC (31.0-37.0) g/dl RDW (11.5-14.5) % Plt Count (120.0-450.0) 10^3/uL MPV (7.0-11.0) fl Sodium 140 (132-148) mmol/L Potassium 3.7 (3.6-5.0) mmol/L Chloride 108 H (98-107) mmol/L Carbon Dioxide 30 (21-33) mmol/L Anion Gap 5 L (10-20) BUN 32 H (7-21) mg/dL Creatinine 1.4 H (0.7-1.2) mg/dl Est GFR ( Amer) 47 Est GFR (Non-Af Amer) 39 POC Glucose (mg/dL) (65-110) mg/dL Random Glucose 73 (70-110) mg/dL Hemoglobin A1c 12.9 H (4.2-6.5) % Calcium 7.8 L (8.4-10.5) mg/dL Phosphorus 4.4 (2.5-4.5) mg/dL Magnesium 1.7 (1.7-2.2) mg/dL Total Bilirubin 0.1 L (0.2-1.3) mg/dL AST 21 (14-36) U/L ALT 32 (7-56) U/L Alkaline Phosphatase 69 (38-126) U/L Troponin I 0.02 D ng/mL Total Protein 4.5 L (5.8-8.3) g/dL Albumin 2.1 L (3.0-4.8) g/dL Globulin 2.4 gm/dL Albumin/Globulin Ratio 0.9 L (1.1-1.8) Triglycerides 35 (35-160) mg/dL Cholesterol 157 (130-200) mg/dL LDL Cholesterol Direct 59 (0-129) mg/dL HDL Cholesterol 84 H (29-60) mg/dL TSH 3rd Generation 0.67 (0.46-4.68) mIU/mL Random Vancomycin (20-40) ug/mL 04/28/18 04/28/18 04/28/18 Range/Units 04:59 03:04 02:07 WBC 7.7 D (4.5-11.0) 10^3/uL RBC 3.54 (3.5-6.1) 10^6/uL Hgb 9.0 L (12.0-16.0) g/dL Hct 28.3 L (36.0-48.0) % MCV 79.9 L (80.0-105.0) fl MCH 25.4 (25.0-35.0) pg MCHC 31.8 (31.0-37.0) g/dl RDW 14.3 (11.5-14.5) % Plt Count 242 (120.0-450.0) 10^3/uL MPV 9.4 (7.0-11.0) fl Sodium (132-148) mmol/L Potassium (3.6-5.0) mmol/L Chloride (98-107) mmol/L Carbon Dioxide (21-33) mmol/L Anion Gap (10-20) BUN (7-21) mg/dL Creatinine (0.7-1.2) mg/dl Est GFR ( Amer) Est GFR (Non-Af Amer) POC Glucose (mg/dL) 107 32 L* (65-110) mg/dL Random Glucose (70-110) mg/dL Hemoglobin A1c (4.2-6.5) % Calcium (8.4-10.5) mg/dL Phosphorus (2.5-4.5) mg/dL Magnesium (1.7-2.2) mg/dL Total Bilirubin (0.2-1.3) mg/dL AST (14-36) U/L ALT (7-56) U/L Alkaline Phosphatase (38-126) U/L Troponin I ng/mL Total Protein (5.8-8.3) g/dL Albumin (3.0-4.8) g/dL Globulin gm/dL Albumin/Globulin Ratio (1.1-1.8) Triglycerides (35-160) mg/dL Cholesterol (130-200) mg/dL LDL Cholesterol Direct (0-129) mg/dL HDL Cholesterol (29-60) mg/dL TSH 3rd Generation (0.46-4.68) mIU/mL Random Vancomycin (20-40) ug/mL 04/28/18 04/28/18 04/27/18 Range/Units 00:38 00:20 20:24 WBC (4.5-11.0) 10^3/uL RBC (3.5-6.1) 10^6/uL Hgb (12.0-16.0) g/dL Hct (36.0-48.0) % MCV (80.0-105.0) fl MCH (25.0-35.0) pg MCHC (31.0-37.0) g/dl RDW (11.5-14.5) % Plt Count (120.0-450.0) 10^3/uL MPV (7.0-11.0) fl Sodium (132-148) mmol/L Potassium (3.6-5.0) mmol/L Chloride (98-107) mmol/L Carbon Dioxide (21-33) mmol/L Anion Gap (10-20) BUN (7-21) mg/dL Creatinine (0.7-1.2) mg/dl Est GFR ( Amer) Est GFR (Non-Af Amer) POC Glucose (mg/dL) 85 < 20 L* 118 H (65-110) mg/dL Random Glucose (70-110) mg/dL Hemoglobin A1c (4.2-6.5) % Calcium (8.4-10.5) mg/dL Phosphorus (2.5-4.5) mg/dL Magnesium (1.7-2.2) mg/dL Total Bilirubin (0.2-1.3) mg/dL AST (14-36) U/L ALT (7-56) U/L Alkaline Phosphatase (38-126) U/L Troponin I ng/mL Total Protein (5.8-8.3) g/dL Albumin (3.0-4.8) g/dL Globulin gm/dL Albumin/Globulin Ratio (1.1-1.8) Triglycerides (35-160) mg/dL Cholesterol (130-200) mg/dL LDL Cholesterol Direct (0-129) mg/dL HDL Cholesterol (29-60) mg/dL TSH 3rd Generation (0.46-4.68) mIU/mL Random Vancomycin (20-40) ug/mL 04/27/18 04/27/18 04/27/18 Range/Units 18:31 16:43 16:04 WBC (4.5-11.0) 10^3/uL RBC (3.5-6.1) 10^6/uL Hgb (12.0-16.0) g/dL Hct (36.0-48.0) % MCV (80.0-105.0) fl MCH (25.0-35.0) pg MCHC (31.0-37.0) g/dl RDW (11.5-14.5) % Plt Count (120.0-450.0) 10^3/uL MPV (7.0-11.0) fl Sodium (132-148) mmol/L Potassium (3.6-5.0) mmol/L Chloride (98-107) mmol/L Carbon Dioxide (21-33) mmol/L Anion Gap (10-20) BUN (7-21) mg/dL Creatinine (0.7-1.2) mg/dl Est GFR ( Amer) Est GFR (Non-Af Amer) POC Glucose (mg/dL) 143 H 143 H 85 (65-110) mg/dL Random Glucose (70-110) mg/dL Hemoglobin A1c (4.2-6.5) % Calcium (8.4-10.5) mg/dL Phosphorus (2.5-4.5) mg/dL Magnesium (1.7-2.2) mg/dL Total Bilirubin (0.2-1.3) mg/dL AST (14-36) U/L ALT (7-56) U/L Alkaline Phosphatase (38-126) U/L Troponin I ng/mL Total Protein (5.8-8.3) g/dL Albumin (3.0-4.8) g/dL Globulin gm/dL Albumin/Globulin Ratio (1.1-1.8) Triglycerides (35-160) mg/dL Cholesterol (130-200) mg/dL LDL Cholesterol Direct (0-129) mg/dL HDL Cholesterol (29-60) mg/dL TSH 3rd Generation (0.46-4.68) mIU/mL Random Vancomycin (20-40) ug/mL 04/27/18 04/27/18 04/27/18 Range/Units 14:57 14:04 13:50 WBC (4.5-11.0) 10^3/uL RBC (3.5-6.1) 10^6/uL Hgb (12.0-16.0) g/dL Hct (36.0-48.0) % MCV (80.0-105.0) fl MCH (25.0-35.0) pg MCHC (31.0-37.0) g/dl RDW (11.5-14.5) % Plt Count (120.0-450.0) 10^3/uL MPV (7.0-11.0) fl Sodium 138 (132-148) mmol/L Potassium 3.6 (3.6-5.0) mmol/L Chloride 108 H (98-107) mmol/L Carbon Dioxide 28 (21-33) mmol/L Anion Gap 5 L (10-20) BUN 30 H (7-21) mg/dL Creatinine 0.9 (0.7-1.2) mg/dl Est GFR ( Amer) > 60 Est GFR (Non-Af Amer) > 60 POC Glucose (mg/dL) 94 131 H (65-110) mg/dL Random Glucose 127 H (70-110) mg/dL Hemoglobin A1c (4.2-6.5) % Calcium 8.1 L (8.4-10.5) mg/dL Phosphorus (2.5-4.5) mg/dL Magnesium (1.7-2.2) mg/dL Total Bilirubin 0.2 (0.2-1.3) mg/dL AST 22 (14-36) U/L ALT 29 (7-56) U/L Alkaline Phosphatase 77 (38-126) U/L Troponin I ng/mL Total Protein 4.9 L (5.8-8.3) g/dL Albumin 2.4 L (3.0-4.8) g/dL Globulin 2.5 gm/dL Albumin/Globulin Ratio 1.0 L (1.1-1.8) Triglycerides (35-160) mg/dL Cholesterol (130-200) mg/dL LDL Cholesterol Direct (0-129) mg/dL HDL Cholesterol (29-60) mg/dL TSH 3rd Generation (0.46-4.68) mIU/mL Random Vancomycin (20-40) ug/mL Laboratory Results - last 24 hr 04/27/18 04/27/18 04/27/18 13:50 14:04 14:57 WBC RBC Hgb Hct MCV MCH MCHC RDW Plt Count MPV Sodium 138 Potassium 3.6 Chloride 108 H Carbon Dioxide 28 Anion Gap 5 L BUN 30 H Creatinine 0.9 Est GFR ( Amer) > 60 Est GFR (Non-Af Amer) > 60 POC Glucose (mg/dL) 131 H 94 Random Glucose 127 H Hemoglobin A1c Calcium 8.1 L Phosphorus Magnesium Total Bilirubin 0.2 AST 22 ALT 29 Alkaline Phosphatase 77 Troponin I Total Protein 4.9 L Albumin 2.4 L Globulin 2.5 Albumin/Globulin Ratio 1.0 L Triglycerides Cholesterol LDL Cholesterol Direct HDL Cholesterol TSH 3rd Generation Random Vancomycin 04/27/18 04/27/18 04/27/18 16:04 16:43 18:31 WBC RBC Hgb Hct MCV MCH MCHC RDW Plt Count MPV Sodium Potassium Chloride Carbon Dioxide Anion Gap BUN Creatinine Est GFR ( Amer) Est GFR (Non-Af Amer) POC Glucose (mg/dL) 85 143 H 143 H Random Glucose Hemoglobin A1c Calcium Phosphorus Magnesium Total Bilirubin AST ALT Alkaline Phosphatase Troponin I Total Protein Albumin Globulin Albumin/Globulin Ratio Triglycerides Cholesterol LDL Cholesterol Direct HDL Cholesterol TSH 3rd Generation Random Vancomycin 04/27/18 04/28/18 04/28/18 20:24 00:20 00:38 WBC RBC Hgb Hct MCV MCH MCHC RDW Plt Count MPV Sodium Potassium Chloride Carbon Dioxide Anion Gap BUN Creatinine Est GFR ( Amer) Est GFR (Non-Af Amer) POC Glucose (mg/dL) 118 H < 20 L* 85 Random Glucose Hemoglobin A1c Calcium Phosphorus Magnesium Total Bilirubin AST ALT Alkaline Phosphatase Troponin I Total Protein Albumin Globulin Albumin/Globulin Ratio Triglycerides Cholesterol LDL Cholesterol Direct HDL Cholesterol TSH 3rd Generation Random Vancomycin 04/28/18 04/28/18 04/28/18 02:07 03:04 04:59 WBC 7.7 D RBC 3.54 Hgb 9.0 L Hct 28.3 L MCV 79.9 L MCH 25.4 MCHC 31.8 RDW 14.3 Plt Count 242 MPV 9.4 Sodium Potassium Chloride Carbon Dioxide Anion Gap BUN Creatinine Est GFR ( Amer) Est GFR (Non-Af Amer) POC Glucose (mg/dL) 32 L* 107 Random Glucose Hemoglobin A1c Calcium Phosphorus Magnesium Total Bilirubin AST ALT Alkaline Phosphatase Troponin I Total Protein Albumin Globulin Albumin/Globulin Ratio Triglycerides Cholesterol LDL Cholesterol Direct HDL Cholesterol TSH 3rd Generation Random Vancomycin 04/28/18 04/28/18 04/28/18 04:59 04:59 04:59 WBC RBC Hgb Hct MCV MCH MCHC RDW Plt Count MPV Sodium 140 Potassium 3.7 Chloride 108 H Carbon Dioxide 30 Anion Gap 5 L BUN 32 H Creatinine 1.4 H Est GFR ( Amer) 47 Est GFR (Non-Af Amer) 39 POC Glucose (mg/dL) Random Glucose 73 Hemoglobin A1c 12.9 H Calcium 7.8 L Phosphorus 4.4 Magnesium 1.7 Total Bilirubin 0.1 L AST 21 ALT 32 Alkaline Phosphatase 69 Troponin I 0.02 D Total Protein 4.5 L Albumin 2.1 L Globulin 2.4 Albumin/Globulin Ratio 0.9 L Triglycerides 35 Cholesterol 157 LDL Cholesterol Direct 59 HDL Cholesterol 84 H TSH 3rd Generation 0.67 Random Vancomycin 04/28/18 04/28/18 04/28/18 05:00 05:00 06:56 WBC RBC Hgb Hct MCV MCH MCHC RDW Plt Count MPV Sodium Potassium Chloride Carbon Dioxide Anion Gap BUN Creatinine Est GFR ( Amer) Est GFR (Non-Af Amer) POC Glucose (mg/dL) 66 137 H Random Glucose Hemoglobin A1c Calcium Phosphorus Magnesium Total Bilirubin AST ALT Alkaline Phosphatase Troponin I Total Protein Albumin Globulin Albumin/Globulin Ratio Triglycerides Cholesterol LDL Cholesterol Direct HDL Cholesterol TSH 3rd Generation Random Vancomycin 18.4 L EKG/Cardiology Studies: Cardiology / EKG Studies 04/28/18 04:40 EKG [ELECTROCARDIOGRAM] Stat Comment: Reason For Exam: chest pain PRE OP:: N Does Patient Have a Pacemaker?: No Critical Care Progress Note - Nutrition Nutrition: Nutrition Category Date Time Status Consistent Carbohydrate [DIET] Diets 04/28/18 Breakfast Ordered Attending/Attestation - Attestation I have personally seen and examined this patient.: Yes I have fully participated in the care of the patient.: Yes I have reviewed all pertinent clinical information: Yes Notes (Text): 04/28/18 13:[address] Esqueda note
[2018-04-28] MEDS ORDERED: Insulin Detemir 100 units/ml Vial (Levemir) SC STA (07:48)
--- NOTE | 2018-04-28 08:35 | CP.PCM.PN ---
<Ruthann Cleveland - Last Filed: 04/28/18 08:31> Subjective - Date & Time of Evaluation Date of Evaluation: 04/28/18 Time of Evaluation: 08:32 - Subjective Subjective: Gastroenterology Fellow/PGY6 Progress Note Patient is awake and alert with appropriate response to questioning. Notes resolved abdominal pain. Endorses vomiting, feeling weak, and fainting at home. Multiple episodes of hypoglycemia noted overnight. A 12-point review of systems negative except for as above. Objective - Vital Signs/Intake and Output Vital Signs (last 24 hours): Temp Pulse Resp BP Pulse Ox 98.2 F 76 13 109/63 99 04/28/18 04:00 04/28/18 06:50 04/28/18 06:50 04/28/18 06:00 04/28/18 06:50 Intake and Output: 04/28/18 04/28/18 06:59 18:59 Intake Total 1450 Output Total 300 Balance 1150 - Medications Medications: Current Medications Amlodipine Besylate (Norvasc) 5 mg PO DAILY [facility] Dextrose (Dextrose 50% Inj) 0 ml IV STAT PRN; Protocol PRN Reason: Hypoglycemia Protocol Last Admin: 04/27/18 16:09 Dose: 50 ml Piperacillin Sod/Tazobactam Sod (Zosyn 3.375 In Ns 100ml) 100 mls @ 25 mls/hr IVPB Q8 PATTI; Protocol Stop: 05/04/18 14:01 Last Admin: 04/28/18 05:43 Dose: 25 mls/hr Doxycycline Hyclate 100 mg/ (Sodium Chloride) 100 mls @ 100 mls/hr IVPB Q12 PATTI; Protocol Last Admin: 04/27/18 22:00 Dose: 100 mls/hr Dextrose (Dextrose 5% In Water 1000 Ml) 1,000 mls @ 0 mls/hr IV .Q0M PRN; Protocol PRN Reason: Hypoglycemia Protocol Dextrose (Dextrose 5% In Water 1000 Ml) 1,000 mls @ 100 mls/hr IV .Q10H PATTI Last Admin: 04/28/18 08:00 Dose: 100 mls/hr Insulin Human Lispro (Humalog) 0 units SC Q4H PATTI Last Admin: 04/28/18 04:10 Dose: Not Given Levalbuterol HCl (Xopenex) 1.25 mg IH [id number] PATTI Last Admin: 04/28/18 07:09 Dose: 1.25 mg Pantoprazole Sodium (Protonix Inj) 40 mg IVP DAILY [facility] - Labs Labs: 04/28/18 04:59 04/28/18 04:59 PT 10.5 SECONDS (9.4-12.5) 04/27/18 03:50 INR 0.92 04/27/18 03:50 APTT 27.5 Seconds (25.1-36.5) 04/27/18 03:50 - Constitutional Appears: Non-toxic, No Acute Distress, Chronically Ill - Head Exam Head Exam: ATRAUMATIC, NORMOCEPHALIC - Eye Exam Eye Exam: EOMI, PERRL. absent: Scleral icterus Pupil Exam: PERRL. absent: Miosis, Mydriatic - ENT Exam ENT Exam: Mucous Membranes Moist, Normal Oropharynx - Neck Exam Neck Exam: Full ROM, Normal Inspection - Respiratory Exam Respiratory Exam: Clear to Ausculation Bilateral. absent: Rales, Rhonchi, Wheezes - Cardiovascular Exam Cardiovascular Exam: RRR, +S1, +S2. absent: Gallop, Rubs - GI/Abdominal Exam GI & Abdominal Exam: Soft, Normal Bowel Sounds. absent: Distended, Firm, Guarding, Rigid, Tenderness, Organomegaly, Rebound - Extremities Exam Extremities Exam: Normal Inspection. absent: Pedal Edema - Neurological Exam Neurological Exam: Alert, Awake - Psychiatric Exam Psychiatric exam: Normal Affect, Normal Mood - Skin Skin Exam: Dry, Intact, Normal Color, Warm Assessment and Plan - Assessment and Plan (Free Text) Assessment: 57 year old female with PMH of HTN, uncontrolled T2DM complicated by retinopathy/gastroparesis, MDD, LAUREN, and TIA/CVA presenting with vomiting and epigastric pain. Active treatment of severe sepsis 2/2 RLL HCAP complicated by encephalopathy in setting of hypoxic respiratory insufficiency and metabolic derangement. GI consultation for vomiting with gastroparesis exacerbation. EGD 10/2017 showed H. pylori negative bile gastritis and fundic gland polyps. Plan: -possible aspiration- endorses vomiting followed by fainting at home -slow advancement to liquid diet if awake, alert, and able to protect airway -aspiration precautions -improve glycemic control -endocrinology managing -Reglan held overnight with QT prolongation -supportive care- Zofran PRN -on broad spectrum antibiotics -will follow clinical course <Dagoberto Zambrano - Last Filed: 04/28/18 09:46> Objective - Vital Signs/Intake and Output Vital Signs (last 24 hours): Temp Pulse Resp BP Pulse Ox 98.2 F 88 13 169/86 H 99 04/28/18 04:00 04/28/18 09:17 04/28/18 06:50 04/28/18 09:17 04/28/18 06:50 Intake and Output: 04/28/18 04/28/18 06:59 18:59 Intake Total 1450 Output Total 300 Balance 1150 - Medications Medications: Current Medications Amlodipine Besylate (Norvasc) 5 mg PO DAILY PATTI Last Admin: 04/28/18 09:17 Dose: 5 mg Dextrose (Dextrose 50% Inj) 0 ml IV STAT PRN; Protocol PRN Reason: Hypoglycemia Protocol Last Admin: 04/27/18 16:09 Dose: 50 ml Dicyclomine HCl (Bentyl) 10 mg PO BID PRN PRN Reason: abdominal pain Last Admin: 04/28/18 09:32 Dose: 10 mg Piperacillin Sod/Tazobactam Sod (Zosyn 3.375 In Ns 100ml) 100 mls @ 25 mls/hr IVPB Q8 PATTI; Protocol Stop: 05/04/18 14:01 Last Admin: 04/28/18 05:43 Dose: 25 mls/hr Doxycycline Hyclate 100 mg/ (Sodium Chloride) 100 mls @ 100 mls/hr IVPB Q12 PATTI; Protocol Last Admin: 04/28/18 09:12 Dose: 100 mls/hr Dextrose (Dextrose 5% In Water 1000 Ml) 1,000 mls @ 0 mls/hr IV .Q0M PRN; Protocol PRN Reason: Hypoglycemia Protocol Dextrose (Dextrose 5% In Water 1000 Ml) 1,000 mls @ 100 mls/hr IV .Q10H PATTI Last Admin: 04/28/18 08:00 Dose: 100 mls/hr Insulin Human Lispro (Humalog) 0 units SC Q4H PATTI Last Admin: 04/28/18 04:10 Dose: Not Given Levalbuterol HCl (Xopenex) 1.25 mg IH [id number] PATTI Last Admin: 04/28/18 07:09 Dose: 1.25 mg Pantoprazole Sodium (Protonix Inj) 40 mg IVP ACBD PATTI Sucralfate (Carafate Oral Susp) 1 gm PO 0600,1600 PATTI - Labs Labs: 04/28/18 04:59 04/28/18 04:59 PT 10.5 SECONDS (9.4-12.5) 04/27/18 03:50 INR 0.92 04/27/18 03:50 APTT 27.5 Seconds (25.1-36.5) 04/27/18 03:50 Attending/Attestation - Attestation I have fully participated in the care of the patient.: Yes I have reviewed all pertinent clinical information, including history, physical exam and plan: Yes Notes (Text): 04/28/18 09:44 HTN Depression DM - uncontrolled Sepsis, possible aspiration Gastroparesis - Advance diet slowly as tolerated, small frequent meals throughout the day - Strict aspiration precautions, head of bed elevation during feeding - Maintain glycemic control, follow up endocrinology recommendations - Continue with antibiotic therapy as per ID - Anti-emetic therapy PRN - No further planned GI intervention, will sign off case. Please reconsult as necessary, thank you.
--- NOTE | 2018-04-28 09:00 | PN ---
DATE: 04/28/2018 SUBJECTIVE: The patient is seen and examined at bedside. She is alert, awake and oriented, much less lethargic, normally following commands, but saying she is hungry and waiting for breakfast. OBJECTIVE: VITAL SIGNS: Blood pressure 187/87, heart rate 86, oxygen saturation 100% on room air, respiratory rate 15. ENT: Head and neck atraumatic. LUNGS: Clear to auscultation bilaterally. HEART: Regular rate and rhythm. S1, S2 normal. ABDOMEN: Soft, nontender, nondistended. The patient also reports no nausea, no vomiting overnight. NEUROLOGIC: The patient moves all extremities spontaneously. SKIN: Color moist. PSYCH: The patient is alert, awake and oriented x3. LABORATORY DATA: Sodium 140, potassium 3.7, chloride 108, carbon dioxide 30, BUN 32, creatinine 1.4 (renal ultrasound was ordered, Toradol was stopped). Glucose 66, AST 21, ALT 32, total bilirubin 0.1. Troponin 0.02. Procalcitonin 0.67 and WBC 7.7, hemoglobin 9, platelet count 242. Influenza negative. Urine for Legionella pneumophila negative. MEDICATIONS: Amlodipine 5 mg daily, D5 100 mL per hour, doxycycline, regular insulin sliding scale, one dose of Levemir 20 units subcu will be given now (last blood glucose 130, and patient is about to have her breakfast besides she is on D5W 100 mL/hour), Protonix 40 mg daily, Zosyn. ASSESSMENT AND PLAN: This is a 57-year-old lady who initially presented with diabetic ketoacidosis, severe hypovolemia and mixed acid-base disorder who was fluid resuscitated, started on insulin drip with resolution of anion gap acidosis. She also appears to be much more alert, awake and comfortable. Her blood glucose is much better controlled, in fact we have to adjust her Levemir dose to prevent hypoglycemia. Concern is that gastroparesis may be an obstacle to provide an safe/stable/adequate long-acting formulation of insulin (if patient cant reliably keep food down, recurrent hypoglycemia is possible); however, if patient tolerates her breakfast well,we will be more optimistic in this regard at least in short run. She has new onset acute kidney injury. She made 350 mL of urine overnight (12 hours-- which is more than 30 mL/hour). She received her Toradol at 11:00 p.m. last night which may be a contributing factor to her acute kidney injury. Also, the renal ultrasound was just done and it did not show any hydronephrosis bilaterally. We might repeat labs later in the afternoon to follow up on creatinine level. Her blood pressure is slightly elevated and she will be started on amlodipine 5 mg daily. Due to her acute kidney injury, I will hold off on angiotensin-converting enzyme inhibitors at present time. This patient hemodynamic profile and mental status substantially improved. She is okay to go to telemetry or medsurg. We will continue to target euvolemia, euglycemia, normothermia and oxygen saturation more than 90%. We will continue with DVT, GI prophylaxis. ccm time 40 min Delfin Esqueda MD [facility]
[2018-04-28] MEDS ORDERED: Alum-Mag Hydrox-Simethicone Susp (30 mL) PO ONE (09:13)
--- NOTE | 2018-04-28 10:02 | US ---
Date of service: 04/28/2018 PROCEDURE: Ultrasound of the Kidneys HISTORY: alex COMPARISON: None available. TECHNIQUE: Sonogram of the kidneys. FINDINGS: RIGHT KIDNEY: Measures: 12.2 x 5.6 x 5.6 cm. Normal in size and contour. Increased echogenicity seen throughout the cortex mildly, potentially reflecting intrinsic medical renal disease. No stone, solid mass lesion or hydronephrosis visualized. A small cyst is limited in characterization of the upper pole right kidney measure 1.5 x 1.5 x 1.4 cm. No color Doppler blood flow related. LEFT KIDNEY: Measures: 13.2 x 7.4 x 6.3 cm. Normal in size and contour. Increased echogenicity seen throughout the cortex mildly, potentially reflecting intrinsic medical renal disease. No stone, solid mass lesion or hydronephrosis visualized. A simple cyst identified at the upper midpole left kidney measuring 2.0 x 1.6 x 1.[address] finding. A smaller cyst is identified with solitary septation at the lower pole, difficult to identify on prior CT, measuring 1.5 x 1.2 x 1.6 cm. This cyst is avascular on color Doppler ultrasound. OTHER FINDINGS: None. IMPRESSION: Echogenic renal parenchyma is identified which may indicate intrinsic medical renal disease. No obstructive uropathy bilaterally. 2 small left and a small solitary right renal cyst are identified with the lower pole left renal cyst. Complex. A small upper pole right renal cyst is limited in characterization due to body habitus.
--- NOTE | 2018-04-28 10:23 | PN ---
DATE: 04/28/2018 SUBJECTIVE: The patient is in bed in no acute distress, nontoxic. She is comfortable. She is seen earlier today in 129, bed 2. PHYSICAL EXAMINATION: VITAL SIGNS: Temperature 98, T-max yesterday was 100.4, pulse 75, respiratory rate 14, blood pressure 109/63. HEENT: Examination of HEENT is unremarkable. NECK: Supple. LUNGS: Decreased breath sounds. HEART: Normal S1, S2. ABDOMEN: Soft, nontender. LABORATORY DATA: White count 7.7, hemoglobin 9, platelets 242. BUN 32, creatinine 1.4. Serology is negative. Influenza is negative. Microbiology is negative. Blood cultures are no growth. Chest x-ray, diminished right basilar infiltrates. ASSESSMENT AND PLAN: This is a 57-year-old female seen earlier today in 129, bed 2, awake and alert with a past past medical history of diabetes and transient ischemic attack and gastroparesis secondary to type 2 diabetes, chronic obstructive lung disease who is admitted again with abdominal pain, nausea, vomiting and with chronic obstructive lung disease, cataracts, diabetic and with hyperglycemic-hyperosmolar state and with initially a tachycardia yesterday, had fevers, did have shortness of breath initially and a right-sided infiltrate in a patient who has had recent hospitalization. With the patient's increase in creatinine of 1.4 with severe sepsis with healthcare-associated right lower lobe pneumonia with acute kidney injury and in the face of gastroparesis, chronic obstructive lung disease, transient ischemic attack, and diabetes. Currently on doxycycline IV, vancomycin IV and Zosyn. We will discontinue the vancomycin due to increase in creatinine of 1.4, acute renal failure from yesterday it was 0.9 and with a negative procalcitonin. We will check on the cultures and awaiting for the sputum cultures and naris and we will make further recommendation. The patient appears to be improving. We will follow with you. I doubt vancomycin to be the etiology of this are acute renal failure with essentially unremarkable urinalysis yesterday. There are no WBC casts, no epithelial casts and tubular necrosis. However, we will also order another urinalysis and a vancomycin random level this morning. We will follow closely with you. We will also order renal ultrasound. This patient did have a CT of the abdomen, however, it was without p.o. and without IV contrast. Large right lower lobe region of consolidation is seen representing a pneumonia on the CAT scan. We will order a renal ultrasound and urine for eosinophilia. Marc Sales MD
--- NOTE | 2018-04-28 10:46 | PN ---
DATE: 04/28/2018 SUBJECTIVE: The patient appears much more comfortable this morning. She is not short of breath at rest. She does not complain of abdominal pain. PHYSICAL EXAMINATION: VITAL SIGNS: Temperature 98.2, pulse on the monitor is 81, respiratory rate 16/18, blood pressure 109/63. Oxygen saturation on nasal cannula is 99%. HEENT: Normocephalic, atraumatic. NECK: No JVD. CARDIOVASCULAR: Positive S1, S2. No S3 gallop. LUNGS: Less crackles at the bases. Less rhonchi. No wheezing. 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 There is no edema in her legs. There is no cyanosis or clubbing. Calves are nontender to palpation. GI: Abdomen is soft. The abdomen is nondistended and nontender to palpation this morning. Bowel sounds are improved. SKIN: No acute rash. NEUROLOGIC: Exam limited at the present time. PERTINENT LABORATORY DATA: Chest x-ray was done this morning and reviewed. The right lower lobe infiltrate shows definite improvement - with decreased size and density of the infiltrate. CBC: White count 7.7K, hemoglobin 9.0, hematocrit 28.3, platelets of 242,000. IMPRESSION: 1. Right lower lobe pneumonia - rule out aspiration. 2. Chronic obstructive pulmonary disease. 3. Hypoxemia--improved. 4. Chronic gastroparesis. 5. Uncontrolled diabetes mellitus. PLAN: The patient appears much more comfortable this morning. She is not short of breath at rest. She does not complain of abdominal pain. She does state to feeling much, much better overall. I did discuss the case with the night nurse at length. The night nurse stated that the patient had a very good night. I did review the chest x-ray as above. The chest x-ray is much improved - with decreased size and denseness of the right lower lobe infiltrate. I would continue with the antibiotic coverage as per Infectious Disease. I did discuss the case with Dr. Sales this morning. There are no temperatures noted. There is no leukocytosis. On physical exam, there is certainly less bronchospasm noted. In addition, the alveolar-arterial gradient is significantly less. I will continue the current nebulizer treatments for now. Clinical status of the patient is significantly improved - compared to her initial presentation. She does remain guarded overall. I will discuss the above with the entire ICU team in the next few moments. I will discuss the above with Dr. Dent later this morning. Cesar Enriquez MD [facility]
--- NOTE | 2018-04-28 13:07 | PN ---
DATE: 04/28/2018 LOCATION: CCU 129, room 2. SUBJECTIVE: This is a 57-year-old female with recent uncontrolled type 2 insulin-requiring diabetes presenting here with sudden onset of shortness of breath and evaluated to have acute pneumonitis with hypoxemia and currently being followed closely in the ICU for hemodynamic monitoring. Her glucose levels are also fluctuating with very low normal glucose values early this morning with a glucose of 32 mg/dl. LABORATORY DATA: Her chemistry showed a BUN of 32, sodium 140, potassium 3.7, chloride 108, CO2 of 30, glucose 73 and creatinine 1.4. Her glucose levels have ranged from 66-137 mg/dl today as noted. ASSESSMENT: This is a 57-year-old female with uncontrolled and decompensated type 2 insulin-requiring diabetes presenting here with acute pneumonitis and hypoxemia with supervening upper abdominal pain and intractable vomiting episodes with underlying diabetic gastroparesis and is now being followed closely for metabolic management. Her oral intake has remained suboptimal at this time with variable oral intake as noted. She also has diabetic microvascular complications of retinopathy and polyneuropathy with macrovascular complications of coronary artery disease with peripheral arterial disease and vasculopathy. She also had previous transient ischemic attack with no residual neurologic deficits noted. PLAN OF MANAGEMENT: She was apparently given a high-dose basal insulin as a stat dose of 40 units of Levemir yesterday and today as noted. We will continue only the low-dose correction scale using Humalog insulin as given at this time and hold off any more extra basal or bolus insulin regimen until her oral intake improves accordingly. We will obtain serial chemistries and supplement accordingly as needed. We will follow. Tita Coe MD
--- NOTE | 2018-04-28 13:50 | PN ---
DATE: 04/28/2018 LOCATION: She is in the intensive care unit. SUBJECTIVE: She is having multiple issues, gastroparesis, intractable nausea and vomiting, bilateral pneumonia. She is being seen by Pulmonary, GI, antisqueak chalker, Endocrinology for elevated blood sugar and low blood sugar. She is currently on Bentyl, Carafate, dextrose, doxycycline IV, amlodipine, Protonix, Xopenex, and Zosyn IV. PHYSICAL EXAMINATION: GENERAL: She is alert, trying to eat breakfast, very anxious, in pain. She is getting Xanax and tramadol. VITAL SIGNS: Temperature 98.2, 88 pulse, 169/86 blood pressure, 13 respiratory rate, 99% O2 sat on 3 liters. HEENT: Head is atraumatic, normocephalic. HEART: Regular rate. LUNGS: Decreased breath sounds bilaterally. Some congestion. ABDOMEN: Soft. Positive bowel sounds, little bit discomfort everywhere, but no guarding or rebound. EXTREMITIES: No edema. LABORATORY DATA: She has a 7.7 white count coming down, 9 hemoglobin, 28.3 hematocrit with 242 platelets. Her lactate is down to 3.7, still high. Sodium 140, potassium 3.7, BUN 32, creatinine 1.4. Last blood sugar was 137, calcium 7.8, phosphorous 4.4, magnesium 1.7, total bili is 0.1, AST is 21, ALT is 32, alk phos is 69. Troponin I 0.02. Total protein is 4.5, albumin is 2.1, globulin is 2.4, triglycerides , cholesterol is 157, TSH is 0.67. Urine was clean. ASSESSMENT AND PLAN: She is having a rough go now in the intensive care unit and seen by multiple doctors, intravenous antibiotics, watching her blood sugars. Hopefully, she will continue to improve. We will check her labs tomorrow, may be get her out of bed to chair and see if she can handle that. Josafat Dent DO [facility]
--- NOTE | 2018-04-28 14:55 | CARD ---
APPROVED REPORT Date of service: 04/28/2018 EKG Measurement Heart [id number] <Conclusion> Sinus bradycardia with premature atrial complexes in a pattern of bigeminy Nonspecific T wave abnormality Prolonged QT Abnormal ECG
[2018-04-28] MEDS: Sucralfate 1 gm/10 ml Oral Susp UD PO SCH (16:44)
--- NOTE | 2018-04-28 18:38 | CON ---
DATE: 04/28/2018 CARDIOLOGY FOLLOWUP SUBJECTIVE: The patient presents with epigastric discomfort. PAST MEDICAL HISTORY: The patient's past medical history is notable for diabetes mellitus with complications of chronic gastroparesis associated with nausea, abdominal pain and vomiting. In addition, she suffers from hypertension. Her EKG shows nonspecific ST-T changes. The computer reads as a prolonged QT; however, the QT cannot be accurately bed. She denies angina. Currently, the patient is complaining of her epigastric gastroparesis pain. REVIEW OF SYSTEMS: Fourteen-point review of systems is reviewed, could not be obtained. PHYSICAL EXAMINATION: VITAL SIGNS: Stable with a heart rate in the 80s. NECK: Negative JVD. LUNGS: Without rales. HEART: Reveals S1, S2. EXTREMITIES: Without edema. EKG shows normal sinus rhythm with PVCs and diffuse ST-T depressions. A QT interval cannot be accurately read. LABORATORY DATA: Hemoglobin is 9. Chemistries, BUN and creatinine are 32 and 1.4 with a troponin of 0.02. The hemoglobin A1c is 12.9. IMPRESSION: 1. Gastroparesis. 2. Epigastric pain secondary to gastroparesis. 3. No evidence for acute coronary syndrome. 4. Diffuse ST-T changes on EKG. 5. Diabetes mellitus. 6. History of depression. 7. History of hypertension. PLAN: Given these findings, no further cardiac workup is necessary. The patient can be transferred out of the unit today. Carter Farmer MD
[2018-04-29] MEDS ORDERED: Pantoprazole 40 mg EC Tab PO ONE (01:50)
[2018-04-29] MEDS: Insulin Lispro 1 UNITS/0.01 ML SC SCH ×3 (04:00→08:11)
[2018-04-29] MEDS: Piperacillin/Tazobact 3.375 gm 100 ML IVPB SCH ×3 (05:32→22:36)
[2018-04-29] MEDS: Sucralfate 1 gm/10 ml Oral Susp UD PO SCH ×2 (05:33→16:21)
[2018-04-29 06:25] LABS: BASO # 0.02 K/mm3 (0.0-2.0); BASO % 0.2 % (0.0-3.0); EOS # 0.1 (0.0-0.7); EOS % 1.5 % (1.5-5.0); GRAN # 6.88 (1.4-6.5); GRAN % 79.1 % (50.0-68.0); HEMOGLOBIN 9.6 g/dL (12.0-16.0); LYMPH # 1.2 (1.2-3.4); LYMPH % 13.3 % (22.0-35.0); MEAN CORPUSCULAR HEMOGLOBIN 25.2 pg (25.0-35.0); MEAN CORPUSCULAR HGB CONC 32.3 g/dl (31.0-37.0); MEAN PLATELET VOLUME 9.2 fl (7.0-11.0); MONO # 0.5 (0.1-0.6); MONO % 5.9 % (1.0-6.0); RBC 3.81 10^6/uL (3.5-6.1); RED CELL DISTRIBUTION WIDTH 14.6 % (11.5-14.5); WHITE BLOOD COUNT 8.7 10^3/uL (4.5-11.0)
[2018-04-29] MEDS: Levalbuterol 1.25 MG/3 ML Inhal Soln UD IH SCH ×3 (07:07→21:12)
[2018-04-29 07:13] LABS: ALB/GLOB RATIO 0.9 (1.1-1.8); ALBUMIN 2.6 g/dL (3.0-4.8); CALCIUM 8.1 mg/dL (8.4-10.5)
--- NOTE | 2018-04-29 07:31 | PN ---
DATE: 04/29/2019 PULMONARY NOTE SUBJECTIVE: The patient appears uncomfortable this morning. She is not short of breath at rest. She does complain of abdominal pain. OBJECTIVE: VITAL SIGNS: Temperature is 97.0, pulse 101, respiratory rate 18, blood pressure 167/82. Oxygen saturation on nasal cannula is 98%. HEENT: Normocephalic, atraumatic. NECK: No JVD. CARDIOVASCULAR: Positive S1, S2. No S3 gallop. LUNGS: Crackles at both bases. Less rhonchi. No wheezing. 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 There is no edema in her legs. There is no cyanosis or clubbing. Calves are nontender to palpation. GASTROINTESTINAL: Abdomen is soft. The abdomen is nondistended, but mildly tender to palpation. Bowel sounds are adequate. SKIN: No acute rash. NEUROLOGIC: Limited at the present time. IMPRESSION: 1. Right lower lobe pneumonia - rule out aspiration. 2. Chronic obstructive pulmonary disease. 3. Hypoxemia - resolving. 4. Chronic gastroparesis. 5. Uncontrolled diabetes mellitus. PLAN: The patient is uncomfortable this morning. She is not short of breath at rest. However, she does complain of abdominal pain. I did discuss the case with the night nurse at length. The night nurse stated that the patient had a good night, until recently (when she started to experience more abdominal pain). I did review the last chest x-ray done - in yesterday's assessment. The chest x-ray done yesterday morning was significantly improved - with a decrease in the size and denseness of the right lower lobe infiltrate. On physical exam, there is less bronchospasm noted. In addition, there is now no significant alveolar-arterial gradient. I will continue the current nebulizer treatments and aspiration precautions for now. I would continue with the antibiotic coverage as per Infectious Disease. There are no temperatures noted. There is no leukocytosis. Inputs by Cardiology, Endocrine, and Gastroenterology are also noted. Repeat a.m. labs are pending. Clinical status of the patient is definitely improved - compared to her initial presentation. She does remain guarded overall. I will discuss the above with the entire ICU team in the next few moments. I will discuss the above with Dr. Dent later this morning. Cesar Enriquez MD [facility] # [id number] [facility]
--- NOTE | 2018-04-29 09:06 | PN ---
DATE: 04/29/2018 SUBJECTIVE: I came to see her. She is in the Intensive Care Unit. She is sitting out of bed to chair she is crying in abdominal pain. She is going to get some pain medication. MEDICATIONS: She is on Ativan, Bentyl, Carafate, IV fluids, doxycycline, Humalog, Norvasc, Protonix, Xopenex, and Zosyn IV. OBJECTIVE: She has a 97 temperature, 106 pulse, 167/82 blood pressure, 18 respiratory rate, 96% O2 sat on room air. HEENT: Head is atraumatic, normocephalic. She is looking at me. She is crying. She does not want to eat this morning. She is holding her belly. She has abdominal pain, although she is sitting out of bed to chair. She is very uncomfortable. HEART: Regular rate, a little tachy at this time, on the monitor it is 120. LUNGS: Decreased breath sounds were clear to auscultation. She is here for bilateral pneumonia, which is definitely improved. ABDOMEN: Soft, nontender. Positive bowel sounds. EXTREMITIES: No edema. LABORATORY DATA: She has a 8.7 white count, 9.6 hemoglobin, 29.7 hematocrit with 291 platelets. Lactate still 3.7. 137 sodium; potassium 3.4, I am going to replace her potassium. BUN 22, creatinine 1.2 which is coming down. Last sugar was 185. We will decrease the Accu-Chek from every 4 hours to before meals and at bedtime with coverage. Calcium is 8.1, total bili is 0.2, AST is 32, ALT is 36, alk phos 85, total protein is 5.4. She is being seen by Pulmonary, Cardio, Endocrinology, GI, Box Sorter. Insulin coverage decreased before meals and at bedtime. She is going to get her pain medications, I believe the Toradol fell off. She was on the fentanyl patch, I am not sure why they stop that either. I will continue with aggressive treatment and care was here for gastroparesis, bilateral pneumonia. Josafat Dent DO [facility] # [id number] MTDD
[2018-04-29] MEDS: Insulin Lispro (humaLOG) MEDIUM Coverage SC SCH ×2 (11:48→16:17)
--- NOTE | 2018-04-29 11:48 | PN ---
DATE: 04/29/2018 CARDIOLOGY FOLLOWUP SUBJECTIVE: The patient has chronic epigastric pain. OBJECTIVE: VITAL SIGNS: Blood pressure 173/89, heart rate is 100. NECK: Negative JVD. LUNGS: Without rales. HEART: S1, S2. EXTREMITIES: Without edema. IMPRESSION: 1. Chronic abdominal pain secondary to gastroparesis. 2. Hypertension. 3. Diabetes mellitus. PLAN: Given these findings, I agree with adding amlodipine to her regimen for better blood pressure control. Carter Farmer MD
--- NOTE | 2018-04-29 14:00 | CP.PCM.PN ---
<Abdullahi Giang - Last Filed: 04/29/18 13:56> Subjective - Date & Time of Evaluation Date of Evaluation: 04/29/18 Time of Evaluation: 10:00 - Subjective Subjective: Progress note for ID Service - Dr. Bryan Pt was seen and examined at bedside. She is still mildly nauseous, but has not vomited since yesterday. Pt denied fever, chills, sob, chest pains, diarrhea, or urinary symptoms. Objective - Vital Signs/Intake and Output Vital Signs (last 24 hours): Temp Pulse Resp BP Pulse Ox 97 F L 93 H 26 H 157/90 H 88 L 04/29/18 04:00 04/29/18 13:50 04/29/18 13:50 04/29/18 13:10 04/28/18 22:50 Intake and Output: 04/29/18 04/29/18 06:59 18:59 Intake Total 1400 Output Total 1000 Balance 400 - Medications Medications: Current Medications Amlodipine Besylate (Norvasc) 5 mg PO DAILY [facility] Last Admin: 04/29/18 10:10 Dose: 5 mg Dextrose (Dextrose 50% Inj) 0 ml IV STAT PRN; Protocol PRN Reason: Hypoglycemia Protocol Last Admin: 04/27/18 16:09 Dose: 50 ml Dicyclomine HCl (Bentyl) 10 mg PO BID PRN PRN Reason: abdominal pain Last Admin: 04/28/18 22:29 Dose: 10 mg Docusate Sodium (Colace) 100 mg PO DAILY PATTI Last Admin: 04/29/18 10:10 Dose: 100 mg Fentanyl (Duragesic) 1 patch TD Q72H PATTI Last Admin: 04/29/18 08:46 Dose: Not Given Piperacillin Sod/Tazobactam Sod (Zosyn 3.375 In Ns 100ml) 100 mls @ 25 mls/hr IVPB Q8 PATTI; Protocol Stop: 05/04/18 14:01 Last Admin: 04/29/18 05:32 Dose: 25 mls/hr Doxycycline Hyclate 100 mg/ (Sodium Chloride) 100 mls @ 100 mls/hr IVPB Q12 PATTI; Protocol Last Admin: 04/29/18 10:04 Dose: 100 mls/hr Dextrose (Dextrose 5% In Water 1000 Ml) 1,000 mls @ 0 mls/hr IV .Q0M PRN; Protocol PRN Reason: Hypoglycemia Protocol Dextrose (Dextrose 5% In Water 1000 Ml) 1,000 mls @ 100 mls/hr IV .Q10H [facility] Last Admin: 04/29/18 11:36 Dose: 100 mls/hr Potassium Chloride (Potassium Chloride 10 Meq/100 Ml) 10 meq in 100 mls @ 50 mls/hr IVPB ONCE ONE Stop: 04/29/18 14:18 Last Admin: 04/29/18 13:09 Dose: 50 mls/hr Insulin Human Lispro (Humalog Med) 0 units SC ACHS [facility]; Protocol Last Admin: 04/29/18 11:48 Dose: 3 units Ketorolac Tromethamine (Toradol) 30 mg IVP Q6H PRN PRN Reason: Pain, moderate (4-7) Last Admin: 04/29/18 10:09 Dose: 30 mg Levalbuterol HCl (Xopenex) 1.25 mg IH [id number] [facility] Last Admin: 04/29/18 13:26 Dose: 1.25 mg Lorazepam (Ativan) 0.5 mg PO BID [facility]; Protocol Last Admin: 04/29/18 11:22 Dose: 0.5 mg Pantoprazole Sodium (Protonix Inj) 40 mg IVP ACBD [facility] Last Admin: 04/29/18 08:15 Dose: 40 mg Sucralfate (Carafate Oral Susp) 1 gm PO 0600,1600 [facility] Last Admin: 04/29/18 05:33 Dose: 1 gm - Labs Labs: 04/29/18 05:30 04/29/18 05:30 PT 10.5 SECONDS (9.4-12.5) 04/27/18 03:50 INR 0.92 04/27/18 03:50 APTT 27.5 Seconds (25.1-36.5) 04/27/18 03:50 - Constitutional Appears: No Acute Distress - Head Exam Head Exam: ATRAUMATIC, NORMAL INSPECTION, NORMOCEPHALIC - Eye Exam Eye Exam: EOMI, Normal appearance, PERRL Pupil Exam: NORMAL ACCOMODATION, PERRL - ENT Exam ENT Exam: Mucous Membranes Dry - Respiratory Exam Respiratory Exam: Clear to Ausculation Bilateral, NORMAL BREATHING PATTERN - Cardiovascular Exam Cardiovascular Exam: REGULAR RHYTHM, +S1, +S2. absent: Murmur - GI/Abdominal Exam GI & Abdominal Exam: Soft, Tenderness (mild diffuse), Hypoactive Bowel Sounds - Neurological Exam Neurological Exam: Alert, Awake, CN II-XII Intact, Normal Gait, Oriented x3 - Psychiatric Exam Psychiatric exam: Normal Affect, Normal Mood - Skin Skin Exam: Dry, Intact, Normal Color, Warm Assessment and Plan - Assessment and Plan (Free Text) Assessment: 57 female with PMHx of HTN, DM2, COPD, TIA, gastroparesis presents with epigastric abdominal pain associated with nausea/vomiting secondary to hyperglycemic hyperosmolar state in the setting of likely aspiration pneumonia s/p multiple (5-6) episodes of emesis. 1. Hyperglycemic hyperosmolar state 2. right-sided PNA likely secondary to aspiration 3. Hx of gastroparesis 4. Hx of insulin dependent DM type 2 , noncompliant with medications 5. COPD 6. TIA -Iv abx zosyn and doxycyline for broad-spectrum coverage and vanco d/c 2/2 alex, 4-7 days -Cx negative, pct unreliable in setting of alex will redraw tomorrow - electrolytes stabilizing - renal us reviewed -HIV and RPR previously negative -CXR was reviewed and notable for Right-sided infiltrate, likely aspiration -CT abd/pelvis reviewed - Qtc prolongation, avoid meds that may exacerbate -Further recommendations per clinical course and results of testing -EGD 10/2017 showed H. pylori negative bile gastritis and fundic gland polyps. <Ollie Bryan - Last Filed: 04/29/18 18:08> Objective - Vital Signs/Intake and Output Vital Signs (last 24 hours): Temp Pulse Resp BP Pulse Ox 97.1 F L 84 19 138/79 90 L 04/29/18 17:59 04/29/18 17:59 04/29/18 17:59 04/29/18 17:59 04/29/18 17:01 Intake and Output: 04/29/18 04/29/18 06:59 18:59 Intake Total 1400 1500 Output Total 1000 500 Balance 400 1000 - Medications Medications: Current Medications Amlodipine Besylate (Norvasc) 5 mg PO DAILY PATTI Last Admin: 04/29/18 10:10 Dose: 5 mg Dextrose (Dextrose 50% Inj) 0 ml IV STAT PRN; Protocol PRN Reason: Hypoglycemia Protocol Last Admin: 04/27/18 16:09 Dose: 50 ml Dicyclomine HCl (Bentyl) 10 mg PO BID PRN PRN Reason: abdominal pain Last Admin: 04/28/18 22:29 Dose: 10 mg Docusate Sodium (Colace) 100 mg PO DAILY [facility] Last Admin: 04/29/18 10:10 Dose: 100 mg Fentanyl (Duragesic) 1 patch TD Q72H PATTI Last Admin: 04/29/18 08:46 Dose: Not Given Fluoxetine HCl (Prozac) 20 mg PO DAILY [facility] Piperacillin Sod/Tazobactam Sod (Zosyn 3.375 In Ns 100ml) 100 mls @ 25 mls/hr IVPB Q8 [facility]; Protocol Stop: 05/04/18 14:01 Last Admin: 04/29/18 14:10 Dose: 25 mls/hr Doxycycline Hyclate 100 mg/ (Sodium Chloride) 100 mls @ 100 mls/hr IVPB Q12 [facility]; Protocol Last Admin: 04/29/18 10:04 Dose: 100 mls/hr Dextrose (Dextrose 5% In Water 1000 Ml) 1,000 mls @ 0 mls/hr IV .Q0M PRN; Protocol PRN Reason: Hypoglycemia Protocol Dextrose (Dextrose 5% In Water 1000 Ml) 1,000 mls @ 100 mls/hr IV .Q10H [facility] Last Admin: 04/29/18 11:36 Dose: 100 mls/hr Insulin Human Lispro (Humalog Med) 0 units SC ACHS [facility]; Protocol Last Admin: 04/29/18 16:17 Dose: Not Given Ketorolac Tromethamine (Toradol) 30 mg IVP Q6H PRN PRN Reason: Pain, moderate (4-7) Last Admin: 04/29/18 16:25 Dose: 30 mg Levalbuterol HCl (Xopenex) 1.25 mg IH [id number] [facility] Last Admin: 04/29/18 13:26 Dose: 1.25 mg Lorazepam (Ativan) 0.5 mg PO BID [facility]; Protocol Last Admin: 04/29/18 17:58 Dose: 0.5 mg Losartan Potassium (Cozaar) 100 mg PO DAILY [facility] Last Admin: 04/29/18 14:13 Dose: 100 mg Pantoprazole Sodium (Protonix Inj) 40 mg IVP ACBD [facility] Last Admin: 04/29/18 16:21 Dose: 40 mg Sucralfate (Carafate Oral Susp) 1 gm PO 0600,1600 PATTI Last Admin: 04/29/18 16:21 Dose: 1 gm - Labs Labs: 04/29/18 05:30 04/29/18 05:30 PT 10.5 SECONDS (9.4-12.5) 04/27/18 03:50 INR 0.92 04/27/18 03:50 APTT 27.5 Seconds (25.1-36.5) 04/27/18 03:50 Assessment and Plan - Assessment and Plan (Free Text) Assessment: Infectious diseases Attending Physician Attestation Patient seen and examined, discussed with medical aide. I have reviewed the patient's history of present illness, past medical, social, personal and family histories, pertinent physical exam findings, course so far in this hospital admission, pertinent laboratory and imaging results. I agree with the above findings, assessment and plan. In addition, will continue Doxycycline and Zosyn for patient with probable sepsis from right lower lobe HCAP. Should complete 4-7 days of antibiotics.
--- NOTE | 2018-04-29 16:06 | PN ---
DATE: 04/29/2018 ENDOCRINOLOGY FOLLOWUP NOTE LOCATION: In CCU 129, room 2. SUBJECTIVE: This is a 57-year-old female presenting here with progressive shortness of breath and evaluated to have acute pneumonitis and hypoxemia and also had supervening upper abdominal pain related to diabetic gastroparesis, and is now being followed closely for metabolic management. Her oral intake was still quite variable at this time. The glucose levels have ranged from 185 to 215 mg/dL today as noted. It was 123 to 140 early this morning and it was 75 at bedtime last night as noted. LABORATORY DATA: Her chemistry showed a BUN of 22, sodium 137, potassium 3.4, chloride 106, CO2 of 28, glucose 162, and creatinine 1.2. ASSESSMENT AND PLAN: So at this time, we will continue only the low-dose correction scale using Humalog insulin as ordered to obviate hypoglycemia. If her oral intake remains improved and optimal, then we will switch her back to a basal and bolus insulin drug combination as indicated. We will follow. Tita Coe MD
--- NOTE | 2018-04-29 18:45 | CON ---
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 The patient has one psychiatric admission, which took place here into [facility] in 2017 for depression. The patient has multiple medical issues including poorly controlled diabetes, TIA, COPD, hypertension. The patient was admitted to ICU after being found unresponsive in her home. The patient was seen and examined. The patient presented to be alert, tearful. The patient reported that she was doing relatively fine. The patient reported that she was on Prozac prior to coming to the hospital. The patient reported that her family is supportive. The patient complained of abdominal pain. The patient has history of gastroparesis. The patient reported that she does not have any thoughts of harming herself or others. The patient denied intent or plan to kill herself. The patient reported that her anxiety is at times out of control that is why the patient is taking Ativan as well as Prozac. The patient reported that she never followed up with outpatient psychiatrist and her primary care physician is giving her prescription for her medications. The patient denied hearing voices, denied seeing things, denied paranoid ideations. Discussed with nurses in ICU. The patient is tearful, but never verbalized any thoughts of harming herself or others. PHYSICAL EXAMINATION: VITAL SIGNS: Reviewed. Temperature 98.8, pulse is 84, blood pressure 138/78, respiration 26, and oxygen saturation is 90. MEDICATIONS: Reviewed. The patient is on Norvasc, dextrose, Bentyl, Colace, Fentanyl. Of note, the patient was found to have three fentanyl patches on her, and it has to be removed. Prozac will be resumed. The patient is on Humalog, Toradol, Ativan 0.5 mg twice a day as needed. The patient is also on Cozaar, Protonix, Zosyn, as well as sucralfate. LABORATORY DATA: Labs reviewed. Hemoglobin and hematocrit are 29.7 and 78.0. Coagulation reviewed. Blood gas reviewed. Chemistry reviewed. Urinalysis reviewed. Toxicology reviewed. Benzodiazepines positive and serology reviewed. MENTAL STATUS EXAMINATION: The patient presented to be alert and oriented, pleasant, not very forthcoming with history. Mood described as depressed. The patient has chronic depression. Affect was tearful and mood congruent. Thought process seems to be goal directed. Thought content, the patient denied thoughts of harming herself or others. Denied intent or plan. Insight and judgment seemed to be fair. Impulses are well controlled. IMPRESSION: Most likely, the patient suffered from mood disorder due to general medical condition. The patient is to rule out major depressive disorder, rule out anxiety disorder due to general medical condition. PLAN: Continue current management. Continue current medication. 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 Prozac was resumed. We will follow up and advise accordingly. Physical Therapy evaluation. Family supports recommended. Should you have any questions, give me a call back. Dr. Recio will follow up on this patient over the weekend. Thank you very much for letting me participate in care of your patient. Lidia Napier MD MTDSumi
[2018-04-30] MEDS: Levalbuterol 1.25 MG/3 ML Inhal Soln UD IH SCH ×4 (01:55→20:00)
[2018-04-30] MEDS: Insulin Lispro (humaLOG) MEDIUM Coverage SC SCH ×2 (02:43→08:19)
[2018-04-30] MEDS: Sucralfate 1 gm/10 ml Oral Susp UD PO SCH ×2 (06:06→17:11)
[2018-04-30] MEDS: Piperacillin/Tazobact 3.375 gm 100 ML IVPB SCH ×3 (06:10→21:38)
[2018-04-30 07:14] LABS: ALBUMIN 2.4 g/dL (3.0-4.8); CALCIUM 7.6 mg/dL (8.4-10.5)
[2018-04-30 07:46] LABS: WHITE BLOOD COUNT 8.3 10^3/uL (4.5-11.0)
[2018-04-30 07:47] LABS: BASO # 0.08 K/mm3 (0.0-2.0); EOS # 0.3 (0.0-0.7); EOS % 4.1 % (1.5-5.0); GRAN # 6.02 (1.4-6.5); GRAN % 72.8 % (50.0-68.0); LYMPH # 1.3 (1.2-3.4); LYMPH % 16.2 % (22.0-35.0); MEAN CELL VOLUME 80.5 fl (80.0-105.0); MEAN CORPUSCULAR HEMOGLOBIN 25.4 pg (25.0-35.0); MEAN CORPUSCULAR HGB CONC 31.6 g/dl (31.0-37.0); MEAN PLATELET VOLUME 10.2 fl (7.0-11.0); MONO # 0.5 (0.1-0.6); MONO % 5.9 % (1.0-6.0); RBC 3.54 10^6/uL (3.5-6.1); RED CELL DISTRIBUTION WIDTH 14.4 % (11.5-14.5)
--- NOTE | 2018-04-30 07:52 | PN ---
DATE: 04/30/2018 SUBJECTIVE: The patient is in bed, in no acute distress, nontoxic. No fevers. The patient is seen in room 264, bed 1. PHYSICAL EXAMINATION: VITAL SIGNS: Temperature is 98, blood pressure is 130/60, respiratory rate of 18. Examination of HEENT is unremarkable. NECK: Supple. LUNGS: Have decreased breath sounds. HEART: Normal S1 and S2. ABDOMEN: Soft and nontender. LABORATORY EXAMINATION: Reveals the white count of 8.7, hemoglobin of 9, platelets of 291. Chemistries reveal a BUN of 22, creatinine of 1.2. Urinalysis is noted. Toxicology is reviewed. Serology is negative. Microbiology reveals the patient is noted. ASSESSMENT AND PLAN: This is a 57-year-old female with hypertension, diabetes, chronic obstructive lung disease, transient ischemic attack, gastroparesis with epigastric abdominal pain associated with nausea and vomiting secondary to hyperglycemic hyperosmolar state in the setting likely of an aspiration pneumonia, right-sided pneumonia likely secondary to aspiration. History of gastroparesis, on doxycycline and Zosyn. Cultures are negative. MRSA screen is negative. Blood cultures are negative. Legionella is negative. Influenza is negative. Strep pneumonia is negative with a creatinine now that is improved to 1.2. Procalcitonin is undetectable. The patient is comfortable, on doxy and Zosyn day number 4, would complete 4-7 days of antibiotics. We will discontinue the antibiotics within the next 24 hours. We will discuss with Dr. Enriquez. Marc Sales MD
[2018-04-30] MEDS: Insulin Lispro 1 UNITS/0.01 ML SC SCH ×2 (11:41→17:15)
--- NOTE | 2018-04-30 12:22 | PN ---
DATE: 04/30/2018 PULMONARY PROGRESS NOTE SUBJECTIVE: The patient is in bed, comfortable. She states that she has no shortness of breath. There are no complaints. OBJECTIVE: VITAL SIGNS: Remain stable. She is afebrile, pulse 80, respiratory rate 18, blood pressure 160/80, O2 sat on nasal cannula 98%. HEENT: Normocephalic, atraumatic. NECK: Supple. No JVD. No bruit. No mass. CARDIOVASCULAR: Regular rhythm. S1, S2 without murmur, gallop or rub. LUNGS: Essentially clear to percussion and auscultation. Minimal rales at both bases, unchanged. ABDOMEN: Soft. Bowel sounds normoactive without mass, guarding, rebound or organomegaly. EXTREMITIES: Reveal no clubbing or cyanosis. 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 There is no Sybil sign noted. SKIN: No rash or excoriation. NEUROLOGIC: No focal findings noted. CLINICAL IMPRESSION: 1. Status post right lower lobe pneumonia. Apparently, improving on physical exam. X-ray required to further evaluate. 2. Chronic obstructive pulmonary disease, stable at this time. 3. Hypoxemia - in resolution. PLAN: Continue vigorous antibiotic therapy. Encourage cough and expectoration. Continue to move as much as possible. Repeat x-ray to make sure that there is resolution of the above discussed findings. Continue bronchodilators as discussed. Armando Freeman MD
--- NOTE | 2018-04-30 13:17 | RAD ---
Date of service: 04/30/2018 HISTORY: pneumonia COMPARISON: Comparison chest dated 04/28/2018. TECHNIQUE: Chest PA and lateral FINDINGS: LUNGS: Patchy bilateral lower lobe atelectasis and/or infiltrates with a little and area of linear atelectasis left lung were lung field.. Note these changes are exacerbated by poor inspiration with low lung volumes PLEURA: No significant pleural effusion identified. No pneumothorax apparent. CARDIOVASCULAR: No aortic atherosclerotic calcification present. Normal cardiac size. No pulmonary vascular congestion. OSSEOUS STRUCTURES: No significant abnormalities. VISUALIZED UPPER ABDOMEN: Normal. OTHER FINDINGS: None. IMPRESSION: Patchy bilateral lower lobe atelectasis and/or infiltrates with a little and area of linear atelectasis left lung were lung field.. Note these changes are exacerbated by poor inspiration with low lung volumes the the the
--- NOTE | 2018-04-30 13:26 | PN ---
DATE: 04/30/2018 SUBJECTIVE: I saw Ting resting comfortably in bed. She is very medicated at this time and she is resting comfortably. She was in pain earlier. MEDICATIONS: She is on Ativan, Bentyl, Carafate, Colace, Cozaar, dextrose, doxycycline, fentanyl patch, insulin, Levemir, Norvasc, Protonix, Prozac, Toradol, Xopenex and Zosyn. PHYSICAL EXAMINATION: GENERAL: She is talking a little bit this morning, quite tired, maybe the medications are making her feel tired. VITAL SIGNS: She has a 98 temperature; 100 pulse; 159/100 blood pressure, make sure she has a blood pressure medication; 20 respiratory rate; 92 percent O2 sat on room air. HEENT: Head: Atraumatic, normocephalic. HEART: Regular rate. LUNGS: Decreased breath sounds. Poor inspiration. We are pneumonia but it is cleared than when she came in. ABDOMEN: Soft. Decreased bowel sounds. No guarding, no rebound, a little bit of discomfort. EXTREMITIES: No edema. Physical Therapy saw her and recommended subacute rehab, maybe go to [facility] or [facility] for her. LABORATORY DATA: She has 132 sodium; potassium is 3.4, I gave her potassium replacement; BUN 20; creatinine 1.2; GFR is 46, last blood sugar was 286, calcium is 7.6. Total bili is 0.2, AST is 22, ALT is 20, alk phos 77, total protein is 4.8. White count is 8.3, hemoglobin 9, hematocrit 28.5, platelets of 264. She is being seen by Infectious Disease, Pulmonary, Psychiatry, Cardiology and Endocrinology. It is very possible that I would like to get her to subacute rehab. Continue antibiotics for treatment there if need be and also physical therapy before she goes home. Josafat Dent DO MTDD
[2018-04-30] MEDS: Insulin Lispro (humaLOG) LOW Coverage SC SCH ×3 (13:58→23:46)
--- NOTE | 2018-04-30 14:46 | PN ---
DATE: 04/30/2018 ENDO FOLLOWUP NOTE LOCATION: Room 264. SUBJECTIVE: This is a 57-year-old female with recent uncontrolled type 2 insulin-requiring diabetes presenting here with intractable vomiting and diffuse upper abdominal pain and is now being followed closely for metabolic management. Her oral intake is quite variable and suboptimal at this time, especially that she is actually extremely hypersomnolent from the narcotic analgesics as given thereof. Her glucose levels overnight were fluctuating and ranging from 143 to 254 and 290 mg/dL. Her latest chemistry showed a BUN of 20, sodium 133, potassium 3.4, chloride 102, CO2 of 27, glucose 296 and creatinine 1.2. So at this time, we will resume her basal and bolus insulin regimen to improve her metabolic control thereof. We will initiate low dose of Humalog given as 4 units subcutaneously three times a day before meals to start today. We will also add basal insulin with Levemir given as 6 units subcutaneously at bedtime daily to start tonight. We will modify the coverage scale to obviate hypoglycemia and detailed orders have been given. We will follow and advise accordingly as needed. Tita Coe MD
--- NOTE | 2018-04-30 19:18 | CON ---
DATE OF CONSULTATION: 04/30/2018 HISTORY OF PRESENT ILLNESS: The patient is a 57-year-old female with history of depression and anxiety. Psychiatry following up for her depression. I met with patient at bedside. She is coherent, goal directed, fairly logical with responses. She denies any new psychiatric concerns, although she remains depressed. Tolerating her medications. She again denies feeling profoundly hopeless, wishes or suicidal thoughts. She wants to live. She wants to improve. Her affect is constricted and congruent to reported mood. There have been no behavioral issues in the unit. She has been alert and oriented generally throughout the course. Insight and judgement are considered to be fair. Vital signs and labs were reviewed. RELEVANT PSYCHIATRIC MEDICATIONS: Include Prozac 20 mg daily and Ativan 0.5 b.i.d. IMPRESSION: 1. Depression, not otherwise specified, rule out major depressive disorder. 2. Moderate anxiety, not otherwise specified. 3. Likely adjustment disorder with depression and anxiety contributing to presentation, rule out depression secondary to general medical condition. RECOMMENDATIONS: We will continue with current medications of Prozac and Ativan. No indication to change medications at this time. At this time, the patient is tolerating them well. The patient may benefit from a psychiatric admission if she is agreeable to sign in, however, does not appear this time to require it and is psychiatrically cleared if she should be medically cleared. Psychiatry will follow up with her every other day. Next follow up will be on 05/02/[address] Recio. I will be happy to follow up earlier if there are any acute changes to her presentation. Adiel Recio MD [facility]
[2018-04-30] MEDS: Insulin Detemir 100 units/ml Vial (Levemir) SC SCH (23:55)
[2018-05-01] MEDS: Levalbuterol 1.25 MG/3 ML Inhal Soln UD IH SCH ×4 (01:52→19:34)
[2018-05-01] MEDS: Sucralfate 1 gm/10 ml Oral Susp UD PO SCH ×2 (05:14→17:37)
[2018-05-01] MEDS: Piperacillin/Tazobact 3.375 gm 100 ML IVPB SCH (05:14)
[2018-05-01 07:46] LABS: ALBUMIN 2.5 g/dL (3.0-4.8)
[2018-05-01 08:01] LABS: BASO # 0.04 K/mm3 (0.0-2.0); BASO % 0.6 % (0.0-3.0); EOS # 0.4 (0.0-0.7); EOS % 5.6 % (1.5-5.0); GRAN # 4.77 (1.4-6.5); GRAN % 68.9 % (50.0-68.0); HEMOGLOBIN 9.6 g/dL (12.0-16.0); LYMPH # 1.3 (1.2-3.4); LYMPH % 19.4 % (22.0-35.0); MEAN CELL VOLUME 78.9 fl (80.0-105.0); MEAN CORPUSCULAR HEMOGLOBIN 25.1 pg (25.0-35.0); MEAN CORPUSCULAR HGB CONC 31.8 g/dl (31.0-37.0); MEAN PLATELET VOLUME 9.8 fl (7.0-11.0); MONO # 0.4 (0.1-0.6); MONO % 5.5 % (1.0-6.0); RBC 3.83 10^6/uL (3.5-6.1); RED CELL DISTRIBUTION WIDTH 14.1 % (11.5-14.5); WHITE BLOOD COUNT 6.9 10^3/uL (4.5-11.0)
--- NOTE | 2018-05-01 08:44 | PN ---
DATE: 05/01/2018 PULMONARY PROGRESS NOTE SUBJECTIVE: The patient is awake and alert, oriented. She is sitting in bed stating that she is feeling improved. She does have some intermittent cough. This is nonproductive in nature. There are no other complaints noted. OBJECTIVE: VITAL SIGNS: Remain stable. The patient remains afebrile with a pulse of 80, respiratory rate of 18, blood pressure 162/84, O2 saturation is 98% on nasal cannula oxygen. HEENT: Normocephalic, atraumatic. NECK: Supple. No JVD. No bruit or mass. CARDIOVASCULAR: Regular rhythm. S1, S2 without murmur, gallop, or rub. LUNGS: Global decrease in breath sounds, essentially clear to percussion and auscultation. Rales auscultated yesterday are no longer present today. ABDOMEN: Soft. Bowel sounds normoactive without mass, guarding, rebound, or organomegaly. EXTREMITIES: Reveal no clubbing or cyanosis. Partial amputation unchanged no Homans' sign. SKIN: No rash or excoriation. NEUROLOGIC: No focal findings. LABORATORY DATA: Chest x-ray done earlier shows persistent bilateral basilar atelectasis and/or infiltrates. This is a poor inspiratory film and deterioration does not appear to be present, although radiographically there are changes, these needs to be repeated with a full inspiration (discuss with radiology regarding quality of the film). CLINICAL IMPRESSION: 1. Status post right lower lobe pneumonia. 2. Bibasilar atelectasis. 3. Chronic obstructive pulmonary disease. 4. Hypoxemia - in resolution. PLAN: Continue vigorous chest physical therapy and antibiotics, bronchodilators and corticosteroids noted. Followup x-ray will be required to look for improvement in the pneumonia and atelectasis. This found on today's film. We will discuss with Dr. Enriquez for further followup in my absence. Thank you for the opportunity to care for this lindsay patient. Armando Freeman MD
--- NOTE | 2018-05-01 10:09 | RAD ---
Date of service: 05/01/2018 HISTORY: pneumonia? atelectasis? COMPARISON: Comparison chest dated 04/30/2018 TECHNIQUE: Chest PA and lateral FINDINGS: LUNGS: Persistent mild but improved previously noted bibasilar atelectasis and/or infiltrates PLEURA: No significant pleural effusion identified. No pneumothorax apparent. CARDIOVASCULAR: No aortic atherosclerotic calcification present. Normal cardiac size. No pulmonary vascular congestion. OSSEOUS STRUCTURES: No significant abnormalities. VISUALIZED UPPER ABDOMEN: Normal. OTHER FINDINGS: None. IMPRESSION: Persistent mild but improved previously noted bibasilar atelectasis and/or infiltrates
[2018-05-01] MEDS: Insulin Lispro 1 UNITS/0.01 ML SC SCH ×3 (12:45→16:28)
[2018-05-01] MEDS: Insulin Lispro (humaLOG) LOW Coverage SC SCH ×3 (12:46→21:45)
--- NOTE | 2018-05-01 14:17 | PN ---
DATE: 05/01/2018 SUBJECTIVE: The patient is resting comfortably in bed. She slept fairly well this morning. She is having abdominal pain, but not as severe, it is like a 3/10. She tried to eat a little bit of breakfast and she kept it down, which is good. No nausea or vomiting. She has not really gotten out of bed and walked yet. We will get more physical therapy into her. She has Ativan, Bentyl, Carafate, Colace, Cozaar, dextrose, Vibramycin, Duragesic patch, which is helping greatly with pain, Levemir. I increased the Norvasc to 10 mg, so blood pressure is not creeping up. She needs to have more potassium replacement as potassium has dropped. She is on Protonix, Prozac, Toradol, Xopenex and Zosyn. PHYSICAL EXAMINATION: GENERAL: She is alert. She is talking, not crying. VITAL SIGNS: She has a 97.1 temperature; 90 pulse; 168/96 blood pressure, I increased her Norvasc to 10; she has a 19 respiratory rate; 95% O2 sat on nasal cannula. HEENT: Head is atraumatic, normocephalic. HEART: Regular rate. LUNGS: Decreased breath sounds, but clear. ABDOMEN: Soft. Positive bowel sounds. No guarding or rebound. EXTREMITIES: No edema. LABORATORY DATA: She has a sodium 135; potassium 3.5, I will replace the potassium; BUN 90; creatinine 1.3; GFR is 42. Creatinine went up a little bit. Last blood sugar was 164; when she came in, it was very high. Calcium is 8. Total bili is 0.2, AST is 24, ALT is 29, alk phos 77, total protein is 5. ASSESSMENT AND PLAN: She has gastroparesis, intractable nausea and vomiting, which is all coming together slowly improving. She is being seen by Pulmonary. The chest x-ray shows persistent pneumonia, but improving. Endocrinology, Infectious Disease. Hoping that physical therapy will see her and keep her walking to get her out of bed to chair. I will give her potassium and increase her Norvasc. We will watch her very closely. She is here for gastroparesis, intractable nausea, vomiting, high blood sugars, and bilateral pneumonia. Josafat Dent DO
--- NOTE | 2018-05-01 16:13 | PN ---
DATE: 05/01/2018 ENDO FOLLOWUP NOTE Room number 264. SUBJECTIVE: This is a 57-year-old female with recent uncontrolled type 2 insulin-requiring diabetes presenting here with sudden onset of shortness of breath with productive cough and was evaluated to have an acute pneumonitis with hypoxemia and is now being followed closely for metabolic management. Her glycemic levels are fluctuating, but improved and the glucose levels overnight have ranged from 139-164 mg/dl. Her latest chemistries today showed a BUN of 19, sodium 135, potassium 3.3, chloride 105, CO2 of 28, glucose 156, and creatinine 1.3. Her abdominal pain has subsided but she continues to have persistent dyspepsia with suboptimal oral intake as noted. So at this time, we will continue the same basal and bolus insulin regimen to allow for dose equilibration and keep her on the Humalog given as 4 units three times a day before meals as ordered. We will continue the Levemir given as 6 units subq at bedtime daily as given. We will titrate incrementally as indicated to optimize metabolic control. We will follow with you. Tita Coe MD
--- NOTE | 2018-05-01 18:29 | PN ---
DATE: 05/01/2018 SUBJECTIVE: The patient is seen in bed, in no acute distress, and nontoxic. OBJECTIVE: VITAL SIGNS: Temperature is 98, blood pressure is 170/80, respiratory rate of 18, and heart rate of 90. HEENT: Unremarkable. NECK: Supple. LUNGS: Have decreased breath sounds. HEART: Normal S1 and S2. ABDOMEN: Soft and nontender. LABORATORY DATA: Reveals a white count of 6.9, hemoglobin of 9 and platelets of 285. BUN of 19 and creatinine of 1.3. Procalcitonin is negative and urinalysis is negative and toxicology is negative. Urine for Legionella is negative and microbiology is negative, no growth. Review of orders reveals the patient to be on doxycycline and Zosyn. ASSESSMENT AND PLAN: This is a 57-year-old female who was seen in room 564, bed 1 earlier this morning with history of hypertension, diabetes, chronic obstructive lung disease, transient ischemic attack, gastroparesis, esophageal abdominal pain associated with nausea and vomiting secondary to hyperglycemic hyperosmolar state aspiration pneumonia, right-sided pneumonia secondary to aspiration in face of gastroparesis and today is day #5 of antibiotics. We will discontinue Zosyn and doxycycline and the patient did have a negative procalcitonin, has received 5 days of antibiotics and we will discontinue the antibiotics, and follow the patient off of antibiotics. The patient is at risk for developing nosocomial infections. Marc Sales MD
[2018-05-01] MEDS: Insulin Detemir 100 units/ml Vial (Levemir) SC SCH (21:45)
[2018-05-02] MEDS: Levalbuterol 1.25 MG/3 ML Inhal Soln UD IH SCH ×4 (01:35→19:40)
[2018-05-02] MEDS: Sucralfate 1 gm/10 ml Oral Susp UD PO SCH ×2 (05:29→16:56)
[2018-05-02 06:25] LABS: HEMOGLOBIN 9.8 g/dL (12.0-16.0); MEAN CELL VOLUME 78.4 fl (80.0-105.0); MEAN CORPUSCULAR HEMOGLOBIN 24.9 pg (25.0-35.0); MEAN CORPUSCULAR HGB CONC 31.7 g/dl (31.0-37.0); MEAN PLATELET VOLUME 9.6 fl (7.0-11.0); RBC 3.94 10^6/uL (3.5-6.1); RED CELL DISTRIBUTION WIDTH 14.1 % (11.5-14.5); WHITE BLOOD COUNT 7.5 10^3/uL (4.5-11.0)
[2018-05-02 06:35] LABS: ALBUMIN 2.5 g/dL (3.0-4.8); CALCIUM 8.4 mg/dL (8.4-10.5)
[2018-05-02] MEDS: Insulin Lispro (humaLOG) LOW Coverage SC SCH ×4 (08:05→21:44)
[2018-05-02] MEDS: Insulin Lispro 1 UNITS/0.01 ML SC SCH ×3 (08:17→16:41)
--- NOTE | 2018-05-02 09:04 | DS ---
SUBJECTIVE: I saw Ting this morning. She slept poor last night. Abdominal pain, but she is eating, keeping the food down. No nausea or vomiting. She does well this morning. We will discharge this afternoon after lunch. She is now off the IV antibiotics. MEDICATIONS: She is on Apresoline, Ativan, Bentyl, Carafate, Colace, Cozaar, Duragesic patch, insulin, Norvasc, Protonix, Prozac, Toradol, Xopenex. Continue with those medications at home. PHYSICAL EXAMINATION: VITAL SIGNS: She has 98.9 temperature, 90 pulse, 150/91 blood pressure, 20 respiratory rate, 97% sat on 2 liters nasal cannula. HEENT: Head is atraumatic, normocephalic. HEART: Regular rate. LUNGS: Decreased breath sounds, but clear. ABDOMEN: Soft. Positive bowel sounds. No guarding, no rebound or CVA tenderness. She tells me she has abdominal pain. she does eating today. EXTREMITIES: No edema. LABORATORY DATA: If she does well, we will discharge her home with a 7.5 white count, 9.8 hemoglobin, 30.9 hematocrit, 311 platelets. Sodium 134, potassium 3.8, BUN 20, creatinine 1.2, GFR is , blood sugar is 203, calcium is 8.4. Total bili is 0.1, AST is 23, ALT is 24, alk phos 84, protein is 5.1 and she is off IV antibiotics at this time. IMPRESSION AND PLAN: She should be discharged later today after she eats the lunch, down and persistent gastroparesis, elevated blood sugars, bilateral pneumonia. She is off the antibiotics, diabetes. Josafat Dent DO [facility]
--- NOTE | 2018-05-02 09:30 | PN ---
DATE: 05/02/2018 CARDIOLOGY FOLLOWUP SUBJECTIVE: The patient's pain is better, but remains chronic. PHYSICAL EXAMINATION: VITAL SIGNS: Blood pressure is 150/80. NECK: Negative JVD. LUNGS: Without rales. HEART: S1, S2. EXTREMITIES: Without edema. LABORATORY DATA: Hemoglobin is 9.8. Chemistries; BUN and creatinine unremarkable. IMPRESSION: 1. Abdominal pain secondary to gastroparesis. 2. Diabetes mellitus. 3. Anemia. 4. Continued sedentary lifestyle. PLAN: Given these findings, we will discontinue telemetry today. No further cardiac workup is necessary. Carter Farmer MD
--- NOTE | 2018-05-02 10:51 | PN ---
DATE: 05/02/2018 SUBJECTIVE: The patient appears comfortable this morning. She is not short of breath at rest. PHYSICAL EXAMINATION: VITALS: Temperature is 98.9, pulse 92, respiratory rate 18/20, blood pressure 150/91. Oxygen saturation on nasal cannula is 97-99%. HEENT: Normocephalic, atraumatic. No JVD. CARDIOVASCULAR: Positive S1, S2. No S3 gallop. LUNGS: Less crackles at the bases. Much less/minimal rhonchi. No wheezing. 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 There is no edema in her legs. There is no cyanosis or clubbing. Calves are nontender to palpation. GI: Abdomen is soft. It is nondistended and nontender to palpation. Bowel sounds are positive. SKIN: No acute rash. NEUROLOGIC: Exam limited at the present time. PERTINENT LABORATORY DATA: Chest x-ray was done yesterday and reviewed. There is further clearing of the right lower lobe infiltrate. The film done yesterday is significantly improved - compared to the initial film. IMPRESSION: 1. Right lower lobe pneumonia - rule out aspiration. 2. Chronic obstructive pulmonary disease. 3. Hypoxemia - resolving. 4. Chronic gastroparesis. 5. Uncontrolled diabetes mellitus. PLAN: The patient appears comfortable this morning. She is not short of breath at rest. She does state to feeling much better overall. I did review the last chest x-ray done. As above, the chest x-ray shows continued improvement - with almost complete resolution of the previously seen right lower lobe infiltrate. On physical exam, there is much less bronchospasm noted. In addition, there is a significant decrease in the alveolar-arterial gradient. I will continue with the current nebulizer treatments and aspiration precautions for now. The patient is now off antibiotic therapy - as per Infectious Disease. Input by Dr. Sales is noted. There are no temperatures spikes. There is no leukocytosis. Clinical status of the patient is significantly improved overall. I will discuss the above with Dr. Dent. Cesar Enriquez MD [facility]
--- NOTE | 2018-05-02 11:50 | CON ---
DATE OF CONSULTATION: 05/02/2018 HISTORY OF PRESENT ILLNESS: The patient is a 57-year-old female with a history of depression and anxiety, for which psychiatrist is following up on the medical floor. Dr. Napier met with the patient and I reviewed her consultation and I also met with the patient on 04/30/2018 which was 2 days ago and again today. She continues to be coherent without any hallucinations and responses are relevant to questioning. She is oriented and indicates that she is still depressed. She wants to live. She wants to improve. Affect is constricted as before; however, she does appear to be a little bit more spontaneous and engaged during my questioning today. Focus is fair, and there have been no behavioral issues on the unit. Again, she denies having any wishes or suicidal thoughts, and there is no evidence of perceptual disturbance. Insight and judgement are considered to be fair. Vital signs and labs were reviewed. RELEVANT PSYCHIATRIC MEDICATIONS: Include Prozac 20 mg daily and Ativan 0.5 b.i.d. IMPRESSION: 1. Depression, not otherwise specified. Rule out major depressive disorder. 2. Moderate anxiety, not otherwise specified. 3. Likely adjustment disorder with depression and mixed depression anxiety contributing to her presentation. Rule out depression secondary to general medical condition. RECOMMENDATIONS: We will continue current medications of Prozac and Ativan. No indication to change medications at this time. This provider reviewed possible side effects, therapeutic latency, and benefits of these medications. She continues to tolerate them well, and she denies any major side effects. The patient is psychiatrically cleared should she be medically cleared, however, might benefit from psychiatric admission and she is welcome to sign in, if she would like to follow up on this recommendation. Psychiatry will continue to follow up and monitor her progress. Adiel Recio MD [facility]
--- NOTE | 2018-05-02 13:42 | CP.PCM.PN ---
<Abdullahi Giang - Last Filed: 05/02/18 13:37> Subjective - Date & Time of Evaluation Date of Evaluation: 05/02/18 Time of Evaluation: 08:00 - Subjective Subjective: Progress note for ID Service - Dr. Bryan Pt was seen and examined at bedside. Patient still has some abdominal discomfort and intermittent nausea, however improved since admission. Pt denied fever, chills, sob, chest pains, diarrhea, vomitting,or urinary symptoms. Objective - Vital Signs/Intake and Output Vital Signs (last 24 hours): Temp Pulse Resp BP Pulse Ox 98.2 F 83 18 173/98 H 97 05/02/18 12:00 05/02/18 12:00 05/02/18 12:00 05/02/18 12:00 05/02/18 06:00 Intake and Output: 05/02/18 05/02/18 06:59 18:59 Intake Total 2320 Balance 2320 - Medications Medications: Current Medications Amlodipine Besylate (Norvasc) 10 mg PO DAILY [facility] Last Admin: 05/02/18 10:04 Dose: 10 mg Dicyclomine HCl (Bentyl) 10 mg PO BID PRN PRN Reason: abdominal pain Last Admin: 04/28/18 22:29 Dose: 10 mg Docusate Sodium (Colace) 100 mg PO DAILY [facility] Last Admin: 05/02/18 10:04 Dose: 100 mg Fentanyl (Duragesic) 1 patch TD Q72H [facility] Last Admin: 05/02/18 10:02 Dose: 1 patch Fluoxetine HCl (Prozac) 20 mg PO DAILY [facility] Last Admin: 05/02/18 10:03 Dose: 20 mg Hydralazine HCl (Apresoline) 10 mg IVP Q6 PRN PRN Reason: SBP greater than 160 Last Admin: 05/01/18 19:08 Dose: 10 mg Insulin Detemir (Levemir) 6 unit SC HS [facility] Last Admin: 05/01/18 21:45 Dose: 6 u Insulin Human Lispro (Humalog Low) 0 units SC ACHS [facility]; Protocol Last Admin: 05/02/18 11:39 Dose: Not Given Insulin Human Lispro (Humalog) 4 units SC AC [facility] Last Admin: 05/02/18 11:39 Dose: Not Given Ketorolac Tromethamine (Toradol) 30 mg IVP Q6H PRN PRN Reason: Pain, moderate (4-7) Last Admin: 05/02/18 05:27 Dose: 30 mg Levalbuterol HCl (Xopenex) 1.25 mg IH [id number] [facility] Last Admin: 05/02/18 07:37 Dose: 1.25 mg Lorazepam (Ativan) 0.5 mg PO BID [facility]; Protocol Last Admin: 05/02/18 10:34 Dose: Not Given Losartan Potassium (Cozaar) 100 mg PO DAILY [facility] Last Admin: 05/02/18 10:03 Dose: 100 mg Pantoprazole Sodium (Protonix Inj) 40 mg IVP ACBD [facility] Last Admin: 05/02/18 08:16 Dose: 40 mg Sucralfate (Carafate Oral Susp) 1 gm PO 0600,1600 [facility] Last Admin: 05/02/18 05:29 Dose: 1 gm - Labs Labs: 05/02/18 05:40 05/02/18 05:40 PT 10.5 SECONDS (9.4-12.5) 04/27/18 03:50 INR 0.92 04/27/18 03:50 APTT 27.5 Seconds (25.1-36.5) 04/27/18 03:50 - Constitutional Appears: No Acute Distress - Head Exam Head Exam: ATRAUMATIC, NORMAL INSPECTION, NORMOCEPHALIC - Eye Exam Eye Exam: EOMI, Normal appearance, PERRL Pupil Exam: NORMAL ACCOMODATION, PERRL - ENT Exam ENT Exam: Mucous Membranes Moist, Normal Exam - Respiratory Exam Respiratory Exam: Clear to Ausculation Bilateral, NORMAL BREATHING PATTERN - Cardiovascular Exam Cardiovascular Exam: REGULAR RHYTHM, +S1, +S2. absent: Murmur - GI/Abdominal Exam GI & Abdominal Exam: Soft, Tenderness, Hypoactive Bowel Sounds - Neurological Exam Neurological Exam: Alert, Awake, CN II-XII Intact, Normal Gait, Oriented x3 - Psychiatric Exam Psychiatric exam: Normal Affect, Normal Mood - Skin Skin Exam: Dry, Intact, Normal Color, Warm Assessment and Plan - Assessment and Plan (Free Text) Assessment: 57 female with PMHx of HTN, DM2, COPD, TIA, gastroparesis presents with epigastric abdominal pain associated with nausea/vomiting secondary to hypergly cemic hyperosmolar state in the setting of likely aspiration pneumonia s/p multiple (5-6) episodes of emesis. 1. Hyperglycemic hyperosmolar state 2. right-sided PNA likely secondary to aspiration 3. Hx of gastroparesis 4. Hx of insulin dependent DM type 2 , noncompliant with medications 5. COPD 6. TIA - DC all antibiotics, completed 5 days - Cxs negative, strep pna ag negative, legionella negative - electrolytes stable - renal us reviewed - HIV and RPR previously negative - CXR was reviewed and notable for Right-sided infiltrate, likely aspiration - CT abd/pelvis reviewed - EGD 10/2017 showed H. pylori negative bile gastritis and fundic gland polyps. <Ollie Bryan - Last Filed: 05/02/18 22:07> Objective - Vital Signs/Intake and Output Vital Signs (last 24 hours): Temp Pulse Resp BP Pulse Ox 98 F 121 H 18 135/85 97 05/02/18 17:47 05/02/18 18:00 05/02/18 17:47 05/02/18 17:47 05/02/18 06:00 Intake and Output: 05/02/18 05/03/18 18:59 06:59 Intake Total 300 720 Balance 300 720 - Medications Medications: Current Medications Amlodipine Besylate (Norvasc) 10 mg PO DAILY [facility] Last Admin: 05/02/18 10:04 Dose: 10 mg Dicyclomine HCl (Bentyl) 10 mg PO BID PRN PRN Reason: abdominal pain Last Admin: 04/28/18 22:29 Dose: 10 mg Docusate Sodium (Colace) 100 mg PO DAILY [facility] Last Admin: 05/02/18 10:04 Dose: 100 mg Fentanyl (Duragesic) 1 patch TD Q72H [facility] Last Admin: 05/02/18 10:02 Dose: 1 patch Fluoxetine HCl (Prozac) 20 mg PO DAILY [facility] Last Admin: 05/02/18 10:03 Dose: 20 mg Hydralazine HCl (Apresoline) 10 mg IVP Q6 PRN PRN Reason: SBP greater than 160 Last Admin: 05/02/18 13:38 Dose: 10 mg Insulin Detemir (Levemir) 8 unit SC [facility] Last Admin: 05/02/18 22:03 Dose: 8 unit Insulin Human Lispro (Humalog Low) 0 units SC [facility]; Protocol Last Admin: 12/03/18 21:44 Dose: Not Given Insulin Human Lispro (Humalog) 4 units SC AC [facility] Last Admin: 05/02/18 16:41 Dose: Not Given Ketorolac Tromethamine (Toradol) 30 mg IVP Q6H PRN PRN Reason: Pain, moderate (4-7) Last Admin: 05/02/18 05:27 Dose: 30 mg Levalbuterol HCl (Xopenex) 1.25 mg IH [id number] [facility] Last Admin: 05/02/18 19:40 Dose: 1.25 mg Lorazepam (Ativan) 0.5 mg PO BID [facility]; Protocol Last Admin: 05/02/18 17:00 Dose: 0.5 mg Losartan Potassium (Cozaar) 100 mg PO DAILY [facility] Last Admin: 05/02/18 10:03 Dose: 100 mg Ondansetron HCl (Zofran Inj) 4 mg IVP Q6H PRN PRN Reason: Nausea/Vomiting Last Admin: 05/02/18 14:00 Dose: 4 mg Pantoprazole Sodium (Protonix Inj) 40 mg IVP ACBD [facility] Last Admin: 05/02/18 16:56 Dose: 40 mg Sucralfate (Carafate Oral Susp) 1 gm PO 0600,1600 [facility] Last Admin: 05/02/18 16:56 Dose: 1 gm - Labs Labs: 05/02/18 05:40 05/02/18 05:40 PT 10.5 SECONDS (9.4-12.5) 04/27/18 03:50 INR 0.92 04/27/18 03:50 APTT 27.5 Seconds (25.1-36.5) 04/27/18 03:50 Assessment and Plan - Assessment and Plan (Free Text) Assessment: Infectious diseases Attending Physician Attestation Patient seen and examined, discussed with medical appliance maker. I have reviewed the patient's history of present illness, past medical, social, personal and family histories, pertinent physical exam findings, course so far in this hospital admission, pertinent laboratory and imaging results. I agree with the above findings, assessment and plan. In addition, will continue to monitor off antibiotics - patient is S/P treatment for right lower lobe HCAP.
--- NOTE | 2018-05-02 13:55 | CP.PCM.PN ---
Subjective - Date & Time of Evaluation Date of Evaluation: 05/02/18 Time of Evaluation: 09:25 - Subjective Subjective: ID Progress Note - Dr. Bryan Patient was seen and examined at bedside. Pt is at baseline mentation and conversing appropriately. Pt has no acute complaints at this time and is tolerating diet and moving bowels and bladder regularly. He is on 1;1 on account of pulling his lines yesterday. Denied fever, chills, sob, chest pains, abdomi nal pains, nausea or vomiting. Objective - Vital Signs/Intake and Output Vital Signs (last 24 hours): Temp Pulse Resp BP Pulse Ox 98.2 F 83 18 203/120 H 97 05/02/18 12:00 05/02/18 12:00 05/02/18 12:00 05/02/18 13:42 05/02/18 06:00 Intake and Output: 05/02/18 05/02/18 06:59 18:59 Intake Total 2320 Balance 2320 - Medications Medications: Current Medications Amlodipine Besylate (Norvasc) 10 mg PO DAILY [facility] Last Admin: 05/02/18 10:04 Dose: 10 mg Dicyclomine HCl (Bentyl) 10 mg PO BID PRN PRN Reason: abdominal pain Last Admin: 04/28/18 22:29 Dose: 10 mg Docusate Sodium (Colace) 100 mg PO DAILY [facility] Last Admin: 05/02/18 10:04 Dose: 100 mg Fentanyl (Duragesic) 1 patch TD Q72H [facility] Last Admin: 05/02/18 10:02 Dose: 1 patch Fluoxetine HCl (Prozac) 20 mg PO DAILY [facility] Last Admin: 05/02/18 10:03 Dose: 20 mg Hydralazine HCl (Apresoline) 10 mg IVP Q6 PRN PRN Reason: SBP greater than 160 Last Admin: 05/02/18 13:38 Dose: 10 mg Insulin Detemir (Levemir) 6 unit SC HS [facility] Last Admin: 05/01/18 21:45 Dose: 6 u Insulin Human Lispro (Humalog Low) 0 units SC [facility]; Protocol Last Admin: 05/02/18 11:39 Dose: Not Given Insulin Human Lispro (Humalog) 4 units SC AC [facility] Last Admin: 05/02/18 11:39 Dose: Not Given Ketorolac Tromethamine (Toradol) 30 mg IVP Q6H PRN PRN Reason: Pain, moderate (4-7) Last Admin: 05/02/18 05:27 Dose: 30 mg Levalbuterol HCl (Xopenex) 1.25 mg IH [id number] [facility] Last Admin: 05/02/18 07:37 Dose: 1.25 mg Lorazepam (Ativan) 0.5 mg PO BID [facility]; Protocol Last Admin: 05/02/18 10:34 Dose: Not Given Losartan Potassium (Cozaar) 100 mg PO DAILY [facility] Last Admin: 05/02/18 10:03 Dose: 100 mg Pantoprazole Sodium (Protonix Inj) 40 mg IVP ACBD [facility] Last Admin: 05/02/18 08:16 Dose: 40 mg Sucralfate (Carafate Oral Susp) 1 gm PO 0600,1600 [facility] Last Admin: 05/02/18 05:29 Dose: 1 gm - Labs Labs: 05/02/18 05:40 05/02/18 05:40 PT 10.5 SECONDS (9.4-12.5) 04/27/18 03:50 INR 0.92 04/27/18 03:50 APTT 27.5 Seconds (25.1-36.5) 04/27/18 03:50 - Constitutional Appears: No Acute Distress - Head Exam Head Exam: ATRAUMATIC, NORMAL INSPECTION, NORMOCEPHALIC - Eye Exam Eye Exam: EOMI, Normal appearance, PERRL Pupil Exam: NORMAL ACCOMODATION, PERRL - ENT Exam ENT Exam: Mucous Membranes Moist, Normal Exam - Neck Exam Neck Exam: Full ROM, Normal Inspection. absent: Lymphadenopathy - Respiratory Exam Respiratory Exam: Clear to Ausculation Bilateral, NORMAL BREATHING PATTERN - Cardiovascular Exam Cardiovascular Exam: REGULAR RHYTHM, +S1, +S2. absent: Murmur - GI/Abdominal Exam GI & Abdominal Exam: Soft, Normal Bowel Sounds. absent: Tenderness - Neurological Exam Neurological Exam: Alert, Awake, CN II-XII Intact, Normal Gait, Oriented x3 - Psychiatric Exam Psychiatric exam: Normal Affect, Normal Mood - Skin Skin Exam: Dry, Intact, Normal Color, Warm Assessment and Plan - Assessment and Plan (Free Text) Assessment: 74yo male with history of CAD s/p stent, CABG, TIA, CVA x3, DM presents with altered mental status in the setting of nausea/vomiting/fevers concerning for infectious etiology. ID consulted for evaluation 1. Altered mental status, improving 2. SIRS, R/O sepsis with encephalopathy, R/O acute viral syndrome. 3. Fever of unknown origin 4. CAD 5. hx of CVA x3 6. DM - MRI negative, pancx negative no leukocytosis, pct negative, DC abx at this time, likely 2/2 viral syndrome -SIRS, R/O sepsis with encephalopathy, R/O acute viral syndrome. Follow up blood, urine cx. CXR is clear. -Rapid flu negative - CT revealed esophagitis, EGD esophogram discussed as per GI -Neurology consultation noted, Dr. Preciado recs pending after MRI -CXR revealed no active disease -UA negative Patient seen and case discussed/reviewed with attending, Dr. Bryan
[2018-05-02] MEDS ORDERED: Insulin Detemir 100 units/ml Vial (Levemir) SC SCH (22:00)
[2018-05-03 01:15] VITALS: O2SAT 20
--- NOTE | 2018-05-03 01:27 | PN ---
DATE: 05/02/2018 ENDOCRINOLOGY FOLLOWUP NOTE LOCATION: Room 261. This is a 57-year-old female with recent uncontrolled type 1 insulin-dependent diabetes, now being followed closely for metabolic management. Her glycemic levels are fluctuating but improved, and the latest glucose levels have ranged from 112 to 150 mg/dL. 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 Her bedtime glucose was 189 as noted. The chemistries also done today showed a BUN of 20, sodium 134, potassium 3.8, chloride 102, CO2 of 30, glucose 203, and creatinine 1.2. So at this time, we will modify once again her basal and bolus insulin regimen and increase the Levemir to 8 units subcu at bedtime daily to start tonight. We will continue the Humalog given as 4 units subcu t.i.d. before meals as ordered. We will obtain serial chemistries and supplement accordingly as needed. We will continue also the low-dose correction scale using Humalog insulin as ordered. We will obtain serial chemistries and supplement accordingly as needed. We will follow. Tita Coe MD
[2018-05-03] MEDS: Levalbuterol 1.25 MG/3 ML Inhal Soln UD IH SCH ×3 (02:05→13:46)
[2018-05-03] MEDS: Sucralfate 1 gm/10 ml Oral Susp UD PO SCH ×2 (05:59→17:41)
--- NOTE | 2018-05-03 07:25 | DS ---
SUBJECTIVE: I tried to discharge her yesterday, but the nurses called me telling me that her blood pressure went high, she was nauseous, so they do not want me to discharge her. I have kept her another day. She is being seen by Endocrinology, Infectious Disease, Psychiatry, Cardiology for medication adjustments. She is doing better this morning. She slept fairly well last night. She is hungry, which is good. Not nauseous this morning. OBJECTIVE: VITAL SIGNS: She has a 97 temperature, 73 pulse, 148/93 blood pressure, 20 respiratory rate. HEENT: Head is atraumatic, normocephalic. HEART: Regular rate. LUNGS: Decreased breath sounds, but clear. ABDOMEN: Soft, nontender. Positive bowel sounds. EXTREMITIES: No edema. Our plans to be discharge today. Labs yesterday were okay. Last blood sugar was 225. Being seen by Endocrinology, Infectious Disease, Psychiatry, Cardiology, Gastroenterology. She has some anxiety and major depression. She is going to be going home on her hydralazine, Ativan, Bentyl, Carafate, Colace, Cozaar, Duragesic patch, insulin, Levemir, Norvasc, Protonix, Prozac, Toradol, Xopenex, and Zofran as needed. If they need any medications, they will call me. I do house calls on her and hopefully she will do well. She had multiple problems, bilateral pneumonia, gastroparesis, elevated blood sugar, diabetes, and nauseousness. Josafat Dent, DO (Delete this signature block when dictator is a preceptor.) cc: MD Sofya (Delete if not dictated.) [email or web address]
--- NOTE | 2018-05-03 07:52 | PN ---
DATE: 05/03/2018 SUBJECTIVE: The patient appears very comfortable this morning. She is not short of breath at rest. PHYSICAL EXAMINATION: VITAL SIGNS: Temperature is 97.0, pulse 73, respirations 18, blood pressure 148/93. Oxygen saturation on room air is 95%. HEENT: Normocephalic, atraumatic. No JVD. CARDIOVASCULAR: Positive S1 and S2. No S3 gallop. LUNGS: Minimal/less crackles at the bases. Otherwise clear. 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 There is no edema in her legs. There is no cyanosis or clubbing. Calves are nontender to palpation. GI: Abdomen is soft, nontender, and nondistended. Bowel sounds are positive. SKIN: No acute rash. NEUROLOGIC: Limited at the present time. IMPRESSION: 1. Right lower lobe pneumonia - rule out aspiration. 2. Chronic obstructive pulmonary disease. 3. Hypoxemia - resolving. 4. Chronic gastroparesis. 5. Uncontrolled diabetes mellitus. Plan: The patient appears very comfortable this morning. She is not short of breath at rest. She does state to feeling much better overall. I did discuss the case with the night nurse at length. The night nurse stated the patient had a very good night. On physical exam, there is no significant bronchospasm noted. In addition, the alveolar-arterial gradient is significantly less. I will continue the current nebulizer treatments and aspiration precautions for now. The patient remains off antibiotic therapy. There are no temperatures noted. There is no leukocytosis. Inputs by Endocrine and Psychiatry are also noted. Clinical status of the patient is significantly improved overall. However, given the above, the patient's overall status/prognosis does remain somewhat guarded. I will discuss the above with Dr. Dent. Cesar Enriquez MD MTDD
[2018-05-03] MEDS: Insulin Lispro (humaLOG) LOW Coverage SC SCH ×3 (08:18→17:41)
[2018-05-03] MEDS: Insulin Lispro 1 UNITS/0.01 ML SC SCH ×3 (08:40→17:40)
[2018-05-03] MEDS ORDERED: Dexamethasone 4 mg/1 ml IVP ONE (13:30)
[2018-05-03 14:00] VITALS: BP 152/107; PULSE 103; RESP 21; TEMP 97.8
--- NOTE | 2018-05-03 15:20 | PN ---
DATE: 05/03/2018 SUBJECTIVE: The patient is in bed, in no acute distress, nontoxic, seen earlier today. PHYSICAL EXAMINATION: VITAL SIGNS: Temperature of 97, blood pressure is 140/90, respiratory rate of 18 and heart rate of 73. HEENT: Unremarkable. NECK: Supple. LUNGS: Have decreased breath sounds. HEART: Normal, S1 and S2. ABDOMEN: Soft and nontender. LABORATORY EXAMINATION: Reveals a white count of 7.5 and hemoglobin of 9. BUN of 20 and creatinine of 1.2. Microbiology is noted. Review of orders reveals the patient to be off of antibiotics. ASSESSMENT AND PLAN: This is a 57-year-old female with hypertension, diabetes, chronic obstructive lung disease, transient ischemic attack and gastroparesis presents with epigastric abdominal pain nausea and vomiting and hyperglycemic hyperosmolar state with completed antibiotic therapy and currently off of antibiotics, afebrile. The patient is at risk for developing nosocomial infections. Marc Sales MD
--- NOTE | 2018-05-03 20:49 | PN ---
DATE: 05/03/2018 FOLLOWUP NOTE SUBJECTIVE: The patient has long history of poorly controlled diabetes, gastroparesis, mood disorder due to general medical condition. Please see admission note for more detailed information. The patient was followed up by psychiatric team for evaluation of depressive symptoms as well as anxiety. The patient was on Prozac 20 mg daily, which the patient tolerated well. The patient also was on Ativan for anxiety and tolerated well. The patient was seen today. The patient presented to be mildly upset. The patient said that she wants to stay in the hospital for another day because her stomach is still bothering her, but overall presented well. Denied being depressed, denied thoughts of harming herself or others, denied hearing voices, denied seeing things. The patient expressed no interest to follow up with outpatient psychiatrist and reported that medications are provided by Dr. Dent. PHYSICAL EXAMINATION: VITAL SIGNS: Reviewed. Temperature 97.8, pulse 103, blood pressure 152/107, respirations 21. MENTAL STATUS EXAMINATION: The patient presented to be alert and oriented, pleasant, and cooperative. Mood described as mildly depressed. Affect was constricted, but the patient was able to smile. Thought process to be coherent and goal directed. Thought content; the patient denied visual, auditory, or tactile hallucinations. Denied paranoid ideation. The patient denied thoughts of harming herself or others. Denied intent or plan. Insight and judgment seems to be fair. Impulses are well controlled. MEDICATIONS: Reviewed. Norvasc, Bentyl, Colace, fentanyl, Prozac 20 mg daily, hydralazine, Levemir, Humalog, Toradol, Ativan 0.5 mg twice a day, Cozaar, Zofran, Protonix, and sucralfate. LABORATORY DATA: Reviewed, most recent was from today. IMPRESSION: Mood disorder due to general medical condition. PLAN: Continue Prozac. The patient adamantly denied thoughts of harming herself or others. The patient pose no imminent danger to self or others, stable for discharge. The patient has supportive family who are visiting the patient on the medical side. Thank you very much for letting me participate in care of your patient. Should you have any questions, give me a call. Lidia Napier MD [facility] # [phone]
--- NOTE | 2018-05-03 23:26 | PN ---
DATE: 05/03/2018 ENDOCRINOLOGY FOLLOWUP NOTE LOCATION: Room 261. This is a 57-year-old female with recent uncontrolled type 2 insulin-requiring diabetes, now being followed closely for metabolic management. She is also undergoing IV antibiotic management for recent acute pneumonitis as noted. Moreover, she also has persistent variable oral intake with suboptimal meal portions because of upper abdominal pain and underlying diabetic gastroparesis. Her glucose values are fluctuating, but improved and have ranged from 150 to 181 and 225 mg/dL. Her latest chemistries showed a BUN of 20, sodium 134, potassium 3.8, chloride 102, CO2 of 30, glucose 203, and creatinine 1.2. So at this time, we will continue the same modified basal and bolus insulin regimen as given with Humalog given as 4 units t.i.d. before meals as ordered. We will continue Levemir given as 8 units subcu at bedtime daily as given. We will obtain serial chemistries and supplement accordingly as needed. We will follow. Tita Coe MD
== END 2018-05-03 19:13 | disposition home or self-care (01) | DRG 871 ==
LOC: ED 02:41 → ERH 06:49 → CCU 09:49 → 2RNO 04-29 16:32
PROVIDERS: ADMIT Family Medicine; ATTEND Family Medicine
PROC: 3E0F7GC Introduction of Other Therapeutic Substance into Respiratory Tract, Via Natural or Artificial Opening (ICD-10-PCS; principal; 2018-04-27)
DX: A41.9 Sepsis, unspecified organism (principal); E11.00 Type 2 diabetes mellitus with hyperosmolarity without nonketotic hyperglycemic-hyperosmolar coma (NKHHC); J69.0 Pneumonitis due to inhalation of food and vomit; E11.10 Type 2 diabetes mellitus with ketoacidosis without coma; G93.41 Metabolic encephalopathy; J44.0 Chronic obstructive pulmonary disease with (acute) lower respiratory infection; N17.9 Acute kidney failure, unspecified; E11.43 Type 2 diabetes mellitus with diabetic autonomic (poly)neuropathy; K31.84 Gastroparesis; I10 Essential (primary) hypertension; E11.319 Type 2 diabetes mellitus with unspecified diabetic retinopathy without macular edema; E11.42 Type 2 diabetes mellitus with diabetic polyneuropathy; E11.51 Type 2 diabetes mellitus with diabetic peripheral angiopathy without gangrene; R09.02 Hypoxemia; E86.0 Dehydration; F41.0 Panic disorder [episodic paroxysmal anxiety]; K44.9 Diaphragmatic hernia without obstruction or gangrene; E78.5 Hyperlipidemia, unspecified; R65.20 Severe sepsis without septic shock; E11.649 Type 2 diabetes mellitus with hypoglycemia without coma; F06.30 Mood disorder due to known physiological condition, unspecified; G89.29 Other chronic pain; Z86.73 Personal history of transient ischemic attack (TIA), and cerebral infarction without residual deficits; Z91.14 Patient's other noncompliance with medication regimen; Z79.4 Long term (current) use of insulin

== ENCOUNTER 2018-05-16 14:26 | Observation (INO) | payer BC, MEDICARE ==
[2018-05-16 14:27] VITALS: BMI 22.4
[2018-05-16 15:54] LABS: BASO # 0.04 K/mm3 (0.0-2.0); BASO % 0.5 % (0.0-3.0); EOS # 0.1 (0.0-0.7); EOS % 1.7 % (1.5-5.0); GRAN # 6.29 (1.4-6.5); GRAN % 76.1 % (50.0-68.0); HEMOGLOBIN 11.8 g/dL (12.0-16.0); LYMPH # 1.6 (1.2-3.4); LYMPH % 18.8 % (22.0-35.0); MEAN CELL VOLUME 77.9 fl (80.0-105.0); MEAN CORPUSCULAR HEMOGLOBIN 25.3 pg (25.0-35.0); MEAN CORPUSCULAR HGB CONC 32.4 g/dl (31.0-37.0); MEAN PLATELET VOLUME 9.7 fl (7.0-11.0); MONO # 0.2 (0.1-0.6); MONO % 2.9 % (1.0-6.0); RBC 4.67 10^6/uL (3.5-6.1); RED CELL DISTRIBUTION WIDTH 13.8 % (11.5-14.5); WHITE BLOOD COUNT 8.3 10^3/uL (4.5-11.0)
[2018-05-16 16:02] LABS: INR 0.93; PARTIAL THROMBOPLASTIN TIME 29.7 Seconds (25.1-36.5); PROTHROMBIN TIME 10.6 SECONDS (9.4-12.5)
[2018-05-16 16:17] LABS: TROPONIN I < 0.01 ng/mL
[2018-05-16 16:19] LABS: ALB/GLOB RATIO 1.2 (1.1-1.8); ALBUMIN 3.6 g/dL (3.0-4.8); ALT/SGPT 34 U/L (7-56); AMYLASE 78 U/L (35-125); AST/SGOT 38 U/L (14-36); BLOOD UREA NITROGEN 21 mg/dL (7-21); CALCIUM 9.2 mg/dL (8.4-10.5); GFR NON-AFRICAN AMERICAN 57; LIPASE 38 U/L (23-300)
[2018-05-16 16:48] LABS: PH,URINE 7.5 (4.7-8.0); URINE BILIRUBIN NEGATIVE (NEGATIVE); URINE BLOOD SMALL (NEGATIVE); URINE GLUCOSE (UA) 250 mg/dL (NEGATIVE); URINE LEUKOCYTE ESTERASE NEGATIVE Leu/uL (NEGATIVE); URINE PROTEIN 100 mg/dL (<30 mg/dL); URINE UROBILINOGEN 0.2 E.U./dL (<1 E.U./dL)
[2018-05-16 16:50] LABS: URINE APPEARANCE CLEAR (CLEAR); URINE COLOR STRAW (YELLOW)
[2018-05-16] MEDS ORDERED: Potassium Chloride 20 mEq ER Tab PO STA (16:58)
[2018-05-16] MEDS ORDERED: Iohexol 350 MG/100 ML VIAL ONE (17:32)
--- NOTE | 2018-05-16 19:01 | CT ---
Date of service: 05/16/2018 PROCEDURE: CT Abdomen and Pelvis with contrast HISTORY: epigastric abdominal pain COMPARISON: None. TECHNIQUE: Contrast dose: 100 cc of Omni 350 Radiation dose: Total exam DLP = 316.94 mGy-cm. This CT exam was performed using one or more of the following dose reduction techniques: Automated exposure control, adjustment of the mA and/or kV according to patient size, and/or use of iterative reconstruction technique. FINDINGS: LOWER THORAX: Unremarkable. LIVER: Unremarkable. No gross lesion or ductal dilatation. GALLBLADDER AND BILE DUCTS: Unremarkable. PANCREAS: Unremarkable. No gross lesion or ductal dilatation. SPLEEN: Unremarkable. ADRENALS: Unremarkable. No mass. KIDNEYS AND URETERS: Unremarkable. No hydronephrosis. No solid mass. VASCULATURE: Unremarkable. No aortic aneurysm. No aortic atherosclerotic calcification or mural plaque present. BOWEL: Unremarkable. No obstruction. No gross mural thickening. There is a small ventral hernia containing a segment of bowel. There is no associated obstruction APPENDIX: Normal appendix. PERITONEUM: Unremarkable. No free fluid. No free air. LYMPH NODES: Unremarkable. No enlarged lymph nodes. BLADDER: The bladder is distended and extends above the iliac crests. REPRODUCTIVE: Unremarkable. BONES: No acute fracture. OTHER FINDINGS: None. IMPRESSION: Distended bladder. Small ventral hernia with no obstruction No acute intra-abdominal findings.
[2018-05-16] MEDS: Sodium Chloride 0.45% 1,000 ML IV SCH (19:41)
--- NOTE | 2018-05-16 19:56 | ED PDOC ---
Arrival/HPI - General Chief Complaint: Abdominal Pain Time Seen by Provider: 05/16/18 14:50 Historian: Patient - History of Present Illness Narrative History of Present Illness (Text): 05/16/18 19:54 57 year old female, whose past medical history includes gastroparesis, TIA, COPD, Hypertension c/o epigastric abdominal pain x 2 days. States it feels similar to her usual gastroparesis episodes. Associated nausea, with two episod es of non-bloody, non-bilious vomiting yesterday; none today. Patient seen here multipkle times with similar complaints. Spoke with her PMD, Dr. Dent this morning who suggested she come to be evaluated in the ED. Last admitted 04/27/18 for pneumonia. Did not take any of her medication today. Denies fever, chills, SOB, chest pain, back pain, urinary symptoms, headache, dizziness, vision changes, palpitations, diaphoresis, syncope, numbness, weakness, paresthesias, or any other associated symptoms. Past Medical History - Provider Review Nursing Documentation Reviewed: Yes - Past History Past History: No Previous - Infectious Disease Hx of Infectious Diseases: None - Tetanus Immunization Tetanus Immunization: Unknown - Cardiac Hx Hypertension: Yes - Pulmonary Hx Chronic Obstructive Pulmonary Disease (COPD): Yes - Neurological Hx Transient Ischemic Attacks (TIA): Yes - HEENT Hx HEENT Disorder: Yes Hx Cataracts: Yes (bilateral sx) - Renal Hx Renal Disorder: No - Endocrine/Metabolic Hx Diabetes Mellitus Type 2: Yes - Hematological/Oncological Hx Anemia: Yes (Blood Transfusion) - Integumentary Hx Dermatological Disorder: Yes Other/Comment: abcess - Musculoskeletal/Rheumatological Hx Falls: No - Gastrointestinal Other/Comment: gastroparesis. chronic abdominal pain - Genitourinary/Gynecological Hx Genitourinary Disorders: No - Psychiatric Hx Anxiety: Yes Hx Substance Use: No - Surgical History Hx Cholecystectomy: Yes Hx Musculoskeletal Surgery: Yes (right transmetatarsal amputation) - Anesthesia Hx Anesthesia: Yes Hx Anesthesia Reactions: No Hx Malignant Hyperthermia: No - Suicidal Assessment Feels Threatened In Home Enviroment: No Family/Social History - Physician Review Nursing Documentation Reviewed: Yes Family/Social History: No Known Family HX Smoking Status: Never Smoked Hx Alcohol Use: No Hx Substance Use: No Hx Substance Use Treatment: No Allergies/Home Meds Allergies/Adverse Reactions: Allergies Narcotic/Dilaudid/Morphine Adverse Reaction (Uncoded 04/27/18 02:46) SHORTNESS OF BREATH Home Medications: Home Meds Medication Instructions Recorded Confirmed Dicyclomine [Bentyl] 10 mg PO TID 04/27/18 05/16/18 Gabapentin [Neurontin] 300 mg PO BID 04/27/18 05/16/18 Hydrochlorothiazide [Microzide] 25 mg PO DAILY 04/27/18 05/16/18 Insulin Detemir [Levemir] 10 unit SC HS 04/27/18 05/16/18 Insulin Lispro [humALOG] 4 units SQ ACHS 04/27/18 05/16/18 LORazepam [Ativan] 0.5 mg PO BID 04/27/18 05/16/18 Losartan [Cozaar] 100 mg PO DAILY 04/27/18 05/16/18 Metoclopramide [Reglan] 5 mg PO HS 04/27/18 05/16/18 Ondansetron HCl [Zofran] 4 mg PO Q8 04/27/18 05/16/18 Pantoprazole Sodium [Protonix] 40 mg PO DAILY 04/27/18 05/16/18 Potassium Chloride [K-Dur 20] 20 meq PO DAILY 04/27/18 05/16/18 Venlafaxine [Effexor-XR] 75 mg PO DAILY 04/27/18 05/16/18 cloNIDine 0.1 mg/24 hr [catapres 0.1 mg TD BID 04/27/18 05/16/18 TTS1] fentaNYL 12 mcg/hr [Duragesic 12 mcg ID Q73H 04/27/18 05/16/18 Patch 12 mcg/hr] Review of Systems - Physician Review All systems were reviewed & negative as marked: Yes - Review of Systems Constitutional: Normal. absent: Fatigue, Fevers Eyes: Normal. absent: Vision Changes, Photophobia, Eye Pain, Other ENT: Normal. absent: Hearing Changes, Tinnitus, TMJ Pain, Voice Changes, Sore Throat, Rhinorrhea, Epistaxis, Sinus Congestion, Other Respiratory: Normal. absent: SOB, Cough, Sputum, Wheezing, Other Cardiovascular: Normal. absent: Chest Pain, Palpitations, Edema, Calf Pain, PETERSON, Orthopnea, SY, Syncope, Other Gastrointestinal: Abdominal Pain, Nausea, Vomiting, Food Intolerance. absent: Constipation, Diarrhea Genitourinary Female: Normal. absent: Dysuria, Frequency, Hematuria, Urine Output Changes, Vaginal Bleeding, Vaginal Discharge, Other Musculoskeletal: Normal Skin: Normal. absent: Rash, Cellulitis Neurological: Normal. absent: Headache, Dizziness, Focal Weakness, Gait C hanges, Speech Changes, SC, Facial Droop, DE, Disequilibrium, SE, Seizure, Other Endocrine: Normal Hemo/Lymphatic: Normal Psychiatric: Normal Physical Exam Vital Signs Reviewed: Yes Vital Signs Pulse Resp BP Pulse Ox 05/16/18 17:02 90 189/86 H 05/16/18 15:31 101/40 L 05/16/18 14:41 60 16 195/105 H 97 Temperature: Afebrile Blood Pressure: Hypertensive Pulse: Regular Respiratory Rate: Normal Appearance: Positive for: Well-Appearing, Non-Toxic, Comfortable Pain Distress: None Mental Status: Positive for: Alert and Oriented X 3 Finger Stick Blood Glucose: 202 - Systems Exam Head: Present: Atraumatic, Normocephalic Pupils: Present: PERRL Extroacular Muscles: Present: EOMI Conjunctiva: Present: Normal Mouth: Present: Moist Mucous Membranes Neck: Present: Normal Range of Motion. No: Lymphadenopathy Respiratory/Chest: Present: Clear to Auscultation, Good Air Exchange. No: Respiratory Distress, Accessory Muscle Use Cardiovascular: Present: Regular Rate and Rhythm, Normal S1, S2, Peripheal Pulses Present. No: Murmurs Abdomen: Present: Tenderness (generalized, worst epigastric), Normal Bowel Sounds, Guarding. No: Distention, Peritoneal Signs, Rovsing's Sign Present Back: Present: Normal Inspection. No: CVA Tenderness Upper Extremity: Present: Normal Inspection, Normal ROM, NORMAL PULSES, Neurovascularly Intact, Capillary Refill < 2s. No: Cyanosis, Edema Lower Extremity: Present: Normal Inspection, NORMAL PULSES, Normal ROM, Neurovascularly Intact, Capillary Refill < 2 s. No: Edema Neurological: Present: GCS=15, CN II-XII Intact, Speech Normal, Motor Func Grossly Intact, Normal Sensory Function Skin: Present: Warm, Dry, Normal Color. No: Rashes Lymphatic: No: Cervical Adenopathy Psychiatric: Present: Alert, Oriented x 3, Normal Insight, Normal Concentration, Normal Affect, Normal Mood Medical Decision Making ED Course and Treatment: Initial Plan: * CBC, CMP * Lipase, Amylase * Mg, Phos * Coags * Cardiac Iso * EKG * CXR * CT Abd/Pelvis with IV contrast * IVF * Tylenol * Pepcid * Zofran CXR: no active disease, as read by me 16:45 Diagnostic testing results discussed with Dr. Dent, who evaluated and examined patient in the ED. Recommends 0.2mg Clonidine for HTN. Pending CT results. No further recommendations at this time. CT negative for acute pathology, Dr. Dent made aware. Patient continues to complain of pain and have labile BP, will admit to hospital. 19:00 Dr. Dent accepted patient for inpatient admission to med/surg floor for intractable abdominal pain. Vital signs stable at this time. - Lab Interpretations Lab Results: 05/16/18 15:49 05/16/18 15:49 Lab Results 05/16/18 16:30: Urine Color Straw, Urine Appearance Clear, Urine pH 7.5, Ur Specific [place] 1.020, Urine Protein 100 H, Urine Glucose (UA) 250 H, Urine Ketones Negative, Urine Blood Small H, Urine Nitrate Negative, Urine Bilirubin N egative, Urine Urobilinogen 0.2, Ur Leukocyte Esterase Negative, Urine RBC 5 - 10, Urine WBC 1 - 3, Ur Epithelial Cells 1 - 3 05/16/18 15:49: Sodium 138, Potassium 3.4 L, Chloride 96 L, Carbon Dioxide 36 H, Anion Gap 9 L, BUN 21, Creatinine 1.0, Est GFR ( Amer) > 60, Est GFR (Non-Af Amer) 57, Random Glucose 236 H, Calcium 9.2, Total Bilirubin 0.4, AST 38 H D, ALT 34, Alkaline Phosphatase 135 H D, Lactate Dehydrogenase 876 H, Total Creatine Kinase 128, Troponin I < 0.01 D, Total Protein 6.6, Albumin 3.6, Globulin 3.1, Albumin/Globulin Ratio 1.2, Amylase 78, Lipase 38 05/16/18 15:49: PT 10.6, INR 0.93, APTT 29.7 05/16/18 15:49: WBC 8.3, RBC 4.67, Hgb 11.8 L D, Hct 36.4, MCV 77.9 L, MCH 25.3, MCHC 32.4, RDW 13.8, Plt Count 268, MPV 9.7, Gran % 76.1 H, Lymph % (Auto) 18.8 L, [place] % (Auto) 2.9, Eos % (Auto) 1.7, Baso % (Auto) 0.5, Gran # 6.29, Lymph # (Auto) 1.6, [place] # (Auto) 0.2, Eos # (Auto) 0.1, Baso # (Auto) 0.04 I have reviewed the lab results: Yes - RAD Interpretation Narrative RAD Interpretations (Text): 05/16/18 20:06 FINDINGS: LOWER THORAX: Unremarkable. LIVER: Unremarkable. No gross lesion or ductal dilatation. GALLBLADDER AND BILE DUCTS: Unremarkable. PANCREAS: Unremarkable. No gross lesion or ductal dilatation. SPLEEN: Unremarkable. ADRENALS: Unremarkable. No mass. KIDNEYS AND URETERS: Unremarkable. No hydronephrosis. No solid mass. VASCULATURE: Unremarkable. No aortic aneurysm. No aortic atherosclerotic calcification or mural plaque present. BOWEL: Unremarkable. No obstruction. No gross mural thickening. There is a small ventral hernia containing a segment of bowel. There is no associated obstruction APPENDIX: Normal appendix. PERITONEUM: Unremarkable. No free fluid. No free air. LYMPH NODES: Unremarkable. No enlarged lymph nodes. BLADDER: The bladder is distended and extends above the iliac crests. REPRODUCTIVE: Unremarkable. BONES: No acute fracture. OTHER FINDINGS: None. IMPRESSION: Distended bladder. Small ventral hernia with no obstruction No acute intra-abdominal findings. Radiology Orders: 05/16/18 15:22 CHEST PORTABLE [RAD] Stat 05/16/18 15:54 ABD & PELVIS IV CONTRAST ONLY [CT] Stat Electrician Manager: Radiologist - EKG Interpretation EKG Interpretation (Text): Rate 69; NSR; Normal Intervals; No STEMI, non specific ST changes similar to prior EKG from last admission Interpreted by ED Physician: Yes Type: 12 lead EKG - Medication Orders Current Medication Orders: Clonidine HCl (Catapres Tts1 0.1 Mg/24 Hr) 1 patch TD BID PATTI Dicyclomine HCl (Bentyl) 10 mg PO TID PATTI Fentanyl (Duragesic) 1 patch TD Q72H PATTI Gabapentin (Neurontin) 300 mg PO BID PATTI; Protocol Sodium Chloride (Sodium Chloride 0.45%) 1,000 mls @ 80 mls/hr IV .[id number] PATTI Last Admin: 05/16/18 19:41 Dose: 80 mls/hr eMAR Start Stop Document 05/16/18 19:41 IT (Rec: 05/16/18 19:41 IT [id number]) Intravenous Solution Start Date 05/16/18 Start Time 19:41 Insulin Human Regular (Humulin R High) 0 units SC ACHS [facility]; Protocol Ketorolac Tromethamine (Toradol) 30 mg IVP Q6H PRN PRN Reason: Pain, moderate (4-7) Lorazepam (Ativan) 0.5 mg PO BID [facility]; Protocol Last Admin: 05/16/18 19:41 Dose: 0.5 mg Metoclopramide HCl (Reglan) 10 mg IVP Q6H [facility] Last Admin: 05/16/18 19:41 Dose: 10 mg IVP Administration Document 05/16/18 19:41 IT (Rec: 05/16/18 19:41 IT [id number]) Charges for Administration # of IVP Administrations 1 Ondansetron HCl (Zofran Inj) 4 mg IVP Q4H PRN PRN Reason: Nausea/Vomiting Pantoprazole Sodium (Protonix Inj) 40 mg IVP DAILY [facility] Discontinued Medications Acetaminophen (Tylenol 325mg Tab) 650 mg PO STAT STA Stop: 05/16/18 15:54 Last Admin: 05/16/18 17:04 Dose: 650 mg MAR Pain/Vitals Document 05/16/18 17:04 EB (Rec: 05/16/18 17:04 [facility]-) Pain Reassessment Is This A Pain ReAssessment? No Sleep Is patient sleeping during reassessment? No Presence of Pain Presence of Pain Yes Pain Scale Used Protocol: PSCALES Pain Scale Used Numeric Location Intensity 6 Scale Used Numeric Clonidine HCl (Catapres) 0.2 mg PO STAT STA Stop: 05/16/18 16:45 Last Admin: 05/16/18 17:02 Dose: 0.2 mg MAR Pulse and Blood Pressure Document 05/16/18 17:02 EB (Rec: 05/16/18 17:03 EB [id number] Pulse Pulse Rate (60-90) 90 Blood Pressure Blood Pressure (100/60-150/90) 189/86 Famotidine (Pepcid) 20 mg IVP STAT STA Stop: 05/16/18 15:21 Last Admin: 05/16/18 15:53 Dose: 20 mg IVP Administration Document 05/16/18 15:53 EB (Rec: 05/16/18 15:[address]) Charges for Administration # of IVP Administrations 1 Ondansetron HCl (Zofran Inj) 4 mg IVP STAT STA Stop: 05/16/18 15:21 Last Admin: 05/16/18 15:53 Dose: 4 mg IVP Administration Document 05/16/18 15:53 EB (Rec: 05/16/18 15:[address]) Charges for Administration # of IVP Administrations 1 Potassium Chloride (K-Dur 20 Meq Er Tab) 40 meq PO STAT STA Stop: 05/16/18 16:59 Last Admin: 05/16/18 18:45 Dose: 40 meq Disposition/Present on Arrival - Present on Arrival Any Indicators Present on Arrival: Yes History of DVT/PE: No History of Uncontrolled Diabetes: Yes Urinary Catheter: Yes History of Decub. Ulcer: No History Surgical Site Infection Following: None - Disposition Have Diagnosis and Disposition been Completed?: Yes Diagnosis: Intractable abdominal pain Disposition: HOSPITALIZED Disposition Time: 14:55 Patient Plan: Admission Condition: STABLE
--- NOTE | 2018-05-16 20:34 | HP ---
DATE OF EXAM: 05/16/2018 HISTORY OF PRESENT ILLNESS: We know Ting very well from multiple admissions to the hospital, multiple house calls this afternoon and she was in excruciating pain. Blood sugars are up and down. She had a lot of abdominal pain. She was on nothing when she has had the Duragesic patch on her, plus pain meds, nothing was working. She was nauseous, vomiting, excruciating pain, going to find a decent comfortable position and sent it to the emergency room, she has done this before. She has moved her bowels and she is nauseous. ALLERGIES: SHE IS ALLERGIC TO ALL NARCOTICS, DILAUDID AND MORPHINE. PAST MEDICAL HISTORY: She has a past medical history of gastroparesis, TIA, COPD, hypertension, diabetes, CVA in the past, bilateral cataract surgeries, had transfusions for anemia. She had abscesses, multiple falls, anxiety, depression, panic disorder. She had toes amputated on the right foot, hypertension. FAMILY HISTORY: Diabetes in the family. SOCIAL HISTORY: Nonsmoker. No drinking. No drugs. REVIEW OF SYSTEMS: No acute vision or hearing changes. No shortness of breath. No chest pain, severe abdominal pain, nausea or vomiting. No problems urinating or back pain or neck pain or headache or dizziness. No skin issues. PHYSICAL EXAMINATION: GENERAL: She is very uncomfortable. She is toxic. She is throwing up. Alert and oriented x3. Sugar was 358 with a at home. VITAL SIGNS: Temperature 99, pulse 90, blood pressure 189/86, respiratory rate 16, 97% O2 sat on room air. HEENT: Head is atraumatic, normocephalic. Extraocular muscles are intact. Pupils react to light and accommodation. Throat is dry. NECK: Supple. CARDIOPULMONARY: Regular rate. Normal S1, S2. LUNGS: Decreased breath sounds bilaterally, but clear to auscultation. ABDOMEN: Tender all over place. No guarding. No rebound. No CVA tenderness. EXTREMITIES: No edema. NEUROLOGIC: GCS is 15. Cranial nerves II through XII grossly intact. Alert and oriented x3. SKIN: Fair turgor of the skin. No apparent rashes or ulcers appreciated. LYMPHS: Thyroid midline. No palpable appreciable lymphadenopathy. LABORATORY DATA: Multiple tests are pending. She has a urine which is small blood. Sodium 138, potassium 3.4. I will give her potassium replacement. BUN 29, creatinine GFR is 57, sugar is 236. We will put on insulin coverage. Calcium 9.2, total bili is 0.4, AST is 38, ALT is 34, alk phos 135. Lactate dehydrogenase is 876. Total creatinine kinase 128. Troponin I is less than 0.01. Total protein 6.6, albumin 3.6. Amylase 78, lipase is 38. INR is 0.93. White count 8.3, hemoglobin 11.8, hematocrit 36.4, platelets are 268. She had abdominal CAT scan and pelvis pending. Chest x-ray is pending. EKG is pending. IMPRESSION AND PLAN: She will be admitted with a consult with GI to be on insulin coverage, IV fluids, clonidine, Toradol, Zofran, Protonix, potassium replacement, fentanyl patch, clonidine and she is here for acute abdominal pain, gastroparesis, elevated blood sugar, intractable nausea, vomiting. Josafat Dent DO MTDD
[2018-05-16 20:48] VITALS: RESP 18
[2018-05-17] MEDS: Insulin Reg-HIGH-Coverage SC SCH ×2 (00:21→09:07)
[2018-05-17] MEDS: Sodium Chloride 0.45% 1,000 ML IV SCH (06:56)
[2018-05-17 07:57] LABS: HEMOGLOBIN 9.3 g/dL (12.0-16.0); MEAN CELL VOLUME 78.5 fl (80.0-105.0); MEAN CORPUSCULAR HEMOGLOBIN 24.7 pg (25.0-35.0); MEAN CORPUSCULAR HGB CONC 31.4 g/dl (31.0-37.0); MEAN PLATELET VOLUME 9.5 fl (7.0-11.0); RBC 3.77 10^6/uL (3.5-6.1); RED CELL DISTRIBUTION WIDTH 13.8 % (11.5-14.5); WHITE BLOOD COUNT 6.2 10^3/uL (4.5-11.0)
[2018-05-17 08:17] LABS: ALBUMIN 2.5 g/dL (3.0-4.8); ALT/SGPT 35 U/L (7-56); AST/SGOT 26 U/L (14-36); BLOOD UREA NITROGEN 18 mg/dL (7-21); CALCIUM 8.1 mg/dL (8.4-10.5); GFR NON-AFRICAN AMERICAN > 60
--- NOTE | 2018-05-17 08:48 | RAD ---
Date of service: 05/16/2018 HISTORY: epigastric pain COMPARISON: 05/01/2018 FINDINGS: LUNGS: Linear atelectasis is seen at the left lung base. PLEURA: No significant pleural effusion identified, no pneumothorax apparent. CARDIOVASCULAR: No aortic atherosclerotic calcification present. Normal cardiac size. No pulmonary vascular congestion. OSSEOUS STRUCTURES: No significant abnormalities. VISUALIZED UPPER ABDOMEN: Normal. OTHER FINDINGS: None. IMPRESSION: Linear atelectasis at the left lung base. The lungs are otherwise clear
--- NOTE | 2018-05-17 10:46 | CP.PCM.CON ---
<Yaya Noriega - Last Filed: 05/17/18 10:46> History of Present Illness - History of Present Illness History of Present Illness: PGY6 GI Fellow Consult Note Patient is a 56yo female with PMHx significant for HTN, uncontrolled type 1 DM (A1c 12.9) complicated by retinopathy, polyneuropathy, vasculopathy, gastroparesis, prior TIA, depression/anxiety who presented to the hospital for abdominal pain. Pain was located predominantly in the epigastric area but later generalized to the entire abdomen. Pain began 2 days prior to admission and progressively worsened despite use of her Fentanyl patch and Reglan. The patient is well known to our service and has had numerous admissions for similar complaints over the last year. CT performed in the ED was unremarkable for her given complaints. This morning she is tolerating liquids without nausea/vomiting. Unfortunately, the patient's diabetes remains poorly controlled with very high A1c, worse than previous and she has remained nonadherent to advice to follow up with endocrinology outpatient. 12 system ROS performed and negative except where stated PMHx: See HPI PSHx: Right hemicolectomy with ileocolonic anastamosis for benign tumor (~20 years ago), cholecystectomy, appendectomy, hysterectomy, , hernia repair, right foot transmetatarsal amputation, I&D right thigh abscess FHx: Mother - gastric cancer; Sister - Crohn's disease Social: Denies tobacco, EtOH or illicit drug use Endo: 11/15 - EGD - bile gastritis, gastric polyps Past Patient History - Infectious Disease Hx of Infectious Diseases: None - Tetanus Immunizations Tetanus Immunization: Unknown - Past Social History Smoking Status: Never Smoked - CARDIAC Hx Hypertension: Yes - PULMONARY Hx Chronic Obstructive Pulmonary Disease (COPD): Yes - NEUROLOGICAL Hx Transient Ischemic Attacks (TIA): Yes - HEENT Hx HEENT Problems: Yes Hx Cataracts: Yes (bilateral sx) - RENAL Hx Chronic Kidney Disease: No - ENDOCRINE/METABOLIC Hx Diabetes Mellitus Type 2: Yes - HEMATOLOGICAL/ONCOLOGICAL Hx Anemia: Yes (Blood Transfusion) - INTEGUMENTARY Hx Dermatological Problems: Yes Other/Comment: abcess - MUSCULOSKELETAL/RHEUMATOLOGICAL Hx Falls: Yes - GASTROINTESTINAL Other/Comment: gastroparesis. chronic abdominal pain - GENITOURINARY/GYNECOLOGICAL Hx Genitourinary Disorders: No - PSYCHIATRIC Hx Anxiety: Yes Hx Substance Use: No - SURGICAL HISTORY Hx Cholecystectomy: Yes Hx Musculoskeletal Surgery: Yes (right transmetatarsal amputation) - ANESTHESIA Hx Anesthesia: Yes Hx Anesthesia Reactions: No Hx Malignant Hyperthermia: No Meds Allergies/Adverse Reactions: Allergies Allergy/AdvReac Type Severity Reaction Status Date / Time Narcotic/Dilaudid/Morphine AdvReac SHORTNESS Uncoded 04/27/18 02:46 OF BREATH - Medications Medications: Current Medications Clonidine HCl (Catapres Tts1 0.1 Mg/24 Hr) 1 patch TD BID [facility] Clonidine HCl (Catapres) 0.2 mg PO Q8 PRN PRN Reason: Diastolic blood pressure Last Admin: 05/16/18 21:20 Dose: 0.2 mg Dicyclomine HCl (Bentyl) 10 mg PO TID [facility] Fentanyl (Duragesic) 1 patch TD Q72H [facility] Last Admin: 05/16/18 21:20 Dose: Not Given Gabapentin (Neurontin) 300 mg PO BID [facility]; Protocol Sodium Chloride (Sodium Chloride 0.45%) 1,000 mls @ 80 mls/hr IV .[id number] [facility] Last Admin: 05/17/18 06:56 Dose: 80 mls/hr Potassium Chloride (Potassium Chloride 10 Meq/100 Ml) 10 meq in 100 mls @ 50 mls/hr IVPB Q2H [facility] Stop: 05/17/18 12:59 Insulin Human Regular (Humulin R High) 0 units SC ACHS [facility]; Protocol Last Admin: 05/17/18 09:07 Dose: 4 units Ketorolac Tromethamine (Toradol) 30 mg IVP Q6H PRN PRN Reason: Pain, moderate (4-7) Lorazepam (Ativan) 0.5 mg PO BID [facility]; Protocol Last Admin: 05/16/18 19:41 Dose: 0.5 mg Metoclopramide HCl (Reglan) 10 mg IVP Q6H [facility] Last Admin: 05/17/18 06:56 Dose: 10 mg Ondansetron HCl (Zofran Inj) 4 mg IVP Q4H PRN PRN Reason: Nausea/Vomiting Pantoprazole Sodium (Protonix Inj) 40 mg IVP DAILY [facility] Physical Exam - Constitutional Appears: No Acute Distress, Chronically Ill - Eye Exam Eye Exam: EOMI, PERRL - ENT Exam ENT Exam: Mucous Membranes Moist - Respiratory Exam Respiratory Exam: Clear to Auscultation Bilateral. absent: Rales, Rhonchi, Wheezes - Cardiovascular Exam Cardiovascular Exam: RRR, +S1, +S2 - GI/Abdominal Exam GI & Abdominal Exam: Guarding, Normal Bowel Sounds, Soft, Tenderness (epigastric). absent: Distended, Organomegaly, Rigid - Extremities Exam Extremities exam: Negative for: pedal edema Additional comments: right foot transmetatarsal amputation - Neurological Exam Neurological exam: Alert, Oriented x3 - Psychiatric Exam Psychiatric exam: Anxious, Depressed - Skin Skin Exam: Dry, Warm Results - Vital Signs Recent Vital Signs: Last Vital Signs Temp 98.2 F 05/17/18 06:00 Pulse 61 05/17/18 06:00 Resp 18 05/17/18 06:00 BP 142/81 05/17/18 06:00 Pulse Ox 100 05/17/18 06:00 - Labs Result Diagrams: 05/17/18 07:15 05/17/18 07:15 Labs: Laboratory Results - last 24 hr 05/16/18 05/16/18 05/16/18 15:49 15:49 15:49 WBC 8.3 RBC 4.67 Hgb 11.8 L D Hct 36.4 MCV 77.9 L MCH 25.3 MCHC 32.4 RDW 13.8 Plt Count 268 MPV 9.7 Gran % 76.1 H Lymph % (Auto) 18.8 L [place] % (Auto) 2.9 Eos % (Auto) 1.7 Baso % (Auto) 0.5 Gran # 6.29 Lymph # (Auto) 1.6 [place] # (Auto) 0.2 Eos # (Auto) 0.1 Baso # (Auto) 0.04 PT 10.6 INR 0.93 APTT 29.7 Sodium 138 Potassium 3.4 L Chloride 96 L Carbon Dioxide 36 H Anion Gap 9 L BUN 21 Creatinine 1.0 Est GFR ( Amer) > 60 Est GFR (Non-Af Amer) 57 POC Glucose (mg/dL) Random Glucose 236 H Calcium 9.2 Total Bilirubin 0.4 AST 38 H D ALT 34 Alkaline Phosphatase 135 H D Lactate Dehydrogenase 876 H Total Creatine Kinase 128 Troponin I < 0.01 D Total Protein 6.6 Albumin 3.6 Globulin 3.1 Albumin/Globulin Ratio 1.2 Amylase 78 Lipase 38 Urine Color Urine Appearance Urine pH Ur Specific Lutz Urine Protein Urine Glucose (UA) Urine Ketones Urine Blood Urine Nitrate Urine Bilirubin Urine Urobilinogen Ur Leukocyte Esterase Urine RBC Urine WBC Ur Epithelial Cells 05/16/18 05/17/18 05/17/18 16:30 00:20 07:15 WBC 6.2 D RBC 3.77 Hgb 9.3 L D Hct 29.6 L MCV 78.5 L MCH 24.7 L MCHC 31.4 RDW 13.8 Plt Count 214 MPV 9.5 Gran % Lymph % (Auto) [place] % (Auto) Eos % (Auto) Baso % (Auto) Gran # Lymph # (Auto) [place] # (Auto) Eos # (Auto) Baso # (Auto) PT INR APTT Sodium Potassium Chloride Carbon Dioxide Anion Gap BUN Creatinine Est GFR ( Amer) Est GFR (Non-Af Amer) POC Glucose (mg/dL) 204 H Random Glucose Calcium Total Bilirubin AST ALT Alkaline Phosphatase Lactate Dehydrogenase Total Creatine Kinase Troponin I Total Protein Albumin Globulin Albumin/Globulin Ratio Amylase Lipase Urine Color Straw Urine Appearance Clear Urine pH 7.5 Ur Specific Lutz 1.020 Urine Protein 100 H Urine Glucose (UA) 250 H Urine Ketones Negative Urine Blood Small H Urine Nitrate Negative Urine Bilirubin Negative Urine Urobilinogen 0.2 Ur Leukocyte Esterase Negative Urine RBC 5 - 10 Urine WBC 1 - 3 Ur Epithelial Cells 1 - 3 05/17/18 07:15 WBC RBC Hgb Hct MCV MCH MCHC RDW Plt Count MPV Gran % Lymph % (Auto) [place] % (Auto) Eos % (Auto) Baso % (Auto) Gran # Lymph # (Auto) [place] # (Auto) Eos # (Auto) Baso # (Auto) PT INR APTT Sodium 137 Potassium 3.3 L Chloride 101 Carbon Dioxide 34 H Anion Gap 6 L BUN 18 Creatinine 0.9 Est GFR ( Amer) > 60 Est GFR (Non-Af Amer) > 60 POC Glucose (mg/dL) Random Glucose 210 H Calcium 8.1 L Total Bilirubin 0.2 AST 26 ALT 35 Alkaline Phosphatase 94 Lactate Dehydrogenase Total Creatine Kinase Troponin I Total Protein 4.9 L Albumin 2.5 L Globulin 2.4 Albumin/Globulin Ratio 1.0 L Amylase Lipase Urine Color Urine Appearance Urine pH Ur Specific Lutz Urine Protein Urine Glucose (UA) Urine Ketones Urine Blood Urine Nitrate Urine Bilirubin Urine Urobilinogen Ur Leukocyte Esterase Urine RBC Urine WBC Ur Epithelial Cells Assessment & Plan - Assessment and Plan (Free Text) Assessment: Patient is a 56yo female with PMHx significant for HTN, uncontrolled type 1 DM (A1c 12.9) complicated by retinopathy, polyneuropathy, vasculopathy, gastroparesis, prior TIA, depression/anxiety who presented to the hospital for abdominal pain -Abdominal pain, suspect exacerbation of gastroparesis -Uncontrolled diabetes c/b retinopathy, neuropathy and gastroparesis Plan: -The patient has been poorly compliant with recommendation to control DM and follow up with endocrinology -I would advise against the use of narcotic pain medications, particularly the Fentanyl patch which she has been using at home which will further exacerbate underlying gastroparesis -Reglan PRN - again, educated patient on risks of use, particularly neurologic side effects such as EPS -CT imaging reviewed with radiology - no evidence on imaging for vascular compromise or more rare disorders such as SMA syndrome, MALS or Nutcracker syndrome -Symptom management, slowly advance diet with goal of 6 small meals, low fat/low fiber - Date & Time Date: 05/17/18 Time: 07:45 <Dagoberto Zambrano - Last Filed: 05/17/18 15:41> Meds - Medications Medications: Current Medications Clonidine HCl (Catapres) 0.2 mg PO Q8 PRN PRN Reason: Diastolic blood pressure Last Admin: 05/16/18 21:20 Dose: 0.2 mg Clonidine HCl (Catapres Tts1 0.1 Mg/24 Hr) 1 patch TD Q7D [facility] Last Admin: 05/17/18 12:00 Dose: 1 patch Dicyclomine HCl (Bentyl) 10 mg PO TID [facility] Last Admin: 05/17/18 14:40 Dose: Not Given Fentanyl (Duragesic) 1 patch TD Q72H [facility] Last Admin: 05/16/18 21:20 Dose: Not Given Gabapentin (Neurontin) 300 mg PO BID [facility]; Protocol Last Admin: 05/17/18 11:45 Dose: 300 mg Sodium Chloride (Sodium Chloride 0.45%) 1,000 mls @ 80 mls/hr IV .[id number] [facility] Last Admin: 05/17/18 06:56 Dose: 80 mls/hr Insulin Human Regular (Humulin R High) 0 units SC ACHS [facility]; Protocol Last Admin: 05/17/18 09:07 Dose: 4 units Ketorolac Tromethamine (Toradol) 30 mg IVP Q6H PRN PRN Reason: Pain, moderate (4-7) Lorazepam (Ativan) 0.5 mg PO BID [facility]; Protocol Last Admin: 05/17/18 11:44 Dose: 0.5 mg Metoclopramide HCl (Reglan) 10 mg IVP Q6H [facility] Last Admin: 05/17/18 14:40 Dose: 10 mg Ondansetron HCl (Zofran Inj) 4 mg IVP Q4H PRN PRN Reason: Nausea/Vomiting Pantoprazole Sodium (Protonix Inj) 40 mg IVP DAILY [facility] Last Admin: 05/17/18 11:45 Dose: 40 mg Results - Vital Signs Recent Vital Signs: Last Vital Signs Temp 98.2 F 05/17/18 06:00 Pulse 90 05/17/18 11:50 Resp 18 05/17/18 06:00 BP 142/80 05/17/18 11:50 Pulse Ox 100 05/17/18 06:00 - Labs Result Diagrams: 05/17/18 07:15 05/17/18 07:15 Labs: Laboratory Results - last 24 hr 05/16/18 05/16/18 05/16/18 15:49 15:49 15:49 WBC 8.3 RBC 4.67 Hgb 11.8 L D Hct 36.4 MCV 77.9 L MCH 25.3 MCHC 32.4 RDW 13.8 Plt Count 268 MPV 9.7 Gran % 76.1 H Lymph % (Auto) 18.8 L [place] % (Auto) 2.9 Eos % (Auto) 1.7 Baso % (Auto) 0.5 Gran # 6.29 Lymph # (Auto) 1.6 [place] # (Auto) 0.2 Eos # (Auto) 0.1 Baso # (Auto) 0.04 PT 10.6 INR 0.93 APTT 29.7 Sodium 138 Potassium 3.4 L Chloride 96 L Carbon Dioxide 36 H Anion Gap 9 L BUN 21 Creatinine 1.0 Est GFR ( Amer) > 60 Est GFR (Non-Af Amer) 57 POC Glucose (mg/dL) Random Glucose 236 H Calcium 9.2 Total Bilirubin 0.4 AST 38 H D ALT 34 Alkaline Phosphatase 135 H D Lactate Dehydrogenase 876 H Total Creatine Kinase 128 Troponin I < 0.01 D Total Protein 6.6 Albumin 3.6 Globulin 3.1 Albumin/Globulin Ratio 1.2 Amylase 78 Lipase 38 Urine Color Urine Appearance Urine pH Ur Specific Lutz Urine Protein Urine Glucose (UA) Urine Ketones Urine Blood Urine Nitrate Urine Bilirubin Urine Urobilinogen Ur Leukocyte Esterase Urine RBC Urine WBC Ur Epithelial Cells 05/16/18 05/17/18 05/17/18 16:30 00:20 07:15 WBC 6.2 D RBC 3.77 Hgb 9.3 L D Hct 29.6 L MCV 78.5 L MCH 24.7 L MCHC 31.4 RDW 13.8 Plt Count 214 MPV 9.5 Gran % Lymph % (Auto) [place] % (Auto) Eos % (Auto) Baso % (Auto) Gran # Lymph # (Auto) [place] # (Auto) Eos # (Auto) Baso # (Auto) PT INR APTT Sodium Potassium Chloride Carbon Dioxide Anion Gap BUN Creatinine Est GFR ( Amer) Est GFR (Non-Af Amer) POC Glucose (mg/dL) 204 H Random Glucose Calcium Total Bilirubin AST ALT Alkaline Phosphatase Lactate Dehydrogenase Total Creatine Kinase Troponin I Total Protein Albumin Globulin Albumin/Globulin Ratio Amylase Lipase Urine Color Straw Urine Appearance Clear Urine pH 7.5 Ur Specific Lutz 1.020 Urine Protein 100 H Urine Glucose (UA) 250 H Urine Ketones Negative Urine Blood Small H Urine Nitrate Negative Urine Bilirubin Negative Urine Urobilinogen 0.2 Ur Leukocyte Esterase Negative Urine RBC 5 - 10 Urine WBC 1 - 3 Ur Epithelial Cells 1 - 3 05/17/18 05/17/18 05/17/18 07:15 08:32 11:58 WBC RBC Hgb Hct MCV MCH MCHC RDW Plt Count MPV Gran % Lymph % (Auto) [place] % (Auto) Eos % (Auto) Baso % (Auto) Gran # Lymph # (Auto) [place] # (Auto) Eos # (Auto) Baso # (Auto) PT INR APTT Sodium 137 Potassium 3.3 L Chloride 101 Carbon Dioxide 34 H Anion Gap 6 L BUN 18 Creatinine 0.9 Est GFR ( Amer) > 60 Est GFR (Non-Af Amer) > 60 POC Glucose (mg/dL) 202 H 314 H Random Glucose 210 H Calcium 8.1 L Total Bilirubin 0.2 AST 26 ALT 35 Alkaline Phosphatase 94 Lactate Dehydrogenase Total Creatine Kinase Troponin I Total Protein 4.9 L Albumin 2.5 L Globulin 2.4 Albumin/Globulin Ratio 1.0 L Amylase Lipase Urine Color Urine Appearance Urine pH Ur Specific Lutz Urine Protein Urine Glucose (UA) Urine Ketones Urine Blood Urine Nitrate Urine Bilirubin Urine Urobilinogen Ur Leukocyte Esterase Urine RBC Urine WBC Ur Epithelial Cells Attending/Attestation - Attestation I have fully participated in the care of the patient.: Yes I have reviewed all pertinent clinical information: Yes Notes (Text): 05/17/18 15:39 HTN DM - uncontrolled Depression Abdominal pain, gastroparesis - Advance diet slowly as tolerated - Anti-emetic therapy PRN - Maintain strict glycemic control - Pro-motility therapy as per medical team - Will continue to monitor patient clinical course
--- NOTE | 2018-05-17 11:17 | CARD ---
APPROVED REPORT Date of service: 05/16/2018 EKG Measurement Heart [id number] <Conclusion> Normal sinus rhythm with sinus arrhythmia PRWP NSSTW changes
--- NOTE | 2018-05-17 12:04 | PN ---
DATE: 05/17/2018 SUBJECTIVE: She came in yesterday, in bed, intractable nausea, vomiting with abdominal pain and gastroparesis type picture. She has that before. She is doing better this morning. I plan on increasing her diet to clear soup breakfast and regular for lunch. If she can do well, I would possibly discharge her this afternoon if she is doing well after lunch. MEDICATIONS: She is currently on IV fluids, Ativan, Bentyl, Catapres, clonidine, fentanyl patch, insulin coverage, Neurontin, she is getting potassium replacement, Protonix, Reglan, Toradol, and Zofran. PHYSICAL EXAMINATION: VITAL SIGNS: She has 98.3 temperature, 64 pulse, 174/82 blood pressure which is better, 18 respiratory rate, and 100% on O2 sat room air. GENERAL: She is not in any pain at this time. She is alert and comfortable. HEAD: Atraumatic and normocephalic. HEART: Regular rate. LUNGS: Decreased breath sounds, but clear. ABDOMEN: Soft. Positive bowel sounds. No guarding. Better this morning than yesterday. EXTREMITIES: No edema. LABORATORY DATA: She has a white count of 6.2, hemoglobin 9.3, hematocrit 29.6, platelets are 214. Sodium 137, potassium 2.3, I gave her 2 K Riders. BUN 18, creatinine 0.9, GFR is greater than 60, sugar is 210, calcium is 8.1. AST is 26, ALT is 35, alkaline phosphatase 94, total bilirubin is 4.9. ASSESSMENT AND PLAN: I plan her for clear soup breakfast, regular for lunch. If she does well, I am hoping we can discharge her later this afternoon. She is still on observation level of care. She has a small ventral hernia with no obstruction. No acute abdominal findings on CAT scan. She is supposed to be seen by GI, waiting for their opinion. Josafat Detn DO MTDD
[2018-05-17 16:01] VITALS: BP 158/94; PULSE 98; TEMP 98.3; O2SAT 97
== END 2018-05-17 20:57 | disposition home or self-care (01) ==
LOC: ED 14:26 → ERH 19:04 → 5RNO 22:38
PROVIDERS: ADMIT Family Medicine; ATTEND Family Medicine
DX: E10.43 Type 1 diabetes mellitus with diabetic autonomic (poly)neuropathy (principal); K31.84 Gastroparesis; E10.319 Type 1 diabetes mellitus with unspecified diabetic retinopathy without macular edema; E10.65 Type 1 diabetes mellitus with hyperglycemia; F32.89 Other specified depressive episodes; F41.0 Panic disorder [episodic paroxysmal anxiety]; I10 Essential (primary) hypertension; J44.9 Chronic obstructive pulmonary disease, unspecified; K29.70 Gastritis, unspecified, without bleeding; K43.9 Ventral hernia without obstruction or gangrene; Z79.4 Long term (current) use of insulin; Z80.0 Family history of malignant neoplasm of digestive organs; Z83.3 Family history of diabetes mellitus; Z86.73 Personal history of transient ischemic attack (TIA), and cerebral infarction without residual deficits; Z90.49 Acquired absence of other specified parts of digestive tract; Z90.710 Acquired absence of both cervix and uterus; Z98.42 Cataract extraction status, left eye; Z98.41 Cataract extraction status, right eye; D64.9 Anemia, unspecified; F41.9 Anxiety disorder, unspecified
CPT/HCPCS: 36415; 71045; 74177; 80053; 81001; 82150; 82550; 82948; 83615; 83690; 84484; 85025; 85027; 85610; 85730; 87324; 93005; 96374; 96375; 96376; 99284; C9113; G0378; J2405; J2765; J3480; J7030; Q9967

== ENCOUNTER 2018-05-19 09:33 | Inpatient (IN) | payer BC, MEDICARE ==
[2018-05-19 10:26] LABS: BASO # 0.01 K/mm3 (0.0-2.0); BASO % 0.1 % (0.0-3.0); EOS # 0.3 (0.0-0.7); EOS % 3.8 % (1.5-5.0); GRAN # 6.51 (1.4-6.5); GRAN % 77.3 % (50.0-68.0); HEMOGLOBIN 10.6 g/dL (12.0-16.0); LYMPH # 1.3 (1.2-3.4); LYMPH % 15.4 % (22.0-35.0); MEAN CELL VOLUME 76.6 fl (80.0-105.0); MEAN CORPUSCULAR HEMOGLOBIN 25.1 pg (25.0-35.0); MEAN CORPUSCULAR HGB CONC 32.7 g/dl (31.0-37.0); MEAN PLATELET VOLUME 9.9 fl (7.0-11.0); MONO # 0.3 (0.1-0.6); MONO % 3.4 % (1.0-6.0); RBC 4.23 10^6/uL (3.5-6.1); RED CELL DISTRIBUTION WIDTH 13.8 % (11.5-14.5); WHITE BLOOD COUNT 8.4 10^3/uL (4.5-11.0)
[2018-05-19] MEDS ORDERED: Insulin Regular 1 UNITS/0.01 ML ML IVP STA ×2 (10:33→10:46)
--- NOTE | 2018-05-19 10:51 | ED PDOC ---
Arrival/HPI - General Chief Complaint: Seizure Time Seen by Provider: 05/19/18 09:45 Historian: Patient - History of Present Illness Narrative History of Present Illness (Text): 05/19/18 11:22 57yo female with past medical history of TIA, GERD. Gastoparesis, hypertension, Diabetes, depression, anxiety, seizure bib EMS for alleged seizure at home. The daughter by the bedside states she was called by her aunt who was with the patient because patient was looking spaced out and when she went to see the patient she was having a tonic-clonic seizure. states she then appeared confused and was foaming in the mouth. The daughter states she is not on any seizure medication. States she was cleared by Neuro after a normal EEG test years ago. Daughter is not sure if she had urinary incontinent, states patient wears diaper. No tongue biting. Otherwise patient was just discharged form the hospital on Wednesday. Denies any other complaint. Past Medical History - Provider Review Nursing Documentation Reviewed: Yes - Past History Past History: No Previous - Infectious Disease Hx of Infectious Diseases: None - Tetanus Immunization Tetanus Immunization: Unknown - Reproductive Menopause: Yes - Cardiac Hx Hypertension: Yes - Pulmonary Hx Chronic Obstructive Pulmonary Disease (COPD): Yes - Neurological Hx Transient Ischemic Attacks (TIA): Yes - HEENT Hx HEENT Disorder: Yes Hx Cataracts: Yes (bilateral sx) - Renal Hx Renal Disorder: No - Endocrine/Metabolic Hx Diabetes Mellitus Type 2: Yes - Hematological/Oncological Hx Anemia: Yes (Blood Transfusion) - Integumentary Hx Dermatological Disorder: Yes Other/Comment: abcess - Musculoskeletal/Rheumatological Hx Falls: Yes - Gastrointestinal Other/Comment: gastroparesis. chronic abdominal pain - Genitourinary/Gynecological Hx Genitourinary Disorders: No - Psychiatric Hx Anxiety: Yes Hx Substance Use: No - Surgical History Hx Cholecystectomy: Yes Hx Musculoskeletal Surgery: Yes (right transmetatarsal amputation) - Anesthesia Hx Anesthesia: Yes Hx Anesthesia Reactions: No Hx Malignant Hyperthermia: No - Suicidal Assessment Feels Threatened In Home Enviroment: No Family/Social History - Physician Review Nursing Documentation Reviewed: Yes Family/Social History: Unknown Family HX Smoking Status: Never Smoked Hx Alcohol Use: No Hx Substance Use: No Hx Substance Use Treatment: No Allergies/Home Meds Allergies/Adverse Reactions: Allergies Narcotic/Dilaudid/Morphine Adverse Reaction (Uncoded 05/19/18 09:50) SHORTNESS OF BREATH Home Medications: Home Meds Medication Instructions Recorded Confirmed RX: Dicyclomine [Bentyl] 10 mg PO TID 04/27/18 05/19/18 RX: Gabapentin [Neurontin] 300 mg PO BID 04/27/18 05/19/18 RX: Hydrochlorothiazide [Microzide] 25 mg PO DAILY 04/27/18 05/19/18 RX: Insulin Detemir [Levemir] 10 unit SC HS 04/27/18 05/19/18 RX: Insulin Lispro [humALOG] 4 units SQ ACHS 04/27/18 05/19/18 RX: LORazepam [Ativan] 0.5 mg PO BID 04/27/18 05/19/18 RX: Losartan [Cozaar] 100 mg PO DAILY 04/27/18 05/19/18 RX: Metoclopramide [Reglan] 5 mg PO HS 04/27/18 05/19/18 RX: Ondansetron HCl [Zofran] 4 mg PO Q8 04/27/18 05/19/18 RX: Pantoprazole Sodium [Protonix] 40 mg PO DAILY 04/27/18 05/19/18 RX: Potassium Chloride [K-Dur 20 20 meq PO DAILY 04/27/18 05/19/18 mEq ER Tab] RX: Venlafaxine [Effexor XR] 75 mg PO DAILY 04/27/18 05/19/18 RX: cloNIDine 0.1 mg/24 hr 0.1 mg TD BID 04/27/18 05/19/18 [catapres TTS1 0.1 mg/24 hr] RX: fentaNYL 12 mcg/hr [Duragesic 12 mcg ID Q73H 04/27/18 05/19/18 Patch 12 mcg/hr] Review of Systems - Physician Review All systems were reviewed & negative as marked: Yes - Review of Systems Constitutional: Normal Eyes: Normal ENT: Normal Respiratory: Normal Cardiovascular: Normal Gastrointestinal: Normal Genitourinary Female: Normal Musculoskeletal: Normal Skin: Normal Neurological: Seizure Endocrine: Normal Hemo/Lymphatic: Normal Psychiatric: Normal Physical Exam Vital Signs Reviewed: Yes Vital Signs Temp Pulse Resp BP Pulse Ox 05/19/18 09:45 97.7 F 70 18 195/107 H 93 L Temperature: Afebrile Blood Pressure: Hypertensive Pulse: Regular Respiratory Rate: Normal Appearance: Positive for: Well-Appearing, Non-Toxic, Comfortable, Other (Appears anxious/teary) Pain Distress: None Mental Status: Positive for: Alert and Oriented X 3 Finger Stick Blood Glucose: 392 - Systems Exam Head: Present: Atraumatic, Normocephalic Pupils: Present: PERRL Extroacular Muscles: Present: EOMI Conjunctiva: Present: Normal Mouth: Present: Moist Mucous Membranes Neck: Present: Normal Range of Motion Respiratory/Chest: Present: Clear to Auscultation, Good Air Exchange. No: Respiratory Distress, Accessory Muscle Use Cardiovascular: Present: Regular Rate and Rhythm, Normal S1, S2. No: Murmurs Abdomen: No: Tenderness, Distention, Peritoneal Signs Back: Present: Normal Inspection Upper Extremity: Present: Normal Inspection. No: Cyanosis, Edema Lower Extremity: Present: Normal Inspection, Other (Right foot amputation noted). No: Edema Neurological: Present: GCS=15, CN II-XII Intact, Speech Normal, Motor Func Grossly Intact Skin: Present: Warm, Dry, Normal Color. No: Rashes Psychiatric: Present: Alert, Oriented x 3, Normal Insight, Normal Concentration Medical Decision Making ED Course and Treatment: 05/19/18 19:44 57yo female bib EMS for seizure. Pt was teary on arrival and was seen as soon as she arrived. Labs blood culture Head CT Chest xray I L NS Pt had a witnessed seizure while in emergency department and was given Ativan Lab was reviewed and unremarkable EKG sinus tachy @ 107bpm. N-stemi Head CT IMPRESSION: No acute findings Chest xray IMPRESSION: No active disease. Pt with status seizure was admitted for seizure Loading dose of Keppra ordered PT's BP also improved with medication. the daughter states she did not take her antihypertensive medication today. Case was DW Dr. Dent and he accepted pt to his service and also saw pt by the bedside. He requested Juan Manuel Heaton and Cam consult. - Lab Interpretations Lab Results: 05/19/18 10:18 Lab Results 05/19/18 10:18: Alcohol, Quantitative < 10 05/19/18 10:18: WBC 8.4 D, RBC 4.23, Hgb 10.6 L, Hct 32.4 L, MCV 76.6 L, MCH 25.1, MCHC 32.7, RDW 13.8, Plt Count 216, MPV 9.9, Gran % 77.3 H, Lymph % (Auto) 15.4 L, [place] % (Auto) 3.4, Eos % (Auto) 3.8, Baso % (Auto) 0.1, Gran # 6.51 H, Lymph # (Auto) 1.3, [place] # (Auto) 0.3, Eos # (Auto) 0.3, Baso # (Auto) 0.01 05/19/18 09:39: POC Glucose (mg/dL) 401 H* - RAD Interpretation Radiology Orders: 05/19/18 10:33 HEAD W/O CONTRAST [CT] Stat 05/19/18 10:35 CHEST PORTABLE [RAD] Stat - Medication Orders Current Medication Orders: Insulin Human Regular (Humulin R) 6 units IVP ONCE STA Stop: 05/19/18 10:47 Discontinued Medications Lorazepam (Ativan) 2 mg IVP ONCE ONE; Protocol Stop: 05/19/18 10:13 Last Admin: 05/19/18 10:14 Dose: 2 mg IVP Administration Document 05/19/18 10:14 EQ (Rec: 05/19/18 10:14 EQ [facility] [id number]) Charges for Administration # of IVP Administrations 1 Disposition/Present on Arrival - Present on Arrival Any Indicators Present on Arrival: No History of DVT/PE: No History of Uncontrolled Diabetes: Yes Urinary Catheter: No History of Decub. Ulcer: No History Surgical Site Infection Following: None - Disposition Have Diagnosis and Disposition been Completed?: Yes Diagnosis: Hyperglycemia, Seizure, Hypertension Disposition: HOSPITALIZED Disposition Time: 10:50 Patient Plan: Admission Patient Problems: Current Active Problems Problem Status Onset Anxiety Acute Hyperglycemia Acute Condition: FAIR
[2018-05-19 11:04] LABS: ALB/GLOB RATIO 1.1 (1.1-1.8); ALBUMIN 3.2 g/dL (3.0-4.8); CALCIUM 8.3 mg/dL (8.4-10.5)
[2018-05-19] MEDS ORDERED: Sodium Chloride 0.9% 1,000 ML IV STA (11:05)
--- NOTE | 2018-05-19 11:36 | CT ---
Date of service: 05/19/2018 PROCEDURE: CT HEAD WITHOUT CONTRAST. HISTORY: s/p seizure COMPARISON: 04/27/2018 TECHNIQUE: Axial computed tomography images were obtained through the head/brain without intravenous contrast. Radiation dose: Total exam DLP = 961.23 mGy-cm. This CT exam was performed using one or more of the following dose reduction techniques: Automated exposure control, adjustment of the mA and/or kV according to patient size, and/or use of iterative reconstruction technique. FINDINGS: HEMORRHAGE: No intracranial hemorrhage. BRAIN: No mass effect or edema. No atrophy or chronic microvascular ischemic changes. VENTRICLES: Unremarkable. No hydrocephalus. CALVARIUM: Unremarkable. PARANASAL SINUSES: Unremarkable as visualized. No significant inflammatory changes. MASTOID AIR CELLS: Unremarkable as visualized. No inflammatory changes. OTHER FINDINGS: None. IMPRESSION: No acute findings
--- NOTE | 2018-05-19 12:02 | RAD ---
Date of service: 05/19/2018 HISTORY: admission COMPARISON: 05/16/2018 FINDINGS: LUNGS: No active pulmonary disease. PLEURA: No significant pleural effusion identified, no pneumothorax apparent. CARDIOVASCULAR: No aortic atherosclerotic calcification present. Normal cardiac size. No pulmonary vascular congestion. OSSEOUS STRUCTURES: No significant abnormalities. VISUALIZED UPPER ABDOMEN: Normal. OTHER FINDINGS: None. IMPRESSION: No active disease.
--- NOTE | 2018-05-19 14:54 | CARD ---
APPROVED REPORT Date of service: 05/19/2018 EKG Measurement Heart [id number] <Conclusion> Sinus tachycardia T wave abnormality, consider inferolateral ischemia Prolonged QTc
[2018-05-19] MEDS ORDERED: Sodium Chloride 0.45% 1,000 ML IV SCH (15:55)
--- NOTE | 2018-05-19 16:49 | CON ---
DATE: 05/19/2018 CHIEF COMPLAINT: Seizure. HISTORY OF PRESENT ILLNESS: This is an 57-year-old woman, who is known to us in the past with past medical history of long standing type 2 diabetes mellitus, noncompliant with insulin and medications, history of gastroparesis, COPD, TIA, history of acid base balance disturbances and metabolic acidosis in her past, although history of community-acquired pneumonia and to hypoperfusion to the brain in the past, who came in because she had a length of seizure at home, apparently the daughter by bedside said she was called by her aunt who was with the patient and the patient looks faced down. When she went to see the patient who was having a generalized tonic-clonic seizure with the confuse and foaming of the mouth. The daughter states that she is not on any seizure medication and she is cleared by Neuro many years ago after normal EEG. It was unclear if she had any urinary incontinence. It was noticed in her labs, she has hyperglycemia above 300 and metabolic derangement. In addition, her CAT scan of the head showed no acute intracranial abnormality. MRI of the brain has been ordered. PAST MEDICAL HISTORY: As above. ALLERGIES: DILAUDID AND MORPHINE. REVIEW OF SYSTEMS: A 12-point review of systems is negative except as per HPI. SOCIAL HISTORY: No illicit drug use, smoking, or EtOH abuse. MEDICATIONS: Reviewed by nurses' reconciliation. FAMILY HISTORY: Noncontributory. CURRENT LABORATORY DATA: Sodium of 131, potassium 3.8, chloride 96, carbon dioxide 9, BUN of 24, creatinine 1.4, random glucose of 463. PHYSICAL EXAMINATION: GENERAL: The patient is seen up in bed. No acute distress. VITAL SIGNS: Temperature 97.7, pulse rate is 70, blood pressure of 195/107, respiratory rate 18, oxygen saturation 97% on room air. HEENT: Atraumatic and normocephalic. PERRLA. Extraocular muscles are intact. NECK: Supple. No JVD. No adenopathy noted. LUNGS: Clear to auscultation. No adventitious sounds. HEART: S1 and S2. Normal rate and rhythm. No murmurs, rubs, or gallops. ABDOMEN: Soft, nontender, and nondistended. Bowel sounds are present. EXTREMITIES: No clubbing. No cyanosis. Peripheral pulses 2+ felt bilaterally. NEUROLOGIC: The patient is alert and oriented to person, place, and year, lethargic. Recall after five minutes is 0/3. Poor attention span, slow thought process. Cranial nerves II through XII are intact. Motor exam: Normal tone moves all extremities equally. No pronator drift seen. Sensory: Decreased light touch and pinprick up to the calves bilaterally. Decreased vibration of the toes. DTRs are 2+ throughout and 1 at both knees and ankles. Coordination: [id number] is intact. No dysmetria noted. Gait is deferred for now. ASSESSMENT AND PLAN: This is a 57-year-old woman with history of long standing type 2 diabetes mellitus, insulin dependent, noncompliant with medications, history of gastroparesis, chronic obstructive pulmonary disease, transient ischemic attacks, metabolic derangements in the past, history of transient cerebral hypoperfusion in the past and community acquired pneumonia who presents with generalized length of seizure at home, generalized tonic-clonic type which seems most likely a metabolic hyperglycemia and metabolic derangements. CAT scan of the head showed no intracranial abnormality at this time. RECOMMENDATIONS: 1. MRI of the brain to assess for any structural abnormalities causing new onset breakthrough seizure. 2. Continue with gabapentin, which is works antiepileptic effect of 300 mg p.o. twice a day since she takes at home for neuropathic relief. 3. Monitor electrolytes and correct accordingly. 4. We will get an EEG at this time, she is clinically stable. We will continue to monitor. Antiepileptics need to be placed. Jose Knight MD
--- NOTE | 2018-05-19 19:54 | HP ---
DATE OF EXAM: 05/19/2018 HISTORY OF PRESENT ILLNESS: I know Ting very well from multiple admissions to the hospital for gastroparesis. At this time, she comes in because she was looking spaced out, it is possible that she had a tonic-clonic seizure. She was confused, foaming at the mouth. She was cleared by neuro after normal EEG years ago and she is here in the emergency room. PAST MEDICAL HISTORY: She has a past medical history of TIA, GERD, gastroparesis, hypertension, diabetes, depression, anxiety, seizures, COPD, TIA, bilateral cataracts, diabetes, and blood transfusions for anemia. She had abscesses, gastroparesis, chronic abdominal pain, intractable nausea, vomiting, anxiety, and cholecystectomy. History of right transmetatarsal amputation. FAMILY HISTORY: Unknown family history. SOCIAL HISTORY: Never smoked. No alcohol. No drugs. ALLERGIES: NARCOTICS, DILAUDID, AND MORPHINE. She get short of breath. MEDICATIONS: She is on Bentyl, Neurontin, Microzide, Levemir, Humalog, Ativan, Cozaar, Reglan, Zofran, Protonix, potassium, Effexor, Catapres patch, and Duragesic patch. REVIEW OF SYSTEMS: No acute vision or hearing changes. No shortness of breath. No chest pain. No nausea, vomiting, constipation, or diarrhea right now. No back pains. No skin issues as possible. She had a seizure and she is postictal. She is normally anxious. PHYSICAL EXAMINATION: VITAL SIGNS: She has a 97.7 temperature, 70 pulse, 18 respiratory rate, 195/107 blood pressure, we put her back on a blood pressure pills from a Cardiology, and 92% O2 sat and we will make sure she has had some oxygen. GENERAL: She is alert and oriented x3 when she was in the ER with a blood sugar of 392. She has been given Ativan a few times. She is little bit lethargic. HEENT: Head: Atraumatic and normocephalic. Extraocular muscles are intact. Pupils react to light and accommodation. Throat is moist. NECK: Supple. HEART: Regular rate. Normal S1 and S2. LUNGS: Decreased breath sounds, but clear to auscultation. ABDOMEN: Soft and nontender. Positive bowel sounds. No guarding, rebound or CVA tenderness. EXTREMITIES: Right foot got a transmetatarsal surgery. No edema. GCS is 15 in the ER. Cranial nerves II through XII grossly intact right now. She is difficult to arouse secondary to IV Ativan. SKIN: Warm and dry. NEUROLOGIC: Alert and oriented 4 right now, cannot arouse her. LABORATORY DATA: White count 8.4, hemoglobin 10.6, hematocrit 32.4 with 216 platelets. She has 131 sodium, potassium 3.8, BUN 24, creatinine 1.4, GFR is 39, sugar is 362 now, calcium is 8.3, magnesium 1.5, and total bili is 0.2. AST is 26, ALT 32, alk phos 140, total creatinine kinase is 205, total protein 6.1, albumin is 3.2, and globulin 2.9. Alcohol level less than 10. CAT scan that was okay. Chest x-ray was okay. EKG is okay. ASSESSMENT AND PLAN: She was already seen by the neurologist who ordered an MRI of her head and put her back on her medications. She was given 10 mg of Apresoline, we gave her 2 mg Ativan IV that is probably why she is so out of it right now. She will be on Catapres 0.2 patch, Cozaar, Duragesic patch, Effexor, insulin coverage, Neurontin, Reglan, and Rocephin. We will check her labs tomorrow. She did have a 103.5 temperature, 219/105 blood pressure, we have to get the blood pressure down and order another Apresoline 10 mg IV. Multiple consults were called and we will follow. Ting [place] with a possible seizure with diabetes, possible systemic inflammatory response syndrome. Josafat Dent DO [id number]
[2018-05-19] MEDS ORDERED: levETIRAcetam 1000mg/100ml NS 100 ML IV ONE (19:56)
[2018-05-19] MEDS ORDERED: Magnesium Sulfate 1 gm in D5W 1 GM/100 ML BAG IVPB ONE (20:56)
[2018-05-19] MEDS ORDERED: Insulin Reg-HIGH-Coverage SC SCH (22:00)
[2018-05-19] MEDS ORDERED: Insulin Detemir 100 units/ml Vial (Levemir) SC SCH (22:00)
[2018-05-19 22:19] LABS: ARTERIAL BLOOD GAS HCO3 24.6 mmol/L (21-28); ARTERIAL BLOOD GAS O2 SAT 96.8 % (95-98); ARTERIAL BLOOD GAS PCO2 33 mm/Hg (35-45); ARTERIAL BLOOD GAS PH 7.48 (7.35-7.45); ARTERIAL BLOOD GAS TCO2 25.6 mmol.L (22-28)
[2018-05-19 23:20] VITALS: BMI 23.3
[2018-05-19] MEDS ORDERED: Pneumococcal 23-Valent Vaccine IM ONE (23:21)
--- NOTE | 2018-05-19 23:38 | CP.PCM.CON ---
<Chapo Roman - Last Filed: 05/20/18 05:39> History of Present Illness - History of Present Illness History of Present Illness: ICU consult note Dr iLndo 57 year old female with PMH of HTN, uncontrolled DM2 complicated by retinopathy/gastroparesis, MDD, LAUREN, and TIA/CVA presents to the EDwith witnessed seizure episode at home. Patient is not responsive and no family at bedside. As per charting, patient was looking spaced out and was having a tonic-clonic seizure with foaming in the mouth but no tongue bitting. She is not on any seizure medication. States she was cleared by Neuro after a normal EEG test years ago. Patient just dischrged from [facility] few days ago. 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 (~20 years ago), cholecystectomy, appendectomy, hysterectomy, , hernia repair, right foot transmetatarsal amputation, I&D right thigh abscess All: Narcotics Meds: as per EMR FamHx: Mother - gastric cancer; Sister - Crohn's disease SocHx: Denies tobacco, EtOH or illicit drug use Past Patient History - Infectious Disease Hx of Infectious Diseases: None - Tetanus Immunizations Tetanus Immunization: Unknown - Past Social History Smoking Status: Never Smoked - CARDIAC Hx Cardiac Disorders: Yes Hx Hypercholesterolemia: Yes Hx Hypertension: Yes Hx Peripheral Vascular Disease: Yes - PULMONARY Hx Respiratory Disorders: Yes Hx Chronic Obstructive Pulmonary Disease (COPD): Yes - NEUROLOGICAL Hx Neurological Disorder: Yes (syncope) HX Cerebrovascular Accident: Yes Hx Seizures: Yes Hx Transient Ischemic Attacks (TIA): Yes Other/Comment: diabetic neuropathy - HEENT Hx HEENT Problems: Yes Hx Cataracts: Yes (bilateral sx) - RENAL Hx Chronic Kidney Disease: No - ENDOCRINE/METABOLIC Hx Endocrine Disorders: Yes Hx Diabetes Mellitus Type 2: Yes - HEMATOLOGICAL/ONCOLOGICAL Hx Blood Disorders: Yes Hx Anemia: Yes (Blood Transfusion) Other/Comment: hypokalemia - INTEGUMENTARY Hx Dermatological Problems: Yes Other/Comment: abcess, r ft great toe crooked long toenails dry skin, multiple skin discoloratins r hand, redness to elbows, multiple small skin discolorations ble, fading bruises both knees - MUSCULOSKELETAL/RHEUMATOLOGICAL Hx Falls: Yes - GASTROINTESTINAL Hx Gastrointestinal Disorders: Yes Hx Gastroesophageal Reflux: Yes Other/Comment: gastroparesis, ibs. chronic abdominal pain - GENITOURINARY/GYNECOLOGICAL Hx Genitourinary Disorders: Yes Hx Incontinence: Yes - PSYCHIATRIC Hx Substance Use: No - SURGICAL HISTORY Hx Surgeries: Yes Hx Appendectomy: Yes Hx Cholecystectomy: Yes Hx Hysterectomy: Yes Hx Musculoskeletal Surgery: Yes (right transmetatarsal amputation) - ANESTHESIA Hx Anesthesia: Yes Hx Anesthesia Reactions: No Hx Malignant Hyperthermia: No Meds Allergies/Adverse Reactions: Allergies Allergy/AdvReac Type Severity Reaction Status Date / Time vancomycin AdvReac Intermediate RASH Verified 05/20/18 19:35 Narcotic/Dilaudid/Morphine AdvReac Intermediate SHORTNESS Uncoded 05/20/18 19:35 OF BREATH - Medications Medications: Current Medications Clonidine HCl (Catapres-Tts2 0.2 Mg/24 Hr) 1 patch TD Q7D@1600 [facility] Last Admin: 05/19/18 16:08 Dose: 1 patch Dicyclomine HCl (Bentyl) 10 mg PO TID [facility] Last Admin: 05/19/18 18:17 Dose: Not Given Fentanyl (Duragesic) 1 patch TD Q72H [facility] Last Admin: 05/19/18 19:09 Dose: Not Given Gabapentin (Neurontin) 300 mg PO BID [facility]; Protocol Last Admin: 05/19/18 18:18 Dose: Not Given Hydralazine HCl (Apresoline) 10 mg IVP STAT [facility] Last Admin: 05/19/18 18:53 Dose: 10 mg Sodium Chloride (Sodium Chloride 0.45%) 1,000 mls @ 60 mls/hr IV .[id number] [facility] Last Admin: 05/19/18 16:07 Dose: 60 mls/hr Ceftriaxone Sodium (Rocephin 1 Gram Ivpb) 1 gm in 100 mls @ 100 mls/hr IVPB DAILY [facility]; Protocol Insulin Detemir (Levemir) 10 unit SC HS [facility] Insulin Human Regular (Humulin R High) 0 units SC ACHS [facility]; Protocol Losartan Potassium (Cozaar) 100 mg PO DAILY [facility] Metoclopramide HCl (Reglan) 5 mg PO HS [facility] Ondansetron HCl (Zofran Tab) 4 mg PO Q8 [facility] Pantoprazole Sodium (Protonix Ec Tab) 40 mg PO DAILY [facility] Venlafaxine HCl (Effexor Xr) 75 mg PO DAILY [facility] Physical Exam - Constitutional Appears: Chronically Ill Additional comments: altered - Head Exam Head Exam: ATRAUMATIC, NORMAL INSPECTION, NORMOCEPHALIC - Eye Exam Eye Exam: EOMI, Normal appearance, PERRL Pupil Exam: NORMAL ACCOMODATION, PERRL - ENT Exam ENT Exam: Mucous Membranes Dry - Neck Exam Neck exam: Positive for: Normal Inspection - Respiratory Exam Respiratory Exam: Decreased Breath Sounds, Rhonchi, Wheezes - Cardiovascular Exam Cardiovascular Exam: Tachycardia, +S1, +S2 - GI/Abdominal Exam GI & Abdominal Exam: Diminished Bowel Sounds, Soft. absent: Mass, Organomegaly - Extremities Exam Extremities exam: Positive for: normal capillary refill, pedal pulses present - Neurological Exam Neurological exam: Altered - Skin Skin Exam: Dry, Intact Results - Vital Signs Recent Vital Signs: Last Vital Signs Temp 102.0 F H 05/19/18 19:00 Pulse 113 H 05/19/18 22:55 Resp 24 05/19/18 22:55 BP 167/81 H 05/19/18 19:50 Pulse Ox 93 L 05/19/18 19:50 - Labs Result Diagrams: 05/19/18 10:18 05/19/18 10:18 Labs: Laboratory Results - last 24 hr 05/19/18 05/19/18 05/19/18 09:39 10:18 10:18 WBC 8.4 D RBC 4.23 Hgb 10.6 L Hct 32.4 L MCV 76.6 L MCH 25.1 MCHC 32.7 RDW 13.8 Plt Count 216 MPV 9.9 Gran % 77.3 H Lymph % (Auto) 15.4 L [place] % (Auto) 3.4 Eos % (Auto) 3.8 Baso % (Auto) 0.1 Gran # 6.51 H Lymph # (Auto) 1.3 [place] # (Auto) 0.3 Eos # (Auto) 0.3 Baso # (Auto) 0.01 pCO2 pO2 HCO3 ABG pH ABG Total CO2 ABG O2 Saturation ABG Base Excess ABG Potassium Glucose Lactate FiO2 Sodium 131 L Potassium 3.8 Chloride 96 L Carbon Dioxide 30 Anion Gap 9 L BUN 24 H Creatinine 1.4 H Est GFR ( Amer) 47 Est GFR (Non-Af Amer) 39 POC Glucose (mg/dL) 401 H* Random Glucose 463 H* D Calcium 8.3 L Magnesium 1.5 L Total Bilirubin 0.2 AST 26 ALT 32 Alkaline Phosphatase 140 H D Total Creatine Kinase 205 Total Protein 6.1 Albumin 3.2 Globulin 2.9 Albumin/Globulin Ratio 1.1 Arterial Blood Potassium Alcohol, Quantitative 05/19/18 05/19/18 05/19/18 10:18 15:42 22:00 WBC RBC Hgb Hct MCV MCH MCHC RDW Plt Count MPV Gran % Lymph % (Auto) [place] % (Auto) Eos % (Auto) Baso % (Auto) Gran # Lymph # (Auto) [place] # (Auto) Eos # (Auto) Baso # (Auto) pCO2 33 L pO2 85.0 HCO3 24.6 ABG pH 7.48 H ABG Total CO2 25.6 ABG O2 Saturation 96.8 ABG Base Excess 1.6 ABG Potassium 3.0 L Glucose 460 H* D Lactate 1.2 FiO2 100.0 Sodium 134.0 Potassium Chloride 98.0 Carbon Dioxide Anion Gap BUN Creatinine Est GFR ( Amer) Est GFR (Non-Af Amer) POC Glucose (mg/dL) 362 H Random Glucose Calcium Magnesium Total Bilirubin AST ALT Alkaline Phosphatase Total Creatine Kinase Total Protein Albumin Globulin Albumin/Globulin Ratio Arterial Blood Potassium 3.0 L Alcohol, Quantitative < 10 Assessment & Plan - Assessment and Plan (Free Text) Assessment: 57 year old female with PMH of HTN, uncontrolled DM2 complicated by ret inopathy/gastroparesis, MDD, LAUREN, and TIA/CVA admitted to ICU for seizure, intubated/sedated due to inability to protect airway and aspiration Plan: Seizure: -Loading dose of Keppra and Ativan given -Head CT: No acute findings -f/u cultures blood, urine, sputum -video EEG -Neorology consulted, Dr. Knight Hyperglycemia: -6 units of insulin given -Hg A1C ordered -endo consulted Dr Coe Hypertension: -EKG sinus tachy @ 107bpm. N-stemi -CXR: No active disease. -clonidine -h/o gastroparesis -GI consulted, Dr Zambrano Prophylaxis: -GI ppx: protonix 40 -DVT ppx: SCD NPO Case reviewed and discussed with attending Dr Lindo <Shady Lindo - Last Filed: 05/21/18 03:17> Meds - Medications Medications: Current Medications Clonidine HCl (Catapres-Tts2 0.2 Mg/24 Hr) 1 patch TD Q7D@1600 [facility] Last Admin: 05/19/18 16:08 Dose: 1 patch Dicyclomine HCl (Bentyl) 10 mg PO TID [facility] Last Admin: 05/20/18 19:15 Dose: Not Given Fentanyl (Duragesic) 1 patch TD Q72H [facility] Last Admin: 05/19/18 19:09 Dose: Not Given Gabapentin (Neurontin) 300 mg PO BID [facility]; Protocol Last Admin: 05/20/18 18:56 Dose: Not Given Piperacillin Sod/Tazobactam Sod (Zosyn 3.375 In Ns 100ml) 100 mls @ 25 mls/hr IVPB Q8 [facility]; Protocol Stop: 05/27/18 07:01 Last Admin: 05/20/18 21:30 Dose: 25 mls/hr Midazolam 100 mg/100ml in NS (Midazolam 100 Mg/100ml In Ns) 100 mg in 100 mls @ 7 mls/hr IV .[id number] PRN; Protocol PRN Reason: Seizure activity Last Admin: 05/20/18 22:58 Dose: 7 mg/hr, 7 mls/hr Sodium Chloride (Sodium Chloride 0.9%) 1,000 mls @ 100 mls/hr IV .Q10H [facility] Last Admin: 05/20/18 23:57 Dose: 100 mls/hr Propofol (Diprivan) 1,000 mg in 100 mls @ 1.796 mls/hr IV .Q24H [facility]; Protocol PRN Reason: TITRATE PER MD ORDER Last Admin: 05/20/18 22:38 Dose: 5 mcg/kg/min, 1.796 mls/hr Insulin Detemir (Levemir) 14 unit SC [facility] Last Admin: 05/20/18 22:52 Dose: 14 unit Insulin Human Lispro (Humalog Low) 0 units SC [facility]; Protocol Last Admin: 05/20/18 22:48 Dose: Not Given Levalbuterol HCl (Xopenex) 1.25 mg IH [id number] [facility] Last Admin: 05/21/18 01:44 Dose: 1.25 mg Metoclopramide HCl (Reglan) 5 mg PO HS [facility] Last Admin: 05/19/18 23:41 Dose: Not Given Ondansetron HCl (Zofran Tab) 4 mg PO Q8 [facility] Last Admin: 05/20/18 18:27 Dose: Not Given Pantoprazole Sodium (Protonix Inj) 40 mg IVP DAILY [facility] Venlafaxine HCl (Effexor Xr) 75 mg PO DAILY [facility] Last Admin: 05/20/18 10:15 Dose: Not Given Results - Vital Signs Recent Vital Signs: Last Vital Signs Temp 102.7 F H 05/20/18 04:20 Pulse 88 05/20/18 04:20 Resp 29 H 05/20/18 04:05 BP 140/68 05/20/18 04:00 Pulse Ox 98 05/20/18 04:20 - Labs Result Diagrams: 05/20/18 07:40 05/20/18 21:50 Labs: Laboratory Results - last 24 hr 05/20/18 05/20/18 05/20/18 02:12 07:30 07:40 WBC 3.9 L D RBC 4.02 Hgb 10.2 L Hct 30.4 L MCV 75.6 L MCH 25.4 MCHC 33.6 RDW 13.9 Plt Count 208 MPV 10.2 pCO2 pO2 HCO3 ABG pH ABG Total CO2 ABG O2 Saturation ABG O2 Content ABG Base Excess ABG Hemoglobin ABG Carboxyhemoglobin POC ABG HHb (Measured) ABG Methemoglobin ABG O2 Capacity Hgb O2 Saturation FiO2 Sodium Potassium Chloride Carbon Dioxide Anion Gap BUN Creatinine Est GFR ( Amer) Est GFR (Non-Af Amer) POC Glucose (mg/dL) Random Glucose Hemoglobin A1c Calcium Phosphorus Magnesium Total Bilirubin AST ALT Alkaline Phosphatase Total Protein Albumin Globulin Albumin/Globulin Ratio Procalcitonin TSH 3rd Generation Cortisol AM Sample Urine Opiates Screen Negative Ur Phencyclidine Scrn Negative Ur Amphetamines Screen Negative U Benzodiazepines Scrn Positive H U Oth Cocaine Metabols Negative U Cannabinoids Screen Negative Influenza Typ A,B (EIA) Negative for flu a/b 05/20/18 05/20/18 05/20/18 07:40 07:40 07:40 WBC RBC Hgb Hct MCV MCH MCHC RDW Plt Count MPV pCO2 pO2 HCO3 ABG pH ABG Total CO2 ABG O2 Saturation ABG O2 Content ABG Base Excess ABG Hemoglobin ABG Carboxyhemoglobin POC ABG HHb (Measured) ABG Methemoglobin ABG O2 Capacity Hgb O2 Saturation FiO2 Sodium 132 Potassium 2.8 L* D Chloride 99 Carbon Dioxide 23 Anion Gap 13 BUN 33 H Creatinine 1.8 H Est GFR ( Amer) 35 Est GFR (Non-Af Amer) 29 POC Glucose (mg/dL) Random Glucose 317 H* D Hemoglobin A1c 11.0 H Calcium 8.2 L Phosphorus 4.5 Magnesium 1.8 Total Bilirubin 0.5 AST 33 ALT 24 Alkaline Phosphatase 111 Total Protein 5.1 L Albumin 2.6 L Globulin 2.5 Albumin/Globulin Ratio 1.0 L Procalcitonin TSH 3rd Generation Cortisol AM Sample 43.5 H Urine Opiates Screen Ur Phencyclidine Scrn Ur Amphetamines Screen U Benzodiazepines Scrn U Oth Cocaine Metabols U Cannabinoids Screen Influenza Typ A,B (EIA) 05/20/18 05/20/18 05/20/18 07:40 07:40 07:55 WBC RBC Hgb Hct MCV MCH MCHC RDW Plt Count MPV pCO2 31 L pO2 167.0 H HCO3 21.1 ABG pH 7.44 ABG Total CO2 22.1 ABG O2 Saturation 97.5 ABG O2 Content 14.4 L ABG Base Excess -2.4 L ABG Hemoglobin 10.3 L ABG Carboxyhemoglobin 0.1 L POC ABG HHb (Measured) 2.5 ABG Methemoglobin 0.2 ABG O2 Capacity 14.8 L Hgb O2 Saturation 97.2 FiO2 100.0 Sodium Potassium Chloride Carbon Dioxide Anion Gap BUN Creatinine Est GFR ( Amer) Est GFR (Non-Af Amer) POC Glucose (mg/dL) Random Glucose Hemoglobin A1c Calcium Phosphorus Magnesium Total Bilirubin AST ALT Alkaline Phosphatase Total Protein Albumin Globulin Albumin/Globulin Ratio Procalcitonin 25.35 H TSH 3rd Generation 0.94 Cortisol AM Sample Urine Opiates Screen Ur Phencyclidine Scrn Ur Amphetamines Screen U Benzodiazepines Scrn U Oth Cocaine Metabols U Cannabinoids Screen Influenza Typ A,B (EIA) 05/20/18 05/20/18 05/20/18 08:30 16:13 17:30 WBC RBC Hgb Hct MCV MCH MCHC RDW Plt Count MPV pCO2 pO2 HCO3 ABG pH ABG Total CO2 ABG O2 Saturation ABG O2 Content ABG Base Excess ABG Hemoglobin ABG Carboxyhemoglobin POC ABG HHb (Measured) ABG Methemoglobin ABG O2 Capacity Hgb O2 Saturation FiO2 Sodium 131 L Potassium 3.1 L Chloride 101 Carbon Dioxide 24 Anion Gap 10 BUN 38 H Creatinine 1.6 H Est GFR ( Amer) 40 Est GFR (Non-Af Amer) 33 POC Glucose (mg/dL) 299 H 203 H Random Glucose 200 H Hemoglobin A1c Calcium 7.5 L Phosphorus Magnesium Total Bilirubin AST ALT Alkaline Phosphatase Total Protein Albumin Globulin Albumin/Globulin Ratio Procalcitonin TSH 3rd Generation Cortisol AM Sample Urine Opiates Screen Ur Phencyclidine Scrn Ur Amphetamines Screen U Benzodiazepines Scrn U Oth Cocaine Metabols U Cannabinoids Screen Influenza Typ A,B (EIA) 05/20/18 05/20/18 21:50 22:10 WBC RBC Hgb Hct MCV MCH MCHC RDW Plt Count MPV pCO2 pO2 HCO3 ABG pH ABG Total CO2 ABG O2 Saturation ABG O2 Content ABG Base Excess ABG Hemoglobin ABG Carboxyhemoglobin POC ABG HHb (Measured) ABG Methemoglobin ABG O2 Capacity Hgb O2 Saturation FiO2 Sodium 131 L Potassium 3.2 L Chloride 101 Carbon Dioxide 23 Anion Gap 10 BUN 38 H Creatinine 1.7 H Est GFR ( Amer) 37 Est GFR (Non-Af Amer) 31 POC Glucose (mg/dL) 263 H Random Glucose 229 H Hemoglobin A1c Calcium 7.3 L Phosphorus Magnesium Total Bilirubin AST ALT Alkaline Phosphatase Total Protein Albumin Globulin Albumin/Globulin Ratio Procalcitonin TSH 3rd Generation Cortisol AM Sample Urine Opiates Screen Ur Phencyclidine Scrn Ur Amphetamines Screen U Benzodiazepines Scrn U Oth Cocaine Metabols U Cannabinoids Screen Influenza Typ A,B (EIA) Attending/Attestation - Attestation I have personally seen and examined this patient.: Yes I have fully participated in the care of the patient.: Yes I have reviewed all pertinent clinical information: Yes Notes (Text): 05/21/18 03:15 Agree with resident physician's note. This 57 year old woman comes after having a seizure at home.-Tonic clonic as per daughter. Confused. Fomaming in mouth. Not sure of incontinence, wears diaper. Anemia-10.6/32.4 Hyponatremia-131 Renal insufficiency-24/1.4 Hyperglycemia-463-->362. Elevatged AP4-140. Hypomganesemia-1.5 Hypocalcemia-8.3. Sinus tachycardia. Prolonged QTc.-469. CXR-N NAD. Has PMH: TIA GERD Gastroparesis DM II COPD HTN DEPRESSION ANXIETY Seizures. Anemia. B/L cataract. Blood transfusion. S/P right transmetatarsal amputation. Cholecystectomy. Allergy:Dilaudid,morphine, narcotics. I was seeing other patient in CODE room in ER and I got a call from ER that patient was desaturating. As per nurse Nydia, she had vomited,aspirated , herpulse ox was in the 70's. Patient has been not responding. It was decied to intubate her prophylactically although her last blood was good. Size 7.5 ETT inserted.Patient was given 10 mg of Etamidate amidate and 100 mg of Succinyl choline IV prior to intubation.Position of tube was confirmed by direct visualization ,auscultation, CXR and CO2 detector. A nasogastric tube was also inserted , confirmed position of tip of NGT to be in fundus of stomach by auscultation. CCT spent 30 minutes.
[2018-05-20] MEDS ORDERED: Midazolam 2 MG/2 ML VIAL ONE (00:19)
[2018-05-20] MEDS ORDERED: Succinylcholine 200 mg/10 ml Inj IV ONE (00:21)
[2018-05-20] MEDS ORDERED: Etomidate 20 mg/10ml Inj IV ONE (00:21)
[2018-05-20] MEDS ORDERED: levETIRAcetam 1000mg/100ml NS 100 ML IV ONE (00:30)
[2018-05-20] MEDS ORDERED: Piperacillin/Tazobact 2.25gm 2.25 GM/100 ML BAG IVPB STA (00:31)
[2018-05-20] MEDS ORDERED: Vancomycin 1gm in NS 250ml 1 GM/250 ML BAG IVPB SCH (00:45)
[2018-05-20 01:15] LABS: ARTERIAL BLOOD GAS HCO3 22.2 mmol/L (21-28); ARTERIAL BLOOD GAS HEMOGLOBIN 10.4 g/dL (11.7-17.4); ARTERIAL BLOOD GAS O2 CAPACITY 14.6 mL/dl (16-24); ARTERIAL BLOOD GAS O2 CONTENT 14.1 ML/dl (15-23); ARTERIAL BLOOD GAS O2 SAT 96.3 % (95-98); ARTERIAL BLOOD GAS PCO2 32 mm/Hg (35-45); ARTERIAL BLOOD GAS PH 7.45 (7.35-7.45); ARTERIAL BLOOD GAS TCO2 23.2 mmol.L (22-28)
[2018-05-20 02:24] LABS: URINE BILIRUBIN NEGATIVE (NEGATIVE); URINE BLOOD SMALL (NEGATIVE); URINE GLUCOSE (UA) >=1000 mg/dL (NEGATIVE); URINE LEUKOCYTE ESTERASE NEGATIVE Leu/uL (NEGATIVE); URINE PROTEIN >=300 mg/dL (<30 mg/dL); URINE UROBILINOGEN 0.2 E.U./dL (<1 E.U./dL)
[2018-05-20 02:28] LABS: URINE APPEARANCE CLEAR (CLEAR); URINE COLOR YELLOW (YELLOW)
[2018-05-20 02:45] LABS: BARBITURATES, UR NEGATIVE (NEGATIVE)
[2018-05-20 02:49] LABS: URINE AMORPHOUS SEDIMENT FEW /hpf; URINE BACTERIA OCC /hpf; URINE EPITHELIAL CELLS 0 - 2 /hpf (0-5); URINE WBC 0 - 2 /hpf (0-6)
[2018-05-20] MEDS ORDERED: Insulin Lispro 1 UNITS/0.01 ML SC ONE (03:18)
[2018-05-20 03:32] LABS: BENZODIAZEPINES, UR POSITIVE (NEGATIVE); OPIATES, UR NEGATIVE (NEGATIVE); PHENCYCLIDINE, UR NEGATIVE (NEGATIVE)
--- NOTE | 2018-05-20 07:22 | CP.PCM.CON ---
<Yaya Noriega - Last Filed: 05/20/18 10:52> History of Present Illness - History of Present Illness History of Present Illness: PGY6 GI Fellow Consult Note Patient is a 57yo highly noncompliant female with PMHx significant for HTN, uncontrolled type 1 DM (A1c 12.9) complicated by retinopathy, polyneuropathy, vasculopathy, gastroparesis, prior TIA, depression/anxiety who presented to the hospital for seizure-like activity. At this time, patient is intubated, not responsive despite the fact that she is not currently sedated. According to the prior record, patient was witnessed at home to have started staring off, becoming less responsive and having tonic-clonic activity followed by confusion, thus she was brought to the ED. In the ED, patient was found to have hyperglycemia with blood sugar at 463. CT head was negative. During MRI brain, patient aspirated and was intubated, brought back to the ICU. At this time, she is not sedated but does not respond to verbal or tactile stimuli. The patient was discharged earlier this week when she was admitted for generalized abdominal pain. Pain is chronic in nature and was suspected to be related to gastroparesis and poorly controlled diabetes mellitus. 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 (~20 years ago), cholecystectomy, appendectomy, hysterectomy, , hernia repair, right foot transmetatarsal amputation, I&D right thigh abscess FHx: Mother - gastric cancer; Sister - Crohn's disease Social: Denies tobacco, EtOH or illicit drug use Endo: 11/15 - EGD - bile gastritis, gastric polyps Past Patient History - Infectious Disease Hx of Infectious Diseases: None - Tetanus Immunizations Tetanus Immunization: Unknown - Past Social History Smoking Status: Never Smoked - CARDIAC Hx Cardiac Disorders: Yes Hx Hypercholesterolemia: Yes Hx Hypertension: Yes Hx Peripheral Vascular Disease: Yes - PULMONARY Hx Respiratory Disorders: Yes Hx Chronic Obstructive Pulmonary Disease (COPD): Yes - NEUROLOGICAL Hx Neurological Disorder: Yes (syncope) HX Cerebrovascular Accident: Yes Hx Seizures: Yes Hx Transient Ischemic Attacks (TIA): Yes Other/Comment: diabetic neuropathy - HEENT Hx HEENT Problems: Yes Hx Cataracts: Yes (bilateral sx) - RENAL Hx Chronic Kidney Disease: No - ENDOCRINE/METABOLIC Hx Endocrine Disorders: Yes Hx Diabetes Mellitus Type 2: Yes - HEMATOLOGICAL/ONCOLOGICAL Hx Blood Disorders: Yes Hx Anemia: Yes (Blood Transfusion) Other/Comment: hypokalemia - INTEGUMENTARY Hx Dermatological Problems: Yes Other/Comment: abcess, r ft great toe crooked long toenails dry skin, multiple skin discoloratins r hand, redness to elbows, multiple small skin discolorations ble, fading bruises both knees - MUSCULOSKELETAL/RHEUMATOLOGICAL Hx Falls: Yes - GASTROINTESTINAL Hx Gastrointestinal Disorders: Yes Hx Gastroesophageal Reflux: Yes Other/Comment: gastroparesis, ibs. chronic abdominal pain - GENITOURINARY/GYNECOLOGICAL Hx Genitourinary Disorders: Yes Hx Incontinence: Yes - PSYCHIATRIC Hx Substance Use: No - SURGICAL HISTORY Hx Surgeries: Yes Hx Appendectomy: Yes Hx Cholecystectomy: Yes Hx Hysterectomy: Yes Hx Musculoskeletal Surgery: Yes (right transmetatarsal amputation) - ANESTHESIA Hx Anesthesia: Yes Hx Anesthesia Reactions: No Hx Malignant Hyperthermia: No Meds Allergies/Adverse Reactions: Allergies Allergy/AdvReac Type Severity Reaction Status Date / Time Narcotic/Dilaudid/Morphine AdvReac SHORTNESS Uncoded 05/19/18 09:50 OF BREATH - Medications Medications: Current Medications Clonidine HCl (Catapres-Tts2 0.2 Mg/24 Hr) 1 patch TD Q7D@1600 [facility] Last Admin: 05/19/18 16:08 Dose: 1 patch Dicyclomine HCl (Bentyl) 10 mg PO TID [facility] Last Admin: 05/19/18 18:17 Dose: Not Given Fentanyl (Duragesic) 1 patch TD Q72H [facility] Last Admin: 05/19/18 19:09 Dose: Not Given Gabapentin (Neurontin) 300 mg PO BID [facility]; Protocol Last Admin: 05/19/18 18:18 Dose: Not Given Sodium Chloride (Sodium Chloride 0.45%) 1,000 mls @ 60 mls/hr IV .[id number] [facility] Last Admin: 05/19/18 16:07 Dose: 60 mls/hr Ceftriaxone Sodium (Rocephin 1 Gram Ivpb) 1 gm in 100 mls @ 100 mls/hr IVPB DAILY [facility]; Protocol Vancomycin HCl 1.5 gm/ Sodium (Chloride) 500 mls @ 167 mls/hr IVPB ONCE ONE; Protocol Stop: 05/20/18 10:29 Piperacillin Sod/Tazobactam Sod (Zosyn 3.375 In Ns 100ml) 100 mls @ 25 mls/hr IVPB Q8 [facility]; Protocol Stop: 05/27/18 07:01 Insulin Detemir (Levemir) 10 unit SC HS [facility] Last Admin: 05/20/18 03:37 Dose: Not Given Insulin Human Lispro (Humalog Low) 0 units SC ACHS [facility]; Protocol Losartan Potassium (Cozaar) 100 mg PO DAILY [facility] Metoclopramide HCl (Reglan) 5 mg PO HS [facility] Last Admin: 05/19/18 23:41 Dose: Not Given Ondansetron HCl (Zofran Tab) 4 mg PO Q8 [facility] Last Admin: 05/19/18 23:41 Dose: Not Given Pantoprazole Sodium (Protonix Inj) 40 mg IVP Q12 [facility] Last Admin: 05/20/18 00:50 Dose: 40 mg Venlafaxine HCl (Effexor Xr) 75 mg PO DAILY [facility] Physical Exam - Constitutional Appears: Chronically Ill Additional comments: intubated, not responsive to verbal/tactile stimuli - Eye Exam Eye Exam: Nystagmus (horizontal). absent: PERRL Pupil Exam: Fixed (left) - ENT Exam ENT Exam: Mucous Membranes Moist Additional comments: ET tube in place - Respiratory Exam Respiratory Exam: Clear to Auscultation Bilateral. absent: Rales, Rhonchi, Wheezes - Cardiovascular Exam Cardiovascular Exam: RRR, +S1, +S2 - GI/Abdominal Exam GI & Abdominal Exam: Normal Bowel Sounds, Soft, Tenderness. absent: Distended, Firm, Organomegaly, Rigid - Extremities Exam Additional comments: right foot transmetatarsal amputation - Neurological Exam Additional comments: Unresponsive - Psychiatric Exam Additional comments: unable to assess - Skin Skin Exam: Dry, Warm Results - Vital Signs Recent Vital Signs: Last Vital Signs Temp 102.7 F H 05/20/18 04:20 Pulse 88 05/20/18 04:20 Resp 29 H 05/20/18 04:05 BP 140/68 05/20/18 04:00 Pulse Ox 98 05/20/18 04:20 - Labs Result Diagrams: 05/20/18 07:40 05/20/18 07:40 Labs: Laboratory Results - last 24 hr 05/19/18 05/19/18 05/19/18 09:39 10:18 10:18 WBC 8.4 D RBC 4.23 Hgb 10.6 L Hct 32.4 L MCV 76.6 L MCH 25.1 MCHC 32.7 RDW 13.8 Plt Count 216 MPV 9.9 Gran % 77.3 H Lymph % (Auto) 15.4 L Hyde % (Auto) 3.4 Eos % (Auto) 3.8 Baso % (Auto) 0.1 Gran # 6.51 H Lymph # (Auto) 1.3 Hyde # (Auto) 0.3 Eos # (Auto) 0.3 Baso # (Auto) 0.01 pCO2 pO2 HCO3 ABG pH ABG Total CO2 ABG O2 Saturation ABG O2 Content ABG Base Excess ABG Hemoglobin ABG Carboxyhemoglobin POC ABG HHb (Measured) ABG Methemoglobin ABG O2 Capacity ABG Potassium Hgb O2 Saturation Glucose Lactate FiO2 Sodium 131 L Potassium 3.8 Chloride 96 L Carbon Dioxide 30 Anion Gap 9 L BUN 24 H Creatinine 1.4 H Est GFR ( Amer) 47 Est GFR (Non-Af Amer) 39 POC Glucose (mg/dL) 401 H* Random Glucose 463 H* D Calcium 8.3 L Magnesium 1.5 L Total Bilirubin 0.2 AST 26 ALT 32 Alkaline Phosphatase 140 H D Total Creatine Kinase 205 Total Protein 6.1 Albumin 3.2 Globulin 2.9 Albumin/Globulin Ratio 1.1 Arterial Blood Potassium Urine Color Urine Appearance Urine pH Ur Specific [place] Urine Protein Urine Glucose (UA) Urine Ketones Urine Blood Urine Nitrate Urine Bilirubin Urine Urobilinogen Ur Leukocyte Esterase Urine RBC Urine WBC Ur Epithelial Cells Amorphous Sediment Urine Bacteria Urine Opiates Screen Urine Methadone Screen Ur Barbiturates Screen Ur Phencyclidine Scrn Ur Amphetamines Screen U Benzodiazepines Scrn U Oth Cocaine Metabols U Cannabinoids Screen Alcohol, Quantitative 05/19/18 05/19/18 05/19/18 10:18 15:42 22:00 WBC RBC Hgb Hct MCV MCH MCHC RDW Plt Count MPV Gran % Lymph % (Auto) Hyde % (Auto) Eos % (Auto) Baso % (Auto) Gran # Lymph # (Auto) Hyde # (Auto) Eos # (Auto) Baso # (Auto) pCO2 33 L pO2 85.0 HCO3 24.6 ABG pH 7.48 H ABG Total CO2 25.6 ABG O2 Saturation 96.8 ABG O2 Content ABG Base Excess 1.6 ABG Hemoglobin ABG Carboxyhemoglobin POC ABG HHb (Measured) ABG Methemoglobin ABG O2 Capacity ABG Potassium 3.0 L Hgb O2 Saturation Glucose 460 H* D Lactate 1.2 FiO2 100.0 Sodium 134.0 Potassium Chloride 98.0 Carbon Dioxide Anion Gap BUN Creatinine Est GFR ( Amer) Est GFR (Non-Af Amer) POC Glucose (mg/dL) 362 H Random Glucose Calcium Magnesium Total Bilirubin AST ALT Alkaline Phosphatase Total Creatine Kinase Total Protein Albumin Globulin Albumin/Globulin Ratio Arterial Blood Potassium 3.0 L Urine Color Urine Appearance Urine pH Ur Specific [place] Urine Protein Urine Glucose (UA) Urine Ketones Urine Blood Urine Nitrate Urine Bilirubin Urine Urobilinogen Ur Leukocyte Esterase Urine RBC Urine WBC Ur Epithelial Cells Amorphous Sediment Urine Bacteria Urine Opiates Screen Urine Methadone Screen Ur Barbiturates Screen Ur Phencyclidine Scrn Ur Amphetamines Screen U Benzodiazepines Scrn U Oth Cocaine Metabols U Cannabinoids Screen Alcohol, Quantitative < 10 05/20/18 05/20/18 05/20/18 01:00 02:12 02:12 WBC RBC Hgb Hct MCV MCH MCHC RDW Plt Count MPV Gran % Lymph % (Auto) Hyde % (Auto) Eos % (Auto) Baso % (Auto) Gran # Lymph # (Auto) Hyde # (Auto) Eos # (Auto) Baso # (Auto) pCO2 32 L pO2 85.0 HCO3 22.2 ABG pH 7.45 ABG Total CO2 23.2 ABG O2 Saturation 96.3 ABG O2 Content 14.1 L ABG Base Excess -1.3 ABG Hemoglobin 10.4 L ABG Carboxyhemoglobin 0.3 L POC ABG HHb (Measured) 3.7 ABG Methemoglobin 0.5 ABG O2 Capacity 14.6 L ABG Potassium Hgb O2 Saturation 95.4 Glucose Lactate FiO2 100.0 Sodium Potassium Chloride Carbon Dioxide Anion Gap BUN Creatinine Est GFR ( Amer) Est GFR (Non-Af Amer) POC Glucose (mg/dL) Random Glucose Calcium Magnesium Total Bilirubin AST ALT Alkaline Phosphatase Total Creatine Kinase Total Protein Albumin Globulin Albumin/Globulin Ratio Arterial Blood Potassium Urine Color Yellow Urine Appearance Clear Urine pH 7.0 Ur Specific [place] 1.025 Urine Protein >=300 H Urine Glucose (UA) >=1000 Urine Ketones Negative Urine Blood Small H Urine Nitrate Negative Urine Bilirubin Negative Urine Urobilinogen 0.2 Ur Leukocyte Esterase Negative Urine RBC 1 - 3 H Urine WBC 0 - 2 Ur Epithelial Cells 0 - 2 Amorphous Sediment Few Urine Bacteria Occ Urine Opiates Screen Negative Urine Methadone Screen Negative Ur Barbiturates Screen Negative Ur Phencyclidine Scrn Negative Ur Amphetamines Screen Negative U Benzodiazepines Scrn Positive H U Oth Cocaine Metabols Negative U Cannabinoids Screen Negative Alcohol, Quantitative Assessment & Plan - Assessment and Plan (Free Text) Assessment: Patient is a 57yo highly noncompliant female with PMHx significant for HTN, uncontrolled type 1 DM (A1c 12.9) complicated by retinopathy, polyneuropathy, vasculopathy, gastroparesis, prior TIA, depression/anxiety who presented to the hospital for seizure-like activity -Seizure-like activity, R/O status epilepticus -Aspiration and acute respiratory failure requiring intubation -Acute encephalopathy - rule out metabolic vs toxic -Sepsis -Uncontrolled diabetes mellitus -Diabetic gastroparesis -Chronic abdominal pain -Depression/anxiety -Medical noncompliance Plan: -Patient unresponsive in absence of sedation at this time, on mechanical ventilation with horizontal nystagmus - consider status epilepticus but defer to neurology -Neurologic work up in progress -ICU level care -Broad spectrum antibiotics initiated for sepsis, Tmax 103, cultures pending -As patient has history of diabetic gastroparesis, care should be taken with t ube feeding if initiated to avoid aspiration -CT performed earlier this week; at that time imaging was reviewed with radiology and there is no evidence on imaging for acute pathology or evidence of vascular compromise, more rare disorders such as SMA syndrome, MALS or Nutcracker syndrome -No plan for endoscopic evaluation at this time - Date & Time Date: 05/20/18 Time: 07:24 <Dagoberto Zambrano - Last Filed: 05/20/18 11:01> Meds - Medications Medications: Current Medications Clonidine HCl (Catapres-Tts2 0.2 Mg/24 Hr) 1 patch TD Q7D@1600 [facility] Last Admin: 05/19/18 16:08 Dose: 1 patch Dicyclomine HCl (Bentyl) 10 mg PO TID [facility] Last Admin: 05/19/18 18:17 Dose: Not Given Fentanyl (Duragesic) 1 patch TD Q72H [facility] Last Admin: 05/19/18 19:09 Dose: Not Given Gabapentin (Neurontin) 300 mg PO BID [facility]; Protocol Last Admin: 05/19/18 18:18 Dose: Not Given Ceftriaxone Sodium (Rocephin 1 Gram Ivpb) 1 gm in 100 mls @ 100 mls/hr IVPB DAILY [facility]; Protocol Piperacillin Sod/Tazobactam Sod (Zosyn 3.375 In Ns 100ml) 100 mls @ 25 mls/hr IVPB Q8 [facility]; Protocol Stop: 05/27/18 07:01 Last Admin: 05/20/18 07:27 Dose: 25 mls/hr Midazolam 100 mg/100ml in NS (Midazolam 100 Mg/100ml In Ns) 100 mg in 100 mls @ 7 mls/hr IV .[id number] [facility]; Protocol PRN Reason: Seizure activity Last Admin: 05/20/18 09:12 Dose: 7 mg/hr, 7 mls/hr Potassium Chloride (Potassium Chloride 20 Meq/100 Ml) 20 meq in 100 mls @ 50 mls/hr IVPB Q2H [facility] Stop: 05/20/18 14:29 Sodium Chloride (Sodium Chloride 0.9%) 1,000 mls @ 100 mls/hr IV .Q10H [facility] Potassium Chloride (Potassium Chloride 20 Meq/100 Ml) 20 meq in 100 mls @ 50 mls/hr IVPB ONCE ONE Stop: 05/20/18 12:42 Propofol (Diprivan) 1,000 mg in 100 mls @ 1.796 mls/hr IV .Q24H [facility]; Protocol PRN Reason: TITRATE PER MD ORDER Magnesium Sulfate/Dextrose (Magnesium Sulfate 1 Gm/100 Ml D5w) 1 gm in 100 mls @ 100 mls/hr IVPB ONCE ONE Stop: 05/20/18 11:45 Insulin Detemir (Levemir) 10 unit SC HS [facility] Last Admin: 05/20/18 03:37 Dose: Not Given Insulin Human Lispro (Humalog Low) 0 units SC ACHS [facility]; Protocol Last Admin: 05/20/18 09:08 Dose: 3 u Levalbuterol HCl (Xopenex) 1.25 mg IH [id number] [facility] Last Admin: 05/20/18 08:08 Dose: 1.25 mg Metoclopramide HCl (Reglan) 5 mg PO HS [facility] Last Admin: 05/19/18 23:41 Dose: Not Given Ondansetron HCl (Zofran Tab) 4 mg PO Q8 [facility] Last Admin: 05/19/18 23:41 Dose: Not Given Pantoprazole Sodium (Protonix Inj) 40 mg IVP DAILY [facility] Venlafaxine HCl (Effexor Xr) 75 mg PO DAILY [facility] Results - Vital Signs Recent Vital Signs: Last Vital Signs Temp 102.7 F H 05/20/18 04:20 Pulse 88 05/20/18 04:20 Resp 29 H 05/20/18 04:05 BP 140/68 05/20/18 04:00 Pulse Ox 98 05/20/18 04:20 - Labs Result Diagrams: 05/20/18 07:40 05/20/18 07:40 Labs: Laboratory Results - last 24 hr 05/19/18 05/19/18 05/19/18 10:18 15:42 22:00 WBC RBC Hgb Hct MCV MCH MCHC RDW Plt Count MPV pCO2 33 L pO2 85.0 HCO3 24.6 ABG pH 7.48 H ABG Total CO2 25.6 ABG O2 Saturation 96.8 ABG O2 Content ABG Base Excess 1.6 ABG Hemoglobin ABG Carboxyhemoglobin POC ABG HHb (Measured) ABG Methemoglobin ABG O2 Capacity ABG Potassium 3.0 L Hgb O2 Saturation Glucose 460 H* D Lactate 1.2 FiO2 100.0 Sodium 131 L 134.0 Potassium 3.8 Chloride 96 L 98.0 Carbon Dioxide 30 Anion Gap 9 L BUN 24 H Creatinine 1.4 H Est GFR ( Amer) 47 Est GFR (Non-Af Amer) 39 POC Glucose (mg/dL) 362 H Random Glucose 463 H* D Calcium 8.3 L Phosphorus Magnesium 1.5 L Total Bilirubin 0.2 AST 26 ALT 32 Alkaline Phosphatase 140 H D Total Creatine Kinase 205 Total Protein 6.1 Albumin 3.2 Globulin 2.9 Albumin/Globulin Ratio 1.1 TSH 3rd Generation Arterial Blood Potassium 3.0 L Urine Color Urine Appearance Urine pH Ur Specific [place] Urine Protein Urine Glucose (UA) Urine Ketones Urine Blood Urine Nitrate Urine Bilirubin Urine Urobilinogen Ur Leukocyte Esterase Urine RBC Urine WBC Ur Epithelial Cells Amorphous Sediment Urine Bacteria Urine Opiates Screen Urine Methadone Screen Ur Barbiturates Screen Ur Phencyclidine Scrn Ur Amphetamines Screen U Benzodiazepines Scrn U Oth Cocaine Metabols U Cannabinoids Screen Influenza Typ A,B (EIA) 05/20/18 05/20/18 05/20/18 01:00 02:12 02:12 WBC RBC Hgb Hct MCV MCH MCHC RDW Plt Count MPV pCO2 32 L pO2 85.0 HCO3 22.2 ABG pH 7.45 ABG Total CO2 23.2 ABG O2 Saturation 96.3 ABG O2 Content 14.1 L ABG Base Excess -1.3 ABG Hemoglobin 10.4 L ABG Carboxyhemoglobin 0.3 L POC ABG HHb (Measured) 3.7 ABG Methemoglobin 0.5 ABG O2 Capacity 14.6 L ABG Potassium Hgb O2 Saturation 95.4 Glucose Lactate FiO2 100.0 Sodium Potassium Chloride Carbon Dioxide Anion Gap BUN Creatinine Est GFR ( Amer) Est GFR (Non-Af Amer) POC Glucose (mg/dL) Random Glucose Calcium Phosphorus Magnesium Total Bilirubin AST ALT Alkaline Phosphatase Total Creatine Kinase Total Protein Albumin Globulin Albumin/Globulin Ratio TSH 3rd Generation Arterial Blood Potassium Urine Color Yellow Urine Appearance Clear Urine pH 7.0 Ur Specific [place] 1.025 Urine Protein >=300 H Urine Glucose (UA) >=1000 Urine Ketones Negative Urine Blood Small H Urine Nitrate Negative Urine Bilirubin Negative Urine Urobilinogen 0.2 Ur Leukocyte Esterase Negative Urine RBC 1 - 3 H Urine WBC 0 - 2 Ur Epithelial Cells 0 - 2 Amorphous Sediment Few Urine Bacteria Occ Urine Opiates Screen Negative Urine Methadone Screen Negative Ur Barbiturates Screen Negative Ur Phencyclidine Scrn Negative Ur Amphetamines Screen Negative U Benzodiazepines Scrn Positive H U Oth Cocaine Metabols Negative U Cannabinoids Screen Negative Influenza Typ A,B (EIA) 05/20/18 05/20/18 05/20/18 07:30 07:40 07:40 WBC 3.9 L D RBC 4.02 Hgb 10.2 L Hct 30.4 L MCV 75.6 L MCH 25.4 MCHC 33.6 RDW 13.9 Plt Count 208 MPV 10.2 pCO2 pO2 HCO3 ABG pH ABG Total CO2 ABG O2 Saturation ABG O2 Content ABG Base Excess ABG Hemoglobin ABG Carboxyhemoglobin POC ABG HHb (Measured) ABG Methemoglobin ABG O2 Capacity ABG Potassium Hgb O2 Saturation Glucose Lactate FiO2 Sodium 132 Potassium 2.8 L* D Chloride 99 Carbon Dioxide 23 Anion Gap 13 BUN 33 H Creatinine 1.8 H Est GFR ( Amer) 35 Est GFR (Non-Af Amer) 29 POC Glucose (mg/dL) Random Glucose 317 H* D Calcium 8.2 L Phosphorus 4.5 Magnesium 1.8 Total Bilirubin 0.5 AST 33 ALT 24 Alkaline Phosphatase 111 Total Creatine Kinase Total Protein 5.1 L Albumin 2.6 L Globulin 2.5 Albumin/Globulin Ratio 1.0 L TSH 3rd Generation Arterial Blood Potassium Urine Color Urine Appearance Urine pH Ur Specific [place] Urine Protein Urine Glucose (UA) Urine Ketones Urine Blood Urine Nitrate Urine Bilirubin Urine Urobilinogen Ur Leukocyte Esterase Urine RBC Urine WBC Ur Epithelial Cells Amorphous Sediment Urine Bacteria Urine Opiates Screen Urine Methadone Screen Ur Barbiturates Screen Ur Phencyclidine Scrn Ur Amphetamines Screen U Benzodiazepines Scrn U Oth Cocaine Metabols U Cannabinoids Screen Influenza Typ A,B (EIA) Negative for flu a/b 05/20/18 05/20/18 05/20/18 07:40 07:55 08:30 WBC RBC Hgb Hct MCV MCH MCHC RDW Plt Count MPV pCO2 31 L pO2 167.0 H HCO3 21.1 ABG pH 7.44 ABG Total CO2 22.1 ABG O2 Saturation 97.5 ABG O2 Content 14.4 L ABG Base Excess -2.4 L ABG Hemoglobin 10.3 L ABG Carboxyhemoglobin 0.1 L POC ABG HHb (Measured) 2.5 ABG Methemoglobin 0.2 ABG O2 Capacity 14.8 L ABG Potassium Hgb O2 Saturation 97.2 Glucose Lactate FiO2 100.0 Sodium Potassium Chloride Carbon Dioxide Anion Gap BUN Creatinine Est GFR ( Amer) Est GFR (Non-Af Amer) POC Glucose (mg/dL) 299 H Random Glucose Calcium Phosphorus Magnesium Total Bilirubin AST ALT Alkaline Phosphatase Total Creatine Kinase Total Protein Albumin Globulin Albumin/Globulin Ratio TSH 3rd Generation 0.94 Arterial Blood Potassium Urine Color Urine Appearance Urine pH Ur Specific [place] Urine Protein Urine Glucose (UA) Urine Ketones Urine Blood Urine Nitrate Urine Bilirubin Urine Urobilinogen Ur Leukocyte Esterase Urine RBC Urine WBC Ur Epithelial Cells Amorphous Sediment Urine Bacteria Urine Opiates Screen Urine Methadone Screen Ur Barbiturates Screen Ur Phencyclidine Scrn Ur Amphetamines Screen U Benzodiazepines Scrn U Oth Cocaine Metabols U Cannabinoids Screen Influenza Typ A,B (EIA) Attending/Attestation - Attestation I have personally seen and examined this patient.: Yes I have fully participated in the care of the patient.: Yes I have reviewed all pertinent clinical information: Yes Notes (Text): 05/20/18 10:55 I have seen and examined patient with GI fellow. Agree with above documentation with the following additions. In brief, this is a 57 year old female with history of uncontrolled DM, gastroparesis, depression, who presented to hospital with witnessed seizure activity while at home. During MRI at hospital patient became unresponsive and was intubated for airway protection, suspected to have ongoing seizure activity. There was no reported abdominal pain, nausea, vomiting. Temperature of 102.9 noted. DM, uncontrolled Gastroparesis AMS - seizure Depression - NPO - Continue with antibiotic therapy as per ID - Follow up neurology recommendations for seizure management - Ventilator management as per critical care team - Replete and monitor electrolytes - NGT has been placed, may begin feeds at slow rate when feasible - Patient is not PEG candidate due to underlying gastroparesis, if indicated in future may require surgical PEJ placement - No further GI intervention planned at this time, will sign off case. Please reconsult as necessary, thank you.
[2018-05-20] MEDS: Piperacillin/Tazobact 3.375 gm 100 ML IVPB SCH ×3 (07:27→21:30)
[2018-05-20] MEDS ORDERED: Vancomycin 1.5 GM in Sodium Chloride 0.9% 500 ML IVPB ONE (07:30)
--- NOTE | 2018-05-20 07:40 | CP.CCUPN ---
<Anival Carteril - Last Filed: 05/20/18 11:54> CCU Subjective - Physician Review Subjective (Free Text): Joao Carter Internal Medicine Resident- Progress Note on Behalf of Critical Care Team Subjective: Patient seen and examined at bedside. Temperature max overnight 104.6 F. Further subjective data cannot be ascertained at this time. 12 point ROS cannot be ascertained at this time due to altered mental status Physical Examination: - Constitutional Appears: Well, No Acute Distress - Head Exam Head Exam: ATRAUMATIC, NORMAL INSPECTION, NORMOCEPHALIC - Eye Exam Eye Exam: EOMI, Normal appearance, PERRL - ENT Exam ENT Exam: Mucous Membranes Dry, Normal Exam, No lingular injury - Neck Exam Neck exam: Positive for: Normal Inspection - Respiratory Exam Respiratory Exam: Clear to Auscultation Bilateral, NORMAL BREATHING PATTERN - Cardiovascular Exam Cardiovascular Exam: REGULAR RHYTHM, +S1, +S2. absent: Gallop, JVD, Rubs - GI/Abdominal Exam GI & Abdominal Exam: Normal Bowel Sounds, Soft. absent: Tenderness - Back Exam Back exam: NORMAL INSPECTION - Neurological Exam Neurological exam: Altered mental status, GCS 3T - Psychiatric Exam Psychiatric exam: Normal Affect, Normal Mood - Skin Skin Exam: Dry, Intact, Normal Color, War Assessment and Plan: Patient is a 57 year old female with PMHx of HTN, uncontrolled DM2 complicated by retinopathy/gastroparesis, MDD, LAUREN, and TIA/CVA who was admitted for evaluation and treatment of seizure like activity. Patient suspected of experiencing aspiration. She was intubated/sedated due to an inability to protect her airway. Neuro Acute encephalopathy,AMS - rule out metabolic vs. toxic - 05/19/18 CT Head without Contrast- No acute findings - 05/20/2019 CT Head without Contrast ordered and pending - GCS3T Seizures, Hx of TIA/CVA - patient was keppra loaded on admission - started on keppra 750mg IV q12 - question of patient being in status- given versed 2mg IV push and started on versed drip 7mcg/hr & propofol @ 5mcg/kg/min - neuro consulted- appreciate recommendations - high risk fall precautions Neurogenic Fever - continue cooling blanket - achieve euthermia Cardiovascular: Hx of HTN - stable 140s/60s - continue clonidine 0.2mg/24 hours - continue losartan 100mg PO daily - cardiology consulted (Dr. Farmer)- appreciate recommendation Resp: Respiratory Failure s/p Seizure Aspiration - intubated - continue PRVC TV400 RR12 [id number] - weaning trial and sedation trial daily Aspiration Pneumonia - 05/19/18 CXR - No active disease - 05/20/18 CXR- right middle lobe infiltrated, gastric bubble noted- repeat CXR stat - continue vancomyin 1.5g IV x 1 - continue zosyn 3.375 q8h - continue rocephin 1gram IV daily as per primary - infectious disease consulted (Dr. sales)- appreciate recommendations GI Hx of Gastroparesis - NPO - continue reglan 5mg mg PO QS - continue zofran 4mg IV q8h - continue bentyl 10mg PO TID - discontinue IVF Half NS @ 60cc/hr, started on NS@100cc/hr - GI consulted (Dr. Zambrano)- appreciate recommendations GI ppx: - protonix 40mg PO daily Endo Hx DM - continue levemir 10 units SC HS - continue lispro insulin sliding scale low - Hg A1C ordered - endocrinology consulted Dr Coe Renal ANTONIO - likely pre-renal in nature - started on IVF NS @ 100cc/hr - monitor closely via BMP/Creatinine Hypokalemia - 2.8 - KCl 20 meq IV x 3 - Kcl 40 meq via NG x 1 - repeat BMP at 1700 Hypomagnemia - given 1gram in ED - awaiting AM mag level Heme Anemia - microcytic - stable at 10 - serum, iron, tibc, ferritin, folate, b12 recommended DVT Ppx - SCD Patient case discussed with and plan approved by attending physician, Dr. Reji jones. CCU Objective - Vital Signs / Intake & Output Vital Signs (Last 4 hours): Vital Signs Temp Pulse Resp BP Pulse Ox 05/20/18 04:20 102.7 F H 88 98 05/20/18 04:10 102.9 F H 88 98 05/20/18 04:05 102.7 F H 88 29 H 98 05/20/18 04:00 102.9 F H 90 28 H 140/68 98 05/20/18 03:50 102.9 F H 89 28 H 98 05/20/18 03:40 103.1 F H 91 H 27 H 98 Intake and Output (Last 8hrs): Intake & Output 05/19/18 05/20/18 05/20/18 22:59 06:59 14:59 Intake Total 720 Output Total 700 Balance 20 Weight 132 lb Intake: IV 720 0.5 ns 720 Output: Urine 700 Urethral (Wan) 700 Other: Voiding Method Diaper - Physical Exam Head: Positive for: Atraumatic, Normocephalic Pupils: Positive for: PERRL Extroacular Muscles: Positive for: EOMI Conjunctiva: Positive for: Normal Mouth: Positive for: Moist Mucous Membranes Neck: Positive for: Normal Range of Motion Respiratory/Chest: Positive for: Clear to Auscultation, Good Air Exchange. Negative for: Respiratory Distress, Accessory Muscle Use Cardiovascular: Positive for: Regular Rate and Rhythm, Normal S1, S2. Negative for: Murmurs Abdomen: Negative for: Tenderness, Distention, Peritoneal Signs Back: Positive for: Normal Inspection Upper Extremity: Positive for: Normal Inspection. Negative for: Cyanosis, Edema Lower Extremity: Positive for: Normal Inspection, Other (Right foot amputation noted). Negative for: Edema Neurological: Positive for: GCS=15, CN II-XII Intact, Speech Normal, Motor Func Grossly Intact Skin: Positive for: Warm, Dry, Normal Color. Negative for: Rashes Psychiatric: Positive for: Alert, Oriented x 3, Normal Insight, Normal Co ncentration - Medications Active Medications: Active Medications Generic Name Dose Route Start Last Admin Trade Name Freq PRN Reason Stop Dose Admin Clonidine HCl 1 patch 05/19/18 16:00 05/19/18 16:08 Catapres-Tts2 0.2 Mg/24 Hr TD 1 patch Q7D@1600 PATTI Administration Dicyclomine HCl 10 mg 05/19/18 18:00 05/19/18 18:17 Bentyl PO Not Given TID PATTI Fentanyl 1 patch 05/19/18 18:00 05/19/18 19:09 Duragesic TD Not Given Q72H PATTI Gabapentin 300 mg 05/19/18 18:00 05/19/18 18:18 Neurontin PO Not Given BID PATTI Protocol Sodium Chloride 1,000 mls @ 60 mls/hr 05/19/18 15:55 05/19/18 16:07 Sodium Chloride 0.45% IV 60 mls/hr .[id number] PATTI Administration Ceftriaxone Sodium 1 gm in 100 mls @ 100 mls/hr 05/20/18 10:00 Rocephin 1 Gram Ivpb IVPB DAILY PATTI Protocol Vancomycin HCl 1.5 gm/ Sodium 500 mls @ 167 mls/hr 05/20/18 07:30 Chloride IVPB 05/20/18 10:29 ONCE ONE Protocol Piperacillin Sod/Tazobactam Sod 100 mls @ 25 mls/hr 05/20/18 07:00 05/20/18 07:27 Zosyn 3.375 In Ns 100ml IVPB 05/27/18 07:01 25 mls/hr Q8 PATTI Administration Protocol Insulin Detemir 10 unit 05/19/18 22:00 05/20/18 03:37 Levemir SC Not Given HS PATTI Insulin Human Lispro 0 units 05/20/18 07:30 Humalog Low SC ACHS PATTI Protocol Losartan Potassium 100 mg 05/20/18 10:00 Cozaar PO DAILY PATTI Metoclopramide HCl 5 mg 05/19/18 22:00 05/19/18 23:41 Reglan PO Not Given HS PATTI Ondansetron HCl 4 mg 05/19/18 22:00 05/19/18 23:41 Zofran Tab PO Not Given Q8 PATTI Pantoprazole Sodium 40 mg 05/20/18 00:30 05/20/18 00:50 Protonix Inj IVP 40 mg Q12 PATTI Administration Venlafaxine HCl 75 mg 05/20/18 10:00 Effexor Xr PO DAILY PATTI - Patient Studies Lab Studies: Lab Studies 05/20/18 05/20/18 05/20/18 Range/Units 02:12 02:12 01:00 WBC (4.5-11.0) 10^3/uL RBC (3.5-6.1) 10^6/uL Hgb (12.0-16.0) g/dL Hct (36.0-48.0) % MCV (80.0-105.0) fl MCH (25.0-35.0) pg MCHC (31.0-37.0) g/dl RDW (11.5-14.5) % Plt Count (120.0-450.0) 10^3/uL MPV (7.0-11.0) fl Gran % (50.0-68.0) % Lymph % (Auto) (22.0-35.0) % [place] % (Auto) (1.0-6.0) % Eos % (Auto) (1.5-5.0) % Baso % (Auto) (0.0-3.0) % Gran # (1.4-6.5) Lymph # (Auto) (1.2-3.4) [place] # (Auto) (0.1-0.6) Eos # (Auto) (0.0-0.7) Baso # (Auto) (0.0-2.0) K/mm3 pCO2 32 L (35-45) mm/Hg pO2 85.0 (80-100) mm/Hg HCO3 22.2 (21-28) mmol/L ABG pH 7.45 (7.35-7.45) ABG Total CO2 23.2 (22-28) mmol.L ABG O2 Saturation 96.3 (95-98) % ABG O2 Content 14.1 L (15-23) ML/dl ABG Base Excess -1.3 (-2.0-3.0) mmol/L ABG Hemoglobin 10.4 L (11.7-17.4) g/dL ABG Carboxyhemoglobin 0.3 L (0.5-1.5) % POC ABG HHb (Measured) 3.7 (0-5) % ABG Methemoglobin 0.5 (0.0-3.0) % ABG O2 Capacity 14.6 L (16-24) mL/dl ABG Potassium (3.6-5.2) mmol/L Hgb O2 Saturation 95.4 (95.0-98.0) % Glucose (65-105) mg/dl Lactate (0.7-2.1) mmol/L FiO2 100.0 % Sodium (132-148) mmol/L Potassium (3.6-5.0) mmol/L Chloride (98-107) mmol/L Carbon Dioxide (21-33) mmol/L Anion Gap (10-20) BUN (7-21) mg/dL Creatinine (0.7-1.2) mg/dl Est GFR ( Amer) Est GFR (Non-Af Amer) POC Glucose (mg/dL) (65-110) mg/dL Random Glucose (70-110) mg/dL Calcium (8.4-10.5) mg/dL Magnesium (1.7-2.2) mg/dL Total Bilirubin (0.2-1.3) mg/dL AST (14-36) U/L ALT (7-56) U/L Alkaline Phosphatase (38-126) U/L Total Creatine Kinase (35-230) U/L Total Protein (5.8-8.3) g/dL Albumin (3.0-4.8) g/dL Globulin gm/dL Albumin/Globulin Ratio (1.1-1.8) Arterial Blood Potassium (3.6-5.2) mmol/L Urine Color Yellow (YELLOW) Urine Appearance Clear (CLEAR) Urine pH 7.0 (4.7-8.0) Ur Specific Warren 1.025 (1.005-1.035) Urine Protein >=300 H (<30 mg/dL) mg/dL Urine Glucose (UA) >=1000 (NEGATIVE) mg/dL Urine Ketones Negative (NEGATIVE) mg/dL Urine Blood Small H (NEGATIVE) Urine Nitrate Negative (NEGATIVE) Urine Bilirubin Negative (NEGATIVE) Urine Urobilinogen 0.2 (<1 E.U./dL) E.U./dL Ur Leukocyte Esterase Negative (NEGATIVE) Jennifer/uL Urine RBC 1 - 3 H (0-2) /hpf Urine WBC 0 - 2 (0-6) /hpf Ur Epithelial Cells 0 - 2 (0-5) /hpf Amorphous Sediment Few (NONE) /hpf Urine Bacteria Occ (NONE) /hpf Urine Opiates Screen Negative (NEGATIVE) Urine Methadone Screen Negative (NEGATIVE) Ur Barbiturates Screen Negative (NEGATIVE) Ur Phencyclidine Scrn Negative (NEGATIVE) Ur Amphetamines Screen Negative (NEGATIVE) U Benzodiazepines Scrn Positive H (NEGATIVE) U Oth Cocaine Metabols Negative (NEGATIVE) U Cannabinoids Screen Negative (NEGATIVE) Alcohol, Quantitative (0-10) mg/dL 05/19/18 05/19/18 05/19/18 Range/Units 22:00 15:42 10:18 WBC (4.5-11.0) 10^3/uL RBC (3.5-6.1) 10^6/uL Hgb (12.0-16.0) g/dL Hct (36.0-48.0) % MCV (80.0-105.0) fl MCH (25.0-35.0) pg MCHC (31.0-37.0) g/dl RDW (11.5-14.5) % Plt Count (120.0-450.0) 10^3/uL MPV (7.0-11.0) fl Gran % (50.0-68.0) % Lymph % (Auto) (22.0-35.0) % [place] % (Auto) (1.0-6.0) % Eos % (Auto) (1.5-5.0) % Baso % (Auto) (0.0-3.0) % Gran # (1.4-6.5) Lymph # (Auto) (1.2-3.4) [place] # (Auto) (0.1-0.6) Eos # (Auto) (0.0-0.7) Baso # (Auto) (0.0-2.0) K/mm3 pCO2 33 L (35-45) mm/Hg pO2 85.0 (80-100) mm/Hg HCO3 24.6 (21-28) mmol/L ABG pH 7.48 H (7.35-7.45) ABG Total CO2 25.6 (22-28) mmol.L ABG O2 Saturation 96.8 (95-98) % ABG O2 Content (15-23) ML/dl ABG Base Excess 1.6 (-2.0-3.0) mmol/L ABG Hemoglobin (11.7-17.4) g/dL ABG Carboxyhemoglobin (0.5-1.5) % POC ABG HHb (Measured) (0-5) % ABG Methemoglobin (0.0-3.0) % ABG O2 Capacity (16-24) mL/dl ABG Potassium 3.0 L (3.6-5.2) mmol/L Hgb O2 Saturation (95.0-98.0) % Glucose 460 H* D (65-105) mg/dl Lactate 1.2 (0.7-2.1) mmol/L FiO2 100.0 % Sodium 134.0 (132-148) mmol/L Potassium (3.6-5.0) mmol/L Chloride 98.0 (98-107) mmol/L Carbon Dioxide (21-33) mmol/L Anion Gap (10-20) BUN (7-21) mg/dL Creatinine (0.7-1.2) mg/dl Est GFR ( Amer) Est GFR (Non-Af Amer) POC Glucose (mg/dL) 362 H (65-110) mg/dL Random Glucose (70-110) mg/dL Calcium (8.4-10.5) mg/dL Magnesium (1.7-2.2) mg/dL Total Bilirubin (0.2-1.3) mg/dL AST (14-36) U/L ALT (7-56) U/L Alkaline Phosphatase (38-126) U/L Total Creatine Kinase (35-230) U/L Total Protein (5.8-8.3) g/dL Albumin (3.0-4.8) g/dL Globulin gm/dL Albumin/Globulin Ratio (1.1-1.8) Arterial Blood Potassium 3.0 L (3.6-5.2) mmol/L Urine Color (YELLOW) Urine Appearance (CLEAR) Urine pH (4.7-8.0) Ur Specific Warren (1.005-1.035) Urine Protein (<30 mg/dL) mg/dL Urine Glucose (UA) (NEGATIVE) mg/dL Urine Ketones (NEGATIVE) mg/dL Urine Blood (NEGATIVE) Urine Nitrate (NEGATIVE) Urine Bilirubin (NEGATIVE) Urine Urobilinogen (<1 E.U./dL) E.U./dL Ur Leukocyte Esterase (NEGATIVE) Jennifer/uL Urine RBC (0-2) /hpf Urine WBC (0-6) /hpf Ur Epithelial Cells (0-5) /hpf Amorphous Sediment (NONE) /hpf Urine Bacteria (NONE) /hpf Urine Opiates Screen (NEGATIVE) Urine Methadone Screen (NEGATIVE) Ur Barbiturates Screen (NEGATIVE) Ur Phencyclidine Scrn (NEGATIVE) Ur Amphetamines Screen (NEGATIVE) U Benzodiazepines Scrn (NEGATIVE) U Oth Cocaine Metabols (NEGATIVE) U Cannabinoids Screen (NEGATIVE) Alcohol, Quantitative < 10 (0-10) mg/dL 05/19/18 05/19/18 05/19/18 Range/Units 10:18 10:18 09:39 WBC 8.4 D (4.5-11.0) 10^3/uL RBC 4.23 (3.5-6.1) 10^6/uL Hgb 10.6 L (12.0-16.0) g/dL Hct 32.4 L (36.0-48.0) % MCV 76.6 L (80.0-105.0) fl MCH 25.1 (25.0-35.0) pg MCHC 32.7 (31.0-37.0) g/dl RDW 13.8 (11.5-14.5) % Plt Count 216 (120.0-450.0) 10^3/uL MPV 9.9 (7.0-11.0) fl Gran % 77.3 H (50.0-68.0) % Lymph % (Auto) 15.4 L (22.0-35.0) % [place] % (Auto) 3.4 (1.0-6.0) % Eos % (Auto) 3.8 (1.5-5.0) % Baso % (Auto) 0.1 (0.0-3.0) % Gran # 6.51 H (1.4-6.5) Lymph # (Auto) 1.3 (1.2-3.4) [place] # (Auto) 0.3 (0.1-0.6) Eos # (Auto) 0.3 (0.0-0.7) Baso # (Auto) 0.01 (0.0-2.0) K/mm3 pCO2 (35-45) mm/Hg pO2 (80-100) mm/Hg HCO3 (21-28) mmol/L ABG pH (7.35-7.45) ABG Total CO2 (22-28) mmol.L ABG O2 Saturation (95-98) % ABG O2 Content (15-23) ML/dl ABG Base Excess (-2.0-3.0) mmol/L ABG Hemoglobin (11.7-17.4) g/dL ABG Carboxyhemoglobin (0.5-1.5) % POC ABG HHb (Measured) (0-5) % ABG Methemoglobin (0.0-3.0) % ABG O2 Capacity (16-24) mL/dl ABG Potassium (3.6-5.2) mmol/L Hgb O2 Saturation (95.0-98.0) % Glucose (65-105) mg/dl Lactate (0.7-2.1) mmol/L FiO2 % Sodium 131 L (132-148) mmol/L Potassium 3.8 (3.6-5.0) mmol/L Chloride 96 L (98-107) mmol/L Carbon Dioxide 30 (21-33) mmol/L Anion Gap 9 L (10-20) BUN 24 H (7-21) mg/dL Creatinine 1.4 H (0.7-1.2) mg/dl Est GFR ( Amer) 47 Est GFR (Non-Af Amer) 39 POC Glucose (mg/dL) 401 H* (65-110) mg/dL Random Glucose 463 H* D (70-110) mg/dL Calcium 8.3 L (8.4-10.5) mg/dL Magnesium 1.5 L (1.7-2.2) mg/dL Total Bilirubin 0.2 (0.2-1.3) mg/dL AST 26 (14-36) U/L ALT 32 (7-56) U/L Alkaline Phosphatase 140 H D (38-126) U/L Total Creatine Kinase 205 (35-230) U/L Total Protein 6.1 (5.8-8.3) g/dL Albumin 3.2 (3.0-4.8) g/dL Globulin 2.9 gm/dL Albumin/Globulin Ratio 1.1 (1.1-1.8) Arterial Blood Potassium (3.6-5.2) mmol/L Urine Color (YELLOW) Urine Appearance (CLEAR) Urine pH (4.7-8.0) Ur Specific Warren (1.005-1.035) Urine Protein (<30 mg/dL) mg/dL Urine Glucose (UA) (NEGATIVE) mg/dL Urine Ketones (NEGATIVE) mg/dL Urine Blood (NEGATIVE) Urine Nitrate (NEGATIVE) Urine Bilirubin (NEGATIVE) Urine Urobilinogen (<1 E.U./dL) E.U./dL Ur Leukocyte Esterase (NEGATIVE) Jennifer/uL Urine RBC (0-2) /hpf Urine WBC (0-6) /hpf Ur Epithelial Cells (0-5) /hpf Amorphous Sediment (NONE) /hpf Urine Bacteria (NONE) /hpf Urine Opiates Screen (NEGATIVE) Urine Methadone Screen (NEGATIVE) Ur Barbiturates Screen (NEGATIVE) Ur Phencyclidine Scrn (NEGATIVE) Ur Amphetamines Screen (NEGATIVE) U Benzodiazepines Scrn (NEGATIVE) U Oth Cocaine Metabols (NEGATIVE) U Cannabinoids Screen (NEGATIVE) Alcohol, Quantitative (0-10) mg/dL Laboratory Results - last 24 hr 05/19/18 05/19/18 05/19/18 09:39 10:18 10:18 WBC 8.4 D RBC 4.23 Hgb 10.6 L Hct 32.4 L MCV 76.6 L MCH 25.1 MCHC 32.7 RDW 13.8 Plt Count 216 MPV 9.9 Gran % 77.3 H Lymph % (Auto) 15.4 L [place] % (Auto) 3.4 Eos % (Auto) 3.8 Baso % (Auto) 0.1 Gran # 6.51 H Lymph # (Auto) 1.3 Vermilion # (Auto) 0.3 Eos # (Auto) 0.3 Baso # (Auto) 0.01 pCO2 pO2 HCO3 ABG pH ABG Total CO2 ABG O2 Saturation ABG O2 Content ABG Base Excess ABG Hemoglobin ABG Carboxyhemoglobin POC ABG HHb (Measured) ABG Methemoglobin ABG O2 Capacity ABG Potassium Hgb O2 Saturation Glucose Lactate FiO2 Sodium 131 L Potassium 3.8 Chloride 96 L Carbon Dioxide 30 Anion Gap 9 L BUN 24 H Creatinine 1.4 H Est GFR ( Amer) 47 Est GFR (Non-Af Amer) 39 POC Glucose (mg/dL) 401 H* Random Glucose 463 H* D Calcium 8.3 L Magnesium 1.5 L Total Bilirubin 0.2 AST 26 ALT 32 Alkaline Phosphatase 140 H D Total Creatine Kinase 205 Total Protein 6.1 Albumin 3.2 Globulin 2.9 Albumin/Globulin Ratio 1.1 Arterial Blood Potassium Urine Color Urine Appearance Urine pH Ur Specific Warren Urine Protein Urine Glucose (UA) Urine Ketones Urine Blood Urine Nitrate Urine Bilirubin Urine Urobilinogen Ur Leukocyte Esterase Urine RBC Urine WBC Ur Epithelial Cells Amorphous Sediment Urine Bacteria Urine Opiates Screen Urine Methadone Screen Ur Barbiturates Screen Ur Phencyclidine Scrn Ur Amphetamines Screen U Benzodiazepines Scrn U Oth Cocaine Metabols U Cannabinoids Screen Alcohol, Quantitative 05/19/18 05/19/18 05/19/18 10:18 15:42 22:00 WBC RBC Hgb Hct MCV MCH MCHC RDW Plt Count MPV Gran % Lymph % (Auto) [place] % (Auto) Eos % (Auto) Baso % (Auto) Gran # Lymph # (Auto) [place] # (Auto) Eos # (Auto) Baso # (Auto) pCO2 33 L pO2 85.0 HCO3 24.6 ABG pH 7.48 H ABG Total CO2 25.6 ABG O2 Saturation 96.8 ABG O2 Content ABG Base Excess 1.6 ABG Hemoglobin ABG Carboxyhemoglobin POC ABG HHb (Measured) ABG Methemoglobin ABG O2 Capacity ABG Potassium 3.0 L Hgb O2 Saturation Glucose 460 H* D Lactate 1.2 FiO2 100.0 Sodium 134.0 Potassium Chloride 98.0 Carbon Dioxide Anion Gap BUN Creatinine Est GFR ( Amer) Est GFR (Non-Af Amer) POC Glucose (mg/dL) 362 H Random Glucose Calcium Magnesium Total Bilirubin AST ALT Alkaline Phosphatase Total Creatine Kinase Total Protein Albumin Globulin Albumin/Globulin Ratio Arterial Blood Potassium 3.0 L Urine Color Urine Appearance Urine pH Ur Specific Warren Urine Protein Urine Glucose (UA) Urine Ketones Urine Blood Urine Nitrate Urine Bilirubin Urine Urobilinogen Ur Leukocyte Esterase Urine RBC Urine WBC Ur Epithelial Cells Amorphous Sediment Urine Bacteria Urine Opiates Screen Urine Methadone Screen Ur Barbiturates Screen Ur Phencyclidine Scrn Ur Amphetamines Screen U Benzodiazepines Scrn U Oth Cocaine Metabols U Cannabinoids Screen Alcohol, Quantitative < 10 05/20/18 05/20/18 05/20/18 01:00 02:12 02:12 WBC RBC Hgb Hct MCV MCH MCHC RDW Plt Count MPV Gran % Lymph % (Auto) [place] % (Auto) Eos % (Auto) Baso % (Auto) Gran # Lymph # (Auto) [place] # (Auto) Eos # (Auto) Baso # (Auto) pCO2 32 L pO2 85.0 HCO3 22.2 ABG pH 7.45 ABG Total CO2 23.2 ABG O2 Saturation 96.3 ABG O2 Content 14.1 L ABG Base Excess -1.3 ABG Hemoglobin 10.4 L ABG Carboxyhemoglobin 0.3 L POC ABG HHb (Measured) 3.7 ABG Methemoglobin 0.5 ABG O2 Capacity 14.6 L ABG Potassium Hgb O2 Saturation 95.4 Glucose Lactate FiO2 100.0 Sodium Potassium Chloride Carbon Dioxide Anion Gap BUN Creatinine Est GFR ( Amer) Est GFR (Non-Af Amer) POC Glucose (mg/dL) Random Glucose Calcium Magnesium Total Bilirubin AST ALT Alkaline Phosphatase Total Creatine Kinase Total Protein Albumin Globulin Albumin/Globulin Ratio Arterial Blood Potassium Urine Color Yellow Urine Appearance Clear Urine pH 7.0 Ur Specific Warren 1.025 Urine Protein >=300 H Urine Glucose (UA) >=1000 Urine Ketones Negative Urine Blood Small H Urine Nitrate Negative Urine Bilirubin Negative Urine Urobilinogen 0.2 Ur Leukocyte Esterase Negative Urine RBC 1 - 3 H Urine WBC 0 - 2 Ur Epithelial Cells 0 - 2 Amorphous Sediment Few Urine Bacteria Occ Urine Opiates Screen Negative Urine Methadone Screen Negative Ur Barbiturates Screen Negative Ur Phencyclidine Scrn Negative Ur Amphetamines Screen Negative U Benzodiazepines Scrn Positive H U Oth Cocaine Metabols Negative U Cannabinoids Screen Negative Alcohol, Quantitative Radiology Impressions: Radiology Impressions Head CT 05/19/18 10:33 IMPRESSION: No acute findings Chest X-Ray 05/19/18 10:35 IMPRESSION: No active disease. EKG/Cardiology Studies: Cardiology / EKG Studies 05/19/18 09:55 ELECTROCARDIOGRAM Stat Comment: Reason For Exam: r/o dysrhytmia Fingerstick Blood Sugar Results: 474 Critical Care Progress Note - Nutrition Nutrition: Nutrition Category Date Time Status NPO Diet [DIET] Diets 05/19/18 Dinner Ordered <Anil Monet - Last Filed: 05/20/18 14:40> CCU Objective - Vital Signs / Intake & Output Intake and Output (Last 8hrs): Intake & Output 05/19/18 05/20/18 05/20/18 22:59 06:59 14:59 Intake Total 720 Output Total 700 Balance 20 Weight 132 lb Intake: IV 720 0.5 ns 720 Output: Urine 700 Urethral (Wan) 700 Other: Voiding Method Diaper - Medications Active Medications: Active Medications Generic Name Dose Route Start Last Admin Trade Name Freq PRN Reason Stop Dose Admin Clonidine HCl 1 patch 05/19/18 16:00 05/19/18 16:08 Catapres-Tts2 0.2 Mg/24 Hr TD 1 patch Q7D@1600 PATTI Administration Dicyclomine HCl 10 mg 05/19/18 18:00 05/19/18 18:17 Bentyl PO Not Given TID PATTI Fentanyl 1 patch 05/19/18 18:00 05/19/18 19:09 Duragesic TD Not Given Q72H PATTI Gabapentin 300 mg 12/20/18 18:00 05/19/18 18:18 Neurontin PO Not Given BID PATTI Protocol Piperacillin Sod/Tazobactam Sod 100 mls @ 25 mls/hr 05/20/18 07:00 05/20/18 07:27 Zosyn 3.375 In Ns 100ml IVPB 05/27/18 07:01 25 mls/hr Q8 PATTI Administration Protocol Midazolam 100 mg/100ml in NS 100 mg in 100 mls @ 7 mls/hr 05/20/18 08:31 05/20/18 09:12 Midazolam 100 Mg/100ml In Ns IV 7 mg/hr .[id number] PRN 7 mls/hr Seizure activity Administration Protocol 7 MG/HR Sodium Chloride 1,000 mls @ 100 mls/hr 05/20/18 10:45 Sodium Chloride 0.9% IV .Q10H PATTI Propofol 1,000 mg in 100 mls @ 1.796 mls/hr 05/20/18 10:44 Diprivan IV .Q24H PRN TITRATE PER MD ORDER Protocol 5 MCG/KG/MIN Insulin Detemir 14 unit 05/20/18 22:00 Levemir SC HS PATTI Insulin Human Lispro 0 units 05/20/18 07:30 05/20/18 09:08 Humalog Low SC 3 u ACHS PATTI Administration Protocol Levalbuterol HCl 1.25 mg 05/20/18 08:00 05/20/18 14:14 Xopenex IH 1.25 mg [id number] PATTI Administration Metoclopramide HCl 5 mg 05/19/18 22:00 05/19/18 23:41 Reglan PO Not Given HS PATTI Ondansetron HCl 4 mg 05/19/18 22:00 05/19/18 23:41 Zofran Tab PO Not Given Q8 PATTI Pantoprazole Sodium 40 mg 05/21/18 10:00 Protonix Inj IVP DAILY PATTI Venlafaxine HCl 75 mg 05/20/18 10:00 Effexor Xr PO DAILY PATTI - Patient Studies Lab Studies: Lab Studies 05/20/18 05/20/18 05/20/18 Range/Units 08:30 07:55 07:40 WBC (4.5-11.0) 10^3/uL RBC (3.5-6.1) 10^6/uL Hgb (12.0-16.0) g/dL Hct (36.0-48.0) % MCV (80.0-105.0) fl MCH (25.0-35.0) pg MCHC (31.0-37.0) g/dl RDW (11.5-14.5) % Plt Count (120.0-450.0) 10^3/uL MPV (7.0-11.0) fl pCO2 31 L (35-45) mm/Hg pO2 167.0 H (80-100) mm/Hg HCO3 21.1 (21-28) mmol/L ABG pH 7.44 (7.35-7.45) ABG Total CO2 22.1 (22-28) mmol.L ABG O2 Saturation 97.5 (95-98) % ABG O2 Content 14.4 L (15-23) ML/dl ABG Base Excess -2.4 L (-2.0-3.0) mmol/L ABG Hemoglobin 10.3 L (11.7-17.4) g/dL ABG Carboxyhemoglobin 0.1 L (0.5-1.5) % POC ABG HHb (Measured) 2.5 (0-5) % ABG Methemoglobin 0.2 (0.0-3.0) % ABG O2 Capacity 14.8 L (16-24) mL/dl ABG Potassium (3.6-5.2) mmol/L Hgb O2 Saturation 97.2 (95.0-98.0) % Sodium (132-148) mmol/L Chloride (98-107) mmol/L Glucose (65-105) mg/dl Lactate (0.7-2.1) mmol/L FiO2 100.0 % Potassium (3.6-5.0) mmol/L Carbon Dioxide (21-33) mmol/L Anion Gap (10-20) BUN (7-21) mg/dL Creatinine (0.7-1.2) mg/dl Est GFR ( Amer) Est GFR (Non-Af Amer) POC Glucose (mg/dL) 299 H (65-110) mg/dL Random Glucose (70-110) mg/dL Hemoglobin A1c (4.2-6.5) % Calcium (8.4-10.5) mg/dL Phosphorus (2.5-4.5) mg/dL Magnesium (1.7-2.2) mg/dL Total Bilirubin (0.2-1.3) mg/dL AST (14-36) U/L ALT (7-56) U/L Alkaline Phosphatase (38-126) U/L Total Protein (5.8-8.3) g/dL Albumin (3.0-4.8) g/dL Globulin gm/dL Albumin/Globulin Ratio (1.1-1.8) Procalcitonin 25.35 H (0.19-0.49) NG/ML TSH 3rd Generation (0.46-4.68) mIU/mL Cortisol AM Sample (4.46-22.7) ug/dL Arterial Blood Potassium (3.6-5.2) mmol/L Urine Color (YELLOW) Urine Appearance (CLEAR) Urine pH (4.7-8.0) Ur Specific Warren (1.005-1.035) Urine Protein (<30 mg/dL) mg/dL Urine Glucose (UA) (NEGATIVE) mg/dL Urine Ketones (NEGATIVE) mg/dL Urine Blood (NEGATIVE) Urine Nitrate (NEGATIVE) Urine Bilirubin (NEGATIVE) Urine Urobilinogen (<1 E.U./dL) E.U./dL Ur Leukocyte Esterase (NEGATIVE) Jennifer/uL Urine RBC (0-2) /hpf Urine WBC (0-6) /hpf Ur Epithelial Cells (0-5) /hpf Amorphous Sediment (NONE) /hpf Urine Bacteria (NONE) /hpf Urine Opiates Screen (NEGATIVE) Urine Methadone Screen (NEGATIVE) Ur Barbiturates Screen (NEGATIVE) Ur Phencyclidine Scrn (NEGATIVE) Ur Amphetamines Screen (NEGATIVE) U Benzodiazepines Scrn (NEGATIVE) U Oth Cocaine Metabols (NEGATIVE) U Cannabinoids Screen (NEGATIVE) Influenza Typ A,B (EIA) (NEGATIVE) 05/20/18 05/20/18 05/20/18 Range/Units 07:40 07:40 07:40 WBC (4.5-11.0) 10^3/uL RBC (3.5-6.1) 10^6/uL Hgb (12.0-16.0) g/dL Hct (36.0-48.0) % MCV (80.0-105.0) fl MCH (25.0-35.0) pg MCHC (31.0-37.0) g/dl RDW (11.5-14.5) % Plt Count (120.0-450.0) 10^3/uL MPV (7.0-11.0) fl pCO2 (35-45) mm/Hg pO2 (80-100) mm/Hg HCO3 (21-28) mmol/L ABG pH (7.35-7.45) ABG Total CO2 (22-28) mmol.L ABG O2 Saturation (95-98) % ABG O2 Content (15-23) ML/dl ABG Base Excess (-2.0-3.0) mmol/L ABG Hemoglobin (11.7-17.4) g/dL ABG Carboxyhemoglobin (0.5-1.5) % POC ABG HHb (Measured) (0-5) % ABG Methemoglobin (0.0-3.0) % ABG O2 Capacity (16-24) mL/dl ABG Potassium (3.6-5.2) mmol/L Hgb O2 Saturation (95.0-98.0) % Sodium (132-148) mmol/L Chloride (98-107) mmol/L Glucose (65-105) mg/dl Lactate (0.7-2.1) mmol/L FiO2 % Potassium (3.6-5.0) mmol/L Carbon Dioxide (21-33) mmol/L Anion Gap (10-20) BUN (7-21) mg/dL Creatinine (0.7-1.2) mg/dl Est GFR ( Amer) Est GFR (Non-Af Amer) POC Glucose (mg/dL) (65-110) mg/dL Random Glucose (70-110) mg/dL Hemoglobin A1c 11.0 H (4.2-6.5) % Calcium (8.4-10.5) mg/dL Phosphorus (2.5-4.5) mg/dL Magnesium (1.7-2.2) mg/dL Total Bilirubin (0.2-1.3) mg/dL AST (14-36) U/L ALT (7-56) U/L Alkaline Phosphatase (38-126) U/L Total Protein (5.8-8.3) g/dL Albumin (3.0-4.8) g/dL Globulin gm/dL Albumin/Globulin Ratio (1.1-1.8) Procalcitonin (0.19-0.49) NG/ML TSH 3rd Generation 0.94 (0.46-4.68) mIU/mL Cortisol AM Sample 43.5 H (4.46-22.7) ug/dL Arterial Blood Potassium (3.6-5.2) mmol/L Urine Color (YELLOW) Urine Appearance (CLEAR) Urine pH (4.7-8.0) Ur Specific Warren (1.005-1.035) Urine Protein (<30 mg/dL) mg/dL Urine Glucose (UA) (NEGATIVE) mg/dL Urine Ketones (NEGATIVE) mg/dL Urine Blood (NEGATIVE) Urine Nitrate (NEGATIVE) Urine Bilirubin (NEGATIVE) Urine Urobilinogen (<1 E.U./dL) E.U./dL Ur Leukocyte Esterase (NEGATIVE) Jennifer/uL Urine RBC (0-2) /hpf Urine WBC (0-6) /hpf Ur Epithelial Cells (0-5) /hpf Amorphous Sediment (NONE) /hpf Urine Bacteria (NONE) /hpf Urine Opiates Screen (NEGATIVE) Urine Methadone Screen (NEGATIVE) Ur Barbiturates Screen (NEGATIVE) Ur Phencyclidine Scrn (NEGATIVE) Ur Amphetamines Screen (NEGATIVE) U Benzodiazepines Scrn (NEGATIVE) U Oth Cocaine Metabols (NEGATIVE) U Cannabinoids Screen (NEGATIVE) Influenza Typ A,B (EIA) (NEGATIVE) 05/20/18 05/20/18 05/20/18 Range/Units 07:40 07:40 07:30 WBC 3.9 L D (4.5-11.0) 10^3/uL RBC 4.02 (3.5-6.1) 10^6/uL Hgb 10.2 L (12.0-16.0) g/dL Hct 30.4 L (36.0-48.0) % MCV 75.6 L (80.0-105.0) fl MCH 25.4 (25.0-35.0) pg MCHC 33.6 (31.0-37.0) g/dl RDW 13.9 (11.5-14.5) % Plt Count 208 (120.0-450.0) 10^3/uL MPV 10.2 (7.0-11.0) fl pCO2 (35-45) mm/Hg pO2 (80-100) mm/Hg HCO3 (21-28) mmol/L ABG pH (7.35-7.45) ABG Total CO2 (22-28) mmol.L ABG O2 Saturation (95-98) % ABG O2 Content (15-23) ML/dl ABG Base Excess (-2.0-3.0) mmol/L ABG Hemoglobin (11.7-17.4) g/dL ABG Carboxyhemoglobin (0.5-1.5) % POC ABG HHb (Measured) (0-5) % ABG Methemoglobin (0.0-3.0) % ABG O2 Capacity (16-24) mL/dl ABG Potassium (3.6-5.2) mmol/L Hgb O2 Saturation (95.0-98.0) % Sodium 132 (132-148) mmol/L Chloride 99 (98-107) mmol/L Glucose (65-105) mg/dl Lactate (0.7-2.1) mmol/L FiO2 % Potassium 2.8 L* D (3.6-5.0) mmol/L Carbon Dioxide 23 (21-33) mmol/L Anion Gap 13 (10-20) BUN 33 H (7-21) mg/dL Creatinine 1.8 H (0.7-1.2) mg/dl Est GFR ( Amer) 35 Est GFR (Non-Af Amer) 29 POC Glucose (mg/dL) (65-110) mg/dL Random Glucose 317 H* D (70-110) mg/dL Hemoglobin A1c (4.2-6.5) % Calcium 8.2 L (8.4-10.5) mg/dL Phosphorus 4.5 (2.5-4.5) mg/dL Magnesium 1.8 (1.7-2.2) mg/dL Total Bilirubin 0.5 (0.2-1.3) mg/dL AST 33 (14-36) U/L ALT 24 (7-56) U/L Alkaline Phosphatase 111 (38-126) U/L Total Protein 5.1 L (5.8-8.3) g/dL Albumin 2.6 L (3.0-4.8) g/dL Globulin 2.5 gm/dL Albumin/Globulin Ratio 1.0 L (1.1-1.8) Procalcitonin (0.19-0.49) NG/ML TSH 3rd Generation (0.46-4.68) mIU/mL Cortisol AM Sample (4.46-22.7) ug/dL Arterial Blood Potassium (3.6-5.2) mmol/L Urine Color (YELLOW) Urine Appearance (CLEAR) Urine pH (4.7-8.0) Ur Specific Warren (1.005-1.035) Urine Protein (<30 mg/dL) mg/dL Urine Glucose (UA) (NEGATIVE) mg/dL Urine Ketones (NEGATIVE) mg/dL Urine Blood (NEGATIVE) Urine Nitrate (NEGATIVE) Urine Bilirubin (NEGATIVE) Urine Urobilinogen (<1 E.U./dL) E.U./dL Ur Leukocyte Esterase (NEGATIVE) Jennifer/uL Urine RBC (0-2) /hpf Urine WBC (0-6) /hpf Ur Epithelial Cells (0-5) /hpf Amorphous Sediment (NONE) /hpf Urine Bacteria (NONE) /hpf Urine Opiates Screen (NEGATIVE) Urine Methadone Screen (NEGATIVE) Ur Barbiturates Screen (NEGATIVE) Ur Phencyclidine Scrn (NEGATIVE) Ur Amphetamines Screen (NEGATIVE) U Benzodiazepines Scrn (NEGATIVE) U Oth Cocaine Metabols (NEGATIVE) U Cannabinoids Screen (NEGATIVE) Influenza Typ A,B (EIA) Negative for flu a/b (NEGATIVE) 05/20/18 05/20/18 05/20/18 Range/Units 02:12 02:12 01:00 WBC (4.5-11.0) 10^3/uL RBC (3.5-6.1) 10^6/uL Hgb (12.0-16.0) g/dL Hct (36.0-48.0) % MCV (80.0-105.0) fl MCH (25.0-35.0) pg MCHC (31.0-37.0) g/dl RDW (11.5-14.5) % Plt Count (120.0-450.0) 10^3/uL MPV (7.0-11.0) fl pCO2 32 L (35-45) mm/Hg pO2 85.0 (80-100) mm/Hg HCO3 22.2 (21-28) mmol/L ABG pH 7.45 (7.35-7.45) ABG Total CO2 23.2 (22-28) mmol.L ABG O2 Saturation 96.3 (95-98) % ABG O2 Content 14.1 L (15-23) ML/dl ABG Base Excess -1.3 (-2.0-3.0) mmol/L ABG Hemoglobin 10.4 L (11.7-17.4) g/dL ABG Carboxyhemoglobin 0.3 L (0.5-1.5) % POC ABG HHb (Measured) 3.7 (0-5) % ABG Methemoglobin 0.5 (0.0-3.0) % ABG O2 Capacity 14.6 L (16-24) mL/dl ABG Potassium (3.6-5.2) mmol/L Hgb O2 Saturation 95.4 (95.0-98.0) % Sodium (132-148) mmol/L Chloride (98-107) mmol/L Glucose (65-105) mg/dl Lactate (0.7-2.1) mmol/L FiO2 100.0 % Potassium (3.6-5.0) mmol/L Carbon Dioxide (21-33) mmol/L Anion Gap (10-20) BUN (7-21) mg/dL Creatinine (0.7-1.2) mg/dl Est GFR ( Amer) Est GFR (Non-Af Amer) POC Glucose (mg/dL) (65-110) mg/dL Random Glucose (70-110) mg/dL Hemoglobin A1c (4.2-6.5) % Calcium (8.4-10.5) mg/dL Phosphorus (2.5-4.5) mg/dL Magnesium (1.7-2.2) mg/dL Total Bilirubin (0.2-1.3) mg/dL AST (14-36) U/L ALT (7-56) U/L Alkaline Phosphatase (38-126) U/L Total Protein (5.8-8.3) g/dL Albumin (3.0-4.8) g/dL Globulin gm/dL Albumin/Globulin Ratio (1.1-1.8) Procalcitonin (0.19-0.49) NG/ML TSH 3rd Generation (0.46-4.68) mIU/mL Cortisol AM Sample (4.46-22.7) ug/dL Arterial Blood Potassium (3.6-5.2) mmol/L Urine Color Yellow (YELLOW) Urine Appearance Clear (CLEAR) Urine pH 7.0 (4.7-8.0) Ur Specific Warren 1.025 (1.005-1.035) Urine Protein >=300 H (<30 mg/dL) mg/dL Urine Glucose (UA) >=1000 (NEGATIVE) mg/dL Urine Ketones Negative (NEGATIVE) mg/dL Urine Blood Small H (NEGATIVE) Urine Nitrate Negative (NEGATIVE) Urine Bilirubin Negative (NEGATIVE) Urine Urobilinogen 0.2 (<1 E.U./dL) E.U./dL Ur Leukocyte Esterase Negative (NEGATIVE) Jennifer/uL Urine RBC 1 - 3 H (0-2) /hpf Urine WBC 0 - 2 (0-6) /hpf Ur Epithelial Cells 0 - 2 (0-5) /hpf Amorphous Sediment Few (NONE) /hpf Urine Bacteria Occ (NONE) /hpf Urine Opiates Screen Negative (NEGATIVE) Urine Methadone Screen Negative (NEGATIVE) Ur Barbiturates Screen Negative (NEGATIVE) Ur Phencyclidine Scrn Negative (NEGATIVE) Ur Amphetamines Screen Negative (NEGATIVE) U Benzodiazepines Scrn Positive H (NEGATIVE) U Oth Cocaine Metabols Negative (NEGATIVE) U Cannabinoids Screen Negative (NEGATIVE) Influenza Typ A,B (EIA) (NEGATIVE) 05/19/18 05/19/18 Range/Units 22:00 15:42 WBC (4.5-11.0) 10^3/uL RBC (3.5-6.1) 10^6/uL Hgb (12.0-16.0) g/dL Hct (36.0-48.0) % MCV (80.0-105.0) fl MCH (25.0-35.0) pg MCHC (31.0-37.0) g/dl RDW (11.5-14.5) % Plt Count (120.0-450.0) 10^3/uL MPV (7.0-11.0) fl pCO2 33 L (35-45) mm/Hg pO2 85.0 (80-100) mm/Hg HCO3 24.6 (21-28) mmol/L ABG pH 7.48 H (7.35-7.45) ABG Total CO2 25.6 (22-28) mmol.L ABG O2 Saturation 96.8 (95-98) % ABG O2 Content (15-23) ML/dl ABG Base Excess 1.6 (-2.0-3.0) mmol/L ABG Hemoglobin (11.7-17.4) g/dL ABG Carboxyhemoglobin (0.5-1.5) % POC ABG HHb (Measured) (0-5) % ABG Methemoglobin (0.0-3.0) % ABG O2 Capacity (16-24) mL/dl ABG Potassium 3.0 L (3.6-5.2) mmol/L Hgb O2 Saturation (95.0-98.0) % Sodium 134.0 (132-148) mmol/L Chloride 98.0 (98-107) mmol/L Glucose 460 H* D (65-105) mg/dl Lactate 1.2 (0.7-2.1) mmol/L FiO2 100.0 % Potassium (3.6-5.0) mmol/L Carbon Dioxide (21-33) mmol/L Anion Gap (10-20) BUN (7-21) mg/dL Creatinine (0.7-1.2) mg/dl Est GFR ( Amer) Est GFR (Non-Af Amer) POC Glucose (mg/dL) 362 H (65-110) mg/dL Random Glucose (70-110) mg/dL Hemoglobin A1c (4.2-6.5) % Calcium (8.4-10.5) mg/dL Phosphorus (2.5-4.5) mg/dL Magnesium (1.7-2.2) mg/dL Total Bilirubin (0.2-1.3) mg/dL AST (14-36) U/L ALT (7-56) U/L Alkaline Phosphatase (38-126) U/L Total Protein (5.8-8.3) g/dL Albumin (3.0-4.8) g/dL Globulin gm/dL Albumin/Globulin Ratio (1.1-1.8) Procalcitonin (0.19-0.49) NG/ML TSH 3rd Generation (0.46-4.68) mIU/mL Cortisol AM Sample (4.46-22.7) ug/dL Arterial Blood Potassium 3.0 L (3.6-5.2) mmol/L Urine Color (YELLOW) Urine Appearance (CLEAR) Urine pH (4.7-8.0) Ur Specific Warren (1.005-1.035) Urine Protein (<30 mg/dL) mg/dL Urine Glucose (UA) (NEGATIVE) mg/dL Urine Ketones (NEGATIVE) mg/dL Urine Blood (NEGATIVE) Urine Nitrate (NEGATIVE) Urine Bilirubin (NEGATIVE) Urine Urobilinogen (<1 E.U./dL) E.U./dL Ur Leukocyte Esterase (NEGATIVE) Jennifer/uL Urine RBC (0-2) /hpf Urine WBC (0-6) /hpf Ur Epithelial Cells (0-5) /hpf Amorphous Sediment (NONE) /hpf Urine Bacteria (NONE) /hpf Urine Opiates Screen (NEGATIVE) Urine Methadone Screen (NEGATIVE) Ur Barbiturates Screen (NEGATIVE) Ur Phencyclidine Scrn (NEGATIVE) Ur Amphetamines Screen (NEGATIVE) U Benzodiazepines Scrn (NEGATIVE) U Oth Cocaine Metabols (NEGATIVE) U Cannabinoids Screen (NEGATIVE) Influenza Typ A,B (EIA) (NEGATIVE) Laboratory Results - last 24 hr 05/19/18 05/19/18 05/20/18 15:42 22:00 01:00 WBC RBC Hgb Hct MCV MCH MCHC RDW Plt Count MPV pCO2 33 L 32 L pO2 85.0 85.0 HCO3 24.6 22.2 ABG pH 7.48 H 7.45 ABG Total CO2 25.6 23.2 ABG O2 Saturation 96.8 96.3 ABG O2 Content 14.1 L ABG Base Excess 1.6 -1.3 ABG Hemoglobin 10.4 L ABG Carboxyhemoglobin 0.3 L POC ABG HHb (Measured) 3.7 ABG Methemoglobin 0.5 ABG O2 Capacity 14.6 L ABG Potassium 3.0 L Hgb O2 Saturation 95.4 Sodium 134.0 Chloride 98.0 Glucose 460 H* D Lactate 1.2 FiO2 100.0 100.0 Potassium Carbon Dioxide Anion Gap BUN Creatinine Est GFR ( Amer) Est GFR (Non-Af Amer) POC Glucose (mg/dL) 362 H Random Glucose Hemoglobin A1c Calcium Phosphorus Magnesium Total Bilirubin AST ALT Alkaline Phosphatase Total Protein Albumin Globulin Albumin/Globulin Ratio Procalcitonin TSH 3rd Generation Cortisol AM Sample Arterial Blood Potassium 3.0 L Urine Color Urine Appearance Urine pH Ur Specific Warren Urine Protein Urine Glucose (UA) Urine Ketones Urine Blood Urine Nitrate Urine Bilirubin Urine Urobilinogen Ur Leukocyte Esterase Urine RBC Urine WBC Ur Epithelial Cells Amorphous Sediment Urine Bacteria Urine Opiates Screen Urine Methadone Screen Ur Barbiturates Screen Ur Phencyclidine Scrn Ur Amphetamines Screen U Benzodiazepines Scrn U Oth Cocaine Metabols U Cannabinoids Screen Influenza Typ A,B (EIA) 05/20/18 05/20/18 05/20/18 02:12 02:12 07:30 WBC RBC Hgb Hct MCV MCH MCHC RDW Plt Count MPV pCO2 pO2 HCO3 ABG pH ABG Total CO2 ABG O2 Saturation ABG O2 Content ABG Base Excess ABG Hemoglobin ABG Carboxyhemoglobin POC ABG HHb (Measured) ABG Methemoglobin ABG O2 Capacity ABG Potassium Hgb O2 Saturation Sodium Chloride Glucose Lactate FiO2 Potassium Carbon Dioxide Anion Gap BUN Creatinine Est GFR ( Amer) Est GFR (Non-Af Amer) POC Glucose (mg/dL) Random Glucose Hemoglobin A1c Calcium Phosphorus Magnesium Total Bilirubin AST ALT Alkaline Phosphatase Total Protein Albumin Globulin Albumin/Globulin Ratio Procalcitonin TSH 3rd Generation Cortisol AM Sample Arterial Blood Potassium Urine Color Yellow Urine Appearance Clear Urine pH 7.0 Ur Specific Warren 1.025 Urine Protein >=300 H Urine Glucose (UA) >=1000 Urine Ketones Negative Urine Blood Small H Urine Nitrate Negative Urine Bilirubin Negative Urine Urobilinogen 0.2 Ur Leukocyte Esterase Negative Urine RBC 1 - 3 H Urine WBC 0 - 2 Ur Epithelial Cells 0 - 2 Amorphous Sediment Few Urine Bacteria Occ Urine Opiates Screen Negative Urine Methadone Screen Negative Ur Barbiturates Screen Negative Ur Phencyclidine Scrn Negative Ur Amphetamines Screen Negative U Benzodiazepines Scrn Positive H U Oth Cocaine Metabols Negative U Cannabinoids Screen Negative Influenza Typ A,B (EIA) Negative for flu a/b 05/20/18 05/20/18 05/20/18 07:40 07:40 07:40 WBC 3.9 L D RBC 4.02 Hgb 10.2 L Hct 30.4 L MCV 75.6 L MCH 25.4 MCHC 33.6 RDW 13.9 Plt Count 208 MPV 10.2 pCO2 pO2 HCO3 ABG pH ABG Total CO2 ABG O2 Saturation ABG O2 Content ABG Base Excess ABG Hemoglobin ABG Carboxyhemoglobin POC ABG HHb (Measured) ABG Methemoglobin ABG O2 Capacity ABG Potassium Hgb O2 Saturation Sodium 132 Chloride 99 Glucose Lactate FiO2 Potassium 2.8 L* D Carbon Dioxide 23 Anion Gap 13 BUN 33 H Creatinine 1.8 H Est GFR ( Amer) 35 Est GFR (Non-Af Amer) 29 POC Glucose (mg/dL) Random Glucose 317 H* D Hemoglobin A1c 11.0 H Calcium 8.2 L Phosphorus 4.5 Magnesium 1.8 Total Bilirubin 0.5 AST 33 ALT 24 Alkaline Phosphatase 111 Total Protein 5.1 L Albumin 2.6 L Globulin 2.5 Albumin/Globulin Ratio 1.0 L Procalcitonin TSH 3rd Generation Cortisol AM Sample Arterial Blood Potassium Urine Color Urine Appearance Urine pH Ur Specific Warren Urine Protein Urine Glucose (UA) Urine Ketones Urine Blood Urine Nitrate Urine Bilirubin Urine Urobilinogen Ur Leukocyte Esterase Urine RBC Urine WBC Ur Epithelial Cells Amorphous Sediment Urine Bacteria Urine Opiates Screen Urine Methadone Screen Ur Barbiturates Screen Ur Phencyclidine Scrn Ur Amphetamines Screen U Benzodiazepines Scrn U Oth Cocaine Metabols U Cannabinoids Screen Influenza Typ A,B (EIA) 05/20/18 05/20/18 05/20/18 07:40 07:40 07:40 WBC RBC Hgb Hct MCV MCH MCHC RDW Plt Count MPV pCO2 pO2 HCO3 ABG pH ABG Total CO2 ABG O2 Saturation ABG O2 Content ABG Base Excess ABG Hemoglobin ABG Carboxyhemoglobin POC ABG HHb (Measured) ABG Methemoglobin ABG O2 Capacity ABG Potassium Hgb O2 Saturation Sodium Chloride Glucose Lactate FiO2 Potassium Carbon Dioxide Anion Gap BUN Creatinine Est GFR ( Amer) Est GFR (Non-Af Amer) POC Glucose (mg/dL) Random Glucose Hemoglobin A1c Calcium Phosphorus Magnesium Total Bilirubin AST ALT Alkaline Phosphatase Total Protein Albumin Globulin Albumin/Globulin Ratio Procalcitonin 25.35 H TSH 3rd Generation 0.94 Cortisol AM Sample 43.5 H Arterial Blood Potassium Urine Color Urine Appearance Urine pH Ur Specific Warren Urine Protein Urine Glucose (UA) Urine Ketones Urine Blood Urine Nitrate Urine Bilirubin Urine Urobilinogen Ur Leukocyte Esterase Urine RBC Urine WBC Ur Epithelial Cells Amorphous Sediment Urine Bacteria Urine Opiates Screen Urine Methadone Screen Ur Barbiturates Screen Ur Phencyclidine Scrn Ur Amphetamines Screen U Benzodiazepines Scrn U Oth Cocaine Metabols U Cannabinoids Screen Influenza Typ A,B (EIA) 05/20/18 05/20/18 07:55 08:30 WBC RBC Hgb Hct MCV MCH MCHC RDW Plt Count MPV pCO2 31 L pO2 167.0 H HCO3 21.1 ABG pH 7.44 ABG Total CO2 22.1 ABG O2 Saturation 97.5 ABG O2 Content 14.4 L ABG Base Excess -2.4 L ABG Hemoglobin 10.3 L ABG Carboxyhemoglobin 0.1 L POC ABG HHb (Measured) 2.5 ABG Methemoglobin 0.2 ABG O2 Capacity 14.8 L ABG Potassium Hgb O2 Saturation 97.2 Sodium Chloride Glucose Lactate FiO2 100.0 Potassium Carbon Dioxide Anion Gap BUN Creatinine Est GFR ( Amer) Est GFR (Non-Af Amer) POC Glucose (mg/dL) 299 H Random Glucose Hemoglobin A1c Calcium Phosphorus Magnesium Total Bilirubin AST ALT Alkaline Phosphatase Total Protein Albumin Globulin Albumin/Globulin Ratio Procalcitonin TSH 3rd Generation Cortisol AM Sample Arterial Blood Potassium Urine Color Urine Appearance Urine pH Ur Specific Warren Urine Protein Urine Glucose (UA) Urine Ketones Urine Blood Urine Nitrate Urine Bilirubin Urine Urobilinogen Ur Leukocyte Esterase Urine RBC Urine WBC Ur Epithelial Cells Amorphous Sediment Urine Bacteria Urine Opiates Screen Urine Methadone Screen Ur Barbiturates Screen Ur Phencyclidine Scrn Ur Amphetamines Screen U Benzodiazepines Scrn U Oth Cocaine Metabols U Cannabinoids Screen Influenza Typ A,B (EIA) Radiology Impressions: Radiology Impressions Chest X-Ray 05/20/18 00:51 IMPRESSION: There is a new right-sided perihilar infiltrate most likely due to CHF. Pneumonia is possible. Endotracheal tube in satisfactory position Head CT 05/20/18 08:29 IMPRESSION: No evidence of acute intracranial hemorrhage mass effect or midline shift. No significant interval changes noted. Chest X-Ray 05/20/18 10:32 IMPRESSION: Nasogastric tube and endotracheal tube in satisfactory position Critical Care Progress Note - Nutrition Nutrition: Nutrition Category Date Time Status NPO Diet [DIET] Diets 05/19/18 Dinner Ordered Assessment/Plan - Assessment and Plan (Free Text) Assessment: Patient seen and examined on rounds with resident, agree with note with following additions/exceptions: Patient is 57 year old female with PMHx of HTN, uncontrolled DM2 complicated by retinopathy/gastroparesis, MDD, LAUREN, and TIA/CVA who was admitted for evaluation and treatment of seizure like activity. Patient aspirated and wass intubated due to an inability to protect her airway. Currently afebrile, BP stable in NAD Neuro exam as above Started on Propofol and Versed, Keppra, VEEG ordered Repeat CT head done, no intracranial abnormality CXR with RML/RLL PNA, on abx, ID following Seizure disorder Aspiration PNA Fever DM Hx TIA/CVA Renal failure Hypokalemia Recommend: - cont with low tidal ventilation, duonebs PRN - Broad spectrum Abx as per ID, panculture, UCx, BCx, Procal 25 - NPO - BP control - IVF, NS 100cc/hr - follow up renal - Keppra, Propofol, Versed - VEEG - MRI brain - follow up neuro - FS control - Replete K and Mg, then repeat BMP - monitor LFTs - GI ppx - DVT ppx, HSQ - Monitor in MICU Critical care time 35 mintes
[2018-05-20 07:56] LABS: HEMOGLOBIN 10.2 g/dL (12.0-16.0); MEAN CELL VOLUME 75.6 fl (80.0-105.0); MEAN CORPUSCULAR HEMOGLOBIN 25.4 pg (25.0-35.0); MEAN CORPUSCULAR HGB CONC 33.6 g/dl (31.0-37.0); MEAN PLATELET VOLUME 10.2 fl (7.0-11.0); RBC 4.02 10^6/uL (3.5-6.1); RED CELL DISTRIBUTION WIDTH 13.9 % (11.5-14.5); WHITE BLOOD COUNT 3.9 10^3/uL (4.5-11.0)
[2018-05-20 08:05] LABS: ARTERIAL BLOOD GAS HCO3 21.1 mmol/L (21-28); ARTERIAL BLOOD GAS HEMOGLOBIN 10.3 g/dL (11.7-17.4); ARTERIAL BLOOD GAS O2 CAPACITY 14.8 mL/dl (16-24); ARTERIAL BLOOD GAS O2 CONTENT 14.4 ML/dl (15-23); ARTERIAL BLOOD GAS O2 SAT 97.5 % (95-98); ARTERIAL BLOOD GAS PCO2 31 mm/Hg (35-45); ARTERIAL BLOOD GAS PH 7.44 (7.35-7.45); ARTERIAL BLOOD GAS TCO2 22.1 mmol.L (22-28)
[2018-05-20] MEDS: Levalbuterol 1.25 MG/3 ML Inhal Soln UD IH SCH ×3 (08:08→19:19)
[2018-05-20 08:24] LABS: ALBUMIN 2.6 g/dL (3.0-4.8); CALCIUM 8.2 mg/dL (8.4-10.5)
[2018-05-20] MEDS ORDERED: Midazolam 2 MG/2 ML VIAL IVP STA (08:29)
--- NOTE | 2018-05-20 08:30 | CON ---
DATE: 05/20/2018 PULMONARY CONSULTATION REASON FOR PULMONARY CONSULTATION: Ventilator management. REFERRING PHYSICIAN: Dr. Josafat Dent. HISTORY OF PRESENT ILLNESS: The patient is a chronically ill 57-year-old female, status post multiple hospital admissions, with past medical history significant for chronic obstructive pulmonary disease, diabetes mellitus, severe gastroparesis, multiple episodes of aspiration pneumonia, hypertension, depression, anxiety, who presented to the emergency room yesterday after a seizure at home.. Apparently,the family found the patient "spaced out". The patient then went on to have a tonic clonic seizure. Emergency Medical Services were then called, who brought the patient to the emergency room for additional evaluation. I did discuss the case with the ICU staff at length. Apparently, while still in the emergency room, the patient had multiple episodes of vomiting. Given her unstable clinical situation, the patient was intubated to protect her airway. I am thus asked to evaluate on this case for additional ventilator management. There is no preceding history of shortness of breath at rest, dyspnea on exertion, cough, or sputum production. There is also no history of chest pain, coughing up of blood, or chest pain - brought on with deep respirations. The patient has had fevers in the ICU. No history of chills or infectious exposure. No history of night sweats, weight loss or appetite change prior to the above events. No history of leg or calf pains. No history of syncope or diaphoresis. No history of recent travel or trauma. REVIEW OF SYSTEMS: As above, the patient did have multiple episodes of vomiting in the emergency room. No abdominal pain or diarrhea. No acute urinary symptoms. No new musculoskeletal complaints. Rest of the review of systems is negative. ALLERGIES: TO DILAUDID AND MORPHINE. SOCIAL HISTORY: Positive for tobacco and negative for alcohol. FAMILY HISTORY: No inheritable diseases. HOME MEDICATIONS: Include fentanyl patch, clonidine, Effexor, Protonix, Zofran, Reglan, Cozaar, Ativan, Humalog, Levemir, Microzide, Neurontin, Bentyl. PHYSICAL EXAMINATION: GENERAL: The patient is currently in the ICU and on the ventilator. She is poorly responsive at this point in time. VITAL SIGNS: Temperature is 102.7, pulse is 88, respirations 20/12, blood pressure 140/68. Oxygen saturation on the ventilator is 98%. HEENT: Normocephalic, atraumatic. No JVD. CARDIOVASCULAR: Positive S1, S2. No S3 gallop. LUNGS: Decreased breath sounds at the bases. Mild bilateral rhonchi (right worse than left). No wheezing. 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 There is no edema in her legs. There is no cyanosis or clubbing. GASTROINTESTINAL: Abdomen is soft, nondistended. Bowel sounds are positive. SKIN: No acute rash. NEUROLOGIC: Exam limited at the present time. PERTINENT LABORATORY DATA: Chest x-ray was done this morning and reviewed. There is a diffuse right-sided infiltrate noted. Arterial blood gas was done on PRVC 12, tidal volume 400, FIO2 of 100%, PEEP of 5. Results are: PH 7.45, pCO2 of 32, pO2 of 85. CBC: White count 8.4K, hemoglobin 10.6, hematocrit 32.4, platelets of 216,000. Complete metabolic profile: Sodium 131, chloride 96, BUN 24, creatinine 1.4, glucose 463, calcium 8.3, magnesium 1.5, alkaline phosphatase 140. Rest of the metabolic profile is within normal limits. IMPRESSION: 1. Seizure disorder. 2. Respiratory insufficiency. 3. Right lung pneumonia - rule out aspiration. 4. Encephalopathy. 5. Chronic obstructive pulmonary disease. 6. Diabetes mellitus. PLAN: Again, I did discuss the case with the ICU staff at length. I have also reviewed the chart at length. The patient is currently poorly responsive and on the ventilator. The patient presents to [facility] after having had a seizure at home. Apparently, the patient's family found her "spaced out." The patient then went on to have a tonic-clonic seizure. Emergency Medical Services then transported the patient to the emergency room. In the emergency room, the patient had multiple bouts of vomiting. Due to her poor mental status and tenuous clinical situation, the patient was intubated to protect her airway. I did review the chest x-ray from this morning. There is a diffuse right lung infiltrate noted. The patient has had multiple aspiration pneumonias in the past. Dr. Sales (Infectious Disease) has been called on the case for antibiotic usage. I also reviewed the arterial blood gas. The arterial blood gas(done at 1 AM) reveals a significant alveolar-arterial gradient. I have ordered another stat arterial blood gas to be done this morning. Inputs by GI and Neurology are also noted. The patient appears critically ill at this point in time. I will discuss the above with the entire ICU team in the next few moments. I will discuss the above with Dr. Dent later this morning. Thank you very much for this pulmonary consultation. Cesar Enriquez MD MTDD
--- NOTE | 2018-05-20 08:44 | CON ---
DATE: 05/19/2018 ENDOCRINOLOGY CONSULT HISTORY OF PRESENT ILLNESS: This is a 57-year-old female with known history of type 2 insulin-requiring diabetes, presenting here with an apparent witnessed tonic-clonic seizure event at home and is being referred now for diabetic evaluation because of marked hyperglycemic accelerations as noted thereof. PAST MEDICAL HISTORY: As mentioned above, history of type 2 insulin-requiring diabetes, on a combination of Levemir given as 12 units subcu at bedtime daily with Humalog given as 4 units t.i.d. with meals; history of hypertension and dyslipidemia; history of diabetic retinopathy and polyneuropathy and nephropathy with underlying chronic kidney disease; history of coronary artery disease with peripheral arterial disease and vasculopathy and a previous right transmetatarsal amputation; history of diabetic gastroparesis with multiple hospital readmissions for exacerbation of the gastroparesis, had also an extensive GI workup as noted; history of generalized anxiety and depression, on psychotropic medications; history of . FAMILY HISTORY: Positive for diabetes and hypertension. SOCIAL HISTORY: The patient has a supportive family. No known substance use. REVIEW OF SYSTEMS: As mentioned above. Admits to generalized body weakness with episodic bouts of dizziness and lightheadedness, worse on the day of admission. No chest pains or palpitations or PND. Her oral intake has been variable with nausea, dyspepsia, and vague upper abdominal pain. Also admits to marked polyuria, nocturia, and polydipsia; and history of episodic urinary incontinence. PHYSICAL EXAMINATION: GENERAL: This is an average-built female in no apparent distress. VITAL SIGNS: Blood pressure 140/80, pulse of beats per minute and regular, temperature 98, respirations 20, height is 5 feet 3 inches, weight is . HEENT: Head is normocephalic. Eyes anicteric with pink conjunctivae. Funduscopy not possible at this time. Ears, nose, and throat otherwise normal. NECK: Supple. Thyroid gland is normal in size. No carotid bruits or cervical adenopathy. CARDIOPULMONARY: Adynamic precordium. S1 and S2 rapid and regular. LUNGS: Clear to auscultation. ABDOMEN: Flat and soft with positive bowel sounds. EXTREMITIES: No peripheral edema. Pulses are +2 bilaterally. LABORATORY DATA: Chemistries shows a BUN of 24, sodium 131, potassium 3.4, chloride 92, CO2 of 30, glucose 463, and creatinine 1.3. ASSESSMENT: This is a 57-year-old female with uncontrolled and decompensated type 2 insulin-requiring diabetes with marked hyperglycemic acceleration with a witnessed tonic-clonic seizure event at home and is now being referred for diabetic evaluation and management. She also has diabetic microvascular complications of retinopathy, polyneuropathy, and nephropathy with underlying chronic kidney disease. She also has diabetic macrovascular complications of a previous transient ischemic event with no apparent residual weakness and now has a tonic-clonic seizure event with an apparent normal electroencephalogram done last year as noted from the emergency room note. She also has coronary artery disease with underlying peripheral arterial disease and vasculopathy with a previous right transmetatarsal amputation, having diabetic macrovascular complications as mentioned above. PLAN OF MANAGEMENT: As the patient has been kept n.p.o. at this time, we will order a very low dose coverage scale using Humalog insulin to obviate hypoglycemia. We will consider the addition of basal insulin with Levemir given as 10 units subcutaneously every 12 hours as indicated. We will obtain serial chemistries and supplement accordingly as needed. A hemoglobin A1c will be done to confirm prior glycemic control, and baseline thyroid function studies will be ordered. We will follow and advise accordingly. Tita Coe MD
[2018-05-20] MEDS: Insulin Lispro (humaLOG) LOW Coverage SC SCH ×3 (09:08→22:48)
[2018-05-20] MEDS: Midazolam 100 mg/100ml in NS 100 MG/100 ML SOL IV PRN ×2 (09:12→22:58)
--- NOTE | 2018-05-20 09:12 | RAD ---
Date of service: 05/20/2018 HISTORY: post intubation COMPARISON: 05/19/2018 FINDINGS: LUNGS: There is a new right-sided perihilar infiltrate most likely due to CHF. Pneumonia is possible. Endotracheal tube in satisfactory position PLEURA: No significant pleural effusion identified, no pneumothorax apparent. CARDIOVASCULAR: No aortic atherosclerotic calcification present. Normal cardiac size. No pulmonary vascular congestion. OSSEOUS STRUCTURES: No significant abnormalities. VISUALIZED UPPER ABDOMEN: Normal. OTHER FINDINGS: None. IMPRESSION: There is a new right-sided perihilar infiltrate most likely due to CHF. Pneumonia is possible. Endotracheal tube in satisfactory position
[2018-05-20] MEDS ORDERED: Pantoprazole 40 mg EC Tab PO SCH (10:00)
[2018-05-20] MEDS ORDERED: cefTRIAXone 1 gm 1 GM/100 ML BAG IVPB SCH (10:00)
[2018-05-20] MEDS: Venlafaxine 75 mg ER Cap PO SCH (10:15)
[2018-05-20] MEDS ORDERED: Magnesium Sulfate 1 gm in D5W 1 GM/100 ML BAG IVPB ONE (10:46)
--- NOTE | 2018-05-20 11:39 | CT ---
Date of service: 05/20/2018 PROCEDURE: CT HEAD WITHOUT CONTRAST. HISTORY: ams COMPARISON: Comparison is made to the previous study 05/19/2018 TECHNIQUE: Axial computed tomography images were obtained through the head/brain without intravenous contrast. Radiation dose: Total exam DLP = 881.45 mGy-cm. This CT exam was performed using one or more of the following dose reduction techniques: Automated exposure control, adjustment of the mA and/or kV according to patient size, and/or use of iterative reconstruction technique. FINDINGS: HEMORRHAGE: No intracranial hemorrhage. BRAIN: No mass effect or edema. No atrophy or chronic microvascular ischemic changes. VENTRICLES: Unremarkable. No hydrocephalus. CALVARIUM: Unremarkable. PARANASAL SINUSES: Unremarkable as visualized. No significant inflammatory changes. MASTOID AIR CELLS: Unremarkable as visualized. No inflammatory changes. OTHER FINDINGS: None. IMPRESSION: No evidence of acute intracranial hemorrhage mass effect or midline shift. No significant interval changes noted.
--- NOTE | 2018-05-20 12:05 | RAD ---
Date of service: 05/20/2018 PROCEDURE: Portable chest HISTORY: confirm NGT placement COMPARISON: TECHNIQUE: Single view of the lower chest and upper abdomen FINDINGS: The nasogastric tube is in satisfactory position IMPRESSION: Nasogastric tube and endotracheal tube in satisfactory position
--- NOTE | 2018-05-20 12:13 | CP.PCM.CON ---
History of Present Illness - History of Present Illness History of Present Illness: Nephrology Consultation Note: Assessment: critical Acute Kidney Injury (N17.9) likely hemodynamic injury due to BP fluctuations, sepsis urine retention likely neurogenic bladder ? seizure, aspiration pneumonia hyperglycemia with uncontrolled DM Anemia , hypokalemia hypomagnesemia hyponatremia Diabetic chronic Kidney Disease (E11.22) Hypertensive Chronic Kidney Disease (I12.9) Chronic Kidney Disease (N18.1) Stage with ? mg proteinuria (R80.9) likely due to DM Type 1 diabetes Mellitus (>20 years) complicated by neuropathy, retinopathy and gastroparesis neurogenic bladder hx of TIA, GERD, kidney stones, hx of hemicolectomy Plan No acute need for renal replacement therapy at this time. Hypertension control with meds as ordered. Patient not on ACEI/ARB due to ANTONIO, will consider to resume once ANTONIO resolves continue with IVF as ordered. supplement lytes as needed. changed to NS instead of 0.45% due ot hyponatremia Monitor Input/Output, daily weights and renal function with basic metabolic panel Check urine spot protein/creatinine and albumin/creatinine ratio Check for 25-OH vitamin D, iPTH, phosphorus level Anemia work up with TSAT/Ferritin and b12/folate level Dose meds/antibiotics for reduced GFR. Avoid fleets enema/magnesium based laxatives. Avoid nephrotoxins/NSAIDs/ iodinated contrast (unless needed emergent ly) Glycemic control Further work up/management as per primary team Thanks for allowing me to participate in care of your patient. Will follow patient with you. Please call if any Qs. had d/w team Dr Onesimo Guerra Office: [phone] Chief Complaint; seizure reason for consult: ANTONIO HPI: Pt is a 57 F with hx of Type 1 diabetes Mellitus (>20 years) complicated by neuropathy, retinopathy, gastroparesis, neurogenic bladder hypertension (years), TIA, GERD, kidney stones, hx of hemicolectomy presented with complaints of seizures and aspiration pneumonia. renal consult for ANTONIO evaluation and management. Denies OTC/herbal meds or NSAIDs Noted recent iodinated contrast exposure on 05/16/18. Noted obvious episodes of low BP (SBP 90s), high BP (SBP 200+) ROS: unable to obtain Physical Examination: General Appearance: comfortable, in no acute respiratory distress, intubated sedated Vitals reviewed and noted as below Head; Atraumatic, normocephalic ENT: orally intubated EYES: Pupils are equal, round and reactive to light accommodation. Eye muscles and extraocular movement intact. Sclera is anicteric. Neck; supple no lymphadenopathy, no thyromegaly or bruit Lungs: Normal respiratory rate/effort. Breath sounds bilateral equal and few b/l wheeze Heart: Normal rate. s1s2 normal. No rub or gallop. Extremities: no edema. No varicose veins Neurological: Patient is sedated Skin: Warm and dry. Normal turgor. No rash. Palpitation: Normal elasticity for age Abdomen: Abdomen is soft. Bowel sounds +. There is no abdominal tenderness, no guarding/rigidity no organomegaly Psych: deferred MSK: no joint tenderness or swelling. Digits and nails normal, no deformity : kidney not palpable has gay Labs/imaging reviewed. Past medical history, past surgical history, family history, social history, allergy reviewed and noted as below Family hx: no hx of CKD. Rest non-contributory work up: UA 3+ protein with moderate blood a1c 10.2% CT abdomen: normal adrenal. hx of b/l nephrolithiasis. distended urinary bladder Past Patient History - Infectious Disease Hx of Infectious Diseases: None - Tetanus Immunizations Tetanus Immunization: Unknown - Past Social History Smoking Status: Never Smoked - CARDIAC Hx Cardiac Disorders: Yes Hx Hypercholesterolemia: Yes Hx Hypertension: Yes Hx Peripheral Vascular Disease: Yes - PULMONARY Hx Respiratory Disorders: Yes Hx Chronic Obstructive Pulmonary Disease (COPD): Yes - NEUROLOGICAL Hx Neurological Disorder: Yes (syncope) HX Cerebrovascular Accident: Yes Hx Seizures: Yes Hx Transient Ischemic Attacks (TIA): Yes Other/Comment: diabetic neuropathy - HEENT Hx HEENT Problems: Yes Hx Cataracts: Yes (bilateral sx) - RENAL Hx Chronic Kidney Disease: No - ENDOCRINE/METABOLIC Hx Endocrine Disorders: Yes Hx Diabetes Mellitus Type 2: Yes - HEMATOLOGICAL/ONCOLOGICAL Hx Blood Disorders: Yes Hx Anemia: Yes (Blood Transfusion) Other/Comment: hypokalemia - INTEGUMENTARY Hx Dermatological Problems: Yes Other/Comment: abcess, r ft great toe crooked long toenails dry skin, multiple skin discoloratins r hand, redness to elbows, multiple small skin discolorations ble, fading bruises both knees - MUSCULOSKELETAL/RHEUMATOLOGICAL Hx Falls: Yes - GASTROINTESTINAL Hx Gastrointestinal Disorders: Yes Hx Gastroesophageal Reflux: Yes Other/Comment: gastroparesis, ibs. chronic abdominal pain - GENITOURINARY/GYNECOLOGICAL Hx Genitourinary Disorders: Yes Hx Incontinence: Yes - PSYCHIATRIC Hx Substance Use: No - SURGICAL HISTORY Hx Surgeries: Yes Hx Appendectomy: Yes Hx Cholecystectomy: Yes Hx Hysterectomy: Yes Hx Musculoskeletal Surgery: Yes (right transmetatarsal amputation) - ANESTHESIA Hx Anesthesia: Yes Hx Anesthesia Reactions: No Hx Malignant Hyperthermia: No Meds Allergies/Adverse Reactions: Allergies Allergy/AdvReac Type Severity Reaction Status Date / Time Narcotic/Dilaudid/Morphine AdvReac SHORTNESS Uncoded 05/19/18 09:50 OF BREATH - Medications Medications: Current Medications Clonidine HCl (Catapres-Tts2 0.2 Mg/24 Hr) 1 patch TD Q7D@1600 PATTI Last Admin: 05/19/18 16:08 Dose: 1 patch Dicyclomine HCl (Bentyl) 10 mg PO TID PATTI Last Admin: 05/19/18 18:17 Dose: Not Given Fentanyl (Duragesic) 1 patch TD Q72H PATTI Last Admin: 05/19/18 19:09 Dose: Not Given Gabapentin (Neurontin) 300 mg PO BID PATTI; Protocol Last Admin: 05/19/18 18:18 Dose: Not Given Ceftriaxone Sodium (Rocephin 1 Gram Ivpb) 1 gm in 100 mls @ 100 mls/hr IVPB DAILY [facility]; Protocol Piperacillin Sod/Tazobactam Sod (Zosyn 3.375 In Ns 100ml) 100 mls @ 25 mls/hr IVPB Q8 PATTI; Protocol Stop: 05/27/18 07:01 Last Admin: 05/20/18 07:27 Dose: 25 mls/hr Midazolam 100 mg/100ml in NS (Midazolam 100 Mg/100ml In Ns) 100 mg in 100 mls @ 7 mls/hr IV .[id number] PRN; Protocol PRN Reason: Seizure activity Last Admin: 05/20/18 09:12 Dose: 7 mg/hr, 7 mls/hr Potassium Chloride (Potassium Chloride 20 Meq/100 Ml) 20 meq in 100 mls @ 50 mls/hr IVPB Q2H PATTI Stop: 05/20/18 14:29 Sodium Chloride (Sodium Chloride 0.9%) 1,000 mls @ 100 mls/hr IV .Q10H [facility] Potassium Chloride (Potassium Chloride 20 Meq/100 Ml) 20 meq in 100 mls @ 50 mls/hr IVPB ONCE ONE Stop: 05/20/18 12:42 Propofol (Diprivan) 1,000 mg in 100 mls @ 1.796 mls/hr IV .Q24H PRN; Protocol PRN Reason: TITRATE PER MD ORDER Insulin Detemir (Levemir) 10 unit SC HS [facility] Last Admin: 05/20/18 03:37 Dose: Not Given Insulin Human Lispro (Humalog Low) 0 units SC ACHS [facility]; Protocol Last Admin: 05/20/18 09:08 Dose: 3 u Levalbuterol HCl (Xopenex) 1.25 mg IH [id number] [facility] Last Admin: 05/20/18 08:08 Dose: 1.25 mg Metoclopramide HCl (Reglan) 5 mg PO HS [facility] Last Admin: 05/19/18 23:41 Dose: Not Given Ondansetron HCl (Zofran Tab) 4 mg PO Q8 [facility] Last Admin: 05/19/18 23:41 Dose: Not Given Pantoprazole Sodium (Protonix Inj) 40 mg IVP DAILY [facility] Venlafaxine HCl (Effexor Xr) 75 mg PO DAILY [facility] Results - Vital Signs Recent Vital Signs: Last Vital Signs Temp 102.7 F H 05/20/18 04:20 Pulse 88 05/20/18 04:20 Resp 29 H 05/20/18 04:05 BP 140/68 05/20/18 04:00 Pulse Ox 98 05/20/18 04:20 - Labs Result Diagrams: 05/20/18 07:40 05/20/18 07:40 Labs: Laboratory Results - last 24 hr 05/19/18 05/19/18 05/20/18 15:42 22:00 01:00 WBC RBC Hgb Hct MCV MCH MCHC RDW Plt Count MPV pCO2 33 L 32 L pO2 85.0 85.0 HCO3 24.6 22.2 ABG pH 7.48 H 7.45 ABG Total CO2 25.6 23.2 ABG O2 Saturation 96.8 96.3 ABG O2 Content 14.1 L ABG Base Excess 1.6 -1.3 ABG Hemoglobin 10.4 L ABG Carboxyhemoglobin 0.3 L POC ABG HHb (Measured) 3.7 ABG Methemoglobin 0.5 ABG O2 Capacity 14.6 L ABG Potassium 3.0 L Hgb O2 Saturation 95.4 Sodium 134.0 Chloride 98.0 Glucose 460 H* D Lactate 1.2 FiO2 100.0 100.0 Potassium Carbon Dioxide Anion Gap BUN Creatinine Est GFR ( Amer) Est GFR (Non-Af Amer) POC Glucose (mg/dL) 362 H Random Glucose Calcium Phosphorus Magnesium Total Bilirubin AST ALT Alkaline Phosphatase Total Protein Albumin Globulin Albumin/Globulin Ratio TSH 3rd Generation Arterial Blood Potassium 3.0 L Urine Color Urine Appearance Urine pH Ur Specific [place] Urine Protein Urine Glucose (UA) Urine Ketones Urine Blood Urine Nitrate Urine Bilirubin Urine Urobilinogen Ur Leukocyte Esterase Urine RBC Urine WBC Ur Epithelial Cells Amorphous Sediment Urine Bacteria Urine Opiates Screen Urine Methadone Screen Ur Barbiturates Screen Ur Phencyclidine Scrn Ur Amphetamines Screen U Benzodiazepines Scrn U Oth Cocaine Metabols U Cannabinoids Screen Influenza Typ A,B (EIA) 05/20/18 05/20/18 05/20/18 02:12 02:12 07:30 WBC RBC Hgb Hct MCV MCH MCHC RDW Plt Count MPV pCO2 pO2 HCO3 ABG pH ABG Total CO2 ABG O2 Saturation ABG O2 Content ABG Base Excess ABG Hemoglobin ABG Carboxyhemoglobin POC ABG HHb (Measured) ABG Methemoglobin ABG O2 Capacity ABG Potassium Hgb O2 Saturation Sodium Chloride Glucose Lactate FiO2 Potassium Carbon Dioxide Anion Gap BUN Creatinine Est GFR ( Amer) Est GFR (Non-Af Amer) POC Glucose (mg/dL) Random Glucose Calcium Phosphorus Magnesium Total Bilirubin AST ALT Alkaline Phosphatase Total Protein Albumin Globulin Albumin/Globulin Ratio TSH 3rd Generation Arterial Blood Potassium Urine Color Yellow Urine Appearance Clear Urine pH 7.0 Ur Specific [place] 1.025 Urine Protein >=300 H Urine Glucose (UA) >=1000 Urine Ketones Negative Urine Blood Small H Urine Nitrate Negative Urine Bilirubin Negative Urine Urobilinogen 0.2 Ur Leukocyte Esterase Negative Urine RBC 1 - 3 H Urine WBC 0 - 2 Ur Epithelial Cells 0 - 2 Amorphous Sediment Few Urine Bacteria Occ Urine Opiates Screen Negative Urine Methadone Screen Negative Ur Barbiturates Screen Negative Ur Phencyclidine Scrn Negative Ur Amphetamines Screen Negative U Benzodiazepines Scrn Positive H U Oth Cocaine Metabols Negative U Cannabinoids Screen Negative Influenza Typ A,B (EIA) Negative for flu a/b 05/20/18 05/20/18 05/20/18 07:40 07:40 07:40 WBC 3.9 L D RBC 4.02 Hgb 10.2 L Hct 30.4 L MCV 75.6 L MCH 25.4 MCHC 33.6 RDW 13.9 Plt Count 208 MPV 10.2 pCO2 pO2 HCO3 ABG pH ABG Total CO2 ABG O2 Saturation ABG O2 Content ABG Base Excess ABG Hemoglobin ABG Carboxyhemoglobin POC ABG HHb (Measured) ABG Methemoglobin ABG O2 Capacity ABG Potassium Hgb O2 Saturation Sodium 132 Chloride 99 Glucose Lactate FiO2 Potassium 2.8 L* D Carbon Dioxide 23 Anion Gap 13 BUN 33 H Creatinine 1.8 H Est GFR ( Amer) 35 Est GFR (Non-Af Amer) 29 POC Glucose (mg/dL) Random Glucose 317 H* D Calcium 8.2 L Phosphorus 4.5 Magnesium 1.8 Total Bilirubin 0.5 AST 33 ALT 24 Alkaline Phosphatase 111 Total Protein 5.1 L Albumin 2.6 L Globulin 2.5 Albumin/Globulin Ratio 1.0 L TSH 3rd Generation 0.94 Arterial Blood Potassium Urine Color Urine Appearance Urine pH Ur Specific [place] Urine Protein Urine Glucose (UA) Urine Ketones Urine Blood Urine Nitrate Urine Bilirubin Urine Urobilinogen Ur Leukocyte Esterase Urine RBC Urine WBC Ur Epithelial Cells Amorphous Sediment Urine Bacteria Urine Opiates Screen Urine Methadone Screen Ur Barbiturates Screen Ur Phencyclidine Scrn Ur Amphetamines Screen U Benzodiazepines Scrn U Oth Cocaine Metabols U Cannabinoids Screen Influenza Typ A,B (EIA) 05/20/18 05/20/18 07:55 08:30 WBC RBC Hgb Hct MCV MCH MCHC RDW Plt Count MPV pCO2 31 L pO2 167.0 H HCO3 21.1 ABG pH 7.44 ABG Total CO2 22.1 ABG O2 Saturation 97.5 ABG O2 Content 14.4 L ABG Base Excess -2.4 L ABG Hemoglobin 10.3 L ABG Carboxyhemoglobin 0.1 L POC ABG HHb (Measured) 2.5 ABG Methemoglobin 0.2 ABG O2 Capacity 14.8 L ABG Potassium Hgb O2 Saturation 97.2 Sodium Chloride Glucose Lactate FiO2 100.0 Potassium Carbon Dioxide Anion Gap BUN Creatinine Est GFR ( Amer) Est GFR (Non-Af Amer) POC Glucose (mg/dL) 299 H Random Glucose Calcium Phosphorus Magnesium Total Bilirubin AST ALT Alkaline Phosphatase Total Protein Albumin Globulin Albumin/Globulin Ratio TSH 3rd Generation Arterial Blood Potassium Urine Color Urine Appearance Urine pH Ur Specific [place] Urine Protein Urine Glucose (UA) Urine Ketones Urine Blood Urine Nitrate Urine Bilirubin Urine Urobilinogen Ur Leukocyte Esterase Urine RBC Urine WBC Ur Epithelial Cells Amorphous Sediment Urine Bacteria Urine Opiates Screen Urine Methadone Screen Ur Barbiturates Screen Ur Phencyclidine Scrn Ur Amphetamines Screen U Benzodiazepines Scrn U Oth Cocaine Metabols U Cannabinoids Screen Influenza Typ A,B (EIA)
--- NOTE | 2018-05-20 12:18 | CP.PCM.CON ---
History of Present Illness - History of Present Illness History of Present Illness: 57 year old female with PMH of HTN, DM, gastroparesis, history of TIA, history of esophageal ulcers, S/P cholecystectomy, S/P , S/P hysterectomy, S/P right foot partial amputation came in to [facility] because of apparent witnessed ge neralized tonic-clonic seizure at home. Afterwards the patient was noted to be poorly responsive and she was brought in to the ED. She was noted to have foaming in the mouth during the seizure episode. There was no note of fever at home but the patient developed fever during this admission. She was also intubated because of protection of her airway. Full review of systems is unobtainable because of the patient's condition. Infectious diseases consult is requested to further evaluate and manage. Review of Systems - Review of Systems All systems: reviewed and no additional remarkable complaints except (as per HPI) Past Patient History - Infectious Disease Hx of Infectious Diseases: None - Tetanus Immunizations Tetanus Immunization: Unknown - Past Social History Smoking Status: Never Smoked - CARDIAC Hx Cardiac Disorders: Yes Hx Hypercholesterolemia: Yes Hx Hypertension: Yes Hx Peripheral Vascular Disease: Yes - PULMONARY Hx Respiratory Disorders: Yes Hx Chronic Obstructive Pulmonary Disease (COPD): Yes - NEUROLOGICAL Hx Neurological Disorder: Yes (syncope) HX Cerebrovascular Accident: Yes Hx Seizures: Yes Hx Transient Ischemic Attacks (TIA): Yes Other/Comment: diabetic neuropathy - HEENT Hx HEENT Problems: Yes Hx Cataracts: Yes (bilateral sx) - RENAL Hx Chronic Kidney Disease: No - ENDOCRINE/METABOLIC Hx Endocrine Disorders: Yes Hx Diabetes Mellitus Type 2: Yes - HEMATOLOGICAL/ONCOLOGICAL Hx Blood Disorders: Yes Hx Anemia: Yes (Blood Transfusion) Other/Comment: hypokalemia - INTEGUMENTARY Hx Dermatological Problems: Yes Other/Comment: abcess, r ft great toe crooked long toenails dry skin, multiple skin discoloratins r hand, redness to elbows, multiple small skin discolorations ble, fading bruises both knees - MUSCULOSKELETAL/RHEUMATOLOGICAL Hx Falls: Yes - GASTROINTESTINAL Hx Gastrointestinal Disorders: Yes Hx Gastroesophageal Reflux: Yes Other/Comment: gastroparesis, ibs. chronic abdominal pain - GENITOURINARY/GYNECOLOGICAL Hx Genitourinary Disorders: Yes Hx Incontinence: Yes - PSYCHIATRIC Hx Substance Use: No - SURGICAL HISTORY Hx Surgeries: Yes Hx Appendectomy: Yes Hx Cholecystectomy: Yes Hx Hysterectomy: Yes Hx Musculoskeletal Surgery: Yes (right transmetatarsal amputation) - ANESTHESIA Hx Anesthesia: Yes Hx Anesthesia Reactions: No Hx Malignant Hyperthermia: No Meds Allergies/Adverse Reactions: Allergies Allergy/AdvReac Type Severity Reaction Status Date / Time Narcotic/Dilaudid/Morphine AdvReac SHORTNESS Uncoded 05/19/18 09:50 OF BREATH - Medications Medications: Current Medications Clonidine HCl (Catapres-Tts2 0.2 Mg/24 Hr) 1 patch TD Q7D@1600 [facility] Last Admin: 05/19/18 16:08 Dose: 1 patch Dicyclomine HCl (Bentyl) [address] [facility] Last Admin: 05/19/18 18:17 Dose: Not Given Fentanyl (Duragesic) [address] [facility] Last Admin: 05/19/18 19:09 Dose: Not Given Gabapentin (Neurontin) 300 mg PO BID [facility]; Protocol Last Admin: 05/19/18 18:18 Dose: Not Given Sodium Chloride (Sodium Chloride 0.45%) 1,000 mls @ 60 mls/hr IV .[id number] [facility] Last Admin: 05/19/18 16:07 Dose: 60 mls/hr Ceftriaxone Sodium (Rocephin 1 Gram Ivpb) 1 gm in 100 mls @ 100 mls/hr IVPB DAILY [facility]; Protocol Vancomycin HCl (Vancomycin 1gm) 1 gm in 250 mls @ 167 mls/hr IVPB Q12H [facility]; Protocol Insulin Detemir (Levemir) [address] [facility] Last Admin: 05/20/18 03:37 Dose: Not Given Insulin Human Lispro (Humalog Low) [address] [facility]; Protocol Losartan Potassium (Cozaar) [address] [facility] Metoclopramide HCl (Reglan) [address] [facility] Last Admin: 05/19/18 23:41 Dose: Not Given Ondansetron HCl (Zofran Tab) [address] [facility] Last Admin: 05/19/18 23:41 Dose: Not Given Pantoprazole Sodium (Protonix Inj) [address] [facility] Last Admin: 05/20/18 00:50 Dose: 40 mg Venlafaxine HCl (Effexor Xr) [address] [facility] Physical Exam - Constitutional Appears: Other (intubated, sedated) - ENT Exam Additional comments: ET tube in place - Respiratory Exam Respiratory Exam: Decreased Breath Sounds - Cardiovascular Exam Cardiovascular Exam: +S1, +S2 - GI/Abdominal Exam GI & Abdominal Exam: Soft. absent: Tenderness Results - Vital Signs Recent Vital Signs: Last Vital Signs Temp 102.7 F H 05/20/18 04:20 Pulse 88 05/20/18 04:20 Resp 29 H 05/20/18 04:05 BP 140/68 05/20/18 04:00 Pulse Ox 98 05/20/18 04:20 - Labs Result Diagrams: 05/20/18 07:40 05/20/18 07:40 Labs: Laboratory Results - last 24 hr 05/19/18 05/19/18 05/19/18 09:39 10:18 10:18 WBC 8.4 D RBC 4.23 Hgb 10.6 L Hct 32.4 L MCV 76.6 L MCH 25.1 MCHC 32.7 RDW 13.8 Plt Count 216 MPV 9.9 Gran % 77.3 H Lymph % (Auto) 15.4 L [place] % (Auto) 3.4 Eos % (Auto) 3.8 Baso % (Auto) 0.1 Gran # 6.51 H Lymph # (Auto) 1.3 [place] # (Auto) 0.3 Eos # (Auto) 0.3 Baso # (Auto) 0.01 pCO2 pO2 HCO3 ABG pH ABG Total CO2 ABG O2 Saturation ABG O2 Content ABG Base Excess ABG Hemoglobin ABG Carboxyhemoglobin POC ABG HHb (Measured) ABG Methemoglobin ABG O2 Capacity ABG Potassium Hgb O2 Saturation Glucose Lactate FiO2 Sodium 131 L Potassium 3.8 Chloride 96 L Carbon Dioxide 30 Anion Gap 9 L BUN 24 H Creatinine 1.4 H Est GFR ( Amer) 47 Est GFR (Non-Af Amer) 39 POC Glucose (mg/dL) 401 H* Random Glucose 463 H* D Calcium 8.3 L Magnesium 1.5 L Total Bilirubin 0.2 AST 26 ALT 32 Alkaline Phosphatase 140 H D Total Creatine Kinase 205 Total Protein 6.1 Albumin 3.2 Globulin 2.9 Albumin/Globulin Ratio 1.1 Arterial Blood Potassium Urine Color Urine Appearance Urine pH Ur Specific [place] Urine Protein Urine Glucose (UA) Urine Ketones Urine Blood Urine Nitrate Urine Bilirubin Urine Urobilinogen Ur Leukocyte Esterase Urine RBC Urine WBC Ur Epithelial Cells Amorphous Sediment Urine Bacteria Urine Opiates Screen Urine Methadone Screen Ur Barbiturates Screen Ur Phencyclidine Scrn Ur Amphetamines Screen U Benzodiazepines Scrn U Oth Cocaine Metabols U Cannabinoids Screen Alcohol, Quantitative 05/19/18 05/19/18 05/19/18 10:18 15:42 22:00 WBC RBC Hgb Hct MCV MCH MCHC RDW Plt Count MPV Gran % Lymph % (Auto) [place] % (Auto) Eos % (Auto) Baso % (Auto) Gran # Lymph # (Auto) [place] # (Auto) Eos # (Auto) Baso # (Auto) pCO2 33 L pO2 85.0 HCO3 24.6 ABG pH 7.48 H ABG Total CO2 25.6 ABG O2 Saturation 96.8 ABG O2 Content ABG Base Excess 1.6 ABG Hemoglobin ABG Carboxyhemoglobin POC ABG HHb (Measured) ABG Methemoglobin ABG O2 Capacity ABG Potassium 3.0 L Hgb O2 Saturation Glucose 460 H* D Lactate 1.2 FiO2 100.0 Sodium 134.0 Potassium Chloride 98.0 Carbon Dioxide Anion Gap BUN Creatinine Est GFR ( Amer) Est GFR (Non-Af Amer) POC Glucose (mg/dL) 362 H Random Glucose Calcium Magnesium Total Bilirubin AST ALT Alkaline Phosphatase Total Creatine Kinase Total Protein Albumin Globulin Albumin/Globulin Ratio Arterial Blood Potassium 3.0 L Urine Color Urine Appearance Urine pH Ur Specific [place] Urine Protein Urine Glucose (UA) Urine Ketones Urine Blood Urine Nitrate Urine Bilirubin Urine Urobilinogen Ur Leukocyte Esterase Urine RBC Urine WBC Ur Epithelial Cells Amorphous Sediment Urine Bacteria Urine Opiates Screen Urine Methadone Screen Ur Barbiturates Screen Ur Phencyclidine Scrn Ur Amphetamines Screen U Benzodiazepines Scrn U Oth Cocaine Metabols U Cannabinoids Screen Alcohol, Quantitative < 10 05/20/18 05/20/18 05/20/18 01:00 02:12 02:12 WBC RBC Hgb Hct MCV MCH MCHC RDW Plt Count MPV Gran % Lymph % (Auto) [place] % (Auto) Eos % (Auto) Baso % (Auto) Gran # Lymph # (Auto) [place] # (Auto) Eos # (Auto) Baso # (Auto) pCO2 32 L pO2 85.0 HCO3 22.2 ABG pH 7.45 ABG Total CO2 23.2 ABG O2 Saturation 96.3 ABG O2 Content 14.1 L ABG Base Excess -1.3 ABG Hemoglobin 10.4 L ABG Carboxyhemoglobin 0.3 L POC ABG HHb (Measured) 3.7 ABG Methemoglobin 0.5 ABG O2 Capacity 14.6 L ABG Potassium Hgb O2 Saturation 95.4 Glucose Lactate FiO2 100.0 Sodium Potassium Chloride Carbon Dioxide Anion Gap BUN Creatinine Est GFR ( Amer) Est GFR (Non-Af Amer) POC Glucose (mg/dL) Random Glucose Calcium Magnesium Total Bilirubin AST ALT Alkaline Phosphatase Total Creatine Kinase Total Protein Albumin Globulin Albumin/Globulin Ratio Arterial Blood Potassium Urine Color Yellow Urine Appearance Clear Urine pH 7.0 Ur Specific [place] 1.025 Urine Protein >=300 H Urine Glucose (UA) >=1000 Urine Ketones Negative Urine Blood Small H Urine Nitrate Negative Urine Bilirubin Negative Urine Urobilinogen 0.2 Ur Leukocyte Esterase Negative Urine RBC 1 - 3 H Urine WBC 0 - 2 Ur Epithelial Cells 0 - 2 Amorphous Sediment Few Urine Bacteria Occ Urine Opiates Screen Negative Urine Methadone Screen Negative Ur Barbiturates Screen Negative Ur Phencyclidine Scrn Negative Ur Amphetamines Screen Negative U Benzodiazepines Scrn Positive H U Oth Cocaine Metabols Negative U Cannabinoids Screen Negative Alcohol, Quantitative Assessment & Plan - Assessment and Plan (Free Text) Plan: Assessment systemic inflammatory response syndrome after seizure episode, now with VDRF R/O sepsis due to aspiration pneumonia history of HCAP history of sepsis due to right lower lobe HCAP, clinically improved and S/P treatment history of UTI with Klebsiella oxytoca gastroparesis HTN DM history of TIA history of esophageal ulcers S/P cholecystectomy S/P S/P hysterectomy S/P right foot partial amputation Plan started with a dose of IV Vancomycin and started Zosyn pending blood, sputum cx, PCT; will need repeat CXR tomorrow discussed with Dr. Dent follow up Neurology evaluation and recommendations
--- NOTE | 2018-05-20 14:04 | PN ---
DATE: 05/20/2018 SUBJECTIVE: She is not doing well. She is in intensive care unit. She is now intubated and on the ventilator. MEDICATIONS: Bentyl, clonidine, Cozaar, Duragesic, Effexor, insulin, Levemir, Neurontin, Protonix, Reglan, Rocephin, IV fluids, vancomycin, Zosyn, Zofran. PHYSICAL EXAMINATION: VITAL SIGNS: She had 102.7 temperature, 88 pulse, respiratory rate, 100% O2 sat on the ventilator. HEAD: Atraumatic, normocephalic. HEART: Regular rate. LUNGS: Decreased breath sounds. ABDOMEN: Soft. EXTREMITIES: No edema. EXTREMITIES: She is very lethargic, not waking up. LABORATORY DATA: White count 3.9, hemoglobin 10.2, hematocrit 30.4, platelets of 208. Sodium 132 and potassium 2.8, needs to be replaced. BUN 33, creatinine 1.8, but the BUN is getting worse. Last blood sugar was 299, calcium 8.2, phosphorous 4.5, magnesium 1.8, total bili 0.5, AST 33, ALT 24, alk phos 111, total protein is 5.1. ASSESSMENT AND PLAN: She is the worst I have seen. She is in very critical condition. She is being seen by numerous doctors, Pulmonary, Neurology, Endocrinology. We are going to get Renal involved. She has seizure disorder respiratory insufficiency, right lung pneumonia, encephalopathy, chronic obstructive pulmonary disease and diabetes. We will continue with aggressive treatment and care, on the ventilator, very poor prognosis. Josafat Dent DO MTDD
--- NOTE | 2018-05-20 15:32 | US ---
HISTORY: Leg pain and swelling. Evaluate for DVT PHYSICIAN(S): Carter Cobian MD. TECHNIQUE: Duplex sonography and color-flow Doppler with graded compression were used to evaluate the deep venous systems of both lower extremities. FINDINGS: The visualized deep venous systems of both lower extremities are sonographically normal and compressible. Normal wave forms and augmentation are seen. There is no sonographic evidence for deep venous thrombosis in the visualized segments of both lower extremities. IMPRESSION: No sonographic evidence for deep venous thrombosis in the visualized segments of both lower extremities.
--- NOTE | 2018-05-20 17:02 | CARD ---
APPROVED REPORT Date of service: 05/20/2018 EXAM: Two-dimensional and M-mode echocardiogram with Doppler and color Doppler. INDICATION RVSP/LVFX 2D DIMENSIONS Left Atrium (2D)3.5 (1.6-4.0cm)IVSd1.3 (0.7-1.1cm) LVDd3.6 (3.9-5.9cm)PWd1.4 (0.7-1.1cm) LVDs2.5 (2.5-4.0cm)FS (%) 30.5 % LVEF (%)58.9 (>50%) M-Mode DIMENSIONS Aortic Root2.90 (2.2-3.7cm)Aortic Cusp Exc.1.80 (1.5-2.0cm) Aortic Valve AoV Peak Jnuqdzyr787.0cm/Ian Peak GR.7mmHg Mitral Valve MV E Xrnklsgs38.9cm/sMV A Iquyigtq85.4cm/sE/A ratio0.9 TDI Lateral E' Peak V7.90cm/sMedial E' Peak V4.97cm/sE/Lateral E'10.5 E/Medial E'16.7 Pulmonary Valve PV Peak Zmqwomdc05.3cm/sPV Peak Grad.1mmHg Tricuspid Valve TR Peak Snxzrwst911jv/sRAP [id number] Peak Gr.60mmHg [id number] LEFT VENTRICLE The left ventricle is normal size. There is mild concentric left ventricular hypertrophy. The left ventricular function is normal. The left ventricular ejection fraction is within the normal range. There is normal LV segmental wall motion. Transmitral Doppler flow pattern is Grade I-abnormal relaxation pattern. RIGHT VENTRICLE The right ventricle is normal size. There is normal right ventricular wall thickness. The right ventricular systolic function is normal. ATRIA The left atrium size is normal. The right atrium size is normal. The interatrial septum is intact with no evidence for an atrial septal defect. AORTIC VALVE The aortic valve is normal in structure. No aortic regurgitation is present. There is no aortic valvular stenosis. MITRAL VALVE The mitral valve is normal in structure. There is no mitral valve regurgitation noted. There is no mitral valve stenosis. TRICUSPID VALVE There is moderate tricuspid regurgitation. There is severe pulmonary hypertension. PULMONIC VALVE The pulmonary valve is normal in structure. There is no pulmonic valvular regurgitation. GREAT VESSELS The aortic root is normal in size. The IVC collapses <50% with inspiration. PERICARDIAL EFFUSION There is a trace pericardial effusion. <Conclusion> There is mild concentric left ventricular hypertrophy. The left ventricular function is normal. The left ventricular ejection fraction is within the normal range. There is normal LV segmental wall motion. Transmitral Doppler flow pattern is Grade I-abnormal relaxation pattern. There is moderate tricuspid regurgitation. There is severe pulmonary hypertension.
[2018-05-20 18:17] LABS: CALCIUM 7.5 mg/dL (8.4-10.5)
[2018-05-20] MEDS ORDERED: Potassium Chloride 20 mEq ER Tab PO STA (18:36)
[2018-05-20] MEDS ORDERED: Potassium Chloride 40 mEq/30 ml LIQ UD PO ONE (18:40)
[2018-05-20 22:05] LABS: CALCIUM 7.3 mg/dL (8.4-10.5)
[2018-05-20] MEDS: Propofol 10 mg/ml 1,000 MG/100 ML VIAL IV PRN (22:38)
[2018-05-20] MEDS: Insulin Detemir 100 units/ml Vial (Levemir) SC SCH (22:52)
[2018-05-20] MEDS: Sodium Chloride 0.9% 1,000 ML IV SCH (23:57)
[2018-05-21] MEDS: Levalbuterol 1.25 MG/3 ML Inhal Soln UD IH SCH ×4 (01:44→20:40)
[2018-05-21] MEDS: Piperacillin/Tazobact 3.375 gm 100 ML IVPB SCH ×3 (05:15→22:45)
[2018-05-21 05:43] LABS: ARTERIAL BLOOD GAS O2 CAPACITY 12.8 mL/dl (16-24); ARTERIAL BLOOD GAS O2 CONTENT 12.4 ML/dl (15-23); ARTERIAL BLOOD GAS O2 SAT 96.6 % (95-98); ARTERIAL BLOOD GAS PCO2 30 mm/Hg (35-45); ARTERIAL BLOOD GAS PH 7.41 (7.35-7.45); ARTERIAL BLOOD GAS TCO2 19.9 mmol.L (22-28)
[2018-05-21 06:36] LABS: HEMOGLOBIN 8.4 g/dL (12.0-16.0); MEAN CELL VOLUME 75.4 fl (80.0-105.0); MEAN CORPUSCULAR HEMOGLOBIN 25.1 pg (25.0-35.0); MEAN CORPUSCULAR HGB CONC 33.3 g/dl (31.0-37.0); MEAN PLATELET VOLUME 10.1 fl (7.0-11.0); RBC 3.34 10^6/uL (3.5-6.1); RED CELL DISTRIBUTION WIDTH 14.5 % (11.5-14.5)
[2018-05-21 07:09] LABS: ALB/GLOB RATIO 0.9 (1.1-1.8); ALBUMIN 2.1 g/dL (3.0-4.8); CALCIUM 7.4 mg/dL (8.4-10.5)
[2018-05-21] MEDS: Insulin Lispro (humaLOG) LOW Coverage SC SCH ×4 (07:45→22:22)
[2018-05-21] MEDS: Midazolam 100 mg/100ml in NS 100 MG/100 ML SOL IV PRN (08:00)
--- NOTE | 2018-05-21 08:32 | PCM.VEEG ---
Video EEG - Procedure Start Date: 05/20/18 Start Time: 14:30 End Date: 05/21/18 End Time: 07:55 Technical Summary: DATA ACQUISITION: This was a multichannel inpatient video-EEG, a minimum of 22 channels were uti lized, performed in accordance with recommendations specified by the [place] [employer] Society (Chaya Guardado et al. ACNS Guideline 1: Minimum Technical Requirements for Performing Clinical Electroencephalography. Journal of Clinical Neurophysiology 2016;33:303-7). The 10-20 electrode placement system was utilized in accordance with guidelines detailed by the International Federation of Clinical Neurophysiology (Josue Collazo et al. The Ten-Twenty Electrode System of the International Federation. Recommendations for the Practice of Clinical Neurophysiology: Guidelines of the International Federation of Clinical Physiology 1999; EEG Suppl. 52.). DATA REVIEW / SPIKE DETECTION / DIGITAL ANALYSIS: The entire EEG was scanned and reviewed. Synchronized audio and video recording were reviewed at the time of each alarm and whenever an abnormality or suspicious activity was noted. The entire recording was analyzed utilizing an automated digital spike and seizure analysis program and all automatic spike and seizure detections were manually reviewed. A compressed spectral array was displayed and reviewed alongside the raw EEG tracings. In addition, further analysis of the EEG was performed when abnormalities were identified, including montage changes, dipole source localization, and frequency band identification. Video portion of the study is necessary to correlate abnormal EEG activity with clinical behavior. This study was attended 24 hours per day. - Interpretation Description of the study: Indication; Status Epilepticus EEG Finding during wakefulness: During the entire study was not discernible awake EEG background, during this time the EEG showed diffuse bilateral attenuation with frequencies in the 4 to 5 Hz. When she was stimulated there was minimal reactivity of the EEG. There was intermittent bifrontal rhythmic delta slowing at 3 to 4 Hz lasting 3 to 6 seconds mainly seen throughout the record. EEG Finding during sleep: Normal sleep architecture was not seen, when the patient was clinically asleep the EEG showed diffuse bilateral slowing at 4 to 5 Hz. Interictal non-epileptiform abnormalities: Left temporal intermittent slowing. Interictal epileptiform abnormalities: Frequent left temporal spikes and sharps maximally at F7, seen in isolation or in runs. Ictal epileptiform abnormalities: No seizures Not in status epilepticus - Impression Impression: This is an abnormal video EEG, monitoring study, due to the presence of: 1- Moderate background slowing/attenuation . 2- Left temporal interictal epileptifrom discharges 3- Left temporal slowing. INTERPRETATION: The above mentioned findings are in keeping with a focal structural abnormality involving the left temporal region , in keeping with a structural abnormality in the same area. The findings are also in keeping with a moderate non specific diffuse disturbance of cortical activity. This is in keeping with a diffuse gerardo matter dysfunction. The findings do not suggest a specific etiology. 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 However in a patient with acute alter mental status, other etiologies are possible, like herpes encephalitis, this needs to be correlated clinically, and with CSF analysis as well as Brain MRI, if clinically warranted. Findings discussed with Dr Knight
--- NOTE | 2018-05-21 09:03 | PN ---
DATE: 05/21/2018 SUBJECTIVE: The patient is on ventilator and sedated with Diprivan. Her FiO2 is 50%. The patient is getting an EEG at this time. Patient has had no seizures overnight and is on Keppra as this time. PHYSICAL EXAMINATION: VITAL SIGNS: Note that her temperature is 97.7, her pulse is 78, respirations are 24 and BP is 102/55. SKIN: Warm and dry. HEENT: Head is atraumatic, normocephalic. Eyes reactive to light. Ears, nose and throat seem to be within normal limits. NECK: Supple. No JVD. No thyroid enlargement or lymph nodes. HEART: Regular rate and rhythm. Normal S1, S2. LUNGS: Reveal mild rhonchi bilaterally. ABDOMEN: Soft, nontender, decreased bowel sounds. GENITALIA AND RECTAL: Deferred. MUSCULOSKELETAL: No abnormalities. EXTREMITIES: Reveal 1+ lower extremity edema with partial amputation of the right foot. NEUROLOGIC: She is sedated on the ventilator. LABORATORY DATA; As far as laboratories, her white count is 3.0, hemoglobin is 8.4 and hematocrit is 25.2 with platelets of 160,000. Arterial blood gas reveals a pH of 7.41, pCO2 of 30, pO2 of 92. Sodium is 133, potassium 3.3, chloride 103, CO2 of 20 with BUN of 44, creatinine of 1.9 and a glucose of 182. As far as her chest x-ray reveals bilateral fluffy infiltrates. IMPRESSION: This patient has respiratory failure with ventilator support. She has aspiration pneumonia. The patient has seizure disorder and hyperglycemia. It is noted that she has a history of hypertension, diabetes, gastroparesis, transient ischemic attack as well as esophageal ulcers. It is also noted at this time that she has anemia and acute renal insufficiency. As far as our plan, we will continue ventilator support and decrease the FiO2 as tolerated. The patient is on sedation with Diprivan. The patient is getting Bentyl as well as clonidine, Duragesic, getting insulin as well as her Levemir. She is on Neurontin, Protonix, Reglan and Xopenex as well as Zosyn and midazolam. We will continue to treat aggressively along with the other consultants and the primary care doctor. Andrea Hill MD [facility] # [id number]
[2018-05-21] MEDS ORDERED: Sodium Chloride 0.9% 1,000 ML IV STA (09:18)
[2018-05-21 10:29] LABS: INR 1.24; PARTIAL THROMBOPLASTIN TIME 27.9 Seconds (25.1-36.5); PROTHROMBIN TIME 14.3 SECONDS (9.4-12.5)
--- NOTE | 2018-05-21 12:15 | RAD ---
Date of service: 05/21/2018 HISTORY: Confirm nasogastric tube placement COMPARISON: May 20 2018. FINDINGS: LUNGS: Stable bilateral perihilar infiltrates right greater than left. PLEURA: No significant pleural effusion identified, no pneumothorax apparent. CARDIOVASCULAR: No atherosclerotic calcification present No significant interval change compared to the prior examination(s). OSSEOUS STRUCTURES: No significant abnormalities. VISUALIZED UPPER ABDOMEN: Normal. OTHER FINDINGS: Stable position of endotracheal tube. Satisfactory position of nasogastric tube. The stomach is decompressed compared to the prior study. IMPRESSION: Stable/satisfactory position of support apparatus. Stable bilateral infiltrates.
--- NOTE | 2018-05-21 12:20 | CP.PCM.CON ---
History of Present Illness - History of Present Illness History of Present Illness: General Surgery consult note for Dr. Blandon Patient is a 57 yr old female with PMH of HTN, uncontrolled type 1 DM (A1c 12.9) complicated by retinopathy, polyneuropathy, vasculopathy, gastroparesis, prior TIA, depression/anxiety. Pt was admitted after witnessed seizure like episode. Patient became hypotensive this morning and it was determined that she would require pressor support for BP. 1.5 L bolus was given prior to central line evaluation, pt continued to have low pressures central line was placed. PMH:HTN, uncontrolled type 1 DM (A1c 12.9) complicated by retinopathy, polyneuropathy, vasculopathy, gastroparesis, prior TIA, depression/anxiety PSHx: Right hemicolectomy with ileocolonic anastamosis for benign tumor (~20 years ago), cholecystectomy, appendectomy, hysterectomy, , hernia repair, right foot transmetatarsal amputation, I&D right thigh abscess FHx: Mother - gastric cancer; Sister - Crohn's disease Social: Denies tobacco, EtOH or illicit drug use Endo: 11/15 - EGD - bile gastritis, gastric polyps Review of Systems - Review of Systems Systems not reviewed;Unavailable: Acuity of Condition, Intubated Past Patient History - Infectious Disease Hx of Infectious Diseases: None - Tetanus Immunizations Tetanus Immunization: Unknown - Past Social History Smoking Status: Never Smoked - CARDIAC Hx Cardiac Disorders: Yes Hx Hypercholesterolemia: Yes Hx Hypertension: Yes Hx Peripheral Vascular Disease: Yes - PULMONARY Hx Respiratory Disorders: Yes Hx Chronic Obstructive Pulmonary Disease (COPD): Yes - NEUROLOGICAL Hx Neurological Disorder: Yes (syncope) HX Cerebrovascular Accident: Yes Hx Seizures: Yes Hx Transient Ischemic Attacks (TIA): Yes Other/Comment: diabetic neuropathy - HEENT Hx HEENT Problems: Yes Hx Cataracts: Yes (bilateral sx) - RENAL Hx Chronic Kidney Disease: No - ENDOCRINE/METABOLIC Hx Endocrine Disorders: Yes Hx Diabetes Mellitus Type 2: Yes - HEMATOLOGICAL/ONCOLOGICAL Hx Blood Disorders: Yes Hx Anemia: Yes (Blood Transfusion) Other/Comment: hypokalemia - INTEGUMENTARY Hx Dermatological Problems: Yes Other/Comment: abcess, r ft great toe crooked long toenails dry skin, multiple skin discoloratins r hand, redness to elbows, multiple small skin discolorations ble, fading bruises both knees - MUSCULOSKELETAL/RHEUMATOLOGICAL Hx Falls: Yes - GASTROINTESTINAL Hx Gastrointestinal Disorders: Yes Hx Gastroesophageal Reflux: Yes Other/Comment: gastroparesis, ibs. chronic abdominal pain - GENITOURINARY/GYNECOLOGICAL Hx Genitourinary Disorders: Yes Hx Incontinence: Yes - PSYCHIATRIC Hx Substance Use: No - SURGICAL HISTORY Hx Surgeries: Yes Hx Appendectomy: Yes Hx Cholecystectomy: Yes Hx Hysterectomy: Yes Hx Musculoskeletal Surgery: Yes (right transmetatarsal amputation) - ANESTHESIA Hx Anesthesia: Yes Hx Anesthesia Reactions: No Hx Malignant Hyperthermia: No Meds Allergies/Adverse Reactions: Allergies Allergy/AdvReac Type Severity Reaction Status Date / Time vancomycin AdvReac Intermediate RASH Verified 05/20/18 19:35 Narcotic/Dilaudid/Morphine AdvReac Intermediate SHORTNESS Uncoded 05/20/18 19:35 OF BREATH - Medications Medications: Current Medications Dicyclomine HCl (Bentyl) 10 mg PO TID [facility] Last Admin: 05/21/18 09:53 Dose: Not Given Fentanyl (Duragesic) 1 patch TD Q72H [facility] Last Admin: 05/19/18 19:09 Dose: Not Given Gabapentin (Neurontin) 300 mg PO BID [facility]; Protocol Last Admin: 05/20/18 18:56 Dose: Not Given Piperacillin Sod/Tazobactam Sod (Zosyn 3.375 In Ns 100ml) 100 mls @ 25 mls/hr IVPB Q8 [facility]; Protocol Stop: 05/27/18 07:01 Last Admin: 05/21/18 05:15 Dose: 25 mls/hr Midazolam 100 mg/100ml in NS (Midazolam 100 Mg/100ml In Ns) 100 mg in 100 mls @ 7 mls/hr IV .[id number] PRN; Protocol PRN Reason: Seizure activity Last Admin: 05/21/18 08:00 Dose: 7 mg/hr, 7 mls/hr Sodium Chloride (Sodium Chloride 0.9%) 1,000 mls @ 100 mls/hr IV .Q10H [facility] Last Admin: 05/20/18 23:57 Dose: 100 mls/hr Propofol (Diprivan) 1,000 mg in 100 mls @ 1.796 mls/hr IV .Q24H PRN; Protocol PRN Reason: TITRATE PER MD ORDER Last Admin: 05/20/18 22:38 Dose: 5 mcg/kg/min, 1.796 mls/hr Potassium Chloride (Potassium Chloride 10 Meq/100 Ml) 10 meq in 100 mls @ 50 mls/hr IVPB Q2H [facility] Stop: 05/21/18 13:14 Insulin Detemir (Levemir) 14 unit SC HS [facility] Last Admin: 05/20/18 22:52 Dose: 14 unit Insulin Human Lispro (Humalog Low) 0 units SC ACHS [facility]; Protocol Last Admin: 05/21/18 07:45 Dose: Not Given Levalbuterol HCl (Xopenex) 1.25 mg IH [id number] [facility] Last Admin: 05/21/18 07:26 Dose: 1.25 mg Metoclopramide HCl (Reglan) 5 mg PO HS [facility] Last Admin: 05/20/18 22:30 Dose: Not Given Ondansetron HCl (Zofran Tab) 4 mg PO Q8 [facility] Last Admin: 05/21/18 05:35 Dose: 4 mg Pantoprazole Sodium (Protonix Inj) 40 mg IVP DAILY [facility] Venlafaxine HCl (Effexor Xr) 75 mg PO DAILY [facility] Last Admin: 05/20/18 10:15 Dose: Not Given Physical Exam - Constitutional Appears: Well, Non-toxic, No Acute Distress, Chronically Ill - Head Exam Head Exam: ATRAUMATIC, NORMOCEPHALIC - Eye Exam Eye Exam: PERRL - ENT Exam ENT Exam: Mucous Membranes Dry - Respiratory Exam Respiratory Exam: NORMAL BREATHING PATTERN - Cardiovascular Exam Cardiovascular Exam: REGULAR RHYTHM. absent: Tachycardia - GI/Abdominal Exam GI & Abdominal Exam: Soft. absent: Distended, Guarding, Tenderness - Extremities Exam Extremities exam: Positive for: pedal pulses present. Negative for: calf tenderness, pedal edema - Neurological Exam Additional comments: intubated and sedated - Skin Skin Exam: Dry, Intact, Normal Color, Warm Results - Vital Signs Recent Vital Signs: Last Vital Signs Temp 97.5 F L 05/21/18 08:20 Pulse 92 H 05/21/18 08:20 Resp 23 05/21/18 07:30 BP 97/56 L 05/21/18 08:00 Pulse Ox 94 L 05/21/18 08:20 - Labs Result Diagrams: 05/21/18 06:20 05/21/18 06:20 Labs: Laboratory Results - last 24 hr 05/20/18 05/20/1805/20/18 07:40 07:40 07:40 WBC RBC Hgb Hct MCV MCH MCHC RDW Plt Count MPV PT INR APTT pCO2 pO2 HCO3 ABG pH ABG Total CO2 ABG O2 Saturation ABG O2 Content ABG Base Excess ABG Hemoglobin ABG Carboxyhemoglobin POC ABG HHb (Measured) ABG Methemoglobin ABG O2 Capacity Hgb O2 Saturation FiO2 Sodium Potassium Chloride Carbon Dioxide Anion Gap BUN Creatinine Est GFR ( Amer) Est GFR (Non-Af Amer) POC Glucose (mg/dL) Random Glucose Hemoglobin A1c 11.0 H Calcium Total Bilirubin AST ALT Alkaline Phosphatase Total Protein Albumin Globulin Albumin/Globulin Ratio 25-OH Vitamin D Total Procalcitonin 25.35 H Cortisol AM Sample 43.5 H 05/20/18 05/20/18 05/20/18 16:13 17:30 21:50 WBC RBC Hgb Hct MCV MCH MCHC RDW Plt Count MPV PT INR APTT pCO2 pO2 HCO3 ABG pH ABG Total CO2 ABG O2 Saturation ABG O2 Content ABG Base Excess ABG Hemoglobin ABG Carboxyhemoglobin POC ABG HHb (Measured) ABG Methemoglobin ABG O2 Capacity Hgb O2 Saturation FiO2 Sodium 131 L 131 L Potassium 3.1 L 3.2 L Chloride 101 101 Carbon Dioxide 24 23 Anion Gap 10 10 BUN 38 H 38 H Creatinine 1.6 H 1.7 H Est GFR ( Amer) 40 37 Est GFR (Non-Af Amer) 33 31 POC Glucose (mg/dL) 203 H Random Glucose 200 H 229 H Hemoglobin A1c Calcium 7.5 L 7.3 L Total Bilirubin AST ALT Alkaline Phosphatase Total Protein Albumin Globulin Albumin/Globulin Ratio 25-OH Vitamin D Total Procalcitonin Cortisol AM Sample 05/20/18 05/21/18 05/21/18 22:10 05:00 06:20 WBC 3.0 L D RBC 3.34 L Hgb 8.4 L Hct 25.2 L MCV 75.4 L MCH 25.1 MCHC 33.3 RDW 14.5 Plt Count 160 MPV 10.1 PT INR APTT pCO2 30 L pO2 92.0 HCO3 19.0 L ABG pH 7.41 ABG Total CO2 19.9 L ABG O2 Saturation 96.6 ABG O2 Content 12.4 L ABG Base Excess -4.9 L ABG Hemoglobin 9.0 L ABG Carboxyhemoglobin 0.2 L POC ABG HHb (Measured) 3.4 ABG Methemoglobin 0.0 ABG O2 Capacity 12.8 L Hgb O2 Saturation 96.5 FiO2 50.0 Sodium Potassium Chloride Carbon Dioxide Anion Gap BUN Creatinine Est GFR ( Amer) Est GFR (Non-Af Amer) POC Glucose (mg/dL) 263 H Random Glucose Hemoglobin A1c Calcium Total Bilirubin AST ALT Alkaline Phosphatase Total Protein Albumin Globulin Albumin/Globulin Ratio 25-OH Vitamin D Total Procalcitonin Cortisol AM Sample 05/21/18 05/21/18 05/21/18 06:20 06:20 07:27 WBC RBC Hgb Hct MCV MCH MCHC RDW Plt Count MPV PT INR APTT pCO2 pO2 HCO3 ABG pH ABG Total CO2 ABG O2 Saturation ABG O2 Content ABG Base Excess ABG Hemoglobin ABG Carboxyhemoglobin POC ABG HHb (Measured) ABG Methemoglobin ABG O2 Capacity Hgb O2 Saturation FiO2 Sodium 133 Potassium 3.3 L Chloride 103 Carbon Dioxide 20 L Anion Gap 13 BUN 44 H Creatinine 1.9 H Est GFR ( Amer) 33 Est GFR (Non-Af Amer) 27 POC Glucose (mg/dL) 182 H Random Glucose 191 H Hemoglobin A1c Calcium 7.4 L Total Bilirubin 0.3 AST 28 ALT 25 Alkaline Phosphatase 164 H D Total Protein 4.4 L Albumin 2.1 L Globulin 2.3 Albumin/Globulin Ratio 0.9 L 25-OH Vitamin D Total < 12.8 L Procalcitonin Cortisol AM Sample 05/21/18 05/21/18 10:15 11:57 WBC RBC Hgb Hct MCV MCH MCHC RDW Plt Count MPV PT 14.3 H INR 1.24 APTT 27.9 pCO2 pO2 HCO3 ABG pH ABG Total CO2 ABG O2 Saturation ABG O2 Content ABG Base Excess ABG Hemoglobin ABG Carboxyhemoglobin POC ABG HHb (Measured) ABG Methemoglobin ABG O2 Capacity Hgb O2 Saturation FiO2 Sodium Potassium Chloride Carbon Dioxide Anion Gap BUN Creatinine Est GFR ( Amer) Est GFR (Non-Af Amer) POC Glucose (mg/dL) 150 H Random Glucose Hemoglobin A1c Calcium Total Bilirubin AST ALT Alkaline Phosphatase Total Protein Albumin Globulin Albumin/Globulin Ratio 25-OH Vitamin D Total Procalcitonin Cortisol AM Sample Assessment & Plan - Assessment and Plan (Free Text) Assessment: 57 yr old female with hypotension refractory to 1.5 L NS bolus, likely hypovolemic Plan: Central line placement Post procedure CXR Medical Management per ICU Discussed with Dr. Barber Cid, PGY 1 - Date & Time Date: 05/21/18 Time: 10:15
--- NOTE | 2018-05-21 12:23 | PCM.PROC ---
Procedures Attestation:: I certify that I have explained the specified Operation(s) or Procedure(s), risks, benefits and reasonable alternatives to the Patient and/or other person responsible. The opportunity was given to ask questions and all questions answered - Central Line Placement Right Internal Jugular Triple Lumen Catheter Aseptic technique was employed throughout the procedure: Hand Hygiene done prior to procedure, Full sterile barriers (mask, hair cover, sterile gown, sterile gloves), Full body sterile drape, Chloraprep Antiseptic: 30 second prep for IJ or SC sites CVP Time Out Performed: Yes Pt. Placed on Pulse Ox Monitor: Yes Central Line Prep: Chlorhexidine-Alcohol Combination Local Anesthesia Used: Lidocaine 1% Ultrasound Used for Placement: Yes Central Line Lumen Inserted: triple Central Line Length: 20 cm Post Procedure: Sutured in Place, Good Blood Return, All Ports Aspirated, Flushed, Capped, Sterile Dressing Applied Secured by: Suture Post procedure dressing: Clear vapor permeable, Chlorhexidine disc (Biopatch) Post Procedure X-Ray: Yes Patient Tolerated Procedure: Well, No Complications Immediate Complications: None
--- NOTE | 2018-05-21 12:32 | CP.PCM.PN ---
Subjective - Date & Time of Evaluation Date of Evaluation: 05/21/18 Time of Evaluation: 12:31 - Subjective Subjective: Nephrology Consultation Note: Assessment: critical Acute Kidney Injury (N17.9) likely hemodynamic injury due to BP fluctuations, sepsis with shock urine retention likely neurogenic bladder ? seizure, aspiration pneumonia hyperglycemia with uncontrolled DM Anemia , hypokalemia hypomagnesemia hyponatremia Diabetic chronic Kidney Disease (E11.22) Hypertensive Chronic Kidney Disease (I12.9) Chronic Kidney Disease (N18.1) Stage with ? mg proteinuria (R80.9) likely due to DM Type 1 diabetes Mellitus (>20 years) complicated by neuropathy, retinopathy and gastroparesis neurogenic bladder hx of TIA, GERD, kidney stones, hx of hemicolectomy severe pulmonary HTN Plan No acute need for renal replacement therapy at this time. Patient not on ACEI/ARB due to ANTONIO, will consider to resume once ANTONIO resolves. hold BP meds continue with IVF as ordered. supplement lytes as needed. NS bolus as needed for low BP Monitor Input/Output, daily weights and renal function with basic metabolic panel Check urine spot protein/creatinine and albumin/creatinine ratio Check for 25-OH vitamin D, iPTH, phosphorus level Anemia work up with TSAT/Ferritin and b12/folate level Dose meds/antibiotics for reduced GFR. Avoid fleets enema/magnesium based laxatives. Avoid nephrotoxins/NSAIDs/ iodinated contrast (unless needed emergently) Glycemic control Further work up/management as per primary team Thanks for allowing me to participate in care of your patient. Will follow patient with you. Please call if any Qs. had d/w team Dr Onesimo Guerra Office: [phone] Chief Complaint; seizure reason for consult: ANTONIO HPI: Pt is a 57 F with hx of Type 1 diabetes Mellitus (>20 years) complicated by neuropathy, retinopathy, gastroparesis, neurogenic bladder hypertension (years), TIA, GERD, kidney stones, hx of hemicolectomy presented with complaints of seizures and aspiration pneumonia. renal consult for ANTONIO evaluation and management. Denies OTC/herbal meds or NSAIDs Noted recent iodinated contrast exposure on 05/16/18. Noted obvious episodes of low BP (SBP 90s), high BP (SBP 200+) ROS: unable to obtain. on veeg Physical Examination: General Appearance: comfortable, in no acute respiratory distress, intubated sedated Vitals reviewed and noted as below Head; Atraumatic, normocephalic ENT: orally intubated EYES: Pupils are equal, round and reactive to light accommodation. Eye muscles and extraocular movement intact. Sclera is anicteric. Neck; supple no lymphadenopathy, no thyromegaly or bruit Lungs: Normal respiratory rate/effort. Breath sounds bilateral equal and few b/l wheeze Heart: Normal rate. s1s2 normal. No rub or gallop. Extremities: no edema. No varicose veins Neurological: Patient is sedated Skin: Warm and dry. Normal turgor. No rash. Palpitation: Normal elasticity for age Abdomen: Abdomen is soft. Bowel sounds +. There is no abdominal tenderness, no guarding/rigidity no organomegaly Psych: deferred MSK: no joint tenderness or swelling. Digits and nails normal, no deformity : kidney not palpable has gay Labs/imaging reviewed. Past medical history, past surgical history, family history, social history, allergy reviewed and noted as below Family hx: no hx of CKD. Rest non-contributory work up: UA 3+ protein with moderate blood a1c 10.2% CT abdomen: normal adrenal. hx of b/l nephrolithiasis. distended urinary bladder Objective - Vital Signs/Intake and Output Vital Signs (last 24 hours): Temp Pulse Resp BP Pulse Ox 97.5 F L 92 H 23 97/56 L 94 L 05/21/18 08:20 05/21/18 08:20 05/21/18 07:30 05/21/18 08:00 05/21/18 08:20 Intake and Output: 05/21/18 05/21/18 06:59 18:59 Intake Total 1806 100 Output Total 325 Balance 1481 100 - Medications Medications: Current Medications Dicyclomine HCl (Bentyl) 10 mg PO TID [facility] Last Admin: 05/21/18 09:53 Dose: Not Given Fentanyl (Duragesic) 1 patch TD Q72H [facility] Last Admin: 05/19/18 19:09 Dose: Not Given Gabapentin (Neurontin) 300 mg PO BID [facility]; Protocol Last Admin: 05/20/18 18:56 Dose: Not Given Piperacillin Sod/Tazobactam Sod (Zosyn 3.375 In Ns 100ml) 100 mls @ 25 mls/hr IVPB Q8 [facility]; Protocol Stop: 05/27/18 07:01 Last Admin: 05/21/18 05:15 Dose: 25 mls/hr Midazolam 100 mg/100ml in NS (Midazolam 100 Mg/100ml In Ns) 100 mg in 100 mls @ 7 mls/hr IV .[id number] PRN; Protocol PRN Reason: Seizure activity Last Admin: 05/21/18 08:00 Dose: 7 mg/hr, 7 mls/hr Sodium Chloride (Sodium Chloride 0.9%) 1,000 mls @ 100 mls/hr IV .Q10H [facility] Last Admin: 05/20/18 23:57 Dose: 100 mls/hr Propofol (Diprivan) 1,000 mg in 100 mls @ 1.796 mls/hr IV .Q24H PRN; Protocol PRN Reason: TITRATE PER MD ORDER Last Admin: 05/20/18 22:38 Dose: 5 mcg/kg/min, 1.796 mls/hr Potassium Chloride (Potassium Chloride 10 Meq/100 Ml) 10 meq in 100 mls @ 50 mls/hr IVPB Q2H [facility] Stop: 05/21/18 13:14 Insulin Detemir (Levemir) 14 unit SC HS [facility] Last Admin: 05/20/18 22:52 Dose: 14 unit Insulin Human Lispro (Humalog Low) 0 units SC ACHS [facility]; Protocol Last Admin: 05/21/18 07:45 Dose: Not Given Levalbuterol HCl (Xopenex) 1.25 mg IH [id number] [facility] Last Admin: 05/21/18 07:26 Dose: 1.25 mg Metoclopramide HCl (Reglan) 5 mg PO HS [facility] Last Admin: 05/20/18 22:30 Dose: Not Given Ondansetron HCl (Zofran Tab) 4 mg PO Q8 [facility] Last Admin: 05/21/18 05:35 Dose: 4 mg Pantoprazole Sodium (Protonix Inj) 40 mg IVP DAILY [facility] Venlafaxine HCl (Effexor Xr) 75 mg PO DAILY [facility] Last Admin: 05/20/18 10:15 Dose: Not Given - Labs Labs: 05/21/18 06:20 05/21/18 06:20 PT 14.3 SECONDS (9.4-12.5) H 05/21/18 10:15 INR 1.24 05/21/18 10:15 APTT 27.9 Seconds (25.1-36.5) 05/21/18 10:15
[2018-05-21] MEDS ORDERED: NOREPINEPHRINE BIT/0.9 % NACL 4 MG/250 ML BAG IV PRN (12:53)
--- NOTE | 2018-05-21 13:26 | RAD ---
Date of service: 05/21/2018 HISTORY: post central line COMPARISON: May 21, 2018 Time of the most recent examination: 05:02. FINDINGS: LUNGS: Stable multifocal infiltrates/asymmetrical pulmonary edema. PLEURA: No significant pleural effusion identified, no pneumothorax apparent. CARDIOVASCULAR: No atherosclerotic calcification present Venous access catheter in satisfactory position. Inserted via right internal jugular approach. OSSEOUS STRUCTURES: No significant abnormalities. VISUALIZED UPPER ABDOMEN: Normal. OTHER FINDINGS: Stable position of endotracheal tube and nasogastric tube. IMPRESSION: No adverse findings following right IJ catheter placement. The tip is at the cavoatrial junction. Remaining findings described above are stable.
--- NOTE | 2018-05-21 13:30 | PN ---
DATE: 05/21/2018 ENDOCRINOLOGY FOLLOWUP NOTE LOCATION: ICU 128, Room 1. SUBJECTIVE: This is a 57-year-old female with recent uncontrolled type 2 insulin-requiring diabetes, now being followed closely for metabolic management. Her glycemic levels are fluctuating but improved and the glucose levels overnight have ranged from 182-263 mg/dL. LABORATORY DATA: Her chemistries today showed a BUN of 44, sodium 133, potassium 3.3, chloride 103, CO2 of 20, glucose 191 and creatinine 1.9. ASSESSMENT AND PLAN: So at this time, we will continue the same basal insulin regimen as ordered as the patient is still n.p.o. undergoing neurological workup and management. We will continue the Levemir given as 14 units subcutaneously at bedtime daily as ordered. We will continue also the low-dose correction scale using Humalog insulin as given. As soon as her oral intake is advanced to solid food, then we will switch her over to a more physiologic basal and bolus insulin drug regimen as indicated. We will continue also the IV hydration as given. We will follow. Tita Coe MD
[2018-05-21] MEDS: Venlafaxine 75 mg ER Cap PO SCH (13:57)
--- NOTE | 2018-05-21 17:18 | PN ---
DATE: 05/21/2018 SUBJECTIVE: I saw her in the intensive care unit. She is still on the ventilator. She is intubated. She is not waking up. Her second CAT scan did not show a difference from the first CAT scan. She is on Bentyl, Diprivan, Duragesic patch, Effexor, insulin, Levemir, midazolam, Neurontin, potassium replacement, Protonix, IV fluids, Xopenex, Zofran, and Zosyn. PHYSICAL EXAMINATION: VITAL SIGNS: Temperature is 97.5, pulse is 92, blood pressure 97/56, 94% O2 saturation on 50% on the ventilator. HEENT: Head is atraumatic, normocephalic. HEART: Regular rate and rhythm. LUNGS: Decreased breath sounds, but clear. ABDOMEN: Soft. EXTREMITIES: No edema. LABORATORY DATA: She has 3 white count, 8.4 hemoglobin 25.2 hematocrit with 160 platelets. She has 133 sodium, potassium is 3.3. We will replace the potassium. BUN 44, creatinine 1.9. She has had renal also involved, 150 sugar, 7.4 calcium, total bilirubin is 0.3, AST is 28, ALT is 25, alk phos 154, total protein is 4.4. Vitamin E level is less than 12.8. ASSESSMENT AND PLAN: She is in deep trouble. She is still not waking up. She had seizures, SIRS, renal insufficiency, right pneumonia, COPD, diabetes, change in mentation. She has multiple doctors on her case; the corner former, infectious disease, renal, and we are hoping that she can wake up and get taken off the ventilator. Stable bilateral infiltrates. I will check her labs tomorrow. Discussed at length with the daughter, answered many questions. on the ventilator with bilateral pneumonia, mental status changes. Josafat Dent DO MTDD
[2018-05-21] MEDS ORDERED: levETIRAcetam 1000mg/100ml NS 100 ML IV ONE (19:05)
[2018-05-21] MEDS ORDERED: Home Med 1 UNIT IM SCH (19:15)
--- NOTE | 2018-05-21 19:52 | PN ---
DATE: 05/21/2018 SUBJECTIVE: The patient is currently on mechanical ventilation and the daughter is at the bedside. PHYSICAL EXAMINATION: VITAL SIGNS: Blood pressure 97/56, earlier it was 88/48, heart rate 92, and temperature 97.5. HEENT: Pale conjunctivae. CHEST: Right basilar crepitations. HEART: S1 and S2 regular. EXTREMITIES: Right metatarsal amputation. LABORATORY DATA: Hemoglobin and hematocrit 8.4 and 25.2. White count 3, platelet count 160,000. Today's SMA-7: Sodium 133, potassium 3.3, chloride 103, CO2 20, glucose 191, BUN 44, creatinine 1.9. Influenza A and B serology is negative. Urine drug screen is positive for benzodiazepines. INR is 1.24, PT 27.9. Chest x-ray revealed right alveolar infiltrates involving mainly the right middle and lower lung zones. EKG revealed sinus tachycardia at the rate of 107, consider inferolateral ischemia. Echocardiographic study performed yesterday revealed mild concentric LVH with normal ejection fraction and normal segmental wall motion with severe pulmonary hypertension and reduced diastolic compliance. Venous Doppler of lower extremity, no sonographic evidence of DVT. CT scan on admission, no acute findings and repeat CT scan done yesterday was the same. ASSESSMENT: 1. Respiratory failure. 2. Seizure activity. 3. Peripheral vascular disease, status post right metatarsal amputation. 4. Severe pulmonary hypertension. 5. Systemic hypertension. RECOMMENDATIONS: Continue current Levophed infusion. Continue Zosyn at 3.375 g intravenously every 8 hours, Xopenex inhaler every 6 hours, Protonix 40 mg intravenously daily, midazolam infusion, and Diprivan IV p.r.n. Harpreet Espinoza MD
[2018-05-21] MEDS: Sodium Chloride 0.9% 1,000 ML IV SCH (22:15)
[2018-05-21] MEDS: Dextrose 50% SYRINGE Inj (50 ml) IVP ONE ×2 (22:23→22:35)
[2018-05-21] MEDS ORDERED: Dextrose 50% SYRINGE Inj (50 ml) IV ONE (22:30)
[2018-05-21] MEDS: Insulin Detemir 100 units/ml Vial (Levemir) SC SCH (23:05)
[2018-05-22] MEDS: Levalbuterol 1.25 MG/3 ML Inhal Soln UD IH SCH ×4 (01:15→19:50)
[2018-05-22] MEDS: Piperacillin/Tazobact 3.375 gm 100 ML IVPB SCH ×3 (05:39→21:30)
[2018-05-22] MEDS ORDERED: levETIRAcetam 500mg IVPB 500 MG/100 ML BAG IVPB SCH (06:00)
[2018-05-22 06:13] LABS: HEMOGLOBIN 8.2 g/dL (12.0-16.0); MEAN CELL VOLUME 75.8 fl (80.0-105.0); MEAN CORPUSCULAR HEMOGLOBIN 25.1 pg (25.0-35.0); MEAN CORPUSCULAR HGB CONC 33.1 g/dl (31.0-37.0); MEAN PLATELET VOLUME 10.7 fl (7.0-11.0); RBC 3.27 10^6/uL (3.5-6.1); RED CELL DISTRIBUTION WIDTH 15.2 % (11.5-14.5); WHITE BLOOD COUNT 2.6 10^3/uL (4.5-11.0)
[2018-05-22 06:29] LABS: ALB/GLOB RATIO 0.9 (1.1-1.8); ALBUMIN 2.2 g/dL (3.0-4.8); CALCIUM 7.2 mg/dL (8.4-10.5)
[2018-05-22] MEDS ORDERED: Dextrose 50% SYRINGE Inj (50 ml) ONE (06:33)
[2018-05-22] MEDS ORDERED: Dextrose 50% SYRINGE Inj (50 ml) IVP ONE (06:54)
[2018-05-22 06:59] LABS: ARTERIAL BLOOD GAS HCO3 20.9 mmol/L (21-28); ARTERIAL BLOOD GAS HEMOGLOBIN 7.5 g/dL (11.7-17.4); ARTERIAL BLOOD GAS O2 CAPACITY 10.7 mL/dl (16-24); ARTERIAL BLOOD GAS O2 CONTENT 10.4 ML/dl (15-23); ARTERIAL BLOOD GAS O2 SAT 97.1 % (95-98); ARTERIAL BLOOD GAS PCO2 33 mm/Hg (35-45); ARTERIAL BLOOD GAS PH 7.41 (7.35-7.45); ARTERIAL BLOOD GAS TCO2 21.9 mmol.L (22-28)
[2018-05-22] MEDS: Ergocalciferol 50,000 Intl Units Cap PO SCH (08:19)
[2018-05-22] MEDS ORDERED: Dextrose 5%/0.45% NS 1,000 ML IV SCH ×2 (08:45→11:18)
[2018-05-22] MEDS: Insulin Lispro (humaLOG) LOW Coverage SC SCH ×4 (09:03→22:00)
[2018-05-22] MEDS: Venlafaxine 75 mg ER Cap PO SCH (09:08)
[2018-05-22] MEDS: Propofol 10 mg/ml 1,000 MG/100 ML VIAL IV PRN (09:11)
--- NOTE | 2018-05-22 10:40 | RAD ---
Date of service: 05/22/2018 HISTORY: f/u COMPARISON: Multiple serial examinations preceding the most recent study: May 21, 2018. FINDINGS: LUNGS: Interval improvement in perihilar infiltrates/pulmonary edema. PLEURA: No significant pleural effusion identified, no pneumothorax apparent. CARDIOVASCULAR: No atherosclerotic calcification present Normal. OSSEOUS STRUCTURES: No significant abnormalities. VISUALIZED UPPER ABDOMEN: Normal. OTHER FINDINGS: The endotracheal tube now appears to be high riding, the tip appears to be 2 cm above the clavicles. Stable position of right IJ catheter nasogastric tube. IMPRESSION: Improving pulmonary edema without complete resolution. High endotracheal tube described above and marked on the study for review
--- NOTE | 2018-05-22 11:19 | CP.PCM.PN ---
Subjective - Date & Time of Evaluation Date of Evaluation: 05/22/18 Time of Evaluation: 11:17 - Subjective Subjective: Nephrology Consultation Note: Assessment: critical Acute Kidney Injury (N17.9) likely hemodynamic injury due to BP fluctuations, sepsis with shock urine retention likely neurogenic bladder ? seizure with abnormal EEG/MRI, aspiration pneumonia hyperglycemia with uncontrolled DM Anemia , hypokalemia hypomagnesemia hyponatremia Diabetic chronic Kidney Disease (E11.22) Hypertensive Chronic Kidney Disease (I12.9) Chronic Kidney Disease (N18.1) Stage with ? mg proteinuria (R80.9) likely due to DM Type 1 diabetes Mellitus (>20 years) complicated by neuropathy, retinopathy and gastroparesis neurogenic bladder hx of TIA, GERD, kidney stones, hx of hemicolectomy severe pulmonary HTN Plan No acute need for renal replacement therapy at this time. Patient not on ACEI/ARB due to ANTONIO, will consider to resume once ANTONIO resolves. hold BP meds continue with IVF as ordered. supplement lytes as needed. NS bolus as needed for low BP Monitor Input/Output, daily weights and renal function with basic metabolic panel supplement lytes started weekly vit D Check urine spot protein/creatinine and albumin/creatinine ratio Check for 25-OH vitamin D, iPTH, phosphorus level Anemia work up with TSAT/Ferritin and b12/folate level Dose meds/antibiotics for reduced GFR. Avoid fleets enema/magnesium based laxatives. Avoid nephrotoxins/NSAIDs/ iodinated contrast (unless needed emergently) Glycemic control Further work up/management as per primary team Thanks for allowing me to participate in care of your patient. Will follow patient with you. Please call if any Qs. had d/w team Dr Onesimo Guerra Office: [phone] Chief Complaint; seizure reason for consult: ANTONIO HPI: Pt is a 57 F with hx of Type 1 diabetes Mellitus (>20 years) complicated by neuropathy, retinopathy, gastroparesis, neurogenic bladder hypertension (years), TIA, GERD, kidney stones, hx of hemicolectomy presented with complaints of seizures and aspiration pneumonia. renal consult for ANTONIO evaluation and management. Denies OTC/herbal meds or NSAIDs Noted recent iodinated contrast exposure on 05/16/18. Noted obvious episodes of low BP (SBP 90s), high BP (SBP 200+) ROS: unable to obtain. Physical Examination: General Appearance: comfortable, in no acute respiratory distress, intubated sedated Vitals reviewed and noted as below Head; Atraumatic, normocephalic ENT: orally intubated Neck; supple no lymphadenopathy, no thyromegaly or bruit Lungs: Normal respiratory rate/effort. Breath sounds bilateral equal and rt basa l crackle Heart: Normal rate. s1s2 normal. No rub or gallop. Extremities: no edema. No varicose veins Neurological: Patient is sedated Skin: Warm and dry. Normal turgor. No rash. Palpitation: Normal elasticity for age Abdomen: Abdomen is soft. Bowel sounds +. There is no abdominal tenderness, no guarding/rigidity no organomegaly Psych: deferred MSK: no joint tenderness or swelling. Digits and nails normal, no deformity : kidney not palpable has gay Labs/imaging reviewed. Past medical history, past surgical history, family history, social history, allergy reviewed and noted as below Family hx: no hx of CKD. Rest non-contributory work up: UA 3+ protein with moderate blood a1c 10.2% CT abdomen: normal adrenal. hx of b/l nephrolithiasis. distended urinary bladder Objective - Vital Signs/Intake and Output Vital Signs (last 24 hours): Temp Pulse Resp BP Pulse Ox 98.4 F 85 22 111/62 96 05/22/18 01:20 05/22/18 01:20 05/22/18 07:38 05/22/18 01:00 05/22/18 07:38 Intake and Output: 05/22/18 05/22/18 06:59 18:59 Intake Total 4066 100 Output Total 1625 Balance 2441 100 - Medications Medications: Current Medications Dicyclomine HCl (Bentyl) 10 mg PO TID [facility] Last Admin: 05/22/18 09:09 Dose: 10 mg Ergocalciferol (Drisdol 50,000 Intl Units Cap) 1 cap PO Q7D PATTI Last Admin: 05/22/18 08:19 Dose: 1 cap Gabapentin (Neurontin) 300 mg PO BID [facility]; Protocol Last Admin: 05/22/18 09:08 Dose: 300 mg Piperacillin Sod/Tazobactam Sod (Zosyn 3.375 In Ns 100ml) 100 mls @ 25 mls/hr IVPB Q8 [facility]; Protocol Stop: 05/27/18 07:01 Last Admin: 05/22/18 05:39 Dose: 25 mls/hr Midazolam 100 mg/100ml in NS (Midazolam 100 Mg/100ml In Ns) 100 mg in 100 mls @ 7 mls/hr IV .[id number] PRN; Protocol PRN Reason: Seizure activity Last Admin: 05/21/18 08:00 Dose: 7 mg/hr, 7 mls/hr Sodium Chloride (Sodium Chloride 0.9%) 1,000 mls @ 100 mls/hr IV .Q10H PATTI Last Admin: 05/21/18 22:15 Dose: 100 mls/hr Propofol (Diprivan) 1,000 mg in 100 mls @ 1.796 mls/hr IV .Q24H PRN; Protocol PRN Reason: TITRATE PER MD ORDER Last Admin: 05/22/18 09:11 Dose: 5 mcg/kg/min, 1.796 mls/hr NOREPINEPHRINE BIT/0.9 % NACL (Levophed 4 Mg/ 250 Ml Ns Premixed) 4 mg in 250 mls @ 15 mls/hr IV .[id number] PRN; Protocol PRN Reason: TITRATE PER MD ORDER Levetiracetam (Keppra 500mg Ivpb) 500 mg in 100 mls @ 400 mls/hr IVPB 0600,1800 [facility] Last Admin: 05/22/18 05:35 Dose: 400 mls/hr Dextrose/Sodium Chloride (Dextrose 5%/0.45% Ns 1000 Ml) 1,000 mls @ 100 mls/hr IV .Q10H PATTI Last Admin: 05/22/18 08:10 Dose: 100 mls/hr Potassium Chloride (Potassium Chloride 20 Meq/100 Ml) 20 meq in 100 mls @ 50 mls/hr IVPB Q2H PATTI Stop: 05/22/18 12:59 Insulin Detemir (Levemir) 6 unit SC HS [facility] Insulin Human Lispro (Humalog Low) 0 units SC [facility]; Protocol Last Admin: 05/22/18 09:03 Dose: Not Given Levalbuterol HCl (Xopenex) 1.25 mg IH [id number] [facility] Last Admin: 05/22/18 07:08 Dose: 1.25 mg Metoclopramide HCl (Reglan) 5 mg PO HS [facility] Last Admin: 12/22/18 22:22 Dose: 5 mg Ondansetron HCl (Zofran Tab) 4 mg PO Q8 [facility] Last Admin: 05/22/18 05:39 Dose: 4 mg Pantoprazole Sodium (Protonix Inj) 40 mg IVP DAILY [facility] Last Admin: 05/22/18 09:09 Dose: 40 mg Venlafaxine HCl (Effexor Xr) 75 mg PO DAILY [facility] Last Admin: 05/22/18 09:08 Dose: 75 mg - Labs Labs: 05/22/18 05:30 05/22/18 05:30 PT 14.3 SECONDS (9.4-12.5) H 05/21/18 10:15 INR 1.24 05/21/18 10:15 APTT 27.9 Seconds (25.1-36.5) 05/21/18 10:15
--- NOTE | 2018-05-22 11:27 | PN ---
DATE: 05/22/2018 ENDOCRINOLOGY FOLLOWUP NOTE ICU 128, Room 1. SUBJECTIVE: This is a 57-year-old female with recent with known history of uncontrolled type 2 insulin-requiring diabetes presenting here with an apparent grand mal seizure and currently undergoing neurologic workup and is still n.p.o. at this time as noted. Her glycemic levels are fluctuating as expected with no oral intake as given with an underlying hypercatabolic state as noted. LABORATORY DATA: Her chemistry shows a BUN of 45, sodium 139, potassium 2.9, chloride 109, CO2 of 24, glucose 38 and creatinine 1.7. Her bedtime glucose was glucose was 62-104 mg/dl and it was 132 this morning as noted. ASSESSMENT: This is a 57-year-old female with uncontrolled and decompensated type 2 insulin-requiring diabetes with extremes of glycemic fluctuation related to the suboptimal nutritional support and as noted. Pending the full neurological workup and management. So at this time, she had an apparent witnessed grand mal seizure event at home as noted. PLAN OF MANAGEMENT: We will modify lower her basal insulin to Levemir given as 6 units subcu at bedtime daily as given. We will continue the low-dose correction scale using Humalog insulin to hypoglycemia as ordered. We will continue the potassium supplementation as given and obtain serial chemistries accordingly. We will also continue the IV hydration which was apparently stopped at this time as the patient still has evidence of prerenal azotemia and dehydration. We will follow. Tita Coe MD
--- NOTE | 2018-05-22 11:38 | MRI ---
Date of service: 05/22/2018 PROCEDURE: MRI BRAIN WITHOUT CONTRAST HISTORY: AMS. Shazia COMPARISON: Comparison made with prior CT scans of the brain 05/19/2018 and 05/20/2018. TECHNIQUE: Multiplanar, multisequence MR images of the brain were obtained without intravenous contrast enhancement. FINDINGS: HEMORRHAGE: No acute parenchymal, subarachnoid or extra-axial hemorrhage. DWI: There are fairly large areas of restricted diffusion involving the posterior parietal lobes bilaterally along the occipito parietal watershed zones which extends superiorly into the posterior frontal regions along the posterior frontoparietal watershed zones.. These changes of predominantly restricted to the cortex with some sparing of the underlying white matter findings may represent acute watershed zone infarcts, possibly related to prolonged seizures or hypotensive episodes; rule out posterior reversible encephalopathy syndrome (PRES) BRAIN PARENCHYMA: No there may be some minimal chronic periventricular white matter ischemic changes.. VENTRICLES: Unremarkable. No hydrocephalus. CRANIUM: Unremarkable. ORBITS: Changes of bilateral cataract surgery PARANASAL SINUSES/MASTOIDS: There are opacification changes both mastoid air complexes. Possibly related to in situ in situ ETT and NGT with fluid seen in the nasopharynx and posterior oral cavity VASCULAR SYSTEM: Visualized major vascular flow voids at skull base patent. OTHER FINDINGS: None. IMPRESSION: There are large areas of restricted diffusion/prolonged T2 signal changes within the the watershed zones of the occipito parietal and parietal and posterior frontal regions predominately involving the cortex.. Rule out watershed zone acute infarcts possibly related to prolonged seizures or hypertensive episode; rule out posterior reversible encephalopathy syndrome (PRES). Note these findings were discussed with Dr. Glynn at approximately 11:25 a.m. with written down and read back verification
--- NOTE | 2018-05-22 12:19 | PN ---
DATE: 05/22/2018 SUBJECTIVE: The patient seen in the ICU 128, bed 1. The patient is intubated on a ventilator and poor condition. PHYSICAL EXAMINATION: VITAL SIGNS: Temperature is 98, blood pressure is 111/60, respiratory rate is on the vent and heart rate of 85. HEENT: ET tube is in place. NECK: Supple. LUNGS: Decreased breath sounds. HEART: Normal, S1 and S2. ABDOMEN: Soft. LABORATORY DATA: Reveals a white count of 2.6, hemoglobin of 8 and platelets of 182. BUN of 45, creatinine is 1.7 and procalcitonin of 25. Urinalysis is noted. Blood cultures are negative. MRSA screen is negative. The patient is currently on Zosyn. The patient had an MRI of the brain, results are pending. This morning's chest x-ray results are pending. ASSESSMENT AND PLAN: This is a 57-year-old female with severe sepsis respiratory failure intubated on a ventilator, with healthcare associated pneumonia. thus far negative, with diabetes, hypertension, transient ischemic attack, esophageal ulcers on Zosyn. We will follow closely with you. Overall prognosis is quite poor. Marc Sales MD
--- NOTE | 2018-05-22 13:39 | PN ---
DATE: 05/22/2018 SUBJECTIVE The patient is on the ventilator with FiO2 of 50%. She continues to have Diprivan as well as Versed and Levophed as her IV drips. The patient has had no unusual events overnight. No more seizures and continues to be on Keppra. PHYSICAL EXAMINATION: VITAL SIGNS: Note that her temperature is 98.4, pulse is 85, respirations of 22 and BP is 111/62. SKIN: Warm and dry. HEENT: Head atraumatic, normocephalic. Eyes reactive to light. Ear, nose, and throat seemed to be within normal limits. NECK: Supple. No JVD. No thyroid enlargement or lymph nodes. HEART: Has regular rate and rhythm. Normal S1, S2. LUNGS: Reveal mild rhonchi at the bases. ABDOMEN: Soft. Decreased bowel sounds. GENITALIA: Deferred. RECTAL: Deferred. MUSCULOSKELETAL: No joint deformities. EXTREMITIES: Reveal lower extremity edema. NEUROLOGIC: Neurologically, she is sedated on the ventilator. LABORATORY DATA: As far as her laboratories are concerned, her white count is 2.6, hemoglobin is 8.2, hematocrit 24.8 with platelets of 182,000. Her arterial blood gas reveals a pH of 7.41, pCO2 of 33, pO2 of 120. Her sodium is 139, potassium 2.9, chloride 109, CO2 of 24 with a BUN of 45, creatinine of 1.7 and a glucose of 132. As far as her chest x-ray, unofficial reading is that there is significant improvement with a small left lower lobe infiltrative process. Maybe some atelectasis in the left side as well. IMPRESSION: As far as my impression, this patient has respiratory failure with requiring ventilator support of aspiration pneumonia. She also has seizure disorder and hyperglycemia. The patient has a history of hypertension, diabetes, gastroparesis, transient ischemic attacks as well as esophageal ulcerations. She has anemia, acute renal insufficiency and at this time requires ventilator support for respiratory failure. PLAN: As far as our plan, we will continue to monitor closely. Continue to decrease the FiO2 as tolerated on the ventilator. The patient is on Diprivan as well as Versed and Levophed and we will continue with insulin and her Levemir as well as Neurontin, Protonix, Reglan, Xopenex and Zosyn. We will continue to treat aggressively along with the other consultants and the primary care doctor. Andrea Hill MD
--- NOTE | 2018-05-22 15:02 | PN ---
DATE: 05/22/2018 SUBJECTIVE: She had a MRI of the brain this morning, I looked at it, I am not a radiologist, but looks like she has possibly had a stroke or two. She is not waking up. PHYSICAL EXAMINATION: VITAL SIGNS: She has 98.4 temperature, 85 pulse, 22 respiratory rate, 96% O2 sat, 50% mechanical ventilator. She is intubated. HEENT: Head is atraumatic and normocephalic. HEART: Regular rate. LUNGS: Decreased breath sounds, but clear. ABDOMEN: Soft. EXTREMITIES: No edema. it is possible that she has had a stroke and we are in trouble. LABORATORY DATA: She has a 2.6 white count, 8.2 hemoglobin, 24.8 hematocrit with 182 platelets. She has a sodium 139 , potassium 2.9, potassium has to be replaced, BUN 45, creatinine 1.7, GFR is 31, sugar is 132, calcium 7.2, magnesium is 2.3, total bili is 0.3, AST is 27, ALT is 26 and alk phos 143. She is being seen by multiple doctors Renal, Surgery, Endocrinology, Passenger Screener, Interventional Radiologist, Neurology and GI. when she had a seizure, she had anoxic part and she was stroked out. Josafat Dent DO MTDD
[2018-05-22] MEDS: Midazolam 100 mg/100ml in NS 100 MG/100 ML SOL IV PRN (16:05)
--- NOTE | 2018-05-22 19:03 | PN ---
DATE: 05/22/2018 SUBJECTIVE: The patient is sedated on the ventilator. The patient's daughter is at the bedside. PHYSICAL EXAMINATION VITAL SIGNS: Blood pressure 111/62, temperature 97 degrees Fahrenheit, heart rate 77 and respirations 22. HEENT: Pale conjunctivae. CHEST: Minimal rhonchi. HEART: S1 and S2 regular. EXTREMITIES: No edema. Right metatarsal amputation. LABORATORY DATA: Today's hemoglobin and hematocrit are 8.2 and 24.8, white count 2.6, platelet count 182,000. Today's SMA-7: Sodium 139, potassium 2.9, chloride 109, CO2 of 24, glucose 38, BUN 45, creatinine 1.7. Brain MRI without contrast, a large area of restricted diffusion/prolonged T2 signal changes within the watershed zone of the occipitoparietal and postero-frontal regions, predominantly involving the cortex. Rule out watershed zone acute infarct possibly related to prolonged seizures or hypertensive episodes. Rule out posterior reversible encephalopathy syndrome. ASSESSMENT: 1. Respiratory failure. 2. Seizure activity. 3. Peripheral vascular disease. 4. Severe pulmonary hypertension. 5. Profound hypokalemia. 6. Chronic renal insufficiency. RECOMMENDATIONS: Continue current IV Zosyn. The patient did receive a total of 40 mEq of IV potassium replacement. The patient is being maintained on Diprivan drip. Harpreet Espinoza MD
[2018-05-22] MEDS ORDERED: Insulin Detemir 100 units/ml Vial (Levemir) SC SCH (22:00)
[2018-05-23] MEDS: Levalbuterol 1.25 MG/3 ML Inhal Soln UD IH SCH ×4 (03:01→20:28)
[2018-05-23] MEDS: Piperacillin/Tazobact 3.375 gm 100 ML IVPB SCH ×3 (05:44→21:05)
--- NOTE | 2018-05-23 06:50 | CP.CCUPN ---
<Anival Carteril - Last Filed: 05/23/18 11:33> CCU Subjective - Physician Review Subjective (Free Text): Joao Carter Internal Medicine Resident- Progress Note on Behalf of Critical Care Team Subjective: Patient seen and examined at bedside. No acute events. Further subjective data cannot be ascertained at this time. 12 point ROS cannot be ascertained at this time due to altered mental status Physical Examination: - Constitutional Appears: No Acute Distress - Head Exam Head Exam: ATRAUMATIC, NORMAL INSPECTION, NORMOCEPHALIC - Eye Exam Eye Exam: sluggish pupillary response bilaterally - ENT Exam ENT Exam: Mucous Membranes Dry, Normal Exam - Neck Exam Neck exam: Positive for: Normal Inspection - Respiratory Exam Respiratory Exam: Clear to Auscultation Bilateral, Vented - Cardiovascular Exam Cardiovascular Exam: REGULAR RHYTHM, +S1, +S2. absent: Gallop, JVD, Rubs - GI/Abdominal Exam GI & Abdominal Exam: Normal Bowel Sounds, Soft. absent: Tenderness - Neurological Exam Neurological exam: Altered mental status, GCS 3T - Skin Skin Exam: Dry, Intact, Normal Color, War Assessment and Plan: Patient is a 57 year old female with PMHx of HTN, uncontrolled DM2 complicated by retinopathy/gastroparesis, MDD, LAUREN, and TIA/CVA who was admitted for evaluation and treatment of seizure like activity. Patient suspected of experiencing aspiration. She was intubated/sedated due to an inability to protect her airway. Neuro Acute encephalopathy,AMS - rule out metabolic vs. toxic - 05/19/18 CT Head without Contrast- No acute findings - 05/20/2019 CT Head without Contrast- No evidence of acute intracranial hemorrhage mass effect or midline shift. No significant interval changes noted - 05/22/2018 Brain MRI without Contrast- There are large areas of restricted diffusion/prolonged T2 signal changes within the the watershed zones of the occipito parietal and parietal and posterior frontal regions predominately involving the cortex.. Rule out watershed zone acute infarcts possibly related to prolonged seizures or hypertensive episode - GCS3T Seizures, Hx of TIA/CVA - patient was keppra loaded on admission - continue on keppra 750mg IV q12 - hold versed drip 7mcg/hr & propofol @ 5mcg/kg/min - neurology consulted- appreciate recommendations- posterior reversible encephalopathy syndrome (PRES) - high risk fall precautions Neurogenic Fever - keep euthermic Cardiovascular: Hx of HTN - continue on levophed 4mcg/hr stable low 100s/60s - hold clonidine 0.2mg/24 hours - hold losartan 100mg PO daily - cardiology consulted (Dr. Farmer)- appreciate recommendation Resp: Respiratory Failure s/p Seizure Aspiration - intubated - continue PRVC TV400 RR12 [id number] - weaning trial and sedation trial daily Aspiration Pneumonia, HAP, Severe Sepsis - 05/19/18 CXR - No active disease - 05/20/18 CXR- right middle lobe infiltrated, gastric bubble noted- repeat CXR stat - s/p vancomyin 1.5g IV x 1 - continue zosyn 3.375 q8h - infectious disease consulted (Dr. Sales)- appreciate recommendations GI Hx of Gastroparesis - NPO - continue reglan 5mg mg PO QS - continue zofran 4mg IV q8h - continue bentyl 10mg PO TID - discontinue IVF Half NS @ 60cc/hr, started on NS@100cc/hr - GI consulted (Dr. Zambrano)- appreciate recommendations GI ppx: - protonix 40mg PO daily Endo Hx DM - hold levemir 6 units SC HS - discontinue D10@ 50cc/hr and discontinue D5 NS @50cc/hr - continue lispro insulin sliding scale low - fingersticks ACHS - endocrinology consulted Dr Coe- appreciate recommendations Renal ANTONIO - likely pre-renal in nature, BUN creatinine returning to baseline - restarted on IVF NS @ 100cc/hr - monitor closely via BMP/Creatinine - nephrology consulted- appreciate recommendations Hypokalemia - 3.4 - KCl 20 meq IV x 2 Heme Anemia - microcytic - downtrending 7.2 - administer 1 unit pRBCs - FOBT - serum, iron, tibc, ferritin, folate, b12 DVT Ppx - SCD Patient case discussed with and plan approved by attending physician, Dr. Monet. CCU Objective - Vital Signs / Intake & Output Vital Signs (Last 4 hours): Vital Signs Temp Pulse BP Pulse Ox 05/23/18 04:10 98.2 F 93 H 97 05/23/18 04:00 98.4 F 86 113/66 97 05/23/18 03:50 98.6 F 84 97 05/23/18 03:40 98.8 F 93 H 97 05/23/18 03:30 99.0 F 86 119/60 97 05/23/18 03:20 99.1 F 109 H 90 L 05/23/18 03:16 99.3 F 118 H 107/54 L 05/23/18 03:10 99.5 F 91 H 05/23/18 03:00 99.1 F 85 Intake and Output (Last 8hrs): Intake & Output 05/22/18 05/22/18 05/23/18 14:59 22:59 06:59 Intake Total 100 1762 Output Total 1650 Balance 100 112 Intake: IV 100 1762 D10W 350 K 400 LEVOPHED 56 Right Internal Jugular 700 abx 200 propofol 20 versed 36 Oral 0 Output: Gastric Amount 0 Nares 0 Urine 1650 Urethral (Wan) 1650 Other: # Bowel Movements 2 - Physical Exam Head: Positive for: Atraumatic, Normocephalic Pupils: Positive for: PERRL Extroacular Muscles: Positive for: EOMI Conjunctiva: Positive for: Normal Mouth: Positive for: Moist Mucous Membranes Neck: Positive for: Normal Range of Motion Respiratory/Chest: Positive for: Clear to Auscultation, Good Air Exchange. Ne gative for: Respiratory Distress, Accessory Muscle Use Cardiovascular: Positive for: Regular Rate and Rhythm, Normal S1, S2. Negative for: Murmurs Abdomen: Negative for: Tenderness, Distention, Peritoneal Signs Back: Positive for: Normal Inspection Upper Extremity: Positive for: Normal Inspection. Negative for: Cyanosis, Edema Lower Extremity: Positive for: Normal Inspection, Other (Right foot amputation noted). Negative for: Edema Neurological: Positive for: GCS=15, CN II-XII Intact, Speech Normal, Motor Func Grossly Intact Skin: Positive for: Warm, Dry, Normal Color. Negative for: Rashes Psychiatric: Positive for: Alert, Oriented x 3, Normal Insight, Normal Concentration - Medications Active Medications: Active Medications Generic Name Dose Route Start Last Admin Trade Name Freq PRN Reason Stop Dose Admin Dicyclomine HCl 10 mg 05/19/18 18:00 05/22/18 17:18 Bentyl PO 10 mg TID PATTI Administration Ergocalciferol 1 cap 05/22/18 07:15 05/22/18 08:19 Drisdol 50,000 Intl Units Cap PO 1 cap Q7D PATTI Administration Gabapentin 300 mg 05/19/18 18:00 05/22/18 17:18 Neurontin PO 300 mg BID PATTI Administration Protocol Piperacillin Sod/Tazobactam Sod 100 mls @ 25 mls/hr 05/20/18 07:00 05/23/18 05:44 Zosyn 3.375 In Ns 100ml IVPB 05/27/18 07:01 25 mls/hr Q8 PATTI Administration Protocol Midazolam 100 mg/100ml in NS 100 mg in 100 mls @ 7 mls/hr 05/20/18 08:31 05/22/18 16:05 Midazolam 100 Mg/100ml In Ns IV 7 mg/hr .[id number] PRN 7 mls/hr Seizure activity Administration Protocol 7 MG/HR Sodium Chloride 1,000 mls @ 100 mls/hr 05/20/18 10:45 05/21/18 22:15 Sodium Chloride 0.9% IV 100 mls/hr .Q10H PATTI Administration Propofol 1,000 mg in 100 mls @ 1.796 mls/hr 05/20/18 10:44 05/22/18 09:11 Diprivan IV 5 mcg/kg/min .Q24H PRN 1.796 mls/hr TITRATE PER MD ORDER Administration Protocol 5 MCG/KG/MIN NOREPINEPHRINE BIT/0.9 % NACL 4 mg in 250 mls @ 15 mls/hr 05/21/18 12:53 Levophed 4 Mg/ 250 Ml Ns Premixed IV .[id number] PRN TITRATE PER MD ORDER Protocol 4 MCG/MIN Dextrose 500 mls @ 50 mls/hr 05/22/18 11:30 05/22/18 21:45 Dextrose 10% In Water IV 50 mls/hr .Q10H PATTI Administration Dextrose/Sodium Chloride 1,000 mls @ 50 mls/hr 05/22/18 11:18 05/22/18 11:30 Dextrose 5%/0.45% Ns 1000 Ml IV 50 mls/hr .Q20H PATTI Administration Levetiracetam 750 mg/ Sodium 107.5 mls @ 322.5 mls/hr 05/22/18 18:00 05/23/18 05:40 Chloride IV 322.5 mls/hr Q12H PATTI Administration Insulin Detemir 6 unit 05/22/18 22:00 05/22/18 22:03 Levemir SC 6 u HS PATTI Administration Insulin Human Lispro 0 units 05/20/18 07:30 05/22/18 22:00 Humalog Low SC Not Given ACHS [facility] Protocol Levalbuterol HCl 1.25 mg 05/20/18 08:00 05/23/18 03:01 Xopenex IH 1.25 mg [id number] PATTI Administration Metoclopramide HCl 5 mg 05/19/18 22:00 05/22/18 22:11 Reglan PO 5 mg HS PATTI Administration Ondansetron HCl 4 mg 05/19/18 22:00 05/23/18 05:45 Zofran Tab PO 4 mg Q8 PATTI Administration Pantoprazole Sodium 40 mg 05/21/18 10:00 05/22/18 09:09 Protonix Inj IVP 40 mg DAILY PATTI Administration Venlafaxine HCl 75 mg 05/20/18 10:00 05/22/18 09:08 Effexor Xr PO 75 mg DAILY PATTI Administration - Patient Studies Lab Studies: Microbiology Studies 05/20/18 07:40 Blood Culture - Preliminary Blood-Venous NO GROWTH AFTER 48 HOURS 05/20/18 07:10 Blood Culture - Preliminary Blood-Venous NO GROWTH AFTER 48 HOURS Lab Studies 05/22/18 05/22/18 05/22/18 Range/Units 21:57 16:05 11:01 pCO2 (35-45) mm/Hg pO2 (80-100) mm/Hg HCO3 (21-28) mmol/L ABG pH (7.35-7.45) ABG Total CO2 (22-28) mmol.L ABG O2 Saturation (95-98) % ABG O2 Content (15-23) ML/dl ABG Base Excess (-2.0-3.0) mmol/L ABG Hemoglobin (11.7-17.4) g/dL ABG Carboxyhemoglobin (0.5-1.5) % POC ABG HHb (Measured) (0-5) % ABG Methemoglobin (0.0-3.0) % ABG O2 Capacity (16-24) mL/dl Hgb O2 Saturation (95.0-98.0) % FiO2 % POC Glucose (mg/dL) 151 H 75 61 L (65-110) mg/dL Magnesium (1.7-2.2) mg/dL 05/22/18 05/22/18 05/22/18 Range/Units 07:27 06:50 05:30 pCO2 33 L (35-45) mm/Hg pO2 120.0 H (80-100) mm/Hg HCO3 20.9 L (21-28) mmol/L ABG pH 7.41 (7.35-7.45) ABG Total CO2 21.9 L (22-28) mmol.L ABG O2 Saturation 97.1 (95-98) % ABG O2 Content 10.4 L (15-23) ML/dl ABG Base Excess -3.3 L (-2.0-3.0) mmol/L ABG Hemoglobin 7.5 L (11.7-17.4) g/dL ABG Carboxyhemoglobin 0.4 L (0.5-1.5) % POC ABG HHb (Measured) 2.9 (0-5) % ABG Methemoglobin 0.4 (0.0-3.0) % ABG O2 Capacity 10.7 L (16-24) mL/dl Hgb O2 Saturation 96.3 (95.0-98.0) % FiO2 50.0 % POC Glucose (mg/dL) 132 H (65-110) mg/dL Magnesium 2.3 H (1.7-2.2) mg/dL Laboratory Results - last 24 hr 05/22/18 05/22/18 05/22/18 05:30 06:50 07:27 pCO2 33 L pO2 120.0 H HCO3 20.9 L ABG pH 7.41 ABG Total CO2 21.9 L ABG O2 Saturation 97.1 ABG O2 Content 10.4 L ABG Base Excess -3.3 L ABG Hemoglobin 7.5 L ABG Carboxyhemoglobin 0.4 L POC ABG HHb (Measured) 2.9 ABG Methemoglobin 0.4 ABG O2 Capacity 10.7 L Hgb O2 Saturation 96.3 FiO2 50.0 POC Glucose (mg/dL) 132 H Magnesium 2.3 H 05/22/18 05/22/18 05/22/18 11:01 16:05 21:57 pCO2 pO2 HCO3 ABG pH ABG Total CO2 ABG O2 Saturation ABG O2 Content ABG Base Excess ABG Hemoglobin ABG Carboxyhemoglobin POC ABG HHb (Measured) ABG Methemoglobin ABG O2 Capacity Hgb O2 Saturation FiO2 POC Glucose (mg/dL) 61 L 75 151 H Magnesium Radiology Impressions: Radiology Impressions Chest X-Ray 05/22/18 06:00 IMPRESSION: Improving pulmonary edema without complete resolution. High endotracheal tube described above and marked on the study for review Brain MRI 05/22/18 09:05 IMPRESSION: There are large areas of restricted diffusion/prolonged T2 signal changes within the the watershed zones of the occipito parietal and parietal and posterior frontal regions predominately involving the cortex.. Rule out watershed zone acute infarcts possibly related to prolonged seizures or hypertensive episode; rule out posterior reversible encephalopathy syndrome (PRES). Note these findings were discussed with Dr. Glynn at approximately 11:25 a.m. with written down and read back verification Fingerstick Blood Sugar Results: 151 Critical Care Progress Note - Nutrition Nutrition: Nutrition Category Date Time Status NPO Diet [DIET] Diets 05/19/18 Dinner Ordered <Anil Monet - Last Filed: 05/23/18 12:46> CCU Objective - Vital Signs / Intake & Output Vital Signs (Last 4 hours): Vital Signs Temp Pulse Resp BP 05/23/18 12:38 97.3 F L 80 20 123/78 Intake and Output (Last 8hrs): Intake & Output 05/22/18 05/23/18 05/23/18 22:59 06:59 14:59 Intake Total 1762 1508 Output Total 1650 1400 Balance 112 108 Intake: IV 1762 1408 0.9 22 D10W 350 550 K 400 LEVOPHED 56 20 Right Internal Jugular 700 550 abx 200 200 propofol 20 versed 36 66 Oral 0 Other 100 Output: Gastric Amount 0 Nares 0 Urine 1650 1400 Urethral (Wan) 1650 1400 Other: # Bowel Movements 2 3 - Medications Active Medications: Active Medications Generic Name Dose Route Start Last Admin Trade Name Freq PRN Reason Stop Dose Admin Dicyclomine HCl 10 mg 05/19/18 18:00 05/23/18 09:57 Bentyl PO 10 mg TID PATTI Administration Ergocalciferol 1 cap 05/22/18 07:15 05/22/18 08:19 Drisdol 50,000 Intl Units Cap PO 1 cap Q7D PATTI Administration Gabapentin 300 mg 05/19/18 18:00 05/23/18 09:57 Neurontin PO 300 mg BID PATTI Administration Protocol Piperacillin Sod/Tazobactam Sod 100 mls @ 25 mls/hr 05/20/18 07:00 05/23/18 05:44 Zosyn 3.375 In Ns 100ml IVPB 05/27/18 07:01 25 mls/hr Q8 PATTI Administration Protocol Midazolam 100 mg/100ml in NS 100 mg in 100 mls @ 7 mls/hr 05/20/18 08:31 05/22/18 16:05 Midazolam 100 Mg/100ml In Ns IV 7 mg/hr .[id number] PRN 7 mls/hr Seizure activity Administration Protocol 7 MG/HR Sodium Chloride 1,000 mls @ 100 mls/hr 05/20/18 10:45 05/21/18 22:15 Sodium Chloride 0.9% IV 100 mls/hr .Q10H PATTI Administration Propofol 1,000 mg in 100 mls @ 1.796 mls/hr 05/20/18 10:44 05/22/18 09:11 Diprivan IV 5 mcg/kg/min .Q24H PRN 1.796 mls/hr TITRATE PER MD ORDER Administration Protocol 5 MCG/KG/MIN NOREPINEPHRINE BIT/0.9 % NACL 4 mg in 250 mls @ 15 mls/hr 05/21/18 12:53 Levophed 4 Mg/ 250 Ml Ns Premixed IV .[id number] PRN TITRATE PER MD ORDER Protocol 4 MCG/MIN Levetiracetam 750 mg/ Sodium 107.5 mls @ 322.5 mls/hr 05/22/18 18:00 05/23/18 05:40 Chloride IV 322.5 mls/hr Q12H PATTI Administration Insulin Human Lispro 0 units 05/20/18 07:30 05/23/18 08:08 Humalog Low SC Not Given ACHS PATTI Protocol Levalbuterol HCl 1.25 mg 05/20/18 08:00 05/23/18 07:44 Xopenex IH 1.25 mg [id number] PATTI Administration Metoclopramide HCl 5 mg 05/19/18 22:00 05/22/18 22:11 Reglan PO 5 mg HS PATTI Administration Ondansetron HCl 4 mg 05/19/18 22:00 05/23/18 05:45 Zofran Tab PO 4 mg Q8 PATTI Administration Pantoprazole Sodium 40 mg 05/21/18 10:00 05/23/18 09:57 Protonix Inj IVP 40 mg DAILY PATTI Administration Venlafaxine HCl 75 mg 05/20/18 10:00 05/23/18 10:03 Effexor Xr PO Not Given DAILY PATTI - Patient Studies Lab Studies: Microbiology Studies 05/20/18 07:40 Blood Culture - Preliminary Blood-Venous NO GROWTH AFTER 3 DAYS 05/20/18 07:10 Blood Culture - Preliminary Blood-Venous NO GROWTH AFTER 3 DAYS Lab Studies 05/23/18 05/23/18 05/23/18 Range/Units 09:42 09:42 08:11 WBC (4.5-11.0) 10^3/uL RBC (3.5-6.1) 10^6/uL Hgb (12.0-16.0) g/dL Hct (36.0-48.0) % MCV (80.0-105.0) fl MCH (25.0-35.0) pg MCHC (31.0-37.0) g/dl RDW (11.5-14.5) % Plt Count (120.0-450.0) 10^3/uL MPV (7.0-11.0) fl Sodium (132-148) mmol/L Potassium (3.6-5.0) mmol/L Chloride (98-107) mmol/L Carbon Dioxide (21-33) mmol/L Anion Gap (10-20) BUN (7-21) mg/dL Creatinine (0.7-1.2) mg/dl Est GFR ( Amer) Est GFR (Non-Af Amer) POC Glucose (mg/dL) (65-110) mg/dL Random Glucose (70-110) mg/dL Calcium (8.4-10.5) mg/dL Magnesium 2.3 H (1.7-2.2) mg/dL Iron 15 L (45-180) ug/dL TIBC 224 L (265-497) ug/dL % Saturation 7 L (20-55) % Total Bilirubin (0.2-1.3) mg/dL AST (14-36) U/L ALT (7-56) U/L Alkaline Phosphatase (38-126) U/L Total Protein (5.8-8.3) g/dL Albumin (3.0-4.8) g/dL Globulin gm/dL Albumin/Globulin Ratio (1.1-1.8) Blood Type B POSITIVE Antibody Screen Negative Crossmatch See Detail BBK History Checked Patient has bt 05/23/18 05/23/18 05/23/18 Range/Units 08:01 06:30 06:30 WBC 3.2 L D (4.5-11.0) 10^3/uL RBC 2.92 L (3.5-6.1) 10^6/uL Hgb 7.2 L (12.0-16.0) g/dL Hct 22.4 L (36.0-48.0) % MCV 76.7 L (80.0-105.0) fl MCH 24.7 L (25.0-35.0) pg MCHC 32.1 (31.0-37.0) g/dl RDW 15.7 H (11.5-14.5) % Plt Count 182 (120.0-450.0) 10^3/uL MPV 10.4 (7.0-11.0) fl Sodium 139 (132-148) mmol/L Potassium 3.4 L (3.6-5.0) mmol/L Chloride 112 H (98-107) mmol/L Carbon Dioxide 22 (21-33) mmol/L Anion Gap 8 L (10-20) BUN 35 H (7-21) mg/dL Creatinine 1.4 H (0.7-1.2) mg/dl Est GFR ( Amer) 47 Est GFR (Non-Af Amer) 39 POC Glucose (mg/dL) 206 H (65-110) mg/dL Random Glucose 166 H (70-110) mg/dL Calcium 7.2 L (8.4-10.5) mg/dL Magnesium (1.7-2.2) mg/dL Iron (45-180) ug/dL TIBC (265-497) ug/dL % Saturation (20-55) % Total Bilirubin 0.2 (0.2-1.3) mg/dL AST 37 H D (14-36) U/L ALT 34 (7-56) U/L Alkaline Phosphatase 207 H D (38-126) U/L Total Protein 4.4 L (5.8-8.3) g/dL Albumin 2.0 L (3.0-4.8) g/dL Globulin 2.4 gm/dL Albumin/Globulin Ratio 0.9 L (1.1-1.8) Blood Type Antibody Screen Crossmatch BBK History Checked 05/22/18 05/22/18 Range/Units 21:57 16:05 WBC (4.5-11.0) 10^3/uL RBC (3.5-6.1) 10^6/uL Hgb (12.0-16.0) g/dL Hct (36.0-48.0) % MCV (80.0-105.0) fl MCH (25.0-35.0) pg MCHC (31.0-37.0) g/dl RDW (11.5-14.5) % Plt Count (120.0-450.0) 10^3/uL MPV (7.0-11.0) fl Sodium (132-148) mmol/L Potassium (3.6-5.0) mmol/L Chloride (98-107) mmol/L Carbon Dioxide (21-33) mmol/L Anion Gap (10-20) BUN (7-21) mg/dL Creatinine (0.7-1.2) mg/dl Est GFR ( Amer) Est GFR (Non-Af Amer) POC Glucose (mg/dL) 151 H 75 (65-110) mg/dL Random Glucose (70-110) mg/dL Calcium (8.4-10.5) mg/dL Magnesium (1.7-2.2) mg/dL Iron (45-180) ug/dL TIBC (265-497) ug/dL % Saturation (20-55) % Total Bilirubin (0.2-1.3) mg/dL AST (14-36) U/L ALT (7-56) U/L Alkaline Phosphatase (38-126) U/L Total Protein (5.8-8.3) g/dL Albumin (3.0-4.8) g/dL Globulin gm/dL Albumin/Globulin Ratio (1.1-1.8) Blood Type Antibody Screen Crossmatch BBK History Checked Laboratory Results - last 24 hr 05/22/18 05/22/18 05/23/18 16:05 21:57 06:30 WBC 3.2 L D RBC 2.92 L Hgb 7.2 L Hct 22.4 L MCV 76.7 L MCH 24.7 L MCHC 32.1 RDW 15.7 H Plt Count 182 MPV 10.4 Sodium Potassium Chloride Carbon Dioxide Anion Gap BUN Creatinine Est GFR ( Amer) Est GFR (Non-Af Amer) POC Glucose (mg/dL) 75 151 H Random Glucose Calcium Magnesium Iron TIBC % Saturation Total Bilirubin AST ALT Alkaline Phosphatase Total Protein Albumin Globulin Albumin/Globulin Ratio Blood Type Antibody Screen Crossmatch BBK History Checked 05/23/18 05/23/18 05/23/18 06:30 08:01 08:11 WBC RBC Hgb Hct MCV MCH MCHC RDW Plt Count MPV Sodium 139 Potassium 3.4 L Chloride 112 H Carbon Dioxide 22 Anion Gap 8 L BUN 35 H Creatinine 1.4 H Est GFR ( Amer) 47 Est GFR (Non-Af Amer) 39 POC Glucose (mg/dL) 206 H Random Glucose 166 H Calcium 7.2 L Magnesium 2.3 H Iron TIBC % Saturation Total Bilirubin 0.2 AST 37 H D ALT 34 Alkaline Phosphatase 207 H D Total Protein 4.4 L Albumin 2.0 L Globulin 2.4 Albumin/Globulin Ratio 0.9 L Blood Type Antibody Screen Crossmatch BBK History Checked 05/23/18 05/23/18 09:42 09:42 WBC RBC Hgb Hct MCV MCH MCHC RDW Plt Count MPV Sodium Potassium Chloride Carbon Dioxide Anion Gap BUN Creatinine Est GFR ( Amer) Est GFR (Non-Af Amer) POC Glucose (mg/dL) Random Glucose Calcium Magnesium Iron 15 L TIBC 224 L % Saturation 7 L Total Bilirubin AST ALT Alkaline Phosphatase Total Protein Albumin Globulin Albumin/Globulin Ratio Blood Type B POSITIVE Antibody Screen Negative Crossmatch See Detail BBK History Checked Patient has bt Radiology Impressions: Radiology Impressions Chest X-Ray 05/23/18 06:00 IMPRESSION: The endotracheal tube remains high in position 12 cm above the madisyn and 3 cm above the clavicles. There is minimal perihilar congestion. Critical Care Progress Note - Nutrition Nutrition: Nutrition Category Date Time Status NPO Diet [DIET] Diets 05/19/18 Dinner Ordered Assessment/Plan - Assessment and Plan (Free Text) Assessment: Patient seen and examined on rounds with resident, agree with note with following additions/exceptions: Patient is 57 year old female with PMHx of HTN, uncontrolled DM2 complicated by retinopathy/gastroparesis, MDD, LAUREN, and TIA/CVA who was admitted for evaluation and treatment of seizure like activity. Patient aspirated and was intubated due to an inability to protect her airway. Currently afebrile, BP stable in NAD, on Levophed 4mcg/min Neuro exam as above Repeat CT head done, no intracranial abnormality MRI brain done, results noted CXR with RML/RLL PNA, on abx, ID following Sedation shut off this morning, placed on pressure support, although does well on pressure support, with good RSBI/TV, does not respond to painful verbal stimuli Seizure disorder Aspiration PNA Fever DM Hx TIA/CVA Renal failure Hypokalemia rule out PRES syndrome, watershed infarcts Recommend: - cont with low tidal ventilation, duonebs PRN - Broad spectrum Abx as per ID, panculture, UCx, BCx, Procal 25 - start feeds - IVF, NS 100cc/hr - follow up renal - follow up neuro - FS control - Replete K and Mg, then repeat BMP - monitor LFTs - transfuse 1u PRBC - GI ppx - DVT ppx, HSQ - Monitor in MICU Poor prognosis Critical care time 30 mintes
[2018-05-23 07:02] LABS: HEMOGLOBIN 7.2 g/dL (12.0-16.0); MEAN CELL VOLUME 76.7 fl (80.0-105.0); MEAN CORPUSCULAR HEMOGLOBIN 24.7 pg (25.0-35.0); MEAN CORPUSCULAR HGB CONC 32.1 g/dl (31.0-37.0); MEAN PLATELET VOLUME 10.4 fl (7.0-11.0); RBC 2.92 10^6/uL (3.5-6.1); RED CELL DISTRIBUTION WIDTH 15.7 % (11.5-14.5); WHITE BLOOD COUNT 3.2 10^3/uL (4.5-11.0)
[2018-05-23 07:07] LABS: ALB/GLOB RATIO 0.9 (1.1-1.8); CALCIUM 7.2 mg/dL (8.4-10.5)
[2018-05-23] MEDS: Insulin Lispro (humaLOG) LOW Coverage SC SCH ×4 (08:08→21:59)
--- NOTE | 2018-05-23 08:42 | PN ---
DATE: 05/21/2018 SUBJECTIVE: The patient is in room 128, bed 1 in the ICU. The patient seen early this morning. The patient is on a vent. Overall in poor condition, but no fevers and no diarrhea is reported. PHYSICAL EXAMINATION: VITAL SIGNS: On exam, temperature is 97. The patient did have a temperature of 103.3 yesterday, heart rate of 120, blood pressure is 97/56, it was as low as 82/39, respiratory rate on the vent. HEENT: Examination of HEENT is unremarkable. The patient has an NG tube and an ET tube. NECK: Supple. LUNGS: Decreased breath sounds. HEART: Normal S1, S2. ABDOMEN: Soft and nontender. LABORATORY DATA: The patient had a chest x-ray this morning, results are not available at this time. Chest x-ray from yesterday reveals stable bilateral infiltrates. White count is 3, hemoglobin of 8, platelets of 160. BUN of 44 and creatinine of 1.9. Procalcitonin is 25.35. The patient's creatinine from 05/17/2018 was 0.9. Review of the blood cultures are no growth, MRSA screen is not detected. Review of orders reveals the patient to be on intermittent vancomycin dose was given yesterday. The patient is also on Zosyn. ASSESSMENT AND PLAN: This is a 57-year-old female who is known to me from previous admissions, was allergic to vancomycin, with hypertension, diabetes, gastroparesis, transient ischemic attack, history of esophageal ulcers, history of cholecystectomy, , hysterectomy, right foot partial amputation, who was on this admission is admitted with seizures which is new onset with respiratory failure intubated on a ventilator, on Levophed, with septic shock with bilateral healthcare-associated pneumonia, with elevated procalcitonin, with acute kidney injury, probable extremely elevated procalcitonin even in the face of renal failure, the GFR of 27, on Zosyn with a negative nasal MRSA would make MRSA pneumonia unlikely. Etiology of this seizure is unclear. The patient did have a CT scan of the head, which showed no evidence of any acute changes. Another CT scan of the head, also no acute findings. CT scan of the head from the 05/19/2018 had no contrast according to Dr. Josafat Dent. The patient's family had stated that the patient had not been confused, had been perfectly herself up to the date that she had seizures. She was not behaving as encephalopathic. There was no change in mental status change. We will continue the Zosyn at this point and follow the patient. Overall prognosis is poor. Case discussed with Dr. Dent. We will follow with you. Marc Sales MD
--- NOTE | 2018-05-23 08:45 | CON ---
DATE: 05/20/2018 CARDIOLOGY CONSULTATION HISTORY OF PRESENT ILLNESS: The patient is a 57-year-old woman, who presented to the emergency room after experiencing episodes of nausea and vomiting. PAST MEDICAL HISTORY: The patient's past medical history includes diabetes mellitus and gastroparesis, which has been difficult to treat. In addition, she suffers from COPD. The patient was found to have a tonic-clonic seizure, which was witnessed, which resulted in respiratory failure. Social history and review of systems are not available. PHYSICAL EXAMINATION: GENERAL: Currently, the patient is intubated and sedated. VITAL SIGNS: The blood pressure is 140/68, the heart rate is in the 80s. NECK: Negative JVD. LUNGS: Good breath sounds. HEART: Reveal S1, S2. EXTREMITIES: Without edema. LABORATORY DATA: EKG shows no acute changes. Troponin is negative x1. BUN and creatinine 33 and 1.8. Glucose 317. Hemoglobin is 10.2. CT scan of the brain shows no acute changes. IMPRESSION: 1. Respiratory arrest. 2. Tonic-clonic seizure noted. 3. Diabetes mellitus. 4. Gastroparesis. 5. Chronic obstructive pulmonary disease. PLAN: Given these findings, there is no evidence for cardiac cause of her neurologic changes and her respiratory compromise. Her last echocardiogram shows good LV function, which was performed several months ago. There are no new EKG changes nor troponin suggestive of ischemia. Given these findings, we will repeat an echocardiogram to see whether there is any change in her LV function. Carter Farmer MD
--- NOTE | 2018-05-23 08:47 | PN ---
DATE: 05/21/2018 PULMONARY PROGRESS NOTE LOCATION: ICU 128, bed 1. SUBJECTIVE: The patient remains intubated on mechanical ventilation. The patient evaluated at the bedside with Dr. Andrea Hill pickler helper. Condition remains very significant with guarded prognosis. History has been reviewed. Case discussed with ICU staff. Etiology of these problems still remains unclear. Seizure disorder with encephalopathy and underlying chronic obstructive pulmonary disease are likely contributing factors. OBJECTIVE: GENERAL: The patient remains intubated on mechanical ventilation. VITAL SIGNS: Show a temperature of 97.7, pulse 78, respiratory rate 24, blood pressure 110/70. HEENT: Normocephalic, atraumatic. PERRLA. EOMs full. Conjunctivae pink. NECK: Supple. No JVD. No lymphadenopathy. HEART: Cor, regular rhythm. S1, S2 with soft systolic ejection murmur noted. CHEST: Bilateral rhonchi and rales. No wheezing appreciated. ABDOMEN: Soft. Bowel sounds normoactive. EXTREMITIES: Reveal no clubbing, cyanosis. There is trace edema. There is a amputation of the right foot. NEUROLOGIC: No focal findings. The patient is sedated on mechanical ventilation. LABORATORY DATA: Chest x-ray this morning shows bilateral fluffy infiltrates and bilateral pulmonary infiltrates which may be related to pulmonary vascular congestion. Additional laboratory studies shows anemia which remains stable. Sodium is somewhat low, BUN of 44, creatinine 1.9. Last arterial blood gas of note, pH 7.41, pCO2 30, pO2 92. CLINICAL IMPRESSION: 1. Respiratory failure. 2. Aspiration pneumonia. 3. Pulmonary vascular congestion - congestive heart failure. 4. Seizure disorder. 5. Anemia. 6. Renal insufficiency with encephalopathy. 7. Diabetes mellitus. 8. Chronic obstructive pulmonary disease. PLAN: Continue vigorous supportive care, mechanical ventilation continues, inhaled bronchodilators and corticosteroids, ventilatory support, antibiotics. Case discussed at length with the pickler helper and ICU staff. Continue vigorous supportive care. Long-term prognosis remains guarded. Armando Freeman MD
--- NOTE | 2018-05-23 08:50 | PN ---
DATE: 05/20/2018 ENDOCRINOLOGY FOLLOWUP NOTE LOCATION: ICU 128, Room 1. SUBJECTIVE: This is a 57-year-old female with recent uncontrolled type 2 insulin-requiring diabetes with significant history of diabetic gastroparesis, presenting here with an apparent tonic-clonic seizure event and is now undergoing neurologic workup and management and is being followed closely for metabolic management. She has been kept n.p.o. at this time as noted. Her glycemic levels are fluctuating with glucose values ranging from 299-317 mg/dL. LABORATORY DATA: Her latest chemistry showed a BUN of 33, sodium 132, potassium 2.8, chloride 99, CO2 of 23, glucose 317 and creatinine 1.8. Her A1c is 11 which is quite elevated and indicative of suboptimal metabolic control of her diabetic condition. Her serum cortisol level is 43.5 and a TSH of 0.94. ASSESSMENT This is a 57-year-old female with uncontrolled and decompensated type 2 insulin-requiring diabetes with extremes of glycemic fluctuations, presenting here with an apparent grand mal seizure as witnessed by the family and is now undergoing nerve closer neurologic workup and hemodynamic monitoring in the ICU as noted. PLAN: Plan of management, we will increase and titrate her basal insulin to Levemir given as 14 units subcutaneous at bedtime daily to start tonight and will be given even if she is n.p.o. as noted. We will continue the low-dose correction scale using Humalog insulin as given. We will also continue the IV hydration as given and obtain serial chemistries accordingly and supplement as indicated. She received potassium supplementation as noted. We will follow and advise accordingly. As her oral intake is advanced, then we can start her back on the more physiologic basal and bolus insulin drug combination as indicated. We will follow. Tita Coe MD
--- NOTE | 2018-05-23 09:09 | RAD ---
Date of service: 05/23/2018 HISTORY: f/u COMPARISON: 05/22/2018 FINDINGS: LUNGS: The endotracheal tube remains high in position 12 cm above the madisyn and 3 cm above the clavicles. There is minimal perihilar congestion. PLEURA: No significant pleural effusion identified, no pneumothorax apparent. CARDIOVASCULAR: No aortic atherosclerotic calcification present. Normal cardiac size. No pulmonary vascular congestion. OSSEOUS STRUCTURES: No significant abnormalities. VISUALIZED UPPER ABDOMEN: Nasogastric tube in satisfactory position. Right-sided central line in the right atrium OTHER FINDINGS: None. IMPRESSION: The endotracheal tube remains high in position 12 cm above the madisyn and 3 cm above the clavicles. There is minimal perihilar congestion.
--- NOTE | 2018-05-23 09:30 | PN ---
PULMONARY PROGRESS NOTE DATE: 05/22/2018 SUBJECTIVE: The patient remains on mechanical ventilation on Diprivan. The patient is being transported to Radiology Department for MRI of the brain. She is currently stable on mechanical ventilation. She is being accompanied by respiratory therapy. PHYSICAL EXAMINATION: GENERAL: The patient remains stable on mechanical ventilation. VITAL SIGNS: Stable, afebrile. Blood pressure of 100/70, pulse 80 and respiratory rate 22. HEENT: Normocephalic and atraumatic. NECK: Supple. No JVD. No lymphadenopathy. HEART: Regular rhythm. S1 and S2. LUNGS: Global rhonchi noted as yesterday. ABDOMEN: Soft. Bowel sounds normoactive. EXTREMITIES: Reveal no clubbing or cyanosis. There is edema noted at both bases. Partial amputation of the right foot noted. NEUROLOGIC: No focal findings. The patient remains sedated on Diprivan. LABORATORY STUDIES: Chest x-ray done this morning shows no acute infiltrate. IMPRESSION: 1. Respiratory failure. 2. Abnormal mental status. 3. Seizure disorder. 4. Hyperglycemia. 5. Aspiration pneumonitis. 6. Cerebrovascular pathology. PLAN: Continue vigorous supportive care with mechanical ventilation, antibiotics, bronchodilators, etc. Followup x-ray to complete resolution. Await MRI of the brain regarding seizure disorder and abnormal mental status. We will discuss problems with [employer] Par[employer], Dr. Andrea Hill as well as the ICU staff. Armando Freeman MD
[2018-05-23] MEDS: Venlafaxine 75 mg ER Cap PO SCH (10:03)
[2018-05-23 10:05] LABS: IRON 15 ug/dL (45-180)
[2018-05-23 10:14] LABS: % IRON SATURATION 7 % (20-55); TOTAL IRON BINDING CAPACITY 224 ug/dL (265-497)
--- NOTE | 2018-05-23 11:13 | PN ---
DATE: 05/23/2018 SUBJECTIVE: The patient is seen earlier today in 128, bed 1. She is intubated on a ventilator, poorly responsive with no fevers reported on exam. OBJECTIVE: VITAL SIGNS: Temperature is 97.5, blood pressure is 106/60, respiratory rate of on the vent, heart rate of 76. HEENT: Unremarkable. NECK: Supple. LUNGS: Have decreased breath sounds. HEART: Normal S1, S2. ABDOMEN: Soft, nontender. LABORATORY EXAMINATION: Reveals a white count of 3.2, hemoglobin of 7, platelets of 182. Chemistries are noted. Urinalysis is noted and toxicology is reviewed. Serology is noted. Microbiology reveals the blood cultures are negative. MRSA is not detected. The patient had a chest x-ray. The shows the endotracheal tube remains high and there is peripheral congestion. ASSESSMENT/PLAN: The 57-year-old female with severe sepsis, respiratory failure on a ventilator, healthcare-associated pneumonia, esophageal ulcers, hypertension, diabetes, transient ischemic attack. The patient had an MRI of the brain. Large areas of T2 signal. There is acute infarct. Dr. Carter's note is reviewed, and the patient with a new onset of seizures. Dr. Knight's note is appreciated. Dr. Freeman's note is reviewed from yesterday. . Currently, the patient is on Zosyn day #4. We will follow closely with you. Overall prognosis quite poor. Marc Sales MD
--- NOTE | 2018-05-23 11:23 | PN ---
DATE: 05/23/2018([id number]) SUBJECTIVE: The patient remains poorly responsive on the ventilator. She remains in the ICU. PHYSICAL EXAMINATION: VITAL SIGNS: Temperature 97.7, pulse 77, respirations 24/12, blood pressure 106/46. HEENT: Normocephalic, atraumatic. NECK: No JVD. CARDIOVASCULAR: Positive S1, S2. No S3 gallop. LUNGS: Decreased breath sounds at the bases. Less rhonchi. No wheezing. 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 There is no edema in her legs. There is no cyanosis or clubbing. GI: Abdomen is soft, nondistended. Bowel sounds are positive. SKIN: No acute rash. NEUROLOGIC: Exam limited at the present time. PERTINENT LABORATORY DATA: Chest x-ray was done this morning and reviewed. The chest x-ray shows significant clearing of the right-sided infiltrates. Arterial blood gas ordered - pending. IMPRESSION: 1. Seizure disorder. 2. Respiratory insufficiency. 3. Right lung pneumonia - rule out aspiration. 4. Encephalopathy. Rule out cerebrovascular accident. 5. Chronic obstructive pulmonary disease. 6. Diabetes mellitus. PLAN The patient remains on the ventilator and in the ICU. She remains poorly responsive. I did discuss the case with the night nurse at length. The night nurse confirmed that the patient has not regained a meaningful mental status. I did review the chest x-ray as above. The chest x-ray shows considerable clearing of the right-sided infiltrates. I would continue with the antibiotic coverage as per Infectious Disease. Input by Dr. Sales is noted. Temperatures have now resolved. On physical exam, there is significantly less bronchospasm noted. I will continue with the current nebulizer treatments for now. Inputs by Renal, Cardiology, and Neurology are also noted. The patient remains critically ill with overall poor prognosis. I will discuss the above with the entire ICU team in the next few moments. I will discuss the above with Dr. Dent later this morning. Cesar Enriquez MD [facility]
--- NOTE | 2018-05-23 12:17 | PN ---
DATE: 05/23/2018 SUBJECTIVE: The patient remains on a vent. PHYSICAL EXAMINATION: VITAL SIGNS: Blood pressure 106/70, heart rate is in the 70s. NECK: Negative JVD. LUNGS: Decreased breath sounds. HEART: Reveal S1 and S2. EXTREMITIES: Without change. LABORATORY DATA: Hemoglobin is down to 7.2. Chemistries, BUN and creatinine 35 and 1.4. IMPRESSION: 1. Respiratory failure. 2. Questionable anoxic encephalopathy. 3. History of gastroparesis. 4. Diabetes mellitus. 5. Normal left ventricular function on previous echocardiogram. PLAN: Given these findings, the patient's prognosis appears to be poor. Hemodynamically, the patient remains stable at this time. Carter Farmer MD
--- NOTE | 2018-05-23 13:33 | RAD ---
Date of service: 05/23/2018 PROCEDURE: Portable chest HISTORY: ET tube repositioned COMPARISON: Earlier same day TECHNIQUE: FINDINGS: The endotracheal tube is seen just above the level of the superior border of the clavicles. Slight increase in vascular congestion IMPRESSION: As above
--- NOTE | 2018-05-23 13:47 | CP.PCM.PN ---
Subjective - Date & Time of Evaluation Date of Evaluation: 05/23/18 Time of Evaluation: 13:46 - Subjective Subjective: Nephrology Consultation Note: Assessment: critical Acute Kidney Injury (N17.9) likely hemodynamic injury due to BP fluctuations, sepsis with shock urine retention likely neurogenic bladder ? seizure with abnormal EEG/MRI--PRESS, aspiration pneumonia hyperglycemia with uncontrolled DM Anemia , hypokalemia hypomagnesemia hyponatremia Diabetic chronic Kidney Disease (E11.22) Hypertensive Chronic Kidney Disease (I12.9) Chronic Kidney Disease (N18.1) Stage with ? mg proteinuria (R80.9) likely due to DM Type 1 diabetes Mellitus (>20 years) complicated by neuropathy, retinopathy and gastroparesis neurogenic bladder hx of TIA, GERD, kidney stones, hx of hemicolectomy severe pulmonary HTN Plan No acute need for renal replacement therapy at this time. Patient not on ACEI/ARB due to ANTONIO, will consider to resume once ANTONIO resolves. continue with IVF as ordered. supplement lytes as needed. NS bolus as needed for low BP Monitor Input/Output, daily weights and renal function with basic metabolic panel supplement lytes started weekly vit D Neuro, ID following PRBC as needed for anemia Check urine spot protein/creatinine and albumin/creatinine ratio Check for 25-OH vitamin D, iPTH, phosphorus level Anemia work up with TSAT/Ferritin and b12/folate level Dose meds/antibiotics for reduced GFR. Avoid fleets enema/magnesium based laxatives. Avoid nephrotoxins/NSAIDs/ iodinated contrast (unless needed emergently) Glycemic control Further work up/management as per primary team Thanks for allowing me to participate in care of your patient. Will follow patient with you. Please call if any Qs. had d/w team Dr Onesimo Guerra Office: [phone] Chief Complaint; seizure reason for consult: ANTONIO HPI: Pt is a 57 F with hx of Type 1 diabetes Mellitus (>20 years) complicated by neuropathy, retinopathy, gastroparesis, neurogenic bladder hypertension (years), TIA, GERD, kidney stones, hx of hemicolectomy presented with complaints of seizures and aspiration pneumonia. renal consult for ANTONIO evaluation and management. Denies OTC/herbal meds or NSAIDs Noted recent iodinated contrast exposure on 05/16/18. Noted obvious episodes of low BP (SBP 90s), high BP (SBP 200+) ROS: unable to obtain. off pressors. BP and urine output better Physical Examination: General Appearance: comfortable, in no acute respiratory distress, intubated sedated Vitals reviewed and noted as below Head; Atraumatic, normocephalic ENT: orally intubated Neck; supple no lymphadenopathy, no thyromegaly or bruit Lungs: Normal respiratory rate/effort. Breath sounds bilateral equal and rt basal crackle Heart: Normal rate. s1s2 normal. No rub or gallop. Extremities: no edema. No varicose veins Neurological: Patient is sedated Skin: Warm and dry. Normal turgor. No rash. Palpitation: Normal elasticity for age Abdomen: Abdomen is soft. Bowel sounds +. There is no abdominal tenderness, no guarding/rigidity no organomegaly Psych: deferred MSK: no joint tenderness or swelling. Digits and nails normal, no deformity : kidney not palpable has gay Labs/imaging reviewed. Past medical history, past surgical history, family history, social history, allergy reviewed and noted as below Family hx: no hx of CKD. Rest non-contributory work up: UA 3+ protein with moderate blood a1c 10.2% CT abdomen: normal adrenal. hx of b/l nephrolithiasis. distended urinary bladder Objective - Vital Signs/Intake and Output Vital Signs (last 24 hours): Temp Pulse Resp BP Pulse Ox 97.5 F L 80 19 155/90 H 96 05/23/18 12:58 05/23/18 12:58 05/23/18 12:58 05/23/18 12:58 05/23/18 08:20 Intake and Output: 05/23/18 05/23/18 06:59 18:59 Intake Total 1508 0 Output Total 1400 Balance 108 0 - Medications Medications: Current Medications Dicyclomine HCl (Bentyl) 10 mg PO TID [facility] Last Admin: 05/23/18 09:57 Dose: 10 mg Ergocalciferol (Drisdol 50,000 Intl Units Cap) 1 cap PO Q7D [facility] Last Admin: 05/22/18 08:19 Dose: 1 cap Gabapentin (Neurontin) 300 mg PO BID [facility]; Protocol Last Admin: 05/23/18 09:57 Dose: 300 mg Piperacillin Sod/Tazobactam Sod (Zosyn 3.375 In Ns 100ml) 100 mls @ 25 mls/hr IVPB Q8 [facility]; Protocol Stop: 05/27/18 07:01 Last Admin: 05/23/18 05:44 Dose: 25 mls/hr Midazolam 100 mg/100ml in NS (Midazolam 100 Mg/100ml In Ns) 100 mg in 100 mls @ 7 mls/hr IV .[id number] PRN; Protocol PRN Reason: Seizure activity Last Admin: 05/22/18 16:05 Dose: 7 mg/hr, 7 mls/hr Sodium Chloride (Sodium Chloride 0.9%) 1,000 mls @ 100 mls/hr IV .Q10H [facility]TI Last Admin: 05/21/18 22:15 Dose: 100 mls/hr Propofol (Diprivan) 1,000 mg in 100 mls @ 1.796 mls/hr IV .Q24H PRN; Protocol PRN Reason: TITRATE PER MD ORDER Last Admin: 05/22/18 09:11 Dose: 5 mcg/kg/min, 1.796 mls/hr NOREPINEPHRINE BIT/0.9 % NACL (Levophed 4 Mg/ 250 Ml Ns Premixed) 4 mg in 250 mls @ 15 mls/hr IV .[id number] PRN; Protocol PRN Reason: TITRATE PER MD ORDER Levetiracetam 750 mg/ Sodium (Chloride) 107.5 mls @ 322.5 mls/hr IV Q12H [facility] Last Admin: 05/23/18 05:40 Dose: 322.5 mls/hr Insulin Human Lispro (Humalog Low) 0 units SC ACHS [facility]TI; Protocol Last Admin: 05/23/18 08:08 Dose: Not Given Levalbuterol HCl (Xopenex) 1.25 mg IH [id number] [facility] Last Admin: 05/23/18 13:25 Dose: 1.25 mg Metoclopramide HCl (Reglan) 5 mg PO HS [facility] Last Admin: 05/22/18 22:11 Dose: 5 mg Ondansetron HCl (Zofran Tab) 4 mg PO Q8 [facility] Last Admin: 05/23/18 05:45 Dose: 4 mg Pantoprazole Sodium (Protonix Inj) 40 mg IVP DAILY [facility] Last Admin: 05/23/18 09:57 Dose: 40 mg Venlafaxine HCl (Effexor Xr) 75 mg PO DAILY [facility] Last Admin: 05/23/18 10:03 Dose: Not Given - Labs Labs: 05/23/18 06:30 05/23/18 06:30 PT 14.3 SECONDS (9.4-12.5) H 05/21/18 10:15 INR 1.24 05/21/18 10:15 APTT 27.9 Seconds (25.1-36.5) 05/21/18 10:15
--- NOTE | 2018-05-23 13:48 | PN ---
DATE: 05/23/2018 SUBJECTIVE: I saw her in the intensive care unit. She still on the ventilator, completely out of it. I discussed this with the neurologist and it feels like it is a watershed CVA with possible PRES. PHYSICAL EXAMINATION: VITAL SIGNS: She has 97.5 temperature, 78 pulse, 106/69 blood pressure, 96% oxygen sat, 32% end-tidal CO2. HEENT: Head is atraumatic and normocephalic. HEART: Regular rate. LUNGS: Decreased breath sounds. ABDOMEN: Soft. EXTREMITIES: No edema. MEDICATIONS: She is on Bentyl, dextrose to prevent residual effects of insulin Levemir, Keppra IV, Levophed, midazolam, Neurontin, potassium replacement, Protonix, Reglan, IV fluids, Xopenex, Zofran, and Zosyn. LABORATORY DATA: She has a 3.2 white count, 7.2 hemoglobin and I am going to transfuse her 2 units of packed red blood cells, hematocrit 22.4, and platelets 182 . Sodium 139 , potassium 3.4, I am going to replace potassium, BUN 35, creatinine 1.4, GFR is 39, sugar is 156, calcium 7.2, magnesium is 2.3, total bili is 0.2, AST is 37, ALT is 35 and alk phos 207, total protein is 4.4. ASSESSMENT AND PLAN: She is in trouble. Hopefully, she is going to reverse some of this watershed strokes with universal treatment and care in the intensive care unit. Josafat Dent DO
--- NOTE | 2018-05-23 16:39 | PN ---
DATE: 05/23/2018 ENDOCRINOLOGY FOLLOWUP NOTE LOCATION: ICU 128, Room 1. SUBJECTIVE: This is a 57-year-old male female with recent uncontrolled type 2 insulin-requiring diabetes with a recent grand mal seizure event, currently undergoing neurological workup at this time and is being followed closely also for metabolic management. Her glycemic levels are fluctuating because of the variability of her oral intake as noted. She still has been kept n.p.o. as noted thereof. Her latest glucose values have ranged from 75-151 and 206 mg/dL. LABORATORY DATA: Her latest chemistry showed a BUN of 35, sodium 139, potassium 3.4, chloride 112, CO2 Of 22, glucose 166 and creatinine 1.4. ASSESSMENT AND PLAN: So at this time, she has been taken off basal insulin as noted. We will continue however, the low-dose correction scale using Humalog insulin as given. As her oral intake is advanced, then we can resume and restart her basal and bolus insulin drug combination as indicated. We will follow. Tita oCe MD
[2018-05-23 18:03] LABS: FERRITIN 69.7 ng/mL
[2018-05-23 19:39] LABS: FOLATE 11.2 ng/mL
[2018-05-24] MEDS: Sodium Chloride 0.9% 1,000 ML IV SCH (01:58)
[2018-05-24] MEDS: Levalbuterol 1.25 MG/3 ML Inhal Soln UD IH SCH ×4 (02:41→20:53)
[2018-05-24] MEDS ORDERED: Metoprolol 1 mg/ml Inj IVP ONE (03:55)
[2018-05-24] MEDS: Piperacillin/Tazobact 3.375 gm 100 ML IVPB SCH ×3 (05:24→21:15)
[2018-05-24 06:21] LABS: ARTERIAL BLOOD GAS HCO3 16.6 mmol/L (21-28); ARTERIAL BLOOD GAS O2 CAPACITY 22.3 mL/dl (16-24); ARTERIAL BLOOD GAS O2 CONTENT 21.4 ML/dl (15-23); ARTERIAL BLOOD GAS O2 SAT 96.1 % (95-98); ARTERIAL BLOOD GAS PCO2 30 mm/Hg (35-45); ARTERIAL BLOOD GAS PH 7.35 (7.35-7.45); ARTERIAL BLOOD GAS TCO2 17.5 mmol.L (22-28)
--- NOTE | 2018-05-24 07:57 | CP.CCUPN ---
<Joao Carter - Last Filed: 05/24/18 11:10> CCU Subjective - Physician Review Subjective (Free Text): Joao Carter Internal Medicine Resident- Progress Note on Behalf of Critical Care Team Subjective: Patient seen and examined at bedside. No acute events. Opens eyes to verbal stimuli. Further subjective data cannot be ascertained at this time. 12 point ROS cannot be ascertained at this time due to altered mental status Physical Examination: - Constitutional Appears: No Acute Distress - Head Exam Head Exam: ATRAUMATIC, NORMAL INSPECTION, NORMOCEPHALIC - Eye Exam Eye Exam: sluggish pupillary response bilaterally - ENT Exam ENT Exam: Mucous Membranes Dry, Normal Exam - Neck Exam Neck exam: Positive for: Normal Inspection - Respiratory Exam Respiratory Exam: Clear to Auscultation Bilateral, Vented - Cardiovascular Exam Cardiovascular Exam: REGULAR RHYTHM, +S1, +S2. absent: Gallop, JVD, Rubs - GI/Abdominal Exam GI & Abdominal Exam: Normal Bowel Sounds, Soft. absent: Tenderness - Neurological Exam Neurological exam: Altered mental status, GCS [id number] - Skin Skin Exam: Dry, Intact, Normal Color, War Assessment and Plan: Patient is a 57 year old female with PMHx of HTN, uncontrolled DM2 complicated by retinopathy/gastroparesis, MDD, LAUREN, and TIA/CVA who was admitted for evaluation and treatment of seizure like activity. Patient suspected of experiencing aspiration. She was intubated/sedated due to an inability to protect her airway. Neuro Acute encephalopathy,AMS - rule out metabolic vs. toxic - 05/19/18 CT Head without Contrast- No acute findings - 05/20/2019 CT Head without Contrast- No evidence of acute intracranial hemorrhage mass effect or midline shift. No significant interval changes noted - 05/22/2018 Brain MRI without Contrast- There are large areas of restricted diffusion/prolonged T2 signal changes within the the watershed zones of the occipito parietal and parietal and posterior frontal regions predominately involving the cortex.. Rule out watershed zone acute infarcts possibly related to prolonged seizures or hypertensive episode - [id number] Seizures, Hx of TIA/CVA - patient was keppra loaded on admission - continue on keppra 750mg IV q12 - continue to hold versed drip 7mcg/hr & propofol @ 5mcg/kg/min - neurology consulted- appreciate recommendations- posterior reversible encephalopathy syndrome (PRES)- monitor over 72 hours for neuro improvement prior to considering trach, peg, ltac - high risk fall precautions Neurogenic Fever - keep euthermic Cardiovascular: Hx of HTN - continue to hold levophed - start clonidine 0.2mg/24 hours as per night team - start amlodipine 10mg PO daily - start losartan 100mg PO daily as per nephro - cardiology consulted (Dr. Farmer)- appreciate recommendation Resp: Respiratory Failure s/p Seizure Aspiration - intubated - continue PRVC TV400 RR12 [id number] [id number] - weaning trial and sedation trial daily Aspiration Pneumonia, HAP, Severe Sepsis - 05/19/18 CXR - No active disease - 05/20/18 CXR- right middle lobe infiltrated, gastric bubble noted - s/p vancomyin 1.5g IV x 1 - continue zosyn 3.375 q8h - infectious disease consulted (Dr. Sales)- appreciate recommendations GI Hx of Gastroparesis - NPO - continue reglan 5mg mg PO QS - continue zofran 4mg IV q8h - continue bentyl 10mg PO TID - discontinue NS@100cc/hr- start jevity at 10 goal 30 - GI consulted (Dr. Zambrano)- appreciate recommendations GI ppx: - protonix 40mg PO daily Endo Hx DM - continue to hold levemir 6 units SC HS - continue lispro insulin sliding scale low - fingersticks ACHS - maintain euglycemia - endocrinology consulted Dr Coe- appreciate recommendations Renal ANTONIO - likely pre-renal in nature, BUN creatinine returning to baseline - discontinue on IVF NS @ 100cc/hr - monitor closely via BMP/Creatinine - nephrology consulted- appreciate recommendations Heme Anemia - microcytic - hemoglobin 9.4 s/p 1 unit pRBCs - FOBT - serum iron- low, tibc- low, ferritin- wnl , folate- wnl, b12- elevated, anemia of chronic disease vs iron deficiency anemia DVT Ppx - SCD Patient case discussed with and plan approved by attending physician, Dr. Monet. CCU Objective - Vital Signs / Intake & Output Vital Signs (Last 4 hours): Vital Signs Pulse BP Pulse Ox 05/24/18 07:30 84 97 05/24/18 07:20 85 96 05/24/18 07:10 92 H 97 05/24/18 07:00 85 178/101 H 96 05/24/18 06:50 84 96 05/24/18 06:40 83 96 05/24/18 06:30 85 97 05/24/18 06:20 84 97 05/24/18 06:10 82 97 05/24/18 06:00 85 175/90 H 98 05/24/18 05:50 87 97 05/24/18 05:40 84 97 05/24/18 05:30 85 97 05/24/18 05:20 84 97 05/24/18 05:10 82 96 05/24/18 05:00 85 167/91 H 95 05/24/18 04:50 80 96 05/24/18 04:40 82 95 05/24/18 04:30 81 96 05/24/18 04:25 79 175/89 H 97 05/24/18 04:20 84 95 05/24/18 04:10 83 96 05/24/18 04:07 130 H 179/107 H 05/24/18 04:00 99 H 179/107 H 96 05/24/18 03:50 96 H 96 Intake and Output (Last 8hrs): Intake & Output 05/23/18 05/24/18 05/24/18 22:59 06:59 14:59 Intake Total 1580 1500 Output Total 1400 1000 Balance 180 500 Intake: IV 1250 1500 0.9 1200 Right Internal Jugular 1250 abx 200 keppra 100 Blood Product 320 Red Blood Cells Cpd As1 320 Lr Unit [id number] Other 10 Red Blood Cells Cpd As1 10 Lr Unit [id number] Output: Urine 1400 1000 Urethral (Wan) 1400 1000 Other: # Bowel Movements 1 3 - Physical Exam Head: Positive for: Atraumatic, Normocephalic Pupils: Positive for: PERRL Extroacular Muscles: Positive for: EOMI Conjunctiva: Positive for: Normal Mouth: Positive for: Moist Mucous Membranes Neck: Positive for: Normal Range of Motion Respiratory/Chest: Positive for: Clear to Auscultation, Good Air Exchange. Negative for: Respiratory Distress, Accessory Muscle Use Cardiovascular: Positive for: Regular Rate and Rhythm, Normal S1, S2. Negative for: Murmurs Abdomen: Negative for: Tenderness, Distention, Peritoneal Signs Back: Positive for: Normal Inspection Upper Extremity: Positive for: Normal Inspection. Negative for: Cyanosis, Edema Lower Extremity: Positive for: Normal Inspection, Other (Right foot amputation noted). Negative for: Edema Neurological: Positive for: GCS=15, CN II-XII Intact, Speech Normal, Motor Func Grossly Intact Skin: Positive for: Warm, Dry, Normal Color. Negative for: Rashes Psychiatric: Positive for: Alert, Oriented x 3, Normal Insight, Normal Concentration - Medications Active Medications: Active Medications Generic Name Dose Route Start Last Admin Trade Name Freq PRN Reason Stop Dose Admin Clonidine HCl 1 patch 05/24/18 07:00 05/24/18 07:00 Catapres-Tts2 0.2 Mg/24 Hr TD 1 patch Q7D@0700 PATTI Administration Dicyclomine HCl 10 mg 05/19/18 18:00 05/23/18 14:05 Bentyl PO 10 mg TID PATTI Administration Ergocalciferol 1 cap 05/22/18 07:15 05/22/18 08:19 Drisdol 50,000 Intl Units Cap PO 1 cap Q7D PATTI Administration Gabapentin 300 mg 05/19/18 18:00 05/23/18 09:57 Neurontin PO 300 mg BID PATTI Administration Protocol Piperacillin Sod/Tazobactam Sod 100 mls @ 25 mls/hr 05/20/18 07:00 05/24/18 05:24 Zosyn 3.375 In Ns 100ml IVPB 05/27/18 07:01 25 mls/hr Q8 PATTI Administration Protocol Midazolam 100 mg/100ml in NS 100 mg in 100 mls @ 7 mls/hr 05/20/18 08:31 05/22/18 16:05 Midazolam 100 Mg/100ml In Ns IV 7 mg/hr .[id number] PRN 7 mls/hr Seizure activity Administration Protocol 7 MG/HR Sodium Chloride 1,000 mls @ 100 mls/hr 05/20/18 10:45 05/24/18 01:58 Sodium Chloride 0.9% IV 100 mls/hr .Q10H PATTI Administration Propofol 1,000 mg in 100 mls @ 1.796 mls/hr 05/20/18 10:44 05/22/18 09:11 Diprivan IV 5 mcg/kg/min .Q24H PRN 1.796 mls/hr TITRATE PER MD ORDER Administration Protocol 5 MCG/KG/MIN NOREPINEPHRINE BIT/0.9 % NACL 4 mg in 250 mls @ 15 mls/hr 05/21/18 12:53 Levophed 4 Mg/ 250 Ml Ns Premixed IV .[id number] PRN TITRATE PER MD ORDER Protocol 4 MCG/MIN Levetiracetam 750 mg/ Sodium 107.5 mls @ 322.5 mls/hr 05/22/18 18:00 05/24/18 05:46 Chloride IV 322.5 mls/hr Q12H PATTI Administration Insulin Human Lispro 0 units 05/20/18 07:30 05/23/18 21:59 Humalog Low SC Not Given ACHS PATTI Protocol Levalbuterol HCl 1.25 mg 05/20/18 08:00 05/24/18 07:43 Xopenex IH 1.25 mg [id number] PATTI Administration Metoclopramide HCl 5 mg 05/19/18 22:00 05/23/18 21:05 Reglan PO 5 mg HS PATTI Administration Ondansetron HCl 4 mg 05/19/18 22:00 05/24/18 05:24 Zofran Tab PO 4 mg Q8 PATTI Administration Pantoprazole Sodium 40 mg 05/21/18 10:00 05/23/18 09:57 Protonix Inj IVP 40 mg DAILY PATTI Administration Venlafaxine HCl 75 mg 05/20/18 10:00 05/23/18 10:03 Effexor Xr PO Not Given DAILY PATTI - Patient Studies Lab Studies: Microbiology Studies 05/21/18 13:00 Urine Culture - Final Urine,Wan Yeast Species 05/21/18 07:00 Urine Culture - Final Urine,Wan Yeast Species 05/20/18 07:40 Blood Culture - Preliminary Blood-Venous NO GROWTH AFTER 3 DAYS 05/20/18 07:10 Blood Culture - Preliminary Blood-Venous NO GROWTH AFTER 3 DAYS Lab Studies 05/24/18 05/23/18 05/23/18 Range/Units 05:00 21:31 16:18 pCO2 30 L (35-45) mm/Hg pO2 87.0 (80-100) mm/Hg HCO3 16.6 L (21-28) mmol/L ABG pH 7.35 (7.35-7.45) ABG Total CO2 17.5 L (22-28) mmol.L ABG O2 Saturation 96.1 (95-98) % ABG O2 Content 21.4 (15-23) ML/dl ABG Base Excess -7.5 L (-2.0-3.0) mmol/L ABG Hemoglobin 16.0 (11.7-17.4) g/dL ABG Carboxyhemoglobin 0.6 (0.5-1.5) % POC ABG HHb (Measured) 3.9 (0-5) % ABG Methemoglobin 0.4 (0.0-3.0) % ABG O2 Capacity 22.3 (16-24) mL/dl Hgb O2 Saturation 95.1 (95.0-98.0) % FiO2 40.0 % POC Glucose (mg/dL) 142 H 148 H (65-110) mg/dL Magnesium (1.7-2.2) mg/dL Iron (45-180) ug/dL TIBC (265-497) ug/dL % Saturation (20-55) % Ferritin ng/mL Vitamin B12 (239-931) pg/mL Folate ng/mL Blood Type Antibody Screen Crossmatch BBK History Checked 05/23/18 05/23/18 05/23/18 Range/Units 12:08 09:42 09:42 pCO2 (35-45) mm/Hg pO2 (80-100) mm/Hg HCO3 (21-28) mmol/L ABG pH (7.35-7.45) ABG Total CO2 (22-28) mmol.L ABG O2 Saturation (95-98) % ABG O2 Content (15-23) ML/dl ABG Base Excess (-2.0-3.0) mmol/L ABG Hemoglobin (11.7-17.4) g/dL ABG Carboxyhemoglobin (0.5-1.5) % POC ABG HHb (Measured) (0-5) % ABG Methemoglobin (0.0-3.0) % ABG O2 Capacity (16-24) mL/dl Hgb O2 Saturation (95.0-98.0) % FiO2 % POC Glucose (mg/dL) 155 H (65-110) mg/dL Magnesium (1.7-2.2) mg/dL Iron (45-180) ug/dL TIBC (265-497) ug/dL % Saturation (20-55) % Ferritin 69.7 ng/mL Vitamin B12 940 H (239-931) pg/mL Folate 11.2 ng/mL Blood Type B POSITIVE Antibody Screen Negative Crossmatch See Detail BBK History Checked Patient has bt 05/23/18 05/23/18 05/23/18 Range/Units 09:42 08:11 08:01 pCO2 (35-45) mm/Hg pO2 (80-100) mm/Hg HCO3 (21-28) mmol/L ABG pH (7.35-7.45) ABG Total CO2 (22-28) mmol.L ABG O2 Saturation (95-98) % ABG O2 Content (15-23) ML/dl ABG Base Excess (-2.0-3.0) mmol/L ABG Hemoglobin (11.7-17.4) g/dL ABG Carboxyhemoglobin (0.5-1.5) % POC ABG HHb (Measured) (0-5) % ABG Methemoglobin (0.0-3.0) % ABG O2 Capacity (16-24) mL/dl Hgb O2 Saturation (95.0-98.0) % FiO2 % POC Glucose (mg/dL) 206 H (65-110) mg/dL Magnesium 2.3 H (1.7-2.2) mg/dL Iron 15 L (45-180) ug/dL TIBC 224 L (265-497) ug/dL % Saturation 7 L (20-55) % Ferritin ng/mL Vitamin B12 (239-931) pg/mL Folate ng/mL Blood Type Antibody Screen Crossmatch BBK History Checked Laboratory Results - last 24 hr 05/23/18 05/23/18 05/23/18 08:01 08:11 09:42 pCO2 pO2 HCO3 ABG pH ABG Total CO2 ABG O2 Saturation ABG O2 Content ABG Base Excess ABG Hemoglobin ABG Carboxyhemoglobin POC ABG HHb (Measured) ABG Methemoglobin ABG O2 Capacity Hgb O2 Saturation FiO2 POC Glucose (mg/dL) 206 H Magnesium 2.3 H Iron 15 L TIBC 224 L % Saturation 7 L Ferritin Vitamin B12 Folate Blood Type Antibody Screen Crossmatch BBK History Checked 05/23/18 05/23/18 05/23/18 09:42 09:42 12:08 pCO2 pO2 HCO3 ABG pH ABG Total CO2 ABG O2 Saturation ABG O2 Content ABG Base Excess ABG Hemoglobin ABG Carboxyhemoglobin POC ABG HHb (Measured) ABG Methemoglobin ABG O2 Capacity Hgb O2 Saturation FiO2 POC Glucose (mg/dL) 155 H Magnesium Iron TIBC % Saturation Ferritin 69.7 Vitamin B12 940 H Folate 11.2 Blood Type B POSITIVE Antibody Screen Negative Crossmatch See Detail BBK History Checked Patient has bt 05/23/18 05/23/18 05/24/18 16:18 21:31 05:00 pCO2 30 L pO2 87.0 HCO3 16.6 L ABG pH 7.35 ABG Total CO2 17.5 L ABG O2 Saturation 96.1 ABG O2 Content 21.4 ABG Base Excess -7.5 L ABG Hemoglobin 16.0 ABG Carboxyhemoglobin 0.6 POC ABG HHb (Measured) 3.9 ABG Methemoglobin 0.4 ABG O2 Capacity 22.3 Hgb O2 Saturation 95.1 FiO2 40.0 POC Glucose (mg/dL) 148 H 142 H Magnesium Iron TIBC % Saturation Ferritin Vitamin B12 Folate Blood Type Antibody Screen Crossmatch BBK History Checked Radiology Impressions: Radiology Impressions Chest X-Ray 05/23/18 06:00 IMPRESSION: The endotracheal tube remains high in position 12 cm above the madisyn and 3 cm above the clavicles. There is minimal perihilar congestion. Chest X-Ray 05/23/18 12:38 IMPRESSION: As above Fingerstick Blood Sugar Results: 142 Critical Care Progress Note - Nutrition Nutrition: Nutrition Category Date Time Status NPO Diet [DIET] Diets 05/19/18 Dinner Ordered <Anil Monet - Last Filed: 05/24/18 12:04> CCU Objective - Vital Signs / Intake & Output Intake and Output (Last 8hrs): Intake & Output 05/23/18 05/24/18 05/24/18 22:59 06:59 14:59 Intake Total 1580 1500 Output Total 1400 1000 Balance 180 500 Intake: IV 1250 1500 0.9 1200 Right Internal Jugular 1250 abx 200 keppra 100 Blood Product 320 Red Blood Cells Cpd As1 320 Lr Unit [id number] Other 10 Red Blood Cells Cpd As1 10 Lr Unit [id number] Output: Urine 1400 1000 Urethral (Wan) 1400 1000 Other: # Bowel Movements 1 3 - Medications Active Medications: Active Medications Generic Name Dose Route Start Last Admin Trade Name Freq PRN Reason Stop Dose Admin Amlodipine Besylate 10 mg 05/24/18 11:13 Norvasc PO DAILY PATTI Clonidine HCl 1 patch 05/24/18 11:15 Catapres-Tts2 0.2 Mg/24 Hr TD Q7D@0700 PATTI Dicyclomine HCl 10 mg 05/19/18 18:00 05/23/18 14:05 Bentyl PO 10 mg TID PATTI Administration Ergocalciferol 1 cap 05/22/18 07:15 05/22/18 08:19 Drisdol 50,000 Intl Units Cap PO 1 cap Q7D PATTI Administration Gabapentin 300 mg 05/19/18 18:00 05/23/18 09:57 Neurontin PO 300 mg BID PATTI Administration Protocol Piperacillin Sod/Tazobactam Sod 100 mls @ 25 mls/hr 05/20/18 07:00 05/24/18 05:24 Zosyn 3.375 In Ns 100ml IVPB 05/27/18 07:01 25 mls/hr Q8 PATTI Administration Protocol Midazolam 100 mg/100ml in NS 100 mg in 100 mls @ 7 mls/hr 05/20/18 08:31 05/22/18 16:05 Midazolam 100 Mg/100ml In Ns IV 7 mg/hr .[id number] PRN 7 mls/hr Seizure activity Administration Protocol 7 MG/HR Sodium Chloride 1,000 mls @ 100 mls/hr 05/20/18 10:45 05/24/18 01:58 Sodium Chloride 0.9% IV 100 mls/hr .Q10H PATTI Administration Propofol 1,000 mg in 100 mls @ 1.796 mls/hr 05/20/18 10:44 05/22/18 09:11 Diprivan IV 5 mcg/kg/min .Q24H PRN 1.796 mls/hr TITRATE PER MD ORDER Administration Protocol 5 MCG/KG/MIN NOREPINEPHRINE BIT/0.9 % NACL 4 mg in 250 mls @ 15 mls/hr 05/21/18 12:53 Levophed 4 Mg/ 250 Ml Ns Premixed IV .[id number] PRN TITRATE PER MD ORDER Protocol 4 MCG/MIN Levetiracetam 750 mg/ Sodium 107.5 mls @ 322.5 mls/hr 05/22/18 18:00 05/24/18 05:46 Chloride IV 322.5 mls/hr Q12H PATTI Administration Insulin Human Lispro 0 units 05/20/18 07:30 05/24/18 08:23 Humalog Low SC Not Given ACHS PATTI Protocol Levalbuterol HCl 1.25 mg 05/20/18 08:00 05/24/18 07:43 Xopenex IH 1.25 mg [id number] PATTI Administration Losartan Potassium 100 mg 05/24/18 18:00 Cozaar PO QPM PATTI Metoclopramide HCl 5 mg 05/19/18 22:00 05/23/18 21:05 Reglan PO 5 mg HS PATTI Administration Ondansetron HCl 4 mg 05/19/18 22:00 05/24/18 05:24 Zofran Tab PO 4 mg Q8 PATTI Administration Pantoprazole Sodium 40 mg 05/21/18 10:00 05/23/18 09:57 Protonix Inj IVP 40 mg DAILY PATTI Administration Venlafaxine HCl 75 mg 05/20/18 10:00 05/23/18 10:03 Effexor Xr PO Not Given DAILY PATTI - Patient Studies Lab Studies: Microbiology Studies 05/20/18 07:10 Blood Culture - Preliminary Blood-Venous NO GROWTH AFTER 4 DAYS 05/20/18 07:40 Blood Culture - Preliminary Blood-Venous NO GROWTH AFTER 4 DAYS 05/21/18 13:00 Urine Culture - Final Urine,Wan Yeast Species 05/21/18 07:00 Urine Culture - Final Urine,Wan Yeast Species Lab Studies 05/24/18 05/24/18 05/24/18 Range/Units 08:35 08:35 05:00 WBC 6.2 D (4.5-11.0) 10^3/uL RBC 3.70 (3.5-6.1) 10^6/uL Hgb 9.4 L D (12.0-16.0) g/dL Hct 29.6 L (36.0-48.0) % MCV 80.0 D (80.0-105.0) fl MCH 25.4 (25.0-35.0) pg MCHC 31.8 (31.0-37.0) g/dl RDW 15.8 H (11.5-14.5) % Plt Count 238 (120.0-450.0) 10^3/uL MPV 9.8 (7.0-11.0) fl Gran % 80.9 H (50.0-68.0) % Lymph % (Auto) 13.0 L (22.0-35.0) % [place] % (Auto) 5.6 (1.0-6.0) % Eos % (Auto) 0.3 L (1.5-5.0) % Baso % (Auto) 0.2 (0.0-3.0) % Gran # 5.03 (1.4-6.5) Lymph # (Auto) 0.8 L (1.2-3.4) [place] # (Auto) 0.4 (0.1-0.6) Eos # (Auto) 0.0 (0.0-0.7) Baso # (Auto) 0.01 (0.0-2.0) K/mm3 pCO2 30 L (35-45) mm/Hg pO2 87.0 (80-100) mm/Hg HCO3 16.6 L (21-28) mmol/L ABG pH 7.35 (7.35-7.45) ABG Total CO2 17.5 L (22-28) mmol.L ABG O2 Saturation 96.1 (95-98) % ABG O2 Content 21.4 (15-23) ML/dl ABG Base Excess -7.5 L (-2.0-3.0) mmol/L ABG Hemoglobin 16.0 (11.7-17.4) g/dL ABG Carboxyhemoglobin 0.6 (0.5-1.5) % POC ABG HHb (Measured) 3.9 (0-5) % ABG Methemoglobin 0.4 (0.0-3.0) % ABG O2 Capacity 22.3 (16-24) mL/dl Hgb O2 Saturation 95.1 (95.0-98.0) % FiO2 40.0 % Sodium 144 (132-148) mmol/L Potassium 3.7 (3.6-5.0) mmol/L Chloride 117 H (98-107) mmol/L Carbon Dioxide 18 L (21-33) mmol/L Anion Gap 13 (10-20) BUN 26 H (7-21) mg/dL Creatinine 1.3 H (0.7-1.2) mg/dl Est GFR ( Amer) 51 Est GFR (Non-Af Amer) 42 POC Glucose (mg/dL) (65-110) mg/dL Random Glucose 168 H (70-110) mg/dL Calcium 8.1 L (8.4-10.5) mg/dL Phosphorus 4.3 (2.5-4.5) mg/dL Magnesium 2.1 (1.7-2.2) mg/dL Ferritin ng/mL Total Bilirubin 0.4 (0.2-1.3) mg/dL AST 28 (14-36) U/L ALT 35 (7-56) U/L Alkaline Phosphatase 247 H (38-126) U/L Total Protein 5.2 L (5.8-8.3) g/dL Albumin 2.4 L (3.0-4.8) g/dL Globulin 2.8 gm/dL Albumin/Globulin Ratio 0.9 L (1.1-1.8) Vitamin B12 (239-931) pg/mL Folate ng/mL Blood Type Antibody Screen Crossmatch BBK History Checked 05/23/18 05/23/18 05/23/18 Range/Units 21:31 16:18 12:08 WBC (4.5-11.0) 10^3/uL RBC (3.5-6.1) 10^6/uL Hgb (12.0-16.0) g/dL Hct (36.0-48.0) % MCV (80.0-105.0) fl MCH (25.0-35.0) pg MCHC (31.0-37.0) g/dl RDW (11.5-14.5) % Plt Count (120.0-450.0) 10^3/uL MPV (7.0-11.0) fl Gran % (50.0-68.0) % Lymph % (Auto) (22.0-35.0) % [place] % (Auto) (1.0-6.0) % Eos % (Auto) (1.5-5.0) % Baso % (Auto) (0.0-3.0) % Gran # (1.4-6.5) Lymph # (Auto) (1.2-3.4) [place] # (Auto) (0.1-0.6) Eos # (Auto) (0.0-0.7) Baso # (Auto) (0.0-2.0) K/mm3 pCO2 (35-45) mm/Hg pO2 (80-100) mm/Hg HCO3 (21-28) mmol/L ABG pH (7.35-7.45) ABG Total CO2 (22-28) mmol.L ABG O2 Saturation (95-98) % ABG O2 Content (15-23) ML/dl ABG Base Excess (-2.0-3.0) mmol/L ABG Hemoglobin (11.7-17.4) g/dL ABG Carboxyhemoglobin (0.5-1.5) % POC ABG HHb (Measured) (0-5) % ABG Methemoglobin (0.0-3.0) % ABG O2 Capacity (16-24) mL/dl Hgb O2 Saturation (95.0-98.0) % FiO2 % Sodium (132-148) mmol/L Potassium (3.6-5.0) mmol/L Chloride (98-107) mmol/L Carbon Dioxide (21-33) mmol/L Anion Gap (10-20) BUN (7-21) mg/dL Creatinine (0.7-1.2) mg/dl Est GFR ( Amer) Est GFR (Non-Af Amer) POC Glucose (mg/dL) 142 H 148 H 155 H (65-110) mg/dL Random Glucose (70-110) mg/dL Calcium (8.4-10.5) mg/dL Phosphorus (2.5-4.5) mg/dL Magnesium (1.7-2.2) mg/dL Ferritin ng/mL Total Bilirubin (0.2-1.3) mg/dL AST (14-36) U/L ALT (7-56) U/L Alkaline Phosphatase (38-126) U/L Total Protein (5.8-8.3) g/dL Albumin (3.0-4.8) g/dL Globulin gm/dL Albumin/Globulin Ratio (1.1-1.8) Vitamin B12 (239-931) pg/mL Folate ng/mL Blood Type Antibody Screen Crossmatch BBK History Checked 05/23/18 05/23/18 Range/Units 09:42 09:42 WBC (4.5-11.0) 10^3/uL RBC (3.5-6.1) 10^6/uL Hgb (12.0-16.0) g/dL Hct (36.0-48.0) % MCV (80.0-105.0) fl MCH (25.0-35.0) pg MCHC (31.0-37.0) g/dl RDW (11.5-14.5) % Plt Count (120.0-450.0) 10^3/uL MPV (7.0-11.0) fl Gran % (50.0-68.0) % Lymph % (Auto) (22.0-35.0) % [place] % (Auto) (1.0-6.0) % Eos % (Auto) (1.5-5.0) % Baso % (Auto) (0.0-3.0) % Gran # (1.4-6.5) Lymph # (Auto) (1.2-3.4) [place] # (Auto) (0.1-0.6) Eos # (Auto) (0.0-0.7) Baso # (Auto) (0.0-2.0) K/mm3 pCO2 (35-45) mm/Hg pO2 (80-100) mm/Hg HCO3 (21-28) mmol/L ABG pH (7.35-7.45) ABG Total CO2 (22-28) mmol.L ABG O2 Saturation (95-98) % ABG O2 Content (15-23) ML/dl ABG Base Excess (-2.0-3.0) mmol/L ABG Hemoglobin (11.7-17.4) g/dL ABG Carboxyhemoglobin (0.5-1.5) % POC ABG HHb (Measured) (0-5) % ABG Methemoglobin (0.0-3.0) % ABG O2 Capacity (16-24) mL/dl Hgb O2 Saturation (95.0-98.0) % FiO2 % Sodium (132-148) mmol/L Potassium (3.6-5.0) mmol/L Chloride (98-107) mmol/L Carbon Dioxide (21-33) mmol/L Anion Gap (10-20) BUN (7-21) mg/dL Creatinine (0.7-1.2) mg/dl Est GFR ( Amer) Est GFR (Non-Af Amer) POC Glucose (mg/dL) (65-110) mg/dL Random Glucose (70-110) mg/dL Calcium (8.4-10.5) mg/dL Phosphorus (2.5-4.5) mg/dL Magnesium (1.7-2.2) mg/dL Ferritin 69.7 ng/mL Total Bilirubin (0.2-1.3) mg/dL AST (14-36) U/L ALT (7-56) U/L Alkaline Phosphatase (38-126) U/L Total Protein (5.8-8.3) g/dL Albumin (3.0-4.8) g/dL Globulin gm/dL Albumin/Globulin Ratio (1.1-1.8) Vitamin B12 940 H (239-931) pg/mL Folate 11.2 ng/mL Blood Type B POSITIVE Antibody Screen Negative Crossmatch See Detail BBK History Checked Patient has bt Laboratory Results - last 24 hr 05/23/18 05/23/18 05/23/18 09:42 09:42 12:08 WBC RBC Hgb Hct MCV MCH MCHC RDW Plt Count MPV Gran % Lymph % (Auto) [place] % (Auto) Eos % (Auto) Baso % (Auto) Gran # Lymph # (Auto) [place] # (Auto) Eos # (Auto) Baso # (Auto) pCO2 pO2 HCO3 ABG pH ABG Total CO2 ABG O2 Saturation ABG O2 Content ABG Base Excess ABG Hemoglobin ABG Carboxyhemoglobin POC ABG HHb (Measured) ABG Methemoglobin ABG O2 Capacity Hgb O2 Saturation FiO2 Sodium Potassium Chloride Carbon Dioxide Anion Gap BUN Creatinine Est GFR ( Amer) Est GFR (Non-Af Amer) POC Glucose (mg/dL) 155 H Random Glucose Calcium Phosphorus Magnesium Ferritin 69.7 Total Bilirubin AST ALT Alkaline Phosphatase Total Protein Albumin Globulin Albumin/Globulin Ratio Vitamin B12 940 H Folate 11.2 Blood Type B POSITIVE Antibody Screen Negative Crossmatch See Detail BBK History Checked Patient has bt 12/05/23/18 05/24/18 16:18 21:31 05:00 WBC RBC Hgb Hct MCV MCH MCHC RDW Plt Count MPV Gran % Lymph % (Auto) [place] % (Auto) Eos % (Auto) Baso % (Auto) Gran # Lymph # (Auto) [place] # (Auto) Eos # (Auto) Baso # (Auto) pCO2 30 L pO2 87.0 HCO3 16.6 L ABG pH 7.35 ABG Total CO2 17.5 L ABG O2 Saturation 96.1 ABG O2 Content 21.4 ABG Base Excess -7.5 L ABG Hemoglobin 16.0 ABG Carboxyhemoglobin 0.6 POC ABG HHb (Measured) 3.9 ABG Methemoglobin 0.4 ABG O2 Capacity 22.3 Hgb O2 Saturation 95.1 FiO2 40.0 Sodium Potassium Chloride Carbon Dioxide Anion Gap BUN Creatinine Est GFR ( Amer) Est GFR (Non-Af Amer) POC Glucose (mg/dL) 148 H 142 H Random Glucose Calcium Phosphorus Magnesium Ferritin Total Bilirubin AST ALT Alkaline Phosphatase Total Protein Albumin Globulin Albumin/Globulin Ratio Vitamin B12 Folate Blood Type Antibody Screen Crossmatch BBK History Checked 05/24/18 05/24/18 08:35 08:35 WBC 6.2 D RBC 3.70 Hgb 9.4 L D Hct 29.6 L MCV 80.0 D MCH 25.4 MCHC 31.8 RDW 15.8 H Plt Count 238 MPV 9.8 Gran % 80.9 H Lymph % (Auto) 13.0 L [place] % (Auto) 5.6 Eos % (Auto) 0.3 L Baso % (Auto) 0.2 Gran # 5.03 Lymph # (Auto) 0.8 L [place] # (Auto) 0.4 Eos # (Auto) 0.0 Baso # (Auto) 0.01 pCO2 pO2 HCO3 ABG pH ABG Total CO2 ABG O2 Saturation ABG O2 Content ABG Base Excess ABG Hemoglobin ABG Carboxyhemoglobin POC ABG HHb (Measured) ABG Methemoglobin ABG O2 Capacity Hgb O2 Saturation FiO2 Sodium 144 Potassium 3.7 Chloride 117 H Carbon Dioxide 18 L Anion Gap 13 BUN 26 H Creatinine 1.3 H Est GFR ( Amer) 51 Est GFR (Non-Af Amer) 42 POC Glucose (mg/dL) Random Glucose 168 H Calcium 8.1 L Phosphorus 4.3 Magnesium 2.1 Ferritin Total Bilirubin 0.4 AST 28 ALT 35 Alkaline Phosphatase 247 H Total Protein 5.2 L Albumin 2.4 L Globulin 2.8 Albumin/Globulin Ratio 0.9 L Vitamin B12 Folate Blood Type Antibody Screen Crossmatch BBK History Checked Radiology Impressions: Radiology Impressions Chest X-Ray 05/23/18 12:38 IMPRESSION: As above Chest X-Ray 05/24/18 06:00 IMPRESSION: Increasing infiltrate/greater degree of confluence findings in the right lower lobe. Stable position support apparatus. Critical Care Progress Note - Nutrition Nutrition: Nutrition Category Date Time Status NPO Diet [DIET] Diets 05/19/18 Dinner Ordered Assessment/Plan - Assessment and Plan (Free Text) Assessment: Patient seen and examined on rounds with resident, agree with note with following additions/exceptions: Patient is 57 year old female with PMHx of HTN, uncontrolled DM2 complicated by retinopathy/gastroparesis, MDD, LAUREN, and TIA/CVA who was admitted for evaluation and treatment of seizure like activity. Patient aspirated and was intubated due to an inability to protect her airway. Currently afebrile, BP stable in NAD Repeat CT head done, no intracranial abnormality MRI brain done, results noted CXR with RML/RLL PNA, on abx, ID following Patients mental status has started to improve, opens eyes to name, does not fully follow commands; neurology following HH stable s/p PRBC transfusion yesterday Seizure disorder Aspiration PNA Fever DM Hx TIA/CVA Renal failure Hypokalemia rule out PRES syndrome, watershed infarcts Recommend: - cont with low tidal ventilation, duonebs PRN, daily sedation vacation - Broad spectrum Abx as per ID - start feeds - DC IVF - Start on home BP meds - follow up renal - follow up neuro - FS control - GI ppx - DVT ppx, HSQ - Monitor in MICU Poor prognosis Critical care time 30 mintes
[2018-05-24] MEDS: Insulin Lispro (humaLOG) LOW Coverage SC SCH ×4 (08:23→22:16)
--- NOTE | 2018-05-24 08:29 | PN ---
DATE: 05/24/2018(640am-730am) SUBJECTIVE: The patient remains in the ICU and on the ventilator. She does open her eyes at times. She does not respond to questions. PHYSICAL EXAMINATION: VITAL SIGNS: Temperature 97.7, pulse 92, respiratory rate 26/12, blood pressure 178/101. HEENT: Normocephalic, atraumatic. No JVD. CARDIOVASCULAR: Positive S1, S2. No S3 gallop. LUNGS: Decreased breath sounds at the bases. Minimal/less rhonchi. No wheezing. 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 There is no edema in her legs. GASTROINTESTINAL: Abdomen is soft, nontender and nondistended. Bowel sounds are positive. SKIN: No acute rash. NEUROLOGIC: Exam limited at the present time. PERTINENT LABORATORY DATA: Chest x-ray was done this morning and reviewed. There is an increase in the right lower lobe infiltrate - compared to yesterday's film. Arterial blood gas was done on PRVC 12, tidal volume 400, FIO2 40%. Results are: PH 7.35, pCO2 of 30, pO2 of 87. IMPRESSION: 1. Seizure disorder. 2. Respiratory insufficiency. 3. Right lung pneumonia - rule out aspiration. 4. Encephalopathy. Rule out cerebrovascular accident. 5. Chronic obstructive pulmonary disease. 6. Diabetes mellitus. PLAN: The patient remains on the ventilator and in the ICU. She does open her eyes at times. She does not respond to questions. I did discuss the case with the night nurse at length. The night nurse confirms that the patient has woken up somewhat - compared to previous days. I did review the chest x-ray as above. There is an increase in the right lower lobe infiltrate - compared to yesterday. I have also reviewed the arterial blood gas. The arterial blood gas is improved-- with normalization of the pH and a decrease in the alveolar-arterial gradient. I will continue the current ventilator settings for now. The patient remains on antibiotic therapy - as per Infectious Disease. Temperatures have resolved. There is no leukocytosis. Inputs by Renal, Cardiology, and Infectious Disease are also noted. Clinical status of the patient is certainly improved - compared to the initial presentation. However, the patient remains critically ill with overall poor prognosis. I will discuss the above with the entire ICU team in the next few moments. I will also discuss the above with the attending physician later this morning. Cesar Enriquez MD [facility]
[2018-05-24 08:45] LABS: BASO # 0.01 K/mm3 (0.0-2.0); BASO % 0.2 % (0.0-3.0); EOS % 0.3 % (1.5-5.0); GRAN # 5.03 (1.4-6.5); GRAN % 80.9 % (50.0-68.0); HEMOGLOBIN 9.4 g/dL (12.0-16.0); LYMPH # 0.8 (1.2-3.4); MEAN CORPUSCULAR HEMOGLOBIN 25.4 pg (25.0-35.0); MEAN CORPUSCULAR HGB CONC 31.8 g/dl (31.0-37.0); MEAN PLATELET VOLUME 9.8 fl (7.0-11.0); MONO # 0.4 (0.1-0.6); MONO % 5.6 % (1.0-6.0); RBC 3.7 10^6/uL (3.5-6.1); RED CELL DISTRIBUTION WIDTH 15.8 % (11.5-14.5); WHITE BLOOD COUNT 6.2 10^3/uL (4.5-11.0)
[2018-05-24 09:01] LABS: ALB/GLOB RATIO 0.9 (1.1-1.8); ALBUMIN 2.4 g/dL (3.0-4.8); CALCIUM 8.1 mg/dL (8.4-10.5)
--- NOTE | 2018-05-24 10:01 | RAD ---
Date of service: 05/24/2018 HISTORY: Follow-up COMPARISON: Multiple serial examinations preceding the most recent study: May 23, 2018. FINDINGS: LUNGS: Greater degree of confluence of infiltrates right lower lobe compared to prior studies. PLEURA: No significant pleural effusion identified, no pneumothorax apparent. CARDIOVASCULAR: No atherosclerotic calcification present OSSEOUS STRUCTURES: No significant abnormalities. VISUALIZED UPPER ABDOMEN: Normal. OTHER FINDINGS: Stable, satisfactory position ventilatory, vascular and nasogastric apparatus. IMPRESSION: Increasing infiltrate/greater degree of confluence findings in the right lower lobe. Stable position support apparatus.
--- NOTE | 2018-05-24 13:09 | PN ---
DATE: 05/24/2018 SUBJECTIVE: The patient is seen earlier today in 128, bed 1. The patient remains intubated on a ventilator, unresponsive. Overall in poor condition. PHYSICAL EXAMINATION: VITAL SIGNS: Temperature of 97, blood pressure is 178/100, respiratory rate of 18. HEENT: Unremarkable. NECK: Supple. LUNGS: Have decreased breath sounds. HEART: Normal S1, S2. ABDOMEN: Soft, nontender. LABORATORY EXAMINATION: Reveals a white count of 6.2, hemoglobin of 9, platelets of 238. Chemistries reviewed. BUN of 26, creatinine of 1.3. Urinalysis is noted. Microbiology reveals yeast in the urine and blood cultures are negative. Review of orders. The patient is on Zosyn. Th patient had a chest x-ray this morning. Dr. Enriquez's note is reviewed. ASSESSMENT AND PLAN: This is a 57-year-old female with severe sepsis, respiratory failure intubated on a ventilator, healthcare-associated pneumonia, esophageal ulcers, hypertension, diabetes. The patient has acute infarct with today is day #5 of Zosyn and with a chest x-ray from this morning, 05/24/2018 with greater degree of infiltrates on the right lower lobe. Of note, that the patient's methicillin-resistant Staphylococcus aureus screen is negative and Dr. Monet's note is reviewed. Marc Sales MD
--- NOTE | 2018-05-24 13:09 | PN ---
DATE: 05/24/2018 LOCATION: ICU 128, room 1. SUBJECTIVE: This is a 57-year-old female with recent acute onset of a grand mal seizure at home with supervening acute respiratory failure and currently endotracheally intubated at this time. She is also undergoing IV antibiotic management for right lower lobe pneumonia as noted. Her glycemic levels are fluctuating but much improved as noted overnight and the glucose values have ranged from 142 to 148 and 155 mg/dL. Her chemistry showed a BUN of 26, sodium 144, potassium 3.7, chloride 117, CO2 is 18, glucose is 168 and creatinine is 1.3. RECOMMENDATION: So, at this time, we will continue the low-dose correction scale using Humalog insulin as given. The basal insulin has been discontinued for now as noted. She is also being followed closely for neurological and hemodynamic monitoring in the ICU as noted. We will obtain serial chemistries and supplement accordingly as needed. We will also recommend nutritional support as the patient is hypermetabolic at this time and needs either parenteral peripheral nutrition and/or enteral feedings as indicated. We will follow. Tita Coe MD
--- NOTE | 2018-05-24 13:38 | CP.PCM.PN ---
Subjective - Date & Time of Evaluation Date of Evaluation: 05/24/18 Time of Evaluation: 13:36 - Subjective Subjective: Nephrology Consultation Note: Assessment: critical Acute Kidney Injury (N17.9) likely hemodynamic injury due to BP fluctuations, sepsis with shock urine retention likely neurogenic bladder ? seizure with abnormal EEG/MRI--PRESS, aspiration pneumonia hyperglycemia with uncontrolled DM Anemia , hypokalemia hypomagnesemia hyponatremia Diabetic chronic Kidney Disease (E11.22) Hypertensive Chronic Kidney Disease (I12.9) Chronic Kidney Disease (N18.1) Stage with ? mg proteinuria (R80.9) likely due to DM Type 1 diabetes Mellitus (>20 years) complicated by neuropathy, retinopathy and gastroparesis neurogenic bladder hx of TIA, GERD, kidney stones, hx of hemicolectomy severe pulmonary HTN Plan No acute need for renal replacement therapy at this time. Patient not on ACEI/ARB due to ANTONIO and low BP but resume from today. other BP m eds added by team already. supplement lytes as needed. Monitor Input/Output, daily weights and renal function with basic metabolic panel supplement lytes started weekly vit D Neuro, ID following PRBC as needed for anemia. add iron and MVI once stable to take orally Check urine spot protein/creatinine and albumin/creatinine ratio Check for 25-OH vitamin D, iPTH, phosphorus level Anemia work up with TSAT/Ferritin and b12/folate level Dose meds/antibiotics for reduced GFR. Avoid fleets enema/magnesium based laxatives. Avoid nephrotoxins/NSAIDs/ iodinated contrast (unless needed emergently) Glycemic control Further work up/management as per primary team Thanks for allowing me to participate in care of your patient. Will follow patient with you. Please call if any Qs. had d/w team Dr Onesimo Guerra Office: [phone] Chief Complaint; seizure reason for consult: ANTONIO HPI: Pt is a 57 F with hx of Type 1 diabetes Mellitus (>20 years) complicated by neuropathy, retinopathy, gastroparesis, neurogenic bladder hypertension (years), TIA, GERD, kidney stones, hx of hemicolectomy presented with complaints of seizures and aspiration pneumonia. renal consult for ANTONIO evaluation and management. Denies OTC/herbal meds or NSAIDs Noted recent iodinated contrast exposure on 05/16/18. Noted obvious episodes of low BP (SBP 90s), high BP (SBP 200+) ROS: unable to obtain. off pressors. BP ahigh now Physical Examination: General Appearance: comfortable, in no acute respiratory distress, intubated Vitals reviewed and noted as below Head; Atraumatic, normocephalic ENT: orally intubated Neck; supple no lymphadenopathy, no thyromegaly or bruit Lungs: Normal respiratory rate/effort. Breath sounds bilateral equal and rt basal crackle Heart: Normal rate. s1s2 normal. No rub or gallop. Extremities: no edema. No varicose veins Neurological: Patient is waking up Skin: Warm and dry. Normal turgor. No rash. Palpitation: Normal elasticity for age Abdomen: Abdomen is soft. Bowel sounds +. There is no abdominal tenderness, no guarding/rigidity no organomegaly Psych: deferred MSK: no joint tenderness or swelling. Digits and nails normal, no deformity : kidney not palpable has gay Labs/imaging reviewed. Past medical history, past surgical history, family history, social history, allergy reviewed and noted as below Family hx: no hx of CKD. Rest non-contributory work up: UA 3+ protein with moderate blood a1c 10.2% CT abdomen: normal adrenal. hx of b/l nephrolithiasis. distended urinary bladder Objective - Vital Signs/Intake and Output Vital Signs (last 24 hours): Temp Pulse Resp BP Pulse Ox 97.7 F 84 23 178/101 H 97 05/23/18 16:40 05/24/18 07:30 05/24/18 07:45 05/24/18 07:00 05/24/18 07:45 Intake and Output: 05/24/18 05/24/18 06:59 18:59 Intake Total 1500 Output Total 1000 Balance 500 - Medications Medications: Current Medications Amlodipine Besylate (Norvasc) 10 mg PO DAILY [facility] Clonidine HCl (Catapres-Tts2 0.2 Mg/24 Hr) 1 patch TD Q7D@0700 [facility] Dicyclomine HCl (Bentyl) 10 mg PO TID [facility] Last Admin: 05/23/18 14:05 Dose: 10 mg Ergocalciferol (Drisdol 50,000 Intl Units Cap) 1 cap PO Q7D PATTI Last Admin: 05/22/18 08:19 Dose: 1 cap Gabapentin (Neurontin) 300 mg PO BID [facility]; Protocol Last Admin: 05/24/18 13:33 Dose: 300 mg Piperacillin Sod/Tazobactam Sod (Zosyn 3.375 In Ns 100ml) 100 mls @ 25 mls/hr IVPB Q8 PATTI; Protocol Stop: 05/27/18 07:01 Last Admin: 05/24/18 13:31 Dose: 25 mls/hr Midazolam 100 mg/100ml in NS (Midazolam 100 Mg/100ml In Ns) 100 mg in 100 mls @ 7 mls/hr IV .[id number] PRN; Protocol PRN Reason: Seizure activity Last Admin: 05/22/18 16:05 Dose: 7 mg/hr, 7 mls/hr Sodium Chloride (Sodium Chloride 0.9%) 1,000 mls @ 100 mls/hr IV .Q10H PATTI Last Admin: 05/24/18 01:58 Dose: 100 mls/hr Propofol (Diprivan) 1,000 mg in 100 mls @ 1.796 mls/hr IV .Q24H PRN; Protocol PRN Reason: TITRATE PER MD ORDER Last Admin: 05/22/18 09:11 Dose: 5 mcg/kg/min, 1.796 mls/hr NOREPINEPHRINE BIT/0.9 % NACL (Levophed 4 Mg/ 250 Ml Ns Premixed) 4 mg in 250 mls @ 15 mls/hr IV .[id number] PRN; Protocol PRN Reason: TITRATE PER MD ORDER Levetiracetam 750 mg/ Sodium (Chloride) 107.5 mls @ 322.5 mls/hr IV Q12H PATTI Last Admin: 05/24/18 05:46 Dose: 322.5 mls/hr Insulin Human Lispro (Humalog Low) 0 units SC ACHS PATTI; Protocol Last Admin: 05/24/18 08:23 Dose: Not Given Levalbuterol HCl (Xopenex) 1.25 mg IH [id number] PATTI Last Admin: 05/24/18 07:43 Dose: 1.25 mg Losartan Potassium (Cozaar) 100 mg PO QPM PATTI Metoclopramide HCl (Reglan) 5 mg PO HS PATTI Last Admin: 05/23/18 21:05 Dose: 5 mg Ondansetron HCl (Zofran Tab) 4 mg PO Q8 PATTI Last Admin: 05/24/18 05:24 Dose: 4 mg Pantoprazole Sodium (Protonix Inj) 40 mg IVP DAILY [facility] Last Admin: 05/24/18 13:32 Dose: 40 mg Venlafaxine HCl (Effexor Xr) 75 mg PO DAILY [facility] Last Admin: 05/23/18 10:03 Dose: Not Given - Labs Labs: 05/24/18 08:35 05/24/18 08:35 PT 14.3 SECONDS (9.4-12.5) H 05/21/18 10:15 INR 1.24 05/21/18 10:15 APTT 27.9 Seconds (25.1-36.5) 05/21/18 10:15
[2018-05-24] MEDS: Venlafaxine 75 mg ER Cap PO SCH (13:56)
--- NOTE | 2018-05-24 15:46 | PN ---
DATE: 05/24/2018 SUBJECTIVE: She is in the intensive care unit. She is on the ventilator. Family is present and are talking with her. The patient started to make some reaction. She started to cry and made some changes. I am hoping that she will start to wake up a little bit. PHYSICAL EXAMINATION: VITAL SIGNS: Temperature 97.9; pulse 88; blood pressure 167/91, also 178/101 blood pressure; 36 O2 sat and 29 CO2. HEENT: Head is atraumatic and normocephalic, on the ventilator. HEART: Regular rate. LUNGS: Decreased breath sounds. ABDOMEN: Soft. EXTREMITIES: No edema. MEDICATIONS: She is on Bentyl and Catapres for the blood pressure, Cozaar, Diprivan, Drisdol, Effexor, insulin, Keppra, norepinephrine, midazolam, gabapentin, Norvasc, Protonix, Reglan, IV fluids, Xopenex, Zofran, and Zosyn. LABORATORY DATA: She has a 6.2 white count, 9.4 hemoglobin, 29.6 hematocrit with 238 platelets, it is a little better numbers. She has 144 sodium, 3.7 potassium, BUN 26, creatinine 1.3, GFR is 42, sugar is 168, calcium 8.1, phosphorus 4.3, magnesium 2.1, , total bili is 0.4, AST is 28, ALT is 35 and alk phos 247, total protein is 5.2. ASSESSMENT AND PLAN: She had positive yeast cultures in the urine. She has been seen by multiple doctors, Pulmonary, Renal. 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 We will treat her with aggressive treatment and care. She is in deep trouble. We will do everything we can to help her. I am glad family is at bedside, talking to her. I think that will help also. Josafat Dent DO [facility]
[2018-05-25] MEDS: Levalbuterol 1.25 MG/3 ML Inhal Soln UD IH SCH ×5 (02:15→19:55)
[2018-05-25 05:30] LABS: ARTERIAL BLOOD GAS HCO3 14.6 mmol/L (21-28); ARTERIAL BLOOD GAS HEMOGLOBIN 9.2 g/dL (11.7-17.4); ARTERIAL BLOOD GAS O2 CAPACITY 12.9 mL/dl (16-24); ARTERIAL BLOOD GAS O2 CONTENT 12.4 ML/dl (15-23); ARTERIAL BLOOD GAS O2 SAT 95.9 % (95-98); ARTERIAL BLOOD GAS PCO2 31 mm/Hg (35-45); ARTERIAL BLOOD GAS PH 7.28 (7.35-7.45); ARTERIAL BLOOD GAS TCO2 15.6 mmol.L (22-28)
--- NOTE | 2018-05-25 06:23 | CP.CCUPN ---
CCU Subjective - Physician Review Subjective (Free Text): Jose Isidro, PGY-1 Progress Note for ICU Patient seen and evaluated at bedside. No acute events reported overnight. Patient intubated, on sedation. Further ROS unable to be obtained due to clinical condition. CCU Objective - Vital Signs / Intake & Output Vital Signs (Last 4 hours): Vital Signs Pulse BP Pulse Ox 05/25/18 03:20 77 98 05/25/18 03:10 76 98 05/25/18 03:00 80 163/82 H 99 05/25/18 02:50 78 100 05/25/18 02:40 74 99 05/25/18 02:30 73 99 Intake and Output (Last 8hrs): Intake & Output 05/24/18 05/24/18 05/25/18 14:59 22:59 06:59 Intake Total 1000 Output Total 650 Balance 350 Intake: IV 900 Right Internal Jugular 800 keppra 100 Tube Feeding 100 Output: Gastric Amount 0 Nares 0 Urine 650 Urethral (Wan) 650 Other: # Bowel Movements 3 - Physical Exam Head: Positive for: Atraumatic, Normocephalic Pupils: Positive for: PERRL Extroacular Muscles: Positive for: EOMI Conjunctiva: Positive for: Normal Mouth: Positive for: Moist Mucous Membranes Neck: Positive for: Normal Range of Motion Respiratory/Chest: Positive for: Clear to Auscultation, Good Air Exchange. Negative for: Respiratory Distress, Accessory Muscle Use Cardiovascular: Positive for: Regular Rate and Rhythm, Normal S1, S2. Negative for: Murmurs Abdomen: Negative for: Tenderness, Distention, Peritoneal Signs Back: Positive for: Normal Inspection Upper Extremity: Positive for: Normal Inspection. Negative for: Cyanosis, Edema Lower Extremity: Positive for: Other (Right foot amputation noted). Negative for: Edema Neurological: Positive for: CN II-XII Intact, Speech Normal, Motor Func Grossly Intact Skin: Positive for: Warm, Dry, Normal Color. Negative for: Rashes Psychiatric: Positive for: Alert, Oriented x 3, Normal Insight, Normal Concentration - Medications Active Medications: Active Medications Generic Name Dose Route Start Last Admin Trade Name Freq PRN Reason Stop Dose Admin Amlodipine Besylate 10 mg 05/24/18 11:13 Norvasc PO DAILY PATTI Clonidine HCl 1 patch 05/24/18 11:15 Catapres-Tts2 0.2 Mg/24 Hr TD Q7D@0700 PATTI Dicyclomine HCl 10 mg 05/19/18 18:00 05/24/18 17:13 Bentyl PO 10 mg TID PATTI Administration Ergocalciferol 1 cap 05/22/18 07:15 05/22/18 08:19 Drisdol 50,000 Intl Units Cap PO 1 cap Q7D PATTI Administration Gabapentin 300 mg 05/19/18 18:00 05/24/18 17:13 Neurontin PO 300 mg BID PATTI Administration Protocol Piperacillin Sod/Tazobactam Sod 100 mls @ 25 mls/hr 05/20/18 07:00 05/24/18 21:15 Zosyn 3.375 In Ns 100ml IVPB 05/27/18 07:01 25 mls/hr Q8 PATTI Administration Protocol Midazolam 100 mg/100ml in NS 100 mg in 100 mls @ 7 mls/hr 05/20/18 08:31 05/22/18 16:05 Midazolam 100 Mg/100ml In Ns IV 7 mg/hr .[id number] PRN 7 mls/hr Seizure activity Administration Protocol 7 MG/HR Sodium Chloride 1,000 mls @ 100 mls/hr 05/20/18 10:45 05/24/18 01:58 Sodium Chloride 0.9% IV 100 mls/hr .Q10H PATTI Administration Propofol 1,000 mg in 100 mls @ 1.796 mls/hr 05/20/18 10:44 05/22/18 09:11 Diprivan IV 5 mcg/kg/min .Q24H PRN 1.796 mls/hr TITRATE PER MD ORDER Administration Protocol 5 MCG/KG/MIN NOREPINEPHRINE BIT/0.9 % NACL 4 mg in 250 mls @ 15 mls/hr 05/21/18 12:53 Levophed 4 Mg/ 250 Ml Ns Premixed IV .[id number] PRN TITRATE PER MD ORDER Protocol 4 MCG/MIN Levetiracetam 750 mg/ Sodium 107.5 mls @ 322.5 mls/hr 05/22/18 18:00 05/25/18 05:22 Chloride IV 322.5 mls/hr Q12H PATTI Administration Insulin Human Lispro 0 units 05/20/18 07:30 05/24/18 22:16 Humalog Low SC Not Given ACHS PATTI Protocol Levalbuterol HCl 1.25 mg 05/20/18 08:00 05/25/18 02:51 Xopenex IH 1.25 mg [id number] PATTI Administration Losartan Potassium 100 mg 05/24/18 18:00 05/24/18 17:13 Cozaar PO 100 mg QPM PATTI Administration Metoclopramide HCl 5 mg 05/19/18 22:00 05/24/18 22:01 Reglan PO 5 mg HS PATTI Administration Ondansetron HCl 4 mg 05/19/18 22:00 05/24/18 22:01 Zofran Tab PO 4 mg Q8 PATTI Administration Pantoprazole Sodium 40 mg 05/21/18 10:00 05/24/18 13:32 Protonix Inj IVP 40 mg DAILY PATTI Administration Venlafaxine HCl 75 mg 05/20/18 10:00 05/24/18 13:56 Effexor Xr PO Not Given DAILY PATTI - Patient Studies Lab Studies: Microbiology Studies 05/20/18 07:10 Blood Culture - Preliminary Blood-Venous NO GROWTH AFTER 4 DAYS 05/20/18 07:40 Blood Culture - Preliminary Blood-Venous NO GROWTH AFTER 4 DAYS Lab Studies 05/25/18 05/24/18 05/24/18 Range/Units 05:10 08:35 08:35 WBC 6.2 D (4.5-11.0) 10^3/uL RBC 3.70 (3.5-6.1) 10^6/uL Hgb 9.4 L D (12.0-16.0) g/dL Hct 29.6 L (36.0-48.0) % MCV 80.0 D (80.0-105.0) fl MCH 25.4 (25.0-35.0) pg MCHC 31.8 (31.0-37.0) g/dl RDW 15.8 H (11.5-14.5) % Plt Count 238 (120.0-450.0) 10^3/uL MPV 9.8 (7.0-11.0) fl Gran % 80.9 H (50.0-68.0) % Lymph % (Auto) 13.0 L (22.0-35.0) % [place] % (Auto) 5.6 (1.0-6.0) % Eos % (Auto) 0.3 L (1.5-5.0) % Baso % (Auto) 0.2 (0.0-3.0) % Gran # 5.03 (1.4-6.5) Lymph # (Auto) 0.8 L (1.2-3.4) [place] # (Auto) 0.4 (0.1-0.6) Eos # (Auto) 0.0 (0.0-0.7) Baso # (Auto) 0.01 (0.0-2.0) K/mm3 pCO2 31 L (35-45) mm/Hg pO2 78.0 L (80-100) mm/Hg HCO3 14.6 L (21-28) mmol/L ABG pH 7.28 L (7.35-7.45) ABG Total CO2 15.6 L (22-28) mmol.L ABG O2 Saturation 95.9 (95-98) % ABG O2 Content 12.4 L (15-23) ML/dl ABG Base Excess -11.1 L (-2.0-3.0) mmol/L ABG Hemoglobin 9.2 L (11.7-17.4) g/dL ABG Carboxyhemoglobin 0.8 (0.5-1.5) % POC ABG HHb (Measured) 4.1 (0-5) % ABG Methemoglobin 0.3 (0.0-3.0) % ABG O2 Capacity 12.9 L (16-24) mL/dl Hgb O2 Saturation 94.7 L (95.0-98.0) % FiO2 40.0 % Sodium 144 (132-148) mmol/L Potassium 3.7 (3.6-5.0) mmol/L Chloride 117 H (98-107) mmol/L Carbon Dioxide 18 L (21-33) mmol/L Anion Gap 13 (10-20) BUN 26 H (7-21) mg/dL Creatinine 1.3 H (0.7-1.2) mg/dl Est GFR ( Amer) 51 Est GFR (Non-Af Amer) 42 POC Glucose (mg/dL) (65-110) mg/dL Random Glucose 168 H (70-110) mg/dL Calcium 8.1 L (8.4-10.5) mg/dL Phosphorus 4.3 (2.5-4.5) mg/dL Magnesium 2.1 (1.7-2.2) mg/dL Total Bilirubin 0.4 (0.2-1.3) mg/dL AST 28 (14-36) U/L ALT 35 (7-56) U/L Alkaline Phosphatase 247 H (38-126) U/L Total Protein 5.2 L (5.8-8.3) g/dL Albumin 2.4 L (3.0-4.8) g/dL Globulin 2.8 gm/dL Albumin/Globulin Ratio 0.9 L (1.1-1.8) 05/24/18 05/23/18 Range/Units 05:00 21:31 WBC (4.5-11.0) 10^3/uL RBC (3.5-6.1) 10^6/uL Hgb (12.0-16.0) g/dL Hct (36.0-48.0) % MCV (80.0-105.0) fl MCH (25.0-35.0) pg MCHC (31.0-37.0) g/dl RDW (11.5-14.5) % Plt Count (120.0-450.0) 10^3/uL MPV (7.0-11.0) fl Gran % (50.0-68.0) % Lymph % (Auto) (22.0-35.0) % [place] % (Auto) (1.0-6.0) % Eos % (Auto) (1.5-5.0) % Baso % (Auto) (0.0-3.0) % Gran # (1.4-6.5) Lymph # (Auto) (1.2-3.4) [place] # (Auto) (0.1-0.6) Eos # (Auto) (0.0-0.7) Baso # (Auto) (0.0-2.0) K/mm3 pCO2 30 L (35-45) mm/Hg pO2 87.0 (80-100) mm/Hg HCO3 16.6 L (21-28) mmol/L ABG pH 7.35 (7.35-7.45) ABG Total CO2 17.5 L (22-28) mmol.L ABG O2 Saturation 96.1 (95-98) % ABG O2 Content 21.4 (15-23) ML/dl ABG Base Excess -7.5 L (-2.0-3.0) mmol/L ABG Hemoglobin 16.0 (11.7-17.4) g/dL ABG Carboxyhemoglobin 0.6 (0.5-1.5) % POC ABG HHb (Measured) 3.9 (0-5) % ABG Methemoglobin 0.4 (0.0-3.0) % ABG O2 Capacity 22.3 (16-24) mL/dl Hgb O2 Saturation 95.1 (95.0-98.0) % FiO2 40.0 % Sodium (132-148) mmol/L Potassium (3.6-5.0) mmol/L Chloride (98-107) mmol/L Carbon Dioxide (21-33) mmol/L Anion Gap (10-20) BUN (7-21) mg/dL Creatinine (0.7-1.2) mg/dl Est GFR ( Amer) Est GFR (Non-Af Amer) POC Glucose (mg/dL) 142 H (65-110) mg/dL Random Glucose (70-110) mg/dL Calcium (8.4-10.5) mg/dL Phosphorus (2.5-4.5) mg/dL Magnesium (1.7-2.2) mg/dL Total Bilirubin (0.2-1.3) mg/dL AST (14-36) U/L ALT (7-56) U/L Alkaline Phosphatase (38-126) U/L Total Protein (5.8-8.3) g/dL Albumin (3.0-4.8) g/dL Globulin gm/dL Albumin/Globulin Ratio (1.1-1.8) Laboratory Results - last 24 hr 05/23/18 05/24/18 05/24/18 21:31 05:00 08:35 WBC 6.2 D RBC 3.70 Hgb 9.4 L D Hct 29.6 L MCV 80.0 D MCH 25.4 MCHC 31.8 RDW 15.8 H Plt Count 238 MPV 9.8 Gran % 80.9 H Lymph % (Auto) 13.0 L [place] % (Auto) 5.6 Eos % (Auto) 0.3 L Baso % (Auto) 0.2 Gran # 5.03 Lymph # (Auto) 0.8 L [place] # (Auto) 0.4 Eos # (Auto) 0.0 Baso # (Auto) 0.01 pCO2 30 L pO2 87.0 HCO3 16.6 L ABG pH 7.35 ABG Total CO2 17.5 L ABG O2 Saturation 96.1 ABG O2 Content 21.4 ABG Base Excess -7.5 L ABG Hemoglobin 16.0 ABG Carboxyhemoglobin 0.6 POC ABG HHb (Measured) 3.9 ABG Methemoglobin 0.4 ABG O2 Capacity 22.3 Hgb O2 Saturation 95.1 FiO2 40.0 Sodium Potassium Chloride Carbon Dioxide Anion Gap BUN Creatinine Est GFR ( Amer) Est GFR (Non-Af Amer) POC Glucose (mg/dL) 142 H Random Glucose Calcium Phosphorus Magnesium Total Bilirubin AST ALT Alkaline Phosphatase Total Protein Albumin Globulin Albumin/Globulin Ratio 05/24/18 05/25/18 08:35 05:10 WBC RBC Hgb Hct MCV MCH MCHC RDW Plt Count MPV Gran % Lymph % (Auto) [place] % (Auto) Eos % (Auto) Baso % (Auto) Gran # Lymph # (Auto) [place] # (Auto) Eos # (Auto) Baso # (Auto) pCO2 31 L pO2 78.0 L HCO3 14.6 L ABG pH 7.28 L ABG Total CO2 15.6 L ABG O2 Saturation 95.9 ABG O2 Content 12.4 L ABG Base Excess -11.1 L ABG Hemoglobin 9.2 L ABG Carboxyhemoglobin 0.8 POC ABG HHb (Measured) 4.1 ABG Methemoglobin 0.3 ABG O2 Capacity 12.9 L Hgb O2 Saturation 94.7 L FiO2 40.0 Sodium 144 Potassium 3.7 Chloride 117 H Carbon Dioxide 18 L Anion Gap 13 BUN 26 H Creatinine 1.3 H Est GFR ( Amer) 51 Est GFR (Non-Af Amer) 42 POC Glucose (mg/dL) Random Glucose 168 H Calcium 8.1 L Phosphorus 4.3 Magnesium 2.1 Total Bilirubin 0.4 AST 28 ALT 35 Alkaline Phosphatase 247 H Total Protein 5.2 L Albumin 2.4 L Globulin 2.8 Albumin/Globulin Ratio 0.9 L Radiology Impressions: Radiology Impressions Chest X-Ray 05/24/18 06:00 IMPRESSION: Increasing infiltrate/greater degree of confluence findings in the right lower lobe. Stable position support apparatus. Fingerstick Blood Sugar Results: 145 Review of Systems - Review of Systems Systems not reviewed;Unavailable: Intubated Critical Care Progress Note - Nutrition Nutrition: Nutrition Category Date Time Status NPO Diet [DIET] Diets 05/19/18 Dinner Ordered Assessment/Plan - Assessment and Plan (Free Text) Assessment: Patient is a 57 year old female with PMHx of HTN, uncontrolled DM2 complicated by retinopathy/gastroparesis, MDD, LAUREN, and TIA/CVA who was admitted for evaluation and treatment of seizure like activity. Patient suspected of experiencing aspiration. She was intubated/sedated due to an inability to protec t her airway. Fever overnight 101.5. Ofirmev given. Neuro Acute encephalopathy,AMS - rule out metabolic vs. toxic - 05/19/18 CT Head without Contrast- No acute findings - 05/20/2019 CT Head without Contrast- No evidence of acute intracranial hemorrhage mass effect or midline shift. No significant interval changes noted - 05/22/2018 Brain MRI without Contrast- There are large areas of restricted diffusion/prolonged T2 signal changes within the the watershed zones of the occipito parietal and parietal and posterior frontal regions predominately involving the cortex.. Rule out watershed zone acute infarcts possibly related to prolonged seizures or hypertensive episode - [id number] Seizures, Hx of TIA/CVA - patient was keppra loaded on admission, continue on keppra 750mg IV q12 - continue to hold levophed, versed & propofol - neurology consulted- appreciate recommendations- posterior reversible encephalopathy syndrome (PRES)- monitor over 72 hours for neuro improvement prior to considering trach, peg, LTAC 05/26 - 05/25/18 Video EEG in progress - high risk fall precautions Neurogenic Fever - keep euthermic Cardiovascular: Hx of HTN - continue to hold levophed - start clonidine 0.2mg/24 hours as per night team - start amlodipine 10mg PO daily - start losartan 100mg PO daily as per nephro - cardiology consulted (Dr. Farmer)- appreciate recommendation - Maintain MAP > 65% Resp: Respiratory Failure s/p Seizure Aspiration - intubated - continue PRVC TV400 RR12 FiO21% PEEP5 - weaning trial and sedation trial daily Aspiration Pneumonia, HAP, Severe Sepsis - 05/19/18 CXR - No active disease - 05/20/18 CXR- right middle lobe infiltrated, gastric bubble noted - 05/25/18 CXR shows no change in bilateral perihilar basilar infiltrates. No pulm vascular congestion. - 05/25/18 ABG shows mild metabolic acidosis - s/p vancomyin 1.5g IV x 1 - continue zosyn 3.375 q8h day 6 - infectious disease consulted (Dr. Sales)- appreciate recommendations GI Hx of Gastroparesis - NPO - continue reglan 5mg mg PO QS - continue zofran 4mg IV q8h - continue bentyl 10mg PO TID - discontinue NS@100cc/hr- start jevity at 10 goal 30 - GI consulted (Dr. Zambrano)- appreciate recommendations GI ppx: - protonix 40mg PO daily Endo Hx DM - continue to hold levemir 6 units SC HS - continue lispro insulin sliding scale low - fingersticks ACHS - maintain euglycemia - endocrinology consulted Dr Coe- appreciate recommendations Renal ANTONIO - likely pre-renal in nature, BUN creatinine returning to baseline - discontinue on IVF NS @ 100cc/hr - No acute need for renal replacement therapy at this time. -Monitor Input/Output, daily weights and renal function with basic metabolic panel - Supplement lytes. K 3.4 repleted 05/25 with 40 KCl solution. - started weekly vit D - Neuro, ID following - PRBC as needed for anemia. add iron and MVI once stable to take orally - Check urine spot protein/creatinine and albumin/creatinine ratio - Check for 25-OH vitamin D, iPTH, phosphorus level - Sodium bicarb tabs for metabolic acidosis - monitor closely via BMP/Creatinine - nephrology consulted- appreciate recommendations Heme Anemia - microcytic - hemoglobin 9.4 s/p 1 unit pRBCs, 9.3 this AM - FOBT - serum iron- low, tibc- low, ferritin- wnl , folate- wnl, b12- elevated, anemia of chronic disease vs iron deficiency anemia DVT Ppx - SCD
[2018-05-25 07:05] LABS: ALB/GLOB RATIO 0.9 (1.1-1.8); ALBUMIN 2.5 g/dL (3.0-4.8); CALCIUM 8.5 mg/dL (8.4-10.5)
[2018-05-25 07:09] LABS: BASO # 0.02 K/mm3 (0.0-2.0); BASO % 0.2 % (0.0-3.0); EOS # 0.1 (0.0-0.7); EOS % 0.9 % (1.5-5.0); GRAN # 6.58 (1.4-6.5); GRAN % 79.9 % (50.0-68.0); HEMOGLOBIN 9.3 g/dL (12.0-16.0); LYMPH # 0.9 (1.2-3.4); LYMPH % 11.2 % (22.0-35.0); MEAN CELL VOLUME 82.3 fl (80.0-105.0); MEAN CORPUSCULAR HEMOGLOBIN 24.9 pg (25.0-35.0); MEAN CORPUSCULAR HGB CONC 30.3 g/dl (31.0-37.0); MEAN PLATELET VOLUME 9.8 fl (7.0-11.0); MONO # 0.6 (0.1-0.6); MONO % 7.8 % (1.0-6.0); RBC 3.73 10^6/uL (3.5-6.1); RED CELL DISTRIBUTION WIDTH 16.3 % (11.5-14.5); WHITE BLOOD COUNT 8.2 10^3/uL (4.5-11.0)
--- NOTE | 2018-05-25 07:35 | RAD ---
Date of service: 05/25/2018 HISTORY: f/u COMPARISON: Portable chest 05/24/2018. FINDINGS: LUNGS: Endotracheal and nasogastric tubes do not appear significantly changed in position as well as right central venous line. Patient rotated toward the right currently further exposing left perihilar/basilar infiltrate and rotating the heart to obscure right perihilar/basilar infiltrate. There is likely no significant interval change bilaterally. PLEURA: No significant pleural effusion identified, no pneumothorax apparent. CARDIOVASCULAR: No aortic atherosclerotic calcification present. Normal cardiac size. No pulmonary vascular congestion. OSSEOUS STRUCTURES: No significant abnormalities. VISUALIZED UPPER ABDOMEN: Normal. OTHER FINDINGS: None. IMPRESSION: No significant interval change in bilateral perihilar/medial basilar infiltrates. No pulmonary vascular congestion.
[2018-05-25] MEDS: Insulin Lispro (humaLOG) LOW Coverage SC SCH ×4 (08:21→22:00)
--- NOTE | 2018-05-25 08:43 | PN ---
DATE: 05/23/2018 CHIEF COMPLAINT: Followup for altered mental status. SUBJECTIVE: The patient is seen and examined at bedside, unresponsive, talked to family at bedside. MRI of the brain showed posterior diffusion in the occipital parietal areas and posterior fundal areas which is involving the contrast, which is less likely infarct rather than seizure-like. Though she was hypotensive, it seems like these are effectual from prolonged seizures. She had left temporal spikes on the EEG and her Keppra is increased to 750 IV every 12 hours. I discussed the results for a possible trach and PEG and long-term care for now with the family if there is no change in the next 72 hours. Currently, she is on Levophed and has low systolic and diastolic blood pressure. Cardiology on board. PAST MEDICAL HISTORY: History of uncontrolled type II diabetes mellitus, retinopathy, gastroparesis, major depressive disorder, generalized anxiety disorder, history of CVA/TIAs, and hypertension. REVIEW OF SYSTEMS: Fourteen-point review of systems is as per HPI. ALLERGIES: VANCOMYCIN, , MORPHINE. SOCIAL HISTORY: Unable to obtain. FAMILY HISTORY: Noncontributory. MEDICATIONS: Reviewed by nurse's reconciliation sheet. LABORATORY DATA: Sodium 139, potassium 3.4, chloride 112, carbon dioxide 22, BUN of 35, creatinine 1.4, random glucose of 126. Magnesium is 2.3. PHYSICAL EXAMINATION: VITAL SIGNS: Temperature 97.5, pulse rate of 80, blood pressure , and respiratory rate of 19, oxygen saturation 94%. GENERAL: Intubated, is on sedation. HEENT: Atraumatic, normocephalic. PERRLA. Extraocular muscles intact. NECK: Supple. No JVD, no adenopathy noted. LUNGS: Clear to auscultation. No adventitious noted. HEART: S1 and S2. Normal rate and rhythm. No murmurs, rubs, or gallops. ABDOMEN: Soft, nontender, nondistended. Bowel sounds are present. EXTREMITIES: No clubbing. No cyanosis. Peripheral pulses 2+ felt bilaterally. NEUROLOGIC: The patient is intubated, on sedation. When taken off sedation, withdraws to noxious stimulus, but otherwise poorly responsive. Speech difficulty. Cranial nerves II through XII intact. Motor Exam: Spasms in lower extremities noted. Sensory Exam: Withdraws when off sedation. DTRs are 1+ throughout in knees and ankles. Coordination: Gait is deferred for now. Toes are upgoing bilaterally. ASSESSMENT AND PLAN: A 57-year-old woman with history of hypertension, uncontrolled diabetes, rhinopathy, gastroparesis, major depressive disorder, generalized anxiety disorder, transient ischemia attack, gastroesophageal reflux disease, who came in for seizure-like activity, found to have posterior diffusion and prolonged T2 changes in the watershed zone of occipital-parietal and parietal-posterior fundal regions consistent with posterior reversible encephalopathy syndrome as well as prolonged seizure activity with abnormal EEG showing left temporal spikes; therefore, Keppra is increased to 750 intravenous every 12 for seizure prophylaxis. She also has fevers. At this time, we will monitor and continue current dose of Keppra. Case discussed with family. Most likely, in 72 hours if no change, we will probably need tracheostomy and percutaneous endoscopic gastrostomy and long-term care in assisted care facility. Continue ICU management. Jose Knight MD
[2018-05-25] MEDS: Venlafaxine 75 mg ER Cap PO SCH (09:32)
[2018-05-25] MEDS ORDERED: Potassium Chloride 40 mEq/30 ml LIQ UD PO STA (09:50)
--- NOTE | 2018-05-25 09:54 | PN ---
DATE: 05/25/2018 SUBJECTIVE: I saw her in the Intensive Care Unit. I saw her with her respiratory therapist who says they might try and wean her off the ventilator today, hope that is possible. She is on Bentyl, Catapres, Cozaar, Drisdol, Effexor, Keppra, Levophed, midazolam, Neurontin, Norvasc, Protonix, Reglan, IV fluid, Xopenex, Zofran, and Zosyn. PHYSICAL EXAMINATION: VITAL SIGNS: She has a 97.7 temperature, 84 pulse, 18 respiratory rate, 100% on the ventilator. She has a 173/93 blood pressure. HEENT: Head is atraumatic, normocephalic. She is not waking up, responds to this morning. HEART: Regular rate. LUNGS: Decreased breath sounds. ABDOMEN: Soft. EXTREMITIES: No edema. LABORATORY DATA: She has a 8.2 white count, 9.3 hemoglobin, 30.7 hematocrit with 275 platelets. Sodium 147, potassium 3.4, we will replace the potassium, BUN 25, creatinine 1.6, GFR is 40, sugar is 253. Calcium 8.5, total bili is 0.3, AST is 27, ALT is 29, alk phos 244. Total protein 5.3. Albumin is 2.5. ASSESSMENT AND PLAN: She has multiple issues. She is being seen by the cooling system operator, the renal doctor, Infectious Disease, Endocrinology, Neurology. Apparently, she has a watershed posterior reversible encephalopathy syndrome disease, very rare, and we are struggling getting her through this if it is possible. She also had methicillin-resistant Staphylococcus aureus. Continue with intravenous antibiotics. Hopefully, we can wean her off the ventilator for respiratory failure. She is starting to have a little bit of renal insufficiency and strokes. Josafat Dent DO
--- NOTE | 2018-05-25 10:37 | CP.PCM.PN ---
Subjective - Date & Time of Evaluation Date of Evaluation: 05/25/18 Time of Evaluation: 08:00 - Subjective Subjective: Endocrinology Progress Note - Dr. Coe Patient was seen and examined at bedside. Patient was febrile overnight as per nursing staff. ROS unavailable. Objective - Vital Signs/Intake and Output Vital Signs (last 24 hours): Temp Pulse Resp BP Pulse Ox 97.7 F 89 18 153/81 H 100 05/25/18 04:00 05/25/18 07:35 05/25/18 07:35 05/25/18 09:35 05/25/18 07:35 Intake and Output: 05/25/18 05/25/18 06:59 18:59 Intake Total 560 Output Total 400 Balance 160 - Medications Medications: Current Medications Amlodipine Besylate (Norvasc) 10 mg PO DAILY [facility] Last Admin: 05/25/18 09:35 Dose: 10 mg Clonidine HCl (Catapres-Tts2 0.2 Mg/24 Hr) 1 patch TD Q7D@0700 PATTI Dicyclomine HCl (Bentyl) 10 mg PO TID [facility] Last Admin: 05/25/18 09:33 Dose: 10 mg Ergocalciferol (Drisdol 50,000 Intl Units Cap) 1 cap PO Q7D PATTI Last Admin: 05/22/18 08:19 Dose: 1 cap Gabapentin (Neurontin) 300 mg PO BID [facility]; Protocol Last Admin: 05/24/18 17:13 Dose: 300 mg Piperacillin Sod/Tazobactam Sod (Zosyn 3.375 In Ns 100ml) 100 mls @ 25 mls/hr IVPB Q8 PATTI; Protocol Stop: 05/27/18 07:01 Last Admin: 05/24/18 21:15 Dose: 25 mls/hr Midazolam 100 mg/100ml in NS (Midazolam 100 Mg/100ml In Ns) 100 mg in 100 mls @ 7 mls/hr IV .[id number] PRN; Protocol PRN Reason: Seizure activity Last Admin: 05/22/18 16:05 Dose: 7 mg/hr, 7 mls/hr Sodium Chloride (Sodium Chloride 0.9%) 1,000 mls @ 100 mls/hr IV .Q10H PATTI Last Admin: 05/24/18 01:58 Dose: 100 mls/hr Propofol (Diprivan) 1,000 mg in 100 mls @ 1.796 mls/hr IV .Q24H PRN; Protocol PRN Reason: TITRATE PER MD ORDER Last Admin: 05/22/18 09:11 Dose: 5 mcg/kg/min, 1.796 mls/hr NOREPINEPHRINE BIT/0.9 % NACL (Levophed 4 Mg/ 250 Ml Ns Premixed) 4 mg in 250 mls @ 15 mls/hr IV .[id number] PRN; Protocol PRN Reason: TITRATE PER MD ORDER Levetiracetam 750 mg/ Sodium (Chloride) 107.5 mls @ 322.5 mls/hr IV Q12H PATTI Last Admin: 05/25/18 05:22 Dose: 322.5 mls/hr Insulin Human Lispro (Humalog Low) 0 units SC ACHS PATTI; Protocol Last Admin: 05/25/18 08:21 Dose: Not Given Levalbuterol HCl (Xopenex) 1.25 mg IH [id number] [facility] Last Admin: 05/25/18 07:32 Dose: 1.25 mg Losartan Potassium (Cozaar) 100 mg PO QPM PATTI Last Admin: 05/24/18 17:13 Dose: 100 mg Metoclopramide HCl (Reglan) 5 mg PO HS PATTI Last Admin: 05/24/18 22:01 Dose: 5 mg Ondansetron HCl (Zofran Tab) 4 mg PO Q8 PATTI Last Admin: 05/24/18 22:01 Dose: 4 mg Pantoprazole Sodium (Protonix Inj) 40 mg IVP DAILY PATTI Last Admin: 05/25/18 09:35 Dose: 40 mg Venlafaxine HCl (Effexor Xr) 75 mg PO DAILY [facility] Last Admin: 05/25/18 09:32 Dose: Not Given - Labs Labs: 05/25/18 06:40 05/25/18 05:00 PT 14.3 SECONDS (9.4-12.5) H 05/21/18 10:15 INR 1.24 05/21/18 10:15 APTT 27.9 Seconds (25.1-36.5) 05/21/18 10:15 - Constitutional Appears: Chronically Ill - Head Exam Head Exam: ATRAUMATIC, NORMAL INSPECTION, NORMOCEPHALIC - Eye Exam Eye Exam: Normal appearance, PERRL Pupil Exam: NORMAL ACCOMODATION, PERRL - ENT Exam ENT Exam: Mucous Membranes Moist - Respiratory Exam Respiratory Exam: Decreased Breath Sounds - Cardiovascular Exam Cardiovascular Exam: RRR, +S1, +S2 - GI/Abdominal Exam GI & Abdominal Exam: Soft, Normal Bowel Sounds - Neurological Exam Neurological Exam: Altered - Skin Skin Exam: Dry, Intact, Normal Color, Warm Assessment and Plan - Assessment and Plan (Free Text) Assessment: 57 F with a PMHx of HTN, uncontrolled DM2 with associated retinopathy/gastroparesis, that was admitted for AMS s/p seizure like activity, respiratory failure with worsening aspiration pneumonia. AMS Aspiration Pneumonia ANTONIO gastroparesis anemia DM Hypermetabolic CVA HTN From endo standpoint, patient blood glucose has remained under better control in the range of 140-170. ISS low algorithm as needed fingersticks achs, holding basal insulin at this time. Consider nutrition and reassess insulin needs as patient is hypermetabolic in
--- NOTE | 2018-05-25 10:46 | CP.PCM.PN ---
Subjective - Date & Time of Evaluation Date of Evaluation: 05/25/18 Time of Evaluation: 10:20 - Subjective Subjective: Still intubated, sedated, no fevers overnight. No diarrhea. Objective - Vital Signs/Intake and Output Vital Signs (last 24 hours): Temp Pulse Resp BP Pulse Ox 97.7 F 89 18 173/93 H 100 05/25/18 04:00 05/25/18 07:35 05/25/18 07:35 05/25/18 07:00 05/25/18 07:35 Intake and Output: 05/25/18 05/25/18 06:59 18:59 Intake Total 560 Output Total 400 Balance 160 - Medications Medications: Current Medications Amlodipine Besylate (Norvasc) 10 mg PO DAILY [facility] Clonidine HCl (Catapres-Tts2 0.2 Mg/24 Hr) 1 patch TD Q7D@0700 [facility] Dicyclomine HCl (Bentyl) 10 mg PO TID [facility] Last Admin: 05/24/18 17:13 Dose: 10 mg Ergocalciferol (Drisdol 50,000 Intl Units Cap) 1 cap PO Q7D [facility] Last Admin: 05/22/18 08:19 Dose: 1 cap Gabapentin (Neurontin) 300 mg PO BID [facility]; Protocol Last Admin: 05/24/18 17:13 Dose: 300 mg Piperacillin Sod/Tazobactam Sod (Zosyn 3.375 In Ns 100ml) 100 mls @ 25 mls/hr IVPB Q8 [facility]; Protocol Stop: 05/27/18 07:01 Last Admin: 05/24/18 21:15 Dose: 25 mls/hr Midazolam 100 mg/100ml in NS (Midazolam 100 Mg/100ml In Ns) 100 mg in 100 mls @ 7 mls/hr IV .[id number] PRN; Protocol PRN Reason: Seizure activity Last Admin: 05/22/18 16:05 Dose: 7 mg/hr, 7 mls/hr Sodium Chloride (Sodium Chloride 0.9%) 1,000 mls @ 100 mls/hr IV .Q10H [facility] Last Admin: 05/24/18 01:58 Dose: 100 mls/hr Propofol (Diprivan) 1,000 mg in 100 mls @ 1.796 mls/hr IV .Q24H PRN; Protocol PRN Reason: TITRATE PER MD ORDER Last Admin: 05/22/18 09:11 Dose: 5 mcg/kg/min, 1.796 mls/hr NOREPINEPHRINE BIT/0.9 % NACL (Levophed 4 Mg/ 250 Ml Ns Premixed) 4 mg in 250 mls @ 15 mls/hr IV .[id number] PRN; Protocol PRN Reason: TITRATE PER MD ORDER Levetiracetam 750 mg/ Sodium (Chloride) 107.5 mls @ 322.5 mls/hr IV Q12H [facility] Last Admin: 05/25/18 05:22 Dose: 322.5 mls/hr Insulin Human Lispro (Humalog Low) 0 units SC ACHS [facility]; Protocol Last Admin: 05/25/18 08:21 Dose: Not Given Levalbuterol HCl (Xopenex) 1.25 mg IH [id number] [facility] Last Admin: 05/25/18 07:32 Dose: 1.25 mg Losartan Potassium (Cozaar) 100 mg PO QPM [facility] Last Admin: 05/24/18 17:13 Dose: 100 mg Metoclopramide HCl (Reglan) 5 mg PO HS [facility] Last Admin: 05/24/18 22:01 Dose: 5 mg Ondansetron HCl (Zofran Tab) 4 mg PO Q8 [facility] Last Admin: 05/24/18 22:01 Dose: 4 mg Pantoprazole Sodium (Protonix Inj) 40 mg IVP DAILY [facility] Last Admin: 05/24/18 13:32 Dose: 40 mg Venlafaxine HCl (Effexor Xr) 75 mg PO DAILY [facility] Last Admin: 05/24/18 13:56 Dose: Not Given - Labs Labs: 05/25/18 06:40 05/25/18 05:00 PT 14.3 SECONDS (9.4-12.5) H 05/21/18 10:15 INR 1.24 05/21/18 10:15 APTT 27.9 Seconds (25.1-36.5) 05/21/18 10:15 - Constitutional Appears: Chronically Ill, Other (intubated,sedated) - Head Exam Head Exam: NORMAL INSPECTION - ENT Exam Additional comments: ET tube in place - Neck Exam Additional comments: right IJ TLC in place - Respiratory Exam Respiratory Exam: Decreased Breath Sounds - Cardiovascular Exam Cardiovascular Exam: +S1, +S2 - GI/Abdominal Exam GI & Abdominal Exam: Soft. absent: Tenderness Assessment and Plan - Assessment and Plan (Free Text) Plan: Assessment systemic inflammatory response syndrome after seizure episode, with VDRF R/O sepsis due to aspiration pneumonia, on top of possible PRES or acute cerebral infarct history of HCAP history of sepsis due to right lower lobe HCAP, clinically improved and S/P treatment history of UTI with Klebsiella oxytoca gastroparesis HTN DM history of TIA history of esophageal ulcers S/P cholecystectomy S/P S/P hysterectomy S/P right foot partial amputation Plan continue Zosyn day 6 for at least 7 days and will continue to monitor clinically discussed with Dr. Dent follow up further Neurology evaluation and recommendations overall prognosis is poor
--- NOTE | 2018-05-25 11:45 | PN ---
DATE: 05/25/2018(710am--800am) SUBJECTIVE: The patient remains on the ventilator. She does open her eyes at times. She does not respond to questions. PHYSICAL EXAMINATION: VITAL SIGNS: Temperature 97.7, pulse 89, respirations 18/12, blood pressure 173/93. HEENT: Normocephalic, atraumatic. NECK: No JVD. CARDIOVASCULAR: Positive S1, S2. No S3 gallop. LUNGS: Decreased breath sounds at the bases. Minimal/less rhonchi. No wheezing. 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 There is no edema in her legs. GI: Abdomen is soft, nontender and nondistended. Bowel sounds are positive. SKIN: No acute rash. NEUROLOGIC: Exam limited at the present time. PERTINENT LABORATORY DATA: Chest x-ray was done this morning and reviewed. There is a decrease in the right lower lobe infiltrate. A minimal left lower lobe infiltrate remains. Arterial blood gas was done on PRVC 12, tidal volume 400, FiO2 40%. Results are: PH 7.28, pCO2 of 31, pO2 of 78. IMPRESSION: 1. Seizure disorder. 2. Respiratory insufficiency. 3. Bilateral pneumonia. 4. Encephalopathy, rule out cerebrovascular accident. 5. Chronic obstructive pulmonary disease. 6. Diabetes mellitus. PLAN: The patient remains on the ventilator and in the ICU. She does open her eyes at times. She does not respond to questions. I did discuss the case with the night nurse at length. The night nurse stated the patient had an uneventful night. I did review the chest x-ray as above. There appears to be a decrease in the right lower lobe infiltrate - compared to yesterday. There is also a minimal left lower lobe infiltrate noted. I would continue with the antibiotic coverage as per Infectious Disease. Input by Dr. Sales is noted. I have also reviewed the arterial blood gas. The arterial blood gas reveals a mild metabolic acidosis with an increase in the alveolar-arterial gradient. I would continue with the current ventilator settings for now. Inputs by Endocrine, Renal, Infectious Disease, and Neurology are also noted. The patient remains critically ill, with overall poor prognosis. I will discuss the above with the entire ICU team in the next few moments. I will also discuss the above with the attending physician later this morning. Cesar Enriquez MD Psychiatric # [id number] [facility]
[2018-05-25] MEDS: Piperacillin/Tazobact 3.375 gm 100 ML IVPB SCH ×2 (13:58→21:04)
--- NOTE | 2018-05-25 15:06 | PN ---
DATE: 05/25/2018 CHIEF COMPLIANT: Followup for altered mental status. SUBJECTIVE: The patient is seen and examined at bedside, MRI of the brain showed features consistent with PRES syndrome with restricted diffusion of occipital parietal and posterior frontal areas. She is on Keppra 750 mg IV every 12 hours for seizure prophylaxis with abnormal EEG and initial with a left temporal spikes. She is breathing over the vent, may need to be trached and PEG'd for long-term care at this point. She has systemic inflammatory response syndrome for seizure with VDRF and aspiration pneumonia, on antibiotics and terazosin. PAST MEDICAL HISTORY: History of uncontrolled type 2 diabetes mellitus, complicated by retinopathy, gastroparesis, major depressive disorder, generalized anxiety disorder, history of CVA/TIAs, and hypertension. REVIEW OF SYSTEMS: As per HPI given the patient's mental status. ALLERGIES: VANCOMYCIN AND MORPHINE. SOCIAL HISTORY: Unable to obtain. FAMILY HISTORY: Noncontributory. MEDICATIONS: Reviewed by nurse's reconciliation sheet. LABORATORY DATA: Sodium is 137, potassium 3.4, chloride 118, carbon dioxide 17, BUN is 25, creatinine 1.0, random glucose of 253. CURRENT PHYSICAL EXAMINATION: GENERAL: The patient remains on sedation. VITAL SIGNS: Temperature afebrile, pulse rate of 90, blood pressure 159/84. HEENT: Atraumatic, normocephalic. PERRLA. Extraocular muscles intact. NECK: Supple. No JVD. No adenopathy noted. LUNGS: Decreased breath sounds bilaterally. Scattered rhonchi. HEART: S1 and S2. Normal rate and rhythm. No murmurs, rubs or gallops. ABDOMEN: Soft, nontender, and nondistended. Bowel sounds are present. EXTREMITIES: No clubbing. Peripheral pulses 2+ felt bilaterally. NEUROLOGIC: The patient is intubated, sedated, , withdraws to noxious stimulus, but otherwise poorly responsive. Speech is difficult to obtain at this time. Cranial nerves II through XII are intact. Motor exam: Spasms, spontaneous movements in lower extremities with noxious stimulus, otherwise no spontaneous movements seen. Sensory; withdraws but does not localize to noxious stimulus when sedation is off. DTRs are 1+ throughout, 1 at both knees and ankles. Coordination: Gait deferred for now. CURRENT ASSESSMENT AND PLAN: This is a 57-year-old woman with history of hypertension, uncontrolled diabetes, complicated by retinopathy, gastroparesis, major depressive disorder, generalized anxiety disorder, transient ischemia attacks, gastroesophageal reflux disease, who came in for seizure-like activity, found to have posterior restricted diffusion, prolonged T2 changes in the watershed zone of occipital-parietal and parietal-posterior frontal regions consistent with posterior reversible encephalopathy syndrome as well as prolonged seizure activity with abnormal EEG showing left temporal spikes and had a Keppra, she is currently on Keppra 750 mg IV every 12 hours. She does have some VDRL and systemic inflammatory response syndrome, on antibiotics. At this time, prognosis seems quite poor given her uncomplicated medical conditions. We recommend tracheostomy and PEG tube and transfer to long-term care facility to see if she perhaps step out of this. She is triggering the vent. At this time, we will also get a repeat continuous EEG and to see any further seizure activity and continue ICU management. Jose Knight MD
--- NOTE | 2018-05-25 15:46 | CP.PCM.PN ---
Subjective - Date & Time of Evaluation Date of Evaluation: 05/25/18 Time of Evaluation: 15:45 - Subjective Subjective: Nephrology Consultation Note: Assessment: critical Acute Kidney Injury (N17.9) likely hemodynamic injury due to BP fluctuations, sepsis with shock urine retention likely neurogenic bladder ? seizure with abnormal EEG/MRI--PRESS, aspiration pneumonia hyperglycemia with uncontrolled DM Anemia , hypokalemia hypomagnesemia hyponatremia Diabetic chronic Kidney Disease (E11.22) Hypertensive Chronic Kidney Disease (I12.9) Chronic Kidney Disease (N18.1) Stage with ? mg proteinuria (R80.9) likely due to DM Type 1 diabetes Mellitus (>20 years) complicated by neuropathy, retinopathy and gastroparesis neurogenic bladder hx of TIA, GERD, kidney stones, hx of hemicolectomy severe pulmonary HTN Plan No acute need for renal replacement therapy at this time. Patient not on ACEI/ARB due to ANTONIO. other BP meds added by team already. supplement lytes as needed. Monitor Input/Output, daily weights and renal function with basic metabolic p alex supplement lytes started weekly vit D Neuro, ID following PRBC as needed for anemia. add iron and MVI once stable to take orally agree with IVF as LR @ 75 ml/hr. started sodium bicarb 1300 mg bid via NG tube for metabolic acidosis Check urine spot protein/creatinine and albumin/creatinine ratio Check for 25-OH vitamin D, iPTH, phosphorus level Anemia work up with TSAT/Ferritin and b12/folate level Dose meds/antibiotics for reduced GFR. Avoid fleets enema/magnesium based laxatives. Avoid nephrotoxins/NSAIDs/ iodinated contrast (unless needed emergently) Glycemic control Further work up/management as per primary team Thanks for allowing me to participate in care of your patient. Will follow patient with you. Please call if any Qs. had d/w team Dr Onesimo Guerra Office: [phone] Chief Complaint; seizure reason for consult: ANTONIO HPI: Pt is a 57 F with hx of Type 1 diabetes Mellitus (>20 years) complicated by neuropathy, retinopathy, gastroparesis, neurogenic bladder hypertension (years), TIA, GERD, kidney stones, hx of hemicolectomy presented with complaints of seizures and aspiration pneumonia. renal consult for ANTONIO evaluation and manage ment. Denies OTC/herbal meds or NSAIDs Noted recent iodinated contrast exposure on 05/16/18. Noted obvious episodes of low BP (SBP 90s), high BP (SBP 200+) ROS: unable to obtain. off pressors. BP high now Physical Examination: General Appearance: comfortable, in no acute respiratory distress, intubated Vitals reviewed and noted as below Head; Atraumatic, normocephalic ENT: orally intubated Neck; supple no lymphadenopathy, no thyromegaly or bruit Lungs: Normal respiratory rate/effort. Breath sounds bilateral equal and rt basal crackle Heart: Normal rate. s1s2 normal. No rub or gallop. Extremities: no edema. No varicose veins Neurological: Patient is waking up Skin: Warm and dry. Normal turgor. No rash. Palpitation: Normal elasticity for age Abdomen: Abdomen is soft. Bowel sounds +. There is no abdominal tenderness, no guarding/rigidity no organomegaly Psych: deferred MSK: no joint tenderness or swelling. Digits and nails normal, no deformity : kidney not palpable has gay Labs/imaging reviewed. Past medical history, past surgical history, family history, social history, allergy reviewed and noted as below Family hx: no hx of CKD. Rest non-contributory work up: UA 3+ protein with moderate blood a1c 10.2% CT abdomen: normal adrenal. hx of b/l nephrolithiasis. distended urinary bladder Objective - Vital Signs/Intake and Output Vital Signs (last 24 hours): Temp Pulse Resp BP Pulse Ox 97.6 F 98 H 22 159/84 H 96 05/25/18 08:00 05/25/18 11:40 05/25/18 11:13 05/25/18 11:00 05/25/18 11:40 Intake and Output: 05/25/18 05/25/18 06:59 18:59 Intake Total 560 Output Total 400 Balance 160 - Medications Medications: Current Medications Amlodipine Besylate (Norvasc) 10 mg PO DAILY [facility] Last Admin: 05/25/18 09:35 Dose: 10 mg Clonidine HCl (Catapres-Tts2 0.2 Mg/24 Hr) 1 patch TD Q7D@0700 [facility] Dicyclomine HCl (Bentyl) 10 mg PO TID [facility] Last Admin: 05/25/18 14:02 Dose: 10 mg Ergocalciferol (Drisdol 50,000 Intl Units Cap) 1 cap PO Q7D [facility] Last Admin: 05/22/18 08:19 Dose: 1 cap Gabapentin (Neurontin) 300 mg PO BID [facility]; Protocol Last Admin: 05/25/18 10:00 Dose: 300 mg Piperacillin Sod/Tazobactam Sod (Zosyn 3.375 In Ns 100ml) 100 mls @ 25 mls/hr IVPB Q8 [facility]; Protocol Stop: 05/27/18 07:01 Last Admin: 05/25/18 13:58 Dose: 25 mls/hr Midazolam 100 mg/100ml in NS (Midazolam 100 Mg/100ml In Ns) 100 mg in 100 mls @ 7 mls/hr IV .[id number] PRN; Protocol PRN Reason: Seizure activity Last Admin: 05/22/18 16:05 Dose: 7 mg/hr, 7 mls/hr Sodium Chloride (Sodium Chloride 0.9%) 1,000 mls @ 100 mls/hr IV .Q10H [facility] Last Admin: 05/24/18 01:58 Dose: 100 mls/hr Propofol (Diprivan) 1,000 mg in 100 mls @ 1.796 mls/hr IV .Q24H [facility]; Protocol PRN Reason: TITRATE PER MD ORDER Last Admin: 05/22/18 09:11 Dose: 5 mcg/kg/min, 1.796 mls/hr NOREPINEPHRINE BIT/0.9 % NACL (Levophed 4 Mg/ 250 Ml Ns Premixed) 4 mg in 250 mls @ 15 mls/hr IV .[id number] PRN; Protocol PRN Reason: TITRATE PER MD ORDER Levetiracetam 750 mg/ Sodium (Chloride) 107.5 mls @ 322.5 mls/hr IV Q12H [facility] Last Admin: 05/25/18 05:22 Dose: 322.5 mls/hr Lactated Ringer's 1,000 ml/ IV (SUPPLIES) 1,000 mls @ 75 mls/hr IV ONCE ONE Stop: 05/26/18 03:02 Last Admin: 05/25/18 13:53 Dose: 75 mls/hr Insulin Human Lispro (Humalog Low) 0 units SC ACHS [facility]; Protocol Last Admin: 05/25/18 12:51 Dose: Not Given Levalbuterol HCl (Xopenex) 1.25 mg IH [id number] [facility] Last Admin: 05/25/18 14:22 Dose: 1.25 mg Losartan Potassium (Cozaar) 100 mg PO QPM [facility] Last Admin: 05/24/18 17:13 Dose: 100 mg Metoclopramide HCl (Reglan) 5 mg PO HS [facility] Last Admin: 05/24/18 22:01 Dose: 5 mg Ondansetron HCl (Zofran Tab) 4 mg PO Q8 [facility] Last Admin: 05/25/18 13:58 Dose: 4 mg Pantoprazole Sodium (Protonix Inj) 40 mg IVP DAILY [facility] Last Admin: 05/25/18 09:35 Dose: 40 mg Sodium Bicarbonate (Sodium Bicarbonate Tab) 1,300 mg NG BID [facility] Venlafaxine HCl (Effexor Xr) 75 mg PO DAILY [facility] Last Admin: 05/25/18 09:32 Dose: Not Given - Labs Labs: 05/25/18 06:40 05/25/18 05:00 PT 14.3 SECONDS (9.4-12.5) H 05/21/18 10:15 INR 1.24 05/21/18 10:15 APTT 27.9 Seconds (25.1-36.5) 05/21/18 10:15
--- NOTE | 2018-05-25 18:53 | PN ---
DATE: 05/25/2018 SUBJECTIVE: The patient is seen and examined at bedside. She is off of sedation, however, comfortable and tolerated pressure support trial very well. She is not responsive to touch or verbal stimuli. She is on pressure support 5/5 with FiO2 40%. PHYSICAL EXAMINATION: VITAL SIGNS: Her blood pressure is 131/63, oxygen saturation 97%, respiratory rate 20, end-tidal CO2 on the monitor 26, heart rate 82. ENT: Head and neck atraumatic. The patient is intubated. LUNGS: Clear to auscultation bilaterally. HEART: Regular rate. S1, S2 normal. ABDOMEN: Soft, nontender, and nondistended. MUSCULOSKELETAL: Trace bilateral pedal and ankle edema. NEURO: The patient was not seen, spontaneously moving all extremities. SKIN: Moist. PSYCH: The patient is not responsive to verbal or touch stimuli. LABORATORY DATA: WBC 8.2, hemoglobin 9.3, platelet count 275. Sodium 147, potassium 3.4, chloride 118, carbon dioxide 17, BUN 25, creatinine 1.6, glucose 253, AST 27, ALT 29, total bilirubin 0.3, albumin 2.5. ABG, 7./. Influenza negative. U tox screen positive for benzos. MICROBIOLOGY: Labs negative for blood culture. Urine culture positive for yeast species. MEDICATIONS: Norvasc, clonidine patch, Bentyl, Neurontin, regular insulin sliding scale low protocol, Xopenex, Keppra, Cozaar, Reglan, Zofran, Protonix, Effexor, Zosyn. ASSESSMENT AND PLAN: This is a 57-year-old lady with history of seizure disorder, hypertension, who presented with breakthrough seizures with subsequent aspiration pneumonia/pneumonitis, requiring intubation. Her electroencephalogram afterwards confirmed epileptiform activity. The patient was treated with Keppra and initially put on propofol. She is weaned off of benzodiazepines at present time, however, still not waking up. Her MRI of the brain revealed posterior reversible encephalopathy syndrome. We will repeat electroencephalogram to rule out ongoing nonconvulsive seizures. We will continue with Keppra. I spoke with neurology service (Dr. Jose Knight) who agreed with video electroencephalogram and no need for immediate benzodiazepines restarted. Neuro: The patient is still poorly responsive. We will repeat electroencephalogram, neurology followup appreciated. MRI of the brain revealed posterior reversible encephalopathy syndrome. We will maintain normotension, euglycemia, and euvolemia. 1. Pulmonary: The patient tolerated pressure support trial. We will continue with conservative fluid and oxygen management, head of bed elevated >35 degrees, oral hygiene. Daily sedation vacation and weaning trials once her mental status improved. 2. Cardiovascular: The patient is hemodynamically stable, Echo-->significant for RVSP 70, may need further workup when mental status improved. No LV or RV significant abnormality. No LA or RA significant abnormality 3. Infectious disease: The patient is afebrile, does not have leukocytosis. My suspicion for ongoing infection is low. 4. Renal: The patient has acute kidney injury with metabolic acidosis. That is in the setting of hyperchloremia. Nephrology service is on board. We will switch the patient to more balanced crystalloids (lactated Ringer). We will continue to monitor urine output with a goal of more than 0.5 cc/kg/hour. We will try to avoid nephrotoxic medication. Try to maintain euvolemia, euglycemia, and normothermia. 5. Endocrine: We will maintain blood glucose within 140-180 range according to night sugar trial. 6. Gastrointestinal: The patient tolerates enteral nutrition well. Gastrointestinal prophylaxis. ccm time 40 min Delfin Esqueda MD [facility]DS[facility]
--- NOTE | 2018-05-25 19:33 | PN ---
DATE: 05/25/2018 CARDIOLOGY FOLLOWUP SUBJECTIVE: The patient remains on a ventilator and sedated. PHYSICAL EXAMINATION: VITAL SIGNS: Blood pressure is 170/90, heart rate in the 80s. NECK: Negative JVD. CARDIOPULMONARY: Reveal S1 and S2. LUNGS: Without rales. EXTREMITIES: Without edema. LABORATORY DATA: Hemoglobin is 9.3. Chemistries: BUN and creatinine 25 and 1.6. IMPRESSION: 1. Respiratory failure. 2. Seizure disorder. 3. Renal insufficiency. 4. Diabetes mellitus. 5. History of gastroparesis. PLAN: Given these findings, the patient remains hemodynamically stable. The patient is currently on IV antibiotics. The overall prognosis is poor. Carter Farmer MD
--- NOTE | 2018-05-25 21:27 | PN ---
DATE: 05/25/2018 LOCATION: ICU 128, room 1. SUBJECTIVE: This is a 57-year-old female with recent acute respiratory failure, currently intubated and barely responsive and is now also being followed closely for metabolic management. She had a recurrent seizure event with supervening acute aspiration pneumonitis and subsequent acute respiratory failure as noted. Her glycemic levels today have started to fluctuate and accelerate with glucose values ranging from 250 to 297 and 311 mg/dL. It was 169 to 195 at bedtime last night. Her chemistry showed a BUN of 25, sodium 147, potassium 3.4, chloride 118, CO2 of 17, glucose 253, and creatinine 1.6. She has ongoing bicarbonate infusion as noted. ASSESSMENT AND PLAN: So, at this time, we will initiate a low dose basal insulin with Levemir to be started at 10 units subcutaneously every 12 hours at 10 a.m. and 10 p.m. to start tonight as ordered. We will continue the low-dose correction scale using Humalog insulin as given. We will obtain serial chemistries and supplement accordingly as needed. We will titrate her basal insulin to optimize metabolic control. We will follow. Tita Coe MD
[2018-05-25] MEDS: Insulin Detemir 100 units/ml Vial (Levemir) SC SCH (22:38)
[2018-05-26] MEDS: Levalbuterol 1.25 MG/3 ML Inhal Soln UD IH SCH ×4 (01:28→20:10)
[2018-05-26] MEDS: Piperacillin/Tazobact 3.375 gm 100 ML IVPB SCH ×4 (05:40→21:40)
[2018-05-26 05:55] LABS: ARTERIAL BLOOD GAS HCO3 22.4 mmol/L (21-28); ARTERIAL BLOOD GAS HEMOGLOBIN 9.3 g/dL (11.7-17.4); ARTERIAL BLOOD GAS O2 CAPACITY 13.1 mL/dl (16-24); ARTERIAL BLOOD GAS O2 CONTENT 12.5 ML/dl (15-23); ARTERIAL BLOOD GAS O2 SAT 95.7 % (95-98); ARTERIAL BLOOD GAS PCO2 37 mm/Hg (35-45); ARTERIAL BLOOD GAS PH 7.39 (7.35-7.45); ARTERIAL BLOOD GAS TCO2 23.5 mmol.L (22-28)
--- NOTE | 2018-05-26 06:52 | CP.CCUPN ---
<Carter,Joao - Last Filed: 05/26/18 12:34> CCU Subjective - Physician Review Subjective (Free Text): Joao Carter Internal Medicine Resident- Progress Note on Behalf of Critical Care Team Subjective: Patient seen and examined at bedside. No acute events overnight. Further subjective data cannot be ascertained at this time. 12 point ROS cannot be ascertained at this time due to altered mental status Physical Examination: - Constitutional Appears: No Acute Distress - Head Exam Head Exam: ATRAUMATIC, NORMAL INSPECTION, NORMOCEPHALIC - Eye Exam Eye Exam: sluggish pupillary response bilaterally - ENT Exam ENT Exam: Mucous Membranes Dry, Normal Exam - Neck Exam Neck exam: Positive for: Normal Inspection - Respiratory Exam Respiratory Exam: diminished breath sounds bilateral lower lobes - Cardiovascular Exam Cardiovascular Exam: tachycardic, +S1, +S2. absent: Gallop, JVD, Rubs - GI/Abdominal Exam GI & Abdominal Exam: Normal Bowel Sounds, Soft. absent: Tenderness - Neurological Exam Neurological exam: Altered mental status, No longer opens eyes to verbal stimuli. Grimaces to painful stimuli. Gag reflex intact - Skin Skin Exam: Dry, Intact, Normal Color, War Assessment and Plan: Patient is a 57 year old female with PMHx of HTN, uncontrolled DM2 complicated by retinopathy/gastroparesis, MDD, LAUREN, and TIA/CVA who was admitted for evaluation and treatment of seizure like activity. Patient suspected of experiencing aspiration. She was intubated/sedated due to an inability to protect her airway. Neurology AMS 2/2 Status Epilepticus - 05/19/18 CT Head without Contrast- No acute findings - 05/20/2019 CT Head without Contrast- No evidence of acute intracranial hemorrhage mass effect or midline shift. No significant interval changes noted - 05/22/2018 Brain MRI without Contrast- There are large areas of restricted diffusion/prolonged T2 signal changes within the the watershed zones of the occipito parietal and parietal and posterior frontal regions predominately involving the cortex.. Rule out watershed zone acute infarcts possibly related to prolonged seizures or hypertensive episode - 05/11/18 VEEG- moderate background slowing, left temporal interictal epileptiform discharges, left temporal slowing - continue on keppra 750mg IV q12 - continue VEEG to monitor for status epilepticus- No seizures. Not in status epilepticus. - continue sedation vacation - hold versed drip 7mcg/hr & propofol @ 5mcg/kg/min - neurology consulted- appreciate recommendations- posterior reversible encephalopathy syndrome (PRES)- monitor over 72 hours for neuro improvement prior to considering trach, peg, ltac Cardiovascular: Hx of HTN - continue to hold levophed - continue clonidine 0.2mg/24 hours - continue amlodipine 10mg PO daily - hold losartan 100mg PO daily as per nephro - cardiology consulted (Dr. Farmer)- appreciate recommendation SVT - lopressor 5mg IV x 1 - started on lopressor 25mg PO BID with holding parameters Resp: Respiratory Failure s/p Seizure Aspiration - intubated - continue weaning protocol via pressure support - head of bed at 35 degrees - conservative fluid management - continue oral hygiene - GI protonix and DVT prophylaxis- scds Aspiration Pneumonia, HAP, Severe Sepsis - 05/25/2108 CXR No significant interval change in bilateral perihilar/medial basilar infiltrates. No pulmonary vascular congestion. - 05/26/2018- CXR There is a right-sided perihilar infiltrate unchanged. The left-sided infiltrate has improved. Central lines and tubes unchanged - s/p vancomyin 1.5g IV x 1 - continue zosyn 3.375 q8h (day 7) - infectious disease consulted (Dr. Sales)- appreciate recommendations GI Hx of Gastroparesis - NPO - continue reglan 5mg mg PO QS - continue bentyl 10mg PO TID - continue jevity at 10 goal 30 - GI consulted (Dr. Zambrano)- appreciate recommendations GI ppx: - protonix 40mg PO daily Endo Hx DM - continue levemir 10 q12 units SC HS, BGs 250s - continue lispro insulin sliding scale low - fingersticks ACHS - maintain euglycemia - endocrinology consulted Dr Coe- appreciate recommendations Renal ANTONIO - likely pre-renal in nature, BUN creatinine returning to baseline - monitor closely via BMP/Creatinine - nephrology consulted- appreciate recommendations Heme Anemia - microcytic - hemoglobin 8.7 from 9.3, downtrending - FOBT ordered and pending - serum iron- low, tibc- low, ferritin- wnl , folate- wnl, b12- elevated, anemia of chronic disease vs iron deficiency anemia - recommend starting iron supplements DVT Ppx - SCD Patient case discussed with and plan approved by attending physician, Dr. Marroquin. CCU Objective - Vital Signs / Intake & Output Intake and Output (Last 8hrs): Intake & Output 05/25/18 05/25/18 05/26/18 14:59 22:59 06:59 Intake Total 1410 Output Total 650 Balance 760 Intake: IV 800 Right Internal Jugular 700 keppra 100 Tube Feeding 360 Other 250 Output: Urine 650 Urethral (Wan) 650 Other: # Bowel Movements 0 - Physical Exam Head: Positive for: Atraumatic, Normocephalic Pupils: Positive for: PERRL Extroacular Muscles: Positive for: EOMI Conjunctiva: Positive for: Normal Mouth: Positive for: Moist Mucous Membranes Neck: Positive for: Normal Range of Motion Respiratory/Chest: Positive for: Clear to Auscultation, Good Air Exchange. Negative for: Respiratory Distress, Accessory Muscle Use Cardiovascular: Positive for: Regular Rate and Rhythm, Normal S1, S2. Negative for: Murmurs Abdomen: Negative for: Tenderness, Distention, Peritoneal Signs Back: Positive for: Normal Inspection Upper Extremity: Positive for: Normal Inspection. Negative for: Cyanosis, Edema Lower Extremity: Positive for: Other (Right foot amputation noted). Negative for: Edema Neurological: Positive for: CN II-XII Intact, Speech Normal, Motor Func Grossly Intact Skin: Positive for: Warm, Dry, Normal Color. Negative for: Rashes Psychiatric: Positive for: Alert, Oriented x 3, Normal Insight, Normal Concentration - Medications Active Medications: Active Medications Generic Name Dose Route Start Last Admin Trade Name Freq PRN Reason Stop Dose Admin Amlodipine Besylate 10 mg 05/24/18 11:13 05/25/18 09:35 Norvasc PO 10 mg DAILY PATTI Administration Clonidine HCl 1 patch 05/24/18 11:15 Catapres-Tts2 0.2 Mg/24 Hr TD Q7D@0700 PATTI Dicyclomine HCl 10 mg 05/19/18 18:00 05/25/18 17:13 Bentyl PO 10 mg TID PATTI Administration Ergocalciferol 1 cap 05/22/18 07:15 05/22/18 08:19 Drisdol 50,000 Intl Units Cap PO 1 cap Q7D PATTI Administration Gabapentin 300 mg 05/19/18 18:00 05/25/18 17:13 Neurontin PO 300 mg BID PATTI Administration Protocol Piperacillin Sod/Tazobactam Sod 100 mls @ 25 mls/hr 05/20/18 07:00 05/26/18 05:40 Zosyn 3.375 In Ns 100ml IVPB 05/27/18 07:01 25 mls/hr Q8 PATTI Administration Protocol Midazolam 100 mg/100ml in NS 100 mg in 100 mls @ 7 mls/hr 05/20/18 08:31 05/22/18 16:05 Midazolam 100 Mg/100ml In Ns IV 7 mg/hr .[id number] PRN 7 mls/hr Seizure activity Administration Protocol 7 MG/HR Sodium Chloride 1,000 mls @ 100 mls/hr 05/20/18 10:45 05/24/18 01:58 Sodium Chloride 0.9% IV 100 mls/hr .Q10H PATTI Administration Propofol 1,000 mg in 100 mls @ 1.796 mls/hr 05/20/18 10:44 05/22/18 09:11 Diprivan IV 5 mcg/kg/min .Q24H PRN 1.796 mls/hr TITRATE PER MD ORDER Administration Protocol 5 MCG/KG/MIN NOREPINEPHRINE BIT/0.9 % NACL 4 mg in 250 mls @ 15 mls/hr 05/21/18 12:53 Levophed 4 Mg/ 250 Ml Ns Premixed IV .[id number] PRN TITRATE PER MD ORDER Protocol 4 MCG/MIN Levetiracetam 750 mg/ Sodium 107.5 mls @ 322.5 mls/hr 05/22/18 18:00 05/26/18 05:38 Chloride IV 322.5 mls/hr Q12H PATTI Administration Insulin Detemir 10 unit 05/25/18 22:00 05/25/18 22:38 Levemir SC 10 u Q12H PATTI Administration Insulin Human Lispro 0 units 05/20/18 07:30 05/25/18 22:00 Humalog Low SC 2 u ACHS PATTI Administration Protocol Levalbuterol HCl 1.25 mg 05/20/18 08:00 05/26/18 01:28 Xopenex IH 1.25 mg [id number] PATTI Administration Losartan Potassium 100 mg 05/24/18 18:00 05/24/18 17:13 Cozaar PO 100 mg QPM PATTI Administration Metoclopramide HCl 5 mg 05/19/18 22:00 05/25/18 21:04 Reglan PO 5 mg HS PATTI Administration Ondansetron HCl 4 mg 05/19/18 22:00 05/26/18 05:39 Zofran Tab PO 4 mg Q8 PATTI Administration Pantoprazole Sodium 40 mg 05/21/18 10:00 05/25/18 09:35 Protonix Inj IVP 40 mg DAILY PATTI Administration Sodium Bicarbonate 1,300 mg 05/25/18 15:00 05/25/18 17:13 Sodium Bicarbonate Tab NG 1,300 mg BID PATTI Administration Venlafaxine HCl 75 mg 05/20/18 10:00 05/25/18 09:32 Effexor Xr PO Not Given DAILY PATTI - Patient Studies Lab Studies: Microbiology Studies 05/20/18 07:40 Blood Culture - Final Blood-Venous NO GROWTH AFTER 5 DAYS Gram Stain - Final TEST NOT PERFORMED 05/20/18 07:10 Blood Culture - Final Blood-Venous NO GROWTH AFTER 5 DAYS Gram Stain - Final TEST NOT PERFORMED Lab Studies 05/26/18 05/25/18 05/25/18 Range/Units 05:15 22:03 16:11 WBC (4.5-11.0) 10^3/uL RBC (3.5-6.1) 10^6/uL Hgb (12.0-16.0) g/dL Hct (36.0-48.0) % MCV (80.0-105.0) fl MCH (25.0-35.0) pg MCHC (31.0-37.0) g/dl RDW (11.5-14.5) % Plt Count (120.0-450.0) 10^3/uL MPV (7.0-11.0) fl Gran % (50.0-68.0) % Lymph % (Auto) (22.0-35.0) % [place] % (Auto) (1.0-6.0) % Eos % (Auto) (1.5-5.0) % Baso % (Auto) (0.0-3.0) % Gran # (1.4-6.5) Lymph # (Auto) (1.2-3.4) [place] # (Auto) (0.1-0.6) Eos # (Auto) (0.0-0.7) Baso # (Auto) (0.0-2.0) K/mm3 pCO2 37 (35-45) mm/Hg pO2 73.0 L (80-100) mm/Hg HCO3 22.4 (21-28) mmol/L ABG pH 7.39 (7.35-7.45) ABG Total CO2 23.5 (22-28) mmol.L ABG O2 Saturation 95.7 (95-98) % ABG O2 Content 12.5 L (15-23) ML/dl ABG Base Excess -2.3 L (-2.0-3.0) mmol/L ABG Hemoglobin 9.3 L (11.7-17.4) g/dL ABG Carboxyhemoglobin 0.8 (0.5-1.5) % POC ABG HHb (Measured) 4.3 (0-5) % ABG Methemoglobin 0.3 (0.0-3.0) % ABG O2 Capacity 13.1 L (16-24) mL/dl Hgb O2 Saturation 94.6 L (95.0-98.0) % FiO2 40.0 % Sodium (132-148) mmol/L Potassium (3.6-5.0) mmol/L Chloride (98-107) mmol/L Carbon Dioxide (21-33) mmol/L Anion Gap (10-20) BUN (7-21) mg/dL Creatinine (0.7-1.2) mg/dl Est GFR ( Amer) Est GFR (Non-Af Amer) POC Glucose (mg/dL) 367 H 311 H (65-110) mg/dL Random Glucose (70-110) mg/dL Calcium (8.4-10.5) mg/dL Total Bilirubin (0.2-1.3) mg/dL AST (14-36) U/L ALT (7-56) U/L Alkaline Phosphatase (38-126) U/L Total Protein (5.8-8.3) g/dL Albumin (3.0-4.8) g/dL Globulin gm/dL Albumin/Globulin Ratio (1.1-1.8) 05/25/18 05/25/18 05/25/18 Range/Units 11:46 07:34 06:40 WBC 8.2 D (4.5-11.0) 10^3/uL RBC 3.73 (3.5-6.1) 10^6/uL Hgb 9.3 L (12.0-16.0) g/dL Hct 30.7 L (36.0-48.0) % MCV 82.3 (80.0-105.0) fl MCH 24.9 L (25.0-35.0) pg MCHC 30.3 L (31.0-37.0) g/dl RDW 16.3 H (11.5-14.5) % Plt Count 275 (120.0-450.0) 10^3/uL MPV 9.8 (7.0-11.0) fl Gran % 79.9 H (50.0-68.0) % Lymph % (Auto) 11.2 L (22.0-35.0) % [place] % (Auto) 7.8 H (1.0-6.0) % Eos % (Auto) 0.9 L (1.5-5.0) % Baso % (Auto) 0.2 (0.0-3.0) % Gran # 6.58 H (1.4-6.5) Lymph # (Auto) 0.9 L (1.2-3.4) [place] # (Auto) 0.6 (0.1-0.6) Eos # (Auto) 0.1 (0.0-0.7) Baso # (Auto) 0.02 (0.0-2.0) K/mm3 pCO2 (35-45) mm/Hg pO2 (80-100) mm/Hg HCO3 (21-28) mmol/L ABG pH (7.35-7.45) ABG Total CO2 (22-28) mmol.L ABG O2 Saturation (95-98) % ABG O2 Content (15-23) ML/dl ABG Base Excess (-2.0-3.0) mmol/L ABG Hemoglobin (11.7-17.4) g/dL ABG Carboxyhemoglobin (0.5-1.5) % POC ABG HHb (Measured) (0-5) % ABG Methemoglobin (0.0-3.0) % ABG O2 Capacity (16-24) mL/dl Hgb O2 Saturation (95.0-98.0) % FiO2 % Sodium (132-148) mmol/L Potassium (3.6-5.0) mmol/L Chloride (98-107) mmol/L Carbon Dioxide (21-33) mmol/L Anion Gap (10-20) BUN (7-21) mg/dL Creatinine (0.7-1.2) mg/dl Est GFR ( Amer) Est GFR (Non-Af Amer) POC Glucose (mg/dL) 297 H 250 H (65-110) mg/dL Random Glucose (70-110) mg/dL Calcium (8.4-10.5) mg/dL Total Bilirubin (0.2-1.3) mg/dL AST (14-36) U/L ALT (7-56) U/L Alkaline Phosphatase (38-126) U/L Total Protein (5.8-8.3) g/dL Albumin (3.0-4.8) g/dL Globulin gm/dL Albumin/Globulin Ratio (1.1-1.8) 05/25/18 05/24/18 05/24/18 Range/Units 05:00 21:32 15:59 WBC (4.5-11.0) 10^3/uL RBC (3.5-6.1) 10^6/uL Hgb (12.0-16.0) g/dL Hct (36.0-48.0) % MCV (80.0-105.0) fl MCH (25.0-35.0) pg MCHC (31.0-37.0) g/dl RDW (11.5-14.5) % Plt Count (120.0-450.0) 10^3/uL MPV (7.0-11.0) fl Gran % (50.0-68.0) % Lymph % (Auto) (22.0-35.0) % [place] % (Auto) (1.0-6.0) % Eos % (Auto) (1.5-5.0) % Baso % (Auto) (0.0-3.0) % Gran # (1.4-6.5) Lymph # (Auto) (1.2-3.4) [place] # (Auto) (0.1-0.6) Eos # (Auto) (0.0-0.7) Baso # (Auto) (0.0-2.0) K/mm3 pCO2 (35-45) mm/Hg pO2 (80-100) mm/Hg HCO3 (21-28) mmol/L ABG pH (7.35-7.45) ABG Total CO2 (22-28) mmol.L ABG O2 Saturation (95-98) % ABG O2 Content (15-23) ML/dl ABG Base Excess (-2.0-3.0) mmol/L ABG Hemoglobin (11.7-17.4) g/dL ABG Carboxyhemoglobin (0.5-1.5) % POC ABG HHb (Measured) (0-5) % ABG Methemoglobin (0.0-3.0) % ABG O2 Capacity (16-24) mL/dl Hgb O2 Saturation (95.0-98.0) % FiO2 % Sodium 147 (132-148) mmol/L Potassium 3.4 L (3.6-5.0) mmol/L Chloride 118 H (98-107) mmol/L Carbon Dioxide 17 L (21-33) mmol/L Anion Gap 16 (10-20) BUN 25 H (7-21) mg/dL Creatinine 1.6 H (0.7-1.2) mg/dl Est GFR ( Amer) 40 Est GFR (Non-Af Amer) 33 POC Glucose (mg/dL) 195 H 169 H (65-110) mg/dL Random Glucose 253 H (70-110) mg/dL Calcium 8.5 (8.4-10.5) mg/dL Total Bilirubin 0.3 (0.2-1.3) mg/dL AST 27 (14-36) U/L ALT 29 (7-56) U/L Alkaline Phosphatase 244 H (38-126) U/L Total Protein 5.3 L (5.8-8.3) g/dL Albumin 2.5 L (3.0-4.8) g/dL Globulin 2.7 gm/dL Albumin/Globulin Ratio 0.9 L (1.1-1.8) 05/24/18 05/24/18 Range/Units 11:10 07:11 WBC (4.5-11.0) 10^3/uL RBC (3.5-6.1) 10^6/uL Hgb (12.0-16.0) g/dL Hct (36.0-48.0) % MCV (80.0-105.0) fl MCH (25.0-35.0) pg MCHC (31.0-37.0) g/dl RDW (11.5-14.5) % Plt Count (120.0-450.0) 10^3/uL MPV (7.0-11.0) fl Gran % (50.0-68.0) % Lymph % (Auto) (22.0-35.0) % [place] % (Auto) (1.0-6.0) % Eos % (Auto) (1.5-5.0) % Baso % (Auto) (0.0-3.0) % Gran # (1.4-6.5) Lymph # (Auto) (1.2-3.4) [place] # (Auto) (0.1-0.6) Eos # (Auto) (0.0-0.7) Baso # (Auto) (0.0-2.0) K/mm3 pCO2 (35-45) mm/Hg pO2 (80-100) mm/Hg HCO3 (21-28) mmol/L ABG pH (7.35-7.45) ABG Total CO2 (22-28) mmol.L ABG O2 Saturation (95-98) % ABG O2 Content (15-23) ML/dl ABG Base Excess (-2.0-3.0) mmol/L ABG Hemoglobin (11.7-17.4) g/dL ABG Carboxyhemoglobin (0.5-1.5) % POC ABG HHb (Measured) (0-5) % ABG Methemoglobin (0.0-3.0) % ABG O2 Capacity (16-24) mL/dl Hgb O2 Saturation (95.0-98.0) % FiO2 % Sodium (132-148) mmol/L Potassium (3.6-5.0) mmol/L Chloride (98-107) mmol/L Carbon Dioxide (21-33) mmol/L Anion Gap (10-20) BUN (7-21) mg/dL Creatinine (0.7-1.2) mg/dl Est GFR ( Amer) Est GFR (Non-Af Amer) POC Glucose (mg/dL) 162 H 155 H (65-110) mg/dL Random Glucose (70-110) mg/dL Calcium (8.4-10.5) mg/dL Total Bilirubin (0.2-1.3) mg/dL AST (14-36) U/L ALT (7-56) U/L Alkaline Phosphatase (38-126) U/L Total Protein (5.8-8.3) g/dL Albumin (3.0-4.8) g/dL Globulin gm/dL Albumin/Globulin Ratio (1.1-1.8) Laboratory Results - last 24 hr 05/24/18 05/24/18 05/24/18 07:11 11:10 15:59 WBC RBC Hgb Hct MCV MCH MCHC RDW Plt Count MPV Gran % Lymph % (Auto) [place] % (Auto) Eos % (Auto) Baso % (Auto) Gran # Lymph # (Auto) [place] # (Auto) Eos # (Auto) Baso # (Auto) pCO2 pO2 HCO3 ABG pH ABG Total CO2 ABG O2 Saturation ABG O2 Content ABG Base Excess ABG Hemoglobin ABG Carboxyhemoglobin POC ABG HHb (Measured) ABG Methemoglobin ABG O2 Capacity Hgb O2 Saturation FiO2 Sodium Potassium Chloride Carbon Dioxide Anion Gap BUN Creatinine Est GFR ( Amer) Est GFR (Non-Af Amer) POC Glucose (mg/dL) 155 H 162 H 169 H Random Glucose Calcium Total Bilirubin AST ALT Alkaline Phosphatase Total Protein Albumin Globulin Albumin/Globulin Ratio 05/24/18 05/25/18 05/25/18 21:32 05:00 06:40 WBC 8.2 D RBC 3.73 Hgb 9.3 L Hct 30.7 L MCV 82.3 MCH 24.9 L MCHC 30.3 L RDW 16.3 H Plt Count 275 MPV 9.8 Gran % 79.9 H Lymph % (Auto) 11.2 L [place] % (Auto) 7.8 H Eos % (Auto) 0.9 L Baso % (Auto) 0.2 Gran # 6.58 H Lymph # (Auto) 0.9 L [place] # (Auto) 0.6 Eos # (Auto) 0.1 Baso # (Auto) 0.02 pCO2 pO2 HCO3 ABG pH ABG Total CO2 ABG O2 Saturation ABG O2 Content ABG Base Excess ABG Hemoglobin ABG Carboxyhemoglobin POC ABG HHb (Measured) ABG Methemoglobin ABG O2 Capacity Hgb O2 Saturation FiO2 Sodium 147 Potassium 3.4 L Chloride 118 H Carbon Dioxide 17 L Anion Gap 16 BUN 25 H Creatinine 1.6 H Est GFR ( Amer) 40 Est GFR (Non-Af Amer) 33 POC Glucose (mg/dL) 195 H Random Glucose 253 H Calcium 8.5 Total Bilirubin 0.3 AST 27 ALT 29 Alkaline Phosphatase 244 H Total Protein 5.3 L Albumin 2.5 L Globulin 2.7 Albumin/Globulin Ratio 0.9 L 05/25/18 05/25/18 05/25/18 07:34 11:46 16:11 WBC RBC Hgb Hct MCV MCH MCHC RDW Plt Count MPV Gran % Lymph % (Auto) [place] % (Auto) Eos % (Auto) Baso % (Auto) Gran # Lymph # (Auto) [place] # (Auto) Eos # (Auto) Baso # (Auto) pCO2 pO2 HCO3 ABG pH ABG Total CO2 ABG O2 Saturation ABG O2 Content ABG Base Excess ABG Hemoglobin ABG Carboxyhemoglobin POC ABG HHb (Measured) ABG Methemoglobin ABG O2 Capacity Hgb O2 Saturation FiO2 Sodium Potassium Chloride Carbon Dioxide Anion Gap BUN Creatinine Est GFR ( Amer) Est GFR (Non-Af Amer) POC Glucose (mg/dL) 250 H 297 H 311 H Random Glucose Calcium Total Bilirubin AST ALT Alkaline Phosphatase Total Protein Albumin Globulin Albumin/Globulin Ratio 05/25/18 05/26/18 22:03 05:15 WBC RBC Hgb Hct MCV MCH MCHC RDW Plt Count MPV Gran % Lymph % (Auto) [place] % (Auto) Eos % (Auto) Baso % (Auto) Gran # Lymph # (Auto) [place] # (Auto) Eos # (Auto) Baso # (Auto) pCO2 37 pO2 73.0 L HCO3 22.4 ABG pH 7.39 ABG Total CO2 23.5 ABG O2 Saturation 95.7 ABG O2 Content 12.5 L ABG Base Excess -2.3 L ABG Hemoglobin 9.3 L ABG Carboxyhemoglobin 0.8 POC ABG HHb (Measured) 4.3 ABG Methemoglobin 0.3 ABG O2 Capacity 13.1 L Hgb O2 Saturation 94.6 L FiO2 40.0 Sodium Potassium Chloride Carbon Dioxide Anion Gap BUN Creatinine Est GFR ( Amer) Est GFR (Non-Af Amer) POC Glucose (mg/dL) 367 H Random Glucose Calcium Total Bilirubin AST ALT Alkaline Phosphatase Total Protein Albumin Globulin Albumin/Globulin Ratio Radiology Impressions: Radiology Impressions Chest X-Ray 05/25/18 06:00 IMPRESSION: No significant interval change in bilateral perihilar/medial basilar infiltrates. No pulmonary vascular congestion. Fingerstick Blood Sugar Results: 367 Critical Care Progress Note - Nutrition Nutrition: Nutrition Category Date Time Status NPO Diet [DIET] Diets 05/19/18 Dinner Ordered <Delfin Esqueda - Last Filed: 05/26/18 17:47> CCU Objective - Vital Signs / Intake & Output Vital Signs (Last 4 hours): Vital Signs Pulse BP 05/26/18 17:03 96 H 135/99 H Intake and Output (Last 8hrs): Intake & Output 05/26/18 05/26/18 05/26/18 06:59 14:59 22:59 Intake Total 1600 Output Total 500 Balance 1100 Weight 145 lb 3.2 oz Intake: IV 800 Right Internal Jugular 300 keppra 500 Oral 800 Output: Urine 500 Urethral (Wan) 500 Other: # Bowel Movements 1 - Medications Active Medications: Active Medications Generic Name Dose Route Start Last Admin Trade Name Freq PRN Reason Stop Dose Admin Amlodipine Besylate 10 mg 05/24/18 11:13 05/26/18 10:24 Norvasc PO 10 mg DAILY PATTI Administration Clonidine HCl 1 patch 05/24/18 11:15 Catapres-Tts2 0.2 Mg/24 Hr TD Q7D@0700 PATTI Dicyclomine HCl 10 mg 05/19/18 18:00 05/26/18 17:04 Bentyl PO 10 mg TID PATTI Administration Ergocalciferol 1 cap 05/22/18 07:15 05/22/18 08:19 Drisdol 50,000 Intl Units Cap PO 1 cap Q7D PATTI Administration Gabapentin 300 mg 05/19/18 18:00 05/26/18 17:03 Neurontin PO 300 mg BID PATTI Administration Protocol Piperacillin Sod/Tazobactam Sod 100 mls @ 25 mls/hr 05/20/18 07:00 05/26/18 13:54 Zosyn 3.375 In Ns 100ml IVPB 05/27/18 07:01 25 mls/hr Q8 PATTI Administration Protocol Midazolam 100 mg/100ml in NS 100 mg in 100 mls @ 7 mls/hr 05/20/18 08:31 05/22/18 16:05 Midazolam 100 Mg/100ml In Ns IV 7 mg/hr .[id number] PRN 7 mls/hr Seizure activity Administration Protocol 7 MG/HR Propofol 1,000 mg in 100 mls @ 1.796 mls/hr 05/20/18 10:44 05/22/18 09:11 Diprivan IV 5 mcg/kg/min .Q24H PRN 1.796 mls/hr TITRATE PER MD ORDER Administration Protocol 5 MCG/KG/MIN NOREPINEPHRINE BIT/0.9 % NACL 4 mg in 250 mls @ 15 mls/hr 05/21/18 12:53 Levophed 4 Mg/ 250 Ml Ns Premixed IV .[id number] PRN TITRATE PER MD ORDER Protocol 4 MCG/MIN Levetiracetam 750 mg/ Sodium 107.5 mls @ 322.5 mls/hr 05/22/18 18:00 05/26/18 17:02 Chloride IV 322.5 mls/hr Q12H PATTI Administration Insulin Detemir 16 unit 05/26/18 22:00 Levemir SC Q12H PATTI Insulin Human Lispro 0 units 05/20/18 07:30 05/26/18 17:02 Humalog Low SC Not Given ACHS PATTI Protocol Levalbuterol HCl 1.25 mg 05/20/18 08:00 05/26/18 13:09 Xopenex IH 1.25 mg [id number] PATTI Administration Losartan Potassium 100 mg 05/24/18 18:00 05/24/18 17:13 Cozaar PO 100 mg QPM PATTI Administration Metoclopramide HCl 5 mg 05/19/18 22:00 05/25/18 21:04 Reglan PO 5 mg HS PATTI Administration Metoprolol Tartrate 25 mg 05/26/18 18:00 05/26/18 17:03 Lopressor PO 25 mg BID PATTI Administration Ondansetron HCl 4 mg 05/19/18 22:00 05/26/18 05:39 Zofran Tab PO 4 mg Q8 PATTI Administration Pantoprazole Sodium 40 mg 05/21/18 10:00 05/26/18 10:24 Protonix Inj IVP 40 mg DAILY PATTI Administration Sodium Bicarbonate 650 mg 05/26/18 18:00 05/26/18 17:04 Sodium Bicarbonate Tab NG 650 mg BID PATTI Administration Venlafaxine HCl 75 mg 05/20/18 10:00 05/26/18 10:16 Effexor Xr PO Not Given DAILY PATTI - Patient Studies Lab Studies: Lab Studies 05/26/18 05/26/18 05/26/18 Range/Units 11:23 07:15 06:30 WBC (4.5-11.0) 10^3/uL RBC (3.5-6.1) 10^6/uL Hgb (12.0-16.0) g/dL Hct (36.0-48.0) % MCV (80.0-105.0) fl MCH (25.0-35.0) pg MCHC (31.0-37.0) g/dl RDW (11.5-14.5) % Plt Count (120.0-450.0) 10^3/uL MPV (7.0-11.0) fl Gran % (50.0-68.0) % Lymph % (Auto) (22.0-35.0) % [place] % (Auto) (1.0-6.0) % Eos % (Auto) (1.5-5.0) % Baso % (Auto) (0.0-3.0) % Gran # (1.4-6.5) Lymph # (Auto) (1.2-3.4) [place] # (Auto) (0.1-0.6) Eos # (Auto) (0.0-0.7) Baso # (Auto) (0.0-2.0) K/mm3 pCO2 (35-45) mm/Hg pO2 (80-100) mm/Hg HCO3 (21-28) mmol/L ABG pH (7.35-7.45) ABG Total CO2 (22-28) mmol.L ABG O2 Saturation (95-98) % ABG O2 Content (15-23) ML/dl ABG Base Excess (-2.0-3.0) mmol/L ABG Hemoglobin (11.7-17.4) g/dL ABG Carboxyhemoglobin (0.5-1.5) % POC ABG HHb (Measured) (0-5) % ABG Methemoglobin (0.0-3.0) % ABG O2 Capacity (16-24) mL/dl Hgb O2 Saturation (95.0-98.0) % FiO2 % Sodium 148 (132-148) mmol/L Potassium 3.6 (3.6-5.0) mmol/L Chloride 121 H (98-107) mmol/L Carbon Dioxide 26 (21-33) mmol/L Anion Gap 5 L (10-20) BUN 26 H (7-21) mg/dL Creatinine 1.3 H (0.7-1.2) mg/dl Est GFR ( Amer) 51 Est GFR (Non-Af Amer) 42 POC Glucose (mg/dL) 289 H 221 H (65-110) mg/dL Random Glucose 251 H (70-110) mg/dL Calcium 8.3 L (8.4-10.5) mg/dL Total Bilirubin 0.1 L (0.2-1.3) mg/dL AST 16 (14-36) U/L ALT 24 (7-56) U/L Alkaline Phosphatase 196 H (38-126) U/L Total Protein 5.2 L (5.8-8.3) g/dL Albumin 2.4 L (3.0-4.8) g/dL Globulin 2.8 gm/dL Albumin/Globulin Ratio 0.8 L (1.1-1.8) Crossmatch 05/26/18 05/26/18 05/25/18 Range/Units 06:30 05:15 22:03 WBC 10.0 D (4.5-11.0) 10^3/uL RBC 3.43 L (3.5-6.1) 10^6/uL Hgb 8.7 L (12.0-16.0) g/dL Hct 28.1 L (36.0-48.0) % MCV 81.9 (80.0-105.0) fl MCH 25.4 (25.0-35.0) pg MCHC 31.0 (31.0-37.0) g/dl RDW 16.4 H (11.5-14.5) % Plt Count 267 (120.0-450.0) 10^3/uL MPV 9.5 (7.0-11.0) fl Gran % 84.6 H (50.0-68.0) % Lymph % (Auto) 7.4 L (22.0-35.0) % [place] % (Auto) 6.7 H (1.0-6.0) % Eos % (Auto) 1.1 L (1.5-5.0) % Baso % (Auto) 0.2 (0.0-3.0) % Gran # 8.50 H (1.4-6.5) Lymph # (Auto) 0.7 L (1.2-3.4) [place] # (Auto) 0.7 H (0.1-0.6) Eos # (Auto) 0.1 (0.0-0.7) Baso # (Auto) 0.02 (0.0-2.0) K/mm3 pCO2 37 (35-45) mm/Hg pO2 73.0 L (80-100) mm/Hg HCO3 22.4 (21-28) mmol/L ABG pH 7.39 (7.35-7.45) ABG Total CO2 23.5 (22-28) mmol.L ABG O2 Saturation 95.7 (95-98) % ABG O2 Content 12.5 L (15-23) ML/dl ABG Base Excess -2.3 L (-2.0-3.0) mmol/L ABG Hemoglobin 9.3 L (11.7-17.4) g/dL ABG Carboxyhemoglobin 0.8 (0.5-1.5) % POC ABG HHb (Measured) 4.3 (0-5) % ABG Methemoglobin 0.3 (0.0-3.0) % ABG O2 Capacity 13.1 L (16-24) mL/dl Hgb O2 Saturation 94.6 L (95.0-98.0) % FiO2 40.0 % Sodium (132-148) mmol/L Potassium (3.6-5.0) mmol/L Chloride (98-107) mmol/L Carbon Dioxide (21-33) mmol/L Anion Gap (10-20) BUN (7-21) mg/dL Creatinine (0.7-1.2) mg/dl Est GFR ( Amer) Est GFR (Non-Af Amer) POC Glucose (mg/dL) 367 H (65-110) mg/dL Random Glucose (70-110) mg/dL Calcium (8.4-10.5) mg/dL Total Bilirubin (0.2-1.3) mg/dL AST (14-36) U/L ALT (7-56) U/L Alkaline Phosphatase (38-126) U/L Total Protein (5.8-8.3) g/dL Albumin (3.0-4.8) g/dL Globulin gm/dL Albumin/Globulin Ratio (1.1-1.8) Crossmatch 05/23/18 Range/Units 09:42 WBC (4.5-11.0) 10^3/uL RBC (3.5-6.1) 10^6/uL Hgb (12.0-16.0) g/dL Hct (36.0-48.0) % MCV (80.0-105.0) fl MCH (25.0-35.0) pg MCHC (31.0-37.0) g/dl RDW (11.5-14.5) % Plt Count (120.0-450.0) 10^3/uL MPV (7.0-11.0) fl Gran % (50.0-68.0) % Lymph % (Auto) (22.0-35.0) % [place] % (Auto) (1.0-6.0) % Eos % (Auto) (1.5-5.0) % Baso % (Auto) (0.0-3.0) % Gran # (1.4-6.5) Lymph # (Auto) (1.2-3.4) [place] # (Auto) (0.1-0.6) Eos # (Auto) (0.0-0.7) Baso # (Auto) (0.0-2.0) K/mm3 pCO2 (35-45) mm/Hg pO2 (80-100) mm/Hg HCO3 (21-28) mmol/L ABG pH (7.35-7.45) ABG Total CO2 (22-28) mmol.L ABG O2 Saturation (95-98) % ABG O2 Content (15-23) ML/dl ABG Base Excess (-2.0-3.0) mmol/L ABG Hemoglobin (11.7-17.4) g/dL ABG Carboxyhemoglobin (0.5-1.5) % POC ABG HHb (Measured) (0-5) % ABG Methemoglobin (0.0-3.0) % ABG O2 Capacity (16-24) mL/dl Hgb O2 Saturation (95.0-98.0) % FiO2 % Sodium (132-148) mmol/L Potassium (3.6-5.0) mmol/L Chloride (98-107) mmol/L Carbon Dioxide (21-33) mmol/L Anion Gap (10-20) BUN (7-21) mg/dL Creatinine (0.7-1.2) mg/dl Est GFR ( Amer) Est GFR (Non-Af Amer) POC Glucose (mg/dL) (65-110) mg/dL Random Glucose (70-110) mg/dL Calcium (8.4-10.5) mg/dL Total Bilirubin (0.2-1.3) mg/dL AST (14-36) U/L ALT (7-56) U/L Alkaline Phosphatase (38-126) U/L Total Protein (5.8-8.3) g/dL Albumin (3.0-4.8) g/dL Globulin gm/dL Albumin/Globulin Ratio (1.1-1.8) Crossmatch See Detail Laboratory Results - last 24 hr 05/23/18 05/25/18 05/26/18 09:42 22:03 05:15 WBC RBC Hgb Hct MCV MCH MCHC RDW Plt Count MPV Gran % Lymph % (Auto) [place] % (Auto) Eos % (Auto) Baso % (Auto) Gran # Lymph # (Auto) [place] # (Auto) Eos # (Auto) Baso # (Auto) pCO2 37 pO2 73.0 L HCO3 22.4 ABG pH 7.39 ABG Total CO2 23.5 ABG O2 Saturation 95.7 ABG O2 Content 12.5 L ABG Base Excess -2.3 L ABG Hemoglobin 9.3 L ABG Carboxyhemoglobin 0.8 POC ABG HHb (Measured) 4.3 ABG Methemoglobin 0.3 ABG O2 Capacity 13.1 L Hgb O2 Saturation 94.6 L FiO2 40.0 Sodium Potassium Chloride Carbon Dioxide Anion Gap BUN Creatinine Est GFR ( Amer) Est GFR (Non-Af Amer) POC Glucose (mg/dL) 367 H Random Glucose Calcium Total Bilirubin AST ALT Alkaline Phosphatase Total Protein Albumin Globulin Albumin/Globulin Ratio Crossmatch See Detail 05/26/18 05/26/18 05/26/18 06:30 06:30 07:15 WBC 10.0 D RBC 3.43 L Hgb 8.7 L Hct 28.1 L MCV 81.9 MCH 25.4 MCHC 31.0 RDW 16.4 H Plt Count 267 MPV 9.5 Gran % 84.6 H Lymph % (Auto) 7.4 L [place] % (Auto) 6.7 H Eos % (Auto) 1.1 L Baso % (Auto) 0.2 Gran # 8.50 H Lymph # (Auto) 0.7 L [place] # (Auto) 0.7 H Eos # (Auto) 0.1 Baso # (Auto) 0.02 pCO2 pO2 HCO3 ABG pH ABG Total CO2 ABG O2 Saturation ABG O2 Content ABG Base Excess ABG Hemoglobin ABG Carboxyhemoglobin POC ABG HHb (Measured) ABG Methemoglobin ABG O2 Capacity Hgb O2 Saturation FiO2 Sodium 148 Potassium 3.6 Chloride 121 H Carbon Dioxide 26 Anion Gap 5 L BUN 26 H Creatinine 1.3 H Est GFR ( Amer) 51 Est GFR (Non-Af Amer) 42 POC Glucose (mg/dL) 221 H Random Glucose 251 H Calcium 8.3 L Total Bilirubin 0.1 L AST 16 ALT 24 Alkaline Phosphatase 196 H Total Protein 5.2 L Albumin 2.4 L Globulin 2.8 Albumin/Globulin Ratio 0.8 L Crossmatch 05/26/18 11:23 WBC RBC Hgb Hct MCV MCH MCHC RDW Plt Count MPV Gran % Lymph % (Auto) [place] % (Auto) Eos % (Auto) Baso % (Auto) Gran # Lymph # (Auto) [place] # (Auto) Eos # (Auto) Baso # (Auto) pCO2 pO2 HCO3 ABG pH ABG Total CO2 ABG O2 Saturation ABG O2 Content ABG Base Excess ABG Hemoglobin ABG Carboxyhemoglobin POC ABG HHb (Measured) ABG Methemoglobin ABG O2 Capacity Hgb O2 Saturation FiO2 Sodium Potassium Chloride Carbon Dioxide Anion Gap BUN Creatinine Est GFR ( Amer) Est GFR (Non-Af Amer) POC Glucose (mg/dL) 289 H Random Glucose Calcium Total Bilirubin AST ALT Alkaline Phosphatase Total Protein Albumin Globulin Albumin/Globulin Ratio Crossmatch Radiology Impressions: Radiology Impressions Chest X-Ray 05/26/18 06:00 IMPRESSION: There is a right-sided perihilar infiltrate unchanged. The left-sided infiltrate has improved. Central lines and tubes unchanged Critical Care Progress Note - Nutrition Nutrition: Nutrition Category Date Time Status NPO Diet [DIET] Diets 05/19/18 Dinner Ordered Attending/Attestation - Attestation I have personally seen and examined this patient.: Yes I have fully participated in the care of the patient.: Yes I have reviewed all pertinent clinical information: Yes Notes (Text): 05/26/18 17:[address] Esqueda note
[2018-05-26 07:00] LABS: BASO # 0.02 K/mm3 (0.0-2.0); BASO % 0.2 % (0.0-3.0); EOS # 0.1 (0.0-0.7); EOS % 1.1 % (1.5-5.0); GRAN # 8.5 (1.4-6.5); GRAN % 84.6 % (50.0-68.0); HEMOGLOBIN 8.7 g/dL (12.0-16.0); LYMPH # 0.7 (1.2-3.4); LYMPH % 7.4 % (22.0-35.0); MEAN CELL VOLUME 81.9 fl (80.0-105.0); MEAN CORPUSCULAR HEMOGLOBIN 25.4 pg (25.0-35.0); MEAN PLATELET VOLUME 9.5 fl (7.0-11.0); MONO # 0.7 (0.1-0.6); MONO % 6.7 % (1.0-6.0); RBC 3.43 10^6/uL (3.5-6.1); RED CELL DISTRIBUTION WIDTH 16.4 % (11.5-14.5)
[2018-05-26 07:29] LABS: ALB/GLOB RATIO 0.8 (1.1-1.8); ALBUMIN 2.4 g/dL (3.0-4.8); CALCIUM 8.3 mg/dL (8.4-10.5)
--- NOTE | 2018-05-26 08:37 | PN ---
DATE: 05/26/2018 SUBJECTIVE: The patient is seen and examined at bedside. She is comfortable. She is not responsive to touch and verbal commands. However, withdrawing to pain. She tolerated pressure support 5/5 with FiO2 40% throughout the night. Her end-tidal CO2 on the monitor is 37, heart rate is 84, oxygen saturation 96%, blood pressure 142/69, respiratory rate 17. Rapid shallow breathing index 30. The patient is not on any IV fluids; however, tolerates enteral nutrition well at 30 mL/hour. OBJECTIVE: ENT: Atraumatic. Intubated. LUNGS: Few crackles bilaterally. HEART: Regular rate and rhythm. S1, S2 distant. ABDOMEN: Soft, nontender, nondistended. MUSCULOSKELETAL: Trace bilateral pedal and ankle edema. NEURO: The patient is nonresponsive to verbal touch stimuli and was not observed moving upper or lower extremities. SKIN: Moist. PSYCH: The patient was not responsive to verbal or touch stimuli. LABORATORY DATA Sodium 148, potassium 3.6, chloride 121, carbon dioxide 26, BUN 26, creatinine 1.3, glucose 251. AST 16, ALT 24, total bilirubin 0.1, albumin 2.4. WBC 10, hemoglobin 8.7, platelet count 267. MEDICATIONS: Norvasc, clonidine, Bentyl, vitamin D, Neurontin, Levemir, regular insulin sliding scale, low protocol Xopenex every 6 hours, Keppra, Reglan, Zofran (on hold), Protonix, Effexor, and Zosyn. ASSESSMENT AND PLAN: This 57-year-old lady who presented with status epilepticus complicated by aspiration pneumonia/pneumonitis, requiring intubation to protect airways. Repeated EEG was done, off of benzodiazepines and appears not to have seizures on it. The patient continued to be on Keppra 750 mg IV every 12 hours. We are waiting for her to wake up. Meanwhile, brain MRI showed PRES syndrome few days ago. The patient has been intubated 6 days ago. NEURO: We are waiting for official report of EEG; however, on preliminary review no seizures identified. The patient is on Keppra 750 mg IV every 12 hours. No clinical seizures noted after initial presentation. PULMONARY: The patient tolerated pressure support 5/5 with FiO2 40% overnight. We are awaiting for mental status to improve to consider extubation. Meanwhile, we will continue with sedation vacation. Conservative fluid and oxygen management. Head of bed elevated more 35 degrees and oral hygiene. We will try to avoid tidal volume (she is on PS) above low/ intermediate range. CARDIOVASCULAR: The patient is hemodynamically stable. Echocardiogram revealed RVSP 70 which needs to be worked up once mental status improves. GI: The patient tolerates enteral nutrition well. We will increase free water flushes to 300 every 6 hours. RENAL: Creatinine is improving and now 1.3 down from 1.6. The patient does have hyperchloremia. Therefore, free water flushes were increased. I will try to avoid significantly positive fluid balance as the patient has some pulmonary edema and what appears to be at least moderate if not severe pulmonary hypertension. The patient tolerates oral route of hydration and nutrition. We will try to proceed with oral free water flushes rather than IV. Renal service is on board. We will try to avoid nephrotoxic medication and maintain euvolemia and euglycemia. We will maintain mean arterial pressure more than 65. ENDOCRINE: We will maintain blood glucose within 140-180 range according to night sugar trial. ID: The patient is afebrile and does not have leukocytosis. I am doubtful that the patient has ongoing infectious process. The patient is on antibiotics and ID service is following her as well. ccm time 40 min Delfin Esqueda MD MTDD
--- NOTE | 2018-05-26 09:47 | PCM.VEEG ---
Video EEG - Procedure Start Date: 05/26/18 Start Time: 15:35 End Date: 05/27/18 End Time: 07:50 Technical Summary: DATA ACQUISITION: This was a multichannel inpatient video-EEG, a minimum of 22 channels were uti lized, performed in accordance with recommendations specified by the [place] [employer] (Chaya Guardado et al. ACNS Guideline 1: Minimum Technical Requirements for Performing Clinical Electroencephalography. Journal of Clinical Neurophysiology 2016;33:303-7). The 10-20 electrode placement system was utilized in accordance with guidelines detailed by the International Federation of Clinical Neurophysiology (Josue Collazo et al. The Ten-Twenty Electrode System of the International Federation. Recommendations for the Practice of Clinical Neurophysiology: Guidelines of the International Federation of Clinical Physiology 1999; EEG Suppl. 52.). DATA REVIEW / SPIKE DETECTION / DIGITAL ANALYSIS: The entire EEG was scanned and reviewed. Synchronized audio and video recording were reviewed at the time of each alarm and whenever an abnormality or suspicious activity was noted. The entire recording was analyzed utilizing an automated digital spike and seizure analysis program and all automatic spike and seizure detections were manually reviewed. A compressed spectral array was displayed and reviewed alongside the raw EEG tracings. In addition, further analysis of the EEG was performed when abnormalities were identified, including montage changes, dipole source localization, and frequency band identification. This study was attended 24 hours per day. - Interpretation Description of the study: Indication; Alter mental status, status epilepticus EEG Finding during wakefulness: During the entire study was not discernible awake EEG background, during this time the EEG showed diffuse bilateral attenuation with frequencies in the 4 to 5 Hz. When she was stimulated there was minimal reactivity of the EEG with frequencies going up to 7 Hz, which was poorly sustained. EEG Finding during sleep: Normal sleep architecture was not seen, . Interictal non-epileptiform abnormalities: Left temporal focal slowing Interictal epileptiform abnormalities: Frequent left temporal spikes and sharps maximally at F7, seen in isolation, with occasional right hemisphere field effect Ictal epileptiform abnormalities: No seizures - Impression Impression: This is an abnormal video EEG, monitoring study, due to the presence of: 1- Moderate background slowing/attenuation . 2- Left temporal interictal epileptifrom discharges 3- Left temporal slowing. No seizures Not in status epilepticus. 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 The findings are also in keeping with a moderate non specific diffuse disturbance of cortical activity. This is in keeping with a diffuse gerardo matter dysfunction. The findings do not suggest a specific etiology. Like on the previous study, in a patient with acute alter mental status, other etiologies are possible, like herpes encephalitis, this needs to be correlated clinically, and with CSF analysis as well as Brain MRI, if clinically warranted.
--- NOTE | 2018-05-26 09:49 | RAD ---
Date of service: 05/26/2018 HISTORY: f/u COMPARISON: 05/25/2018 FINDINGS: LUNGS: There is a right-sided perihilar infiltrate unchanged. The left-sided infiltrate has improved. Central lines and tubes unchanged PLEURA: No significant pleural effusion identified, no pneumothorax apparent. CARDIOVASCULAR: No aortic atherosclerotic calcification present. Normal cardiac size. No pulmonary vascular congestion. OSSEOUS STRUCTURES: No significant abnormalities. VISUALIZED UPPER ABDOMEN: Normal. OTHER FINDINGS: None. IMPRESSION: There is a right-sided perihilar infiltrate unchanged. The left-sided infiltrate has improved. Central lines and tubes unchanged
[2018-05-26] MEDS: Insulin Lispro (humaLOG) LOW Coverage SC SCH ×4 (10:15→22:26)
[2018-05-26] MEDS: Venlafaxine 75 mg ER Cap PO SCH (10:16)
[2018-05-26] MEDS ORDERED: Metoprolol 1 mg/ml Inj IVP STA (10:24)
[2018-05-26] MEDS: Insulin Detemir 100 units/ml Vial (Levemir) SC SCH ×2 (10:25→22:22)
[2018-05-26] MEDS ORDERED: Metoprolol 1 mg/ml Inj ONE (10:33)
--- NOTE | 2018-05-26 10:39 | PN ---
DATE: 05/26/2018 SUBJECTIVE: She is in the Intensive Care Unit. She is intubated, but breathing on her own. The neon technician feels that she has a chance of waking up because of the watershed and the press, which is theoretically reversible. There is talk about sending to an LTAC for further care and watching while she improves. MEDICATIONS: She is on Bentyl, Catapres, Cozaar, Diprivan, Drisdol, insulin, Levemir, Keppra, norepinephrine Neurontin, Norvasc, Protonix, Reglan, IV fluids, sodium bicarb, Xopenex, Zofran and Zosyn. OBJECTIVE: VITAL SIGNS: She has a 98.6 temperature, 83 pulse, 17 respiratory rate, 94% O2 sat, 142/72 blood pressure. HEENT: Head is atraumatic, normocephalic. She actually had an EEG on her head right now. HEART: Regular rate. LUNGS: Decreased breath sounds, but clear. ABDOMEN: Soft. EXTREMITIES: No edema. Mildly contracted. LABORATORY DATA: She has a 10 white count, 8.7 hemoglobin, 28.1 hematocrit with a 267 platelets. Sodium 148; potassium 3.6; chloride 121; BUN 26; creatinine 1.3, a little better. GFR is 42, sugar is 251, calcium is 8.3. Total bili is 0.1, AST is 16, ALT is 24, alk phos 196, total protein is 5.2. IMPRESSION AND PLAN: She is breathing on her own while intubated waiting for her to wake up. Continue with the aggressive medications and treatment. She is being seen by the neon technician, Endocrinology, Renal, Cardio, Neuro and she has a chance of waking up. I think she needs to have that chance. 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 Josafat Dent DO ANIVAL
--- NOTE | 2018-05-26 11:09 | PN ---
DATE: 05/26/2018 CARDIOLOGY FOLLOWUP SUBJECTIVE: The patient remains on a ventilator. OBJECTIVE: VITAL SIGNS: Blood pressure 144/77, heart rate went up to 120 and broke spontaneously consistent with an SVT. NECK: Negative JVD. LUNGS: Decreased breath sounds. HEART: Reveal S1, S2. EXTREMITIES: Without change. LABORATORY DATA: Hemoglobin is 8.7. Chemistries, BUN and creatinine 26 and 1.3, glucose is 251. IMPRESSION: 1. New-onset supraventricular tachycardia. 2. Respiratory failure. 3. Diabetes mellitus. 4. Gastroparesis. 5. Altered mental status. Given these findings, we will start the patient on beta-blockers to prevent another episode of SVT. Carter Farmer MD
--- NOTE | 2018-05-26 12:14 | CP.PCM.PN ---
Subjective - Date & Time of Evaluation Date of Evaluation: 05/26/18 Time of Evaluation: 11:00 - Subjective Subjective: Still on the ventilator, no fevers, not in distress but sedated. Objective - Vital Signs/Intake and Output Vital Signs (last 24 hours): Temp Pulse Resp BP Pulse Ox 97.7 F 89 18 153/81 H 100 05/25/18 04:00 05/25/18 07:35 05/25/18 07:35 05/25/18 09:35 05/25/18 07:35 Intake and Output: 05/25/18 05/25/18 06:59 18:59 Intake Total 560 Output Total 400 Balance 160 - Medications Medications: Current Medications Amlodipine Besylate (Norvasc) 10 mg PO DAILY [facility] Last Admin: 05/25/18 09:35 Dose: 10 mg Clonidine HCl (Catapres-Tts2 0.2 Mg/24 Hr) 1 patch TD Q7D@0700 PATTI Dicyclomine HCl (Bentyl) 10 mg PO TID [facility] Last Admin: 05/25/18 09:33 Dose: 10 mg Ergocalciferol (Drisdol 50,000 Intl Units Cap) 1 cap PO Q7D PATTI Last Admin: 05/22/18 08:19 Dose: 1 cap Gabapentin (Neurontin) 300 mg PO BID PATTI; Protocol Last Admin: 05/24/18 17:13 Dose: 300 mg Piperacillin Sod/Tazobactam Sod (Zosyn 3.375 In Ns 100ml) 100 mls @ 25 mls/hr IVPB Q8 PATTI; Protocol Stop: 05/27/18 07:01 Last Admin: 05/24/18 21:15 Dose: 25 mls/hr Midazolam 100 mg/100ml in NS (Midazolam 100 Mg/100ml In Ns) 100 mg in 100 mls @ 7 mls/hr IV .[id number] PRN; Protocol PRN Reason: Seizure activity Last Admin: 05/22/18 16:05 Dose: 7 mg/hr, 7 mls/hr Sodium Chloride (Sodium Chloride 0.9%) 1,000 mls @ 100 mls/hr IV .Q10H PATTI Last Admin: 05/24/18 01:58 Dose: 100 mls/hr Propofol (Diprivan) 1,000 mg in 100 mls @ 1.796 mls/hr IV .Q24H PRN; Protocol PRN Reason: TITRATE PER MD ORDER Last Admin: 05/22/18 09:11 Dose: 5 mcg/kg/min, 1.796 mls/hr NOREPINEPHRINE BIT/0.9 % NACL (Levophed 4 Mg/ 250 Ml Ns Premixed) 4 mg in 250 mls @ 15 mls/hr IV .[id number] PRN; Protocol PRN Reason: TITRATE PER MD ORDER Levetiracetam 750 mg/ Sodium (Chloride) 107.5 mls @ 322.5 mls/hr IV Q12H [facility] Last Admin: 05/25/18 05:22 Dose: 322.5 mls/hr Insulin Human Lispro (Humalog Low) 0 units SC ACHS [facility]; Protocol Last Admin: 05/25/18 08:21 Dose: Not Given Levalbuterol HCl (Xopenex) 1.25 mg IH [id number] [facility] Last Admin: 05/25/18 07:32 Dose: 1.25 mg Losartan Potassium (Cozaar) 100 mg PO QPM PATTI Last Admin: 05/24/18 17:13 Dose: 100 mg Metoclopramide HCl (Reglan) 5 mg PO HS [facility] Last Admin: 05/24/18 22:01 Dose: 5 mg Ondansetron HCl (Zofran Tab) 4 mg PO Q8 PATTI Last Admin: 05/24/18 22:01 Dose: 4 mg Pantoprazole Sodium (Protonix Inj) 40 mg IVP DAILY [facility] Last Admin: 05/25/18 09:35 Dose: 40 mg Venlafaxine HCl (Effexor Xr) 75 mg PO DAILY [facility] Last Admin: 05/25/18 09:32 Dose: Not Given - Labs Labs: 05/25/18 06:40 05/25/18 05:00 PT 14.3 SECONDS (9.4-12.5) H 05/21/18 10:15 INR 1.24 05/21/18 10:15 APTT 27.9 Seconds (25.1-36.5) 05/21/18 10:15 - Constitutional Appears: Chronically Ill, Other (intubated, sedated) - Head Exam Head Exam: NORMAL INSPECTION - ENT Exam Additional comments: ET tube in place - Respiratory Exam Respiratory Exam: Decreased Breath Sounds - Cardiovascular Exam Cardiovascular Exam: +S1, +S2 - GI/Abdominal Exam GI & Abdominal Exam: Soft. absent: Tenderness Assessment and Plan - Assessment and Plan (Free Text) Plan: Assessment systemic inflammatory response syndrome after seizure episode, with VDRF R/O sepsis due to aspiration pneumonia, on top of possible PRES or acute cerebral infarct history of HCAP history of sepsis due to right lower lobe HCAP, clinically improved and S/P treatment history of UTI with Klebsiella oxytoca gastroparesis HTN DM history of TIA history of esophageal ulcers S/P cholecystectomy S/P S/P hysterectomy S/P right foot partial amputation Plan continue Zosyn day 7 for at least 7 days and will continue to monitor clinically discussed with Dr. Dent follow up further Neurology evaluation and recommendations overall prognosis is poor
--- NOTE | 2018-05-26 14:20 | CP.PCM.PN ---
Subjective - Date & Time of Evaluation Date of Evaluation: 05/26/18 Time of Evaluation: 14:19 - Subjective Subjective: Nephrology Consultation Note: Assessment: critical Acute Kidney Injury (N17.9) likely hemodynamic injury due to BP fluctuations, sepsis with shock urine retention likely neurogenic bladder ? seizure with abnormal EEG/MRI--PRESS, aspiration pneumonia hyperglycemia with uncontrolled DM Anemia , hypokalemia hypomagnesemia hyponatremia Diabetic chronic Kidney Disease (E11.22) Hypertensive Chronic Kidney Disease (I12.9) Chronic Kidney Disease (N18.1) Stage with ? mg proteinuria (R80.9) likely due to DM Type 1 diabetes Mellitus (>20 years) complicated by neuropathy, retinopathy and gastroparesis neurogenic bladder hx of TIA, GERD, kidney stones, hx of hemicolectomy severe pulmonary HTN Plan No acute need for renal replacement therapy at this time. Patient not on ACEI/ARB due to ANTONIO. can resume losartan once stable renal funct ion. other BP meds added by team already. supplement lytes as needed. Monitor Input/Output, daily weights and renal function with basic metabolic panel supplement lytes started weekly vit D Neuro, ID following PRBC as needed for anemia. add iron and MVI once stable to take orally started sodium bicarb 650 mg bid via NG tube for metabolic acidosis. continue with free water through NG tube. Check urine spot protein/creatinine and albumin/creatinine ratio Check for 25-OH vitamin D, iPTH, phosphorus level Anemia work up with TSAT/Ferritin and b12/folate level Dose meds/antibiotics for reduced GFR. Avoid fleets enema/magnesium based laxatives. Avoid nephrotoxins/NSAIDs/ iodinated contrast (unless needed emergently) Glycemic control Further work up/management as per primary team Thanks for allowing me to participate in care of your patient. Will follow patient with you. Please call if any Qs. had d/w team Dr Onesimo Guerra Office: [phone] Chief Complaint; seizure reason for consult: ANTONIO HPI: Pt is a 57 F with hx of Type 1 diabetes Mellitus (>20 years) complicated by neuropathy, retinopathy, gastroparesis, neurogenic bladder hypertension (years), TIA, GERD, kidney stones, hx of hemicolectomy presented with complaints of seizures and aspiration pneumonia. renal consult for ANTONIO evaluation and management. Denies OTC/herbal meds or NSAIDs Noted recent iodinated contrast exposure on 05/16/18. Noted obvious episodes of low BP (SBP 90s), high BP (SBP 200+) ROS: unable to obtain. off pressors. BP better now Physical Examination: General Appearance: comfortable, in no acute respiratory distress, intubated Vitals reviewed and noted as below Head; Atraumatic, normocephalic ENT: orally intubated Neck; supple no lymphadenopathy, no thyromegaly or bruit Lungs: Normal respiratory rate/effort. Breath sounds bilateral equal and rt basal crackle Heart: Normal rate. s1s2 normal. No rub or gallop. Extremities: no edema. No varicose veins Neurological: Patient is waking up Skin: Warm and dry. Normal turgor. No rash. Palpitation: Normal elasticity for age Abdomen: Abdomen is soft. Bowel sounds +. There is no abdominal tenderness, no g uarding/rigidity no organomegaly Psych: deferred MSK: no joint tenderness or swelling. Digits and nails normal, no deformity : kidney not palpable has gay Labs/imaging reviewed. Past medical history, past surgical history, family history, social history, allergy reviewed and noted as below Family hx: no hx of CKD. Rest non-contributory work up: UA 3+ protein with moderate blood a1c 10.2% CT abdomen: normal adrenal. hx of b/l nephrolithiasis. distended urinary bladder Objective - Vital Signs/Intake and Output Vital Signs (last 24 hours): Temp Pulse Resp BP Pulse Ox 98.6 F 133 H 17 144/77 94 L 05/26/18 04:00 05/26/18 10:43 05/26/18 07:26 05/26/18 10:43 05/26/18 07:26 Intake and Output: 05/26/18 05/26/18 06:59 18:59 Intake Total 1600 Output Total 500 Balance 1100 - Medications Medications: Current Medications Amlodipine Besylate (Norvasc) 10 mg PO DAILY [facility] Last Admin: 05/26/18 10:24 Dose: 10 mg Clonidine HCl (Catapres-Tts2 0.2 Mg/24 Hr) 1 patch TD Q7D@0700 [facility] Dicyclomine HCl (Bentyl) 10 mg PO TID [facility] Last Admin: 05/26/18 13:54 Dose: 10 mg Ergocalciferol (Drisdol 50,000 Intl Units Cap) 1 cap PO Q7D [facility] Last Admin: 05/22/18 08:19 Dose: 1 cap Gabapentin (Neurontin) 300 mg PO BID [facility]; Protocol Last Admin: 05/26/18 10:24 Dose: 300 mg Piperacillin Sod/Tazobactam Sod (Zosyn 3.375 In Ns 100ml) 100 mls @ 25 mls/hr IVPB Q8 [facility]; Protocol Stop: 05/27/18 07:01 Last Admin: 05/26/18 13:54 Dose: 25 mls/hr Midazolam 100 mg/100ml in NS (Midazolam 100 Mg/100ml In Ns) 100 mg in 100 mls @ 7 mls/hr IV .[id number] PRN; Protocol PRN Reason: Seizure activity Last Admin: 05/22/18 16:05 Dose: 7 mg/hr, 7 mls/hr Propofol (Diprivan) 1,000 mg in 100 mls @ 1.796 mls/hr IV .Q24H PRN; Protocol PRN Reason: TITRATE PER MD ORDER Last Admin: 05/22/18 09:11 Dose: 5 mcg/kg/min, 1.796 mls/hr NOREPINEPHRINE BIT/0.9 % NACL (Levophed 4 Mg/ 250 Ml Ns Premixed) 4 mg in 250 mls @ 15 mls/hr IV .[id number] PRN; Protocol PRN Reason: TITRATE PER MD ORDER Levetiracetam 750 mg/ Sodium (Chloride) 107.5 mls @ 322.5 mls/hr IV Q12H [facility] Last Admin: 05/26/18 05:38 Dose: 322.5 mls/hr Insulin Detemir (Levemir) 10 unit SC Q12H [facility] Last Admin: 05/26/18 10:25 Dose: 10 u Insulin Human Lispro (Humalog Low) 0 units SC ACHS [facility]; Protocol Last Admin: 05/26/18 10:15 Dose: Not Given Levalbuterol HCl (Xopenex) 1.25 mg IH [id number] [facility] Last Admin: 05/26/18 13:09 Dose: 1.25 mg Losartan Potassium (Cozaar) 100 mg PO QPM [facility] Last Admin: 05/24/18 17:13 Dose: 100 mg Metoclopramide HCl (Reglan) 5 mg PO HS [facility] Last Admin: 05/25/18 21:04 Dose: 5 mg Metoprolol Tartrate (Lopressor) 25 mg PO BID [facility] Ondansetron HCl (Zofran Tab) 4 mg PO Q8 [facility] Last Admin: 05/26/18 05:39 Dose: 4 mg Pantoprazole Sodium (Protonix Inj) 40 mg IVP DAILY [facility] Last Admin: 05/26/18 10:24 Dose: 40 mg Sodium Bicarbonate (Sodium Bicarbonate Tab) 650 mg NG BID [facility] Venlafaxine HCl (Effexor Xr) 75 mg PO DAILY [facility] Last Admin: 05/26/18 10:16 Dose: Not Given - Labs Labs: 05/26/18 06:30 05/26/18 06:30 PT 14.3 SECONDS (9.4-12.5) H 05/21/18 10:15 INR 1.24 05/21/18 10:15 APTT 27.9 Seconds (25.1-36.5) 05/21/18 10:15
--- NOTE | 2018-05-26 19:09 | PN ---
DATE: 05/26/2018 ENDOCRINOLOGY FOLLOWUP NOTE LOCATION: ICU 128, room 1. SUBJECTIVE: This is a 57-year-old female with recent uncontrolled type 2 insulin-requiring diabetes, presenting here with some grand mal seizure event and has developed supervening acute respiratory failure with concomitant underlying pneumonitis and also now remains endotracheally intubated and sedated at this time as noted. Her glycemic levels were starting to fluctuate and glucose levels overnight have ranged from 297 to mg/dL. LABORATORY DATA: Her chemistry showed a BUN of 26, sodium 148, potassium 3.6, chloride 121, CO2 of 26, glucose 251 and creatinine 1.3. ASSESSMENT AND PLAN: So at this time, we will modify once again her baseline insulin and increase the Levemir to 16 units subcutaneous every 12 hours at 10 a.m. and 10 p.m. daily as given. We will titrate incremental as indicated to optimize metabolic control. We will also continue the low-dose correction scale using Humalog insulin as given for coverage of glucose only above hypoglycemia. We will obtain serial chemistries and supplement accordingly as needed. We will follow with you. Tita Coe MD
[2018-05-26] MEDS ORDERED: Metoprolol 1 mg/ml Inj IVP ONE (22:14)
[2018-05-27] MEDS: Piperacillin/Tazobact 3.375 gm 100 ML IVPB SCH (05:00)
[2018-05-27 06:13] LABS: ARTERIAL BLOOD GAS HCO3 24.3 mmol/L (21-28); ARTERIAL BLOOD GAS HEMOGLOBIN 7.6 g/dL (11.7-17.4); ARTERIAL BLOOD GAS O2 CAPACITY 10.9 mL/dl (16-24); ARTERIAL BLOOD GAS O2 CONTENT 10.7 ML/dl (15-23); ARTERIAL BLOOD GAS O2 SAT 97.9 % (95-98); ARTERIAL BLOOD GAS PCO2 35 mm/Hg (35-45); ARTERIAL BLOOD GAS PH 7.45 (7.35-7.45); ARTERIAL BLOOD GAS TCO2 25.4 mmol.L (22-28)
[2018-05-27 07:14] LABS: BASO # 0.01 K/mm3 (0.0-2.0); BASO % 0.1 % (0.0-3.0); EOS # 0.2 (0.0-0.7); EOS % 1.8 % (1.5-5.0); GRAN # 8.19 (1.4-6.5); GRAN % 84.1 % (50.0-68.0); HEMOGLOBIN 8.2 g/dL (12.0-16.0); LYMPH % 10.5 % (22.0-35.0); MEAN CELL VOLUME 82.2 fl (80.0-105.0); MEAN CORPUSCULAR HEMOGLOBIN 25.5 pg (25.0-35.0); MEAN CORPUSCULAR HGB CONC 31.1 g/dl (31.0-37.0); MEAN PLATELET VOLUME 9.1 fl (7.0-11.0); MONO # 0.3 (0.1-0.6); MONO % 3.5 % (1.0-6.0); RBC 3.21 10^6/uL (3.5-6.1); RED CELL DISTRIBUTION WIDTH 16.4 % (11.5-14.5); WHITE BLOOD COUNT 9.7 10^3/uL (4.5-11.0)
[2018-05-27] MEDS: Levalbuterol 1.25 MG/3 ML Inhal Soln UD IH SCH ×3 (07:14→20:49)
[2018-05-27 07:17] LABS: ALB/GLOB RATIO 0.8 (1.1-1.8); ALBUMIN 2.4 g/dL (3.0-4.8); ALT/SGPT 26 U/L (7-56); AST/SGOT 16 U/L (14-36); BLOOD UREA NITROGEN 20 mg/dL (7-21); CALCIUM 8.2 mg/dL (8.4-10.5); GFR NON-AFRICAN AMERICAN > 60
[2018-05-27] MEDS: Insulin Lispro (humaLOG) LOW Coverage SC SCH ×4 (08:26→22:18)
--- NOTE | 2018-05-27 08:29 | CP.PCM.PN ---
Subjective - Date & Time of Evaluation Date of Evaluation: 05/27/18 Time of Evaluation: 08:27 - Subjective Subjective: Nephrology Consultation Note: Assessment: critical Acute Kidney Injury (N17.9) likely hemodynamic injury due to BP fluctuations, sepsis with shock urine retention likely neurogenic bladder ? seizure with abnormal EEG/MRI--PRESS, aspiration pneumonia hyperglycemia with uncontrolled DM Anemia , hypokalemia hypomagnesemia hyponatremia Diabetic chronic Kidney Disease (E11.22) Hypertensive Chronic Kidney Disease (I12.9) Chronic Kidney Disease (N18.1) Stage with ? mg proteinuria (R80.9) likely due to DM Type 1 diabetes Mellitus (>20 years) complicated by neuropathy, retinopathy and gastroparesis neurogenic bladder hx of TIA, GERD, kidney stones, hx of hemicolectomy severe pulmonary HTN Plan No acute need for renal replacement therapy at this time. on arb supplement lytes as needed. Monitor Input/Output, daily weights and renal function with basic metabolic panel supplement lytes cont vit D Neuro, ID following PRBC as needed for anemia. add iron and MVI once stable to take orally will hold [id number] S: seen and examined , on eeg Physical Examination: General Appearance: comfortable, in no acute respiratory distress, intubated Vitals reviewed and noted as below Head; Atraumatic, normocephalic ENT: orally intubated Neck; supple no lymphadenopathy, no thyromegaly or bruit Lungs: Normal respiratory rate/effort. Breath sounds redcued b/l Heart: Normal rate. s1s2 normal. No rub or gallop. Extremities: no edema. No varicose veins Neurological: Patient is waking up Skin: Warm and dry. Normal turgor. No rash. Palpitation: Normal elasticity for age Abdomen: Abdomen is soft. Bowel sounds +. There is no abdominal tenderness, no guarding/rigidity no organomegaly Psych: deferred MSK: no joint tenderness or swelling. Digits and nails normal, no deformity : kidney not palpable has gay Labs/imaging reviewed. Past medical history, past surgical history, family history, social history, allergy reviewed and noted as below Family hx: no hx of CKD. Rest non-contributory Objective - Vital Signs/Intake and Output Vital Signs (last 24 hours): Temp Pulse Resp BP Pulse Ox 100.4 F H 103 H 18 160/89 H 99 05/27/18 02:20 05/27/18 02:20 05/27/18 07:18 05/27/18 02:00 05/27/18 07:18 - Medications Medications: Current Medications Amlodipine Besylate (Norvasc) 10 mg PO DAILY [facility] Last Admin: 05/26/18 10:24 Dose: 10 mg Clonidine HCl (Catapres-Tts2 0.2 Mg/24 Hr) 1 patch TD Q7D@0700 [facility] Dicyclomine HCl (Bentyl) 10 mg PO TID [facility] Last Admin: 05/26/18 17:04 Dose: 10 mg Ergocalciferol (Drisdol 50,000 Intl Units Cap) 1 cap PO Q7D [facility] Last Admin: 05/22/18 08:19 Dose: 1 cap Gabapentin (Neurontin) 300 mg PO BID [facility]; Protocol Last Admin: 05/26/18 17:03 Dose: 300 mg Midazolam 100 mg/100ml in NS (Midazolam 100 Mg/100ml In Ns) 100 mg in 100 mls @ 7 mls/hr IV .[id number] PRN; Protocol PRN Reason: Seizure activity Last Admin: 05/22/18 16:05 Dose: 7 mg/hr, 7 mls/hr Propofol (Diprivan) 1,000 mg in 100 mls @ 1.796 mls/hr IV .Q24H PRN; Protocol PRN Reason: TITRATE PER MD ORDER Last Admin: 05/22/18 09:11 Dose: 5 mcg/kg/min, 1.796 mls/hr NOREPINEPHRINE BIT/0.9 % NACL (Levophed 4 Mg/ 250 Ml Ns Premixed) 4 mg in 250 mls @ 15 mls/hr IV .[id number] PRN; Protocol PRN Reason: TITRATE PER MD ORDER Levetiracetam 750 mg/ Sodium (Chloride) 107.5 mls @ 322.5 mls/hr IV Q12H [facility] Last Admin: 05/27/18 05:00 Dose: 322.5 mls/hr Insulin Detemir (Levemir) 16 unit SC Q12H [facility] Last Admin: 05/26/18 22:22 Dose: 16 unit Insulin Human Lispro (Humalog Low) 0 units SC ACHS [facility]; Protocol Last Admin: 05/27/18 08:26 Dose: Not Given Levalbuterol HCl (Xopenex) 1.25 mg IH [id number] [facility] Last Admin: 05/27/18 07:14 Dose: 1.25 mg Losartan Potassium (Cozaar) 100 mg PO QPM [facility] Last Admin: 05/24/18 17:13 Dose: 100 mg Metoclopramide HCl (Reglan) 5 mg PO HS [facility] Last Admin: 05/26/18 21:40 Dose: 5 mg Metoprolol Tartrate (Lopressor) 25 mg PO BID [facility] Last Admin: 05/26/18 17:03 Dose: 25 mg Ondansetron HCl (Zofran Tab) 4 mg PO Q8 [facility] Last Admin: 05/26/18 05:39 Dose: 4 mg Pantoprazole Sodium (Protonix Inj) 40 mg IVP DAILY [facility] Last Admin: 05/26/18 10:24 Dose: 40 mg Sodium Bicarbonate (Sodium Bicarbonate Tab) 650 mg NG BID [facility] Last Admin: 05/26/18 17:04 Dose: 650 mg Venlafaxine HCl (Effexor Xr) 75 mg PO DAILY [facility] Last Admin: 05/26/18 10:16 Dose: Not Given - Labs Labs: 05/27/18 06:30 05/27/18 06:30 PT 14.3 SECONDS (9.4-12.5) H 05/21/18 10:15 INR 1.24 05/21/18 10:15 APTT 27.9 Seconds (25.1-36.5) 05/21/18 10:15
--- NOTE | 2018-05-27 08:35 | PN ---
DATE: 05/26/2018 PULMONARY PROGRESS NOTE SUBJECTIVE: The patient remains on mechanical ventilation, not responsive. There is no change in the overall mental status. PHYSICAL EXAMINATION: VITAL SIGNS: Remain stable. She is afebrile, heart rate 100, respiratory rate 20, blood pressure 180/90. HEENT: Normocephalic, atraumatic. NECK: Supple. No jugular venous distention, bruit or lymphadenopathy. CARDIOVASCULAR: Regular rhythm. S1 and S2 without murmur, gallop or rub. LUNGS: Global decrease in breath sounds. Minimal rhonchi throughout both lung aburto. No wheezing appreciated. ABDOMEN: Soft. Bowel sounds normoactive without change. EXTREMITIES: Reveal no clubbing or cyanosis. Partial amputation noted. No edema noted. SKIN: No rash or excoriation. NEUROLOGIC: No significant changes noted. The patient remains obtunded. LABORATORY DATA: Laboratory studies today reveals an x-ray that shows some mild improvement in the pulmonary infiltrate. There is a possible new infiltrate on the contralateral side however. Most recent arterial blood gas is being evaluated by the building services supervisor in the intensive care unit. CLINICAL IMPRESSION: 1. Respiratory failure. 2. Bilateral pneumonitis. 3. Encephalopathy. 4. Seizure disorder. 5. Chronic obstructive pulmonary disease. PLAN: Continue vigorous inhaled bronchodilators and corticosteroids. Continue vigorous treatment plans. There has been no significant neurologic improvement. We will defer to the Intensive Care physicians sitting in the intensive care unit. Await a.m. arterial blood gas and adjust ventilator accordingly. We will follow closely with you. The long-term prognosis remains guarded however and the team needs to discuss these problems with family members and further decisions must be made regarding the long-term care of this poor patient. Armando Freeman MD
[2018-05-27] MEDS ORDERED: Potassium Chloride 40 mEq/30 ml LIQ UD NG ONE (08:52)
--- NOTE | 2018-05-27 09:01 | CP.CCUPN ---
<Joao Carter - Last Filed: 05/27/18 10:56> CCU Subjective - Physician Review Subjective (Free Text): Joao Carter Internal Medicine Resident- Progress Note on Behalf of Critical Care Team Subjective: Patient seen and examined at bedside. Tmax 100.8 F. Spontaneously opens eyes and has spontaneous movements of her extremities. Further subjective data cannot be ascertained at this time. 12 point ROS cannot be ascertained at this time due to altered mental status Physical Examination: - Constitutional Appears: No Acute Distress - Head Exam Head Exam: ATRAUMATIC, NORMAL INSPECTION, NORMOCEPHALIC - Eye Exam Eye Exam: sluggish pupillary response bilaterally - ENT Exam ENT Exam: Mucous Membranes Dry, Normal Exam - Neck Exam Neck exam: Positive for: Normal Inspection - Respiratory Exam Respiratory Exam: diminished breath sounds bilateral lower lobes - Cardiovascular Exam Cardiovascular Exam: tachycardic, +S1, +S2. absent: Gallop, JVD, Rubs - GI/Abdominal Exam GI & Abdominal Exam: Normal Bowel Sounds, Soft. absent: Tenderness - Neurological Exam Neurological exam: Altered mental status, No longer opens eyes to verbal stimuli. Grimaces to painful stimuli. Spontaneous movements of her extremities - Skin Skin Exam: Dry, Intact, Normal Color, War Assessment and Plan: Patient is a 57 year old female with PMHx of HTN, uncontrolled DM2 complicated by retinopathy/gastroparesis, MDD, LAUREN, and TIA/CVA who was admitted for evaluation and treatment of seizure like activity. Patient suspected of experiencing aspiration. She was intubated/sedated due to an inability to protect her airway. Neurology AMS 2/2 Status Epilepticus - 05/19/18 CT Head without Contrast- No acute findings - 05/20/2019 CT Head without Contrast- No evidence of acute intracranial hemorrhage mass effect or midline shift. No significant interval changes noted - 05/22/2018 Brain MRI without Contrast- There are large areas of restricted diffusion/prolonged T2 signal changes within the the watershed zones of the occipito parietal and parietal and posterior frontal regions predominately involving the cortex.. Rule out watershed zone acute infarcts possibly related to prolonged seizures or hypertensive episode - 05/11/18 VEEG- moderate background slowing, left temporal interictal epileptiform discharges, left temporal slowing - continue on keppra 750mg IV q12 - discontinue VEEG - continue sedation vacation - hold versed drip 7mcg/hr & propofol @ 5mcg/kg/min - neurology consulted- appreciate recommendations- posterior reversible encephalopathy syndrome (PRES)- minimal improvement in mental status Cardiovascular: Hypertensive, Hx of HTN - continue clonidine 0.2mg/24 hours - continue amlodipine 10mg PO daily - start cardizem drip @ 5mcg/hr - hold losartan 100mg PO daily as per nephro due to ANTONIO - cardiology consulted (Dr. Farmer)- appreciate recommendation SVT - labetolol 20 mg IV stat - continue on lopressor 25mg PO BID with holding parameters - if HR returns to 120s start digoxin Resp: Respiratory Failure s/p Seizure Aspiration - intubated - continue weaning protocol via pressure support - head of bed at 35 degrees - conservative fluid management - continue oral hygiene - GI protonix and DVT prophylaxis- scds Aspiration Pneumonia, HAP, Severe Sepsis - 05/27/2018- CXR improving right sided perihilar infiltrate - abx changed to linezolid 600mg IV q12 and cefepime IV q8 - procalcitonin and rapid flu ordered and pending - infectious disease consulted (Dr. Sales)- appreciate recommendations GI Hx of Gastroparesis - NPO - continue reglan 5mg mg PO QS - continue bentyl 10mg PO TID - continue jevity at 10 goal 30 - GI consulted (Dr. Zambrano)- appreciate recommendations GI ppx: - protonix 40mg PO daily Endo Hx DM - increased levemir 16 units SC HS, BGs 130s - continue lispro insulin sliding scale low - fingersticks ACHS - maintain euglycemia - endocrinology consulted Dr Coe- appreciate recommendations Renal ANTONIO - likely pre-renal in nature, BUN creatinine- returned to normal range - monitor closely via BMP/Creatinine - nephrology consulted- appreciate recommendations Heme Anemia - microcytic - hemoglobin 8.7 from 9.3, downtrending - FOBT ordered and pending - serum iron- low, tibc- low, ferritin- wnl , folate- wnl, b12- elevated, anemia of chronic disease vs iron deficiency anemia - recommend starting iron supplements DVT Ppx - SCD Patient case discussed with and plan approved by attending physician, Dr. Marroquin. 05/27/18 11:11 CCU Objective - Vital Signs / Intake & Output Vital Signs (Last 4 hours): Vital Signs Resp Pulse Ox 05/27/18 07:18 18 99 Intake and Output (Last 8hrs): Intake & Output 05/26/18 05/27/18 05/27/18 22:59 06:59 14:59 Intake Total 1460 Output Total 525 Balance 935 Intake: IV 200 Right Internal Jugular 100 keppra 100 Tube Feeding 1260 Output: Urine 525 Urethral (Wan) 525 Other: # Bowel Movements 0 - Physical Exam Head: Positive for: Atraumatic, Normocephalic Pupils: Positive for: PERRL Extroacular Muscles: Positive for: EOMI Conjunctiva: Positive for: Normal Mouth: Positive for: Moist Mucous Membranes Neck: Positive for: Normal Range of Motion Respiratory/Chest: Positive for: Clear to Auscultation, Good Air Exchange. Negative for: Respiratory Distress, Accessory Muscle Use Cardiovascular: Positive for: Regular Rate and Rhythm, Normal S1, S2. Negative for: Murmurs Abdomen: Negative for: Tenderness, Distention, Peritoneal Signs Back: Positive for: Normal Inspection Upper Extremity: Positive for: Normal Inspection. Negative for: Cyanosis, Edema Lower Extremity: Positive for: Other (Right foot amputation noted). Negative for: Edema Neurological: Positive for: CN II-XII Intact, Speech Normal, Motor Func Grossly Intact Skin: Positive for: Warm, Dry, Normal Color. Negative for: Rashes Psychiatric: Positive for: Alert, Oriented x 3, Normal Insight, Normal Erica ntration - Medications Active Medications: Active Medications Generic Name Dose Route Start Last Admin Trade Name Freq PRN Reason Stop Dose Admin Amlodipine Besylate 10 mg 05/24/18 11:13 05/26/18 10:24 Norvasc PO 10 mg DAILY PATTI Administration Clonidine HCl 1 patch 05/24/18 11:15 Catapres-Tts2 0.2 Mg/24 Hr TD Q7D@0700 PATTI Dicyclomine HCl 10 mg 05/19/18 18:00 05/26/18 17:04 Bentyl PO 10 mg TID PATTI Administration Ergocalciferol 1 cap 05/22/18 07:15 05/22/18 08:19 Drisdol 50,000 Intl Units Cap PO 1 cap Q7D PATTI Administration Gabapentin 300 mg 05/19/18 18:00 05/26/18 17:03 Neurontin PO 300 mg BID PATTI Administration Protocol Midazolam 100 mg/100ml in NS 100 mg in 100 mls @ 7 mls/hr 05/20/18 08:31 05/22/18 16:05 Midazolam 100 Mg/100ml In Ns IV 7 mg/hr .[id number] PRN 7 mls/hr Seizure activity Administration Protocol 7 MG/HR Propofol 1,000 mg in 100 mls @ 1.796 mls/hr 05/20/18 10:44 05/22/18 09:11 Diprivan IV 5 mcg/kg/min .Q24H PRN 1.796 mls/hr TITRATE PER MD ORDER Administration Protocol 5 MCG/KG/MIN NOREPINEPHRINE BIT/0.9 % NACL 4 mg in 250 mls @ 15 mls/hr 05/21/18 12:53 Levophed 4 Mg/ 250 Ml Ns Premixed IV .[id number] PRN TITRATE PER MD ORDER Protocol 4 MCG/MIN Levetiracetam 750 mg/ Sodium 107.5 mls @ 322.5 mls/hr 05/22/18 18:00 05/27/18 05:00 Chloride IV 322.5 mls/hr Q12H PATTI Administration Cefepime HCl 2 gm in 100 mls @ 100 mls/hr 05/27/18 08:45 Maxipime 2gm IVPB 06/01/18 08:46 Q8 PATTI Protocol Linezolid 600 mg in 300 mls @ 200 mls/hr 05/27/18 10:00 Zyvox 600mg/300ml D5w IVPB 06/03/18 10:01 Q12 PATTI Protocol Insulin Detemir 16 unit 05/26/18 22:00 05/26/18 22:22 Levemir SC 16 unit Q12H PATTI Administration Insulin Human Lispro 0 units 05/20/18 07:30 05/27/18 08:26 Humalog Low SC Not Given ACHS PATTI Protocol Levalbuterol HCl 1.25 mg 05/20/18 08:00 05/27/18 07:14 Xopenex IH 1.25 mg [id number] PATTI Administration Losartan Potassium 100 mg 05/24/18 18:00 05/24/18 17:13 Cozaar PO 100 mg QPM PATTI Administration Metoclopramide HCl 5 mg 05/19/18 22:00 05/26/18 21:40 Reglan PO 5 mg HS PATTI Administration Metoprolol Tartrate 25 mg 05/26/18 18:00 05/26/18 17:03 Lopressor PO 25 mg BID PATTI Administration Ondansetron HCl 4 mg 05/19/18 22:00 05/26/18 05:39 Zofran Tab PO 4 mg Q8 PATTI Administration Pantoprazole Sodium 40 mg 05/21/18 10:00 05/26/18 10:24 Protonix Inj IVP 40 mg DAILY PATTI Administration Potassium Chloride 40 meq 05/27/18 08:52 Potassium Chloride Oral Soln NG 05/27/18 08:53 ONCE ONE Venlafaxine HCl 75 mg 05/20/18 10:00 05/26/18 10:16 Effexor Xr PO Not Given DAILY PATTI - Patient Studies Lab Studies: Lab Studies 05/27/18 05/27/18 05/27/18 Range/Units 07:07 06:30 06:30 WBC 9.7 (4.5-11.0) 10^3/uL RBC 3.21 L (3.5-6.1) 10^6/uL Hgb 8.2 L (12.0-16.0) g/dL Hct 26.4 L (36.0-48.0) % MCV 82.2 (80.0-105.0) fl MCH 25.5 (25.0-35.0) pg MCHC 31.1 (31.0-37.0) g/dl RDW 16.4 H (11.5-14.5) % Plt Count 255 (120.0-450.0) 10^3/uL MPV 9.1 (7.0-11.0) fl Gran % 84.1 H (50.0-68.0) % Lymph % (Auto) 10.5 L (22.0-35.0) % [place] % (Auto) 3.5 (1.0-6.0) % Eos % (Auto) 1.8 (1.5-5.0) % Baso % (Auto) 0.1 (0.0-3.0) % Gran # 8.19 H (1.4-6.5) Lymph # (Auto) 1.0 L (1.2-3.4) [place] # (Auto) 0.3 (0.1-0.6) Eos # (Auto) 0.2 (0.0-0.7) Baso # (Auto) 0.01 (0.0-2.0) K/mm3 pCO2 (35-45) mm/Hg pO2 (80-100) mm/Hg HCO3 (21-28) mmol/L ABG pH (7.35-7.45) ABG Total CO2 (22-28) mmol.L ABG O2 Saturation (95-98) % ABG O2 Content (15-23) ML/dl ABG Base Excess (-2.0-3.0) mmol/L ABG Hemoglobin (11.7-17.4) g/dL ABG Carboxyhemoglobin (0.5-1.5) % POC ABG HHb (Measured) (0-5) % ABG Methemoglobin (0.0-3.0) % ABG O2 Capacity (16-24) mL/dl Hgb O2 Saturation (95.0-98.0) % FiO2 % Sodium 148 (132-148) mmol/L Potassium 3.3 L (3.6-5.0) mmol/L Chloride 119 H (98-107) mmol/L Carbon Dioxide 27 (21-33) mmol/L Anion Gap 5 L (10-20) BUN 20 (7-21) mg/dL Creatinine 0.9 (0.7-1.2) mg/dl Est GFR ( Amer) > 60 Est GFR (Non-Af Amer) > 60 POC Glucose (mg/dL) 135 H (65-110) mg/dL Random Glucose 147 H (70-110) mg/dL Calcium 8.2 L (8.4-10.5) mg/dL Total Bilirubin < 0.1 L (0.2-1.3) mg/dL AST 16 (14-36) U/L ALT 26 (7-56) U/L Alkaline Phosphatase 165 H (38-126) U/L Total Protein 5.1 L (5.8-8.3) g/dL Albumin 2.4 L (3.0-4.8) g/dL Globulin 2.8 gm/dL Albumin/Globulin Ratio 0.8 L (1.1-1.8) 05/27/18 05/26/18 05/26/18 Range/Units 05:55 22:07 16:12 WBC (4.5-11.0) 10^3/uL RBC (3.5-6.1) 10^6/uL Hgb (12.0-16.0) g/dL Hct (36.0-48.0) % MCV (80.0-105.0) fl MCH (25.0-35.0) pg MCHC (31.0-37.0) g/dl RDW (11.5-14.5) % Plt Count (120.0-450.0) 10^3/uL MPV (7.0-11.0) fl Gran % (50.0-68.0) % Lymph % (Auto) (22.0-35.0) % [place] % (Auto) (1.0-6.0) % Eos % (Auto) (1.5-5.0) % Baso % (Auto) (0.0-3.0) % Gran # (1.4-6.5) Lymph # (Auto) (1.2-3.4) [place] # (Auto) (0.1-0.6) Eos # (Auto) (0.0-0.7) Baso # (Auto) (0.0-2.0) K/mm3 pCO2 35 (35-45) mm/Hg pO2 143.0 H (80-100) mm/Hg HCO3 24.3 (21-28) mmol/L ABG pH 7.45 (7.35-7.45) ABG Total CO2 25.4 (22-28) mmol.L ABG O2 Saturation 97.9 (95-98) % ABG O2 Content 10.7 L (15-23) ML/dl ABG Base Excess 0.4 (-2.0-3.0) mmol/L ABG Hemoglobin 7.6 L (11.7-17.4) g/dL ABG Carboxyhemoglobin 0.4 L (0.5-1.5) % POC ABG HHb (Measured) 2.1 (0-5) % ABG Methemoglobin 0.1 (0.0-3.0) % ABG O2 Capacity 10.9 L (16-24) mL/dl Hgb O2 Saturation 97.4 (95.0-98.0) % FiO2 40.0 % Sodium (132-148) mmol/L Potassium (3.6-5.0) mmol/L Chloride (98-107) mmol/L Carbon Dioxide (21-33) mmol/L Anion Gap (10-20) BUN (7-21) mg/dL Creatinine (0.7-1.2) mg/dl Est GFR ( Amer) Est GFR (Non-Af Amer) POC Glucose (mg/dL) 225 H 230 H (65-110) mg/dL Random Glucose (70-110) mg/dL Calcium (8.4-10.5) mg/dL Total Bilirubin (0.2-1.3) mg/dL AST (14-36) U/L ALT (7-56) U/L Alkaline Phosphatase (38-126) U/L Total Protein (5.8-8.3) g/dL Albumin (3.0-4.8) g/dL Globulin gm/dL Albumin/Globulin Ratio (1.1-1.8) 05/26/18 05/26/18 Range/Units 11:23 07:15 WBC (4.5-11.0) 10^3/uL RBC (3.5-6.1) 10^6/uL Hgb (12.0-16.0) g/dL Hct (36.0-48.0) % MCV (80.0-105.0) fl MCH (25.0-35.0) pg MCHC (31.0-37.0) g/dl RDW (11.5-14.5) % Plt Count (120.0-450.0) 10^3/uL MPV (7.0-11.0) fl Gran % (50.0-68.0) % Lymph % (Auto) (22.0-35.0) % [place] % (Auto) (1.0-6.0) % Eos % (Auto) (1.5-5.0) % Baso % (Auto) (0.0-3.0) % Gran # (1.4-6.5) Lymph # (Auto) (1.2-3.4) [place] # (Auto) (0.1-0.6) Eos # (Auto) (0.0-0.7) Baso # (Auto) (0.0-2.0) K/mm3 pCO2 (35-45) mm/Hg pO2 (80-100) mm/Hg HCO3 (21-28) mmol/L ABG pH (7.35-7.45) ABG Total CO2 (22-28) mmol.L ABG O2 Saturation (95-98) % ABG O2 Content (15-23) ML/dl ABG Base Excess (-2.0-3.0) mmol/L ABG Hemoglobin (11.7-17.4) g/dL ABG Carboxyhemoglobin (0.5-1.5) % POC ABG HHb (Measured) (0-5) % ABG Methemoglobin (0.0-3.0) % ABG O2 Capacity (16-24) mL/dl Hgb O2 Saturation (95.0-98.0) % FiO2 % Sodium (132-148) mmol/L Potassium (3.6-5.0) mmol/L Chloride (98-107) mmol/L Carbon Dioxide (21-33) mmol/L Anion Gap (10-20) BUN (7-21) mg/dL Creatinine (0.7-1.2) mg/dl Est GFR ( Amer) Est GFR (Non-Af Amer) POC Glucose (mg/dL) 289 H 221 H (65-110) mg/dL Random Glucose (70-110) mg/dL Calcium (8.4-10.5) mg/dL Total Bilirubin (0.2-1.3) mg/dL AST (14-36) U/L ALT (7-56) U/L Alkaline Phosphatase (38-126) U/L Total Protein (5.8-8.3) g/dL Albumin (3.0-4.8) g/dL Globulin gm/dL Albumin/Globulin Ratio (1.1-1.8) Laboratory Results - last 24 hr 05/26/18 05/26/18 05/26/18 07:15 11:23 16:12 WBC RBC Hgb Hct MCV MCH MCHC RDW Plt Count MPV Gran % Lymph % (Auto) [place] % (Auto) Eos % (Auto) Baso % (Auto) Gran # Lymph # (Auto) [place] # (Auto) Eos # (Auto) Baso # (Auto) pCO2 pO2 HCO3 ABG pH ABG Total CO2 ABG O2 Saturation ABG O2 Content ABG Base Excess ABG Hemoglobin ABG Carboxyhemoglobin POC ABG HHb (Measured) ABG Methemoglobin ABG O2 Capacity Hgb O2 Saturation FiO2 Sodium Potassium Chloride Carbon Dioxide Anion Gap BUN Creatinine Est GFR ( Amer) Est GFR (Non-Af Amer) POC Glucose (mg/dL) 221 H 289 H 230 H Random Glucose Calcium Total Bilirubin AST ALT Alkaline Phosphatase Total Protein Albumin Globulin Albumin/Globulin Ratio 05/26/18 05/27/18 05/27/18 22:07 05:55 06:30 WBC 9.7 RBC 3.21 L Hgb 8.2 L Hct 26.4 L MCV 82.2 MCH 25.5 MCHC 31.1 RDW 16.4 H Plt Count 255 MPV 9.1 Gran % 84.1 H Lymph % (Auto) 10.5 L [place] % (Auto) 3.5 Eos % (Auto) 1.8 Baso % (Auto) 0.1 Gran # 8.19 H Lymph # (Auto) 1.0 L [place] # (Auto) 0.3 Eos # (Auto) 0.2 Baso # (Auto) 0.01 pCO2 35 pO2 143.0 H HCO3 24.3 ABG pH 7.45 ABG Total CO2 25.4 ABG O2 Saturation 97.9 ABG O2 Content 10.7 L ABG Base Excess 0.4 ABG Hemoglobin 7.6 L ABG Carboxyhemoglobin 0.4 L POC ABG HHb (Measured) 2.1 ABG Methemoglobin 0.1 ABG O2 Capacity 10.9 L Hgb O2 Saturation 97.4 FiO2 40.0 Sodium Potassium Chloride Carbon Dioxide Anion Gap BUN Creatinine Est GFR ( Amer) Est GFR (Non-Af Amer) POC Glucose (mg/dL) 225 H Random Glucose Calcium Total Bilirubin AST ALT Alkaline Phosphatase Total Protein Albumin Globulin Albumin/Globulin Ratio 05/27/18 05/27/18 06:30 07:07 WBC RBC Hgb Hct MCV MCH MCHC RDW Plt Count MPV Gran % Lymph % (Auto) [place] % (Auto) Eos % (Auto) Baso % (Auto) Gran # Lymph # (Auto) [place] # (Auto) Eos # (Auto) Baso # (Auto) pCO2 pO2 HCO3 ABG pH ABG Total CO2 ABG O2 Saturation ABG O2 Content ABG Base Excess ABG Hemoglobin ABG Carboxyhemoglobin POC ABG HHb (Measured) ABG Methemoglobin ABG O2 Capacity Hgb O2 Saturation FiO2 Sodium 148 Potassium 3.3 L Chloride 119 H Carbon Dioxide 27 Anion Gap 5 L BUN 20 Creatinine 0.9 Est GFR ( Amer) > 60 Est GFR (Non-Af Amer) > 60 POC Glucose (mg/dL) 135 H Random Glucose 147 H Calcium 8.2 L Total Bilirubin < 0.1 L AST 16 ALT 26 Alkaline Phosphatase 165 H Total Protein 5.1 L Albumin 2.4 L Globulin 2.8 Albumin/Globulin Ratio 0.8 L Radiology Impressions: Radiology Impressions Chest X-Ray 05/26/18 06:00 IMPRESSION: There is a right-sided perihilar infiltrate unchanged. The left-sided infiltrate has improved. Central lines and tubes unchanged Fingerstick Blood Sugar Results: 135 Critical Care Progress Note - Nutrition Nutrition: Nutrition Category Date Time Status NPO Diet [DIET] Diets 05/19/18 Dinner Ordered <Delfin Esqueda - Last Filed: 05/27/18 15:58> CCU Objective - Vital Signs / Intake & Output Intake and Output (Last 8hrs): Intake & Output 05/27/18 05/27/18 05/27/18 06:59 14:59 22:59 Intake Total 200 Balance 200 Intake: IV 200 - Medications Active Medications: Active Medications Generic Name Dose Route Start Last Admin Trade Name Freq PRN Reason Stop Dose Admin Amlodipine Besylate 10 mg 05/24/18 11:13 05/27/18 09:17 Norvasc PO 10 mg DAILY PATTI Administration Clonidine HCl 1 patch 05/24/18 11:15 Catapres-Tts2 0.2 Mg/24 Hr TD Q7D@0700 PATTI Dicyclomine HCl 10 mg 05/19/18 18:00 05/27/18 14:35 Bentyl PO 10 mg TID PATTI Administration Ergocalciferol 1 cap 05/22/18 07:15 05/22/18 08:19 Drisdol 50,000 Intl Units Cap PO 1 cap Q7D PATTI Administration Gabapentin 300 mg 05/19/18 18:00 05/27/18 09:18 Neurontin PO 300 mg BID PATTI Administration Protocol Midazolam 100 mg/100ml in NS 100 mg in 100 mls @ 7 mls/hr 05/20/18 08:31 05/22/18 16:05 Midazolam 100 Mg/100ml In Ns IV 7 mg/hr .[id number] PRN 7 mls/hr Seizure activity Administration Protocol 7 MG/HR Propofol 1,000 mg in 100 mls @ 1.796 mls/hr 05/20/18 10:44 05/22/18 09:11 Diprivan IV 5 mcg/kg/min .Q24H PRN 1.796 mls/hr TITRATE PER MD ORDER Administration Protocol 5 MCG/KG/MIN NOREPINEPHRINE BIT/0.9 % NACL 4 mg in 250 mls @ 15 mls/hr 05/21/18 12:53 Levophed 4 Mg/ 250 Ml Ns Premixed IV .[id number] PRN TITRATE PER MD ORDER Protocol 4 MCG/MIN Levetiracetam 750 mg/ Sodium 107.5 mls @ 322.5 mls/hr 05/22/18 18:00 05/27/18 05:00 Chloride IV 322.5 mls/hr Q12H PATTI Administration Cefepime HCl 2 gm in 100 mls @ 100 mls/hr 05/27/18 08:45 05/27/18 14:35 Maxipime 2gm IVPB 06/01/18 08:46 100 mls/hr Q8 PATTI Administration Protocol Linezolid 600 mg in 300 mls @ 200 mls/hr 05/27/18 10:00 05/27/18 09:19 Zyvox 600mg/300ml D5w IVPB 06/03/18 10:01 200 mls/hr Q12 PATTI Administration Protocol Nicardipine HCl 20 mg in 200 mls @ 50 mls/hr 05/27/18 09:35 05/27/18 14:20 Cardene Iv Premix IV 5 mg/hr .Q4H PRN 50 mls/hr TITRATE PER MD ORDER Administration Protocol 5 MG/HR Insulin Detemir 16 unit 05/26/18 22:00 05/27/18 09:22 Levemir SC 16 unit Q12H PATTI Administration Insulin Human Lispro 0 units 05/20/18 07:30 05/27/18 12:19 Humalog Low SC Not Given ACHS PATTI Protocol Levalbuterol HCl 1.25 mg 05/20/18 08:00 05/27/18 13:04 Xopenex IH 1.25 mg [id number] PATTI Administration Losartan Potassium 100 mg 05/24/18 18:00 05/24/18 17:13 Cozaar PO 100 mg QPM PATTI Administration Metoclopramide HCl 5 mg 05/19/18 22:00 05/26/18 21:40 Reglan PO 5 mg HS PATTI Administration Metoprolol Tartrate 25 mg 05/26/18 18:00 05/27/18 09:22 Lopressor PO 25 mg BID PATTI Administration Ondansetron HCl 4 mg 05/19/18 22:00 05/26/18 05:39 Zofran Tab PO 4 mg Q8 PATTI Administration Pantoprazole Sodium 40 mg 05/21/18 10:00 05/27/18 09:16 Protonix Inj IVP 40 mg DAILY PATTI Administration Venlafaxine HCl 75 mg 05/20/18 10:00 05/27/18 09:20 Effexor Xr PO Not Given DAILY PATTI - Patient Studies Lab Studies: Lab Studies 05/27/18 05/27/18 05/27/18 Range/Units 12:05 09:10 09:10 WBC (4.5-11.0) 10^3/uL RBC (3.5-6.1) 10^6/uL Hgb (12.0-16.0) g/dL Hct (36.0-48.0) % MCV (80.0-105.0) fl MCH (25.0-35.0) pg MCHC (31.0-37.0) g/dl RDW (11.5-14.5) % Plt Count (120.0-450.0) 10^3/uL MPV (7.0-11.0) fl Gran % (50.0-68.0) % Lymph % (Auto) (22.0-35.0) % [place] % (Auto) (1.0-6.0) % Eos % (Auto) (1.5-5.0) % Baso % (Auto) (0.0-3.0) % Gran # (1.4-6.5) Lymph # (Auto) (1.2-3.4) [place] # (Auto) (0.1-0.6) Eos # (Auto) (0.0-0.7) Baso # (Auto) (0.0-2.0) K/mm3 pCO2 (35-45) mm/Hg pO2 (80-100) mm/Hg HCO3 (21-28) mmol/L ABG pH (7.35-7.45) ABG Total CO2 (22-28) mmol.L ABG O2 Saturation (95-98) % ABG O2 Content (15-23) ML/dl ABG Base Excess (-2.0-3.0) mmol/L ABG Hemoglobin (11.7-17.4) g/dL ABG Carboxyhemoglobin (0.5-1.5) % POC ABG HHb (Measured) (0-5) % ABG Methemoglobin (0.0-3.0) % ABG O2 Capacity (16-24) mL/dl Hgb O2 Saturation (95.0-98.0) % FiO2 % Sodium (132-148) mmol/L Potassium (3.6-5.0) mmol/L Chloride (98-107) mmol/L Carbon Dioxide (21-33) mmol/L Anion Gap (10-20) BUN (7-21) mg/dL Creatinine (0.7-1.2) mg/dl Est GFR ( Amer) Est GFR (Non-Af Amer) POC Glucose (mg/dL) (65-110) mg/dL Random Glucose (70-110) mg/dL Calcium (8.4-10.5) mg/dL Magnesium (1.7-2.2) mg/dL Total Bilirubin (0.2-1.3) mg/dL AST (14-36) U/L ALT (7-56) U/L Alkaline Phosphatase (38-126) U/L Total Creatine Kinase 41 (35-230) U/L Total Protein (5.8-8.3) g/dL Albumin (3.0-4.8) g/dL Globulin gm/dL Albumin/Globulin Ratio (1.1-1.8) Urine Color Light yellow (YELLOW) Urine Appearance Clear (CLEAR) Urine pH 6.5 (4.7-8.0) Ur Specific [place] 1.025 (1.005-1.035) Urine Protein 100 H (<30 mg/dL) mg/dL Urine Glucose (UA) Negative (NEGATIVE) mg/dL Urine Ketones Negative (NEGATIVE) mg/dL Urine Blood Small H (NEGATIVE) Urine Nitrate Negative (NEGATIVE) Urine Bilirubin Negative (NEGATIVE) Urine Urobilinogen 0.2 (<1 E.U./dL) E.U./dL Ur Leukocyte Esterase Negative (NEGATIVE) Jennifer/uL Urine RBC 1 - 3 H (0-2) /hpf Urine WBC 1 - 3 (0-6) /hpf Ur Epithelial Cells 0 - 2 (0-5) /hpf Urine Other Uyeast /hpf Influenza Typ A,B (EIA) Negative for flu a/b (NEGATIVE) 05/27/18 05/27/18 05/27/18 Range/Units 07:07 06:30 06:30 WBC (4.5-11.0) 10^3/uL RBC (3.5-6.1) 10^6/uL Hgb (12.0-16.0) g/dL Hct (36.0-48.0) % MCV (80.0-105.0) fl MCH (25.0-35.0) pg MCHC (31.0-37.0) g/dl RDW (11.5-14.5) % Plt Count (120.0-450.0) 10^3/uL MPV (7.0-11.0) fl Gran % (50.0-68.0) % Lymph % (Auto) (22.0-35.0) % [place] % (Auto) (1.0-6.0) % Eos % (Auto) (1.5-5.0) % Baso % (Auto) (0.0-3.0) % Gran # (1.4-6.5) Lymph # (Auto) (1.2-3.4) [place] # (Auto) (0.1-0.6) Eos # (Auto) (0.0-0.7) Baso # (Auto) (0.0-2.0) K/mm3 pCO2 (35-45) mm/Hg pO2 (80-100) mm/Hg HCO3 (21-28) mmol/L ABG pH (7.35-7.45) ABG Total CO2 (22-28) mmol.L ABG O2 Saturation (95-98) % ABG O2 Content (15-23) ML/dl ABG Base Excess (-2.0-3.0) mmol/L ABG Hemoglobin (11.7-17.4) g/dL ABG Carboxyhemoglobin (0.5-1.5) % POC ABG HHb (Measured) (0-5) % ABG Methemoglobin (0.0-3.0) % ABG O2 Capacity (16-24) mL/dl Hgb O2 Saturation (95.0-98.0) % FiO2 % Sodium 148 (132-148) mmol/L Potassium 3.3 L (3.6-5.0) mmol/L Chloride 119 H (98-107) mmol/L Carbon Dioxide 27 (21-33) mmol/L Anion Gap 5 L (10-20) BUN 20 (7-21) mg/dL Creatinine 0.9 (0.7-1.2) mg/dl Est GFR ( Amer) > 60 Est GFR (Non-Af Amer) > 60 POC Glucose (mg/dL) 135 H (65-110) mg/dL Random Glucose 147 H (70-110) mg/dL Calcium 8.2 L (8.4-10.5) mg/dL Magnesium 1.9 (1.7-2.2) mg/dL Total Bilirubin < 0.1 L (0.2-1.3) mg/dL AST 16 (14-36) U/L ALT 26 (7-56) U/L Alkaline Phosphatase 165 H (38-126) U/L Total Creatine Kinase (35-230) U/L Total Protein 5.1 L (5.8-8.3) g/dL Albumin 2.4 L (3.0-4.8) g/dL Globulin 2.8 gm/dL Albumin/Globulin Ratio 0.8 L (1.1-1.8) Urine Color (YELLOW) Urine Appearance (CLEAR) Urine pH (4.7-8.0) Ur Specific [place] (1.005-1.035) Urine Protein (<30 mg/dL) mg/dL Urine Glucose (UA) (NEGATIVE) mg/dL Urine Ketones (NEGATIVE) mg/dL Urine Blood (NEGATIVE) Urine Nitrate (NEGATIVE) Urine Bilirubin (NEGATIVE) Urine Urobilinogen (<1 E.U./dL) E.U./dL Ur Leukocyte Esterase (NEGATIVE) Jennifer/uL Urine RBC (0-2) /hpf Urine WBC (0-6) /hpf Ur Epithelial Cells (0-5) /hpf Urine Other /hpf Influenza Typ A,B (EIA) (NEGATIVE) 05/27/18 05/27/18 05/26/18 Range/Units 06:30 05:55 22:07 WBC 9.7 (4.5-11.0) 10^3/uL RBC 3.21 L (3.5-6.1) 10^6/uL Hgb 8.2 L (12.0-16.0) g/dL Hct 26.4 L (36.0-48.0) % MCV 82.2 (80.0-105.0) fl MCH 25.5 (25.0-35.0) pg MCHC 31.1 (31.0-37.0) g/dl RDW 16.4 H (11.5-14.5) % Plt Count 255 (120.0-450.0) 10^3/uL MPV 9.1 (7.0-11.0) fl Gran % 84.1 H (50.0-68.0) % Lymph % (Auto) 10.5 L (22.0-35.0) % [place] % (Auto) 3.5 (1.0-6.0) % Eos % (Auto) 1.8 (1.5-5.0) % Baso % (Auto) 0.1 (0.0-3.0) % Gran # 8.19 H (1.4-6.5) Lymph # (Auto) 1.0 L (1.2-3.4) [place] # (Auto) 0.3 (0.1-0.6) Eos # (Auto) 0.2 (0.0-0.7) Baso # (Auto) 0.01 (0.0-2.0) K/mm3 pCO2 35 (35-45) mm/Hg pO2 143.0 H (80-100) mm/Hg HCO3 24.3 (21-28) mmol/L ABG pH 7.45 (7.35-7.45) ABG Total CO2 25.4 (22-28) mmol.L ABG O2 Saturation 97.9 (95-98) % ABG O2 Content 10.7 L (15-23) ML/dl ABG Base Excess 0.4 (-2.0-3.0) mmol/L ABG Hemoglobin 7.6 L (11.7-17.4) g/dL ABG Carboxyhemoglobin 0.4 L (0.5-1.5) % POC ABG HHb (Measured) 2.1 (0-5) % ABG Methemoglobin 0.1 (0.0-3.0) % ABG O2 Capacity 10.9 L (16-24) mL/dl Hgb O2 Saturation 97.4 (95.0-98.0) % FiO2 40.0 % Sodium (132-148) mmol/L Potassium (3.6-5.0) mmol/L Chloride (98-107) mmol/L Carbon Dioxide (21-33) mmol/L Anion Gap (10-20) BUN (7-21) mg/dL Creatinine (0.7-1.2) mg/dl Est GFR ( Amer) Est GFR (Non-Af Amer) POC Glucose (mg/dL) 225 H (65-110) mg/dL Random Glucose (70-110) mg/dL Calcium (8.4-10.5) mg/dL Magnesium (1.7-2.2) mg/dL Total Bilirubin (0.2-1.3) mg/dL AST (14-36) U/L ALT (7-56) U/L Alkaline Phosphatase (38-126) U/L Total Creatine Kinase (35-230) U/L Total Protein (5.8-8.3) g/dL Albumin (3.0-4.8) g/dL Globulin gm/dL Albumin/Globulin Ratio (1.1-1.8) Urine Color (YELLOW) Urine Appearance (CLEAR) Urine pH (4.7-8.0) Ur Specific [place] (1.005-1.035) Urine Protein (<30 mg/dL) mg/dL Urine Glucose (UA) (NEGATIVE) mg/dL Urine Ketones (NEGATIVE) mg/dL Urine Blood (NEGATIVE) Urine Nitrate (NEGATIVE) Urine Bilirubin (NEGATIVE) Urine Urobilinogen (<1 E.U./dL) E.U./dL Ur Leukocyte Esterase (NEGATIVE) Jennifer/uL Urine RBC (0-2) /hpf Urine WBC (0-6) /hpf Ur Epithelial Cells (0-5) /hpf Urine Other /hpf Influenza Typ A,B (EIA) (NEGATIVE) 05/26/18 05/26/18 05/26/18 Range/Units 16:12 11:23 07:15 WBC (4.5-11.0) 10^3/uL RBC (3.5-6.1) 10^6/uL Hgb (12.0-16.0) g/dL Hct (36.0-48.0) % MCV (80.0-105.0) fl MCH (25.0-35.0) pg MCHC (31.0-37.0) g/dl RDW (11.5-14.5) % Plt Count (120.0-450.0) 10^3/uL MPV (7.0-11.0) fl Gran % (50.0-68.0) % Lymph % (Auto) (22.0-35.0) % [place] % (Auto) (1.0-6.0) % Eos % (Auto) (1.5-5.0) % Baso % (Auto) (0.0-3.0) % Gran # (1.4-6.5) Lymph # (Auto) (1.2-3.4) [place] # (Auto) (0.1-0.6) Eos # (Auto) (0.0-0.7) Baso # (Auto) (0.0-2.0) K/mm3 pCO2 (35-45) mm/Hg pO2 (80-100) mm/Hg HCO3 (21-28) mmol/L ABG pH (7.35-7.45) ABG Total CO2 (22-28) mmol.L ABG O2 Saturation (95-98) % ABG O2 Content (15-23) ML/dl ABG Base Excess (-2.0-3.0) mmol/L ABG Hemoglobin (11.7-17.4) g/dL ABG Carboxyhemoglobin (0.5-1.5) % POC ABG HHb (Measured) (0-5) % ABG Methemoglobin (0.0-3.0) % ABG O2 Capacity (16-24) mL/dl Hgb O2 Saturation (95.0-98.0) % FiO2 % Sodium (132-148) mmol/L Potassium (3.6-5.0) mmol/L Chloride (98-107) mmol/L Carbon Dioxide (21-33) mmol/L Anion Gap (10-20) BUN (7-21) mg/dL Creatinine (0.7-1.2) mg/dl Est GFR ( Amer) Est GFR (Non-Af Amer) POC Glucose (mg/dL) 230 H 289 H 221 H (65-110) mg/dL Random Glucose (70-110) mg/dL Calcium (8.4-10.5) mg/dL Magnesium (1.7-2.2) mg/dL Total Bilirubin (0.2-1.3) mg/dL AST (14-36) U/L ALT (7-56) U/L Alkaline Phosphatase (38-126) U/L Total Creatine Kinase (35-230) U/L Total Protein (5.8-8.3) g/dL Albumin (3.0-4.8) g/dL Globulin gm/dL Albumin/Globulin Ratio (1.1-1.8) Urine Color (YELLOW) Urine Appearance (CLEAR) Urine pH (4.7-8.0) Ur Specific [place] (1.005-1.035) Urine Protein (<30 mg/dL) mg/dL Urine Glucose (UA) (NEGATIVE) mg/dL Urine Ketones (NEGATIVE) mg/dL Urine Blood (NEGATIVE) Urine Nitrate (NEGATIVE) Urine Bilirubin (NEGATIVE) Urine Urobilinogen (<1 E.U./dL) E.U./dL Ur Leukocyte Esterase (NEGATIVE) Jennifer/uL Urine RBC (0-2) /hpf Urine WBC (0-6) /hpf Ur Epithelial Cells (0-5) /hpf Urine Other /hpf Influenza Typ A,B (EIA) (NEGATIVE) Laboratory Results - last 24 hr 05/26/18 05/26/18 05/26/18 07:15 11:23 16:12 WBC RBC Hgb Hct MCV MCH MCHC RDW Plt Count MPV Gran % Lymph % (Auto) [place] % (Auto) Eos % (Auto) Baso % (Auto) Gran # Lymph # (Auto) [place] # (Auto) Eos # (Auto) Baso # (Auto) pCO2 pO2 HCO3 ABG pH ABG Total CO2 ABG O2 Saturation ABG O2 Content ABG Base Excess ABG Hemoglobin ABG Carboxyhemoglobin POC ABG HHb (Measured) ABG Methemoglobin ABG O2 Capacity Hgb O2 Saturation FiO2 Sodium Potassium Chloride Carbon Dioxide Anion Gap BUN Creatinine Est GFR ( Amer) Est GFR (Non-Af Amer) POC Glucose (mg/dL) 221 H 289 H 230 H Random Glucose Calcium Magnesium Total Bilirubin AST ALT Alkaline Phosphatase Total Creatine Kinase Total Protein Albumin Globulin Albumin/Globulin Ratio Urine Color Urine Appearance Urine pH Ur Specific [place] Urine Protein Urine Glucose (UA) Urine Ketones Urine Blood Urine Nitrate Urine Bilirubin Urine Urobilinogen Ur Leukocyte Esterase Urine RBC Urine WBC Ur Epithelial Cells Urine Other Influenza Typ A,B (EIA) 05/26/18 05/27/18 05/27/18 22:07 05:55 06:30 WBC 9.7 RBC 3.21 L Hgb 8.2 L Hct 26.4 L MCV 82.2 MCH 25.5 MCHC 31.1 RDW 16.4 H Plt Count 255 MPV 9.1 Gran % 84.1 H Lymph % (Auto) 10.5 L [place] % (Auto) 3.5 Eos % (Auto) 1.8 Baso % (Auto) 0.1 Gran # 8.19 H Lymph # (Auto) 1.0 L [place] # (Auto) 0.3 Eos # (Auto) 0.2 Baso # (Auto) 0.01 pCO2 35 pO2 143.0 H HCO3 24.3 ABG pH 7.45 ABG Total CO2 25.4 ABG O2 Saturation 97.9 ABG O2 Content 10.7 L ABG Base Excess 0.4 ABG Hemoglobin 7.6 L ABG Carboxyhemoglobin 0.4 L POC ABG HHb (Measured) 2.1 ABG Methemoglobin 0.1 ABG O2 Capacity 10.9 L Hgb O2 Saturation 97.4 FiO2 40.0 Sodium Potassium Chloride Carbon Dioxide Anion Gap BUN Creatinine Est GFR ( Amer) Est GFR (Non-Af Amer) POC Glucose (mg/dL) 225 H Random Glucose Calcium Magnesium Total Bilirubin AST ALT Alkaline Phosphatase Total Creatine Kinase Total Protein Albumin Globulin Albumin/Globulin Ratio Urine Color Urine Appearance Urine pH Ur Specific [place] Urine Protein Urine Glucose (UA) Urine Ketones Urine Blood Urine Nitrate Urine Bilirubin Urine Urobilinogen Ur Leukocyte Esterase Urine RBC Urine WBC Ur Epithelial Cells Urine Other Influenza Typ A,B (EIA) 05/27/18 05/27/18 05/27/18 06:30 06:30 07:07 WBC RBC Hgb Hct MCV MCH MCHC RDW Plt Count MPV Gran % Lymph % (Auto) [place] % (Auto) Eos % (Auto) Baso % (Auto) Gran # Lymph # (Auto) [place] # (Auto) Eos # (Auto) Baso # (Auto) pCO2 pO2 HCO3 ABG pH ABG Total CO2 ABG O2 Saturation ABG O2 Content ABG Base Excess ABG Hemoglobin ABG Carboxyhemoglobin POC ABG HHb (Measured) ABG Methemoglobin ABG O2 Capacity Hgb O2 Saturation FiO2 Sodium 148 Potassium 3.3 L Chloride 119 H Carbon Dioxide 27 Anion Gap 5 L BUN 20 Creatinine 0.9 Est GFR ( Amer) > 60 Est GFR (Non-Af Amer) > 60 POC Glucose (mg/dL) 135 H Random Glucose 147 H Calcium 8.2 L Magnesium 1.9 Total Bilirubin < 0.1 L AST 16 ALT 26 Alkaline Phosphatase 165 H Total Creatine Kinase Total Protein 5.1 L Albumin 2.4 L Globulin 2.8 Albumin/Globulin Ratio 0.8 L Urine Color Urine Appearance Urine pH Ur Specific [place] Urine Protein Urine Glucose (UA) Urine Ketones Urine Blood Urine Nitrate Urine Bilirubin Urine Urobilinogen Ur Leukocyte Esterase Urine RBC Urine WBC Ur Epithelial Cells Urine Other Influenza Typ A,B (EIA) 05/27/18 05/27/18 05/27/18 09:10 09:10 12:05 WBC RBC Hgb Hct MCV MCH MCHC RDW Plt Count MPV Gran % Lymph % (Auto) [place] % (Auto) Eos % (Auto) Baso % (Auto) Gran # Lymph # (Auto) [place] # (Auto) Eos # (Auto) Baso # (Auto) pCO2 pO2 HCO3 ABG pH ABG Total CO2 ABG O2 Saturation ABG O2 Content ABG Base Excess ABG Hemoglobin ABG Carboxyhemoglobin POC ABG HHb (Measured) ABG Methemoglobin ABG O2 Capacity Hgb O2 Saturation FiO2 Sodium Potassium Chloride Carbon Dioxide Anion Gap BUN Creatinine Est GFR ( Amer) Est GFR (Non-Af Amer) POC Glucose (mg/dL) Random Glucose Calcium Magnesium Total Bilirubin AST ALT Alkaline Phosphatase Total Creatine Kinase 41 Total Protein Albumin Globulin Albumin/Globulin Ratio Urine Color Light yellow Urine Appearance Clear Urine pH 6.5 Ur Specific [place] 1.025 Urine Protein 100 H Urine Glucose (UA) Negative Urine Ketones Negative Urine Blood Small H Urine Nitrate Negative Urine Bilirubin Negative Urine Urobilinogen 0.2 Ur Leukocyte Esterase Negative Urine RBC 1 - 3 H Urine WBC 1 - 3 Ur Epithelial Cells 0 - 2 Urine Other [place] Influenza Typ A,B (EIA) Negative for flu a/b Radiology Impressions: Radiology Impressions Chest X-Ray 05/27/18 06:00 IMPRESSION: No significant change in right-sided perihilar infiltrate in the upper and lower lobe. Central lines and tubes unchanged Critical Care Progress Note - Nutrition Nutrition: Nutrition Category Date Time Status NPO Diet [DIET] Diets 05/19/18 Dinner Ordered Attending/Attestation - Attestation I have personally seen and examined this patient.: Yes I have fully participated in the care of the patient.: Yes I have reviewed all pertinent clinical information: Yes Notes (Text): 05/27/18 15:52 57 yo female with now resolved status epilepticus, complicated by PRES syndrome, with persistent altered mental status, requiring IMV for airway protection. was doing well on PST respiratorily. will contineu with conservative fluid management, conservative 02 management, sedation vacation, HOB>35, oral hygiene, avoiding excessive Vt, dvt/gi prophylaxis. will get ENT consult for trach, maintain euvolemia, euglycemia and normothermia, maintain BP within normal limits aggressively. svt very brisks episodes with subsequent conversation to sinus within a few minutes-->on bb-ers, will try dig. renal function improved, lites improved-->cont current management ccm time 40 min
[2018-05-27] MEDS: Cefepime IV 2 gm in NS 2 GM/100 ML BAG IVPB SCH ×3 (09:18→21:25)
[2018-05-27] MEDS: Linezolid 600 mg in D5W 300 ml 600 MG/300 ML BAG IVPB SCH ×2 (09:19→21:26)
[2018-05-27] MEDS: Venlafaxine 75 mg ER Cap PO SCH (09:20)
[2018-05-27] MEDS: Insulin Detemir 100 units/ml Vial (Levemir) SC SCH ×2 (09:22→22:19)
[2018-05-27 09:23] LABS: PH,URINE 6.5 (4.7-8.0); URINE BILIRUBIN NEGATIVE (NEGATIVE); URINE BLOOD SMALL (NEGATIVE); URINE GLUCOSE (UA) NEGATIVE (NEGATIVE); URINE LEUKOCYTE ESTERASE NEGATIVE Leu/uL (NEGATIVE); URINE PROTEIN 100 mg/dL (<30 mg/dL); URINE UROBILINOGEN 0.2 E.U./dL (<1 E.U./dL)
[2018-05-27 09:25] LABS: URINE APPEARANCE CLEAR (CLEAR); URINE COLOR LIGHT YELLOW (YELLOW)
[2018-05-27 09:31] LABS: URINE EPITHELIAL CELLS 0 - 2 /hpf (0-5)
[2018-05-27] MEDS ORDERED: Labetalol 5 mg/ml Inj 20ML IV STA (09:36)
--- NOTE | 2018-05-27 10:01 | RAD ---
Date of service: 05/27/2018 HISTORY: f/u COMPARISON: 05/26/2018 FINDINGS: LUNGS: No significant change in right-sided perihilar infiltrate in the upper and lower lobe. Central lines and tubes unchanged PLEURA: No significant pleural effusion identified, no pneumothorax apparent. CARDIOVASCULAR: No aortic atherosclerotic calcification present. Normal cardiac size. No pulmonary vascular congestion. OSSEOUS STRUCTURES: No significant abnormalities. VISUALIZED UPPER ABDOMEN: Normal. OTHER FINDINGS: None. IMPRESSION: No significant change in right-sided perihilar infiltrate in the upper and lower lobe. Central lines and tubes unchanged
[2018-05-27] MEDS: Nicardipine 20 MG/200 ML 20 MG/200 ML BAG IV PRN ×4 (10:13→22:36)
[2018-05-27] MEDS ORDERED: Labetalol 5mg/ml (4ml) IVP STA (10:21)
--- NOTE | 2018-05-27 10:54 | PN ---
DATE: 05/27/2018 CARDIOLOGY FOLLOWUP SUBJECTIVE: The patient remains on a ventilator. She has intermittent SVT. OBJECTIVE: VITAL SIGNS: Currently, she has got a heart rate of 128 despite beta-blockers . Blood pressure is 187 systolic. NECK: Negative JVD. LUNGS: Without rales. HEART: Reveals S1, S2. EXTREMITIES: Without edema. LABORATORY DATA: Hemoglobin is 8.2. Chemistries, BUN and creatinine is 20 and 0.9. IMPRESSION: 1. Respiratory failure. 2. Seizures. 3. Recurrent supraventricular tachycardia. 4. History of diabetes mellitus. 5. Gastroparesis. Given these findings, I am not sure why her losartan has been put on hold, but we will restart her losartan today for her blood pressure. In addition, we will add digoxin to her regimen to reduce her SVT episodes. Carter Farmer MD
--- NOTE | 2018-05-27 11:04 | CP.PCM.PN ---
Subjective - Date & Time of Evaluation Date of Evaluation: 05/27/18 Time of Evaluation: 10:40 - Subjective Subjective: Continues to be on the ventilator, not sedated anymore, awake but does not follow commands, had low grade fevers overnight. Objective - Vital Signs/Intake and Output Vital Signs (last 24 hours): Temp Pulse Resp BP Pulse Ox 98.6 F 133 H 17 144/77 94 L 05/26/18 04:00 05/26/18 10:43 05/26/18 07:26 05/26/18 10:43 05/26/18 07:26 Intake and Output: 05/26/18 05/26/18 06:59 18:59 Intake Total 1600 Output Total 500 Balance 1100 - Medications Medications: Current Medications Amlodipine Besylate (Norvasc) 10 mg PO DAILY [facility] Last Admin: 05/26/18 10:24 Dose: 10 mg Clonidine HCl (Catapres-Tts2 0.2 Mg/24 Hr) 1 patch TD Q7D@0700 PATTI Dicyclomine HCl (Bentyl) 10 mg PO TID [facility] Last Admin: 05/26/18 10:24 Dose: 10 mg Ergocalciferol (Drisdol 50,000 Intl Units Cap) 1 cap PO Q7D PATTI Last Admin: 05/22/18 08:19 Dose: 1 cap Gabapentin (Neurontin) 300 mg PO BID [facility]; Protocol Last Admin: 05/26/18 10:24 Dose: 300 mg Piperacillin Sod/Tazobactam Sod (Zosyn 3.375 In Ns 100ml) 100 mls @ 25 mls/hr IVPB Q8 PATTI; Protocol Stop: 05/27/18 07:01 Last Admin: 05/26/18 05:40 Dose: 25 mls/hr Midazolam 100 mg/100ml in NS (Midazolam 100 Mg/100ml In Ns) 100 mg in 100 mls @ 7 mls/hr IV .[id number] PRN; Protocol PRN Reason: Seizure activity Last Admin: 05/22/18 16:05 Dose: 7 mg/hr, 7 mls/hr Propofol (Diprivan) 1,000 mg in 100 mls @ 1.796 mls/hr IV .Q24H PRN; Protocol PRN Reason: TITRATE PER MD ORDER Last Admin: 05/22/18 09:11 Dose: 5 mcg/kg/min, 1.796 mls/hr NOREPINEPHRINE BIT/0.9 % NACL (Levophed 4 Mg/ 250 Ml Ns Premixed) 4 mg in 250 mls @ 15 mls/hr IV .[id number] PRN; Protocol PRN Reason: TITRATE PER MD ORDER Levetiracetam 750 mg/ Sodium (Chloride) 107.5 mls @ 322.5 mls/hr IV Q12H [facility] Last Admin: 05/26/18 05:38 Dose: 322.5 mls/hr Insulin Detemir (Levemir) 10 unit SC Q12H PATTI Last Admin: 05/26/18 10:25 Dose: 10 u Insulin Human Lispro (Humalog Low) 0 units SC ACHS [facility]; Protocol Last Admin: 05/26/18 10:15 Dose: Not Given Levalbuterol HCl (Xopenex) 1.25 mg IH [id number] [facility] Last Admin: 05/26/18 07:21 Dose: 1.25 mg Losartan Potassium (Cozaar) 100 mg PO QPM PATTI Last Admin: 05/24/18 17:13 Dose: 100 mg Metoclopramide HCl (Reglan) 5 mg PO HS PATTI Last Admin: 05/25/18 21:04 Dose: 5 mg Metoprolol Tartrate (Lopressor) 25 mg PO BID PATTI Ondansetron HCl (Zofran Tab) 4 mg PO Q8 PATTI Last Admin: 05/26/18 05:39 Dose: 4 mg Pantoprazole Sodium (Protonix Inj) 40 mg IVP DAILY [facility] Last Admin: 05/26/18 10:24 Dose: 40 mg Sodium Bicarbonate (Sodium Bicarbonate Tab) 650 mg NG BID [facility] Venlafaxine HCl (Effexor Xr) 75 mg PO DAILY [facility] Last Admin: 05/26/18 10:16 Dose: Not Given - Labs Labs: 05/26/18 06:30 05/26/18 06:30 PT 14.3 SECONDS (9.4-12.5) H 05/21/18 10:15 INR 1.24 05/21/18 10:15 APTT 27.9 Seconds (25.1-36.5) 05/21/18 10:15 - Constitutional Appears: Chronically Ill, Other (intubated, does not follow commands) - Head Exam Head Exam: NORMAL INSPECTION - ENT Exam Additional comments: ET tube in place - Neck Exam Additional comments: right IJ TLC in place - Respiratory Exam Respiratory Exam: Decreased Breath Sounds - Cardiovascular Exam Cardiovascular Exam: +S1, +S2 - GI/Abdominal Exam GI & Abdominal Exam: Soft. absent: Tenderness Assessment and Plan - Assessment and Plan (Free Text) Plan: Assessment systemic inflammatory response syndrome after seizure episode, with VDRF R/O sepsis due to aspiration pneumonia, on top of possible PRES or acute cerebral infarct - new onset fever R/O new HAP or line-related infection history of HCAP history of sepsis due to right lower lobe HCAP, clinically improved and S/P treatment history of UTI with Klebsiella oxytoca gastroparesis HTN DM history of TIA history of esophageal ulcers S/P cholecystectomy S/P S/P hysterectomy S/P right foot partial amputation Plan changed Zosyn to Zyvox and Cefepime and will give a dose of IV Daptomycin pending blood cx, sputum cx, repeat CXR discussed with Dr. Dent Neurology doing video EEG to look for seizure activity overall prognosis is poor
[2018-05-27] MEDS ORDERED: DAPTOmycin 500 mg Inj (Cubicin) IV ONE (11:15)
--- NOTE | 2018-05-27 11:28 | PCM.VEEG ---
Video EEG - Procedure Start Date: 05/26/18 Start Time: 07:50 End Date: 05/27/18 End Time: 07:20 Technical Summary: DATA ACQUISITION: This was a multichannel inpatient video-EEG, a minimum of 22 channels were uti lized, performed in accordance with recommendations specified by the [place] [employer] (Chaya Guardado et al. ACNS Guideline 1: Minimum Technical Requirements for Performing Clinical Electroencephalography. Journal of Clinical Neurophysiology 2016;33:303-7). The 10-20 electrode placement system was utilized in accordance with guidelines detailed by the International Federation of Clinical Neurophysiology (Josue Collazo et al. The Ten-Twenty Electrode System of the International Federation. Recommendations for the Practice of Clinical Neurophysiology: Guidelines of the International Federation of Clinical Physiology 1999; EEG Suppl. 52.). DATA REVIEW / SPIKE DETECTION / DIGITAL ANALYSIS: The entire EEG was scanned and reviewed. Synchronized audio and video recording were reviewed at the time of each alarm and whenever an abnormality or suspicious activity was noted. The entire recording was analyzed utilizing an automated digital spike and seizure analysis program and all automatic spike and seizure detections were manually reviewed. A compressed spectral array was displayed and reviewed alongside the raw EEG tracings. In addition, further analysis of the EEG was performed when abnormalities were identified, including montage changes, dipole source localization, and frequency band identification. Video portion of the study is necessary to correlate abnormal EEG activity with clinical behavior. This study was attended 24 hours per day. . - Interpretation Description of the study: Indication; Status Epilepticus EEG Finding during wakefulness: During most of the study was not discernible awake EEG background, during this time the EEG showed diffuse bilateral attenuation with frequencies in the 4 to 5 Hz. When she was stimulated there was reactivity of the EEG with frequencies going up to 6 to 7 Hz range, the EEG was still very attenuated. EEG Finding during sleep: Normal sleep architecture was not seen, Interictal non-epileptiform abnormalities: Left temporal intermittent slowing, 4 to5 Hz slowing Interictal epileptiform abnormalities: Frequent left temporal spikes and sharps maximally at F7, seen in isolation. Ictal epileptiform abnormalities: No seizures - Impression Impression: This is an abnormal video EEG, monitoring study, due to the presence of: 1- Moderate background slowing/attenuation, improving. 2- Left temporal interictal epileptifrom discharges 3- Left temporal slowing. No seizures Not in status epilepticus. 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 The findings are also in keeping with a moderate non specific diffuse disturbance of cortical activity. This is in keeping with a diffuse gerardo matter dysfunction. The findings do not suggest a specific etiology. Like it was described before, in a patient with acute alter mental status, other etiologies besides epilepsy are possible, like herpes encephalitis, this needs to be correlated clinically, with CSF analysis as well as Brain MRI, if clinically warranted.
--- NOTE | 2018-05-27 12:42 | PN ---
DATE: 05/27/2018 SUBJECTIVE: I saw her in the intensive care unit this morning. She is on the ventilator bed though she is breathing on her own. MEDICATIONS: She is on Bentyl, Catapres, Cozaar, Diprivan, Effexor, insulin Levemir, Keppra IV, Levophed, Lopressor, Maxipime IV, midazolam, Neurontin, Norvasc, Protonix, Reglan, Xopenex, Zofran, and Zyvox IV. I asked her to open up her eyes and she did open up her eyes and was looking. PHYSICAL EXAMINATION: VITAL SIGNS: Temperature is 100.4, pulse 103, respiratory rate 18, O2 saturations 99%, and blood pressure 160/89. HEENT: Head is atraumatic and normocephalic. She has got the EEG on. HEART: Regular rate. LUNGS: Decreased breath sounds, but clear. ABDOMEN: Soft. EXTREMITIES: No edema. She is here for a watershed stroke plus a PRES. LABORATORY DATA: She has white count of 9.7, hemoglobin 8.2, hematocrit 26.4, platelets are 255. If the hemoglobin drops below 8, I will transfuse her. Sodium 148, potassium 3.3, I will replace the potassium, BUN 20, creatinine 0.9, GFR is greater than 60, sugar is 135, calcium is 8.2, total bili is 0.1, AST is 16, ALT is 26, alk phos is 165, total protein is 5.1. ASSESSMENT AND PLAN: She has multiple problems. She had seizures. She had a stroke. 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 There is a possibility of a long-term acute care, but is hopeful that she might improve from this. Continue aggressive treatment and care. Replace electrolytes. Josafat Dent DO
--- NOTE | 2018-05-27 15:27 | PN ---
DATE: 05/27/2018 SUBJECTIVE: The patient was seen and examined in intensive care unit on the ventilator. Case discussed with the ICU team and Respiratory Therapy. The patient's current ventilator mode is CPAP; however, due to unchanged mental status with probably severe anoxic encephalopathy, she cannot be extubated. PHYSICAL EXAMINATION: VITAL SIGNS: Stable except for the temperature, which is elevated to 100.8. HEAD: Normocephalic and atraumatic. NECK: Supple with no jugular vein distentions. PULMONARY: Diminished breath sounds at both lung bases with no rhonchi, rales or wheezing. : Within normal limits GASTROINTESTINAL: Soft, nontender with no organomegaly. EXTREMITIES: No pedal edema. NEUROLOGIC: No memory loss SKIN: Dry; intact DIAGNOSTIC DATA: I personally reviewed her chest x-ray. There is no report available yet, but the images reveal infiltrates in right parahilar and right lower lobe area. The left lung is clear. ASSESSMENT: 1. Acute respiratory failure. 2. Right pneumonia, left side clear. 3. Severe encephalopathy. 4. Seizure disorder. 5. Chronic obstructive pulmonary disease. PLAN: The patient remains intubated due to encephalopathy. Her pulmonary status has improved and chest x-ray has improved on the left; however, the right side still shows pneumonic infiltrate. She should continue with current settings, inhalation therapy and current antibiotic coverage. Tracheostomy will become necessary since the mental status is not showing improvement. All these findings were discussed with Respiratory and intensive care unit team. Jose G Ibrahim MD MTDD
[2018-05-27] MEDS ORDERED: Digoxin 500 mcg/2ml (0.5 mg/2ml) Inj IVP ONE (16:09)
[2018-05-28] MEDS: Levalbuterol 1.25 MG/3 ML Inhal Soln UD IH SCH ×4 (02:37→19:51)
[2018-05-28] MEDS: Nicardipine 20 MG/200 ML 20 MG/200 ML BAG IV PRN ×7 (03:20→22:12)
[2018-05-28 06:55] LABS: ARTERIAL BLOOD GAS HCO3 13.3 mmol/L (21-28); ARTERIAL BLOOD GAS HEMOGLOBIN 6.4 g/dL (11.7-17.4); ARTERIAL BLOOD GAS O2 CAPACITY 9.2 mL/dl (16-24); ARTERIAL BLOOD GAS O2 SAT 97.6 % (95-98); ARTERIAL BLOOD GAS PCO2 22 mm/Hg (35-45); ARTERIAL BLOOD GAS PH 7.39 (7.35-7.45)
[2018-05-28] MEDS: Cefepime IV 2 gm in NS 2 GM/100 ML BAG IVPB SCH ×3 (07:00→22:08)
[2018-05-28 07:51] LABS: BASO # 0.02 K/mm3 (0.0-2.0); BASO % 0.2 % (0.0-3.0); EOS # 0.3 (0.0-0.7); EOS % 2.3 % (1.5-5.0); GRAN # 9.78 (1.4-6.5); GRAN % 86.5 % (50.0-68.0); HEMOGLOBIN 9.2 g/dL (12.0-16.0); LYMPH % 8.4 % (22.0-35.0); MEAN CELL VOLUME 81.5 fl (80.0-105.0); MEAN CORPUSCULAR HEMOGLOBIN 25.3 pg (25.0-35.0); MEAN CORPUSCULAR HGB CONC 31.1 g/dl (31.0-37.0); MEAN PLATELET VOLUME 9.5 fl (7.0-11.0); MONO # 0.3 (0.1-0.6); MONO % 2.6 % (1.0-6.0); RBC 3.63 10^6/uL (3.5-6.1); RED CELL DISTRIBUTION WIDTH 15.3 % (11.5-14.5); WHITE BLOOD COUNT 11.3 10^3/uL (4.5-11.0)
[2018-05-28 08:13] LABS: ALB/GLOB RATIO 0.9 (1.1-1.8); ALBUMIN 2.6 g/dL (3.0-4.8); ALT/SGPT 23 U/L (7-56); AST/SGOT 27 U/L (14-36); BLOOD UREA NITROGEN 20 mg/dL (7-21); GFR NON-AFRICAN AMERICAN > 60
[2018-05-28] MEDS: Insulin Lispro (humaLOG) LOW Coverage SC SCH ×3 (08:16→22:03)
--- NOTE | 2018-05-28 08:59 | CP.CCUPN ---
<Jose Isidro - Last Filed: 05/28/18 13:37> CCU Subjective - Physician Review Subjective (Free Text): Jose Isidro PGY-1 Progress Note for ICU Patient seen and evaluated at bedside. No acute events reported overnight. Patient intubated, off sedation. Tmax overnight 100.0. Patient spontaneously opens her eyes and has spontaneous movements of her extremities. Further ROS unable to be obtained due to clinical condition. CCU Objective - Vital Signs / Intake & Output Vital Signs (Last 4 hours): Vital Signs Temp Pulse BP Pulse Ox 05/28/18 08:30 99.3 F 118 H 137/64 96 05/28/18 08:00 99.3 F 103 H 145/71 94 L 05/28/18 07:30 99.7 F H 109 H 161/89 H 92 L 05/28/18 07:01 100.0 F H 107 H 153/88 H 95 05/28/18 07:00 100.0 F H 115 H 98 05/28/18 06:30 100.0 F H 90 137/63 94 L 05/28/18 06:00 99.9 F H 89 134/68 97 05/28/18 05:30 100.0 F H 93 H 140/68 97 05/28/18 05:00 99.9 F H 124 H 160/73 H 94 L Intake and Output (Last 8hrs): Intake & Output 05/27/18 05/28/18 05/28/18 22:59 06:59 14:59 Intake Total 3320 200 2650 Output Total 1540 650 Balance 7330 992 3394 Weight 68.855 kg Intake: IV 9467 791 6691 abx 600 500 cardene 450 600 keppra 100 100 Tube Feeding 570 600 Other 1200 600 Output: Gastric Amount 40 Nares 40 Urine 1500 650 Urethral (Wan) 1500 650 Other: # Bowel Movements 1 1 - Physical Exam Head: Positive for: Atraumatic, Normocephalic Pupils: Positive for: Sluggish Extroacular Muscles: Positive for: EOMI Conjunctiva: Positive for: Normal Mouth: Positive for: Moist Mucous Membranes Nose (External): Positive for: Other (NGT in place) Neck: Positive for: Normal Range of Motion Respiratory/Chest: Positive for: Clear to Auscultation, Good Air Exchange. Negative for: Respiratory Distress, Accessory Muscle Use Cardiovascular: Positive for: Regular Rate and Rhythm, Normal S1, S2. Negative for: Murmurs Abdomen: Negative for: Tenderness, Distention, Peritoneal Signs Back: Positive for: Normal Inspection Upper Extremity: Positive for: Normal Inspection. Negative for: Cyanosis, Edema Lower Extremity: Positive for: Other (Right foot amputation noted). Negative for: Edema Neurological: Positive for: Motor Func Grossly Intact. Negative for: CN II-XII Intact, Speech Normal Skin: Positive for: Warm, Dry, Normal Color. Negative for: Rashes Psychiatric: Positive for: Alert, Normal Insight, Normal Concentration. Negative for: Oriented x 3 - Medications Active Medications: Active Medications Generic Name Dose Route Start Last Admin Trade Name Freq PRN Reason Stop Dose Admin Amlodipine Besylate 10 mg 05/24/18 11:13 05/27/18 09:17 Norvasc PO 10 mg DAILY PATTI Administration Clonidine HCl 1 patch 05/24/18 11:15 Catapres-Tts2 0.2 Mg/24 Hr TD Q7D@0700 PATTI Dicyclomine HCl 10 mg 05/19/18 18:00 05/27/18 17:38 Bentyl PO 10 mg TID PATTI Administration Ergocalciferol 1 cap 05/22/18 07:15 05/22/18 08:19 Drisdol 50,000 Intl Units Cap PO 1 cap Q7D PATTI Administration Gabapentin 300 mg 05/19/18 18:00 05/27/18 17:38 Neurontin PO 300 mg BID PATTI Administration Protocol Midazolam 100 mg/100ml in NS 100 mg in 100 mls @ 7 mls/hr 05/20/18 08:31 05/22/18 16:05 Midazolam 100 Mg/100ml In Ns IV 7 mg/hr .[id number] PRN 7 mls/hr Seizure activity Administration Protocol 7 MG/HR Propofol 1,000 mg in 100 mls @ 1.796 mls/hr 05/20/18 10:44 05/22/18 09:11 Diprivan IV 5 mcg/kg/min .Q24H PRN 1.796 mls/hr TITRATE PER MD ORDER Administration Protocol 5 MCG/KG/MIN NOREPINEPHRINE BIT/0.9 % NACL 4 mg in 250 mls @ 15 mls/hr 05/21/18 12:53 Levophed 4 Mg/ 250 Ml Ns Premixed IV .[id number] PRN TITRATE PER MD ORDER Protocol 4 MCG/MIN Levetiracetam 750 mg/ Sodium 107.5 mls @ 322.5 mls/hr 05/22/18 18:00 05/28/18 07:00 Chloride IV 322.5 mls/hr Q12H PATTI Administration Cefepime HCl 2 gm in 100 mls @ 100 mls/hr 05/27/18 08:45 05/28/18 07:00 Maxipime 2gm IVPB 06/01/18 08:46 100 mls/hr Q8 PATTI Administration Protocol Linezolid 600 mg in 300 mls @ 200 mls/hr 05/27/18 10:00 05/27/18 21:26 Zyvox 600mg/300ml D5w IVPB 06/03/18 10:01 200 mls/hr Q12 PATTI Administration Protocol Nicardipine HCl 20 mg in 200 mls @ 50 mls/hr 05/27/18 09:35 05/28/18 08:38 Cardene Iv Premix IV 10 mg/hr .Q4H PRN 100 mls/hr TITRATE PER MD ORDER Titration Protocol 5 MG/HR Insulin Detemir 12 unit 05/28/18 10:00 Levemir SC Q12H PATTI Insulin Human Lispro 0 units 05/20/18 07:30 05/28/18 08:16 Humalog Low SC 3 u ACHS PATTI Administration Protocol Levalbuterol HCl 1.25 mg 05/20/18 08:00 05/28/18 08:04 Xopenex IH 1.25 mg [id number] PATTI Administration Losartan Potassium 100 mg 05/24/18 18:00 05/24/18 17:13 Cozaar PO 100 mg QPM PATTI Administration Metoclopramide HCl 5 mg 05/19/18 22:00 05/27/18 21:19 Reglan PO 5 mg HS PATTI Administration Metoprolol Tartrate 25 mg 05/26/18 18:00 05/27/18 17:39 Lopressor PO 25 mg BID PATTI Administration Ondansetron HCl 4 mg 05/19/18 22:00 05/26/18 05:39 Zofran Tab PO 4 mg Q8 PATTI Administration Pantoprazole Sodium 40 mg 05/21/18 10:00 05/27/18 09:16 Protonix Inj IVP 40 mg DAILY PATTI Administration Venlafaxine HCl 75 mg 05/20/18 10:00 05/27/18 09:20 Effexor Xr PO Not Given DAILY PATTI - Patient Studies Lab Studies: Microbiology Studies 05/27/18 10:20 Gram Stain - Final Sputum Lab Studies 05/28/18 05/28/18 05/28/18 Range/Units 07:30 07:30 07:20 WBC 11.3 H (4.5-11.0) 10^3/uL RBC 3.63 (3.5-6.1) 10^6/uL Hgb 9.2 L (12.0-16.0) g/dL Hct 29.6 L (36.0-48.0) % MCV 81.5 (80.0-105.0) fl MCH 25.3 (25.0-35.0) pg MCHC 31.1 (31.0-37.0) g/dl RDW 15.3 H (11.5-14.5) % Plt Count 305 (120.0-450.0) 10^3/uL MPV 9.5 (7.0-11.0) fl Gran % 86.5 H (50.0-68.0) % Lymph % (Auto) 8.4 L (22.0-35.0) % Lares % (Auto) 2.6 (1.0-6.0) % Eos % (Auto) 2.3 (1.5-5.0) % Baso % (Auto) 0.2 (0.0-3.0) % Gran # 9.78 H (1.4-6.5) Lymph # (Auto) 1.0 L (1.2-3.4) Lares # (Auto) 0.3 (0.1-0.6) Eos # (Auto) 0.3 (0.0-0.7) Baso # (Auto) 0.02 (0.0-2.0) K/mm3 pCO2 (35-45) mm/Hg pO2 (80-100) mm/Hg HCO3 (21-28) mmol/L ABG pH (7.35-7.45) ABG Total CO2 (22-28) mmol.L ABG O2 Saturation (95-98) % ABG O2 Content (15-23) ML/dl ABG Base Excess (-2.0-3.0) mmol/L ABG Hemoglobin (11.7-17.4) g/dL ABG Carboxyhemoglobin (0.5-1.5) % POC ABG HHb (Measured) (0-5) % ABG Methemoglobin (0.0-3.0) % ABG O2 Capacity (16-24) mL/dl Hgb O2 Saturation (95.0-98.0) % FiO2 % Sodium 141 (132-148) mmol/L Potassium 3.7 (3.6-5.0) mmol/L Chloride 111 H (98-107) mmol/L Carbon Dioxide 26 (21-33) mmol/L Anion Gap 8 L (10-20) BUN 20 (7-21) mg/dL Creatinine 0.9 (0.7-1.2) mg/dl Est GFR ( Amer) > 60 Est GFR (Non-Af Amer) > 60 POC Glucose (mg/dL) (65-110) mg/dL Random Glucose 322 H* D (70-110) mg/dL Calcium 8.0 L (8.4-10.5) mg/dL Magnesium (1.7-2.2) mg/dL Total Bilirubin 0.2 (0.2-1.3) mg/dL AST 27 (14-36) U/L ALT 23 (7-56) U/L Alkaline Phosphatase 177 H (38-126) U/L Total Creatine Kinase (35-230) U/L Total Protein 5.5 L (5.8-8.3) g/dL Albumin 2.6 L (3.0-4.8) g/dL Globulin 2.9 gm/dL Albumin/Globulin Ratio 0.9 L (1.1-1.8) Procalcitonin (0.19-0.49) NG/ML Urine Color (YELLOW) Urine Appearance (CLEAR) Urine pH (4.7-8.0) Ur Specific Snelling (1.005-1.035) Urine Protein (<30 mg/dL) mg/dL Urine Glucose (UA) (NEGATIVE) mg/dL Urine Ketones (NEGATIVE) mg/dL Urine Blood (NEGATIVE) Urine Nitrate (NEGATIVE) Urine Bilirubin (NEGATIVE) Urine Urobilinogen (<1 E.U./dL) E.U./dL Ur Leukocyte Esterase (NEGATIVE) Jennifer/uL Urine RBC (0-2) /hpf Urine WBC (0-6) /hpf Ur Epithelial Cells (0-5) /hpf Urine Other /hpf Stool Occult Blood Negative (NEGATIVE) Influenza Typ A,B (EIA) (NEGATIVE) 05/28/18 05/27/18 05/27/18 Range/Units 06:50 21:22 17:28 WBC (4.5-11.0) 10^3/uL RBC (3.5-6.1) 10^6/uL Hgb (12.0-16.0) g/dL Hct (36.0-48.0) % MCV (80.0-105.0) fl MCH (25.0-35.0) pg MCHC (31.0-37.0) g/dl RDW (11.5-14.5) % Plt Count (120.0-450.0) 10^3/uL MPV (7.0-11.0) fl Gran % (50.0-68.0) % Lymph % (Auto) (22.0-35.0) % Lares % (Auto) (1.0-6.0) % Eos % (Auto) (1.5-5.0) % Baso % (Auto) (0.0-3.0) % Gran # (1.4-6.5) Lymph # (Auto) (1.2-3.4) Lares # (Auto) (0.1-0.6) Eos # (Auto) (0.0-0.7) Baso # (Auto) (0.0-2.0) K/mm3 pCO2 22 L (35-45) mm/Hg pO2 118.0 H (80-100) mm/Hg HCO3 13.3 L (21-28) mmol/L ABG pH 7.39 (7.35-7.45) ABG Total CO2 14.0 L (22-28) mmol.L ABG O2 Saturation 97.6 (95-98) % ABG O2 Content 9.0 L (15-23) ML/dl ABG Base Excess -10.6 L (-2.0-3.0) mmol/L ABG Hemoglobin 6.4 L (11.7-17.4) g/dL ABG Carboxyhemoglobin 0.4 L (0.5-1.5) % POC ABG HHb (Measured) 2.4 (0-5) % ABG Methemoglobin 0.6 (0.0-3.0) % ABG O2 Capacity 9.2 L (16-24) mL/dl Hgb O2 Saturation 96.6 (95.0-98.0) % FiO2 35.0 % Sodium (132-148) mmol/L Potassium (3.6-5.0) mmol/L Chloride (98-107) mmol/L Carbon Dioxide (21-33) mmol/L Anion Gap (10-20) BUN (7-21) mg/dL Creatinine (0.7-1.2) mg/dl Est GFR ( Amer) Est GFR (Non-Af Amer) POC Glucose (mg/dL) 98 95 (65-110) mg/dL Random Glucose (70-110) mg/dL Calcium (8.4-10.5) mg/dL Magnesium (1.7-2.2) mg/dL Total Bilirubin (0.2-1.3) mg/dL AST (14-36) U/L ALT (7-56) U/L Alkaline Phosphatase (38-126) U/L Total Creatine Kinase (35-230) U/L Total Protein (5.8-8.3) g/dL Albumin (3.0-4.8) g/dL Globulin gm/dL Albumin/Globulin Ratio (1.1-1.8) Procalcitonin (0.19-0.49) NG/ML Urine Color (YELLOW) Urine Appearance (CLEAR) Urine pH (4.7-8.0) Ur Specific Snelling (1.005-1.035) Urine Protein (<30 mg/dL) mg/dL Urine Glucose (UA) (NEGATIVE) mg/dL Urine Ketones (NEGATIVE) mg/dL Urine Blood (NEGATIVE) Urine Nitrate (NEGATIVE) Urine Bilirubin (NEGATIVE) Urine Urobilinogen (<1 E.U./dL) E.U./dL Ur Leukocyte Esterase (NEGATIVE) Jennifer/uL Urine RBC (0-2) /hpf Urine WBC (0-6) /hpf Ur Epithelial Cells (0-5) /hpf Urine Other /hpf Stool Occult Blood (NEGATIVE) Influenza Typ A,B (EIA) (NEGATIVE) 05/27/18 05/27/18 05/27/18 Range/Units 12:05 12:04 09:55 WBC (4.5-11.0) 10^3/uL RBC (3.5-6.1) 10^6/uL Hgb (12.0-16.0) g/dL Hct (36.0-48.0) % MCV (80.0-105.0) fl MCH (25.0-35.0) pg MCHC (31.0-37.0) g/dl RDW (11.5-14.5) % Plt Count (120.0-450.0) 10^3/uL MPV (7.0-11.0) fl Gran % (50.0-68.0) % Lymph % (Auto) (22.0-35.0) % Lares % (Auto) (1.0-6.0) % Eos % (Auto) (1.5-5.0) % Baso % (Auto) (0.0-3.0) % Gran # (1.4-6.5) Lymph # (Auto) (1.2-3.4) Lares # (Auto) (0.1-0.6) Eos # (Auto) (0.0-0.7) Baso # (Auto) (0.0-2.0) K/mm3 pCO2 (35-45) mm/Hg pO2 (80-100) mm/Hg HCO3 (21-28) mmol/L ABG pH (7.35-7.45) ABG Total CO2 (22-28) mmol.L ABG O2 Saturation (95-98) % ABG O2 Content (15-23) ML/dl ABG Base Excess (-2.0-3.0) mmol/L ABG Hemoglobin (11.7-17.4) g/dL ABG Carboxyhemoglobin (0.5-1.5) % POC ABG HHb (Measured) (0-5) % ABG Methemoglobin (0.0-3.0) % ABG O2 Capacity (16-24) mL/dl Hgb O2 Saturation (95.0-98.0) % FiO2 % Sodium (132-148) mmol/L Potassium (3.6-5.0) mmol/L Chloride (98-107) mmol/L Carbon Dioxide (21-33) mmol/L Anion Gap (10-20) BUN (7-21) mg/dL Creatinine (0.7-1.2) mg/dl Est GFR ( Amer) Est GFR (Non-Af Amer) POC Glucose (mg/dL) 136 H (65-110) mg/dL Random Glucose (70-110) mg/dL Calcium (8.4-10.5) mg/dL Magnesium (1.7-2.2) mg/dL Total Bilirubin (0.2-1.3) mg/dL AST (14-36) U/L ALT (7-56) U/L Alkaline Phosphatase (38-126) U/L Total Creatine Kinase 41 (35-230) U/L Total Protein (5.8-8.3) g/dL Albumin (3.0-4.8) g/dL Globulin gm/dL Albumin/Globulin Ratio (1.1-1.8) Procalcitonin 0.39 (0.19-0.49) NG/ML Urine Color (YELLOW) Urine Appearance (CLEAR) Urine pH (4.7-8.0) Ur Specific Snelling (1.005-1.035) Urine Protein (<30 mg/dL) mg/dL Urine Glucose (UA) (NEGATIVE) mg/dL Urine Ketones (NEGATIVE) mg/dL Urine Blood (NEGATIVE) Urine Nitrate (NEGATIVE) Urine Bilirubin (NEGATIVE) Urine Urobilinogen (<1 E.U./dL) E.U./dL Ur Leukocyte Esterase (NEGATIVE) Jennifer/uL Urine RBC (0-2) /hpf Urine WBC (0-6) /hpf Ur Epithelial Cells (0-5) /hpf Urine Other /hpf Stool Occult Blood (NEGATIVE) Influenza Typ A,B (EIA) (NEGATIVE) 05/27/18 05/27/18 05/27/18 Range/Units 09:10 09:10 06:30 WBC (4.5-11.0) 10^3/uL RBC (3.5-6.1) 10^6/uL Hgb (12.0-16.0) g/dL Hct (36.0-48.0) % MCV (80.0-105.0) fl MCH (25.0-35.0) pg MCHC (31.0-37.0) g/dl RDW (11.5-14.5) % Plt Count (120.0-450.0) 10^3/uL MPV (7.0-11.0) fl Gran % (50.0-68.0) % Lymph % (Auto) (22.0-35.0) % Lares % (Auto) (1.0-6.0) % Eos % (Auto) (1.5-5.0) % Baso % (Auto) (0.0-3.0) % Gran # (1.4-6.5) Lymph # (Auto) (1.2-3.4) Lares # (Auto) (0.1-0.6) Eos # (Auto) (0.0-0.7) Baso # (Auto) (0.0-2.0) K/mm3 pCO2 (35-45) mm/Hg pO2 (80-100) mm/Hg HCO3 (21-28) mmol/L ABG pH (7.35-7.45) ABG Total CO2 (22-28) mmol.L ABG O2 Saturation (95-98) % ABG O2 Content (15-23) ML/dl ABG Base Excess (-2.0-3.0) mmol/L ABG Hemoglobin (11.7-17.4) g/dL ABG Carboxyhemoglobin (0.5-1.5) % POC ABG HHb (Measured) (0-5) % ABG Methemoglobin (0.0-3.0) % ABG O2 Capacity (16-24) mL/dl Hgb O2 Saturation (95.0-98.0) % FiO2 % Sodium (132-148) mmol/L Potassium (3.6-5.0) mmol/L Chloride (98-107) mmol/L Carbon Dioxide (21-33) mmol/L Anion Gap (10-20) BUN (7-21) mg/dL Creatinine (0.7-1.2) mg/dl Est GFR ( Amer) Est GFR (Non-Af Amer) POC Glucose (mg/dL) (65-110) mg/dL Random Glucose (70-110) mg/dL Calcium (8.4-10.5) mg/dL Magnesium 1.9 (1.7-2.2) mg/dL Total Bilirubin (0.2-1.3) mg/dL AST (14-36) U/L ALT (7-56) U/L Alkaline Phosphatase (38-126) U/L Total Creatine Kinase (35-230) U/L Total Protein (5.8-8.3) g/dL Albumin (3.0-4.8) g/dL Globulin gm/dL Albumin/Globulin Ratio (1.1-1.8) Procalcitonin (0.19-0.49) NG/ML Urine Color Light yellow (YELLOW) Urine Appearance Clear (CLEAR) Urine pH 6.5 (4.7-8.0) Ur Specific Snelling 1.025 (1.005-1.035) Urine Protein 100 H (<30 mg/dL) mg/dL Urine Glucose (UA) Negative (NEGATIVE) mg/dL Urine Ketones Negative (NEGATIVE) mg/dL Urine Blood Small H (NEGATIVE) Urine Nitrate Negative (NEGATIVE) Urine Bilirubin Negative (NEGATIVE) Urine Urobilinogen 0.2 (<1 E.U./dL) E.U./dL Ur Leukocyte Esterase Negative (NEGATIVE) Jennifer/uL Urine RBC 1 - 3 H (0-2) /hpf Urine WBC 1 - 3 (0-6) /hpf Ur Epithelial Cells 0 - 2 (0-5) /hpf Urine Other Uyeast /hpf Stool Occult Blood (NEGATIVE) Influenza Typ A,B (EIA) Negative for flu a/b (NEGATIVE) Laboratory Results - last 24 hr 05/27/18 05/27/18 05/27/18 06:30 09:10 09:10 WBC RBC Hgb Hct MCV MCH MCHC RDW Plt Count MPV Gran % Lymph % (Auto) Lares % (Auto) Eos % (Auto) Baso % (Auto) Gran # Lymph # (Auto) Lares # (Auto) Eos # (Auto) Baso # (Auto) pCO2 pO2 HCO3 ABG pH ABG Total CO2 ABG O2 Saturation ABG O2 Content ABG Base Excess ABG Hemoglobin ABG Carboxyhemoglobin POC ABG HHb (Measured) ABG Methemoglobin ABG O2 Capacity Hgb O2 Saturation FiO2 Sodium Potassium Chloride Carbon Dioxide Anion Gap BUN Creatinine Est GFR ( Amer) Est GFR (Non-Af Amer) POC Glucose (mg/dL) Random Glucose Calcium Magnesium 1.9 Total Bilirubin AST ALT Alkaline Phosphatase Total Creatine Kinase Total Protein Albumin Globulin Albumin/Globulin Ratio Procalcitonin Urine Color Light yellow Urine Appearance Clear Urine pH 6.5 Ur Specific Snelling 1.025 Urine Protein 100 H Urine Glucose (UA) Negative Urine Ketones Negative Urine Blood Small H Urine Nitrate Negative Urine Bilirubin Negative Urine Urobilinogen 0.2 Ur Leukocyte Esterase Negative Urine RBC 1 - 3 H Urine WBC 1 - 3 Ur Epithelial Cells 0 - 2 Urine Other Uyeast Stool Occult Blood Influenza Typ A,B (EIA) Negative for flu a/b 05/27/18 05/27/18 05/27/18 09:55 12:04 12:05 WBC RBC Hgb Hct MCV MCH MCHC RDW Plt Count MPV Gran % Lymph % (Auto) Lares % (Auto) Eos % (Auto) Baso % (Auto) Gran # Lymph # (Auto) Lares # (Auto) Eos # (Auto) Baso # (Auto) pCO2 pO2 HCO3 ABG pH ABG Total CO2 ABG O2 Saturation ABG O2 Content ABG Base Excess ABG Hemoglobin ABG Carboxyhemoglobin POC ABG HHb (Measured) ABG Methemoglobin ABG O2 Capacity Hgb O2 Saturation FiO2 Sodium Potassium Chloride Carbon Dioxide Anion Gap BUN Creatinine Est GFR ( Amer) Est GFR (Non-Af Amer) POC Glucose (mg/dL) 136 H Random Glucose Calcium Magnesium Total Bilirubin AST ALT Alkaline Phosphatase Total Creatine Kinase 41 Total Protein Albumin Globulin Albumin/Globulin Ratio Procalcitonin 0.39 Urine Color Urine Appearance Urine pH Ur Specific Snelling Urine Protein Urine Glucose (UA) Urine Ketones Urine Blood Urine Nitrate Urine Bilirubin Urine Urobilinogen Ur Leukocyte Esterase Urine RBC Urine WBC Ur Epithelial Cells Urine Other Stool Occult Blood Influenza Typ A,B (EIA) 05/27/18 05/27/18 05/28/18 17:28 21:22 06:50 WBC RBC Hgb Hct MCV MCH MCHC RDW Plt Count MPV Gran % Lymph % (Auto) Lares % (Auto) Eos % (Auto) Baso % (Auto) Gran # Lymph # (Auto) Lares # (Auto) Eos # (Auto) Baso # (Auto) pCO2 22 L pO2 118.0 H HCO3 13.3 L ABG pH 7.39 ABG Total CO2 14.0 L ABG O2 Saturation 97.6 ABG O2 Content 9.0 L ABG Base Excess -10.6 L ABG Hemoglobin 6.4 L ABG Carboxyhemoglobin 0.4 L POC ABG HHb (Measured) 2.4 ABG Methemoglobin 0.6 ABG O2 Capacity 9.2 L Hgb O2 Saturation 96.6 FiO2 35.0 Sodium Potassium Chloride Carbon Dioxide Anion Gap BUN Creatinine Est GFR ( Amer) Est GFR (Non-Af Amer) POC Glucose (mg/dL) 95 98 Random Glucose Calcium Magnesium Total Bilirubin AST ALT Alkaline Phosphatase Total Creatine Kinase Total Protein Albumin Globulin Albumin/Globulin Ratio Procalcitonin Urine Color Urine Appearance Urine pH Ur Specific Snelling Urine Protein Urine Glucose (UA) Urine Ketones Urine Blood Urine Nitrate Urine Bilirubin Urine Urobilinogen Ur Leukocyte Esterase Urine RBC Urine WBC Ur Epithelial Cells Urine Other Stool Occult Blood Influenza Typ A,B (EIA) 05/28/18 05/28/18 05/28/18 07:20 07:30 07:30 WBC 11.3 H RBC 3.63 Hgb 9.2 L Hct 29.6 L MCV 81.5 MCH 25.3 MCHC 31.1 RDW 15.3 H Plt Count 305 MPV 9.5 Gran % 86.5 H Lymph % (Auto) 8.4 L Lares % (Auto) 2.6 Eos % (Auto) 2.3 Baso % (Auto) 0.2 Gran # 9.78 H Lymph # (Auto) 1.0 L Lares # (Auto) 0.3 Eos # (Auto) 0.3 Baso # (Auto) 0.02 pCO2 pO2 HCO3 ABG pH ABG Total CO2 ABG O2 Saturation ABG O2 Content ABG Base Excess ABG Hemoglobin ABG Carboxyhemoglobin POC ABG HHb (Measured) ABG Methemoglobin ABG O2 Capacity Hgb O2 Saturation FiO2 Sodium 141 Potassium 3.7 Chloride 111 H Carbon Dioxide 26 Anion Gap 8 L BUN 20 Creatinine 0.9 Est GFR ( Amer) > 60 Est GFR (Non-Af Amer) > 60 POC Glucose (mg/dL) Random Glucose 322 H* D Calcium 8.0 L Magnesium Total Bilirubin 0.2 AST 27 ALT 23 Alkaline Phosphatase 177 H Total Creatine Kinase Total Protein 5.5 L Albumin 2.6 L Globulin 2.9 Albumin/Globulin Ratio 0.9 L Procalcitonin Urine Color Urine Appearance Urine pH Ur Specific Snelling Urine Protein Urine Glucose (UA) Urine Ketones Urine Blood Urine Nitrate Urine Bilirubin Urine Urobilinogen Ur Leukocyte Esterase Urine RBC Urine WBC Ur Epithelial Cells Urine Other Stool Occult Blood Negative Influenza Typ A,B (EIA) Radiology Impressions: Radiology Impressions Chest X-Ray 05/27/18 06:00 IMPRESSION: No significant change in right-sided perihilar infiltrate in the upper and lower lobe. Central lines and tubes unchanged Fingerstick Blood Sugar Results: 317 Review of Systems - Review of Systems Review of Systems: 12 point ROS unable to be obtained due to clinical condition. Critical Care Progress Note - Nutrition Nutrition: Nutrition Category Date Time Status NPO Diet [DIET] Diets 05/19/18 Dinner Ordered Assessment/Plan - Assessment and Plan (Free Text) Assessment: Ms. Monaco is a 57 year old female with PMHx of HTN, uncontrolled DM2 complicated by retinopathy/gastroparesis, MDD, LAUREN, and TIA/CVA who was admitted for evaluation and treatment of seizure like activity. Patient suspected of experiencing aspiration. She was intubated/sedated due to an inability to protect her airway. Currently off sedation. Neurology AMS 2/2 Status Epilepticus - 05/19/18 CT Head without Contrast- No acute findings - 05/20/2019 CT Head without Contrast- No evidence of acute intracranial hemorrhage mass effect or midline shift. No significant interval changes noted - 05/22/2018 Brain MRI without Contrast- There are large areas of restricted diffusion/prolonged T2 signal changes within the the watershed zones of the occipito parietal and parietal and posterior frontal regions predominately in volving the cortex.. Rule out watershed zone acute infarcts possibly related to prolonged seizures or hypertensive episode - 05/11/18 VEEG- moderate background slowing, left temporal interictal epile ptiform discharges, left temporal slowing - continue on keppra 750mg IV q12 - 05/27/18 VEEG shows improving slowing/attenuation, no seizures and not in status epilepticus. - continue sedation vacation - neurology consulted- appreciate recommendations- posterior reversible encephalopathy syndrome (PRES)- minimal improvement in mental status Cardiovascular: Hypertensive, Hx of HTN - continue clonidine 0.2mg/24 hours - continue amlodipine 10mg PO daily - Continue Nicardipine drip @ 5mcg/hr - Continue losartan 100mg PO daily as per cardio - cardiology consulted (Dr. Farmer)- appreciate recommendation. SVT- resolved - continue on lopressor 25mg PO BID with holding parameters - Digoxin 0.5 mg given yesterday. Begin Dig 0.25 mg daily with loading dose now Resp: Respiratory Failure s/p Seizure Aspiration - intubated - continue weaning protocol via pressure support - 05/28/18 CXR shows progression of bilateral infilatrates - head of bed > 35 degrees - conservative fluid management - continue oral hygiene - GI protonix and DVT prophylaxis- scds Aspiration Pneumonia, HAP, Severe Sepsis - 05/27/2018- CXR improving right sided perihilar infiltrate - abx changed to linezolid 600mg IV q12 and cefepime IV q8 - procalcitonin 0.39, and rapid flu negative - infectious disease consulted (Dr. Sales)- appreciate recommendations GI Hx of Gastroparesis - NPO - continue reglan 5mg mg PO QS - continue bentyl 10mg PO TID - continue jevity at 10 goal 30 - GI consulted (Dr. Zambrano)- appreciate recommendations GI ppx: - protonix 40mg PO daily Endo Hx DM - Levemir decreased to 12 units SC HS, BGs 130s - continue lispro insulin sliding scale low - fingersticks ACHS - maintain euglycemia - endocrinology consulted Dr Coe- appreciate recommendations Renal ANTONIO - likely pre-renal in nature, BUN creatinine- returned to normal range - monitor closely via BMP/Creatinine - nephrology consulted- appreciate recommendations Heme Anemia - microcytic - hemoglobin 9.2, improving - FOBT negative - serum iron- low, tibc- low, ferritin- wnl , folate- wnl, b12- elevated, anemia of chronic disease vs iron deficiency anemia - recommend starting iron supplements DVT Ppx - SCD Patient seen, case reviewed and plan approved by Dr. Martha Dow. Jose Isidro, PGY-1 <Michael Dow - Last Filed: 05/28/18 17:31> CCU Objective - Vital Signs / Intake & Output Vital Signs (Last 4 hours): Vital Signs Temp Pulse BP Pulse Ox 05/28/18 17:00 99.0 F 82 133/71 96 05/28/18 16:30 99.1 F 85 135/67 97 05/28/18 16:00 99.1 F 85 134/66 95 05/28/18 15:30 99.1 F 85 133/65 96 05/28/18 15:00 99.1 F 82 126/63 96 05/28/18 14:30 99.0 F 85 133/65 99 05/28/18 14:00 99.1 F 85 130/53 L 93 L Intake and Output (Last 8hrs): Intake & Output 05/28/18 05/28/18 05/28/18 06:59 14:59 22:59 Intake Total 200 3000 Output Total 650 Balance 200 2350 Weight 68.855 kg Intake: IV 200 1800 abx 500 cardene 600 keppra 100 Tube Feeding 600 Other 600 Output: Urine 650 Urethral (Wan) 650 Other: # Bowel Movements 1 - Medications Active Medications: Active Medications Generic Name Dose Route Start Last Admin Trade Name Freq PRN Reason Stop Dose Admin Amlodipine Besylate 10 mg 05/24/18 11:13 05/28/18 10:39 Norvasc PO 10 mg DAILY PATTI Administration Clonidine HCl 1 patch 05/24/18 11:15 Catapres-Tts2 0.2 Mg/24 Hr TD Q7D@0700 PATTI Dicyclomine HCl 10 mg 05/19/18 18:00 05/28/18 14:03 Bentyl PO 10 mg TID PATTI Administration Digoxin 0.25 mg 05/28/18 14:00 05/28/18 14:02 Lanoxin PO 0.25 mg 1400 PATTI Administration Ergocalciferol 1 cap 05/22/18 07:15 05/22/18 08:19 Drisdol 50,000 Intl Units Cap PO 1 cap Q7D PATTI Administration Gabapentin 300 mg 05/19/18 18:00 05/28/18 10:28 Neurontin PO 300 mg BID PATTI Administration Protocol Levetiracetam 750 mg/ Sodium 107.5 mls @ 322.5 mls/hr 05/22/18 18:00 05/28/18 07:00 Chloride IV 322.5 mls/hr Q12H PATTI Administration Cefepime HCl 2 gm in 100 mls @ 100 mls/hr 05/27/18 08:45 05/28/18 14:03 Maxipime 2gm IVPB 06/01/18 08:46 100 mls/hr Q8 PATTI Administration Protocol Linezolid 600 mg in 300 mls @ 200 mls/hr 05/27/18 10:00 05/28/18 10:27 Zyvox 600mg/300ml D5w IVPB 06/03/18 10:01 200 mls/hr Q12 PATTI Administration Protocol Nicardipine HCl 20 mg in 200 mls @ 50 mls/hr 05/27/18 09:35 05/28/18 12:35 Cardene Iv Premix IV 10 mg/hr .Q4H PRN 100 mls/hr TITRATE PER MD ORDER Administration Protocol 5 MG/HR Insulin Detemir 24 unit 05/28/18 18:00 Levemir SC BID PATTI Insulin Human Lispro 0 units 05/28/18 14:06 05/28/18 16:17 Humalog Low SC 4 unit ACHS PATTI Administration Protocol Levalbuterol HCl 1.25 mg 05/20/18 08:00 05/28/18 14:01 Xopenex IH 1.25 mg [id number] PATTI Administration Losartan Potassium 100 mg 05/24/18 18:00 05/24/18 17:13 Cozaar PO 100 mg QPM PATTI Administration Metoclopramide HCl 5 mg 05/19/18 22:00 05/27/18 21:19 Reglan PO 5 mg HS PATTI Administration Metoprolol Tartrate 25 mg 05/26/18 18:00 05/28/18 10:38 Lopressor PO 25 mg BID PATTI Administration Pantoprazole Sodium 40 mg 05/21/18 10:00 05/28/18 10:28 Protonix Inj IVP 40 mg DAILY PATTI Administration Venlafaxine HCl 75 mg 05/20/18 10:00 05/28/18 10:33 Effexor Xr PO 75 mg DAILY PATTI Administration - Patient Studies Lab Studies: Microbiology Studies 05/27/18 09:10 Urine Culture - Final Urine,Catheterized No Growth (<1,000 CFU/ML) 05/27/18 10:15 Blood Culture - Preliminary Blood-Venous NO GROWTH AFTER 24 HOURS 05/27/18 09:55 Blood Culture - Preliminary Blood-Venous NO GROWTH AFTER 24 HOURS 05/27/18 10:20 Gram Stain - Final Sputum Lab Studies 05/28/18 05/28/18 05/28/18 Range/Units 07:30 07:30 07:20 WBC 11.3 H (4.5-11.0) 10^3/uL RBC 3.63 (3.5-6.1) 10^6/uL Hgb 9.2 L (12.0-16.0) g/dL Hct 29.6 L (36.0-48.0) % MCV 81.5 (80.0-105.0) fl MCH 25.3 (25.0-35.0) pg MCHC 31.1 (31.0-37.0) g/dl RDW 15.3 H (11.5-14.5) % Plt Count 305 (120.0-450.0) 10^3/uL MPV 9.5 (7.0-11.0) fl Gran % 86.5 H (50.0-68.0) % Lymph % (Auto) 8.4 L (22.0-35.0) % Lares % (Auto) 2.6 (1.0-6.0) % Eos % (Auto) 2.3 (1.5-5.0) % Baso % (Auto) 0.2 (0.0-3.0) % Gran # 9.78 H (1.4-6.5) Lymph # (Auto) 1.0 L (1.2-3.4) Lares # (Auto) 0.3 (0.1-0.6) Eos # (Auto) 0.3 (0.0-0.7) Baso # (Auto) 0.02 (0.0-2.0) K/mm3 pCO2 (35-45) mm/Hg pO2 (80-100) mm/Hg HCO3 (21-28) mmol/L ABG pH (7.35-7.45) ABG Total CO2 (22-28) mmol.L ABG O2 Saturation (95-98) % ABG O2 Content (15-23) ML/dl ABG Base Excess (-2.0-3.0) mmol/L ABG Hemoglobin (11.7-17.4) g/dL ABG Carboxyhemoglobin (0.5-1.5) % POC ABG HHb (Measured) (0-5) % ABG Methemoglobin (0.0-3.0) % ABG O2 Capacity (16-24) mL/dl Hgb O2 Saturation (95.0-98.0) % FiO2 % Sodium 141 (132-148) mmol/L Potassium 3.7 (3.6-5.0) mmol/L Chloride 111 H (98-107) mmol/L Carbon Dioxide 26 (21-33) mmol/L Anion Gap 8 L (10-20) BUN 20 (7-21) mg/dL Creatinine 0.9 (0.7-1.2) mg/dl Est GFR ( Amer) > 60 Est GFR (Non-Af Amer) > 60 POC Glucose (mg/dL) (65-110) mg/dL Random Glucose 322 H* D (70-110) mg/dL Calcium 8.0 L (8.4-10.5) mg/dL Total Bilirubin 0.2 (0.2-1.3) mg/dL AST 27 (14-36) U/L ALT 23 (7-56) U/L Alkaline Phosphatase 177 H (38-126) U/L Total Protein 5.5 L (5.8-8.3) g/dL Albumin 2.6 L (3.0-4.8) g/dL Globulin 2.9 gm/dL Albumin/Globulin Ratio 0.9 L (1.1-1.8) Procalcitonin (0.19-0.49) NG/ML Stool Occult Blood Negative (NEGATIVE) 05/28/18 05/27/18 05/27/18 Range/Units 06:50 21:22 17:28 WBC (4.5-11.0) 10^3/uL RBC (3.5-6.1) 10^6/uL Hgb (12.0-16.0) g/dL Hct (36.0-48.0) % MCV (80.0-105.0) fl MCH (25.0-35.0) pg MCHC (31.0-37.0) g/dl RDW (11.5-14.5) % Plt Count (120.0-450.0) 10^3/uL MPV (7.0-11.0) fl Gran % (50.0-68.0) % Lymph % (Auto) (22.0-35.0) % Lares % (Auto) (1.0-6.0) % Eos % (Auto) (1.5-5.0) % Baso % (Auto) (0.0-3.0) % Gran # (1.4-6.5) Lymph # (Auto) (1.2-3.4) Lares # (Auto) (0.1-0.6) Eos # (Auto) (0.0-0.7) Baso # (Auto) (0.0-2.0) K/mm3 pCO2 22 L (35-45) mm/Hg pO2 118.0 H (80-100) mm/Hg HCO3 13.3 L (21-28) mmol/L ABG pH 7.39 (7.35-7.45) ABG Total CO2 14.0 L (22-28) mmol.L ABG O2 Saturation 97.6 (95-98) % ABG O2 Content 9.0 L (15-23) ML/dl ABG Base Excess -10.6 L (-2.0-3.0) mmol/L ABG Hemoglobin 6.4 L (11.7-17.4) g/dL ABG Carboxyhemoglobin 0.4 L (0.5-1.5) % POC ABG HHb (Measured) 2.4 (0-5) % ABG Methemoglobin 0.6 (0.0-3.0) % ABG O2 Capacity 9.2 L (16-24) mL/dl Hgb O2 Saturation 96.6 (95.0-98.0) % FiO2 35.0 % Sodium (132-148) mmol/L Potassium (3.6-5.0) mmol/L Chloride (98-107) mmol/L Carbon Dioxide (21-33) mmol/L Anion Gap (10-20) BUN (7-21) mg/dL Creatinine (0.7-1.2) mg/dl Est GFR ( Amer) Est GFR (Non-Af Amer) POC Glucose (mg/dL) 98 95 (65-110) mg/dL Random Glucose (70-110) mg/dL Calcium (8.4-10.5) mg/dL Total Bilirubin (0.2-1.3) mg/dL AST (14-36) U/L ALT (7-56) U/L Alkaline Phosphatase (38-126) U/L Total Protein (5.8-8.3) g/dL Albumin (3.0-4.8) g/dL Globulin gm/dL Albumin/Globulin Ratio (1.1-1.8) Procalcitonin (0.19-0.49) NG/ML Stool Occult Blood (NEGATIVE) 05/27/18 Range/Units 09:55 WBC (4.5-11.0) 10^3/uL RBC (3.5-6.1) 10^6/uL Hgb (12.0-16.0) g/dL Hct (36.0-48.0) % MCV (80.0-105.0) fl MCH (25.0-35.0) pg MCHC (31.0-37.0) g/dl RDW (11.5-14.5) % Plt Count (120.0-450.0) 10^3/uL MPV (7.0-11.0) fl Gran % (50.0-68.0) % Lymph % (Auto) (22.0-35.0) % Lares % (Auto) (1.0-6.0) % Eos % (Auto) (1.5-5.0) % Baso % (Auto) (0.0-3.0) % Gran # (1.4-6.5) Lymph # (Auto) (1.2-3.4) Lares # (Auto) (0.1-0.6) Eos # (Auto) (0.0-0.7) Baso # (Auto) (0.0-2.0) K/mm3 pCO2 (35-45) mm/Hg pO2 (80-100) mm/Hg HCO3 (21-28) mmol/L ABG pH (7.35-7.45) ABG Total CO2 (22-28) mmol.L ABG O2 Saturation (95-98) % ABG O2 Content (15-23) ML/dl ABG Base Excess (-2.0-3.0) mmol/L ABG Hemoglobin (11.7-17.4) g/dL ABG Carboxyhemoglobin (0.5-1.5) % POC ABG HHb (Measured) (0-5) % ABG Methemoglobin (0.0-3.0) % ABG O2 Capacity (16-24) mL/dl Hgb O2 Saturation (95.0-98.0) % FiO2 % Sodium (132-148) mmol/L Potassium (3.6-5.0) mmol/L Chloride (98-107) mmol/L Carbon Dioxide (21-33) mmol/L Anion Gap (10-20) BUN (7-21) mg/dL Creatinine (0.7-1.2) mg/dl Est GFR ( Amer) Est GFR (Non-Af Amer) POC Glucose (mg/dL) (65-110) mg/dL Random Glucose (70-110) mg/dL Calcium (8.4-10.5) mg/dL Total Bilirubin (0.2-1.3) mg/dL AST (14-36) U/L ALT (7-56) U/L Alkaline Phosphatase (38-126) U/L Total Protein (5.8-8.3) g/dL Albumin (3.0-4.8) g/dL Globulin gm/dL Albumin/Globulin Ratio (1.1-1.8) Procalcitonin 0.39 (0.19-0.49) NG/ML Stool Occult Blood (NEGATIVE) Laboratory Results - last 24 hr 05/27/18 05/27/18 05/27/18 09:55 17:28 21:22 WBC RBC Hgb Hct MCV MCH MCHC RDW Plt Count MPV Gran % Lymph % (Auto) Lares % (Auto) Eos % (Auto) Baso % (Auto) Gran # Lymph # (Auto) Lares # (Auto) Eos # (Auto) Baso # (Auto) pCO2 pO2 HCO3 ABG pH ABG Total CO2 ABG O2 Saturation ABG O2 Content ABG Base Excess ABG Hemoglobin ABG Carboxyhemoglobin POC ABG HHb (Measured) ABG Methemoglobin ABG O2 Capacity Hgb O2 Saturation FiO2 Sodium Potassium Chloride Carbon Dioxide Anion Gap BUN Creatinine Est GFR ( Amer) Est GFR (Non-Af Amer) POC Glucose (mg/dL) 95 98 Random Glucose Calcium Total Bilirubin AST ALT Alkaline Phosphatase Total Protein Albumin Globulin Albumin/Globulin Ratio Procalcitonin 0.39 Stool Occult Blood 05/28/18 05/28/18 05/28/18 06:50 07:20 07:30 WBC 11.3 H RBC 3.63 Hgb 9.2 L Hct 29.6 L MCV 81.5 MCH 25.3 MCHC 31.1 RDW 15.3 H Plt Count 305 MPV 9.5 Gran % 86.5 H Lymph % (Auto) 8.4 L Lares % (Auto) 2.6 Eos % (Auto) 2.3 Baso % (Auto) 0.2 Gran # 9.78 H Lymph # (Auto) 1.0 L Lares # (Auto) 0.3 Eos # (Auto) 0.3 Baso # (Auto) 0.02 pCO2 22 L pO2 118.0 H HCO3 13.3 L ABG pH 7.39 ABG Total CO2 14.0 L ABG O2 Saturation 97.6 ABG O2 Content 9.0 L ABG Base Excess -10.6 L ABG Hemoglobin 6.4 L ABG Carboxyhemoglobin 0.4 L POC ABG HHb (Measured) 2.4 ABG Methemoglobin 0.6 ABG O2 Capacity 9.2 L Hgb O2 Saturation 96.6 FiO2 35.0 Sodium Potassium Chloride Carbon Dioxide Anion Gap BUN Creatinine Est GFR ( Amer) Est GFR (Non-Af Amer) POC Glucose (mg/dL) Random Glucose Calcium Total Bilirubin AST ALT Alkaline Phosphatase Total Protein Albumin Globulin Albumin/Globulin Ratio Procalcitonin Stool Occult Blood Negative 05/28/18 07:30 WBC RBC Hgb Hct MCV MCH MCHC RDW Plt Count MPV Gran % Lymph % (Auto) Lares % (Auto) Eos % (Auto) Baso % (Auto) Gran # Lymph # (Auto) Lares # (Auto) Eos # (Auto) Baso # (Auto) pCO2 pO2 HCO3 ABG pH ABG Total CO2 ABG O2 Saturation ABG O2 Content ABG Base Excess ABG Hemoglobin ABG Carboxyhemoglobin POC ABG HHb (Measured) ABG Methemoglobin ABG O2 Capacity Hgb O2 Saturation FiO2 Sodium 141 Potassium 3.7 Chloride 111 H Carbon Dioxide 26 Anion Gap 8 L BUN 20 Creatinine 0.9 Est GFR ( Amer) > 60 Est GFR (Non-Af Amer) > 60 POC Glucose (mg/dL) Random Glucose 322 H* D Calcium 8.0 L Total Bilirubin 0.2 AST 27 ALT 23 Alkaline Phosphatase 177 H Total Protein 5.5 L Albumin 2.6 L Globulin 2.9 Albumin/Globulin Ratio 0.9 L Procalcitonin Stool Occult Blood Radiology Impressions: Radiology Impressions Chest X-Ray 05/28/18 06:00 IMPRESSION: Malpositioned endotracheal tube which is pulled back. Repositioning is recommended. Otherwise, stable tubes and lines. Progression of patchy bilateral infiltrates. Critical Care Progress Note - Nutrition Nutrition: Nutrition Category Date Time Status NPO Diet [DIET] Diets 05/19/18 Dinner Ordered Addendum Addendum: 05/28/18 17:31 ICU Attending Addendum Patient seen and examined. Case reviewed on round with housestaff. Agree with resident note above with the following additions/exceptions 57f with a hx of HTN, uncontrolled DM2 complicated by retinopathy/gastroparesis, MDD, LAUREN, and TIA/CVA who was admitted for evaluation and treatment of seizure like activity with concern for PRES as well. Neuro MRI revelas large areas of restricted diffusion/prolonged T2 signal changes within the the watershed zones of the occipito parietal and parietal and posterior frontal regions predominately involving the cortex. Suggests PRES or status epil dx To tx PRES, need to cont to control BP. On nicard drip will resume home losartan which was held due to ANTONIO now resolved. Would resume dig which helped control HR as well as given recent SVT episode yesterday empiric abx tx asp pna needs better gluc control, will f/u endo recs Rest of care above Michael Dow MD Pulmonary Critical Care Attending Critical Care Time: 33 mins
[2018-05-28] MEDS ORDERED: Insulin Detemir 100 units/ml Vial (Levemir) SC SCH ×2 (10:00→18:00)
[2018-05-28] MEDS ORDERED: Digoxin 0.05 mg/mL Elixir 5mL PO STA (10:02)
--- NOTE | 2018-05-28 10:23 | RAD ---
Date of service: 05/28/2018 HISTORY: f/u COMPARISON: Chest radiograph dated 05/27/2018. FINDINGS: LUNGS: Progression of patchy bilateral infiltrates. PLEURA: No significant pleural effusion identified, no pneumothorax apparent. CARDIOVASCULAR: Aortic atherosclerotic calcifications. Cardiomediastinal silhouette stably prominent. OSSEOUS STRUCTURES: Unchanged VISUALIZED UPPER ABDOMEN: Normal. OTHER FINDINGS: Endotracheal tube has pulled back above the clavicles. Enteric tube is unchanged. Right internal jugular access central venous catheter, unchanged. IMPRESSION: Malpositioned endotracheal tube which is pulled back. Repositioning is recommended. Otherwise, stable tubes and lines. Progression of patchy bilateral infiltrates.
[2018-05-28] MEDS: Linezolid 600 mg in D5W 300 ml 600 MG/300 ML BAG IVPB SCH ×2 (10:27→22:07)
[2018-05-28] MEDS: Venlafaxine 75 mg ER Cap PO SCH (10:33)
--- NOTE | 2018-05-28 11:20 | PN ---
DATE: 05/28/2018 SUBJECTIVE: Saw in the Intensive Care Unit. She is on the ventilator. She is not being sedated. Her eyes are opening, not really responding well. OBJECTIVE: VITAL SIGNS: She has a 99.3 temperature, 118 pulse, down to 103 pulse, 137/64 blood pressure, 96% O2 sat. HEENT: Head is atraumatic, normocephalic. Her eyes are open, not really looking at me. HEART: Regular rate. LUNGS: Decreased breath sounds. ABDOMEN: Soft. EXTREMITIES: No edema. MEDICATIONS: She is currently on Bentyl, Cardene, Catapres, Cozaar, Drisdol, Effexor, insulin, Lanoxin, Levemir, Keppra, Lopressor, Maxipime, Neurontin, Norvasc, Protonix, Reglan, Xopenex, Zyvox. LABORATORY DATA: She has 141 sodium, potassium 3.7, BUN is 20, creatinine 0.9, GFR is greater than 60, sugar 322, calcium is 8, total bili is 0.2, AST is 27, ALT is 23, alk phos 177. Total protein is 5.5. White count 7.3, hemoglobin 9.2, hematocrit 29.6, platelets are 305. She is being seen by the [facility], Infectious Disease, Cardiology, Pulmonary, Renal, Endocrinology. She is in deep trouble. She had respiratory failure, seizures, recurrence of ventricular tachycardia, history of diabetes mellitus, gastroparesis, watershed stroke with PRES secondary to prolonged seizure. Continue aggressive treatment and care in Intensive Care Unit. Josafat Dent DO
[2018-05-28] MEDS ORDERED: Insulin Lispro (humaLOG) MEDIUM Coverage SC SCH ×2 (12:23→16:30)
--- NOTE | 2018-05-28 12:35 | PN ---
DATE: 05/28/2018 CARDIOLOGY FOLLOWUP SUBJECTIVE: The patient remains on a ventilator. PHYSICAL EXAMINATION: VITAL SIGNS: Blood pressure 137/64, heart rate is in the 90s to 100s, sinus rhythm. No repeat of SVT noted. NECK: Negative JVD. LUNGS: Decreased breath sounds. HEART: Reveal S1 and S2. EXTREMITIES: Without change. LABORATORY DATA: Hemoglobin is 9.2. Chemistries, BUN and creatinine unremarkable. Glucose is 322. IMPRESSION: 1. No recurrence of supraventricular tachycardia. 2. Sepsis. 3. Altered mental status. 4. Respiratory failure. 5. Diabetes mellitus. 6. History of gastroparesis. Given these findings, we will give an extra dose of digoxin today and start a daily dose of digoxin to help prevent her recurrence of SVT. Carter Farmer MD
--- NOTE | 2018-05-28 13:21 | PN ---
DATE: 05/28/2018 LOCATION: ICU 128, room one. SUBJECTIVE: This is a 57-year-old female with recent uncontrolled type 2 insulin-requiring diabetes, presenting here with an acute grand mal seizure event and subsequent acute respiratory failure, currently endotracheally intubated and is now being followed closely for metabolic management. Her glycemic levels were optimal overnight with glucose values ranging from 95 to 98 mg/dL. However, this morning, the glucose level was elevated, most likely related to the withholding of the basal insulin once again by the nursing staff overnight with normal blood glucose values last night. The glucose value was 322 mg/dL this morning. Her chemistry showed a BUN of 20, sodium 141, potassium 3.7, chloride 111, CO2 of 26, glucose 322 and creatinine 0.9. RECOMMENDATIONS: So, at this time, we will continue the modified basal insulin given as Levemir at 12 units subcu every 12 hours at 10 a.m. and 10 p.m. daily as ordered. We will obtain serial chemistries and supplement accordingly as needed. We will continue also the low-dose correction scale using Humalog insulin as given. We will obtain serial chemistries accordingly. Tita Coe MD
[2018-05-28] MEDS: Digoxin 250 mcg (0.25 mg) Tab PO SCH (14:02)
--- NOTE | 2018-05-28 15:00 | CP.PCM.CON ---
<Atilio Cheney - Last Filed: 05/28/18 15:04> History of Present Illness - History of Present Illness History of Present Illness: ENT Consult for: Dr. Howard 57F with PMH of HTN, uncontrolled type 1 DM, complicated by retinopathy, polyneuropathy, vasculopathy, gastroparesis, prior TIA, depression/anxiety. Patient was initially admitted after witnessed seizure. ENT consulted for tracheostomy. As per nursing, patient has failed multiple weaning trials and was only able to tolerate CPAP for few minutes before desaturating. Patient's is at bedside and he states should patient fail to be weaned off vent support he and his family would like to move forward with tracheostomy. 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, cholecystectomy, appendectomy, hysterectomy, , hernia repair, right foot transmetatarsal amputation, I&D right thigh abscess All: Vanco, dilaudid, morphine Review of Systems - Review of Systems Systems not reviewed;Unavailable: Intubated Past Patient History - Infectious Disease Hx of Infectious Diseases: None - Tetanus Immunizations Tetanus Immunization: Unknown - Past Social History Smoking Status: Never Smoked - CARDIAC Hx Cardiac Disorders: Yes Hx Hypercholesterolemia: Yes Hx Hypertension: Yes Hx Peripheral Vascular Disease: Yes - PULMONARY Hx Respiratory Disorders: Yes Hx Chronic Obstructive Pulmonary Disease (COPD): Yes - NEUROLOGICAL Hx Neurological Disorder: Yes (syncope) HX Cerebrovascular Accident: Yes Hx Seizures: Yes Hx Transient Ischemic Attacks (TIA): Yes Other/Comment: diabetic neuropathy - HEENT Hx HEENT Problems: Yes Hx Cataracts: Yes (bilateral sx) - RENAL Hx Chronic Kidney Disease: No - ENDOCRINE/METABOLIC Hx Endocrine Disorders: Yes Hx Diabetes Mellitus Type 2: Yes - HEMATOLOGICAL/ONCOLOGICAL Hx Blood Disorders: Yes Hx Anemia: Yes (Blood Transfusion) Other/Comment: hypokalemia - INTEGUMENTARY Hx Dermatological Problems: Yes Other/Comment: abcess, r ft great toe crooked long toenails dry skin, multiple skin discoloratins r hand, redness to elbows, multiple small skin discolorations ble, fading bruises both knees - MUSCULOSKELETAL/RHEUMATOLOGICAL Hx Falls: Yes - GASTROINTESTINAL Hx Gastrointestinal Disorders: Yes Hx Gastroesophageal Reflux: Yes Other/Comment: gastroparesis, ibs. chronic abdominal pain - GENITOURINARY/GYNECOLOGICAL Hx Genitourinary Disorders: Yes Hx Incontinence: Yes - PSYCHIATRIC Hx Substance Use: No - SURGICAL HISTORY Hx Surgeries: Yes Hx Appendectomy: Yes Hx Cholecystectomy: Yes Hx Hysterectomy: Yes Hx Musculoskeletal Surgery: Yes (right transmetatarsal amputation) - ANESTHESIA Hx Anesthesia: Yes Hx Anesthesia Reactions: No Hx Malignant Hyperthermia: No Meds Allergies/Adverse Reactions: Allergies Allergy/AdvReac Type Severity Reaction Status Date / Time vancomycin AdvReac Intermediate RASH Verified 05/20/18 19:35 Narcotic/Dilaudid/Morphine AdvReac Intermediate SHORTNESS Uncoded 05/20/18 19:35 OF BREATH - Medications Medications: Current Medications Amlodipine Besylate (Norvasc) 10 mg PO DAILY [facility] Last Admin: 05/28/18 10:39 Dose: 10 mg Clonidine HCl (Catapres-Tts2 0.2 Mg/24 Hr) 1 patch TD Q7D@0700 PATTI Dicyclomine HCl (Bentyl) 10 mg PO TID [facility] Last Admin: 05/28/18 14:03 Dose: 10 mg Digoxin (Lanoxin) 0.25 mg PO 1400 [facility] Last Admin: 05/28/18 14:02 Dose: 0.25 mg Ergocalciferol (Drisdol 50,000 Intl Units Cap) 1 cap PO Q7D [facility] Last Admin: 05/22/18 08:19 Dose: 1 cap Gabapentin (Neurontin) 300 mg PO BID [facility]; Protocol Last Admin: 05/28/18 10:28 Dose: 300 mg Levetiracetam 750 mg/ Sodium (Chloride) 107.5 mls @ 322.5 mls/hr IV Q12H [facility] Last Admin: 05/28/18 07:00 Dose: 322.5 mls/hr Cefepime HCl (Maxipime 2gm) 2 gm in 100 mls @ 100 mls/hr IVPB Q8 PATTI; Protocol Stop: 06/01/18 08:46 Last Admin: 05/28/18 14:03 Dose: 100 mls/hr Linezolid (Zyvox 600mg/300ml D5w) 600 mg in 300 mls @ 200 mls/hr IVPB Q12 PATTI; Protocol Stop: 06/03/18 10:01 Last Admin: 05/28/18 10:27 Dose: 200 mls/hr Nicardipine HCl (Cardene Iv Premix) 20 mg in 200 mls @ 50 mls/hr IV .Q4H PRN; Protocol PRN Reason: TITRATE PER MD ORDER Last Admin: 05/28/18 12:35 Dose: 10 mg/hr, 100 mls/hr Insulin Detemir (Levemir) 24 unit SC BID [facility] Insulin Human Lispro (Humalog Low) 0 units SC ACHS [facility]; Protocol Levalbuterol HCl (Xopenex) 1.25 mg IH [id number] [facility] Last Admin: 05/28/18 14:01 Dose: 1.25 mg Losartan Potassium (Cozaar) 100 mg PO QPM [facility] Last Admin: 05/24/18 17:13 Dose: 100 mg Metoclopramide HCl (Reglan) 5 mg PO HS [facility] Last Admin: 05/27/18 21:19 Dose: 5 mg Metoprolol Tartrate (Lopressor) 25 mg PO BID [facility] Last Admin: 05/28/18 10:38 Dose: 25 mg Pantoprazole Sodium (Protonix Inj) 40 mg IVP DAILY [facility] Last Admin: 05/28/18 10:28 Dose: 40 mg Venlafaxine HCl (Effexor Xr) 75 mg PO DAILY [facility] Last Admin: 05/28/18 10:33 Dose: 75 mg Physical Exam - Constitutional Appears: Non-toxic - ENT Exam ENT Exam: Mucous Membranes Moist - Respiratory Exam Additional comments: intubated - Cardiovascular Exam Cardiovascular Exam: +S1, +S2 - GI/Abdominal Exam GI & Abdominal Exam: Soft - Skin Skin Exam: Dry, Intact Results - Vital Signs Recent Vital Signs: Last Vital Signs Temp 99.0 F 05/28/18 11:00 Pulse 78 05/28/18 11:00 Resp 18 05/27/18 07:18 BP 128/65 05/28/18 11:00 Pulse Ox 96 05/28/18 11:00 - Labs Result Diagrams: 05/28/18 07:30 05/28/18 07:30 Labs: Laboratory Results - last 24 hr 05/27/18 05/27/18 05/27/18 09:55 12:04 17:28 WBC RBC Hgb Hct MCV MCH MCHC RDW Plt Count MPV Gran % Lymph % (Auto) [place] % (Auto) Eos % (Auto) Baso % (Auto) Gran # Lymph # (Auto) [place] # (Auto) Eos # (Auto) Baso # (Auto) pCO2 pO2 HCO3 ABG pH ABG Total CO2 ABG O2 Saturation ABG O2 Content ABG Base Excess ABG Hemoglobin ABG Carboxyhemoglobin POC ABG HHb (Measured) ABG Methemoglobin ABG O2 Capacity Hgb O2 Saturation FiO2 Sodium Potassium Chloride Carbon Dioxide Anion Gap BUN Creatinine Est GFR ( Amer) Est GFR (Non-Af Amer) POC Glucose (mg/dL) 136 H 95 Random Glucose Calcium Total Bilirubin AST ALT Alkaline Phosphatase Total Protein Albumin Globulin Albumin/Globulin Ratio Procalcitonin 0.39 Stool Occult Blood 05/27/18 05/28/18 05/28/18 21:22 06:50 07:20 WBC RBC Hgb Hct MCV MCH MCHC RDW Plt Count MPV Gran % Lymph % (Auto) [place] % (Auto) Eos % (Auto) Baso % (Auto) Gran # Lymph # (Auto) [place] # (Auto) Eos # (Auto) Baso # (Auto) pCO2 22 L pO2 118.0 H HCO3 13.3 L ABG pH 7.39 ABG Total CO2 14.0 L ABG O2 Saturation 97.6 ABG O2 Content 9.0 L ABG Base Excess -10.6 L ABG Hemoglobin 6.4 L ABG Carboxyhemoglobin 0.4 L POC ABG HHb (Measured) 2.4 ABG Methemoglobin 0.6 ABG O2 Capacity 9.2 L Hgb O2 Saturation 96.6 FiO2 35.0 Sodium Potassium Chloride Carbon Dioxide Anion Gap BUN Creatinine Est GFR ( Amer) Est GFR (Non-Af Amer) POC Glucose (mg/dL) 98 Random Glucose Calcium Total Bilirubin AST ALT Alkaline Phosphatase Total Protein Albumin Globulin Albumin/Globulin Ratio Procalcitonin Stool Occult Blood Negative 05/28/18 05/28/18 07:30 07:30 WBC 11.3 H RBC 3.63 Hgb 9.2 L Hct 29.6 L MCV 81.5 MCH 25.3 MCHC 31.1 RDW 15.3 H Plt Count 305 MPV 9.5 Gran % 86.5 H Lymph % (Auto) 8.4 L [place] % (Auto) 2.6 Eos % (Auto) 2.3 Baso % (Auto) 0.2 Gran # 9.78 H Lymph # (Auto) 1.0 L [place] # (Auto) 0.3 Eos # (Auto) 0.3 Baso # (Auto) 0.02 pCO2 pO2 HCO3 ABG pH ABG Total CO2 ABG O2 Saturation ABG O2 Content ABG Base Excess ABG Hemoglobin ABG Carboxyhemoglobin POC ABG HHb (Measured) ABG Methemoglobin ABG O2 Capacity Hgb O2 Saturation FiO2 Sodium 141 Potassium 3.7 Chloride 111 H Carbon Dioxide 26 Anion Gap 8 L BUN 20 Creatinine 0.9 Est GFR ( Amer) > 60 Est GFR (Non-Af Amer) > 60 POC Glucose (mg/dL) Random Glucose 322 H* D Calcium 8.0 L Total Bilirubin 0.2 AST 27 ALT 23 Alkaline Phosphatase 177 H Total Protein 5.5 L Albumin 2.6 L Globulin 2.9 Albumin/Globulin Ratio 0.9 L Procalcitonin Stool Occult Blood Assessment & Plan - Assessment and Plan (Free Text) Assessment: 57F w/ resp failure Plan: -Should patient fail weaning trials -Will plan for open tracheostomy later this week -Date to be determined -D/w Dr. Anita Philippe PGY3 <Morales Howard F - Last Filed: 05/28/18 19:16> Meds - Medications Medications: Current Medications Amlodipine Besylate (Norvasc) 10 mg PO DAILY [facility] Last Admin: 05/28/18 10:39 Dose: 10 mg Clonidine HCl (Catapres-Tts2 0.2 Mg/24 Hr) 1 patch TD Q7D@0700 [facility] Dicyclomine HCl (Bentyl) 10 mg PO TID [facility] Last Admin: 05/28/18 17:42 Dose: 10 mg Digoxin (Lanoxin) 0.25 mg PO 1400 [facility] Last Admin: 05/28/18 14:02 Dose: 0.25 mg Ergocalciferol (Drisdol 50,000 Intl Units Cap) 1 cap PO Q7D [facility] Last Admin: 05/22/18 08:19 Dose: 1 cap Gabapentin (Neurontin) 300 mg PO BID [facility]; Protocol Last Admin: 05/28/18 17:43 Dose: 300 mg Levetiracetam 750 mg/ Sodium (Chloride) 107.5 mls @ 322.5 mls/hr IV Q12H [facility] Last Admin: 05/28/18 17:41 Dose: 322.5 mls/hr Cefepime HCl (Maxipime 2gm) 2 gm in 100 mls @ 100 mls/hr IVPB Q8 PATTI; Protocol Stop: 06/01/18 08:46 Last Admin: 05/28/18 14:03 Dose: 100 mls/hr Linezolid (Zyvox 600mg/300ml D5w) 600 mg in 300 mls @ 200 mls/hr IVPB Q12 PATTI; Protocol Stop: 06/03/18 10:01 Last Admin: 05/28/18 10:27 Dose: 200 mls/hr Nicardipine HCl (Cardene Iv Premix) 20 mg in 200 mls @ 50 mls/hr IV .Q4H PRN; Protocol PRN Reason: TITRATE PER MD ORDER Last Admin: 05/28/18 17:54 Dose: 5 mg/hr, 50 mls/hr Insulin Detemir (Levemir) 40 unit SC Q12H [facility] Insulin Human Lispro (Humalog Low) 0 units SC ACHS [facility]; Protocol Last Admin: 05/28/18 16:17 Dose: 4 unit Levalbuterol HCl (Xopenex) 1.25 mg IH [id number] [facility] Last Admin: 05/28/18 14:01 Dose: 1.25 mg Losartan Potassium (Cozaar) 100 mg PO QPM [facility]TI Last Admin: 05/28/18 17:41 Dose: 100 mg Metoclopramide HCl (Reglan) 5 mg PO HS [facility] Last Admin: 05/27/18 21:19 Dose: 5 mg Metoprolol Tartrate (Lopressor) 25 mg PO BID [facility] Last Admin: 05/28/18 17:42 Dose: 25 mg Pantoprazole Sodium (Protonix Inj) 40 mg IVP DAILY [facility] Last Admin: 05/28/18 10:28 Dose: 40 mg Venlafaxine HCl (Effexor Xr) 75 mg PO DAILY [facility] Last Admin: 05/28/18 10:33 Dose: 75 mg Results - Vital Signs Recent Vital Signs: Last Vital Signs Temp 98.8 F 05/28/18 18:00 Pulse 75 05/28/18 18:00 Resp 18 05/27/18 07:18 BP 137/67 05/28/18 18:00 Pulse Ox 97 05/28/18 18:00 - Labs Result Diagrams: 05/28/18 07:30 05/28/18 07:30 Labs: Laboratory Results - last 24 hr 05/27/18 05/27/18 05/28/18 17:28 21:22 06:50 WBC RBC Hgb Hct MCV MCH MCHC RDW Plt Count MPV Gran % Lymph % (Auto) [place] % (Auto) Eos % (Auto) Baso % (Auto) Gran # Lymph # (Auto) [place] # (Auto) Eos # (Auto) Baso # (Auto) pCO2 22 L pO2 118.0 H HCO3 13.3 L ABG pH 7.39 ABG Total CO2 14.0 L ABG O2 Saturation 97.6 ABG O2 Content 9.0 L ABG Base Excess -10.6 L ABG Hemoglobin 6.4 L ABG Carboxyhemoglobin 0.4 L POC ABG HHb (Measured) 2.4 ABG Methemoglobin 0.6 ABG O2 Capacity 9.2 L Hgb O2 Saturation 96.6 FiO2 35.0 Sodium Potassium Chloride Carbon Dioxide Anion Gap BUN Creatinine Est GFR ( Amer) Est GFR (Non-Af Amer) POC Glucose (mg/dL) 95 98 Random Glucose Calcium Total Bilirubin AST ALT Alkaline Phosphatase Total Protein Albumin Globulin Albumin/Globulin Ratio Stool Occult Blood 05/28/18 05/28/18 05/28/18 07:20 07:30 07:30 WBC 11.3 H RBC 3.63 Hgb 9.2 L Hct 29.6 L MCV 81.5 MCH 25.3 MCHC 31.1 RDW 15.3 H Plt Count 305 MPV 9.5 Gran % 86.5 H Lymph % (Auto) 8.4 L [place] % (Auto) 2.6 Eos % (Auto) 2.3 Baso % (Auto) 0.2 Gran # 9.78 H Lymph # (Auto) 1.0 L [place] # (Auto) 0.3 Eos # (Auto) 0.3 Baso # (Auto) 0.02 pCO2 pO2 HCO3 ABG pH ABG Total CO2 ABG O2 Saturation ABG O2 Content ABG Base Excess ABG Hemoglobin ABG Carboxyhemoglobin POC ABG HHb (Measured) ABG Methemoglobin ABG O2 Capacity Hgb O2 Saturation FiO2 Sodium 141 Potassium 3.7 Chloride 111 H Carbon Dioxide 26 Anion Gap 8 L BUN 20 Creatinine 0.9 Est GFR ( Amer) > 60 Est GFR (Non-Af Amer) > 60 POC Glucose (mg/dL) Random Glucose 322 H* D Calcium 8.0 L Total Bilirubin 0.2 AST 27 ALT 23 Alkaline Phosphatase 177 H Total Protein 5.5 L Albumin 2.6 L Globulin 2.9 Albumin/Globulin Ratio 0.9 L Stool Occult Blood Negative Assessment & Plan (1) Anxiety Status: Acute (2) Hyperglycemia Status: Acute (3) Hypertension Status: Acute (4) Seizure Status: Acute (5) Abdominal pain Status: Acute (6) Abnormal EKG Status: Acute (7) Abscess Status: Acute (8) Chest pain Status: Acute (9) Dehydration Status: Acute (10) Diabetic gastroparesis Status: Acute (11) LAUREN (generalized anxiety disorder) Status: Acute Priority: Medium (12) Hyperkalemia Status: Acute (13) Hypokalemia Status: Acute (14) Hypoxia Status: Acute (15) Intractable abdominal pain Status: Acute (16) Intractable epigastric abdominal pain Status: Acute (17) Intractable vomiting Status: Acute (18) MDD (major depressive disorder) Status: Acute Priority: Medium (19) 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 Status: Acute Priority: High (20) New onset seizure Status: Acute (21) Sepsis Status: Acute (22) Syncope Status: Acute Priority: High (23) Syncope and collapse Status: Acute (24) TIA (transient ischemic attack) Status: Acute (25) Uncontrolled diabetes mellitus Status: Acute (26) Diabetes Status: Chronic (27) Diabetic neuropathy Status: Chronic (28) Gastroparesis Status: Chronic (29) IBS (irritable bowel syndrome) Status: Chronic (30) Orthostatic dizziness Status: Chronic (31) Ventilator dependence Status: Acute - Date & Time Date: 05/28/18 Time: 19:14 Attending/Attestation - Attestation I have personally seen and examined this patient.: Yes I have fully participated in the care of the patient.: Yes I have reviewed all pertinent clinical information: Yes Notes (Text): I discussed tracheotomy placement with the family, we discussed the common risks of the procedure, we will try to find a time during the week to perform the procedure 05/28/18 19:12
[2018-05-28] MEDS ORDERED: Insulin Lispro (humaLOG) LOW Coverage SC SCH (16:30)
--- NOTE | 2018-05-28 18:09 | PN ---
DATE: 05/28/2018 PULMONARY PROGRESS NOTE SUBJECTIVE: The patient was seen and examined at bedside on a ventilator. She is more awake, but not responsive to verbal commands. She is moving around. There are eye movements, but she is not focusing and not responding to voice. PHYSICAL EXAMINATION: VITAL SIGNS: As follows: Temperature 99.3, pulse is 103, respirations 20, on the ventilator. Blood pressure is 137/64. HEENT: Head normocephalic and atraumatic. NECK: Supple. There is no jugular vein distention. CARDIOVASCULAR: S1, S2. No S3. Irregular. PULMONARY: Slightly diminished breath sounds at both bases. No wheezing. GASTROINTESTINAL: Soft, nontender. No organomegaly. : Within normal limits EXTREMITIES: No pedal edema. SKIN: No acute skin rashes. NEUROLOGIC: No memory loss LABORATORY DATA: I have reviewed her latest laboratory data. Her pH is 7.39, pCO2 of 22, and pO2 of 118 on 35% FiO2. WBC is 11.4, hemoglobin is 9.2. ASSESSMENT: The patient is a 57-year-old with severe toxic metabolic encephalopathy and respiratory failure. She starts making more movements, but not focusing. I think at this point tracheostomy will be very appropriate and this was recommended yesterday. After tracheostomy, she can be weaned in a more safely manner. The mental status remains the main limitation for weaning, but she starts showing some signs of narrow and narrow muscular activity. Jose G Ibrahim MD MTDD
[2018-05-28] MEDS ORDERED: Insulin Detemir 100 units/ml Vial (Levemir) SC ONE (21:54)
[2018-05-28] MEDS: Insulin Detemir 100 units/ml Vial (Levemir) SC SCH (22:10)
[2018-05-29] MEDS: Nicardipine 20 MG/200 ML 20 MG/200 ML BAG IV PRN ×3 (01:44→11:05)
[2018-05-29] MEDS: Levalbuterol 1.25 MG/3 ML Inhal Soln UD IH SCH ×4 (01:57→19:58)
[2018-05-29] MEDS: Cefepime IV 2 gm in NS 2 GM/100 ML BAG IVPB SCH ×3 (05:00→22:13)
[2018-05-29 05:50] LABS: ARTERIAL BLOOD GAS HCO3 22.9 mmol/L (21-28); ARTERIAL BLOOD GAS HEMOGLOBIN 8.9 g/dL (11.7-17.4); ARTERIAL BLOOD GAS O2 CAPACITY 12.5 mL/dl (16-24); ARTERIAL BLOOD GAS O2 CONTENT 12.1 ML/dl (15-23); ARTERIAL BLOOD GAS O2 SAT 96.7 % (95-98); ARTERIAL BLOOD GAS PCO2 37 mm/Hg (35-45)
[2018-05-29 06:34] LABS: BASO # 0.02 K/mm3 (0.0-2.0); BASO % 0.2 % (0.0-3.0); EOS # 0.3 (0.0-0.7); EOS % 2.5 % (1.5-5.0); GRAN # 10.83 (1.4-6.5); HEMOGLOBIN 8.5 g/dL (12.0-16.0); LYMPH # 1.5 (1.2-3.4); LYMPH % 11.5 % (22.0-35.0); MEAN CELL VOLUME 80.6 fl (80.0-105.0); MEAN PLATELET VOLUME 9.2 fl (7.0-11.0); MONO # 0.5 (0.1-0.6); MONO % 3.8 % (1.0-6.0); RBC 3.4 10^6/uL (3.5-6.1); RED CELL DISTRIBUTION WIDTH 14.7 % (11.5-14.5); WHITE BLOOD COUNT 13.2 10^3/uL (4.5-11.0)
[2018-05-29 06:37] LABS: ALB/GLOB RATIO 0.8 (1.1-1.8); ALBUMIN 2.4 g/dL (3.0-4.8); ALT/SGPT 25 U/L (7-56); AST/SGOT 20 U/L (14-36); BLOOD UREA NITROGEN 26 mg/dL (7-21); CALCIUM 7.8 mg/dL (8.4-10.5); GFR NON-AFRICAN AMERICAN 57
--- NOTE | 2018-05-29 08:49 | CP.CCUPN ---
<Jose Isidro - Last Filed: 05/29/18 11:52> CCU Subjective - Physician Review Subjective (Free Text): Jose Isidro PGY-1 Progress Note for ICU Patient seen and evaluated at bedside. No acute events reported overnight. Patient intubated, off sedation. Afebrile overnight. Current vent settings 35/5/12/400. Patient spontaneously opens her eyes and has spontaneous movements of her extremities. Further ROS unable to be obtained due to clinical condition. CCU Objective - Vital Signs / Intake & Output Vital Signs (Last 4 hours): Vital Signs Temp Pulse BP Pulse Ox 05/29/18 06:00 98.4 F 87 131/63 98 05/29/18 05:00 98.6 F 87 130/66 96 Intake and Output (Last 8hrs): Intake & Output 05/28/18 05/29/18 05/29/18 22:59 06:59 14:59 Intake Total 2610 1900 Output Total 351 378 Balance 2259 1522 Intake: IV 1110 1300 Right Internal Jugular 200 abx 200 cardene 400 600 keppra 10 100 Oral 900 Tube Feeding 600 600 Output: Urine 350 375 Urethral (Wan) 350 375 Stool 1 3 - Physical Exam Head: Positive for: Atraumatic, Normocephalic Pupils: Positive for: Sluggish, Other (Closes eyes upon shining light) Extroacular Muscles: Positive for: EOMI Conjunctiva: Positive for: Normal Mouth: Positive for: Moist Mucous Membranes Pharnyx: Positive for: Other (Intubated.) Nose (External): Positive for: Other (NGT in place) Neck: Positive for: Normal Range of Motion Respiratory/Chest: Positive for: Clear to Auscultation, Good Air Exchange. Negative for: Respiratory Distress, Accessory Muscle Use Cardiovascular: Positive for: Regular Rate and Rhythm, Normal S1, S2. Negative for: Murmurs Abdomen: Negative for: Tenderness, Distention, Peritoneal Signs Back: Positive for: Normal Inspection Upper Extremity: Positive for: Normal Inspection. Negative for: Cyanosis, Edema Lower Extremity: Positive for: Other (Right foot amputation noted). Negative for: Edema Neurological: Positive for: Motor Func Grossly Intact. Negative for: CN II-XII Intact, Speech Normal Skin: Positive for: Warm, Dry, Normal Color. Negative for: Rashes Psychiatric: Positive for: Alert. Negative for: Oriented x 3, Normal Insight, Normal Concentration - Medications Active Medications: Active Medications Generic Name Dose Route Start Last Admin Trade Name Freq PRN Reason Stop Dose Admin Amlodipine Besylate 10 mg 05/24/18 11:13 05/28/18 10:39 Norvasc PO 10 mg DAILY PATTI Administration Clonidine HCl 1 patch 05/24/18 11:15 Catapres-Tts2 0.2 Mg/24 Hr TD Q7D@0700 PATTI Dicyclomine HCl 10 mg 05/19/18 18:00 05/28/18 17:42 Bentyl PO 10 mg TID PATTI Administration Digoxin 0.25 mg 05/28/18 14:00 05/28/18 14:02 Lanoxin PO 0.25 mg 1400 PATTI Administration Ergocalciferol 1 cap 05/22/18 07:15 05/22/18 08:19 Drisdol 50,000 Intl Units Cap PO 1 cap Q7D PATTI Administration Gabapentin 300 mg 05/19/18 18:00 05/28/18 17:43 Neurontin PO 300 mg BID PATTI Administration Protocol Levetiracetam 750 mg/ Sodium 107.5 mls @ 322.5 mls/hr 05/22/18 18:00 05/29/18 05:00 Chloride IV 322.5 mls/hr Q12H PATTI Administration Cefepime HCl 2 gm in 100 mls @ 100 mls/hr 05/27/18 08:45 05/29/18 05:00 Maxipime 2gm IVPB 06/01/18 08:46 100 mls/hr Q8 PATTI Administration Protocol Linezolid 600 mg in 300 mls @ 200 mls/hr 05/27/18 10:00 05/28/18 22:07 Zyvox 600mg/300ml D5w IVPB 06/03/18 10:01 200 mls/hr Q12 PATTI Administration Protocol Nicardipine HCl 20 mg in 200 mls @ 50 mls/hr 05/27/18 09:35 05/29/18 06:22 Cardene Iv Premix IV 5 mg/hr .Q4H PRN 50 mls/hr TITRATE PER MD ORDER Administration Protocol 5 MG/HR Insulin Detemir 40 unit 05/28/18 22:00 05/28/18 22:10 Levemir SC Not Given Q12H [facility] Insulin Human Lispro 0 units 05/28/18 14:06 05/28/18 22:03 Humalog Low SC Not Given ACHS [facility] Protocol Levalbuterol HCl 1.25 mg 05/20/18 08:00 05/29/18 01:57 Xopenex IH 1.25 mg [id number] PATTI Administration Losartan Potassium 100 mg 05/24/18 18:00 05/28/18 17:41 Cozaar PO 100 mg QPM PATTI Administration Metoclopramide HCl 5 mg 05/19/18 22:00 05/28/18 22:09 Reglan PO 5 mg HS PATTI Administration Metoprolol Tartrate 25 mg 05/26/18 18:00 05/28/18 17:42 Lopressor PO 25 mg BID PATTI Administration Pantoprazole Sodium 40 mg 05/21/18 10:00 05/28/18 10:28 Protonix Inj IVP 40 mg DAILY PATTI Administration Venlafaxine HCl 75 mg 05/20/18 10:00 05/28/18 10:33 Effexor Xr PO 75 mg DAILY PATTI Administration - Patient Studies Lab Studies: Microbiology Studies 05/27/18 09:10 Urine Culture - Final Urine,Catheterized No Growth (<1,000 CFU/ML) 05/27/18 10:15 Blood Culture - Preliminary Blood-Venous NO GROWTH AFTER 24 HOURS 05/27/18 09:55 Blood Culture - Preliminary Blood-Venous NO GROWTH AFTER 24 HOURS Lab Studies 05/29/18 05/29/18 05/29/18 Range/Units 06:15 06:15 05:30 WBC 13.2 H (4.5-11.0) 10^3/uL RBC 3.40 L (3.5-6.1) 10^6/uL Hgb 8.5 L (12.0-16.0) g/dL Hct 27.4 L (36.0-48.0) % MCV 80.6 (80.0-105.0) fl MCH 25.0 (25.0-35.0) pg MCHC 31.0 (31.0-37.0) g/dl RDW 14.7 H (11.5-14.5) % Plt Count 291 (120.0-450.0) 10^3/uL MPV 9.2 (7.0-11.0) fl Gran % 82.0 H (50.0-68.0) % Lymph % (Auto) 11.5 L (22.0-35.0) % Spink % (Auto) 3.8 (1.0-6.0) % Eos % (Auto) 2.5 (1.5-5.0) % Baso % (Auto) 0.2 (0.0-3.0) % Gran # 10.83 H (1.4-6.5) Lymph # (Auto) 1.5 (1.2-3.4) Spink # (Auto) 0.5 (0.1-0.6) Eos # (Auto) 0.3 (0.0-0.7) Baso # (Auto) 0.02 (0.0-2.0) K/mm3 pCO2 37 (35-45) mm/Hg pO2 86.0 (80-100) mm/Hg HCO3 22.9 (21-28) mmol/L ABG pH 7.40 (7.35-7.45) ABG Total CO2 24.0 (22-28) mmol.L ABG O2 Saturation 96.7 (95-98) % ABG O2 Content 12.1 L (15-23) ML/dl ABG Base Excess -1.7 (-2.0-3.0) mmol/L ABG Hemoglobin 8.9 L (11.7-17.4) g/dL ABG Carboxyhemoglobin 0.5 (0.5-1.5) % POC ABG HHb (Measured) 3.3 (0-5) % ABG Methemoglobin 0.2 (0.0-3.0) % ABG O2 Capacity 12.5 L (16-24) mL/dl Hgb O2 Saturation 96.0 (95.0-98.0) % FiO2 35.0 % Sodium 137 (132-148) mmol/L Potassium 3.6 (3.6-5.0) mmol/L Chloride 107 (98-107) mmol/L Carbon Dioxide 25 (21-33) mmol/L Anion Gap 8 L (10-20) BUN 26 H (7-21) mg/dL Creatinine 1.0 (0.7-1.2) mg/dl Est GFR ( Amer) > 60 Est GFR (Non-Af Amer) 57 POC Glucose (mg/dL) (65-110) mg/dL Random Glucose 131 H (70-110) mg/dL Calcium 7.8 L (8.4-10.5) mg/dL Total Bilirubin 0.1 L (0.2-1.3) mg/dL AST 20 (14-36) U/L ALT 25 (7-56) U/L Alkaline Phosphatase 135 H D (38-126) U/L Total Protein 5.3 L (5.8-8.3) g/dL Albumin 2.4 L (3.0-4.8) g/dL Globulin 2.9 gm/dL Albumin/Globulin Ratio 0.8 L (1.1-1.8) 05/28/18 05/28/18 05/28/18 Range/Units 21:40 16:03 11:25 WBC (4.5-11.0) 10^3/uL RBC (3.5-6.1) 10^6/uL Hgb (12.0-16.0) g/dL Hct (36.0-48.0) % MCV (80.0-105.0) fl MCH (25.0-35.0) pg MCHC (31.0-37.0) g/dl RDW (11.5-14.5) % Plt Count (120.0-450.0) 10^3/uL MPV (7.0-11.0) fl Gran % (50.0-68.0) % Lymph % (Auto) (22.0-35.0) % Spink % (Auto) (1.0-6.0) % Eos % (Auto) (1.5-5.0) % Baso % (Auto) (0.0-3.0) % Gran # (1.4-6.5) Lymph # (Auto) (1.2-3.4) Spink # (Auto) (0.1-0.6) Eos # (Auto) (0.0-0.7) Baso # (Auto) (0.0-2.0) K/mm3 pCO2 (35-45) mm/Hg pO2 (80-100) mm/Hg HCO3 (21-28) mmol/L ABG pH (7.35-7.45) ABG Total CO2 (22-28) mmol.L ABG O2 Saturation (95-98) % ABG O2 Content (15-23) ML/dl ABG Base Excess (-2.0-3.0) mmol/L ABG Hemoglobin (11.7-17.4) g/dL ABG Carboxyhemoglobin (0.5-1.5) % POC ABG HHb (Measured) (0-5) % ABG Methemoglobin (0.0-3.0) % ABG O2 Capacity (16-24) mL/dl Hgb O2 Saturation (95.0-98.0) % FiO2 % Sodium (132-148) mmol/L Potassium (3.6-5.0) mmol/L Chloride (98-107) mmol/L Carbon Dioxide (21-33) mmol/L Anion Gap (10-20) BUN (7-21) mg/dL Creatinine (0.7-1.2) mg/dl Est GFR ( Amer) Est GFR (Non-Af Amer) POC Glucose (mg/dL) 257 H 341 H 382 H (65-110) mg/dL Random Glucose (70-110) mg/dL Calcium (8.4-10.5) mg/dL Total Bilirubin (0.2-1.3) mg/dL AST (14-36) U/L ALT (7-56) U/L Alkaline Phosphatase (38-126) U/L Total Protein (5.8-8.3) g/dL Albumin (3.0-4.8) g/dL Globulin gm/dL Albumin/Globulin Ratio (1.1-1.8) 05/28/18 Range/Units 07:39 WBC (4.5-11.0) 10^3/uL RBC (3.5-6.1) 10^6/uL Hgb (12.0-16.0) g/dL Hct (36.0-48.0) % MCV (80.0-105.0) fl MCH (25.0-35.0) pg MCHC (31.0-37.0) g/dl RDW (11.5-14.5) % Plt Count (120.0-450.0) 10^3/uL MPV (7.0-11.0) fl Gran % (50.0-68.0) % Lymph % (Auto) (22.0-35.0) % Spink % (Auto) (1.0-6.0) % Eos % (Auto) (1.5-5.0) % Baso % (Auto) (0.0-3.0) % Gran # (1.4-6.5) Lymph # (Auto) (1.2-3.4) Spink # (Auto) (0.1-0.6) Eos # (Auto) (0.0-0.7) Baso # (Auto) (0.0-2.0) K/mm3 pCO2 (35-45) mm/Hg pO2 (80-100) mm/Hg HCO3 (21-28) mmol/L ABG pH (7.35-7.45) ABG Total CO2 (22-28) mmol.L ABG O2 Saturation (95-98) % ABG O2 Content (15-23) ML/dl ABG Base Excess (-2.0-3.0) mmol/L ABG Hemoglobin (11.7-17.4) g/dL ABG Carboxyhemoglobin (0.5-1.5) % POC ABG HHb (Measured) (0-5) % ABG Methemoglobin (0.0-3.0) % ABG O2 Capacity (16-24) mL/dl Hgb O2 Saturation (95.0-98.0) % FiO2 % Sodium (132-148) mmol/L Potassium (3.6-5.0) mmol/L Chloride (98-107) mmol/L Carbon Dioxide (21-33) mmol/L Anion Gap (10-20) BUN (7-21) mg/dL Creatinine (0.7-1.2) mg/dl Est GFR ( Amer) Est GFR (Non-Af Amer) POC Glucose (mg/dL) 317 H (65-110) mg/dL Random Glucose (70-110) mg/dL Calcium (8.4-10.5) mg/dL Total Bilirubin (0.2-1.3) mg/dL AST (14-36) U/L ALT (7-56) U/L Alkaline Phosphatase (38-126) U/L Total Protein (5.8-8.3) g/dL Albumin (3.0-4.8) g/dL Globulin gm/dL Albumin/Globulin Ratio (1.1-1.8) Laboratory Results - last 24 hr 05/28/18 05/28/18 05/28/18 07:39 11:25 16:03 WBC RBC Hgb Hct MCV MCH MCHC RDW Plt Count MPV Gran % Lymph % (Auto) Spink % (Auto) Eos % (Auto) Baso % (Auto) Gran # Lymph # (Auto) Spink # (Auto) Eos # (Auto) Baso # (Auto) pCO2 pO2 HCO3 ABG pH ABG Total CO2 ABG O2 Saturation ABG O2 Content ABG Base Excess ABG Hemoglobin ABG Carboxyhemoglobin POC ABG HHb (Measured) ABG Methemoglobin ABG O2 Capacity Hgb O2 Saturation FiO2 Sodium Potassium Chloride Carbon Dioxide Anion Gap BUN Creatinine Est GFR ( Amer) Est GFR (Non-Af Amer) POC Glucose (mg/dL) 317 H 382 H 341 H Random Glucose Calcium Total Bilirubin AST ALT Alkaline Phosphatase Total Protein Albumin Globulin Albumin/Globulin Ratio 05/28/18 05/29/18 05/29/18 21:40 05:30 06:15 WBC 13.2 H RBC 3.40 L Hgb 8.5 L Hct 27.4 L MCV 80.6 MCH 25.0 MCHC 31.0 RDW 14.7 H Plt Count 291 MPV 9.2 Gran % 82.0 H Lymph % (Auto) 11.5 L Spink % (Auto) 3.8 Eos % (Auto) 2.5 Baso % (Auto) 0.2 Gran # 10.83 H Lymph # (Auto) 1.5 Spink # (Auto) 0.5 Eos # (Auto) 0.3 Baso # (Auto) 0.02 pCO2 37 pO2 86.0 HCO3 22.9 ABG pH 7.40 ABG Total CO2 24.0 ABG O2 Saturation 96.7 ABG O2 Content 12.1 L ABG Base Excess -1.7 ABG Hemoglobin 8.9 L ABG Carboxyhemoglobin 0.5 POC ABG HHb (Measured) 3.3 ABG Methemoglobin 0.2 ABG O2 Capacity 12.5 L Hgb O2 Saturation 96.0 FiO2 35.0 Sodium Potassium Chloride Carbon Dioxide Anion Gap BUN Creatinine Est GFR ( Amer) Est GFR (Non-Af Amer) POC Glucose (mg/dL) 257 H Random Glucose Calcium Total Bilirubin AST ALT Alkaline Phosphatase Total Protein Albumin Globulin Albumin/Globulin Ratio 05/29/18 06:15 WBC RBC Hgb Hct MCV MCH MCHC RDW Plt Count MPV Gran % Lymph % (Auto) Spink % (Auto) Eos % (Auto) Baso % (Auto) Gran # Lymph # (Auto) Spink # (Auto) Eos # (Auto) Baso # (Auto) pCO2 pO2 HCO3 ABG pH ABG Total CO2 ABG O2 Saturation ABG O2 Content ABG Base Excess ABG Hemoglobin ABG Carboxyhemoglobin POC ABG HHb (Measured) ABG Methemoglobin ABG O2 Capacity Hgb O2 Saturation FiO2 Sodium 137 Potassium 3.6 Chloride 107 Carbon Dioxide 25 Anion Gap 8 L BUN 26 H Creatinine 1.0 Est GFR ( Amer) > 60 Est GFR (Non-Af Amer) 57 POC Glucose (mg/dL) Random Glucose 131 H Calcium 7.8 L Total Bilirubin 0.1 L AST 20 ALT 25 Alkaline Phosphatase 135 H D Total Protein 5.3 L Albumin 2.4 L Globulin 2.9 Albumin/Globulin Ratio 0.8 L Radiology Impressions: Radiology Impressions Chest X-Ray 05/28/18 06:00 IMPRESSION: Malpositioned endotracheal tube which is pulled back. Repositioning is recommended. Otherwise, stable tubes and lines. Progression of patchy bilateral infiltrates. Fingerstick Blood Sugar Results: 257 Review of Systems - Review of Systems Review of Systems: 12 point ROS unable to be obtaiend due to patient clinical condition. Critical Care Progress Note - Nutrition Nutrition: Nutrition Category Date Time Status NPO Diet [DIET] Diets 05/19/18 Dinner Ordered Assessment/Plan - Assessment and Plan (Free Text) Assessment: Ms. Monaco is a 57 year old female with PMHx of HTN, uncontrolled DM2 complicated by retinopathy/gastroparesis, MDD, LAUREN, and TIA/CVA who was admitted for evaluation and treatment of seizure like activity. Patient suspected of experiencing aspiration. She was intubated/sedated due to an inability to protect her airway. Currently off sedation. Family meeting occurred 05/28/18 with ENT to discuss trach placement later in week. Neurology AMS 2/2 Status Epilepticus - 05/19/18 CT Head without Contrast- No acute findings - 05/20/2019 CT Head without Contrast- No evidence of acute intracranial hemorrhage mass effect or midline shift. No significant interval changes noted - 05/22/2018 Brain MRI without Contrast- There are large areas of restricted diffusion/prolonged T2 signal changes within the the watershed zones of the occipito parietal and parietal and posterior frontal regions predominately involving the cortex.. Rule out watershed zone acute infarcts possibly related to prolonged seizures or hypertensive episode - 05/11/18 VEEG- moderate background slowing, left temporal interictal epileptiform discharges, left temporal slowing - continue on keppra 750mg IV q12 - 05/27/18 VEEG shows improving slowing/attenuation, no seizures and not in status epilepticus. - continue sedation vacation - neurology consulted- appreciate recommendations- posterior reversible e ncephalopathy syndrome (PRES)- minimal improvement in mental status Cardiovascular: PRES, Hx of HTN - continue clonidine 0.2mg/24 hours - continue amlodipine 10mg PO daily - Nicardipine drip discontinued this morning. Restart if sBP > 160 - Continue losartan 100mg PO daily as per cardio - cardiology consulted (Dr. Farmer)- appreciate recommendation. SVT- resolved - continue on lopressor 25mg PO BID with holding parameters. Will increase depending on pressures off Nicardipine drip - Digoxin 0.5 mg given yesterday. Begin Dig 0.25 mg daily with loading dose now Resp: Respiratory Failure s/p Seizure Aspiration - Intubated - continue weaning protocol via pressure support - ENT consulted- Dr. Boyer -05/28 family meeting regarding planned trach placement later this week - 05/28/18 CXR shows progression of bilateral infilatrates - 05/29/18 repeat CXR shows proper placement of endotracheal tube - head of bed > 35 degrees - conservative fluid management - continue oral hygiene - GI protonix and DVT prophylaxis- scds Aspiration Pneumonia, HAP, Severe Sepsis - 05/27/2018- CXR improving right sided perihilar infiltrate - Continue linezolid 600mg IV q12 and cefepime IV 2 gm q8 - procalcitonin 0.39, and rapid flu negative - infectious disease consulted (Dr. Sales)- appreciate recommendations - blood cx neg x2 after 24 hours - F/U sputum cx GI Hx of Gastroparesis - NPO - continue reglan 5mg mg PO QS - continue bentyl 10mg PO TID - change tube feeds to Glucerna 50, free water flushes 300 q4 as recommended by RD - GI consulted (Dr. Zambrano)- appreciate recommendations GI ppx: - protonix 40mg PO daily Endo Hx DM - Levemir increased to 40 units SC BID, BGs highest 382, recently 130 - continue lispro insulin sliding scale low - fingersticks ACHS - maintain euglycemia - endocrinology consulted Dr Coe- appreciate recommendations Renal ANTONIO - likely pre-renal in nature, BUN creatinine- returned to normal range - monitor closely via BMP/Creatinine - nephrology consulted- appreciate recommendations Heme Anemia - microcytic - hemoglobin 8.5 - FOBT negative - serum iron- low, tibc- low, ferritin- wnl , folate- wnl, b12- elevated, anemia of chronic disease vs iron deficiency anemia - recommend starting iron supplements DVT Ppx - SCD Patient seen, case reviewed and plan approved by Dr. Martha Dow. Jose Isidro, PGY-1 <Michael Dow - Last Filed: 05/29/18 17:27> CCU Objective - Vital Signs / Intake & Output Vital Signs (Last 4 hours): Vital Signs Pulse BP 05/29/18 16:29 88 166/87 H Intake and Output (Last 8hrs): Intake & Output 05/29/18 05/29/18 05/29/18 06:59 14:59 22:59 Intake Total 1900 250 Output Total 378 Balance 1522 250 Intake: IV 1300 250 abx 200 cardene 600 keppra 100 Tube Feeding 600 Output: Urine 375 Urethral (Wan) 375 Stool 3 - Medications Active Medications: Active Medications Generic Name Dose Route Start Last Admin Trade Name Freq PRN Reason Stop Dose Admin Amlodipine Besylate 10 mg 05/24/18 11:13 05/29/18 10:47 Norvasc PO 10 mg DAILY PATTI Administration Clonidine HCl 1 patch 05/24/18 11:15 Catapres-Tts2 0.2 Mg/24 Hr TD Q7D@0700 PATTI Dicyclomine HCl 10 mg 05/19/18 18:00 05/29/18 13:19 Bentyl PO 10 mg TID PATTI Administration Digoxin 0.25 mg 05/28/18 14:00 05/29/18 13:19 Lanoxin PO 0.25 mg 1400 PATTI Administration Ergocalciferol 1 cap 05/22/18 07:15 05/29/18 10:48 Drisdol 50,000 Intl Units Cap PO Not Given Q7D PATTI Gabapentin 300 mg 05/19/18 18:00 05/29/18 10:47 Neurontin PO 300 mg BID PATTI Administration Protocol Levetiracetam 750 mg/ Sodium 107.5 mls @ 322.5 mls/hr 05/22/18 18:00 05/29/18 05:00 Chloride IV 322.5 mls/hr Q12H PATTI Administration Cefepime HCl 2 gm in 100 mls @ 100 mls/hr 05/27/18 08:45 05/29/18 13:19 Maxipime 2gm IVPB 06/01/18 08:46 100 mls/hr Q8 PATTI Administration Protocol Linezolid 600 mg in 300 mls @ 200 mls/hr 05/27/18 10:00 05/29/18 10:50 Zyvox 600mg/300ml D5w IVPB 06/03/18 10:01 200 mls/hr Q12 PATTI Administration Protocol Nicardipine HCl 20 mg in 200 mls @ 50 mls/hr 05/27/18 09:35 05/29/18 11:46 Cardene Iv Premix IV 0 mg/hr .Q4H PRN 0 mls/hr TITRATE PER MD ORDER Titration Protocol 5 MG/HR Insulin Detemir 20 unit 05/29/18 22:00 Levemir SC Q12H PATTI Insulin Human Lispro 0 units 05/28/18 14:06 05/29/18 16:42 Humalog Low SC Not Given ACHS PATTI Protocol Levalbuterol HCl 1.25 mg 05/20/18 08:00 05/29/18 14:34 Xopenex IH 1.25 mg [id number] PATTI Administration Losartan Potassium 100 mg 05/24/18 18:00 05/29/18 16:29 Cozaar PO 100 mg QPM PATTI Administration Metoclopramide HCl 5 mg 05/19/18 22:00 05/28/18 22:09 Reglan PO 5 mg HS PATTI Administration Metoprolol Tartrate 25 mg 05/26/18 18:00 05/29/18 16:29 Lopressor PO 25 mg BID PATTI Administration Pantoprazole Sodium 40 mg 05/21/18 10:00 05/29/18 10:47 Protonix Inj IVP 40 mg DAILY PATTI Administration Venlafaxine HCl 75 mg 05/20/18 10:00 05/29/18 10:48 Effexor Xr PO 75 mg DAILY PATTI Administration - Patient Studies Lab Studies: Microbiology Studies 05/27/18 10:20 Gram Stain - Final Sputum Sputum Culture - Final NORMAL ORAL MARIA ESTHER 05/27/18 10:15 Blood Culture - Preliminary Blood-Venous NO GROWTH AFTER 48 HOURS 05/27/18 09:55 Blood Culture - Preliminary Blood-Venous NO GROWTH AFTER 48 HOURS Lab Studies 05/29/18 05/29/18 05/29/18 Range/Units 15:40 11:25 06:15 WBC (4.5-11.0) 10^3/uL RBC (3.5-6.1) 10^6/uL Hgb (12.0-16.0) g/dL Hct (36.0-48.0) % MCV (80.0-105.0) fl MCH (25.0-35.0) pg MCHC (31.0-37.0) g/dl RDW (11.5-14.5) % Plt Count (120.0-450.0) 10^3/uL MPV (7.0-11.0) fl Gran % (50.0-68.0) % Lymph % (Auto) (22.0-35.0) % Spink % (Auto) (1.0-6.0) % Eos % (Auto) (1.5-5.0) % Baso % (Auto) (0.0-3.0) % Gran # (1.4-6.5) Lymph # (Auto) (1.2-3.4) Spink # (Auto) (0.1-0.6) Eos # (Auto) (0.0-0.7) Baso # (Auto) (0.0-2.0) K/mm3 PT 11.9 (9.4-12.5) SECONDS INR 1.04 APTT 28.3 (25.1-36.5) Seconds pCO2 (35-45) mm/Hg pO2 (80-100) mm/Hg HCO3 (21-28) mmol/L ABG pH (7.35-7.45) ABG Total CO2 (22-28) mmol.L ABG O2 Saturation (95-98) % ABG O2 Content (15-23) ML/dl ABG Base Excess (-2.0-3.0) mmol/L ABG Hemoglobin (11.7-17.4) g/dL ABG Carboxyhemoglobin (0.5-1.5) % POC ABG HHb (Measured) (0-5) % ABG Methemoglobin (0.0-3.0) % ABG O2 Capacity (16-24) mL/dl Hgb O2 Saturation (95.0-98.0) % FiO2 % Sodium 137 (132-148) mmol/L Potassium 3.6 (3.6-5.0) mmol/L Chloride 107 (98-107) mmol/L Carbon Dioxide 25 (21-33) mmol/L Anion Gap 8 L (10-20) BUN 26 H (7-21) mg/dL Creatinine 1.0 (0.7-1.2) mg/dl Est GFR ( Amer) > 60 Est GFR (Non-Af Amer) 57 POC Glucose (mg/dL) 130 H (65-110) mg/dL Random Glucose 131 H (70-110) mg/dL Calcium 7.8 L (8.4-10.5) mg/dL Total Bilirubin 0.1 L (0.2-1.3) mg/dL AST 20 (14-36) U/L ALT 25 (7-56) U/L Alkaline Phosphatase 135 H D (38-126) U/L Total Protein 5.3 L (5.8-8.3) g/dL Albumin 2.4 L (3.0-4.8) g/dL Globulin 2.9 gm/dL Albumin/Globulin Ratio 0.8 L (1.1-1.8) 05/29/18 05/29/18 05/28/18 Range/Units 06:15 05:30 21:40 WBC 13.2 H (4.5-11.0) 10^3/uL RBC 3.40 L (3.5-6.1) 10^6/uL Hgb 8.5 L (12.0-16.0) g/dL Hct 27.4 L (36.0-48.0) % MCV 80.6 (80.0-105.0) fl MCH 25.0 (25.0-35.0) pg MCHC 31.0 (31.0-37.0) g/dl RDW 14.7 H (11.5-14.5) % Plt Count 291 (120.0-450.0) 10^3/uL MPV 9.2 (7.0-11.0) fl Gran % 82.0 H (50.0-68.0) % Lymph % (Auto) 11.5 L (22.0-35.0) % Spink % (Auto) 3.8 (1.0-6.0) % Eos % (Auto) 2.5 (1.5-5.0) % Baso % (Auto) 0.2 (0.0-3.0) % Gran # 10.83 H (1.4-6.5) Lymph # (Auto) 1.5 (1.2-3.4) Spink # (Auto) 0.5 (0.1-0.6) Eos # (Auto) 0.3 (0.0-0.7) Baso # (Auto) 0.02 (0.0-2.0) K/mm3 PT (9.4-12.5) SECONDS INR APTT (25.1-36.5) Seconds pCO2 37 (35-45) mm/Hg pO2 86.0 (80-100) mm/Hg HCO3 22.9 (21-28) mmol/L ABG pH 7.40 (7.35-7.45) ABG Total CO2 24.0 (22-28) mmol.L ABG O2 Saturation 96.7 (95-98) % ABG O2 Content 12.1 L (15-23) ML/dl ABG Base Excess -1.7 (-2.0-3.0) mmol/L ABG Hemoglobin 8.9 L (11.7-17.4) g/dL ABG Carboxyhemoglobin 0.5 (0.5-1.5) % POC ABG HHb (Measured) 3.3 (0-5) % ABG Methemoglobin 0.2 (0.0-3.0) % ABG O2 Capacity 12.5 L (16-24) mL/dl Hgb O2 Saturation 96.0 (95.0-98.0) % FiO2 35.0 % Sodium (132-148) mmol/L Potassium (3.6-5.0) mmol/L Chloride (98-107) mmol/L Carbon Dioxide (21-33) mmol/L Anion Gap (10-20) BUN (7-21) mg/dL Creatinine (0.7-1.2) mg/dl Est GFR ( Amer) Est GFR (Non-Af Amer) POC Glucose (mg/dL) 257 H (65-110) mg/dL Random Glucose (70-110) mg/dL Calcium (8.4-10.5) mg/dL Total Bilirubin (0.2-1.3) mg/dL AST (14-36) U/L ALT (7-56) U/L Alkaline Phosphatase (38-126) U/L Total Protein (5.8-8.3) g/dL Albumin (3.0-4.8) g/dL Globulin gm/dL Albumin/Globulin Ratio (1.1-1.8) 05/28/18 05/28/18 05/28/18 Range/Units 16:03 11:25 07:39 WBC (4.5-11.0) 10^3/uL RBC (3.5-6.1) 10^6/uL Hgb (12.0-16.0) g/dL Hct (36.0-48.0) % MCV (80.0-105.0) fl MCH (25.0-35.0) pg MCHC (31.0-37.0) g/dl RDW (11.5-14.5) % Plt Count (120.0-450.0) 10^3/uL MPV (7.0-11.0) fl Gran % (50.0-68.0) % Lymph % (Auto) (22.0-35.0) % Spink % (Auto) (1.0-6.0) % Eos % (Auto) (1.5-5.0) % Baso % (Auto) (0.0-3.0) % Gran # (1.4-6.5) Lymph # (Auto) (1.2-3.4) Spink # (Auto) (0.1-0.6) Eos # (Auto) (0.0-0.7) Baso # (Auto) (0.0-2.0) K/mm3 PT (9.4-12.5) SECONDS INR APTT (25.1-36.5) Seconds pCO2 (35-45) mm/Hg pO2 (80-100) mm/Hg HCO3 (21-28) mmol/L ABG pH (7.35-7.45) ABG Total CO2 (22-28) mmol.L ABG O2 Saturation (95-98) % ABG O2 Content (15-23) ML/dl ABG Base Excess (-2.0-3.0) mmol/L ABG Hemoglobin (11.7-17.4) g/dL ABG Carboxyhemoglobin (0.5-1.5) % POC ABG HHb (Measured) (0-5) % ABG Methemoglobin (0.0-3.0) % ABG O2 Capacity (16-24) mL/dl Hgb O2 Saturation (95.0-98.0) % FiO2 % Sodium (132-148) mmol/L Potassium (3.6-5.0) mmol/L Chloride (98-107) mmol/L Carbon Dioxide (21-33) mmol/L Anion Gap (10-20) BUN (7-21) mg/dL Creatinine (0.7-1.2) mg/dl Est GFR ( Amer) Est GFR (Non-Af Amer) POC Glucose (mg/dL) 341 H 382 H 317 H (65-110) mg/dL Random Glucose (70-110) mg/dL Calcium (8.4-10.5) mg/dL Total Bilirubin (0.2-1.3) mg/dL AST (14-36) U/L ALT (7-56) U/L Alkaline Phosphatase (38-126) U/L Total Protein (5.8-8.3) g/dL Albumin (3.0-4.8) g/dL Globulin gm/dL Albumin/Globulin Ratio (1.1-1.8) Laboratory Results - last 24 hr 05/28/18 05/28/18 05/28/18 07:39 11:25 16:03 WBC RBC Hgb Hct MCV MCH MCHC RDW Plt Count MPV Gran % Lymph % (Auto) Spink % (Auto) Eos % (Auto) Baso % (Auto) Gran # Lymph # (Auto) Spink # (Auto) Eos # (Auto) Baso # (Auto) PT INR APTT pCO2 pO2 HCO3 ABG pH ABG Total CO2 ABG O2 Saturation ABG O2 Content ABG Base Excess ABG Hemoglobin ABG Carboxyhemoglobin POC ABG HHb (Measured) ABG Methemoglobin ABG O2 Capacity Hgb O2 Saturation FiO2 Sodium Potassium Chloride Carbon Dioxide Anion Gap BUN Creatinine Est GFR ( Amer) Est GFR (Non-Af Amer) POC Glucose (mg/dL) 317 H 382 H 341 H Random Glucose Calcium Total Bilirubin AST ALT Alkaline Phosphatase Total Protein Albumin Globulin Albumin/Globulin Ratio 05/28/18 05/29/18 05/29/18 21:40 05:30 06:15 WBC 13.2 H RBC 3.40 L Hgb 8.5 L Hct 27.4 L MCV 80.6 MCH 25.0 MCHC 31.0 RDW 14.7 H Plt Count 291 MPV 9.2 Gran % 82.0 H Lymph % (Auto) 11.5 L Spink % (Auto) 3.8 Eos % (Auto) 2.5 Baso % (Auto) 0.2 Gran # 10.83 H Lymph # (Auto) 1.5 Spink # (Auto) 0.5 Eos # (Auto) 0.3 Baso # (Auto) 0.02 PT INR APTT pCO2 37 pO2 86.0 HCO3 22.9 ABG pH 7.40 ABG Total CO2 24.0 ABG O2 Saturation 96.7 ABG O2 Content 12.1 L ABG Base Excess -1.7 ABG Hemoglobin 8.9 L ABG Carboxyhemoglobin 0.5 POC ABG HHb (Measured) 3.3 ABG Methemoglobin 0.2 ABG O2 Capacity 12.5 L Hgb O2 Saturation 96.0 FiO2 35.0 Sodium Potassium Chloride Carbon Dioxide Anion Gap BUN Creatinine Est GFR ( Amer) Est GFR (Non-Af Amer) POC Glucose (mg/dL) 257 H Random Glucose Calcium Total Bilirubin AST ALT Alkaline Phosphatase Total Protein Albumin Globulin Albumin/Globulin Ratio 05/29/18 05/29/18 05/29/18 06:15 11:25 15:40 WBC RBC Hgb Hct MCV MCH MCHC RDW Plt Count MPV Gran % Lymph % (Auto) Spink % (Auto) Eos % (Auto) Baso % (Auto) Gran # Lymph # (Auto) Spink # (Auto) Eos # (Auto) Baso # (Auto) PT 11.9 INR 1.04 APTT 28.3 pCO2 pO2 HCO3 ABG pH ABG Total CO2 ABG O2 Saturation ABG O2 Content ABG Base Excess ABG Hemoglobin ABG Carboxyhemoglobin POC ABG HHb (Measured) ABG Methemoglobin ABG O2 Capacity Hgb O2 Saturation FiO2 Sodium 137 Potassium 3.6 Chloride 107 Carbon Dioxide 25 Anion Gap 8 L BUN 26 H Creatinine 1.0 Est GFR ( Amer) > 60 Est GFR (Non-Af Amer) 57 POC Glucose (mg/dL) 130 H Random Glucose 131 H Calcium 7.8 L Total Bilirubin 0.1 L AST 20 ALT 25 Alkaline Phosphatase 135 H D Total Protein 5.3 L Albumin 2.4 L Globulin 2.9 Albumin/Globulin Ratio 0.8 L Radiology Impressions: Radiology Impressions Chest X-Ray 05/29/18 10:42 IMPRESSION: Malpositioned endotracheal tube with tip above the clavicles. Repositioning is again recommended. Otherwise, stable tubes and lines. Improved right lung aeration with persistent patchy infiltrates medially. Chest X-Ray 05/29/18 11:25 IMPRESSION: Interval reposition of endotracheal tube now in satisfactory position. No other significant interval change. Critical Care Progress Note - Nutrition Nutrition: Nutrition Category Date Time Status NPO Diet [DIET] Diets 05/19/18 Dinner Ordered Addendum Addendum: 05/29/18 17:26 ICU Attending Addendum Patient seen and examined. Case reviewed on round with housestaff. Agree with resident note above with the following additions/exceptions 57f with a hx of HTN, uncontrolled DM2 complicated by retinopathy/gastroparesis, MDD, LAUREN, and TIA/CVA who was admitted for evaluation and treatment of seizure like activity with concern for PRES as well. Neuro MRI revelas large areas of restricted diffusion/prolonged T2 signal changes within the the watershed zones of the occipito parietal and parietal and posterior frontal regions predominately involving the cortex. Suggests PRES or status epil dx To tx PRES, need to cont to control BP. On nicard drip yesterday resumed home losartan which was held due to ANTONIO now resolved. Would resume dig which helped control HR as well as given recent SVT episode titrate OFF nicardipine drip empiric abx tx asp pna needs better gluc control, will f/u endo recs ENT planning for trach this week Rest of care above Michael Dow MD Pulmonary Critical Care Attending
[2018-05-29] MEDS: Insulin Lispro (humaLOG) LOW Coverage SC SCH ×4 (09:11→22:08)
[2018-05-29] MEDS: Ergocalciferol 50,000 Intl Units Cap PO SCH (10:48)
[2018-05-29] MEDS: Venlafaxine 75 mg ER Cap PO SCH (10:48)
[2018-05-29] MEDS: Insulin Detemir 100 units/ml Vial (Levemir) SC SCH (10:48)
[2018-05-29] MEDS: Linezolid 600 mg in D5W 300 ml 600 MG/300 ML BAG IVPB SCH ×2 (10:50→22:13)
--- NOTE | 2018-05-29 12:15 | RAD ---
Date of service: 05/29/2018 HISTORY: tube placement COMPARISON: Chest radiograph dated 05/28/2018. FINDINGS: LUNGS: Improved right-sided aeration with persistent patchy infiltrates medially. PLEURA: No significant pleural effusion identified, no pneumothorax apparent. CARDIOVASCULAR: Aortic atherosclerotic calcifications. Cardiomediastinal silhouette stably enlarged OSSEOUS STRUCTURES: Unchanged. VISUALIZED UPPER ABDOMEN: Right upper quadrant surgical clips. OTHER FINDINGS: Endotracheal tube with tip above the clavicles. Enteric tube, unchanged. Right internal jugular access central venous catheter, unchanged. IMPRESSION: Malpositioned endotracheal tube with tip above the clavicles. Repositioning is again recommended. Otherwise, stable tubes and lines. Improved right lung aeration with persistent patchy infiltrates medially.
--- NOTE | 2018-05-29 12:20 | PN ---
DATE: 05/29/2018 SUBJECTIVE: The patient is in 128, bed 1, intubated on a ventilator. PHYSICAL EXAMINATION: VITAL SIGNS: Temperature is 98, blood pressure is 130/60, respiratory rate of 23, heart rate of 87. HEENT: Unremarkable. NECK: Supple. LUNGS: Decreased breath sounds. HEART: Normal S1, S2. ABDOMEN: Soft, nontender. LABORATORY DATA: White count of 13,200, hemoglobin of 8, platelets of 291. BUN of 26, creatinine of 1. Urinalysis is noted. Blood cultures are negative. ASSESSMENT AND PLAN: This is a 57-year-old female with systemic inflammatory response syndrome, seizures, respiratory failure, ventilatory dependent, respiratory failure and possible aspiration pneumonia on top of posterior reversible encephalopathy syndrome and with acute cerebral infarct with history of hypertension, diabetes, transient ischemic attack, currently on Zyvox and cefepime with negative blood cultures. Dr. Howard's consultation is reviewed. The patient with diabetes, gastroparesis, and cerebrovascular accident. We will follow with you. Marc Sales MD
--- NOTE | 2018-05-29 12:24 | RAD ---
Date of service: 05/29/2018 HISTORY: endotrachel tube repositioning COMPARISON: Chest radiograph performed approximately 45 minutes prior. FINDINGS: LUNGS: Similar patchy medial bilateral infiltrates PLEURA: No significant pleural effusion identified, no pneumothorax apparent. CARDIOVASCULAR: Aortic atherosclerotic calcifications. Cardiomediastinal silhouette stably enlarged. OSSEOUS STRUCTURES: Unchanged. VISUALIZED UPPER ABDOMEN: Right upper quadrant surgical clips. OTHER FINDINGS: Endotracheal tube repositioned with tip between the clavicles and madisyn. Enteric tube, unchanged. Right internal jugular access central catheter, unchanged.. IMPRESSION: Interval reposition of endotracheal tube now in satisfactory position. No other significant interval change.
[2018-05-29] MEDS: Digoxin 250 mcg (0.25 mg) Tab PO SCH (13:19)
--- NOTE | 2018-05-29 13:49 | PN ---
DATE: 05/29/2018 LOCATION: ICU 128, room 1. SUBJECTIVE: This is a 57-year-old female with recent uncontrolled type 2 insulin-requiring diabetes presenting here with grand mal seizure, subsequent acute respiratory failure and is currently endotracheally intubated at this time and is also being followed closely for metabolic management because of extremes of glycemic fluctuations as noted thereof. LABORATORY DATA: Her glucose levels yesterday ranged from 317-382 mg/dl and today was 130 mg/dl as noted. Her chemistry showed a BUN of 26, sodium 137, potassium 3.6, chloride 107, CO2 25, glucose 131 and creatinine 1.0. So at this time, we will modify once again her basal insulin and lower the Levemir to 20 units subcu every 12 hours at 10:00 a.m. and 10:00 p.m. daily as given. PLAN: We will continue the coverage scale as modified accordingly. We will also continue her Glucerna tube feedings to optimize her caloric and metabolic requirements especially now that she is extremely hypermetabolic with increased nutritional and protein requirements thereof. We will obtain serial chemistries and supplement accordingly as needed. Tita Coe MD
--- NOTE | 2018-05-29 14:32 | PN ---
DATE: 05/29/2018 SUBJECTIVE: I saw her in the intensive care unit. She is on the ventilator. Her eyes were open, very poorly responsive especially to verbal commands. She is being seen by ENT, Pulmonary, Endocrinology, Cardiology, Hospitalist. She is in deep trouble. She had a seizure, which put her into a watershed issue in the occiput of the brain and a PRES situation. PHYSICAL EXAMINATION: VITAL SIGNS: She has a 98.4 temp, 89 pulse, 138/69 blood pressure, 22 respiratory rate, 96% O2 sat on mechanical ventilation. HEENT: Head is atraumatic, normocephalic. Her eyes are open. HEART: Regular rate. LUNGS: Decreased breath sounds, but clear. ABDOMEN: Soft. EXTREMITIES: No edema. MEDICATIONS: She is on Bentyl, Cardene, Catapres, Cozaar, Drisdol, Effexor, insulin, Lanoxin, Levemir, Keppra, Lopressor, Maxipime IV, Neurontin, Norvasc, Protonix, Reglan, Xopenex and Zyvox IV. LABORATORY DATA: She has 137 sodium, potassium 3.6, BUN 26, creatinine 1, GFR is 67, sugar is 131, calcium is 7.8, total bili is 0.1, AST is 20, ALT is 25, alk phos 135. Total protein is 5.3; 13.2 white count went up a little bit, they changed the antibiotics; 8.5 hemoglobin. If it drops below 8, I will transfuse her; hematocrit 27.4, platelets are 291. ASSESSMENT AND PLAN: I am hoping that she can wake up. She might need a tracheostomy. Also, she might need to be moved to an long-term acute care. She might also need to have a feeding tube placed. She might end up being chronic care. I will continue with aggressive treatment and care on Ting Monaco who had a seizure, then watershed and posterior reversible encephalopathy syndrome on top of acute respiratory failure. Josafat Dent DO
--- NOTE | 2018-05-29 15:03 | CP.PCM.PN ---
Subjective - Date & Time of Evaluation Date of Evaluation: 05/29/18 Time of Evaluation: 15:02 - Subjective Subjective: pt seen and examined still on ventilator support, awake, in room and agreeable with plan for tracheotomy. Objective - Vital Signs/Intake and Output Vital Signs (last 24 hours): Temp Pulse Resp BP Pulse Ox 98.4 F 89 23 138/69 96 05/29/18 06:00 05/29/18 10:49 05/29/18 08:45 05/29/18 10:49 05/29/18 08:45 Intake and Output: 05/29/18 05/29/18 06:59 18:59 Intake Total 2100 250 Output Total 378 Balance 1722 250 - Medications Medications: Current Medications Amlodipine Besylate (Norvasc) 10 mg PO DAILY REPLACED BY [facility] Last Admin: 05/29/18 10:47 Dose: 10 mg Clonidine HCl (Catapres-Tts2 0.2 Mg/24 Hr) 1 patch TD Q7D@0700 PATTI Dicyclomine HCl (Bentyl) 10 mg PO TID REPLACED BY [facility] Last Admin: 05/29/18 13:19 Dose: 10 mg Digoxin (Lanoxin) 0.25 mg PO 1400 PATTI Last Admin: 05/29/18 13:19 Dose: 0.25 mg Ergocalciferol (Drisdol 50,000 Intl Units Cap) 1 cap PO Q7D REPLACED BY [facility] Last Admin: 05/29/18 10:48 Dose: Not Given Gabapentin (Neurontin) 300 mg PO BID REPLACED BY [facility]; Protocol Last Admin: 05/29/18 10:47 Dose: 300 mg Levetiracetam 750 mg/ Sodium (Chloride) 107.5 mls @ 322.5 mls/hr IV Q12H REPLACED BY [facility] Last Admin: 05/29/18 05:00 Dose: 322.5 mls/hr Cefepime HCl (Maxipime 2gm) 2 gm in 100 mls @ 100 mls/hr IVPB Q8 REPLACED BY [facility]; Protocol Stop: 06/01/18 08:46 Last Admin: 05/29/18 13:19 Dose: 100 mls/hr Linezolid (Zyvox 600mg/300ml D5w) 600 mg in 300 mls @ 200 mls/hr IVPB Q12 REPLACED BY [facility]; Protocol Stop: 06/03/18 10:01 Last Admin: 05/29/18 10:50 Dose: 200 mls/hr Nicardipine HCl (Cardene Iv Premix) 20 mg in 200 mls @ 50 mls/hr IV .Q4H PRN; Protocol PRN Reason: TITRATE PER MD ORDER Last Titration: 05/29/18 11:46 Dose: 0 mg/hr, 0 mls/hr Insulin Detemir (Levemir) 20 unit SC Q12H PATTI Insulin Human Lispro (Humalog Low) 0 units SC ACHS REPLACED BY [facility]; Protocol Last Admin: 05/29/18 11:33 Dose: Not Given Levalbuterol HCl (Xopenex) 1.25 mg IH [id number] REPLACED BY [facility] Last Admin: 05/29/18 14:34 Dose: 1.25 mg Losartan Potassium (Cozaar) 100 mg PO QPM REPLACED BY [facility] Last Admin: 05/28/18 17:41 Dose: 100 mg Metoclopramide HCl (Reglan) 5 mg PO HS REPLACED BY [facility] Last Admin: 05/28/18 22:09 Dose: 5 mg Metoprolol Tartrate (Lopressor) 25 mg PO BID REPLACED BY [facility] Last Admin: 05/29/18 10:49 Dose: 25 mg Pantoprazole Sodium (Protonix Inj) 40 mg IVP DAILY REPLACED BY [facility] Last Admin: 05/29/18 10:47 Dose: 40 mg Venlafaxine HCl (Effexor Xr) 75 mg PO DAILY REPLACED BY [facility] Last Admin: 05/29/18 10:48 Dose: 75 mg - Labs Labs: 05/29/18 06:15 05/29/18 06:15 PT 14.3 SECONDS (9.4-12.5) H 05/21/18 10:15 INR 1.24 05/21/18 10:15 APTT 27.9 Seconds (25.1-36.5) 05/21/18 10:15 - Head Exam Head Exam: ATRAUMATIC, NORMAL INSPECTION - Eye Exam Eye Exam: EOMI, Normal appearance - ENT Exam ENT Exam: Mucous Membranes Moist Additional comments: ET in place - Neck Exam Neck Exam: Normal Inspection Assessment and Plan (1) Anxiety Status: Acute (2) Hyperglycemia Status: Acute (3) Hypertension Status: Acute (4) Seizure Status: Acute (5) Abdominal pain Status: Acute (6) Abnormal EKG Status: Acute (7) Abscess Status: Acute (8) Chest pain Status: Acute (9) Dehydration Status: Acute (10) Diabetic gastroparesis Status: Acute (11) LAUREN (generalized anxiety disorder) Status: Acute (12) Hyperkalemia Status: Acute (13) Hypokalemia Status: Acute (14) Hypoxia Status: Acute (15) Intractable abdominal pain Status: Acute (16) Intractable epigastric abdominal pain Status: Acute (17) Intractable vomiting Status: Acute (18) MDD (major depressive disorder) Status: Acute (19) 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
--- NOTE | 2018-05-29 15:08 | PN ---
DATE: 05/29/2018 PULMONARY PROGRESS NOTE SUBJECTIVE: The patient was seen and examined on ventilator in the intensive care unit. She remains poorly responsive to verbal commands. PHYSICAL EXAMINATION: VITAL SIGNS: Her temperature is 98.4, pulse 89, respirations 22 and pulse oximetry is 96 on 35% FiO2. HEAD, EAR, NOSE AND THROAT: Within normal limits. NECK: Supple. There is no jugular vein distention. She is orally intubated. CARDIOVASCULAR: S1, S2. No S3. Regular. PULMONARY: Few scattered rhonchi. No wheezing. GI: Soft, nontender. No organomegaly. EXTREMITIES: No pedal edema. No cyanosis. NEUROLOGIC: No focal deficits. ASSESSMENT: 1. Acute respiratory failure. 2. Severe encephalopathy. PLAN: I have reviewed today's arterial blood gases. Her pH is 7.40, PCO2 is 37 and PO2 of 86. This is on 35% FiO2 with tidal volume of 400, respiratory rate of 12 and PEEP of 5. Her sodium is 137, potassium 3.6, blood sugar is slightly elevated. Her WBCs are 13.2, hemoglobin of 8.5. We will await tracheostomy; the patient should be able to get weaned gradually. Her mental status will remain the main limiting factor for more rapid weaning off the ventilator. Jose G Ibrahim MD
[2018-05-29 16:08] LABS: INR 1.04; PARTIAL THROMBOPLASTIN TIME 28.3 Seconds (25.1-36.5); PROTHROMBIN TIME 11.9 SECONDS (9.4-12.5)
[2018-05-29] MEDS ORDERED: Insulin Detemir 100 units/ml Vial (Levemir) SC SCH (22:00)
[2018-05-30] MEDS: Levalbuterol 1.25 MG/3 ML Inhal Soln UD IH SCH ×4 (01:26→19:18)
[2018-05-30] MEDS: Cefepime IV 2 gm in NS 2 GM/100 ML BAG IVPB SCH ×3 (05:14→22:58)
[2018-05-30 05:24] LABS: ARTERIAL BLOOD GAS HCO3 21.1 mmol/L (21-28); ARTERIAL BLOOD GAS HEMOGLOBIN 9.6 g/dL (11.7-17.4); ARTERIAL BLOOD GAS O2 CAPACITY 13.5 mL/dl (16-24); ARTERIAL BLOOD GAS O2 SAT 96.3 % (95-98); ARTERIAL BLOOD GAS PCO2 34 mm/Hg (35-45); ARTERIAL BLOOD GAS TCO2 22.1 mmol.L (22-28)
[2018-05-30 06:23] LABS: BASO # 0.02 K/mm3 (0.0-2.0); BASO % 0.1 % (0.0-3.0); EOS # 0.2 (0.0-0.7); EOS % 0.9 % (1.5-5.0); GRAN # 15.12 (1.4-6.5); GRAN % 90.6 % (50.0-68.0); HEMOGLOBIN 8.9 g/dL (12.0-16.0); LYMPH # 1.1 (1.2-3.4); LYMPH % 6.7 % (22.0-35.0); MEAN CORPUSCULAR HEMOGLOBIN 25.1 pg (25.0-35.0); MEAN CORPUSCULAR HGB CONC 31.3 g/dl (31.0-37.0); MEAN PLATELET VOLUME 9.8 fl (7.0-11.0); MONO # 0.3 (0.1-0.6); MONO % 1.7 % (1.0-6.0); PLATELET COUNT 323 10^3/uL (120.0-450.0); RBC 3.55 10^6/uL (3.5-6.1); RED CELL DISTRIBUTION WIDTH 14.5 % (11.5-14.5); WHITE BLOOD COUNT 16.7 10^3/uL (4.5-11.0)
[2018-05-30 08:18] LABS: EOSINOPHIL 1 % (0.0-3.0); LYMPHOCYTE 5 % (22.0-35.0); MONOCYTE 2 % (1.0-6.0); NEUTROPHIL 92 % (50.0-70.0)
[2018-05-30 08:19] LABS: PLATELET ESTIMATE NORMAL (NORMAL)
--- NOTE | 2018-05-30 08:25 | CP.CCUPN ---
<Jose Isidro - Last Filed: 05/30/18 12:15> CCU Subjective - Physician Review Subjective (Free Text): Jose Isidro PGY-1 Progress Note for ICU Patient seen and evaluated at bedside. No acute events reported overnight. Patient intubated, off sedation. Afebrile overnight. Current vent settings 35/5/12/400. Patient spontaneously opens her eyes and has spontaneous movements of her extremities. Further ROS unable to be obtained due to clinical condition. CCU Objective - Vital Signs / Intake & Output Vital Signs (Last 4 hours): Vital Signs Temp Pulse BP Pulse Ox 05/30/18 07:00 99.3 F 99 H 159/76 H 91 L 05/30/18 06:00 99.1 F 102 H 159/80 H 96 05/30/18 05:00 99.3 F 111 H 159/85 H 95 Intake and Output (Last 8hrs): Intake & Output 05/29/18 05/30/18 05/30/18 22:59 06:59 14:59 Intake Total 950 Output Total 3252 Balance -2302 Weight 70.76 kg Intake: IV 950 abx 500 cardene 350 keppra 100 Output: Urine 3250 Urethral (Wan) 3250 Stool 2 Other: # Bowel Movements 2 - Physical Exam Head: Positive for: Atraumatic, Normocephalic Pupils: Positive for: Sluggish, Other (Closes eyes upon shining light) Extroacular Muscles: Positive for: EOMI Conjunctiva: Positive for: Normal Mouth: Positive for: Moist Mucous Membranes Pharnyx: Positive for: Other (Intubated.) Nose (External): Positive for: Other (NGT in place) Neck: Positive for: Normal Range of Motion Respiratory/Chest: Positive for: Clear to Auscultation, Good Air Exchange. Nega tive for: Respiratory Distress, Accessory Muscle Use Cardiovascular: Positive for: Regular Rate and Rhythm, Normal S1, S2. Negative for: Murmurs Abdomen: Negative for: Tenderness, Distention, Peritoneal Signs Back: Positive for: Normal Inspection Upper Extremity: Positive for: Normal Inspection. Negative for: Cyanosis, Edema Lower Extremity: Positive for: Other (Right foot amputation noted). Negative for: Edema Neurological: Positive for: Motor Func Grossly Intact. Negative for: CN II-XII Intact, Speech Normal Skin: Positive for: Warm, Dry, Normal Color. Negative for: Rashes Psychiatric: Positive for: Alert. Negative for: Oriented x 3, Normal Insight, Normal Concentration - Medications Active Medications: Active Medications Generic Name Dose Route Start Last Admin Trade Name Freq PRN Reason Stop Dose Admin Amlodipine Besylate 10 mg 05/24/18 11:13 05/29/18 10:47 Norvasc PO 10 mg DAILY PATTI Administration Clonidine HCl 1 patch 05/24/18 11:15 Catapres-Tts2 0.2 Mg/24 Hr TD Q7D@0700 PATTI Dicyclomine HCl 10 mg 05/19/18 18:00 05/29/18 17:32 Bentyl PO 10 mg TID PATTI Administration Digoxin 0.25 mg 05/28/18 14:00 05/29/18 13:19 Lanoxin PO 0.25 mg 1400 PATTI Administration Ergocalciferol 1 cap 05/22/18 07:15 05/29/18 10:48 Drisdol 50,000 Intl Units Cap PO Not Given Q7D PATTI Gabapentin 300 mg 05/19/18 18:00 05/29/18 17:31 Neurontin PO 300 mg BID PATTI Administration Protocol Levetiracetam 750 mg/ Sodium 107.5 mls @ 322.5 mls/hr 05/22/18 18:00 05/30/18 05:14 Chloride IV 322.5 mls/hr Q12H PATTI Administration Cefepime HCl 2 gm in 100 mls @ 100 mls/hr 05/27/18 08:45 05/30/18 05:14 Maxipime 2gm IVPB 06/01/18 08:46 100 mls/hr Q8 PATTI Administration Protocol Linezolid 600 mg in 300 mls @ 200 mls/hr 05/27/18 10:00 05/29/18 22:13 Zyvox 600mg/300ml D5w IVPB 06/03/18 10:01 200 mls/hr Q12 PATTI Administration Protocol Nicardipine HCl 20 mg in 200 mls @ 50 mls/hr 05/27/18 09:35 05/29/18 22:30 Cardene Iv Premix IV 5 mg/hr .Q4H PRN 50 mls/hr TITRATE PER MD ORDER Titration Protocol 5 MG/HR Insulin Detemir 10 unit 05/30/18 10:00 Levemir SC Q12 PATTI Insulin Human Lispro 0 units 05/28/18 14:06 05/29/18 22:08 Humalog Low SC Not Given ACHS [facility] Protocol Levalbuterol HCl 1.25 mg 05/20/18 08:00 05/30/18 08:04 Xopenex IH 1.25 mg [id number] PATTI Administration Losartan Potassium 100 mg 05/24/18 18:00 05/29/18 17:33 Cozaar PO Not Given QPM PATTI Metoclopramide HCl 5 mg 05/19/18 22:00 05/29/18 22:13 Reglan PO 5 mg HS PATTI Administration Metoprolol Tartrate 25 mg 05/26/18 18:00 05/29/18 17:33 Lopressor PO Not Given BID PATTI Pantoprazole Sodium 40 mg 05/21/18 10:00 05/29/18 10:47 Protonix Inj IVP 40 mg DAILY PATTI Administration Venlafaxine HCl 75 mg 05/20/18 10:00 05/29/18 10:48 Effexor Xr PO 75 mg DAILY PATTI Administration - Patient Studies Lab Studies: Microbiology Studies 05/27/18 10:20 Gram Stain - Final Sputum Sputum Culture - Final NORMAL ORAL MARIA ESTHER 05/27/18 10:15 Blood Culture - Preliminary Blood-Venous NO GROWTH AFTER 48 HOURS 05/27/18 09:55 Blood Culture - Preliminary Blood-Venous NO GROWTH AFTER 48 HOURS Lab Studies 05/30/18 05/30/18 05/30/18 Range/Units 08:03 06:09 06:00 WBC (4.5-11.0) 10^3/uL RBC (3.5-6.1) 10^6/uL Hgb (12.0-16.0) g/dL Hct (36.0-48.0) % MCV (80.0-105.0) fl MCH (25.0-35.0) pg MCHC (31.0-37.0) g/dl RDW (11.5-14.5) % Plt Count (120.0-450.0) 10^3/uL MPV (7.0-11.0) fl Gran % (50.0-68.0) % Lymph % (Auto) (22.0-35.0) % Gaston % (Auto) (1.0-6.0) % Eos % (Auto) (1.5-5.0) % Baso % (Auto) (0.0-3.0) % Gran # (1.4-6.5) Lymph # (Auto) (1.2-3.4) Gaston # (Auto) (0.1-0.6) Eos # (Auto) (0.0-0.7) Baso # (Auto) (0.0-2.0) K/mm3 Neutrophils % (Manual) (50.0-70.0) % Lymphocytes % (Manual) (22.0-35.0) % Monocytes % (Manual) (1.0-6.0) % Eosinophils % (Manual) (0.0-3.0) % Platelet Evaluation (NORMAL) PT (9.4-12.5) SECONDS INR APTT (25.1-36.5) Seconds pCO2 (35-45) mm/Hg pO2 (80-100) mm/Hg HCO3 (21-28) mmol/L ABG pH (7.35-7.45) ABG Total CO2 (22-28) mmol.L ABG O2 Saturation (95-98) % ABG O2 Content (15-23) ML/dl ABG Base Excess (-2.0-3.0) mmol/L ABG Hemoglobin (11.7-17.4) g/dL ABG Carboxyhemoglobin (0.5-1.5) % POC ABG HHb (Measured) (0-5) % ABG Methemoglobin (0.0-3.0) % ABG O2 Capacity (16-24) mL/dl Hgb O2 Saturation (95.0-98.0) % FiO2 % POC Glucose (mg/dL) 271 H (65-110) mg/dL Troponin I < 0.01 ng/mL Digoxin 0.8 (0.8-2.0) ng/mL 05/30/18 05/30/18 05/29/18 Range/Units 06:00 05:10 20:59 WBC 16.7 H D (4.5-11.0) 10^3/uL RBC 3.55 (3.5-6.1) 10^6/uL Hgb 8.9 L (12.0-16.0) g/dL Hct 28.4 L (36.0-48.0) % MCV 80.0 (80.0-105.0) fl MCH 25.1 (25.0-35.0) pg MCHC 31.3 (31.0-37.0) g/dl RDW 14.5 (11.5-14.5) % Plt Count 323 (120.0-450.0) 10^3/uL MPV 9.8 (7.0-11.0) fl Gran % 90.6 H (50.0-68.0) % Lymph % (Auto) 6.7 L (22.0-35.0) % Gaston % (Auto) 1.7 (1.0-6.0) % Eos % (Auto) 0.9 L (1.5-5.0) % Baso % (Auto) 0.1 (0.0-3.0) % Gran # 15.12 H (1.4-6.5) Lymph # (Auto) 1.1 L (1.2-3.4) Gaston # (Auto) 0.3 (0.1-0.6) Eos # (Auto) 0.2 (0.0-0.7) Baso # (Auto) 0.02 (0.0-2.0) K/mm3 Neutrophils % (Manual) 92 H (50.0-70.0) % Lymphocytes % (Manual) 5 L (22.0-35.0) % Monocytes % (Manual) 2 (1.0-6.0) % Eosinophils % (Manual) 1 (0.0-3.0) % Platelet Evaluation Normal (NORMAL) PT (9.4-12.5) SECONDS INR APTT (25.1-36.5) Seconds pCO2 34 L (35-45) mm/Hg pO2 82.0 (80-100) mm/Hg HCO3 21.1 (21-28) mmol/L ABG pH 7.40 (7.35-7.45) ABG Total CO2 22.1 (22-28) mmol.L ABG O2 Saturation 96.3 (95-98) % ABG O2 Content 13.0 L (15-23) ML/dl ABG Base Excess -3.2 L (-2.0-3.0) mmol/L ABG Hemoglobin 9.6 L (11.7-17.4) g/dL ABG Carboxyhemoglobin 0.7 (0.5-1.5) % POC ABG HHb (Measured) 3.7 (0-5) % ABG Methemoglobin 0.3 (0.0-3.0) % ABG O2 Capacity 13.5 L (16-24) mL/dl Hgb O2 Saturation 95.4 (95.0-98.0) % FiO2 35.0 % POC Glucose (mg/dL) 122 H (65-110) mg/dL Troponin I ng/mL Digoxin (0.8-2.0) ng/mL 05/29/18 05/29/18 05/29/18 Range/Units 15:55 15:40 11:25 WBC (4.5-11.0) 10^3/uL RBC (3.5-6.1) 10^6/uL Hgb (12.0-16.0) g/dL Hct (36.0-48.0) % MCV (80.0-105.0) fl MCH (25.0-35.0) pg MCHC (31.0-37.0) g/dl RDW (11.5-14.5) % Plt Count (120.0-450.0) 10^3/uL MPV (7.0-11.0) fl Gran % (50.0-68.0) % Lymph % (Auto) (22.0-35.0) % Gaston % (Auto) (1.0-6.0) % Eos % (Auto) (1.5-5.0) % Baso % (Auto) (0.0-3.0) % Gran # (1.4-6.5) Lymph # (Auto) (1.2-3.4) Gaston # (Auto) (0.1-0.6) Eos # (Auto) (0.0-0.7) Baso # (Auto) (0.0-2.0) K/mm3 Neutrophils % (Manual) (50.0-70.0) % Lymphocytes % (Manual) (22.0-35.0) % Monocytes % (Manual) (1.0-6.0) % Eosinophils % (Manual) (0.0-3.0) % Platelet Evaluation (NORMAL) PT 11.9 (9.4-12.5) SECONDS INR 1.04 APTT 28.3 (25.1-36.5) Seconds pCO2 (35-45) mm/Hg pO2 (80-100) mm/Hg HCO3 (21-28) mmol/L ABG pH (7.35-7.45) ABG Total CO2 (22-28) mmol.L ABG O2 Saturation (95-98) % ABG O2 Content (15-23) ML/dl ABG Base Excess (-2.0-3.0) mmol/L ABG Hemoglobin (11.7-17.4) g/dL ABG Carboxyhemoglobin (0.5-1.5) % POC ABG HHb (Measured) (0-5) % ABG Methemoglobin (0.0-3.0) % ABG O2 Capacity (16-24) mL/dl Hgb O2 Saturation (95.0-98.0) % FiO2 % POC Glucose (mg/dL) 143 H 130 H (65-110) mg/dL Troponin I ng/mL Digoxin (0.8-2.0) ng/mL Laboratory Results - last 24 hr 05/29/18 05/29/18 05/29/18 11:25 15:40 15:55 WBC RBC Hgb Hct MCV MCH MCHC RDW Plt Count MPV Gran % Lymph % (Auto) Gaston % (Auto) Eos % (Auto) Baso % (Auto) Gran # Lymph # (Auto) Gaston # (Auto) Eos # (Auto) Baso # (Auto) Neutrophils % (Manual) Lymphocytes % (Manual) Monocytes % (Manual) Eosinophils % (Manual) Platelet Evaluation PT 11.9 INR 1.04 APTT 28.3 pCO2 pO2 HCO3 ABG pH ABG Total CO2 ABG O2 Saturation ABG O2 Content ABG Base Excess ABG Hemoglobin ABG Carboxyhemoglobin POC ABG HHb (Measured) ABG Methemoglobin ABG O2 Capacity Hgb O2 Saturation FiO2 POC Glucose (mg/dL) 130 H 143 H Troponin I Digoxin 05/29/18 05/30/18 05/30/18 20:59 05:10 06:00 WBC 16.7 H D RBC 3.55 Hgb 8.9 L Hct 28.4 L MCV 80.0 MCH 25.1 MCHC 31.3 RDW 14.5 Plt Count 323 MPV 9.8 Gran % 90.6 H Lymph % (Auto) 6.7 L Gaston % (Auto) 1.7 Eos % (Auto) 0.9 L Baso % (Auto) 0.1 Gran # 15.12 H Lymph # (Auto) 1.1 L Gaston # (Auto) 0.3 Eos # (Auto) 0.2 Baso # (Auto) 0.02 Neutrophils % (Manual) 92 H Lymphocytes % (Manual) 5 L Monocytes % (Manual) 2 Eosinophils % (Manual) 1 Platelet Evaluation Normal PT INR APTT pCO2 34 L pO2 82.0 HCO3 21.1 ABG pH 7.40 ABG Total CO2 22.1 ABG O2 Saturation 96.3 ABG O2 Content 13.0 L ABG Base Excess -3.2 L ABG Hemoglobin 9.6 L ABG Carboxyhemoglobin 0.7 POC ABG HHb (Measured) 3.7 ABG Methemoglobin 0.3 ABG O2 Capacity 13.5 L Hgb O2 Saturation 95.4 FiO2 35.0 POC Glucose (mg/dL) 122 H Troponin I Digoxin 05/30/18 05/30/18 05/30/18 06:00 06:09 08:03 WBC RBC Hgb Hct MCV MCH MCHC RDW Plt Count MPV Gran % Lymph % (Auto) Gaston % (Auto) Eos % (Auto) Baso % (Auto) Gran # Lymph # (Auto) Gaston # (Auto) Eos # (Auto) Baso # (Auto) Neutrophils % (Manual) Lymphocytes % (Manual) Monocytes % (Manual) Eosinophils % (Manual) Platelet Evaluation PT INR APTT pCO2 pO2 HCO3 ABG pH ABG Total CO2 ABG O2 Saturation ABG O2 Content ABG Base Excess ABG Hemoglobin ABG Carboxyhemoglobin POC ABG HHb (Measured) ABG Methemoglobin ABG O2 Capacity Hgb O2 Saturation FiO2 POC Glucose (mg/dL) 271 H Troponin I < 0.01 Digoxin 0.8 Radiology Impressions: Radiology Impressions Chest X-Ray 05/29/18 10:42 IMPRESSION: Malpositioned endotracheal tube with tip above the clavicles. Repositioning is again recommended. Otherwise, stable tubes and lines. Improved right lung aeration with persistent patchy infiltrates medially. Chest X-Ray 05/29/18 11:25 IMPRESSION: Interval reposition of endotracheal tube now in satisfactory position. No other significant interval change. Fingerstick Blood Sugar Results: 122 Review of Systems - Review of Systems Systems not reviewed;Unavailable: Intubated Review of Systems: 12 point ROS unable to be obtained due to clinical condition Critical Care Progress Note - Extremities/Vascular Does the Patient have a Wan Catheter?: Yes Does the Patient need a Wan Catheter?: Yes - Nutrition Nutrition: Nutrition Category Date Time Status NPO Diet [DIET] Diets 05/19/18 Dinner Ordered Assessment/Plan - Assessment and Plan (Free Text) Assessment: Ms. Monaco is a 57 year old female with PMHx of HTN, uncontrolled DM2 complicated by retinopathy/gastroparesis, MDD, LAUREN, and TIA/CVA who was admitted for evaluation and treatment of seizure like activity. Patient suspected of experiencing aspiration. She was intubated/sedated due to an inability to protect her airway. Currently off sedation. Trach placement later today. Neurology AMS 2/2 Status Epilepticus - 05/19/18 CT Head without Contrast- No acute findings - 05/20/2019 CT Head without Contrast- No evidence of acute intracranial hemorrhage mass effect or midline shift. No significant interval changes noted - 05/22/2018 Brain MRI without Contrast- There are large areas of restricted diffusion/prolonged T2 signal changes within the the watershed zones of the occipito parietal and parietal and posterior frontal regions predominately involving the cortex.. Rule out watershed zone acute infarcts possibly related to prolonged seizures or hypertensive episode - 05/11/18 VEEG- moderate background slowing, left temporal interictal epileptiform discharges, left temporal slowing - continue on keppra 750mg IV q12 - 05/27/18 VEEG shows improving slowing/attenuation, no seizures and not in status epilepticus. - continue sedation vacation - neurology consulted- appreciate recommendations- posterior reversible encephalopathy syndrome (PRES)- minimal improvement in mental status Cardiovascular: PRES, Hx of HTN - continue clonidine 0.2mg/24 hours - continue amlodipine 10mg PO daily - Nicardipine drip discontinued this morning. Restart if sBP > 160 - Continue losartan 100mg PO daily as per cardio - cardiology consulted (Dr. Farmer)- appreciate recommendation. - Trop neg SVT- resolved - Increase lopressor to 50 mg PO BID with holding parameters. BP stable overnight - Continue Dig 0.25 mg daily Resp: Respiratory Failure s/p Seizure Aspiration - Intubated - continue weaning protocol via pressure support. Versed IVP q4 as needed for comfort as patient was biting ET tube this morning. - ENT consulted- Dr. Boyer - 05/28/18 CXR shows progression of bilateral infilatrates - 05/29/18 repeat CXR shows proper placement of endotracheal tube - head of bed > 35 degrees - conservative fluid management - continue oral hygiene - GI protonix and DVT prophylaxis- scds Aspiration Pneumonia, HAP, Severe Sepsis - 05/27/2018- CXR improving right sided perihilar infiltrate - Continue linezolid 600mg IV q12 and cefepime IV 2 gm q8 - procalcitonin 0.39, and rapid flu negative - infectious disease consulted (Dr. Sales)- appreciate recommendations - blood cx neg x2 after 48 hours - Normal sputum cx GI Hx of Gastroparesis - NPO - continue reglan 5mg mg PO QS - continue bentyl 10mg PO TID - continue tube feeds to Glucerna 50, free water flushes 300 q4 as recommended by RD - GI consulted (Dr. Zambrano)- not candidate for PEG due to gastroparesis. PEJ placement recommended. Further recs appreciated. GI ppx: - protonix 40mg PO daily Endo Hx DM - Levemir to continue 40 units SC BID, BGs highest 382, recently 130 - continue lispro insulin sliding scale low - fingersticks ACHS - maintain euglycemia - Continue Glucerna tube feedings - Endocrinology consulted Dr Coe- appreciate recommendations. Renal ANTONIO - likely pre-renal in nature, BUN creatinine- returned to normal range - monitor closely via BMP/Creatinine - nephrology consulted- appreciate recommendations Heme Anemia - microcytic - hemoglobin improved to 8.9 - FOBT negative - serum iron- low, tibc- low, ferritin- wnl , folate- wnl, b12- elevated, anemia of chronic disease vs iron deficiency anemia - recommend starting iron supplements DVT Ppx - SCD Patient seen, case reviewed and plan approved by Dr. Martha Dow. Jose Isidro, PGY-1 <Michael Dow - Last Filed: 05/30/18 18:17> CCU Objective - Vital Signs / Intake & Output Vital Signs (Last 4 hours): Vital Signs Pulse BP 05/30/18 17:28 81 166/85 H Intake and Output (Last 8hrs): Intake & Output 05/30/18 05/30/18 05/30/18 06:59 14:59 22:59 Weight 70.76 kg - Medications Active Medications: Active Medications Generic Name Dose Route Start Last Admin Trade Name Freq PRN Reason Stop Dose Admin Amlodipine Besylate 10 mg 05/24/18 11:13 05/30/18 09:12 Norvasc PO 10 mg DAILY PATTI Administration Clonidine HCl 1 patch 05/24/18 11:15 Catapres-Tts2 0.2 Mg/24 Hr TD Q7D@0700 PATTI Dicyclomine HCl 10 mg 05/19/18 18:00 05/30/18 17:29 Bentyl PO 10 mg TID PATTI Administration Digoxin 0.125 mg 05/30/18 10:03 05/30/18 16:26 Digoxin PO 0.125 mg 1400 PATTI Administration Ergocalciferol 1 cap 05/22/18 07:15 05/29/18 10:48 Drisdol 50,000 Intl Units Cap PO Not Given Q7D PATTI Gabapentin 300 mg 05/19/18 18:00 05/30/18 17:29 Neurontin PO 300 mg BID PATTI Administration Protocol Levetiracetam 750 mg/ Sodium 107.5 mls @ 322.5 mls/hr 05/22/18 18:00 05/30/18 17:30 Chloride IV 322.5 mls/hr Q12H PATTI Administration Cefepime HCl 2 gm in 100 mls @ 100 mls/hr 05/27/18 08:45 05/30/18 16:32 Maxipime 2gm IVPB 06/01/18 08:46 100 mls/hr Q8 PATTI Administration Protocol Linezolid 600 mg in 300 mls @ 200 mls/hr 05/27/18 10:00 05/30/18 09:13 Zyvox 600mg/300ml D5w IVPB 06/03/18 10:01 200 mls/hr Q12 PATTI Administration Protocol Nicardipine HCl 20 mg in 200 mls @ 50 mls/hr 05/27/18 09:35 05/29/18 22:30 Cardene Iv Premix IV 5 mg/hr .Q4H PRN 50 mls/hr TITRATE PER MD ORDER Titration Protocol 5 MG/HR Insulin Detemir 10 unit 05/30/18 10:00 05/30/18 16:30 Levemir SC Not Given Q12 PATTI Insulin Human Lispro 0 units 05/28/18 14:06 05/30/18 16:29 Humalog Low SC 4 unit ACHS PATTI Administration Protocol Levalbuterol HCl 1.25 mg 05/20/18 08:00 05/30/18 13:21 Xopenex IH 1.25 mg [id number] PATTI Administration Losartan Potassium 100 mg 05/24/18 18:00 05/30/18 17:29 Cozaar PO 100 mg QPM PATTI Administration Metoclopramide HCl 5 mg 05/19/18 22:00 05/29/18 22:13 Reglan PO 5 mg HS PATTI Administration Metoprolol Tartrate 50 mg 05/30/18 12:26 05/30/18 17:28 Lopressor PO 50 mg BID PATTI Administration Midazolam HCl 1 mg 05/30/18 12:25 Versed Inj IVP Q4H PRN Anxiety Pantoprazole Sodium 40 mg 05/21/18 10:00 05/30/18 09:13 Protonix Inj IVP 40 mg DAILY PATTI Administration Venlafaxine HCl 75 mg 05/20/18 10:00 05/30/18 16:09 Effexor Xr PO Not Given DAILY PATTI - Patient Studies Lab Studies: Microbiology Studies 05/27/18 10:15 Blood Culture - Preliminary Blood-Venous NO GROWTH AFTER 3 DAYS 05/27/18 09:55 Blood Culture - Preliminary Blood-Venous NO GROWTH AFTER 3 DAYS Lab Studies 05/30/18 05/30/18 05/30/18 Range/Units 16:26 11:33 08:03 WBC (4.5-11.0) 10^3/uL RBC (3.5-6.1) 10^6/uL Hgb (12.0-16.0) g/dL Hct (36.0-48.0) % MCV (80.0-105.0) fl MCH (25.0-35.0) pg MCHC (31.0-37.0) g/dl RDW (11.5-14.5) % Plt Count (120.0-450.0) 10^3/uL MPV (7.0-11.0) fl Gran % (50.0-68.0) % Lymph % (Auto) (22.0-35.0) % Gaston % (Auto) (1.0-6.0) % Eos % (Auto) (1.5-5.0) % Baso % (Auto) (0.0-3.0) % Gran # (1.4-6.5) Lymph # (Auto) (1.2-3.4) Gaston # (Auto) (0.1-0.6) Eos # (Auto) (0.0-0.7) Baso # (Auto) (0.0-2.0) K/mm3 Neutrophils % (Manual) (50.0-70.0) % Lymphocytes % (Manual) (22.0-35.0) % Monocytes % (Manual) (1.0-6.0) % Eosinophils % (Manual) (0.0-3.0) % Platelet Evaluation (NORMAL) pCO2 (35-45) mm/Hg pO2 (80-100) mm/Hg HCO3 (21-28) mmol/L ABG pH (7.35-7.45) ABG Total CO2 (22-28) mmol.L ABG O2 Saturation (95-98) % ABG O2 Content (15-23) ML/dl ABG Base Excess (-2.0-3.0) mmol/L ABG Hemoglobin (11.7-17.4) g/dL ABG Carboxyhemoglobin (0.5-1.5) % POC ABG HHb (Measured) (0-5) % ABG Methemoglobin (0.0-3.0) % ABG O2 Capacity (16-24) mL/dl Hgb O2 Saturation (95.0-98.0) % FiO2 % Sodium (132-148) mmol/L Potassium (3.6-5.0) mmol/L Chloride (98-107) mmol/L Carbon Dioxide (21-33) mmol/L Anion Gap (10-20) BUN (7-21) mg/dL Creatinine (0.7-1.2) mg/dl Est GFR ( Amer) Est GFR (Non-Af Amer) POC Glucose (mg/dL) 308 H 264 H 271 H (65-110) mg/dL Random Glucose (70-110) mg/dL Calcium (8.4-10.5) mg/dL Phosphorus (2.5-4.5) mg/dL Magnesium (1.7-2.2) mg/dL Total Bilirubin (0.2-1.3) mg/dL AST (14-36) U/L ALT (7-56) U/L Alkaline Phosphatase (38-126) U/L Troponin I ng/mL Total Protein (5.8-8.3) g/dL Albumin (3.0-4.8) g/dL Globulin gm/dL Albumin/Globulin Ratio (1.1-1.8) Digoxin (0.8-2.0) ng/mL 05/30/18 05/30/18 05/30/18 Range/Units 06:45 06:45 06:00 WBC (4.5-11.0) 10^3/uL RBC (3.5-6.1) 10^6/uL Hgb (12.0-16.0) g/dL Hct (36.0-48.0) % MCV (80.0-105.0) fl MCH (25.0-35.0) pg MCHC (31.0-37.0) g/dl RDW (11.5-14.5) % Plt Count (120.0-450.0) 10^3/uL MPV (7.0-11.0) fl Gran % (50.0-68.0) % Lymph % (Auto) (22.0-35.0) % Gaston % (Auto) (1.0-6.0) % Eos % (Auto) (1.5-5.0) % Baso % (Auto) (0.0-3.0) % Gran # (1.4-6.5) Lymph # (Auto) (1.2-3.4) Gaston # (Auto) (0.1-0.6) Eos # (Auto) (0.0-0.7) Baso # (Auto) (0.0-2.0) K/mm3 Neutrophils % (Manual) (50.0-70.0) % Lymphocytes % (Manual) (22.0-35.0) % Monocytes % (Manual) (1.0-6.0) % Eosinophils % (Manual) (0.0-3.0) % Platelet Evaluation (NORMAL) pCO2 (35-45) mm/Hg pO2 (80-100) mm/Hg HCO3 (21-28) mmol/L ABG pH (7.35-7.45) ABG Total CO2 (22-28) mmol.L ABG O2 Saturation (95-98) % ABG O2 Content (15-23) ML/dl ABG Base Excess (-2.0-3.0) mmol/L ABG Hemoglobin (11.7-17.4) g/dL ABG Carboxyhemoglobin (0.5-1.5) % POC ABG HHb (Measured) (0-5) % ABG Methemoglobin (0.0-3.0) % ABG O2 Capacity (16-24) mL/dl Hgb O2 Saturation (95.0-98.0) % FiO2 % Sodium 135 (132-148) mmol/L Potassium 3.7 (3.6-5.0) mmol/L Chloride 107 (98-107) mmol/L Carbon Dioxide 25 (21-33) mmol/L Anion Gap 7 L (10-20) BUN 25 H (7-21) mg/dL Creatinine 0.9 (0.7-1.2) mg/dl Est GFR ( Amer) > 60 Est GFR (Non-Af Amer) > 60 POC Glucose (mg/dL) (65-110) mg/dL Random Glucose 262 H (70-110) mg/dL Calcium 8.1 L (8.4-10.5) mg/dL Phosphorus 3.8 (2.5-4.5) mg/dL Magnesium 1.8 (1.7-2.2) mg/dL Total Bilirubin 0.2 (0.2-1.3) mg/dL AST 24 (14-36) U/L ALT 24 (7-56) U/L Alkaline Phosphatase 144 H (38-126) U/L Troponin I < 0.01 ng/mL Total Protein 5.3 L (5.8-8.3) g/dL Albumin 2.4 L (3.0-4.8) g/dL Globulin 2.9 gm/dL Albumin/Globulin Ratio 0.8 L (1.1-1.8) Digoxin 0.8 (0.8-2.0) ng/mL 05/30/18 05/30/18 05/29/18 Range/Units 06:00 05:10 20:59 WBC 16.7 H D (4.5-11.0) 10^3/uL RBC 3.55 (3.5-6.1) 10^6/uL Hgb 8.9 L (12.0-16.0) g/dL Hct 28.4 L (36.0-48.0) % MCV 80.0 (80.0-105.0) fl MCH 25.1 (25.0-35.0) pg MCHC 31.3 (31.0-37.0) g/dl RDW 14.5 (11.5-14.5) % Plt Count 323 (120.0-450.0) 10^3/uL MPV 9.8 (7.0-11.0) fl Gran % 90.6 H (50.0-68.0) % Lymph % (Auto) 6.7 L (22.0-35.0) % Gaston % (Auto) 1.7 (1.0-6.0) % Eos % (Auto) 0.9 L (1.5-5.0) % Baso % (Auto) 0.1 (0.0-3.0) % Gran # 15.12 H (1.4-6.5) Lymph # (Auto) 1.1 L (1.2-3.4) Gaston # (Auto) 0.3 (0.1-0.6) Eos # (Auto) 0.2 (0.0-0.7) Baso # (Auto) 0.02 (0.0-2.0) K/mm3 Neutrophils % (Manual) 92 H (50.0-70.0) % Lymphocytes % (Manual) 5 L (22.0-35.0) % Monocytes % (Manual) 2 (1.0-6.0) % Eosinophils % (Manual) 1 (0.0-3.0) % Platelet Evaluation Normal (NORMAL) pCO2 34 L (35-45) mm/Hg pO2 82.0 (80-100) mm/Hg HCO3 21.1 (21-28) mmol/L ABG pH 7.40 (7.35-7.45) ABG Total CO2 22.1 (22-28) mmol.L ABG O2 Saturation 96.3 (95-98) % ABG O2 Content 13.0 L (15-23) ML/dl ABG Base Excess -3.2 L (-2.0-3.0) mmol/L ABG Hemoglobin 9.6 L (11.7-17.4) g/dL ABG Carboxyhemoglobin 0.7 (0.5-1.5) % POC ABG HHb (Measured) 3.7 (0-5) % ABG Methemoglobin 0.3 (0.0-3.0) % ABG O2 Capacity 13.5 L (16-24) mL/dl Hgb O2 Saturation 95.4 (95.0-98.0) % FiO2 35.0 % Sodium (132-148) mmol/L Potassium (3.6-5.0) mmol/L Chloride (98-107) mmol/L Carbon Dioxide (21-33) mmol/L Anion Gap (10-20) BUN (7-21) mg/dL Creatinine (0.7-1.2) mg/dl Est GFR ( Amer) Est GFR (Non-Af Amer) POC Glucose (mg/dL) 122 H (65-110) mg/dL Random Glucose (70-110) mg/dL Calcium (8.4-10.5) mg/dL Phosphorus (2.5-4.5) mg/dL Magnesium (1.7-2.2) mg/dL Total Bilirubin (0.2-1.3) mg/dL AST (14-36) U/L ALT (7-56) U/L Alkaline Phosphatase (38-126) U/L Troponin I ng/mL Total Protein (5.8-8.3) g/dL Albumin (3.0-4.8) g/dL Globulin gm/dL Albumin/Globulin Ratio (1.1-1.8) Digoxin (0.8-2.0) ng/mL 05/29/18 Range/Units 15:55 WBC (4.5-11.0) 10^3/uL RBC (3.5-6.1) 10^6/uL Hgb (12.0-16.0) g/dL Hct (36.0-48.0) % MCV (80.0-105.0) fl MCH (25.0-35.0) pg MCHC (31.0-37.0) g/dl RDW (11.5-14.5) % Plt Count (120.0-450.0) 10^3/uL MPV (7.0-11.0) fl Gran % (50.0-68.0) % Lymph % (Auto) (22.0-35.0) % Gaston % (Auto) (1.0-6.0) % Eos % (Auto) (1.5-5.0) % Baso % (Auto) (0.0-3.0) % Gran # (1.4-6.5) Lymph # (Auto) (1.2-3.4) Gaston # (Auto) (0.1-0.6) Eos # (Auto) (0.0-0.7) Baso # (Auto) (0.0-2.0) K/mm3 Neutrophils % (Manual) (50.0-70.0) % Lymphocytes % (Manual) (22.0-35.0) % Monocytes % (Manual) (1.0-6.0) % Eosinophils % (Manual) (0.0-3.0) % Platelet Evaluation (NORMAL) pCO2 (35-45) mm/Hg pO2 (80-100) mm/Hg HCO3 (21-28) mmol/L ABG pH (7.35-7.45) ABG Total CO2 (22-28) mmol.L ABG O2 Saturation (95-98) % ABG O2 Content (15-23) ML/dl ABG Base Excess (-2.0-3.0) mmol/L ABG Hemoglobin (11.7-17.4) g/dL ABG Carboxyhemoglobin (0.5-1.5) % POC ABG HHb (Measured) (0-5) % ABG Methemoglobin (0.0-3.0) % ABG O2 Capacity (16-24) mL/dl Hgb O2 Saturation (95.0-98.0) % FiO2 % Sodium (132-148) mmol/L Potassium (3.6-5.0) mmol/L Chloride (98-107) mmol/L Carbon Dioxide (21-33) mmol/L Anion Gap (10-20) BUN (7-21) mg/dL Creatinine (0.7-1.2) mg/dl Est GFR ( Amer) Est GFR (Non-Af Amer) POC Glucose (mg/dL) 143 H (65-110) mg/dL Random Glucose (70-110) mg/dL Calcium (8.4-10.5) mg/dL Phosphorus (2.5-4.5) mg/dL Magnesium (1.7-2.2) mg/dL Total Bilirubin (0.2-1.3) mg/dL AST (14-36) U/L ALT (7-56) U/L Alkaline Phosphatase (38-126) U/L Troponin I ng/mL Total Protein (5.8-8.3) g/dL Albumin (3.0-4.8) g/dL Globulin gm/dL Albumin/Globulin Ratio (1.1-1.8) Digoxin (0.8-2.0) ng/mL Laboratory Results - last 24 hr 05/29/18 05/29/18 05/30/18 15:55 20:59 05:10 WBC RBC Hgb Hct MCV MCH MCHC RDW Plt Count MPV Gran % Lymph % (Auto) Gaston % (Auto) Eos % (Auto) Baso % (Auto) Gran # Lymph # (Auto) Gaston # (Auto) Eos # (Auto) Baso # (Auto) Neutrophils % (Manual) Lymphocytes % (Manual) Monocytes % (Manual) Eosinophils % (Manual) Platelet Evaluation pCO2 34 L pO2 82.0 HCO3 21.1 ABG pH 7.40 ABG Total CO2 22.1 ABG O2 Saturation 96.3 ABG O2 Content 13.0 L ABG Base Excess -3.2 L ABG Hemoglobin 9.6 L ABG Carboxyhemoglobin 0.7 POC ABG HHb (Measured) 3.7 ABG Methemoglobin 0.3 ABG O2 Capacity 13.5 L Hgb O2 Saturation 95.4 FiO2 35.0 Sodium Potassium Chloride Carbon Dioxide Anion Gap BUN Creatinine Est GFR ( Amer) Est GFR (Non-Af Amer) POC Glucose (mg/dL) 143 H 122 H Random Glucose Calcium Phosphorus Magnesium Total Bilirubin AST ALT Alkaline Phosphatase Troponin I Total Protein Albumin Globulin Albumin/Globulin Ratio Digoxin 05/30/18 05/30/18 05/30/18 06:00 06:00 06:45 WBC 16.7 H D RBC 3.55 Hgb 8.9 L Hct 28.4 L MCV 80.0 MCH 25.1 MCHC 31.3 RDW 14.5 Plt Count 323 MPV 9.8 Gran % 90.6 H Lymph % (Auto) 6.7 L Gaston % (Auto) 1.7 Eos % (Auto) 0.9 L Baso % (Auto) 0.1 Gran # 15.12 H Lymph # (Auto) 1.1 L Gaston # (Auto) 0.3 Eos # (Auto) 0.2 Baso # (Auto) 0.02 Neutrophils % (Manual) 92 H Lymphocytes % (Manual) 5 L Monocytes % (Manual) 2 Eosinophils % (Manual) 1 Platelet Evaluation Normal pCO2 pO2 HCO3 ABG pH ABG Total CO2 ABG O2 Saturation ABG O2 Content ABG Base Excess ABG Hemoglobin ABG Carboxyhemoglobin POC ABG HHb (Measured) ABG Methemoglobin ABG O2 Capacity Hgb O2 Saturation FiO2 Sodium 135 Potassium 3.7 Chloride 107 Carbon Dioxide 25 Anion Gap 7 L BUN 25 H Creatinine 0.9 Est GFR ( Amer) > 60 Est GFR (Non-Af Amer) > 60 POC Glucose (mg/dL) Random Glucose 262 H Calcium 8.1 L Phosphorus 3.8 Magnesium 1.8 Total Bilirubin 0.2 AST 24 ALT 24 Alkaline Phosphatase 144 H Troponin I Total Protein 5.3 L Albumin 2.4 L Globulin 2.9 Albumin/Globulin Ratio 0.8 L Digoxin 0.8 05/30/18 05/30/18 05/30/18 06:45 08:03 11:33 WBC RBC Hgb Hct MCV MCH MCHC RDW Plt Count MPV Gran % Lymph % (Auto) Gaston % (Auto) Eos % (Auto) Baso % (Auto) Gran # Lymph # (Auto) Gaston # (Auto) Eos # (Auto) Baso # (Auto) Neutrophils % (Manual) Lymphocytes % (Manual) Monocytes % (Manual) Eosinophils % (Manual) Platelet Evaluation pCO2 pO2 HCO3 ABG pH ABG Total CO2 ABG O2 Saturation ABG O2 Content ABG Base Excess ABG Hemoglobin ABG Carboxyhemoglobin POC ABG HHb (Measured) ABG Methemoglobin ABG O2 Capacity Hgb O2 Saturation FiO2 Sodium Potassium Chloride Carbon Dioxide Anion Gap BUN Creatinine Est GFR ( Amer) Est GFR (Non-Af Amer) POC Glucose (mg/dL) 271 H 264 H Random Glucose Calcium Phosphorus Magnesium Total Bilirubin AST ALT Alkaline Phosphatase Troponin I < 0.01 Total Protein Albumin Globulin Albumin/Globulin Ratio Digoxin 05/30/18 16:26 WBC RBC Hgb Hct MCV MCH MCHC RDW Plt Count MPV Gran % Lymph % (Auto) Gaston % (Auto) Eos % (Auto) Baso % (Auto) Gran # Lymph # (Auto) Gaston # (Auto) Eos # (Auto) Baso # (Auto) Neutrophils % (Manual) Lymphocytes % (Manual) Monocytes % (Manual) Eosinophils % (Manual) Platelet Evaluation pCO2 pO2 HCO3 ABG pH ABG Total CO2 ABG O2 Saturation ABG O2 Content ABG Base Excess ABG Hemoglobin ABG Carboxyhemoglobin POC ABG HHb (Measured) ABG Methemoglobin ABG O2 Capacity Hgb O2 Saturation FiO2 Sodium Potassium Chloride Carbon Dioxide Anion Gap BUN Creatinine Est GFR ( Amer) Est GFR (Non-Af Amer) POC Glucose (mg/dL) 308 H Random Glucose Calcium Phosphorus Magnesium Total Bilirubin AST ALT Alkaline Phosphatase Troponin I Total Protein Albumin Globulin Albumin/Globulin Ratio Digoxin Radiology Impressions: Radiology Impressions Chest X-Ray 05/30/18 14:49 IMPRESSION: Patient is rotated to the right. There is a left-sided perihilar infiltrate and a minimal right-sided perihilar infiltrate unchanged. Tracheostomy in place Critical Care Progress Note - Nutrition Nutrition: Nutrition Category Date Time Status NPO Diet [DIET] Diets 05/19/18 Dinner Ordered Addendum Addendum: 05/30/18 18:17 ICU Attending Addendum Patient seen and examined. Case reviewed on round with housestaff. Agree with resident note above with the following additions/exceptions 57f with a hx of HTN, uncontrolled DM2 complicated by retinopathy/gastroparesis, MDD, LAUREN, and TIA/CVA who was admitted for evaluation and treatment of seizure like activity with concern for PRES as well. Neuro MRI revelas large areas of restricted diffusion/prolonged T2 signal changes within the the watershed zones of the occipito parietal and parietal and posterior frontal regions predominately involving the cortex. Suggests PRES or status epil dx To tx PRES, need to cont to control BP. off nicardpine drip now cont po antihypertensive PRN benzo for agitation empiric abx tx asp pna needs better gluc control, will f/u endo recs planned for trach this afternoon Rest of care above Michael Dow MD Pulmonary Critical Care Attending
[2018-05-30 08:29] LABS: ALB/GLOB RATIO 0.8 (1.1-1.8); ALBUMIN 2.4 g/dL (3.0-4.8); ALT/SGPT 24 U/L (7-56); AST/SGOT 24 U/L (14-36); BLOOD UREA NITROGEN 25 mg/dL (7-21); CALCIUM 8.1 mg/dL (8.4-10.5); GFR NON-AFRICAN AMERICAN > 60
[2018-05-30] MEDS: Linezolid 600 mg in D5W 300 ml 600 MG/300 ML BAG IVPB SCH ×2 (09:13→22:58)
--- NOTE | 2018-05-30 09:21 | PN ---
DATE: 05/28/2018 SUBJECTIVE: The patient is in seen in the ICU 128, bed 1. PHYSICAL EXAMINATION: GENERAL: On exam, the patient is intubated on a ventilator. VITAL SIGNS: Temperature of 99.9, heart rate of 101, blood pressure is 139/71 and respiratory rate, on the vent. HEENT: ET tube in place. NECK: Supple. LUNGS: Have decreased breath sounds. HEART: Normal S1 and S2. ABDOMEN: Soft. LABORATORY DATA: Reveals a white count of 11,300, hemoglobin of 9 and platelets of 305 with 86% granulocytosis. BUN of 20 and creatinine of 0.9. Urinalysis is noted. Influenza is negative. Microbiology reveals yeast species. Chest x-ray from this morning is pending. Review of orders reveals the patient to be on cefepime alone. Daptomycin was discontinued. The patient is on Zyvox. ASSESSMENT AND PLAN: This is a 57-year-old with systemic inflammatory response syndrome after a seizure episode and ventilatory dependent respiratory failure intubated on a ventilator with aspiration pneumonia, on top of possible stress and acute cerebral infarct, new onset of fever on Zyvox and cefepime. Dose of an and daptomycin was given. The patient with gastroparesis, urinary tract infection, diabetes, hypertension, transient ischemic attack, history of esophageal ulcers. Yesterday's chest x-ray is reviewed. No significant change in the right-sided peripheral infiltrate in the upper lobe. Overall prognosis is poor. Marc Sales MD
--- NOTE | 2018-05-30 12:17 | PN ---
DATE: 05/30/2018 CARDIOLOGY FOLLOWUP SUBJECTIVE: The patient remains ventilator dependent. PHYSICAL EXAMINATION: VITAL SIGNS: Blood pressure varies from 159-173 systolic, heart rate is in the 90s, normal sinus rhythm. NECK: Negative JVD. LUNGS: Decreased breath sounds. HEART: Reveal S1, S2. EXTREMITIES: Without change. LABORATORY DATA: Hemoglobin is 8.9, white count is 16,000, BUN and creatinine unremarkable. The glucose is 262. IMPRESSION: 1. Respiratory failure. 2. Diabetes mellitus. 3. Resolution of supraventricular tachycardia. 4. Altered mental status. 5. History of gastroparesis. Given these findings, the patient's hemodynamics remained stable. Her SVT and arrhythmias well-controlled on her present regimen. We will decrease her digoxin to 0.125 daily. Carter Farmer MD
[2018-05-30] MEDS ORDERED: Midazolam 2 MG/2 ML VIAL IVP PRN (12:25)
--- NOTE | 2018-05-30 12:40 | PN ---
DATE: 05/30/2018 SUBJECTIVE: The patient was seen and examined in intensive care unit on the ventilator. Her temperature is 99.3, pulse 99, respirations 20, blood pressure is 150/70. She is on mechanical ventilation with tidal volume of 400, FIO2 of 35%, respiratory rate of 12, and PEEP of 5. Her arterial blood gases are pH of 7.4, pCO2 of 34, pO2 of 82. PHYSICAL EXAMINATION: HEAD: Normocephalic and atraumatic. NECK: Supple with no jugular vein distention. CARDIOVASCULAR: S1, S2. No S3. Regular. PULMONARY: Few scattered rhonchi. No wheezing. GASTROINTESTINAL: Soft, nontender. No organomegaly. : Within normal limits EXTREMITIES: No pedal edema. SKIN: Clear with no skin rashes. No cyanosis. NEUROLOGIC: Unable to evaluate. The patient is poorly responsive. LABORATORY DATA: Shows WBC 16.7, hemoglobin of 8.9. ASSESSMENT: 1. Acute respiratory failure. 2. Anoxic encephalopathy. 3. Ventilator dependence. 4. Diabetes mellitus. PLAN: The patient remains ventilator dependent and mental status did not change. Tracheostomy is being planned. Her airway is protected, so there is no further aspirations noted. She is afebrile and her pulmonary status overall has improved with less alveolar arterial gradient and improved oxygenation. We will continue with current ventilatory support and start weaning after the tracheostomy. Jose G Ibrahim MD MTDSumi
--- NOTE | 2018-05-30 12:42 | PN ---
DATE: 05/30/2018 SUBJECTIVE: She is in the intensive care unit, on the ventilator. Her eyes are open, that is her alertness. Her hands have Mitts on them. She is on Bentyl premix, Catapres, Cozaar, Drysol, Effexor, insulin, Lanoxin, Levemir, Keppra IV, Lopressor, Maxipime IV, Neurontin, Norvasc, Protonix, Reglan, Xopenex, and Zyvox IV. PHYSICAL EXAMINATION: VITAL SIGNS: She has a 99.3 temperature, 99 pulse, 139/76 blood pressure, 91 oxygen saturation on 35%. HEENT: Atraumatic, normocephalic. Her eyes do open. HEART: Regular rate. LUNGS: Decreased breath sounds. ABDOMEN: Soft. Positive bowel sounds. EXTREMITIES: No edema. LABORATORY DATA: She has a 16.7 white count, it is going up, 8.9, hemoglobin, 20.4 hematocrit with 323 platelets. She has 135 sodium, potassium 3.7, BUN 25, creatinine 0.9, GFR is greater than 60, sugar is 262, calcium is 8.1, phosphorus 2.8, magnesium 1.8, total bili is 0.2, AST is 24, ALT is 24, alk phos 144, troponin I is 0.01. RECOMMENDATIONS: She is in deep trouble with a watershed stroke with PRES. She is being seen by multiple physicians. ENT is on the case for the next step to do a trach. I have to see if Dr. Sales wants to change her antibiotics around due to her elevated white count. We will continue with aggressive treatment and care. She may need to go to [facility] for prolonged treatment. We will check her labs tomorrow. She is still in a very critical condition. I believe a trach is next in her plan. We will continue with aggressive treatment and care and watch her white count. Hopefully, she will start waking up. Josafat Dent DO
--- NOTE | 2018-05-30 13:01 | CP.PCM.PN ---
Subjective - Date & Time of Evaluation Date of Evaluation: 05/30/18 Time of Evaluation: 12:20 - Subjective Subjective: Patient continues to be on the ventilator, no fevers overnight, still not responsive. Objective - Vital Signs/Intake and Output Vital Signs (last 24 hours): Temp Pulse Resp BP Pulse Ox 99.5 F 96 H 23 163/89 H 97 05/30/18 04:00 05/30/18 03:00 05/29/18 08:45 05/30/18 03:00 05/30/18 03:00 Intake and Output: 05/29/18 05/30/18 18:59 06:59 Intake Total 550 0 Output Total 1350 Balance -800 0 - Medications Medications: Current Medications Amlodipine Besylate (Norvasc) 10 mg PO DAILY [facility] Last Admin: 05/29/18 10:47 Dose: 10 mg Clonidine HCl (Catapres-Tts2 0.2 Mg/24 Hr) 1 patch TD Q7D@0700 PATTI Dicyclomine HCl (Bentyl) 10 mg PO TID [facility] Last Admin: 05/29/18 17:32 Dose: 10 mg Digoxin (Lanoxin) 0.25 mg PO 1400 PATTI Last Admin: 05/29/18 13:19 Dose: 0.25 mg Ergocalciferol (Drisdol 50,000 Intl Units Cap) 1 cap PO Q7D PATTI Last Admin: 05/29/18 10:48 Dose: Not Given Gabapentin (Neurontin) 300 mg PO BID [facility]; Protocol Last Admin: 05/29/18 17:31 Dose: 300 mg Levetiracetam 750 mg/ Sodium (Chloride) 107.5 mls @ 322.5 mls/hr IV Q12H [facility] Last Admin: 05/30/18 05:14 Dose: 322.5 mls/hr Cefepime HCl (Maxipime 2gm) 2 gm in 100 mls @ 100 mls/hr IVPB Q8 PATTI; Protocol Stop: 06/01/18 08:46 Last Admin: 05/30/18 05:14 Dose: 100 mls/hr Linezolid (Zyvox 600mg/300ml D5w) 600 mg in 300 mls @ 200 mls/hr IVPB Q12 PATTI; Protocol Stop: 06/03/18 10:01 Last Admin: 05/29/18 22:13 Dose: 200 mls/hr Nicardipine HCl (Cardene Iv Premix) 20 mg in 200 mls @ 50 mls/hr IV .Q4H PRN; Protocol PRN Reason: TITRATE PER MD ORDER Last Titration: 05/29/18 22:30 Dose: 5 mg/hr, 50 mls/hr Insulin Detemir (Levemir) 10 unit SC Q12 PATTI Insulin Human Lispro (Humalog Low) 0 units SC ACHS PATTI; Protocol Last Admin: 05/29/18 22:08 Dose: Not Given Levalbuterol HCl (Xopenex) 1.25 mg IH [id number] [facility] Last Admin: 05/30/18 01:26 Dose: 1.25 mg Losartan Potassium (Cozaar) 100 mg PO QPM [facility] Last Admin: 05/29/18 17:33 Dose: Not Given Metoclopramide HCl (Reglan) 5 mg PO HS [facility] Last Admin: 05/29/18 22:13 Dose: 5 mg Metoprolol Tartrate (Lopressor) 25 mg PO BID [facility] Last Admin: 05/29/18 17:33 Dose: Not Given Pantoprazole Sodium (Protonix Inj) 40 mg IVP DAILY [facility] Last Admin: 05/29/18 10:47 Dose: 40 mg Venlafaxine HCl (Effexor Xr) 75 mg PO DAILY [facility] Last Admin: 05/29/18 10:48 Dose: 75 mg - Labs Labs: 05/30/18 06:00 05/29/18 06:15 PT 11.9 SECONDS (9.4-12.5) 05/29/18 15:40 INR 1.04 05/29/18 15:40 APTT 28.3 Seconds (25.1-36.5) 05/29/18 15:40 - Constitutional Appears: Chronically Ill, Other (intubated) - ENT Exam Additional comments: ET tube in place - Neck Exam Additional comments: right IJ TLC in place - Respiratory Exam Respiratory Exam: Decreased Breath Sounds - Cardiovascular Exam Cardiovascular Exam: +S1, +S2 - GI/Abdominal Exam GI & Abdominal Exam: Soft. absent: Tenderness Assessment and Plan - Assessment and Plan (Free Text) Plan: Assessment systemic inflammatory response syndrome after seizure episode, with VDRF R/O sepsis due to aspiration pneumonia, on top of possible PRES or acute cerebral infarct history of HCAP history of sepsis due to right lower lobe HCAP, clinically improved and S/P treatment history of UTI with Klebsiella oxytoca gastroparesis HTN DM history of TIA history of esophageal ulcers S/P cholecystectomy S/P S/P hysterectomy S/P right foot partial amputation Plan continue Zyvox and Cefepime day 4 - cultures have been negative so far; WBC count is increasing and we can get stool for C. diff if patient is having diarrhea - if WBC count keeps going up will repeat septic work up discussed with Dr. Dent overall prognosis is poor
[2018-05-30] MEDS ORDERED: Rocuronium 10 mg/ml (5 ml) ONE ×2 (13:50→14:12)
[2018-05-30] MEDS ORDERED: LIDOCAIN/EPI 1-0.001% 10ML INJ SOL IJ ONE (14:00)
--- NOTE | 2018-05-30 14:53 | PCM.SURG1 ---
Surgeon's Initial Post Op Note - Surgeon's Notes Surgeon: Dr. Howard Voltage Regulator Assembler: Shravan PGY3, PGY2 Pre-Operative Diagnosis: Respiratory Failure, prolonged intubation Operative Findings: see op note Post-Operative Diagnosis: as above Operation Performed: 1. Open Tracheostomy. 2. Skin Flap. 3. Isthmusectomy Specimen/Specimens Removed: none Estimated Blood Loss: EBL {In ML}: 5 Drains Used: No Drains Post-Op Condition: Fair Date of Surgery/Procedure: 05/30/18 Time of Surgery/Procedure: 14:53 (Dictation #: [id number])
--- NOTE | 2018-05-30 15:13 | CP.PCM.PN ---
<Jose Wynn - Last Filed: 05/30/18 15:11> Subjective - Date & Time of Evaluation Date of Evaluation: 05/30/18 Time of Evaluation: 15:11 - Subjective Subjective: ENT- Progress note Patient seen and examined at bedside. No change, on vent, PRVC, minimal sedation. plan for OR today Objective - Vital Signs/Intake and Output Vital Signs (last 24 hours): Temp Pulse Resp BP Pulse Ox 99.3 F 93 H 23 173/68 H 91 L 05/30/18 07:00 05/30/18 09:11 05/29/18 08:45 05/30/18 09:12 05/30/18 07:00 Intake and Output: 05/30/18 05/30/18 06:59 18:59 Intake Total 650 Output Total 1902 Balance -1252 - Medications Medications: Current Medications Amlodipine Besylate (Norvasc) 10 mg PO DAILY [facility] Last Admin: 05/30/18 09:12 Dose: 10 mg Clonidine HCl (Catapres-Tts2 0.2 Mg/24 Hr) 1 patch TD Q7D@0700 [facility] Dicyclomine HCl (Bentyl) 10 mg PO TID [facility] Last Admin: 05/30/18 09:11 Dose: 10 mg Digoxin (Digoxin) 0.125 mg PO 1400 PATTI Ergocalciferol (Drisdol 50,000 Intl Units Cap) 1 cap PO Q7D [facility] Last Admin: 05/29/18 10:48 Dose: Not Given Gabapentin (Neurontin) 300 mg PO BID [facility]; Protocol Last Admin: 05/30/18 09:12 Dose: 300 mg Levetiracetam 750 mg/ Sodium (Chloride) 107.5 mls @ 322.5 mls/hr IV Q12H [facility] Last Admin: 05/30/18 05:14 Dose: 322.5 mls/hr Cefepime HCl (Maxipime 2gm) 2 gm in 100 mls @ 100 mls/hr IVPB Q8 [facility]; Protocol Stop: 06/01/18 08:46 Last Admin: 05/30/18 05:14 Dose: 100 mls/hr Linezolid (Zyvox 600mg/300ml D5w) 600 mg in 300 mls @ 200 mls/hr IVPB Q12 [facility]; Protocol Stop: 06/03/18 10:01 Last Admin: 12/31/18 09:13 Dose: 200 mls/hr Nicardipine HCl (Cardene Iv Premix) 20 mg in 200 mls @ 50 mls/hr IV .Q4H PRN; Protocol PRN Reason: TITRATE PER MD ORDER Last Titration: 05/29/18 22:30 Dose: 5 mg/hr, 50 mls/hr Insulin Detemir (Levemir) 10 unit SC Q12 [facility] Insulin Human Lispro (Humalog Low) 0 units SC ACHS [facility]; Protocol Last Admin: 05/29/18 22:08 Dose: Not Given Levalbuterol HCl (Xopenex) 1.25 mg IH [id number] [facility] Last Admin: 05/30/18 13:21 Dose: 1.25 mg Losartan Potassium (Cozaar) 100 mg PO QPM [facility] Last Admin: 05/29/18 17:33 Dose: Not Given Metoclopramide HCl (Reglan) 5 mg PO HS [facility] Last Admin: 05/29/18 22:13 Dose: 5 mg Metoprolol Tartrate (Lopressor) 50 mg PO BID [facility] Midazolam HCl (Versed Inj) 1 mg IVP Q4H PRN PRN Reason: Anxiety Pantoprazole Sodium (Protonix Inj) 40 mg IVP DAILY [facility] Last Admin: 05/30/18 09:13 Dose: 40 mg Venlafaxine HCl (Effexor Xr) 75 mg PO DAILY [facility] Last Admin: 05/29/18 10:48 Dose: 75 mg - Labs Labs: 05/30/18 06:00 05/30/18 06:45 PT 11.9 SECONDS (9.4-12.5) 05/29/18 15:40 INR 1.04 05/29/18 15:40 APTT 28.3 Seconds (25.1-36.5) 05/29/18 15:40 - Constitutional Appears: Non-toxic, No Acute Distress, Chronically Ill - Head Exam Head Exam: ATRAUMATIC - Respiratory Exam Respiratory Exam: absent: Accessory Muscle Use, Respiratory Distress Additional comments: Intubated - Cardiovascular Exam Cardiovascular Exam: REGULAR RHYTHM. absent: Bradycardia, Tachycardia - GI/Abdominal Exam GI & Abdominal Exam: Soft - Extremities Exam Extremities Exam: Normal Inspection - Skin Skin Exam: Intact, Warm Assessment and Plan - Assessment and Plan (Free Text) Assessment: 57F prolonged intubation Plan: Plan for OR today for Open Tracheostomy discussed w/ Dr. Howard [facility] PGY2 <Morales Howard F - Last Filed: 05/30/18 15:21> Objective - Vital Signs/Intake and Output Vital Signs (last 24 hours): Temp Pulse Resp BP Pulse Ox 99.3 F 93 H 23 173/68 H 91 L 05/30/18 07:00 05/30/18 09:11 05/29/18 08:45 05/30/18 09:12 05/30/18 07:00 Intake and Output: 05/30/18 05/30/18 06:59 18:59 Intake Total 650 Output Total 1902 Balance -1252 - Medications Medications: Current Medications Amlodipine Besylate (Norvasc) 10 mg PO DAILY [facility] Last Admin: 05/30/18 09:12 Dose: 10 mg Clonidine HCl (Catapres-Tts2 0.2 Mg/24 Hr) 1 patch TD Q7D@0700 PATTI Dicyclomine HCl (Bentyl) 10 mg PO TID [facility] Last Admin: 05/30/18 09:11 Dose: 10 mg Digoxin (Digoxin) 0.125 mg PO 1400 PATTI Ergocalciferol (Drisdol 50,000 Intl Units Cap) 1 cap PO Q7D [facility] Last Admin: 05/29/18 10:48 Dose: Not Given Gabapentin (Neurontin) 300 mg PO BID [facility]; Protocol Last Admin: 05/30/18 09:12 Dose: 300 mg Levetiracetam 750 mg/ Sodium (Chloride) 107.5 mls @ 322.5 mls/hr IV Q12H PATTI Last Admin: 05/30/18 05:14 Dose: 322.5 mls/hr Cefepime HCl (Maxipime 2gm) 2 gm in 100 mls @ 100 mls/hr IVPB Q8 PATTI; Protocol Stop: 06/01/18 08:46 Last Admin: 05/30/18 05:14 Dose: 100 mls/hr Linezolid (Zyvox 600mg/300ml D5w) 600 mg in 300 mls @ 200 mls/hr IVPB Q12 PATTI; Protocol Stop: 06/03/18 10:01 Last Admin: 05/30/18 09:13 Dose: 200 mls/hr Nicardipine HCl (Cardene Iv Premix) 20 mg in 200 mls @ 50 mls/hr IV .Q4H PRN; Protocol PRN Reason: TITRATE PER MD ORDER Last Titration: 05/29/18 22:30 Dose: 5 mg/hr, 50 mls/hr Insulin Detemir (Levemir) 10 unit SC Q12 [facility] Insulin Human Lispro (Humalog Low) 0 units SC ACHS [facility]; Protocol Last Admin: 05/29/18 22:08 Dose: Not Given Levalbuterol HCl (Xopenex) 1.25 mg IH [id number] [facility] Last Admin: 05/30/18 13:21 Dose: 1.25 mg Losartan Potassium (Cozaar) 100 mg PO QPM [facility] Last Admin: 05/29/18 17:33 Dose: Not Given Metoclopramide HCl (Reglan) 5 mg PO HS [facility] Last Admin: 05/29/18 22:13 Dose: 5 mg Metoprolol Tartrate (Lopressor) 50 mg PO BID [facility] Midazolam HCl (Versed Inj) 1 mg IVP Q4H PRN PRN Reason: Anxiety Pantoprazole Sodium (Protonix Inj) 40 mg IVP DAILY [facility] Last Admin: 05/30/18 09:13 Dose: 40 mg Venlafaxine HCl (Effexor Xr) 75 mg PO DAILY [facility] Last Admin: 05/29/18 10:48 Dose: 75 mg - Labs Labs: 05/30/18 06:00 05/30/18 06:45 PT 11.9 SECONDS (9.4-12.5) 05/29/18 15:40 INR 1.04 05/29/18 15:40 APTT 28.3 Seconds (25.1-36.5) 05/29/18 15:40 Assessment and Plan (1) Anxiety Status: Acute (2) Hyperglycemia Status: Acute (3) Hypertension Status: Acute (4) Seizure Status: Acute (5) Abdominal pain Status: Acute (6) Abnormal EKG Status: Acute (7) Abscess Status: Acute (8) Chest pain Status: Acute (9) Dehydration Status: Acute (10) Diabetic gastroparesis Status: Acute (11) LAUREN (generalized anxiety disorder) Status: Acute (12) Hyperkalemia Status: Acute (13) Hypokalemia Status: Acute (14) Hypoxia Status: Acute (15) Intractable abdominal pain Status: Acute (16) Intractable epigastric abdominal pain Status: Acute (17) Intractable vomiting Status: Acute (18) MDD (major depressive disorder) Status: Acute (19) Mood disorder with major depressive-like episode due to general medical co ndition Status: Acute (20) New onset seizure Status: Acute (21) Sepsis Status: Acute (22) Syncope Status: Acute (23) Syncope and collapse Status: Acute (24) TIA (transient ischemic attack) Status: Acute (25) Uncontrolled diabetes mellitus Status: Acute (26) Diabetes Status: Chronic (27) Diabetic neuropathy Status: Chronic (28) Gastroparesis Status: Chronic (29) IBS (irritable bowel syndrome) Status: Chronic (30) Orthostatic dizziness Status: Chronic (31) Ventilator dependence Status: Acute Attending/Attestation - Attestation I have personally seen and examined this patient.: Yes I have fully participated in the care of the patient.: Yes I have reviewed all pertinent clinical information, including history, physical exam and plan: Yes Notes (Text): 05/30/18 15:21 seen and examined agree with above
[2018-05-30] MEDS: Venlafaxine 75 mg ER Cap PO SCH (16:09)
[2018-05-30] MEDS: Digoxin 125 mcg (0.125 mg) Tab PO SCH (16:26)
[2018-05-30] MEDS: Insulin Lispro (humaLOG) LOW Coverage SC SCH ×3 (16:27→22:33)
[2018-05-30] MEDS: Insulin Detemir 100 units/ml Vial (Levemir) SC SCH ×2 (16:30→22:59)
--- NOTE | 2018-05-30 16:47 | RAD ---
Date of service: 05/30/2018 HISTORY: s/p Trach COMPARISON: 05/29/2018 FINDINGS: LUNGS: Patient is rotated to the right. There is a left-sided perihilar infiltrate and a minimal right-sided perihilar infiltrate unchanged. Tracheostomy in place PLEURA: No significant pleural effusion identified, no pneumothorax apparent. CARDIOVASCULAR: No aortic atherosclerotic calcification present. Normal cardiac size. No pulmonary vascular congestion. OSSEOUS STRUCTURES: No significant abnormalities. VISUALIZED UPPER ABDOMEN: Normal. OTHER FINDINGS: Right-sided central line and nasogastric tube in satisfactory position IMPRESSION: Patient is rotated to the right. There is a left-sided perihilar infiltrate and a minimal right-sided perihilar infiltrate unchanged. Tracheostomy in place
--- NOTE | 2018-05-30 18:54 | PN ---
DATE: 05/30/2018 ENDOCRINOLOGY FOLLOWUP NOTE LOCATION: In ICU 128, room 1. SUBJECTIVE: This is a 57-year-old female with recent uncontrolled type 2 insulin-requiring diabetes with extremes of glycemic fluctuations, currently endotracheally intubated from a recent bouts of generalized seizures and subsequent acute respiratory failure and is now being followed closely for hemodynamic monitoring in the ICU and also for metabolic management thereof. Her glycemic levels are fluctuating ranging from 122 to 264 and 271 mg/dL. Her chemistry showed a BUN of 25, sodium 135, potassium 3.7, chloride 107, CO2 of 25, glucose 262, and creatinine 0.9. So, at this time, we will continue the same modified basal insulin given as Levemir at 10 units subcutaneously every 12 hours at 10:00 a.m. and 10:00 p.m. daily as given. We will obtain serial chemistries and supplement accordingly as needed. We will follow. Tita Coe MD
[2018-05-31] MEDS: Levalbuterol 1.25 MG/3 ML Inhal Soln UD IH SCH ×4 (01:20→20:02)
[2018-05-31 05:35] LABS: ARTERIAL BLOOD GAS HCO3 24.3 mmol/L (21-28); ARTERIAL BLOOD GAS HEMOGLOBIN 8.9 g/dL (11.7-17.4); ARTERIAL BLOOD GAS O2 CAPACITY 12.6 mL/dl (16-24); ARTERIAL BLOOD GAS O2 CONTENT 12.3 ML/dl (15-23); ARTERIAL BLOOD GAS O2 SAT 97.8 % (95-98); ARTERIAL BLOOD GAS PCO2 35 mm/Hg (35-45); ARTERIAL BLOOD GAS PH 7.45 (7.35-7.45); ARTERIAL BLOOD GAS TCO2 25.4 mmol.L (22-28)
[2018-05-31 05:49] LABS: BASO # 0.02 K/mm3 (0.0-2.0); BASO % 0.2 % (0.0-3.0); EOS # 0.2 (0.0-0.7); EOS % 1.6 % (1.5-5.0); GRAN # 9.68 (1.4-6.5); GRAN % 83.5 % (50.0-68.0); HEMOGLOBIN 8.1 g/dL (12.0-16.0); LYMPH # 1.1 (1.2-3.4); LYMPH % 9.7 % (22.0-35.0); MEAN CORPUSCULAR HEMOGLOBIN 25.3 pg (25.0-35.0); MEAN CORPUSCULAR HGB CONC 31.6 g/dl (31.0-37.0); MEAN PLATELET VOLUME 9.5 fl (7.0-11.0); MONO # 0.6 (0.1-0.6); RBC 3.2 10^6/uL (3.5-6.1); RED CELL DISTRIBUTION WIDTH 14.4 % (11.5-14.5); WHITE BLOOD COUNT 11.6 10^3/uL (4.5-11.0)
[2018-05-31] MEDS: Cefepime IV 2 gm in NS 2 GM/100 ML BAG IVPB SCH ×3 (06:25→22:19)
[2018-05-31 06:44] LABS: ALB/GLOB RATIO 0.9 (1.1-1.8); ALBUMIN 2.4 g/dL (3.0-4.8); ALT/SGPT 21 U/L (7-56); AST/SGOT 19 U/L (14-36); BLOOD UREA NITROGEN 20 mg/dL (7-21); CALCIUM 7.8 mg/dL (8.4-10.5); GFR NON-AFRICAN AMERICAN > 60
[2018-05-31] MEDS: Insulin Lispro (humaLOG) LOW Coverage SC SCH ×3 (07:49→17:30)
[2018-05-31] MEDS ORDERED: Potassium Chloride 40 mEq/30 ml LIQ UD PO ONE (09:40)
--- NOTE | 2018-05-31 09:54 | CP.CCUPN ---
<CarterAnival delacruzil - Last Filed: 05/31/18 12:02> CCU Subjective - Physician Review Subjective (Free Text): Joao Carter Internal Medicine Resident- Progress Note on Behalf of Critical Care Team Subjective: Patient seen and examined at bedside. Tmax 100.6 F. Further subjective data cannot be ascertained at this time. 12 point ROS cannot be ascertained at this time due to altered mental status Physical Examination: - Constitutional Appears: No Acute Distress - Head Exam Head Exam: ATRAUMATIC, NORMAL INSPECTION, NORMOCEPHALIC - Eye Exam Eye Exam: sluggish pupillary response bilaterally - ENT Exam ENT Exam: moist mucus membrane - Neck Exam Neck exam: Tach site is clean, dry, and intact - Respiratory Exam Respiratory Exam: diminished breath sounds bilateral lower lobes - Cardiovascular Exam Cardiovascular Exam: tachycardic, +S1, +S2. absent: Gallop, JVD, Rubs - GI/Abdominal Exam GI & Abdominal Exam: Normal Bowel Sounds, Soft. absent: Tenderness - Neurological Exam Neurological exam: Altered mental status, No longer opens eyes to verbal stimuli. Grimaces to painful stimuli. Spontaneous movements of her extremities - Skin Skin Exam: Dry, Intact, Normal Color, War Assessment and Plan: Patient is a 57 year old female with PMHx of HTN, uncontrolled DM2 complicated by retinopathy/gastroparesis, MDD, LAUREN, and TIA/CVA who was admitted for evaluation and treatment of seizure like activity. Patient suspected of experiencing aspiration. She was intubated/sedated due to an inability to protect her airway. Neurology AMS 2/2 Status Epilepticus - 05/19/18 CT Head without Contrast- No acute findings - 05/20/2019 CT Head without Contrast- No evidence of acute intracranial hemorrhage mass effect or midline shift. No significant interval changes noted - 05/22/2018 Brain MRI without Contrast- There are large areas of restricted diffusion/prolonged T2 signal changes within the the watershed zones of the occipito parietal and parietal and posterior frontal regions predominately involving the cortex.. Rule out watershed zone acute infarcts possibly related to prolonged seizures or hypertensive episode - 05/11/18 VEEG- moderate background slowing, left temporal interictal epileptiform discharges, left temporal slowing - continue on keppra 750mg IV q12 - neurology consulted- appreciate recommendations- posterior reversible encephalopathy syndrome (PRES)- minimal improvement in mental status Cardiovascular: Hypertensive, Hx of HTN - continue clonidine 0.2mg/24 hours - continue amlodipine 10mg PO hakeem - continue losartan 100mg PO daily as per nephro due to ANTONIO - cardiology consulted (Dr. Farmer)- appreciate recommendation SVT - continue on lopressor 50mg PO BID with holding parameters - continue digoxin 0.125mg PO Daily Resp: Respiratory Failure s/p Seizure Aspiration - Open Tracheostomy Skin Flap Isthmusectomy POD #1 - continue ventilator tidal volume 400,RR 12, FiO2 35%, PEEP 5 - head of bed at 35 degrees - conservative fluid management - continue oral hygiene - GI protonix and DVT prophylaxis- scds Aspiration Pneumonia, HAP, Severe Sepsis - 05/27/2018- CXR improving right sided perihilar infiltrate - continue linezolid 600mg IV q12 and cefepime IV q8 - infectious disease consulted (Dr. Sales)- appreciate recommendations - discussed cefepimes role in potential drug induced fever and changing of abx- will monitor temp overnight and decide on discontinuing abx in AM GI Hx of Gastroparesis - NPO - continue reglan 5mg mg PO QS - continue bentyl 10mg PO TID - continue jevity goal 30 - GI consulted (Dr. Zambrano)- appreciate recommendations GI ppx: - protonix 40mg PO daily Endo Hx DM - increased levemir 10 units q12h SC HS, BGs 130s - continue lispro insulin sliding scale low - fingersticks ACHS - maintain euglycemia - endocrinology consulted Dr Coe- appreciate recommendations Renal ANTONIO - resolved - nephrology consulted- appreciate recommendations Hypokalemia - replete via KCl 20meq IV x 2 - monitor closely via CMP - mag within normal limits Heme Anemia - microcytic - hemoglobin 8.7 from 9.3, downtrending - FOBT ordered and pending - serum iron- low, tibc- low, ferritin- wnl , folate- wnl, b12- elevated, anemia of chronic disease vs iron deficiency anemia - recommend starting iron supplements DVT Ppx - SCD Patient case discussed with and plan approved by attending physician, Dr. Dow 05/31/18 12:18 CCU Objective - Vital Signs / Intake & Output Vital Signs (Last 4 hours): Vital Signs Temp Pulse BP Pulse Ox 05/31/18 07:16 81 145/70 05/31/18 06:00 153/67 H 05/31/18 05:59 99.7 F H 76 100 Intake and Output (Last 8hrs): Intake & Output 05/30/18 05/31/18 05/31/18 22:59 06:59 14:59 Intake Total 400 1600 Output Total 1500 Balance 400 100 Weight 157 lb 6.4 oz Intake: IV 350 600 Right Internal Jugular 350 abx 500 keppra 100 Oral 0 Tube Feeding 50 600 Other 400 Output: Urine 1500 Urethral (Wan) 1500 Other: # Voids Urethral (Wan) 500 # Bowel Movements 0 2 - Physical Exam Head: Positive for: Atraumatic, Normocephalic Pupils: Positive for: Sluggish, Other (Closes eyes upon shining light) Extroacular Muscles: Positive for: EOMI Conjunctiva: Positive for: Normal Mouth: Positive for: Moist Mucous Membranes Pharnyx: Positive for: Other (Intubated.) Nose (External): Positive for: Other (NGT in place) Neck: Positive for: Normal Range of Motion Respiratory/Chest: Positive for: Clear to Auscultation, Good Air Exchange. Negative for: Respiratory Distress, Accessory Muscle Use Cardiovascular: Positive for: Regular Rate and Rhythm, Normal S1, S2. Negative for: Murmurs Abdomen: Negative for: Tenderness, Distention, Peritoneal Signs Back: Positive for: Normal Inspection Upper Extremity: Positive for: Normal Inspection. Negative for: Cyanosis, Edema Lower Extremity: Positive for: Other (Right foot amputation noted). Negative for: Edema Neurological: Positive for: Motor Func Grossly Intact. Negative for: CN II-XII Intact, Speech Normal Skin: Positive for: Warm, Dry, Normal Color. Negative for: Rashes Psychiatric: Positive for: Alert. Negative for: Oriented x 3, Normal Insight, Normal Concentration - Medications Active Medications: Active Medications Generic Name Dose Route Start Last Admin Trade Name Freq PRN Reason Stop Dose Admin Acetaminophen 650 mg 05/31/18 00:11 05/31/18 00:27 Tylenol 325mg Tab PO 650 mg Q6H PRN Administration Fever >100.4 F Amlodipine Besylate 10 mg 05/24/18 11:13 05/30/18 09:12 Norvasc PO 10 mg DAILY PATTI Administration Clonidine HCl 1 patch 05/24/18 11:15 05/31/18 07:16 Catapres-Tts2 0.2 Mg/24 Hr TD 1 patch Q7D@0700 PATTI Administration Dicyclomine HCl 10 mg 05/19/18 18:00 05/30/18 17:29 Bentyl PO 10 mg TID PATTI Administration Digoxin 0.125 mg 05/30/18 10:03 05/30/18 16:26 Digoxin PO 0.125 mg 1400 PATTI Administration Ergocalciferol 1 cap 05/22/18 07:15 05/29/18 10:48 Drisdol 50,000 Intl Units Cap PO Not Given Q7D PATTI Gabapentin 300 mg 05/19/18 18:00 05/30/18 17:29 Neurontin PO 300 mg BID PATTI Administration Protocol Levetiracetam 750 mg/ Sodium 107.5 mls @ 322.5 mls/hr 05/22/18 18:00 05/31/18 06:25 Chloride IV 322.5 mls/hr Q12H PATTI Administration Cefepime HCl 2 gm in 100 mls @ 100 mls/hr 05/27/18 08:45 05/31/18 06:25 Maxipime 2gm IVPB 06/01/18 08:46 100 mls/hr Q8 PATTI Administration Protocol Linezolid 600 mg in 300 mls @ 200 mls/hr 05/27/18 10:00 05/30/18 22:58 Zyvox 600mg/300ml D5w IVPB 06/03/18 10:01 200 mls/hr Q12 PATTI Administration Protocol Nicardipine HCl 20 mg in 200 mls @ 50 mls/hr 05/27/18 09:35 05/29/18 22:30 Cardene Iv Premix IV 5 mg/hr .Q4H PRN 50 mls/hr TITRATE PER MD ORDER Titration Protocol 5 MG/HR Potassium Chloride 20 meq in 100 mls @ 50 mls/hr 05/31/18 09:45 Potassium Chloride 20 Meq/100 Ml IVPB 05/31/18 13:44 Q2H PATTI Insulin Detemir 10 unit 05/30/18 10:00 05/30/18 22:59 Levemir SC 10 units Q12 PATTI Administration Insulin Human Lispro 0 units 05/28/18 14:06 05/31/18 07:49 Humalog Low SC Not Given ACHS PATTI Protocol Levalbuterol HCl 1.25 mg 05/20/18 08:00 05/31/18 07:46 Xopenex IH 1.25 mg [id number] PATTI Administration Losartan Potassium 100 mg 05/24/18 18:00 05/30/18 17:29 Cozaar PO 100 mg QPM PATTI Administration Metoclopramide HCl 5 mg 05/19/18 22:00 05/30/18 23:01 Reglan PO 5 mg HS PATTI Administration Metoprolol Tartrate 50 mg 05/30/18 12:26 05/30/18 17:28 Lopressor PO 50 mg BID PATTI Administration Midazolam HCl 1 mg 05/30/18 12:25 Versed Inj IVP Q4H PRN Anxiety Pantoprazole Sodium 40 mg 05/21/18 10:00 05/30/18 09:13 Protonix Inj IVP 40 mg DAILY PATTI Administration Venlafaxine HCl 75 mg 05/20/18 10:00 05/30/18 16:09 Effexor Xr PO Not Given DAILY PATTI - Patient Studies Lab Studies: Microbiology Studies 05/27/18 10:15 Blood Culture - Preliminary Blood-Venous NO GROWTH AFTER 3 DAYS 05/27/18 09:55 Blood Culture - Preliminary Blood-Venous NO GROWTH AFTER 3 DAYS Lab Studies 05/31/18 05/31/18 05/31/18 Range/Units 05:26 05:00 05:00 WBC 11.6 H D (4.5-11.0) 10^3/uL RBC 3.20 L (3.5-6.1) 10^6/uL Hgb 8.1 L (12.0-16.0) g/dL Hct 25.6 L (36.0-48.0) % MCV 80.0 (80.0-105.0) fl MCH 25.3 (25.0-35.0) pg MCHC 31.6 (31.0-37.0) g/dl RDW 14.4 (11.5-14.5) % Plt Count 294 (120.0-450.0) 10^3/uL MPV 9.5 (7.0-11.0) fl Gran % 83.5 H (50.0-68.0) % Lymph % (Auto) 9.7 L (22.0-35.0) % [place] % (Auto) 5.0 (1.0-6.0) % Eos % (Auto) 1.6 (1.5-5.0) % Baso % (Auto) 0.2 (0.0-3.0) % Gran # 9.68 H (1.4-6.5) Lymph # (Auto) 1.1 L (1.2-3.4) [place] # (Auto) 0.6 (0.1-0.6) Eos # (Auto) 0.2 (0.0-0.7) Baso # (Auto) 0.02 (0.0-2.0) K/mm3 pCO2 35 (35-45) mm/Hg pO2 122.0 H (80-100) mm/Hg HCO3 24.3 (21-28) mmol/L ABG pH 7.45 (7.35-7.45) ABG Total CO2 25.4 (22-28) mmol.L ABG O2 Saturation 97.8 (95-98) % ABG O2 Content 12.3 L (15-23) ML/dl ABG Base Excess 0.5 (-2.0-3.0) mmol/L ABG Hemoglobin 8.9 L (11.7-17.4) g/dL ABG Carboxyhemoglobin 0.8 (0.5-1.5) % POC ABG HHb (Measured) 2.2 (0-5) % ABG Methemoglobin 0.4 (0.0-3.0) % ABG O2 Capacity 12.6 L (16-24) mL/dl Hgb O2 Saturation 96.6 (95.0-98.0) % FiO2 35.0 % Sodium 139 (132-148) mmol/L Potassium 3.2 L (3.6-5.0) mmol/L Chloride 109 H (98-107) mmol/L Carbon Dioxide 25 (21-33) mmol/L Anion Gap 8 L (10-20) BUN 20 (7-21) mg/dL Creatinine 0.8 (0.7-1.2) mg/dl Est GFR ( Amer) > 60 Est GFR (Non-Af Amer) > 60 POC Glucose (mg/dL) (65-110) mg/dL Random Glucose 127 H (70-110) mg/dL Calcium 7.8 L (8.4-10.5) mg/dL Total Bilirubin 0.2 (0.2-1.3) mg/dL AST 19 (14-36) U/L ALT 21 (7-56) U/L Alkaline Phosphatase 114 (38-126) U/L Total Protein 5.2 L (5.8-8.3) g/dL Albumin 2.4 L (3.0-4.8) g/dL Globulin 2.7 gm/dL Albumin/Globulin Ratio 0.9 L (1.1-1.8) 05/30/18 05/30/18 05/30/18 Range/Units 22:15 16:26 11:33 WBC (4.5-11.0) 10^3/uL RBC (3.5-6.1) 10^6/uL Hgb (12.0-16.0) g/dL Hct (36.0-48.0) % MCV (80.0-105.0) fl MCH (25.0-35.0) pg MCHC (31.0-37.0) g/dl RDW (11.5-14.5) % Plt Count (120.0-450.0) 10^3/uL MPV (7.0-11.0) fl Gran % (50.0-68.0) % Lymph % (Auto) (22.0-35.0) % [place] % (Auto) (1.0-6.0) % Eos % (Auto) (1.5-5.0) % Baso % (Auto) (0.0-3.0) % Gran # (1.4-6.5) Lymph # (Auto) (1.2-3.4) [place] # (Auto) (0.1-0.6) Eos # (Auto) (0.0-0.7) Baso # (Auto) (0.0-2.0) K/mm3 pCO2 (35-45) mm/Hg pO2 (80-100) mm/Hg HCO3 (21-28) mmol/L ABG pH (7.35-7.45) ABG Total CO2 (22-28) mmol.L ABG O2 Saturation (95-98) % ABG O2 Content (15-23) ML/dl ABG Base Excess (-2.0-3.0) mmol/L ABG Hemoglobin (11.7-17.4) g/dL ABG Carboxyhemoglobin (0.5-1.5) % POC ABG HHb (Measured) (0-5) % ABG Methemoglobin (0.0-3.0) % ABG O2 Capacity (16-24) mL/dl Hgb O2 Saturation (95.0-98.0) % FiO2 % Sodium (132-148) mmol/L Potassium (3.6-5.0) mmol/L Chloride (98-107) mmol/L Carbon Dioxide (21-33) mmol/L Anion Gap (10-20) BUN (7-21) mg/dL Creatinine (0.7-1.2) mg/dl Est GFR ( Amer) Est GFR (Non-Af Amer) POC Glucose (mg/dL) 226 H 308 H 264 H (65-110) mg/dL Random Glucose (70-110) mg/dL Calcium (8.4-10.5) mg/dL Total Bilirubin (0.2-1.3) mg/dL AST (14-36) U/L ALT (7-56) U/L Alkaline Phosphatase (38-126) U/L Total Protein (5.8-8.3) g/dL Albumin (3.0-4.8) g/dL Globulin gm/dL Albumin/Globulin Ratio (1.1-1.8) Laboratory Results - last 24 hr 05/30/18 05/30/18 05/30/18 11:33 16:26 22:15 WBC RBC Hgb Hct MCV MCH MCHC RDW Plt Count MPV Gran % Lymph % (Auto) [place] % (Auto) Eos % (Auto) Baso % (Auto) Gran # Lymph # (Auto) [place] # (Auto) Eos # (Auto) Baso # (Auto) pCO2 pO2 HCO3 ABG pH ABG Total CO2 ABG O2 Saturation ABG O2 Content ABG Base Excess ABG Hemoglobin ABG Carboxyhemoglobin POC ABG HHb (Measured) ABG Methemoglobin ABG O2 Capacity Hgb O2 Saturation FiO2 Sodium Potassium Chloride Carbon Dioxide Anion Gap BUN Creatinine Est GFR ( Amer) Est GFR (Non-Af Amer) POC Glucose (mg/dL) 264 H 308 H 226 H Random Glucose Calcium Total Bilirubin AST ALT Alkaline Phosphatase Total Protein Albumin Globulin Albumin/Globulin Ratio 05/31/18 05/31/18 05/31/18 05:00 05:00 05:26 WBC 11.6 H D RBC 3.20 L Hgb 8.1 L Hct 25.6 L MCV 80.0 MCH 25.3 MCHC 31.6 RDW 14.4 Plt Count 294 MPV 9.5 Gran % 83.5 H Lymph % (Auto) 9.7 L [place] % (Auto) 5.0 Eos % (Auto) 1.6 Baso % (Auto) 0.2 Gran # 9.68 H Lymph # (Auto) 1.1 L [place] # (Auto) 0.6 Eos # (Auto) 0.2 Baso # (Auto) 0.02 pCO2 35 pO2 122.0 H HCO3 24.3 ABG pH 7.45 ABG Total CO2 25.4 ABG O2 Saturation 97.8 ABG O2 Content 12.3 L ABG Base Excess 0.5 ABG Hemoglobin 8.9 L ABG Carboxyhemoglobin 0.8 POC ABG HHb (Measured) 2.2 ABG Methemoglobin 0.4 ABG O2 Capacity 12.6 L Hgb O2 Saturation 96.6 FiO2 35.0 Sodium 139 Potassium 3.2 L Chloride 109 H Carbon Dioxide 25 Anion Gap 8 L BUN 20 Creatinine 0.8 Est GFR ( Amer) > 60 Est GFR (Non-Af Amer) > 60 POC Glucose (mg/dL) Random Glucose 127 H Calcium 7.8 L Total Bilirubin 0.2 AST 19 ALT 21 Alkaline Phosphatase 114 Total Protein 5.2 L Albumin 2.4 L Globulin 2.7 Albumin/Globulin Ratio 0.9 L Radiology Impressions: Radiology Impressions Chest X-Ray 05/30/18 14:49 IMPRESSION: Patient is rotated to the right. There is a left-sided perihilar infiltrate and a minimal right-sided perihilar infiltrate unchanged. Tracheostomy in place Fingerstick Blood Sugar Results: 127 Critical Care Progress Note - Nutrition Nutrition: Nutrition Category Date Time Status NPO Diet [DIET] Diets 05/19/18 Dinner Ordered <Michael Dow - Last Filed: 05/31/18 17:15> CCU Objective - Vital Signs / Intake & Output Intake and Output (Last 8hrs): Intake & Output 05/31/18 05/31/18 05/31/18 06:59 14:59 22:59 Intake Total 1600 Output Total 1500 Balance 100 Weight 71.395 kg Intake: IV 600 abx 500 keppra 100 Tube Feeding 600 Other 400 Output: Urine 1500 Urethral (Wan) 1500 Other: # Bowel Movements 2 - Medications Active Medications: Active Medications Generic Name Dose Route Start Last Admin Trade Name Freq PRN Reason Stop Dose Admin Acetaminophen 650 mg 05/31/18 00:11 05/31/18 10:16 Tylenol 325mg Tab PO 650 mg Q6H PRN Administration Fever >100.4 F Amlodipine Besylate 10 mg 05/24/18 11:13 05/31/18 10:16 Norvasc PO 10 mg DAILY PATTI Administration Clonidine HCl 1 patch 05/24/18 11:15 05/31/18 07:16 Catapres-Tts2 0.2 Mg/24 Hr TD 1 patch Q7D@0700 PATTI Administration Dicyclomine HCl 10 mg 05/19/18 18:00 05/31/18 14:19 Bentyl PO 10 mg TID PATTI Administration Digoxin 0.125 mg 05/30/18 10:03 05/31/18 14:19 Digoxin PO 0.125 mg 1400 PATTI Administration Ergocalciferol 1 cap 05/22/18 07:15 05/29/18 10:48 Drisdol 50,000 Intl Units Cap PO Not Given Q7D PATTI Gabapentin 300 mg 05/19/18 18:00 05/31/18 10:16 Neurontin PO 300 mg BID PATTI Administration Protocol Levetiracetam 750 mg/ Sodium 107.5 mls @ 322.5 mls/hr 05/22/18 18:00 05/31/18 06:25 Chloride IV 322.5 mls/hr Q12H PATTI Administration Cefepime HCl 2 gm in 100 mls @ 100 mls/hr 05/27/18 08:45 05/31/18 14:18 Maxipime 2gm IVPB 06/01/18 08:46 100 mls/hr Q8 PATTI Administration Protocol Linezolid 600 mg in 300 mls @ 200 mls/hr 05/27/18 10:00 05/31/18 10:17 Zyvox 600mg/300ml D5w IVPB 06/03/18 10:01 200 mls/hr Q12 PATTI Administration Protocol Nicardipine HCl 20 mg in 200 mls @ 50 mls/hr 05/27/18 09:35 05/29/18 22:30 Cardene Iv Premix IV 5 mg/hr .Q4H PRN 50 mls/hr TITRATE PER MD ORDER Titration Protocol 5 MG/HR Potassium Chloride 10 meq in 100 mls @ 50 mls/hr 05/31/18 14:00 05/31/18 14:29 Potassium Chloride 10 Meq/100 Ml IVPB 05/31/18 17:59 50 mls/hr Q2H PATTI Administration Insulin Detemir 10 unit 05/30/18 10:00 05/31/18 10:17 Levemir SC 10 units Q12 PATTI Administration Insulin Human Lispro 0 units 05/28/18 14:06 05/31/18 11:30 Humalog Low SC Not Given ACHS PATTI Protocol Levalbuterol HCl 1.25 mg 05/20/18 08:00 05/31/18 13:21 Xopenex IH 1.25 mg [id number] PATTI Administration Losartan Potassium 100 mg 05/24/18 18:00 05/30/18 17:29 Cozaar PO 100 mg QPM PATTI Administration Metoclopramide HCl 5 mg 05/19/18 22:00 05/30/18 23:01 Reglan PO 5 mg HS PATTI Administration Metoprolol Tartrate 50 mg 05/30/18 12:26 05/31/18 10:16 Lopressor PO 50 mg BID PATTI Administration Midazolam HCl 1 mg 05/30/18 12:25 Versed Inj IVP Q4H PRN Anxiety Pantoprazole Sodium 40 mg 05/21/18 10:00 05/31/18 10:17 Protonix Inj IVP 40 mg DAILY PATTI Administration Venlafaxine HCl 75 mg 05/20/18 10:00 05/31/18 14:16 Effexor Xr PO Not Given DAILY PATTI - Patient Studies Lab Studies: Microbiology Studies 05/27/18 10:15 Blood Culture - Preliminary Blood-Venous NO GROWTH AFTER 4 DAYS 05/27/18 09:55 Blood Culture - Preliminary Blood-Venous NO GROWTH AFTER 4 DAYS Lab Studies 05/31/18 05/31/18 05/31/18 Range/Units 05:26 05:00 05:00 WBC (4.5-11.0) 10^3/uL RBC (3.5-6.1) 10^6/uL Hgb (12.0-16.0) g/dL Hct (36.0-48.0) % MCV (80.0-105.0) fl MCH (25.0-35.0) pg MCHC (31.0-37.0) g/dl RDW (11.5-14.5) % Plt Count (120.0-450.0) 10^3/uL MPV (7.0-11.0) fl Gran % (50.0-68.0) % Lymph % (Auto) (22.0-35.0) % [place] % (Auto) (1.0-6.0) % Eos % (Auto) (1.5-5.0) % Baso % (Auto) (0.0-3.0) % Gran # (1.4-6.5) Lymph # (Auto) (1.2-3.4) [place] # (Auto) (0.1-0.6) Eos # (Auto) (0.0-0.7) Baso # (Auto) (0.0-2.0) K/mm3 pCO2 35 (35-45) mm/Hg pO2 122.0 H (80-100) mm/Hg HCO3 24.3 (21-28) mmol/L ABG pH 7.45 (7.35-7.45) ABG Total CO2 25.4 (22-28) mmol.L ABG O2 Saturation 97.8 (95-98) % ABG O2 Content 12.3 L (15-23) ML/dl ABG Base Excess 0.5 (-2.0-3.0) mmol/L ABG Hemoglobin 8.9 L (11.7-17.4) g/dL ABG Carboxyhemoglobin 0.8 (0.5-1.5) % POC ABG HHb (Measured) 2.2 (0-5) % ABG Methemoglobin 0.4 (0.0-3.0) % ABG O2 Capacity 12.6 L (16-24) mL/dl Hgb O2 Saturation 96.6 (95.0-98.0) % FiO2 35.0 % Sodium 139 (132-148) mmol/L Potassium 3.2 L (3.6-5.0) mmol/L Chloride 109 H (98-107) mmol/L Carbon Dioxide 25 (21-33) mmol/L Anion Gap 8 L (10-20) BUN 20 (7-21) mg/dL Creatinine 0.8 (0.7-1.2) mg/dl Est GFR ( Amer) > 60 Est GFR (Non-Af Amer) > 60 POC Glucose (mg/dL) (65-110) mg/dL Random Glucose 127 H (70-110) mg/dL Calcium 7.8 L (8.4-10.5) mg/dL Magnesium 1.9 (1.7-2.2) mg/dL Total Bilirubin 0.2 (0.2-1.3) mg/dL AST 19 (14-36) U/L ALT 21 (7-56) U/L Alkaline Phosphatase 114 (38-126) U/L Total Protein 5.2 L (5.8-8.3) g/dL Albumin 2.4 L (3.0-4.8) g/dL Globulin 2.7 gm/dL Albumin/Globulin Ratio 0.9 L (1.1-1.8) 05/31/18 05/30/18 Range/Units 05:00 22:15 WBC 11.6 H D (4.5-11.0) 10^3/uL RBC 3.20 L (3.5-6.1) 10^6/uL Hgb 8.1 L (12.0-16.0) g/dL Hct 25.6 L (36.0-48.0) % MCV 80.0 (80.0-105.0) fl MCH 25.3 (25.0-35.0) pg MCHC 31.6 (31.0-37.0) g/dl RDW 14.4 (11.5-14.5) % Plt Count 294 (120.0-450.0) 10^3/uL MPV 9.5 (7.0-11.0) fl Gran % 83.5 H (50.0-68.0) % Lymph % (Auto) 9.7 L (22.0-35.0) % [place] % (Auto) 5.0 (1.0-6.0) % Eos % (Auto) 1.6 (1.5-5.0) % Baso % (Auto) 0.2 (0.0-3.0) % Gran # 9.68 H (1.4-6.5) Lymph # (Auto) 1.1 L (1.2-3.4) [place] # (Auto) 0.6 (0.1-0.6) Eos # (Auto) 0.2 (0.0-0.7) Baso # (Auto) 0.02 (0.0-2.0) K/mm3 pCO2 (35-45) mm/Hg pO2 (80-100) mm/Hg HCO3 (21-28) mmol/L ABG pH (7.35-7.45) ABG Total CO2 (22-28) mmol.L ABG O2 Saturation (95-98) % ABG O2 Content (15-23) ML/dl ABG Base Excess (-2.0-3.0) mmol/L ABG Hemoglobin (11.7-17.4) g/dL ABG Carboxyhemoglobin (0.5-1.5) % POC ABG HHb (Measured) (0-5) % ABG Methemoglobin (0.0-3.0) % ABG O2 Capacity (16-24) mL/dl Hgb O2 Saturation (95.0-98.0) % FiO2 % Sodium (132-148) mmol/L Potassium (3.6-5.0) mmol/L Chloride (98-107) mmol/L Carbon Dioxide (21-33) mmol/L Anion Gap (10-20) BUN (7-21) mg/dL Creatinine (0.7-1.2) mg/dl Est GFR ( Amer) Est GFR (Non-Af Amer) POC Glucose (mg/dL) 226 H (65-110) mg/dL Random Glucose (70-110) mg/dL Calcium (8.4-10.5) mg/dL Magnesium (1.7-2.2) mg/dL Total Bilirubin (0.2-1.3) mg/dL AST (14-36) U/L ALT (7-56) U/L Alkaline Phosphatase (38-126) U/L Total Protein (5.8-8.3) g/dL Albumin (3.0-4.8) g/dL Globulin gm/dL Albumin/Globulin Ratio (1.1-1.8) Laboratory Results - last 24 hr 05/30/18 05/31/18 05/31/18 22:15 05:00 05:00 WBC 11.6 H D RBC 3.20 L Hgb 8.1 L Hct 25.6 L MCV 80.0 MCH 25.3 MCHC 31.6 RDW 14.4 Plt Count 294 MPV 9.5 Gran % 83.5 H Lymph % (Auto) 9.7 L [place] % (Auto) 5.0 Eos % (Auto) 1.6 Baso % (Auto) 0.2 Gran # 9.68 H Lymph # (Auto) 1.1 L [place] # (Auto) 0.6 Eos # (Auto) 0.2 Baso # (Auto) 0.02 pCO2 pO2 HCO3 ABG pH ABG Total CO2 ABG O2 Saturation ABG O2 Content ABG Base Excess ABG Hemoglobin ABG Carboxyhemoglobin POC ABG HHb (Measured) ABG Methemoglobin ABG O2 Capacity Hgb O2 Saturation FiO2 Sodium 139 Potassium 3.2 L Chloride 109 H Carbon Dioxide 25 Anion Gap 8 L BUN 20 Creatinine 0.8 Est GFR ( Amer) > 60 Est GFR (Non-Af Amer) > 60 POC Glucose (mg/dL) 226 H Random Glucose 127 H Calcium 7.8 L Magnesium Total Bilirubin 0.2 AST 19 ALT 21 Alkaline Phosphatase 114 Total Protein 5.2 L Albumin 2.4 L Globulin 2.7 Albumin/Globulin Ratio 0.9 L 05/31/18 05/31/18 05:00 05:26 WBC RBC Hgb Hct MCV MCH MCHC RDW Plt Count MPV Gran % Lymph % (Auto) [place] % (Auto) Eos % (Auto) Baso % (Auto) Gran # Lymph # (Auto) [place] # (Auto) Eos # (Auto) Baso # (Auto) pCO2 35 pO2 122.0 H HCO3 24.3 ABG pH 7.45 ABG Total CO2 25.4 ABG O2 Saturation 97.8 ABG O2 Content 12.3 L ABG Base Excess 0.5 ABG Hemoglobin 8.9 L ABG Carboxyhemoglobin 0.8 POC ABG HHb (Measured) 2.2 ABG Methemoglobin 0.4 ABG O2 Capacity 12.6 L Hgb O2 Saturation 96.6 FiO2 35.0 Sodium Potassium Chloride Carbon Dioxide Anion Gap BUN Creatinine Est GFR ( Amer) Est GFR (Non-Af Amer) POC Glucose (mg/dL) Random Glucose Calcium Magnesium 1.9 Total Bilirubin AST ALT Alkaline Phosphatase Total Protein Albumin Globulin Albumin/Globulin Ratio Radiology Impressions: Radiology Impressions Chest X-Ray 05/31/18 06:00 IMPRESSION: Stable tubes and lines. Stable pulmonary vascular congestion with similar perihilar infiltrates. Critical Care Progress Note - Nutrition Nutrition: Nutrition Category Date Time Status NPO Diet [DIET] Diets 05/19/18 Dinner Ordered Addendum Addendum: 05/31/18 17:14 ICU Attending Addendum Patient seen and examined. Case reviewed on round with housestaff. Agree with resident note above with the following additions/exceptions 57f with a hx of HTN, uncontrolled DM2 complicated by retinopathy/gastroparesis, MDD, LAUREN, and TIA/CVA who was admitted for evaluation and treatment of seizure like activity with concern for PRES as well. Neuro MRI revelas large areas of restricted diffusion/prolonged T2 signal changes within the the watershed zones of the occipito parietal and parietal and posterior frontal regions predominately involving the cortex. Suggests PRES or status epil dx To tx PRES, need to cont to control BP. OFF nicard drip on PO meds nows for hytn bp stable trach performed, in place site healing well empiric abx tx asp pna needs better gluc control, will f/u endo recs await transfer to [facility] Rest of care above Michael Dow MD Pulmonary Critical Care Attending
[2018-05-31] MEDS: Linezolid 600 mg in D5W 300 ml 600 MG/300 ML BAG IVPB SCH ×2 (10:17→22:19)
[2018-05-31] MEDS: Insulin Detemir 100 units/ml Vial (Levemir) SC SCH (10:17)
--- NOTE | 2018-05-31 10:26 | RAD ---
Date of service: 05/31/2018 HISTORY: Trach COMPARISON: Chest radiograph date 05/30/2018. FINDINGS: LUNGS: Pulmonary vascular congestion with similar perihilar infiltrates. PLEURA: No significant pleural effusion identified, no pneumothorax apparent. CARDIOVASCULAR: Aortic atherosclerotic calcifications. Cardiomediastinal silhouette stably enlarged. OSSEOUS STRUCTURES: Unchanged. VISUALIZED UPPER ABDOMEN: Right upper quadrant surgical clips. OTHER FINDINGS: Tracheostomy and enteric tubes, unchanged. Right internal jugular access central venous catheter, unchanged.. IMPRESSION: Stable tubes and lines. Stable pulmonary vascular congestion with similar perihilar infiltrates.
--- NOTE | 2018-05-31 13:12 | PN ---
DATE: 05/31/2018 SUBJECTIVE: In ICU 128, room 1. This is a 57-year-old female with recent uncontrolled type 2 insulin-requiring diabetes presenting here with a grand mal seizure event and subsequent acute respiratory failure and endotracheal intubation, currently underwent an open tracheostomy procedure and is now improving and is now being followed closely for hemodynamic monitoring in the ICU as noted. Her glycemic levels are fluctuating, but improved and the latest glucose levels today have ranged from 127 mg/dL to 226 mg/dL. LABORATORY DATA: Her chemistry showed a BUN of 20, sodium 139, potassium 3.2, chloride 109, CO2 25, glucose 127, and creatinine 0.8. ASSESSMENT AND PLAN: So, at this time, we will continue the same low-dose basal insulin given as Levemir at 10 units every 12 hours at 10:00 a.m. and 10:00 p.m. daily as given. We will also continue the low-dose correction scale using Humalog insulin as ordered. We will obtain serial chemistries and supplement accordingly needed. We will also continue the tube feedings and consult with the lance crewmember/mlrs sergeant to optimize her caloric and protein requirements, especially that she is in a hypermetabolic state at this time. We will follow. Tita Coe MD
[2018-05-31] MEDS: Venlafaxine 75 mg ER Cap PO SCH (14:16)
[2018-05-31] MEDS: Digoxin 125 mcg (0.125 mg) Tab PO SCH (14:19)
--- NOTE | 2018-05-31 14:37 | PN ---
DATE: 05/31/2018 SUBJECTIVE: The patient is in bed. The patient trached in the ICU 128, bed 1 on a vent. PHYSICAL EXAMINATION: VITAL SIGNS: Temperature is 99, T-max of 100.4, blood pressure is 153/67, respiratory rate on the vent, heart rate of 76. HEENT: Unremarkable. The trach site is clean. NECK: Supple. LUNGS: Have decreased breath sounds. HEART: Normal S1, S2. ABDOMEN: Soft, nontender. LABORATORY EXAMINATION: Reveals a white count 11,600, hemoglobin of 8, BUN of 20, creatinine of 0.8. Urinalysis is noted. Serology is negative. Dr. Howard's note is reviewed.. ASSESSMENT/PLAN: A 57-year-old female seen earlier this morning who was well with systemic inflammatory response syndrome after an episode of seizures since trached ,vent dependent and respiratory failure on a ventilator and possible of posterior reversible encephalopathy syndrome versus acute cerebral infarct, history of healthcare-associated pneumonia with a history of diabetes and transient ischemic attack, hypertension, on Zyvox, cefepime day #5. On Zyvox and cefepime. We will continue present course. Overall prognosis is poor. The patient's white count appears to be improving. The last procalcitonin is normal and cultures have been negative at this time and sputum, blood and urine. Marc Sales MD
--- NOTE | 2018-05-31 17:57 | PN ---
DATE: 05/31/2018 PULMONARY PROGRESS NOTE SUBJECTIVE: The patient remains intubated on mechanical ventilation. There is a low-grade fever which persists. The patient's condition appears to be essentially unchanged. She remains on low FiO2 with PEEP. She is adequately ventilated. PHYSICAL EXAMINATION GENERAL: She appears slightly more awake than in the past. HEENT: Head is normocephalic and atraumatic. NECK: Supple. No jugular venous distention. CARDIOVASCULAR: Regular rhythm, S1 and S2. CHEST: Scattered rhonchi throughout both lung baurto. No wheezing appreciated. No rales noted. ABDOMEN: Soft. Bowels sounds normoactive. Without mass, guarding, rebound or organomegaly. EXTREMITIES: Reveal no clubbing, cyanosis or edema. NEUROLOGIC: Shows that the patient is poorly responsive, with minimal response. IMAGING STUDIES: Chest x-ray shows no acute pulmonary infiltrate. ASSESSMENT: 1. Respiratory failure. 2. Anoxic encephalopathy. 3. Ventilator dependent. 4. Diabetes mellitus. PLAN: Continue ventilator support. We will discuss with team as long-term prognosis remains guarded. We will discuss further intervention and tracheostomy with you. Close followup is essential. Unfortunately, the prognosis remains guarded. Armando Freeman MD
--- NOTE | 2018-05-31 19:23 | PN ---
DATE: 05/31/2018 SUBJECTIVE: I saw her in bed. She is not alert at this time. She has a tracheostomy in place. Multiple IVs. She has multiple issues including hypertension, diabetes, gastroparesis. She has a watershed brain infarct pneumonia. Now she is trached. Her eyes were moving at the day and so is the arm, but I think it is from the sedation from the surgical trach that was done. PHYSICAL EXAMINATION: VITAL SIGNS: Temp 99.7, pulse 76, blood deipxrol839/75, O2 sat 100%. HEENT: Atraumatic, normocephalic. HEART: Regular rate. LUNGS: Decreased breath sounds. ABDOMEN: Soft. EXTREMITIES: No edema. MEDICATIONS: She is currently on Bentyl, Cardene IV, Catapres patch, Cozaar, digoxin, Drisdol, Effexor, insulin, Levemir, Keppra, Lopressor, Maxipime IV, Neurontin, Norvasc, Protonix, Reglan, Tylenol, Versed, Xopenex, and Zyvox IV. LABORATORY DATA: She has 129 sodium, potassium of 3.2, I replaced the potassium, BUN 25, creatinine 0.8, GFR greater than 60, sugar is 127, calcium is 7.8, magnesium is 1.9, total bili is 0.2, AST is 19, ALT is 21, alk phos 114, total protein is 5.2. White count down to 11.6 is great, hemoglobin is 8.1, if it drops below 8 I will transfuse her, hematocrit 25.6, platelets 294. RECOMMENDATIONS: She is in trouble. She has a trach now, multiple IV antibiotics, multiple doctors were seeing her. We will continue progressive treatment care in the intensive care unit. Josafat Dent DO [email or web address]
[2018-06-01] MEDS: Levalbuterol 1.25 MG/3 ML Inhal Soln UD IH SCH ×4 (02:48→19:58)
[2018-06-01] MEDS: Insulin Detemir 100 units/ml Vial (Levemir) SC SCH ×3 (04:14→21:51)
[2018-06-01] MEDS: Insulin Lispro (humaLOG) LOW Coverage SC SCH ×5 (04:14→21:32)
[2018-06-01 06:07] LABS: BASO # 0.02 K/mm3 (0.0-2.0); BASO % 0.1 % (0.0-3.0); EOS # 0.3 (0.0-0.7); EOS % 2.1 % (1.5-5.0); GRAN % 82.2 % (50.0-68.0); HEMOGLOBIN 8.5 g/dL (12.0-16.0); LYMPH # 1.1 (1.2-3.4); LYMPH % 8.4 % (22.0-35.0); MEAN CELL VOLUME 80.9 fl (80.0-105.0); MEAN CORPUSCULAR HEMOGLOBIN 24.9 pg (25.0-35.0); MEAN CORPUSCULAR HGB CONC 30.8 g/dl (31.0-37.0); MEAN PLATELET VOLUME 9.6 fl (7.0-11.0); MONO % 7.2 % (1.0-6.0); RBC 3.41 10^6/uL (3.5-6.1); WHITE BLOOD COUNT 13.4 10^3/uL (4.5-11.0)
[2018-06-01 06:09] LABS: ALB/GLOB RATIO 0.8 (1.1-1.8); ALBUMIN 2.6 g/dL (3.0-4.8); ALT/SGPT 22 U/L (7-56); AST/SGOT 21 U/L (14-36); BLOOD UREA NITROGEN 18 mg/dL (7-21); CALCIUM 7.9 mg/dL (8.4-10.5); GFR NON-AFRICAN AMERICAN > 60
[2018-06-01] MEDS: Cefepime IV 2 gm in NS 2 GM/100 ML BAG IVPB SCH (06:47)
--- NOTE | 2018-06-01 08:24 | OP ---
PROCEDURE DATE: 05/30/2018 SURGEON: Morales Howard DO ASSISTANTS: Atilio Cheney DO; Jose Wynn DO PREOPERATIVE DIAGNOSIS: Respiratory failure, prolonged intubation. POSTOPERATIVE DIAGNOSIS: Respiratory failure, prolonged intubation. OPERATION PERFORMED: 1. Open tracheostomy. 2. Skin (Abram flap). 3. Isthmusectomy. ESTIMATED BLOOD LOSS: Less than 5 mL. INDICATIONS: This is a 57-year-old female who required tracheostomy for prolonged airway intubation. Consent was obtained by family members. Risks and benefits were explained and the decision was made to take the patient to the operating room for an open tracheostomy. DESCRIPTION OF PROCEDURE: The patient was positioned in the supine position and the neck hyperextended with neck roll. Arms were tucked. The neck and the anterior chest were prepped and draped in the usual sterile fashion. A timeout was completed verifying correct patient, procedure site, positioning, and all equipment required for the procedure. At this time, local anesthesia 1% with epinephrine was injected, total amount of 5 mL. The patient was prepped and draped in the usual sterile fashion. The thyroid and cricoid cartilage were palpated and the skin and subcutaneous tissue were marked. A vertical midline incision was made from the middle of the thyroid cartilage just superior to the sternal notch. Army-Zuehl was used to bluntly dissect down to the cricoid thyroid and pretracheal membrane. Combination of electrocautery and Metzenbaum was used to continue layer by layer to reach the pretracheal membrane. The strap muscles were retracted laterally and the thyroid isthmus was identified. The thyroid isthmus was divided between two hemostats using electrocautery in between. The isthmus was ligated and oversewn with 3-0 Vicryl. The endotracheal tube was then withdrawn to the level of the vocal cords. The second tracheal ring was identified. Tracheotomy hook was placed between the first and the second tracheal rings, and the tracheas were retracted superiorly. At this time, the endotracheal tube was advanced for the balloon pass the second tracheal ring. A transverse incision using #11 blade was used followed by a Metzenbaum on the lower aspect to create a Abram flap. A 3-0 Vicryl was used for the completion of the flap. The tracheostomy tube was then inserted and advanced as the endotracheal tube was withdrawn completely. The position was confirmed by end-tidal CO2. Hemostasis was appropriately achieved with electrocautery. A 3-0 chromic was used to approximate the superior portion of the incision. The tracheostomy tube was then sutured in place using 2-0 nylon. Steri-Strips were then placed at the end of the Vicryl sutures. The patient tolerated the procedure well and was taken back to the ICU in stable condition. All counts were correct at the end of the procedure. Dr. Howard was present for the entire case. Jose Wynn DO Morales Howard DO
--- NOTE | 2018-06-01 08:32 | PN ---
DATE: 06/01/2018 PULMONARY NOTE SUBJECTIVE: The patient remains on the ventilator. She does open her eyes at times. She does not respond to questions. PHYSICAL EXAMINATION: VITALS: Temperature is 99.3, pulse 78, respiratory rate 20/20, blood pressure 158/77. HEENT: Normocephalic. Positive tracheostomy. No JVD. CARDIOVASCULAR: Positive S1, S2. No S3 gallop. LUNGS: Decreased breath sounds at the bases. No rhonchi. No wheezing. 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 There is no edema in her legs. GI: Abdomen is soft, and nondistended. Bowel sounds are positive. SKIN: No acute rash. NEUROLOGIC: Exam limited at the present time. PERTINENT LABORATORY DATA: Chest x-ray was repeated yesterday and reviewed. The chest x-ray is not changed from the previous film. IMPRESSION: 1. Seizure disorder. 2. Respiratory insufficiency. 3. Bilateral pneumonia. 4. Encephalopathy, rule out cerebrovascular accident. 5. Chronic obstructive pulmonary disease. 6. Diabetes mellitus. PLAN: The patient remains on the ventilator and in the ICU. I did discuss the case with the ICU nurse at length. Unfortunately, the patient has not regained a meaningful mental status. As above, the patient does open her eyes at times. She does not respond to any questions or commands. As above, I did review the last chest x-ray done. It is very similar to the previous film. The patient remains on antibiotic therapy - as per Infectious Disease. Input by Dr. Bryan is noted. Inputs by Endocrine, ENT, and Neurology are also noted. On physical exam, there is no significant bronchospasm appreciated. I will continue the Xopenex nebulizer treatments. The patient remains critically ill with very poor overall prognosis. I will discuss the above with the entire ICU team in the next few moments. I will discuss the above with Dr. Dent later this morning. Cesar Enriquez MD ANIV[facility]
--- NOTE | 2018-06-01 08:53 | PN ---
DATE: 06/01/2018 SUBJECTIVE: The patient is in bed, ICU 128, bed 1. She is trached and on a vent. No fevers. She did have a fever yesterday. OBJECTIVE: VITAL SIGNS: Temperature is 99, T-max is 100.8 yesterday, blood pressure is 167/81, respiratory rate on the vent, heart rate of 80. HEENT: Reveals unremarkable. NECK: Supple. The trach site is clean. HEART: Normal S1, S2. ABDOMEN: Soft, nontender. LUNGS: Have decreased breath sounds. LABORATORY EXAMINATION: Reveals a white count of 13,400, hemoglobin 18, white count is noted and creatinine 0.8. Review of orders reveals the patient to be on cefepime and linezolid. Microbiology reveals the cultures to be negative. Yesterday's chest x-ray unable to open report. ASSESSMENT AND PLAN: A 57-year-old female trached on the vent, continues to have low-grade fever, elevated WBCs, all cultures negative. Mild alk phos elevation. This 57-year-old female with systemic inflammatory response syndrome, seizures and is trached on a vent. Cultures negative, possible PRES syndrome versus acute cerebral infarct. We will discontinue the antibiotics and beta-lactam fevers and differential diagnosis. All cultures negative and follow the patient with you. We will discontinue cefepime and Zyvox. Marc Sales MD
[2018-06-01] MEDS: Venlafaxine 75 mg ER Cap PO SCH (09:22)
--- NOTE | 2018-06-01 10:59 | CP.CCUPN ---
<Joao Carter - Last Filed: 06/01/18 10:53> CCU Subjective - Physician Review Subjective (Free Text): Joao Carter Internal Medicine Resident- Progress Note on Behalf of Critical Care Team Subjective: Patient seen and examined at bedside. Tmax 101.1 F. Further subjective data cannot be ascertained at this time. 12 point ROS cannot be ascertained at this time due to altered mental status Physical Examination: - Constitutional Appears: No Acute Distress - Head Exam Head Exam: ATRAUMATIC, NORMAL INSPECTION, NORMOCEPHALIC - Eye Exam Eye Exam: sluggish pupillary response bilaterally - ENT Exam ENT Exam: moist mucus membrane - Neck Exam Neck exam: Tach site is clean, dry, and intact - Respiratory Exam Respiratory Exam: diminished breath sounds bilateral lower lobes - Cardiovascular Exam Cardiovascular Exam: RRR, +S1, +S2. absent: Gallop, JVD, Rubs - GI/Abdominal Exam GI & Abdominal Exam: Normal Bowel Sounds, Soft. absent: Tenderness - Neurological Exam Neurological exam: Altered mental status, Opens mouth intermittently, opens eyes spontaneously, Grimaces to painful stimuli. Spontaneous movements of her extremities - Skin Skin Exam: Dry, Intact, Normal Color, War Assessment and Plan: Patient is a 57 year old female with PMHx of HTN, uncontrolled DM2 complicated by retinopathy/gastroparesis, MDD, LAUREN, and TIA/CVA who was admitted for evaluation and treatment of seizure like activity. Patient suspected of experiencing aspiration. She was intubated/sedated due to an inability to protect her airway. Neurology AMS 2/2 Status Epilepticus - 05/19/18 CT Head without Contrast- No acute findings - 05/20/2019 CT Head without Contrast- No evidence of acute intracranial hemorrhage mass effect or midline shift. No significant interval changes noted - 05/22/2018 Brain MRI without Contrast- There are large areas of restricted diffusion/prolonged T2 signal changes within the the watershed zones of the occipito parietal and parietal and posterior frontal regions predominately involving the cortex.. Rule out watershed zone acute infarcts possibly related to prolonged seizures or hypertensive episode - 05/11/18 VEEG- moderate background slowing, left temporal interictal epileptiform discharges, left temporal slowing - continue on keppra 750mg IV q12 - neurology consulted- appreciate recommendations- posterior reversible encephalopathy syndrome (PRES)- minimal improvement in mental status Cardiovascular: Hypertensive, Hx of HTN - continue clonidine 0.2mg/24 hours - continue amlodipine 10mg PO hakeem - continue losartan 100mg PO daily as per nephro due to ANTONIO - cardiology consulted (Dr. Farmer)- appreciate recommendation SVT - continue on lopressor 50mg PO BID with holding parameters - continue digoxin 0.125mg PO Daily Resp: Respiratory Failure s/p Seizure Aspiration - Open Tracheostomy Skin Flap Isthmusectomy POD #1 - continue ventilator tidal volume 400, RR 12, FiO2 35% PEEP 5 - head of bed at 35 degrees - conservative fluid management - continue oral hygiene - GI protonix and DVT prophylaxis- scds Aspiration Pneumonia, HAP, Severe Sepsis - 05/27/2018- CXR improving right sided perihilar infiltrate - continue linezolid 600mg IV q12 and cefepime IV q8 - infectious disease consulted (Dr. Sales)- appreciate recommendations - remove central line as this could be a potential source of infection GI Hx of Gastroparesis - NPO - continue reglan 5mg mg PO QS - continue bentyl 10mg PO TID - continue jevity goal 30 - GI consulted (Dr. Zambrano)- appreciate recommendations GI ppx: - protonix 40mg PO daily Endo Hx DM - increased levemir 6 units q12h SC HS, BGs 90s - continue lispro insulin sliding scale low - fingersticks ACHS - maintain euglycemia - endocrinology consulted Dr Coe- appreciate recommendations Renal ANTONIO - resolved - nephrology consulted- appreciate recommendations Heme Anemia - microcytic - hemoglobin 8.5 stable - serum iron- low, tibc- low, ferritin- wnl , folate- wnl, b12- elevated, anemia of chronic disease vs iron deficiency anemia - recommend starting iron supplements DVT Ppx - SCD Patient case discussed with and plan approved by attending physician, Dr. Monet. CCU Objective - Vital Signs / Intake & Output Vital Signs (Last 4 hours): Vital Signs Temp Pulse Resp BP Pulse Ox 06/01/18 09:24 87 168/73 H 06/01/18 07:33 80 06/01/18 07:13 16 98 06/01/18 07:00 99.7 F H 80 167/81 H 98 Intake and Output (Last 8hrs): Intake & Output 05/31/18 06/01/18 06/01/18 22:59 06:59 14:59 Intake Total 2200 Output Total 1200 2000 Balance 1000 -1999 Intake: IV 700 Right Internal Jugular 400 abx 200 keppra 100 Oral 0 Tube Feeding 1500 Output: Urine 1200 2000 Urethral (Wan) 1200 2000 Other: # Bowel Movements 2 - Physical Exam Head: Positive for: Atraumatic, Normocephalic Pupils: Positive for: Sluggish, Other (Closes eyes upon shining light) Extroacular Muscles: Positive for: EOMI Conjunctiva: Positive for: Normal Mouth: Positive for: Moist Mucous Membranes Pharnyx: Positive for: Other (Intubated.) Nose (External): Positive for: Other (NGT in place) Neck: Positive for: Normal Range of Motion Respiratory/Chest: Positive for: Clear to Auscultation, Good Air Exchange. Negative for: Respiratory Distress, Accessory Muscle Use Cardiovascular: Positive for: Regular Rate and Rhythm, Normal S1, S2. Negative for: Murmurs Abdomen: Negative for: Tenderness, Distention, Peritoneal Signs Back: Positive for: Normal Inspection Upper Extremity: Positive for: Normal Inspection. Negative for: Cyanosis, Edema Lower Extremity: Positive for: Other (Right foot amputation noted). Negative for: Edema Neurological: Positive for: Motor Func Grossly Intact. Negative for: CN II-XII Intact, Speech Normal Skin: Positive for: Warm, Dry, Normal Color. Negative for: Rashes Psychiatric: Positive for: Alert. Negative for: Oriented x 3, Normal Insight, Normal Concentration - Medications Active Medications: Active Medications Generic Name Dose Route Start Last Admin Trade Name Freq PRN Reason Stop Dose Admin Acetaminophen 650 mg 05/31/18 00:11 05/31/18 17:43 Tylenol 325mg Tab PO 650 mg Q6H PRN Administration Fever >100.4 F Amlodipine Besylate 10 mg 05/24/18 11:13 06/01/18 09:24 Norvasc PO 10 mg DAILY PATTI Administration Clonidine HCl 1 patch 05/24/18 11:15 05/31/18 07:16 Catapres-Tts2 0.2 Mg/24 Hr TD 1 patch Q7D@0700 PATTI Administration Dicyclomine HCl 10 mg 05/19/18 18:00 06/01/18 09:23 Bentyl PO 10 mg TID PATTI Administration Digoxin 0.125 mg 05/30/18 10:03 05/31/18 14:19 Digoxin PO 0.125 mg 1400 PATTI Administration Ergocalciferol 1 cap 05/22/18 07:15 05/29/18 10:48 Drisdol 50,000 Intl Units Cap PO Not Given Q7D PATTI Gabapentin 300 mg 05/19/18 18:00 06/01/18 09:23 Neurontin PO 300 mg BID PATTI Administration Protocol Heparin Sodium (Porcine) 5,000 units 06/01/18 09:45 Heparin SC Q8 [facility] Protocol Levetiracetam 750 mg/ Sodium 107.5 mls @ 322.5 mls/hr 05/22/18 18:00 06/01/18 06:47 Chloride IV 322.5 mls/hr Q12H PATTI Administration Nicardipine HCl 20 mg in 200 mls @ 50 mls/hr 05/27/18 09:35 05/29/18 22:30 Cardene Iv Premix IV 5 mg/hr .Q4H PRN 50 mls/hr TITRATE PER MD ORDER Titration Protocol 5 MG/HR Insulin Detemir 6 unit 06/01/18 10:00 Levemir SC Q12 PATTI Insulin Human Lispro 0 units 05/28/18 14:06 06/01/18 07:30 Humalog Low SC Not Given ACHS [facility] Protocol Levalbuterol HCl 1.25 mg 05/20/18 08:00 06/01/18 07:14 Xopenex IH 1.25 mg [id number] PATTI Administration Losartan Potassium 100 mg 05/24/18 18:00 05/31/18 17:24 Cozaar PO 100 mg QPM PATTI Administration Metoclopramide HCl 5 mg 05/19/18 22:00 05/31/18 22:19 Reglan PO 5 mg HS PATTI Administration Metoprolol Tartrate 50 mg 05/30/18 12:26 06/01/18 09:24 Lopressor PO 50 mg BID PATTI Administration Midazolam HCl 1 mg 05/30/18 12:25 Versed Inj IVP Q4H PRN Anxiety Pantoprazole Sodium 40 mg 05/21/18 10:00 06/01/18 09:25 Protonix Inj IVP 40 mg DAILY PATTI Administration Venlafaxine HCl 75 mg 05/20/18 10:00 06/01/18 09:22 Effexor Xr PO 75 mg DAILY PATTI Administration - Patient Studies Lab Studies: Microbiology Studies 05/27/18 10:15 Blood Culture - Final Blood-Venous NO GROWTH AFTER 5 DAYS Gram Stain - Final TEST NOT PERFORMED 05/27/18 09:55 Blood Culture - Final Blood-Venous NO GROWTH AFTER 5 DAYS Lab Studies 06/01/18 06/01/18 05/31/18 Range/Units 05:20 05:20 21:38 WBC 13.4 H (4.5-11.0) 10^3/uL RBC 3.41 L (3.5-6.1) 10^6/uL Hgb 8.5 L (12.0-16.0) g/dL Hct 27.6 L (36.0-48.0) % MCV 80.9 (80.0-105.0) fl MCH 24.9 L (25.0-35.0) pg MCHC 30.8 L (31.0-37.0) g/dl RDW 15.0 H (11.5-14.5) % Plt Count 324 (120.0-450.0) 10^3/uL MPV 9.6 (7.0-11.0) fl Gran % 82.2 H (50.0-68.0) % Lymph % (Auto) 8.4 L (22.0-35.0) % [place] % (Auto) 7.2 H (1.0-6.0) % Eos % (Auto) 2.1 (1.5-5.0) % Baso % (Auto) 0.1 (0.0-3.0) % Gran # 11.00 H (1.4-6.5) Lymph # (Auto) 1.1 L (1.2-3.4) [place] # (Auto) 1.0 H (0.1-0.6) Eos # (Auto) 0.3 (0.0-0.7) Baso # (Auto) 0.02 (0.0-2.0) K/mm3 Sodium 139 (132-148) mmol/L Potassium 3.6 (3.6-5.0) mmol/L Chloride 110 H (98-107) mmol/L Carbon Dioxide 26 (21-33) mmol/L Anion Gap 7 L (10-20) BUN 18 (7-21) mg/dL Creatinine 0.8 (0.7-1.2) mg/dl Est GFR ( Amer) > 60 Est GFR (Non-Af Amer) > 60 POC Glucose (mg/dL) 71 (65-110) mg/dL Random Glucose 92 (70-110) mg/dL Calcium 7.9 L (8.4-10.5) mg/dL Total Bilirubin 0.2 (0.2-1.3) mg/dL AST 21 (14-36) U/L ALT 22 (7-56) U/L Alkaline Phosphatase 133 H (38-126) U/L Total Protein 5.6 L (5.8-8.3) g/dL Albumin 2.6 L (3.0-4.8) g/dL Globulin 3.0 gm/dL Albumin/Globulin Ratio 0.8 L (1.1-1.8) 05/31/18 05/31/18 Range/Units 16:02 11:39 WBC (4.5-11.0) 10^3/uL RBC (3.5-6.1) 10^6/uL Hgb (12.0-16.0) g/dL Hct (36.0-48.0) % MCV (80.0-105.0) fl MCH (25.0-35.0) pg MCHC (31.0-37.0) g/dl RDW (11.5-14.5) % Plt Count (120.0-450.0) 10^3/uL MPV (7.0-11.0) fl Gran % (50.0-68.0) % Lymph % (Auto) (22.0-35.0) % [place] % (Auto) (1.0-6.0) % Eos % (Auto) (1.5-5.0) % Baso % (Auto) (0.0-3.0) % Gran # (1.4-6.5) Lymph # (Auto) (1.2-3.4) [place] # (Auto) (0.1-0.6) Eos # (Auto) (0.0-0.7) Baso # (Auto) (0.0-2.0) K/mm3 Sodium (132-148) mmol/L Potassium (3.6-5.0) mmol/L Chloride (98-107) mmol/L Carbon Dioxide (21-33) mmol/L Anion Gap (10-20) BUN (7-21) mg/dL Creatinine (0.7-1.2) mg/dl Est GFR ( Amer) Est GFR (Non-Af Amer) POC Glucose (mg/dL) 86 104 (65-110) mg/dL Random Glucose (70-110) mg/dL Calcium (8.4-10.5) mg/dL Total Bilirubin (0.2-1.3) mg/dL AST (14-36) U/L ALT (7-56) U/L Alkaline Phosphatase (38-126) U/L Total Protein (5.8-8.3) g/dL Albumin (3.0-4.8) g/dL Globulin gm/dL Albumin/Globulin Ratio (1.1-1.8) Laboratory Results - last 24 hr 05/31/18 05/31/18 05/31/18 11:39 16:02 21:38 WBC RBC Hgb Hct MCV MCH MCHC RDW Plt Count MPV Gran % Lymph % (Auto) [place] % (Auto) Eos % (Auto) Baso % (Auto) Gran # Lymph # (Auto) [place] # (Auto) Eos # (Auto) Baso # (Auto) Sodium Potassium Chloride Carbon Dioxide Anion Gap BUN Creatinine Est GFR ( Amer) Est GFR (Non-Af Amer) POC Glucose (mg/dL) 104 86 71 Random Glucose Calcium Total Bilirubin AST ALT Alkaline Phosphatase Total Protein Albumin Globulin Albumin/Globulin Ratio 06/01/18 06/01/18 05:20 05:20 WBC 13.4 H RBC 3.41 L Hgb 8.5 L Hct 27.6 L MCV 80.9 MCH 24.9 L MCHC 30.8 L RDW 15.0 H Plt Count 324 MPV 9.6 Gran % 82.2 H Lymph % (Auto) 8.[address] [place] % (Auto) 7.2 H Eos % (Auto) 2.1 Baso % (Auto) 0.1 Gran # 11.00 H Lymph # (Auto) 1.[address] [place] # (Auto) 1.0 H Eos # (Auto) 0.3 Baso # (Auto) 0.02 Sodium 139 Potassium 3.6 Chloride 110 H Carbon Dioxide 26 Anion Gap 7 L BUN 18 Creatinine 0.8 Est GFR ( Amer) > 60 Est GFR (Non-Af Amer) > 60 POC Glucose (mg/dL) Random Glucose 92 Calcium 7.9 L Total Bilirubin 0.2 AST 21 ALT 22 Alkaline Phosphatase 133 H Total Protein 5.6 L Albumin 2.6 L Globulin 3.0 Albumin/Globulin Ratio 0.8 L Fingerstick Blood Sugar Results: 92 Critical Care Progress Note - Nutrition Nutrition: Nutrition Category Date Time Status NPO Diet [DIET] Diets 05/19/18 Dinner Ordered <Anil Monet - Last Filed: 06/01/18 13:59> CCU Objective - Vital Signs / Intake & Output Vital Signs (Last 4 hours): Vital Signs Temp Pulse BP Pulse Ox 06/01/18 12:11 100.9 F H 06/01/18 12:00 100.6 F H 76 156/73 H 98 06/01/18 11:00 100.9 F H 71 159/67 H 98 06/01/18 10:00 100.8 F H 68 135/58 L 98 Intake and Output (Last 8hrs): Intake & Output 05/31/18 06/01/18 06/01/18 22:59 06:59 14:59 Intake Total 2200 Output Total 1200 2000 Balance 1000 -2000 Intake: IV 700 Right Internal Jugular 400 abx 200 keppra 100 Oral 0 Tube Feeding 1500 Output: Urine 1200 2000 Urethral (Wan) 1200 2000 Other: # Bowel Movements 2 - Medications Active Medications: Active Medications Generic Name Dose Route Start Last Admin Trade Name Freq PRN Reason Stop Dose Admin Acetaminophen 650 mg 05/31/18 00:11 06/01/18 12:11 Tylenol 325mg Tab PO 650 mg Q6H PRN Administration Fever >100.4 F Amlodipine Besylate 10 mg 05/24/18 11:13 06/01/18 09:24 Norvasc PO 10 mg DAILY PATTI Administration Clonidine HCl 1 patch 05/24/18 11:15 05/31/18 07:16 Catapres-Tts2 0.2 Mg/24 Hr TD 1 patch Q7D@0700 PATTI Administration Dicyclomine HCl 10 mg 05/19/18 18:00 06/01/18 13:52 Bentyl PO 10 mg TID PATTI Administration Digoxin 0.125 mg 05/30/18 10:03 06/01/18 13:49 Digoxin PO 0.125 mg 1400 PATTI Administration Ergocalciferol 1 cap 05/22/18 07:15 05/29/18 10:48 Drisdol 50,000 Intl Units Cap PO Not Given Q7D PATTI Gabapentin 300 mg 05/19/18 18:00 06/01/18 09:23 Neurontin PO 300 mg BID PATTI Administration Protocol Heparin Sodium (Porcine) 5,000 units 06/01/18 09:45 06/01/18 13:52 Heparin SC 5,000 units Q8 PATTI Administration Protocol Levetiracetam 750 mg/ Sodium 107.5 mls @ 322.5 mls/hr 05/22/18 18:00 06/01/18 06:47 Chloride IV 322.5 mls/hr Q12H PATTI Administration Nicardipine HCl 20 mg in 200 mls @ 50 mls/hr 05/27/18 09:35 05/29/18 22:30 Cardene Iv Premix IV 5 mg/hr .Q4H PRN 50 mls/hr TITRATE PER MD ORDER Titration Protocol 5 MG/HR Insulin Detemir 6 unit 06/01/18 10:00 06/01/18 10:00 Levemir SC Not Given Q12 PATTI Insulin Human Lispro 0 units 05/28/18 14:06 06/01/18 11:30 Humalog Low SC Not Given ACHS [facility] Protocol Levalbuterol HCl 1.25 mg 05/20/18 08:00 06/01/18 13:09 Xopenex IH 1.25 mg [id number] PATTI Administration Losartan Potassium 100 mg 05/24/18 18:00 05/31/18 17:24 Cozaar PO 100 mg QPM PATTI Administration Metoclopramide HCl 5 mg 05/19/18 22:00 05/31/18 22:19 Reglan PO 5 mg HS PATTI Administration Metoprolol Tartrate 50 mg 05/30/18 12:26 06/01/18 09:24 Lopressor PO 50 mg BID PATTI Administration Midazolam HCl 1 mg 05/30/18 12:25 Versed Inj IVP Q4H PRN Anxiety Pantoprazole Sodium 40 mg 05/21/18 10:00 06/01/18 09:25 Protonix Inj IVP 40 mg DAILY PATTI Administration Venlafaxine HCl 75 mg 05/20/18 10:00 06/01/18 09:22 Effexor Xr PO 75 mg DAILY PATTI Administration - Patient Studies Lab Studies: Microbiology Studies 05/27/18 10:15 Blood Culture - Final Blood-Venous NO GROWTH AFTER 5 DAYS Gram Stain - Final TEST NOT PERFORMED 05/27/18 09:55 Blood Culture - Final Blood-Venous NO GROWTH AFTER 5 DAYS Lab Studies 06/01/18 06/01/18 06/01/18 Range/Units 11:48 05:20 05:20 WBC 13.4 H (4.5-11.0) 10^3/uL RBC 3.41 L (3.5-6.1) 10^6/uL Hgb 8.5 L (12.0-16.0) g/dL Hct 27.6 L (36.0-48.0) % MCV 80.9 (80.0-105.0) fl MCH 24.9 L (25.0-35.0) pg MCHC 30.8 L (31.0-37.0) g/dl RDW 15.0 H (11.5-14.5) % Plt Count 324 (120.0-450.0) 10^3/uL MPV 9.6 (7.0-11.0) fl Gran % 82.2 H (50.0-68.0) % Lymph % (Auto) 8.4 L (22.0-35.0) % [place] % (Auto) 7.2 H (1.0-6.0) % Eos % (Auto) 2.1 (1.5-5.0) % Baso % (Auto) 0.1 (0.0-3.0) % Gran # 11.00 H (1.4-6.5) Lymph # (Auto) 1.1 L (1.2-3.4) [place] # (Auto) 1.0 H (0.1-0.6) Eos # (Auto) 0.3 (0.0-0.7) Baso # (Auto) 0.02 (0.0-2.0) K/mm3 Sodium 139 (132-148) mmol/L Potassium 3.6 (3.6-5.0) mmol/L Chloride 110 H (98-107) mmol/L Carbon Dioxide 26 (21-33) mmol/L Anion Gap 7 L (10-20) BUN 18 (7-21) mg/dL Creatinine 0.8 (0.7-1.2) mg/dl Est GFR ( Amer) > 60 Est GFR (Non-Af Amer) > 60 POC Glucose (mg/dL) 142 H (65-110) mg/dL Random Glucose 92 (70-110) mg/dL Calcium 7.9 L (8.4-10.5) mg/dL Total Bilirubin 0.2 (0.2-1.3) mg/dL AST 21 (14-36) U/L ALT 22 (7-56) U/L Alkaline Phosphatase 133 H (38-126) U/L Total Protein 5.6 L (5.8-8.3) g/dL Albumin 2.6 L (3.0-4.8) g/dL Globulin 3.0 gm/dL Albumin/Globulin Ratio 0.8 L (1.1-1.8) 05/31/18 05/31/18 05/31/18 Range/Units 21:38 16:02 11:39 WBC (4.5-11.0) 10^3/uL RBC (3.5-6.1) 10^6/uL Hgb (12.0-16.0) g/dL Hct (36.0-48.0) % MCV (80.0-105.0) fl MCH (25.0-35.0) pg MCHC (31.0-37.0) g/dl RDW (11.5-14.5) % Plt Count (120.0-450.0) 10^3/uL MPV (7.0-11.0) fl Gran % (50.0-68.0) % Lymph % (Auto) (22.0-35.0) % [place] % (Auto) (1.0-6.0) % Eos % (Auto) (1.5-5.0) % Baso % (Auto) (0.0-3.0) % Gran # (1.4-6.5) Lymph # (Auto) (1.2-3.4) [place] # (Auto) (0.1-0.6) Eos # (Auto) (0.0-0.7) Baso # (Auto) (0.0-2.0) K/mm3 Sodium (132-148) mmol/L Potassium (3.6-5.0) mmol/L Chloride (98-107) mmol/L Carbon Dioxide (21-33) mmol/L Anion Gap (10-20) BUN (7-21) mg/dL Creatinine (0.7-1.2) mg/dl Est GFR ( Amer) Est GFR (Non-Af Amer) POC Glucose (mg/dL) 71 86 104 (65-110) mg/dL Random Glucose (70-110) mg/dL Calcium (8.4-10.5) mg/dL Total Bilirubin (0.2-1.3) mg/dL AST (14-36) U/L ALT (7-56) U/L Alkaline Phosphatase (38-126) U/L Total Protein (5.8-8.3) g/dL Albumin (3.0-4.8) g/dL Globulin gm/dL Albumin/Globulin Ratio (1.1-1.8) Laboratory Results - last 24 hr 05/31/18 05/31/18 05/31/18 11:39 16:02 21:38 WBC RBC Hgb Hct MCV MCH MCHC RDW Plt Count MPV Gran % Lymph % (Auto) [place] % (Auto) Eos % (Auto) Baso % (Auto) Gran # Lymph # (Auto) [place] # (Auto) Eos # (Auto) Baso # (Auto) Sodium Potassium Chloride Carbon Dioxide Anion Gap BUN Creatinine Est GFR ( Amer) Est GFR (Non-Af Amer) POC Glucose (mg/dL) 104 86 71 Random Glucose Calcium Total Bilirubin AST ALT Alkaline Phosphatase Total Protein Albumin Globulin Albumin/Globulin Ratio 06/01/18 06/01/18 06/01/18 05:20 05:20 11:48 WBC 13.4 H RBC 3.41 L Hgb 8.5 L Hct 27.6 L MCV 80.9 MCH 24.9 L MCHC 30.8 L RDW 15.0 H Plt Count 324 MPV 9.6 Gran % 82.2 H Lymph % (Auto) 8.[address] [place] % (Auto) 7.2 H Eos % (Auto) 2.1 Baso % (Auto) 0.1 Gran # 11.00 H Lymph # (Auto) 1.[address] [place] # (Auto) 1.0 H Eos # (Auto) 0.3 Baso # (Auto) 0.02 Sodium 139 Potassium 3.6 Chloride 110 H Carbon Dioxide 26 Anion Gap 7 L BUN 18 Creatinine 0.8 Est GFR ( Amer) > 60 Est GFR (Non-Af Amer) > 60 POC Glucose (mg/dL) 142 H Random Glucose 92 Calcium 7.9 L Total Bilirubin 0.2 AST 21 ALT 22 Alkaline Phosphatase 133 H Total Protein 5.6 L Albumin 2.6 L Globulin 3.0 Albumin/Globulin Ratio 0.8 L Critical Care Progress Note - Nutrition Nutrition: Nutrition Category Date Time Status NPO Diet [DIET] Diets 05/19/18 Dinner Ordered Assessment/Plan - Assessment and Plan (Free Text) Assessment: Patient seen and examined on rounds with resident, agree with note with following additions/exceptions: Patient is 57 year old female with PMHx of HTN, uncontrolled DM2 complicated by retinopathy/gastroparesis, MDD, LAUREN, and TIA/CVA who was admitted for evaluation and treatment of seizure like activity. Patient aspirated and was intubated due to an inability to protect her airway. Patient had failed multiple weaning trials, now s/p trach. Currently afebrile, BP stable in NAD MRI brain done, results noted CXR with RML/RLL PNA, on abx, ID following Seizure disorder Aspiration PNA Fever DM Hx TIA/CVA Renal failure, resolved PRES syndrome, watershed infarcts Recommend: - cont with low tidal ventilation, duonebs PRN, daily weaning trials - Broad spectrum Abx as per ID - feeds - DC TLC - re-culture - BP control - follow up renal - follow up neuro - FS control - GI ppx - DVT ppx, HSQ - Monitor in MICU Poor prognosis Awaiting LTACH placement
--- NOTE | 2018-06-01 11:12 | PN ---
DATE: 06/01/2018 SUBJECTIVE: She now has a trach, on the vent, NG tube feedings. She is opening her eyes a little bit. She moved her arm a little bit, that is about as much an improvement I have seen so far. She is more awake than yesterday because of the anesthesia from the trach. MEDICATIONS: She is on Bentyl, Cardene IV, Catapres, Cozaar, digoxin, Drisdol, Effexor, insulin, Levemir, Keppra, Lopressor, Neurontin, Norvasc, Protonix, Reglan, Tylenol, Versed, and Xopenex. PHYSICAL EXAMINATION: VITAL SIGNS: Temperature 99.7, 80 pulse, 167/81 blood pressure, 100% O2 sat on the vent. HEENT: Head, atraumatic, normocephalic. She does open her eyes. HEART: Regular rate. LUNGS: Decreased breath sounds, but clear. ABDOMEN: Soft. EXTREMITIES: No edema. LABORATORY DATA: She has a 30.4 white count, up a little bit, 8.5 hemoglobin, 27.6 hematocrit, and 324 platelets. Sodium 139, potassium 3.6, BUN 80, creatinine 0.8, GFR is greater than 60, sugar is 92, calcium 7.9, total bili 0.2, AST 29, ALT 22, alk phos 133, total protein 5.6. RECOMMENDATIONS: The next question is feeding tube. I am also thinking L-TAC to hopefully get her to improve from this watershed stroke and PRES and will see what Social Service could do to help us with heading in that direction. She is being seen by multiple physicians. We will check her labs tomorrow and will continue with aggressive treatment and care on Ting Monaco who is in deep trouble. Josafat Dent DO
--- NOTE | 2018-06-01 12:05 | PN ---
DATE: 06/01/2018 SUBJECTIVE: The patient remains on a ventilator. Her mental status has not significantly improved. PHYSICAL EXAMINATION: GENERAL: The patient remains on a ventilator. VITAL SIGNS: Stable, heart rate is in the 80s, normal sinus rhythm. NECK: Negative JVD. LUNGS: Decreased breath sounds. HEART: With S1, S2. EXTREMITIES: Without change. LABORATORY DATA: Noted. IMPRESSION: 1. Respiratory failure. 2. History of seizures. 3. Resolution of supraventricular tachycardia, on beta-blockers and digoxin. 4. Diabetes mellitus. 5. Altered mental status. PLAN: Given these findings, the patient's SVT is well controlled. The patient's long-term prognosis given her altered mental status is poor. Carter Farmer MD
[2018-06-01] MEDS: Digoxin 125 mcg (0.125 mg) Tab PO SCH (13:49)
--- NOTE | 2018-06-01 14:35 | PN ---
DATE: 06/01/2018 ENDOCRINOLOGY FOLLOWUP NOTE LOCATION: ICU 128, room 1. SUBJECTIVE: This is a 57-year-old female with recent acute respiratory failure following a seizure event and supervening possible aspiration pneumonitis and has now received a open tracheostomy and is being followed closely for hemodynamic monitoring in the ICU as noted. Her glycemic levels overnight have been low normal ranging from 71 to 86 and 104 mg/dL. Her chemistry showed a BUN of 18, sodium 139, potassium 3.6, chloride 110, CO2 of 26, glucose 92 and creatinine 0.3. So at this time, we will continue. So at this time, we will modify her basal insulin and lower the Levemir to 6 units subcu every 12 hours at 10:00 a.m. and 10:00 p.m. daily as given. We will obtain serial chemistries and supplement accordingly needed. We will follow. Tita Coe MD
--- NOTE | 2018-06-01 15:17 | CP.PCM.PN ---
Subjective - Date & Time of Evaluation Date of Evaluation: 06/01/18 Time of Evaluation: 15:15 - Subjective Subjective: Nephrology Consultation Note: Assessment: stable Acute Kidney Injury (N17.9) likely hemodynamic injury due to BP fluctuations, sepsis with shock: resolved urine retention likely neurogenic bladder ? seizure with abnormal EEG/MRI--PRESS, aspiration pneumonia hyperglycemia with uncontrolled DM Anemia , hypokalemia hypomagnesemia hyponatremia Diabetic chronic Kidney Disease (E11.22) Hypertensive Chronic Kidney Disease (I12.9) Chronic Kidney Disease (N18.1) Stage with ? mg proteinuria (R80.9) likely due to DM Type 1 diabetes Mellitus (>20 years) complicated by neuropathy, retinopathy and gastroparesis neurogenic bladder hx of TIA, GERD, kidney stones, hx of hemicolectomy severe pulmonary HTN Plan No acute need for renal replacement therapy at this time. Patient on losartan once stable renal function. other BP meds added by team already. supplement lytes as needed. Monitor Input/Output, daily weights and renal function with basic metabolic panel supplement lytes as needed started weekly vit D Neuro, ID following PRBC as needed for anemia. add iron and MVI once stable to take orally will add IV lasix 20 mg daily for few dasy as BP high and pt with pulm congestion on imaging, edema on exam Dose meds/antibiotics for improved GFR. Glycemic control Further work up/management as per primary team Thanks for allowing me to participate in care of your patient. Will follow patient with you. Please call if any Qs. had d/w team Dr Onesimo Guerra Office: [phone] Chief Complaint; seizure reason for consult: ANTONIO HPI: Pt is a 57 F with hx of Type 1 diabetes Mellitus (>20 years) complicated by neuropathy, retinopathy, gastroparesis, neurogenic bladder hypertension (years), TIA, GERD, kidney stones, hx of hemicolectomy presented with complaints of seizures and aspiration pneumonia. renal consult for ANTONIO evaluation and management. Denies OTC/herbal meds or NSAIDs Noted recent iodinated contrast exposure on 05/16/18. Noted obvious episodes of low BP (SBP 90s), high BP (SBP 200+) ROS: unable to obtain. Physical Examination: General Appearance: comfortable, in no acute respiratory distress, s/p trach Vitals reviewed and noted as below Head; Atraumatic, normocephalic ENT: s/p trach/vent Neck; supple no lymphadenopathy, no thyromegaly or bruit Lungs: Normal respiratory rate/effort. Breath sounds bilateral equal and bibasal crackle Heart: Normal rate. s1s2 normal. No rub or gallop. Extremities: 1-2+ edema. No varicose veins Neurological: Patient is waking up Skin: Warm and dry. Normal turgor. No rash. Palpitation: Normal elasticity for age Abdomen: Abdomen is soft. Bowel sounds +. There is no abdominal tenderness, no guarding/rigidity no organomegaly Psych: deferred MSK: no joint tenderness or swelling. Digits and nails normal, no deformity : kidney not palpable has gay Labs/imaging reviewed. Past medical history, past surgical history, family history, social history, allergy reviewed and noted as below Family hx: no hx of CKD. Rest non-contributory work up: UA 3+ protein with moderate blood a1c 10.2% CT abdomen: normal adrenal. hx of b/l nephrolithiasis. distended urinary bladder Objective - Vital Signs/Intake and Output Vital Signs (last 24 hours): Temp Pulse Resp BP Pulse Ox 99.9 F H 78 16 147/71 100 06/01/18 14:00 06/01/18 14:00 06/01/18 07:13 06/01/18 14:00 06/01/18 14:00 Intake and Output: 06/01/18 06/01/18 06:59 18:59 Output Total 1999 Balance -1999 - Medications Medications: Current Medications Acetaminophen (Tylenol 325mg Tab) 650 mg PO Q6H PRN PRN Reason: Fever >100.4 F Last Admin: 06/01/18 12:11 Dose: 650 mg Amlodipine Besylate (Norvasc) 10 mg PO DAILY [facility] Last Admin: 06/01/18 09:24 Dose: 10 mg Clonidine HCl (Catapres-Tts2 0.2 Mg/24 Hr) 1 patch TD Q7D@0700 [facility] Last Admin: 05/31/18 07:16 Dose: 1 patch Dicyclomine HCl (Bentyl) 10 mg PO TID [facility] Last Admin: 06/01/18 13:52 Dose: 10 mg Digoxin (Digoxin) 0.125 mg PO 1400 [facility] Last Admin: 06/01/18 13:49 Dose: 0.125 mg Ergocalciferol (Drisdol 50,000 Intl Units Cap) 1 cap PO Q7D [facility] Last Admin: 05/29/18 10:48 Dose: Not Given Furosemide (Lasix) 20 mg IVP DAILY [facility] Stop: 06/04/18 10:01 Gabapentin (Neurontin) 300 mg PO BID [facility]; Protocol Last Admin: 06/01/18 09:23 Dose: 300 mg Heparin Sodium (Porcine) (Heparin) 5,000 units SC Q8 [facility]; Protocol Last Admin: 06/01/18 13:52 Dose: 5,000 units Levetiracetam 750 mg/ Sodium (Chloride) 107.5 mls @ 322.5 mls/hr IV Q12H [facility] Last Admin: 06/01/18 06:47 Dose: 322.5 mls/hr Nicardipine HCl (Cardene Iv Premix) 20 mg in 200 mls @ 50 mls/hr IV .Q4H PRN; Protocol PRN Reason: TITRATE PER MD ORDER Last Titration: 05/29/18 22:30 Dose: 5 mg/hr, 50 mls/hr Insulin Detemir (Levemir) 6 unit SC Q12 [facility] Last Admin: 06/01/18 10:00 Dose: Not Given Insulin Human Lispro (Humalog Low) 0 units SC ACHS [facility]; Protocol Last Admin: 06/01/18 11:30 Dose: Not Given Levalbuterol HCl (Xopenex) 1.25 mg IH [id number] [facility] Last Admin: 06/01/18 13:09 Dose: 1.25 mg Losartan Potassium (Cozaar) 100 mg PO QPM [facility] Last Admin: 05/31/18 17:24 Dose: 100 mg Metoclopramide HCl (Reglan) 5 mg PO HS [facility] Last Admin: 05/31/18 22:19 Dose: 5 mg Metoprolol Tartrate (Lopressor) 50 mg PO BID [facility] Last Admin: 06/01/18 09:24 Dose: 50 mg Midazolam HCl (Versed Inj) 1 mg IVP Q4H PRN PRN Reason: Anxiety Pantoprazole Sodium (Protonix Inj) 40 mg IVP DAILY [facility] Last Admin: 06/01/18 09:25 Dose: 40 mg Venlafaxine HCl (Effexor Xr) 75 mg PO DAILY [facility] Last Admin: 06/01/18 09:22 Dose: 75 mg - Labs Labs: 06/01/18 05:20 06/01/18 05:20 PT 11.9 SECONDS (9.4-12.5) 05/29/18 15:40 INR 1.04 05/29/18 15:40 APTT 28.3 Seconds (25.1-36.5) 05/29/18 15:40
[2018-06-01] MEDS ORDERED: Morphine 2 mg/ml ISec IVP STA (17:14)
[2018-06-01] MEDS: Potassium Chloride 20 mEq/15 ml LIQ UD NG SCH (17:14)
[2018-06-02] MEDS: Levalbuterol 1.25 MG/3 ML Inhal Soln UD IH SCH ×4 (02:17→20:55)
[2018-06-02 05:40] VITALS: RESP 14
[2018-06-02 06:21] LABS: BASO # 0.05 K/mm3 (0.0-2.0); BASO % 0.5 % (0.0-3.0); EOS # 0.2 (0.0-0.7); EOS % 2.1 % (1.5-5.0); GRAN # 7.87 (1.4-6.5); GRAN % 76.9 % (50.0-68.0); HEMOGLOBIN 8.2 g/dL (12.0-16.0); LYMPH # 1.4 (1.2-3.4); LYMPH % 13.2 % (22.0-35.0); MEAN CELL VOLUME 81.3 fl (80.0-105.0); MEAN CORPUSCULAR HEMOGLOBIN 25.5 pg (25.0-35.0); MEAN CORPUSCULAR HGB CONC 31.4 g/dl (31.0-37.0); MEAN PLATELET VOLUME 9.2 fl (7.0-11.0); MONO # 0.8 (0.1-0.6); MONO % 7.3 % (1.0-6.0); RBC 3.21 10^6/uL (3.5-6.1); RED CELL DISTRIBUTION WIDTH 14.8 % (11.5-14.5); WHITE BLOOD COUNT 10.2 10^3/uL (4.5-11.0)
[2018-06-02 06:48] LABS: ALB/GLOB RATIO 0.8 (1.1-1.8); ALBUMIN 2.3 g/dL (3.0-4.8); ALT/SGPT 26 U/L (7-56); AST/SGOT 17 U/L (14-36); BLOOD UREA NITROGEN 20 mg/dL (7-21); CALCIUM 7.6 mg/dL (8.4-10.5); GFR NON-AFRICAN AMERICAN > 60
[2018-06-02] MEDS: Insulin Lispro (humaLOG) LOW Coverage SC SCH ×4 (08:34→21:22)
--- NOTE | 2018-06-02 10:00 | PN ---
DATE: 06/02/2018 PULMONARY NOTE SUBJECTIVE: The patient remains on the ventilator, and in the ICU. She does open her eyes at times. She does not respond to questions or commands. PHYSICAL EXAMINATION: VITAL SIGNS: Temperature is 99, pulse 61, respirations 14/12, blood pressure 131/75. Oxygen saturation on the ventilator is 100%. HEENT: Normocephalic. Positive tracheostomy. No JVD. CARDIOVASCULAR: Positive S1, S2. No S3 gallop. LUNGS: Decreased breath sounds at the bases. No rhonchi. No wheezing. GI: Abdomen is soft and nondistended. Bowel sounds are positive. 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 There is no edema in her legs. SKIN: No acute rash. NEUROLOGIC: Exam limited at the present time. IMPRESSION: 1. Seizure disorder. 2. Respiratory insufficiency. 3. Bilateral pneumonia. 4. Encephalopathy, rule out cerebrovascular accident. 5. Chronic obstructive pulmonary disease. 6. Diabetes mellitus. PLAN: The patient remains on the ventilator, and in the ICU. Again, she does open her eyes at times, but does not follow commands. I did discuss the case with the night nurse at length. The night nurse stated the patient had an uneventful night. On physical exam, there is no significant bronchospasm noted. In addition, the oxygen saturation on the ventilator is 100%. I will continue the current nebulizer treatments for now. The patient is now off antibiotic therapy - as per Infectious Disease. Input by Dr. Sales is noted. Inputs by Renal, Endocrine, and Cardiology are also noted. Repeat a.m. labs are pending. The patient remains critically ill with very poor prognosis. I will discuss the above with the entire ICU team in the next few moments. I will also discuss the above with Dr. Dent later this morning. Cesar Enriquez MD MTDD
--- NOTE | 2018-06-02 10:35 | PN ---
DATE: 06/02/2018 LOCATION: ICU 128, room 1. SUBJECTIVE: This is a 57-year-old female with recent uncontrolled type 2 insulin-requiring diabetes and developed acute aspiration pneumonitis with supervening acute respiratory failure and has since then been placed on an open tracheostomy and is being followed closely for hemodynamic monitoring and also from the endocrine view point for diabetic management. Her glycemic levels overnight have improved and have ranged from 164 to 182 mg/dL. Her chemistries today showed a BUN of 20, sodium 137, potassium 3.7, chloride 107, CO2 of 27, glucose 157, and creatinine 0.9. RECOMMENDATIONS: So, at this time, we will continue the low-dose basal insulin given as Levemir at 6 units subcu every 12 hours at 10 a.m. and 10 p.m. daily as given. We will also continue the low-dose correction scale using Humalog insulin given 4 times a day as indicated. We will obtain serial chemistries and supplement accordingly as needed. We will follow. Tita Coe MD
[2018-06-02] MEDS: Venlafaxine 75 mg ER Cap PO SCH (10:49)
[2018-06-02] MEDS: Insulin Detemir 100 units/ml Vial (Levemir) SC SCH ×2 (10:52→21:23)
[2018-06-02] MEDS: Potassium Chloride 20 mEq/15 ml LIQ UD NG SCH (10:57)
--- NOTE | 2018-06-02 11:08 | CP.CCUPN ---
<Joao Carter - Last Filed: 06/02/18 11:09> CCU Subjective - Physician Review Subjective (Free Text): Joao Carter Internal Medicine Resident- Progress Note on Behalf of Critical Care Team Subjective: Patient seen and examined at bedside. Tmax 100.4 F. Further subjective data cannot be ascertained at this time. 12 point ROS cannot be ascertained at this time due to altered mental status Physical Examination: - Constitutional Appears: No Acute Distress - Head Exam Head Exam: ATRAUMATIC, NORMAL INSPECTION, NORMOCEPHALIC - Eye Exam Eye Exam: sluggish pupillary response bilaterally - ENT Exam ENT Exam: moist mucus membrane - Neck Exam Neck exam: Tach site is clean, dry, and intact - Respiratory Exam Respiratory Exam: diminished breath sounds bilateral lower lobes - Cardiovascular Exam Cardiovascular Exam: RRR, +S1, +S2. absent: Gallop, JVD, Rubs - GI/Abdominal Exam GI & Abdominal Exam: Normal Bowel Sounds, Soft. absent: Tenderness - Neurological Exam Neurological exam: Altered mental status, Opens mouth intermittently, opens eyes spontaneously, Grimaces to painful stimuli. Spontaneous movements of her extremities - Skin Skin Exam: Dry, Intact, Normal Color, War Assessment and Plan: Patient is a 57 year old female with PMHx of HTN, uncontrolled DM2 complicated by retinopathy/gastroparesis, MDD, LAUREN, and TIA/CVA who was admitted for evaluation and treatment of seizure like activity. Patient suspected of experiencing aspiration. She was intubated/sedated due to an inability to protect her airway. Neurology AMS 2/2 Status Epilepticus - 05/19/18 CT Head without Contrast- No acute findings - 05/20/2019 CT Head without Contrast- No evidence of acute intracranial hemorrhage mass effect or midline shift. No significant interval changes noted - 05/22/2018 Brain MRI without Contrast- There are large areas of restricted diffusion/prolonged T2 signal changes within the the watershed zones of the occipito parietal and parietal and posterior frontal regions predominately involving the cortex.. Rule out watershed zone acute infarcts possibly related to prolonged seizures or hypertensive episode - 05/11/18 VEEG- moderate background slowing, left temporal interictal epileptiform discharges, left temporal slowing - continue on keppra 750mg IV q12 - neurology consulted- appreciate recommendations- posterior reversible encephalopathy syndrome (PRES)- minimal improvement in mental status Cardiovascular: Hypertensive, Hx of HTN - continue clonidine 0.2mg/24 hours - continue amlodipine 10mg PO hakeem - continue losartan 100mg PO daily as per nephro due to ANTONIO - cardiology consulted (Dr. Farmer)- appreciate recommendation SVT - continue on lopressor 50mg PO BID with holding parameters - continue digoxin 0.125mg PO Daily Resp: Respiratory Failure s/p Seizure Aspiration - open Tracheostomy Skin Flap Isthmusectomy POD #4 - continue ventilator tidal volume 400, RR 12, FiO2 35% PEEP 5 - head of bed at 35 degrees - conservative fluid management - continue oral hygiene - GI protonix and DVT prophylaxis- scds Aspiration Pneumonia, HAP, Severe Sepsis - 05/31/2017 CXR- stable tubes and lines. Stable pulmonary vascular congestion with similar perihilar infiltrates - infectious disease consulted (Dr. Sales)- appreciate recommendations - remove central line as this could be a potential source of infection GI Hx of Gastroparesis - NPO - continue reglan 5mg mg PO QS - continue bentyl 10mg PO TID - continue jevity - GI consulted (Dr. Zambrano)- appreciate recommendations GI ppx: - protonix 40mg PO daily Endo Hx DM - continue levemir 6 units q12h SC HS, BGs 90s - continue lispro insulin sliding scale low - fingersticks ACHS - maintain euglycemia - endocrinology consulted Dr Coe- appreciate recommendations Renal ANTONIO - resolved - nephrology consulted- appreciate recommendations Heme Anemia - microcytic - hemoglobin 8.5 stable - serum iron- low, tibc- low, ferritin- wnl , folate- wnl, b12- elevated, anemia of chronic disease vs iron deficiency anemia - recommend starting iron supplements DVT Ppx - SCD - subq heparin 5000 units q8h Dispo: social work coordinating transfer to LTAC Patient case discussed with and plan approved by attending physician, Dr. Monet. 06/02/18 10:50 CCU Objective - Vital Signs / Intake & Output Intake and Output (Last 8hrs): Intake & Output 06/01/18 06/02/18 06/02/18 22:59 06:59 14:59 Intake Total 1500 920 Output Total 500 900 Balance 1000 20 Weight 145 lb 9.6 oz Intake: IV 100 260 Right Internal Jugular 260 keppra 100 Tube Feeding 1400 660 Output: Urine 500 900 Urethral (Wan) 500 900 Other: # Bowel Movements 2 2 - Physical Exam Head: Positive for: Atraumatic, Normocephalic Pupils: Positive for: Sluggish, Other (Closes eyes upon shining light) Extroacular Muscles: Positive for: EOMI Conjunctiva: Positive for: Normal Mouth: Positive for: Moist Mucous Membranes Pharnyx: Positive for: Other (Intubated.) Nose (External): Positive for: Other (NGT in place) Neck: Positive for: Normal Range of Motion Respiratory/Chest: Positive for: Clear to Auscultation, Good Air Exchange. Negative for: Respiratory Distress, Accessory Muscle Use Cardiovascular: Positive for: Regular Rate and Rhythm, Normal S1, S2. Negative for: Murmurs Abdomen: Negative for: Tenderness, Distention, Peritoneal Signs Back: Positive for: Normal Inspection Upper Extremity: Positive for: Normal Inspection. Negative for: Cyanosis, Edema Lower Extremity: Positive for: Other (Right foot amputation noted). Negative for: Edema Neurological: Positive for: Motor Func Grossly Intact. Negative for: CN II-XII Intact, Speech Normal Skin: Positive for: Warm, Dry, Normal Color. Negative for: Rashes Psychiatric: Positive for: Alert. Negative for: Oriented x 3, Normal Insight, Normal Concentration - Medications Active Medications: Active Medications Generic Name Dose Route Start Last Admin Trade Name Freq PRN Reason Stop Dose Admin Acetaminophen 650 mg 05/31/18 00:11 06/01/18 12:11 Tylenol 325mg Tab PO 650 mg Q6H PRN Administration Fever >100.4 F Amlodipine Besylate 10 mg 05/24/18 11:13 06/01/18 09:24 Norvasc PO 10 mg DAILY PATTI Administration Clonidine HCl 1 patch 05/24/18 11:15 05/31/18 07:16 Catapres-Tts2 0.2 Mg/24 Hr TD 1 patch Q7D@0700 PATTI Administration Dicyclomine HCl 10 mg 05/19/18 18:00 06/01/18 17:12 Bentyl PO 10 mg TID PATTI Administration Digoxin 0.125 mg 05/30/18 10:03 06/01/18 13:49 Digoxin PO 0.125 mg 1400 PATTI Administration Ergocalciferol 1 cap 05/22/18 07:15 05/29/18 10:48 Drisdol 50,000 Intl Units Cap PO Not Given Q7D PATTI Furosemide 20 mg 06/01/18 15:15 06/01/18 17:11 Lasix IVP 06/04/18 10:01 20 mg DAILY PATTI Administration Gabapentin 300 mg 05/19/18 18:00 06/01/18 17:14 Neurontin PO 300 mg BID PATTI Administration Protocol Heparin Sodium (Porcine) 5,000 units 06/01/18 09:45 06/02/18 05:05 Heparin SC 5,000 units Q8 PATTI Administration Protocol Levetiracetam 750 mg/ Sodium 107.5 mls @ 322.5 mls/hr 05/22/18 18:00 06/02/18 05:06 Chloride IV 322.5 mls/hr Q12H PATTI Administration Nicardipine HCl 20 mg in 200 mls @ 50 mls/hr 05/27/18 09:35 05/29/18 22:30 Cardene Iv Premix IV 5 mg/hr .Q4H PRN 50 mls/hr TITRATE PER MD ORDER Titration Protocol 5 MG/HR Insulin Detemir 6 unit 06/01/18 10:00 06/01/18 21:51 Levemir SC 6 units Q12 PATTI Administration Insulin Human Lispro 0 units 05/28/18 14:06 06/02/18 08:34 Humalog Low SC 1 unit ACHS PATTI Administration Protocol Levalbuterol HCl 1.25 mg 05/20/18 08:00 06/02/18 07:39 Xopenex IH 1.25 mg [id number] PATTI Administration Losartan Potassium 100 mg 05/24/18 18:00 06/01/18 17:12 Cozaar PO 100 mg QPM PATTI Administration Metoclopramide HCl 5 mg 05/19/18 22:00 06/01/18 21:39 Reglan PO 5 mg HS PATTI Administration Metoprolol Tartrate 50 mg 05/30/18 12:26 06/01/18 17:12 Lopressor PO 50 mg BID PATTI Administration Midazolam HCl 1 mg 05/30/18 12:25 Versed Inj IVP Q4H PRN Anxiety Pantoprazole Sodium 40 mg 05/21/18 10:00 06/01/18 09:25 Protonix Inj IVP 40 mg DAILY PATTI Administration Potassium Chloride 20 meq 06/01/18 15:15 06/01/18 17:14 Potassium Chloride Oral Soln NG 06/04/18 10:01 20 meq DAILY PATTI Administration Venlafaxine HCl 75 mg 05/20/18 10:00 06/01/18 09:22 Effexor Xr PO 75 mg DAILY PATTI Administration - Patient Studies Lab Studies: Microbiology Studies 05/31/18 10:00 C. difficile Antigen & Toxins A,B - Final Stool 05/27/18 10:15 Blood Culture - Final Blood-Venous NO GROWTH AFTER 5 DAYS Gram Stain - Final TEST NOT PERFORMED 05/27/18 09:55 Blood Culture - Final Blood-Venous NO GROWTH AFTER 5 DAYS Lab Studies 06/02/18 06/02/18 06/02/18 Range/Units 05:30 05:30 05:14 WBC 10.2 D (4.5-11.0) 10^3/uL RBC 3.21 L (3.5-6.1) 10^6/uL Hgb 8.2 L (12.0-16.0) g/dL Hct 26.1 L (36.0-48.0) % MCV 81.3 (80.0-105.0) fl MCH 25.5 (25.0-35.0) pg MCHC 31.4 (31.0-37.0) g/dl RDW 14.8 H (11.5-14.5) % Plt Count 316 (120.0-450.0) 10^3/uL MPV 9.2 (7.0-11.0) fl Gran % 76.9 H (50.0-68.0) % Lymph % (Auto) 13.2 L (22.0-35.0) % Luce % (Auto) 7.3 H (1.0-6.0) % Eos % (Auto) 2.1 (1.5-5.0) % Baso % (Auto) 0.5 (0.0-3.0) % Gran # 7.87 H (1.4-6.5) Lymph # (Auto) 1.4 (1.2-3.4) Luce # (Auto) 0.8 H (0.1-0.6) Eos # (Auto) 0.2 (0.0-0.7) Baso # (Auto) 0.05 (0.0-2.0) K/mm3 Sodium 137 (132-148) mmol/L Potassium 3.7 (3.6-5.0) mmol/L Chloride 107 (98-107) mmol/L Carbon Dioxide 27 (21-33) mmol/L Anion Gap 6 L (10-20) BUN 20 (7-21) mg/dL Creatinine 0.9 (0.7-1.2) mg/dl Est GFR ( Amer) > 60 Est GFR (Non-Af Amer) > 60 POC Glucose (mg/dL) 182 H (65-110) mg/dL Random Glucose 157 H (70-110) mg/dL Calcium 7.6 L (8.4-10.5) mg/dL Total Bilirubin < 0.1 L (0.2-1.3) mg/dL AST 17 (14-36) U/L ALT 26 (7-56) U/L Alkaline Phosphatase 126 (38-126) U/L Total Protein 5.1 L (5.8-8.3) g/dL Albumin 2.3 L (3.0-4.8) g/dL Globulin 2.8 gm/dL Albumin/Globulin Ratio 0.8 L (1.1-1.8) 06/01/18 06/01/18 06/01/18 Range/Units 21:20 16:15 11:48 WBC (4.5-11.0) 10^3/uL RBC (3.5-6.1) 10^6/uL Hgb (12.0-16.0) g/dL Hct (36.0-48.0) % MCV (80.0-105.0) fl MCH (25.0-35.0) pg MCHC (31.0-37.0) g/dl RDW (11.5-14.5) % Plt Count (120.0-450.0) 10^3/uL MPV (7.0-11.0) fl Gran % (50.0-68.0) % Lymph % (Auto) (22.0-35.0) % Luce % (Auto) (1.0-6.0) % Eos % (Auto) (1.5-5.0) % Baso % (Auto) (0.0-3.0) % Gran # (1.4-6.5) Lymph # (Auto) (1.2-3.4) Luce # (Auto) (0.1-0.6) Eos # (Auto) (0.0-0.7) Baso # (Auto) (0.0-2.0) K/mm3 Sodium (132-148) mmol/L Potassium (3.6-5.0) mmol/L Chloride (98-107) mmol/L Carbon Dioxide (21-33) mmol/L Anion Gap (10-20) BUN (7-21) mg/dL Creatinine (0.7-1.2) mg/dl Est GFR ( Amer) Est GFR (Non-Af Amer) POC Glucose (mg/dL) 164 H 156 H 142 H (65-110) mg/dL Random Glucose (70-110) mg/dL Calcium (8.4-10.5) mg/dL Total Bilirubin (0.2-1.3) mg/dL AST (14-36) U/L ALT (7-56) U/L Alkaline Phosphatase (38-126) U/L Total Protein (5.8-8.3) g/dL Albumin (3.0-4.8) g/dL Globulin gm/dL Albumin/Globulin Ratio (1.1-1.8) Laboratory Results - last 24 hr 06/01/18 06/01/18 06/01/18 11:48 16:15 21:20 WBC RBC Hgb Hct MCV MCH MCHC RDW Plt Count MPV Gran % Lymph % (Auto) Luce % (Auto) Eos % (Auto) Baso % (Auto) Gran # Lymph # (Auto) Luce # (Auto) Eos # (Auto) Baso # (Auto) Sodium Potassium Chloride Carbon Dioxide Anion Gap BUN Creatinine Est GFR ( Amer) Est GFR (Non-Af Amer) POC Glucose (mg/dL) 142 H 156 H 164 H Random Glucose Calcium Total Bilirubin AST ALT Alkaline Phosphatase Total Protein Albumin Globulin Albumin/Globulin Ratio 06/02/18 06/02/18 06/02/18 05:14 05:30 05:30 WBC 10.2 D RBC 3.21 L Hgb 8.2 L Hct 26.1 L MCV 81.3 MCH 25.5 MCHC 31.4 RDW 14.8 H Plt Count 316 MPV 9.2 Gran % 76.9 H Lymph % (Auto) 13.2 L Luce % (Auto) 7.3 H Eos % (Auto) 2.1 Baso % (Auto) 0.5 Gran # 7.87 H Lymph # (Auto) 1.4 Luce # (Auto) 0.8 H Eos # (Auto) 0.2 Baso # (Auto) 0.05 Sodium 137 Potassium 3.7 Chloride 107 Carbon Dioxide 27 Anion Gap 6 L BUN 20 Creatinine 0.9 Est GFR ( Amer) > 60 Est GFR (Non-Af Amer) > 60 POC Glucose (mg/dL) 182 H Random Glucose 157 H Calcium 7.6 L Total Bilirubin < 0.1 L AST 17 ALT 26 Alkaline Phosphatase 126 Total Protein 5.1 L Albumin 2.3 L Globulin 2.8 Albumin/Globulin Ratio 0.8 L Fingerstick Blood Sugar Results: 157 Critical Care Progress Note - Nutrition Nutrition: Nutrition Category Date Time Status NPO Diet [DIET] Diets 05/19/18 Dinner Ordered <Anil Monet - Last Filed: 06/02/18 12:49> CCU Objective - Vital Signs / Intake & Output Vital Signs (Last 4 hours): Vital Signs Pulse BP 06/02/18 10:56 158/70 H 06/02/18 10:55 83 158/70 H 06/02/18 10:49 158/73 H Intake and Output (Last 8hrs): Intake & Output 06/01/18 06/02/18 06/02/18 22:59 06:59 14:59 Intake Total 1500 920 Output Total 500 900 Balance 1000 20 Weight 145 lb 9.6 oz Intake: IV 100 260 Right Internal Jugular 260 keppra 100 Tube Feeding 1400 660 Output: Urine 500 900 Urethral (Wan) 500 900 Other: # Bowel Movements 2 2 - Medications Active Medications: Active Medications Generic Name Dose Route Start Last Admin Trade Name Freq PRN Reason Stop Dose Admin Acetaminophen 650 mg 05/31/18 00:11 06/01/18 12:11 Tylenol 325mg Tab PO 650 mg Q6H PRN Administration Fever >100.4 F Amlodipine Besylate 10 mg 05/24/18 11:13 06/02/18 10:56 Norvasc PO 10 mg DAILY PATTI Administration Clonidine HCl 1 patch 05/24/18 11:15 05/31/18 07:16 Catapres-Tts2 0.2 Mg/24 Hr TD 1 patch Q7D@0700 PATTI Administration Dicyclomine HCl 10 mg 05/19/18 18:00 06/02/18 10:48 Bentyl PO 10 mg TID PATTI Administration Digoxin 0.125 mg 05/30/18 10:03 06/01/18 13:49 Digoxin PO 0.125 mg 1400 PATTI Administration Ergocalciferol 1 cap 05/22/18 07:15 05/29/18 10:48 Drisdol 50,000 Intl Units Cap PO Not Given Q7D PATTI Ferrous Gluconate 324 mg 06/02/18 14:00 Fergon PO TID PATTI Furosemide 20 mg 06/01/18 15:15 06/02/18 10:49 Lasix IVP 06/04/18 10:01 20 mg DAILY PATTI Administration Gabapentin 300 mg 05/19/18 18:00 06/02/18 10:56 Neurontin PO 300 mg BID PATTI Administration Protocol Heparin Sodium (Porcine) 5,000 units 06/01/18 09:45 06/02/18 05:05 Heparin SC 5,000 units Q8 PATTI Administration Protocol Levetiracetam 750 mg/ Sodium 107.5 mls @ 322.5 mls/hr 05/22/18 18:00 06/02/18 05:06 Chloride IV 322.5 mls/hr Q12H PATTI Administration Nicardipine HCl 20 mg in 200 mls @ 50 mls/hr 05/27/18 09:35 05/29/18 22:30 Cardene Iv Premix IV 5 mg/hr .Q4H PRN 50 mls/hr TITRATE PER MD ORDER Titration Protocol 5 MG/HR Insulin Detemir 6 unit 06/01/18 10:00 06/02/18 10:52 Levemir SC 6 units Q12 PATTI Administration Insulin Human Lispro 0 units 05/28/18 14:06 06/02/18 08:34 Humalog Low SC 1 unit ACHS PATTI Administration Protocol Levalbuterol HCl 1.25 mg 05/20/18 08:00 06/02/18 07:39 Xopenex IH 1.25 mg [id number] PATTI Administration Losartan Potassium 100 mg 05/24/18 18:00 06/01/18 17:12 Cozaar PO 100 mg QPM PATTI Administration Metoclopramide HCl 5 mg 05/19/18 22:00 06/01/18 21:39 Reglan PO 5 mg HS PATTI Administration Metoprolol Tartrate 50 mg 05/30/18 12:26 06/02/18 10:55 Lopressor PO 50 mg BID PATTI Administration Midazolam HCl 1 mg 05/30/18 12:25 Versed Inj IVP Q4H PRN Anxiety Pantoprazole Sodium 40 mg 05/21/18 10:00 06/02/18 10:57 Protonix Inj IVP 40 mg DAILY PATTI Administration Potassium Chloride 20 meq 06/01/18 15:15 06/02/18 10:57 Potassium Chloride Oral Soln NG 06/04/18 10:01 20 meq DAILY PATTI Administration Venlafaxine HCl 75 mg 05/20/18 10:00 06/02/18 10:49 Effexor Xr PO 75 mg DAILY PATTI Administration Vitamin B Complex/Vit C/Folic Acid 1 tab 06/03/18 08:00 Nephro-Dashawn NG 0800 PATTI - Patient Studies Lab Studies: Microbiology Studies 05/31/18 10:00 C. difficile Antigen & Toxins A,B - Final Stool 05/27/18 10:15 Blood Culture - Final Blood-Venous NO GROWTH AFTER 5 DAYS Gram Stain - Final TEST NOT PERFORMED 05/27/18 09:55 Blood Culture - Final Blood-Venous NO GROWTH AFTER 5 DAYS Lab Studies 06/02/18 06/02/18 06/02/18 Range/Units 05:30 05:30 05:14 WBC 10.2 D (4.5-11.0) 10^3/uL RBC 3.21 L (3.5-6.1) 10^6/uL Hgb 8.2 L (12.0-16.0) g/dL Hct 26.1 L (36.0-48.0) % MCV 81.3 (80.0-105.0) fl MCH 25.5 (25.0-35.0) pg MCHC 31.4 (31.0-37.0) g/dl RDW 14.8 H (11.5-14.5) % Plt Count 316 (120.0-450.0) 10^3/uL MPV 9.2 (7.0-11.0) fl Gran % 76.9 H (50.0-68.0) % Lymph % (Auto) 13.2 L (22.0-35.0) % Luce % (Auto) 7.3 H (1.0-6.0) % Eos % (Auto) 2.1 (1.5-5.0) % Baso % (Auto) 0.5 (0.0-3.0) % Gran # 7.87 H (1.4-6.5) Lymph # (Auto) 1.4 (1.2-3.4) Luce # (Auto) 0.8 H (0.1-0.6) Eos # (Auto) 0.2 (0.0-0.7) Baso # (Auto) 0.05 (0.0-2.0) K/mm3 Sodium 137 (132-148) mmol/L Potassium 3.7 (3.6-5.0) mmol/L Chloride 107 (98-107) mmol/L Carbon Dioxide 27 (21-33) mmol/L Anion Gap 6 L (10-20) BUN 20 (7-21) mg/dL Creatinine 0.9 (0.7-1.2) mg/dl Est GFR ( Amer) > 60 Est GFR (Non-Af Amer) > 60 POC Glucose (mg/dL) 182 H (65-110) mg/dL Random Glucose 157 H (70-110) mg/dL Calcium 7.6 L (8.4-10.5) mg/dL Total Bilirubin < 0.1 L (0.2-1.3) mg/dL AST 17 (14-36) U/L ALT 26 (7-56) U/L Alkaline Phosphatase 126 (38-126) U/L Total Protein 5.1 L (5.8-8.3) g/dL Albumin 2.3 L (3.0-4.8) g/dL Globulin 2.8 gm/dL Albumin/Globulin Ratio 0.8 L (1.1-1.8) 06/01/18 06/01/18 06/01/18 Range/Units 21:20 16:15 11:48 WBC (4.5-11.0) 10^3/uL RBC (3.5-6.1) 10^6/uL Hgb (12.0-16.0) g/dL Hct (36.0-48.0) % MCV (80.0-105.0) fl MCH (25.0-35.0) pg MCHC (31.0-37.0) g/dl RDW (11.5-14.5) % Plt Count (120.0-450.0) 10^3/uL MPV (7.0-11.0) fl Gran % (50.0-68.0) % Lymph % (Auto) (22.0-35.0) % Luce % (Auto) (1.0-6.0) % Eos % (Auto) (1.5-5.0) % Baso % (Auto) (0.0-3.0) % Gran # (1.4-6.5) Lymph # (Auto) (1.2-3.4) Luce # (Auto) (0.1-0.6) Eos # (Auto) (0.0-0.7) Baso # (Auto) (0.0-2.0) K/mm3 Sodium (132-148) mmol/L Potassium (3.6-5.0) mmol/L Chloride (98-107) mmol/L Carbon Dioxide (21-33) mmol/L Anion Gap (10-20) BUN (7-21) mg/dL Creatinine (0.7-1.2) mg/dl Est GFR ( Amer) Est GFR (Non-Af Amer) POC Glucose (mg/dL) 164 H 156 H 142 H (65-110) mg/dL Random Glucose (70-110) mg/dL Calcium (8.4-10.5) mg/dL Total Bilirubin (0.2-1.3) mg/dL AST (14-36) U/L ALT (7-56) U/L Alkaline Phosphatase (38-126) U/L Total Protein (5.8-8.3) g/dL Albumin (3.0-4.8) g/dL Globulin gm/dL Albumin/Globulin Ratio (1.1-1.8) Laboratory Results - last 24 hr 06/01/18 06/01/18 06/01/18 11:48 16:15 21:20 WBC RBC Hgb Hct MCV MCH MCHC RDW Plt Count MPV Gran % Lymph % (Auto) Luce % (Auto) Eos % (Auto) Baso % (Auto) Gran # Lymph # (Auto) Luce # (Auto) Eos # (Auto) Baso # (Auto) Sodium Potassium Chloride Carbon Dioxide Anion Gap BUN Creatinine Est GFR ( Amer) Est GFR (Non-Af Amer) POC Glucose (mg/dL) 142 H 156 H 164 H Random Glucose Calcium Total Bilirubin AST ALT Alkaline Phosphatase Total Protein Albumin Globulin Albumin/Globulin Ratio 06/02/18 06/02/18 06/02/18 05:14 05:30 05:30 WBC 10.2 D RBC 3.21 L Hgb 8.2 L Hct 26.1 L MCV 81.3 MCH 25.5 MCHC 31.4 RDW 14.8 H Plt Count 316 MPV 9.2 Gran % 76.9 H Lymph % (Auto) 13.2 L Luce % (Auto) 7.3 H Eos % (Auto) 2.1 Baso % (Auto) 0.5 Gran # 7.87 H Lymph # (Auto) 1.4 Luce # (Auto) 0.8 H Eos # (Auto) 0.2 Baso # (Auto) 0.05 Sodium 137 Potassium 3.7 Chloride 107 Carbon Dioxide 27 Anion Gap 6 L BUN 20 Creatinine 0.9 Est GFR ( Amer) > 60 Est GFR (Non-Af Amer) > 60 POC Glucose (mg/dL) 182 H Random Glucose 157 H Calcium 7.6 L Total Bilirubin < 0.1 L AST 17 ALT 26 Alkaline Phosphatase 126 Total Protein 5.1 L Albumin 2.3 L Globulin 2.8 Albumin/Globulin Ratio 0.8 L Critical Care Progress Note - Nutrition Nutrition: Nutrition Category Date Time Status NPO Diet [DIET] Diets 05/19/18 Dinner Ordered Assessment/Plan - Assessment and Plan (Free Text) Assessment: Patient seen and examined on rounds with resident, agree with note with following additions/exceptions: Patient is 57 year old female with PMHx of HTN, uncontrolled DM2 complicated by retinopathy/gastroparesis, MDD, LAUREN, and TIA/CVA who was admitted for evaluation and treatment of seizure like activity. Patient aspirated and was intubated due to an inability to protect her airway. Patient had failed multiple weaning trials, now s/p trach. Currently afebrile, BP stable in NAD MRI brain done, results noted CXR with RML/RLL PNA, on abx, ID following Seizure disorder Aspiration PNA Fever DM Hx TIA/CVA Renal failure, resolved PRES syndrome, watershed infarcts Recommend: - cont with low tidal ventilation, duonebs PRN, daily weaning trials - Broad spectrum Abx as per ID - feeds - DC TLC - Obtain PICC - BP control - follow up renal - follow up neuro - FS control - GI ppx - DVT ppx, HSQ - Monitor in MICU Poor prognosis Awaiting LTACH placement
--- NOTE | 2018-06-02 11:43 | PN ---
DATE: 06/02/2018 SUBJECTIVE: The patient remains on a ventilator. PHYSICAL EXAMINATION: VITAL SIGNS: Blood pressure is 131/75, heart rate is in the 60s. NECK: Negative JVD. LUNGS: Decreased breath sounds. HEART: Reveal S1, S2. EXTREMITIES: Without change. LABORATORY DATA: Hemoglobin is 8.2, BUN and creatinine are unremarkable. IMPRESSION: 1. No recurrence of supraventricular tachycardia. 2. Respiratory failure. 3. Altered mental status. 4. Diabetes mellitus. PLAN: Given these findings, we will continue the patient's present medications for her arrhythmia. There is no recurrence of her SVT. Carter Farmer MD
--- NOTE | 2018-06-02 12:54 | PN ---
DATE: 06/02/2018 SUBJECTIVE: She is in the Intensive Care Unit. She has a trach on the ventilator. She is now moving her head and the right arm and she opens her eyes. She is slowly coming back a little bit. She had a watershed CVA with PRES pneumonia, from a seizure. She has SIRS. MEDICATIONS: She is on Bentyl, Cardene, Catapres, Cozaar, digoxin, Drisdol, Effexor, insulin, heparin, Lasix, Levemir, Keppra, IV Lopressor, Neurontin, Norvasc, potassium replacement, Protonix, Reglan, Tylenol, Versed and Xopenex. She is in deep trouble. LABORATORY DATA: She has a 10.2 white count, best it has been, 8.2 hemoglobin, if it drops below 8, we will transfuse her. Hematocrit 26.1 with 368 platelets. Sodium 137, potassium 3.7, BUN 20, creatinine 0.9, GFR is greater than 60, sugar is 157, calcium 7.6. Total bili is less than 0.01. AST is 17, ALT is 26, alk phos 126. PHYSICAL EXAMINATION: HEENT: Head is atraumatic, normocephalic. Trach in place. NG tube in place. HEART: Regular rate. LUNGS: Decreased breath sounds. ABDOMEN: Soft. EXTREMITIES: No edema, but she is moving the right arm, moving her neck, opening her eyes which is a change from a week ago. ASSESSMENT AND PLAN: We will continue aggressive treatment and care. She is being seen by Pulmonary, Renal, Endocrinology, Cardiology, Telephone Triage Nurse, ENT. She is very sad. Hopefully, she can continue to wake up to her LTAC. Continue as per Intensive Care Unit. Josafat Dent DO MTDD
[2018-06-02] MEDS: Digoxin 125 mcg (0.125 mg) Tab PO SCH (15:28)
--- NOTE | 2018-06-02 15:52 | CP.PCM.PN ---
Subjective - Date & Time of Evaluation Date of Evaluation: 06/02/18 Time of Evaluation: 15:52 - Subjective Subjective: Nephrology Consultation Note: Assessment: stable Acute Kidney Injury (N17.9) likely hemodynamic injury due to BP fluctuations, sepsis with shock: resolved urine retention likely neurogenic bladder ? seizure with abnormal EEG/MRI--PRESS, aspiration pneumonia hyperglycemia with uncontrolled DM Anemia , hypokalemia hypomagnesemia hyponatremia Diabetic chronic Kidney Disease (E11.22) Hypertensive Chronic Kidney Disease (I12.9) Chronic Kidney Disease (N18.1) Stage with ? mg proteinuria (R80.9) likely due to DM Type 1 diabetes Mellitus (>20 years) complicated by neuropathy, retinopathy and gastroparesis neurogenic bladder hx of TIA, GERD, kidney stones, hx of hemicolectomy severe pulmonary HTN Plan No acute need for renal replacement therapy at this time. Patient on losartan once stable renal function. other BP meds added by team already. supplement lytes as needed. Monitor Input/Output, daily weights and renal function with basic metabolic panel supplement lytes as needed started weekly vit D Neuro, ID following PRBC as needed for anemia. add iron and MVI once stable to take orally will add IV lasix 20 mg daily for few dasy as BP high and pt with pulm congestion on imaging, edema on exam Dose meds/antibiotics for improved GFR. Glycemic control Further work up/management as per primary team for d/c to LTAC soon. can d/c diuretics at d/c Thanks for allowing me to participate in care of your patient. Will follow patient with you. Please call if any Qs. had d/w team Dr Onesimo Guerra Office: [phone] Chief Complaint; seizure reason for consult: ANTONIO HPI: Pt is a 57 F with hx of Type 1 diabetes Mellitus (>20 years) complicated by neuropathy, retinopathy, gastroparesis, neurogenic bladder hypertension (years), TIA, GERD, kidney stones, hx of hemicolectomy presented with complaints of seizures and aspiration pneumonia. renal consult for ANTONIO evaluation and management. Denies OTC/herbal meds or NSAIDs Noted recent iodinated contrast exposure on 05/16/18. Noted obvious episodes of low BP (SBP 90s), high BP (SBP 200+) ROS: unable to obtain. Physical Examination: General Appearance: comfortable, in no acute respiratory distress, s/p trach Vitals reviewed and noted as below Head; Atraumatic, normocephalic ENT: s/p trach/vent Neck; supple no lymphadenopathy, no thyromegaly or bruit Lungs: Normal respiratory rate/effort. Breath sounds bilateral equal and bibasal crackle Heart: Normal rate. s1s2 normal. No rub or gallop. Extremities: 1-2+ edema. No varicose veins Neurological: Patient is non communicative Skin: Warm and dry. Normal turgor. No rash. Palpitation: Normal elasticity for age Abdomen: Abdomen is soft. Bowel sounds +. There is no abdominal tenderness, no guarding/rigidity no organomegaly Psych: deferred MSK: no joint tenderness or swelling. Digits and nails normal, no deformity : kidney not palpable has gay Labs/imaging reviewed. Past medical history, past surgical history, family history, social history, allergy reviewed and noted as below Family hx: no hx of CKD. Rest non-contributory work up: UA 3+ protein with moderate blood a1c 10.2% CT abdomen: normal adrenal. hx of b/l nephrolithiasis. distended urinary bladder Objective - Vital Signs/Intake and Output Vital Signs (last 24 hours): Temp Pulse Resp BP Pulse Ox 99.0 F 83 14 158/70 H 100 06/02/18 05:59 06/02/18 10:55 06/02/18 04:00 06/02/18 10:56 06/02/18 05:59 Intake and Output: 06/02/18 06/02/18 06:59 18:59 Intake Total 920 Output Total 900 Balance 20 - Medications Medications: Current Medications Acetaminophen (Tylenol 325mg Tab) 650 mg PO Q6H PRN PRN Reason: Fever >100.4 F Last Admin: 06/01/18 12:11 Dose: 650 mg Amlodipine Besylate (Norvasc) 10 mg PO DAILY [facility] Last Admin: 06/02/18 10:56 Dose: 10 mg Clonidine HCl (Catapres-Tts2 0.2 Mg/24 Hr) 1 patch TD Q7D@0700 [facility] Last Admin: 05/31/18 07:16 Dose: 1 patch Dicyclomine HCl (Bentyl) 10 mg PO TID [facility] Last Admin: 06/02/18 10:48 Dose: 10 mg Digoxin (Digoxin) 0.125 mg PO 1400 [facility] Last Admin: 06/01/18 13:49 Dose: 0.125 mg Ergocalciferol (Drisdol 50,000 Intl Units Cap) 1 cap PO Q7D [facility] Last Admin: 05/29/18 10:48 Dose: Not Given Ferrous Gluconate (Fergon) 324 mg PO TID [facility] Furosemide (Lasix) 20 mg IVP DAILY [facility] Stop: 06/04/18 10:01 Last Admin: 06/02/18 10:49 Dose: 20 mg Gabapentin (Neurontin) 300 mg PO BID [facility]; Protocol Last Admin: 06/02/18 10:56 Dose: 300 mg Heparin Sodium (Porcine) (Heparin) 5,000 units SC Q8 [facility]; Protocol Last Admin: 06/02/18 05:05 Dose: 5,000 units Levetiracetam 750 mg/ Sodium (Chloride) 107.5 mls @ 322.5 mls/hr IV Q12H [facility] Last Admin: 06/02/18 05:06 Dose: 322.5 mls/hr Nicardipine HCl (Cardene Iv Premix) 20 mg in 200 mls @ 50 mls/hr IV .Q4H PRN; Protocol PRN Reason: TITRATE PER MD ORDER Last Titration: 05/29/18 22:30 Dose: 5 mg/hr, 50 mls/hr Insulin Detemir (Levemir) 6 unit SC Q12 [facility] Last Admin: 06/02/18 10:52 Dose: 6 units Insulin Human Lispro (Humalog Low) 0 units SC ACHS [facility]; Protocol Last Admin: 06/02/18 08:34 Dose: 1 unit Levalbuterol HCl (Xopenex) 1.25 mg IH [id number] [facility] Last Admin: 06/02/18 13:22 Dose: 1.25 mg Losartan Potassium (Cozaar) 100 mg PO QPM [facility] Last Admin: 06/01/18 17:12 Dose: 100 mg Metoclopramide HCl (Reglan) 5 mg PO HS [facility] Last Admin: 06/01/18 21:39 Dose: 5 mg Metoprolol Tartrate (Lopressor) 50 mg PO BID [facility] Last Admin: 06/02/18 10:55 Dose: 50 mg Midazolam HCl (Versed Inj) 1 mg IVP Q4H PRN PRN Reason: Anxiety Pantoprazole Sodium (Protonix Inj) 40 mg IVP DAILY [facility] Last Admin: 06/02/18 10:57 Dose: 40 mg Potassium Chloride (Potassium Chloride Oral Soln) 20 meq NG DAILY [facility] Stop: 06/04/18 10:01 Last Admin: 06/02/18 10:57 Dose: 20 meq Venlafaxine HCl (Effexor Xr) 75 mg PO DAILY [facility] Last Admin: 06/02/18 10:49 Dose: 75 mg Vitamin B Complex/Vit C/Folic Acid (Nephro-Dashawn) 1 tab NG 0800 [facility] - Labs Labs: 06/02/18 05:30 06/02/18 05:30 PT 11.9 SECONDS (9.4-12.5) 05/29/18 15:40 INR 1.04 05/29/18 15:40 APTT 28.3 Seconds (25.1-36.5) 05/29/18 15:40
[2018-06-02 16:04] VITALS: PULSE 60
--- NOTE | 2018-06-02 18:37 | PN ---
DATE: 06/02/2018 SUBJECTIVE: The patient is in bed, in no acute distress, nontoxic. The patient remains trached on the vent, poorly responsive. OBJECTIVE: VITAL SIGNS: Temperature is 99, blood pressure is 158/70, respiratory rate of 18. HEENT: Unremarkable. NECK: Supple. LUNGS: Have decreased breath sounds. HEART: Normal S1, S2. ABDOMEN: Soft, nontender. LABORATORY DATA: Reveals a white count of 10,000, hemoglobin of 8. LFTs are improving and urinalysis is noted. Influenza is negative. Microbiology was noted. Review of orders reveals the patient to be on no antibiotics. ASSESSMENT AND PLAN: This is a 57-year-old female trached on a vent, now afebrile, normal white count, severe systemic inflammatory response syndrome, posterior reversible encephalopathy syndrome versus acute cerebral infarct. Off of antibiotics, afebrile, normal white count. The patient is at risk for developing nosocomial infections. The patient who has had cerebrovascular accident and large areas of restricted diffusion, prolonged T2 on MRI. Dr. Dent's note is reviewed. note is reviewed. Dr. Enriquez's note is reviewed. We will follow with you. The patient is at risk for developing nosocomial infections. Marc Sales MD
[2018-06-02] MEDS ORDERED: Dextrose 50% SYRINGE Inj (50 ml) ONE (21:19)
[2018-06-02] MEDS ORDERED: Dextrose 50% SYRINGE Inj (50 ml) IVP ONE (21:21)
[2018-06-02 22:10] VITALS: BP 159/73; PULSE 71; O2SAT 100
[2018-06-02 22:16] VITALS: TEMP 98.2
[2018-06-03] MEDS ORDERED: Multivitamin Vitamin B Complex (Nephro-Vite) Tab NG SCH (08:00)
== END 2018-06-02 22:00 | DRG 4 ==
LOC: ED 09:33 → ERH 10:47 → ICU 05-20 02:47
PROVIDERS: ADMIT Family Medicine; ATTEND Family Medicine
PROC: 5A1955Z Respiratory Ventilation, Greater than 96 Consecutive Hours (ICD-10-PCS; 2018-05-19)
PROC: 0BH17EZ Insertion of Endotracheal Airway into Trachea, Via Natural or Artificial Opening (ICD-10-PCS; 2018-05-19)
PROC: 3E0F7GC Introduction of Other Therapeutic Substance into Respiratory Tract, Via Natural or Artificial Opening (ICD-10-PCS; 2018-05-20)
PROC: 05HM33Z Insertion of Infusion Device into Right Internal Jugular Vein, Percutaneous Approach (ICD-10-PCS; 2018-05-21)
PROC: 30233N1 Transfusion of Nonautologous Red Blood Cells into Peripheral Vein, Percutaneous Approach (ICD-10-PCS; 2018-05-23)
PROC: 3E03328 Introduction of Oxazolidinones into Peripheral Vein, Percutaneous Approach (ICD-10-PCS; 2018-05-27)
PROC: 0B110F4 Bypass Trachea to Cutaneous with Tracheostomy Device, Open Approach (ICD-10-PCS; principal; 2018-05-30 13:00)
DX: A41.9 Sepsis, unspecified organism (principal); J69.0 Pneumonitis due to inhalation of food and vomit; J96.01 Acute respiratory failure with hypoxia; G92 Toxic encephalopathy; R65.21 Severe sepsis with septic shock; I67.83 Posterior reversible encephalopathy syndrome; E11.65 Type 2 diabetes mellitus with hyperglycemia; I13.0 Hypertensive heart and chronic kidney disease with heart failure and stage 1 through stage 4 chronic kidney disease, or unspecified chronic kidney disease; N17.9 Acute kidney failure, unspecified; E87.1 Hypo-osmolality and hyponatremia; N39.0 Urinary tract infection, site not specified; G93.1 Anoxic brain damage, not elsewhere classified; I47.1 Supraventricular tachycardia; Z99.11 Dependence on respirator [ventilator] status; J44.0 Chronic obstructive pulmonary disease with (acute) lower respiratory infection; K22.10 Ulcer of esophagus without bleeding; E87.2 Acidosis; E11.22 Type 2 diabetes mellitus with diabetic chronic kidney disease; E11.21 Type 2 diabetes mellitus with diabetic nephropathy; E11.43 Type 2 diabetes mellitus with diabetic autonomic (poly)neuropathy; G40.401 Other generalized epilepsy and epileptic syndromes, not intractable, with status epilepticus; E11.51 Type 2 diabetes mellitus with diabetic peripheral angiopathy without gangrene; I25.10 Atherosclerotic heart disease of native coronary artery without angina pectoris; K31.84 Gastroparesis; E87.6 Hypokalemia; N31.9 Neuromuscular dysfunction of bladder, unspecified; E11.319 Type 2 diabetes mellitus with unspecified diabetic retinopathy without macular edema; N18.1 Chronic kidney disease, stage 1; I50.9 Heart failure, unspecified; E78.00 Pure hypercholesterolemia, unspecified; I27.20 Pulmonary hypertension, unspecified; E86.0 Dehydration; E83.42 Hypomagnesemia; D64.9 Anemia, unspecified; F32.9 Major depressive disorder, single episode, unspecified; F41.1 Generalized anxiety disorder; K58.9 Irritable bowel syndrome, unspecified; E86.1 Hypovolemia; G89.29 Other chronic pain; K21.9 Gastro-esophageal reflux disease without esophagitis; Z86.73 Personal history of transient ischemic attack (TIA), and cerebral infarction without residual deficits; Z91.19 Patient's noncompliance with other medical treatment and regimen; Z91.14 Patient's other noncompliance with medication regimen; Z79.4 Long term (current) use of insulin